=== PATIENT | male | born 1945 | race Caucasian/White ===

== ENCOUNTER 2024-02-04 20:49 | Emergency (ER) | payer MEDICARE, SELFPAY ==
[2024-02-04] VITALS (13 sets, daily range): BP systolic 155; BP diastolic 91; PULSE 73–86; RESP 15–26; TEMP 36.2; O2SAT 95–100
--- NOTE | ~2024-02-04 | XR_ITS ---
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 RESULT: Lines, tubes, and devices: None. Lungs and pleura: Streaky bibasilar scar/atelectasis, otherwise clear. Cardiomediastinal silhouette: Unremarkable. Other: No acute osseous or upper abdominal finding. IMPRESSION: No acute cardiopulmonary process. Reviewed, dictated and finalized at location K. AND DIE DESIGNER
--- NOTE | 2024-02-04 20:51 | ECG_ITS ---
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
[2024-02-04] MEDS: ASPIRIN 81 MG CHEWABLE TABLET 324 MG PO (21:02)
[2024-02-04 21:34] LABS: Basophils Absolute Auto 0.1 K/mm3 (0.0-0.1); Basophils Percent Auto 0.5 % (0.2-1.2); Eosinophils Absolute Auto 0.3 K/mm3 (0-0.3); Eosinophils Percent Auto 2.9 % (0-4.4); Hematocrit 42.9 % (42.0-52.0); Hemoglobin 13.8 g/dL (14.0-18.0); Immature Granulocyte Absolute 0.07 K/mm3 (0.00-0.031); Immature Granulocyte Percent A 0.6 % (0-0.5); Lymphocytes Absolute Auto 2.29 K/mm3 (0.9-3.2); Lymphocytes Percent Auto 21.2 % (18.3-44.2); Mean Corpuscular HGB Conc 32.2 g/dl (32-36); Mean Corpuscular Hemoglobin 29.4 pg (26-34); Mean Corpuscular Volume 91.5 fl (80-100); Mean Platelet Volume 10.3 fl (7.4-10.4); Monocytes Absolute Auto 1.4 K/mm3 (0.1-0.6); Monocytes Percent Auto 12.7 % (2.6-8.5); Neutrophils Absolute Auto 6.7 K/mm3 (1.3-6.7); Neutrophils Percent Auto 62.1 % (45.5-73.1); Platelet Count Result 276 k/mm3 (150-375); Red Blood Count 4.69 M/mm3 (4.6-6.20); Red Cell Distribution Width 14.4 % (11.5-14.5); White Blood Count 10.8 K/mm3 (4.5-10.0)
[2024-02-04 21:45] LABS: Alanine Aminotransferase 23 U/L (6-50); Albumin Level 4.1 g/dL (3.5-5.1); Alkaline Phosphatase 103 U/L (38-126); Anion Gap 8 mmol/L (4-12); Aspartate Amino Transferase 28 U/L (17-59); Bilirubin,Total 0.6 mg/dL (0.2-1.3); Blood Urea Nitrogen 24 mg/dL (9-20); Calcium 9.1 mg/dL (8.4-10.2); Carbon Dioxide 24 mmol/L (22-30); Chloride 105 mmol/L (98-107); Estimated CRCL calculation 54 ml/min; Estimated Glomerular Filt Rate 53; Glucose 197 mg/dL (65-110); Lipase 92 U/L (23-300); Potassium 4.1 mmol/L (3.4-5.0); Sodium 137 mmol/L (137-145)
[2024-02-04 21:47] LABS: Prothrombin Time 13.2 Seconds (11.1-14.7)
[2024-02-04 21:48] LABS: Partial Thromboplastin Time 29.5 Seconds (22.3-36.8)
[2024-02-04 21:56] LABS: Troponin I < 0.012 ng/mL (0.000-0.034)
--- NOTE | 2024-02-04 22:57 | ED.CHESTPAIN ---
HPI - Chest Pain General Chief Complaint: Chest Pain Stated Complaint: chest pain x30 minutes Time Seen by Provider: 02/04/24 22:03 History of Present Illness HPI narrative: This is a 78-year-old male with a past medical history including hypertension, diabetes, diabetic neuropathy. 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 Today presents with chest pain that was sudden onset about 30 minutes prior to arrival. He states it was a uncover any left-sided his chest and reports tingling in his left hand. Started just prior to arrival and he was not doing any exertional or strenuous. He states that the pain slowly diet down is presently gone. No associated back pain, shortness a breath, fever, chills, neck pain, recent injuries or illnesses. States he has had similar episodes happened to him previously but did not last quite as long as today which is why he sought medical evaluation. Related Data Home Medications ?Medication ?Instructions ?Recorded ?Confirmed ?Last Taken ?Type acyclovir 400 mg tablet 400 mg PO BID 07/12/23 07/19/23 Unknown History albuterol sulfate 90 mcg/actuation inhalation 07/12/23 07/19/23 Unknown History aerosol inhaler dapagliflozin propanediol 10 mg 10 mg PO DAILY 07/12/23 07/19/23 Unknown History tablet (Farxiga) doxycycline hyclate 100 mg capsule 100 mg PO DAILY 07/12/23 07/19/23 Unknown History insulin degludec 100 10 unit subcut DAILY 07/12/23 07/19/23 Unknown History unit-liraglutide 3.6 mg/mL(3 mL) subcutaneous pen (Asher 100/3.6) irbesartan 300 1 tablet PO DAILY 07/12/23 07/19/23 Unknown History mg-hydrochlorothiazide 12.5 mg tablet metformin 500 mg tablet 500 mg PO BID 07/12/23 07/19/23 Unknown History metoprolol tartrate 50 mg tablet 25 mg PO BID 07/12/23 07/19/23 Unknown History simvastatin 40 mg tablet 40 mg PO QPM 07/12/23 07/19/23 Unknown History tamsulosin 0.4 mg capsule mg PO 07/12/23 07/19/23 Unknown History B-complex with vitamin C 1 cap PO DAILY 07/19/23 07/19/23 Unknown History cholecalciferol (vitamin D3) 50 50 mcg PO DAILY 07/19/23 07/19/23 Unknown History mcg (2,000 unit) tablet coQ10 (ubiquinol) 100 mg capsule 300 mg PO DAILY 07/19/23 07/19/23 Unknown History (CoQmax Ubiquinol) finasteride 5 mg tablet 5 mg PO DAILY 07/19/23 07/19/23 Unknown History insulin lispro 100 unit/mL 1 sliding scale dose subcut DAILY 07/19/23 07/19/23 Unknown History subcutaneous pen (Admelog SoloStar U-100 Insulin lispro) subcutaneous insulin pump 07/19/23 07/19/23 Unknown History vit C,T-Ya-zajucu-lutein-zeaxan 60 1 cap PO DAILY 07/19/23 07/19/23 Unknown History mg-13.5 mg-15 mg-2 mg-6 mg capsule Allergies Allergy/AdvReac Type Severity Reaction Status Date / Time No Known Allergies Allergy Mild Verified 07/19/23 08:26 Review of Systems Review of Systems: As reviewed above in HPI [facility] Past Medical History Medical History Coronary artery disease BPH (benign prostatic hyperplasia) Diabetic neuropathy Type 2 diabetes mellitus Hyperlipidemia Hypertension Social History Social History Years smoked: 30 Smoking status: Former smoker Alcohol intake: current Alcohol use details: Occasionally Exam Narrative: GENERAL: Obese but overall well-appearing not any acute distress, answers all questions appropriately. HEAD: [Normocephalic, atraumatic.] EYES: [PERRLA and EOMI.] ENT: Nares clear, no rhinorrhea or epistaxis. Mucous membranes moist. NECK: Supple. CHEST: [Clear to auscultation. No respiratory distress.] HEART: [Regular rate and rhythm]. No murmur heard. Strong symmetric pulses with warm extremities 2+ radial and dorsalis pedis pulses. ABDOMEN: [Soft, nondistended], [nontender], [No rigidity or guarding] EXTREMITIES: Normal range of motion. [No edema.] SKIN: Warm, dry, no rash. NEURO: [No focal deficits]. Alert and oriented [x3.] PSYCH: [Normal mood and affect.] Course Vital Signs Vital signs: Vital Signs Temperature 36.2 C L 02/04/24 20:53 Pulse Rate 86 02/04/24 20:53 Respiratory Rate 16 02/04/24 20:53 Blood Pressure 155/91 H 02/04/24 20:53 Pulse Oximetry 100 02/04/24 20:53 Oxygen Delivery Room Air 02/04/24 20:53 Temperature 36.2 C L 02/04/24 20:53 Pulse Rate 70 02/05/24 02:07 Respiratory Rate 21 H 02/05/24 02:07 Blood Pressure 143/87 H 02/05/24 02:07 Pulse Oximetry 94 02/05/24 02:07 Oxygen Delivery Room Air 02/04/24 21:04 MDM - Chest Pain MDM Narrative Medical decision making narrative: 78-year-old male with history of diabetes, hypertension hyperlipidemia. Patient presents today with sudden onset chest discomfort that started 30 minutes prior to arrival and is now resolved without intervention. States he has had similar episodes like this in the past but follows with Cardiology once a year and has had cardiac catheterization recently without any concerns according to him. He otherwise appears well not any acute distress and has normal symmetric pulses and warm extremities without any auscultation concerns and clear lungs throughout. Overall reassuring vital signs without any significant blood pressure concerns, no tachycardia, hypoxia, tachypnea, fever. Given his age and risk factors a cardiac workup with serial troponins, EKG, chest x-ray, CBC CMP and lipase were ordered. He will be observed symptom recurrence and trending of his troponins until disposition made. Workup showed no significant leukocytosis, hemoglobin of 13.8, normal platelets. Negative troponin x2 without any delta. Coagulation studies within normal limits. Normal electrolyte profile, normal renal function panel, LFTs within normal limits. Negative lipase. Glucose slightly elevated 194. No acute cardiopulmonary process. EKG was nonischemic in nature, no ST segment elevation, depressions inversions or flattening. With his negative troponins, normal EKG and resolution of symptoms I believe he can safely discharged and follow up with his PCP and fluid jet cutter operator outpatient. Patient agreeable to this plan of care. Medical Records Data Attestation: I reviewed the patient's medical records. Lab Data Attestation: I reviewed the patient's lab results. 02/04/24 21:28 02/04/24 21:28 Labs: Lab Results 02/04/24 02/04/24 Range/Units 21:28 23:37 WBC 10.8 H (4.5-10.0) K/mm3 RBC 4.69 (4.6-6.20) M/mm3 Hgb 13.8 L (14.0-18.0) g/dL Hct 42.9 (42.0-52.0) % MCV 91.5 (80-100) fl MCH 29.4 (26-34) pg MCHC 32.2 (32-36) g/dl RDW 14.4 (11.5-14.5) % Plt Count 276 (150-375) k/mm3 MPV 10.3 (7.4-10.4) fl Immature Gran % (Auto) 0.6 H (0-0.5) % Neut % (Auto) 62.1 (45.5-73.1) % Lymph % (Auto) 21.2 (18.3-44.2) % [place] % (Auto) 12.7 H (2.6-8.5) % Eos % (Auto) 2.9 (0-4.4) % Baso % (Auto) 0.5 (0.2-1.2) % Lymph # (Auto) 2.29 (0.9-3.2) K/mm3 [place] # (Auto) 1.4 H (0.1-0.6) K/mm3 Eos # (Auto) 0.3 (0-0.3) K/mm3 Baso # (Auto) 0.1 (0.0-0.1) K/mm3 Abs Immat Gran (auto) 0.07 H (0.00-0.031) K/mm3 Absolute Neuts (auto) 6.7 (1.3-6.7) K/mm3 Absolute Nucleated RBC 0.000 (0.0-0.012) K/mm3 Nucleated RBC % 0.0 (0.0-0.2) % PT 13.2 (11.1-14.7) Seconds INR 1.0 APTT 29.5 (22.3-36.8) Seconds Sodium 137 (137-145) mmol/L Potassium 4.1 (3.4-5.0) mmol/L Chloride 105 (98-107) mmol/L Carbon Dioxide 24 (22-30) mmol/L Anion Gap 8 (4-12) mmol/L BUN 24 H (9-20) mg/dL Creatinine 1.30 (0.7-1.3) mg/dL Estim Creat Clear Calc 54 ml/min Estimated GFR 53 L (59 - ) Glucose 197 H (65-110) mg/dL Calcium 9.1 (8.4-10.2) mg/dL Total Bilirubin 0.6 (0.2-1.3) mg/dL AST 28 (17-59) U/L ALT 23 (6-50) U/L Alkaline Phosphatase 103 (38-126) U/L Troponin I < 0.012 < 0.012 (0.000-0.034) ng/mL Total Protein 8.0 (6.3-8.2) g/dL Albumin 4.1 (3.5-5.1) g/dL Lipase 92 (23-300) U/L Imaging Data Attestation: I personally reviewed and interpreted this imaging study as follows: My impression: Impressions Chest X-Ray 02/04/24 21:59 IMPRESSION: No acute cardiopulmonary process. ECG Data EKG #1: Attestation: I personally reviewed and interpreted this ECG as follows: ECG completion date: 02/04/24 ECG completion time: 23:36 Prior ECG tracings: available for review Interpretation: Normal sinus rhythm, no ST segment elevations, depressions inversions or flattening. Normal rate rhythm an axis, no ectopy, QRS of 94, QTC 4 4, MO interval 231. Overall sinus rhythm without any acute changes from baseline. No evidence of ischemia. Discharge Plan Discharge Clinical Impression: Atypical chest pain Patient Disposition: Home, Self-Care Condition: Stable Instructions: Antibiotic Form, Chest Pain (ED) Additional Instructions: Your cardiac workup was reassuring with no active or ongoing cardiac damage based on your labs. Your x-ray does not have any signs of infection or injury and you can Follow-up with your fluid jet cutter operator on outpatient basis. if you have any recurrence or persistent pain please seek re-evaluation at that time. Patient Language: Romanian Prescriptions: No Action tamsulosin 0.4 mg capsule PO metformin 500 mg tablet 500 mg PO BID doxycycline hyclate 100 mg capsule 100 mg PO DAILY irbesartan-hydrochlorothiazide 300-12.5 mg tablet 1 tablet PO DAILY acyclovir 400 mg tablet 400 mg PO BID simvastatin 40 mg tablet 40 mg PO QPM albuterol sulfate 90 mcg/actuation HFA aerosol inhaler inhalation metoprolol tartrate 50 mg tablet 25 mg PO BID Rx Instructions: Take 2 25mg in am then 1 25mg in pm dapagliflozin propanediol [Farxiga] 10 mg tablet 10 mg PO DAILY Xultophy 100/3.6 100 unit-3.6 mg /mL (3 mL) insulin pen 10 unit subcut DAILY insulin lispro [Admelog SoloStar U-100 Insulin] 100 unit/mL insulin pen 1 sliding scale dose subcut DAILY cholecalciferol (vitamin D3) 50 mcg (2,000 unit) tablet 50 mcg PO DAILY finasteride 5 mg tablet 5 mg PO DAILY coQ10 (ubiquinol) [CoQmax Ubiquinol] 100 mg capsule 300 mg PO DAILY B-complex with vitamin C Capsule 1 cap PO DAILY vit C,Q-Fx-zvalp-lutein-zeaxan 60 mg-13.5 mg- 15 mg-2 mg-6 mg capsule 1 cap PO DAILY (DME) subcutaneous insulin pump Misc See Rx Instructions .Route Rx Instructions: As directed Follow-up/Referrals: Serg,Ronaldo Cortez MD [Primary Care Provider] - Time of Disposition: 01:42 Quality HEART score for chest pain patients History: slightly suspicious ECG: normal Age: > or = to 65 years Risk factors: 1 or 2 risk factors Troponin: < or = to 1x normal limit Heart score: 3
--- NOTE | 2024-02-04 23:33 | ECG_ITS ---
Test Date: 2024-02-04 23:36:38 Measurements Intervals [place] Rate: 73 P: 54 MN: 231 QRS: 46 QRSD: 94 T: 78 QT: 366 QTc: 404 Interpretive Statements SINUS RHYTHM WITH FIRST DEGREE AV BLOCK NONSPECIFIC T-WAVE ABNORMALITY Compared to ECG 02/04/2024 20:59:49 No significant changes Electronically Signed On 02-05-2024 12:02:28 INTEGRITY DIRECTOR by Aryan Campos M.D.
[2024-02-05] VITALS (8 sets, daily range): BP systolic 143; BP diastolic 87; PULSE 70–74; RESP 21–23; O2SAT 94–96
[2024-02-05 00:19] LABS: Troponin I < 0.012 ng/mL (0.000-0.034)
--- OUTSIDE RECORDS SUMMARY | 2024-02-10 01:42 | XMS_ITS | Data Portability ---
Author Organization [facility], Main Office Address [address] [place] [address] Care Team Providers Care Credit Portfolio Advisor Name Role Phone JASEN HUERTAS Primary Care Provider [phone] Assessment No assessment recorded. Plan of Treatment Reminders Order Date Submit Date Provider Last Modified By Organization Details Last Modified Time Details Appointments None recorded. Lab None recorded. Referral sleep medicine referral - Established PAP for 30 years, new machine 12/16/22 needs compliance no issues 2022 023 [email or web address] 25 Ghislaine Izquierdo, [address] [facility] [address], [place], [address], 10:08:56 Procedures None recorded. Surgeries None recorded. Imaging None recorded. Medication Orders None recorded. Patient TargetsNo targets recorded. Patient InstructionsNo instructions recorded. Reason for Referral Sleep Medicine Referral for Obstructive sleep apnea syndrome Established PAP for 30 years, new machine 12/16/22 needs compliance no issues Referring Physician: Lexis Mensah, Pulmonary Disease, Encounter Date: 01/03/2023 Results Created Date Observation Date Name Description Value Unit Range Abnormal Flag Note LastModifiedBy Organization Detail LastModifiedTime 06/18/1912/03/2009 sleep study , diagn ostic (PROC ) No observ ation record ed. [id number] [facility] [address], [place], [address], 04/20/2022 02:46:47 06/18/19 22 05/04/2021 CPAP compl iance * No observ ation record ed. [id number] Not Available 04/20/2022 02:46:47 Result Notes None recorded. Problems Name Problem SNOMED Code Status Onset Date Resolution Date Notes Provider Name and Address Organization Details Recorded Time Body mass index 30+ - obesity [id number] Active [address] [facility] 3 02:39:47 Obstructive sleep apnea syndrome 07357329 Active Not Available [facility] 3 02:39:47 Problem Notes None recorded. Procedures Surgical History None recorded. Imaging Results Imaging Date Name Status LastModified by Organiz ation Details LastModified Time 12/03/2009 sleep study, diagnostic (PROC) completed [id number] [facility] [address], [place], [address], 04/20/2022 02:46:47 05/04/2021 CPAP compliance* completed [id number] Information not available 04/20/2022 02:46:47 Procedure Notes None recorded. Medical Equipment None Reported. Medications Name Sig Start Date Stop Date Status Note LastModified by Organization Details LastModified Time metformin 500 mg tablet TAKE 1 TABLET BY MOUTH TWICE A DAY WITH MEALS active Not Available Not Available No t Available doxycycline hyclate 100 mg capsule PLEASE SEE ATTACHED FOR DETAILED DIRECTION S active Not Available Not Available No t Available irbesartan 150 mg-hydrochl orothiazide 12.5 mg tablet 05/20 completed Not Available Not Available Not Available azithromyci n 250 mg tablet active Not Available Not Available Not Available valacyclovi r 1 gram tablet 11/08 completed Not Available Not Available Not Available hydrocodone 5 mg-acetamin ophen 325 mg tablet TK 1 TO 2 T PO Q 4 TO 6 H PRN FOR PAIN 05/14 completed Not Available Not Available Not Available Anucort-HC 25 mg suppository active Not Available Not Available Not Available acyclovir 400 mg tablet TAKE 1 TABLET (400 MG TOTAL) BY MOUTH 2 TIMES A DAY active Not Available Not Available No t Available simvastatin 40 mg tablet TAKE 1 TABLET BY MOUTH EVERY DAY AT NIGHT active Not Available Not Available No t Available ketorolac 0.5 % eye drops ADMINISTE R 1 DROP IN OPERATIVE EYE FOUR TIMES DAILY X2 WEEKS THEN TWICE DAILY X2 WEEKS AND STOP. active Not Available Not Available No t Available alprazolam 0.25 mg tablet 05/17 completed Not Available Not Available Not Available prednisolon e acetate 1 % eye drops,suspe nsion ADMINISTE R 1 DROP IN OPERATIVE EYE FOUR TIMES DAILY X2 WEEKS THEN 1 DROP TWICE DAILY X2 WEEKS AND STOP. active Not Available Not Available No t Available Nitrostat 0.4 mg sublingual tablet active Not Available Not Available Not Available tamsulosin 0.4 mg capsule TAKE 1 CAPSULE BY MOUTH EVERYDAY AT BEDTIME active Not Available Not Available No t Available benzonatate 100 mg capsule 11/08 completed Not Available Not Available Not Available cephalexin 500 mg capsule 05/20 completed Not Available Not Available Not Available simvastatin 20 mg tablet 05/14 completed Not Available Not Available Not Available WelChol 625 mg tablet active Not Available Not Available No t Available irbesartan 300 mg-hydrochl orothiazide 12.5 mg tablet TAKE 1 TABLET BY MOUTH EVERY DAY active Not Available Not Available No t Available metoprolol tartrate 50 mg tablet TAKE 2 TABLETS (100 MG TOTAL) BY MOUTH EVERY MORNING AND 1 TABLET (50 MG TOTAL) DAILY WITH LUNCH. active Not Available Not Available No t Available gabapentin 100 mg capsule active Not Available Not Available Not Available cefuroxime axetil 500 mg tablet active Not Available Not Available No t Available methylpredn isolone 4 mg tablets in a dose pack FPD 05/20 completed Not Available Not Available Not Available albuterol sulfate HFA 90 mcg/actuati on aerosol inhaler INHALE 2 PUFFS BY MOUTH EVERY 4 HOURS NEEDED FOR WHEEZING OR SHORTNESS OF BREATH active Not Available Not Available No t Available metformin ER 500 mg tablet,exte nded release 24 hr active Not Available Not Available Not Available finasteride 5 mg tablet active Not Available Not Available Not Available insulin lispro (U-100) 100 unit/mL subcutaneou s pen PLEASE SEE ATTACHED FOR DETAILED DIRECTION S active Not Available Not Available No t Available moxifloxaci n 0.5 % eye drops active Not Available Not Available Not Available valsartan 320 mg-hydrochl orothiazide 25 mg tablet 05/17 completed Not Available Not Available Not Available valsartan 320 mg-hydrochl orothiazide 12.5 mg tablet active Not Available Not Available Not Available BD Ultra-Fine Short Pen Needle 31 gauge x 16 USE WITH INSULIN PEN UP TO QID active Not Available Not Available No t Available CoQ10 SG 100 100 mg-100 unit capsule Take 1 capsule every day by oral route as directed. 2015 active Not Available Not Available Not Avai lable peg 3350-electr olytes 236 gram-22.74 gram-6.74 gram-5.86 gram solution TAKE DIRECTED. OFFICE HAS MAILED OUT INSTRUCTI ONS FOR YOUR COLONOSCO PY PREP. active Not Available Not Available No t Available Lantus Solostar U-100 Insulin 100 unit/mL (3 mL) subcutaneou s pen active Not Available Not Available Not Available Vitamin D3 50 mcg (2,000 unit) capsule Take 1 capsule every day by oral route as directed. 2015 active Not Available Not Available Not Avai lable OneTouch Verio test strips active Not Available Not Available Not Available Kale Chewable Low Dose Aspirin 81 mg tablet Chew 1 tablet every day by oral route as directed. 05/17 completed Not Available Not Available Not Available Victoza 3-Fortunato 0.6 mg/0.1 mL (18 mg/3 mL) subcutaneou s pen injector 05/25 completed Not Available Not Available Not Available Virtussin AC 10 mg-100 mg/5 mL oral liquid active Not Available Not Available Not Available Farxiga 10 mg tablet TAKE 1 TABLET BY MOUTH EVERY DAY active Not Available Not Available No t Available Farxiga 5 mg tablet active Not Available Not Available No t Available Invokamet 50 mg-1,000 mg tablet 11/08 completed Not Available Not Available Not Available Invokamet 150 mg-1,000 mg tablet active Not Available Not Available Not Available Contrave 8 mg-90 mg tablet,exte nded release TK 2 TS PO BID QAM AND QPM active Not Available Not Available No t Available Trulicity 1.5 mg/0.5 mL subcutaneou s pen injector 11/08 completed Not Available Not Available Not Available Xultophy 100/3.6 100 unit-3.6 mg/mL (3 mL) subcutaneou s insulin pen INJECT 50 UNITS INTO THE SKIN DAILY active Not Available Not Available No t Available Synjardy XR 25 mg-1,000 mg tablet, extended release active Not Available Not Available Not Available Fluzone High-Dose (PF) 180 mcg/0.5 mL intramuscul ar syringe active Not Available Not Available N ot Available Shingrix (PF) 50 mcg/0.5 mL intramuscul ar suspension, kit active Not Available Not Available Not Available Fluzone High-Dose 5835-6981 (PF) 180 mcg/0.5 mL intramuscul ar syringe ADM 0.5ML IM UTD active Not Available Not Available No t Available BinaxNOW COVID-19 Ag Self Test kit Use as Directed on the Package active Not Available Not Available No t Available Paxlovid 300 mg (150 mg x 2)-100 mg tablets in a dose pack TAKE 2 TABLETS (NIRMATRE LVIR) AND TAKE 1 TABLET (RITONAVI R) BY MOUTH TWICE A DAY FOR 5 DAYS active Not Available Not Available No t Available Vitals Date Recorded Body mass index (BMI) Body height Oxygen saturation Oxygen saturation in Arterial blood by Pulse oximetry Heart rate Body temperature Body weight Provider Name and Address Organization Details Last Updated DateTime 1 35 kg/m2 180.34 cm 97 % 97 % 71 /min 97.5 [degF] 160256. 68 g Not Available [facility] 3 02:38:27 Date Recorded Body mass index (BMI) Body height Oxygen saturation Oxygen saturation in Arterial blood by Pulse oximetry Heart rate Body temperature Body weight Systolic blood pressure Diastolic blood pressure Provider Name and Address Organization Details Last Updated DateTime 2 37.4 kg/m2 180.34 cm 94 % 94 % 79 /min 97.2 [degF] 057174. 76 g 128 mm[Hg] 62 mm[Hg] Not Available [facility] 3 02:38:26 Date Recorded Body mass index (BMI) Body height Oxygen saturation Oxygen saturation in Arterial blood by Pulse oximetry Heart rate Body temperature Body weight Systolic blood pressure Diastolic blood pressure Provider Name and Address Organization Details Last Updated DateTime 3 36.7 kg/m2 180.34 cm 96 % 96 % 79 /min 96.4 [degF] 921056. 79 g 150 mm[Hg] 64 mm[Hg] Not Available [facility] 3 02:38:26 Date Recorded Body height Body mass index (BMI) Body weight Heart rate Oxygen saturation Oxygen saturation in Arterial blood by Pulse oximetry Systolic blood pressure Diastolic blood pressure Provider Name and Address Organization Details Last Updated DateTime 3 180.34 cm 35.6 kg/m2 238316. 05 g 75 /min 96 % 96 % 132 mm[Hg] 58 mm[Hg] Supriya Roque S [place] Hopela [facility] 3 10:00:20 Date Recorded Body height Body temperature Provider N mainor and Address Organization Details Last Updated DateTime 01/03/2023 180.34 cm 97.5 [degF] Audrey Cooper MA [facility] Hopela [facility] 01/03/2023 09:41:45 Date Recorded Body mass index (BMI) Body weight Heart rate Oxygen saturation Oxygen saturation in Arterial blood by Pulse oximetry Systolic blood pressure Diastolic blood pressure Provider Name and Address Organization Details Last Updated DateTime 3 37 kg/m2 936925. 98 g 87 /min 95 % 95 % 130 mm[Hg] 70 mm[Hg] Rosalia Carter MA [facility] Hopela [facility] 3 09:49:38 Social History Question Answer Notes LastModified by Organizat ion Details LastModified Time Tobacco Smoking Status Former Smoker quit 1990 Not Available [facility] 04/20/2022 02:33:40 What Is Your Level Of Alcohol Consumption? Occasional [id number] Information not available 04/20/2022 What Is Your Level Of Caffeine Consumption? Occasional [id number] Information not available 04/20/2022 How Much Tobacco Do You Chew? None [id number] Information not available 04/20/2022 In The 14 Days Before Symptom Onset, Have You Had Close Contact With A Laboratory-confir med COVID-19 While That Case Was Ill? Yes [id number] Information not available 04/20/2022 In The 14 Days Before Symptom Onset, Have You Had Close Contact With A Person Who Is Under Investigation For COVID-19 While That Person Was Ill? Yes [id number] Information not available 04/20/2022 Which Illicit Or Recreational Drugs Have You Used? None [id number] Information not available 04/20/2022 Do You Or Have You Ever Used E-cigarettes Or Vape? Never Used Electronic Cigarettes [id number] Information not available 04/20/2022 What Is Your Occupation? Retired [id number] Information not available 04/20/2022 When Did You Quit Smoking? 16+yearssincel astcigarette [id number] Information not available 04/20/2022 What Was The Date Of Your Most Recent Tobacco Screening? 05/20/2020 [id number] Information not available 04/20/2022 Do You Have Any Pets? No [id number] Information not available 04/20/2022 At What Age Did You Start Smoking Tobacco? 16 [id number] Information not available 04/20/2022 Do You Or Have You Ever Used Smokeless Tobacco? Never Used Smokeless Tobacco [id number] Information not available 04/20/2022 Do You Use Any Illicit Or Recreational Drugs? No [id number] Information not available 04/20/2022 Sex: Unknown Functional Status None recorded. Mental Status None recorded. Family History Nothing Reported. Medical History No medical history recorded. Immunizations Vaccine Type Date Status Note Provider Nam e and Address Organization Details Recorded Time COVID-19, mRNA, LNP-S, PF, 30 mcg/0.3 mL dose [address] [facility] 04/20/2022 02:46:21 COVID-19, mRNA, LNP-S, PF, 30 mcg/0.3 mL dose [address] [facility] 04/20/2022 02:46:22 influenza, unspecified formulation [address] [facility] 04/20/2022 02:46:22 Past Encounters Encounter ID Performer Location Encounter Start Date Encounter Closed Date Diagnosis/Indication Diagnosis SNOMED-CT Code Diagnosis ICD10 Code [id number] [facility] [address] [place] [address] 05/20/2020 00:00:00 05/20/2020 14:22:48 [id number] [facility] [address] [place] [address] 05/05/2021 00:00:00 05/05/2021 15:32:14 [id number] [facility] [address] [place] [address] 03/30/2022 00:00:00 03/30/2022 10:51:53 [id number] INES Quiroz [facility] [address] [place] [address] 11/29/2022 09:48:47 11/29/2022 11:07:16 Obstructive sleep apnea syndrome 95209568 G47.33 [id number] Lexis Rodrick [facility] [address] [place] [address] 01/03/2023 09:41:01 01/03/2023 10:07:30 Obstructive sleep apnea syndrome 12110903 G47.33 Body mass index 30+ - obesity 683590004 Z68.35 Health Concerns Section Related Observation LastModified by Organization Detai ls LastModified Time None Recorded Concern Status LastModified by Organization Details LastModified Time None Recorded Advance Directives Directive None Recorded Payers Encounter Date Sequence Insurance Name Policy Number Policy Napoles Covered Member ID Napoles Member ID Guarantor Name 11/29/2022 1 [employer] (MEDICARE REPLACEMENT PPO) [id number] Ayden Danielle [id number] Ayden Santos 01/03/2023 1 [employer] (MEDICARE REPLACEMENT PPO) [id number] Ayden Sparn [id number] Ayden Santos Notes Date Note Type Note Provider Name and Address Organization Details Recorded Time 11/29/2022 text/html Mr Santos present s today to follow up on PETE.He continues to sleep well at night.Nocturia 1-2x nightly, unchangedEndorses mild xerostomiaNo morning headaches or aerophagiaBedtime is around 2230, falls asleep easilyNo GERD or sinus congestion.Does not wake due to mask leak or discomfortHe is due for a new machine this yearEnergy levels are fair Lexis Mensah [facility] [address], [place], [address], [place] [facility] [place] [facility] 11/29/2022 14:25:55 01/03/2023 text/html Mr Santos present s today to follow up on PETE and new PAP machineHe continues to sleep well at night and has not noticed any changes in sleep patternsNocturia 1-2x nightly, unchangedEndorses mild xerostomia, he does feel like the water chamber is smaller in this machine and now has to fill this nightly.No morning headaches or aerophagiaBedtime is around 2230, falls asleep easilyNo GERD or sinus congestion.Does not wake due to mask leak or discomfortEnergy levels are fairReviewed medical history, no other changes since last OV Lexis Mensah, [facility] [address] [address], [place], [address], [place] [facility] 01/03/2023 11:29:07
--- OUTSIDE RECORDS SUMMARY | 2024-02-10 01:42 | XMS_ITS | Encounter Summary ---
Author Organization [facility] Healthcare Address [address] [place] [address] Care Team Providers Care Utility Tractor Operator Name Role Phone Ronaldo Ulrich MD Primary Care Provider + Reason for Visit * Reason Onset Date Comments Medical Question/Miscellaneous 11/03/2023 Encounter Details Date Type Department Care Team (Late st Contact Info) Description 11/03/2023 Telephone [facility] [address] [place] [address] Ronaldo Ulrich MD [address] [place], [place] [id number] Medical Question/Miscellaneous Social History Tobacco Use Types Packs/Day Years Used Date Smoking Tobacco: Former Cigarettes 1 35 1 948 - 1983 Smokeless Tobacco: Never Comments:Smoking History Pac ks/day: 1 Packs Alcohol Use Standard Drinks/Week Comments Yes 0 (1 standard drink = 0.6 oz pur e alcohol) AUDIT-C Answer Date Recorded Q1: How often do you have a drink containing alcohol? Never 09/27/2023 Q2: How many drinks containi ng alcohol do you have on a typical day when you are drinking? Patient does not drink Q3: How often do you have si x or more drinks on one occasion? 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 * Telephone Encounter - Nena Jackson - 11/03/2023 3:02 PM CDT Caller???s Concern: Received call from Ashley Hawkinsradar signal processing engineer) [employer] inquiring if the chart notes have been sent that has been requested. See encounter notes from 10.10.23 Please call and advise documented in this encounter Plan of Treatment Not on file documented as of this encounter Visit Diagnoses Not on filedocumented in this encounter Care Teams Utility Tractor Operator Relationship Specialty Start Date End Date Ronaldo Ulrich MD [address] [place] [address] PCP - General Internal Medicine 01/18/21 documented as of this encounter
--- OUTSIDE RECORDS SUMMARY | 2024-02-10 01:42 | XMS_ITS | Encounter Summary ---
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 Gender Identity Not on file Sexual Orientation Not on file 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 Not on file documented as of this encounter Plan of Treatment Not on file documented as of this encounter Procedures Procedure Name Priority Date/Time Associated Diagnosis Comments SCAN - OTHER ORDERS 12/01/2023 9:45 PM CDT documented in this encounter Results * SCAN - OTHER ORDERS (12/01/2023 9:45 PM CDT) us Provider Scanning Final Result documented in this encounter Visit Diagnoses Not on filedocumented in this encounter Care Teams Quiller Tender Relationship Specialty Start Date End Date Ronaldo Ulrich MD [address] [place] [address] PCP - General Internal Medicine 01/18/21 documented as of this encounter
--- OUTSIDE RECORDS SUMMARY | 2024-02-10 01:42 | XMS_ITS | Clinical Summary ---
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 Name Role Phone Ronaldo Ulrich MD Primary Care Provider + Allergies Active Allergy Reactions Criticality Noted Date Comments Royce Inhibitors Cough Low Amlodipine Edema Medium Medications coenzyme Q10 (COQ-10) 100 mg capsule take 3 by Oral route every evening 0 0 7 Active cholecalciferol (VITAMIN D-3) 2,000 unit capsule Take 1 capsule (2,000 Units total) by mouth daily Active blood glucose diagnostic (ONETOUCH VERIO) strip smbg bid ac 100 each 11 9 Active aspirin 81 mg chewable tablet Take 1 tablet (81 mg total) by mouth daily 30 tablet 11 1 Active flash glucose sensor (FreeStyle Erick 2 Sensor) kitIndications:t ype 2 diabetes mellitus Change sensor every two weeks. 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) Use daily 1 each 2 Active finasteride (PROSCAR) 5 mg tabletIndication s:Benign prostatic hyperplasia without lower urinary tract symptoms Take 1 tablet (5 mg total) by mouth daily 90 tablet 1 3 Active simvastatin (ZOCOR) 40 mg tabletIndication s: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) Take 1 tablet (40 mg total) by mouth nightly 90 tablet 1 4 Active metFORMIN (GLUCOPHAGE) 500 mg tabletIndication s:Type 2 diabetes mellitus with other circulatory complication, with long-term current use of insulin (HCC) Take 1 tablet (500 mg total) by mouth 2 (two) times a day with meals 180 tablet 1 4 Active tamsulosin (FLOMAX) 0.4 mg extended release capsuleIndicatio ns:Benign prostatic hyperplasia without lower urinary tract symptoms Take 1 capsule (0.4 mg total) by mouth nightly 90 capsule 1 4 Active insulin degludec-liraglu tide (Xultophy 100/3.6) 100 unit-3.6 mg /mL (3 mL) insulin pen penIndications:T ype 2 diabetes mellitus with circulatory disorder (HCC) INJECT 50 UNITS INTO THE SKIN DAILY 45 mL 1 4 Active dapagliflozin propanediol (FARXIGA) 10 mg tabletIndication s:Type 2 diabetes mellitus with other circulatory complication, with long-term current use of insulin ([facility]) TAKE 1 TABLET BY MOUTH EVERY DAY 90 tablet 1 4 Active pen needle, diabetic 31 gauge x 07/05 needle 1 each by other route 4 (four) times a day Use to inject 1-4 times daily as directed. 400 each 1 4 Active acyclovir (ZOVIRAX) 400 mg tablet TAKE 1 TABLET (400 MG TOTAL) BY MOUTH 2 TIMES A DAY 180 tablet 1 4 Active metoprolol tartrate (LOPRESSOR) 50 mg immediate release tabletIndication s:Hypertensive heart disease without heart failure,Coronary artery disease involving iliamna coronary artery of iliamna heart without angina pectoris TAKE 2 TABLETS (100 MG TOTAL) BY MOUTH EVERY MORNING AND 1 TABLET (50 MG TOTAL) DAILY WITH LUNCH. 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 Can not use propranolol because he is already on metoprolol. Discussed treatment with primidone. He does not want to start medication at this time. Assessment & Plan (09/12/2022 10:34 AM CDT): Does not happen often. Will observe Diabetic nephropathy associa cecille with type 2 diabetes mellitus 11/09/2020 Assessment & Plan (09/26/2023 7:16 AM CDT): Elevated urine microalbumin with preserved renal function. Continue irbesartan hydrochlorothiazide and Farxiga Assessment & Plan (03/20/2023 1:35 PM NIGHT NURSE): Elevated urine microalbumin with preserved renal function. Continue irbesartan hydrochlorothiazide at and Farxiga Assessment & Plan (09/07/2022 11:23 AM CDT): Elevated urine microalbumin with preserved renal function. Continue irbesartan hydrochlorothiazide at and Farxiga Assessment & Plan (02/24/2022 12:51 PM NIGHT NURSE): Elevated urine microalbumin with preserved renal function. Continue irbesartan hydrochlorothiazide at and Farxiga Assessment & Plan (08/19/2021 7:22 AM CDT): Urine microalbumin remains elevated. Preserved renal function. Continue irbesartan hydrochlorothiazide and Farxiga for renal protection Assessment & Plan (11/09/2020 8:51 AM CDT): Urine microalbumin is elevated. Preserved renal function. Continue irbesartan hydrochlorothiazide for renal protection. Unable to tolerate Farxiga secondary to side effects. Benign prostatic hyperplasia without lower urinary tract symptoms 11/05/2020 Assessment & Plan (09/26/2023 7:15 AM CDT): Stable on finasteride Assessment & Plan (03/20/2023 1:34 PM NIGHT NURSE): Stable on finasteride Assessment & Plan (09/07/2022 11:23 AM CDT): Stable on finasteride Assessment & Plan (02/24/2022 12:54 PM NIGHT NURSE): Stable on finasteride Assessment & Plan (08/19/2021 7:22 AM CDT): Stable on finasteride Assessment & Plan (02/10/2021 12:20 PM NIGHT NURSE): Stable on finasteride Assessment & Plan (11/05/2020 12:15 PM CDT): Stable on finasteride Diabetic peripheral neuropat hy associated with type 2 diabetes mellitus ([facility]) 09/05/2019 Assessment & Plan (09/26/2023 7:15 AM CDT): Hemoglobin A1c is increased.. Continue metformin, Humalog, Farxiga, and Xultophy. Stress ADA diet Neuropathy controlled without medication Assessment & Plan (03/20/2023 1:34 PM NIGHT NURSE): Hemoglobin A1c is stable. Continue metformin, Humalog, Farxiga, and Xultophy Assessment & Plan (09/07/2022 11:23 AM CDT): Hemoglobin A1c is stable. Continue metformin, Humalog, Farxiga, and Xultophy Assessment & Plan (02/24/2022 12:52 PM NIGHT NURSE): Hemoglobin A1c is stable. Continue metformin, Humalog, Farxiga, and Xultophy Assessment & Plan (08/19/2021 7:21 AM CDT): Hemoglobin A1c is stable. Continue metformin, Humalog, Farxiga, and Xultophy. Neuropathy controlled with gabapentin Assessment & Plan (02/10/2021 12:19 PM NIGHT NURSE): Hemoglobin A1c is slowly improving on metformin, Humalog, and Xultophy. Neuropathy controlled with gabapentin Assessment & Plan (11/05/2020 12:12 PM CDT): Hemoglobin A1c slowly improving on metformin and Humalog. Started on gabapentin at bedtime in August for worsening neuropathy. Assessment & Plan (09/17/2020 5:26 PM CDT): Worsening neuropathy with nighttime symptoms. Start gabapentin 100-300 mg at bedtime. Discussed that improving blood sugar control would decrease neuropathy. Assessment & Plan (05/09/2020 8:49 AM CDT): Neuropathy improved with lower blood sugars Assessment & Plan (04/20/2020 5:37 PM NIGHT NURSE): Numbness and tingling in the feet bilaterally, worse at night. Protective sensation is still intact by monofilament. Reviewed diabetic foot care Assessment & Plan (11/28/2019 2:18 PM CDT): Patient is reporting pins and needles in his feet. He had a special inserts for his shoes but he said did not help. Foot exam is normal. Discussed the importance of controlling blood sugars. Assessment & Plan (09/05/2019 6:27 PM CDT): Early diabetic neuropathy with paresthesias. Sensation to monofilament is intact. He notes that he has less sensation in his feet and sometimes has a pins and needles feeling. Discussed importance of controlling blood sugars to prevent increased neuropathy. Obstructive sleep apnea 03/07/2019 Overview (03/07/2019): Sleep apnea Assessment & Plan (09/26/2023 7:15 AM CDT): Uses CPAP nightly and benefits from it Assessment & Plan (03/20/2023 1:34 PM NIGHT NURSE): Uses CPAP nightly and benefits from it Assessment & Plan (09/07/2022 11:23 AM CDT): Uses CPAP nightly and benefits from it Assessment & Plan (02/24/2022 12:53 PM NIGHT NURSE): Uses CPAP nightly and benefits from it Assessment & Plan (08/19/2021 7:25 AM CDT): Uses CPAP nightly and benefits from it Assessment & Plan (02/10/2021 12:19 PM NIGHT NURSE): Uses CPAP nightly and benefits from it Assessment & Plan (11/09/2020 9:18 AM CDT): Uses CPAP nightly and benefits from it Assessment & Plan (11/28/2019 2:20 PM CDT): encourage to fu pulmonary for sleep evaluation as scheduled encourage to use cpap as rx education risk benefits side affects of nonadherance Assessment & Plan (09/05/2019 6:09 PM CDT): Continue CPAP use nightly and for naps. Patient is compliant and has good relief of daytime somnolence with CPAP use. Followed by Sleep Medicine. Assessment & Plan (03/07/2019 10:39 AM NIGHT NURSE): Continue CPAP use nightly and for naps. Patient is compliant and has good relief of daytime somnolence with CPAP use. Followed by Sleep Medicine. Chronic right-sided low back pain without sciati ca 02/07/2019 Assessment & Plan (05/30/2023 10:30 AM CDT): Resolved now. Will observe Assessment & Plan (02/07/2019 5:22 PM NIGHT NURSE): Gentle lumbar stretching exercises. Discussed value of weight loss for decreasing pain. Discussed lumbar x-ray but he would prefer to try stretching 1st. Atherosclerosis of aorta (CMS/HCC) 02/15/2018 Overview (09/05/2019): CT scan 11/21/2018 The abdominal aorta and branches are atherosclerotic. Assessment & Plan (09/26/2023 7:15 AM CDT): Stable on simvastatin and aspirin Assessment & Plan (03/20/2023 1:34 PM NIGHT NURSE): Stable on simvastatin and aspirin Assessment & Plan (09/07/2022 11:22 AM CDT): Stable on simvastatin and aspirin Assessment & Plan (02/24/2022 12:53 PM NIGHT NURSE): Stable on simvastatin aspirin Assessment & Plan (08/19/2021 7:23 AM CDT): Stable on simvastatin and aspirin Assessment & Plan (02/10/2021 12:19 PM NIGHT NURSE): Stable on simvastatin and aspirin Assessment & Plan (11/05/2020 12:13 PM CDT): Stable on simvastatin and aspirin Assessment & Plan (04/17/2020 11:02 AM NIGHT NURSE): Continue risk factor mangement. Assessment & Plan (11/28/2019 2:18 PM CDT): CT scan showed abdominal aortic and branches are atherosclerotic. Discussed the importance of lipid management blood pressure control. Patient is stable. Assessment & Plan (09/05/2019 6:14 PM CDT): Discussed importance of lipid management and blood pressure controlled prevent progression. Assessment & Plan (11/27/2018 7:22 AM CDT): Reviewed all diagnostics surgery referrals laboratory Answer all questions Control dm htn lipid Call for le weakness abdominal pain fatigue Assessment & Plan (06/01/2018 4:06 PM CDT): Reviewed all diagnostics surgery referrals laboratory Answer all questions See orders Assessment & Plan (02/25/2018 1:23 PM NIGHT NURSE): Reviewed all diagnostics surgery referrals laboratory Answer all questions Reviewed all diagnostics surgery referrals laboratory Answer all questions Control dm htn lipid Call for le weakness abdominal pain fatigue Coronary artery disease invo lving iliamna coronary artery of iliamna heart without angina pectoris 04/07/2017 Overview (04/20/2020): Cardiac catheterization 03/02/2015: LEFT MAIN: The vessel demonstrated normal. Mid-LAD artery segment: There is a(n) 30 % stenosis. First diagonal branch segment: There is a(n) 30 % stenosis. CIRCUMFLEX ARTERY: The vessel demonstrated minimal luminal irregularities. RIGHT CORONARY ARTERY: The vessel demonstrated minimal luminal irregularities Assessment & Plan (09/26/2023 7:14 AM CDT): Stable on aspirin, simvastatin, metoprolol, and Farxiga follows with Dr. Jiménez Assessment & Plan (03/20/2023 1:33 PM NIGHT NURSE): Stable on aspirin, simvastatin, metoprolol, and Farxiga follows with Dr. Jiménez Assessment & Plan (09/07/2022 11:22 AM CDT): Stable on aspirin, simvastatin, metoprolol, and Farxiga follows with Dr. Jiménez Assessment & Plan (02/24/2022 12:52 PM NIGHT NURSE): Stable on aspirin, simvastatin, metoprolol, and Farxiga follows with Dr. Jiménez Assessment & Plan (08/19/2021 7:20 AM CDT): Stable on aspirin, simvastatin, metoprolol, Farxiga, and aspirin. Follows with Dr. Jiménez Assessment & Plan (02/10/2021 12:20 PM NIGHT NURSE): Stable on aspirin, simvastatin, metoprolol, and irbesartan hydrochlorothiazide. Follows with Dr. Jiménez Assessment & Plan (11/05/2020 12:13 PM CDT): Stable on aspirin, simvastatin, metoprolol, and irbesartan hydrochlorothiazide. Follows with Dr. Jiménez Assessment & Plan (09/17/2020 3:41 PM CDT): Nonobstructing CAD. No angina. Continue aspirin, statin, ARB and beta-priscilla for secondary prevention. Assessment & Plan (09/03/2020 11:10 AM CDT): Stable, mild coronary disease only, without angina. I made no change in his excellent medical regimen today. I asked him to follow up with me annually, or sooner if needed. I again advised him to diet and exercise regularly. Assessment & Plan (06/19/2020 2:21 PM CDT): Stable CAD. Preserved EF. Patient does not have angina. Continue secondary prevention with aspirin, statin therapy, beta priscilla and ACEI. Followed by Cardiology. Assessment & Plan (04/20/2020 5:35 PM NIGHT NURSE): Nonobstructing CAD. No angina. Preserved EF 60-70%. Continue aspirin, beta priscilla and statin for secondary prevention. Assessment & Plan (11/28/2019 2:18 PM CDT): No angina this time. Continue aspirin ARB, beta-priscilla and statin. Followed by Cardiology. Assessment & Plan (09/05/2019 6:14 PM CDT): Stable. No angina Continue aspirin ARB, beta-priscilla and statin for secondary prevention. Followed by Cardiology. Assessment & Plan (09/04/2019 3:09 PM CDT): Stable, mild coronary disease without angina. I made no change in his excellent medical regimen today. I asked him to follow up with me annually, or sooner if needed. I again advised him to diet and exercise regularly. Assessment & Plan (04/11/2019 5:37 PM NIGHT NURSE): No angina. Stable. Continue aspirin, beta-priscilla, ARB and statin for secondary prevention. Followed by Cardiology. Assessment & Plan (03/07/2019 6:29 PM NIGHT NURSE): Stable, no angina. Continue aspirin, beta-priscilla, ARB and statin for secondary prevention. Followed by Cardiology Assessment & Plan (02/20/2019 3:58 PM NIGHT NURSE): Stable, no angina. Follow-up is scheduled with his room designer. Assessment & Plan (11/27/2018 7:25 AM CDT): Daily weights call for greater than 3 pds weight gain one day 2g sodium diet Encourage balance nutrition and exercise Fu cardiology Assessment & Plan (08/16/2018 3:49 PM CDT): Daily weights call for greater than 3 pds weight gain one day 2g sodium diet Encourage balance nutrition and exercise Fu cardiology Assessment & Plan (06/01/2018 4:06 PM CDT): Daily weights call for greater than 3 pds weight gain one day 2g sodium diet Encourage balance nutrition and exercise Fu cardiology Assessment & Plan (05/02/2018 12:45 PM CDT): Stable, mild coronary disease without angina. I made no change in his excellent medical regimen today. I asked him to follow up with me annually, or sooner if needed. I again advised him to diet and exercise regularly. Assessment & Plan (02/25/2018 1:23 PM NIGHT NURSE): No change Daily weights call for greater than 3 pds weight gain one day 2g sodium diet Encourage balance nutrition and exercise Fu cardiology Assessment & Plan (10/11/2017 8:05 AM CDT): Coronary artery disease is unchanged. Continue current treatment regimen. Dietary sodium restriction. Weight loss. Regular aerobic exercise. Continue current medications. Cardiac status will be reassessed in 3 months see order Fu cardiology. Assessment & Plan (07/05/2017 1:33 PM CDT): Stable Daily weights call for greater than 3 pds weight gain one day 2g sodium diet Encourage balance nutrition and exercise Fu cardiology Assessment & Plan (05/03/2017 1:17 PM CDT): Stable, mild without symptoms. I made no change in his excellent medical regimen today. I asked him to follow up with me annually, or sooner if needed. I again strongly advised him to diet and exercise to lose weight. History of colon polyps 02/21/2017 Overview (11/27/2018): 02/22/10 Dr. Marroquin, polyp, 04/2017 Dr Marroquin many polyps fu q3y Assessment & Plan (09/26/2023 7:17 AM CDT): Due for repeat colonoscopy in December of 2023 Assessment & Plan (03/20/2023 1:34 PM NIGHT NURSE): Due for repeat colonoscopy in December of 2023 Assessment & Plan (09/07/2022 11:24 AM CDT): Due for repeat colonoscopy in 2023 Assessment & Plan (02/24/2022 12:53 PM NIGHT NURSE): Due for repeat colonoscopy in 2023 Assessment & Plan (08/19/2021 7:25 AM CDT): Had colonoscopy by Dr. Schmitt in December of 2020. Recommend repeat colonoscopy in 2023 Assessment & Plan (11/27/2018 7:26 AM CDT): Reviewed all diagnostics surgery referrals laboratory Answer all questions Fu colorectal and gi is not due Assessment & Plan (02/21/2017 9:17 AM NIGHT NURSE): 02/22/10 Dr. Marroquin, polyp, due x 5 years. Patient has scheduled. Class 2 severe obesity due t o excess calories with serious comorbidity and body mass index (BMI) of 37.0 to 37.9 in adult 08/18/2016 Assessment & Plan (09/26/2023 7:17 AM CDT): BMI Follow-up includes: exercise counseling. Assessment & Plan (05/30/2023 10:30 AM CDT): BMI Follow-up includes: exercise counseling. Assessment & Plan (03/20/2023 1:35 PM NIGHT NURSE): BMI Follow-up includes: exercise counseling. Assessment & Plan (09/07/2022 11:24 AM CDT): BMI Follow-up includes: exercise counseling. Assessment & Plan (02/24/2022 12:54 PM NIGHT NURSE): BMI Follow-up includes: exercise counseling. Assessment & Plan (08/19/2021 7:24 AM CDT): BMI Follow-up includes: exercise counseling. Assessment & Plan (02/10/2021 12:16 PM NIGHT NURSE): BMI Follow-up includes: exercise counseling. Assessment & Plan (11/05/2020 12:14 PM CDT): BMI Follow-up includes: exercise counseling. Assessment & Plan (09/17/2020 10:45 AM CDT): BMI Follow-up includes: nutrition counseling, exercise counseling and education provided. Assessment & Plan (06/19/2020 10:13 AM CDT): BMI Follow-up includes: nutrition counseling, exercise counseling and education provided. Assessment & Plan (05/09/2020 8:58 AM CDT): BMI Follow-up includes: nutrition counseling, exercise counseling and education provided. Reinforced his motivation to continue [employer] for weight loss. Discussed potential barriers. Strategized how he could begin regular exercise to support weight loss. Assessment & Plan (04/17/2020 10:49 AM NIGHT NURSE): BMI Follow-up includes: nutrition counseling, exercise counseling and education provided. Assessment & Plan (12/16/2019 10:50 AM CDT): BMI Follow-up includes: nutrition counseling, exercise counseling and education provided. Assessment & Plan (11/28/2019 12:27 PM CDT): BMI Follow-up includes: nutrition counseling, exercise counseling and education provided . Assessment & Plan (09/05/2019 10:10 AM CDT): BMI Follow-up includes: nutrition counseling, exercise counseling and education provided. Assessment & Plan (04/11/2019 11:29 AM NIGHT NURSE): BMI Follow-up includes: nutrition counseling, exercise counseling and education provided. Assessment & Plan (03/07/2019 10:16 AM NIGHT NURSE): BMI Follow-up includes: nutrition counseling, exercise counseling and education provided. Assessment & Plan (02/18/2019 11:41 AM NIGHT NURSE): BMI Follow-up includes: nutrition counseling, exercise counseling and education provided. Assessment & Plan (11/27/2018 7:22 AM CDT): BMI Follow-up includes: nutrition counseling, exercise counseling and education provided. Assessment & Plan (08/16/2018 3:49 PM CDT): BMI Follow-up includes: nutrition counseling, exercise counseling and education provided. Assessment & Plan (06/01/2018 4:06 PM CDT): BMI Follow-up includes: nutrition counseling, exercise counseling and education provided. Assessment & Plan (02/15/2018 9:45 AM NIGHT NURSE): BMI Follow-up includes: nutrition counseling, exercise counseling and education provided. Assessment & Plan (12/04/2017 11:43 AM CDT): We have discussed the importance of getting his weight under better control. It will also help with the musculoskeletal flank pain.BMI Follow-up includes: exercise counseling. Assessment & Plan (07/05/2017 1:32 PM CDT): BMI Follow-up includes: nutrition counseling, exercise counseling and education provided. Assessment & Plan (03/27/2017 9:43 AM NIGHT NURSE): BMI Follow-up includes: nutrition counseling, exercise counseling and education provided. Assessment & Plan (02/21/2017 8:46 AM NIGHT NURSE): BMI Follow-up includes: nutrition counseling, exercise counseling and education provided. Assessment & Plan (01/11/2017 9:12 AM NIGHT NURSE): BMI Follow-up includes: nutrition counseling, exercise counseling and education provided. Assessment & Plan (12/16/2016 3:22 PM CDT): BMI Follow-up includes: nutrition counseling, exercise counseling and education provided. Assessment & Plan (11/01/2016 9:53 AM CDT): BMI Follow-up includes: nutrition counseling, exercise counseling and education provided. Assessment & Plan (10/03/2016 8:44 PM CDT): BMI Follow-up includes: nutrition counseling, exercise counseling and education provided. Assessment & Plan (09/13/2016 7:38 AM CDT): BMI Follow-up includes: nutrition counseling, exercise counseling and education provided. Assessment & Plan (08/18/2016 10:18 AM CDT): BMI Follow-up includes: nutrition counseling, exercise counseling and education provided. Renal cyst, acquired, right 08/18/2016 Assessment & Plan (11/27/2018 7:26 AM CDT): Reviewed all diagnostics surgery referrals laboratory Answer all questions Stable lab pending avoid all advil/ibuprofen and aleve/naproxen stay well hydrated avoid soft drinks lab pending call for any change or new symptoms Assessment & Plan (10/11/2017 8:05 AM CDT): Reviewed all diagnostics surgery referrals laboratory Answer all questions Fu renal Assessment & Plan (08/18/2016 10:20 AM CDT): Renal condition is unchanged. Continue current treatment regimen. Weight loss. Monitor daily weight. Regular aerobic exercise. Continue current medications. Renal condition will be reassessed in 3 months Reviewed all diagnostics surgery referrals laboratory Answer all questions DDD (degenerative disc disease), thoracolumbar 0 08/18/2016 Assessment & Plan (11/27/2018 7:25 AM CDT): Reviewed all diagnostics surgery referrals laboratory Answer all questions Ice not heat , Rest with periods of walking. Prescription sent to pharmacy take as directed. All risk and benefits were discussed with patient. Reviewed prior diagnostics, labs consult prior treatments medications, d/w need for physical therapy and pain management Patient verbalized understanding agrees with plan of care See orders Assessment & Plan (10/11/2017 8:05 AM CDT): Reviewed all diagnostics surgery referrals laboratory Answer all questions Encourage weight loss walking Assessment & Plan (02/16/2017 1:27 PM NIGHT NURSE): Ice not heat , Rest with periods of walking. Prescription sent to pharmacy take as directed. All risk and benefits were discussed with patient. Reviewed prior diagnostics, labs consult prior treatments medications, d/w need for physical therapy and pain management Patient verbalized understanding agrees with plan of care See orders Assessment & Plan (12/16/2016 3:23 PM CDT): Reviewed all diagnostics surgery referrals laboratory Answer all questions Ice not heat , Rest with periods of walking. Prescription sent to pharmacy take as directed. All risk and benefits were discussed with patient. Reviewed prior diagnostics, labs consult prior treatments medications, d/w need for physical therapy and pain management Patient verbalized understanding agrees with plan of care Enc weight loss and exercise Assessment & Plan (11/07/2016 8:33 AM CDT): Ice posterior , Rest with periods of walking. Prescription sent to pharmacy take as directed. All risk and benefits were discussed with patient. Diagnosting testing pending. Report any changes of vision, balance, speech, swallowing, memory or mental status changes. Patient verbalized understanding agrees with plan of care Reviewed all diagnostics surgery referrals laboratory Answer all questions Assessment & Plan (09/13/2016 7:38 AM CDT): Ice posterior neck, Rest with periods of walking. Prescription sent to pharmacy take as directed. All risk and benefits were discussed with patient. Diagnosting testing pending. Report any changes of vision, balance, speech, swallowing, memory or mental status changes. Patient verbalized understanding agrees with plan of care Assessment & Plan (08/18/2016 10:22 AM CDT): Noted and discussed from ct scan Encourage lose weight 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 2 diabetes mellitus ( [facility]) 11/02/2015 Overview (05/26/2016): 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 2 diabetes mellitus Assessment & Plan (09/26/2023 7:14 AM CDT): Well controlled on simvastatin. Triglycerides improving. Assessment & Plan (03/20/2023 1:33 PM NIGHT NURSE): Well controlled on simvastatin. Triglycerides improving. Assessment & Plan (09/07/2022 11:22 AM CDT): Well controlled on simvastatin Assessment & Plan (02/24/2022 8:06 AM NIGHT NURSE): Well controlled on simvastatin Assessment & Plan (08/19/2021 7:20 AM CDT): Well controlled on simvastatin Assessment & Plan (02/10/2021 12:15 PM NIGHT NURSE): Well controlled on simvastatin Assessment & Plan (11/05/2020 12:12 PM CDT): Well controlled on simvastatin Assessment & Plan (09/03/2020 11:11 AM CDT): Lipids are well controlled. Continue statin therapy. Assessment & Plan (04/20/2020 5:45 PM NIGHT NURSE): Established CAD. LDL 42, which is at goal. Continue simvastatin. Triglycerides elevated at 182. Discussed the importance of weight loss for lowering triglycerides. Assessment & Plan (11/28/2019 2:20 PM CDT): Most recent lipid profile reviewed: Lab Results Component Value Date CHOL 116 09/05/2019 TRIG 113 09/05/2019 HDL 44 09/05/2019 LDL 46 11/02/2015 LDLCALC 49 09/05/2019 Labs pending Assessment & Plan (09/04/2019 3:10 PM CDT): Lipids are well controlled. Continue statin therapy. Assessment & Plan (11/27/2018 7:20 AM CDT): Plan to eat meals same time each day, use plate method to plan appropriate fat, cho, protein and fiber Stay adequately hydrated avoid soft drinks Avoid high sugar snacks and desserts Implement walking program for exercise if approved by your provider. Take medication as prescribed report any dark urine, muscle ache or weakness to your provider See orders Assessment & Plan (08/16/2018 3:48 PM CDT): Plan to eat meals same time each day, use plate method to plan appropriate fat, cho, protein and fiber Stay adequately hydrated avoid soft drinks Avoid high sugar snacks and desserts Implement walking program for exercise if approved by your provider. Take medication as prescribed report any dark urine, muscle ache or weakness to your provider Assessment & Plan (06/01/2018 4:05 PM CDT): Plan to eat meals same time each day, use plate method to plan appropriate fat, cho, protein and fiber Stay adequately hydrated avoid soft drinks Avoid high sugar snacks and desserts Implement walking program for exercise if approved by your provider. Take medication as prescribed report any dark urine, muscle ache or weakness to your provider Assessment & Plan (02/25/2018 1:22 PM NIGHT NURSE): Plan to eat meals same time each day, use plate method to plan appropriate fat, cho, protein and fiber Stay adequately hydrated avoid soft drinks Avoid high sugar snacks and desserts Implement walking program for exercise if approved by your provider. Take medication as prescribed report any dark urine, muscle ache or weakness to your provider Assessment & Plan (10/11/2017 8:04 AM CDT): Lipid abnormalities are unchanged. Nutritional counseling was provided. and Pharmacotherapy as ordered. Lipids will be reassessed in 3 months see order . Assessment & Plan (07/05/2017 1:33 PM CDT): Lipid abnormalities are unchanged. Nutritional counseling was provided. and Pharmacotherapy as ordered. Lipids will be reassessed in 3 months see orders . Assessment & Plan (04/24/2017 7:44 AM NIGHT NURSE): Lipid abnormalities are unchanged. Nutritional counseling was provided. and Pharmacotherapy as ordered. Lipids will be reassessed in 3 months see orders. Assessment & Plan (02/16/2017 1:27 PM NIGHT NURSE): Lipid abnormalities are unchanged. Nutritional counseling was provided. and Pharmacotherapy as ordered. Lipids will be reassessed in 3 months. Assessment & Plan (12/16/2016 3:23 PM CDT): Lipid abnormalities are improving with treatment. Nutritional counseling was provided. and Pharmacotherapy as ordered. Lipids will be reassessed in 3 months. Assessment & Plan (11/07/2016 8:34 AM CDT): Lipid abnormalities are unchanged. Nutritional counseling was provided. and Pharmacotherapy as ordered. Lipids will be reassessed in 6 months. Assessment & Plan (10/03/2016 8:45 PM CDT): Lipid abnormalities are unchanged. Nutritional counseling was provided. and Pharmacotherapy as ordered. Lipids will be reassessed in 3 months. DDD (degenerative disc disease), cervical 2011 Overview (05/26/2016): Backache, unspecified Assessment & Plan (11/27/2018 7:19 AM CDT): Reviewed all diagnostics surgery referrals laboratory Answer all questions Ice not heat , Rest with periods of walking. Prescription sent to pharmacy take as directed. All risk and benefits were discussed with patient. Reviewed prior diagnostics, labs consult prior treatments medications, d/w need for physical therapy and pain management Patient verbalized understanding agrees with plan of care Enc weight loss walking Assessment & Plan (10/11/2017 8:03 AM CDT): Reviewed all diagnostics surgery referrals laboratory Answer all questions Ice not heat , Rest with periods of walking. Prescription sent to pharmacy take as directed. All risk and benefits were discussed with patient. Reviewed prior diagnostics, labs consult prior treatments medications, d/w need for physical therapy and pain management Patient verbalized understanding agrees with plan of care Enc weight loss Assessment & Plan (12/16/2016 3:23 PM CDT): Reviewed all diagnostics surgery referrals laboratory Answer all questions Ice not heat , Rest with periods of walking. Prescription sent to pharmacy take as directed. All risk and benefits were discussed with patient. Reviewed prior diagnostics, labs consult prior treatments medications, d/w need for physical therapy and pain management Patient verbalized understanding agrees with plan of care Enc weight loss and exercise Assessment & Plan (11/07/2016 8:33 AM CDT): Ice posterior neck, Rest with periods of walking. Prescription sent to pharmacy take as directed. All risk and benefits were discussed with patient. Diagnosting testing pending. Report any changes of vision, balance, speech, swallowing, memory or mental status changes. Patient verbalized understanding agrees with plan of care Reviewed all diagnostics surgery referrals laboratory Answer all questions Assessment & Plan (09/13/2016 7:38 AM CDT): Ice posterior neck, Rest with periods of walking. Prescription sent to pharmacy take as directed. All risk and benefits were discussed with patient. Diagnosting testing pending. Report any changes of vision, balance, speech, swallowing, memory or mental status changes. Patient verbalized understanding agrees with plan of care Type 2 diabetes mellitus wit h circulatory disorder ([facility]) 08/04/2011 Overview (06/19/2020): Diabetes mellitus type II, uncontrolled Coronary artery disease Able to tolerate only 500 mg of metformin Per day due to diarrhea Assessment & Plan (09/26/2023 7:14 AM CDT): Complicated by hypertension coronary artery disease. Hemoglobin A1c was increased.. Continue Humalog, Xultophy, Farxiga, and metformin. Stress ADA diet Assessment & Plan (03/20/2023 1:32 PM NIGHT NURSE): Complicated by hypertension coronary artery disease. Hemoglobin A1c continues to improve. Continue Humalog, Xultophy, Farxiga, and metformin. Assessment & Plan (09/07/2022 11:22 AM CDT): Complicated by hypertension coronary artery disease. Stable. Continue Humalog, Xultophy, Farxiga, and metformin. Assessment & Plan (02/24/2022 8:05 AM NIGHT NURSE): Complicated by hypertension coronary artery disease. Hemoglobin A1c is improving. Continue Humalog, Xultophy, Farxiga, and metformin. Assessment & Plan (08/20/2021 10:02 AM CDT): Complicated by hypertension and coronary artery disease. Hemoglobin A1c is stable, but still elevated. Continue Humalog, Xultophy, and metformin. Increased Farxiga 10 mg once day. Will try to arrange a insulin pump. Assessment & Plan (02/11/2021 10:42 AM NIGHT NURSE): Complicated by hypertension and coronary artery disease. Hemoglobin A1c is slightly improved, but still elevated. Continue Humalog, Xultophy, and metformin. Would try Farxiga 5 mg once a day to help lower sugars and renal and heart protection. Assessment & Plan (11/09/2020 9:30 AM CDT): Complicated by HTN, CAD. Hemoglobin A1c is slowly improving. Continue Humalog, Xultophy, and metformin Assessment & Plan (09/17/2020 5:24 PM CDT): Fasting blood sugars are trending lower although still above goal. Check hemoglobin A1c today. Goal hemoglobin A1c 8.0 or less due to age and risk of hypoglycemia with insulin use. Discussed healthy choices when dining out and need to start regular daily exercise for blood sugar management and weight loss. Assessment & Plan (06/19/2020 2:29 PM CDT): Blood sugars are much better controlled which he attributes to the information he gets from his continuous glucose monitor and the weight loss and changes in diet that he is making. Afternoon blood sugars are borderline low. If he has any symptomatic low blood sugars in the afternoon he will call the office we will plan to reduce his Xultophy dose by 3 units. He is highly motivated to lose weight and plans to increases Nutrisystem program to 7 days a week. He will have hemoglobin A1c checked next week with his [facility] screening Assessment & Plan (05/09/2020 8:53 AM CDT): Last Hgb A1C 8.4. Blood sugars are lower with Nutri System diet. Applied Erick Free Style 2 Sensor. Educated on use. Continue Zultophy 50 units daily with Humalog sliding scale. If he begins to experience hypoglycemia as his weight decreases, he will call the office and we will decrease Xultophy dose. Assessment & Plan (04/20/2020 5:30 PM NIGHT NURSE): Diabetes is not well controlled. Increase Xultopy by 2 units every 3 days until he reaches a maximum dose of 50 units. Humalog sliding scale pre meals. Free Style Erick was just approved for him. I will order it for him. Stressed the importance of weight loss and decreasing his carbohydrate intake. He is considering NutriSystem. Encouraged him to investigate this weight loss plan. If we are unable to control his blood sugars on stool total 350 units and Humalog sliding scale pre meal will refer to endocrinology for insulin pump Assessment & Plan (12/22/2019 7:05 PM NIGHT NURSE): 11/28/19 Hgb A1C above goal at 8.9% Increase Xultopy to 50 units once daily. Continue premeal short acting insulin. He is taking 4 insulin injections daily and would qualify for a Freestyle erick blood glucose monitor.Will order through specialty pharmacy. Discussed weight loss and daily exercise as lifestyle changes that would improve Hgb A1C. Follow up 3 months. Assessment & Plan (11/28/2019 2:20 PM CDT): Blood sugars are better controlled with the use of a sliding scale insulin. Check A1c today. Discuss low-carbohydrate, exercising. Assessment & Plan (09/05/2019 6:19 PM CDT): Blood sugars are better controlled with use of sliding scale short-acting insulin. They are still above goal most of the day. Check hemoglobin A1c to assess control. Increase exercise to 6/7 days a week as suggested by his room designer. Discussed that this will help to control blood sugars. Extensive discussion of low-carbohydrate diet. He continues to find this hard to follow due to eating all of his meals out. He is really not willing to consider cooking at home. Discussed low carb ideas for dining out. Assessment & Plan (04/11/2019 5:42 PM NIGHT NURSE): Not well controlled with hemoglobin A1c of 8.7. Add Invokana 100 mg daily. Continue Xultopy 46 units daily. Call with blood sugars in 3 weeks. Continue metformin a 1000 mg daily which is the largest dose he can tolerate. Limited by diarrhea. Extensive discussion of importance of weight loss to help control diabetes. Discussed healthy restaurant eating. He has found a place that cells prepare diabetic meals and encouraged him to use that option more often. Assessment & Plan (03/07/2019 6:32 PM NIGHT NURSE): Continue with exercise and weight loss. We reviewed healthy choices for restaurant eating. He can continue to increase his Xultopy by 2 units every 3 days to a maximum dose of 50 units per day. Assessment & Plan (11/27/2018 7:20 AM CDT): Stable Lab pending Reviewed past medication, medical, surgical, family, social, nutrition and activity history. Reivewed smbg food diary. Education for progression of diabetes from hyperinsulinemia to requiring insulin. Education on lifestyle modification to reduce those risk, carbohydrate counting, label reading, need 3g fiber in all grains or more, rx 6-10 low carbohydrate vegetable servings a day, 2-3 dairy, 2-3 protien lean, 45-50g tid and 15g snack bid. We disussed need for smbg and was rx we discussed need for food diary and utilizing the diary as a tool to plan meals. We discussed need for eating meals same time each day eating the same number of carbohydrates each meal to maintain glucose. Medication prescribed today the risk and benefits were discussed . Education for diabetic sick day, education for contacting the Nurse Practitioner , discussed need for nightly foot checks, adequate foot care, appropriate shoe fitting type and structure, never wear shoes without socks to avoid skin injury See orders Assessment & Plan (08/16/2018 3:48 PM CDT): Stable Lab pending Reviewed past medication, medical, surgical, family, social, nutrition and activity history. Reivewed smbg food diary. Education for progression of diabetes from hyperinsulinemia to requiring insulin. Education on lifestyle modification to reduce those risk, carbohydrate counting, label reading, need 3g fiber in all grains or more, rx 6-10 low carbohydrate vegetable servings a day, 2-3 dairy, 2-3 protien lean, 45-50g tid and 15g snack bid. We disussed need for smbg and was rx we discussed need for food diary and utilizing the diary as a tool to plan meals. We discussed need for eating meals same time each day eating the same number of carbohydrates each meal to maintain glucose. Medication prescribed today the risk and benefits were discussed . Education for diabetic sick day, education for contacting the Nurse Practitioner , discussed need for nightly foot checks, adequate foot care, appropriate shoe fitting type and structure, never wear shoes without socks to avoid skin injury See orders He will let me know when he gets low in basal insulin we are going to make a switch Assessment & Plan (06/01/2018 4:05 PM CDT): Stable Lab pending Reviewed past medication, medical, surgical, family, social, nutrition and activity history. Reivewed smbg food diary. Education for progression of diabetes from hyperinsulinemia to requiring insulin. Education on lifestyle modification to reduce those risk, carbohydrate counting, label reading, need 3g fiber in all grains or more, rx 6-10 low carbohydrate vegetable servings a day, 2-3 dairy, 2-3 protien lean, 45-50g tid and 15g snack bid. We disussed need for smbg and was rx we discussed need for food diary and utilizing the diary as a tool to plan meals. We discussed need for eating meals same time each day eating the same number of carbohydrates each meal to maintain glucose. Medication prescribed today the risk and benefits were discussed . Education for diabetic sick day, education for contacting the Nurse Practitioner , discussed need for nightly foot checks, adequate foot care, appropriate shoe fitting type and structure, never wear shoes without socks to avoid skin injury See orders Assessment & Plan (02/25/2018 1:22 PM NIGHT NURSE): Stable Lab pending Reviewed past medication, medical, surgical, family, social, nutrition and activity history. Reivewed smbg food diary. Education for progression of diabetes from hyperinsulinemia to requiring insulin. Education on lifestyle modification to reduce those risk, carbohydrate counting, label reading, need 3g fiber in all grains or more, rx 6-10 low carbohydrate vegetable servings a day, 2-3 dairy, 2-3 protien lean, 45-50g tid and 15g snack bid. We disussed need for smbg and was rx we discussed need for food diary and utilizing the diary as a tool to plan meals. We discussed need for eating meals same time each day eating the same number of carbohydrates each meal to maintain glucose. Medication prescribed today the risk and benefits were discussed . Education for diabetic sick day, education for contacting the Nurse Practitioner , discussed need for nightly foot checks, adequate foot care, appropriate shoe fitting type and structure, never wear shoes without socks to avoid skin injury Assessment & Plan (10/11/2017 8:02 AM CDT): Improved Stable Lab pending Reviewed past medication, medical, surgical, family, social, nutrition and activity history. Reivewed smbg food diary. Education for progression of diabetes from hyperinsulinemia to requiring insulin. Education on lifestyle modification to reduce those risk, carbohydrate counting, label reading, need 3g fiber in all grains or more, rx 6-10 low carbohydrate vegetable servings a day, 2-3 dairy, 2-3 protien lean, 45-50g tid and 15g snack bid. We disussed need for smbg and was rx we discussed need for food diary and utilizing the diary as a tool to plan meals. We discussed need for eating meals same time each day eating the same number of carbohydrates each meal to maintain glucose. Medication prescribed today the risk and benefits were discussed . Education for diabetic sick day, education for contacting the Nurse Practitioner , discussed need for nightly foot checks, adequate foot care, appropriate shoe fitting type and structure, never wear shoes without socks to avoid skin injury See orders Assessment & Plan (07/05/2017 1:33 PM CDT): Stable Lab pending Reviewed past medication, medical, surgical, family, social, nutrition and activity history. Reivewed smbg food diary. Education for progression of diabetes from hyperinsulinemia to requiring insulin. Education on lifestyle modification to reduce those risk, carbohydrate counting, label reading, need 3g fiber in all grains or more, rx 6-10 low carbohydrate vegetable servings a day, 2-3 dairy, 2-3 protien lean, 45-50g tid and 15g snack bid. We disussed need for smbg and was rx we discussed need for food diary and utilizing the diary as a tool to plan meals. We discussed need for eating meals same time each day eating the same number of carbohydrates each meal to maintain glucose. Medication prescribed today the risk and benefits were discussed . Education for diabetic sick day, education for contacting the Nurse Practitioner , discussed need for nightly foot checks, adequate foot care, appropriate shoe fitting type and structure, never wear shoes without socks to avoid skin injury See orders Assessment & Plan (04/24/2017 7:47 AM NIGHT NURSE): Stable Lab pending Reviewed past medication, medical, surgical, family, social, nutrition and activity history. Reivewed smbg food diary. Education for progression of diabetes from hyperinsulinemia to requiring insulin. Education on lifestyle modification to reduce those risk, carbohydrate counting, label reading, need 3g fiber in all grains or more, rx 6-10 low carbohydrate vegetable servings a day, 2-3 dairy, 2-3 protien lean, 45-50g tid and 15g snack bid. We disussed need for smbg and was rx we discussed need for food diary and utilizing the diary as a tool to plan meals. We discussed need for eating meals same time each day eating the same number of carbohydrates each meal to maintain glucose. Medication prescribed today the risk and benefits were discussed . Education for diabetic sick day, education for contacting the Nurse Practitioner , discussed need for nightly foot checks, adequate foot care, appropriate shoe fitting type and structure, never wear shoes without socks to avoid skin injury Assessment & Plan (02/21/2017 9:11 AM NIGHT NURSE): I have reviewed past medical, surgical, family, social and medication history. We have discussed the need for balanced nutrition utilizing the plate method which can be found at [employer]. We have discussed glycemic goals. Patient will call for a blood sugar below 80 or above 200. I advise patient to complete annual eye exams and biannual dental exams. I have encouraged patient to check feet nightly for any changes and to wear appropriate foot wear. I have explained to patient the importance of compliance with medications and follow up. I have also explained the risks of uncontrolled diabetes to patient, including blindness, loss of limp, kidney failure, stroke or heart attack. Patient verbalized understanding. Assessment & Plan (02/16/2017 1:27 PM NIGHT NURSE): Stable Lab pending Reviewed past medication, medical, surgical, family, social, nutrition and activity history. Reivewed smbg food diary. Education for progression of diabetes from hyperinsulinemia to requiring insulin. Education on lifestyle modification to reduce those risk, carbohydrate counting, label reading, need 3g fiber in all grains or more, rx 6-10 low carbohydrate vegetable servings a day, 2-3 dairy, 2-3 protien lean, 45-50g tid and 15g snack bid. We disussed need for smbg and was rx we discussed need for food diary and utilizing the diary as a tool to plan meals. We discussed need for eating meals same time each day eating the same number of carbohydrates each meal to maintain glucose. Medication prescribed today the risk and benefits were discussed . Education for diabetic sick day, education for contacting the Nurse Practitioner , discussed need for nightly foot checks, adequate foot care, appropriate shoe fitting type and structure, never wear shoes without socks to avoid skin injury See orders Assessment & Plan (12/16/2016 3:24 PM CDT): Stable Lab pending Reviewed past medication, medical, surgical, family, social, nutrition and activity history. Reivewed smbg food diary. Education for progression of diabetes from hyperinsulinemia to requiring insulin. Education on lifestyle modification to reduce those risk, carbohydrate counting, label reading, need 3g fiber in all grains or more, rx 6-10 low carbohydrate vegetable servings a day, 2-3 dairy, 2-3 protien lean, 45-50g tid and 15g snack bid. We disussed need for smbg and was rx we discussed need for food diary and utilizing the diary as a tool to plan meals. We discussed need for eating meals same time each day eating the same number of carbohydrates each meal to maintain glucose. Medication prescribed today the risk and benefits were discussed . Education for diabetic sick day, education for contacting the Nurse Practitioner , discussed need for nightly foot checks, adequate foot care, appropriate shoe fitting type and structure, never wear shoes without socks to avoid skin injury See orders Assessment & Plan (11/07/2016 8:35 AM CDT): Unchanged Reviewed past medication, medical, surgical, family, social, nutrition and activity history. Reivewed smbg food diary. Education for progression of diabetes from hyperinsulinemia to requiring insulin. Education on lifestyle modification to reduce those risk, carbohydrate counting, label reading, need 3g fiber in all grains or more, rx 6-10 low carbohydrate vegetable servings a day, 2-3 dairy, 2-3 protien lean, 45-50g tid and 15g snack bid. We disussed need for smbg and was rx we discussed need for food diary and utilizing the diary as a tool to plan meals. We discussed need for eating meals same time each day eating the same number of carbohydrates each meal to maintain glucose. Medication prescribed today the risk and benefits were discussed . Education for diabetic sick day, education for contacting the Nurse Practitioner , discussed need for nightly foot checks, adequate foot care, appropriate shoe fitting type and structure, never wear shoes without socks to avoid skin injury See orders Assessment & Plan (10/03/2016 8:45 PM CDT): Reviewed past medication, medical, surgical, family, social, nutrition and activity history. Reivewed smbg food diary. Education for progression of diabetes from hyperinsulinemia to requiring insulin. Education on lifestyle modification to reduce those risk, carbohydrate counting, label reading, need 3g fiber in all grains or more, rx 6-10 low carbohydrate vegetable servings a day, 2-3 dairy, 2-3 protien lean, 45-50g tid and 15g snack bid. We disussed need for smbg and was rx we discussed need for food diary and utilizing the diary as a tool to plan meals. We discussed need for eating meals same time each day eating the same number of carbohydrates each meal to maintain glucose. Medication prescribed today the risk and benefits were discussed . Education for diabetic sick day, education for contacting the Nurse Practitioner , discussed need for nightly foot checks, adequate foot care, appropriate shoe fitting type and structure, never wear shoes without socks to avoid skin injury Assessment & Plan (09/13/2016 7:39 AM CDT): Reviewed past medication, medical, surgical, family, social, nutrition and activity history. Reivewed smbg food diary. Education for progression of diabetes from hyperinsulinemia to requiring insulin. Education on lifestyle modification to reduce those risk, carbohydrate counting, label reading, need 3g fiber in all grains or more, rx 6-10 low carbohydrate vegetable servings a day, 2-3 dairy, 2-3 protien lean, 45-50g tid and 15g snack bid. We disussed need for smbg and was rx we discussed need for food diary and utilizing the diary as a tool to plan meals. We discussed need for eating meals same time each day eating the same number of carbohydrates each meal to maintain glucose. Medication prescribed today the risk and benefits were discussed . Education for diabetic sick day, education for contacting the Nurse Practitioner , discussed need for nightly foot checks, adequate foot care, appropriate shoe fitting type and structure, never wear shoes without socks to avoid skin injury See medication orders for adjustment Herpes simplex 12/30/2010 Overview (05/26/2016): HERPES SIMPLEX NOS Assessment & Plan (03/20/2023 1:35 PM NIGHT NURSE): Stable on acyclovir Assessment & Plan (09/07/2022 11:24 AM CDT): Stable on acyclovir Assessment & Plan (02/24/2022 12:54 PM NIGHT NURSE): Stable on acyclovir Assessment & Plan (11/09/2020 9:29 AM CDT): Stable on acyclovir Assessment & Plan (11/27/2018 7:20 AM CDT): Do not use topical medication Wear loose clothing Rest Stay hydrated Take antiviral medication Take gabapentin for the pain Education they may cause sedation do not drive or use etoh with that medication rtc 2 weeks Call for any s/s infection worse rash or pain Assessment & Plan (10/11/2017 8:01 AM CDT): Stable improved Keep clean dry Hypertensive heart disease without heart failure 03/10/2006 Overview (05/26/2016): BENIGN HYPERTENSION Assessment & Plan (09/26/2023 7:14 AM CDT): Well controlled on metoprolol and irbesartan hydrochlorothiazide Assessment & Plan (03/20/2023 1:33 PM NIGHT NURSE): Well controlled on metoprolol and irbesartan hydrochlorothiazide Assessment & Plan (09/07/2022 11:22 AM CDT): Well controlled on metoprolol and irbesartan hydrochlorothiazide Assessment & Plan (02/24/2022 8:05 AM NIGHT NURSE): Well controlled on metoprolol and irbesartan hydrochlorothiazide Assessment & Plan (08/19/2021 7:19 AM CDT): Well controlled on metoprolol and irbesartan hydrochlorothiazide Assessment & Plan (02/10/2021 12:15 PM NIGHT NURSE): Well controlled on metoprolol and irbesartan hydrochlorothiazide Assessment & Plan (11/05/2020 12:13 PM CDT): Well controlled on metoprolol and irbesartan hydrochlorothiazide Assessment & Plan (09/17/2020 3:43 PM CDT): Blood pressure is well controlled. Reviewed low sodium diet and hidden sources of sodium in the diet to avoid. Assessment & Plan (09/03/2020 11:10 AM CDT): Blood pressure is well controlled. Continue same therapy. Continue diet and exercise. Assessment & Plan (06/19/2020 2:19 PM CDT): Blood pressure is well controlled. Reviewed low sodium diet and hidden sources of sodium in the diet to avoid. Assessment & Plan (05/09/2020 8:54 AM CDT): Blood pressure is well controlled. Reviewed low sodium diet and hidden sources of sodium in the diet to avoid. Assessment & Plan (11/28/2019 2:19 PM CDT): BP 124/70 (BP Location: Right arm, Patient Position: Sitting) Pulse 82 Resp 18 Ht 180.3 cm (5' 11 ) Wt 116.1 kg (256 lb) SpO2 98% BMI 35.70 kg/m?? On appropriate medication. Continue medication. Assessment & Plan (09/05/2019 6:12 PM CDT): Blood pressure is not well controlled, probably due to dietary indiscretion with high sodium meal last evening. He will check blood pressures at home and call if readings are above 135/85. Continue metoprolol, valsartan and hydrochlorothiazide. Reviewed low sodium diet and hidden sources of sodium in the diet to avoid. Assessment & Plan (09/04/2019 3:10 PM CDT): Blood pressure is well controlled. Continue same therapy. Continue diet and exercise. Assessment & Plan (04/11/2019 5:38 PM NIGHT NURSE): Blood pressure is well controlled. Continue valsartan HCT Reviewed low sodium diet and hidden sources of sodium in the diet to avoid. Assessment & Plan (03/07/2019 6:30 PM NIGHT NURSE): Blood pressure is well controlled. Continue valsartan HCT Reviewed low sodium diet and hidden sources of sodium in the diet to avoid. Assessment & Plan (02/20/2019 3:56 PM NIGHT NURSE): Blood pressure is well controlled. Continue irbesartan HCT Reviewed low sodium diet and hidden sources of sodium in the diet to avoid. Assessment & Plan (02/07/2019 10:47 AM NIGHT NURSE): Blood pressure is well controlled. Continue irbesartan hct and metoprolol Reviewed low sodium diet and hidden sources of sodium in the diet to avoid. Assessment & Plan (11/27/2018 7:20 AM CDT): Hypertension is unchanged. Continue current treatment regimen. Dietary sodium restriction. Weight loss. Regular aerobic exercise. Ambulatory blood pressure monitoring. Blood pressure will be reassessed at the next regular appointment. dash diet and exercise and continue current medication asa 81mg po qd fu 2-3 months for labs and bp evaluation encourage home monitoring of blood pressure call for less than 115/60 or greater than 140/85 heart rate less than 60 or greater than 90, education that some blood pressure medication increase risk of sun burn use sun screen hat and sleeves Assessment & Plan (08/16/2018 3:48 PM CDT): Hypertension is unchanged. Continue current treatment regimen. Dietary sodium restriction. Weight loss. Regular aerobic exercise. Ambulatory blood pressure monitoring. Blood pressure will be reassessed at the next regular appointment. dash diet and exercise and continue current medication asa 81mg po qd fu 2-3 months for labs and bp evaluation encourage home monitoring of blood pressure call for less than 115/60 or greater than 140/85 heart rate less than 60 or greater than 90, education that some blood pressure medication increase risk of sun burn use sun screen hat and sleeves See orders Assessment & Plan (06/01/2018 4:05 PM CDT): Hypertension is unchanged. Continue current treatment regimen. Dietary sodium restriction. Weight loss. Regular aerobic exercise. Ambulatory blood pressure monitoring. Blood pressure will be reassessed at the next regular appointment. dash diet and exercise and continue current medication asa 81mg po qd fu 2-3 months for labs and bp evaluation encourage home monitoring of blood pressure call for less than 115/60 or greater than 140/85 heart rate less than 60 or greater than 90, education that some blood pressure medication increase risk of sun burn use sun screen hat and sleeves See orders Assessment & Plan (02/25/2018 1:22 PM NIGHT NURSE): Hypertension is unchanged. Continue current treatment regimen. Dietary sodium restriction. Weight loss. Regular aerobic exercise. Ambulatory blood pressure monitoring. Blood pressure will be reassessed at the next regular appointment. dash diet and exercise and continue current medication asa 81mg po qd fu 2-3 months for labs and bp evaluation encourage home monitoring of blood pressure call for less than 115/60 or greater than 140/85 heart rate less than 60 or greater than 90, education that some blood pressure medication increase risk of sun burn use sun screen hat and sleeves Assessment & Plan (12/04/2017 11:41 AM CDT): Hypertension is improving with treatment. Continue current treatment regimen. Blood pressure will be reassessed at the next regular appointment. Assessment & Plan (10/11/2017 8:03 AM CDT): Improved Continue current treatment regimen. Dietary sodium restriction. Weight loss. Regular aerobic exercise. Ambulatory blood pressure monitoring. Blood pressure will be reassessed at the next regular appointment. dash diet and exercise and continue current medication asa 81mg po qd fu 2-3 months for labs and bp evaluation encourage home monitoring of blood pressure call for less than 115/60 or greater than 140/85 heart rate less than 60 or greater than 90, education that some blood pressure medication increase risk of sun burn use sun screen hat and sleeves Assessment & Plan (07/05/2017 1:32 PM CDT): Stable Hypertension is unchanged. Continue current treatment regimen. Dietary sodium restriction. Weight loss. Regular aerobic exercise. Ambulatory blood pressure monitoring. Blood pressure will be reassessed at the next regular appointment. dash diet and exercise and continue current medication asa 81mg po qd fu 2-3 months for labs and bp evaluation encourage home monitoring of blood pressure call for less than 115/60 or greater than 140/85 heart rate less than 60 or greater than 90, education that some blood pressure medication increase risk of sun burn use sun screen hat and sleeves See orders Assessment & Plan (04/24/2017 7:44 AM NIGHT NURSE): Hypertension is unchanged. Continue current treatment regimen. Dietary sodium restriction. Weight loss. Regular aerobic exercise. Ambulatory blood pressure monitoring. Blood pressure will be reassessed at the next regular appointment. dash diet and exercise and continue current medication asa 81mg po qd fu 2-3 months for labs and bp evaluation encourage home monitoring of blood pressure call for less than 115/60 or greater than 140/85 heart rate less than 60 or greater than 90, education that some blood pressure medication increase risk of sun burn use sun screen hat and sleeves See orders Assessment & Plan (02/16/2017 1:26 PM NIGHT NURSE): Borderline Hypertension is unchanged. Continue current treatment regimen. Dietary sodium restriction. Weight loss. Regular aerobic exercise. Ambulatory blood pressure monitoring. Blood pressure will be reassessed at the next regular appointment. dash diet and exercise and continue current medication asa 81mg po qd fu 2-3 months for labs and bp evaluation encourage home monitoring of blood pressure call for less than 115/60 or greater than 140/85 heart rate less than 60 or greater than 90, education that some blood pressure medication increase risk of sun burn use sun screen hat and sleeves See orders Assessment & Plan (12/16/2016 3:22 PM CDT): Stable Hypertension is unchanged. Continue current treatment regimen. Dietary sodium restriction. Weight loss. Regular aerobic exercise. Ambulatory blood pressure monitoring. Blood pressure will be reassessed at the next regular appointment. dash diet and exercise and continue current medication asa 81mg po qd fu 2-3 months for labs and bp evaluation encourage home monitoring of blood pressure call for less than 115/60 or greater than 140/85 heart rate less than 60 or greater than 90, education that some blood pressure medication increase risk of sun burn use sun screen hat and sleeves Assessment & Plan (11/07/2016 8:33 AM CDT): Unchanged dash diet and exercise and continue current medication asa 81mg po qd fu 2-3 months for labs and bp evaluation encourage home monitoring of blood pressure call for less than 115/60 or greater than 140/85 heart rate less than 60 or greater than 90, education that some blood pressure medication increase risk of sun burn use sun screen hat and sleeves Assessment & Plan (10/03/2016 8:45 PM CDT): dash diet and exercise and continue current medication asa 81mg po qd fu 2-3 months for labs and bp evaluation encourage home monitoring of blood pressure call for less than 115/60 or greater than 140/85 heart rate less than 60 or greater than 90, education that some blood pressure medication increase risk of sun burn use sun screen hat and sleeves Assessment & Plan (09/13/2016 7:38 AM CDT): dash diet and exercise and continue current medication asa 81mg po qd fu 2-3 months for labs and bp evaluation encourage home monitoring of blood pressure call for less than 115/60 or greater than 140/85 heart rate less than 60 or greater than 90, education that some blood pressure medication increase risk of sun burn use sun screen hat and sleeves Assessment & Plan (08/18/2016 10:18 AM CDT): Hypertension is improving with treatment. Continue current treatment regimen. Dietary sodium restriction. Weight loss. Regular aerobic exercise. Continue current medications. Blood pressure will be reassessed in 3 months. Resolved Problems Problem Noted Date Diagnosed Date Resolved Date Cough 06/12/2023 09/26/2023 Assessment & Plan (06/12/2023 11:05 AM CDT): VSS, NAD, lungs CTAB Rapid strep negative. Throat culture pending Rapid covid, flu A/B negative. Symptom duration 4 days Possible allergy related, vs viral URI Tylenol for aches, pains. Take per package directions Antihistamines like Claritin or Zyrtec and Flonase nasal spray, as needed for drainage for 7-10 days. Take per package directions Cool mist humidifier, nasal saline spray , 2 sprays each nostril 3-4 times a day for 7-10 days for congestion Delsym (cough suppressant) and Mucinex (cough expectorant) as needed for coughing. Follow package directions Frequent cough drops and lozenges Increase sugar free fluids, especially decaffeinated ones Discussed the life expectancy of a viral illness is 7 to 10 days. Instructed to use good handwashing within the household. Patient understands and agrees with treatment plan. Avoid spreading the virus by remaining at home and away from others until you are fever-free (temperature below 100) for 24 hours. Good handwashing and covering your mouth when coughing are also important. Follow up with PCP for any symptoms persisting beyond 10-14 days. ER [facility] for chest pain, chest tightness, shortness of breath, persistent dizziness, syncope, inability to tolerate oral intake Urine frequency 05/30/2023 09/26/2023 Assessment & Plan (05/30/2023 10:29 AM CDT): No evidence of UTI. Does not want to start another medication Other headache syndrome 02/25/202207/2023 Assessment & Plan (02/25/2022 9:37 AM NIGHT NURSE): Possibly secondary to hypertension since happens before he takes his medicine. Move second dose metoprolol to the evening. Trigger finger, left ring finger 02/11/2021 09/26/2023 Assessment & Plan (02/11/2021 10:47 AM NIGHT NURSE): Refer to hand specialist Acute bronchitis 01/21/2021 02/10/2021 Assessment & Plan (01/21/2021 3:33 PM NIGHT NURSE): Contact our office if no improvement after treatment, develop new symptoms or feeling worse at any point. History of colon polyps 11/25/202006/2022 Overview (11/25/2020): Added automatically from request for surgery [id number] Sciatica of right side 09/17/202009/25 Assessment & Plan (09/17/2020 5:27 PM CDT): Sciatica right side, limiting activity. No red flag signs. Referred for physical therapy. Preoperative examination 06/19/202006/2022 Assessment & Plan (06/19/2020 2:22 PM CDT): He is an acceptable candidate for low risk cataract extraction. He has stable coronary artery disease without angina. No further cardiac testing is required. Preoperative exam form completed. Encounter for Medicare annual wellness exam 04/20/2020 09/26/2023 Fall 11/28/2019 04/20/2020 Assessment & Plan (12/22/2019 8:10 AM NIGHT NURSE): Continues to half right hip pain 6 weeks post fall. Xray lumbar spine and right hip. Assessment & Plan (11/28/2019 2:19 PM CDT): Patient stumbled over side walk fell onto the porch. He was wearing supportive shoes but just stumbled. Denies hitting head. Screening for prostate cancer 11/28/2019 02/10/2021 Assessment & Plan (11/28/2019 2:20 PM CDT): The natural history of prostate cancer and ongoing controversy regarding screening and potential treatment outcomes of prostate cancer has been discussed with the patient. The meaning of a false positive PSA and a false negative PSA has been discussed. He indicates understanding of the limitations of this screening test and wishes to proceed with screening PSA testing. Incontinence of feces with fecal urgency 02/07/2019 04/20/2020 Assessment & Plan (03/07/2019 6:33 PM NIGHT NURSE): Resolved with decrease in metformin to 500 mg daily. Assessment & Plan (02/20/2019 3:54 PM NIGHT NURSE): Symptoms improved with decreased metformin dose. He can use Imodium prior to eating out or to control urgency on the airplane. He has noted that high carbohydrate meals 10 to increase his symptoms and I encouraged him to continue to limit simple carbohydrates. Assessment & Plan (02/07/2019 5:21 PM NIGHT NURSE): Decrease metformin to 500 mg BID. Start metamucil 1 tsp daily. Trial of gluten free diet. Abnormal results of thyroid function studies 9 09/17/2020 Acute right-sided thoracic back pain 11/21/2018 02/07/2019 Assessment & Plan (11/27/2018 7:21 AM CDT): Reviewed all diagnostics surgery referrals laboratory Answer all questions See orders Ice not heat , Rest with periods of walking. Prescription sent to pharmacy take as directed. All risk and benefits were discussed with patient. Reviewed prior diagnostics, labs consult prior treatments medications, d/w need for physical therapy and pain management Patient verbalized understanding agrees with plan of care Anal fissure 08/16/2018 02/20/2019 Overview (02/07/2019): Repair 11/28/2018. Assessment & Plan (02/07/2019 5:21 PM NIGHT NURSE): Pain has resolved post repair. Assessment & Plan (11/27/2018 7:22 AM CDT): Reviewed all diagnostics surgery referrals laboratory Answer all questions Increase water hydration, fruits, vegetables walking. use otc miralax nightly hold for diarrhea. report any changes bleeding pain po intolerance if no improvement consult gi Fu colorectal as directed Assessment & Plan (08/16/2018 3:49 PM CDT): Not seen on ltd exam rx antbx low dose and oral steroid to assist in his discomfort Hemorrhoid 05/16/2018 11/05/2020 Assessment & Plan (09/05/2019 6:13 PM CDT): He Anusol HC suppositories. Keep stool soft. Continue stool softeners. Increase fruit and vegetable intake. Keep fluid intake high. If no improvement with hydrocortisone suppositories can consider referral to Colorectal surgery. Assessment & Plan (02/07/2019 5:23 PM NIGHT NURSE): Bright red bleeding probably due to internal hemorrhoid irritated by frequent stool. If he has any recurrence he will call the office. Assessment & Plan (11/27/2018 7:25 AM CDT): S/p surgery Fu colorectal for final procedure Ice not heat Assessment & Plan (08/16/2018 3:50 PM CDT): Reviewed hospital admission discharge treatment plan diagnostic laboratory referrals Reconciled medication allergies Written plan was given to the patient for rtov I, [employer] [employer] have personally reviewed pertinent Hospital/ER data including [employer] and Care Everywhere if available. This patient's discharge medication list has been reviewed and reconciled with his medication list in the office chart and has also been reviewed with patient and/or caregiver. I have noted any changes. Completed course of treated Use miralax daily to avoid constipation Soak in epsom salt and warm bath weekly Increase fruits vegetables and water Call for nayely bleeding or black tarry stools or acute pain Assessment & Plan (06/01/2018 4:06 PM CDT): Completed course of treated Use miralax daily to avoid constipation Soak in epsom salt and warm bath weekly Increase fruits vegetables and water Call for nayely bleeding or black tarry stools or acute pain Left ankle swelling 02/15/2018 11/22/19 19 Assessment & Plan (02/25/2018 1:24 PM NIGHT NURSE): Ice elevate compression Xray neg some soft tissue swelling If no improvement will order pt or consult orthopedic Flank pain 12/04/2017 05/16/2018 Assessment & Plan (12/04/2017 11:42 AM CDT): The flank discomfort the patient experiences appears to be musculoskeletal. He was reassured and will follow up in the office as needed. Medicare annual wellness visit, subsequent 09/25/2017 02/10/2021 Assessment & Plan (04/20/2020 5:46 PM NIGHT NURSE): Reviewed previous labs and diagnostic test results. Chronic medical problems evaluated and management plans discussed with patient. Prescription medications, supplements, vitamins and immunizations reviewed. Discussed healthy diet for disease prevention. Recommended moving towards a plant based diet. Limit alcohol to no more than 7 drinks per week. Discussed importance of scheduling recommended screening tests. Discussed importance of regular physical examinations for health maintenance. Assessment & Plan (11/28/2019 2:19 PM CDT): Healthy lifestyle recommended, including regular exercise (daily aerobic & twice weekly resistance training), prudent diet, calcium & vitamin D supplementation, colonoscopy (starting @ age 50 for average risk person),, periodic blood pressure monitoring, & bone-density testing (starting @ age 65 in average-risk person). For males PSA beginning at the age of 45 if warranted. Assessment & Plan (11/27/2018 7:26 AM CDT): patient presents for annual exam ekg noted labs pending get copy of living will to pcp encourage follow gi for scheduled colonoscopy and egd if indicated encourage annual eye exam and dental minimum 2 times year encourage balance nutrition utilizing platemethod.gov and exercise 5 days a week. See orders Assessment & Plan (10/11/2017 8:06 AM CDT): patient presents for annual exam ekg noted labs pending get copy of living will to pcp encourage follow gi for scheduled colonoscopy and egd if indicated encourage annual eye exam and dental minimum 2 times year encourage balance nutrition utilizing platemethod.gov and exercise 5 days a week. See orders Morbid obesity (CMS/HCC) 06/26/2017 Assessment & Plan (10/11/2017 8:06 AM CDT): Obesity is unchanged. Counseling was provided to the child and family regarding behavior modifications, nutrition and physical activity. Diet interventions: diet diary indefinitely. Regular aerobic exercise program discussed. Assessment & Plan (06/26/2017 11:03 AM CDT): BMI Follow-up includes: nutrition counseling, exercise counseling and education provided. Essential hypertension, benign 04/07/2017 08/16/2018 Assessment & Plan (05/02/2018 12:45 PM CDT): Blood pressure is well controlled. Continue same therapy. Continue diet and exercise. Assessment & Plan (05/03/2017 1:17 PM CDT): Blood pressure is very well controlled. Continue same therapy. Continue diet and exercise. Pearl angioma 03/27/2017 09/25/2017 Adrenal cyst 08/18/2016 11/05/2020 Assessment & Plan (11/28/2019 2:17 PM CDT): Stable no change on Ct Assessment & Plan (11/27/2018 7:21 AM CDT): Reviewed all diagnostics surgery referrals laboratory Answer all questions Assessment & Plan (10/11/2017 8:05 AM CDT): Reviewed all diagnostics surgery referrals laboratory Answer all questions Fu image Assessment & Plan (08/18/2016 10:20 AM CDT): Reviewed all diagnostics surgery referrals laboratory Answer all questions Change in stool 08/18/2016 09/09/2016 Assessment & Plan (08/18/2016 10:23 AM CDT): Has ibs likely diarrhea Reviewed all diagnostics surgery referrals laboratory Answer all questions cologuard negative recently Family history of colon cancer 02/04/2016 08/19/2021 Overview (05/26/2016): Family history of colon cancer Assessment & Plan (02/10/2021 12:17 PM NIGHT NURSE): Had colonoscopy by Dr. Roberts on January 19, 2021. Recommend follow-up colonoscopy in 3 years. Assessment & Plan (11/27/2018 7:20 AM CDT): Reviewed all diagnostics surgery referrals laboratory Answer all questions Fu gi as directed report any changes Assessment & Plan (10/11/2017 8:04 AM CDT): Reviewed all diagnostics surgery referrals laboratory Answer all questions shaina neg Fu gi Morbid obesity 01/05/2016 11/05/2020 Overview (09/05/2019): Assessment & Plan (09/05/2019 10:27 AM CDT): BMI 35.8 with serious comorbidities of type 2 diabetes, fatty liver, CAD, hyperlipidemia Assessment & Plan (11/27/2018 7:21 AM CDT): eat three meals a day same time each day well balance using plate method found at [employer] stay well hydrated with water and walk 5 days a week Assessment & Plan (08/16/2018 3:48 PM CDT): eat three meals a day same time each day well balance using plate method found at [employer] stay well hydrated with water and walk 5 days a week Assessment & Plan (06/01/2018 4:05 PM CDT): eat three meals a day same time each day well balance using plate method found at [employer] stay well hydrated with water and walk 5 days a week Assessment & Plan (02/25/2018 1:22 PM NIGHT NURSE): eat three meals a day same time each day well balance using plate method found at [employer] stay well hydrated with water and walk 5 days a week Type 2 diabetes mellitus wit h neurologic complication 12/03/2015 11/05/2020 Overview (05/26/2016): Type 2 diabetes mellitus with diabetic autonomic neuropathy, without long-term current use of insulin Assessment & Plan (02/07/2019 5:19 PM NIGHT NURSE): Reviewed diabetic foot care Assessment & Plan (11/27/2018 7:21 AM CDT): Stable Lab pending Reviewed past medication, medical, surgical, family, social, nutrition and activity history. Reivewed smbg food diary. Education for progression of diabetes from hyperinsulinemia to requiring insulin. Education on lifestyle modification to reduce those risk, carbohydrate counting, label reading, need 3g fiber in all grains or more, rx 6-10 low carbohydrate vegetable servings a day, 2-3 dairy, 2-3 protien lean, 45-50g tid and 15g snack bid. We disussed need for smbg and was rx we discussed need for food diary and utilizing the diary as a tool to plan meals. We discussed need for eating meals same time each day eating the same number of carbohydrates each meal to maintain glucose. Medication prescribed today the risk and benefits were discussed . Education for diabetic sick day, education for contacting the Nurse Practitioner , discussed need for nightly foot checks, adequate foot care, appropriate shoe fitting type and structure, never wear shoes without socks to avoid skin injury See orders Assessment & Plan (08/16/2018 3:49 PM CDT): Stable Lab pending Reviewed past medication, medical, surgical, family, social, nutrition and activity history. Reivewed smbg food diary. Education for progression of diabetes from hyperinsulinemia to requiring insulin. Education on lifestyle modification to reduce those risk, carbohydrate counting, label reading, need 3g fiber in all grains or more, rx 6-10 low carbohydrate vegetable servings a day, 2-3 dairy, 2-3 protien lean, 45-50g tid and 15g snack bid. We disussed need for smbg and was rx we discussed need for food diary and utilizing the diary as a tool to plan meals. We discussed need for eating meals same time each day eating the same number of carbohydrates each meal to maintain glucose. Medication prescribed today the risk and benefits were discussed . Education for diabetic sick day, education for contacting the Nurse Practitioner , discussed need for nightly foot checks, adequate foot care, appropriate shoe fitting type and structure, never wear shoes without socks to avoid skin injury Assessment & Plan (06/01/2018 4:06 PM CDT): Stable Lab pending Reviewed past medication, medical, surgical, family, social, nutrition and activity history. Reivewed smbg food diary. Education for progression of diabetes from hyperinsulinemia to requiring insulin. Education on lifestyle modification to reduce those risk, carbohydrate counting, label reading, need 3g fiber in all grains or more, rx 6-10 low carbohydrate vegetable servings a day, 2-3 dairy, 2-3 protien lean, 45-50g tid and 15g snack bid. We disussed need for smbg and was rx we discussed need for food diary and utilizing the diary as a tool to plan meals. We discussed need for eating meals same time each day eating the same number of carbohydrates each meal to maintain glucose. Medication prescribed today the risk and benefits were discussed . Education for diabetic sick day, education for contacting the Nurse Practitioner , discussed need for nightly foot checks, adequate foot care, appropriate shoe fitting type and structure, never wear shoes without socks to avoid skin injury See orders Assessment & Plan (02/25/2018 1:23 PM NIGHT NURSE): Stable Lab pending Reviewed past medication, medical, surgical, family, social, nutrition and activity history. Reivewed smbg food diary. Education for progression of diabetes from hyperinsulinemia to requiring insulin. Education on lifestyle modification to reduce those risk, carbohydrate counting, label reading, need 3g fiber in all grains or more, rx 6-10 low carbohydrate vegetable servings a day, 2-3 dairy, 2-3 protien lean, 45-50g tid and 15g snack bid. We disussed need for smbg and was rx we discussed need for food diary and utilizing the diary as a tool to plan meals. We discussed need for eating meals same time each day eating the same number of carbohydrates each meal to maintain glucose. Medication prescribed today the risk and benefits were discussed . Education for diabetic sick day, education for contacting the Nurse Practitioner , discussed need for nightly foot checks, adequate foot care, appropriate shoe fitting type and structure, never wear shoes without socks to avoid skin injury Assessment & Plan (12/04/2017 11:41 AM CDT): Diabetes is improving with treatment. Continue current treatment regimen. Diabetes will be reassessed in 6 months. Assessment & Plan (10/11/2017 8:04 AM CDT): Stable Lab pending Reviewed past medication, medical, surgical, family, social, nutrition and activity history. Reivewed smbg food diary. Education for progression of diabetes from hyperinsulinemia to requiring insulin. Education on lifestyle modification to reduce those risk, carbohydrate counting, label reading, need 3g fiber in all grains or more, rx 6-10 low carbohydrate vegetable servings a day, 2-3 dairy, 2-3 protien lean, 45-50g tid and 15g snack bid. We disussed need for smbg and was rx we discussed need for food diary and utilizing the diary as a tool to plan meals. We discussed need for eating meals same time each day eating the same number of carbohydrates each meal to maintain glucose. Medication prescribed today the risk and benefits were discussed . Education for diabetic sick day, education for contacting the Nurse Practitioner , discussed need for nightly foot checks, adequate foot care, appropriate shoe fitting type and structure, never wear shoes without socks to avoid skin injury See orders. Assessment & Plan (07/05/2017 1:34 PM CDT): Stable Lab pending Reviewed past medication, medical, surgical, family, social, nutrition and activity history. Reivewed smbg food diary. Education for progression of diabetes from hyperinsulinemia to requiring insulin. Education on lifestyle modification to reduce those risk, carbohydrate counting, label reading, need 3g fiber in all grains or more, rx 6-10 low carbohydrate vegetable servings a day, 2-3 dairy, 2-3 protien lean, 45-50g tid and 15g snack bid. We disussed need for smbg and was rx we discussed need for food diary and utilizing the diary as a tool to plan meals. We discussed need for eating meals same time each day eating the same number of carbohydrates each meal to maintain glucose. Medication prescribed today the risk and benefits were discussed . Education for diabetic sick day, education for contacting the Nurse Practitioner , discussed need for nightly foot checks, adequate foot care, appropriate shoe fitting type and structure, never wear shoes without socks to avoid skin injury See orders Assessment & Plan (04/24/2017 7:47 AM NIGHT NURSE): Stable Lab pending Reviewed past medication, medical, surgical, family, social, nutrition and activity history. Reivewed smbg food diary. Education for progression of diabetes from hyperinsulinemia to requiring insulin. Education on lifestyle modification to reduce those risk, carbohydrate counting, label reading, need 3g fiber in all grains or more, rx 6-10 low carbohydrate vegetable servings a day, 2-3 dairy, 2-3 protien lean, 45-50g tid and 15g snack bid. We disussed need for smbg and was rx we discussed need for food diary and utilizing the diary as a tool to plan meals. We discussed need for eating meals same time each day eating the same number of carbohydrates each meal to maintain glucose. Medication prescribed today the risk and benefits were discussed . Education for diabetic sick day, education for contacting the Nurse Practitioner , discussed need for nightly foot checks, adequate foot care, appropriate shoe fitting type and structure, never wear shoes without socks to avoid skin injury Assessment & Plan (12/16/2016 3:24 PM CDT): Stable Lab pending Reviewed past medication, medical, surgical, family, social, nutrition and activity history. Reivewed smbg food diary. Education for progression of diabetes from hyperinsulinemia to requiring insulin. Education on lifestyle modification to reduce those risk, carbohydrate counting, label reading, need 3g fiber in all grains or more, rx 6-10 low carbohydrate vegetable servings a day, 2-3 dairy, 2-3 protien lean, 45-50g tid and 15g snack bid. We disussed need for smbg and was rx we discussed need for food diary and utilizing the diary as a tool to plan meals. We discussed need for eating meals same time each day eating the same number of carbohydrates each meal to maintain glucose. Medication prescribed today the risk and benefits were discussed . Education for diabetic sick day, education for contacting the Nurse Practitioner , discussed need for nightly foot checks, adequate foot care, appropriate shoe fitting type and structure, never wear shoes without socks to avoid skin injury See orders Assessment & Plan (11/07/2016 8:36 AM CDT): Reviewed past medication, medical, surgical, family, social, nutrition and activity history. Reivewed smbg food diary. Education for progression of diabetes from hyperinsulinemia to requiring insulin. Education on lifestyle modification to reduce those risk, carbohydrate counting, label reading, need 3g fiber in all grains or more, rx 6-10 low carbohydrate vegetable servings a day, 2-3 dairy, 2-3 protien lean, 45-50g tid and 15g snack bid. We disussed need for smbg and was rx we discussed need for food diary and utilizing the diary as a tool to plan meals. We discussed need for eating meals same time each day eating the same number of carbohydrates each meal to maintain glucose. Medication prescribed today the risk and benefits were discussed . Education for diabetic sick day, education for contacting the Nurse Practitioner , discussed need for nightly foot checks, adequate foot care, appropriate shoe fitting type and structure, never wear shoes without socks to avoid skin injury See orders Assessment & Plan (09/13/2016 7:39 AM CDT): Reviewed past medication, medical, surgical, family, social, nutrition and activity history. Reivewed smbg food diary. Education for progression of diabetes from hyperinsulinemia to requiring insulin. Education on lifestyle modification to reduce those risk, carbohydrate counting, label reading, need 3g fiber in all grains or more, rx 6-10 low carbohydrate vegetable servings a day, 2-3 dairy, 2-3 protien lean, 45-50g tid and 15g snack bid. We disussed need for smbg and was rx bid we discussed need for food diary and utilizing the diary as a tool to plan meals. We discussed need for eating meals same time each day eating the same number of carbohydrates each meal to maintain glucose. Medication prescribed today the risk and benefits were discussed . Education for diabetic sick day, education for contacting the Nurse Practitioner , discussed need for nightly foot checks, adequate foot care, appropriate shoe fitting type and structure, never wear shoes without socks to avoid skin injury Assessment & Plan (08/18/2016 10:17 AM CDT): Diabetes is unchanged. Continue current treatment regimen. Reminded to bring in blood sugar diary at next visit. Dietary recommendations for ADA diet. Regular aerobic exercise. Discussed ways to avoid symptomatic hypoglycemia. Discussed sick day management. Discussed foot care. Diabetes will be reassessed in 3 months. Muscle spasms of neck 12/03/20152017 Overview (05/26/2016): Trapezius muscle spasm Peripheral neuropathy due to disorder of metabolism 12/03/2015 02/07/2019 Overview (05/26/2016): Peripheral neuropathy due to metabolic disorder Assessment & Plan (11/27/2018 7:21 AM CDT): Do not go barefoot Wear supportive shoes and sock Never wear shoes without socks Check feet nightly Call for any change Fu podiatry Assessment & Plan (08/16/2018 3:49 PM CDT): Do not go barefoot Wear supportive shoes and sock Never wear shoes without socks Check feet nightly Call for any change Fu podiatry Assessment & Plan (06/01/2018 4:06 PM CDT): Do not go barefoot Wear supportive shoes and sock Never wear shoes without socks Check feet nightly Call for any change Fu podiatry Assessment & Plan (02/25/2018 1:22 PM NIGHT NURSE): Do not go barefoot Wear supportive shoes and sock Never wear shoes without socks Check feet nightly Call for any change Fu podiatry Assessment & Plan (10/11/2017 8:04 AM CDT): Do not go barefoot Wear supportive shoes and sock Never wear shoes without socks Check feet nightly Call for any change Fu podiatry Assessment & Plan (07/05/2017 1:33 PM CDT): Reviewed all diagnostics surgery referrals laboratory Answer all questions Do not go barefoot Wear supportive shoes and sock Never wear shoes without socks Check feet nightly Call for any change Fu podiatry Assessment & Plan (04/24/2017 7:44 AM NIGHT NURSE): Do not go barefoot Wear supportive shoes and sock Never wear shoes without socks Check feet nightly Call for any change Fu podiatry Assessment & Plan (11/07/2016 8:35 AM CDT): Do not go barefoot Wear supportive shoes and sock Never wear shoes without socks Check feet nightly Call for any change Fu podiatry Assessment & Plan (09/13/2016 7:38 AM CDT): Do not go barefoot Wear supportive shoes and sock Never wear shoes without socks Check feet nightly Call for any change Fu podiatry Patient encounter status 12/03/2015 Overview (05/26/2016): Encounter for general adult medical examination with abnormal findings Hypertensive renal disease 11/02/2015 0 08/18/2016 Overview (05/26/2016): Hypertensive chronic kidney disease with stage 1 through stage 4 chronic kidney disease, or unspecified chronic kidney disease Abnormal findings on diagnos tic imaging of lung 02/28/2014 02/24/2022 Assessment & Plan (11/27/2018 7:19 AM CDT): Reviewed all diagnostics surgery referrals laboratory Answer all questions Consider repeat ct lung one year Assessment & Plan (10/11/2017 8:02 AM CDT): Reviewed all diagnostics surgery referrals laboratory Answer all questions Fu routine Disorder of lung 12/26/2013 09/25/2017 Screening status 04/29/2013 08/18/2016 Overview (05/26/2016): ANJELICA PEARSON NEOP-PROSTATE Essential hypertension 04/02/201202/24 Hyperlipidemia 04/02/2012 06/26/2017 Abnormal result of cardiovas cular function study 03/27/2012 09/09/2016 Overview (05/27/2016): Other nonspecific abnormal cardiovascular system f Chest pain 03/20/2012 08/18/2016 Overview (05/28/2016): Chest pain, unspecified Muscle cramps 01/02/2012 08/18/2016 Overview (05/27/2016): Spasm of muscle Knee pain 12/13/2011 06/26/2017 Right upper quadrant abdominal pain 12/12/2011 08/18/2016 Overview (05/26/2016): RUQ abdominal pain Folliculitis 10/06/2011 09/09/2016 Overview (05/26/2016): Folliculitis Onychomycosis 08/04/2011 06/26/2017 Overview (05/27/2016): Onychomycosis Viral infection 06/21/2011 08/18/2016 Overview (05/26/2016): Viral syndrome Bleeding external hemorrhoids 06/21/2011 02/24/2022 Overview (05/28/2016): Bleeding external hemorrhoids Assessment & Plan (04/17/2020 11:01 AM NIGHT NURSE): Refer to colorectal surgery. Continue stool softener and prunes. Anusul HC suppositories as needed. Assessment & Plan (08/18/2016 10:23 AM CDT): Continue otc prep Soak in tub Consider going back to hemorrhoid doctor Vitamin D deficiency 02/27/2010 023 Overview (05/27/2016): VITAMIN D DEFICIENCY NOS Assessment & Plan (11/27/2018 7:20 AM CDT): Continue supplement Increase weight resistant exercise See orders Assessment & Plan (10/11/2017 8:02 AM CDT): Continue supplement and exercise Benign neoplasm of large intestine 03/10/2006 11/05/2020 Overview (05/28/2016): BENIGN NEOPLASM LG BOWEL Assessment & Plan (11/27/2018 7:19 AM CDT): Reviewed all diagnostics surgery referrals laboratory Answer all questions Fu gi as directed Assessment & Plan (10/11/2017 8:02 AM CDT): Reviewed all diagnostics surgery referrals laboratory Answer all questions Fu gi as scheduled Hypercholesteremia 03/10/2006 9 Overview (05/28/2016): PURE HYPERCHOLESTEROLEM Assessment & Plan (05/02/2018 12:46 PM CDT): Lipids are well controlled. Continue statin therapy. Assessment & Plan (05/03/2017 1:18 PM CDT): Lipids are very well controlled. Continue statin therapy. Colon polyps 08/19/2021 Overview (04/17/2020): Colon polyps, hemorrhoidectomy Assessment & Plan (02/10/2021 12:18 PM NIGHT NURSE): Had repeat colonoscopy by Dr. Roberts on January 19, 2021. Recommend follow-up colonoscopy in 3 years Assessment & Plan (11/05/2020 12:14 PM CDT): Due for repeat colonoscopy. Assessment & Plan (04/17/2020 10:48 AM NIGHT NURSE): Three year surveillance interval recommended by GI. Schedule colonoscopy. Encounters Date Type Department Care Team Description 12/01/2023 Orders Only [facility] [address] [place] [address] Scanning, Provider 11/17/2023 Telephone [facility] [address] [place] [address] Ronaldo Ulrich MD Medical Records Request from Last 3 Months Immunizations Name Administration Dates Next Due COVID-19 mRNA (PFIZER) 0.3 m L (30 mcg) vaccine (12 years and up) 11/22/2022 Hep A, Adult 02/05/2001,02/16/2000 Influenza, Quad, Adjuvantate d, Intramuscular 11/08/2022 Influenza, Quadrivalent, Hig h Dose, Preservative Free, Intrr 11/08/2022,11/27/2021,11/27/2019 Influenza, Split 11/29/2011 Influenza, Trivalent, High D ose, Split, Preservative Free, Intramuscular 11/21/2018,11/19/2017,11/20/2016,12/02,11/20/2013,11/19/2012 Influenza, Trivalent, IM (MDV) 11/29/2010,2007 Influenza, Trivalent, Recomb inant, Egg Free, Preservative Free, Antibiotic Free, IM (FLUBLOK) 11/10/2014 Influenza, Unspecified 09/27/2023(Deferr ed: Patient decision),11/27/2019,11/20/2017,2016 Pfizer SARS-CoV-2 Monovalent Vaccination (12+ Yrs) PURPLE 04/20/2020,03/23/2020 Pneumococcal Conjugate PCV 13 07/22/2014 Pneumococcal Polysaccharide PPV23 11/29/2010,,11/29/2001 RSV Vaccine, Pref, Recombina nt, Subunit, Adjuvanted, PF, IM (Arexvy) 11/08/2022 Td, adsorbed 02/16/2000 Tdap 02/25/2010 ZOSTER LIVE 04/03/2008 ZOSTER Recombinant 09/12/2018,05/16/2018 Surgical History Surgery Date Site/Laterality Comments TONSILLECTOMY CYSTOSCOPY HEMORRHOID SURGERY 11/28/2018 PROSTATE BIOPSY 02/20/2005 - 02/19/2006 Elevated PSA: survellience biopsy COLONOSCOPY 01/19/2021 Medical History Medical History Date Comments Sleep apnea Diabetes mellitus (HCC) Hyperlipidemia Elevated PSA Abnormal results of thyroid function studies 11/27/2018 PETE on CPAP Personal history of other me dical treatment Pt. 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 Not on file Obstetrics History Last Filed Vital Signs Vital Sign Reading Time Taken Comments Blood Pressure 136/76 09/27/2023 10:05 AM CDT Pulse 75 09/27/2023 10:05 AM CDT Temperature 36.3 ??C (97.4 ??F) 09/27/2023 1 0:05 AM CDT Respiratory Rate 18 09/27/2023 10:0 5 AM CDT Oxygen Saturation 93% 09/27/2023 10: 05 AM CDT Inhaled Oxygen Concentration - - Weight 117.8 kg (259 lb 9.6 oz) 024 10:05 AM CDT Height 177.8 cm (5' 10 ) 09/27/2023 10: 05 AM CDT Body Mass Index 37.25 09/27/2023 10:05 AM CDT Plan of Treatment Health Maintenance Due Date Last Done Comments Hepatitis B Screening 1963 DTaP/Tdap/Td Vaccine (2 - Td or Tdap) 02/26/2020 02/25/2010, 02/16/2000 Well Visit 65+ 02/25/2023 02/25/2022, 03/24, 11/28/2019, Additional history exists Foot Exam 09/13/2023 09/12/2022, 07/0 02/2021, 04/17/2020, Additional history exists Covid-19 Vaccine (2023-2 5 season) 2023 11/22/2022, 01/17/2022, 05/27/2021, Additional history exists Hemoglobin A1C 03/22/2024 09/20/2023, 02/21, 09/08/2022, Additional history exists Depression Screening 05/29/2024 05/30/2023, 03/22/2023, 02/25/2022, Additional history exists Fall Risk Assessment 05/29/2024 05/30/2023, 03/22/2023, 02/25/2022, Additional history exists Dilated Eye Exam 09/17/2024 09/18/2023, , 01/19/2022, Additional history exists Albumin Creatinine Ratio, Urine 09/19/2024 09/20/2023, 09/08/2022, 08/11/2021, Additional history exists Lipid Panel 09/19/2024 09/20/2023, 02/21, 09/08/2022, Additional history exists eGFR 09/19/2024 09/20/2023, 02/21, 09/08/2022, Additional history exists Pneumococcal vaccine 65+ Completed 015, 11/29/2010, 12/12/2009, Additional history exists Hepatitis C Screening Completed 12/01/2016 Zoster Vaccine Completed 09/12/2018, 04/21, 04/03/2008 Abdominal Aortic Aneurysm (A AA) Screen Completed 12/17/2018, 09/05/2016, 12/19/2013 Colon Cancer Screening-CT Colonography Discontinued 01/19/2021, 03/10/2017, 02/22/2010 Colon Cancer Screening-Colonoscopy Discontinued 01/19/2021, 03/10/2017, 02/22/2010 Colon Cancer Screening-DNA Stool Discontinued 01/19/2021, 03/10/2017, 02/22/2010 Colon Cancer Screening-FIT Discontinued 01/19, 03/10/2017, 02/22/2010 Colon Cancer Screening-FOBT Discontinued 12/23, 03/10/2017, 02/22/2010 Colon Cancer Screening-Sigmoidoscopy Discontinued 01/19/2021, 03/10/2017, 02/22/2010 Colorectal Cancer Screening Discontinued Influenza Vaccine Completed 10/09/2023, , 11/08/2022, Additional history exists Procedures Procedure Name Priority Date/Time Associated Diagnosis Comments SCAN - OTHER ORDERS 12/01/2023 9 :45 PM CDT COMPREHENSIVE METABOLIC PANEL Routine 09/20/2023 9:33 AM CDT 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 2 diabetes mellitus (CMS/HCC) (HCC) HEMOGLOBIN A1C Routine 09/20/2023 9:33 AM CDT Type 2 diabetes mellitus with other circulatory complication, with long-term current use of insulin (HCC) LIPID PANEL Routine 09/20/2023 9:33 AM CDT 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 2 diabetes mellitus (CMS/HCC) (HCC) ALBUMIN CREATININE RATIO, URINE Routine 09/20/2023 9:33 AM CDT Type 2 diabetes mellitus with other circulatory complication, with long-term current use of insulin (HCC) DIABETIC EYE EXAM Routine 09/18/2023 2:5 3 PM CDT COLONOSCOPY 01/19/2021 11:48 AM NIGHT NURSE DIABETIC FOOT EXAM Routine 09/05/2019 CT ABDOMEN W CONTRAST Schedule Routine, Read Routine (OP Routine) 12/17/2018 3:05 PM CDT Abnormal findings on diagnostic imaging of lung Acute right-sided thoracic back pain HEPATITIS C ANTIBODY Routine 12/01/2016 12:00 AM CDT Type 2 diabetes mellitus with other circulatory complication, unspecified supervisor intermediates insulin use status (CMS/HCC) from Last 3 Months or Most Recently Relevant to Health Maintenance Results * SCAN - OTHER ORDERS (12/01/2023 9:45 PM CDT) us Provider Scanning Final Result * (ABNORMAL) Albumin Creatinine Ratio, Urine (09/20/2023 9:33 AM CDT) Creatinine, ur 50 20 - 320 mg/dL [facility] Microalbumin, ur 27.4 See Note: mg/dL [facility] Comment: Reference Range: Reference Range Not established Microalbumin/creat ratio 548(H) <30 mg/g creat [facility] Comment: The ADA defines abnormalities in albumin excretion as follows: Albuminuria Category ?Result (mg/g creatinine) Normal to Mildly increased ?? <30 Moderately increased ? 30-299 Severely increased ? > OR = 300 The ADA recommends that at least two of three specimens collected within a 3-6 month period be abnormal before considering a patient to be within a diagnostic category. Urine 09/20/2023 9:33 AM CDT 09/20/2023 9:34 AM CDT Narrative [facility] - 09/21/2023 4:55 PM CDT FASTING:YES FASTING: YES Ronaldo Ulrich MD LAB URINE ORDERABLES Fin al Result [facility] [id number] [id number] * (ABNORMAL) Hemoglobin A1c (09/20/2023 9:33 AM CDT) Hgb A1C 7.9(H) <5.7 % of total Hgb [facility] Comment: For someone without known diabetes, a hemoglobin A1c value of 6.5% or greater indicates that they may have diabetes and this should be confirmed with a follow-up test. For someone with known diabetes, a value <7% indicates that their diabetes is well controlled and a value greater than or equal to 7% indicates suboptimal control. A1c targets should be individualized based on duration of diabetes, age, comorbid conditions, and other considerations. Currently, no consensus exists regarding use of hemoglobin A1c for diagnosis of diabetes for children. ? This test was performed on the Elyse christian c503 platform. Effective 05/08/23, a change in test platforms from the [employer] Sales Consultant to the Elyse christian c503 may have shifted HbA1c results compared to historical results. Based on laboratory validation testing conducted at [facility], the Elyse platform relative to the [employer] platform had an average increase in HbA1c value of < or = 0.3%. This difference is within accepted variability established by the National Glycohemoglobin Standardization Program. Note that not all individuals will have had a shift in their results and direct comparisons between historical and current results for testing conducted on different platforms is not recommended. Blood 09/20/2023 9:33 AM CDT 09/20/2023 9:34 AM CDT Narrative [facility] - 09/21/2023 4:55 PM CDT FASTING:YES FASTING: YES Ronaldo Ulrich MD LAB BLOOD ORDERABLES Fin al Result [facility] [address] [place] [address] * (ABNORMAL) Lipid panel (09/20/2023 9:33 AM CDT) Cholesterol 117 <200 mg/dL [facility] HDL 36(L) > OR = 40 mg/dL [facility] Triglycerides 207(H) <150 mg/dL [facility] Comment: If a non-fasting specimen was collected, consider repeat triglyceride testing on a fasting specimen if clinically indicated. Wilmer et al. J. of Clin. Lipidol. 2015;9:129-169. LDL 54 mg/dL (calc) [facility] Comment: Reference range: <100 Desirable range <100 mg/dL for primary prevention; ?? <70 mg/dL for patients with CHD or diabetic patients with > or = 2 CHD risk factors. LDL-C is now calculated using the Yuni calculation, which is a validated novel method providing better accuracy than the Friedewald equation in the estimation of LDL-C. Nishant SS et al. IRVING. 2013;310(19): 1600-7007 (http://education.Odeeo/faq/OBX301) Chol/HDL ratio 3.3 <5.0 (calc) [facility] Non-HDL, (LDL+VLDL) 81 <130 mg/dL (calc) [facility] Comment: For patients with diabetes plus 1 major ASCVD risk factor, treating to a non-HDL-C goal of <100 mg/dL (LDL-C of <70 mg/dL) is considered a therapeutic option. Blood 09/20/2023 9:33 AM CDT 09/20/2023 9:34 AM CDT Narrative [facility] - 09/21/2023 4:55 PM CDT FASTING:YES FASTING: YES us Ronaldo Ulrich MD LAB BLOOD ORDERABLES Fin al Result [facility] [address] [place] [address] * (ABNORMAL) Comprehensive metabolic panel (09/20/2023 9:33 AM CDT) Glucose 154(H) 65 - 99 mg/dL [facility] Comment: ? Fasting reference interval For someone without known diabetes, a glucose value >125 mg/dL indicates that they may have diabetes and this should be confirmed with a follow-up test. BUN 19 7 - 25 mg/dL [facility] Creatinine 1.16 0.70 - 1.28 mg/dL [facility] eGFR 64 > OR = 60 mL/min/1.7 3m2 [facility] BUN/creat ratio SEE NOTE: (calc) [facility] Comment: ?? Not Reported: BUN and Creatinine are within ?? reference range. ? Sodium 137 135 - 146 mmol/L [facility] Potassium, pl 4.1 3.5 - 5.3 mmol/L [facility] Chloride 100 98 - 110 mmol/L [facility] CO2 28 20 - 32 mmol/L [facility] [employer] [facility] Calcium 9.3 8.6 - 10.3 mg/dL [facility] Protein, sr 7.1 6.1 - 8.1 g/dL [facility] Albumin 4.1 3.6 - 5.1 g/dL [facility] GLOBULIN 3.0 1.9 - 3.7 g/dL (calc) [facility] Alb/glob ratio 1.4 1.0 - 2.5 (calc) [facility] Bilirubin, total 0.7 0.2 - 1.2 mg/dL [facility] Alk phos 79 35 - 144 U/L [facility] AST 14 10 - 35 U/L [facility] José ALT (SGPT) 14 9 - 46 U/L [facility] Blood 09/20/2023 9:33 AM CDT 09/20/2023 9:34 AM CDT Narrative [facility] - 09/21/2023 4:55 PM CDT FASTING:YES FASTING: YES us Ronaldo Ulrich MD LAB BLOOD ORDERABLES Fin al Result [facility] [address] [place] [address] * Diabetic Eye Exam (09/18/2023 2:53 PM CDT) us Historical Provider HEALTH MAINTENANCE Final Result * COLONOSCOPY (01/19/2021 11:48 AM NIGHT NURSE) Anatomical Region Laterality Modality Other Narrative Procedure Note Carson Roberts MD PhD - 01/19/2021 11:48 AM CST ENDOSCOPY LAB Patient Name: Ayden Santos Procedure Date: 01/19/2021 11:48AM Date of : 1945 Admit Type: Outpatient Age: 75 Gender: Male Attending MD: Carson Roberts MD,PHD Room: [facility] ENDOSCOPY ROOM 02 Note Status: Finalized Procedure: Colonoscopy Indications: High risk colon cancer surveillance: Personalhistory of colonic polyps, Last colonoscopy: February 2017 Providers: Carson Roberts MD, PHD Referring MD: Ronaldo Ulrich M.D. Medicines: Monitored Anesthesia Care Complications: No immediate complications. Estimated Blood Loss: Estimated blood loss: none. Procedure: Pre-Anesthesia Assessment: - Immediately prior to administration ofmedications, the patient was re-assessed for adequacy to receive sedatives. The benefits, risks and alternatives of theprocedure and sedation were discussed and informed consentwas obtained. All questions were answered. Please referto the signed informed consent document in the medical record. The scope was passed under direct vision.The [id number] was introduced through the anusand advanced to the terminal ileum. The colonoscopy was performed without difficulty. The patient tolerated the procedure well. The quality of the bowel preparation was good. The quality of the bowel preparation was evaluated using the BBPS (BostonBowel Preparation Scale) with scores of: Right Colon = 3 (entire mucosa seen well with no residual staining, small fragments of stool or opaque liquid),Transverse Colon = 3 (entire mucosa seen well with no residual staining, small fragments of stool or opaqueliquid) and Left Colon = 2 (minor amount of residualstaining, small fragments of stool and/or opaque liquid, but mucosa seen well). The total BBPS score equals 8.The bowel preparation used was polyethylene glycol(PEG) via split dose instruction. Bowel prep was administered using a split dose. Findings: The perianal and digital rectal examinations were normal. The terminal ileum appeared normal. A 15 mm polyp was found in the ascending colon. The polyp was Bernadette classification Is (protruding, sessile). The polyp was removed with a hot snare. Resection and retrieval were complete. To close a defect after polypectomy, one hemostatic clip was successfully placed (MR conditional). There was no bleeding during, or at the end, of the procedure. A 3 mm polyp was found in the ascending colon. The polyp was Bernadette classification Is (protruding, sessile). The polyp was removed with a cold snare. Resection and retrieval were complete. A 10 mm polyp was found in the descending colon. The polyp was Bernadette classification Is (protruding, sessile). The polyp was removed with a hot snare. Resection and retrieval were complete. Scattered small and large-mouthed diverticula were found fromdescending colon to sigmoid colon. The exam was otherwise without abnormality on direct and retroflexion views. Impression: - The examined portion of the ileum was normal. - One 15 mm polyp in the ascending colon, removedwith a hot snare. Resected and retrieved. Clip (MR conditional) was placed. - One 3 mm polyp in the ascending colon, removedwith a cold snare. Resected and retrieved. - One 10 mm polyp in the descending colon, removed with a hot snare. Resected and retrieved. - Diverticulosis from descending to sigmoidcolon. - The examination was otherwise normal on directand retroflexion views. Recommendation: - Await pathology results. - Repeat colonoscopy in 3 years for surveillancebased on pathology results. - High fiber diet. - Contact Information: During normal business hours - Please call theNurse Coordinator: [phone]. After hours, evening, nights, weekends and holidays- Please call the hospital transportation maintenance operator at and ask for the GI fellow electronic warfare technical. Attending Participation: I personally performed the entire procedure. Electronically signed by Carson Roberts MD. Carson Roberts MD, PHD 01/19/2021 12:22:26 PM Number of Addenda: 0 Note Initiated On: 01/19/2021 11:48 AM Carson Roberts MD PhD ENDOSCOPY PROCEDURES Anya l Result * Diabetic Foot Exam (09/05/2019) Historical Provider [facility] Edited Result - Final * CT Abdomen W Contrast (12/17/2018 3:05 PM CDT) Anatomical Region Laterality Modality Body N/A Computed Tomogra phy 12/17/2018 4:22 PM CDT Impressions 12/17/2018 4:22 PM CDT 1. Fatty liver. 2. Colonic diverticulosis. 3. Multivessel coronary artery calcifications. Electronically signed by: Jim Mccann M.D. Narrative 12/17/2018 4:22 PM CDT EXAMINATION: ??Computed tomography of the abdomen with intravenous contrast HISTORY: Fatty liver TECHNIQUE: ??Transaxial computed tomographic images of the abdomen were obtained with intravenous contrast according to the standard protocol after the uneventful administration of 125 mL Opti-Ray 350 intravenous contrast. COMPARISON: Computed tomography examination of the abdomen and pelvis 09/05/2016 FINDINGS: ?? Images through the lung bases demonstrate multilevel coronary artery calcifications. Stable subcentimeter mediastinal lymph nodes noted. There are no confluent pulmonary infiltrates or pleural effusions. There is diffuse hepatic steatosis. There are no focal liver lesions. The gallbladder, pancreas, spleen, both adrenal glands, and both kidneys appear normal. The bowel gas pattern and appendix appear normal. Colonic diverticulosis present. The abdominal aorta and branches are atherosclerotic. Images obtained with bone window settings demonstrate multilevel degenerative changes within the spine. There are no suspicious osseous abnormalities. Procedure Note Jim Mccann MD - 12/17/2018 EXAMINATION: Computed tomography of the abdomen with intravenous contrast HISTORY: Fatty liver TECHNIQUE: Transaxial computed tomographic images of the abdomen were obtained with intravenous contrast according to the standard protocol after the uneventful administration of 125 mL Opti-Ray 350 intravenous contrast. COMPARISON: Computed tomography examination of the abdomen and pelvis 09/05/2016 FINDINGS: Images through the lung bases demonstrate multilevel coronary artery calcifications. Stable subcentimeter mediastinal lymph nodes noted. There are no confluent pulmonary infiltrates or pleural effusions. There is diffuse hepatic steatosis. There are no focal liver lesions. The gallbladder, pancreas, spleen, both adrenal glands, and both kidneys appear normal. The bowel gas pattern and appendix appear normal. Colonic diverticulosis present. The abdominal aorta and branches are atherosclerotic. Images obtained with bone window settings demonstrate multilevel degenerative changes within the spine. There are no suspicious osseous abnormalities. IMPRESSION: 1. Fatty liver. 2. Colonic diverticulosis. 3. Multivessel coronary artery calcifications. Electronically signed by: Jim Mccann M.D. Xena Valencia GRAIN CLEANER IMG CT PROCEDURES Fi nal Result * Hepatitis C antibody (12/01/2016 12:00 AM CDT) Hep C Ab <0.1 0.0 - 0.9 s/co ratio [facility] - 01 Comment: ?Negative: ? < 0.8 ? Indeterminate: 0.8 - 0.9 ?Positive: ? > 0.9 The CDC recommends that a positive HCV antibody result be followed up with a HCV Nucleic Acid Amplification test (219049). Blood specimen (specimen) 12/01/2016 12/01/2016 Narrative [facility] - 12/02/2016 11:14 AM CDT Performed at: ??01 - [facility] [address] ??[id number] Mechanical Integrity Specialist: Woodrow Michel PhD, Phone: ??[phone] Xena Valencia NP LAB MICROBIOLOGY - G ENERAL ORDERABLES Final Result [facility] - 01 from Last 3 Months or Most Recently Relevant to Health Maintenance Insurance [employer] MEDICARE SOLUTIONS [employer] Advance Directives For more information, please contact: [phone] * Full Code (Latest Code Status on File) Date Activated Date Inactivated Comments 01/19/2021 9:58 AM 01/19/2021 5:23 PM Care Teams Editorial Cartoonist Relationship Specialty Start Date End Date Ronaldo Ulrich MD [address] [place] [address] PCP - General Internal Medicine 01/18/21
--- OUTSIDE RECORDS SUMMARY | 2024-02-10 01:42 | XMS_ITS | Referral Summary ---
Author Organization [facility] Address [address] [place] [address] Care Team Providers Care Postie Name Role Phone Ronaldo Ulrich MD Primary Care Provider + Encounters Date Type Department Care Team Description 12/01/2023 Orders Only [facility] Information Management [address] [place] [address] Scanning, Provider 11/17/2023 Telephone [facility] Primary Care [address] [place] [address] Ronaldo Ulrich MD Medical Records Request from Last 3 Months Allergies Active Allergy Reactions Criticality Noted Date [...] weeks. 3 kit 3 1 Active vit C,V-Xv-guxbd-lut ein-zeaxan 250-90-40-1 mg capsule Take 1 capsule [...] complication, with long-term current use of insulin ([facility]) Take 1 tablet (500 mg total) by [...] complication, with long-term current use of insulin ([facility]) TAKE 1 TABLET BY MOUTH EVERY [...] disease without heart failure,Coronary artery disease involving sleetmute coronary artery of sleetmute heart without angina pectoris TAKE 2 TABLETS [...] Farxiga Assessment & Plan (03/20/2023 1:35 PM LITURGICAL MUSIC DIRECTOR): Elevated urine microalbumin with preserved renal function. Continue irbesartan hydrochlorothiazide at and xiga Assessment & Plan (09/07/2022 11:23 AM CDT): Elevated urine microalbumin with preserved renal function. Continue irbesartan hydrochlorothiazide at and Farxiga Assessment & Plan (02/24/2022 12:51 PM LITURGICAL MUSIC DIRECTOR): Elevated urine microalbumin with preserved renal function. [...] finasteride Assessment & Plan (03/20/2023 1:34 PM LITURGICAL MUSIC DIRECTOR): Stable on finasteride Assessment & Plan (09/07/2022 11:23 AM CDT): Stable on finasteride Assessment & Plan (02/24/2022 12:54 PM LITURGICAL MUSIC DIRECTOR): Stable on finasteride Assessment & Plan (08/19/2021 7:22 AM CDT): Stable on finasteride Assessment & Plan (02/10/2021 12:20 PM LITURGICAL MUSIC DIRECTOR): Stable on finasteride Assessment & Plan (11/05/2020 12:15 PM CDT): Stable on finasteride Diabetic peripheral neuropat hy associated with type 2 diabetes mellitus ([facility]) 09/05/2019 Assessment & Plan (09/26/2023 7:15 AM CDT): Hemoglobin A1c is increased.. Continue metformin, Humalog, Farxiga, and Xultophy. Stress ADA diet Neuropathy controlled without medication Assessment & Plan (03/20/2023 1:34 PM LITURGICAL MUSIC DIRECTOR): Hemoglobin A1c is stable. Continue metformin, Humalog, Farxiga, and Xultophy Assessment & Plan (09/07/2022 11:23 AM CDT): Hemoglobin A1c is stable. Continue metformin, Humalog, Farxiga, and Xultophy Assessment & Plan (02/24/2022 12:52 PM LITURGICAL MUSIC DIRECTOR): Hemoglobin A1c is stable. Continue metformin, Humalog, Farxiga, and Xultophy Assessment & Plan (08/19/2021 7:21 AM CDT): Hemoglobin A1c is stable. Continue metformin, Humalog, Farxiga, and Xultophy. Neuropathy controlled with gabapentin Assessment & Plan (02/10/2021 12:19 PM LITURGICAL MUSIC DIRECTOR): Hemoglobin A1c is slowly improving on metformin, [...] sugars Assessment & Plan (04/20/2020 5:37 PM LITURGICAL MUSIC DIRECTOR): Numbness and tingling in the feet bilaterally, [...] it Assessment & Plan (03/20/2023 1:34 PM LITURGICAL MUSIC DIRECTOR): Uses CPAP nightly and benefits from it Assessment & Plan (09/07/2022 11:23 AM CDT): Uses CPAP nightly and benefits from it Assessment & Plan (02/24/2022 12:53 PM LITURGICAL MUSIC DIRECTOR): Uses CPAP nightly and benefits from it Assessment & Plan (08/19/2021 7:25 AM CDT): Uses CPAP nightly and benefits from it Assessment & Plan (02/10/2021 12:19 PM LITURGICAL MUSIC DIRECTOR): Uses CPAP nightly and benefits from it [...] Medicine. Assessment & Plan (03/07/2019 10:39 AM LITURGICAL MUSIC DIRECTOR): Continue CPAP use nightly and for naps. Patient is compliant and has good relief of daytime somnolence with CPAP use. Followed by Sleep Medicine. Chronic right-sided low back pain without sciati ca 02/07/2019 Assessment & Plan (05/30/2023 10:30 AM CDT): Resolved now. Will observe Assessment & Plan (02/07/2019 5:22 PM LITURGICAL MUSIC DIRECTOR): Gentle lumbar stretching exercises. Discussed value of weight loss for decreasing pain. Discussed lumbar x-ray but he would prefer to try stretching 1st. Atherosclerosis of aorta (CMS/HCC) 02/15/2018 Overview (09/05/2019): CT scan 11/21/2018 The abdominal aorta and branches are atherosclerotic. Assessment & Plan (09/26/2023 7:15 AM CDT): Stable on simvastatin and aspirin Assessment & Plan (03/20/2023 1:34 PM LITURGICAL MUSIC DIRECTOR): Stable on simvastatin and aspirin Assessment & Plan (09/07/2022 11:22 AM CDT): Stable on simvastatin and aspirin Assessment & Plan (02/24/2022 12:53 PM LITURGICAL MUSIC DIRECTOR): Stable on simvastatin aspirin Assessment & Plan (08/19/2021 7:23 AM CDT): Stable on simvastatin and aspirin Assessment & Plan (02/10/2021 12:19 PM LITURGICAL MUSIC DIRECTOR): Stable on simvastatin and aspirin Assessment & Plan (11/05/2020 12:13 PM CDT): Stable on simvastatin and aspirin Assessment & Plan (04/17/2020 11:02 AM LITURGICAL MUSIC DIRECTOR): Continue risk factor mangement. Assessment & Plan [...] orders Assessment & Plan (02/25/2018 1:23 PM LITURGICAL MUSIC DIRECTOR): Reviewed all diagnostics surgery referrals laboratory Answer all questions Reviewed all diagnostics surgery referrals laboratory Answer all questions Control dm htn lipid Call for le weakness abdominal pain fatigue Coronary artery disease invo lving sleetmute coronary artery of sleetmute heart without angina pectoris 04/07/2017 Overview (04/20/2020): [...] Jiménez Assessment & Plan (03/20/2023 1:33 PM LITURGICAL MUSIC DIRECTOR): Stable on aspirin, simvastatin, metoprolol, and Farxiga follows with Dr. Jiménez Assessment & Plan (09/07/2022 11:22 AM CDT): Stable on aspirin, simvastatin, metoprolol, and Farxiga follows with Dr. Jiménez Assessment & Plan (02/24/2022 12:52 PM LITURGICAL MUSIC DIRECTOR): Stable on aspirin, simvastatin, metoprolol, and Farxiga follows with Dr. Jmiénez Assessment & Plan (08/19/2021 7:20 AM CDT): Stable on aspirin, simvastatin, metoprolol, Farxiga, and aspirin. Follows with Dr. Jiménez Assessment & Plan (02/10/2021 12:20 PM LITURGICAL MUSIC DIRECTOR): Stable on aspirin, simvastatin, metoprolol, and irbesartan [...] Cardiology. Assessment & Plan (04/20/2020 5:35 PM LITURGICAL MUSIC DIRECTOR): Nonobstructing CAD. No angina. Preserved EF 60-70%. [...] regularly. Assessment & Plan (04/11/2019 5:37 PM LITURGICAL MUSIC DIRECTOR): No angina. Stable. Continue aspirin, beta-priscilla, ARB and statin for secondary prevention. Followed by Cardiology. Assessment & Plan (03/07/2019 6:29 PM LITURGICAL MUSIC DIRECTOR): Stable, no angina. Continue aspirin, beta-priscilla, ARB and statin for secondary prevention. Followed by Cardiology Assessment & Plan (02/20/2019 3:58 PM LITURGICAL MUSIC DIRECTOR): Stable, no angina. Follow-up is scheduled with his sand buffer. Assessment & Plan (11/27/2018 7:25 AM CDT): [...] regularly. Assessment & Plan (02/25/2018 1:23 PM LITURGICAL MUSIC DIRECTOR): No change Daily weights call for greater [...] 2023 Assessment & Plan (03/20/2023 1:34 PM LITURGICAL MUSIC DIRECTOR): Due for repeat colonoscopy in December of 2023 Assessment & Plan (09/07/2022 11:24 AM CDT): Due for repeat colonoscopy in 2023 Assessment & Plan (02/24/2022 12:53 PM LITURGICAL MUSIC DIRECTOR): Due for repeat colonoscopy in 2023 Assessment & Plan (08/19/2021 7:25 AM CDT): Had colonoscopy by Dr. Schmitt in December of 2020. Recommend repeat colonoscopy in 2023 Assessment & Plan (11/27/2018 7:26 AM CDT): Reviewed all diagnostics surgery referrals laboratory Answer all questions Fu colorectal and gi is not due Assessment & Plan (02/21/2017 9:17 AM LITURGICAL MUSIC DIRECTOR): 02/22/10 Dr. Marroquin, polyp, due x 5 [...] counseling. Assessment & Plan (03/20/2023 1:35 PM LITURGICAL MUSIC DIRECTOR): BMI Follow-up includes: exercise counseling. Assessment & Plan (09/07/2022 11:24 AM CDT): BMI Follow-up includes: exercise counseling. Assessment & Plan (02/24/2022 12:54 PM LITURGICAL MUSIC DIRECTOR): BMI Follow-up includes: exercise counseling. Assessment & Plan (08/19/2021 7:24 AM CDT): BMI Follow-up includes: exercise counseling. Assessment & Plan (02/10/2021 12:16 PM LITURGICAL MUSIC DIRECTOR): BMI Follow-up includes: exercise counseling. Assessment & [...] loss. Assessment & Plan (04/17/2020 10:49 AM LITURGICAL MUSIC DIRECTOR): BMI Follow-up includes: nutrition counseling, exercise counseling [...] provided. Assessment & Plan (04/11/2019 11:29 AM LITURGICAL MUSIC DIRECTOR): BMI Follow-up includes: nutrition counseling, exercise counseling and education provided. Assessment & Plan (03/07/2019 10:16 AM LITURGICAL MUSIC DIRECTOR): BMI Follow-up includes: nutrition counseling, exercise counseling and education provided. Assessment & Plan (02/18/2019 11:41 AM LITURGICAL MUSIC DIRECTOR): BMI Follow-up includes: nutrition counseling, exercise counseling [...] provided. Assessment & Plan (02/15/2018 9:45 AM LITURGICAL MUSIC DIRECTOR): BMI Follow-up includes: nutrition counseling, exercise counseling [...] provided. Assessment & Plan (03/27/2017 9:43 AM LITURGICAL MUSIC DIRECTOR): BMI Follow-up includes: nutrition counseling, exercise counseling and education provided. Assessment & Plan (02/21/2017 8:46 AM LITURGICAL MUSIC DIRECTOR): BMI Follow-up includes: nutrition counseling, exercise counseling and education provided. Assessment & Plan (01/11/2017 9:12 AM LITURGICAL MUSIC DIRECTOR): BMI Follow-up includes: nutrition counseling, exercise counseling [...] walking Assessment & Plan (02/16/2017 1:27 PM LITURGICAL MUSIC DIRECTOR): Ice not heat , Rest with periods [...] due to type 2 diabetes mellitus ( [facility]) 11/02/2015 Overview (05/26/2016): 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 2 diabetes mellitus Assessment & Plan (09/26/2023 7:14 AM CDT): Well controlled on simvastatin. Triglycerides improving. Assessment & Plan (03/20/2023 1:33 PM LITURGICAL MUSIC DIRECTOR): Well controlled on simvastatin. Triglycerides improving. Assessment & Plan (09/07/2022 11:22 AM CDT): Well controlled on simvastatin Assessment & Plan (02/24/2022 8:06 AM LITURGICAL MUSIC DIRECTOR): Well controlled on simvastatin Assessment & Plan (08/19/2021 7:20 AM CDT): Well controlled on simvastatin Assessment & Plan (02/10/2021 12:15 PM LITURGICAL MUSIC DIRECTOR): Well controlled on simvastatin Assessment & Plan (11/05/2020 12:12 PM CDT): Well controlled on simvastatin Assessment & Plan (09/03/2020 11:11 AM CDT): Lipids are well controlled. Continue statin therapy. Assessment & Plan (04/20/2020 5:45 PM LITURGICAL MUSIC DIRECTOR): Established CAD. LDL 42, which is at [...] provider Assessment & Plan (02/25/2018 1:22 PM LITURGICAL MUSIC DIRECTOR): Plan to eat meals same time each [...] . Assessment & Plan (04/24/2017 7:44 AM LITURGICAL MUSIC DIRECTOR): Lipid abnormalities are unchanged. Nutritional counseling was provided. and Pharmacotherapy as ordered. Lipids will be reassessed in 3 months see orders. Assessment & Plan (02/16/2017 1:27 PM LITURGICAL MUSIC DIRECTOR): Lipid abnormalities are unchanged. Nutritional counseling was [...] 2 diabetes mellitus wit h circulatory disorder ([facility]) 08/04/2011 Overview (06/19/2020): Diabetes mellitus type II, uncontrolled Coronary artery disease Able to tolerate only 500 mg of metformin Per day due to diarrhea Assessment & Plan (09/26/2023 7:14 AM CDT): Complicated by hypertension coronary artery disease. Hemoglobin A1c was increased.. Continue Humalog, Xultophy, Farxiga, and metformin. Stress ADA diet Assessment & Plan (03/20/2023 1:32 PM LITURGICAL MUSIC DIRECTOR): Complicated by hypertension coronary artery disease. Hemoglobin A1c continues to improve. Continue Humalog, Xultophy, Farxiga, and metformin. Assessment & Plan (09/07/2022 11:22 AM CDT): Complicated by hypertension coronary artery disease. Stable. Continue Humalog, Xultophy, Farxiga, and metformin. Assessment & Plan (02/24/2022 8:05 AM LITURGICAL MUSIC DIRECTOR): Complicated by hypertension coronary artery disease. Hemoglobin A1c is improving. Continue Humalog, Xultophy, Farxiga, and metformin. Assessment & Plan (08/20/2021 10:02 AM CDT): Complicated by hypertension and coronary artery disease. Hemoglobin A1c is stable, but still elevated. Continue Humalog, Xultophy, and metformin. Increased Farxiga 10 mg once day. Will try to arrange a insulin pump. Assessment & Plan (02/11/2021 10:42 AM LITURGICAL MUSIC DIRECTOR): Complicated by hypertension and coronary artery disease. [...] dose. Assessment & Plan (04/20/2020 5:30 PM LITURGICAL MUSIC DIRECTOR): Diabetes is not well controlled. Increase Xultopy [...] pump Assessment & Plan (12/22/2019 7:05 PM LITURGICAL MUSIC DIRECTOR): 11/28/19 Hgb A1C above goal at 8.9% Increase Xultopy to 50 units once daily. Continue premeal short acting insulin. He is taking 4 insulin injections daily and would qualify for a [employer] erick blood glucose monitor.Will order through specialty [...] days a week as suggested by his sand buffer. Discussed that this will help to control blood sugars. Extensive discussion of low-carbohydrate diet. He continues to find this hard to follow due to eating all of his meals out. He is really not willing to consider cooking at home. Discussed low carb ideas for dining out. Assessment & Plan (04/11/2019 5:42 PM LITURGICAL MUSIC DIRECTOR): Not well controlled with hemoglobin A1c of [...] often. Assessment & Plan (03/07/2019 6:32 PM LITURGICAL MUSIC DIRECTOR): Continue with exercise and weight loss. We [...] orders Assessment & Plan (02/25/2018 1:22 PM LITURGICAL MUSIC DIRECTOR): Stable Lab pending Reviewed past medication, medical, [...] orders Assessment & Plan (04/24/2017 7:47 AM LITURGICAL MUSIC DIRECTOR): Stable Lab pending Reviewed past medication, medical, [...] injury Assessment & Plan (02/21/2017 9:11 AM LITURGICAL MUSIC DIRECTOR): I have reviewed past medical, surgical, family, social and medication history. We have discussed the need for balanced nutrition utilizing the plate method which can be found at myplate.gov. We have discussed glycemic goals. Patient will [...] understanding. Assessment & Plan (02/16/2017 1:27 PM LITURGICAL MUSIC DIRECTOR): Stable Lab pending Reviewed past medication, medical, [...] NOS Assessment & Plan (03/20/2023 1:35 PM LITURGICAL MUSIC DIRECTOR): Stable on acyclovir Assessment & Plan (09/07/2022 11:24 AM CDT): Stable on acyclovir Assessment & Plan (02/24/2022 12:54 PM LITURGICAL MUSIC DIRECTOR): Stable on acyclovir Assessment & Plan (11/09/2020 [...] hydrochlorothiazide Assessment & Plan (03/20/2023 1:33 PM LITURGICAL MUSIC DIRECTOR): Well controlled on metoprolol and irbesartan hydrochlorothiazide Assessment & Plan (09/07/2022 11:22 AM CDT): Well controlled on metoprolol and irbesartan hydrochlorothiazide Assessment & Plan (02/24/2022 8:05 AM LITURGICAL MUSIC DIRECTOR): Well controlled on metoprolol and irbesartan hydrochlorothiazide Assessment & Plan (08/19/2021 7:19 AM CDT): Well controlled on metoprolol and irbesartan hydrochlorothiazide Assessment & Plan (02/10/2021 12:15 PM LITURGICAL MUSIC DIRECTOR): Well controlled on metoprolol and irbesartan hydrochlorothiazide [...] exercise. Assessment & Plan (04/11/2019 5:38 PM LITURGICAL MUSIC DIRECTOR): Blood pressure is well controlled. Continue valsartan HCT Reviewed low sodium diet and hidden sources of sodium in the diet to avoid. Assessment & Plan (03/07/2019 6:30 PM LITURGICAL MUSIC DIRECTOR): Blood pressure is well controlled. Continue valsartan HCT Reviewed low sodium diet and hidden sources of sodium in the diet to avoid. Assessment & Plan (02/20/2019 3:56 PM LITURGICAL MUSIC DIRECTOR): Blood pressure is well controlled. Continue irbesartan HCT Reviewed low sodium diet and hidden sources of sodium in the diet to avoid. Assessment & Plan (02/07/2019 10:47 AM LITURGICAL MUSIC DIRECTOR): Blood pressure is well controlled. Continue irbesartan [...] orders Assessment & Plan (02/25/2018 1:22 PM LITURGICAL MUSIC DIRECTOR): Hypertension is unchanged. Continue current treatment regimen. [...] orders Assessment & Plan (04/24/2017 7:44 AM LITURGICAL MUSIC DIRECTOR): Hypertension is unchanged. Continue current treatment regimen. [...] orders Assessment & Plan (02/16/2017 1:26 PM LITURGICAL MUSIC DIRECTOR): Borderline Hypertension is unchanged. Continue current treatment [...] to start another medication Other headache syndrome 02/25/2022 08/0 07/2023 Assessment & Plan (02/25/2022 9:37 AM LITURGICAL MUSIC DIRECTOR): Possibly secondary to hypertension since happens before he takes his medicine. Move second dose metoprolol to the evening. Trigger finger, left ring finger 02/11/2021 09/26/2023 Assessment & Plan (02/11/2021 10:47 AM LITURGICAL MUSIC DIRECTOR): Refer to hand specialist Acute bronchitis 01/21/2021 02/10/2021 Assessment & Plan (01/21/2021 3:33 PM LITURGICAL MUSIC DIRECTOR): Contact our office if no improvement after treatment, develop new symptoms or feeling worse at any point. History of colon polyps 11/25/2020 01/0 06/2022 Overview (11/25/2020): Added automatically from request for surgery [id number] Sciatica of right side 09/17/202009/25 Assessment & [...] 04/20/2020 Assessment & Plan (12/22/2019 8:10 AM LITURGICAL MUSIC DIRECTOR): Continues to half right hip pain 6 [...] 04/20/2020 Assessment & Plan (03/07/2019 6:33 PM LITURGICAL MUSIC DIRECTOR): Resolved with decrease in metformin to 500 mg daily. Assessment & Plan (02/20/2019 3:54 PM LITURGICAL MUSIC DIRECTOR): Symptoms improved with decreased metformin dose. He can use Imodium prior to eating out or to control urgency on the airplane. He has noted that high carbohydrate meals 10 to increase his symptoms and I encouraged him to continue to limit simple carbohydrates. Assessment & Plan (02/07/2019 5:21 PM LITURGICAL MUSIC DIRECTOR): Decrease metformin to 500 mg BID. Start [...] 11/28/2018. Assessment & Plan (02/07/2019 5:21 PM LITURGICAL MUSIC DIRECTOR): Pain has resolved post repair. Assessment & [...] surgery. Assessment & Plan (02/07/2019 5:23 PM LITURGICAL MUSIC DIRECTOR): Bright red bleeding probably due to internal [...] the patient for rtov I, Xena Valencia [employer] have personally reviewed pertinent Hospital/ER data including [...] 19 Assessment & Plan (02/25/2018 1:24 PM LITURGICAL MUSIC DIRECTOR): Ice elevate compression Xray neg some soft [...] 02/10/2021 Assessment & Plan (04/20/2020 5:46 PM LITURGICAL MUSIC DIRECTOR): Reviewed previous labs and diagnostic test results. [...] cancer Assessment & Plan (02/10/2021 12:17 PM LITURGICAL MUSIC DIRECTOR): Had colonoscopy by Dr. Roberts on January [...] well balance using plate method found at [email or web address] stay well hydrated with water and walk 5 days a week Assessment & Plan (08/16/2018 3:48 PM CDT): eat three meals a day same time each day well balance using plate method found at [email or web address] stay well hydrated with water and walk 5 days a week Assessment & Plan (06/01/2018 4:05 PM CDT): eat three meals a day same time each day well balance using plate method found at [email or web address] stay well hydrated with water and walk 5 days a week Assessment & Plan (02/25/2018 1:22 PM LITURGICAL MUSIC DIRECTOR): eat three meals a day same time each day well balance using plate method found at [email or web address] stay well hydrated with water and walk 5 days a week Type 2 diabetes mellitus wit h neurologic complication 12/03/2015 11/05/2020 Overview (05/26/2016): Type 2 diabetes mellitus with diabetic autonomic neuropathy, without long-term current use of insulin Assessment & Plan (02/07/2019 5:19 PM LITURGICAL MUSIC DIRECTOR): Reviewed diabetic foot care Assessment & Plan [...] orders Assessment & Plan (02/25/2018 1:23 PM LITURGICAL MUSIC DIRECTOR): Stable Lab pending Reviewed past medication, medical, [...] orders Assessment & Plan (04/24/2017 7:47 AM LITURGICAL MUSIC DIRECTOR): Stable Lab pending Reviewed past medication, medical, [...] podiatry Assessment & Plan (02/25/2018 1:22 PM LITURGICAL MUSIC DIRECTOR): Do not go barefoot Wear supportive shoes [...] podiatry Assessment & Plan (04/24/2017 7:44 AM LITURGICAL MUSIC DIRECTOR): Do not go barefoot Wear supportive shoes [...] hemorrhoids Assessment & Plan (04/17/2020 11:01 AM LITURGICAL MUSIC DIRECTOR): Refer to colorectal surgery. Continue stool softener [...] hemorrhoidectomy Assessment & Plan (02/10/2021 12:18 PM LITURGICAL MUSIC DIRECTOR): Had repeat colonoscopy by Dr. Roberts on January 19, 2021. Recommend follow-up colonoscopy in 3 years Assessment & Plan (11/05/2020 12:14 PM CDT): Due for repeat colonoscopy. Assessment & Plan (04/17/2020 10:48 AM LITURGICAL MUSIC DIRECTOR): Three year surveillance interval recommended by GI. Schedule colonoscopy. 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 Not on file Last Filed Vital Signs Vital Sign Reading [...] 09/27/2023 10:05 AM CDT Plan of Treatment Not on file Procedures Procedure Name Priority Date/Time Associated Diagnosis [...] 3 PM CDT COLONOSCOPY 01/19/2021 11:48 AM LITURGICAL MUSIC DIRECTOR DIABETIC FOOT EXAM Routine 09/05/2019 CT ABDOMEN W CONTRAST Schedule Routine, Read Routine (OP Routine) 12/17/2018 3:05 PM CDT Abnormal findings on diagnostic imaging of lung Acute right-sided thoracic back pain HEPATITIS C ANTIBODY Routine 12/01/2016 12:00 AM CDT Type 2 diabetes mellitus with other circulatory complication, unspecified retirement insulin use status (CMS/HCC) from Last 3 Months or Most Recently Relevant to Health Maintenance Results * SCAN - OTHER ORDERS (12/01/2023 9:45 PM CDT) us Provider Scanning Final Result * (ABNORMAL) Albumin Creatinine Ratio, Urine (09/20/2023 9:33 AM CDT) Creatinine, ur 50 20 - 320 mg/dL [facility] Microalbumin, ur 27.4 See Note: mg/dL [facility] Comment: Reference Range: Reference Range Not established Microalbumin/creat ratio 548(H) <30 mg/g creat [facility] Comment: The ADA defines abnormalities in [...] MD LAB URINE ORDERABLES Fin al Result [facility] [address] [place] [address] * (ABNORMAL) Hemoglobin A1c (09/20/2023 9:33 AM CDT) Hgb A1C 7.9(H) <5.7 % of total Hgb [facility] Comment: For someone without known diabetes, [...] ? This test was performed on the [employer] christian c503 platform. Effective 05/08/23, a change in test platforms from the [employer] to the [employer] christian c503 may have shifted HbA1c results compared to historical results. Based on laboratory validation testing conducted at [employer], the [employer] platform relative to the [place] [...] MD LAB BLOOD ORDERABLES Fin al Result [facility] [address] [place] [address] * (ABNORMAL) Lipid panel (09/20/2023 9:33 AM CDT) [facility] Cholesterol 117 <200 mg/dL [facility] HDL 36(L) > OR = 40 mg/dL [facility] Triglycerides 207(H) <150 mg/dL [facility] Comment: If a non-fasting specimen was collected, consider repeat triglyceride testing on a fasting specimen if clinically indicated. Wilmer et al. J. of Clin. Lipidol. 2015;9:129-169. LDL 54 mg/dL (calc) [facility] Comment: Reference range: <100 Desirable range <100 mg/dL for primary prevention; ?? <70 mg/dL for patients with CHD or diabetic patients with > or = 2 CHD risk factors. LDL-C is now calculated using the Nishant-Lizeth calculation, which is a validated novel method providing better accuracy than the Friedewald equation in the estimation of LDL-C. Nishant SS et al. [place]. 2013;310(19): 1280-6318 (http://education.[employer]/faq/CKE945) Chol/HDL ratio 3.3 <5.0 (calc) [facility] Non-HDL, (LDL+VLDL) 81 <130 mg/dL (calc) [facility] Comment: For patients with diabetes plus 1 major ASCVD risk factor, treating to a non-HDL-C goal of <100 mg/dL (LDL-C of <70 mg/dL) is considered a therapeutic option. Blood 09/20/2023 9:33 AM CDT 09/20/2023 9:34 AM CDT Narrative [facility] - 09/21/2023 4:55 PM CDT FASTING:YES FASTING: YES us Ronaldo Ulrich MD LAB BLOOD ORDERABLES Fin al Result [facility] [address] [place] [address] * (ABNORMAL) Comprehensive metabolic panel (09/20/2023 9:33 AM CDT) Glucose 154(H) 65 - 99 mg/dL [facility] Comment: ? Fasting reference interval For someone without known diabetes, a glucose value >125 mg/dL indicates that they may have diabetes and this should be confirmed with a follow-up test. BUN 19 7 - 25 mg/dL [facility] Creatinine 1.16 0.70 - 1.28 mg/dL [facility] eGFR 64 > OR = 60 mL/min/1.7 3m2 [facility] BUN/creat ratio SEE NOTE: 6 (calc) [facility] Comment: ?? Not Reported: BUN and Creatinine are within ?? reference range. ? Sodium 137 135 - 146 mmol/L [facility] Potassium, pl 4.1 3.5 - 5.3 mmol/L [facility] Chloride 100 98 - 110 mmol/L [facility] CO2 28 20 - 32 mmol/L [facility] Calcium 9.3 8.6 - 10.3 mg/dL [facility] Protein, sr 7.1 6.1 - 8.1 g/dL [facility] Albumin 4.1 3.6 - 5.1 g/dL [facility] GLOBULIN 3.0 1.9 - 3.7 g/dL (calc) [facility] Alb/glob ratio 1.4 1.0 - 2.5 (calc) [facility] Bilirubin, total 0.7 0.2 - 1.2 mg/dL [facility] Alk phos 79 35 - 144 U/L [facility] AST 14 10 - 35 U/L [facility] ALT (SGPT) 14 9 - 46 U/L [facility] Blood 09/20/2023 9:33 AM CDT 09/20/2023 9:34 AM CDT Narrative [facility] - 09/21/2023 4:55 PM CDT FASTING:YES FASTING: YES Ronaldo Ulrich MD LAB BLOOD ORDERABLES Fin al Result [facility] [address] [place] [address] * Diabetic Eye Exam (09/18/2023 2:53 PM CDT) us Historical Provider HEALTH MAINTENANCE Final Result * COLONOSCOPY (01/19/2021 11:48 AM LITURGICAL MUSIC DIRECTOR) Anatomical Region Laterality Modality Other Narrative Procedure Note Carson Roberts MD PhD - 01/19/2021 11:48 AM CST ENDOSCOPY LAB Patient Name: Ayden Santos Procedure Date: 01/19/2021 11:48AM Date of : 1945 Admit Type: Outpatient Age: 75 Gender: Male Attending MD: Carson Roberts MD,PHD Room: [facility] ENDOSCOPY ROOM 02 Note Status: Finalized Procedure: [...] The scope was passed under direct vision.The [id number] was introduced through the anusand advanced to [...] During normal business hours - [facility] [place] [facility]: [phone]. After hours, evening, nights, weekends and holidays- Please call the hospital batch or continuous still operator at and ask for the GI fellow immigration paralegal. Attending Participation: I personally performed the entire procedure. Electronically signed by Carson Roberts MD. Carson Roberts MD, PHD 01/19/2021 12:22:26 PM Number of Addenda: 0 Note Initiated On: 01/19/2021 11:48 AM us Carson Roberts MD PhD ENDOSCOPY PROCEDURES Anya l Result * Diabetic Foot Exam (09/05/2019) us Historical Provider [facility] Edited Result - Final * CT Abdomen [...] signed by: Jim Mccann M.D. Xena Valencia NP IMG CT PROCEDURES Fi nal Result * Hepatitis C antibody (12/01/2016 12:00 AM CDT) Hep C Ab <0.1 0.0 - 0.9 s/co ratio [facility] - 01 Comment: ?Negative: ? < 0.8 ? Indeterminate: 0.8 - 0.9 ?Positive: ? > 0.9 The CDC recommends that a positive HCV antibody result be followed up with a HCV Nucleic Acid Amplification test (364451). Blood specimen (specimen) 12/01/2016 12/01/2016 Narrative [facility] - 12/02/2016 11:14 AM CDT Performed at: ??01 - [facility] [address] ??[id number] Full Stack Software Developer: Woodrow Michel PhD, Phone: ??[phone] Xena Valencia NP LAB MICROBIOLOGY - G ENERAL ORDERABLES Final Result [facility] - 01 from Last 3 Months or Most Recently Relevant to Health Maintenance Insurance [employer] MEDICARE MEDICARE SOLUTIONS AET[employer] MEDICARE Advance Directives For more information, please contact: [phone] * Full Code (Latest Code Status on File) Date Activated Date Inactivated Comments 01/19/2021 9:58 AM 01/19/2021 5:23 PM Care Teams Postie Relationship Specialty Start Date End Date Ronaldo Ulrich MD [address] [place] [address] PCP - General Internal Medicine 01/18/21
--- OUTSIDE RECORDS SUMMARY | 2024-02-10 01:42 | XMS_ITS | Encounter Summary ---
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 400 each 1 11/06/2023 documented in this encounter Miscellaneous Notes * Telephone Encounter - Shari Honeycutt MA - 11/06/2023 2:20 PM CDT Rx sent * Telephone Encounter - Nena Jackson - 11/06/2023 2:01 PM CDT Medication Refill Patient's last Office/Video Visit: 09.27.23 Patient's next Office/Video Visit: 04.03.24 Medication(s) Name/Dose: 31G X 14 inches 025 X 6mm Pen [place] (inject one to four times daily as directed) Pharmacy (s) medication(s) should be sent to: [facility]/pharmacy #[id number] [place], [place] - [address] [place] [address] Additional Comments: Patient stating he is needing a new prescription for the Pen [place], stated it was last filled in 2019. He also stated this was last filled by a provider he no longer see. Does message need to be routed? Yes-Action Needed documented in this encounter Plan of Treatment Not on file documented as of this encounter Visit Diagnoses Not on filedocumented in this encounter Care Teams It Infrastructure Engineer Relationship Specialty Start Date End Date Ronaldo Ulrich MD [address] [place] [address] PCP - General Internal Medicine 11/29/21 documented as of this encounter
--- OUTSIDE RECORDS SUMMARY | 2024-02-10 01:42 | XMS_ITS | Encounter Summary ---
Author Organization Formerly [facility] Address [address] [place] [address] Care Team Providers Care Refund Clerk Name Role Phone Ronaldo Ulrich MD Primary Care Provider + Reason for Visit * Reason Comments Follow-up 6 month, DM, HTN, CA D, hyperlipidemia. Pt went to eye Dr due to seeing wavy lines where they should be straight. Pt is still having tremors in his hands that is worse in the afternoon. 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 2 diabetes mellitus (CMS/HCC) (HCC); Hypertensive heart disease without heart failure; Coronary artery disease involving stebbins coronary artery of stebbins heart without angina pectoris; 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 mellitus (CMS/HCC) (HCC); Atherosclerosis of aorta (CMS/HCC) (HCC); Obstructive sleep apnea; Benign prostatic hyperplasia without lower urinary tract symptoms; Diabetic nephropathy associated with type 2 diabetes mellitus (HCC); History of colon polyps; Class 2 severe obesity due to excess calories with serious comorbidity and body mass index (BMI) of 37.0 to 37.9 in adult (HCC); Benign essential tremor Social History Tobacco Use Types Packs/Day Years Used Date Smoking Tobacco: Former Cigarettes 1 35 1 8 - 1982 Smokeless Tobacco: Never Comments:Smoking History Pac ks/day: [...] on file 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 Gender Identity Not on file Sexual Orientation Not on file 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 Not on file documented as of this encounter Last Filed Vital Signs Vital Sign Reading [...] Mass Index 37.25 09/27/2023 10:05 AM CDT documented in this encounter Ordered Prescriptions Prescription Sig Dispense Quantity Refills Last Filled Start Date End Date tamsulosin (FLOMAX) 0.4 mg extended release capsuleIndications :Benign prostatic hyperplasia without lower urinary tract symptoms Take 1 capsule (0.4 mg total) by mouth nightly 90 capsule 1 09/27/2023 metFORMIN (GLUCOPHAGE) 500 mg tabletIndications: Type 2 diabetes mellitus with other circulatory complication, with long-term current use of insulin ([facility]) Take 1 tablet (500 mg total) by mouth 2 (two) times a day with meals 180 tablet 1 09/27/2023 simvastatin (ZOCOR) 40 mg tabletIndications: 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 270 tablet 1 09/27/2023 4 acyclovir (ZOVIRAX) 400 mg tablet Take 1 tablet (400 mg total) by mouth 2 (two) times a day 180 tablet 1 09/27/2023 4 documented in this encounter Progress Notes * Ronaldo Ulrich MD - 09/27/2023 10:00 AM CDT Images from the original note were not included. Subjective/Objective Patient ID: Ayden Santos is a 77 y.o. male. Assessment/Plan Diagnoses and all orders for this visit: Type 2 diabetes mellitus with other circulatory complication, with long-term current use of insulin([facility]) (Primary) Assessment & Plan: Complicated by hypertension coronary artery disease. Hemoglobin A1c was increased.. Continue Humalog, Xultophy, Farxiga, and metformin. 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 Triglycerides improving. Orders: - simvastatin (ZOCOR) 40 mg tablet; Take 1 tablet (40 mg total) by mouth nightly - Comprehensive metabolic panel; Future - Lipid panel; Future Hypertensive heart disease without heart failure Assessment & Plan: Well controlled on metoprolol and irbesartan hydrochlorothiazide Orders: - metoprolol tartrate (LOPRESSOR) 50 mg immediate release tablet; Take 2 tablets (100 mg total) by mouth every morning AND 1 tablet (50 mg total) daily with lunch. Coronary artery disease involving stebbins coronary artery of stebbins heart without angina pectoris Assessment & Plan: Stable on aspirin, simvastatin, metoprolol, and Farxiga follows with Dr. Jiménez Orders: - metoprolol tartrate (LOPRESSOR) 50 mg immediate release tablet; Take 2 tablets (100 mg total) by mouth every morning AND 1 tablet (50 mg total) daily with lunch. 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 mellitus ([facility]) ([facility]) Assessment & Plan: Hemoglobin A1c is increased.. Continue metformin, Humalog, Farxiga, and Xultophy. Stress ADA diet Neuropathy controlled without medication Atherosclerosis of aorta ([facility]) ([facility]) Assessment & Plan: Stable on simvastatin and aspirin Obstructive sleep apnea Assessment & Plan: Uses CPAP nightly and benefits from it Benign prostatic hyperplasia without lower urinary tract symptoms Assessment & Plan: Stable on finasteride Orders: - tamsulosin (FLOMAX) 0.4 mg extended release capsule; Take 1 capsule (0.4 mg total) by mouth nightly Diabetic nephropathy associated with type 2 diabetes mellitus ([facility]) Assessment & Plan: Elevated urine microalbumin with preserved renal function. Continue irbesartan hydrochlorothiazide and Farxiga History of colon polyps Assessment & Plan: Due for repeat colonoscopy in December of 2023 Class 2 severe obesity due to excess calories with serious comorbidity and body mass index (BMI) of37.0 to 37.9 in adult ([facility]) Assessment & Plan: BMI Follow-up includes: exercise counseling. Benign essential tremor Assessment & Plan: Discussed treatment options. Can not use propranolol because he is already on metoprolol. Discussedtreatment with primidone. He does not want to start medication at this time. Other orders - acyclovir (ZOVIRAX) 400 mg tablet; Take 1 tablet (400 mg total) by mouth 2 (two) times a day Chief Complaint Follow-up for chronic conditions. HPI: Ayden is here for a six-month follow-up for type 2 diabetes mellitus., HTN, CAD, and hyperlipidemia. He complains of tremors in his hands. It is worse in the morning and improves by the afternoon. Current Outpatient Medications Medication Sig Dispense Refill aspirin 81 mg chewable tablet Take 1 tablet (81 mg total) by mouth daily 30 tablet 11 blood glucose diagnostic (ONETOUCH VERIO) strip smbg bid ac 100 each 11 blood-glucose sensor device Use daily 1 each 0 cholecalciferol (VITAMIN D-3) 2,000 unit capsule Take 1 capsule (2,000 Units total) by mouth daily coenzyme Q10 (COQ-10) 100 mg capsule take 3 by Oral route every evening 0 0 dapagliflozin propanediol (Farxiga) 10 mg tablet Take 1 tablet (10 mg total) by mouth daily 90 tablet 1 finasteride (PROSCAR) 5 mg tablet Take 1 tablet (5 mg total) by mouth daily 90 tablet 1 flash glucose sensor (FreeStyle Erick 2 Sensor) kit Change sensor every two weeks. 3 kit 3 insulin lispro (ADMELOG) 100 unit/mL pen for injection INJECT FOR :131-150 2 UNITS, 151-180 4 UNITS, 181-200 6 UNITS, 201-230 8 UNITS, 231-250 10 UNITS, MAX DOSE 30 UNITS PER DAY 15 mL 0 irbesartan-hydroCHLOROthiazide (AVALIDE) 300-12.5 mg per tablet Take 1 tablet by mouth daily 90 tablet 1 [facility] C-Pap vit C,P-Vu-aqvfb-lutein-zeaxan 250-90-40-1 mg capsule Take 1 capsule by mouth daily Xultophy 100/3.6 100 unit-3.6 mg /mL (3 mL) insulin pen pen INJECT 50 UNITS INTO THE SKIN DAILY 45 mL 1 acyclovir (ZOVIRAX) 400 mg tablet Take 1 tablet (400 mg total) by mouth 2 (two) times a day 180 tablet 1 metFORMIN (GLUCOPHAGE) 500 mg tablet Take 1 tablet (500 mg total) by mouth 2 (two) times a day withmeals 180 tablet 1 metoprolol tartrate (LOPRESSOR) 50 mg immediate release tablet Take 2 tablets (100 mg total) by mouth every morning AND 1 tablet (50 mg total) daily with lunch. 270 tablet 1 simvastatin (ZOCOR) 40 mg tablet Take 1 tablet (40 mg total) by mouth nightly 90 tablet 1 subcutaneous insulin pump [facility] [place] As directed daily (Patient not taking: Reported on 02/25/2022) 1 each 0 tamsulosin (FLOMAX) 0.4 mg extended release capsule Take 1 capsule (0.4 mg total) by mouth nightly 90 capsule 1 vitamin B complex capsule Take 1 capsule by mouth daily (Patient not taking: Reported on 02/25/2022) No current facility-administered medications for this visit. Review of Systems: Review of Systems Constitutional: Negative for appetite change, chills and fever. HENT: Negative for congestion, ear pain, rhinorrhea and sore throat. Eyes: Negative for pain, discharge and visual disturbance. Respiratory: Negative for cough, shortness of breath and wheezing. Cardiovascular: Negative for chest pain, palpitations and leg swelling. Gastrointestinal: Negative for constipation, diarrhea and nausea. Endocrine: Negative for cold intolerance and heat intolerance. Genitourinary: Negative for difficulty urinating, dysuria and urgency. Musculoskeletal: Negative for back pain and joint swelling. Skin: Negative for color change and rash. Allergic/Immunologic: Negative for immunocompromised state. Neurological: Negative for dizziness, numbness and headaches. Hematological: Does not bruise/bleed easily. Psychiatric/Behavioral: Negative for agitation and decreased concentration. The patient is not nervous/anxious. Labs: Recent Results (from the past 1008 hour(s)) Comprehensive metabolic panel Collection Time: 09/20/23 9:33 AM Result Value Ref Range Glucose 154 (H) 65 - 99 mg/dL BUN 19 7 - 25 mg/dL Creatinine 1.16 0.70 - 1.28 mg/dL eGFR 64 > OR = 60 mL/min/1.73m2 BUN/creat ratio SEE NOTE: 6 - 22 (calc) Sodium 137 135 - 146 mmol/L Potassium, pl 4.1 3.5 - 5.3 mmol/L Chloride 100 98 - 110 mmol/L CO2 28 20 - 32 mmol/L Calcium 9.3 8.6 - 10.3 mg/dL Protein, sr 7.1 6.1 - 8.1 g/dL Albumin 4.1 3.6 - 5.1 g/dL GLOBULIN 3.0 1.9 - 3.7 g/dL (calc) Alb/glob ratio 1.4 1.0 - 2.5 (calc) Bilirubin, total 0.7 0.2 - 1.2 mg/dL Alk phos 79 35 - 144 U/L AST 14 10 - 35 U/L ALT (SGPT) 14 9 - 46 U/L Hemoglobin A1c Collection Time: 09/20/23 9:33 AM Result Value Ref Range Hgb A1C 7.9 (H) <5.7 % of total Hgb Lipid panel Collection Time: 09/20/23 9:33 AM Result Value Ref Range Cholesterol 117 <200 mg/dL HDL 36 (L) > OR = 40 mg/dL Triglycerides 207 (H) <150 mg/dL LDL 54 mg/dL (calc) Chol/HDL ratio 3.3 <5.0 (calc) Non-HDL, (LDL+VLDL) 81 <130 mg/dL (calc) Albumin Creatinine Ratio, Urine Collection Time: 09/20/23 9:33 AM Result Value Ref Range Creatinine, ur 50 20 - 320 mg/dL Microalbumin, ur 27.4 See Note: mg/dL Microalbumin/creat ratio 548 (H) <30 mg/g creat Physical Exam: BP 136/76 (BP Location: Right arm, Patient Position: Sitting) Pulse 75 Temp 36.3 ??C (97.4 ??F)(Skin) Resp 18 Ht 177.8 cm (5' 10 ) Wt 117.8 kg (259 lb 9.6 oz) SpO2 93% BMI 37.25 kg/m?? Physical Exam Constitutional: Appearance: He is well-developed. HENT: Head: Normocephalic and atraumatic. Cardiovascular: Rate and Rhythm: Normal rate and regular rhythm. Heart sounds: Normal heart sounds. No murmur heard. No friction rub. No gallop. Pulmonary: Breath sounds: Normal breath sounds. No wheezing or rales. Abdominal: General: Bowel sounds are normal. There is no distension. Palpations: Abdomen is soft. Tenderness: There is no abdominal tenderness. Skin: General: Skin is warm and dry. Findings: No rash. Neurological: Mental Status: He is alert and oriented to person, place, and time. Ronaldo Ulrich MD documented in this encounter Miscellaneous Notes * Assessment & Plan Note - Ronaldo Ulrich MD - 09/27/2023 10:09 AM CDT Associated Problem(s): Benign essential tremor Discussed treatment options. Can not use propranolol because he is already on metoprolol. Discussedtreatment with primidone. He does not want to start medication at this time. * Assessment & Plan Note - Ronaldo Ulrich MD - 09/26/2023 7:17 AM CDT Associated Problem(s): Class 2 severe obesity due to excess calories with serious comorbidity and body mass index (BMI) of 37.0 to 37.9 in adult (HCC) BMI Follow-up includes: exercise counseling. * Assessment & Plan Note - Ronaldo Ulrich MD - 09/26/2023 7:17 AM CDT Associated Problem(s): History of colon polyps Due for repeat colonoscopy in December of 2023 * Assessment & Plan Note - Ronaldo Ulrich MD - 09/26/2023 7:16 AM CDT Associated Problem(s): Diabetic nephropathy associated with type 2 diabetes mellitus (HCC) Elevated urine microalbumin with preserved renal function. Continue irbesartan hydrochlorothiazide and Farxiga * Assessment & Plan Note - Ronaldo Ulrich MD - 09/26/2023 7:15 AM CDT Associated Problem(s): Benign prostatic hyperplasia without lower urinary tract symptoms Stable on finasteride * Assessment & Plan Note - Ronaldo Ulrich MD - 09/26/2023 7:15 AM CDT Associated Problem(s): Obstructive sleep apnea Uses CPAP nightly and benefits from it * Assessment & Plan Note - Ronaldo Ulrich MD - 09/26/2023 7:15 AM CDT Associated Problem(s): Atherosclerosis of aorta (CMS/HCC) ([facility]) Stable on simvastatin and aspirin * Assessment & Plan Note - Ronaldo Ulrich MD - 09/26/2023 7:15 AM CDT Associated Problem(s): 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 mellitus (CMS/HCC) ([facility]) Hemoglobin A1c is increased.. Continue metformin, Humalog, Farxiga, and Xultophy. Stress ADA diet Neuropathy controlled without medication * Assessment & Plan Note - Ronaldo Ulrich MD - 09/26/2023 7:14 AM CDT Associated Problem(s): Coronary artery disease involving stebbins coronary artery of stebbins heart without angina pectoris Stable on aspirin, simvastatin, metoprolol, and Farxiga follows with Dr. 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 Triglycerides improving. * Assessment & Plan Note - Ronaldo Ulrich MD - 09/26/2023 7:14 AM CDT Associated Problem(s): Type 2 diabetes mellitus with circulatory disorder ([facility]) ([facility]) Complicated by hypertension coronary artery disease. Hemoglobin A1c was increased.. Continue Humalog, Xultophy, Farxiga, and metformin. 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 2 diabetes mellitus ([facility]) ([facility]) Expected: 03/29/2024, Expires: 09/26/2024 Hemoglobin A1c Lab Routine Type 2 diabetes mellitus with other circulatory complication, with long-term current use of insulin ([facility]) Expected: 03/29/2024, Expires: 09/26/2024 Lipid panel Lab Routine 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 2 diabetes mellitus ([facility]) ([facility]) Expected: 03/29/2024, Expires: 09/26/2024 documented as of this encounter Visit Diagnoses Diagnosis Type 2 diabetes mellitus with other circulatory complication, with long-term current use of insulin ([facility])- Primary 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 2 diabetes mellitus ([facility]) ([facility]) Hypertensive heart disease without heart failure Unspecified hypertensive heart disease without heart failure Coronary artery disease involving stebbins coronary artery of stebbins heart without angina pectoris 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 mellitus ([facility]) ([facility]) Atherosclerosis of aorta ([facility]) ([facility]) Atherosclerosis of aorta Obstructive sleep apnea Obstructive sleep apnea (adult) (pediatric) Benign prostatic hyperplasia without lower urinary tract symptoms Diabetic nephropathy associated with type 2 diabetes mellitus ([facility]) History of colon polyps Class 2 severe obesity due to excess calories with serious comorbidity and body mass index (BMI) of 37.0 to 37.9 in adult ([facility]) Benign essential tremor Essential and other specified forms of tremor documented in this encounter Discontinued Medications Medication Sig Discontinue Reason Start Date End Da te tamsulosin (FLOMAX) 0.4 mg extended release capsule Take 1 capsule (0.4 mg total) by mouth nightly Reorder 01/02/2023 09/27/2023 simvastatin (ZOCOR) 40 mg tabletIndications:Hyper lipidemia due to type 2 diabetes mellitus (HCC) Take 1 tablet (40 mg total) by mouth nightly Reorder 03/22/2023 09/27/2023 acyclovir (ZOVIRAX) 400 mg tablet TAKE 1 TABLET (400 MG TOTAL) BY MOUTH 2 TIMES A DAY Reorder 07/10/2023 09/27/2023 metoprolol tartrate (LOPRESSOR) 50 mg immediate release tabletIndications:Hyper tensive heart disease without heart failure,Coronary artery disease involving stebbins coronary artery of stebbins heart without angina pectoris TAKE 2 TABLETS (100 MG TOTAL) BY MOUTH EVERY MORNING AND 1 TABLET (50 MG TOTAL) DAILY WITH LUNCH. Reorder 07/10/2023 09/27/2023 metFORMIN (GLUCOPHAGE) 500 mg tabletIndications:Type 2 diabetes mellitus with other circulatory complication, with long-term current use of insulin (HCC) TAKE 1 TABLET BY MOUTH TWICE A DAY WITH MEALS Reorder 09/05/2023 09/27/2023 albuterol HFA (PROVENTIL HFA,VENTOLIN HFA,PROAIR HFA) 90 mcg/actuation inhalerIndications:Uppe r respiratory tract infection, unspecified type Inhale 2 puffs every 6 (six) hours as needed for wheezing or shortness of breath for up to 10 days Therapy completed 06/12/2023 09/27/2023 documented as of this encounter Care Teams Refund Clerk Relationship Specialty Start Date End Date Ronaldo Ulrich MD [address] [place] [address] PCP - General Internal Medicine 01/18/21 documented as of this encounter
--- OUTSIDE RECORDS SUMMARY | 2024-02-10 01:42 | XMS_ITS | Encounter Summary ---
Author Organization [facility] Address [address] [place] [address] Care Team Providers Care City Planner Name Role Phone Ronaldo Ulrich MD Primary Care Provider + Reason for Visit * Reason Onset Date Comments Medical Records Request 11/17/2023 Encounter Details Date Type Department Care Team (Late st Contact Info) Description 11/17/2023 Telephone [facility] Primary Care [address] [place] [address] Ronaldo Ulrich MD [address] [place], [place] [id number] Medical Records Request Social History Tobacco Use Types Packs/Day Years Used Date Smoking Tobacco: Former Cigarettes 1 35 1 948 - 2431 Smokeless Tobacco: Never Comments:Smoking History Pac ks/day: [...] on file 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 * Telephone Encounter - Lexis Alvarez - 11/17/2023 11:09 AM CDT Medical Records Request Request Type: Records Request NETTA form needed and request will be handled by [employer] What records are being requested: last 2 visit notes Who is requesting the records? Third Alliance Party or other (e.g. [employer], [employer] Supervisor, Insurance) How does the caller want to obtain the HIPAA Authorization for Release of Information form? fax Fax Number to use for return of forms: [phone] How will caller return form? will fax to HIM at [phone] Additional Comments: Ashley jones/ [employer] calling in to follow up on chart notes requests , per8.20 notes the request needs to go through HIM. Provided fax number and advised of need for NETTA Does message need to be routed? Yes-Action Needed documented in this encounter Plan of Treatment Not on file documented as of this encounter Visit Diagnoses Not on filedocumented in this encounter Care Teams City Planner Relationship Specialty Start Date End Date Ronaldo Ulrich MD [address] [place] [address] PCP - General Internal Medicine 01/18/21 documented as of this encounter
--- OUTSIDE RECORDS SUMMARY | 2024-02-10 01:42 | XMS_ITS | Encounter Summary ---
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 * Telephone Encounter - Tarsha Donovan - 10/10/2023 4:34 PM CDT Medical Question/Miscellaneous Caller???s Concern: Ashley called asking for status of request for last 2 office notes that was faxedon 09/12/23 and stating she will fax request again. Please advise and fax info to [phone] Does message need to be routed? Yes-Action Needed documented in this encounter Plan of Treatment Not on file documented as of this encounter Visit Diagnoses Not on filedocumented in this encounter Care Teams Programmer Or Analyst Relationship Specialty Start Date End Date Ronaldo Ulrich MD [address] [place] [address] PCP - General Internal Medicine 01/18/21 documented as of this encounter
--- OUTSIDE RECORDS SUMMARY | 2024-02-10 01:43 | XMS_ITS | Encounter Summary ---
Author Organization [facility] Healthcare Address [address] [place] [address] Care Team Providers Care Mechanical Developer Prover Name Role Phone Ronaldo Ulrich MD Primary Care Provider + Reason for Visit * Reason Comments Flank Pain R flank pain, increa sed urination for the last 2 months but has gotten worse over the last 3 days. Pt states that he will need to go to the bathroom every 30 mins. Encounter Details Date Type Department Care Team (Late st Contact Info) Description 05/30/2023 10:00 AM CDT Office Visit [facility] [address] [place] [address] Ronaldo Ulrich MD [address] [place], [place] [id number] Urine frequency (Primary Dx); Chronic right-sided low back pain without sciatica; Class 2 severe obesity due to excess calories with serious comorbidity and body mass index (BMI) of 37.0 to 37.9 in adult (HCC) Social History Tobacco Use Types Packs/Day Years Used Date Smoking Tobacco: Former Cigarettes 1 35 1 948 - 1982 Smokeless Tobacco: Never Comments:Smoking History Pac ks/day: 1 Packs Alcohol Use Standard Drinks/Week Comments Yes 0 (1 standard drink = 0.6 oz pur e alcohol) AUDIT-C Answer Date Recorded Q1: How often do you have a drink containing alcohol? Never 05/30/2023 Q2: How many drinks containi ng alcohol do you have on a typical day when you are drinking? Patient does not drink Q3: How often do you have si x or more drinks on one occasion? 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 Not on file documented as of this encounter Last Filed Vital Signs Vital Sign Reading Time Taken Comments Blood Pressure 136/64 05/30/2023 10:05 AM CDT Pulse 75 05/30/2023 10:05 AM CDT Temperature 36.2 ??C (97.2 ??F) 05/30/2023 10:05 AM C DT Respiratory Rate 18 05/30/2023 10:05 AM CDT Oxygen Saturation 92% 05/30/2023 10:05 AM CDT Inhaled Oxygen Concentration - - Weight 117.7 kg (259 lb 8 oz) 05/30/2023 10:05 A M CDT Height 177.8 cm (5' 10 ) 05/30/2023 10:05 AM CDT Body Mass Index 37.23 05/30/2023 10:05 AM CDT documented in this encounter Progress Notes * Ronaldo Ulrich MD - 05/30/2023 10:00 AM CDT Images from the original note were not included. Subjective/Objective Patient ID: Ayden Santos is a 77 y.o. male. Assessment/Plan Diagnoses and all orders for this visit: Urine frequency (Primary) - POCT urinalysis dipstick Chief Complaint Urinary frequency HPI: Ayden presents with complaints of right flank pain and urinary frequency for the past 2 months. This has gotten worse over the last 3 days.. Flank pain has currently resolved. Pt states that he willneed to go to the bathroom every 30 mins. UA shows no evidence on UTI. Current Outpatient Medications Medication Sig Dispense Refill acyclovir (ZOVIRAX) 400 mg tablet TAKE 1 TABLET (400 MG TOTAL) BY MOUTH 2 TIMES A DAY 180 tablet 1 albuterol HFA (ProAir HFA) 90 mcg/actuation inhaler Inhale 2 puffs every 4 (four) hours as needed for wheezing or shortness of breath for up to 15 days 8.5 g 5 blood glucose diagnostic (ONETOUCH VERIO) strip smbg [...] two weeks. 3 kit 3 insulin lispro (HumaLOG, ADMELOG) 100 unit/mL pen for injection INJECT FOR :131- 150 2 UNITS, 151-180 4 UNITS, 181-200 6 UNITS, 201-230 8 UNITS, 231-250 10 UNITS, MAX DOSE 30 UNITS PER DAY 15 mL 1 irbesartan-hydroCHLOROthiazide (AVALIDE) 300-12.5 mg per tablet Take 1 tablet by mouth daily 90 tablet 1 metFORMIN (GLUCOPHAGE) 500 mg tablet Take 1 tablet (500 mg total) by mouth 2 (two) times a day withmeals 180 tablet 1 metoprolol tartrate (LOPRESSOR) 50 mg immediate release tablet Take 2 tablets (100 mg total) by mouth every morning AND 1 tablet (50 mg total) daily with lunch. 270 tablet 1 miscellaneous medical supply [facility] C-Pap simvastatin (ZOCOR) 40 mg tablet Take 1 tablet (40 mg total) by mouth nightly 90 tablet 1 tamsulosin (FLOMAX) 0.4 mg extended release capsule Take 1 capsule (0.4 mg total) by mouth nightly vit C,M-Pq-svtlw-lutein-zeaxan 250-90-40-1 mg capsule Take 1 capsule by mouth daily Xultophy 100/3.6 100 unit-3.6 mg /mL (3 mL) insulin pen pen INJECT 50 UNITS INTO THE SKIN DAILY 45 mL 1 aspirin 81 mg chewable tablet Take 1 tablet (81 mg total) by mouth daily (Patient not taking: Reported on 03/22/2023) 30 tablet 11 subcutaneous insulin pump misc As directed daily (Patient not taking: Reported on 02/25/2022) 1 each 0 vitamin B complex capsule Take 1 capsule [...] Recent Results (from the past 1008 hour(s)) POCT urinalysis dipstick Collection Time: 05/30/23 10:20 AM Result Value Ref Range Color, Urine, POC Light Yellow Clarity, ur, POC Clear Clear Glucose, ur, POC 500. (A) Negative MG/DL Bilirubin, ur, POC Negative Negative, Small, Moderate, Large Ketones, ur, POC Negative Negative Specific Randolph, POC 1.020 1.003 - 1.030 Blood, ur, POC Trace (A) Negative pH, ur, POC 5.5 5.0 - 8.0 Protein, ur, POC 100. (A) Negative Urobilinogen, urine, POC 0.2 0.2 - 1.0 mg/dL Nitrite, ur, POC Negative Negative Leukocytes, ur, POC Negative Negative Lot Number [id number] Physical Exam: BP 136/64 (BP Location: Left arm, Patient Position: Sitting) Pulse 75 Temp 36.2 ??C (97.2 ??F) (Skin) Resp 18 Ht 177.8 cm (5' 10 ) Wt 117.7 kg (259 lb 8 oz) SpO2 92% BMI 37.23 kg/m?? Physical Exam Constitutional: Appearance: He is well-developed. HENT: Head: Normocephalic and atraumatic. Abdominal: General: Bowel sounds are normal. There is no distension. Palpations: Abdomen is soft. Tenderness: There is no abdominal tenderness. Musculoskeletal: Lumbar back: Tenderness (along right paraspinal muscles) present. No bony tenderness. Skin: General: Skin is warm and dry. Findings: No rash. Neurological: Mental Status: He is alert and oriented to person, place, and time. Ronaldo Ulrich MD documented in this encounter Miscellaneous Notes * Assessment & Plan Note - Ronaldo Ulrich MD - 05/30/2023 10:30 AM CDT Associated Problem(s): Class 2 severe obesity due to excess calories with serious comorbidity and body mass index (BMI) of 37.0 to 37.9 in adult (HCC) BMI Follow-up includes: exercise counseling. * Assessment & Plan Note - Ronaldo Ulrich MD - 05/30/2023 10:30 AM CDT Associated Problem(s): Chronic right-sided low back pain without sciatica Resolved now. Will observe * Assessment & Plan Note - Ronaldo Ulrich MD - 05/30/2023 10:29 AM CDT Associated Problem(s): Urine frequency (Resolved 09/26/2023) No evidence of UTI. Does not want to start another medication documented in this encounter Plan of Treatment Not on file documented as of this encounter Procedures Procedure Name Priority Date/Time Associated Diagnosis Comments POCT URINALYSIS DIPSTICK Routine 05/30/2023 10:20 AM CDT Urine frequency documented in this encounter Results * (ABNORMAL) POCT urinalysis dipstick (05/30/2023 10:20 AM CDT) Color, Urine, POC Light Yellow Clarity, ur, POC Clear Clear Glucose, ur, POC 500.(A) Negative MG/DL Bilirubin, ur, POC Negative Negative, Small, Moderate, Large Ketones, ur, POC Negative Negative Specific Randolph, POC 1.020 1.003 - 1.030 Blood, ur, POC Trace(A) Negative pH, ur, POC 5.5 5.0 - 8.0 Protein, ur, POC 100.(A) Negative Urobilinogen, urine, POC 0.2 0.2 - 1.0 mg/dL Nitrite, ur, POC Negative Negative Leukocytes, ur, POC Negative Negative Lot Number [id number] Urine 05/30/2023 10:2 0 AM CDT Ronaldo Ulrich MD POINT OF CARE TEST ORDER NIKKIE Final Result documented in this encounter Visit Diagnoses Diagnosis Urine frequency- Primary Chronic right-sided low back pain without sciatica Class 2 severe obesity due to excess calories with serious comorbidity and body mass index (BMI) of 37.0 to 37.9 in adult (HCC) documented in this encounter Care Teams Mechanical Developer Prover Relationship Specialty Start Date End Date Ronaldo Ulrich MD [address] [place] [address] PCP - General Internal Medicine 01/18/21 documented as of this encounter
--- OUTSIDE RECORDS SUMMARY | 2024-02-10 01:43 | XMS_ITS | Encounter Summary ---
Author Organization [facility] Healthcare Address [address] [place] [address] Care Team Providers Care Engineering Operator Name Role Phone Ronaldo Ulrich MD Primary Care Provider + Reason for Visit * Reason Comments Cough Cough, chest pain wh en coughing, sore throat, sneezing x 4 days Encounter Details Date Type Department Care Team (Late st Contact Info) Description 06/12/2023 10:30 AM CDT Office Visit [facility] [place] [address] [place] [id number] Connor Redd PA [address] [place] [address] Upper respiratory tract infection, unspecified type (Primary Dx) Social History Tobacco Use Types Packs/Day Years [...] on file 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 Gender Identity Not on file Sexual Orientation Not on file 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 Take per package directions Antihistamines like Claritin or Zyrtec and Flonase nasal spray, as needed for drainage for 7-10 days. Take per package directions Cool mist humidifier, nasal saline spray , 2 sprays each nostril 3-4 times a day for 7-10 days for congestion, corcidin for congestion for high blood pressure, do not take sudafed Delsym (cough suppressant) and Mucinex (cough expectorant) [...] coughing are also important. Follow up with PCPfor any symptoms persisting beyond 10-14 days. ER DORCAS for chest pain, chest tightness, shortness of breath, persistent dizziness, syncope, inability to tolerate oral intake documented in this encounter Ordered Prescriptions Prescription Sig Dispense Quantity Refills Last Filled Start Date End Date albuterol HFA (PROVENTIL HFA,VENTOLIN HFA,PROAIR HFA) 90 mcg/actuation inhalerIndications :Upper respiratory tract infection, unspecified type Inhale 2 puffs every 6 (six) hours as needed for wheezing or shortness of breath for up to 10 days 1 each 06/12/2023 4 benzonatate (TESSALON) 200 mg capsuleIndications :Upper respiratory tract infection, unspecified type Take 1 capsule (200 mg total) by mouth 3 (three) times a day as needed for cough for up to 7 days 21 capsule 06/12/2023 4 documented in this encounter Progress Notes * Connor Redd PA - 06/12/2023 10:30 AM CDT Images from the original note were not included. Subjective/Objective Patient ID: Ayden Santos is a 77 y.o. male. Chief Complaint Cough (Cough, chest pain when coughing, sore throat, sneezing x 4 days ) The patient know presents for an evaluation for cough, sore throat, sneezing x 4 days. No fevers. Reports coughing up some yellow phlegm. No shortness of breath No history of asthma or smoking or COPD. Review of Systems Constitutional: Negative for fever. HENT: Positive for congestion, postnasal drip, sneezing and sore throat. Respiratory: Positive for cough. Negative for shortness of breath. Cardiovascular: Negative for chest pain. Physical Exam Vitals reviewed. Constitutional: General: He is not in acute distress. Appearance: Normal appearance. HENT: Head: Normocephalic and atraumatic. Right Ear: Tympanic membrane normal. Left Ear: Tympanic membrane normal. Nose: Nose normal. Mouth/Throat: Mouth: Mucous membranes are moist. Pharynx: Posterior oropharyngeal erythema present. No oropharyngeal exudate. Tonsils: No tonsillar exudate. Cardiovascular: Rate and Rhythm: Normal rate. Pulmonary: Effort: Pulmonary effort is normal. No respiratory distress. Breath sounds: No wheezing, rhonchi or rales. Skin: General: Skin is warm. Neurological: General: No focal deficit present. Mental Status: He is alert and oriented to person, place, and time. Psychiatric: Mood and Affect: Mood normal. Behavior: Behavior normal. Vitals: 06/12/23 1014 BP: 132/54 Pulse: 87 Resp: 16 Temp: (!) 35.8 ??C (96.4 ??F) SpO2: 95% Assessment/Plan Diagnoses and all orders for this visit: Upper respiratory tract infection, unspecified type (Primary) Assessment & Plan: VSS, NAD, lungs CTAB Rapid strep negative. [...] coughing are also important. Follow up with PCPfor any symptoms persisting beyond 10-14 days. ER DORCAS for chest pain, chest tightness, shortness of breath, persistent dizziness, syncope, inability to tolerate oral intake Orders: - POCT rapid strep A - POC Influenza A/B, COVID-19 antigen - POCT rapid RSV - benzonatate (TESSALON) 200 mg capsule; Take 1 capsule (200 mg total) by mouth 3 (three) times a day as needed for cough for up to 7 days - albuterol HFA (PROVENTIL HFA,VENTOLIN HFA,PROAIR HFA) 90 mcg/actuation inhaler; Inhale 2 puffs every 6 (six) hours as needed for wheezing or shortness of breath for up to 10 days - Throat culture Throat; Future Recent Results (from the past 4 hour(s)) POCT rapid strep A Collection Time: 06/12/23 10:35 AM Result Value Ref Range Rapid Strep A, POC Negative Negative POC Influenza A/B, COVID-19 antigen Collection Time: 06/12/23 10:35 AM Result Value Ref Range Influenza A Ag, POC Negative Negative Influenza B Ag, POC Negative Negative COVID-19 Ag POC Presumptive Negative Presumptive Negative, Invalid POCT rapid RSV Collection Time: 06/12/23 10:36 AM Result Value Ref Range Rapid RSV, POC Negative Negative Lot Number [id number] QC Control Line Acceptable Disposition Treatment plan including expectations, follow up, and return precautions discussed with patient/parent, verbalizes understanding. Medication dosage, use, and potential adverse reactions discussed with patient/parent. Advised to follow up with PCP if symptoms do not resolve as expected or sooner if condition worsens. Signs/symptoms warranting ER evaluation reviewed. Patient and/or guardian was given an opportunity to ask questions, questions answered. OMARI Pierre 06/12/23 11:05 AM documented in this encounter Miscellaneous Notes * Assessment & Plan Note - Connor Redd PA - 06/12/2023 11:05 AM CDT Associated Problem(s): Cough (Resolved 09/26/2023) VSS, NAD, lungs CTAB Rapid strep negative. [...] coughing are also important. Follow up with PCPfor any symptoms persisting beyond 10-14 days. ER DORCAS for chest pain, chest tightness, shortness of breath, persistent dizziness, syncope, inability to tolerate oral intake documented in this encounter Plan of Treatment Not on file documented as of this encounter Procedures Procedure Name Priority Date/Time Associated Diagnosis Comments POCT RAPID RSV Routine 06/12/2023 10:36 AM CDT Upper respiratory tract infection, unspecified type POC INFLUENZA A/B, COVID-19 ANTIGEN Routine 06/12/2023 10:35 AM CDT Upper respiratory tract infection, unspecified type POCT RAPID STREP Routine 06/12/2023 10:3 5 AM CDT Upper respiratory tract infection, unspecified type documented in this encounter Results * Throat culture Throat (06/12/2023 11:05 AM CDT) Report Final Report: No growth of pathogens. Throat 06/12/2023 11:0 5 AM CDT 06/12/2023 6:19 PM CDT Narrative [facility] - 06/13/2023 1:01 PM CDT Testing performed by [facility] ([phone]). Connor SALC[facility] MICROBIOLOGY - GENERAL ORDGreg GILBERT Final Result [facility] [place] [address] * POCT rapid RSV (06/12/2023 10:36 AM CDT) [facility] Rapid RSV, POC Negative Negative Lot Number [id number] QC Control Line Acceptable Swab 06/12/2023 10:3 6 AM CDT CristianBitAnimate Helgaiz PA POINT OF CARE TEST ORDERABLES F inal Result * POC Influenza A/B, COVID-19 antigen (06/12/2023 10:35 AM CDT) [facility] Influenza A Ag, POC Negative Negative [facility] Influenza B Ag, POC Negative Negative [facility] [place] COVID-19 Ag POC Presumptive Negative Presumptive Negative, Invalid [facility] [place] Nasal 06/12/2023 10:3 5 AM CDT AydeBitAnimate Ivania PA POINT OF CARE TEST ORDERABLES F inal Result Performing Organization Address [facility] Co de Phone Number [facility] [address] [place] [address] * POCT rapid strep A (06/12/2023 10:35 AM CDT) [facility] Rapid Strep A, POC Negative Negative [facility] Swab 06/12/2023 10:3 5 AM CDT CVN NetworksBitAnimate Ivania PA POINT OF CARE TEST ORDERABLES F inal Result Performing Organization Address [facility] Co de Phone Number [facility] [address] [place] [address] documented in this encounter Visit Diagnoses Diagnosis Upper respiratory tract infection, unspecified type- Primary Upper respiratory tract infection, unspecified type documented in this encounter Discontinued Medications Medication Sig Discontinue Reason Start Date End Da te albuterol HFA (ProAir HFA) 90 mcg/actuation inhalerIndications:Acut e bronchitis, unspecified organism Inhale 2 puffs every 4 (four) hours as needed for wheezing or shortness of breath for up to 15 days 03/22/2023 06/12/2023 documented as of this encounter Additional Health Concerns Infection Onset Date Last Indicated Resolved Time COVID: Suspected 06/12/2023 06/12/2023 06/12/2023 10:36 AM CDT documented as of this encounter Care Teams Engineering Operator Relationship Specialty Start Date End Date Roanldo Ulrich MD [address] [place] [address] PCP - General Internal Medicine 01/18/21 documented as of this encounter
--- OUTSIDE RECORDS SUMMARY | 2024-02-10 01:43 | XMS_ITS | Encounter Summary ---
Author Organization [facility] Healthcare Address [address] [place] [address] Care Team Providers Care Ink Grinder Name Role Phone Ronaldo Ulrich MD Primary Care Provider + Reason for Visit * Reason Onset Date Comments Flank Pain 05/29/2023 Encounter Details Date Type Department Care Team (Late st Contact Info) Description 05/29/[address] 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 The last 3 days the pain wasworse. He states today is better. Pain is only present with movement. He denies dysuria, fever, injury. Pt reports a year ago he had an MRI and they found a growth (not cancer) on the kidney area andunsure if this is what is causing pain now. Disposition per guideline: Care Advice/education/call back instruction given:appt made in office with PCP/SENIOR ACCOUNT DIRECTOR/PA * Telephone Encounter - Sylvia Diaz RN - 05/29/2023 11:36 AM CDT Regarding: severe pain in right kidney area ----- Message from Mona Aviles sent at 05/29/2023 11:33 AM CDT ----- Symptom Based Call Chief Complaint(s): severe pain in right kidney area Duration: couple month What type of symptom(s) is the patient experiencing? Red Flag. Is the patient concerned they are experiencing a medical emergency requiring an ambulance? No Additional Comments: Pt is in moderate pain in the right kidney region but has been severe in the last few days. Pt stated that when he moves it hurts but seems to be okay when sitting still. Pt stated that he would like to have CT Scan. Pt did state that years ago he had an MRI and they found a growth (not cancer) on the kidney area and unsure if this si what is causing pain now. Does message need to be routed? Yes-Action Needed documented in this encounter Plan of Treatment Not on file documented as of this encounter Visit Diagnoses Not on filedocumented in this encounter Care Teams Ink Grinder Relationship Specialty Start Date End Date Ronaldo Ulrich MD [address] [place] [address] PCP - General Internal Medicine 01/18/21 documented as of this encounter
--- OUTSIDE RECORDS SUMMARY | 2024-02-10 01:43 | XMS_ITS | Encounter Summary ---
Author Organization [facility] Address [address] [place] [address] Care Team Providers Care Soil Science Technical Officer Name Role Phone Ronaldo Ulrich MD Primary Care Provider + Reason for Visit * Reason Comments Follow-up 6 month, DM, HTN, CA D, hyperlipidemia, H/O colon polyps, atherosclerosis, sleep apnea, neuropathy, herpes simplex. Pt states that when he wakes up in the morning he has a pounding in his head like he can here his heart beating. Pt states that he is still having the bilat tremors in his hands. 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 2 diabetes mellitus (CMS/HCC) (HCC); Coronary artery disease involving [place] coronary artery of [place] heart without angina pectoris; History of colon polyps; Atherosclerosis of aorta (CMS/HCC) (HCC); Obstructive sleep apnea; 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 mellitus (CMS/HCC) (HCC); Benign prostatic hyperplasia without lower urinary tract symptoms; Diabetic nephropathy associated with type 2 diabetes mellitus ([facility]); Class 2 severe obesity due to excess calories with serious comorbidity and body mass index (BMI) of 37.0 to 37.9 in adult ([facility]); Herpes simplex; Acute bronchitis, unspecified organism Social History Tobacco Use Types Packs/Day Years Used Date Smoking Tobacco: Former Cigarettes 1 35 1 948 - 1982 Smokeless Tobacco: Never Comments:Smoking History Pac ks/day: 1 Packs Alcohol Use Standard Drinks/Week Comments Yes 0 (1 standard drink = 0.6 oz pur e alcohol) AUDIT-C Answer Date Recorded Q1: How often do you have a drink containing alc ohol? Monthly or less 03/22/2023 Q2: How many drinks containi ng alcohol do you have on a typical day when you are drinking? 1 or 2 03/22/2023 Q3: How often do you have si x or more drinks on one occasion? 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 Not on file documented as of this encounter Last Filed Vital Signs Vital Sign Reading Time Taken Comments Blood Pressure 136/78 03/22/2023 10:08 AM COUNCILMAN Pulse 87 03/22/2023 10:08 AM COUNCILMAN Temperature 36.3 ??C (97.3 ??F) 03/22/2023 1 0:08 AM COUNCILMAN Respiratory Rate 18 03/22/2023 10:0 8 AM COUNCILMAN Oxygen Saturation 92% 03/22/2023 10: 08 AM COUNCILMAN Inhaled Oxygen Concentration - - Weight 119.9 kg (264 lb 4.8 oz) 024 10:08 AM COUNCILMAN Height 177.8 cm (5' 10 ) 03/22/2023 10: 08 AM COUNCILMAN Body Mass Index 37.92 03/22/2023 10:08 AM COUNCILMAN documented in this encounter Ordered Prescriptions Prescription Sig Dispense Quantity Refills Last Filled Start Date End Date simvastatin (ZOCOR) 40 mg tabletIndications: 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) Take 1 tablet (40 mg total) by mouth nightly 90 tablet 1 03/22/2023 4 metoprolol tartrate (LOPRESSOR) 50 mg immediate release tabletIndications: Hypertensive heart disease without heart failure,Coronary artery disease involving [place] coronary artery of [place] heart without angina pectoris Take 2 tablets (100 mg total) by mouth every morning AND 1 tablet (50 mg total) daily with lunch. 270 tablet 1 03/22/2023 4 metFORMIN (GLUCOPHAGE) 500 mg tabletIndications: Type 2 diabetes mellitus with other circulatory complication, with long-term current use of insulin (HCC) Take 1 tablet (500 mg total) by mouth 2 (two) times a day with meals 180 tablet 1 03/22/2023 4 irbesartan-hydroCH LOROthiazide (AVALIDE) 300-12.5 mg per tabletIndications: Hypertensive heart disease without heart failure Take 1 tablet by mouth daily 90 tablet 1 03/22/2023 4 dapagliflozin propanediol (Farxiga) 10 mg tabletIndications: Type 2 diabetes mellitus with other circulatory complication, with long-term current use of insulin (HCC) Take 1 tablet (10 mg total) by mouth daily 90 tablet 1 03/22/2023 4 albuterol HFA (ProAir HFA) 90 mcg/actuation inhalerIndications :Acute bronchitis, unspecified organism Inhale 2 puffs every 4 (four) hours as needed for wheezing or shortness of breath for up to 15 days 8.5 g 5 03/22/2023 4 documented in this encounter Progress Notes * Ronaldo Ulrich MD - 03/22/2023 10:00 AM CST Images from the original note were not included. Subjective/Objective Patient ID: Ayden Santos is a 77 y.o. male. Assessment/Plan Diagnoses and all orders for this visit: Type 2 diabetes mellitus with other circulatory complication, with long-term current use of insulin(HCC) (Primary) Assessment & Plan: Complicated by hypertension coronary artery disease. Hemoglobin A1c continues to improve. Continue Humalog, Xultophy, Farxiga, and metformin. Hypertensive heart disease without heart failure Assessment & Plan: Well controlled on metoprolol and irbesartan hydrochlorothiazide 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 2 diabetes mellitus ([facility]) ([facility]) Assessment & Plan: Well controlled on simvastatin. Triglycerides improving. Coronary artery disease involving [place] coronary artery of [place] heart without angina pectoris Assessment & Plan: Stable on aspirin, simvastatin, metoprolol, and Farxiga follows with Dr. Jiménez History of colon polyps Assessment & Plan: Due for repeat colonoscopy in December of 2023 Atherosclerosis of aorta ([facility]) ([facility]) Assessment & Plan: Stable on simvastatin and aspirin Obstructive sleep apnea Assessment & Plan: Uses CPAP nightly and benefits from it 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 mellitus ([facility]) ([facility]) Assessment & Plan: Hemoglobin A1c is stable. Continue metformin, Humalog, Farxiga, and Xultophy Benign prostatic hyperplasia without lower urinary tract symptoms Assessment & Plan: Stable on finasteride Diabetic nephropathy associated with type 2 diabetes mellitus ([facility]) Assessment & Plan: Elevated urine microalbumin with preserved renal function. Continue irbesartan hydrochlorothiazide at and Farxiga Class 2 severe obesity due to excess calories with serious comorbidity and body mass index (BMI) of37.0 to 37.9 in adult ([facility]) Assessment & Plan: BMI Follow-up includes: exercise counseling. Herpes simplex Assessment & Plan: Stable on acyclovir Acute bronchitis, unspecified organism Chief Complaint Follow-up for chronic conditions. HPI: Ayden is here for a six-month follow-up for type 2 diabetes mellitus, HTN, CAD, hyperlipidemia, H/O colon polyps, atherosclerosis, sleep apnea, neuropathy, and herpes simplex. Pt states that when hewakes up in the morning he has a pounding in his head like he can here his heart beating. He states that he is still having the bilat tremors in his hands. He states it is not as bad. Current Outpatient Medications Medication Sig Dispense Refill acyclovir (ZOVIRAX) 400 mg tablet Take 1 tablet (400 mg total) by mouth 2 (two) times a day 180 tablet 1 albuterol HFA (ProAir HFA) 90 mcg/actuation inhaler Inhale 2 puffs every 4 (four) hours as needed for wheezing or shortness of breath for up to 15 days 8.5 g 0 blood glucose diagnostic (ONETOUCH VERIO) strip smbg bid ac 100 each 11 blood-glucose sensor device Use daily 1 each 0 cholecalciferol (VITAMIN D-3) 2,000 unit capsule Take 1 capsule (2,000 Units total) by mouth daily coenzyme Q10 (COQ-10) 100 mg capsule take 3 by Oral route every evening 0 0 Farxiga 10 mg tablet TAKE 1 TABLET BY MOUTH EVERY DAY 90 tablet 1 finasteride (PROSCAR) 5 mg tablet Take 1 tablet (5 mg total) by mouth daily 90 tablet 1 flash glucose sensor (FreeStyle Erick 2 Sensor) kit Change sensor every two weeks. 3 kit 3 insulin lispro (HumaLOG) 100 unit/mL pen for injection USE FOLLOWS: 131-150 2 UNITS, 151-180 4 UNITS, 181-200 6 UNITS, 201-230 8 UNITS, 231-250 10 UNITS MAX DOSE 30 UNITS PER DAY 30 mL 1 irbesartan-hydroCHLOROthiazide (AVALIDE) 300-12.5 mg per tablet Take 1 tablet by mouth daily 90 tablet 1 metFORMIN (GLUCOPHAGE) 500 mg tablet TAKE 1 TABLET BY MOUTH TWICE A DAY WITH MEALS 180 tablet 0 metoprolol tartrate (LOPRESSOR) 50 mg immediate release tablet Take 2 tablets (100 mg total) by mouth every morning AND 1 tablet (50 mg total) daily with lunch. 270 tablet 1 miscellaneous medical supply [facility] [place] simvastatin (ZOCOR) 40 mg tablet TAKE 1 TABLET BY MOUTH EVERY DAY AT NIGHT 90 tablet 1 tamsulosin (FLOMAX) 0.4 mg extended release capsule Take 1 capsule (0.4 mg total) by mouth nightly vit C,U-Ll-ezmhx-lutein-zeaxan 250-90-40-1 mg capsule Take 1 capsule by mouth daily Xultophy 100/3.6 100 unit-3.6 mg /mL (3 mL) insulin pen pen INJECT 50 UNITS INTO THE SKIN DAILY 45 mL 1 aspirin 81 mg chewable tablet Take 1 tablet (81 mg total) by mouth daily (Patient not taking: Reported on 03/22/2023) 30 tablet 11 subcutaneous insulin pump [facility] [place] As directed daily (Patient not taking: Reported [...] 1008 hour(s)) Comprehensive metabolic panel Collection Time: 03/15/23 7:47 AM Result Value Ref Range Glucose 139 (H) 65 - 99 mg/dL BUN 26 (H) 7 - 25 mg/dL Creatinine 1.16 0.70 - 1.28 mg/dL eGFR 64 > OR = 60 mL/min/1.73m2 BUN/creat ratio 22 6 - 22 (calc) Sodium 139 135 - 146 mmol/L Potassium, pl 4.5 3.5 - 5.3 mmol/L Chloride 104 98 - 110 mmol/L CO2 21 20 - 32 mmol/L Calcium 9.1 8.6 - 10.3 mg/dL Protein, sr 7.2 6.1 - 8.1 g/dL Albumin 4.0 3.6 - 5.1 g/dL GLOBULIN 3.2 1.9 - 3.7 g/dL (calc) Alb/glob ratio 1.3 1.0 - 2.5 (calc) Bilirubin, total 0.5 0.2 - 1.2 mg/dL Alk phos 73 35 - 144 U/L AST 14 10 - 35 U/L ALT (SGPT) 14 9 - 46 U/L Hemoglobin A1c Collection Time: 03/15/23 7:47 AM Result Value Ref Range Hgb A1C 7.0 (H) <5.7 % of total Hgb Lipid panel Collection Time: 03/15/23 7:47 AM Result Value Ref Range Cholesterol 110 <200 mg/dL HDL 30 (L) > OR = 40 mg/dL Triglycerides 161 (H) <150 mg/dL LDL 56 mg/dL (calc) Chol/HDL ratio 3.7 <5.0 (calc) Non-HDL, (LDL+VLDL) 80 <130 mg/dL (calc) Physical Exam: BP 136/78 (BP Location: Left arm, Patient Position: Sitting) Pulse 87 Temp 36.3 ??C (97.3 ??F) (Skin) Resp 18 Ht 177.8 cm (5' 10 ) Wt 119.9 kg (264 lb 4.8 oz) SpO2 92% BMI 37.92 kg/m?? Physical Exam Constitutional: Appearance: He is [...] person, place, and time. Ronaldo Ulrich MD CILMAN documented in this encounter Miscellaneous Notes * Assessment & Plan Note - Ronaldo Ulrich MD - 03/20/2023 1:35 PM COUNCILMAN Associated Problem(s): Herpes simplex Stable on acyclovir CILMAN * Assessment & Plan Note - Ronaldo Ulrich MD - 03/20/2023 1:35 PM COUNCILMAN Associated Problem(s): Class 2 severe obesity due to excess calories with serious comorbidity and body mass index (BMI) of 37.0 to 37.9 in adult (HCC) BMI Follow-up includes: exercise counseling. CILMAN * Assessment & Plan Note - Ronaldo Ulrich MD - 03/20/2023 1:35 PM COUNCILMAN Associated Problem(s): Diabetic nephropathy associated with type 2 diabetes mellitus (HCC) Elevated urine microalbumin with preserved renal function. Continue irbesartan hydrochlorothiazide at and Farxiga CILMAN * Assessment & Plan Note - Ronaldo Ulrich MD - 03/20/2023 1:34 PM COUNCILMAN Associated Problem(s): Benign prostatic hyperplasia without lower urinary tract symptoms Stable on finasteride CILMAN * Assessment & Plan Note - Ronaldo Ulrich MD - 03/20/2023 1:34 PM COUNCILMAN Associated Problem(s): 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 mellitus (CMS/HCC) ([facility]) Hemoglobin A1c is stable. Continue metformin, Humalog, Farxiga, and Xultophy CILMAN * Assessment & Plan Note - Ronaldo Ulrich MD - 03/20/2023 1:34 PM COUNCILMAN Associated Problem(s): Obstructive sleep apnea Uses CPAP nightly and benefits from it CILMAN * Assessment & Plan Note - Ronaldo Ulrich MD - 03/20/2023 1:34 PM COUNCILMAN Associated Problem(s): Atherosclerosis of aorta (CMS/HCC) ([facility]) Stable on simvastatin and aspirin CILMAN * Assessment & Plan Note - Ronaldo Ulrich MD - 03/20/2023 1:34 PM COUNCILMAN Associated Problem(s): History of colon polyps Due for repeat colonoscopy in December of 2023 CILMAN * Assessment & Plan Note - Ronaldo Ulrich MD - 03/20/2023 1:33 PM COUNCILMAN Associated Problem(s): Coronary artery disease involving [place] coronary artery of [place] heart without angina pectoris Stable on aspirin, simvastatin, metoprolol, and Farxiga follows with Dr. Jiménez CILMAN * Assessment & Plan Note - Ronaldo Ulrich MD - 03/20/2023 1:33 PM COUNCILMAN Associated Problem(s): 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 2 diabetes mellitus (CMS/HCC) ([facility]) Well controlled on simvastatin. Triglycerides improving. CILMAN * Assessment & Plan Note - Ronaldo Ulrich MD - 03/20/2023 1:33 PM COUNCILMAN Associated Problem(s): Hypertensive heart disease without heart failure Well controlled on metoprolol and irbesartan hydrochlorothiazide CILMAN * Assessment & Plan Note - Ronaldo Ulrich MD - 03/20/2023 1:32 PM COUNCILMAN Associated Problem(s): Type 2 diabetes mellitus with circulatory disorder (CMS/HCC) ([facility]) Complicated by hypertension coronary artery disease. Hemoglobin A1c continues to improve. Continue Humalog, Xultophy, Farxiga, and metformin. CILMAN documented in this encounter Plan of Treatment Not on file documented as of this encounter Procedures Procedure Name Priority Date/Time Associated Diagnosis Comments ALBUMIN CREATININE RATIO, URINE Routine 09/20/2023 9:33 AM CDT Type 2 diabetes mellitus with other circulatory complication, with long-term current use of insulin (HCC) HEMOGLOBIN A1C Routine 09/20/2023 9:33 AM CDT Type 2 diabetes mellitus with other circulatory complication, with long-term current use of insulin (HCC) LIPID PANEL Routine 09/20/2023 9:33 AM CDT 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 2 diabetes mellitus (CMS/HCC) (HCC) COMPREHENSIVE METABOLIC PANEL Routine 09/20/2023 9:33 AM CDT 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 2 diabetes mellitus (CMS/HCC) (HCC) documented in this encounter Results * (ABNORMAL) Albumin Creatinine Ratio, Urine (09/20/2023 9:33 AM CDT) [facility] Creatinine, ur 50 20 - 320 mg/dL [...] LAB URINE ORDERABLES Fin al Result [facility] [address] [place] [id number] * (ABNORMAL) Lipid panel (09/20/2023 9:33 AM CDT) Cholesterol 117 <200 mg/dL Frank CINEPASSJason dudley José HDL 36(L) > OR = 40 mg/dL Frank Scour PreventionGill José Triglycerides 207(H) <150 mg/dL Frank Scour PreventionGill José Comment: If a non-fasting specimen was collected, consider repeat triglyceride testing on a fasting specimen if clinically indicated. Wilmer et al. J. of Clin. Lipidol. 2015;9:129-169. LDL 54 mg/dL (calc) Frank MurrietaMyaJason dudley José Comment: Reference range: <100 Desirable range <100 mg/dL for primary prevention; ?? <70 mg/dL for patients with CHD or diabetic patients with > or = 2 CHD risk factors. LDL-C is now calculated using the uYni calculation, which is a validated novel method providing better accuracy than the Friedewald equation in the estimation of LDL-C. Nishant GHOTRA et al. IRVING. 2013;310(19): 0738-7235 (http://education.[employer]/faq/KMU666) Chol/HDL ratio 3.3 <5.0 (calc) Frank MurrietaLoveThisJason dudley José Non-HDL, (LDL+VLDL) 81 <130 mg/dL (calc) Frank CINEPASSJason dudley José Comment: For patients with diabetes plus 1 major ASCVD risk factor, treating to a non-HDL-C goal of <100 mg/dL (LDL-C of <70 mg/dL) is considered a therapeutic option. Blood 09/20/2023 9:33 AM CDT 09/20/2023 9:34 AM CDT Narrative [facility] - 09/21/2023 4:55 PM CDT FASTING:YES FASTING: YES us Ronaldo Ulrich MD LAB BLOOD ORDERABLES Fin al Result [facility] [address] [place] [address] * (ABNORMAL) Hemoglobin A1c (09/20/2023 9:33 AM CDT) Hgb A1C 7.9(H) <5.7 % of total Hgb Frank MurrietaMyaJason dudley José Comment: For someone without known diabetes, [...] change in test platforms from the [employer]ist to the Elyse christian c503 may have shifted HbA1c results compared to historical results. Based on laboratory validation testing conducted at [facility] [employer] [facility], the Elyse platform relative to the [place] [...] MD LAB BLOOD ORDERABLES Fin al Result [facility] [address] [place] [address] * (ABNORMAL) Comprehensive metabolic panel (09/20/2023 9:33 AM CDT) [facility] Glucose 154(H) 65 - 99 mg/dL TheatricsJason José Comment: ? Fasting reference interval For someone without known diabetes, a glucose value >125 mg/dL indicates that they may have diabetes and this should be confirmed with a follow-up test. BUN 19 7 - 25 mg/dL TheatricsJason José Creatinine 1.16 0.70 - 1.28 mg/dL TheatricsJason José eGFR 64 > OR = 60 mL/min/1.7 3m2 TheatricsJason José BUN/creat ratio SEE NOTE: (calc) [employer]-Jason José Comment: ?? Not Reported: BUN and Creatinine are within ?? reference range. ? Sodium 137 135 - 146 mmol/L Frank Sc[facility]-Jason José Potassium, pl 4.1 3.5 - 5.3 mmol/L Frank Sc[facility]-Jason José Chloride 100 98 - 110 mmol/L Frank Murrieta-Jason José CO2 28 20 - 32 mmol/L Frank Murrieta-Jason José Calcium 9.3 8.6 - 10.3 mg/dL Frank [facility]-Jason José Protein, sr 7.1 6.1 - 8.1 g/dL Frank Sc[facility]-Jason José Albumin 4.1 3.6 - 5.1 g/dL Frank Sc[facility] Prevention-Jason José GLOBULIN 3.0 1.9 - 3.7 g/dL (calc) Frank Murrieta-Jason José Alb/glob ratio 1.4 1.0 - 2.5 (calc) TheatricsJason José Bilirubin, total 0.7 0.2 - 1.2 mg/dL Frank Scour PreventionJason José Alk phos 79 35 - 144 U/L Frank CINEPASSJason José AST 14 10 - 35 U/L TheatricsJason José ALT (SGPT) 14 9 - 46 U/L TheatricsJason José Blood 09/20/2023 9:33 AM CDT 09/20/2023 9:34 AM CDT Narrative [facility] - 09/21/2023 4:55 PM CDT FASTING:YES FASTING: YES us Ronaldo Ulrich MD LAB BLOOD ORDERABLES Fin al Result [facility] [address] [place] [address] documented in this encounter Visit Diagnoses Diagnosis Type 2 diabetes mellitus with other circulatory complication, with long-term current use of insulin (HCC)- Primary Hypertensive heart disease without heart failure Unspecified hypertensive heart disease without heart failure 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 2 diabetes mellitus (CMS/HCC) (HCC) Coronary artery disease involving [place] coronary artery of [place] heart without angina pectoris History of colon polyps Atherosclerosis of aorta (CMS/HCC) (HCC) Atherosclerosis of aorta Obstructive sleep apnea Obstructive sleep apnea (adult) (pediatric) 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 mellitus (CMS/HCC) (HCC) Benign prostatic hyperplasia without lower urinary tract symptoms Diabetic nephropathy associated with type 2 diabetes mellitus ([facility]) Class 2 severe obesity due to excess calories with serious comorbidity and body mass index (BMI) of 37.0 to 37.9 in adult (HCC) Herpes simplex Herpes simplex without mention of complication Acute bronchitis, unspecified organism documented in this encounter Discontinued Medications Medication Sig Discontinue Reason Start Date End Da te docusate sodium (COLACE) 100 mg capsuleIndications:cons tipation Take 1 capsule (100 mg total) by mouth daily Therapy completed 03/22/2023 albuterol HFA (ProAir HFA) 90 mcg/actuation inhalerIndications:Acut e bronchitis, unspecified organism Inhale 2 puffs every 4 (four) hours as needed for wheezing or shortness of breath for up to 15 days Reorder 01/21/2021 03/22/2023 irbesartan-hydroCHLOROt hiazide (AVALIDE) 300-12.5 mg per tabletIndications:Hyper tensive heart disease without heart failure Take 1 tablet by mouth daily Reorder 09/12/2022 03/22/2023 metoprolol tartrate (LOPRESSOR) 50 mg immediate release tabletIndications:Hyper tensive heart disease without heart failure,Coronary artery disease involving [place] coronary artery of [place] heart without angina pectoris Take 2 tablets (100 mg total) by mouth every morning AND 1 tablet (50 mg total) daily with lunch. Reorder 09/12/2022 03/22/2023 simvastatin (ZOCOR) 40 mg tabletIndications:Hyper lipidemia due to type 2 diabetes mellitus (HCC) TAKE 1 TABLET BY MOUTH EVERY DAY AT NIGHT Reorder 01/02/2023 03/22/2023 Farxiga 10 mg tabletIndications: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) TAKE 1 TABLET BY MOUTH EVERY DAY Reorder 01/02/2023 03/22/2023 metFORMIN (GLUCOPHAGE) 500 mg tabletIndications: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) TAKE 1 TABLET BY MOUTH TWICE A DAY WITH MEALS Reorder 02/15/2023 03/22/2023 documented as of this encounter Historical Medications * This list may reflect changes made after this encounter. tamsulosin (FLOMAX) 0.4 mg extended release capsule Take 1 capsule (0.4 mg total) by mouth nightly 01/02/2023 09/27/2023 added in this encounter Care Teams Soil Science Technical Officer Relationship Specialty Start Date End Date Ronaldo Ulrich MD [address] [place] [address] PCP - General Internal Medicine 01/18/21 documented as of this encounter
--- OUTSIDE RECORDS SUMMARY | 2024-02-10 01:43 | XMS_ITS | Encounter Summary ---
Author Organization [facility] Address [address] [place] [address] Care Team Providers Care Learning Disabilities Teacher Name Role Phone Ronaldo Ulrich MD Primary Care Provider + Reason for Visit * Reason Onset Date Comments Multiple Medical Complaints 06/09/2023 Encounter Details Date Type Department Care Team (Late st Contact Info) Description 06/09/2023 Nurse Triage [facility] Primary Care [address] [place] [address] Ronaldo Ulrich MD [address] [place], [place] [id number] Social History Tobacco Use Types Packs/Day Years Used Date Smoking Tobacco: Former Cigarettes 1 35 1 948 - 8004 Smokeless Tobacco: Never Comments:Smoking History Pac ks/day: [...] on file 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 He is going to wait and see how he is doing. If not better tomorrow he will go to [facility]. * Telephone Encounter - Shari Honeycutt MA - 06/09/2023 2:10 PM CDT Per Francoise she will see patient or he can go to [facility] * Telephone Encounter - Tita Sears, RN - 06/09/2023 1:57 PM CDT Ayden Santos reports cough, chest tightness, sore throat. Covid test: negative Denies: chest pain, difficulty breathing, fevers. Educated patient on course of a cold/virus, treat with fluid, rest, otc cold medications. No SDA available. Patient aware of a response time, cannot guaranteed a response by today. Aware [facility] [place] if patient needing further assistance. Phone number to cc provided. Ayden Santos is requesting an antibiotics Encounter forward to Ronaldo Ulrich MD clinical thorpe for review and recommendation. Please advise Ayden Santos at [phone] with any further actions. Educated patient to call back if worsens, new symptoms develop or has further questions/concerns. Preferred Pharmacy [facility]/pharmacy #[id number] [place], [place] - [address] [place] [address] [facility] [address] Allergies as of 06/09/2023 - Reviewed 06/09/2023 Allergen Reaction Noted Amlodipine Edema Royce inhibitors Cough Reason for Disposition Cough with cold symptoms (e.g., runny nose, postnasal drip, throat clearing) Protocols used: [id number] * Telephone Encounter - Tita Sears RN - 06/09/2023 1:56 PM CDT Regarding: Chest pain ----- Message from Mike Avila sent at 06/09/2023 1:55 PM CDT ----- Symptom Based Call Chief Complaint(s): chest pain, cough, sore throat Duration: today What type of symptom(s) is the patient experiencing? Red Flag. Is the patient concerned they are experiencing a medical emergency requiring an ambulance? No Additional Comments: covid test was negative Does message need to be routed? Yes-Action Needed documented in this encounter Plan of Treatment Not on file documented as of this encounter Visit Diagnoses Not on filedocumented in this encounter Additional Health Concerns Infection Onset Date Last Indicated Resolved Time COVID: Suspected 06/12/2023 06/12/2023 06/12/2023 10:36 AM CDT documented as of this encounter Care Teams Learning Disabilities Teacher Relationship Specialty Start Date End Date Ronaldo Ulrich MD [address] [place] [address] PCP - General Internal Medicine 01/18/21 documented as of this encounter
--- OUTSIDE RECORDS SUMMARY | 2024-02-10 01:43 | XMS_ITS | Encounter Summary ---
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 Gender Identity Not on file Sexual Orientation Not on file 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 Not on file documented as of this encounter Medications at Time of Discharge aspirin 81 mg chewable tablet Take 1 tablet (81 mg total) by mouth daily 30 tablet 11 04/20/2020 blood glucose diagnostic (ONETOUCH VERIO) strip smbg bid ac 100 each 11 11/21/2018 blood-glucose sensor deviceIndications :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 3 kit 3 05/08/2020 miscellaneous medical supply misc C-Pap subcutaneous insulin pump miscIndications:T ype 2 diabetes mellitus with circulatory disorder (HCC) As directed daily 1 each 08/20/2021 vit C,I-Ry-izoix-lute in-zeaxan 250-90-40-1 mg capsule Take 1 capsule by mouth daily vitamin B complex capsule Take 1 capsule by mouth daily benzonatate (TESSALON) 200 mg capsuleIndication s:Upper respiratory tract infection, unspecified type Take 1 capsule (200 mg total) by mouth 3 (three) times a day as needed for cough for up to 7 days 21 capsule 06/12/2023 4 acyclovir (ZOVIRAX) 400 mg tablet TAKE 1 TABLET (400 MG TOTAL) BY MOUTH 2 TIMES A DAY 180 tablet 1 03/23/2023 4 albuterol HFA (PROVENTIL HFA,VENTOLIN HFA,PROAIR HFA) 90 mcg/actuation inhalerIndication s:Upper respiratory tract infection, unspecified type Inhale 2 puffs every 6 (six) hours as needed for wheezing or shortness of breath for up to 10 days 1 each 06/12/2023 4 dapagliflozin propanediol (Farxiga) 10 mg tabletIndications :Type 2 diabetes mellitus with other circulatory complication, with long-term current use of insulin (HCC) Take 1 tablet (10 mg total) by mouth daily 90 tablet 1 03/22/2023 4 insulin lispro (HumaLOG, ADMELOG) 100 unit/mL pen for injectionIndicati ons: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) INJECT FOR :131-150 2 UNITS, 151-180 4 UNITS, 181-200 6 UNITS, 201-230 8 UNITS, 231-250 10 UNITS, MAX DOSE 30 UNITS PER DAY 15 mL 1 05/23/2023 4 irbesartan-hydroC HLOROthiazide (AVALIDE) 300-12.5 mg per tabletIndications :Hypertensive heart disease without heart failure Take 1 tablet by mouth daily 90 tablet 1 03/22/2023 4 metFORMIN (GLUCOPHAGE) 500 mg tabletIndications :Type 2 diabetes mellitus with other circulatory complication, with long-term current use of insulin (HCC) Take 1 tablet (500 mg total) by mouth 2 (two) times a day with meals 180 tablet 1 03/22/2023 4 metoprolol tartrate (LOPRESSOR) 50 mg immediate release tabletIndications :Hypertensive heart disease without heart failure,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) Take 1 tablet (40 mg total) by mouth nightly 90 tablet 1 03/22/2023 4 tamsulosin (FLOMAX) 0.4 mg extended release capsule Take 1 capsule (0.4 mg total) by mouth nightly 01/02/2023 4 Xultophy 100/3.6 100 unit-3.6 mg /mL (3 mL) insulin pen penIndications:Ty pe 2 diabetes mellitus with circulatory disorder (HCC) INJECT 50 UNITS INTO THE SKIN DAILY 45 mL 1 01/02/2023 4 documented as of this encounter Discharge Disposition Disposition Code Departure Means Destination Discharge to home or self care documented in this encounter Plan of Treatment Not on file documented as of this encounter Procedures Procedure Name Priority Date/Time Associated Diagnosis Comments THROAT CULTURE Routine 06/12/2023 11:05 AM CDT Upper respiratory tract infection, unspecified type documented in this encounter Results * Throat culture Throat (06/12/2023 11:05 AM CDT) Report Final Report: No growth of pathogens. Throat 06/12/2023 11:0 5 AM CDT 06/12/2023 6:19 PM CDT Narrative [facility] - 06/13/2023 1:01 PM CDT Testing performed by [facility] ([phone]). [facility]CRO[facility]OLOG[facility] - [facility] Final Result [facility] Department [place] [address] documented in this encounter Visit Diagnoses Diagnosis Upper respiratory tract infection, unspecified type documented in this encounter Care Teams Window Shade Cutter Relationship Specialty Start Date End Date Ronaldo Ulrich MD [address] [place] [address] PCP - General Internal Medicine 01/18/21 documented as of this encounter
--- OUTSIDE RECORDS SUMMARY | 2024-02-10 01:44 | XMS_ITS | Encounter Summary ---
Author Organization [facility] Address [address] [address] Care Team Providers Care Beef Killer Name Role Phone Ronaldo Ulrich MD Primary Care Provider + Reason for Visit * Reason Onset Date Comments Medical Records Request 06/16/2022 Encounter Details Date Type Department Care Team (Late st Contact Info) Description 06/16/2022 Telephone [facility] Primary Care [address] [place] [address] Ronaldo Ulrich MD [address] [place], [place] [id number] Medical Records Request Social History Tobacco Use [...] drink containing alc ohol? Monthly or less 02/25/2022 Q2: How many drinks containi ng alcohol do you have on a typical day when you are drinking? 1 or 2 02/25/2022 Q3: How often do you have si x or more drinks on one occasion? 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 Pt stated that [employer] was handling and then insurance was changed to [employer]. warm transferred to back line for further assistance. Caller???s Call back #: [phone] Does message need to be routed? No documented in this encounter Plan of Treatment Not on file documented as of this encounter Visit Diagnoses Not on filedocumented in this encounter Care Teams Beef Killer Relationship Specialty Start Date End Date Ronaldo Ulrich MD [address] [place] [address] PCP - General Internal Medicine 01/18/21 documented as of this encounter
--- OUTSIDE RECORDS SUMMARY | 2024-02-10 01:44 | XMS_ITS | Encounter Summary ---
Author Organization [facility] Address [address] [address] Care Team Providers Care [facility] Sales Name Role Phone Ronaldo Ulrich MD Primary Care Provider + Reason for Visit * Reason Onset Date Comments Symptom Based Call 05/12/2022 Encounter Details Date Type Department Care Team (Late st Contact Info) Description 05/12/[address] 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 * Telephone Encounter - Ronaldo Ulrich MD - 05/12/2022 9:08 AM CDT Okay for Paxlovid 1 dose twice a day for 5 days. He needs to quarantine for 5 days and then wear a mask for an additional 5 days. * Telephone Encounter - Shari Honeycutt MA - 05/12/2022 8:51 AM CDT Pt states that his symptoms started yesterday runny nose clear drainage, coughing N/P, sneezing, nofever * Telephone Encounter - Mary Childs - 05/12/2022 8:42 AM CDT Symptom Based Call Caller's Callback #: [phone] Chief Complaint(s): tested positive for Covid today Duration: 05/11/2022 What type of symptom(s) is the patient experiencing? Non-Emergent. Is this a new or reoccurring symptom(s)? new What have you tried to help your symptom(s)? Neti pot - HQ10 Why was appointment not scheduled? Patient refusing appointment regardless of availability. Positive for Covid - no Mychart Additional Comments: pt started having runny nose- cough- no other symptoms at this time - requesting paxlovid. Also having a lot of sneezing. No fever. Pt takes a lot of medications - he is diabetic- treats for BP [facility] [place] Does message need to be routed?Yes-Action Needed documented in this encounter Plan of Treatment Not on file documented as of this encounter Visit Diagnoses Not on filedocumented in this encounter Care Teams [facility] Sales Relationship Specialty Start Date End Date Ronaldo Ulrich MD [address] [place] [id number] PCP - General Internal Medicine 01/18/21 documented as of this encounter
--- OUTSIDE RECORDS SUMMARY | 2024-02-10 01:44 | XMS_ITS | Encounter Summary ---
Author Organization [facility] Address [address] [address] Care Team Providers Care Punch Hand Name Role Phone Ronaldo Ulrich MD Primary Care Provider + Reason for Referral * Consultation (Routine) - Closed Specialty Diagnoses / Procedures Referred By Jp t Referred To Contact Orthopedic Surgery Diagnoses Trigger finger, left ring finger Ronaldo Ulrich MD [address] [place] [address] Phone: tel: fax: Nuria Thapa, OMARI [address] [place] [address] [address] Phone: tel: fax: Referral ID Status Reason Start Date Expiration Date V isits Requested Visits Authorized [id number] Closed Specialty Services Required 09/12/2022 10/12/2023 1 1 Question Answer Please select the performing region: [facility] [[id number]] Please select the performing department: [facility] [[id number]] # of visits: 1 Comments Had injection in 02/2021 which helped. Reason for Visit * Reason Comments Follow-up 6 month, DM, HTN, CA D, hyperlipidemia, atherosclerosis, sleep apnea, neuropathy, prostatic hyperplasia, H/O colon polyps, herpes simplex. Labs 09/08. Pt states that in the last 3-4 months he has tremors in both hands, and the ring finger of his L hand will not bend. Pt states that he will wake up and have a pounding in his head like he can here his heart beat. Encounter Details Date Type Department Care Team (Late st Contact Info) Description 09/12/2022 10:00 AM CDT Office Visit [facility] Primary Care [address] [place] [address] Ronaldo Ulrich MD [address] [place] [address] Type 2 diabetes mellitus with other circulatory complication, with long-term current use of insulin (HCC) (Primary Dx); Hypertensive heart disease without heart failure; 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 2 diabetes mellitus (CMS/HCC) (HCC); Coronary artery disease involving eagle coronary artery of eagle heart without angina pectoris; Atherosclerosis of aorta (CMS/HCC) (HCC); Obstructive sleep apnea; 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 mellitus (CMS/HCC) (HCC); Benign prostatic hyperplasia without lower urinary tract symptoms; Diabetic nephropathy associated with type 2 diabetes mellitus (HCC); History of colon polyps; Class 2 severe obesity due to excess calories with serious comorbidity and body mass index (BMI) of 37.0 to 37.9 in adult (HCC); Herpes simplex; Trigger finger, left ring finger; Benign essential tremor; Type 2 diabetes mellitus with circulatory disorder ([facility]) Social History Tobacco Use Types Packs/Day Years Used Date Smoking Tobacco: Former Cigarettes 1 35 1 948 - 1982 Smokeless Tobacco: Never Comments:Smoking History Pac ks/day: 1 Packs Alcohol Use Standard Drinks/Week Comments Yes 0 (1 standard drink = 0.6 oz pur e alcohol) AUDIT-C Answer Date Recorded Q1: How often do you have a drink containing alc ohol? Monthly or less 09/12/2022 Q2: How many drinks containi ng alcohol do you have on a typical day when you are drinking? 1 or 2 09/12/2022 Q3: How often do you have si x or more drinks on one occasion? 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 Not on file documented as of this encounter Last Filed Vital Signs Vital Sign Reading Time Taken Comments Blood Pressure 140/72 09/12/2022 10:13 AM CDT Pulse 80 09/12/2022 10:13 AM CDT Temperature 36.4 ??C (97.6 ??F) 09/12/2022 1 0:13 AM CDT Respiratory Rate 18 09/12/2022 10:1 3 AM CDT Oxygen Saturation 96% 09/12/2022 10: 13 AM CDT Inhaled Oxygen Concentration - - Weight 120.7 kg (266 lb 1.6 oz) 023 10:13 AM CDT Height 177.8 cm (5' 10 ) 09/12/2022 10: 13 AM CDT Body Mass Index 38.18 09/12/2022 10:13 AM CDT documented in this encounter Ordered Prescriptions Prescription Sig Dispense Quantity Refills Last Filled Start Date End Date metoprolol tartrate (LOPRESSOR) 50 mg immediate release tabletIndications: Hypertensive heart disease without heart failure,Coronary artery disease involving eagle coronary artery of eagle heart without angina pectoris Take 2 tablets (100 mg total) by mouth every morning AND 1 tablet (50 mg total) daily with lunch. 270 tablet 1 09/12/2022 4 simvastatin (ZOCOR) 40 mg tabletIndications: 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) Take 1 tablet (40 mg total) by mouth nightly 90 tablet 1 09/12/2022 3 metFORMIN (GLUCOPHAGE) 500 mg tabletIndications: 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) Take 1 tablet (500 mg total) by mouth 2 (two) times a day with meals 180 tablet 1 09/12/2022 3 irbesartan-hydroCH LOROthiazide (AVALIDE) 300-12.5 mg per tabletIndications: Hypertensive heart disease without heart failure Take 1 tablet by mouth daily 90 tablet 1 09/12/2022 4 insulin lispro (HumaLOG) 100 unit/mL pen for injectionIndicatio ns: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) USE FOLLOWS: 131-150 2 UNITS, 151-180 4 UNITS, 181-200 6 UNITS, 201-230 8 UNITS, 231-250 10 UNITS MAX DOSE 30 UNITS PER DAY 30 mL 1 09/12/2022 4 insulin degludec-liragluti de (Xultophy 100/3.6) 100 unit-3.6 mg /mL (3 mL) insulin pen penIndications:Typ e 2 diabetes mellitus with circulatory disorder (HCC) Inject 50 Units into the skin daily 45 mL 09/12/2022 3 dapagliflozin propanediol (Farxiga) 10 mg tabletIndications: type 2 diabetes mellitus Take 1 tablet (10 mg total) by mouth daily 90 tablet 1 09/12/2022 3 acyclovir (ZOVIRAX) 400 mg tablet Take 1 tablet (400 mg total) by mouth 2 (two) times a day 180 tablet 1 09/12/2022 4 documented in this encounter Progress Notes * Ronaldo Ulrich MD - 09/12/2022 10:00 AM CDT Images from the original note were not included. Subjective/Objective Patient ID: Ayden Santos is a 76 y.o. male. Assessment/Plan Diagnoses and all orders for this visit: Type 2 diabetes mellitus with other circulatory complication, with long-term current use of insulin([facility]) (Primary) Assessment & Plan: Complicated by hypertension coronary artery disease. Stable. Continue Humalog, Xultophy, Farxiga, and metformin. Hypertensive heart disease without heart failure Assessment & Plan: Well controlled on metoprolol and irbesartan hydrochlorothiazide Orders: - irbesartan-hydroCHLOROthiazide (AVALIDE) 300-12.5 mg per tablet; Take 1 tablet by mouth daily - metoprolol tartrate (LOPRESSOR) 50 mg immediate release tablet; Take 2 tablets (100 mg total) by mouth every morning AND 1 tablet (50 mg total) daily with lunch. 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 2 diabetes mellitus (CMS/HCC) (HCC) Assessment & Plan: Well controlled on simvastatin Orders: - simvastatin (ZOCOR) 40 mg tablet; Take 1 tablet (40 mg total) by mouth nightly - Comprehensive metabolic panel; Future - Lipid panel; Future Coronary artery disease involving eagle coronary artery of eagle heart without angina pectoris Assessment & Plan: Stable on aspirin, simvastatin, metoprolol, and Farxiga follows with Dr. Jiménez Orders: - metoprolol tartrate (LOPRESSOR) 50 mg immediate release tablet; Take 2 tablets (100 mg total) by mouth every morning AND 1 tablet (50 mg total) daily with lunch. - Lipid panel; Future Atherosclerosis of aorta ([facility]) ([facility]) Assessment & Plan: Stable on simvastatin and aspirin Obstructive sleep apnea Assessment & Plan: Uses CPAP nightly and benefits from it 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 mellitus ([facility]) ([facility]) Assessment & Plan: Hemoglobin A1c is stable. Continue metformin, Humalog, Farxiga, and Xultophy Benign prostatic hyperplasia without lower urinary tract symptoms Assessment & Plan: Stable on finasteride Diabetic nephropathy associated with type 2 diabetes mellitus ([facility]) Assessment & Plan: Elevated urine microalbumin with preserved renal function. Continue irbesartan hydrochlorothiazide at and Farxiga Orders: - Hemoglobin A1c; Future History of colon polyps Assessment & Plan: Due for repeat colonoscopy in 2023 Class 2 severe obesity due to excess calories with serious comorbidity and body mass index (BMI) of37.0 to 37.9 in adult ([facility]) Assessment & Plan: BMI Follow-up includes: exercise counseling. Herpes simplex Assessment & Plan: Stable on acyclovir Trigger finger, left ring finger - Ambulatory referral to Orthopedic Surgery; Future Benign essential tremor Assessment & Plan: Does not happen often. Will observe Type 2 diabetes mellitus with circulatory disorder ([facility]) Assessment & Plan: Complicated by hypertension coronary artery disease. Stable. Continue Humalog, Xultophy, Farxiga, and metformin. Orders: - dapagliflozin propanediol (Farxiga) 10 mg tablet; Take 1 tablet (10 mg total) by mouth daily - insulin degludec-liraglutide (Xultophy 100/3.6) 100 unit-3.6 mg /mL (3 mL) insulin pen pen; Inject 50 Units into the skin daily - insulin lispro (HumaLOG) 100 unit/mL pen for injection; USE FOLLOWS: 131- 150 2 UNITS, 151-180 4 UNITS, 181-200 6 UNITS, 201-230 8 UNITS, 231-250 10 UNITS MAX DOSE 30 UNITS PER DAY - metFORMIN (GLUCOPHAGE) 500 mg tablet; Take 1 tablet (500 mg total) by mouth 2 (two) times a day with meals Other orders - acyclovir (ZOVIRAX) 400 mg tablet; Take 1 tablet (400 mg total) by mouth 2 (two) times a day Chief Complaint Follow-up for chronic conditions. HPI: Ayden is here for 6 month follow-up for DM, HTN, CAD, hyperlipidemia, atherosclerosis, sleep apnea, neuropathy, prostatic hyperplasia, H/O colon polyps, hand herpes simplex. Labs 09/08. He complains of tremors in both hands for last 3-4 months. It does not happen all the time. He also complains that his left ring finger will lock. Had injection which helped in the past. Current Outpatient Medications Medication Sig Dispense Refill albuterol HFA (ProAir HFA) 90 mcg/actuation inhaler Inhale 2 puffs every 4 (four) hours as needed for wheezing or shortness of breath for up to 15 days 8.5 g 0 aspirin 81 mg chewable tablet Take 1 [...] by Oral route every evening 0 0 finasteride (PROSCAR) 5 mg tablet Take 1 tablet (5 mg total) by mouth daily 90 tablet 1 flash glucose sensor (FreeStyle Erick 2 Sensor) kit Change sensor every two weeks. 3 kit 3 miscellaneous medical supply [facility] C-Pap vit C,E-Ud-duhfz-lutein-zeaxan 250-90-40-1 mg capsule Take 1 capsule by mouth daily acyclovir (ZOVIRAX) 400 mg tablet Take 1 tablet (400 mg total) by mouth 2 (two) times a day 180 tablet 1 dapagliflozin propanediol (Farxiga) 10 mg tablet Take 1 tablet (10 mg total) by mouth daily 90 tablet 1 docusate sodium (COLACE) 100 mg capsule Take 100 mg by mouth daily (Patient not taking: Reported on02/25/2022) insulin degludec-liraglutide (Xultophy 100/3.6) 100 unit-3.6 mg /mL (3 mL) insulin pen pen Inject 50 Units into the skin daily 45 mL 1 insulin lispro (HumaLOG) 100 unit/mL pen for [...] nightly 90 tablet 1 subcutaneous insulin pump misc As directed daily [...] 1008 hour(s)) Comprehensive metabolic panel Collection Time: 09/08/22 12:00 AM Result Value Ref Range Glucose 151 (H) 65 - 99 mg/dL BUN 25 7 - 25 mg/dL Creatinine 1.15 0.70 - 1.28 mg/dL eGFR 66 > OR = 60 mL/min/1.73m2 BUN/creat ratio NOT APPLICABLE 6 - 22 (calc) Sodium 139 135 - 146 mmol/L Potassium, pl 4.3 3.5 - 5.3 mmol/L Chloride 104 98 - 110 mmol/L CO2 25 20 - 32 mmol/L Calcium 9.8 8.6 - 10.3 mg/dL Protein, sr 7.2 6.1 - 8.1 g/dL Albumin 4.1 3.6 - 5.1 g/dL GLOBULIN 3.1 1.9 - 3.7 g/dL (calc) Alb/glob ratio 1.3 1.0 - 2.5 (calc) Bilirubin, total 0.5 0.2 - 1.2 mg/dL Alk phos 79 35 - 144 U/L AST 13 10 - 35 U/L ALT (SGPT) 16 9 - 46 U/L Hemoglobin A1c Collection Time: 09/08/22 12:00 AM Result Value Ref Range Hgb A1C 7.5 (H) <5.7 % of total Hgb Lipid panel Collection Time: 09/08/22 12:00 AM Result Value Ref Range Cholesterol 133 <200 mg/dL HDL 40 > OR = 40 mg/dL Triglycerides 205 (H) <150 mg/dL LDL 66 mg/dL (calc) Chol/HDL ratio 3.3 <5.0 (calc) Non-HDL, (LDL+VLDL) 93 <130 mg/dL (calc) Albumin Creatinine Ratio, Urine Collection Time: 09/08/22 12:00 AM Result Value Ref Range Creatinine, ur 54 20 - 320 mg/dL Microalbumin, ur 19.9 See Note: mg/dL Microalbumin/creat ratio 369 (H) <30 mcg/mg creat Physical Exam: BP 140/72 (BP Location: Left arm, Patient Position: Sitting) Pulse 80 Temp 36.4 ??C (97.6 ??F) (Skin) Resp 18 Ht 177.8 cm (5' 10 ) Wt 120.7 kg (266 lb 1.6 oz) SpO2 96% BMI 38.18 kg/m?? Physical Exam Constitutional: Appearance: He is [...] soft. Tenderness: There is no abdominal tenderness. Feet: Right Foot: Monofilament exam: normal. Protective Sensation: 4 sites tested. 4 sites sensed. Left Foot: Monofilament exam: normal. Protective Sensation: 4 sites tested. 4 sites sensed. Skin: General: Skin is warm and dry. Findings: No rash. Neurological: Mental Status: He is alert and oriented to person, place, and time. Ronaldo Ulrich MD documented in this encounter Miscellaneous Notes * Assessment & Plan Note - Ronaldo Ulrich MD - 09/12/2022 10:34 AM CDT Associated Problem(s): Benign essential tremor Does not happen often. Will observe * Assessment & Plan Note - Ronaldo Ulrich MD - 09/07/2022 11:24 AM CDT Associated Problem(s): Herpes simplex Stable on acyclovir * Assessment & Plan Note - Ronaldo Ulrich MD - 09/07/2022 11:24 AM CDT Associated Problem(s): Class 2 severe obesity due to excess calories with serious comorbidity and body mass index (BMI) of 37.0 to 37.9 in adult (HCC) BMI Follow-up includes: exercise counseling. * Assessment & Plan Note - Ronaldo Ulrich MD - 09/07/2022 11:24 AM CDT Associated Problem(s): History of colon polyps Due for repeat colonoscopy in 2023 * Assessment & Plan Note - Ronaldo Ulrich MD - 09/07/2022 11:23 AM CDT Associated Problem(s): Diabetic nephropathy associated with type 2 diabetes mellitus (HCC) Elevated urine microalbumin with preserved renal function. Continue irbesartan hydrochlorothiazide at and Farxiga * Assessment & Plan Note - Ronaldo Ulrich MD - 09/07/2022 11:23 AM CDT Associated Problem(s): Benign prostatic hyperplasia without lower urinary tract symptoms Stable on finasteride * Assessment & Plan Note - Ronaldo Ulrich MD - 09/07/2022 11:23 AM CDT Associated Problem(s): 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 mellitus (CMS/HCC) (HCC) Hemoglobin A1c is stable. Continue metformin, Humalog, Farxiga, and Xultophy * Assessment & Plan Note - Ronaldo Ulrich MD - 09/07/2022 11:23 AM CDT Associated Problem(s): Obstructive sleep apnea Uses CPAP nightly and benefits from it * Assessment & Plan Note - Ronaldo Ulrich MD - 09/07/2022 11:22 AM CDT Associated Problem(s): Atherosclerosis of aorta (CMS/HCC) ([facility]) Stable on simvastatin and aspirin * Assessment & Plan Note - Ronaldo Ulrich MD - 09/07/2022 11:22 AM CDT Associated Problem(s): Coronary artery disease involving eagle coronary artery of eagle heart without angina pectoris Stable on aspirin, simvastatin, metoprolol, and Farxiga follows with Dr. Jiménez * Assessment & Plan Note - Ronaldo Ulrich MD - 09/07/2022 11:22 AM CDT Associated Problem(s): 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 2 diabetes mellitus ([facility]) ([facility]) Well controlled on simvastatin * Assessment & Plan Note - Ronaldo Ulrich MD - 09/07/2022 11:22 AM CDT Associated Problem(s): Hypertensive heart disease without heart failure Well controlled on metoprolol and irbesartan hydrochlorothiazide * Assessment & Plan Note - Ronaldo Ulrich MD - 09/07/2022 11:22 AM CDT Associated Problem(s): Type 2 diabetes mellitus with circulatory disorder (CMS/HCC) ([facility]) Complicated by hypertension coronary artery disease. Stable. Continue Humalog, Xultophy, Farxiga, and metformin. documented in this encounter Plan of Treatment Scheduled Referrals Name Type Priority Associated Diagnoses Order Schedule Ambulatory referral to Orthopedic Surgery Outpatient Referral Routine Trigger finger, left ring finger Expected: 09/26/2022 (Approximate), Expires: 09/13/2023 documented as of this encounter Procedures Procedure Name Priority Date/Time Associated Diagnosis Comments HEMOGLOBIN A1C Routine 03/15/2023 7:47 AM SEAM SEWER Diabetic nephropathy associated with type 2 diabetes mellitus (HCC) LIPID PANEL Routine 03/15/2023 7:47 AM SEAM SEWER 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 2 diabetes mellitus (CMS/HCC) (HCC) Coronary artery disease involving eagle coronary artery of eagle heart without angina pectoris COMPREHENSIVE METABOLIC PANEL Routine 03/15/2023 7:47 AM SEAM SEWER 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 2 diabetes mellitus (CMS/HCC) (HCC) documented in this encounter Results * (ABNORMAL) Lipid panel (03/15/2023 7:47 AM SEAM SEWER) Cholesterol 110 <200 mg/dL [facility] HDL 30(L) > OR = 40 mg/dL [facility] Triglycerides 161(H) <150 mg/dL [facility] LDL 56 mg/dL (calc) [facility] Comment: Reference range: <100 Desirable range <100 mg/dL for primary prevention; ?? <70 mg/dL for patients with CHD or diabetic patients with > or = 2 CHD risk factors. LDL-C is now calculated using the Nishant-Lizeth calculation, which is a validated novel method providing better accuracy than the Friedewald equation in the estimation of LDL-C. Nishant GHOTRA et al. IRVING. 2013;310(19): 5270-8552 (http://education.[employer]/faq/LDT444) Chol/HDL ratio 3.7 <5.0 (calc) [facility] Non-HDL, (LDL+VLDL) 80 <130 mg/dL (calc) [facility] Comment: For patients with diabetes plus 1 major ASCVD risk factor, treating to a non-HDL-C goal of <100 mg/dL (LDL-C of <70 mg/dL) is considered a therapeutic option. Blood 03/15/2023 7:47 AM SEAM SEWER 03/15/2023 7:47 AM SEAM SEWER Narrative [facility] - 03/17/2023 1:39 PM SEAM SEWER FASTING:YES FASTING: YES Ronaldo Ulrich MD LAB BLOOD ORDERABLES Fin al Result Performing Organization Address [facility] de Phone Number [id number] [address] [place] [address] * (ABNORMAL) Hemoglobin A1c (03/15/2023 7:47 AM SEAM SEWER) Hgb A1C 7.0(H) <5.7 % of total Hgb [facility] Comment: For someone without known diabetes, a [...] A1c for diagnosis of diabetes for children. ?? HbA1c performed on [employer] platform. ?? Blood 03/15/2023 7:47 AM SEAM SEWER 03/15/2023 7:47 AM SEAM SEWER Narrative [facility] - 03/17/2023 1:39 PM SEAM SEWER FASTING:YES FASTING: YES Result [facility] Ronaldo Ulrich MD LAB BLOOD ORDERABLES Fin al Result Performing Organization Address [facility] de Phone Number [id number] [address] [place] [address] * (ABNORMAL) Comprehensive metabolic panel (03/15/2023 7:47 AM SEAM SEWER) Glucose 139(H) 65 - 99 mg/dL [facility] Comment: ? Fasting reference interval For someone without known diabetes, a glucose value >125 mg/dL indicates that they may have diabetes and this should be confirmed with a follow-up test. BUN 26(H) 7 - 25 mg/dL [facility] Creatinine 1.16 0.70 - 1.28 mg/dL [facility] eGFR 64 > OR = 60 mL/min/1.7 3m2 [facility] BUN/creat ratio 22 6 - 22 (calc) [facility] Sodium 139 135 - 146 mmol/L [facility] Potassium, pl 4.5 3.5 - 5.3 mmol/L [facility] Chloride 104 98 - 110 mmol/L [facility] CO2 21 20 - 32 mmol/L [facility] Calcium 9.1 8.6 - 10.3 mg/dL [facility] Protein, sr 7.2 6.1 - 8.1 g/dL [facility] Albumin 4.0 3.6 - 5.1 g/dL [facility] GLOBULIN 3.2 1.9 - 3.7 g/dL (calc) [facility] Alb/glob ratio 1.3 1.0 - 2.5 (calc) [facility] Bilirubin, total 0.5 0.2 - 1.2 mg/dL [facility] Alk phos 73 35 - 144 U/L [facility] AST 14 10 - 35 U/L [facility] ALT (SGPT) 14 9 - 46 U/L [facility] Blood 03/15/2023 7:47 AM SEAM SEWER 03/15/2023 7:47 AM SEAM SEWER Narrative [facility] - 03/17/2023 1:39 PM SEAM SEWER FASTING:YES FASTING: YES us Ronaldo Ulrich MD LAB BLOOD ORDERABLES Fin al Result [facility] [address] [place] [address] documented in this encounter Visit Diagnoses Diagnosis Type 2 diabetes mellitus with other circulatory complication, with long-term current use of insulin (HCC)- Primary Hypertensive heart disease without heart failure Unspecified hypertensive heart disease without heart failure 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 2 diabetes mellitus (CMS/HCC) (HCC) Coronary artery disease involving eagle coronary artery of eagle heart without angina pectoris Atherosclerosis of aorta (CMS/HCC) (HCC) Atherosclerosis of aorta Obstructive sleep apnea Obstructive sleep apnea (adult) (pediatric) 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 mellitus (CMS/HCC) (HCC) Benign prostatic hyperplasia without lower urinary tract symptoms Diabetic nephropathy associated with type 2 diabetes mellitus (HCC) History of colon polyps Class 2 severe obesity due to excess calories with serious comorbidity and body mass index (BMI) of 37.0 to 37.9 in adult (HCC) Herpes simplex Herpes simplex without mention of complication Trigger finger, left ring finger Benign essential tremor Essential and other specified forms of tremor 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) documented in this encounter Discontinued Medications Medication Sig Discontinue Reason Start Date End Da te gabapentin (NEURONTIN) 100 mg capsule gabapentin 100 mg capsule Therapy completed 09/12/2022 insulin lispro (HumaLOG) 100 unit/mL pen for injectionIndications:Ty pe 2 diabetes mellitus with circulatory disorder (HCC) USE FOLLOWS: 131-150 2 UNITS, 151-180 4 UNITS, 181-200 6 UNITS, 201-230 8 UNITS, 231-250 10 UNITS MAX DOSE 30 UNITS PER DAY Reorder 08/20/2021 09/12/2022 insulin degludec-liraglutide (Xultophy 100/3.6) 100 unit-3.6 mg /mL (3 mL) insulin pen penIndications: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) Inject 50 Units into the skin daily Reorder 03/17/2022 09/12/2022 metFORMIN (GLUCOPHAGE) 500 mg tabletIndications: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) Take 1 tablet (500 mg total) by mouth 2 (two) times a day with meals Reorder 04/25/2022 09/12/2022 metoprolol tartrate (LOPRESSOR) 50 mg immediate release tabletIndications:Hyper tensive heart disease without heart failure,Coronary artery disease involving eagle coronary artery of eagle heart without angina pectoris Take 2 tablets (100 mg total) by mouth every morning AND 1 tablet (50 mg total) daily with lunch. Reorder 04/25/2022 09/12/2022 simvastatin (ZOCOR) 40 mg tabletIndications:Hyper lipidemia due to type 2 diabetes mellitus (HCC) Take 1 tablet (40 mg total) by mouth nightly Reorder 04/25/2022 09/12/2022 dapagliflozin (Farxiga) 10 mg tabletIndications: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) Take 1 tablet (10 mg total) by mouth daily Reorder 04/25/2022 09/12/2022 acyclovir (ZOVIRAX) 400 mg tablet Take 1 tablet (400 mg total) by mouth 2 (two) times a day Reorder 04/25/2022 09/12/2022 irbesartan-hydroCHLOROt hiazide (AVALIDE) 300-12.5 mg per tabletIndications:Hyper tensive heart disease without heart failure Take 1 tablet by mouth daily Reorder 04/25/2022 09/12/2022 documented as of this encounter Care Teams Punch Hand Relationship Specialty Start Date End Date Ronaldo Ulrich MD [address] [place] [address] PCP - General Internal Medicine 01/18/21 documented as of this encounter
--- OUTSIDE RECORDS SUMMARY | 2024-02-10 01:44 | XMS_ITS | Encounter Summary ---
Author Organization [facility] Healthcare Address [address] [place] [address] Care Team Providers Care Behavioral Sciences Department Chair Name Role Phone Ronaldo Ulrich MD Primary Care Provider + Reason for Visit * Reason Onset Date Comments Chart Review 12/13/2022 Encounter Details Date Type Department Care Team (Late st Contact Info) Description 12/13/2022 Telephone [facility] Accountable Care Organization [address] [place] [address] Bouchra Beck MA [address] [place] [address] Chart Review Social History Tobacco Use Types Packs/Day Years [...] file 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 According to this report, Simvastatin was last refilled on 09/12/2022 for a 90 day supply. Goal is to have enough medicine so that 80% or more of the days are covered each year. Filled 90 day supply on 12/07/2022 The patient was not contacted during this encounter. Bouchra Beck CMA Patient Quality Litigator [facility] [phone] documented in this encounter Plan of Treatment Not on file documented as of this encounter Visit Diagnoses Not on filedocumented in this encounter Care Teams Behavioral Sciences Department Chair Relationship Specialty Start Date End Date Ronaldo Ulrich MD [address] [place] [address] PCP - General Internal Medicine 01/18/21 documented as of this encounter
--- OUTSIDE RECORDS SUMMARY | 2024-02-10 01:44 | XMS_ITS | Encounter Summary ---
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 Unable to verify any request from fax was sent. [facility] stated that shewill fax the NETTA once pt signs and then will fax to office and call back and wanted to make office aware. Caller???s Call back #: [phone] Does message need to be routed?Yes-FYI Only ICAL LABORATORY SCIENCE PROFESSOR documented in this encounter Plan of Treatment Not on file documented as of this encounter Visit Diagnoses Not on filedocumented in this encounter Care Teams Application Architect Relationship Specialty Start Date End Date Ronaldo Ulrich MD [address] [place] [id number] PCP - General Internal Medicine 01/18/21 documented as of this encounter
--- OUTSIDE RECORDS SUMMARY | 2024-02-10 01:44 | XMS_ITS | Encounter Summary ---
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 Gender Identity Not on file Sexual Orientation Not on file 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 Pharmacy will be sending a fax and pt asking that this be sent to them fatmata to obtain rx Does message need to be routed? Yes-Action Needed ESTATE REP documented in this encounter Plan of Treatment Not on file documented as of this encounter Visit Diagnoses Not on filedocumented in this encounter Care Teams Associate Director Finance Relationship Specialty Start Date End Date Ronaldo Ulrich MD [address] [place] [address] PCP - General Internal Medicine 01/18/21 documented as of this encounter
--- OUTSIDE RECORDS SUMMARY | 2024-02-10 01:44 | XMS_ITS | Encounter Summary ---
Author Organization [facility] Address [address] [address] Care Team Providers Care Fur Puller Name Role Phone Ronaldo Ulrich MD Primary Care Provider + Reason for Visit * Reason Onset Date Comments Medical Question/Miscellaneous 09/07/2022 Encounter Details Date Type Department Care Team (Late st Contact Info) Description 09/07/[address] 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 Wants to ensure order is placed. Caller???s Call back #: [phone] Does message need to be routed? Yes-Action Needed documented in this encounter Plan of Treatment Not on file documented as of this encounter Visit Diagnoses Not on filedocumented in this encounter Care Teams Fur Puller Relationship Specialty Start Date End Date Ronaldo Ulrich MD [address] [place] [id number] PCP - General Internal Medicine 01/18/21 documented as of this encounter
--- OUTSIDE RECORDS SUMMARY | 2024-02-10 01:44 | XMS_ITS | Encounter Summary ---
Author Organization [facility] Address [address] [address] Care Team Providers Care Cardiovascular Lab Director Name Role Phone Ronaldo Ulrich MD Primary Care Provider + Reason for Referral * Procedure (Routine) - Closed Specialty Diagnoses / Procedures Referred By Contac t Referred To Contact Diagnoses Trigger finger, left ring finger Procedures Hand / Upper Extremity Arthrocentesis: L small A1 Nuria Thapa PA [facility] [facility] [address] [place] [address] Phone: tel: fax: [facility] Referral ID Status Reason Start Date Expiration Date Visits Re quested Visits Authorized [id number] Closed 09/26/2022 10/26/2023 1 1 Reason for Visit * Reason Comments Follow-up * Consultation (Routine) - Closed Specialty Diagnoses / Procedures Referred By Contaida t Referred To Contact Orthopedic Surgery Diagnoses Trigger finger, left ring finger Ronaldo Ulrich MD [address] [place] [address] Phone: tel: fax: Nuria Thapa PA [address] [facility] [address] [place] [address] Phone: tel: fax: Referral ID Status Reason Start Date Expiration Date V isits Requested Visits Authorized [id number] Closed Specialty Services Required 09/12/2022 10/12/2023 1 1 Encounter Details Date Type Department Care Team (Late st Contact Info) Description 09/23/2022 10:00 AM CDT Office Visit [facility] Hand Surgery [address] [facility] [address] [place] [address] Nuria Thapa PA [address] [place] [address] [address] [place] [address] Trigger finger, left ring finger Social History Tobacco Use Types Packs/Day Years [...] on file 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 Patient ID: Ayden Santos is a 76 y.o. male. Visit Date: 09/23/2022 Chief Complaint: Chief Complaint Patient presents with ??? Left Ring Finger - Follow-up HPI: Patient is a 76-year-old male who presents with complaints of left ring trigger finger. I last saw him on 03/08/2021 as a new patient, and at that time he received his 1st injection of the left ring A1 bridgette for treatment of her trigger digit. Reports the injection helped significantly and he onlyrecently began having symptoms of triggering over the last 2 weeks. He does have a history of insulin-dependent diabetes. He would like a repeat injection today. Physical Exam: General: A&O x 3, NAD, Well appearing Eyes: EOMs intact. PERRL. Integument: skin is warm and dry. Neuro: CN II-XII grossly intact. Pt gait is stable, balance WNL. Sensation intact. Cardiovascular: 2+ capillary refill to all upper digits bilaterally. On examination of the left hand he has difficulty achieving full active flexion of the left ring finger, and has moderate tenderness with palpation over the left ring A1 bridgette. Other than this, he is able to achieve full active composite flexion extension of the hand. He is neurovascularly intact to tips of digits. X-rays/Imagin. Trigger finger, left ring finger Assessment/Plan Diagnoses and all orders for this visit: Trigger finger, left ring finger - Ambulatory referral to Orthopedic Surgery Treatment / Plan: Today I injected the patient's left ring A1 bridgette for treatment of his trigger digit. He will follow up as needed. I did advise him that corticosteroids can elevate blood glucose levels. He will call the office with any other questions or concerns. Hand / Upper Extremity Arthrocentesis: L small A1 Performed by: Nuria Thapa PA Authorized by: Nuria Thapa PA Hand/Upper Extremity Injection: Consent Given by: Patient Site marked: the procedure site was marked Timeout: prior to procedure the correct patient, procedure, and site was verified Verbal consent obtained?: Yes Written consent obtained?: No Supporting Documentation: Indications: Pain Procedure Details: Condition: trigger finger Location: Small finger Site: L small A1 Prep: patient was prepped and draped in usual sterile fashion Prep: patient was prepped using a clean technique Needle Size: 27 G Approach: Volar Ultrasound guidance: No Medications: 1 mL lidocaine 10 mg/mL (1 %); 10 mg triamcinolone 40 mg/mL OMARI Isaac documented in this encounter Plan of Treatment Not on file documented as of this encounter Procedures Procedure Name Priority Date/Time Associated Diagnosis Comments [place] INJECTION 1 TENDON SHEATH/LIGAMENT APONEUROSIS Routine 09/23/2022 10:00 AM CDT Trigger finger, left ring finger documented in this encounter Results * TN INJECTION 1 TENDON SHEATH/LIGAMENT APONEUROSIS (09/23/2022 10:00 AM CDT) Narrative Nuria Thapa PA - 09/23/2022 10:00 AM CDT Nuria Thapa PA ? 09/26/2022 10:37 AM Hand / Upper Extremity Arthrocentesis: L small A1 Performed by: Nuria Thapa PA Authorized by: Nuria Thapa PA ?? Hand/Upper Extremity Injection: ??Consent Given by: ??Patient ??Site marked: the procedure site was marked ?Timeout: prior to procedure the correct patient, procedure, and site was verified ?Verbal consent obtained?: Yes ?Written consent obtained?: No ?? Supporting Documentation: ??Indications: ??Pain Procedure Details: ??Condition: trigger finger ?Location: ??Small finger ??Site: ??L small A1 ??Prep: patient was prepped and draped in usual sterile fashion ?Prep: patient was prepped using a clean technique ?Needle Size: ??27 G ??Approach: ??Volar ??Ultrasound guidance: No ?Medications: ??1 mL lidocaine 10 mg/mL (1 %); 10 mg triamcinolone 40 mg/mL us Nuria SALCIDO IN CLINIC/BEDSIDE ORDERABLES F inal Result documented in this encounter Visit Diagnoses Diagnosis Trigger finger, left ring finger documented in this encounter Administered Medications Inactive Administered Medications - up to 3 most recent administrations Medication Order MAR Action Action Date Dose Rate Site lidocaine (XYLOCAINE) 10 mg/mL (1 %) injection 1 mL 1 mL, One-Time Injection, Starting on Mon09/26/22 at 1037, For 1 dose, Indications: Administration of Local AnesthesiaIndications:Admin istration of Local Anesthesia Given 09/26/2022 10:37 AM CDT 1 mL Left Little Finger triamcinolone (KENALOG) 40 mg/mL injection 10 mg 10 mg, intra-articular, One-Time Injection, Starting on Mon09/26/22 at 1037, For 1 doseIndications:Trigger finger, left ring finger Given 09/26/2022 10:37 AM CDT 10 mg Left Little Finger documented in this encounter Orders Outpatient Referral Count Last Ordered Date Fir st Ordered Date AMB REFERRAL TO ORTHOPEDIC SURGERY 1 2022 documented in this encounter Care Teams Cardiovascular Lab Director Relationship Specialty Start Date End Date Ronaldo Ulrich MD [address] [place] [address] PCP - General Internal Medicine 01/18/21 documented as of this encounter
--- OUTSIDE RECORDS SUMMARY | 2024-02-10 01:45 | XMS_ITS | Encounter Summary ---
Author Organization [facility] Address [address] [place] [address] Care Team Providers Care Auto Glass Installer Name Role Phone Ronaldo Ulrich MD Primary Care Provider + Reason for Visit * Reason Onset Date Comments ACO Quality Outreach 12/08/2021 Encounter Details Date Type Department Care Team (Late st Contact Info) Description 12/08/2021 Telephone [facility] Accountable Care Organization [address] [place] [address] Angelica Garcia MA [address] [place] [address] [address] [place] [address] ACO Quality Outreach Social History Tobacco Use Types Packs/Day Years Used Date Smoking Tobacco: Former Cigarettes 1 35 1 948 - 1983 Smokeless Tobacco: Never Comments:Smoking History Pac ks/day: 1 Packs Alcohol Use Standard Drinks/Week Comments Yes 0 (1 standard drink = 0.6 oz pur e alcohol) AUDIT-C Answer Date Recorded Q1: How often do you have a drink containing alcohol? Never 08/20/2021 Q2: How many drinks containi ng alcohol do you have on a typical day when you are drinking? Patient does not drink Q3: How often do you have si x or more drinks on one occasion? 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 Refill of Simvastatin was due 11-22. Patient last filled a 30 day supply Pt will call the pharmacy. Pt stated he has a few left now YOAN Laguna Patient Outreach Dish Carrier [facility] [phone] documented in this encounter Plan of Treatment Not on file documented as of this encounter Visit Diagnoses Not on filedocumented in this encounter Care Teams Auto Glass Installer Relationship Specialty Start Date End Date Ronaldo Ulrich MD [address] [place] [address] PCP - General Internal Medicine 01/18/21 documented as of this encounter
--- OUTSIDE RECORDS SUMMARY | 2024-02-10 01:45 | XMS_ITS | Encounter Summary ---
Author Organization [facility] Address [address] [facility] [address] [place] [address] Care Team Providers Care Flat Folding Machine Operator Name Role Phone Ronaldo Ulrich MD Primary Care Provider + Reason for Visit * Reason Onset Date Comments ACO Quality Outreach 11/23/2021 Encounter Details Date Type Department Care Team (Late st Contact Info) Description 11/23/2021 Telephone [facility] Accountable Care Organization [address] [place] [address] Angelica Garcia MA [address] [place] [address] [address] [place] [address] ACO Quality Outreach Social History Tobacco Use [...] file 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 Refill of Simvastatin was due 11-22. Patient last filled a 30 day supply. Called patient. Left VM to return call to this teletypewriter operator to discuss. YOAN Laguna Patient Outreach Drug Room Operator [facility] [phone] documented in this encounter Plan of Treatment Not on file documented as of this encounter Visit Diagnoses Not on filedocumented in this encounter Additional Health Concerns Infection Onset Date Last Indicated Resolved Time COVID: Recovered Comment:Added based on recent COVID infection. 08/03/2021 08/19/2021 12/01/2021 3:05 AM C DT documented as of this encounter Care Teams Flat Folding Machine Operator Relationship Specialty Start Date End Date Ronaldo Ulrich MD [address] [place] [address] PCP - General Internal Medicine 01/18/21 documented as of this encounter
--- OUTSIDE RECORDS SUMMARY | 2024-02-10 01:45 | XMS_ITS | Encounter Summary ---
Author Organization [facility] Address [address] [facility] [address] [place] [address] Care Team Providers Care Molder Foam Rubber Name Role Phone Ronaldo Ulrich MD Primary Care Provider + Reason for Visit * Reason Onset Date Comments Covid-19 Home Monitoring 07/29/2021 Encounter Details Date Type Department Care Team (Late st Contact Info) Description 07/29/2021 Telephone [facility] Accountable Care Organization [address] [place] [address] Rosa Valdivia, [address] [place] [address] Covid-19 Home Monitoring Social History Tobacco Use Types Packs/Day Years Used Date Smoking Tobacco: Former Cigarettes 1 35 1 948 - 1983 Smokeless Tobacco: Never Comments:Smoking History Pac ks/day: 1 Packs Alcohol Use Standard Drinks/Week Comments Yes 0 (1 standard drink = 0.6 oz pur e alcohol) AUDIT-C Answer Date Recorded Q1: How often do you have a drink containing alc ohol? Never 02/11/2021 Q2: How many drinks containi ng alcohol do you have on a typical day when you are drinking? 1 or 2 02/11/2021 Q3: How often do you have six or more drinks on one occasion? 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 : No This patient has enrolled in the PHONE ONLY version of COVID-19 Home Monitoring Program. COVID-19 Symptom questionnaire was completed today. Symptoms were addressed to be Mild. Escalation was not needed. This patient is being disenrolled from the phone-only version of the COVID-19 home monitoring program for the following reason: Complete The patient has either completed the full 14-day program or has expressed 3 days of improved or no symptoms and 7 days since initial onset. We recommend that they are scheduled for a telemedicine evaluation with a primary care provider within 3 days of completion of the program. For questions or concerns about the home monitoring program, please contact . documented in this encounter Plan of Treatment Not on file documented as of this encounter Visit Diagnoses Not on filedocumented in this encounter Additional Health Concerns Infection Onset Date Last Indicated Resolved Time COVID19 07/24/2021 07/24/2021 08/03/2021 3:05 AM CDT documented as of this encounter Care Teams Molder Foam Rubber Relationship Specialty Start Date End Date Ronaldo Ulrich MD [address] [place] [address] PCP - General Internal Medicine 01/18/21 documented as of this encounter
--- OUTSIDE RECORDS SUMMARY | 2024-02-10 01:45 | XMS_ITS | Encounter Summary ---
Author Organization [facility] Address [address] [address] Care Team Providers Care Informatics Nurse Name Role Phone Ronaldo Ulrich MD Primary Care Provider + Reason for Visit * Reason Comments Follow-up 6 month, medicare we llness, DM, HTN, CAD, hyperlipidemia, diabetic nephropathy, atherosclerosis, sleep apnea, H/O colon polyps, prostatic hyperplasia, herpes simplex, labs /.C/O that when he wakes up in the morning he feels like there is a pulsing on his forehead, states it feels like he can hear his hear beat through his head . Pt would like to discuss A1C. Pt states that he has been feeling lethargic for the last 6 months. Believes that it happens when his glucose is too high. Encounter Details Date Type Department Care Team (Late st Contact Info) Description 02/25/2022 9:30 AM CITY ALDERMAN Office Visit [facility] Primary Care [address] [place] [id number] Ronaldo Ulrich MD [address] [place] [address] Encounter for Medicare annual wellness exam (Primary Dx); Type 2 diabetes mellitus with circulatory disorder (CMS/HCC) (HCC); Hypertensive heart disease without heart failure; 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 2 diabetes mellitus (CMS/HCC) (HCC); Diabetic nephropathy associated with type 2 diabetes mellitus (HCC); 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 mellitus ([facility]) ([facility]); Coronary artery disease involving eyak coronary artery of eyak heart without angina pectoris; Atherosclerosis of aorta ([facility]) ([facility]); Obstructive sleep apnea; History of colon polyps; Benign prostatic hyperplasia without lower urinary tract symptoms; Class 2 severe obesity due to excess calories with serious comorbidity and body mass index (BMI) of 37.0 to 37.9 in adult ([facility]); Herpes simplex; Other headache syndrome Social History Tobacco Use Types Packs/Day Years Used Date Smoking Tobacco: Former Cigarettes 1 35 1 948 1982 Smokeless Tobacco: Never Comments:Smoking History Pac [...] on file Legal Sex Male 11:37 AM CITY ALDERMAN Gender Identity Not on file Sexual Orientation Not on file 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 Not on file documented as of this encounter Last Filed Vital Signs Vital Sign Reading Time Taken Comments Blood Pressure 138/64 02/25/2022 9:22 AM CITY ALDERMAN Pulse 85 02/25/2022 9:22 AM CITY ALDERMAN Temperature 35.6 ??C (96 ??F) 02/25/2022 9:22 AM CITY ALDERMAN Respiratory Rate 18 02/25/2022 9:22 AM CITY ALDERMAN Oxygen Saturation 97% 02/25/2022 9:22 AM CITY ALDERMAN Inhaled Oxygen Concentration - - Weight 119.7 kg (263 lb 14.4 oz) 02/25/2022 9:22 AM CITY ALDERMAN Height 177.8 cm (5' 10 ) 02/25/2022 9:22 AM CITY ALDERMAN Body Mass Index 37.87 02/25/2022 9:22 AM CITY ALDERMAN documented in this encounter Progress Notes * Ronaldo Ulrich MD - 02/25/2022 9:30 AM CST Images from the original note were not included. Subjective/Objective Patient ID: Ayden Santos is a 76 y.o. male. Assessment/Plan Diagnoses and all orders for this visit: Encounter for Medicare annual wellness exam (Primary) Type 2 diabetes mellitus with circulatory disorder ([facility] ([facility]) Assessment & Plan: Complicated by hypertension coronary artery disease. Hemoglobin A1c is improving. Continue Humalog,Xultophy, Farxiga, and metformin. Hypertensive heart disease without heart failure Assessment & Plan: Well controlled on metoprolol and irbesartan hydrochlorothiazide 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 2 diabetes mellitus ([facility] ([facility]) Assessment & Plan: Well controlled on simvastatin Diabetic nephropathy associated with type 2 diabetes mellitus ([facility]) Assessment & Plan: Elevated urine microalbumin with preserved renal function. Continue irbesartan hydrochlorothiazide at and Farxiga 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 mellitus ([facility] ([facility]) Assessment & Plan: Hemoglobin A1c is stable. Continue metformin, Humalog, Farxiga, and Xultophy Coronary artery disease involving eyak coronary artery of eyak heart without angina pectoris Assessment & Plan: Stable on aspirin, simvastatin, metoprolol, and Farxiga follows with Dr. Jiménez Atherosclerosis of aorta ([facility] ([facility]) Assessment & Plan: Stable on simvastatin aspirin Obstructive sleep apnea Assessment & Plan: Uses CPAP nightly and benefits from it History of colon polyps Assessment & Plan: Due for repeat colonoscopy in 2023 Benign prostatic hyperplasia without lower urinary tract symptoms Assessment & Plan: Stable on finasteride Class 2 severe obesity due to excess calories with serious comorbidity and body mass index (BMI) of37.0 to 37.9 in adult ([facility]) Assessment & Plan: BMI Follow-up includes: exercise counseling. Herpes simplex Assessment & Plan: Stable on acyclovir Other headache syndrome Assessment & Plan: Possibly secondary to hypertension since happens before he takes his medicine. Move second dose metoprolol to the evening. Chief Complaint Follow-up for chronic conditions HPI: Ayden is here for a six-month follow-up for DM, HTN, CAD, hyperlipidemia, diabetic nephropathy, atherosclerosis, sleep apnea, H/O colon polyps, prostatic hyperplasia, and herpes simplex. He is also here for a wellness visit. labs 01/21. He complains he feels l a pulsing on his forehead, states it feels like he can hear his hear beat through his head when he first wakes up in the morning. Current Outpatient Medications Medication Sig Dispense Refill acyclovir (ZOVIRAX) 400 mg tablet Take 1 tablet (400 mg total) by mouth 2 (two) times a day 180 tablet 0 aspirin 81 mg chewable tablet Take 1 tablet (81 mg total) by mouth daily 30 tablet 11 blood glucose diagnostic (Little BirdTOUCH VERIO) strip smbg bid ac 100 each 11 blood-glucose sensor device Use daily 1 each 0 cholecalciferol (VITAMIN D-3) 2,000 unit capsule Take 2,000 Units by mouth daily coenzyme Q10 (COQ-10) 100 mg capsule take 3 by Oral route every evening 0 0 finasteride (PROSCAR) 5 mg tablet Take 1 tablet (5 mg total) by mouth daily 90 tablet 0 flash glucose sensor (FreeStyle Erick 2 Sensor) kit Change sensor every two weeks. 3 kit 3 insulin degludec-liraglutide (Xultophy 100/3.6) 100 unit-3.6 mg [...] 1 tablet by mouth daily 90 tablet 0 metFORMIN (GLUCOPHAGE) 500 mg tablet Take 1 tablet (500 mg total) by mouth 2 (two) times a day withmeals 180 tablet 0 metoprolol tartrate (LOPRESSOR) 50 mg immediate release tablet Take 2 tablets (100 mg total) by mouth every morning AND 1 tablet (50 mg total) daily with lunch. 270 tablet 0 ProvencellFlexEl [facility] C-Pap vit C,S-Xj-ptkme-lutein-zeaxan 250-90-40-1 mg capsule Take 1 capsule by mouth daily albuterol HFA (ProAir HFA) 90 mcg/actuation inhaler Inhale 2 puffs every 4 (four) hours as needed for wheezing or shortness of breath for up to 15 days (Patient not taking: Reported on 02/25/2022) 8.5 g 0 dapagliflozin (Farxiga) 10 mg tablet Take 1 tablet (10 mg total) by mouth daily (Patient not taking: Reported on 02/25/2022) 90 tablet 0 docusate sodium (COLACE) 100 mg capsule Take 100 mg by mouth daily (Patient not taking: Reported on02/25/2022) gabapentin (NEURONTIN) 100 mg capsule gabapentin 100 mg capsule (Patient not taking: Reported on 08/20/2021) simvastatin (ZOCOR) 40 mg tablet Take 1 tablet (40 mg total) by mouth nightly (Patient not taking: Reported on 02/25/2022) 90 tablet 0 subcutaneous insulin pump misc As directed daily [...] 1008 hour(s)) Comprehensive metabolic panel Collection Time: 02/17/22 7:12 AM Result Value Ref Range Glucose 156 (H) 65 - 99 mg/dL BUN 20 7 - 25 mg/dL Creatinine 1.15 0.70 - 1.28 mg/dL eGFR 66 > OR = 60 mL/min/1.73m2 BUN/creat ratio NOT APPLICABLE 6 - (calc) Sodium 141 135 - 146 mmol/L Potassium, pl 4.2 3.5 - 5.3 mmol/L Chloride 103 98 - 110 mmol/L CO2 29 20 - 32 mmol/L Calcium 9.5 8.6 - 10.3 mg/dL Protein, sr 7.5 6.1 - 8.1 g/dL Albumin 4.2 3.6 - 5.1 g/dL GLOBULIN 3.3 1.9 - 3.7 g/dL (calc) Alb/glob ratio 1.3 1.0 - 2.5 (calc) Bilirubin, total 0.5 0.2 - 1.2 mg/dL Alk phos 76 35 - 144 U/L AST 15 10 - 35 U/L ALT (SGPT) 15 9 - 46 U/L Hemoglobin A1c Collection Time: 02/17/22 7:12 AM Result Value Ref Range Hgb A1C 7.9 (H) <5.7 % of total Hgb Lipid panel Collection Time: 02/17/22 7:12 AM Result Value Ref Range Cholesterol 141 <200 mg/dL HDL 38 (L) > OR = 40 mg/dL Triglycerides 212 (H) <150 mg/dL LDL 72 mg/dL (calc) Chol/HDL ratio 3.7 <5.0 (calc) Non-HDL, (LDL+VLDL) 103 <130 mg/dL (calc) Physical Exam: BP 138/64 (BP Location: Left arm, Patient Position: Sitting) Pulse 85 Temp (!) 35.6 ??C (96 ??F) (Skin) Resp 18 Ht 177.8 cm (5' 10 ) Wt 119.7 kg (263 lb 14.4 oz) SpO2 97% BMI 37.87 kg/m?? Physical Exam Constitutional: Appearance: He is [...] person, place, and time. Ronaldo Ulrich MD ALDERMAN documented in this encounter Miscellaneous Notes * Assessment & Plan Note - Ronaldo Ulrich MD - 02/25/2022 9:36 AM CITY ALDERMAN Associated Problem(s): Other headache syndrome (Resolved 09/26/2023) Possibly secondary to hypertension since happens before he takes his medicine. Move second dose metoprolol to the evening. ALDERMAN * Assessment & Plan Note - Ronaldo Ulrich MD - 02/24/2022 12:54 PM CITY ALDERMAN Associated Problem(s): Herpes simplex Stable on acyclovir ALDERMAN * Assessment & Plan Note - Ronaldo Ulrich MD - 02/24/2022 12:54 PM CITY ALDERMAN Associated Problem(s): Class 2 severe obesity due to excess calories with serious comorbidity and body mass index (BMI) of 37.0 to 37.9 in adult (HCC) BMI Follow-up includes: exercise counseling. ALDERMAN * Assessment & Plan Note - Ronaldo Ulrich MD - 02/24/2022 12:54 PM CITY ALDERMAN Associated Problem(s): Benign prostatic hyperplasia without lower urinary tract symptoms Stable on finasteride ALDERMAN * Assessment & Plan Note - Ronaldo Ulrich MD - 02/24/2022 12:53 PM [place] ALDERMAN Associated Problem(s): History of colon polyps Due for repeat colonoscopy in 2023 ALDERMAN * Assessment & Plan Note - Ronaldo Ulrich MD - 02/24/2022 12:53 PM CITY ALDERMAN Associated Problem(s): Obstructive sleep apnea Uses CPAP nightly and benefits from it ALDERMAN * Assessment & Plan Note - Ronaldo Ulrich MD - 02/24/2022 12:53 PM CITY ALDERMAN Associated Problem(s): Atherosclerosis of aorta (CMS/HCC) ([facility]) Stable on simvastatin aspirin ALDERMAN * Assessment & Plan Note - Ronaldo Ulrich MD - 02/24/2022 12:52 PM CITY ALDERMAN Associated Problem(s): Coronary artery disease involving eyak coronary artery of eyak heart without angina pectoris Stable on aspirin, simvastatin, metoprolol, and Farxiga follows with Dr. Jiménez ALDERMAN * Assessment & Plan Note - Ronaldo Ulrich MD - 02/24/2022 12:51 PM CITY ALDERMAN Associated Problem(s): 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 mellitus ([facility]) ([facility]) Hemoglobin A1c is stable. Continue metformin, Humalog, Farxiga, and Xultophy ALDERMAN * Assessment & Plan Note - Ronaldo Ulrich MD - 02/24/2022 12:51 PM CITY ALDERMAN Associated Problem(s): Diabetic nephropathy associated with type 2 diabetes mellitus ([facility]) Elevated urine microalbumin with preserved renal function. 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 Hemoglobin A1c is improving. Continue Humalog,Xultophy, Farxiga, and metformin. 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Result (mcg/mg creatinine) Normal to Mildly increased ?? <30 Moderately increased ? 30-299 Severely increased ? > OR = 300 The ADA recommends that at least two of three specimens collected within a 3-6 month period be abnormal before considering a patient to be within a diagnostic category. Urine 09/08/2022 09/08/2022 8:3 0 AM CDT Narrative [facility] - 09/09/2022 10:01 AM CDT FASTING:YES FASTING: YES Ronaldo Ulrich MD LAB URINE ORDERABLES Fin al Result [facility] [address] [place] [address] * (ABNORMAL) Lipid panel (09/08/2022 12:00 AM CDT) Pathologist [facility] Cholesterol 133 <200 mg/dL [facility] HDL 40 > OR = 40 mg/dL [facility] Triglycerides 205(H) <150 mg/dL [facility] Comment: If a non-fasting specimen was collected, consider repeat triglyceride testing on a fasting specimen if clinically indicated. Wilmer et al. J. of Clin. Lipidol. 2015;9:129-169. LDL 66 mg/dL (calc) [facility] Comment: Reference range: <100 Desirable range <100 mg/dL for primary prevention; ?? <70 mg/dL for patients with CHD or diabetic patients with > or = 2 CHD risk factors. LDL-C is now calculated using the Yuni calculation, which is a validated novel method providing better accuracy than the Friedewald equation in the estimation of LDL-C. Nishant GHOTRA et al. IRVING. 2013;310(19): 8896-6015 (http://education.ClariFI.Glycominds/faq/XEQ345) Chol/HDL ratio 3.3 <5.0 (calc) [facility] Non-HDL, (LDL+VLDL) 93 <130 mg/dL (calc) [facility] Comment: For patients with diabetes plus 1 major ASCVD risk factor, treating to a non-HDL-C goal of <100 mg/dL (LDL-C of <70 mg/dL) is considered a therapeutic option. Blood 09/08/2022 09/08/2022 8:3 0 AM CDT Narrative [facility] - 09/09/2022 10:01 AM CDT FASTING:YES FASTING: YES Ronaldo Ulrich MD LAB BLOOD ORDERABLES Fin al Result Performing Organization Address [facility] de Phone Number [facility] [address] [place] [address] * (ABNORMAL) Hemoglobin A1c (09/08/2022 12:00 AM CDT) Hgb A1C 7.5(H) <5.7 % of total Hgb [facility] Comment: For someone without known diabetes, a [...] for diagnosis of diabetes for children. ?? Blood 09/08/2022 09/08/2022 8:3 0 AM CDT Narrative [facility] - 09/09/2022 10:01 AM CDT FASTING:YES FASTING: YES Ronaldo Ulrich MD LAB BLOOD ORDERABLES Fin al Result Performing Organization Address [facility] Co de Phone Number [facility] [address] [place] [address] * (ABNORMAL) Comprehensive metabolic panel (09/08/2022 12:00 AM CDT) Glucose 151(H) 65 - 99 mg/dL [facility] Comment: ? Fasting reference interval For someone without known diabetes, a glucose value >125 mg/dL indicates that they may have diabetes and this should be confirmed with a follow-up test. BUN 25 7 - 25 mg/dL [facility] Creatinine 1.15 0.70 - 1.28 mg/dL [facility] eGFR 66 > OR = 60 mL/min/1. 73m2 [facility] Comment: The eGFR is based on the CKD-EPI 2020 equation. To calculate the new eGFR from a previous Creatinine or Cystatin C result, go to https://www.kidney.org/professionals/ kdoqi/gfr%5Fcalculator BUN/creat ratio NOT APPLICABLE 6 - 22 (calc) [facility] Sodium 139 135 - 146 mmol/L [facility] Potassium, pl 4.3 3.5 - 5.3 mmol/L [facility] Chloride 104 98 - 110 mmol/L [facility] CO2 25 20 - 32 mmol/L [facility] Calcium 9.8 8.6 - 10.3 mg/dL [facility] Protein, sr 7.2 6.1 - 8.1 g/dL [facility] Albumin 4.1 3.6 - 5.1 g/dL [facility] GLOBULIN 3.1 1.9 - 3.7 g/dL (calc) [facility] Alb/glob ratio 1.3 1.0 - 2.5 (calc) [facility] Bilirubin, total 0.5 0.2 - 1.2 mg/dL [facility] Alk phos 79 35 - 144 U/L [facility] AST 13 10 - 35 U/L [facility] ALT (SGPT) 16 9 - 46 U/L [facility] Blood 09/08/2022 09/08/2022 8:3 0 AM CDT Narrative [facility] - 09/09/2022 10:01 AM CDT FASTING:YES FASTING: YES Ronaldo Ulrich MD LAB BLOOD ORDERABLES Fin al Result [facility] [address] [place] [address] documented in this encounter Visit Diagnoses Diagnosis Encounter for Medicare annual wellness exam- Primary 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) Hypertensive heart disease without heart failure Unspecified hypertensive heart disease without heart failure 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) Diabetic nephropathy associated with type 2 diabetes mellitus (HCC) 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 mellitus (CMS/HCC) (HCC) Coronary artery disease involving eyak coronary artery of eyak heart without angina pectoris Atherosclerosis of aorta (HCC) Atherosclerosis of aorta Obstructive sleep apnea Obstructive sleep apnea (adult) (pediatric) History of colon polyps Benign prostatic hyperplasia without lower urinary tract symptoms Class 2 severe obesity due to excess calories with serious comorbidity and body mass index (BMI) of 37.0 to 37.9 in adult (HCC) Herpes simplex Herpes simplex without mention of complication Other headache syndrome documented in this encounter Care Teams Informatics Nurse Relationship Specialty Start Date End Date Ronaldo Ulrich MD [address] [place] [address] PCP - General Internal Medicine 01/18/21 documented as of this encounter
--- OUTSIDE RECORDS SUMMARY | 2024-02-10 01:45 | XMS_ITS | Encounter Summary ---
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 08/03/2021 08/19/2021 12/01/2021 3:05 AM C DT documented as of this encounter Care Teams Hot Dip Plating Supervisor Relationship Specialty Start Date End Date Ronaldo Ulrich MD [address] [place] [address] PCP - General Internal Medicine 01/18/21 documented as of this encounter
--- OUTSIDE RECORDS SUMMARY | 2024-02-10 01:45 | XMS_ITS | Encounter Summary ---
Author Organization [facility] Address [address] [address] Care Team Providers Care Senior Principal Name Role Phone Ronaldo Ulrich MD Primary Care Provider + Reason for Visit * Reason Comments Follow-up 6 month, hyperlipide calvin, peripheral neuropathy, diabetic neuropathy, prostatic hyperplasia, atherosclerosis, H/O colon polyps, sleep apnea, pt would like to see about doing automatic insulin pump. Encounter Details Date Type Department Care Team (Late st Contact Info) Description 08/20/2021 9:30 AM CDT Office Visit [facility] Primary Care [address] [place] [id number] Ronaldo Ulrich MD [address] [place], [place] [id number] Type 2 diabetes mellitus with circulatory disorder (CMS/HCC) (HCC) (Primary Dx); Hypertensive heart disease without heart failure; 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 2 diabetes mellitus (CMS/HCC) (HCC); Coronary artery disease involving [place] coronary artery of [place] heart without angina pectoris; 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 mellitus (CMS/HCC) (HCC); Diabetic nephropathy associated with type 2 diabetes mellitus (HCC); Benign prostatic hyperplasia without lower urinary tract symptoms; Atherosclerosis of aorta (CMS/HCC) (HCC); History of colon polyps; Class 2 severe obesity due to excess calories with serious comorbidity and body mass index (BMI) of 37.0 to 37.9 in adult (HCC); Obstructive sleep apnea Social History Tobacco Use Types Packs/Day Years [...] on file 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 Gender Identity Not on file Sexual Orientation Not on file 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 Not on file documented as of this encounter Last Filed Vital Signs Vital Sign Reading Time Taken Comments Blood Pressure 130/78 08/20/2021 9:28 AM CDT Pulse 75 08/20/2021 9:28 AM CDT Temperature 35.9 ??C (96.6 ??F) 08/20/2021 9:28 AM CD T Respiratory Rate 18 08/20/2021 9:28 AM CDT Oxygen Saturation 96% 08/20/2021 9:28 AM CDT Inhaled Oxygen Concentration - - Weight 119.5 kg (263 lb 6.4 oz) 08/20/2021 9:28 AM CDT Height 179.1 cm (5' 10.5 ) 08/20/2021 9:28 AM CD T Body Mass Index 37.26 08/20/2021 9:28 AM CDT documented in this encounter Ordered Prescriptions Prescription Sig Dispense Quantity Refills Last Filled Start Date End Date blood-glucose sensor deviceIndications: 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) Use daily 1 each 08/20/2021 subcutaneous insulin pump miscIndications:Ty pe 2 diabetes mellitus with circulatory disorder (HCC) As directed daily 1 each 08/20/2021 insulin degludec-liragluti de (Xultophy 100/3.6) 100 unit-3.6 mg /mL (3 mL) insulin pen penIndications:Typ e 2 diabetes mellitus with circulatory disorder (HCC) Inject 50 Units into the skin daily 45 mL 1 08/20/2021 3 metoprolol tartrate (LOPRESSOR) 50 mg immediate release tabletIndications: Hypertensive heart disease without heart failure,Coronary artery disease involving [place] coronary artery of [place] heart without angina pectoris Take 2 tablets (100 mg total) by mouth every morning AND 1 tablet (50 mg total) daily with lunch. 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) Take 1 tablet (40 mg total) by mouth nightly 90 tablet 1 08/20/2021 2 acyclovir (ZOVIRAX) 400 mg tablet Take 1 tablet (400 mg total) by mouth 2 (two) times a day 180 tablet 1 08/20/2021 2 finasteride (PROSCAR) 5 mg tabletIndications: Benign prostatic hyperplasia without lower urinary tract symptoms Take 1 tablet (5 mg total) by mouth daily 90 tablet 08/20/2021 2 dapagliflozin (Farxiga) 10 mg tabletIndications: type 2 diabetes mellitus Take 1 tablet (10 mg total) by mouth daily 90 tablet 1 08/20/2021 2 metFORMIN (GLUCOPHAGE) 500 mg tabletIndications: 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) Take 1 tablet (500 mg total) by mouth 2 (two) times a day with meals 180 tablet 1 08/20/2021 2 documented in this encounter Progress Notes * Ronaldo Ulrich MD - 08/20/2021 9:30 AM CDT Images from the original note were not included. Subjective/Objective Patient ID: Ayden Santos is a 75 y.o. male. Assessment/Plan Diagnoses and all orders for this visit: Type 2 diabetes mellitus with circulatory disorder (CMS/HCC) ([facility]) (Primary) Assessment & Plan: Complicated by hypertension and coronary artery disease. Hemoglobin A1c is stable, but still elevated. Continue Humalog, Xultophy, and metformin. Increased Farxiga 10 mg once day. Will try to arrange a insulin pump. Orders: - metFORMIN (GLUCOPHAGE) 500 mg tablet; Take 1 tablet (500 mg total) by mouth 2 (two) times a day with meals - dapagliflozin (Farxiga) 10 mg tablet; Take 1 tablet (10 mg total) by mouth daily - insulin lispro (HumaLOG) 100 unit/mL pen for injection; USE FOLLOWS: 131- 150 2 UNITS, 151-180 4 UNITS, 181-200 6 UNITS, 201-230 8 UNITS, 231-250 10 UNITS MAX DOSE 30 UNITS PER DAY - insulin degludec-liraglutide (Xultophy 100/3.6) 100 unit-3.6 mg /mL (3 mL) insulin pen pen; Inject 50 Units into the skin daily - Hemoglobin A1c; Future Hypertensive heart disease without heart failure Assessment & Plan: Well controlled on metoprolol and irbesartan hydrochlorothiazide Orders: - irbesartan-hydroCHLOROthiazide (AVALIDE) 300-12.5 mg per tablet; Take 1 tablet by mouth daily - metoprolol tartrate (LOPRESSOR) 50 mg immediate release tablet; Take 2 tablets (100 mg total) by mouth every morning AND 1 tablet (50 mg total) daily with lunch. - Comprehensive metabolic panel; Future 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 2 diabetes mellitus (CMS/HCC) ([facility]) Assessment & Plan: Well controlled on simvastatin Orders: - simvastatin (ZOCOR) 40 mg tablet; Take 1 tablet (40 mg total) by mouth nightly - Comprehensive metabolic panel; Future - Lipid panel; Future Coronary artery disease involving [place] coronary artery of [place] heart without angina pectoris Assessment & Plan: Stable on aspirin, simvastatin, metoprolol, Farxiga, and aspirin. Follows with Dr. Jiménez Orders: - metoprolol tartrate (LOPRESSOR) 50 mg immediate release tablet; Take 2 tablets (100 mg total) by mouth every morning AND 1 tablet (50 mg total) daily with lunch. 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 mellitus (CMS/HCC) ([facility]) Assessment & Plan: Hemoglobin A1c is stable. Continue metformin, Humalog, Farxiga, and Xultophy. Neuropathy controlled with gabapentin Diabetic nephropathy associated with type 2 diabetes mellitus ([facility]) Assessment & Plan: Urine microalbumin remains elevated. Preserved renal function. Continue irbesartan hydrochlorothiazide and Farxiga for renal protection Benign prostatic hyperplasia without lower urinary tract symptoms Assessment & Plan: Stable on finasteride Orders: - finasteride (PROSCAR) 5 mg tablet; Take 1 tablet (5 mg total) by mouth daily Atherosclerosis of aorta (CMS/HCC) ([facility]) Assessment & Plan: Stable on simvastatin and aspirin History of colon polyps Assessment & Plan: Had colonoscopy by Dr. Schmitt in December of 2020. Recommend repeat colonoscopy in 2023 Class 2 severe obesity due to excess calories with serious comorbidity and body mass index (BMI) of37.0 to 37.9 in adult ([facility]) Assessment & Plan: BMI Follow-up includes: exercise counseling. Obstructive sleep apnea Assessment & Plan: Uses CPAP nightly and benefits from it Other orders - acyclovir (ZOVIRAX) 400 mg tablet; Take 1 tablet (400 mg total) by mouth 2 (two) times a day Chief Complaint Follow-up for chronic conditions. HPI: Ayden is here for a six-month follow-up for hyperlipidemia, peripheral neuropathy, diabetic neuropathy, prostatic hyperplasia, coronary artery, H/O colon polyps, and sleep apnea. He has no complaints today. Current Outpatient Medications Medication Sig Dispense Refill ??? albuterol HFA (ProAir HFA) 90 mcg/actuation inhaler Inhale 2 puffs every 4 (four) hours as needed for wheezing or shortness of breath for up to 15 days 8.5 g 0 ??? aspirin 81 mg chewable tablet Take 1 tablet (81 mg total) by mouth daily 30 tablet 11 ??? blood glucose diagnostic (SCRM VERIO) strip smbg bid ac 100 each 11 ??? cholecalciferol (VITAMIN D-3) 2,000 unit capsule Take 2,000 Units by mouth daily ??? coenzyme Q10 (COQ-10) 100 mg capsule take 3 by Oral route every evening 0 0 ??? docusate sodium (COLACE) 100 mg capsule Take 100 mg by mouth daily ??? flash glucose sensor (FreeStyle Erick 2 Sensor) kit Change sensor every two weeks. 3 kit 3 ??? miscellaneous medical supply misc C-Pap ??? vit C,S-Ht-ieluu-lutein-zeaxan 250-90-40-1 mg capsule Take 1 capsule by mouth daily ??? vitamin B complex capsule Take 1 capsule by mouth daily ??? acyclovir (ZOVIRAX) 400 mg tablet Take 1 tablet (400 mg total) by mouth 2 (two) times a day 180tablet 1 ??? dapagliflozin (Farxiga) 10 mg tablet Take 1 tablet (10 mg total) by mouth daily 90 tablet 1 ??? finasteride (PROSCAR) 5 mg tablet Take 1 tablet (5 mg total) by mouth daily 90 tablet 0 ??? gabapentin (NEURONTIN) 100 mg capsule gabapentin 100 mg capsule (Patient not taking: Reported on 08/20/2021) ??? insulin degludec-liraglutide (Xultophy 100/3.6) 100 unit-3.6 mg /mL (3 mL) insulin pen pen Inject 50 Units into the skin daily 45 mL 1 ??? insulin lispro (HumaLOG) 100 unit/mL pen for injection USE FOLLOWS: 131- 150 2 UNITS, 151-1804 UNITS, 181-200 6 UNITS, 201-230 8 UNITS, 231-250 10 UNITS MAX DOSE 30 UNITS PER DAY 30 mL 1 ??? irbesartan-hydroCHLOROthiazide (AVALIDE) 300-12.5 mg per tablet Take 1 tablet by mouth daily 90tablet 0 ??? metFORMIN (GLUCOPHAGE) 500 mg tablet Take 1 tablet (500 mg total) by mouth 2 (two) times a day with meals 180 tablet 1 ??? metoprolol tartrate (LOPRESSOR) 50 mg immediate release tablet Take 2 tablets (100 mg total) bymouth every morning AND 1 tablet (50 mg total) daily with lunch. 270 tablet 1 ??? simvastatin (ZOCOR) 40 mg tablet Take 1 tablet (40 mg total) by mouth nightly 90 tablet 1 No current facility-administered medications for this visit. [...] Recent Results (from the past 1008 hour(s)) Influenza A/B, RSV, and COVID-19 PCR Nasopharyngeal Collection Time: 07/24/21 8:39 AM Specimen: Nasopharyngeal Result Value Ref Range COVID-19 RNA Positive (A) Negative Influenza A RNA Negative Negative Influenza B RNA Negative Negative RSV RNA Negative Negative Comprehensive metabolic panel Collection Time: 08/11/21 12:59 PM Result Value Ref Range Glucose 246 (H) 65 - 99 mg/dL BUN 21 7 - 25 mg/dL Creatinine 1.23 (H) 0.70 - 1.18 mg/dL eGFR NON-AFR. QATARI 57 (L) > OR = 60 mL/min/1.73m2 EGFR 66 > OR = 60 mL/min/1.73m2 BUN/creat ratio 17 6 - 22 (calc) Sodium 137 135 - 146 mmol/L Potassium, pl 4.6 3.5 - 5.3 mmol/L Chloride 101 98 - 110 mmol/L CO2 25 20 - 32 mmol/L Calcium 9.5 8.6 - 10.3 mg/dL Protein, sr 7.5 6.1 - 8.1 g/dL Albumin 4.1 3.6 - 5.1 g/dL GLOBULIN 3.4 1.9 - 3.7 g/dL (calc) Alb/glob ratio 1.2 1.0 - 2.5 (calc) Bilirubin, total 0.6 0.2 - 1.2 mg/dL Alk phos 80 35 - 144 U/L AST 20 10 - 35 U/L ALT (SGPT) 23 9 - 46 U/L Hemoglobin A1c Collection Time: 08/11/21 12:59 PM Result Value Ref Range Hgb A1C 8.3 (H) <5.7 % of total Hgb Lipid panel Collection Time: 08/11/21 12:59 PM Result Value Ref Range Cholesterol 127 <200 mg/dL HDL 40 > OR = 40 mg/dL Triglycerides 195 (H) <150 mg/dL LDL 60 mg/dL (calc) Chol/HDL ratio 3.2 <5.0 (calc) Non-HDL, (LDL+VLDL) 87 <130 mg/dL (calc) Albumin Creatinine Ratio, Urine Collection Time: 08/11/21 12:59 PM Result Value Ref Range Creatinine, ur 52 20 - 320 mg/dL Microalbumin, ur 11.5 See Note: mg/dL Microalbumin/creat ratio 221 (H) <30 mcg/mg creat PSA screen Collection Time: 08/11/21 12:59 PM Result Value Ref Range PSA 1.48 < OR = 4.00 ng/mL Physical Exam: BP 130/78 (BP Location: Left arm, Patient Position: Sitting) Pulse 75 Temp (!) 35.9 ??C (96.6 ??F) (Skin) Resp 18 Ht 179.1 cm (5' 10.5 ) Wt 119.5 kg (263 lb 6.4 oz) SpO2 96% BMI 37.26 kg/m?? Physical Exam Constitutional: Appearance: He is [...] Plan Note - Ronaldo Ulrich MD - 08/19/2021 7:25 AM CDT Associated Problem(s): Obstructive sleep apnea Uses CPAP nightly and benefits from it * Assessment & Plan Note - Ronaldo Ulrich MD - 08/19/2021 7:24 AM CDT Associated Problem(s): Class 2 severe obesity due to excess calories with serious comorbidity and body mass index (BMI) of 37.0 to 37.9 in adult ([facility]) BMI Follow-up includes: exercise counseling. * Assessment & Plan Note - Ronaldo Ulrich MD - 08/19/2021 7:23 AM CDT Associated Problem(s): History of colon polyps Had colonoscopy by Dr. Schmitt in December of 2020. Recommend repeat colonoscopy in 2023 * Assessment & Plan Note - Ronaldo Ulrich MD - 08/19/2021 7:22 AM CDT Associated Problem(s): Atherosclerosis of aorta (CMS/HCC) ([facility]) Stable on simvastatin and aspirin * Assessment & Plan Note - Ronaldo Ulrich MD - 08/19/2021 7:22 AM CDT Associated Problem(s): Benign prostatic hyperplasia without lower urinary tract symptoms Stable on finasteride * Assessment & Plan Note - Ronaldo Ulrich MD - 08/19/2021 7:21 AM CDT Associated Problem(s): Diabetic nephropathy associated with type 2 diabetes mellitus (HCC) Urine microalbumin remains elevated. Preserved renal function. Continue irbesartan hydrochlorothiazide and Farxiga for renal protection * Assessment & Plan Note - Ronaldo Ulrich MD - 08/19/2021 7:21 AM CDT Associated Problem(s): 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 mellitus (CMS/HCC) (HCC) Hemoglobin A1c is stable. Continue metformin, Humalog, Farxiga, and Xultophy. Neuropathy controlled with gabapentin * Assessment & Plan Note - Ronaldo Ulrich MD - 08/19/2021 7:20 AM CDT Associated Problem(s): Coronary artery disease involving [place] coronary artery of [place] heart without angina pectoris Stable on aspirin, simvastatin, metoprolol, Farxiga, and aspirin. Follows with Dr. Jiménez * Assessment & Plan Note - Ronaldo Ulrich MD - 08/19/2021 7:20 AM CDT Associated Problem(s): 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 2 diabetes mellitus (CMS/HCC) (HCC) Well controlled on simvastatin * Assessment & Plan Note - Ronaldo Ulrich MD - 08/19/2021 7:19 AM CDT Associated Problem(s): Hypertensive heart disease without heart failure Well controlled on metoprolol and irbesartan hydrochlorothiazide * Assessment & Plan Note - Ronaldo Ulrich MD - 08/19/2021 7:18 AM CDT Associated Problem(s): Type 2 diabetes mellitus with circulatory disorder (CMS/HCC) ([facility]) Complicated by hypertension and coronary artery disease. Hemoglobin A1c is stable, but still elevated. Continue Humalog, Xultophy, and metformin. Increased Farxiga 10 mg once day. Will try to arrange a insulin pump. documented in this encounter Plan of Treatment Not on file documented as of this encounter Procedures Procedure Name Priority Date/Time Associated Diagnosis Comments HEMOGLOBIN A1C Routine 02/17/2022 7:12 AM SIMPLEX OPERATOR Type 2 diabetes mellitus with circulatory disorder ([facility]/HCC) ([facility]) LIPID PANEL Routine 02/17/2022 7:12 AM SIMPLEX OPERATOR 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 2 diabetes mellitus ([facility]/HCC) (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) documented in this encounter Results * (ABNORMAL) Lipid panel (02/17/2022 7:12 AM SIMPLEX OPERATOR) Cholesterol 141 <200 mg/dL [facility] HDL 38(L) > OR = 40 mg/dL [facility] Triglycerides 212(H) <150 mg/dL [facility] Comment: If a non-fasting specimen was collected, consider repeat triglyceride testing on a fasting specimen if clinically indicated. Wilmer et al. J. of Clin. Lipidol. 2015;9:129-169. LDL 72 mg/dL (calc) [facility] Comment: Reference range: <100 Desirable range <100 mg/dL for primary prevention; ?? <70 mg/dL for patients with CHD or diabetic patients with > or = 2 CHD risk factors. LDL-C is now calculated using the Nishant-Stanley calculation, which is a validated novel method providing better accuracy than the Friedewald equation in the estimation of LDL-C. Nishant SS et al. IRVING. 2013;310(19): 7857-2550 (http://education.[employer]/faq/ZSM794) Chol/HDL ratio 3.7 <5.0 (calc) [facility] Non-HDL, (LDL+VLDL) 103 <130 mg/dL (calc) [facility] Comment: For patients with diabetes plus 1 major ASCVD risk factor, treating to a non-HDL-C goal of <100 mg/dL (LDL-C of <70 mg/dL) is considered a therapeutic option. Blood specimen (specimen) 02/17/2022 7:12 AM SIMPLEX OPERATOR 02/17/2022 7:12 AM SIMPLEX OPERATOR Ronaldo Ulrich MD LAB BLOOD ORDERABLES Fin al Result [facility] [address] [place] [address] * (ABNORMAL) Hemoglobin A1c (02/17/2022 7:12 AM SIMPLEX OPERATOR) Hgb A1C 7.9(H) <5.7 % of total Hgb [facility] Comment: For someone without known diabetes, [...] diagnosis of diabetes for children. ?? Blood specimen (specimen) 02/17/2022 7:12 AM SIMPLEX OPERATOR 02/17/2022 7:12 AM SIMPLEX OPERATOR us Ronaldo Ulrich MD LAB BLOOD ORDERABLES Fin al Result [facility] [address] [place] [address] * (ABNORMAL) Comprehensive metabolic panel (02/17/2022 7:12 AM SIMPLEX OPERATOR) Glucose 156(H) 65 - 99 mg/dL [facility] Comment: ? Fasting reference interval For someone without known diabetes, a glucose value >125 mg/dL indicates that they may have diabetes and this should be confirmed with a follow-up test. BUN 20 7 - 25 mg/dL [facility] Creatinine 1.15 0.70 - 1.28 mg/dL [facility] eGFR 66 > OR = 60 mL/min/1. 73m2 [facility] Comment: The eGFR is based on the CKD-EPI 2020 equation. To calculate the new eGFR from a previous Creatinine or Cystatin C result, go to https://www.kidney.org/professionals/ kdoqi/gfr%5Fcalculator BUN/creat ratio NOT APPLICABLE 6 (calc) [facility] Sodium 141 135 - 146 mmol/L [facility] Potassium, pl 4.2 3.5 - 5.3 mmol/L [facility] Chloride 103 98 - 110 mmol/L [facility] CO2 29 20 - 32 mmol/L [facility] Calcium 9.5 8.6 - 10.3 mg/dL [facility] Protein, sr 7.5 6.1 - 8.1 g/dL [facility] Albumin 4.2 3.6 - 5.1 g/dL [facility] GLOBULIN 3.3 1.9 - 3.7 g/dL (calc) [facility] Alb/glob ratio 1.3 1.0 - 2.5 (calc) [facility] Bilirubin, total 0.5 0.2 - 1.2 mg/dL [facility] Alk phos 76 35 - 144 U/L [facility] AST 15 10 - 35 U/L [facility] ALT (SGPT) 15 9 - 46 U/L [facility] Blood specimen (specimen) 02/17/2022 7:12 AM SIMPLEX OPERATOR 02/17/2022 7:12 AM SIMPLEX OPERATOR us Ronaldo Ulrich MD LAB BLOOD ORDERABLES Fin al Result [facility] [address] [place] [address] documented in this encounter Visit Diagnoses Diagnosis 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)- Primary Hypertensive heart disease without heart failure Unspecified hypertensive heart disease without heart failure 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) Coronary artery disease involving [place] coronary artery of [place] heart without angina pectoris 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 mellitus (CMS/HCC) (HCC) Diabetic nephropathy associated with type 2 diabetes mellitus (HCC) Benign prostatic hyperplasia without lower urinary tract symptoms Atherosclerosis of aorta (HCC) Atherosclerosis of aorta History of colon polyps Class 2 severe obesity due to excess calories with serious comorbidity and body mass index (BMI) of 37.0 to 37.9 in adult (HCC) Obstructive sleep apnea Obstructive sleep apnea (adult) (pediatric) documented in this encounter Discontinued Medications Medication Sig Discontinue Reason Start Date End Da te azithromycin (ZITHROMAX) 250 mg tabletIndications:Acu te lower respiratory infection Take 2 tabs (500 mg) by mouth today, than 1 daily for 4 days. Therapy completed 07/24/2021 08/20/2021 insulin lispro (HumaLOG) 100 unit/mL pen for injection USE FOLLOWS: 131-150 2 UNITS, 151-180 4 UNITS, 181-200 6 UNITS, 201-230 8 UNITS, 231-250 10 UNITS MAX DOSE 30 UNITS PER DAY Reorder 12/30/2020 08/20/2021 metFORMIN (GLUCOPHAGE) 500 mg tablet Take 1 tablet (500 mg total) by mouth 2 (two) times a day with meals Reorder 02/24/2021 08/20/2021 simvastatin (ZOCOR) 40 mg tablet Take 1 tablet (40 mg total) by mouth nightly Reorder 02/24/2021 08/20/2021 Xultophy 100/3.6 100 unit-3.6 mg /mL (3 mL) insulin pen penIndications: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) INJECT 50 UNITS SUBCUTANEOUSLY DAILY Reorder 04/19/2021 08/20/2021 metoprolol tartrate (LOPRESSOR) 50 mg immediate release tabletIndications:Hyp ertensive heart disease without heart failure,Coronary artery disease involving [place] coronary artery of [place] heart without angina pectoris TAKE 2 TABLETS BY MOUTH AT LUNCH AND 1 TABLET AT BEDTIME Reorder 05/19/2021 08/20/2021 acyclovir (ZOVIRAX) 400 mg tablet Take 1 tablet (400 mg total) by mouth 2 (two) times a day Reorder 05/24/2021 08/20/2021 dapagliflozin (Farxiga) 5 mg tabletIndications:Typ e 2 diabetes mellitus with circulatory disorder (HCC) Take 1 tablet (5 mg total) by mouth daily Reorder 07/27/2021 08/20/2021 finasteride (PROSCAR) 5 mg tabletIndications:Keith ign prostatic hyperplasia without lower urinary tract symptoms Take 1 tablet (5 mg total) by mouth daily Reorder 07/27/2021 08/20/2021 irbesartan-hydroCHLOR Othiazide (AVALIDE) 300-12.5 mg per tablet Take 1 tablet by mouth daily Reorder 07/27/2021 08/20/2021 documented as of this encounter Additional Health Concerns Infection Onset Date Last Indicated Resolved Time COVID: Recovered Comment:Added based on recent COVID infection. 08/03/2021 08/19/2021 12/01/2021 3:05 AM C DT documented as of this encounter Care Teams Senior Principal Relationship Specialty Start Date End Date Ronaldo Ulrich MD [address] [place] [address] PCP - General Internal Medicine 01/18/21 documented as of this encounter
--- OUTSIDE RECORDS SUMMARY | 2024-02-10 01:45 | XMS_ITS | Encounter Summary ---
Author Organization [facility] Address [address] [facility] [address] [place] [address] Care Team Providers Care Monkey Breeder Name Role Phone Ronaldo Ulrich MD Primary Care Provider + Encounter Details Date Type Department Care Team (Late st Contact Info) Description 09/02/[address] 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 * Telephone Encounter - Farrukh Jiménez MD - 09/06/2021 7:19 AM CDT Annual f/u is fine. Call if has trouble. Thx. * Telephone Encounter - Maryanne Beck - 09/02/2021 1:44 PM CDT Patient called to cancel appt Monday. He stated he just recently had stress test. When does he needto be seen in office. Will call Monday when he returns to advise on follow up documented in this encounter Plan of Treatment Not on file documented as of this encounter Visit Diagnoses Not on filedocumented in this encounter Additional Health Concerns Infection Onset Date Last Indicated Resolved Time COVID: Recovered Comment:Added based on recent COVID infection. 08/03/2021 08/19/2021 12/01/2021 3:05 AM C DT documented as of this encounter Care Teams Monkey Breeder Relationship Specialty Start Date End Date Ronaldo Ulrich MD [address] [place] [address] PCP - General Internal Medicine 01/18/21 documented as of this encounter
--- OUTSIDE RECORDS SUMMARY | 2024-02-10 01:45 | XMS_ITS | Encounter Summary ---
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 Would have him call the Dexcom livestock sales representative * Telephone Encounter - Kristyn Reynaga MA - 10/28/2021 2:21 PM CDT Glucometer is showing 260 * Telephone Encounter - Ronaldo Ulrich MD - 10/28/2021 12:04 PM CDT If the Dexcom reads low would have him verify it with his regular glucometer to see if it is accurate. * Telephone Encounter - Kristyn Reynaga MA - 10/28/2021 11:52 AM CDT Pt called in stating that he had changed his Dexcom yesterday and since then he has been having problems with his sugar being low but no symptoms of low blood sugar. Advised Pt to call manufacture due to it possibly being the device itself, but the Pt stated that he would like to monitor it until the end of the day. Pt states that the devise would say either Lo or 60-80, Pt has drank juice just in case but otherwise felt perfectly fine. documented in this encounter Plan of Treatment Not on file documented as of this encounter Visit Diagnoses Not on filedocumented in this encounter Additional Health Concerns Infection Onset Date Last Indicated Resolved Time COVID: Recovered Comment:Added based on recent COVID infection. 08/03/2021 08/19/2021 12/01/2021 3:05 AM C DT documented as of this encounter Care Teams Clinical Research Monitor Relationship Specialty Start Date End Date Ronaldo Ulrich MD [address] [place] [address] PCP - General Internal Medicine 01/18/21 documented as of this encounter
--- OUTSIDE RECORDS SUMMARY | 2024-02-10 01:46 | XMS_ITS | Encounter Summary ---
Author Organization [facility] Address [address] [facility] [address] [place] [address] Care Team Providers Care In Home Caregiver Name Role Phone Ronaldo Ulrich MD Primary Care Provider + Reason for Visit * Reason Onset Date Comments Covid-19 Home Monitoring 07/26/2021 Encounter Details Date Type Department Care Team (Late st Contact Info) Description 07/26/2021 Telephone [facility] Accountable Care Organization [address] [place] [address] Rosa Valdivia, [address] [place] [address] Covid-19 Home Monitoring Social History Tobacco Use [...] on file 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 Gender Identity Not on file Sexual Orientation Not on file 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 : No This patient has enrolled in the PHONE ONLY version of COVID-19 Home Monitoring Program. COVID-19 Symptom questionnaire was completed today. Symptoms were addressed to be Mild. Escalation was not needed. Next Program Call Due: 07/27 documented in this encounter Plan of Treatment Not on file documented as of this encounter Visit Diagnoses Not on filedocumented in this encounter Additional Health Concerns Infection Onset Date Last Indicated Resolved Time COVID19 07/24/2021 07/24/2021 08/03/2021 3:05 AM CDT documented as of this encounter Care Teams In Home Caregiver Relationship Specialty Start Date End Date Ronaldo Ulrich MD [address] [place] [address] PCP - General Internal Medicine 01/18/21 documented as of this encounter
--- OUTSIDE RECORDS SUMMARY | 2024-02-10 01:46 | XMS_ITS | Encounter Summary ---
Author Organization [facility] Address [address] [place] [address] [address] [place] [address] Care Team Providers Care Cell Changer Name Role Phone Ronaldo Ulrich MD Primary Care Provider + Reason for Visit * Reason Onset Date Comments Covid-19 Home Monitoring 07/27/2021 Daily c all Encounter Details Date Type Department Care Team (Late st Contact Info) Description 07/27/2021 Telephone [facility] Accountable Care Organization [address] [place] [address] Kori Farley, [address] [place] [address] Covid-19 Home Monitoring (Daily call) Social History Tobacco Use Types Packs/Day Years [...] on file 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 Gender Identity Not on file Sexual Orientation Not on file 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 : No This patient has enrolled in the PHONE ONLY version of COVID-19 Home Monitoring Program. COVID-19 Symptom questionnaire was completed today. Symptoms were addressed to be Mild. Escalation was not needed. Next Program Call Due: 07/28 Patient reports that he has some nasal drainage. documented in this encounter Plan of Treatment Not on file documented as of this encounter Visit Diagnoses Not on filedocumented in this encounter Additional Health Concerns Infection Onset Date Last Indicated Resolved Time COVID19 07/24/2021 07/24/2021 08/03/2021 3:05 AM CDT documented as of this encounter Care Teams Cell Changer Relationship Specialty Start Date End Date Ronaldo Ulrich MD [address] [place] [address] PCP - General Internal Medicine 01/18/21 documented as of this encounter
--- OUTSIDE RECORDS SUMMARY | 2024-02-10 01:46 | XMS_ITS | Encounter Summary ---
Author Organization [facility] Address [address] [facility] [address] [place] [address] Care Team Providers Care Chemical Manager Name Role Phone Ronaldo Ulrich MD Primary Care Provider + Encounter Details Date Type Department Care Team (Late st Contact Info) Description 07/26/[address] 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 * Telephone Encounter - Maryanne Beck - 07/26/2021 8:27 AM CDT ----- Message from Farrukh Jiménez MD sent at 07/22/2021 1:05 PM CDT ----- Please notify echo nl. Heart super strong, looks great. Thx. documented in this encounter Plan of Treatment Not on file documented as of this encounter Visit Diagnoses Not on filedocumented in this encounter Additional Health Concerns Infection Onset Date Last Indicated Resolved Time COVID19 07/24/2021 07/24/2021 08/03/2021 3:05 AM CDT documented as of this encounter Care Teams Chemical Manager Relationship Specialty Start Date End Date Ronaldo Ulrich MD [address] [place] [address] PCP - General Internal Medicine 01/18/21 documented as of this encounter
--- OUTSIDE RECORDS SUMMARY | 2024-02-10 01:47 | XMS_ITS | Encounter Summary ---
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 Stress ADA diet. Cholesterol looks okay R TEACHER documented in this encounter Plan of Treatment Not on file documented as of this encounter Visit Diagnoses Not on filedocumented in this encounter Care Teams Tube Pusher Relationship Specialty Start Date End Date Ronaldo Ulrich MD [address] [place] [address] PCP - General Internal Medicine 01/18/21 documented as of this encounter
--- OUTSIDE RECORDS SUMMARY | 2024-02-10 01:47 | XMS_ITS | Encounter Summary ---
Author Organization [facility] Address [address] [address] Care Team Providers Care Teacher Of The Emotionally Disturbed Name Role Phone Ronaldo Ulrich MD Primary Care Provider + Reason for Referral * Procedure (Routine) - Closed Specialty Diagnoses / Procedures Referred By Contac t Referred To Contact Diagnoses Acquired trigger finger of left ring finger Procedures Hand / Upper Extremity Arthrocentesis: L ring A1 Nuria Thapa PA [facility] [facility] [address] [place] [address] Phone: tel: fax: [facility] Referral ID Status Reason Start Date Expiration Date Visits Re quested Visits Authorized [id number] Closed 03/08/2021 04/07/2022 1 1 E FLEX DEVELOPER Reason for Visit * Reason Comments Trigger Finger * Consultation (Routine) - Closed Specialty Diagnoses / Procedures Referred By Contaida t Referred To Contact Orthopedic Surgery Diagnoses Acquired trigger finger of left ring finger Ronaldo Ulrich MD [address] [place] [address] Phone: tel: fax: Nuria Thapa PA [address] [facility] [address] [place] [address] Phone: tel: fax: Referral ID Status Reason Start Date Expiration Date V isits Requested Visits Authorized [id number] Closed Specialty Services Required 02/11/2021 03/13/2022 1 1 Encounter Details Date Type Department Care Team (Late st Contact Info) Description 03/08/2021 1:45 PM ADOBE FLEX DEVELOPER Office Visit [facility] Hand Surgery [facility] [address] [place] [phone] Nuria Thapa, PA [address] [facility] [address] [address] Acquired trigger finger of left ring finger Social History Tobacco Use [...] on file Legal Sex Male 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 Gender Identity Not on file Sexual Orientation Not on file 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 Not on file documented as of this encounter Last Filed Vital Signs Vital Sign Reading Time Taken Comments Blood Pressure - - Pulse - - Temperature - - Respiratory Rate - - Oxygen Saturation - - Inhaled Oxygen Concentration - - Weight 120.2 kg (265 lb) 03/08/2021 1:31 PM ADOBE FLEX DEVELOPER Height 177.8 cm (5' 10 ) 03/08/2021 1:31 PM ADOBE FLEX DEVELOPER Body Mass Index 38.02 03/08/2021 1:31 PM ADOBE FLEX DEVELOPER documented in this encounter Progress Notes * Nuria Thapa, OMARI - 03/08/2021 1:45 PM CSTAssociated Order(s): Hand / Upper Extremity Arthrocentesis: L ring A1 Post-Procedure Diagnose(s): Acquired trigger finger of left ring finger Images from the original note were not included. Patient ID: Ayden Santos is a 75 y.o. male. Visit Date: 03/08/2021 NEW PATIENT VISIT Chief Complaint: Chief Complaint Patient presents with ??? Left Ring Finger - Trigger Finger HPI: Patient is a 75-year-old male with a history of insulin-dependent diabetes who presents today with complaints of left ring finger pain. He reports over the last 2 months he has had increasing pain tothe base of the left ring finger, and that the finger will frequently become ???stuck?? in a flexed position. This seems to happen mostly at night, but can also occur intermittently throughout the day. He will frequently have to manually straighten the finger. He also complains of a painless bump to the palmar aspect of the left long finger. He states that this has been there for several months,and he feels that it is improved recently. He denies associated injury. He denies a family history of Dupuytren's. Allergies: Amlodipine and Royce inhibitors Past Medical History: Past Medical History: Diagnosis Date ??? Abnormal results of thyroid function studies 11/27/2018 ??? Diabetes mellitus (HCC) ??? Elevated PSA ??? Hyperlipidemia ??? PETE on CPAP ??? Personal history of other medical treatment Pt. reports he has had Covid booster ??? Sleep apnea Past Surgical History: Past Surgical History: Procedure Laterality Date ??? COLONOSCOPY 01/19/2021 ??? CYSTOSCOPY ??? HEMORRHOID SURGERY 11/28/2018 ??? PROSTATE BIOPSY 2006 Elevated PSA: survellience biopsy ??? TONSILLECTOMY Social History: Social History Occupational History ??? 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 Smoking status: Former Smoker Packs/day: 1.00 Years: 35.00 Pack years: 35.00 Types: Cigarettes Quit date: 1982 Years since quittin.0 ??? Smokeless tobacco: Never Used ??? Tobacco comment: Smoking History Packs/day: 1 Packs Vaping Use ??? Vaping Use: Never used Substance and Sexual Activity ??? Alcohol use: Yes ??? Drug use: Never ??? Sexual activity: Never ROS: Constitutional: Negative for fever, weight loss. Respiratory: Negative for cough, sob or wheezing. Cardiac: negative for CP or palpitations. Gastrointestinal: Negative for abdominal pain, n/v/d. Neurological: Negative for speech difficulty, motor weakness. Hematological: Negative for bruising, bleeding. Lymph: negative for swollen glands Physical Exam: General: A&O x 3, NAD, Well appearing Eyes: EOMs intact. PERRL. Integument: skin is warm and dry. Neuro: CN II-XII grossly intact. Pt gait is stable, balance WNL. Sensation intact. Cardiovascular: 2+ capillary refill to all upper digits bilaterally. On examination of the right hand there is mild edema noted to the palmar base of the left ring finger, and he has moderate tenderness with palpation over the level of the A1 bridgette. There is no active triggering noted today. Over the level of the palmar left long finger is a pretendinous fibrotic area of approximately 2 cm which does not extend to the MCP. There is no associated contracture of the long finger. X-rays/Imaging: Treatment / Plan: Today I discussed with the patient both the diagnosis of trigger finger, and Dupuytren's. With regard to his trigger finger, we did discuss treatment options to include splint wear, corticosteroid injection and surgical release. At today's visit he would like to try a corticosteroid injection, and I did caution him that this may cause elevation of his blood sugar over the next several days. He understands this and wishes to proceed. I also fit him today with a size 11 oval 8 splint that he may wear at bedtime over the next several days to see if this helps with his triggering. We did also discuss his Dupuytren's, and I have informed him that this time there is nothing that warrants further intervention is he has no associated contracture. I have asked him to call the office should he havepersistence or recurrence of his symptoms at 2-3 weeks after today's injection, otherwise I have asked him to call the office with any other questions or concerns. Hand / Upper Extremity Arthrocentesis: L ring A1 Performed by: Nuria Thapa, PA Authorized by: Nuria Thapa PA Hand/Upper Extremity Injection: Consent Given by: Patient Site marked: the procedure site was marked Timeout: prior to procedure the correct patient, procedure, and site was verified Verbal consent obtained?: Yes Written consent obtained?: No Supporting Documentation: Indications: Pain Procedure Details: Condition: trigger finger Location: Ring finger Site: L ring A1 Prep: patient was prepped and draped in usual sterile fashion Prep: patient was prepped using a clean technique Needle Size: 27 G Approach: Volar Ultrasound guidance: No Medications: 1 mL lidocaine 10 mg/mL (1 %); 10 mg triamcinolone 40 mg/mL OMARI Chapin E FLEX DEVELOPER documented in this encounter Plan of Treatment Not on file documented as of this encounter Procedures Procedure Name Priority Date/Time Associated Diagnosis Comments [place] INJECTION 1 TENDON SHEATH/LIGAMENT APONEUROSIS Routine 03/08/2021 1:45 PM ADOBE FLEX DEVELOPER Acquired trigger finger of left ring finger documented in this encounter Results * AZ INJECTION 1 TENDON SHEATH/LIGAMENT APONEUROSIS (03/08/2021 1:45 PM ADOBE FLEX DEVELOPER) Narrative Nuria Thapa PA - 03/08/2021 1:45 PM ADOBE FLEX DEVELOPER Nuria Thapa PA ? 03/08/2021 ??2:11 PM Hand / Upper Extremity Arthrocentesis: L ring A1 Performed by: Nuria Thapa PA Authorized by: Nuria Thapa PA Hand/Upper Extremity Injection: ??Consent Given by: ??Patient ??Site marked: the procedure site was marked ?Timeout: prior to procedure the correct patient, procedure, and site was verified ?Verbal consent obtained?: Yes ?Written consent obtained?: No ?? Supporting Documentation: ??Indications: ??Pain Procedure Details: ??Condition: trigger finger ?Location: ??Ring finger ??Site: ??L ring A1 ??Prep: patient was prepped and draped in usual sterile fashion ?Prep: patient was prepped using a clean technique ?Needle Size: ??27 G ??Approach: ??Volar ??Ultrasound guidance: No ?Medications: ??1 mL lidocaine 10 mg/mL (1 %); 10 mg triamcinolone 40 mg/mL us Nuria SALCIDO IN CLINIC/BEDSIDE ORDERABLES F inal Result documented in this encounter Visit Diagnoses Diagnosis Acquired trigger finger of left ring finger documented in this encounter Administered Medications Inactive Administered Medications - up to 3 most recent administrations Medication Order MAR Action Action Date Dose Rate Site lidocaine (XYLOCAINE) 10 mg/mL (1 %) injection 1 mL 1 mL, One-Time Injection, Starting on Mon03/08/21 at 1411, For 1 dose, Indications: Administration of Local AnesthesiaIndications:Administratio n of Local Anesthesia Given 03/08/2021 2:11 PM ADOBE FLEX DEVELOPER 1 mL triamcinolone (KENALOG) 40 mg/mL injection 10 mg 10 mg, intra-articular, One-Time Injection, Starting on Mon03/08/21 at 1411, For 1 doseIndications:Acquired trigger finger of left ring finger Given 03/08/2021 2:11 PM ADOBE FLEX DEVELOPER 10 mg documented in this encounter Orders Outpatient Referral Count Last Ordered Date Fir st Ordered Date AMB REFERRAL TO ORTHOPEDIC SURGERY 1 2021 documented in this encounter Care Teams Teacher Of The Emotionally Disturbed Relationship Specialty Start Date End Date Ronaldo Ulrich MD [address] [place] [address] PCP - General Internal Medicine 01/18/21 documented as of this encounter
--- OUTSIDE RECORDS SUMMARY | 2024-02-10 01:47 | XMS_ITS | Encounter Summary ---
Author Organization [facility] Address [address] [address] Care Team Providers Care Stack Clerk Name Role Phone Ronaldo Ulrich MD Primary Care Provider + Reason for Visit * Reason Comments URI Cough, congestion, h ome covid test negative, sore throat, drainage symptoms for 5 days. 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 Not on file documented as of this encounter Last Filed Vital Signs Vital Sign Reading Time Taken Comments Blood Pressure 123/81 07/24/2021 8:34 AM CDT Pulse 79 07/24/2021 8:34 AM CDT Temperature 36.9 ??C (98.5 ??F) 07/24/2021 8:34 AM CD T Respiratory Rate 20 07/24/2021 8:34 AM CDT Oxygen Saturation 97% 07/24/2021 8:54 AM CDT Inhaled Oxygen Concentration - - Weight 120.2 kg (265 lb) 07/24/2021 8:34 AM CDT Height 179.1 cm (5' 10.5 ) 07/24/2021 8:34 AM CD T Body Mass Index 37.49 07/24/2021 8:34 AM CDT documented in this encounter Patient Instructions * Patient Instructions* Darius Hallman NP - 07/24/2021 8:55 AM CDT MUCINEX PER PACKAGE DIRECTIONS * Attachments The following attachments cannot be sent through Care Everywhere. * Upper Respiratory Infection (Senior Writer) (Qatari) documented in this encounter Ordered Prescriptions Prescription Sig Dispense Quantity Refills Last Filled Start Date End Date azithromycin (ZITHROMAX) 250 mg tabletIndications:A cute lower respiratory infection Take 2 tabs (500 mg) by mouth today, than 1 daily for 4 days. 6 tablet 07/24/2021 08/20/2021 documented in this encounter Progress Notes * Darius Hallman NP - 07/24/2021 8:30 AM CDT Images from the original note were not included. Subjective/Objective Patient ID: Ayden Santos is a 75 y.o. male. Chief Complaint URI (Cough, congestion, home covid test negative, sore throat, drainage symptoms for 5 days. ) Patient states that he typically gets bronchitis once a year and his primary usually gives him a Z-Fortunato which works for him. And patient states this feels like when he normally gets bronchitis. Patient requesting Z-Fortunato today. URI This is a new problem. Episode onset: 5 days ago. The problem has been unchanged. There has been nofever. Associated symptoms include congestion, coughing, rhinorrhea, sneezing, a sore throat and wheezing. Pertinent negatives include no abdominal pain, chest pain, diarrhea, ear pain, headaches, nausea, neck pain, rash, shortness of breath, sinus pain or vomiting. He has tried nothing for the symptoms. Review of Systems Constitutional: Negative for appetite change, chills, diaphoresis, fatigue and fever. HENT: Positive for congestion, postnasal drip, rhinorrhea, sneezing and sore throat. Negative for ear discharge, ear pain, sinus pressure and sinus pain. Respiratory: Positive for cough and wheezing. Negative for chest tightness and shortness of breath. Cardiovascular: Negative for chest pain. Gastrointestinal: Negative for abdominal pain, diarrhea, nausea and vomiting. Musculoskeletal: Negative for myalgias, neck pain and neck stiffness. Skin: Negative for rash. Neurological: Negative for dizziness and headaches. Hematological: Negative for adenopathy. Physical Exam Vitals and nursing note reviewed. Constitutional: General: He is awake. He is not in acute distress. Appearance: Normal appearance. HENT: Head: Normocephalic and atraumatic. Right Ear: Tympanic membrane and ear canal normal. Left Ear: Tympanic membrane and ear canal normal. Nose: No congestion or rhinorrhea. Right Sinus: No maxillary sinus tenderness or frontal sinus tenderness. Left Sinus: No maxillary sinus tenderness or frontal sinus tenderness. Mouth/Throat: Lips: [place]. Mouth: Mucous membranes are moist. Tongue: Tongue does not deviate from midline. Pharynx: Uvula midline. No pharyngeal swelling, oropharyngeal exudate, posterior oropharyngeal erythema or uvula swelling. Tonsils: No tonsillar exudate or tonsillar abscesses. Eyes: General: Lids are normal. Pupils: Pupils are equal, round, and reactive to light. Cardiovascular: Rate and Rhythm: Normal rate and regular rhythm. Pulses: Normal pulses. Heart sounds: Normal heart sounds. Pulmonary: Effort: Pulmonary effort is normal. No respiratory distress. Breath sounds: Normal breath sounds. No decreased breath sounds, wheezing, rhonchi or rales. Comments: Nonproductive cough noted on exam Musculoskeletal: Cervical back: Full passive range of motion without pain, normal range of motion and neck supple. Lymphadenopathy: Cervical: No cervical adenopathy. Skin: General: Skin is warm and dry. Neurological: Mental Status: He is alert and oriented to person, place, and time. Gait: Gait normal. Psychiatric: Behavior: Behavior is cooperative. Vitals: 07/24/21 0834 07/24/21 0854 BP: 123/81 Pulse: 79 Resp: 20 Temp: 36.9 ??C (98.5 ??F) TempSrc: Oral SpO2: 94% 97% Weight: 120.2 kg (265 lb) Height: 179.1 cm (5' 10.5 ) No exam data present Past Medical History: Diagnosis Date ??? Abnormal results of thyroid function studies 11/27/2018 ??? Diabetes mellitus (HCC) ??? Elevated PSA ??? Hyperlipidemia ??? PETE on CPAP ??? Personal history of other medical treatment Pt. reports he has had Covid booster ??? Sleep apnea Current Outpatient Medications: ??? acyclovir (ZOVIRAX) 400 mg tablet, Take 1 tablet (400 mg total) by mouth 2 (two) times a day, Disp: 180 tablet, Rfl: 1 ??? blood glucose diagnostic (ONETOUCH VERIO) strip, smbg bid ac, Disp: 100 each, Rfl: 11 ??? cholecalciferol (VITAMIN D-3) 2,000 unit capsule, Take 2,000 Units by mouth daily, Disp: , Rfl: ??? coenzyme Q10 (COQ-10) 100 mg capsule, take 3 by Oral route every evening, Disp: 0, Rfl: 0 ??? dapagliflozin (FARXIGA) 5 mg tablet, Take 1 tablet (5 mg total) by mouth daily, Disp: 90 tablet, Rfl: 1 ??? docusate sodium (COLACE) 100 mg capsule, Take 100 mg by mouth daily, Disp: , Rfl: ??? finasteride (PROSCAR) 5 mg tablet, TAKE 1 TABLET BY MOUTH DAILY, Disp: 90 tablet, Rfl: 1 ??? flash glucose sensor (FreeStyle Erick 2 Sensor) kit, Change sensor every two weeks., Disp: 3 kit, Rfl: 3 ??? insulin lispro (HumaLOG) 100 unit/mL pen for injection, USE FOLLOWS: 131- 150 2 UNITS, 151-180 4 UNITS, 181-200 6 UNITS, 201-230 8 UNITS, 231-250 10 UNITS MAX DOSE 30 UNITS PER DAY, Disp: 30 mL, Rfl: 1 ??? irbesartan-hydroCHLOROthiazide (AVALIDE) 300-12.5 mg per tablet, TAKE 1 TABLET BY MOUTH DAILY, Disp: 90 tablet, Rfl: 1 ??? metFORMIN (GLUCOPHAGE) 500 mg tablet, Take 1 tablet (500 mg total) by mouth 2 (two) times a daywith meals, Disp: 180 tablet, Rfl: 1 ??? metoprolol tartrate (LOPRESSOR) 50 mg immediate release tablet, TAKE 2 TABLETS BY MOUTH AT LUNCH AND 1 TABLET AT BEDTIME, Disp: 270 tablet, Rfl: 1 ??? miscellaneous medical supply misc, C-Pap, Disp: , Rfl: ??? simvastatin (ZOCOR) 40 mg tablet, Take 1 tablet (40 mg total) by mouth nightly, Disp: 90 tablet, Rfl: 1 ??? vit C,E-Rc-edjrm-lutein-zeaxan 250-90-40-1 mg capsule, Take 1 capsule by mouth daily, Disp: , Rfl: ??? vitamin B complex capsule, Take 1 capsule by mouth daily, Disp: , Rfl: ??? Xultophy 100/3.6 100 unit-3.6 mg /mL (3 mL) insulin pen pen, INJECT 50 UNITS SUBCUTANEOUSLY DAILY, Disp: 45 mL, Rfl: 1 ??? albuterol HFA (ProAir HFA) 90 mcg/actuation inhaler, Inhale 2 puffs every 4 (four) hours as needed for wheezing or shortness of breath for up to 15 days, Disp: 8.5 g, Rfl: 0 ??? aspirin 81 mg chewable tablet, Take 1 tablet (81 mg total) by mouth daily, Disp: 30 tablet, Rfl: 11 ??? azithromycin (ZITHROMAX) 250 mg tablet, Take 2 tabs (500 mg) by mouth today, than 1 daily for 4days., Disp: 6 tablet, Rfl: 0 ??? gabapentin (NEURONTIN) 100 mg capsule, gabapentin 100 mg capsule, Disp: , Rfl: Allergies Allergen Reactions ??? Amlodipine Edema ??? Royce Inhibitors Cough Social History Socioeconomic History ??? Marital status: Spouse name: Donny ??? Number of children: 2 ??? Years of education: 20 Tobacco Use ??? Smoking status: Former Smoker Packs/day: 1.00 Years: 35.00 Pack years: 35.00 Types: Cigarettes Quit date: 1982 Years since quittin.4 ??? Smokeless tobacco: Never Used ??? Tobacco comment: Smoking History Packs/day: 1 Packs Vaping Use ??? Vaping Use: Never used Substance and Sexual Activity ??? Alcohol use: Yes ??? Drug use: Never ??? Sexual activity: Never Social History Narrative Agrees to blood/blood products: Y Agrees to blood/blood products: Y Past Surgical History: Procedure Laterality Date ??? COLONOSCOPY 01/19/2021 ??? CYSTOSCOPY ??? HEMORRHOID SURGERY 11/28/2018 ??? PROSTATE BIOPSY 2006 Elevated PSA: survellience biopsy ??? TONSILLECTOMY Assessment/Plan Diagnoses and all orders for this visit: Acute nasopharyngitis (Primary) - Influenza A/B, RSV, and COVID-19 PCR Nasopharyngeal; Future Acute lower respiratory infection - Influenza A/B, RSV, and COVID-19 PCR Nasopharyngeal; Future - azithromycin (ZITHROMAX) 250 mg tablet; Take 2 tabs (500 mg) by mouth today, than 1 daily for 4 days. -discussed in detail with patient viral versus bacterial infections in the treatment for both. Advised that azithromycin will not work on viral infections. Patient adamant that he wants a Z-Fortunato today. -Viral infections do not improve with antibiotics. -Viral symptoms can linger from 7-14 days -The color of discharge does not always reflect the need for an antibiotic, even during a viral illness it is normal for drainage to change from yellow to green at times. -Please refer to the CDC Get Smart (cdc.gov/getsmart) campaign for more details. No results found for this or any previous visit (from the past 4 hour(s)). Patient Education: -You may try: ??? Nasal saline wash, either Neti Pot or Sinus Rinse DAILY or a saline nasal spray 3-4 times a day. ??? Guaifenesin expectorants (Maximum Strength Mucinex, Robitussin, store brand) to loosen secretions. ??? For cough you can use dextromethorphan (Delsym syrup, Robitussin cough capsules or store brand). Dextromethorphan is considered safe for and breast feeding women. ??? You may try decongestants such as Sudafed (purchase at pharmacy) or Sudafed PE for congestion relief. Decongestants can keep you awake at night. Do not use decongestants if you have high blood pressure or if you are . If you have high blood pressure you can take otc Coricidin per package directions -Increase fluid intake: drink 2 liters (2 quarts) of non-caffeinated, non- alcoholic beverages daily, drinking alcohol causes nasal and sinus membranes to swell -Steam inhalation and warm compress to face often help relieve pressure -Avoid allergens and excessively dry heat -Sleep with head of bed elevated to encourage drainage. -Use of a humidifier if environment is heated by dry forced - air system -Avoid smoking, second-hand smoke and air pollutants. -If you are not improving or worsening, or develop facial swelling, in the next 5-7 days you must RETURN to the clinic, go to your PCP, or Urgent Care/ER to be SEEN and reevaluated. No further prescriptions or refills will be given by phone without another evaluation. Disposition ??? Treatment plan including expectations, follow up, and return precautions discussed with patient/parent, verbalizes understanding. ??? Medication dosage, use, and potential adverse reactions discussed with patient/parent. ??? Advised to follow up with PCP if symptoms do not resolve as expected or sooner if condition worsens. ??? Signs/symptoms warranting ER evaluation reviewed. ??? Patient and/or guardian was given an opportunity to ask questions, questions answered. Darius Hallman NP documented in this encounter Miscellaneous Notes * Result Encounter Note - Darius Hallman NP - 07/24/2021 7:15 PM CDT Pt notified patient of positive covid-19 test. If he/she develops increased shortness of breath or worsening symptoms, he/she should go to the ER. Patient should isolate for a minimum of 5 days from symptoms onset, and symptoms must be improving, and pt should be fever free for at least 24 hours prior to ending quarantine/isolation. Then if out of quarantine prior to 10 days, pt should continue to wear a mask around people for an additional 5 days. Patient should notify individuals they may have had contact with while ill and 2 days prior to symptoms onset. documented in this encounter Plan of Treatment Not on file documented as of this encounter Procedures Procedure Name Priority Date/Time Associated Diagnosis Comments INFLUENZA A/B, RSV, AND COVID-19 PCR Routine 07/24/2021 8:39 AM CDT documented in this encounter Results * (ABNORMAL) Influenza A/B, RSV, and COVID-19 PCR Nasopharyngeal (07/24/2021 8:39 AM CDT) COVID-19 RNA Positive(A) Negative [facility] Influenza A RNA Negative Negative [facility] Influenza B RNA Negative Negative [facility] RSV RNA Negative Negative [facility] Comment: Interpretive data: This test is performed using the [employer] Xpert Xpress CoV-2/Flu/RSV plus assay. This is a multiplex, real-time reverse transcriptase PCR assay intended for the qualitative detection of nucleic acid from SARS-CoV-2, influenza A, influenza B, and respiratory syncytial virus. This assay has been reviewed by the FDA for Emergency Use Authorization (EUA). The performance characteristics have been verified by the performing laboratory. Results must be considered in the clinical context, and a negative result does not rule out infection. Interpretive Data last revised 2021. Nasopharyngeal 07/24/2021 8: 39 AM CDT 07/24/2021 5:47 PM CDT Darius Hallman NP LAB MICROBIOLOGY - GENERAL [facility] Final Result [facility] [address] [place] [address] documented in this encounter Visit Diagnoses Diagnosis Acute nasopharyngitis- Primary Acute nasopharyngitis (common cold) Acute lower respiratory infection documented in this encounter Historical Medications * This list may reflect changes made after this encounter. gabapentin (NEURONTIN) 100 mg capsule gabapentin 100 mg capsule 3 added in this encounter Additional Health Concerns Infection Onset Date Last Indicated Resolved Time COVID: Suspected 07/24/2021 07/24/2021 07/24/2021 7:01 PM CDT documented as of this encounter Care Teams Stack Clerk Relationship Specialty Start Date End Date Ronaldo Ulrich MD [address] [place] [address] PCP - General Internal Medicine 01/18/21 documented as of this encounter
--- OUTSIDE RECORDS SUMMARY | 2024-02-10 01:47 | XMS_ITS | Encounter Summary ---
Author Organization [facility] Address [address] [place] [address] Care Team Providers Care Medical Accountant Name Role Phone Ronaldo Ulrich MD Primary Care Provider + Reason for Visit * Reason Onset Date Comments upper chest pain 05/12/2021 Encounter Details Date Type Department Care Team (Late st Contact Info) Description 05/12/2021 Telephone [facility] Cardiology [address] [place] [address] Farrukh Jiménez MD [address] [place] [address] [address] [place] [address] upper chest pain Social History Tobacco Use Types Packs/Day Years [...] on file 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 * Telephone Encounter - Farrukh Jiménez MD - 05/12/2021 12:11 PM CDT If able to do tradmill please get echo/stress echo. If not, then do echo/lexiscan. Thx. * Telephone Encounter - Yenifer Jimenez - 05/12/2021 12:03 PM CDT Pt states he is having some mild upper chest pains on an off been happening for about 3 months. States they are not going away. No SOB, no lightheadedness, no swelling. Taking all current medicationswith no recent medication changes. Pt would like to come in for possible testing to make sure everything is okay. Please advise documented in this encounter Plan of Treatment Not on file documented as of this encounter Visit Diagnoses Diagnosis Hypertensive heart disease without heart failure- Primary Unspecified hypertensive heart disease without heart failure Atherosclerosis of aorta (HCC) Atherosclerosis of aorta documented in this encounter Care Teams Medical Accountant Relationship Specialty Start Date End Date Ronaldo Ulrich MD [address] [place] [address] PCP - General Internal Medicine 01/18/21 documented as of this encounter
--- OUTSIDE RECORDS SUMMARY | 2024-02-10 01:47 | XMS_ITS | Encounter Summary ---
Author Organization [facility] Address [address] [facility] [address] [place] [address] Care Team Providers Care Woven Blind Loom Tender Name Role Phone Unknown, Notinfile Primary Care Provider Unavail able Ronaldo Ulrich MD Primary Care Provider + Reason for Visit * Reason Onset Date Comments Medical Question/Miscellaneous 12/31/2020 Encounter Details Date Type Department Care Team (Late st Contact Info) Description 12/31/2020 Telephone [facility] [address] [place] [id number] Rickey Do MD [address] [place] [place] [address] Medical Question/Miscellaneous Social History Tobacco Use Types Packs/Day Years Used Date Smoking Tobacco: Former Cigarettes 1 35 Smokeless Tobacco: Never Comments:Smoking History Pac ks/day: 1 Packs Alcohol Use Standard Drinks/Week Comments Yes 0 (1 standard drink = 0.6 oz pur e alcohol) AUDIT-C Answer Date Recorded Q1: How often do you have a drink containing alc ohol? Never 01/21/2021 Q2: How many drinks containi ng alcohol do you have on a typical day when you are drinking? 1 or 2 01/21/2021 Q3: How often do you have six or more drinks on one occasion? 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 Do patient says he's now a patient of Dr. Ulrich and was unaware of a 12.21.20 New Pt appointment with Dr. Strange. Asking that chart be updated to remove Dr. Strange as PCP. Done. Caller???s Call back #: [phone] Does message need to be routed?No UAL ASSISTANT documented in this encounter Plan of Treatment Not on file documented as of this encounter Visit Diagnoses Not on filedocumented in this encounter Care Teams Woven Blind Loom Tender Relationship Specialty Start Date End Date Unknown, Notinfile PCP - General 12/31/20 01/17/21 Ronaldo Ulrich MD [address] [place] [address] PCP - General Internal Medicine 01/18/21 documented as of this encounter
--- OUTSIDE RECORDS SUMMARY | 2024-02-10 01:47 | XMS_ITS | Encounter Summary ---
Author Organization [facility] Healthcare Address [address] [place] [address] Care Team Providers Care Spot Facer Name Role Phone Ronaldo Ulrich MD Primary Care Provider + Encounter Details Date Type Department Care Team (Late st Contact Info) Description 01/19/2021 11:[address] SUPERVISOR - 01/19/2021 11:45 [address] SUPERVISOR Surgery [facility] Endoscopy [address] [place] [address] Carson Roberts MD PhD [facility] DALEArpita Greg [address] [place] [address] COLON REMOVAL SNARE Surgery Details Date/Time Status Location OR Service Patient Class Case Class Case Type Trauma Case? 01/19/2021 11:00 AM Posted [facility] ENDOSCOPY Endo 02 Gastroenterology Outpatient Elective Panel 1 Procedure LRB Anes Op Region Wound Class Comments COLON REMOVAL SNARE N/A Choice Colon N/A Surgeon Surgeon Role Service Panel Carson Roberts MD PhD Primary Gastroenterology 1 documented in this encounter Social History Tobacco Use Types Packs/Day Years Used Date Smoking Tobacco: Former Cigarettes 1 35 1 948 - 1982 Smokeless Tobacco: Never Comments:Smoking History Pac ks/day: 1 Packs Alcohol Use Standard Drinks/Week Comments Yes 0 (1 standard drink = 0.6 oz pur e alcohol) AUDIT-C Answer Date Recorded Q1: How often do you have a drink containing alc ohol? Monthly or less 01/19/2021 Q2: How many drinks containi ng alcohol do you have on a typical day when you are drinking? 1 or 2 01/19/2021 Q3: How often do you have si x or more drinks on one occasion? 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 Not on file documented as of this encounter Last Filed Vital Signs Vital Sign Reading Time Taken Comments Blood Pressure 170/76 01/19/2021 11:35 AM [address] SUPERVISOR Pulse 85 01/19/2021 11:35 AM [address] SUPERVISOR Temperature 36.3 ??C (97.3 ??F) 01/19/2021 9:45 AM CS T Respiratory Rate 21 01/19/2021 11:35 AM [address] SUPERVISOR Oxygen Saturation 93% 01/19/2021 11:35 AM [address] SUPERVISOR Inhaled Oxygen Concentration - - Weight 121.6 kg (268 lb) 01/19/2021 9:45 AM [address] SUPERVISOR Height 180.3 cm (5' 11 ) 01/19/2021 9:45 AM [address] SUPERVISOR Body Mass Index 37.38 01/19/2021 9:45 AM [address] SUPERVISOR documented in this encounter Discharge Instructions * Attachments The following attachments cannot be sent through Care Everywhere. * Procedural Sedation (AfterCare(R) Instructions(ER/ED)) (Russian) documented in this encounter Medications at Time of Discharge aspirin 81 mg chewable tablet Take 1 tablet (81 mg total) by mouth daily 30 tablet 11 04/20/2020 blood glucose diagnostic (ONETOUCH VERIO) strip smbg bid ac 100 each 11 11/21/2018 cholecalciferol (VITAMIN D-3) 2,000 unit capsule Take 1 capsule (2,000 Units total) by mouth daily coenzyme Q10 (COQ-10) 100 mg capsule take 3 by Oral route every evening 0 0 04/11/2016 flash glucose sensor (FreeStyle Erick 2 Sensor) kitIndications:t ype 2 diabetes mellitus Change sensor every two weeks. 3 kit 3 05/08/2020 [facility] C-Pap vit C,X-Bw-bomow-lut ein-zeaxan 250-90-40-1 mg capsule Take 1 capsule by mouth daily vitamin B complex capsule Take 1 capsule by mouth daily acyclovir (ZOVIRAX) 400 mg tablet Take 1 tablet (400 mg total) by mouth 2 (two) times a day 180 tablet 12/11/2020 03/29/19 22 docusate sodium (COLACE) 100 mg capsuleIndicatio ns:constipation Take 1 capsule (100 mg total) by mouth daily 03/22/19 24 finasteride (PROSCAR) 5 mg tabletIndication s:Benign prostatic hyperplasia without lower urinary tract symptoms Take 1 tablet (5 mg total) by mouth daily 90 tablet 1 11/09/2020 06/30/19 22 insulin lispro (HumaLOG) 100 unit/mL pen for injection USE FOLLOWS: 131-150 2 UNITS, 151-180 4 UNITS, 181-200 6 UNITS, 201-230 8 UNITS, 231-250 10 UNITS MAX DOSE 30 UNITS PER DAY 30 mL 1 12/30/2020 08/21/19 22 irbesartan-hydro CHLOROthiazide (AVALIDE) 300-12.5 mg per tablet TAKE 1 TABLET BY MOUTH DAILY 90 tablet 3 08/07/2020 02/24/19 22 metFORMIN (GLUCOPHAGE) 500 mg tablet Take 1 tablet (500 mg total) by mouth 2 (two) times a day with meals 180 tablet 3 09/17/2020 02/24/19 22 metoprolol tartrate (LOPRESSOR) 50 mg immediate release tabletIndication s:Hypertensive heart disease without heart failure,Coronary artery disease involving [place] coronary artery of p[place]enta heart without angina pectoris TAKE 2 TABLETS BY MOUTH AT LUNCH AND 1 TABLET AT BEDTIME 270 tablet 1 11/09/2020 05/20/19 22 simvastatin (ZOCOR) 40 mg tablet TAKE 1 TABLET BY MOUTH AT NIGHT 90 tablet 3 05/14/2020 02/24/19 22 Xultophy 100/3.6 100 unit-3.6 mg /mL (3 mL) insulin pen penIndications: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 male who is here for Procedure(s): COLONOSCOPY The indication(s) for the procedure(s): Surveillance colonoscopy with history of polyps. No GI symptoms. No family history of colon cancer. Last colonoscopy: 3 years ago. . Past Medical History: Diagnosis Date ??? Abnormal results of thyroid function studies 11/27/2018 ??? Diabetes mellitus (HCC) ??? Elevated PSA ??? Hyperlipidemia ??? PETE on CPAP ??? Personal history of other medical treatment Pt. reports he has had Covid booster ??? Sleep apnea Past Surgical History: Procedure Laterality Date ??? CYSTOSCOPY ??? HEMORRHOID SURGERY 11/28/2018 ??? PROSTATE BIOPSY 2006 Elevated PSA: survellience biopsy ??? TONSILLECTOMY Social History Tobacco Use ??? Smoking status: Former Smoker Packs/day: 1.00 Years: 35.00 Pack years: 35.00 Types: Cigarettes Quit date: 1982 Years since quittin.9 ??? Smokeless tobacco: Never Used ??? Tobacco comment: Smoking History Packs/day: 1 Packs Substance Use Topics ??? Alcohol use: Yes Family History Problem Relation Age of Onset ??? Coronary artery disease Father Coronary artery disease; ??? Alzheimer's disease Mother ??? Heart attack Paternal Grandmother ??? Colon cancer Paternal Grandfather Amlodipine, Royce inhibitors, and Farxiga [dapagliflozin] Prior to Admission medications Medication Sig Start Date End Date Taking? Authorizing Provider acyclovir (ZOVIRAX) 400 mg tablet Take 1 tablet (400 mg total) by mouth 2 (two) times a day 12/11/20 Yes Ronaldo Ulrich MD aspirin 81 mg chewable tablet Take 1 tablet (81 mg total) by mouth daily 04/20/20 04/20/21 Yes An Soto NP cholecalciferol (VITAMIN D-3) 2,000 unit capsule Take 2,000 Units by mouth daily Yes Migue Coy MD coenzyme Q10 (COQ-10) 100 mg capsule take 3 by Oral route every evening 04/11/16 Yes Farrukh Jiménez MD docusate sodium (COLACE) 100 mg capsule Take 100 mg by mouth daily Yes Migue Coy MD finasteride (PROSCAR) 5 mg tablet Take 1 tablet (5 mg total) by mouth daily 11/09/20 Yes Ronaldo Ulrich MD insulin lispro (HumaLOG) 100 unit/mL pen for injection USE FOLLOWS: 131-150 2 UNITS, 151-180 4 UNITS, 181-200 6 UNITS, 201-230 8 UNITS, 231-250 10 UNITS MAX DOSE 30 UNITS PER DAY 12/30/20 Yes Ronaldo Ulrich MD irbesartan-hydroCHLOROthiazide (AVALIDE) 300-12.5 mg per tablet TAKE 1 TABLET BY MOUTH DAILY 08/07/20 Yes Rickey Do MD metFORMIN (GLUCOPHAGE) 500 mg tablet Take 1 tablet (500 mg total) by mouth 2 (two) times a day withmeals 09/17/20 09/17/21 Yes An Soto NP metoprolol tartrate (LOPRESSOR) 50 mg immediate release tablet TAKE 2 TABLETS BY MOUTH AT LUNCH AND1 TABLET AT BEDTIME 11/09/20 Yes Ronaldo Ulrich MD polyethylene glycol (GoLYTELY) 236-22.74-6.74 -5.86 gram solution Please follow instructions mailedfrom our office for your colonoscopy prep 11/25/20 Yes Carson Roberts MD PhD simvastatin (ZOCOR) 40 mg tablet TAKE 1 TABLET BY MOUTH AT NIGHT 05/14/20 Yes Rickey Do MD vit C,P-Sf-mtjxg-lutein-zeaxan 250-90-40-1 mg capsule Take 1 capsule by mouth daily Yes Migue Coy MD vitamin B complex capsule Take 1 capsule by mouth daily Yes Migue Coy MD blood glucose diagnostic (ONETOUCH VERIO) strip smbg bid ac 11/21/18 Xena Jaimes NP flash glucose sensor (FreeStyle Erick 2 Sensor) kit Change sensor every two weeks. 05/08/20 An Soto NP miscellaneous medical supply [facility] C-Pap Provider, Migue, MD Sterling 100/3.6 100 unit-3.6 mg /mL (3 mL) insulin pen pen INJECT 50 UNITS SUBCUTANEOUSLY DAILY 01/18/21 Ronaldo Ulrich MD Review of Systems A pertinent, focused review of systems was completed and negative, except as noted above. OBJECTIVE: Vitals: Vitals: 01/19/21 1050 01/19/21 1105 01/19/21 1120 01/19/21 1135 BP: 160/72 (!) 180/80 (!) 175/78 170/76 Pulse: 79 79 81 85 Resp: 15 21 Temp: SpO2: 98% 95% 94% 93% Weight: Height: Physical Exam: Airway: No significant abnormality. Cardiac: No significant abnormality. Pulmonary: No significant abnormality. Neurological: No significant abnormality. Gastrointestinal: No significant abnormality. ASA Score: per Anesthesia Sedation/Anesthesia Plan: per Anesthesia The risks and complications of the procedure have been explained to the patient. Informed consent was signed. Impression and plan: Will proceed with the planned procedure for the reasons stated above. R VE[address]PER[address] SUPERVISOR documented in this encounter Procedure Notes * Carson Roberts MD PhD - 01/19/2021 11:48 AM CSTAssociated Order(s): COLONOSCOPY ENDOSCOPY LAB Patient Name: Ayden Santos Procedure Date: 01/19/2021 11:48 AM Date of : 1945 Admit Type: Outpatient Age: 75 Gender: Male Attending MD: Carson Roberts MD, PHD Room: [facility] ENDOSCOPY ROOM 02 Note Status: Finalized Procedure: Colonoscopy Indications: High risk colon cancer surveillance: Personal history of colonic polyps, Last colonoscopy: February 2017 Providers: Carson Roberts MD, PHD Referring MD: Ronaldo Ulrich M.D. Medicines: Monitored Anesthesia Care Complications: No immediate complications. Estimated Blood Loss: Estimated blood loss: none. Procedure: Pre-Anesthesia Assessment: - Immediately prior to administration of medications, the patient was re-assessed for adequacy to receive sedatives. The benefits, risks and alternatives of the procedure and sedation were discussed and informed consent was obtained. All questions were answered. Please refer to the signed informed consent document in the medical record. The scope was passed under direct vision. The [id number] was introduced through the anus and advanced to the terminal ileum. The colonoscopy was performed without difficulty. The patient tolerated the procedure well. The quality of the bowel preparation was good. The quality of the bowel preparation was evaluated using the BBPS (Leigh Bowel Preparation Scale) with scores of: Right Colon = 3 (entire mucosa seen well with no residual staining, small fragments of stool or opaque liquid), Transverse Colon = 3 (entire mucosa seen well with no residual staining, small fragments of stool or opaque liquid) and Left Colon = 2 (minor amount of residual staining, small fragments of stool and/or opaque liquid, but mucosa seen well). The total BBPS score equals 8. The bowel preparation used was polyethylene glycol (PEG) via split dose instruction. Bowel prep was [...] Scattered small and large-mouthed diverticula were found from descending colon to sigmoid colon. The exam was otherwise without abnormality on direct and retroflexion views. Impression: - The examined portion of the ileum was normal. - One 15 mm polyp in the ascending colon, removed with a hot snare. Resected and retrieved. Clip (MR conditional) was placed. - One 3 mm polyp in the ascending colon, removed with a cold snare. Resected and retrieved. - One 10 mm polyp in the descending colon, removed with a hot snare. Resected and retrieved. - Diverticulosis from descending to sigmoid colon. - The examination was otherwise normal on direct and retroflexion views. Recommendation: - Await pathology results. - Repeat colonoscopy in 3 years for surveillance based on pathology results. - High fiber diet. - Contact Information: During normal business hours - Please call the Nurse Coordinator: [phone]. After hours, evening, nights, weekends and holidays - Please call the hospital tobacco sieve operator at and ask for the GI fellow investigations manager. Attending Participation: I personally performed the entire procedure. Electronically signed by Carson Roberts MD. Carson Roberts MD, PHD 01/19/2021 12:22:26 PM Number of Addenda: 0 Note Initiated On: 01/19/2021 11:[address] SUPERVISOR documented in this encounter Miscellaneous Notes * Perioperative Nursing Note - Octavia Green RN - 01/19/2021 1:[address] Roberts spoke with patient re: findings. Discharge instructions given to patient ( and spouse by phone)- questions answered, understanding expressed. Tolerating po w/o problems. R VEHICLE OPERATOR [address] SUPERVISOR * Pre-Procedure Instructions - Mona Allen RN - 01/18/2021 3:47 PM [address] SUPERVISOR Please follow any and all instruction you were given re:Bowel prep When you arrive, please come to [facility] hospital entrance. As you enter there will be an information desk, let them know you are here for a procedure and theywill direct you to the registration area. Once registered one of the endoscopy nurses will come to get you ready for your procedure Dress comfortable, please leave any valuables at home, tran. harper, jewelry For your safety due to the anesthesia, you will not be able to drive. Please have a ride arranged to and from hospital with a responsible adult- someone who knows you andcan care for you At any entrance to the building you will be screened for Covid symptoms, Covid exposure, and have your temp. taken. You are required to wear a mask at all times I want to reassure you all staff are screened as we come in, and we do wear mask at all times. You are allowed one person to accompany you into the building. This person will be screened and required to wear a mask at all times If this person(your new car driver)chooses not to come inside or will be picking you up after your procedure with anesthesia, for your safety we will confirm your ride home by phone call prior to your procedure start time R VEHIC[address]PER[address] SUPERVISOR documented in this encounter Plan of Treatment Not on file documented as of this encounter Procedures Procedure Name Priority Date/Time Associated Diagnosis Comments POCT GLUCOSE DEVICE Routine 01/19/2021 1 2:41 PM [address] SUPERVISOR SURGICAL PATHOLOGY Routine 01/19/2021 12 :02 PM [address] SUPERVISOR History of colon polyps COLONOSCOPY 01/19/2021 11:48 AM [address] SUPERVISOR COLON REMOVAL SNARE 01/19/2021 1 1:46 AM [address] SUPERVISOR History of colon polyps POCT GLUCOSE DEVICE Routine 01/19/2021 1 0:19 AM [address] SUPERVISOR documented in this encounter Results * POCT glucose (01/19/2021 12:41 PM [address] SUPERVISOR) Glucose, POC 156 70 - 199 mg/dL TAYLOR ZUNIGA Comment: Interpretive Data Glucose is assumed to be non-fasting. Fasting Glucose reference ranges are: 0 - 150 years: ??70 mg/dL - 99 mg/dL Current interpretive data was last revised on 2013. POC Performer [id number] [facility] P[facility] Device Number [id number] TAYLOR JONESW Blood 01/19/2021 12:4 1 [address] SUPERVISOR 01/19/2021 12:[address] SUPERVISOR Carson Roberts MD PhD LAB POCT ORDERABLES - DEV ICE Final Result [facility] [address] [facility] [place] [address] * Surgical pathology (01/19/2021 12:02 PM [address] SUPERVISOR) Tissue (Polyp(s), colon/colorectal, esophageal, gastric) 01/19/2021 12:02 PM [address] SUPERVISOR Tissue (Polyp(s), colon/colorectal, esophageal, gastric) 01/19/2021 12:12 PM [address] SUPERVISOR Narrative PATHOLOGY [facility] - 01/20/2021 10:21 AM [address]PER[address] SUPERVISOR EPIC results best viewed via link to PDF [facility] [place] [address] Note to Patients: This report may contain a detailed description of human tissue sent by a health care provider to the laboratory for pathologic evaluation. The content of this report is essential for diagnosis and may provide important critical findings. This information may be unfamiliar to patients to review without a medical professional present. It is advised that the patient review this report in the presence of a health care provider who can answer questions and explain the details. SURGICAL PATHOLOGY REPORT FINAL Patient Name: ?? AYDEN SANTOS Gender: ??M : ??1945 (Age: 75) Address: [address] [place], [place] ??[address] Hospital #: ??[id number] Taken:01/19/2021 Received:01/19/2021 Reported: 01/20/2021 Patient Type: WC SDS Client ?[facility] Service: Gastro Location: [facility] Physician(s): ??Sara Almazan Dr., M.D. Diagnosis: A. Large intestine, ascending colon polyps, biopsy ? - Fragments of tubular adenoma B. Large intestine, descending colon polyp, biopsy ? - Fragments of tubular adenoma yoel/01/20/2021 05:57 By this signature, I attest that the above diagnosis is based upon my personal examination of the slides(and/or other material indicated in the diagnosis). Stefani Aaron MD Report Electronically Reviewed and Signed Out By ??Stefani Aaron MD 01/20/2021 10:21:18 Microscopic Description and Comment: Microscopic findings substantiates the above cited diagnosis. Microscopic slide review and interpretation for this case was performed at [facility], Department of Surgical Pathology, [address] [facility] [place] [address], ??[place], [place] ??[address] ?? CLIA # [id number] Myra Mccann M.D. History: The patient is a 75-year-old man with history of colon polyps. ??Operative procedure: Colonoscopy. Specimen(s) Received: A: Ascending polyps x2 B: Descending polyp Gross Description: The specimens are received in two formalin filled containers each labeled with the patient's identifiers. ? A. ??Labeled ascending polyps x2. ??It holds multiple irregular herrera soft tissue fragments measuring 2.3 x 0.9 x 0.2 cm in aggregate. ??Labeled A1. ??Jar 0. B. ??Labeled descending polyp. ??It holds multiple irregular herrera soft tissue fragments measuring 1.1 x 0.6 x 0.1 cm in aggregate. ??Labeled B1. ??Jar 0. cnewho/01/19/2021 14:13 PA(s): Francia Cox, BS, CT (ASCP) By this signature, I attest that the above diagnosis is based upon my personal examination of the slides(and/or other material). Addenda/Procedures The performance characteristics of some immunohistochemical stains, fluorescence in-situ hybridization tests and immunophenotyping by flow cytometry cited in this report (if any) were determined by the Surgical Pathology and Flow Cytometry Departments at [facility] as part of an ongoing plant quality manager program and in compliance with federally mandated regulations drawn from the Clinical Laboratory Improvement Act of 1988 (CLIA '88). ??Some of these tests rely on the use of analyte specific reagents and are subject to specific labeling requirements by the US Food and Drug Administration. ??Such diagnostic tests may only be performed in a facility that is certified by the Department of Health and Human Services as a high complexity laboratory under CLIA '88. ??The FDA has determined that such clearance or approval is not necessary. ??This test is used for clinical purposes. ??It should not be regarded as investigational or for research. ??Nevertheless, federal rules concerning the medical use of analyte specific reagents require that the following disclaimer be attached to the report: This test was developed and its performance characteristics determined by the Surgical Pathology and Flow Cytometry Departments of [facility]. ??It has not been cleared or approved by the U. S. Food and Drug Administration. IMAGES AND SCANNED DOCUMENTS, IF INCLUDED, ONLY VIEWABLE IN PDF VERSION OF REPORT Carson Roberts MD PhD LAB PATHOLOGY ORDERABLES Final Result PATHOLOGY [facility] [phone] * COLONOSCOPY (01/19/2021 11:48 AM [address]LE [address]PER[address] SUPERVISOR) Anatomical Region Laterality Modality Other Narrative Procedure Note Carson Roberts MD PhD - 01/19/2021 11:48 AM CST ENDOSCOPY LAB Patient Name: Ayden Santos Procedure Date: 01/19/2021 11:48AM Date of : 1945 Admit Type: Outpatient Age: 75 Gender: Male Attending MD: Carson Roberts MD,PHD Room: [facility] ENDOSCOPY ROOM 02 Note Status: [...] The scope was passed under direct vision.The [id number] was introduced through the anusand advanced to [...] During normal business hours - [facility] [place] [facility] [place]: [phone]. After hours, evening, nights, weekends and holidays- Please call the hospital tobacco sieve operator at and ask for the GI fellow investigations manager. Attending Participation: I personally performed the entire procedure. Electronically signed by Carson Roberts MD. Carson Roberts MD, PHD 01/19/2021 12:22:26 PM Number of Addenda: 0 Note Initiated On: 01/19/2021 11:48 AM us Carson Roberts MD PhD ENDOSCOPY PROCEDURES Anya l Result * POCT glucose (01/19/2021 10:19 AM [address]PERATOR [address] SUPERVISOR) [facility] Signature Glucose, POC 162 70 - 199 mg/dL TAYLOR ZUNIGA Comment: Interpretive Data Glucose is assumed to be non-fasting. Fasting Glucose reference ranges are: 0 - 150 years: ??70 mg/dL - 99 mg/dL Current interpretive data was last revised on 2013. POC Performer [id number] TAYLOR ZUNIGA POC Device Number [id number] TAYLOR ZUNIGA Blood 01/19/2021 10:1 9 AM [address] SUPERVISOR 01/19/2021 10:[address] SUPERVISOR us Carson Roberts MD PhD LAB POCT ORDERABLES - DEV ICE Final Result [facility] [address] [facility] Department [place] [address] documented in this encounter Visit Diagnoses Diagnosis History of colon polyps- Primary History of colon polyps documented in this encounter Admitting Diagnoses Diagnosis History of colon polyps documented in this encounter Administered Medications Inactive Administered Medications - up to 3 most recent administrations Medication Order MAR Action Action Date Dose Rate Site albuterol 2.5 mg/0.5 mL nebulizer solution 2.5 mg 2.5 mg, nebulization, Once (correspondence school teacher), On Mon01/19/21 at 1115, For 1 dose, Pre-Op Given 01/19/2021 10:47 AM [address]PER[address] SUPERVISOR 2.5 mg ipratropium (ATROVENT) 0.02 % nebulizer solution 0.5 mg 0.5 mg, nebulization, 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 Flush before and after each use. , Indications: FlushingIndications:Flushi ng sodium chloride 0.9% infusion 30 mL/hr, intravenous, Continuous, Starting on Mon01/19/21 at 1030, Pre-Procedure (GI) Rate/Dose Verify 01/19/2021 11:[address] SUPERVISOR 30 mL/hr New Bag 01/19/2021 10:23 AM [address] SUPERVISOR 30 mL/hr 30 mL/hr documented in this encounter Discontinued Medications Medication Sig Discontinue Reason Start Date End Da te polyethylene glycol (GoLYTELY) 236-22.74-6.74 -5.86 gram solution Please follow instructions mailed from our office for your colonoscopy prep Stop Taking at Discharge 11/25/2020 01/19/2021 documented as of this encounter Active and Recently Administered Medications Times are shown in [employer] [address] SUPERVISOR. 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), On Mon01/19/21 at 1115, For 1 dose, Pre-Op 1047 (Given - Provid er: April Edmondson, MARCIANO) Continuous Medication Order 01/17/2021 01/18/2021 01/19/2021 sodium chloride 0.9% infusion 30 mL/hr, intravenous, Continuous, Starting on Mon01/19/21 at 1030, Pre-Procedure (GI) 1023 (New Bag - Prov ider: Felice Baez RN)1146 (Rate/Dose Verify - Provider: Polina Juarez CRNA)1216 (Stopped - Provider: Polina Juarez CRNA)1318 (Stopped - Provider: Octavia Green RN) PRN Medication Order 01/17/2021 01/18/2021 01/19/2021 ondansetron (ZOFRAN) injection 4 mg 4 mg, intravenous, Administer over 2 Minutes, Every 6 hours PRN, nausea, vomiting, Starting on Mon01/19/21 at 0958, Pre-Procedure (GI) sodium chloride 0.9% flush 0.5-20 mL 0.5-20 mL, intra-catheter, As needed, line care, Starting on Mon01/19/21 at 0958, Pre-Procedure (GI), Flush volume based on line type and size. Flush before and after each use. 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
--- OUTSIDE RECORDS SUMMARY | 2024-02-10 01:47 | XMS_ITS | Encounter Summary ---
Author Organization [facility] Address [address] [address] Care Team Providers Care Reinsurance Accountant Name Role Phone Ronaldo Ulrich MD Primary Care Provider + Reason for Referral * Consultation (Routine) - Closed Specialty Diagnoses / Procedures Referred By Contaida t Referred To Contact Orthopedic Surgery Diagnoses Acquired trigger finger of left ring finger Ronaldo Ulrich MD [address] [place] [address] Phone: tel: fax: Nuria Thapa, OMARI [address] [place] [address] Phone: tel: fax: Referral ID Status Reason Start Date Expiration Date V isits Requested Visits Authorized [id number] Closed Specialty Services Required 02/11/2021 03/13/2022 1 1 Question Answer Please select the performing region: [facility] [[id number]] Please select the performing department: [facility] [[id number]] # of visits: 1 D KILN DRAWER Reason for Visit * Reason Comments Follow-up 3 month HTN, Hyperli pidemia, CAD, Vit D deficiency, DM, BPH Labs done 02/08/2021 Hyperglycemia C/O B/S elevated in the 200's fasting the mornings for the past 3 months Pt has been taking sliding scale insulin which will bring the readings down. finger locks C/O L ring finger lo cking for the past 3-4 months. Encounter Details Date Type Department Care Team (Late st Contact Info) Description 02/11/2021 10:00 AM ROUND KILN DRAWER Office Visit [facility] Primary Care [address] [place] [address] Ronaldo Ulrich MD [address] [place] [address] Type 2 diabetes mellitus with circulatory disorder (CMS/HCC) (HCC) (Primary Dx); Hypertensive heart disease without heart failure; 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 2 diabetes mellitus (CMS/HCC) (HCC); Class 2 severe obesity due to excess calories with serious comorbidity and body mass index (BMI) of 37.0 to 37.9 in adult (HCC); Colon polyps; 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 mellitus (CMS/HCC) (HCC); Obstructive sleep apnea; Atherosclerosis of aorta (CMS/HCC) (HCC); Coronary artery disease involving [place] coronary artery of [place] heart without angina pectoris; Benign prostatic hyperplasia without lower urinary tract symptoms; Diabetic nephropathy associated with type 2 diabetes mellitus (HCC); Screening PSA (prostate specific antigen); Acquired trigger finger of left ring finger [...] on file Legal Sex Male 11:37 AM ROUND KILN DRAWER Gender Identity Not on file Sexual Orientation Not on file 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 Not on file documented as of this encounter Last Filed Vital Signs Vital Sign Reading Time Taken Comments Blood Pressure 132/78 02/11/2021 10:56 AM ROUND KILN DRAWER Pulse 88 02/11/2021 10:15 AM ROUND KILN DRAWER Temperature 35.7 ??C (96.3 ??F) 02/11/2021 10:[address] Respiratory Rate 16 02/11/2021 10:15 AM ROUND KILN DRAWER Oxygen Saturation 94% 02/11/2021 10:15 AM ROUND KILN DRAWER Inhaled Oxygen Concentration - - Weight 120.2 kg (265 lb) 02/11/2021 10:15 AM ROUND KILN DRAWER Height 180.3 cm (5' 11 ) 02/11/2021 10:15 AM ROUND KILN DRAWER Body Mass Index 36.96 02/11/2021 10:15 AM ROUND KILN DRAWER documented in this encounter Ordered Prescriptions Prescription Sig Dispense Quantity Refills Last Filled Start Date End Date dapagliflozin (FARXIGA) 5 mg tabletIndications: type 2 diabetes mellitus Take 1 tablet (5 mg total) by mouth daily 30 tablet 5 02/11/2021 02/16/2021 documented in this encounter Progress Notes * Ronaldo Ulrich MD - 02/11/2021 10:00 AM CST Images from the original note were not included. Subjective/Objective Patient ID: Ayden Santos is a 75 y.o. male. Assessment/Plan Diagnoses and all orders for this visit: Type 2 diabetes mellitus with circulatory disorder (CMS/HCC) (HCC) (Primary) Assessment & Plan: Complicated by hypertension and coronary artery disease. Hemoglobin A1c is slightly improved, but still elevated. Continue Humalog, Xultophy, and metformin. Would try Farxiga 5 mg once a day to help lower sugars and renal and heart protection. Orders: - dapagliflozin (FARXIGA) 5 mg tablet; Take 1 tablet (5 mg total) by mouth daily - Hemoglobin A1c; Future - Albumin Creatinine Ratio, Urine; Future Hypertensive heart disease without heart failure Assessment & Plan: Well controlled on metoprolol and irbesartan hydrochlorothiazide Orders: - Comprehensive metabolic panel; Future 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 2 diabetes mellitus (CMS/HCC) ([facility]) Assessment & Plan: Well controlled on simvastatin Orders: - Comprehensive metabolic panel; Future - Lipid panel; Future Class 2 severe obesity due to excess calories with serious comorbidity and body mass index (BMI) of37.0 to 37.9 in adult ([facility]) Assessment & Plan: BMI Follow-up includes: exercise counseling. Colon polyps Assessment & Plan: Had repeat colonoscopy by Dr. Roberts on January 19, 2021. Recommend follow-up colonoscopy in 3 years 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 mellitus ([facility]) ([facility]) Assessment & Plan: Hemoglobin A1c is slowly improving on metformin, Humalog, and Xultophy. Neuropathy controlled with gabapentin Obstructive sleep apnea Assessment & Plan: Uses CPAP nightly and benefits from it Atherosclerosis of aorta ([facility]) ([facility]) Assessment & Plan: Stable on simvastatin and aspirin Coronary artery disease involving [place] coronary artery of [place] heart without angina pectoris Assessment & Plan: Stable on aspirin, simvastatin, metoprolol, and irbesartan hydrochlorothiazide. Follows with Dr. Jiménez Benign prostatic hyperplasia without lower urinary tract symptoms Assessment & Plan: Stable on finasteride Diabetic nephropathy associated with type 2 diabetes mellitus ([facility]) Screening PSA (prostate specific antigen) - PSA screen; Future Acquired trigger finger of left ring finger Assessment & Plan: Refer to hand specialist Orders: - Ambulatory referral to Orthopedic Surgery; Future Chief Complaint Follow-up for chronic conditions HPI: Ayden is here for 3 month follow-up for HTN, Hyperlipidemia, CAD, Vit D deficiency, DM, BPH Labs done 02/08/2021. He complains that his B/S elevated in the 200's fasting the mornings for the past 3 months Pt has been taking sliding scale insulin which will bring the readings down. He also complains of L ring finger locking for the past 3-4 months. Current Outpatient Medications Medication Sig Dispense Refill ??? acyclovir (ZOVIRAX) 400 mg tablet Take 1 tablet (400 mg total) by mouth 2 (two) times a day 180tablet 0 ??? albuterol HFA (ProAir HFA) 90 mcg/actuation inhaler Inhale 2 puffs every 4 (four) hours as needed for wheezing or shortness of breath for up to 15 days 8.5 g 0 ??? aspirin 81 mg chewable tablet Take 1 tablet (81 mg total) by mouth daily 30 tablet 11 ??? blood glucose diagnostic (ONETOUCH VERIO) strip smbg bid ac 100 each 11 ??? cholecalciferol (VITAMIN D-3) 2,000 unit capsule Take 2,000 Units by mouth daily ??? coenzyme Q10 (COQ-10) 100 mg capsule take 3 by Oral route every evening 0 0 ??? docusate sodium (COLACE) 100 mg capsule Take 100 mg by mouth daily ??? finasteride (PROSCAR) 5 mg tablet Take 1 tablet (5 mg total) by mouth daily 90 tablet 1 ??? flash glucose sensor (FreeStyle Erick 2 Sensor) kit Change sensor every two weeks. 3 kit 3 ??? insulin lispro (HumaLOG) 100 unit/mL pen for injection USE FOLLOWS: 131- 150 2 UNITS, 151-1804 UNITS, 181-200 6 UNITS, 201-230 8 UNITS, 231-250 10 UNITS MAX DOSE 30 UNITS PER DAY 30 mL 1 ??? irbesartan-hydroCHLOROthiazide (AVALIDE) 300-12.5 mg per tablet TAKE 1 TABLET BY MOUTH DAILY 90tablet 3 ??? metFORMIN (GLUCOPHAGE) 500 mg tablet Take 1 tablet (500 mg total) by mouth 2 (two) times a day with meals 180 tablet 3 ??? metoprolol tartrate (LOPRESSOR) 50 mg immediate release tablet TAKE 2 TABLETS BY MOUTH AT LUNCHAND 1 TABLET AT BEDTIME 270 tablet 1 ??? miscellaneous medical supply misc C-Pap ??? simvastatin (ZOCOR) 40 mg tablet TAKE 1 TABLET BY MOUTH AT NIGHT 90 tablet 3 ??? vit C,A-Hu-xvdfm-lutein-zeaxan 250-90-40-1 mg capsule Take 1 capsule by mouth daily ??? vitamin B complex capsule Take 1 capsule by mouth daily ??? Xultophy 100/3.6 100 unit-3.6 mg /mL (3 mL) insulin pen pen INJECT 50 UNITS SUBCUTANEOUSLY DAILY 45 mL 0 ??? dapagliflozin (FARXIGA) 5 mg tablet Take 1 tablet (5 mg total) by mouth daily 30 tablet 5 No current facility-administered medications for this visit. [...] Results (from the past 1008 hour(s)) POCT glucose Collection Time: 01/19/21 10:19 AM Result Value Ref Range Glucose, POC 162 70 - 199 mg/dL POC Performer [id number] POC Device Number [id number] POCT glucose Collection Time: 01/19/21 12:41 PM Result Value Ref Range Glucose, POC 156 70 - 199 mg/dL POC Performer [id number] POC Device Number [id number] Comprehensive metabolic panel Collection Time: 02/08/21 9:25 AM Result Value Ref Range Glucose 183 (H) 65 - 99 mg/dL BUN 18 7 - 25 mg/dL Creatinine 1.05 0.70 - 1.18 mg/dL eGFR NON-AFR. CENTRAL AFRICAN 69 > OR = 60 mL/min/1.73m2 EGFR 80 > OR = 60 mL/min/1.73m2 BUN/creat ratio NOT APPLICABLE 6 - 22 (calc) Sodium 136 135 - 146 mmol/L Potassium, pl 4.4 3.5 - 5.3 mmol/L Chloride 100 98 - 110 mmol/L CO2 28 20 - 32 mmol/L Calcium 9.5 8.6 - 10.3 mg/dL Protein, sr 7.5 6.1 - 8.1 g/dL Albumin 4.2 3.6 - 5.1 g/dL GLOBULIN 3.3 1.9 - 3.7 g/dL (calc) Alb/glob ratio 1.3 1.0 - 2.5 (calc) Bilirubin, total 0.7 0.2 - 1.2 mg/dL Alk phos 71 35 - 144 U/L AST 21 10 - 35 U/L ALT (SGPT) 22 9 - 46 U/L Hemoglobin A1c Collection Time: 02/08/21 9:25 AM Result Value Ref Range Hgb A1C 8.1 (H) <5.7 % of total Hgb Lipid panel Collection Time: 02/08/21 9:25 AM Result Value Ref Range Cholesterol 136 <200 mg/dL HDL 39 (L) > OR = 40 mg/dL Triglycerides 165 (H) <150 mg/dL LDL 73 mg/dL (calc) Chol/HDL ratio 3.5 <5.0 (calc) Non-HDL, (LDL+VLDL) 97 <130 mg/dL (calc) Physical Exam: BP 132/78 (BP Location: Left arm, Patient Position: Sitting) Pulse 88 Temp (!) 35.7 ??C (96.3 ??F) (Skin) Resp 16 Ht 180.3 cm (5' 11 ) Wt 120.2 kg (265 lb) SpO2 94% BMI 36.96 kg/m?? Physical Exam Constitutional: Appearance: He is [...] person, place, and time. Ronaldo Ulrich MD D KILN DRAWER documented in this encounter Miscellaneous Notes * Assessment & Plan Note - Ronaldo Ulrich MD - 02/11/2021 10:47 AM ROUND KILN DRAWER Associated Problem(s): Trigger finger, left ring finger (Resolved 09/26/2023) Refer to hand specialist D KILN DRAWER * Assessment & Plan Note - Ronaldo Ulrich MD - 02/10/2021 12:20 PM ROUND KILN DRAWER Associated Problem(s): Benign prostatic hyperplasia without lower urinary tract symptoms Stable on finasteride D KILN DRAWER * Assessment & Plan Note - Ronaldo Ulrich MD - 02/10/2021 12:19 PM ROUND KILN DRAWER Associated Problem(s): Coronary artery disease involving [place] coronary artery of [place] heart without angina pectoris Stable on aspirin, simvastatin, metoprolol, and irbesartan hydrochlorothiazide. Follows with Dr. Jiménez D KILN DRAWER * Assessment & Plan Note - Ronaldo Ulrich MD - 02/10/2021 12:19 PM ROUND KILN DRAWER Associated Problem(s): Atherosclerosis of aorta (CMS/HCC) ([facility]) Stable on simvastatin and aspirin D KILN DRAWER D KILN DRAWER * Assessment & Plan Note - Ronaldo Ulrich MD - 02/10/2021 12:19 PM ROUND KILN DRAWER Associated Problem(s): Obstructive sleep apnea Uses CPAP nightly and benefits from it D KILN DRAWER * Assessment & Plan Note - Ronaldo Ulrich MD - 02/10/2021 12:18 PM ROUND KILN DRAWER Associated Problem(s): 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 mellitus (CMS/HCC) (HCC) Hemoglobin A1c is slowly improving on metformin, Humalog, and Xultophy. Neuropathy controlled with gabapentin D KILN DRAWER * Assessment & Plan Note - Ronaldo Ulrich MD - 02/10/2021 12:18 PM ROUND KILN DRAWER Associated Problem(s): Colon polyps (Resolved 08/19/2021) Had repeat colonoscopy by Dr. Roberts on January 19, 2021. Recommend follow-up colonoscopy in 3 years D KILN DRAWER * Assessment & Plan Note - Ronaldo Ulrich MD - 02/10/2021 12:17 PM ROUND KILN DRAWER Associated Problem(s): Family history of colon cancer (Resolved 08/19/2021) Had colonoscopy by Dr. Roberts on January 19, 2021. Recommend follow-up colonoscopy in 3 years. D KILN DRAWER * Assessment & Plan Note - Ronaldo Ulrich MD - 02/10/2021 12:16 PM ROUND KILN DRAWER Associated Problem(s): Class 2 severe obesity due to excess calories with serious comorbidity and body mass index (BMI) of 37.0 to 37.9 in adult ([facility]) BMI Follow-up includes: exercise counseling. D KILN DRAWER * Assessment & Plan Note - Ronaldo Ulrich MD - 02/10/2021 12:15 PM ROUND KILN DRAWER Associated Problem(s): 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 2 diabetes mellitus (CMS/HCC) ([facility]) Well controlled on simvastatin D KILN DRAWER * Assessment & Plan Note - Ronaldo Ulrich MD - 02/10/2021 12:15 PM ROUND KILN DRAWER Associated Problem(s): Hypertensive heart disease without heart failure Well controlled on metoprolol and irbesartan hydrochlorothiazide D KILN DRAWER * Assessment & Plan Note - Ronaldo Ulrich MD - 02/10/2021 12:14 PM ROUND KILN DRAWER Associated Problem(s): Type 2 diabetes mellitus with circulatory disorder (CMS/HCC) ([facility]) Complicated by hypertension and coronary artery disease. Hemoglobin A1c is slightly improved, but still elevated. Continue Humalog, Xultophy, and metformin. Would try Farxiga 5 mg once a day to help lower sugars and renal and heart protection. D KILN DRAWER D KILN DRAWER documented in this encounter Plan of Treatment Scheduled Referrals Name Type Priority Associated Diagnoses Order Schedule Ambulatory referral to Orthopedic Surgery Outpatient Referral Routine Acquired trigger finger of left ring finger Expected: 02/25/2021 (Approximate), Expires: 02/11/2022 documented as of this encounter Procedures Procedure Name Priority Date/Time Associated Diagnosis Comments PSA SCREEN Routine 08/11/2021 12:59 PM CDT Screening PSA (prostate specific antigen) ALBUMIN CREATININE RATIO, URINE Routine 08/11/2021 12:59 PM CDT Type 2 diabetes mellitus with circulatory disorder (CMS/HCC) ([facility]) HEMOGLOBIN A1C Routine 08/11/2021 12:59 PM CDT Type 2 diabetes mellitus with circulatory disorder ([facility]/HCC) ([facility]) LIPID PANEL Routine 08/11/2021 12:59 PM CDT 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 2 diabetes mellitus ([facility]/HCC) ([facility]) COMPREHENSIVE METABOLIC PANEL Routine 08/11/2021 12:59 PM CDT Hypertensive heart disease without heart failure 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 2 diabetes mellitus ([facility]/HCC) ([facility]) documented in this encounter Results * PSA screen (08/11/2021 12:59 PM CDT) PSA 1.48 < OR = 4.00 ng/mL [facility] Comment: The total PSA value from this assay system is standardized against the WHO standard. The test result will be approximately 20% lower when compared to the equimolar-standardized total PSA (Rogelio [place]ering[place]). Comparison of serial PSA results should be interpreted with this fact in mind. This test was performed using the Siemens chemiluminescent method. Values obtained from different assay methods cannot be used interchangeably. PSA levels, regardless of value, should not be interpreted as absolute evidence of the presence or absence of disease. Blood specimen (specimen) 08/11/2021 12:59 PM CDT 08/11/2021 12:59 PM CDT Ronaldo Ulrich MD LAB BLOOD ORDERABLES Fin al Result Performing Organization Address [facility] de Phone Number [facility] [address] [place] [address] * (ABNORMAL) Albumin Creatinine Ratio, Urine (08/11/2021 12:59 PM CDT) Creatinine, ur 52 20 - 320 mg/dL [facility] Microalbumin, ur 11.5 See Note: mg/dL [facility] Comment: Reference Range: Reference Range Not established Microalbumin/creat ratio 221(H) <30 mcg/mg creat [facility] Comment: [...] to be within a diagnostic category. Urine 08/11/2021 12:5 9 PM CDT 08/11/2021 12:59 PM CDT Ronaldo Ulrich MD LAB URINE ORDERABLES Fin al Result Performing Organization Address [facility] de Phone Number [facility] [address] [place] [address] * (ABNORMAL) Lipid panel (08/11/2021 12:59 PM CDT) Cholesterol 127 <200 mg/dL [facility] HDL 40 > OR = 40 mg/dL [facility] Triglycerides 195(H) <150 mg/dL [facility] LDL 60 mg/dL (calc) [facility] Comment: Reference [...] LDL-C. Nishant GHOTRA et al. IRVING. 2013;310(19): 1075-7347 (http://education.[employer]/faq/FTD489) Chol/HDL ratio 3.2 <5.0 (calc) [facility] Non-HDL, (LDL+VLDL) 87 <130 mg/dL (calc) [facility] Comment: For patients with diabetes plus 1 major ASCVD risk factor, treating to a non-HDL-C goal of <100 mg/dL (LDL-C of <70 mg/dL) is considered a therapeutic option. Blood specimen (specimen) 08/11/2021 12:59 PM CDT 08/11/2021 12:59 PM CDT Ronaldo Ulrich MD LAB BLOOD ORDERABLES Fin al Result [facility] [address] [place] [address] * (ABNORMAL) Hemoglobin A1c (08/11/2021 12:59 PM CDT) Hgb A1C 8.3(H) <5.7 % of total Hgb [facility] Comment: For someone without known diabetes, [...] diabetes for children. ?? Blood specimen (specimen) 08/11/2021 12:59 PM CDT 08/11/2021 12:59 PM CDT Ronaldo Ulrich MD LAB BLOOD ORDERABLES Fin al Result [facility] [address] [place] [address] * (ABNORMAL) Comprehensive metabolic panel (08/11/2021 12:59 PM CDT) Glucose 246(H) 65 - 99 mg/dL [facility] Comment: ? Fasting reference interval For someone without known diabetes, a glucose value >125 mg/dL indicates that they may have diabetes and this should be confirmed with a follow-up test. BUN 21 7 - 25 mg/dL [facility] Creatinine 1.23(H) 0.70 - 1.18 mg/dL [facility] Comment: For patients >49 years of age, the reference limit for Creatinine is approximately 13% higher for people identified as -Jamaican. eGFR NON-AFR. CENTRAL AFRICAN 57(L) > OR = 60 mL/min/1. 73m2 [facility] EGFR 66 > OR = 60 mL/min/1. 73m2 [facility] BUN/creat ratio 17 6 - 22 (calc) [facility] Sodium 137 135 - 146 mmol/L [facility] Potassium, pl 4.6 3.5 - 5.3 mmol/L [facility] Chloride 101 98 - 110 mmol/L [facility] CO2 25 20 - 32 mmol/L [facility] Calcium 9.5 8.6 - 10.3 mg/dL [facility] Protein, sr 7.5 6.1 - 8.1 g/dL [facility] Albumin 4.1 3.6 - 5.1 g/dL [facility] GLOBULIN 3.4 1.9 - 3.7 g/dL (calc) [facility] Alb/glob ratio 1.2 1.0 - 2.5 (calc) [facility] Bilirubin, total 0.6 0.2 - 1.2 mg/dL [facility] Alk phos 80 35 - 144 U/L [facility] AST 20 10 - 35 U/L [facility] ALT (SGPT) 23 9 - 46 U/L [facility] Blood specimen (specimen) 08/11/2021 12:59 PM CDT 08/11/2021 12:59 PM CDT Ronaldo Ulrich MD LAB BLOOD ORDERABLES Fin al Result [facility] [address] [place] [address] documented in this encounter Visit Diagnoses Diagnosis 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)- Primary Hypertensive heart disease without heart failure Unspecified hypertensive heart disease without heart failure 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) Class 2 severe obesity due to excess calories with serious comorbidity and body mass index (BMI) of 37.0 to 37.9 in adult (HCC) Colon polyps Benign neoplasm of colon 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 mellitus (CMS/HCC) (HCC) Obstructive sleep apnea Obstructive sleep apnea (adult) (pediatric) Atherosclerosis of aorta (HCC) Atherosclerosis of aorta Coronary artery disease involving [place] coronary artery of [place] heart without angina pectoris Benign prostatic hyperplasia without lower urinary tract symptoms Diabetic nephropathy associated with type 2 diabetes mellitus (HCC) Screening PSA (prostate specific antigen) Special screening for malignant neoplasm of prostate Acquired trigger finger of left ring finger documented in this encounter Care Teams Reinsurance Accountant Relationship Specialty Start Date End Date Ronaldo Ulrich MD [address] [place] [address] PCP - General Internal Medicine 01/18/21 documented as of this encounter
--- OUTSIDE RECORDS SUMMARY | 2024-02-10 01:47 | XMS_ITS | Encounter Summary ---
Author Organization [facility] Address [address] [place] [address] Care Team Providers Care Rate Quoting Operator Name Role Phone Ronaldo Ulrich MD Primary Care Provider + Encounter Details Date Type Department Care Team (Late st Contact Info) Description 07/23/2021 Telephone [facility] Cardiology [address] [place] [address] Farrukh Jiménez MD [address] [place] [address] [address] [place] [address] Social History Tobacco Use Types [...] on file Legal Sex Male 11:37 AM 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 Pt verbally understood. * Telephone Encounter - Yenifer Jimenez - 07/23/2021 9:13 AM CDT LVM with physician message. Requested call back if questions * Telephone Encounter - Yenifer Jimenez - 07/23/2021 9:11 AM CDT ----- Message from Farrukh Jiménez MD sent at 07/22/2021 1:05 PM CDT ----- Please notify echo nl. Heart super strong, looks great. Thx. documented in this encounter Plan of Treatment Not on file documented as of this encounter Visit Diagnoses Not on filedocumented in this encounter Care Teams Rate Quoting Operator Relationship Specialty Start Date End Date Ronaldo Ulrich MD [address] [place] [id number] PCP - General Internal Medicine 01/18/21 documented as of this encounter
--- OUTSIDE RECORDS SUMMARY | 2024-02-10 01:47 | XMS_ITS | Encounter Summary ---
Author Organization [facility] Address [address] [place] [address] Phone Care Team Providers Care Customer Care Representative Name Role Phone Ronaldo Ulrich MD Primary Care Provider + Reason for Visit * Reason Onset Date Comments GI PRE PROCEDURE ASSESSMENT 11/25/2020 DUE FOR COLON Encounter Details Date Type Department Care Team (Late st Contact Info) Description 11/25/2020 Telephone [facility] Gastroenterology [address] [facility] [address] [address] Mariely Rivera GI PRE PROCEDURE ASSESSMENT (DUE FOR COLON) Social History Tobacco Use Types Packs/Day Years Used Date Smoking Tobacco: Former Cigarettes 1 35 Smokeless Tobacco: Never Comments:Smoking History Pac ks/day: 1 Packs Alcohol Use Standard Drinks/Week Comments Yes 0 (1 standard drink = 0.6 oz pur e alcohol) AUDIT-C Answer Date Recorded Q1: How often do you have a drink containing alc ohol? 2-4 times a month 11/09/2020 Q2: How many drinks containi ng alcohol do you have on a typical day when you are drinking? 1 or 2 11/09/2020 Q3: How often do you have si x or more drinks on one occasion? 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 Not on file documented as of this encounter Ordered Prescriptions Prescription Sig Dispense Quantity Refills Last Filled Start Date End Date polyethylene glycol (GoLYTELY) 236-22.74-6.74 -5.86 gram solution Please follow instructions mailed from our office for your colonoscopy prep 4000 mL 11/25/2020 1 magnesium citrate solution Take 296 mL by mouth once for 1 dose Take 6 hours prior to your arrival time on the day of your colonoscopy 296 mL 11/25/2020 1 documented in this encounter Miscellaneous Notes * Telephone Encounter - SemajrogerioMariely messina - 11/25/2020 10:34 AM CDT PROCEDURE Type: colonoscopy Indication: Hx of colon polyps Referring Physician: Ronaldo Ulrich Date Referred: CLINICAL ASSESSMENT [x]COVID Screening questions [x] Covid vaccination yes []BMI>45, Weight >350 lbs BMI Readings from Last 1 Encounters: 11/09/20 39.34 kg/m?? Wt Readings from Last 1 Encounters: 11/09/20 121.7 kg (268 lb 4.8 oz) [] Patient had GI procedure/CPAP clinic/GI clinic <30 days (if Yes, no medical screening questions needed unless new clinical issues in last 30 days) Medical screening questions: BMI/Weight: NA CARDIOVASCULAR: None RESPIRATORY/LUNG: None RENAL/LIVER/GI: None BLEEDING/CLOTTING: None NEUROLOGICAL: None ENDOCRINE: None PRIOR PROCEDURE ISSUES: None CHIEF OPERATIONS OFFICER/: NA IMPLANTS.: None Notes: DIABETIC MEDS Y/N: Yes [x]Yes- Discuss diabetes medication management with prescribing physician DIALYSIS Y/N: No/NA []HD- Schedule on non-HD day, see protocol []PD- Drain PD fluid AM of procedure, if colonoscopy order AB ppx, see protocol PACEMAKER/ICD Y/N: No/NA Device info: Last documented device check: Any shocks since last cards visit (if yes must see cardiology for procedure clearance): BLOOD THINNERS/ANTICOAG/ANTIPLATELET (BESIDES ASA) Medication: NONE Physician contacted for hold order/date sent: Hold order Method sent: Date hold received: Hold instructions: CONTINUE ASPIRIN INFORMATION REQUESTED []Imaging: []Medical Progress Note/H&P []Medication list []Other: PATIENT OPTIMIZATION []Physician reviewing escalation: []CPAP: Date scheduled: Outcome : [] Location limitations: Scheduling Scheduling location limitations: Director Of Government Sales needed [x] NA Language: POA [x] NA Name: SPECIAL PROCEDURE INSTRUCTIONS golytely/mag citrate Scheduling Notes Procedure information Date of procedure: 01/19 Time of procedure: 11:00 am Arrival time: 10:00 am Location: [facility] Proceduralist: Carson Roberts Instructions Method of instructions: Mailed copy [x]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 []Post anesthesia restrictions given [x]NPO Instructions: [x]Diet Instructions: [x]Take non-blood thinner prescription meds that morning []Bring med list, photo ID, insurance card, no valuables [x]Bring COVID vaccination card (if vaccinated) Bowel Prep Prep prescribed: Golytely Method of Bowel Prep (RX): E-Scribe Copy documented in this encounter Plan of Treatment Not on file documented as of this encounter Visit Diagnoses Diagnosis History of colon polyps- Primary documented in this encounter Orders Case Request Count Last Ordered Date First Orde red Date CASE REQUEST GI 1 11/25/2020 documented in this encounter Care Teams Customer Care Representative Relationship Specialty Start Date End Date Ronaldo Ulrich MD [address] [place] [address] PCP - General Internal Medicine 11/09/20 12/20/20 documented as of this encounter
--- OUTSIDE RECORDS SUMMARY | 2024-02-10 01:47 | XMS_ITS | Encounter Summary ---
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 Gender Identity Not on file Sexual Orientation [...] - Inhaled Oxygen Concentration - - Weight 121.6 kg (268 lb) 01/21/2021 3:10 PM PROJECT GEOPHYSICIST Height - - Body Mass Index 37.38 01/19/2021 9:45 AM PROJECT GEOPHYSICIST documented in this encounter Ordered Prescriptions Prescription Sig Dispense Quantity Refills Last Filled Start Date End Date albuterol HFA (ProAir HFA) 90 mcg/actuation inhalerIndications :Acute bronchitis, unspecified organism Inhale 2 puffs every 4 (four) hours as needed for wheezing or shortness of breath for up to 15 days 8.5 g 01/21/2021 4 cefuroxime (CEFTIN) 500 mg tabletIndications: Acute bronchitis, unspecified organism Take 1 tablet (500 mg total) by mouth 2 (two) times a day for 7 days 14 tablet 01/21/2021 1 documented in this encounter Progress Notes * Francoise Pederson PA - 01/21/2021 3:00 PM CST Images from the original note were not included. Subjective/Objective Patient ID: Ayden Santos is a 75 y.o. male. This was a telemedicine visit with Ayden Santos alone which took place via Telephone. During the visit, I was located in the office and the patient was located at work in the state of [place]. The patient visit started at 3:15 and ended at 3:30. My total encounter time on 01/21/2021 was 15 minutes which was spent in the activities documented in the note. This includes time spent prior to the visit and after the visit in direct care of the patient. This time does not include time spent in any separately reportable services.. The patient has been informed that the visit may not be secure and acknowledged the information. I have explained the option of participating in a telephone or video visit during the COVID-19 public health emergency to the patient. After being given an opportunity to ask questions about and discuss this type of visit, the patient verbally consented to proceeding with the telephone/video visit.The patient understands that this service replaces an office visit and they may be billed and/or responsible for any applicable copayments. Assessment/Plan Diagnoses and all orders for this visit: Acute bronchitis, unspecified organism (Primary) Assessment & Plan: Contact our office if no improvement after treatment, develop new symptoms or feeling worse at any point. Orders: - cefuroxime (CEFTIN) 500 mg tablet; Take 1 tablet (500 mg total) by mouth 2 (two) times a day for 7 days - albuterol HFA (ProAir HFA) 90 mcg/actuation inhaler; Inhale 2 puffs every 4 (four) hours as needed for wheezing or shortness of breath for up to 15 days No notes on file LABS Patient Active Problem List Diagnosis Date Noted ??? Acute bronchitis 01/21/2021 ??? History of colon polyps 11/25/2020 ??? Diabetic nephropathy associated with type 2 diabetes mellitus (HCC) 11/09/2020 ??? Benign prostatic hyperplasia without lower urinary tract symptoms 11/05/2020 ??? Sciatica of right side 09/17/2020 ??? Preoperative examination 06/19/2020 ??? Encounter for Medicare annual wellness exam 04/20/2020 ??? Colon polyps ??? Screening for prostate cancer 11/28/2019 ??? 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 mellitus ([facility]) 09/05/2019 ??? Obstructive sleep apnea 03/07/2019 ??? Atherosclerosis of aorta ([facility] ([facility]) 02/15/2018 ??? Medicare annual wellness visit, subsequent 09/25/2017 ??? Coronary artery disease involving kashia coronary artery of kashia heart without angina pectoris 04/07/2017 ??? Screening for colon cancer 02/21/2017 ??? Morbid obesity with BMI of 45.0-49.9, adult ([facility] ([facility]) 08/18/2016 ??? Renal cyst, acquired, right 08/18/2016 ??? DDD (degenerative disc disease), thoracolumbar 08/18/2016 ??? Family history of colon cancer 02/04/2016 ??? 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 2 diabetes mellitus (CMS/HCC) ([facility]) 11/02/2015 ??? Abnormal findings on diagnostic imaging of lung 02/28/2014 ??? DDD (degenerative disc disease), cervical 01/02/2012 ??? Type 2 diabetes mellitus with circulatory disorder (CMS/HCC) ([facility]) 08/04/2011 ??? Bleeding external hemorrhoids 06/21/2011 ??? Herpes simplex 12/30/2010 ??? Vitamin D deficiency 02/27/2010 ??? Hypertensive heart disease without heart failure 03/10/2006 Chief Complaint Chief Complaint Patient presents with ??? Cough Cough This is a new problem. Episode onset: 1 mo. The problem has been unchanged. The cough is productiveof purulent sputum. Associated symptoms include wheezing (occ mild x1 mo). Pertinent negatives include no chills, fever, headaches, rhinorrhea (occ clear), sore throat or shortness of breath. Treatments tried: mucinex DM. The treatment provided no relief. There is no history of asthma. Patient had colonoscopy this week. Anesthesiology treated him with nebulizer due to wheezing and suggested to address with PCP. Review of Systems Constitutional: Negative for chills and fever. HENT: Negative for rhinorrhea (occ clear) and sore throat. Respiratory: Positive for cough and wheezing (occ mild x1 mo). Negative for shortness of breath. Neurological: Negative for headaches. Vitals Wt 121.6 kg (268 lb) BMI 37.38 kg/m?? Current Outpatient Medications Medication Sig Dispense Refill ??? acyclovir (ZOVIRAX) 400 mg tablet Take 1 tablet (400 mg total) by mouth 2 (two) times a day 180tablet 0 ??? aspirin 81 mg chewable tablet Take 1 tablet (81 mg total) by mouth daily 30 tablet 11 ??? blood glucose diagnostic (SumoSkinnyTOUCH VERIO) strip smbg bid ac 100 each [...] AT NIGHT 90 tablet 3 ??? vit C,I-Fr-olewt-lutein-zeaxan 250-90-40-1 mg capsule Take 1 capsule by mouth daily ??? vitamin B complex capsule Take 1 capsule by mouth daily ??? Xultophy 100/3.6 100 unit-3.6 mg /mL (3 mL) insulin pen pen INJECT 50 UNITS SUBCUTANEOUSLY DAILY 45 mL 0 ??? albuterol HFA (ProAir HFA) 90 mcg/actuation inhaler Inhale 2 puffs every 4 (four) hours as needed for wheezing or shortness of breath for up to 15 days 8.5 g 0 ??? cefuroxime (CEFTIN) 500 mg tablet Take 1 tablet (500 mg total) by mouth 2 (two) times a day for7 days 14 tablet 0 No current facility-administered medications for this visit. PHYSICAL EXAM Nose: not congested Lungs: No respiratory distress, cough absent Neurologic: Alert and oriented x 3, at baseline Psychiatric: mood normal, behavior at baseline Physical exam is limited due to telemedicine appointment ECT GEOPHYSICIST documented in this encounter Miscellaneous Notes * Assessment & Plan Note - Francoise Pederson PA - 01/21/2021 3:33 PM PROJECT GEOPHYSICIST Associated Problem(s): Acute bronchitis (Resolved 02/10/2021) Contact our office if no improvement after treatment, develop new symptoms or feeling worse at any point. ECT GEOPHYSICIST documented in this encounter Plan of Treatment Not on file documented as of this encounter Visit Diagnoses Diagnosis Acute bronchitis, unspecified organism- Primary documented in this encounter Care Teams School Teacher Relationship Specialty Start Date End Date Ronaldo Ulrich MD [address] [place] [address] PCP - General Internal Medicine 01/18/21 documented as of this encounter
--- OUTSIDE RECORDS SUMMARY | 2024-02-10 01:47 | XMS_ITS | Encounter Summary ---
Author Organization [facility] Address [address] [address] Care Team Providers Care Envelope Addresser Name Role Phone Ronaldo Ulrich MD Primary Care Provider + Reason for Visit * Reason Onset Date Comments ? regarding medication 01/18/2021 Encounter Details Date Type Department Care Team (Late st Contact Info) Description 01/18/2021 Telephone [facility] Primary Care [address] [place] [address] Unknown, Notinfile ? 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 CUTTING MACHINE OPERATOR * Telephone Encounter - Shari Honeycutt MA - 01/18/2021 10:23 AM PLUG CUTTING MACHINE OPERATOR LMOR to return call CUTTING MACHINE OPERATOR * Telephone Encounter - Ronaldo Ulrich MD - 01/18/2021 10:14 AM PLUG CUTTING MACHINE OPERATOR Hold Xulophy the morning of the procedure. Continue humolog SSI per blood sugars CUTTING MACHINE OPERATOR * Telephone Encounter - Shari Honeycutt MA - 01/18/2021 10:10 AM PLUG CUTTING MACHINE OPERATOR Pt called stating that he is scheduled for a colonoscopy tomorrow and is wanting to know what he should do regarding his insulin CUTTING MACHINE OPERATOR documented in this encounter Plan of Treatment Not on file documented as of this encounter Visit Diagnoses Not on filedocumented in this encounter Care Teams Envelope Addresser Relationship Specialty Start Date End Date Ronaldo Ulrich MD [address] [place] [address] PCP - General Internal Medicine 01/18/21 documented as of this encounter
--- OUTSIDE RECORDS SUMMARY | 2024-02-10 01:47 | XMS_ITS | Encounter Summary ---
Author Organization [facility] Healthcare Address [address] [place] [address] Care Team Providers Care Plate Worker Name Role Phone Ronaldo Ulrich MD Primary Care Provider + Reason for Visit * Cardiology (Routine) - Closed Specialty Diagnoses / Procedures Referred By Contac t Referred To Contact Diagnoses Hypertensive heart disease without heart failure Atherosclerosis of aorta (HCC) Procedures Transthoracic Echo Complete W Doppler/CF Echo Exercise Stress W Doppler/CF Radha Jiménez MD [facility] [address] [place] [address] Phone: tel: fax: [facility] Referral ID Status Reason Start Date Expiration Date Visits Re quested Visits Authorized [id number] Closed 06/07/2021 07/22/2021 1 1 Encounter Details Date Type Department Care Team (Latest Contact Info) Description 07/22/2021 10:58 AM CDT - 07/22/2021 11:59 PM CDT Hospital Encounter [facility] OP Cardiac Testing [address] [facility] 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 Gender Identity Not on file Sexual Orientation [...] 3 kit 3 05/08/2020 miscellaneous medical supply [facility] [place] C-Pap vit C,Q-Yz-usxqc-lut ein-zeaxan 250-90-40-1 mg capsule Take 1 capsule by mouth daily vitamin B complex capsule Take 1 capsule by mouth daily acyclovir (ZOVIRAX) 400 mg tablet Take 1 tablet (400 mg total) by mouth 2 (two) times a day 180 tablet 1 05/24/2021 08/21/19 22 albuterol HFA (ProAir HFA) 90 mcg/actuation inhalerIndicatio ns:Acute bronchitis, unspecified organism Inhale 2 puffs every 4 (four) hours as needed for wheezing or shortness of breath for up to 15 days 8.5 g 01/21/2021 03/22/19 24 dapagliflozin (FARXIGA) 5 mg tabletIndication s: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) Take 1 tablet (5 mg total) by mouth daily 90 tablet 1 02/16/2021 07/27/19 22 docusate sodium (COLACE) 100 mg capsuleIndicatio ns:constipation Take 1 capsule (100 mg total) by mouth daily 03/22/19 24 finasteride (PROSCAR) 5 mg tabletIndication s:Benign prostatic hyperplasia without lower urinary tract symptoms TAKE 1 TABLET BY MOUTH DAILY 90 tablet 1 06/29/2021 07/28/19 22 insulin lispro (HumaLOG) 100 unit/mL pen for injection USE FOLLOWS: 131-150 2 UNITS, 151-180 4 UNITS, 181-200 6 UNITS, 201-230 8 UNITS, 231-250 10 UNITS MAX DOSE 30 UNITS PER DAY 30 mL 1 12/30/2020 08/21/19 22 irbesartan-hydro CHLOROthiazide (AVALIDE) 300-12.5 mg per tablet TAKE 1 TABLET BY MOUTH DAILY 90 tablet 1 06/29/2021 07/28/19 22 metFORMIN (GLUCOPHAGE) 500 mg tablet Take 1 tablet (500 mg total) by mouth 2 (two) times a day with meals 180 tablet 1 02/24/2021 08/21/19 22 metoprolol tartrate (LOPRESSOR) 50 mg immediate release tabletIndication s:Hypertensive heart disease without heart failure,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 TAKE 2 TABLETS BY MOUTH AT LUNCH AND 1 TABLET AT BEDTIME 270 tablet 1 05/19/2021 08/21/19 22 simvastatin (ZOCOR) 40 mg tablet Take 1 tablet (40 mg total) by mouth nightly 90 tablet 1 02/24/2021 08/21/19 22 Xultophy 100/3.6 100 unit-3.6 mg /mL (3 mL) insulin pen penIndications:T ype 2 diabetes mellitus with circulatory disorder (HCC) INJECT 50 UNITS SUBCUTANEOUSLY DAILY 45 mL 1 04/19/2021 08/21/19 22 documented as of this encounter Discharge Disposition Disposition Code Departure Means Destination Discharge to home or self care documented in this encounter Plan of Treatment Not on file documented as of this encounter Procedures Procedure Name Priority Date/Time Associated Diagnosis Comments TRANSTHORACIC ECHO (TTE) COMPLETE W DOPPLER/CF WO CONTRAST Routine 07/22/2021 12:54 PM CDT Hypertensive heart disease without heart failure Atherosclerosis of aorta (CMS/HCC) (HCC) documented in this encounter Results * TRANSTHORACIC ECHO (TTE) COMPLETE W DOPPLER/CF WO CONTRAST (07/22/2021 12:54 PM CDT) Anatomical Region Laterality Modality Ultrasound 07/22/2021 11:4 3 AM CDT Narrative 07/22/2021 1:03 PM CDT [facility] [address] [place] [id number] ECHOCARDIOGRAM Patient Name: AYDEN SANTOS : 10-25-1946 Study Date: 07/22/2021 11:43:43 AM Gender: M Tech: TC Location: [facility] Ref.Provider: RADHA JIMÉNEZ Height(Cm): 178 BSA: 2.44 Weight(Kg): 120.2 BP: 184/72Order Provider: RADHA JIMÉNEZ - Procedures: Echocardiographic Report: Transthoracic Echocardiogram with complete 2D, M-Mode, Spectral and Color Flow Doppler examination. Indications: Hypertension. Measurements: 2D/M Mode ? Doppler ? Measurement ?Value ?Normal Range ?Measurement ?Value ?Normal Range ? IVSd 2D ?1.05 ? [ 0.60 - 0.90 ] cm ?AV Peak Artie ?1.6 ?[ 1.0 - 1.7 ] m/s ? LVIDd 2D ? 3.57 ? [ 4.20 - 5.90 ] cm ?AV Peak PG ? 10 ? [ 2 - 9 ] mmHg ? LVIDs 2D ? 2.19 ? [ 2.30 - 3.90 ] cm ?AV Mean PG ? 7 ?[ 2 - 4 ] mmHg ? LVPWd 2D ? 0.96 ? [ 0.60 - 1.00 ] cm ?AV VTI ? 30.5 ? cm ? LA Dimen 2D ?3.90 ? cm ?VELIA VTI ?3.1 ?[ 2.0 - 4.0 ] cm2 ? AR Diam 2D ? 3.40 ? cm ?LVOT Peak Artie ?1.25 ? [ 0.70 - 1.10 ] m/s ? TAPSE ?1.50 ? [ 1.60 - 3.00 ] cm ?LVOT Diam ?2.2 ?[ 1.7 - 2.1 ] cm ?LVOT Peak PG ? 6 ?[ 2 - 6 ] mmHg ?LVOT VTI ? 25.9 ? [ 20.0 - 30.0 ] cm ?MV Peak PG ? 4 ?[ 1 - 10 ] mmHg ?MV Mean PG ? 2 ?[ <= 5 ] mmHg ?MV E Peak Artie ?0.6 ?[ 0.6 - 1.3 ] m/s ?MV A Peak Artie ?1.0 ?[ 1.0 - 1.2 ] m/s ?MV PHT ? 61.0 ? [ 20.0 - 100.0 ] ms ?MV Decel Time ?165.4 ?[ 104.0 - 258.0 ] ms ?MVA PHT ?3.6 ?[ 2.0 - 4.0 ] ms ?MV E/A Ratio ? 0.6 ?PV Peak Artie ?1.4 ?[ 0.4 - 0.8 ] m/s ?PV Peak PG ? 8 ?mmHg ?Lat E` Artie ? 0.10 ? [ 0.10 - 0.15 ] m/s ?Sept E' Artie ?0.06 ? [ 0.08 - 0.15 ] m/s ?E/E` ? 6.00 ?RV S' ?0.16 ? m/s ? - Findings: Study Quality: Technically good study. BP: Blood pressure: 184/72 mmHg. Left Ventricle: Normal global and regional left ventricular systolic function. Ejection Fraction is estimated at 70 %. Normal left ventricular cavity size. Mild concentric left ventricular hypertrophy. Right Ventricle: Normal right ventricular systolic function. Normal right ventricular size. Left Atrium: The left atrium is normal in size. Right Atrium: The right atrium is normal in size. Atrial Septum: Normal appearing atrial septum. Mitral Valve: Normal mitral valve appearance and function. Mild mitral valve regurgitation. Aortic Valve: Aortic valve cusps appear mildly sclerotic. Tricuspid Valve: Normal tricuspid valve appearance and function. Mild tricuspid regurgitation. Pulmonic Valve: Normal appearance and function of the pulmonic valve. Pericardium: No significant pericardial effusion. Aortic Root and Aorta: Normal caliber aortic root. Aortic Arch: Normal caliber aortic arch. IVC: Normal appearance of the inferior vena cava. Conclusions: 1. Normal global and regional left ventricular systolic function. Ejection Fraction is estimated at 70 %. Normal left ventricular cavity size. Mild concentric left ventricular hypertrophy. Electronically Signed By: Radha Jiménez MD, [facility] 2021-07-22 13:03:24 CDT CC: CC: Procedure Note Radha Jiménez MD - 07/22/2021 [facility] [address] [place] [address] ECHOCARDIOGRAM Patient Name: AYDEN SANTOSPatient ID: [id number] : [id number] Date: 07/22/2021 11:43:43 AM Gender: MAccession #: [id number] Tech: TCLocation: OPT Ref.Provider: RADHA JIMÉNEZHeight(Cm): 178 BSA: 2.44Weight(Kg): 120.2 BP: 184/72Order Provider: RADHA JIMÉNEZ - Procedures: Echocardiographic Report: Transthoracic Echocardiogram with complete 2D, M-Mode, Spectral and ColorFlow Doppler examination. Indications: Hypertension. Measurements: 2D/M Mode Doppler Measurement Value Normal Range Measurement ValueNormal Range IVSd 2D 1.05 [ 0.60 - 0.90 ] cm AV Peak Artie 1.6 [1.0 - 1.7 ] m/s LVIDd 2D 3.57 [ 4.20 - 5.90 ] cm AV Peak PG 10 [2 - 9 ] mmHg LVIDs 2D 2.19 [ 2.30 - 3.90 ] cm AV Mean PG 7 [2 - 4 ] mmHg LVPWd 2D 0.96 [ 0.60 - 1.00 ] cm AV VTI 30.5 cm LA Dimen 2D 3.90 cm VELIA VTI 3.1 [2.0 - 4.0 ] cm2 AR Diam 2D 3.40 cm LVOT Peak Artie 1.25 [0.70 - 1.10 ] m/s TAPSE 1.50 [ 1.60 - 3.00 ] cm LVOT Diam 2.2 [1.7 - 2.1 ] cm LVOT Peak PG 6 [2 - 6 ] mmHg LVOT VTI 25.9 [20.0 - 30.0 ] cm MV Peak PG 4 [1 - 10 ] mmHg MV Mean PG 2 [<= 5 ] mmHg MV E Peak Artie 0.6 [0.6 - 1.3 ] m/s MV A Peak Artie 1.0 [1.0 - 1.2 ] m/s MV PHT 61.0 [20.0 - 100.0 ] ms MV Decel Time 165.4 [104.0 - 258.0 ] ms MVA PHT 3.6 [2.0 - 4.0 ] ms MV E/A Ratio 0.6 PV Peak Artie 1.4 [0.4 - 0.8 ] m/s PV Peak PG 8mmHg Lat E` Artei 0.10 [0.10 - 0.15 ] m/s Sept E' Artie 0.06 [0.08 - 0.15 ] m/s E/E` 6.00 RV S' 0.16m/s - Findings: Study Quality: Technically good study. BP: Blood pressure: 184/72 mmHg. Left Ventricle: Normal global and regional left ventricular systolic function. EjectionFraction is estimated at 70 %. Normal left ventricular cavity size. Mild concentricleft ventricular hypertrophy. Right Ventricle: Normal right ventricular systolic function. Normal right ventricularsize. Left Atrium: The left atrium is normal in size. Right Atrium: The right atrium is normal in size. Atrial Septum: Normal appearing atrial septum. Mitral Valve: Normal mitral valve appearance and function. Mild mitral valveregurgitation. Aortic Valve: Aortic valve cusps appear mildly sclerotic. Tricuspid Valve: Normal tricuspid valve appearance and function. Mild tricuspidregurgitation. Pulmonic Valve: Normal appearance and function of the pulmonic valve. Pericardium: No significant pericardial effusion. Aortic Root and Aorta: Normal caliber aortic root. Aortic Arch: Normal caliber aortic arch. IVC: Normal appearance of the inferior vena cava. Conclusions: 1. Normal global and regional left ventricular systolic function. EjectionFraction is estimated at 70 %. Normal left ventricular cavity size. Mild concentricleft ventricular hypertrophy. Electronically Signed By: Radha Jiménez MD, [facility] 2021-07-22 13:03:24 CDT CC: CC: Radha Jiménez MD CV ECHO PROCEDURES Final R esult documented in this encounter Visit Diagnoses Diagnosis Hypertensive heart disease without heart failure Unspecified hypertensive heart disease without heart failure Atherosclerosis of aorta (HCC) Atherosclerosis of aorta documented in this encounter Care Teams Plate Worker Relationship Specialty Start Date End Date Ronaldo Ulrich MD [address] [place] [address] PCP - General Internal Medicine 01/18/21 documented as of this encounter
--- OUTSIDE RECORDS SUMMARY | 2024-02-10 01:47 | XMS_ITS | Encounter Summary ---
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 The recalled batches were from [employer]. Nothing inherently wrong with irbesartan. Would call pharmacy to see if his batch is affected. 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 He takes Irbesartan HCTZ 300/12.5mg. could we call different medication to [facility]. Can call him at [phone] documented in this encounter Plan of Treatment Not on file documented as of this encounter Visit Diagnoses Not on filedocumented in this encounter Care Teams Boiler Tube Reamer Relationship Specialty Start Date End Date Ronaldo Ulrich MD [address] [place] [address] PCP - General Internal Medicine 11/09/20 12/20/20 documented as of this encounter
--- OUTSIDE RECORDS SUMMARY | 2024-02-10 01:47 | XMS_ITS | Encounter Summary ---
Author Organization [facility] Healthcare Address [address] [place] [address] Care Team Providers Care Furnace Attendant Name Role Phone Ronaldo Ulrich MD Primary Care Provider + Encounter Details Date Type Department Care Team (Latest Contact Info) Description 01/19/2021 9:18 AM PROJECTION TECHNICIAN - 01/19/2021 1:23 PM PROJECTION TECHNICIAN Hospital Encounter [facility] Endoscopy [id number] [place] [address] Carson Roberts MD PhD [address] [place] [address] History of colon polyps Discharge Disposition: Discharge to home or self [...] on file Legal Sex Male 11:37 AM PROJECTION TECHNICIAN Gender Identity Not on file Sexual Orientation Not on file 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 Not on file documented as of this encounter Last Filed Vital Signs Vital Sign Reading Time Taken Comments Blood Pressure 135/62 01/19/2021 12:50 PM PROJECTION TECHNICIAN Pulse 77 01/19/2021 12:55 PM PROJECTION TECHNICIAN Temperature 36.1 ??C (97 ??F) 01/19/2021 12:25 PM PROJECTION TECHNICIAN Respiratory Rate 12 01/19/2021 12:55 PM PROJECTION TECHNICIAN Oxygen Saturation 94% 01/19/2021 12:55 PM PROJECTION TECHNICIAN Inhaled Oxygen Concentration - - Weight 121.6 kg (268 lb) 01/19/2021 9:45 AM PROJECTION TECHNICIAN Height 180.3 cm (5' 11 ) 01/19/2021 9:45 AM PROJECTION TECHNICIAN Body Mass Index 37.38 01/19/2021 9:45 AM PROJECTION TECHNICIAN documented in this encounter Discharge Diagnoses Diagnosis Encounter for screening for malignant neoplasm of colon - ENCOUNTER FOR SCREENING FOR MALIGNANT NEOPLASM OF COLON Personal history of colonic polyps - PERSONAL HISTORY OF COLONIC POLYPS Benign neoplasm of ascending colon - BENIGN NEOPLASM OF ASCENDING COLON Benign neoplasm of descending colon - BENIGN NEOPLASM OF DESCENDING COLON Diverticulosis of small intestine without perforation or abscess without bleeding - DIVERTICULOSIS OF SMALL INTESTINE WITHOUT PERFORATION OR ABSCESS WITHOUT BLEEDING Type 2 diabetes mellitus without complications (CMS/HCC) (HCC) - TYPE 2 DIABETES MELLITUS WITHOUT COMPLICATIONS Hyperlipidemia, unspecified - HYPERLIPIDEMIA, UNSPECIFIED Obstructive sleep apnea (adult) (pediatric) - OBSTRUCTIVE SLEEP APNEA (ADULT) (PEDIATRIC) Personal history of nicotine dependence - PERSONAL HISTORY OF NICOTINE DEPENDENCE 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 05/08/20 An Soto NP miscellaneous medical supply misc C-Pap Provider, MD Mitra Camarenaophdillan 100/3.6 100 unit-3.6 mg /mL (3 mL) insulin pen pen INJECT 50 UNITS SUBCUTANEOUSLY DAILY 01/18/21 Ronaldo Ulrich MD Review of Systems A pertinent, focused review of systems was completed and negative, except as noted above. OBJECTIVE: Vitals: Vitals: 01/19/21 1050 01/19/21 1105 01/19/21 1120 01/19/21 1135 BP: 160/72 (!) 180/80 (!) 175/78 170/76 Pulse: 79 79 81 85 Resp: 15 20 17 21 Temp: SpO2: 98% 95% 94% 93% [...] planned procedure for the reasons stated above. ECTION TECHNICIAN documented in this encounter Procedure Notes * Carson Roberts MD PhD - 01/19/2021 11:48 AM CSTAssociated Order(s): COLONOSCOPY ENDOSCOPY LAB Patient Name: Ayden Santos Procedure Date: 01/19/2021 11:48 AM Date of : 1945 Admit Type: Outpatient Age: 75 Gender: Male Attending MD: Carson Roberts MD, PHD Room: [facility] ENDOSCOPY ROOM 02 Note Status: Finalized [...] scope was passed under direct vision. The [id number] was introduced through the anus and advanced to the terminal ileum. The colonoscopy was performed without difficulty. The patient tolerated the procedure well. The quality of the bowel preparation was good. The quality of the bowel preparation was evaluated using the BBPS ([place] Bowel Preparation Scale) with scores of: Right [...] hours - Please call the Nurse Coordinator: [phone]. After hours, evening, nights, weekends and holidays - Please call the hospital six pack loader operator at and ask for the GI fellow deputy sheriff civil division. Attending Participation: I personally performed the entire procedure. Electronically signed by Carson Roberts MD. Carson Roberts MD, PHD 01/19/2021 12:22:26 PM Number of Addenda: 0 Note Initiated On: 01/19/2021 11:48 AM ECTION TECHNICIAN documented in this encounter Miscellaneous Notes * Perioperative Nursing Note - Octavia Green RN - 01/19/2021 1:[address] Roberts spoke with patient re: findings. Discharge instructions given to patient ( and spouse by phone)- questions answered, understanding expressed. Tolerating po w/o problems. ECTION TECHNICIAN * Pre-Procedure Instructions - Mona Allen RN - 01/18/2021 3:47 PM PROJECTION TECHNICIAN Please follow any and all instruction you were given re:Bowel prep When you arrive, please come to [facility] hospital entrance. As you enter there [...] mask at all times If this person(your crude oil driver)chooses not to come inside or will be picking you up after your procedure with anesthesia, for your safety we will confirm your ride home by phone call prior to your procedure start time ECTION TECHNICIAN documented in this encounter Plan of Treatment Not on file documented as of this encounter Procedures Procedure Name Priority Date/Time Associated Diagnosis Comments POCT GLUCOSE DEVICE Routine 01/19/2021 1 2:41 PM PROJECTION TECHNICIAN SURGICAL PATHOLOGY Routine 01/19/2021 12 :02 PM PROJECTION TECHNICIAN History of colon polyps COLONOSCOPY 01/19/2021 11:48 AM PROJECTION TECHNICIAN COLON REMOVAL SNARE 01/19/2021 1 1:46 AM PROJECTION TECHNICIAN History of colon polyps POCT GLUCOSE DEVICE Routine 01/19/2021 1 0:19 AM PROJECTION TECHNICIAN documented in this encounter Results * POCT glucose (01/19/2021 12:41 PM PROJECTION TECHNICIAN) Glucose, POC 156 70 - 199 mg/dL T[facility]LOR ZUNIGA Comment: Interpretive Data Glucose is assumed to be non-fasting. Fasting Glucose reference ranges are: 0 - 150 years: ??70 mg/dL - 99 mg/dL Current interpretive data was last revised on 2013. POC Performer [id number] [facility] POC Device Number [id number] TAYLOR JONESWALEX Blood 01/19/2021 12:4 1 PM PROJECTION TECHNICIAN 01/19/2021 12:41 PM PROJECTION TECHNICIAN us Carson Roberts MD PhD LAB POCT ORDERABLES - DEV ICE Final Result [facility] [address] [facility]. [place] [address] * Surgical pathology (01/19/2021 12:02 PM PROJECTION TECHNICIAN) Tissue (Polyp(s), colon/colorectal, esophageal, gastric) 01/19/2021 12:02 PM PROJECTION TECHNICIAN Tissue (Polyp(s), colon/colorectal, esophageal, gastric) 01/19/2021 12:12 PM PROJECTION TECHNICIAN Narrative PATHOLOGY [facility] - 01/20/2021 10:21 AM PROJECTION TECHNICIAN EPIC results best viewed via link to PDF [facility] [place] [address] Note to Patients: This report may contain [...] Gender: ??M : ??1945 (Age: 75) Address: ?? [place], [place] ??[address] Hospital #: ??[id number] Taken:01/19/2021 Received:01/19/2021 Reported: 01/20/2021 Patient Type: WC SDS Client ?[facility] Service: Gastro Location: [facility] Physician(s): ??Carson Roberts M.D. Dr. Ronaldo Ulrich M.D. Diagnosis: A. Large intestine, ascending colon [...] interpretation for this case was performed at [facility], Department of Surgical Pathology, [address] [facility], [id number], ??[place], [place] ??[address] ?? CLIA # [id number] Myra Mccann M.D. History: The patient is [...] ??Labeled B1. ??Jar 0. cnewho/01/19/2021 14:13 PA(s): ERICA Rodriguez, CT (ASCP) By this signature, I attest that the above diagnosis is based upon my personal examination of the slides(and/or other material). Addenda/Procedures The performance characteristics of some immunohistochemical stains, fluorescence in-situ hybridization tests and immunophenotyping by flow cytometry cited in this report (if any) were determined by the Surgical Pathology and Flow Cytometry Departments at [facility] as part of an ongoing quality engineer program and in compliance with federally mandated [...] Surgical Pathology and Flow Cytometry Departments of [facility]. ??It has not been cleared or approved by the U. S. Food and Drug Administration. IMAGES AND SCANNED DOCUMENTS, IF INCLUDED, ONLY VIEWABLE IN PDF VERSION OF REPORT us Carson Roberts MD PhD LAB PATHOLOGY ORDERABLES Final Result PATHOLOGY [facility] [phone] * COLONOSCOPY (01/19/2021 11:48 AM PROJECTION TECHNICIAN) Anatomical Region Laterality Modality Other Narrative Procedure Note Carson Roberts MD PhD - 01/19/2021 11:48 AM CST ENDOSCOPY LAB Patient Name: Ayden Santos Procedure Date: 01/19/2021 11:48AM Date of : 1945 Admit Type: Outpatient Age: 75 Gender: Male Attending MD: Carson Roberts MD,PHD Room: [facility] ENDOSCOPY ROOM 02 Note Status: Finalized [...] The scope was passed under direct vision.The [id number] was introduced through the anusand advanced to [...] During normal business hours - [facility] [place] Coord[facility]: [phone]. After hours, evening, nights, weekends and holidays- Please call the hospital six pack loader operator at and ask for the GI fellow deputy sheriff civil division. Attending Participation: I personally performed the entire procedure. Electronically signed by Carson Roberts MD. Carson Roberts MD, PHD 01/19/2021 12:22:26 PM Number of Addenda: 0 Note Initiated On: 01/19/2021 11:48 AM us Carson Roberts MD PhD ENDOSCOPY PROCEDURES Anya l Result * POCT glucose (01/19/2021 10:19 AM PROJECTION TECHNICIAN) Glucose, POC 162 70 - 199 mg/dL TAYLOR ZUNIGA Comment: Interpretive Data Glucose is assumed to be non-fasting. Fasting Glucose reference ranges are: 0 - 150 years: ??70 mg/dL - 99 mg/dL Current interpretive data was last revised on 2013. POC Performer [id number] TAYLOR ZUNIGA POC Device Number [id number] TAYLOR ZUNIGA Blood 01/19/2021 10:1 9 AM PROJECTION TECHNICIAN 01/19/2021 10:19 AM PROJECTION TECHNICIAN us Carson Roberts MD PhD LAB POCT ORDERABLES - DEV ICE Final Result [facility] [id number] [address] Department [place] [address] documented in this encounter Visit Diagnoses Diagnosis History of colon polyps- Primary documented in this encounter Admitting Diagnoses Diagnosis History of colon polyps documented in this encounter Administered Medications Inactive Administered Medications - up to 3 most recent administrations Medication Order MAR Action Action Date Dose Rate Site albuterol 2.5 mg/0.5 mL nebulizer solution 2.5 mg 2.5 mg, nebulization, Once (physical therapy director), On Mon01/19/21 at 1115, For 1 dose, Pre-Op Given 01/19/2021 10:47 AM PROJECTION TECHNICIAN 2.5 mg ipratropium (ATROVENT) 0.02 % nebulizer solution 0.5 mg 0.5 mg, nebulization, Once (physical therapy director), On Mon01/19/21 at 1115, For 1 dose, Pre-Op Given 01/19/2021 10:47 AM PROJECTION TECHNICIAN 0.5 mg ondansetron (ZOFRAN) injection 4 mg [...] Pre-Procedure (GI) Rate/Dose Verify 01/19/2021 11:46 AM PROJECTION TECHNICIAN 30 mL/hr New Bag 01/19/2021 10:23 AM PROJECTION TECHNICIAN 30 mL/hr 30 mL/hr documented in this encounter Discontinued Medications Medication Sig Discontinue Reason Start Date End Da te polyethylene glycol (GoLYTELY) 236-22.74-6.74 -5.86 gram solution Please follow instructions mailed from our office for your colonoscopy prep Stop Taking at Discharge 11/25/2020 01/19/2021 documented as of this encounter Active and Recently Administered Medications Times are shown in PROJECTION TECHNICIAN. 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 (physical therapy director), On Mon01/19/21 at 1115, For 1 dose, Pre-Op 1047 (Given - Provid er: April Edmondson RRT) ipratropium (ATROVENT) 0.02 % nebulizer solution 0.5 mg (COMPLETED)(Linked Group 1) 0.5 mg, nebulization, Once (physical therapy director), On Mon01/19/21 at 1115, For 1 dose, Pre-Op 1047 (Given - Provid er: April Edmondson RRT) Continuous Medication Order 01/17/2021 01/18/2021 01/19/2021 sodium [...] (COMPLETED)Jump to med 2.5 mg, nebulization, Once (physical therapy director), On Mon01/19/21 at 1115, For 1 dose, Pre-Op And ipratropium (ATROVENT) 0.02 % nebulizer solution 0.5 mg (COMPLETED)Jump to med 0.5 mg, nebulization, Once (physical therapy director), On Mon01/19/21 at 1115, For 1 dose, Pre-Op documented in this encounter Orders Medications Ordered That Dougie ht Not Have Been Administered Count Last Ordered Date First Ordered Date ondansetron (ZOFRAN) injection 4 mg 1 01/19 sodium chloride 0.9% flush 0.5-20 mL 1 12/23 documented in this encounter Care Teams Furnace Attendant Relationship Specialty Start Date End Date Ronaldo Ulrich MD [address] [place] [address] PCP - General Internal Medicine 01/18/21 documented as of this encounter
--- OUTSIDE RECORDS SUMMARY | 2024-02-10 01:47 | XMS_ITS | Encounter Summary ---
Author Organization [facility] Address [address] [place] [address] Care Team Providers Care Edger Hand Name Role Phone Ronaldo Ulrich MD Primary Care Provider + Encounter Details Date Type Department Care Team (Late st Contact Info) Description 01/19/2021 11:46 AM MELT HOUSE DRAG OPERATOR Anesthesia Event [facility] [address] [place] [address] Nigel Diaz MD [address] [facility] [address] [place] [address] Anesthesia Record Procedure Summary Procedure Name Responsible Anesthesiologist Anesthesia Start Time Anesthesia Stop Time COLON REMOVAL SNARE (Colon) Nigel Diaz MD 01/19/21 1146 01/19/21 1226 Events Date Time Event Comment 01/19/2021 1026 1146 AN Equip Check 1146 An Start 1146 An Start Data 1146 In Room 1156 Proc Start 1157 Start Supplemental O2 1157 Patient Positioned Laterally 1157 An Induction The patient was reevaluated immediately before moderate or deep sedation use and before anesthesia induction. 1157 Anesthesia Ready 1217 Proc Fin 1222 an stop data 1223 Out of Room 1226 Handoff to RN I completed my handoff to the receiving nurse during which we: 1. Patient identified 2. Responsible provider identified 3. Pertinent medical history reviewed 4. Procedure type and surgical course discussed 5. Intraoperative anesthetic management and any significant issues discussed 6. Expectations and concerns for postop period discussed 7. Questions solicited from receiving nurse 8. Patient disposition at the time of handoff: PACU 1226 An Stop Meds Name Total propofol 80 mg propofol 260.22 mg fentaNYL PF 25 mcg Lidocaine IV 2 % 5 mL sodium chloride 0.9% infusion 100 mL * Agents Name O2 * Blood No blood administrations on file. 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 Not on file documented as of this encounter OR Notes * Anesthesia Postprocedure Evaluation - Nigel Diaz MD - 01/19/2021 2:45 PM CST Patient: Ayden Santos Procedure Summary Date: 11/30/21 Room / Location: [facility] ROOM [facility] Anesthesia Start: 1146 Anesthesia Stop: 1226 Procedure: COLON REMOVAL SNARE (N/A Colon) Diagnosis: History of colon polyps (History of colon polyps [Z86.010]) Providers: Carson Roberts MD PhD Responsible Provider: Nigel Diaz MD Anesthesia Type: general ASA Status: 3 Anesthesia Type: general Last vitals BP 135/62 Pulse 77 Temp 36.1 ??C (97 ??F) Resp 12 SpO2 94% Anesthesia Post Evaluation Patient location during evaluation: PACU Patient participation: complete - patient participated Level of consciousness: fully awake Pain score: 0 Pain management: adequate Airway patency: adequate Evidence of recall: no Cardiovascular status: hemodynamically stable and acceptable Respiratory status: acceptable and room air Hydration status: acceptable Pt is: normothermic Nausea/Vomiting status: none No complications documented. HOUSE DRAG OPERATOR * Anesthesia Preprocedure Evaluation - Nigel Diaz MD - 01/19/2021 10:26 AM CST Images from the original note were not included. Anesthesia Evaluation Ayden Santos is a 75 y.o. male Procedure(s): COLONOSCOPY Pre-Op Diagnosis Codes: * History of colon polyps [Z86.010] HISTORY Past Medical History Respiratory - wheezing. Patient Active Problem List Diagnosis ??? Herpes simplex ??? Type 2 diabetes mellitus with circulatory disorder (CMS/HCC) (HCC) ??? Hypertensive heart disease without heart failure ??? DDD (degenerative disc disease), cervical ??? Family history of colon cancer ??? 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 2 diabetes mellitus (CMS/HCC) (HCC) ??? Vitamin D deficiency ??? Bleeding external hemorrhoids ??? Morbid obesity with BMI of 45.0-49.9, adult (CMS/HCC) (HCC) ??? Renal cyst, acquired, right ??? DDD (degenerative disc disease), thoracolumbar ??? Screening for colon cancer ??? Coronary artery disease involving [place] coronary artery of [place] heart without angina pectoris ??? Abnormal findings on diagnostic imaging of lung ??? Medicare annual wellness visit, subsequent ??? Atherosclerosis of aorta (CMS/HCC) (HCC) ??? Obstructive sleep apnea ??? 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 mellitus (CMS/HCC) (HCC) ??? Screening for prostate cancer ??? Colon polyps ??? Encounter for Medicare annual wellness exam ??? Preoperative examination ??? Sciatica of right side ??? Benign prostatic hyperplasia without lower urinary tract symptoms ??? Diabetic nephropathy associated with type 2 diabetes mellitus (HCC) ??? History of colon polyps Past Medical History: Diagnosis Date ??? Abnormal [...] 2006 Elevated PSA: survellience biopsy ??? TONSILLECTOMY Allergies Allergen Reactions ??? Amlodipine Edema ??? Royce Inhibitors Cough ??? Farxiga [Dapagliflozin] Diarrhea Taking? Last Dose Start Date End Date Provider acyclovir (ZOVIRAX) 400 mg tablet 01/19/2021 12/11/20 -- Ronaldo Ulrich MD Take 1 tablet (400 mg total) by mouth 2 (two) times a day aspirin 81 mg chewable tablet 01/19/2021 04/20/20 04/20/21 An Soto NP Take 1 tablet (81 mg total) by mouth daily blood glucose diagnostic (ONETOUCH VERIO) strip 11/21/18 -- Xena Valencia NP smbg bid ac cholecalciferol (VITAMIN D-3) 2,000 unit capsule Past Week -- -- Migue Coy MD coenzyme Q10 (COQ-10) 100 mg capsule 01/18/2021 04/11/16 -- Farrukh Jiménez MD take 3 by Oral route every evening docusate sodium (COLACE) 100 mg capsule 01/18/2021 -- -- Migue Coy MD finasteride (PROSCAR) 5 mg tablet 01/19/2021 11/09/20 -- Ronaldo Urlich MD Take 1 tablet (5 mg total) by mouth daily flash glucose sensor (FreeStyle Erick 2 Sensor) kit 05/08/20 -- An Soto, VASQUEZ Change sensor every two weeks. insulin lispro (HumaLOG) 100 unit/mL pen for injection 01/18/2021 12/30/20 -- Ronaldo Ulrich MD USE FOLLOWS: 131-150 2 UNITS, 151-180 4 UNITS, 181-200 6 UNITS, 201-230 8 UNITS, 231-250 10 UNITS MAX DOSE 30 UNITS PER DAY Notes: Requesting 1 year supply irbesartan-hydroCHLOROthiazide (AVALIDE) 300-12.5 mg per tablet 01/19/2021 08/07/20 -- JohnT. Do MD TAKE 1 TABLET BY MOUTH DAILY Notes: Requesting 1 year supply metFORMIN (GLUCOPHAGE) 500 mg tablet 01/18/2021 09/17/20 09/17/21 An Soto NP Take 1 tablet (500 mg total) by mouth 2 (two) times a day with meals metoprolol tartrate (LOPRESSOR) 50 mg immediate release tablet 01/19/2021 11/09/20 -- Rnoaldo Ulrich MD TAKE 2 TABLETS BY MOUTH AT LUNCH AND 1 TABLET AT BEDTIME Notes: Requesting 1 year supply miscellaneous medical supply misc -- -- Provider, MD Migue polyethylene glycol (GoLYTELY) 236-22.74-6.74 -5.86 gram solution 01/19/2021 11/25/20 -- Carson Roberts MD PhD Please follow instructions mailed from our office for your colonoscopy prep simvastatin (ZOCOR) 40 mg tablet 01/18/2021 05/14/20 -- Rickey Do MD TAKE 1 TABLET BY MOUTH AT NIGHT Notes: Requesting 1 year supply vit C,I-Tm-ywhju-lutein-zeaxan 250-90-40-1 mg capsule Past Week -- -- Migue Coy MD vitamin B complex capsule Past Week -- -- Migue Coy MD Xultophy 100/3.6 100 unit-3.6 mg /mL (3 mL) insulin pen pen 01/18/21 -- Ronaldo Ulrich MD INJECT 50 UNITS SUBCUTANEOUSLY DAILY Notes: Requesting 1 year supply Current Facility-Administered Medications: ??? ondansetron (ZOFRAN) injection 4 mg, 4 mg, intravenous, Q6H PRN ??? sodium chloride 0.9% flush 0.5-20 mL, 0.5-20 mL, intra-catheter, PRN ??? sodium chloride 0.9% infusion, 30 mL/hr, intravenous, Continuous, Last Rate: 30 mL/hr at 01/19/21 1023, 30 mL/hr at 01/19/21 1023 Social History Tobacco Use Smoking Status Former Smoker ??? Packs/day: 1.00 ??? Years: 35.00 ??? Pack years: 35.00 ??? Types: Cigarettes ??? Quit date: 1982 ??? Years since quittin.9 Smokeless Tobacco Never Used Tobacco Comment Smoking History Packs/day: 1 Packs Substance and Sexual Activity Alcohol Use Yes Substance and Sexual Activity Drug Use No Family History Problem Relation Age of Onset ??? Coronary artery disease Father Coronary artery disease; ??? Alzheimer's disease Mother ??? Heart attack Paternal Grandmother ??? Colon cancer Paternal Grandfather Vitals: 01/19/21 0945 Temp: 36.3 ??C (97.3 ??F) PT: No results found for requested labs within last 720 hours. INR: No results found for requested labs within last 720 hours. APTT: No results found for requested labs within last 720 hours. Hgb A1C: No results found for requested labs within last 720 hours. CBC RBC: No results found for requested labs within last 720 hours. RDW: No results found for requested labs within last 720 hours. MCHC: No results found for requested labs within last 720 hours. MCH: No results found for requested labs within last 720 hours. MCV: No results found for requested labs within last 720 hours. Hct: No results found for requested labs within last 720 hours. Hgb: No results found for requested labs within last 720 hours. WBC: No results found for requested labs within last 720 hours. MPV: No results found for requested labs within last 720 hours. Platelets: No results found for requested labs within last 720 hours. RDW CV: No results found for requested labs within last 720 hours. RDW Sd: No results found for requested labs within last 720 hours. BMP Glucose: 01/19/2021: 162 mg/dL Calcium: No results found for requested labs within last 720 hours. Sodium: No results found for requested labs within last 720 hours. Potassium: No results found for requested labs within last 720 hours. CO2: No results found for requested labs within last 720 hours. Chloride: No results found for requested labs within last 720 hours. BUN: No results found for requested labs within last 720 hours. Creatinine: No results found for requested labs within last 720 hours. DOS Physical Exam Medical history, medications, and allergies reviewed. Attestation: This PAT evaluation Airway Exam: Mallampati: III Cervical ROM: FROM Cardiovascular Exam: Rate: regular Rhythm: regular Pulmonary Exam: Wheezing, bilat Anesthesia Plan ASA 3 My patient is approved for the Anesthesia Controlled Medication protocol when under care of a WIRE INSERTER Planned anesthesia: General Informed Consent: Anesthesia plan and risks discussed with patient. Plan and Consent Comments: M obesity, minimal CAD, PETE; pt reports productive cough with wheezing for past 3 weeks; symptoms improving; sputum production decreasing and slleeps through the night with CPAP; combivent tx Consent and Attending signature: I and/or my designee have discussed the anesthesia plan, benefits, possible alternatives, parental presence at time of induction (if indicated), and clinically relevant risks that may include dental injury, unintentional awareness, and/or other complications. The patient and/or parent/legal guardian understand, and agree to proceed. All questions answered. HOUSE DRAG OPERATOR HOUSE DRAG OPERATOR documented in this encounter Plan of Treatment Not on file documented as of this encounter Visit Diagnoses Not on filedocumented in this encounter Administered Medications Inactive Administered Medications - up to 3 most recent administrations Medication Order MAR Action Action Date Dose Rate Site fentaNYL (SUBLIMAZE) preservative free injection intravenous, As needed, Starting on Mon01/19/21 at 1159, Anesthesia Intra-op Given 01/19/2021 11:59 AM MELT HOUSE DRAG OPERATOR 25 mcg lidocaine (XYLOCAINE) 20 mg/mL (2 %) injection intravenous, As needed, Starting on Mon01/19/21 at 1157, Anesthesia Intra-op, Indications: Administration of Local AnesthesiaIndications:Ad ministration of Local Anesthesia Given 01/19/2021 11:57 AM MELT HOUSE DRAG OPERATOR 5 mL propofoL (DIPRIVAN) 10 mg/mL IV intravenous, Continuous PRN, Starting on Mon01/19/21 at 1157, Anesthesia Intra-op Rate/Dose Change 01/19/2021 12:03 PM MELT HOUSE DRAG OPERATOR 100 mcg/kg/min 72.96 mL/hr New Bag 01/19/2021 11:57 AM MELT HOUSE DRAG OPERATOR 140 mcg/kg/min 102.144 mL/hr propofoL (DIPRIVAN) 10 mg/mL IV intravenous, As needed, Starting on Mon01/19/21 at 1157, Anesthesia Intra-op Given 01/19/2021 11:57 AM MELT HOUSE DRAG OPERATOR 80 mg sodium chloride 0.9% infusion 30 mL/hr, intravenous, Continuous, Starting on Mon01/19/21 at 1030, Pre-Procedure (GI) Rate/Dose Verify 01/19/2021 11:46 AM MELT HOUSE DRAG OPERATOR 30 mL/hr New Bag 01/19/2021 10:23 AM MELT HOUSE DRAG OPERATOR 30 mL/hr 30 mL/hr documented in this encounter Care Teams Edger Hand Relationship Specialty Start Date End Date Ronaldo Ulrich MD [address] [place] [address] PCP - General Internal Medicine 01/18/21 documented as of this encounter
--- OUTSIDE RECORDS SUMMARY | 2024-02-10 01:48 | XMS_ITS | Encounter Summary ---
Author Organization [facility] Address [address] [place] [address] Care Team Providers Care Flying Teacher Name Role Phone Rickey Do MD Primary Care Provider [phone] Reason for Visit * Reason Onset Date Comments Dr. Do-medical question 09/24/2020 Encounter Details Date Type Department Care Team (Late st Contact Info) Description 09/24/2020 Telephone [facility] [address] [facility] [address] [place] [address] Rickey Do MD [address] [facility] [address] [place] [id number] Dr. 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 Pt said that if it don't work out he will come and see Dr. Strange. * Telephone Encounter - Rickey Do MD - 09/29/2020 8:[address] Ady Fisher * Telephone Encounter - Lexis Macedo - 09/29/2020 12:57 PM CDT Pt is request a PCP recommendation in [place]. * Telephone Encounter - Alfie Anand - 09/29/2020 12:45 PM CDT Call Back-Sending Message Caller's Concern: Patient calling back to get recommendation for [place] dr since Dr. Do will be leaving soon. Patient was supposed to get a call back and never did. Please call patient with information. Caller's Callback #: [phone] * Telephone Encounter - Mary Lou Avilez MA - 09/24/2020 11:13 AM CDT Pt requesting a recommendation for a PCP ([facility] affiliate) in [place]. * Telephone Encounter - Nohemi Baker - 09/24/2020 8:55 AM CDT See note and please assist. * Telephone Encounter - Lidia Parra - 09/24/2020 8:46 AM CDT General Medical Question/Miscellaneous-Sent Message: Caller's Concern: Patient called stating he recently saw An and he had asked for a recommendation for a [facility] PCP in [place]? He was calling back because he had not received that information. Please advise. Caller's Callback #: [phone] (H) Did you relay expectation for processing (up to 24 hours)? yes documented in this encounter Plan of Treatment Not on file documented as of this encounter Visit Diagnoses Not on filedocumented in this encounter Care Teams Flying Teacher Relationship Specialty Start Date End Date Rickey Do MD PCP - General 05/20/16 11/08/20 documented as of this encounter
--- OUTSIDE RECORDS SUMMARY | 2024-02-10 01:48 | XMS_ITS | Encounter Summary ---
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 Gender Identity Not on file Sexual Orientation Not on file 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 Not on file documented as of this encounter Ordered Prescriptions Prescription Sig Dispense Quantity Refills Last Filled Start Date End Date insulin lispro (HumaLOG) 100 unit/mL pen for injectionIndication s:type 2 diabetes mellitus 131-150 2 units, 151-180 4 units, 181-200 6 units, 201-230 8 units, 231-250 10 units Max dose 30 units per day 11/16/2020 11/19/2020 documented in this encounter Miscellaneous Notes * Telephone Encounter - Shari Honeycutt MA - 11/16/2020 3:59 PM CDT Update sliding scale documented in this encounter Plan of Treatment Not on file documented as of this encounter Visit Diagnoses Not on filedocumented in this encounter Discontinued Medications Medication Sig Discontinue Reason Start Date End Da te insulin lispro (HumaLOG KwikPen Insulin) 100 unit/mL insulin penIndications:type 2 diabetes mellitus Inject 1-4 times per day as directed. Max dose 30 units per day 05/15/2019 11/16/2020 documented as of this encounter Care Teams Slip Caster Relationship Specialty Start Date End Date Ronaldo Ulrich MD [address] [place] [address] PCP - General Internal Medicine 11/09/20 12/20/20 documented as of this encounter
--- OUTSIDE RECORDS SUMMARY | 2024-02-10 01:48 | XMS_ITS | Encounter Summary ---
Author Organization [facility] Address [address] [place] [address] Care Team Providers Care Molding Process Technician Name Role Phone Rickey Do MD Primary Care Provider [phone] Reason for Visit * Reason Onset Date Comments Dr. Do- Michele Question 07/17/2020 Encounter Details Date Type Department Care Team (Late st Contact Info) Description 07/17/2020 Telephone [facility] [address] [place] [address] Rickey Do MD [address] [place] [id number] Dr. 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 He received a notification via [employer]. He stated on a card he had, the phone number was [phone]. Transferred to billing so he could pay thebill. documented in this encounter Plan of Treatment Not on file documented as of this encounter Visit Diagnoses Not on filedocumented in this encounter Care Teams Molding Process Technician Relationship Specialty Start Date End Date Rickey Do MD PCP - General 05/20/16 11/08/20 documented as of this encounter
--- OUTSIDE RECORDS SUMMARY | 2024-02-10 01:48 | XMS_ITS | Encounter Summary ---
Author Organization [facility] Address [address] [place] [address] Care Team Providers Care Cottonseed Meat Presser Name Role Phone Rickey Do MD Primary Care Provider [phone] Reason for Visit * Reason Comments Diabetes Encounter Details Date Type Department Care Team (Late st Contact Info) Description 06/19/2020 10:30 AM CDT Office Visit [facility] [address] [place] [address] [address] [place] [address] An Soto, FEATURE WRITER [address] [facility] [address] [place] [address] Preoperative examination (Primary Dx); Type 2 diabetes mellitus with circulatory disorder (CMS/HCC); Hypertension associated with diabetes (CMS/HCC); Coronary artery disease involving tlingit & haida coronary artery of tlingit & haida heart without angina pectoris; BMI 35.0-35.9,adult Social History Tobacco Use Types Packs/Day Years [...] on file Legal Sex 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 Gender Identity Not on file Sexual Orientation Not on file 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 Not on file documented as of this encounter Last Filed Vital Signs Vital Sign Reading Time Taken Comments Blood Pressure 128/66 06/19/2020 10:10 AM CDT Pulse 84 06/19/2020 10:10 AM CDT Temperature - - Respiratory Rate 18 06/19/2020 10:10 AM CDT Oxygen Saturation 96% 06/19/2020 10:10 AM CDT Inhaled Oxygen Concentration - - Weight 116.6 kg (257 lb) 06/19/2020 10:10 AM CDT Height 180.3 cm (5' 10.98 ) 06/19/2020 10:10 AM CDT Body Mass Index 35.86 06/19/2020 10:10 AM CDT documented in this encounter Progress Notes * An Soto, FEATURE WRITER - 06/19/2020 10:30 AM CDT Images from the original note were not included. Ayden Greg Santos 1945 Chief Complaint Patient presents with ??? Diabetes 74-year-old male here for exam prior to cataract surgery. He has type 2 diabetes which is managed with Xultophy, sliding scale Humalog and a small dose of metformin. Fasting blood sugars are 150-160.Afternoon blood sugars are 95-106. He is asymptomatic with blood sugars in this range. Diet: Nutrisystem 5 days per week. Weight is decreased 10 lb. Energy is improved. He plans to increase his NutriSystem to 7 days per week for increased weight loss Past Medical History: Diagnosis Date ??? Colon polyps Colon polyps, hemorrhoidectomy ??? Diabetes mellitus (CMS/HCC) Diabetes ??? Elevated PSA Elevated PSA ??? Hyperlipidemia Hyperlipidemia ??? Hypertension Hypertension ??? Sleep apnea Sleep apnea Past Surgical History: Procedure Laterality Date ??? BIOPSY 2006 Elevated PSA: survellience biopsy ??? COLONOSCOPY 03/10/2017 Fragments of adenoma. Mucosal lymphoid aggregate. Hyperplastic polyps ??? COLONOSCOPY 02/22/2010 Hyperplastic polyp. ??? COLONOSCOPY 05/14/2001 Hyperplastic polyp with focal adenomatous change cecum ??? CYSTOSCOPY ??? HEMORRHOID SURGERY 09/30/2004 Colon polyps, hemorrhoidectomy: colonoscopy with biopsy ??? TONSILLECTOMY Tonsillectomy Family History Problem Relation Age of Onset ??? Coronary artery disease Father Coronary artery disease; ??? Alzheimer's disease Mother ??? Heart attack Paternal Grandmother ??? Colon cancer Paternal Grandfather Social History Socioeconomic History ??? Marital status: Spouse name: Donny ??? Number of children: 2 ??? Years of education: 20 ??? Highest education level: Not on file Occupational History ??? 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 Smoking status: Former Smoker Packs/day: 1.00 Years: 15.00 Pack years: 15.00 Types: Cigarettes ??? Smokeless tobacco: Never Used ??? Tobacco comment: Smoking History Packs/day: 1 Packs Substance and Sexual Activity ??? Alcohol use: Yes ??? Drug use: No ??? Sexual activity: Never Other Topics Concern ??? Not on file Social History Narrative Agrees to blood/blood products: Y Agrees to blood/blood products: Y Social Determinants of Health Financial Resource Strain: ??? Difficulty of Paying Living Expenses: Food Insecurity: ??? Worried About Running Out of Food in the Last Year: ??? Ran Out of Food in the Last Year: Transportation Needs: ??? Lack of Transportation (Medical): ??? Lack of Transportation (Non-Medical): Physical Activity: ??? Days of Exercise per Week: ??? Minutes of Exercise per Session: Stress: ??? Feeling of Stress : Social Connections: ??? Frequency of Communication with Friends and Family: ??? Frequency of Social Gatherings with Friends and Family: ??? Attends Judaism Services: ??? Active Member of Clubs or Organizations: ??? Attends Club or Organization Meetings: ??? Marital Status: Intimate Partner Violence: ??? Fear of Current or Ex-Partner: ??? Emotionally Abused: ??? Physically Abused: ??? Sexually Abused: Allergies Allergen Reactions ??? Royce Inhibitors Cough Reaction: Cough, , ??? Amlodipine Edema Reaction: Edema, , ??? Farxiga [Dapagliflozin] Diarrhea Immunization History Administered Date(s) Administered ??? Hep A, Adult 02/16/2000, 02/05/2001 ??? Influenza, Quadrivalent, High Dose, Preservative Free, Intrr 11/27/2019 ??? Influenza, Split 11/29/2011 ??? Influenza, Trivalent, High Dose, Split, Preservative Free, Intramuscular 11/19/2012, 11/20/2013, 12/03/2015, 11/20/2016, 11/19/2017, 11/21/2018 ??? Influenza, Trivalent, Intramuscular 01/22/2008, 11/29/2010 ??? Influenza, Trivalent, Recombinant, Egg Free, Preservative Free, Antibiotic Free, Intramuscular 11/10/2014 ??? Influenza, Unspecified 11/21/2016, 11/20/2017, 11/27/2019 ??? Pfizer SARS-CoV-2 Vaccination 03/23/2020, 04/20/2020 ??? Pneumococcal Conjugate PCV 13 07/22/2014 ??? Pneumococcal Polysaccharide PPV23 11/29/2001, 12/12/2009, 11/29/2010 ??? Td, adsorbed 02/16/2000 ??? Tdap 02/25/2010 ??? ZOSTER LIVE 04/03/2008 ??? ZOSTER Recombinant 05/16/2018, 09/12/2018 Current Outpatient Medications Medication Sig Dispense Refill ??? acyclovir (ZOVIRAX) 400 mg tablet TAKE 1 TABLET BY MOUTH TWICE DAILY 180 tablet 2 ??? aspirin 81 mg chewable tablet Take [...] ??? finasteride (PROSCAR) 5 mg tablet Take 5 mg by mouth daily ??? flash glucose sensor (FreeStyle Reick 2 Sensor) kit Change sensor every two weeks. 3 kit 3 ??? hydrocortisone (ANUSOL-HC) 25 mg suppository Insert 1 suppository (25 mg total) into the rectum2 (two) times a day as needed for hemorrhoids 30 suppository 0 ??? insulin degludec-liraglutide (Xultophy 100/3.6) 100 unit-3.6 mg /mL (3 mL) insulin pen pen Inject 24 Units under the skin daily 30 mL 11 ??? insulin lispro (HumaLOG KwikPen Insulin) 100 unit/mL insulin pen Inject 1-4 times per day as directed. Max dose 30 units per day 30 pen 3 ??? metFORMIN XR (GLUCOPHAGE XR) 500 mg 24 hr tablet Take 1 tablet (500 mg total) by mouth daily with breakfast 90 tablet 3 ??? metoprolol tartrate (LOPRESSOR) 50 mg immediate release tablet TAKE 2 TABLETS BY MOUTH AT LUNCHAND 1 TABLET AT BEDTIME 270 tablet 3 ??? pen needle, diabetic 31 gauge x 5/16 needle Use to inject 1-4 times daily as directed. 100 each 11 ??? simvastatin (ZOCOR) 40 mg tablet TAKE 1 TABLET BY MOUTH AT NIGHT 90 tablet 3 ??? varicella-zoster (Shingrix, PF,) 50 mcg/0.5 mL vaccine Shingrix (PF) 50 mcg/0.5 mL intramuscular suspension, kit No current facility-administered medications for this visit. PHQ Screening Over the last 2 weeks, how often have you been bothered by any of the following problems? Little Interest or Pleasure in Doing Things: Not at all Feeling Down, Depressed, or Hopeless: Not at all PHQ-2 Total Score (If total score is 3 or more points, staff should administer the PHQ-9): 0 Over the past 2 weeks, how often have you been bothered by any of the following problems? Little Interest or Pleasure in Doing Things: Not at all Feeling Down, Depressed, or Hopeless: Not at all PHQ-2 Total Score (If total score is 3 or more points, staff should administer the PHQ-9): 0 STEADI Fall Risk Screening In the past year, patient experienced: One or more falls in the last year: No Review of Systems Constitutional: Negative. Negative for activity change, appetite change, chills, diaphoresis, fatigue, fever and unexpected weight change. HENT: Negative for congestion, sore throat, trouble swallowing and voice change. Eyes: Negative. Negative for photophobia, pain, discharge and visual disturbance. Respiratory: Negative. Negative for cough, chest tightness, shortness of breath and wheezing. Cardiovascular: Negative. Negative for chest pain, palpitations and leg swelling. Gastrointestinal: Negative. Negative for abdominal distention, abdominal pain, blood in stool, constipation, diarrhea, nausea and vomiting. Endocrine: Negative. Negative for cold intolerance, heat intolerance, polydipsia, polyphagia and polyuria. Genitourinary: Negative. Negative for difficulty urinating, dysuria, flank pain and hematuria. Musculoskeletal: Negative. Negative for gait problem, joint swelling, neck pain and neck stiffness. Skin: Negative. Negative for pallor, rash and wound. Allergic/Immunologic: Negative. Neurological: Negative. Negative for dizziness, syncope, speech difficulty, weakness, light-headedness and headaches. Hematological: Negative. Psychiatric/Behavioral: Negative. Negative for agitation, behavioral problems, confusion, decreasedconcentration and sleep disturbance. BMI Body mass index is 35.86 kg/m??. Vitals BP 128/66 (BP Location: Right arm, Patient Position: Sitting) Pulse 84 Resp 18 Ht 180.3 cm (5' 10.98 ) Wt 116.6 kg (257 lb) SpO2 96% BMI 35.86 kg/m?? Physical Exam Vitals and nursing note reviewed. Constitutional: General: He is not in acute distress. Appearance: Normal appearance. He is well-developed. He is obese. He is not ill-appearing. HENT: Head: Normocephalic and atraumatic. Nose: Nose normal. Mouth/Throat: Mouth: Mucous membranes are moist. Pharynx: Oropharynx is clear. No oropharyngeal exudate. Eyes: Conjunctiva/sclera: Conjunctivae normal. Pupils: Pupils are equal, round, and reactive to light. Neck: Thyroid: No thyromegaly. Vascular: No carotid bruit. Cardiovascular: Rate and Rhythm: Normal rate and regular rhythm. Pulses: Normal pulses. Heart sounds: Normal heart sounds. Pulmonary: Effort: Pulmonary effort is normal. Breath sounds: Normal breath sounds. Abdominal: General: Bowel sounds are normal. There is no distension. Palpations: Abdomen is soft. There is no mass. Tenderness: There is no abdominal tenderness. There is no guarding. Hernia: No hernia is present. Musculoskeletal: General: Normal range of motion. Cervical back: Normal range of motion and neck supple. Lymphadenopathy: Cervical: No cervical adenopathy. Skin: General: Skin is warm and dry. Capillary Refill: Capillary refill takes less than 2 seconds. Neurological: Mental Status: He is alert and oriented to person, place, and time. Psychiatric: Mood and Affect: Mood normal. Behavior: Behavior normal. Thought Content: Thought content normal. Judgment: Judgment normal. Diagnoses and all orders for this visit: Preoperative examination (Primary) Assessment & Plan: He is an acceptable candidate for low risk cataract extraction. He has stable coronary artery disease without angina. No further cardiac testing is required. Preoperative exam form completed. Type 2 diabetes mellitus with circulatory disorder ([facility]) Assessment & Plan: Blood sugars are much better controlled which [...] checked next week with his [employer] screening Hypertension associated with diabetes ([facility]) Assessment & Plan: Blood pressure is well controlled. Reviewed low sodium diet and hidden sources of sodium in the diet to avoid. Coronary artery disease involving tlingit & haida coronary artery of tlingit & haida heart without angina pectoris Assessment & Plan: Stable CAD. Preserved EF. Patient does not have angina. Continue secondary prevention with aspirin, statin therapy, beta priscilla and ACEI. Followed by Cardiology. BMI 35.0-35.9,adult Assessment & Plan: BMI Follow-up includes: nutrition counseling, exercise counseling and education provided. Return in about 3 months (around 09/18/2020) for Next scheduled follow up. documented in this encounter Miscellaneous Notes * Assessment & Plan Note - An Soto NP - 06/19/2020 2:21 PM CDT Associated Problem(s): Preoperative examination (Resolved 02/24/2022) He is an acceptable candidate for low risk cataract extraction. He has stable coronary artery disease without angina. No further cardiac testing is required. Preoperative exam form completed. * Assessment & Plan Note - An Soto NP - 06/19/2020 2:20 PM CDT Associated Problem(s): Coronary artery disease involving tlingit & haida coronary artery of tlingit & haida heart without angina pectoris Stable CAD. Preserved EF. Patient does not have angina. Continue secondary prevention with aspirin, statin therapy, beta priscilla and ACEI. Followed by Cardiology. * Assessment & Plan Note - An Soto NP - 06/19/2020 2:19 PM CDT Associated Problem(s): Hypertensive heart disease without heart failure Blood pressure is well controlled. Reviewed low sodium diet and hidden sources of sodium in the diet to avoid. * Assessment & Plan Note - An Soto NP - 06/19/2020 2:17 PM CDT Associated Problem(s): Type 2 diabetes mellitus with circulatory disorder ([facility]/HCC) ([facility]) Blood sugars are much better controlled which [...] checked next week with his [employer] screening * Assessment & Plan Note - Phyllis Avila MA - 06/19/2020 10:13 AM CDT Associated Problem(s): Class 2 severe obesity due to excess calories with serious comorbidity and body mass index (BMI) of 37.0 to 37.9 in adult (HCC) BMI Follow-up includes: nutrition counseling, exercise counseling and education provided. documented in this encounter Plan of Treatment Not on file documented as of this encounter Visit Diagnoses Diagnosis Preoperative examination- Primary Unspecified pre-operative examination 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) Hypertension associated with diabetes (HCC) Unspecified essential hypertension Coronary artery disease involving tlingit & haida coronary artery of tlingit & haida heart without angina pectoris BMI 35.0-35.9,adult documented in this encounter Discontinued Medications Medication Sig Discontinue Reason Start Date End Da te varicella-zoster (Shingrix, PF,) 50 mcg/0.5 mL vaccine Shingrix (PF) 50 mcg/0.5 mL intramuscular suspension, kit 06/19/2020 documented as of this encounter Care Teams Cottonseed Meat Presser Relationship Specialty Start Date End Date Rickey Do MD PCP - General 05/20/16 11/08/20 documented as of this encounter
--- OUTSIDE RECORDS SUMMARY | 2024-02-10 01:48 | XMS_ITS | Encounter Summary ---
Author Organization [facility] Address [address] [facility] [address] [place] [address] Care Team Providers Care White Spooler Name Role Phone Rickey Do MD Primary Care Provider [phone] Reason for Visit * Reason Comments Diabetes Encounter Details Date Type Department Care Team (Late st Contact Info) Description 09/17/2020 10:30 AM CDT Office Visit [facility] [address] [place] [address] [address] [place] [address] An Soto, PLATE EMBOSSER [address] [facility] [address] [place] [address] Type 2 diabetes mellitus with circulatory disorder (CMS/HCC) ([facility]) (Primary Dx); Morbid obesity with BMI of 45.0-49.9, adult (CMS/HCC) (HCC); Sciatica of right side; 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 mellitus (CMS/HCC) (HCC); Colon polyps; Coronary artery disease involving [place] coronary artery of [place] heart without angina pectoris; Hypertension associated with diabetes ([facility]) Social History Tobacco Use Types Packs/Day Years [...] file 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 Gender Identity Not on file Sexual Orientation Not on file 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 Not on file documented as of this encounter Last Filed Vital Signs Vital Sign Reading Time Taken Comments Blood Pressure 132/68 09/17/2020 10:52 AM CDT Pulse 85 09/17/2020 10:37 AM CDT Temperature - - Respiratory Rate 18 09/17/2020 10:37 AM CDT Oxygen Saturation 96% 09/17/2020 10:37 AM CDT Inhaled Oxygen Concentration - - Weight 119.7 kg (264 lb) 09/17/2020 10:37 AM CDT Height 154.9 cm (5' 0.98 ) 09/17/2020 10:37 AM C DT Body Mass Index 49.91 09/17/2020 10:37 AM CDT documented in this encounter Ordered Prescriptions Prescription Sig Dispense Quantity Refills Last Filled Start Date End Date gabapentin (NEURONTIN) 100 mg capsuleIndications :Neuropathic Pain Take 1-3 capsules at bedtime. 90 capsule 3 09/17/2020 1 insulin degludec-liragluti de (Xultophy 100/3.6) 100 unit-3.6 mg /mL (3 mL) insulin pen penIndications:Typ e 2 diabetes mellitus with circulatory disorder (HCC) Inject 24 Units under the skin daily 30 mL 11 09/17/2020 1 metoprolol tartrate (LOPRESSOR) 50 mg immediate release tablet TAKE 2 TABLETS BY MOUTH AT LUNCH AND 1 TABLET AT BEDTIME 270 tablet 3 09/17/2020 1 metFORMIN (GLUCOPHAGE) 500 mg tablet Take 1 tablet (500 mg total) by mouth 2 (two) times a day with meals 180 tablet 3 09/17/2020 2 documented in this encounter Progress Notes * An Soto, VASQUEZ - 09/17/2020 10:30 AM CDT Images from the original note were not included. Ayden Santos 1945 Chief Complaint Patient presents with ??? Diabetes 74-year-old male here for follow-up of type 2 diabetes. He also has new problem of sciatica in his right buttock radiating a short distance down the back of the leg. He has been taking acetaminophen at bedtime, but still has pain and difficulty sleeping. He is able to walk without pain sometimes but at other times is limited due to pain. Fasting blood sugars 170, at 5 pm 110. Diet: Eats most of his meals out and has difficulty limiting his intake and making healthy choices when ordering off a menu. Exercise: Limited due to sciatica. Past Medical History: Diagnosis Date ??? Abnormal results of thyroid function studies 11/27/2018 ??? Colon polyps Colon polyps, hemorrhoidectomy ??? [...] Gatherings with Friends and Family: ??? Attends Voodoo Services: ??? Active Member of Clubs or [...] 30 tablet 11 ??? blood glucose diagnostic ([employer] VERIO) strip smbg bid ac 100 each [...] by mouth daily ??? flash glucose sensor ([employer] Erick 2 Sensor) kit Change sensor every [...] units per day 30 pen 3 ??? irbesartan-hydroCHLOROthiazide (AVALIDE) 300-12.5 mg per tablet TAKE 1 TABLET BY MOUTH DAILY 90tablet 3 ??? metoprolol tartrate (LOPRESSOR) 50 mg immediate release tablet TAKE 2 TABLETS BY MOUTH AT LUNCHAND 1 TABLET AT BEDTIME 270 tablet 3 ??? pen needle, diabetic 31 gauge x 5/16 needle Use to inject 1-4 times daily as directed. 100 each 11 ??? simvastatin (ZOCOR) 40 mg tablet TAKE 1 TABLET BY MOUTH AT NIGHT 90 tablet 3 ??? metFORMIN (GLUCOPHAGE) 500 mg tablet Take 1 tablet (500 mg total) by mouth 2 (two) times a day with meals 180 tablet 3 No current facility-administered medications for this visit. [...] urinating, dysuria, flank pain and hematuria. Musculoskeletal: Positive for back pain. Negative for gait problem, joint swelling, neck pain and neck stiffness. Skin: Negative. Negative for pallor, rash and wound. Allergic/Immunologic: Negative. Neurological: Positive for numbness. Negative for dizziness, syncope, speech difficulty, weakness, light-headedness and headaches. Hematological: Negative. Psychiatric/Behavioral: Negative. Negative for agitation, behavioral problems, confusion, decreasedconcentration and sleep disturbance. BMI Body mass index is 49.91 kg/m??. Vitals BP 132/68 Pulse 85 Resp 18 Ht 154.9 cm (5' 0.98 ) Wt 119.7 kg (264 lb) SpO2 96% BMI 49.91 kg/m?? Physical Exam Vitals and nursing note reviewed. Constitutional: General: He is not in acute distress. Appearance: Normal appearance. He is well-developed. He is obese. He is not ill-appearing. HENT: Head: Normocephalic and atraumatic. Nose: Nose normal. Mouth/Throat: Mouth: Mucous membranes are moist. Pharynx: Oropharynx is clear. No oropharyngeal exudate. Eyes: Conjunctiva/sclera: Conjunctivae normal. Neck: Thyroid: No thyromegaly. Vascular: No carotid [...] Normal range of motion and neck supple. Comments: Negative straight leg raise. Strength of hip flexors knee extensors and great toe dorsiflexion 5 of 5 bilaterally. Lymphadenopathy: Cervical: No cervical adenopathy. Skin: General: Skin is warm and dry. Capillary Refill: Capillary refill takes less than 2 seconds. Neurological: Mental Status: He is alert and oriented to person, place, and time. Motor: No weakness. Gait: Gait normal. Psychiatric: Mood and Affect: Mood normal. Behavior: Behavior normal. Thought Content: Thought content normal. Judgment: Judgment normal. Diagnoses and all orders for this visit: Type 2 diabetes mellitus with circulatory disorder ([facility]) (Primary) Assessment & Plan: Fasting blood sugars are trending lower although still above goal. Check hemoglobin A1c today. Goal hemoglobin A1c 8.0 or less due to age and risk of hypoglycemia with insulin use. Discussed healthy choices when dining out and need to start regular daily exercise for blood sugar management and weight loss. Orders: - Albumin Creatinine Ratio, Urine; Future - Hemoglobin A1c; Future Morbid obesity with BMI of 45.0-49.9, adult ([facility]) Assessment & Plan: BMI Follow-up includes: nutrition counseling, exercise counseling and education provided. Sciatica of right side Assessment & Plan: Sciatica right side, limiting activity. No red flag signs. Referred for physical therapy. Orders: - Ambulatory referral order to Physical Therapy -; Future 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 mellitus ([facility]/HCC) Assessment & Plan: Worsening neuropathy with nighttime symptoms. Start gabapentin 100-300 mg at bedtime. Discussed that improving blood sugar control would decrease neuropathy. Colon polyps - Ambulatory referral to Gastroenterology; Future Coronary artery disease involving [place] coronary artery of [place] heart without angina pectoris Assessment & Plan: Nonobstructing CAD. No angina. Continue aspirin, statin, ARB and beta-priscilla for secondary prevention. Hypertension associated with diabetes (CMS/HCC) Assessment & Plan: Blood pressure is well controlled. Reviewed low sodium diet and hidden sources of sodium in the diet to avoid. Other orders - metFORMIN (GLUCOPHAGE) 500 mg tablet; Take 1 tablet (500 mg total) by mouth 2 (two) times a day with meals - metoprolol tartrate (LOPRESSOR) 50 mg immediate release tablet; TAKE 2 TABLETS BY MOUTH AT LUNCH AND 1 TABLET AT BEDTIME - gabapentin (NEURONTIN) 100 mg capsule; Take 1-3 capsules at bedtime. Return in about 3 months (around 12/18/2020) for Next scheduled follow up. documented in this encounter Miscellaneous Notes * Assessment & Plan Note - An Soto NP - 09/17/2020 5:26 PM CDT Associated Problem(s): Sciatica of right side (Resolved 09/26/2023) Sciatica right side, limiting activity. No red flag signs. Referred for physical therapy. * Assessment & Plan Note - An Soto NP - 09/17/2020 5:25 PM CDT Associated Problem(s): 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 mellitus (CMS/HCC) ([facility]) Worsening neuropathy with nighttime symptoms. Start gabapentin 100-300 mg at bedtime. Discussed that improving blood sugar control would decrease neuropathy. * Assessment & Plan Note - An Soto NP - 09/17/2020 3:44 PM CDT Associated Problem(s): Type 2 diabetes mellitus with circulatory disorder ([facility]) ([facility]) Fasting blood sugars are trending lower although still above goal. Check hemoglobin A1c today. Goal hemoglobin A1c 8.0 or less due to age and risk of hypoglycemia with insulin use. Discussed healthy choices when dining out and need to start regular daily exercise for blood sugar management and weight loss. * Assessment & Plan Note - An Soto NP - 09/17/2020 3:43 PM CDT Associated Problem(s): Hypertensive heart disease without heart failure Blood pressure is well controlled. Reviewed low sodium diet and hidden sources of sodium in the diet to avoid. * Assessment & Plan Note - An Soto NP - 09/17/2020 3:40 PM CDT Associated Problem(s): Coronary artery disease involving [place] coronary artery of [place] heart without angina pectoris Nonobstructing CAD. No angina. Continue aspirin, statin, ARB and beta-priscilla for secondary prevention. * Assessment & Plan Note - Phyllis Avila MA - 09/17/2020 10:45 AM CDT Associated Problem(s): Class 2 severe obesity due to excess calories with serious comorbidity and body mass index (BMI) of 37.0 to 37.9 in adult ([facility]) BMI Follow-up includes: nutrition counseling, exercise counseling and education provided. documented in this encounter Plan of Treatment Not on file documented as of this encounter Procedures Procedure Name Priority Date/Time Associated Diagnosis Comments ALBUMIN CREATININE RATIO, URINE Routine 09/17/2020 11:19 AM CDT Type 2 diabetes mellitus with circulatory disorder (CMS/HCC) (HCC) HEMOGLOBIN A1C Routine 09/17/2020 11:19 AM CDT Type 2 diabetes mellitus with circulatory disorder (CMS/HCC) (HCC) documented in this encounter Results * (ABNORMAL) Hemoglobin A1c (09/17/2020 11:19 AM CDT) Hgb A1C 8.2(H) 4.0 - 5.6 % TAYLOR ZUNIGA Comment:Testing performed by : [facility], [address] [place] [address]., [id number] Estimated Average Glucose 189 mg/dL TAYLOR ZUNIGA Comment: The ADA recommends reporting an estimated Average Glucose (eAG) with all Hemoglobin A1c results using the equation derived from a study of 507 normal and diabetic adults. ??Minority populations were underrepresented and children were not included. ?? (Diabetes Care 31:1002-8131, 2008). ??The eAG is not equivalent to a fasting glucose. Testing performed by: [facility], [address] [place] [address]., [id number] Blood specimen (specimen) 09/17/2020 11:19 AM CDT 09/17/2020 4:00 PM CDT us An Soto NP LAB BLOOD ORDERABLES Final Res ult [facility] [address] [facility]. [place] [address] * (ABNORMAL) Albumin Creatinine Ratio, Urine (09/17/2020 11:19 AM CDT) Albumin Ur 157.8 mg/L TAYLOR ZUNIGA Comment: Interpretive Data No reference range established. Current interpretive data was last revised 2018. Testing performed by: [facility], [address] [place] [address]., [id number] Creatinine Ur 44.9 mg/dL TAYLOR ZUNIGA Comment: Interpretive Data No reference range established. Current interpretive data was last revised 2018. Testing performed by: [facility], [address] [place] [address]., [id number] Albumin Creatinine Ratio, Ur 351(H) 1 - 29 mg/g TAYLOR ZUNIGA Comment:Testing performed by : [facility], [address] [place] [address]., [id number] Urine 09/17/2020 11:1 9 AM CDT 09/17/2020 4:01 PM CDT us An Soto NP LAB URINE ORDERABLES Final Res ult Performing Organization Address City/State/[facility] Co de Phone Number [facility] [address] [facility]. [place] [address] documented in this encounter Visit Diagnoses Diagnosis 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)- Primary Morbid obesity with BMI of 45.0-49.9, adult (HCC) Sciatica of right side 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 mellitus (CMS/HCC) (HCC) Colon polyps Benign neoplasm of colon Coronary artery disease involving [place] coronary artery of [place] heart without angina pectoris Hypertension associated with diabetes (HCC) Unspecified essential hypertension documented in this encounter Discontinued Medications Medication Sig Discontinue Reason Start Date End Da te metFORMIN (GLUCOPHAGE) 500 mg tablet Take 500 mg by mouth 2 (two) times a day with meals 09/17/2020 metoprolol tartrate (LOPRESSOR) 50 mg immediate release tablet TAKE 2 TABLETS BY MOUTH AT LUNCH AND 1 TABLET AT BEDTIME Reorder 10/29/2019 09/17/2020 insulin degludec-liraglutide (Xultophy 100/3.6) 100 unit-3.6 mg /mL (3 mL) insulin pen penIndications: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) Inject 24 Units under the skin daily 04/17/2020 09/17/2020 insulin degludec-liraglutide (Xultophy 100/3.6) 100 unit-3.6 mg /mL (3 mL) insulin pen penIndications: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) Inject 24 Units under the skin daily 09/17/2020 09/17/2020 documented as of this encounter Care Teams White Spooler Relationship Specialty Start Date End Date Rickey Do MD PCP - General 05/20/16 11/08/20 documented as of this encounter
--- OUTSIDE RECORDS SUMMARY | 2024-02-10 01:48 | XMS_ITS | Encounter Summary ---
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 05/13/2020 Encounter Details Date Type Department Care Team (Late st Contact Info) Description 05/13/2020 Telephone [facility] [address] [facility] [address] [place] [address] An Soto, BUILDING PERFORMANCE SPECIALIST [address] [facility] [address] [place] [address] VASQUEZ Nolan Medical Question Social History Tobacco Use Types Packs/Day Years Used Date Smoking Tobacco: Former Cigarettes 1 15 Smokeless Tobacco: Never Comments:Smoking History Pac ks/day: 1 Packs Alcohol Use Standard Drinks/Week Comments Yes 0 (1 standard drink = 0.6 oz pur e alcohol) PHQ-2 Answer Date Recorded PHQ-2 Total Score (If total score is 3 or more points, staff should administer the PHQ-9) 0 05/08/2020 Sex and Gender Information Value Date Recorded Sex Assigned at Not on file 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 * Telephone Encounter - Estela Graham - 05/13/2020 2:36 PM CDT Medication Question/Clarification: Medication Name: Freestyle Diabetic sensors Question/Clarification: Patient received a call today from [facility] [employer] regarding paying approximately $400+ for cost of supplies. Patient told rep that he would not pay for it as he received letter from [facility] stating that it would be covered. His insurance previously refused to pay for it, but through negotiation said they would. Patient received letter with confirmation and showed it to VASQUEZ Nolan at his last office visit. Patient was advised by rep with [employer] to contact provider's office regarding refusal of payment. Caller???s Callback#: [phone] Additional Comments: Please advise. Did you relay expectation for processing (allow up to 24 hours for call back)? Yes documented in this encounter Plan of Treatment Not on file documented as of this encounter Visit Diagnoses Not on filedocumented in this encounter Care Teams Dock Pumper Relationship Specialty Start Date End Date Rickey Do MD PCP - General 05/20/16 11/08/20 documented as of this encounter
--- OUTSIDE RECORDS SUMMARY | 2024-02-10 01:48 | XMS_ITS | Encounter Summary ---
Author Organization [facility] Address [address] [address] Care Team Providers Care Pulley Maintainer Name Role Phone Ronaldo Ulrich MD Primary Care Provider + Reason for Visit * Reason Comments Establish Care Prev Ernestina Elkins Last PSA 04/17/2020, Last Colonoscopy 02/2017, Last Eye Exam 2020 Skin Tag C/O skin tag - recta l area has had for awhile just is bothering him. Encounter Details Date Type Department Care Team (Late st Contact Info) Description 11/09/2020 9:00 AM CDT Office Visit [facility] Primary Care [address] [place] [id number] Ronaldo Ulrich MD [address], [place] [id number] Type 2 diabetes mellitus with circulatory disorder (CMS/HCC) (HCC) (Primary Dx); 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 mellitus (CMS/HCC) (HCC); 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 2 diabetes mellitus (CMS/HCC) (HCC); Hypertensive heart disease without heart failure; Coronary artery disease involving prairie band coronary artery of prairie band heart without angina pectoris; Atherosclerosis of aorta (CMS/HCC) (HCC); Colon polyps; Morbid obesity with BMI of 45.0-49.9, adult (CMS/HCC) (HCC); Benign prostatic hyperplasia without lower urinary tract symptoms; Diabetic nephropathy associated with type 2 diabetes mellitus (HCC); Obstructive sleep apnea; Herpes simplex Social History Tobacco Use Types Packs/Day Years [...] on file Legal Sex Male 11:37 AM COMPLEX CARE NURSE Gender Identity Not on file Sexual Orientation Not on file 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 Not on file documented as of this encounter Last Filed Vital Signs Vital Sign Reading Time Taken Comments Blood Pressure 140/70 11/09/2020 9:43 AM CDT Pulse 89 11/09/2020 8:53 AM CDT Temperature 36.1 ??C (96.9 ??F) 11/09/2020 8:53 AM CD T Respiratory Rate 16 11/09/2020 8:53 AM CDT Oxygen Saturation 96% 11/09/2020 8:53 AM CDT Inhaled Oxygen Concentration - - Weight 121.7 kg (268 lb 4.8 oz) 11/09/2020 8:53 AM CDT Height 175.9 cm (5' 9.25 ) 11/09/2020 8:53 AM CD T Body Mass Index 39.34 11/09/2020 8:53 AM CDT documented in this encounter Ordered Prescriptions Prescription Sig Dispense Quantity Refills Last Filled Start Date End Date finasteride (PROSCAR) 5 mg tabletIndications: Benign prostatic hyperplasia without lower urinary tract symptoms Take 1 tablet (5 mg total) by mouth daily 90 tablet 1 11/09/2020 05/10/202 2 metoprolol tartrate (LOPRESSOR) 50 mg immediate release tabletIndications: Hypertensive heart disease without heart failure,Coronary artery disease involving prairie band coronary artery of prairie band heart without angina pectoris TAKE 2 TABLETS BY MOUTH AT LUNCH AND 1 TABLET AT BEDTIME 270 tablet 1 11/09/2020 2 documented in this encounter Progress Notes * Ronaldo Ulrich MD - 11/09/2020 9:00 AM CDT Images from the original note were not included. Subjective/Objective Patient ID: Ayden Santos is a 74 y.o. male. Assessment/Plan Diagnoses and all orders for this visit: Type 2 diabetes mellitus with circulatory disorder ([facility]) ([facility]) (Primary) Assessment & Plan: Complicated by HTN, CAD. Hemoglobin A1c is slowly improving. Continue Humalog, Xultophy, and metformin Orders: - Hemoglobin A1c; Future 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 mellitus ([facility]) ([facility]) Assessment & Plan: Hemoglobin A1c slowly improving on metformin and Humalog. Started on gabapentin at bedtime in August for worsening neuropathy. Orders: - Hemoglobin A1c; Future 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 2 diabetes mellitus ([facility]) ([facility]) Assessment & Plan: Well controlled on simvastatin Orders: - Comprehensive metabolic panel; Future - Lipid panel; Future Hypertensive heart disease without heart failure Assessment & Plan: Well controlled on metoprolol and irbesartan hydrochlorothiazide Orders: - metoprolol tartrate (LOPRESSOR) 50 mg immediate release tablet; TAKE 2 TABLETS BY MOUTH AT LUNCH AND 1 TABLET AT BEDTIME - Comprehensive metabolic panel; Future Coronary artery disease involving prairie band coronary artery of prairie band heart without angina pectoris Assessment & Plan: Stable on aspirin, simvastatin, metoprolol, and irbesartan hydrochlorothiazide. Follows with Dr. Jiménez Orders: - metoprolol tartrate (LOPRESSOR) 50 mg immediate release tablet; TAKE 2 TABLETS BY MOUTH AT LUNCH AND 1 TABLET AT BEDTIME Atherosclerosis of aorta ([facility]) ([facility]) Assessment & Plan: Stable on simvastatin and aspirin Colon polyps Assessment & Plan: Due for repeat colonoscopy. Morbid obesity with BMI of 45.0-49.9, adult ([facility]) ([facility]) Assessment & Plan: BMI Follow-up includes: exercise counseling. Benign prostatic hyperplasia without lower urinary tract symptoms Assessment & Plan: Stable on finasteride Orders: - finasteride (PROSCAR) 5 mg tablet; Take 1 tablet (5 mg total) by mouth daily Diabetic nephropathy associated with type 2 diabetes mellitus (HCC) Assessment & Plan: Urine microalbumin is elevated. Preserved renal function. Continue irbesartan hydrochlorothiazide for renal protection. Unable to tolerate Farxiga secondary to side effects. Obstructive sleep apnea Assessment & Plan: Uses CPAP nightly and benefits from it Herpes simplex Assessment & Plan: Stable on acyclovir Chief Complaint Here to get established. HPI: Mr. Santos is 74-year-old male with a history of type 2 diabetes mellitus, peripheral neuropathy, nephropathy, hyperlipidemia, hypertension, and coronary artery disease who is here to get established.He is a previous patient Ernestina Elkins Last PSA 04/17/2020, Last Colonoscopy 02/2017, Last Eye Exam 2020. He complains of a skin tag in rectal area has had for awhile just is bothering him. Had hemorrhoid operation and now has a skin tag. Was seen by [facility] Dr. Diaz who retired, but they did not do anything about it. Current Outpatient Medications Medication Sig Dispense Refill ??? acyclovir (ZOVIRAX) 400 mg tablet Take 400 mg by mouth 2 (two) times a day ??? aspirin 81 mg chewable tablet Take [...] two weeks. 3 kit 3 ??? insulin degludec-liraglutide (Xultophy 100/3.6) 100 unit-3.6 mg /mL (3 mL) insulin pen pen Inject 50 Units under the skin daily ??? insulin lispro (HumaLOG KwikPen Insulin) 100 [...] ??? miscellaneous medical supply misc C-Pap ??? pen needle, diabetic 31 gauge x 5/16 needle Use to inject 1-4 times daily as directed. 100 each 11 ??? simvastatin (ZOCOR) 40 mg tablet TAKE 1 TABLET BY MOUTH AT NIGHT 90 tablet 3 ??? vit C,K-Ud-cnlec-lutein-zeaxan 250-90-40-1 mg capsule Take 1 capsule by mouth daily ??? vitamin B complex capsule Take 1 capsule by mouth daily No current facility-administered medications for this visit. [...] concentration. The patient is not nervous/anxious. Labs: No results found for this or any previous visit (from the past 1008 hour(s)). Physical Exam: BP 140/70 (BP Location: Right arm, Patient Position: Sitting) Pulse 89 Temp 36.1 ??C (96.9 ??F)(Skin) Resp 16 Ht 175.9 cm (5' 9.25 ) Wt 121.7 kg (268 lb 4.8 oz) SpO2 96% BMI 39.34 kg/m?? Physical Exam Constitutional: Appearance: He is well-developed. HENT: Head: Normocephalic and atraumatic. Right Ear: External ear normal. Left Ear: External ear normal. Nose: Nose normal. Eyes: Conjunctiva/sclera: Conjunctivae normal. Pupils: Pupils are equal, round, and reactive to light. Neck: Thyroid: No thyroid mass or thyromegaly. Cardiovascular: Rate and Rhythm: Normal rate and regular rhythm. Pulses: Normal pulses. Heart sounds: Normal heart sounds. No murmur heard. No friction rub. No gallop. Pulmonary: Effort: Pulmonary effort is normal. No respiratory distress. Breath sounds: Normal breath sounds. No wheezing or rales. Abdominal: General: Bowel sounds are normal. There is no distension. Palpations: Abdomen is soft. Tenderness: There is no abdominal tenderness. Hernia: No hernia is present. Musculoskeletal: General: Normal range of motion. Cervical back: Normal range of motion and neck supple. Lymphadenopathy: Cervical: No cervical adenopathy. Skin: General: Skin is warm and dry. Findings: No rash. Neurological: Mental Status: He is alert and oriented to person, place, and time. Cranial Nerves: No cranial nerve deficit. Sensory: No sensory deficit. Deep Tendon Reflexes: Reflexes normal. Psychiatric: Behavior: Behavior normal. Thought Content: Thought content normal. Judgment: Judgment normal. Ronaldo Ulrich MD documented in this encounter Miscellaneous Notes * Assessment & Plan Note - Ronaldo Ulrich MD - 11/09/2020 9:29 AM CDT Associated Problem(s): Herpes simplex Stable on acyclovir * Assessment & Plan Note - Ronaldo Ulrich MD - 11/09/2020 9:18 AM CDT Associated Problem(s): Obstructive sleep apnea Uses CPAP nightly and benefits from it * Assessment & Plan Note - Ronaldo Ulrich MD - 11/09/2020 8:51 AM CDT Associated Problem(s): Diabetic nephropathy associated with type 2 diabetes mellitus (HCC) Urine microalbumin is elevated. Preserved renal function. Continue irbesartan hydrochlorothiazide for renal protection. Unable to tolerate Farxiga secondary to side effects. * Assessment & Plan Note - Ronaldo Ulrich MD - 11/05/2020 12:15 PM CDT Associated Problem(s): Benign prostatic hyperplasia without lower urinary tract symptoms Stable on finasteride * Assessment & Plan Note - Ronaldo Ulrich MD - 11/05/2020 12:14 PM CDT Associated Problem(s): Class 2 severe obesity due to excess calories with serious comorbidity and body mass index (BMI) of 37.0 to 37.9 in adult ([facility]) BMI Follow-up includes: exercise counseling. * Assessment & Plan Note - Ronaldo Ulrich MD - 11/05/2020 12:14 PM CDT Associated Problem(s): Colon polyps (Resolved 08/19/2021) Due for repeat colonoscopy. * Assessment & Plan Note - Ronaldo Ulrich MD - 11/05/2020 12:13 PM CDT Associated Problem(s): Atherosclerosis of aorta (CMS/HCC) ([facility]) Stable on simvastatin and aspirin * Assessment & Plan Note - Ronaldo Ulrich MD - 11/05/2020 12:13 PM CDT Associated Problem(s): Coronary artery disease involving prairie band coronary artery of prairie band heart without angina pectoris Stable on aspirin, simvastatin, metoprolol, and irbesartan hydrochlorothiazide. Follows with Dr. Jiménez * Assessment & Plan Note - Ronaldo Ulrich MD - 11/05/2020 12:12 PM CDT Associated Problem(s): Hypertensive heart disease without heart failure Well controlled on metoprolol and irbesartan hydrochlorothiazide * Assessment & Plan Note - Ronaldo Ulrich MD - 11/05/2020 12:12 PM CDT Associated Problem(s): 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 2 diabetes mellitus (CMS/HCC) ([facility]) Well controlled on simvastatin * Assessment & Plan Note - Ronaldo Ulrich MD - 11/05/2020 12:11 PM CDT Associated Problem(s): 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 mellitus (CMS/HCC) ([facility]) Hemoglobin A1c slowly improving on metformin and Humalog. Started on gabapentin at bedtime in August for worsening neuropathy. * Assessment & Plan Note - Ronaldo Ulrich MD - 11/05/2020 12:10 PM CDT Associated Problem(s): Type 2 diabetes mellitus with circulatory disorder (CMS/HCC) ([facility]) Complicated by HTN, CAD. Hemoglobin A1c is slowly improving. Continue Humalog, Xultophy, and metformin documented in this encounter Plan of Treatment Not on file documented as of this encounter Procedures Procedure Name Priority Date/Time Associated Diagnosis Comments HEMOGLOBIN A1C Routine 02/08/2021 9:25 AM COMPLEX CARE NURSE Type 2 diabetes mellitus with circulatory disorder (CMS/HCC) (HCC) 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 mellitus (CMS/HCC) (HCC) LIPID PANEL Routine 02/08/2021 9:25 AM COMPLEX CARE NURSE 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 2 diabetes mellitus (CMS/HCC) (HCC) COMPREHENSIVE METABOLIC PANEL Routine 02/08/2021 9:25 AM COMPLEX CARE NURSE 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 2 diabetes mellitus ([facility]/HCC) (HCC) Hypertensive heart disease without heart failure documented in this encounter Results * (ABNORMAL) Lipid panel (02/08/2021 9:25 AM COMPLEX CARE NURSE) Cholesterol 136 <200 mg/dL [facility] HDL 39(L) > OR = 40 mg/dL [facility] Triglycerides 165(H) <150 mg/dL [facility] LDL 73 mg/dL (calc) [facility] Comment: Reference [...] LDL-C. Nishant GHOTRA et al. IRVING. 2013;310(19): 8456-4925 (http://education.ADOMIC (formerly [employer]).Sojeans/faq/KMG377) Chol/HDL ratio 3.5 <5.0 (calc) [facility] Non-HDL, (LDL+VLDL) 97 <130 mg/dL (calc) [facility] Comment: For patients with diabetes plus 1 major ASCVD risk factor, treating to a non-HDL-C goal of <100 mg/dL (LDL-C of <70 mg/dL) is considered a therapeutic option. Blood specimen (specimen) 02/08/2021 9:25 AM COMPLEX CARE NURSE 02/08/2021 9:25 AM COMPLEX CARE NURSE Narrative [facility] - 02/09/2021 2:28 AM COMPLEX CARE NURSE FASTING:YES FASTING: YES Ronaldo Ulrich MD LAB BLOOD ORDERABLES Fin al Result Performing Organization Address City/[facility]/ZIP Co de Phone Number [facility] [address] [place] [address] * (ABNORMAL) Hemoglobin A1c (02/08/2021 9:25 AM COMPLEX CARE NURSE) Hgb A1C 8.1(H) <5.7 % of total [facility]gb [facility] Blood specimen (specimen) 02/08/2021 9:25 AM COMPLEX CARE NURSE 02/08/2021 9:25 AM COMPLEX CARE NURSE Narrative [facility] - 02/09/2021 2:28 AM COMPLEX CARE NURSE FASTING:YES FASTING: YES Ronaldo Ulrich MD LAB BLOOD ORDERABLES Fin al Result Performing Organization Address [facility]/ZIP Co de Phone Number [facility] [address] [place] [address] * (ABNORMAL) Comprehensive metabolic panel (02/08/2021 9:25 AM COMPLEX CARE NURSE) Glucose 183(H) 65 - 99 mg/dL [facility] Comment: ? Fasting reference interval For someone without known diabetes, a glucose value >125 mg/dL indicates that they may have diabetes and this should be confirmed with a follow-up test. BUN 18 7 - 25 mg/dL [facility] Creatinine 1.05 0.70 - 1.18 mg/dL [facility] Comment: For patients >49 years of age, the reference limit for Creatinine is approximately 13% higher for people identified as -Mauritanian. eGFR NON-AFR. [place] 69 > OR = 60 mL/min/1 .73m2 [facility] EGFR 80 > OR = 60 mL/min/1 .73m2 [facility] BUN/creat ratio NOT APPLICABLE 6 - 22 (calc) [facility] Sodium 136 135 - 146 mmol/L [facility] Potassium, pl 4.4 3.5 - 5.3 mmol/L [facility] Chloride 100 98 - 110 mmol/L [facility] CO2 28 20 - 32 mmol/L [facility] Calcium 9.5 8.6 - 10.3 mg/dL [facility] Protein, sr 7.5 6.1 - 8.1 g/dL [facility] Albumin 4.2 3.6 - 5.1 g/dL [facility] GLOBULIN 3.3 1.9 - 3.7 g/dL (calc) [facility] Alb/glob ratio 1.3 1.0 - 2.5 (calc) [facility] Bilirubin, total 0.7 0.2 - 1.2 mg/dL [facility] Alk phos 71 35 - 144 U/L [facility] AST 21 10 - 35 U/L [facility] ALT (SGPT) 22 9 - 46 U/L [facility] Blood specimen (specimen) 02/08/2021 9:25 AM COMPLEX CARE NURSE 02/08/2021 9:25 AM COMPLEX CARE NURSE Narrative [facility] - 02/09/2021 2:28 AM COMPLEX CARE NURSE FASTING:YES FASTING: YES us Ronaldo Ulrich MD LAB BLOOD ORDERABLES Fin al Result [facility] [address] [place] [id number] documented in this encounter Visit Diagnoses Diagnosis 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)- Primary 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 mellitus (CMS/HCC) (HCC) 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) Hypertensive heart disease without heart failure Unspecified hypertensive heart disease without heart failure Coronary artery disease involving prairie band coronary artery of prairie band heart without angina pectoris Atherosclerosis of aorta (HCC) Atherosclerosis of aorta Colon polyps Benign neoplasm of colon Morbid obesity with BMI of 45.0-49.9, adult (HCC) Benign prostatic hyperplasia without lower urinary tract symptoms Diabetic nephropathy associated with type 2 diabetes mellitus (HCC) Obstructive sleep apnea Obstructive sleep apnea (adult) (pediatric) Herpes simplex Herpes simplex without mention of complication documented in this encounter Discontinued Medications Medication Sig Discontinue Reason Start Date End Da te acyclovir (ZOVIRAX) 400 mg tabletIndications:Herp es simplex virus (HSV) infection TAKE 1 TABLET BY MOUTH TWICE DAILY Therapy completed 06/06/2020 11/09/2020 hydrocortisone (ANUSOL-HC) 25 mg suppository Insert 1 suppository (25 mg total) into the rectum 2 (two) times a day as needed for hemorrhoids Therapy completed 12/16/2019 11/09/2020 gabapentin (NEURONTIN) 100 mg capsuleIndications:Kat ropathic Pain Take 1-3 capsules at bedtime. Therapy completed 09/17/2020 11/09/2020 finasteride (PROSCAR) 5 mg tablet Take 5 mg by mouth daily Reorder 11/09/2020 metoprolol tartrate (LOPRESSOR) 50 mg immediate release tablet TAKE 2 TABLETS BY MOUTH AT LUNCH AND 1 TABLET AT BEDTIME Reorder 09/17/2020 11/09/2020 documented as of this encounter Historical Medications * This list may reflect changes made after this encounter. miscellaneous medical supply misc C-Pap vitamin B complex capsule Take 1 capsule by mouth daily vit C,Q-Kw-ktkfd-lute in-zeaxan 250-90-40-1 mg capsule Take 1 capsule by mouth daily insulin degludec-liraglut sumit (Xultophy 100/3.6) 100 unit-3.6 mg /mL (3 mL) insulin pen pen Inject 50 Units under the skin daily 12/15/2020 acyclovir (ZOVIRAX) 400 mg tablet Take 400 mg by mouth 2 (two) times a day 12/11/2020 added in this encounter Care Teams Pulley Maintainer Relationship Specialty Start Date End Date Ronaldo Ulrich MD [address] [place] [address] PCP - General Internal Medicine 11/09/20 12/20/20 documented as of this encounter
--- OUTSIDE RECORDS SUMMARY | 2024-02-10 01:48 | XMS_ITS | Encounter Summary ---
Author Organization [facility] Address [address] [place] [address] Care Team Providers Care Aircraft Metalsmith Name Role Phone Rickey Do MD Primary Care Provider [phone] Reason for Visit * Reason Comments Coronary Artery Disease Encounter Details Date Type Department Care Team (Late st Contact Info) Description 09/03/2020 10:45 AM CDT Office Visit [facility] Cardiology [address] [place] [address] Farrukh Jiménez MD [address] [place] [address] [address] [place] [address] 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 (Primary Dx); Hypertension associated with diabetes (HCC); 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 2 diabetes mellitus (CMS/HCC) (HCC) Social History Tobacco Use Types Packs/Day [...] on file 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 Gender Identity Not on file Sexual Orientation Not on file 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 Not on file documented as of this encounter Last Filed Vital Signs Vital Sign Reading Time Taken Comments Blood Pressure 134/59 09/03/2020 10:47 AM CDT Pulse 78 09/03/2020 10:47 AM CDT Temperature - - Respiratory Rate - - Oxygen Saturation - - Inhaled Oxygen Concentration - - Weight 118.4 kg (261 lb) 09/03/2020 10:47 AM CDT Height 154.9 cm (5' 1 ) 09/03/2020 10:47 AM CDT Body Mass Index 49.32 09/03/2020 10:47 AM CDT documented in this encounter Progress Notes * Farrukh Jiménez MD - 09/03/2020 10:45 AM CDT Patient Name: Ayden Santos Provider: Farrukh Jiménez MD : 1945 Date of Service: 09/03/2020 Referring: Ernestina CHIEF COMPLAINT: Coronary Artery Disease HISTORY OF PRESENT ILLNESS: 74 y.o. male returns in follow-up of mild coronary artery disease noted at catheterization in 03/07.Left ventricular function was normal with ejection fraction 65% at catheterization then. Carotid Dopplers were unremarkable remotely in . He is doing very well with no angina symptoms or symptoms of congestive heart failure. He has had no palpitations and no syncope. He is active with no exertional chest discomfort or dyspnea. He is walking regularly, but activities have been limited somewhat recently due to sciatica. Recent LDL is 54. MEDICATIONS: Outpatient Encounter Medications as of 09/03/2020 Medication Sig Dispense Refill ??? acyclovir (ZOVIRAX) [...] ??? metFORMIN (GLUCOPHAGE) 500 mg tablet Take 500 mg by mouth 2 (two) times a day with meals ??? metoprolol tartrate (LOPRESSOR) 50 mg immediate release tablet TAKE 2 TABLETS BY MOUTH AT LUNCHAND 1 TABLET AT BEDTIME 270 tablet 3 ??? pen needle, diabetic 31 gauge x 5/16 needle Use to inject 1-4 times daily as directed. 100 each 11 ??? simvastatin (ZOCOR) 40 mg tablet TAKE 1 TABLET BY MOUTH AT NIGHT 90 tablet 3 ??? [DISCONTINUED] metFORMIN XR (GLUCOPHAGE XR) 500 mg 24 hr tablet Take 1 tablet (500 mg total) bymouth daily with breakfast 90 tablet 3 No facility-administered encounter medications on file as of 09/03/2020. REVIEW OF SYSTEMS: General: No fever, chills, malaise or fatigue Eyes: No alterations in visual acuity ENT: No alterations in auditory acuity, no sore throat Pulmonary: No dyspnea, cough or hemoptysis Cardiac: No chest pain, orthopnea, PND or palpitations GI: No nausea, vomiting, diarrhea or constipation Musculoskeletal: No myalgias or arthralgias Skin: no rashes Neuro: No headaches, parathesias or focal neurological complaints Endocrine: No cold or heat intolerance Heme: no excessive bleeding or bruising PHYSICAL EXAM: BP 134/59 Pulse 78 Ht 154.9 cm (5' 1 ) Wt 118.4 kg (261 lb) BMI 49.32 kg/m?? General: Well appearing, No pain or distress, well nourished Eyes: KIYA/EOMI, Conjuctiva Clear ENT: External ears/nose normal Neck: Supple Vascular: Carotid upstrokes brisk bilaterally and without bruits. Respiratory: Clear to ausculation bilaterally; no wheezing/rales/rhonchi; respirations nonlabored Cardiovascular: RRR, normal S1 and S2. No S3 or S4. No murmurs or rubs. 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 I made no change in his excellent medical regimen today. I asked him to follow up with me annually, or sooner if needed. I again advised him to diet and exercise regularly. Hypertension associated with diabetes ([facility]/HCC) Assessment & Plan: Blood pressure is well controlled. Continue same therapy. Continue diet and exercise. 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 2 diabetes mellitus (CMS/HCC) Assessment & Plan: Lipids are well controlled. Continue statin therapy. documented in this encounter Miscellaneous Notes * Assessment & Plan Note - Farrukh Jiménez MD - 09/03/2020 11:10 AM CDT Associated Problem(s): 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 2 diabetes mellitus (CMS/HCC) ([facility]) Lipids are well controlled. Continue statin therapy. * Assessment & Plan Note - Farrukh Jiménez MD - 09/03/2020 11:10 AM CDT Associated Problem(s): Hypertensive heart disease without heart failure Blood pressure is well controlled. Continue same therapy. Continue diet and exercise. 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 I made no change in his excellent medical regimen today. I asked him to follow up with me annually, or sooner if needed. I again advised him to diet and exercise regularly. 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 metFORMIN (GLUCOPHAGE) 500 mg tablet Take 500 mg by mouth 2 (two) times a day with meals 09/17/2020 added in this encounter Care Teams Aircraft Metalsmith Relationship Specialty Start Date End Date Rickey Do MD PCP - General 05/20/16 11/08/20 documented as of this encounter
--- OUTSIDE RECORDS SUMMARY | 2024-02-10 01:48 | XMS_ITS | Encounter Summary ---
Author Organization [facility] Address [address] [place] [address] Care Team Providers Care Emergency Services Director Name Role Phone Rickey Do MD Primary Care Provider [phone] Reason for Visit * Reason Onset Date Comments Ernestina Forms Request 06/25/2020 Encounter Details Date Type Department Care Team (Late st Contact Info) Description 06/25/2020 Telephone [facility] [address] [place] [address] Rickey Do MD [address] [place] [id number] Ernestina Forms Request Social History Tobacco Use Types Packs/Day [...] on file 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 Spoke to Leandra and she said form was received. Pt notified. * Telephone Encounter - Olivia Daniel MA - 06/26/2020 8:58 AM CDT Spoke to Leandra at [employer], she said she will be faxing over another form. * Telephone Encounter - Phyllis Avila MA - 06/25/2020 4:24 PM CDT Faxed on Monday cannot find in media. Olivia can you have them send another one and have an fill it out please. * Telephone Encounter - An Soto NP - 06/25/2020 4:03 PM CDT Didn't you fax this Monday? Will you check please? * Telephone Encounter - Nohemi Baker - 06/25/2020 12:37 PM CDT Please assist. * Telephone Encounter - Roseline Baez - 06/25/2020 11:05 AM CDT Forms Request: Form requested: Surgical clearance form Date needed: As soon as possible How patient is delivering to office (fax, mail, or drop off): Patient gave to An on 06.19.20 How to return form to patient (fax, mail, or pickle water pump operator): Fax to number listed on form Caller's Callback #: [phone] Additional Comments: Patient is requesting a return call as soon as possible. He is scheduled for cataract surgery on 07.01.20 and is at risk of the surgery being cancelled if this form isn't receivedtoday. Sending a high priority message for this reason. Did you relay expectation for processing (up to 5-10 business days)? Yes documented in this encounter Plan of Treatment Not on file documented as of this encounter Visit Diagnoses Not on filedocumented in this encounter Care Teams Emergency Services Director Relationship Specialty Start Date End Date Rickey Do MD PCP - General 05/20/16 11/08/20 documented as of this encounter
--- OUTSIDE RECORDS SUMMARY | 2024-02-10 01:49 | XMS_ITS | Encounter Summary ---
Author Organization [facility] Address [address] [place] [address] Care Team Providers Care Net Repairer Name Role Phone Rickey Do MD Primary Care Provider [phone] Reason for Visit * Reason Comments Medicare Wellness Encounter Details Date Type Department Care Team (Late st Contact Info) Description 04/17/2020 10:30 AM AIR CHIEF MARSHAL Office Visit [facility] [address] [place] [address] [address] [place] [address] An Soto, [employer] MECH[employer]IC [address] [facility] [address] [place] [address] Encounter for Medicare annual wellness exam (Primary Dx); 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 mellitus ([facility]/HCC); Obstructive sleep apnea syndrome; Colon polyps; Type 2 diabetes mellitus with circulatory disorder (CMS/HCC); Coronary artery disease involving sh[place] ira coronary artery of [place] ira heart without angina pectoris; Bleeding external hemorrhoids; Hypertension associated with diabetes (CMS/HCC); Atherosclerosis of aorta (CMS/HCC); 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 2 diabetes mellitus (CMS/HCC); BMI 36.0-36.9,adult Social History Tobacco Use Types Packs/Day Years Used Date Smoking Tobacco: Former Cigarettes 1 15 Smokeless Tobacco: Never Comments:Smoking History Pac ks/day: 1 Packs Alcohol Use Standard Drinks/Week Comments Yes 0 (1 standard drink = 0.6 oz pur e alcohol) PHQ-2 Answer Date Recorded PHQ-2 Total Score (If total score is 3 or more points, staff should administer the PHQ-9) 0 04/17/2020 Sex and Gender Information Value Date Recorded Sex Assigned at Not on file Legal Sex Male 11:37 AM AIR CHIEF MARSHAL Gender Identity Not on file Sexual Orientation Not on file 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 Not on file documented as of this encounter Last Filed Vital Signs Vital Sign Reading Time Taken Comments Blood Pressure 152/62 04/17/2020 10:44 AM AIR CHIEF MARSHAL Pulse 84 04/17/2020 10:44 AM AIR CHIEF MARSHAL Temperature - - Respiratory Rate - - Oxygen Saturation 96% 04/17/2020 10:44 AM AIR CHIEF MARSHAL Inhaled Oxygen Concentration - - Weight 117.9 kg (260 lb) 04/17/2020 10:44 AM AIR CHIEF MARSHAL Height 180.3 cm (5' 10.98 ) 04/17/2020 10:44 AM AIR CHIEF MARSHAL Body Mass Index 36.28 04/17/2020 10:44 AM AIR CHIEF MARSHAL documented in this encounter Ordered Prescriptions Prescription Sig Dispense Quantity Refills Last Filled Start Date End Date aspirin 81 mg chewable tablet Take 1 tablet (81 mg total) by mouth daily 30 tablet 11 04/20/2020 insulin degludec-liragluti de (Xultophy 100/3.6) 100 unit-3.6 mg /mL (3 mL) insulin pen penIndications:Typ e 2 diabetes mellitus with circulatory disorder (HCC) Inject 24 Units under the skin daily 30 mL 11 04/17/2020 09/17/2020 documented in this encounter Progress Notes * An Soto, VASQUEZ - 04/17/2020 10:30 AM CST Ayden Santos HPI 74-year-old male here for annual Medicare wellness exam. Medical history is significant for type 2 diabetes, hypertension and hyperlipidemia. 180-230 fasting Recurrence of bleeding hemorrhoids. S/P hemorrhoidectomy. Adrenal cyst had previously been noted but there is no mention of Adrenal cyst or mass on the last CT scan from 2019. Diet: Eating mostly take out. Hard to control Medicare Health Risk Assessment Basic Information In general, would you say your health is: Fair Do you have an Advanced Directive (Living Will) and/or Durable Power of Grounds Person?: Yes - Please bring a copy to your next appointment Do you have trouble hearing the television or radio when other do not?: No Do you have to strain or struggle to hear/understand conversations?: No Over the last 2 weeks, how often have you been bothered by any of the following problems? Little Interest or Pleasure in Doing Things: Not at all Feeling Down, Depressed, or Hopeless: Not at all PHQ-2 Total Score (If total score is 3 or more points, staff should administer the PHQ-9): 0 In the past year, patient experienced: One or more falls in the last year: No Safety Do you have a working smoke detector in your home?: Yes Does your home have throw rugs, poor lighting, or a slippery bath tub/shower?: No Physical Activity How many days a week do you usually exercise?: 1-3 days per week How intense is your typical exercise?: Light (like stretching or slow walking) Nutrition Are you satisfied with your current weight?: No How would you rate your appetite?: Good Have you experienced any of the following problems currently or recently? Eating: No Grooming: No Bathing: No Walking: No Using the toilet: No Memory problems: No Difficulty speaking: No Have you experienced any of the following problems currently or recently? Laundry and/or housekeeping: No Handling Money: No Shopping: No Food preparation: No Transportation: No Taking and/or getting your own medications: No Problem List, Past Medical and Surgical History: Patient Active Problem List Diagnosis ??? Type 2 diabetes mellitus with circulatory disorder (CMS/HCC) ??? Hypertension associated with diabetes (CMS/HCC) ??? DDD (degenerative disc disease), cervical ??? Family history of colon cancer ??? 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 Vitamin D deficiency ??? Bleeding external hemorrhoids ??? BMI 36.0-36.9,adult ??? Renal cyst, acquired, right ??? DDD (degenerative disc disease), thoracolumbar ??? Screening for colon cancer ??? Coronary artery disease involving sh[place] ira coronary artery of shish[place] ira heart without angina pectoris ??? Abnormal findings on diagnostic imaging of lung ??? Medicare annual wellness visit, subsequent ??? Atherosclerosis of aorta (CMS/HCC) ??? Abnormal results of thyroid function studies ??? Sleep apnea ??? 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 mellitus (CMS/HCC) ??? Screening for prostate cancer ??? Colon polyps ??? Encounter for Medicare annual wellness exam Past Medical History: Diagnosis Date ??? Adiposity obesity ??? Colon polyps Colon polyps, hemorrhoidectomy ??? [...] colonoscopy with biopsy ??? TONSILLECTOMY Tonsillectomy Family History: Family History Problem Relation Age of Onset ??? Coronary artery disease Father Coronary artery disease; ??? Alzheimer's disease Mother ??? Heart attack Paternal Grandmother ??? Colon cancer Paternal Grandfather Social History: Social History Socioeconomic History ??? Marital status: [...] Gatherings with Friends and Family: ??? Attends Restorationism Services: ??? Active Member of Clubs or Organizations: ??? Attends Club or Organization Meetings: ??? Marital Status: Intimate Partner Violence: ??? Fear of Current or Ex-Partner: ??? Emotionally Abused: ??? Physically Abused: ??? Sexually Abused: Allergies: Allergies Allergen Reactions ??? Royce Inhibitors Cough Reaction: Cough, , ??? Amlodipine Edema Reaction: Edema, , ??? Farxiga [Dapagliflozin] Diarrhea Medications: Current Outpatient Medications: ??? acyclovir (ZOVIRAX) 400 mg tablet, TAKE 1 TABLET BY MOUTH TWO TIMES DAILY, Disp: 180 tablet, Rfl: 2 ??? blood glucose diagnostic (ONETOUCH VERIO) strip, smbg bid ac, Disp: 100 each, Rfl: 11 ??? cholecalciferol (VITAMIN D-3) 2,000 unit capsule, Take 2,000 Units by mouth daily, Disp: , Rfl: ??? coenzyme Q10 (COQ-10) 100 mg capsule, take 3 by Oral route every evening, Disp: 0, Rfl: 0 ??? docusate sodium (COLACE) 100 mg capsule, Take 100 mg by mouth daily, Disp: , Rfl: ??? finasteride (PROSCAR) 5 mg tablet, Take 5 mg by mouth daily, Disp: , Rfl: ??? hydrocortisone (ANUSOL-HC) 25 mg suppository, Insert 1 suppository (25 mg total) into the rectum 2 (two) times a day as needed for hemorrhoids, Disp: 30 suppository, Rfl: 0 ??? insulin lispro (HumaLOG KwikPen Insulin) 100 unit/mL insulin pen, Inject 1-4 times per day as directed. Max dose 30 units per day, Disp: 30 pen, Rfl: 3 ??? metFORMIN XR (GLUCOPHAGE XR) 500 mg 24 hr tablet, Take 1 tablet (500 mg total) by mouth daily with breakfast, Disp: 90 tablet, Rfl: 3 ??? metoprolol tartrate (LOPRESSOR) 50 mg immediate release tablet, TAKE 2 TABLETS BY MOUTH AT LUNCH AND 1 TABLET AT BEDTIME, Disp: 270 tablet, Rfl: 3 ??? pen needle, diabetic 31 gauge x 5/16 needle, Use to inject 1-4 times daily as directed., Disp:100 each, Rfl: 11 ??? simvastatin (ZOCOR) 40 mg tablet, TAKE 1 TABLET BY MOUTH NIGHTLY, Disp: 90 tablet, Rfl: 1 ??? aspirin 81 mg chewable tablet, Take 1 tablet (81 mg total) by mouth daily, Disp: 30 tablet, Rfl: 11 ??? insulin degludec-liraglutide (Xultophy 100/3.6) 100 unit-3.6 mg /mL (3 mL) insulin pen pen, Inject 24 Units under the skin daily, Disp: 30 mL, Rfl: 11 Immunization History Administered Date(s) Administered ??? Hep A, Adult 02/16/2000, 02/05/2001 ??? Influenza, Quadrivalent, High Dose, Preservative Free, Intrr 11/27/2019 ??? Influenza, Split 11/29/2011 ??? Influenza, Trivalent, High Dose, Split, Preservative Free, Intramuscular 11/19/2012, 11/20/2013, 12/03/2015, 11/20/2016, 11/19/2017, 11/21/2018 ??? Influenza, Trivalent, Intramuscular 01/22/2008, 11/29/2010 ??? Influenza, Trivalent, Recombinant, Egg Free, Preservative Free, Antibiotic Free, Intramuscular 11/10/2014 ??? Influenza, Unspecified 11/20/2017, 11/27/2019 ??? Pneumococcal Conjugate PCV 13 07/22/2014 ??? Pneumococcal Polysaccharide PPV23 11/29/2001, 12/12/2009, 11/29/2010 ??? Td, adsorbed 02/16/2000 ??? Tdap 02/25/2010 ??? ZOSTER LIVE 04/03/2008 ??? ZOSTER Recombinant 05/16/2018, 09/12/2018 Depression Screen: Over the last 2 weeks, how often [...] Down, Depressed, or Hopeless: Not at all STEADI Fall Risk Screening In the past year, patient experienced: One or more falls in the last year: No [facility] Status Review of Systems Constitutional: Negative. Negative for activity change, appetite change, chills, diaphoresis, fatigue, fever and unexpected weight change. HENT: Negative for congestion, sore throat, trouble swallowing and voice change. Eyes: Negative. Negative for photophobia, pain, discharge and visual disturbance. Respiratory: Negative. Negative for cough, chest tightness, shortness of breath and wheezing. Cardiovascular: Negative. Negative for chest pain, palpitations and leg swelling. Gastrointestinal: Positive for anal bleeding. Negative for abdominal distention, abdominal pain, blood in stool, constipation, diarrhea, nausea and vomiting. Endocrine: Negative. Negative for cold intolerance, heat intolerance, polydipsia, polyphagia and polyuria. Genitourinary: Negative. Negative for difficulty urinating, dysuria, flank pain and hematuria. Musculoskeletal: Negative. Negative for gait problem, joint swelling, neck pain and neck stiffness. Skin: Negative. Negative for pallor, rash and wound. Allergic/Immunologic: Negative. Neurological: Positive for numbness (Feet bilaterally). Negative for dizziness, syncope, speech difficulty, weakness, light-headedness and headaches. Hematological: Negative. Psychiatric/Behavioral: Negative. Negative for agitation, behavioral problems, confusion, decreasedconcentration and sleep disturbance. Vitals: Vitals: 04/17/20 1044 BP: 152/62 BP Location: Left arm Patient Position: Sitting Pulse: 84 SpO2: 96% Weight: 117.9 kg (260 lb) Height: 180.3 cm (5' 10.98 ) Exam: Physical Exam Vitals and nursing note reviewed. Constitutional: General: He is not in acute distress. Appearance: Normal appearance. He is well-developed. He is obese. He is not diaphoretic. HENT: Head: Normocephalic and atraumatic. Right Ear: Tympanic membrane, ear canal and external ear normal. Left Ear: Tympanic membrane, ear canal and external ear normal. Nose: Nose normal. Mouth/Throat: Mouth: Mucous membranes are moist. Pharynx: Oropharynx is clear. No oropharyngeal exudate. Eyes: General: No scleral icterus. Right eye: No discharge. Left eye: No discharge. Conjunctiva/sclera: Conjunctivae normal. Pupils: Pupils are equal, round, and reactive to light. Neck: Thyroid: No thyromegaly. Vascular: No carotid bruit. Cardiovascular: Rate and Rhythm: Normal rate and regular rhythm. Pulses: Normal pulses. Heart sounds: Normal heart sounds. No murmur. Pulmonary: Effort: Pulmonary effort is normal. Breath sounds: Normal breath sounds. No wheezing. Abdominal: General: Bowel sounds are normal. There is no distension. Palpations: Abdomen is soft. There is no mass. Tenderness: There is no abdominal tenderness. There is no right CVA tenderness, left CVA tenderness, guarding or rebound. Hernia: No hernia is present. Musculoskeletal: General: Normal range of motion. Cervical back: Normal range of motion and neck supple. Lymphadenopathy: Cervical: No cervical adenopathy. Skin: General: Skin is warm and dry. Capillary Refill: Capillary refill takes less than 2 seconds. Findings: No rash. Neurological: General: No focal deficit present. Mental Status: He is alert and oriented to person, place, and time. Comments: Diabetic foot exam: Left monofilament exam: normal 5/5 Right monofilament exam: normal 5/5 Psychiatric: Mood and Affect: Mood normal. Behavior: Behavior normal. Thought Content: Thought content normal. Judgment: Judgment normal. Care Team Providers: Patient Care Team: Rickey Do MD as PCP - General Primary Pharmacy/DME suppliers: [id number] - [place], [place] - [address] [facility] [address] [facility] [id number] [facility] [place], [place] - [address] [place] [address] [address] [facility] [address] [facility] [address] [facility] All Sites - [place], [place] - [address] [facility] [address] [facility] [place] [address] Detection of Cognitive Impairment: The patient does not have cognitive impairment based on direct observation, discussion with patientor family, or review of medical records. Advanced Directive Durable Power of Grounds Person: Discussed Today: Living Will: Discussed Today: Assessment and Plan: Diagnoses and all orders for this visit: Encounter for Medicare annual wellness exam (Primary) - PSA screen; Future 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 mellitus ([facility]) Assessment & Plan: Numbness and tingling in the feet bilaterally, worse at night. Protective sensation is still intactby monofilament. Reviewed diabetic foot care Obstructive sleep apnea syndrome Colon polyps Assessment & Plan: Three year surveillance interval recommended by GI. Schedule colonoscopy. Type 2 diabetes mellitus with circulatory disorder ([facility]) Assessment & Plan: Diabetes is not well controlled. Increase Xultopy [...] total 350 units and Humalog sliding scale premeal will refer to endocrinology for insulin pump Orders: - insulin degludec-liraglutide (Xultophy 100/3.6) 100 unit-3.6 mg /mL (3 mL) insulin pen pen; Inject 24 Units under the skin daily - Comprehensive metabolic panel; Future - Hemoglobin A1c; Future - eGFR Coronary artery disease involving sh[place] ira coronary artery of sh[place] ira heart without angina pectoris Assessment & Plan: Nonobstructing CAD. No angina. Preserved EF 60-70%. Continue aspirin, beta priscilla and statin for secondary prevention. Orders: - CBC with auto differential; Future - Differential, auto Bleeding external hemorrhoids Assessment & Plan: Refer to colorectal surgery. Continue stool softener and prunes. Anusul HC suppositories as needed. Orders: - Ambulatory referral to Colorectal Surgery; Future Hypertension associated with diabetes ([facility]/HCC) Atherosclerosis of aorta ([facility]) Assessment & Plan: Continue risk factor mangement. 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 2 diabetes mellitus ([facility]) Assessment & Plan: Established CAD. LDL 42, which is at goal. Continue simvastatin. Triglycerides elevated at 182. Discussed the importance of weight loss for lowering triglycerides. Orders: - Lipid panel; Future BMI 36.0-36.9,adult Assessment & Plan: BMI Follow-up includes: nutrition counseling, exercise counseling and education provided. Other orders - aspirin 81 mg chewable tablet; Take 1 tablet (81 mg total) by mouth daily Patient here for annual Medicare wellness visit and for review of complete medical problem list. All the elements of the plan were completed as outlined by [facility]. A copy of the prevention plan was given to the patient. I reviewed Medicare Wellness Questionnaire (other physicians involved in care, depression screen, advanced directives), cognitive/memory, and functional assessment. I reviewed and updated the complete problem list, medication list, family history, and immunization records with the patient. I provided preventive counseling and early detection interventions to the patient through health maintenance update and summary of today's office visit. Cosigned by Rickey Do MD at 04/23/2020 3:00 PM AIR CHIEF MARSHAL CHIEF MARSHAL CHIEF MARSHAL documented in this encounter Miscellaneous Notes * Assessment & Plan Note - An Soto NP - 04/20/2020 5:45 PM AIR CHIEF MARSHAL Associated Problem(s): Medicare annual wellness visit, subsequent (Resolved 02/10/2021) Reviewed previous labs and diagnostic test results. Chronic medical problems evaluated and management plans discussed with patient. Prescription medications, supplements, vitamins and immunizations reviewed. Discussed healthy diet for disease prevention. Recommended moving towards a plant based diet. Limit alcohol to no more than 7 drinks per week. Discussed importance of scheduling recommended screening tests. Discussed importance of regular physical examinations for health maintenance. CHIEF MARSHAL * Assessment & Plan Note - An Soto NP - 04/20/2020 5:44 PM AIR CHIEF MARSHAL Associated Problem(s): 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 2 diabetes mellitus (CMS/HCC) (HCC) Established CAD. LDL 42, which is at goal. Continue simvastatin. Triglycerides elevated at 182. Discussed the importance of weight loss for lowering triglycerides. CHIEF MARSHAL * Assessment & Plan Note - An Soto NP - 04/20/2020 5:36 PM AIR CHIEF MARSHAL Associated Problem(s): 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 mellitus (CMS/HCC) ([facility]) Numbness and tingling in the feet bilaterally, worse at night. Protective sensation is still intactby monofilament. Reviewed diabetic foot care CHIEF MARSHAL * Assessment & Plan Note - An Soto NP - 04/20/2020 5:33 PM AIR CHIEF MARSHAL Associated Problem(s): Coronary artery disease involving sh[place] ira coronary artery of sh[place] ira heart without angina pectoris Nonobstructing CAD. No angina. Preserved EF 60-70%. Continue aspirin, beta priscilla and statin for secondary prevention. CHIEF MARSHAL * Assessment & Plan Note - An Soto NP - 04/17/2020 11:02 AM AIR CHIEF MARSHAL Associated Problem(s): Atherosclerosis of aorta (CMS/HCC) ([facility]) Continue risk factor mangement. CHIEF MARSHAL * Assessment & Plan Note - An Soto NP - 04/17/2020 11:00 AM AIR CHIEF MARSHAL Associated Problem(s): Bleeding external hemorrhoids (Resolved 02/24/2022) Refer to colorectal surgery. Continue stool softener and prunes. Anusul HC suppositories as needed. CHIEF MARSHAL * Assessment & Plan Note - An Soto NP - 04/17/2020 10:58 AM AIR CHIEF MARSHAL Associated Problem(s): Type 2 diabetes mellitus with circulatory disorder (CMS/HCC) ([facility]) Diabetes is not well controlled. Increase Xultopy [...] total 350 units and Humalog sliding scale premeal will refer to endocrinology for insulin pump CHIEF MARSHAL CHIEF MARSHAL CHIEF MARSHAL * Assessment & Plan Note - Olivia Daniel MA - 04/17/2020 10:49 AM CSTAssociated Problem(s): Class 2 severe obesity due to excess calories with serious comorbidity and body mass index (BMI) of 37.0 to 37.9 in adult ([facility]) BMI Follow-up includes: nutrition counseling, exercise counseling and education provided. CHIEF MARSHAL * Assessment & Plan Note - An Soto NP - 04/17/2020 10:47 AM AIR CHIEF MARSHAL Associated Problem(s): Colon polyps (Resolved 08/19/2021) Three year surveillance interval recommended by GI. Schedule colonoscopy. CHIEF MARSHAL documented in this encounter Plan of Treatment Not on file documented as of this encounter Procedures Procedure Name Priority Date/Time Associated Diagnosis Comments EGFR Routine 04/17/2020 11:14 AM AIR CHIEF MARSHAL Type 2 diabetes mellitus with circulatory disorder ([facility]) DIFFERENTIAL AUTO Routine 04/17/2020 11: 14 AM AIR CHIEF MARSHAL Coronary artery disease involving sh[place] ira coronary artery of sh[place] ira heart without angina pectoris PSA SCREEN Routine 04/17/2020 11:14 AM AIR CHIEF MARSHAL Encounter for Medicare annual wellness exam CBC WITH AUTO DIFFERENTIAL Routine 04/17/2020 11:14 AM AIR CHIEF MARSHAL Coronary artery disease involving sh[place] ira coronary artery of sh[place] ira heart without angina pectoris HEMOGLOBIN A1C Routine 04/17/2020 11:14 AM AIR CHIEF MARSHAL Type 2 diabetes mellitus with circulatory disorder (CMS/HCC) LIPID PANEL Routine 04/17/2020 11:14 AM AIR CHIEF MARSHAL 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 2 diabetes mellitus (CMS/HCC) COMPREHENSIVE METABOLIC PANEL Routine 04/17/2020 11:14 AM AIR CHIEF MARSHAL Type 2 diabetes mellitus with circulatory disorder (CMS/HCC) documented in this encounter Results * eGFR (04/17/2020 11:14 AM AIR CHIEF MARSHAL) [employer] Signature eGFR 72 mL/min/1.7 3 m2 TAYLOR ZUNIGA Comment: Interpretive Data Reference Interval Normal ?>/= 90 mL/min/1.73m2 Mildly decreased* ? 60 - 89 mL/min/1.73m2 Mildly to moderately decreased ?45 - 59 mL/min/1.73m2 Moderately to severely decreased ??30 - 44 mL/min/1.73m2 Severely decreased ?15 - 29 mL/min/1.73m2 Kidney Failure ?< 15 ??mL/min/1.73m2 *Relative to young adult level Estimated glomerular filtration rate is determined by the CKD-EPI equation recommended by the National Kidney Foundation (KDIGO 2012 Clinical Practice Guideline for the Evaluation and Management of Chronic Kidney Disease. Kidney Intnl Suppl Feb 2012;3:1). The CKD-EPI equation should not be used for patients with unstable renal function and has not been validated in children and those over 70. Current interpretive data was last reviewed 2020 Blood specimen (specimen) 04/17/2020 11:14 AM AIR CHIEF MARSHAL 04/17/2020 2:19 PM AIR CHIEF MARSHAL us An Soto [employer] LAB BLOOD ORDERABLES Final Res ult [facility] [id number] [facility] [address] * (ABNORMAL) Differential, auto (04/17/2020 11:14 AM AIR CHIEF MARSHAL) Neutrophil abs 7.8(H) 1.7 - 6.5 K/cumm [facility] Imm gran abs 0.1 0.0 - 0.1 K/cumm [facility] Lymphocyte abs 2.0 0.8 - 3.3 K/cumm [facility] Monocyte abs 1.2(H) 0.2 - 0.8 K/cumm [facility] Eosinophil abs 0.2 0.0 - 0.5 K/cumm [facility] Basophil abs 0.1 0.0 - 0.1 K/cumm [facility] Neutrophil pct 69.4 % CERNER [facility]EN[facility] Comment: Interpretive Data Percent cell count reference ranges are not reported, since discordance with absolute values may lead to misinterpretation of CBC data. Current Interpretive Data was last revised on 2017. Imm gran pct 0.4 % [facility] Comment: Interpretive Data Percent cell count reference ranges are not reported, since discordance with absolute values may lead to misinterpretation of CBC data. Current Interpretive Data was last revised on 2017. Lymphocyte pct 18.2 % CERLATANYA [facility] Comment: Interpretive Data Percent cell count reference ranges are not reported, since discordance with absolute values may lead to misinterpretation of CBC data. Current Interpretive Data was last revised on 2017. Monocyte pct 10.3 % [facility] Comment: Interpretive Data Percent cell count reference ranges are not reported, since discordance with absolute values may lead to misinterpretation of CBC data. Current Interpretive Data was last revised on 2017. Eosinophil pct 1.3 % TAYLOR ZUNIGA Comment: Interpretive Data Percent cell count reference ranges are not reported, since discordance with absolute values may lead to misinterpretation of CBC data. Current Interpretive Data was last revised on 2017. Basophil pct 0.4 % TAYLOR ZUNIGA Comment: Interpretive Data Percent cell count reference ranges are not reported, since discordance with absolute values may lead to misinterpretation of CBC data. Current Interpretive Data was last revised on 2017. Blood specimen (specimen) 04/17/2020 11:14 AM AIR CHIEF MARSHAL 04/17/2020 2:19 PM AIR CHIEF MARSHAL us An Soto AIRCRAFT RIGGING AND CONTROLS MECHANIC LAB BLOOD ORDERABLES Final Res ult [facility] [address] [facility] [address] * PSA screen (04/17/2020 11:14 AM AIR CHIEF [place]) PSA-Total 3.41 <=6.20 ng/mL TAYLOR ZUNIGA Comment: Interpretive Data ?AGE ? SEX ?REFERENCE INTERVAL 0 minutes-150 years ?Female ?None 0 minutes-49 years ? Male ?None ? 50-59 years ? Male ?0-3.90 ? 60-69 years ? Male ?0-5.40 ? 70-79 years ? Male ?0-6.20 ? 80-150 years ?Male ?0-6.20 Current interpretive data last revised 2017. Testing performed by: [facility], [facility] [place]., [address] Blood specimen (specimen) 04/17/2020 11:14 AM AIR CHIEF [place] 04/17/2020 3:41 PM AIR CHIEF [place] us An Soto AIRCRAFT RIGGING AND CONTROLS MECHANIC LAB BLOOD ORDERABLES Final Res ult TAYLOR [facility] [address] [facility]. [place] [address] * Lipid panel (04/17/2020 11:14 AM AIR CHIEF [place]) Cholesterol 123 30 - 199 mg/dL TAYLOR ZUNIGA Comment: Interpretive Data Ages < or = 19 years ??Acceptable: ? <170 mg/dL ??Borderline high: ??170-199 mg/dL ??High: ? >or= 200 mg/dL Ages > or = 20 years ??Desirable: ?<200 mg/dL ??Borderline high: ??200-239 mg/dL ??High: ? >or= 240 mg/dL Literature References: 1. Expert Panel on Integrated Guidelines for Cardiovascular Health and Risk Reduction in Children and Adolescents. Pediatrics 2011;128:S213 2. NCEP Expert Panel. Circulation 2004;110:227 Current Interpretive Data was last revised on 2017. Triglycerides 133 <=149 mg/dL TAYLOR ZUNIGA Comment: Interpretive Data Ages < or = 9 years ??Acceptable: ? <75 mg/dL ??Borderline high: ??75-99 mg/dL ??High: ? >or= 100 mg/dL Ages 10 to 20 years ??Acceptable: ? <90 mg/dL ??Borderline high: ??90-129 mg/dL ??High: ? >or= 130 mg/dL Ages > or = 20 years ??Desirable: ?<150 mg/dL ??Borderline high: ??150-199 mg/dL ??High: ? 200-499 mg/dL ?Very high: ?? >or= 499 mg/dL Literature References: 1. Expert Panel on Integrated Guidelines for Cardiovascular Health and Risk Reduction in Children and Adolescents. Pediatrics 2011;128:S213 2. NCEP Expert Panel. Circulation 2004;110:227 Current Interpretive Data was last revised on 2017. HDL 42 >=40 mg/dL TAYLOR ZUNIGA Comment: Interpretive Data Ages < or = 19 years ??Acceptable: ? >45 mg/dL ??Borderline low: ?? 40-45 mg/dL ??Low: ? <40 mg/dL Ages > or = 20 years ??Desirable: ?>or= 60 mg/dL ??Low: ? <40 mg/dL Literature References: 1. Expert Panel on Integrated Guidelines for Cardiovascular Health and Risk Reduction in Children and Adolescents. Pediatrics 2011;128:S213 2. NCEP Expert Panel. Circulation 2004;110:227 Current Interpretive Data was last revised on 2017. LDL, calculated 54 <=129 mg/dL TAYLOR ZUNIGA Comment: Interpretive Data Ages < or = 19 years ??Acceptable: ? <110 mg/dL ??Borderline high: ??110-129 mg/dL ??High: ?>or= 130 mg/dL Ages > or = 20 years ??Optimal: ? <100 mg/dL ??Near optimal: ?100-129 mg/dL ??Borderline high: ?? 130-159 mg/dL ??High: ?>160 mg/dL Literature References: 1. Expert Panel on Integrated Guidelines for Cardiovascular Health and Risk Reduction in Children and Adolescents. Pediatrics 2011;128:S213 2. NCEP Expert Panel. Circulation 2004;110:227 Current Interpretive Data was last revised on 2017. Non-HDL Cholesterol 81 mg/dL TAYLOR ZUNIGA Comment: Interpretive Data Ages < or = 19 years ??Acceptable: ?<120 mg/dL ??Borderline high: ??120-144 mg/dL ??High: ?>145 mg/dL Ages > or = 20 years ??When triglycerides are >200 mg/dL, Non-HDL cholesterol is a secondary target of ? therapy with treatment goals that are 30 mg/dL greater than the LDL cholesterol target. ? Literature References: 1. Expert Panel on Integrated Guidelines for Cardiovascular Health and Risk Reduction in Children and Adolescents. Pediatrics 2011;128:S213 2. NCEP Expert Panel. Circulation 2004;110:227 Current Interpretive Data was last revised on 2017. Chol/HDL ratio 3 TAYLOR ZUNIGA Blood specimen (specimen) 04/17/2020 11:14 AM AIR CHIEF [place] 04/17/2020 2:19 PM AIR CHIEF MARSHAL Narrative TAYLOR ZUNIGA - 04/17/2020 3:24 PM AIR CHIEF [place] Has the patient been fasting for 8 hours or more?->Yes An Soto NP LAB BLOOD ORDERABLES Final Res ult [facility] [address] [facility]. [place] [address] * (ABNORMAL) Hemoglobin A1c (04/17/2020 11:14 AM AIR CHIEF [place]) Hgb A1C 8.4(H) 4.0 - 5.6 % TAYLOR ZUNIGA Comment:Testing performed by : [facility], [address] [place] [address]., [address] Estimated Average Glucose 194 mg/dL TAYLOR ZUNIGA Comment: The ADA recommends reporting an estimated Average Glucose (eAG) with all Hemoglobin A1c results using the equation derived from a study of 507 normal and diabetic adults. ??Minority populations were underrepresented and children were not included. ?? (Diabetes Care 31:1307-0362, 2008). ??The eAG is not equivalent to a fasting glucose. Testing performed by: [facility], [address] [place] [address]., [id number] Blood specimen (specimen) 04/17/2020 11:14 AM AIR CHIEF [place] 04/17/2020 3:41 PM AIR CHIEF [place] An Soto AIRCRA[employer] RIGGING AND CONTROLS MECHANIC LAB BLOOD ORDERABLES Final Res ult Performing Organization Address [facility] Co de Phone Number TAYLOR ZUNIGA [address] [facility] [employer] [place], [place] [id number] * (ABNORMAL) CBC with auto differential (04/17/2020 11:14 AM AIR CHIEF [place]) Pathologist [facility] WBC 11.2(H) 3.8 - 9.9 K/cumm [facility] Hgb 14.1 13.0 - 17.5 g/dL [facility] Hct 43.4 38.9 - 50.3 % [facility] Plt 337 150 - 400 K/cumm [facility] MPV 10.9 9.1 - 12.3 fL [facility] W RBC 4.76 4.30 - 5.80 M/cumm [facility] MCV 91.2 81.3 - 96.4 fL [facility] MCH 29.6 27.1 - 33.3 pg [facility] W MCHC 32.5 32.3 - 35.7 g/dL [facility] RDW CV 13.8 11.1 - 14.9 % [facility] RDW SD 46.5 35.7 - 48.1 fL [facility] NRBC abs 0.00 0.00 - 0.01 K/cumm [facility] Blood specimen (specimen) 04/17/2020 11:14 AM AIR CHIEF [place] 04/17/2020 2:19 PM AIR CHIEF [place] An [employer] AIRCRA[employer] RIGGING AND CONTROLS MECHANIC LAB BLOOD ORDERABLES Final Res ult Performing Organization Address [facility]/ZIP Co de Phone Number TAYLOR ZUNIGA [id number] [facility] [place] [address] * Comprehensive metabolic panel (04/17/2020 11:14 AM AIR CHIEF [place]) Sodium 137 135 - 145 mmol/L [facility] Potassium, pl 4.3 3.3 - 4.9 mmol/L [facility] Chloride 100 97 - 110 mmol/L [facility] CO2 25 22 - 32 mmol/L [facility] Anion gap 12 2 - 15 mmol/L [facility] BUN 17 8 - 25 mg/dL [facility] Creatinine 1.01 0.80 - 1.30 mg/dL [facility] Glucose 185 70 - 199 mg/dL [facility] Comment: Interpretive Data Fasting glucose >/= 126 mg/dl is diagnostic for diabetes. ?? Fasting is defined as no caloric intake for at least 8 hours. Fasting glucose between 100 mg/dl to 125 mg/dl is diagnostic of prediabetes. In a patient with classic symptoms of hyperglycemia or hyperglycemic crisis, a random glucose >/= 200 mg/dl is diagnostic for diabetes. In the absence of unequivocal hyperglycemia, results should be confirmed by repeat testing. The classification and Diagnosis of Diabetes Diabetes Care 2017;40 (Suppl. 1):S11. Current interpretive data was last revised 2017. Calcium 9.3 8.5 - 10.3 mg/dL [facility] Bilirubin, total 0.5 0.1 - 1.2 mg/dL [facility] Protein, pl 7.8 6.5 - 8.5 g/dL [facility] Albumin 4.1 3.5 - 5.0 g/dL [facility] Alk phos 89 40 - 130 Units/L [facility] ALT 38 7 - 55 Units/L [facility] AST 41 10 - 50 Units/L [facility] Blood specimen (specimen) 04/17/2020 11:14 AM AIR CHIEF [place] 04/17/2020 2:19 PM AIR CHIEF MARSHAL us An [employer] AIRCRAFT RIGGING AND CONTROLS MECHANIC LAB BLOOD ORDERABLES Final Res ult TAYLOR ZUNIGA [address] [facility]. [place] [address] documented in this encounter Visit Diagnoses Diagnosis Encounter for Medicare annual wellness exam- Primary 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 mellitus (CMS/HCC) (HCC) Obstructive sleep apnea syndrome Obstructive sleep apnea (adult) (pediatric) Colon polyps Benign neoplasm of colon 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) Coronary artery disease involving [place] ir[place] coronary artery of [place] heart without angina pectoris Bleeding external hemorrhoids External hemorrhoids with other complication Hypertension associated with diabetes (HCC) Unspecified essential hypertension Atherosclerosis of aorta (HCC) Atherosclerosis of aorta 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) BMI 36.0-36.9,adult documented in this encounter Historical Medications * This list may reflect changes made after this encounter. varicella-zoster (Shingrix, PF,) 50 mcg/0.5 mL vaccine Shingrix (PF) 50 mcg/0.5 mL intramuscular suspension, kit 1 added in this encounter Care Teams Net Repairer Relationship Specialty Start Date End Date Rickey Do MD PCP - General 05/20/16 11/08/20 documented as of this encounter
--- OUTSIDE RECORDS SUMMARY | 2024-02-10 01:49 | XMS_ITS | Encounter Summary ---
Author Organization [facility] Address [address] [place] [address] Phone Care Team Providers Care Manager Nc Name Role Phone Rickey Do MD Primary Care Provider [phone] Reason for Visit * Reason Onset Date Comments referral Colon 04/24/2020 Encounter Details Date Type Department Care Team (Late st Contact Info) Description 04/24/2020 Telephone 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 Do. Pt wants to wait until after he is vaccinated. Reminder set to call for August 2020. NG PLANT OPERATOR documented in this encounter Plan of Treatment Not on file documented as of this encounter Visit Diagnoses Not on filedocumented in this encounter Care Teams Manager Nc Relationship Specialty Start Date End Date Rickey Do MD PCP - General 05/20/16 11/08/20 documented as of this encounter
--- OUTSIDE RECORDS SUMMARY | 2024-02-10 01:49 | XMS_ITS | Encounter Summary ---
Author Organization [facility] Address [address] [facility] [address] [place] [address] Care Team Providers Care Healthcare Or Medical Name Role Phone Rickey Do MD Primary Care Provider [phone] Reason for Visit * Reason Comments Diabetes Encounter Details Date Type Department Care Team (Late st Contact Info) Description 05/08/2020 10:30 AM CDT Office Visit [facility] [address] [place] [address] [address] [place] [address] An Soto, AGED OR DISABLED CARE WORKER [address] [facility] [address] [place] [address] Class 2 severe obesity due to excess calories with serious comorbidity and body mass index (BMI) of 36.0 to 36.9 in adult (CMS/HCC) (Primary Dx); 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 mellitus (CMS/HCC); Type 2 diabetes mellitus with circulatory disorder (CMS/HCC); Hypertension associated with diabetes (CMS/HCC) Social History Tobacco Use Types Packs/Day Years [...] on file Legal Sex Male 11:37 AM DIRECTOR INPATIENT HEADACHE PROGRAM Gender Identity Not on file Sexual Orientation Not on file 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 Not on file documented as of this encounter Last Filed Vital Signs Vital Sign Reading Time Taken Comments Blood Pressure 132/60 05/08/2020 10:10 AM CDT Pulse 84 05/08/2020 10:10 AM CDT Temperature 37 ??C (98.6 ??F) 05/08/2020 10:10 AM CDT Respiratory Rate 18 05/08/2020 10:10 AM CDT Oxygen Saturation 97% 05/08/2020 10:10 AM CDT Inhaled Oxygen Concentration - - Weight 117 kg (258 lb) 05/08/2020 10:10 AM CDT Height 180.3 cm (5' 10.98 ) 05/08/2020 10:10 AM CDT Body Mass Index 36 05/08/2020 10:10 AM CDT documented in this encounter Ordered Prescriptions Prescription Sig Dispense Quantity Refills Last Filled Start Date End Date flash glucose sensor (FreeStyle Erick 2 Sensor) kitIndications:type 2 diabetes mellitus Change sensor every two weeks. 3 kit 3 05/08/2020 documented in this encounter Progress Notes * An Soto, AGED OR DISABLED CARE WORKER - 05/08/2020 10:30 AM CDT Images from the original note were not included. Ayden Santos 1945 Chief Complaint Patient presents with ??? Diabetes 74 yo male here for follow up of diabetes. Blood sugars have not been controlled and xultophy was increased at the last visit. He has started Nutrisystem and notes that blood sugars have decreased. Now 159-163 fasting. Decreased tingling in his feet and energy is improved since changing his diet and lowering blod sugars. Diet: Nutrisystem for diabetics Exercise: Still not motivated to exercise. Past Medical History: Diagnosis Date ??? Adiposity [...] Gatherings with Friends and Family: ??? Attends Yazdanism Services: ??? Active Member of Clubs or [...] mg tablet TAKE 1 TABLET BY MOUTH TWO TIMES DAILY 180 tablet 2 ??? aspirin 81 [...] Take 5 mg by mouth daily ??? hydrocortisone (ANUSOL-HC) 25 mg suppository Insert [...] mg tablet TAKE 1 TABLET BY MOUTH NIGHTLY 90 tablet 1 ??? varicella-zoster (Shingrix, PF,) 50 mcg/0.5 mL [...] wound. Allergic/Immunologic: Negative. Neurological: Positive for numbness (tingling feet). Negative for dizziness, syncope, speech difficulty, weakness, light-headedness and headaches. Hematological: Negative. Psychiatric/Behavioral: Negative. Negative for agitation, behavioral problems, confusion, decreasedconcentration and sleep disturbance. BMI Body mass index is 36 kg/m??. Vitals BP 132/60 (BP Location: Right arm, Patient Position: Sitting) Pulse 84 Temp 37 ??C (98.6 ??F) (Oral) Resp 18 Ht 180.3 cm (5' 10.98 ) Wt 117 kg (258 lb) SpO2 97% BMI 36.00 kg/m?? Physical Exam Vitals and nursing note [...] Diagnoses and all orders for this visit: Class 2 severe obesity due to excess calories with serious comorbidity and body mass index (BMI) of36.0 to 36.9 in adult ([facility]) (Primary) Assessment & Plan: BMI Follow-up includes: nutrition counseling, exercise counseling and education provided. Reinforced his motivation to continue NutriSystem for weight loss. Discussed potential barriers. Strategized how he could begin regular exercise to support weight loss. 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 mellitus ([facility]) Assessment & Plan: Neuropathy improved with lower blood sugars Type 2 diabetes mellitus with circulatory disorder ([facility] Assessment & Plan: Last Hgb A1C 8.4. Blood sugars are lower with Nutri System diet. Applied Erick Free Style 2 Sensor. Educated on use. Continue Zultophy 50 units daily with Humalog sliding scale. If he begins to experience hypoglycemia as his weight decreases, he will call the office and we will decrease Xultophy dose. Hypertension associated with diabetes ([facility]) Assessment & Plan: Blood pressure is well controlled. Reviewed low sodium diet and hidden sources of sodium in the diet to avoid. Other orders - flash glucose sensor (FreeStyle Erick 2 Sensor) kit; Change sensor every two weeks. 30 minute visit >50% spent in counseling regarding the above Return in about 2 months (around 07/08/2020) for Next scheduled follow up. documented in this encounter Miscellaneous Notes * Assessment & Plan Note - An Soto NP - 05/09/2020 8:54 AM CDT Associated Problem(s): Hypertensive heart disease without heart failure Blood pressure is well controlled. Reviewed low sodium diet and hidden sources of sodium in the diet to avoid. * Assessment & Plan Note - An Soto NP - 05/09/2020 8:49 AM CDT Associated Problem(s): Type 2 diabetes mellitus with circulatory disorder ([facility]) ([facility]) Last Hgb A1C 8.4. Blood sugars are lower with Nutri System diet. Applied Erick Free Style 2 Sensor. Educated on use. Continue Zultophy 50 units daily with Humalog sliding scale. If he begins to experience hypoglycemia as his weight decreases, he will call the office and we will decrease Xultophy dose. * Assessment & Plan Note - An Soto NP - 05/09/2020 8:48 AM CDT Associated Problem(s): 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 mellitus ([facility]) ([facility]) Neuropathy improved with lower blood sugars * Assessment & Plan Note - Phyllis Avila MA - 05/08/2020 10:18 AM CDT Associated Problem(s): Class 2 severe obesity due to excess calories with serious comorbidity and body mass index (BMI) of 37.0 to 37.9 in adult ([facility]) BMI Follow-up includes: nutrition counseling, exercise counseling and education provided. Reinforced his motivation to continue NutriSystem for weight loss. Discussed potential barriers. Strategized how he could begin regular exercise to support weight loss. documented in this encounter Plan of Treatment Not on file documented as of this encounter Visit Diagnoses Diagnosis Class 2 severe obesity due to excess calories with serious comorbidity and body mass index (BMI) of 36.0 to 36.9 in adult (HCC)- Primary 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 mellitus (CMS/HCC) (HCC) 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) Hypertension associated with diabetes (HCC) Unspecified essential hypertension documented in this encounter Care Teams Healthcare Or Medical Relationship Specialty Start Date End Date Rickey Do MD PCP - General 05/20/16 11/08/20 documented as of this encounter
--- OUTSIDE RECORDS SUMMARY | 2024-02-10 01:50 | XMS_ITS | Encounter Summary ---
Author Organization [facility] Address [address] [facility] [address] [place] [address] Care Team Providers Care Blockers Skiver Name Role Phone Rickey Do MD Primary Care Provider [phone] Reason for Visit * Reason Onset Date Comments Dr. Do-Records Request 03/09/2020 Encounter Details Date Type Department Care Team (Late st Contact Info) Description 03/09/2020 Telephone [facility] [address] [facility] [address] [place] [address] Rickey Do MD [address] [facility] [address] [place] [id number] Dr. 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 They just needed to know if the patient is testing 4 times a day, according to Medicare requirements. They will talk to the patient about this. The will fax over a form for these requirements for the patient's record as well. OPERATOR * Telephone Encounter - Mila Up MA - 03/17/2020 4:14 PM CST This form is not in Dr. Do's faxcom. Can you please call the company and ask them to refax it please. OPERATOR * Telephone Encounter - Nohemi Baker - 03/17/2020 3:37 PM CST Please assist...did you receive this fax? OPERATOR * Telephone Encounter - Patricia Jasmine - 03/17/2020 2:20 PM CST Call Back-Sending Message Caller's Concern: Gretaradha with [email or web address] [facility] called and states new records request for testing frequency was faxed to the office yesterday, wants to know if office received it. Please advise Caller's Callback #: [phone] OPERATOR * Telephone Encounter - Vasu Bajwa - 03/09/2020 3:46 PM CST Info faxed to [facility] today per Phyllis. OPERATOR * Telephone Encounter - Nohemi Baker - 03/09/2020 3:29 PM CST Please assist. Did you get this fax? OPERATOR * Telephone Encounter - Cynthia [place] - 03/09/2020 3:08 PM CST Records Request Status Update: Caller's Concern: funmliayo with [facility] sent a fax for a request for the last officevisit regarding the patient's free style george Date NETTA Form was faxed or mailed back to Practice: 03.06.20 Was NETTA form scanned into CHART>Media?: no Caller's Callback #: [phone] Additional Comments: Funmilayo stated that she will refax the request today. Funmilayo provided the fax number #[phone] Did you relay expectation for processing (allow 48 hours for faxed NETTA to be received; 7-10 business days for mailed NETTA to be received; if processing time has passed and message sent to practice, allow up to 24 hours for call back)? Yes OPERATOR OPERATOR documented in this encounter Plan of Treatment Not on file documented as of this encounter Visit Diagnoses Not on filedocumented in this encounter Care Teams Blockers Skiver Relationship Specialty Start Date End Date Rickey Do MD PCP - General 05/20/16 11/08/20 documented as of this encounter
--- OUTSIDE RECORDS SUMMARY | 2024-02-10 01:50 | XMS_ITS | Encounter Summary ---
Author Organization [facility] Address [address] [place] [address] Care Team Providers Care Cake Wringer Name Role Phone Rickey Do MD Primary Care Provider [phone] Reason for Visit * Reason Onset Date Comments Dr. Do-Medical Question 03/20/2020 Encounter Details Date Type Department Care Team (Late st Contact Info) Description 03/20/2020 Telephone [facility] [address] [place] [address] Rickey Do MD [address] [place] [id number] Dr. 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 Katarina is requesting a call back Caller's Callback #: [phone] Did you relay expectation for processing (up to 24 hours)? Yes ROAD MECHANIC documented in this encounter Plan of Treatment Not on file documented as of this encounter Visit Diagnoses Not on filedocumented in this encounter Care Teams Cake Wringer Relationship Specialty Start Date End Date Rickey Do MD PCP - General 05/20/16 11/08/20 documented as of this encounter
--- OUTSIDE RECORDS SUMMARY | 2024-02-10 01:51 | XMS_ITS | Encounter Summary ---
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
--- OUTSIDE RECORDS SUMMARY | 2024-02-10 01:51 | XMS_ITS | Encounter Summary ---
Author Organization [facility] Address [address] [place] [address] Care Team Providers Care Reheater Name Role Phone Rickey Do MD Primary Care Provider [phone] Reason for Visit * Reason Comments Coronary Artery Disease Encounter Details Date Type Department Care Team (Late st Contact Info) Description 09/04/2019 3:00 PM CDT Telemedicine [facility] Cardiology [address] [place] [address] Farrukh Jiménez MD [address] [place] [address] [address] [place] [address] Coronary artery disease involving mashpee coronary artery of mashpee heart without angina pectoris (Primary Dx); Hypertension associated with diabetes (CMS/HCC); 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 2 diabetes mellitus (CMS/HCC) Social History Tobacco Use Types Packs/Day [...] on file 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 Gender Identity Not on file Sexual Orientation Not on file 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 During the visit, I was located in clinic and the patient was located at home. The session started at 1502 and ended at 1513. The patient has been informed that the visit may not be secure and acknowledged the information. I have explained the option of participating in a telephone or video visit during the [facility] [place] [address] emergency to the patient. After being given an opportunity to ask questions about and discuss this type of visit, the patient verbally consented to proceeding with the telephone / video visit. The patient understands that this service replaces an office visit and they may be billed and/or responsible for any applicable copayments. Patient Name: Ayden Santos Provider: Farrukh Jiménez MD : [id number] Date of Service: 09/04/2019 Referring: Ernestina CHIEF COMPLAINT: Coronary Artery Disease HISTORY OF PRESENT ILLNESS: 73 y.o. male returns in follow-up of mild [...] chest discomfort or dyspnea. He is walking regularly. Recent LDL is 43. MEDICATIONS: Outpatient Encounter Medications as of 09/04/2019 Medication Sig Dispense Refill ??? acyclovir (ZOVIRAX) 400 mg tablet Take 1 tablet (400 mg total) by mouth 2 (two) times a day 180tablet 2 ??? blood glucose diagnostic (ONETOUCH VERIO) strip [...] Take 5 mg by mouth daily ??? insulin degludec-liraglutide (Xultophy 100/3.6) 100 unit-3.6 mg /mL (3 mL) insulin pen Inject 24 Units under the skin daily Maximum 50 units daily 30 mL 11 ??? insulin lispro (HumaLOG KwikPen Insulin) 100 unit/mL insulin pen Inject 1-4 times per day as directed. Max dose 30 units per day 30 pen 3 ??? lancets (onetouch ultrasoft) misc 1 each by other route as directed Check smbg bid ac and prn for dm uncontolled 180 each 3 ??? metFORMIN XR (GLUCOPHAGE XR) 500 mg 24 hr tablet TAKE 2 TABLETS BY MOUTH TWO TIMES DAILY 360 tablet 3 ??? metoprolol (LOPRESSOR) 50 mg tablet Take 100mg at lunch and 50mg at bedtime 270 tablet 3 ??? pen needle, diabetic (PEN NEEDLE) 31 gauge x 1/4 needle Inject 1 pen under the skin daily 100 each 3 ??? simvastatin (ZOCOR) 40 mg tablet Take 1 tablet (40 mg total) by mouth nightly 90 tablet 3 ??? valsartan-hydrochlorothiazide (DIOVAN-HCT) 320-12.5 mg per tablet Take 1 tablet by mouth daily 90 tablet 3 ??? [DISCONTINUED] BOTOX 100 unit recon soln ??? [DISCONTINUED] canagliflozin (INVOKANA) 100 mg tablet Take 1 tablet (100 mg total) by mouth daily 30 tablet 0 ??? [DISCONTINUED] insulin glargine (LANTUS,BASAGLAR) 100 unit/mL (3 mL) insulin pen Inject 2 Unitsunder the skin daily Increase by 2 units every 3 days until fasting blood sugar is less than 130 1 pen 3 No facility-administered encounter medications on file as of 09/04/2019. REVIEW OF SYSTEMS: General: No fever, chills, [...] no excessive bleeding or bruising PHYSICAL EXAM: Not done. Please disregard. BP 130/60 Ht 180.3 cm (5' 11 ) Wt 117 kg (258 lb) BMI 35.98 kg/m?? General: Well appearing, No pain or [...] for this visit: Coronary artery disease involving mashpee coronary artery of mashpee heart without angina pectoris (Primary) Assessment & Plan: Stable, mild coronary disease without angina. I made no change in his excellent medical regimen today. I asked him to follow up with me annually, or sooner if needed. I again advised him to diet and exercise regularly. Hypertension associated with diabetes (CMS/HCC) Assessment & Plan: Blood pressure is well controlled. Continue same therapy. Continue diet and exercise. 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 2 diabetes mellitus (CMS/HCC) Assessment & Plan: Lipids are well controlled. Continue statin therapy. documented in this encounter Miscellaneous Notes * Assessment & Plan Note - Farrukh Jiménez MD - 09/04/2019 3:10 PM CDT Associated Problem(s): 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 2 diabetes mellitus (CMS/HCC) (HCC) Lipids are well controlled. Continue statin therapy. * Assessment & Plan Note - Farrukh Jiménez MD - 09/04/2019 3:09 PM CDT Associated Problem(s): Hypertensive heart disease without heart failure Blood pressure is well controlled. Continue same therapy. Continue diet and exercise. * Assessment & Plan Note - Farrukh Jiménez MD - 09/04/2019 3:09 PM CDT Associated Problem(s): Coronary artery disease involving mashpee coronary artery of mashpee heart without angina pectoris Stable, mild coronary disease without angina. I made no change in his excellent medical regimen today. I asked him to follow up with me annually, or sooner if needed. I again advised him to diet and exercise regularly. documented in this encounter Plan of Treatment Not on file documented as of this encounter Visit Diagnoses Diagnosis Coronary artery disease involving mashpee coronary artery of mashpee heart without angina pectoris- Primary Hypertension associated with diabetes ([facility]) Unspecified essential hypertension 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 2 diabetes mellitus ([facility]) documented in this encounter Discontinued Medications Medication Sig Discontinue Reason Start Date End Da te insulin glargine (LANTUS,BASAGLAR) 100 unit/mL (3 mL) insulin pen Inject 2 Units under the skin daily Increase by 2 units every 3 days until fasting blood sugar is less than 130 Therapy completed 04/26/2019 09/04/2019 canagliflozin (INVOKANA) 100 mg tabletIndications:type 2 diabetes mellitus Take 1 tablet (100 mg total) by mouth daily Therapy completed 04/11/2019 09/04/2019 BOTOX 100 unit recon soln Therapy completed 09/25/2018 09/04/2019 documented as of this encounter Historical Medications * This list may reflect changes made after this encounter. docusate sodium (COLACE) 100 mg capsuleIndication s:constipation Take 1 capsule (100 mg total) by mouth daily 03/22/2023 finasteride (PROSCAR) 5 mg tablet Take 5 mg by mouth daily 11/09/2020 added in this encounter Care Teams Reheater Relationship Specialty Start Date End Date Rickey Do MD PCP - General 05/20/16 11/08/20 documented as of this encounter
--- OUTSIDE RECORDS SUMMARY | 2024-02-10 01:51 | XMS_ITS | Encounter Summary ---
Author Organization [facility] Address [address] [place] [address] Care Team Providers Care Basic Sciences Dean Name Role Phone Rickey Do MD Primary Care Provider [phone] Reason for Referral * Diagnostic Imaging (Routine) - Closed Specialty Diagnoses / Procedures Referred By Contac t Referred To Contact Diagnoses Fall, subsequent encounter Procedures XR Hip Right 2+ Vw An Soto NP [id number] Phone: tel: fax: [facility] [address] Referral ID Status Reason Start Date Expiration Date Visits Re quested Visits Authorized [id number] Closed 12/16/2019 01/14/2021 1 1 * Diagnostic Imaging (Routine) - Closed Specialty Diagnoses / Procedures Referred By Contac t Referred To Contact Diagnoses Fall, subsequent encounter Procedures XR Spine Lumbar Complete 4 Or More An Soto NP [id number] Phone: tel: fax: [facility] [address] Referral ID Status Reason Start Date Expiration Date Visits Re quested Visits Authorized [id number] Closed 12/16/2019 01/14/2021 1 1 Reason for Visit * Diagnostic Imaging (Routine) - Closed Specialty Diagnoses / Procedures Referred By Jp buckner Referred To Contact Diagnoses Fall, subsequent encounter Procedures XR Spine Lumbar Complete 4 Or More An Soto NP [id number] Phone: tel: fax: [phone] Referral ID Status Reason Start Date Expiration Date Visits Re quested Visits Authorized [id number] Closed 12/16/2019 01/14/2021 1 1 Encounter Details Date Type Department Care Team (Latest Contact Info) Description 12/16/2019 11:36 AM CDT - 12/16/2019 11:59 PM CDT Hospital Encounter [facility] [address] [place] [address] Rickey Do MD [address] [facility] [place] [address] An Soto NP [id number] Fall, subsequent encounter Discharge Disposition: Discharge to home or self [...] on file 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 Gender Identity Not on file Sexual Orientation Not on file 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 Not on file documented as of this encounter Medications at Time of Discharge blood glucose diagnostic (ONETOUCH VERIO) strip smbg bid ac 100 each 11 11/21/2018 cholecalciferol (VITAMIN D-3) 2,000 unit capsule Take 1 capsule (2,000 Units total) by mouth daily coenzyme Q10 (COQ-10) 100 mg capsule take 3 by Oral route every evening 0 0 04/11/2016 insulin degludec-liraglu tide (Xultophy 100/3.6) 100 unit-3.6 mg /mL (3 mL) insulin pen penIndications:t ype 2 diabetes mellitus Inject 50 Units under the skin daily Maximum 50 units daily 12 Syringe 3 12/16/2019 02/14/20 20 pen needle, diabetic 31 gauge x 5/16 needle Use to inject 1-4 times daily as directed. 100 each 11 12/16/2019 12/16/19 21 valsartan-hydroc hlorothiazide (DIOVAN-HCT) 320-12.5 mg per tablet Take 1 tablet by mouth daily 90 tablet 3 02/25/2019 02/24/19 21 acyclovir (ZOVIRAX) 400 mg tabletIndication s:Herpes simplex virus (HSV) infection TAKE 1 TABLET BY MOUTH TWO TIMES DAILY 180 tablet 2 09/09/2019 06/07/19 21 docusate sodium (COLACE) 100 mg capsuleIndicatio ns:constipation Take 1 capsule (100 mg total) by mouth daily 03/22/19 24 finasteride (PROSCAR) 5 mg tablet Take 5 mg by mouth daily 11/10/19 21 hydrocortisone (ANUSOL-HC) 25 mg suppository Insert 1 suppository (25 mg total) into the rectum 2 (two) times a day as needed for hemorrhoids 30 suppository 12/16/2019 11/10/19 21 insulin lispro (HumaLOG KwikPen Insulin) 100 unit/mL insulin penIndications:t ype 2 diabetes mellitus Inject 1-4 times per day as directed. Max dose 30 units per day 30 pen 3 05/15/2019 11/17/19 21 metFORMIN (GLUCOPHAGE) 500 mg tablet Take 1 tablet (500 mg total) by mouth daily with breakfast 90 tablet 3 12/16/2019 12/26/19 20 metoprolol tartrate (LOPRESSOR) 50 mg immediate release tablet TAKE 2 TABLETS BY MOUTH AT LUNCH AND 1 TABLET AT BEDTIME 270 tablet 3 10/29/2019 09/18/19 21 simvastatin (ZOCOR) 40 mg tablet TAKE 1 TABLET BY MOUTH NIGHTLY 90 tablet 1 10/28/2019 05/15/19 21 documented as of this encounter Discharge Disposition Disposition Code Departure Means Destination Discharge to home or self care documented in this encounter Plan of Treatment Not on file documented as of this encounter Procedures Procedure Name Priority Date/Time Associated Diagnosis Comments XR HIP RIGHT 2 OR 3 VIEWS Schedule Routine, Read Routine (OP Routine) 12/16/2019 12:02 PM CDT Fall, subsequent encounter XR SPINE LUMBAR COMPLETE 4 OR MORE VIEWS Schedule Routine, Read Routine (OP Routine) 12/16/2019 12:02 PM CDT Fall, subsequent encounter documented in this encounter Results * XR Hip Right 2+ Vw (12/16/2019 12:02 PM CDT) Anatomical Region Laterality Modality Lower Extremities, Hip, Pelvis Right C omputed Radiography 12/16/2019 12:0 8 PM CDT Impressions 12/16/2019 12:08 PM CDT 1. Unchanged multilevel degenerative disc disease of the lumbar spine most pronounced and moderate from L4 to S1. 2. 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 Electronically signed by: Lucho Laguna M.D. Narrative 12/16/2019 12:08 PM CDT EXAMINATION: XR SPINE LUMBAR 4 OR MORE VIEWS, XR HIP RIGHT 2 OR 3 VIEWS HISTORY: Low back and right hip pain FINDINGS: 4 views of the lumbar spine and 2 views of the right hip are submitted for interpretation with comparison made to lumbar spine radiographs dated 09/05/2016. There is unchanged multilevel degenerative disc disease most pronounced and moderate from L4 to S1. Alignment of the lumbar spine is normal. Lumbar vertebral body heights are normal. There is mild calcification of the abdominal aorta. There is mild left greater than right hip osteoarthritis. No fracture. Alignment of the right hip is normal. Procedure Note Lucho Laguna MD - 12/16/2019 EXAMINATION: XR SPINE LUMBAR 4 OR MORE VIEWS, XR HIP RIGHT 2 OR 3 VIEWS HISTORY: Low back and right hip pain FINDINGS: 4 views of the lumbar spine and 2 views of the right hip are submitted for interpretation with comparison made to lumbar spine radiographs dated 09/05/2016. There is unchanged multilevel degenerative disc disease most pronounced and moderate from L4 to S1. Alignment of the lumbar spine is normal. Lumbar vertebral body heights are normal. There is mild calcification of the abdominal aorta. There is mild left greater than right hip osteoarthritis. No fracture. Alignment of the right hip is normal. IMPRESSION: 1. Unchanged multilevel degenerative disc disease of the lumbar spine most pronounced and moderate from L4 to S1. 2. 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 Electronically signed by: Lucho Laguna M.D. An Soto BALL POINTS INSPECTOR IMG XR PROCEDURES Final Result * XR Spine Lumbar Complete 4 Or More (12/16/2019 12:02 PM CDT) Anatomical Region Laterality Modality Spine N/A Computed Radiogr aphy 12/16/2019 12:0 8 PM CDT Impressions 12/16/2019 12:08 PM CDT 1. Unchanged multilevel degenerative disc disease of the lumbar spine most pronounced and moderate from L4 to S1. 2. 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 Electronically signed by: Lucho Laguna M.D. Narrative 12/16/2019 12:08 PM CDT EXAMINATION: XR SPINE LUMBAR 4 OR MORE VIEWS, XR HIP RIGHT 2 OR 3 VIEWS HISTORY: Low back and right hip pain FINDINGS: 4 views of the lumbar spine and 2 views of the right hip are submitted for interpretation with comparison made to lumbar spine radiographs dated 09/05/2016. There is unchanged multilevel degenerative disc disease most pronounced and moderate from L4 to S1. Alignment of the lumbar spine is normal. Lumbar vertebral body heights are normal. There is mild calcification of the abdominal aorta. There is mild left greater than right hip osteoarthritis. No fracture. Alignment of the right hip is normal. Procedure Note Lucho Laguna MD - 12/16/2019 EXAMINATION: XR SPINE LUMBAR 4 OR MORE VIEWS, XR HIP RIGHT 2 OR 3 VIEWS HISTORY: Low back and right hip pain FINDINGS: 4 views of the lumbar spine and 2 views of the right hip are submitted for interpretation with comparison made to lumbar spine radiographs dated 09/05/2016. There is unchanged multilevel degenerative disc disease most pronounced and moderate from L4 to S1. Alignment of the lumbar spine is normal. Lumbar vertebral body heights are normal. There is mild calcification of the abdominal aorta. There is mild left greater than right hip osteoarthritis. No fracture. Alignment of the right hip is normal. IMPRESSION: 1. Unchanged multilevel degenerative disc disease of the lumbar spine most pronounced and moderate from L4 to S1. 2. 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 Electronically signed by: Lucho Laguna M.D. An Soto BALL POINTS INSPECTOR IMG XR PROCEDURES Final Result documented in this encounter Visit Diagnoses Diagnosis Fall, subsequent encounter documented in this encounter Care Teams Basic Sciences Dean Relationship Specialty Start Date End Date Rickey Do MD PCP - General 05/20/16 11/08/20 documented as of this encounter
--- OUTSIDE RECORDS SUMMARY | 2024-02-10 01:51 | XMS_ITS | Encounter Summary ---
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
--- OUTSIDE RECORDS SUMMARY | 2024-02-10 01:51 | XMS_ITS | Encounter Summary ---
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
--- OUTSIDE RECORDS SUMMARY | 2024-02-10 01:51 | XMS_ITS | Encounter Summary ---
Author Organization [facility] Address [address] [place] [address] Care Team Providers Care Musical Instrument Supervisor Name Role Phone Rickey Do MD Primary Care Provider Encounter Details Date Type Department Care Team (Late st Contact Info) Description 04/08/2019 Telephone [facility] [address] [place] [phone] Rickey Do MD [address] [place] [address] Social History Tobacco Use Types Packs/Day Years [...] on file 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 Gender Identity Not on file Sexual Orientation Not on file 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
--- OUTSIDE RECORDS SUMMARY | 2024-02-10 01:51 | XMS_ITS | Encounter Summary ---
Author Organization [facility] Address [address] [place] [address] Care Team Providers Care Fiberglass Insulation Installer Name Role Phone Rickey Do MD Primary Care Provider [phone] Reason for Referral * Diagnostic Imaging (Routine) - Closed Specialty Diagnoses / Procedures Referred By Contac t Referred To Contact Diagnoses Fall, subsequent encounter Procedures XR Spine Lumbar Complete 4 Or More An Soto NP [address] [place] [address] Phone: tel: fax: [facility] [address] Referral ID Status Reason Start Date Expiration Date Visits Re quested Visits Authorized [id number] Closed 12/16/2019 01/14/2021 1 1 * Diagnostic Imaging (Routine) - Closed Specialty Diagnoses / Procedures Referred By Contac t Referred To Contact Diagnoses Fall, subsequent encounter Procedures XR Hip Right 2+ Vw An Soto NP [address] [place] [address] Phone: tel: fax: [facility] [address] Referral ID Status Reason Start Date Expiration Date Visits Re quested Visits Authorized [id number] Closed 12/16/2019 01/14/2021 1 1 Reason for Visit * Reason Comments Diabetes Encounter Details Date Type Department Care Team (Late st Contact Info) Description 12/16/2019 10:30 AM CDT Office Visit [facility] 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 Not on file documented as of this encounter Last Filed Vital Signs Vital Sign Reading Time Taken Comments Blood Pressure 156/72 12/16/2019 11:17 AM CDT Pulse 88 12/16/2019 10:45 AM CDT Temperature 37 ??C (98.6 ??F) 12/16/2019 10:45 AM CDT Respiratory Rate 18 12/16/2019 10:45 AM CDT Oxygen Saturation 98% 12/16/2019 10:45 AM CDT Inhaled Oxygen Concentration - - Weight 118.4 kg (261 lb) 12/16/2019 10:45 AM CDT Height 180.3 cm (5' 10.98 ) 12/16/2019 10:45 AM CDT Body Mass Index 36.42 12/16/2019 10:45 AM CDT documented in this encounter Ordered Prescriptions Prescription Sig Dispense Quantity Refills Last Filled Start Date End Date insulin degludec-liraglut sumit (Xultophy 100/3.6) 100 unit-3.6 mg /mL (3 mL) insulin pen penIndications:ty pe 2 diabetes mellitus Inject 50 Units under the skin daily Maximum 50 units daily 12 Syringe 3 0 02/14/20 20 pen needle, diabetic 31 gauge x 5/16 needle Use to inject 1-4 times daily as directed. 100 each 11 0 12/16/19 21 hydrocortisone (ANUSOL-HC) 25 mg suppository Insert 1 suppository (25 mg total) into the rectum 2 (two) times a day as needed for hemorrhoids 30 suppository 0 11/10/19 21 metFORMIN (GLUCOPHAGE) 500 mg tablet Take 1 tablet (500 mg total) by mouth daily with breakfast 90 tablet 3 0 12/26/19 20 documented in this encounter Progress Notes * An Soto, LPN RN - 12/16/2019 10:30 AM CDT Images from the original note were not included. Ayden Santos 1945 Chief Complaint Patient presents with ??? Diabetes 74 yo male, here for diabetes follow up. Morning blood sugars 200-220 range. Afternoon blood [id number]. Humalog sliding scale pre meals. Requiring 3 premeal insulin injections per day, based on sliding scale. Taking Xultophy split into several doses daily, occasionally does not take a dose based on blood sugar readings.Able to tolerate only 500 mg of metformin, due to GI side effects. No regular exercise. Weight increased 5 lb. Fall 6 weeks ago with right posterior hip pain, radiating downto the ankle. Took ibuprofen and acetaminophen and used heat, with minimal improvement. Aching pain, worse at night. Past Medical History: Diagnosis Date ??? Adiposity obesity ??? Colon polyps Colon polyps, hemorrhoidectomy ??? Diabetes mellitus (CMS/HCC) Diabetes ??? Elevated PSA Elevated PSA ??? Herpes Herpes Simplex Virus ??? Hyperlipidemia Hyperlipidemia ??? Hypertension Hypertension ??? [...] file Occupational History ??? 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 Financial resource strain: Not on file ??? Food insecurity Worry: Not on file Inability: Not on file ??? Transportation needs Medical: Not on file Non-medical: Not on file Tobacco Use ??? Smoking status: Former Smoker Packs/day: 1.00 Years: 15.00 Pack years: 15.00 Types: Cigarettes ??? Smokeless tobacco: Never Used ??? Tobacco comment: Smoking History Packs/day: 1 Packs Substance and Sexual Activity ??? Alcohol use: Yes ??? Drug use: No ??? Sexual activity: Never Lifestyle ??? Physical activity Days per week: Not on file Minutes per session: Not on file ??? Stress: Not on file Relationships ??? Social connections Talks on phone: Not on file Gets together: Not on file Attends judaism service: Not on file Active member of club or organization: Not on file Attends meetings of clubs or organizations: Not on file Relationship status: Not on file ??? Intimate partner violence Fear of current or ex partner: Not on file Emotionally abused: Not on file Physically abused: Not on file Forced sexual activity: Not on file Other Topics Concern ??? Not on file Social History Narrative Agrees to blood/blood products: Y Agrees to blood/blood products: Y Allergies Allergen Reactions ??? Royce Inhibitors Cough [...] TWO TIMES DAILY 180 tablet 2 ??? blood glucose diagnostic (LibratoneUCH VERIO) strip smbg bid ac 100 each [...] TIMES DAILY 360 tablet 3 ??? metoprolol tartrate (LOPRESSOR) 50 mg immediate release tablet TAKE 2 TABLETS BY MOUTH AT LUNCHAND 1 TABLET AT BEDTIME 270 tablet 3 ??? simvastatin (ZOCOR) 40 mg tablet TAKE 1 TABLET BY MOUTH NIGHTLY 90 tablet 1 ??? valsartan-hydrochlorothiazide (DIOVAN-HCT) 320-12.5 mg per tablet Take 1 tablet by mouth daily 90 tablet 3 No current facility-administered medications for [...] joint swelling, neck pain and neck stiffness. Acute right hip pain Skin: Negative. Negative for pallor, rash and wound. Allergic/Immunologic: Negative. Neurological: Negative. Negative for dizziness, syncope, speech difficulty, weakness, light-headedness and headaches. Hematological: Negative. Psychiatric/Behavioral: Negative. Negative for agitation, behavioral problems, confusion, decreasedconcentration and sleep disturbance. BMI Body mass index is 36.42 kg/m??. Vitals BP 156/72 Pulse 88 Temp 37 ??C (98.6 ??F) (Oral) Resp 18 Ht 180.3 cm (5' 10.98 ) Wt 118.4 kg (261 lb) SpO2 98% BMI 36.42 kg/m?? Physical Exam Vitals signs and nursing note reviewed. Constitutional: General: He [...] equal, round, and reactive to light. Neck: Musculoskeletal: Normal range of motion and neck supple. Thyroid: No thyromegaly. Vascular: No carotid bruit. [...] rebound. Hernia: No hernia is present. Musculoskeletal: Normal range of motion. General: No deformity. Comments: Negative straight leg raise bilat. Full ROM of the right hip. Pain with internal rotationof the right hip. Lymphadenopathy: Cervical: No cervical adenopathy. Skin: General: [...] 2 diabetes mellitus with circulatory disorder (CMS/HCC) (Primary) Assessment & Plan: 11/28/19 Hgb A1C above goal at 8.9% Increase Xultopy to 50 units once daily. He is taking 4 insulin injections daily and would qualify for a Gabstrstyle george blood glucose monitor.Will order through specialty pharmacy. Discussed weight loss and daily exercise as lifestyle changes that would improve Hgb A1C. Follow up 3 months. Orders: - insulin degludec-liraglutide (Xultophy 100/3.6) 100 unit-3.6 mg /mL (3 mL) insulin pen pen; Inject 50 Units under the skin daily Maximum 50 units daily Fall, subsequent encounter Assessment & Plan: Continues to half right hip pain 6 weeks post fall. Xray lumbar spine and right hip. Orders: - XR Hip Right 2+ Vw; Future - XR Spine Lumbar Complete 4 Or More; Future BMI 36.0-36.9,adult Assessment & Plan: BMI Follow-up includes: nutrition counseling, exercise counseling and education provided. Other orders - metFORMIN (GLUCOPHAGE) 500 mg tablet; Take 1 tablet (500 mg total) by mouth daily with breakfast - hydrocortisone (ANUSOL-HC) 25 mg suppository; Insert 1 suppository (25 mg total) into the rectum 2 (two) times a day as needed for hemorrhoids - pen needle, diabetic 31 gauge x 5/16 needle; Use to inject 1-4 times daily as directed. Return in about 3 months (around 03/17/2020) for Next scheduled follow up. To further explain: Mr. Santos is testing blood sugar 4 times daily. Fasting and before each of 3 meals. WIND INSTRUMENTS INSPECTOR WIND INSTRUMENTS INSPECTOR WIND INSTRUMENTS INSPECTOR documented in this encounter Miscellaneous Notes * Assessment & Plan Note - An Soto NP - 12/22/2019 8:09 AM WOODWIND INSTRUMENTS INSPECTOR Associated Problem(s): Fall (Resolved 04/20/2020) Continues to half right hip pain 6 weeks post fall. Xray lumbar spine and right hip. WIND INSTRUMENTS INSPECTOR * Assessment & Plan Note - An Soto NP - 12/16/2019 11:19 AM CDT Associated Problem(s): Type 2 diabetes mellitus with circulatory disorder ([facility]) ([facility]) 11/28/19 Hgb A1C above goal at 8.9% Increase Xultopy to 50 units once daily. Continue premeal short acting insulin. He is taking 4 insulin injections daily and would qualify for a DataArtyle george blood glucose monitor.Will order through specialty pharmacy. Discussed weight loss and daily exercise as lifestyle changes that would improve Hgb A1C. Follow up 3 months. WIND INSTRUMENTS INSPECTOR WIND INSTRUMENTS INSPECTOR * Assessment & Plan Note - Phyllis Avila MA - 12/16/2019 10:50 AM CDT Associated Problem(s): Class 2 severe obesity due to excess calories with serious comorbidity and body mass index (BMI) of 37.0 to 37.9 in adult ([facility]) BMI Follow-up includes: nutrition counseling, exercise counseling and education provided. documented in this encounter Plan of Treatment Not on file documented as of this encounter Results * XR Spine Lumbar Complete 4 Or [...] signed by: Lucho Laguna M.D. An Soto NP IMG XR PROCEDURES Final Result * XR Hip Right 2+ Vw (12/16/2019 [...] signed by: Lucho Laguna M.D. An Soto LPN RN IMG XR PROCEDURES Final Result documented in this encounter Visit Diagnoses Diagnosis 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)- Primary Fall, subsequent encounter BMI 36.0-36.9,adult Fall, subsequent encounter documented in this encounter Discontinued Medications Medication Sig Discontinue Reason Start Date End Da te metFORMIN XR (GLUCOPHAGE XR) 500 mg 24 hr tablet TAKE 2 TABLETS BY MOUTH TWO TIMES DAILY 04/29/2019 12/16/2019 hydrocortisone (ANUSOL-HC) 25 mg suppository Insert 1 suppository (25 mg total) into the rectum 2 (two) times a day as needed for hemorrhoids Reorder 09/05/2019 12/16/2019 insulin degludec-liraglutide (Xultophy 100/3.6) 100 unit-3.6 mg /mL (3 mL) insulin penIndications:Type 2 diabetes mellitus with diabetic mononeuropathy, with long-term current use of insulin (HCC) Inject 24 Units under the skin daily Maximum 50 units daily 04/11/2019 12/16/2019 documented as of this encounter Care Teams Fiberglass Insulation Installer Relationship Specialty Start Date End Date Rickey Do MD PCP - General 05/20/16 11/08/20 documented as of this encounter
--- OUTSIDE RECORDS SUMMARY | 2024-02-10 01:51 | XMS_ITS | Encounter Summary ---
Author Organization [facility] Address [address] [place] [address] Care Team Providers Care Profile Saw Operator Name Role Phone Rickey Do MD Primary Care Provider [phone] Reason for Visit * Reason Onset Date Comments Hyperglycemia 04/08/2019 Encounter Details Date Type Department Care Team (Late st Contact Info) Description 04/08/2019 Nurse Triage [facility] [address] [place] [phone] Rickey Do MD [address] [place] [address] Social History Tobacco Use Types Packs/Day Years [...] on file Legal Sex Male 11:37 AM SPORTS EQUIPMENT SUPERVISOR Gender Identity Not on file Sexual Orientation Not on file 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 Caller has NON-URGENT medication question about med that PCP prescribed and triager unable to answer question Protocols used: DIABETES - HIGH BLOOD [id number] S=HIGH BLOOD SUGARS AND A1C - QUESTIONS B=Patient was seen by An Soto on 03/07/2019 and went to Urologist last week and had A1C done andwas told it was 8.7 and that the urologist would send the results to Dr. Do. He is calling to ask does he need another appointment or medication adjustment. Please advise patient at [phone] A=DISPOSITION PER GUIDELINE=DISCUSS WITH PCP AND CALL BACK BY NURSE TODAY R=[facility] instructions given, verbalized understanding TS EQUIPMENT SUPERVISOR * Telephone Encounter - Mary Villa RN - 04/08/2019 10:25 AM SPORTS EQUIPMENT SUPERVISOR Regarding: High Blood Sugars ----- Message from Danelle Spence sent at 04/08/2019 10:11 AM SPORTS EQUIPMENT SUPERVISOR ----- Symptom Based Call Chief Complaint: High Blood sugars Duration: Had A1c last week 8.7 Appointment Details: Red Flag Symptom - Pt asking if he needs appt Caller's Callback #: [phone] Additional Comments: Pt asking if we received the A1c results from Dr Jany Hill at [facility]. Said it was 8.7 done last week, Mon or he thinks. Asking does he need to make appt to come in to do something, taking insulin and metformin glucose running around 200. Taking quite a bit of insulin- 2 doseages of insulin If practice uses e-visit, condition meets e-visit criteria, and patient has MyChart did you offer e-visit?: No Did you relay expectation for call back (chamber worker: Red Flag 10-15 min; non- emergent up to 3 hours)(Practice: Red Flag warm transfer; non-emergent up to 24 hours)? yes TS EQUIPMENT SUPERVISOR documented in this encounter Plan of Treatment Not on file documented as of this encounter Visit Diagnoses Not on filedocumented in this encounter Care Teams Profile Saw Operator Relationship Specialty Start Date End Date Rickey Do MD PCP - General 05/20/16 11/08/20 documented as of this encounter
--- OUTSIDE RECORDS SUMMARY | 2024-02-10 01:51 | XMS_ITS | Encounter Summary ---
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
--- OUTSIDE RECORDS SUMMARY | 2024-02-10 01:51 | XMS_ITS | Encounter Summary ---
Author Organization [facility] Address [address] [place] [address] Care Team Providers Care Line Haul Driver Name Role Phone Rickey Do MD Primary Care Provider Reason for Visit * Reason Onset Date Comments An Medical 04/25/2019 Encounter Details Date Type Department Care Team (Late st Contact Info) Description 04/25/2019 Telephone [facility] [address] [place] [phone] Rickey Do MD 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 Unable to assess 05/13/2019 4:06 PM CDT documented as of this encounter Miscellaneous Notes * Telephone Encounter - Bhumika Keene MA - 04/25/2019 10:09 AM CST Please advise below. E TESTER * Telephone Encounter - Patricia Jasmine - 04/25/2019 9:36 AM CST General Medical Question/Miscellaneous-Sent Message: Caller's Concern: Patient called to inform An as advise during office visit on 04/11/19 regarding starting new medication called Invokana: patient only took it for 1 week and had to stop because it caused diarrhea, did not control over his bowels. Once he stop taking Invokana diarrhea issue was solved. Patient also states his blood glucose is in 200 in the morning even after taking Xultophy insulin. He is taking Xultophy 25 units in morning and 25 units in the evening. Please advise Caller's Callback #: [phone] Did you relay expectation for processing (up to 24 hours)? Yes E TESTER documented in this encounter Plan of Treatment Not on file documented as of this encounter Visit Diagnoses Not on filedocumented in this encounter Care Teams Line Haul Driver Relationship Specialty Start Date End Date Rickey Do MD PCP - General 05/20/16 11/08/20 documented as of this encounter
--- OUTSIDE RECORDS SUMMARY | 2024-02-10 01:51 | XMS_ITS | Encounter Summary ---
Author Organization [facility] Facility Care Team Providers Care Planting Material Unloader Name Role Phone Rickey Do MD Primary Care Provider Encounter Details Date Type Department Care Team (Latest Contact Info) Description 05/13/2019 Travel Social History Tobacco Use Types Packs/Day [...] on file Legal Sex Male 11:37 AM TIME STUDY STATISTICIAN Gender Identity Not on file Sexual Orientation [...] PM CDT documented as of this encounter Plan of Treatment Not on file documented as of this encounter Visit Diagnoses Not on filedocumented in this encounter Care Teams Planting Material Unloader Relationship Specialty Start Date End Date Rickey Do MD PCP - General 05/20/16 11/08/20 documented as of this encounter
--- OUTSIDE RECORDS SUMMARY | 2024-02-10 01:51 | XMS_ITS | Encounter Summary ---
Author Organization [facility] Address [address] [place] [address] Care Team Providers Care Line Erector Apprentice Name Role Phone Rickey Do MD Primary Care Provider [phone] Reason for Visit * Reason Onset Date Comments MOTORCYCLE POLICE OFFICER An Medical Question 05/08/2019 Encounter Details Date Type Department Care Team (Late st Contact Info) Description 05/08/2019 Telephone [facility] [address] [place] [address] An Soto, MOTORCYCLE POLICE OFFICER [address] [place] [address] MOTORCYCLE POLICE OFFICER An Medical Question Social History Tobacco Use Types [...] on file Legal Sex Male 11:37 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 Do. Will stop the lantus start humalog SS. Slide scale breakfast lunch supper only if you cannot eat call MOTORCYCLE POLICE OFFICER for advise <130 0u 131-150 2u 151-180-4u 181-200 6u 201-230 8u 231-250 10 u Called the patient explained to him what we are doing. He agrees. He realizes if the blood sugars do not get better controlled we will stop the Xultophy and start Lantus with the SS humalog. * Telephone Encounter - Mary Lou Avilez MA - 05/15/2019 10:39 AM CDT Please advise. * Telephone Encounter - Estela Graham - 05/15/2019 9:31 AM CDT Call Back-Sending Message Caller's Concern: Patient started taking Xultophy as prescribed by VASQUEZ Mccallum. It was not effective, so VASQUEZ Nolan prescribed Lantus. Patient said he was instructed to take both insulins and to increase the dose of Lantus over a period of time( every couple of days) which he has been doing. This morning he read the instructions on the box of Lantus which said to not mix insulins. Patient would like to know how to proceed? Please advise. Caller's Callback #: [phone] * Telephone Encounter - Bhumika Keene MA - 05/09/2019 4:54 PM CDT S/w pt relayed message below, pt verbalized understanding. * Telephone Encounter - An Soto NP - 05/09/2019 12:56 PM CDT He has a lot of xultophy at home. Plan is for him to continue his usual doses of that. Take 2 unitsof Lantus once a day and increase by 2 units every 3 days until blood sugar is control. So he will be using both insulins. * Telephone Encounter - Elsi Villaseñor MA - 05/08/2019 1:39 PM CDT Please advise * Telephone Encounter - Estela Graham - 05/08/2019 10:46 AM CDT General Medical Question/Miscellaneous-Sent Message: Caller's Concern: Patient was on the insulin Xultophy 100/3.6 for sometime, but it was not effective. As a result, VASQUEZ Nolan prescribed Lantus which he received in the mail today. Patient would like to know if she should take both insulins or only Lantus? Please advise. Caller's Callback #: [phone] Did you relay expectation for processing (up to 24 hours)? Yes documented in this encounter Plan of Treatment Not on file documented as of this encounter Visit Diagnoses Not on filedocumented in this encounter Care Teams Line Erector Apprentice Relationship Specialty Start Date End Date Rickey Do MD PCP - General 05/20/16 11/08/20 documented as of this encounter
--- OUTSIDE RECORDS SUMMARY | 2024-02-10 01:51 | XMS_ITS | Encounter Summary ---
Author Organization [facility] Address [address] [place] [address] Care Team Providers Care Radiation Oncology Therapist Name Role Phone Rickey Do MD Primary Care Provider [phone] Reason for Visit * Reason Onset Date Comments CHILD WELFARE ASSISTANT Charles-Medical Question 01/01/2020 Encounter Details Date Type Department Care Team (Late st Contact Info) Description 01/01/2020 Telephone [facility] [address] [place] [address] Rickey Do MD [address] [address] [place] [id number] CHILD WELFARE ASSISTANT Charles-Medical Question Social History Tobacco Use Types Packs/Day [...] on file Legal Sex Male 11:37 AM SILK SPOTTER Gender Identity Not on file Sexual Orientation Not on file 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 SPOTTER * Telephone Encounter - An Soto NP - 01/02/2020 6:32 PM CST Where would he like it sent or does he want a generic one? SPOTTER * Telephone Encounter - Milagros Nicolas MA - 01/01/2020 3:42 PM CST Called patient informed An was off today and a message will be sent to her for tomorrow... patient understood SPOTTER * Telephone Encounter - Cynthia Bradshaw - 01/01/2020 8:51 AM CST General Medical Question/Miscellaneous-Sent Message: Caller's Concern: Patient called and stated that he saw CHILD WELFARE ASSISTANT on 12.16.19 and spoke with her about sciatica pain and CHILD WELFARE ASSISTANT An recommended that the patient see physical therapist. Patient is requesting a script for physical therapy is mailed to his home address Caller's Callback #: [phone] Did you relay expectation for processing (up to 24 hours)? Yes SPOTTER documented in this encounter Plan of Treatment Not on file documented as of this encounter Visit Diagnoses Not on filedocumented in this encounter Care Teams Radiation Oncology Therapist Relationship Specialty Start Date End Date Rickey Do MD PCP - General 05/20/16 11/08/20 documented as of this encounter
--- OUTSIDE RECORDS SUMMARY | 2024-02-10 01:51 | XMS_ITS | Encounter Summary ---
Author Organization [facility] Address [address] [place] [address] Care Team Providers Care Hand Straightener Name Role Phone Rickey Do MD Primary Care Provider Reason for Visit * Reason Comments Follow-up Encounter Details Date Type Department Care Team (Late st Contact Info) Description 09/05/2019 10:15 AM CDT Office Visit [facility] [address] [place] [address] [address] [place] [address] An Soto, STRATEGY MANAGER [address] [facility] [address] [place] [address] Type 2 diabetes mellitus with circulatory disorder (CMS/HCC) (Primary Dx); Atherosclerosis of aorta (CMS/HCC); Morbid obesity (CMS/HCC); 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 2 diabetes mellitus (CMS/HCC); 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 mellitus (CMS/HCC); Obstructive sleep apnea syndrome; Grade II hemorrhoids; Coronary artery disease involving ute coronary artery of ute heart without angina pectoris; Adrenal cyst (CMS/HCC); BMI 35.0-35.9,adult Social History Tobacco Use Types [...] on file 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 Gender Identity Not on file Sexual Orientation Not on file 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 Not on file documented as of this encounter Last Filed Vital Signs Vital Sign Reading Time Taken Comments Blood Pressure 142/82 09/05/2019 6:11 PM CDT Pulse 95 09/05/2019 10:08 AM CDT Temperature 37.1 ??C (98.8 ??F) 09/05/2019 10:08 AM C DT Respiratory Rate 15 09/05/2019 10:08 AM CDT Oxygen Saturation 94% 09/05/2019 10:08 AM CDT Inhaled Oxygen Concentration - - Weight 116.6 kg (257 lb) 09/05/2019 10:08 AM CDT Height 180.3 cm (5' 11 ) 09/05/2019 10:08 AM CDT Body Mass Index 35.84 09/05/2019 10:08 AM CDT documented in this encounter Ordered Prescriptions Prescription Sig Dispense Quantity Refills Last Filled Start Date End Date hydrocortisone (ANUSOL-HC) 25 mg suppository Insert 1 suppository (25 mg total) into the rectum 2 (two) times a day as needed for hemorrhoids 30 suppository 0 12/16/19 20 documented in this encounter Progress Notes * An Soot, VASQUEZ - 09/05/2019 10:15 AM CDT Images from the original note were not included. Ayden Santos 1945 Chief Complaint Patient presents with ??? Follow-up 73-year-old male here for follow-up of type 2 diabetes. Blood sugars have not been well controlled.He is on Xultophy. In late April he was started on sliding scale insulin. He generally takes 1-2 injections of quick acting insulin per day. He checks blood sugars 5 times a day. [id number] fasting, 130 pre supper. He has early diabetic neuropathy and has noted paresthesias and decreased sensation in his feet. He exercises 3 days a week. He is morbidly obese with BMI of 35.9 and multiple comorbidities, including fatty liver, diabetes and coronary artery disease.. He has aortic atherosclerosis byCT. 150-210 fasting, 130 pre supper 3 x per week. He does not have an adrenal gland disorder. Previously imaged adrenal cyst has not been present on CT scans in 2017 and 2019. Past Medical History: Diagnosis Date ??? Adiposity [...] file Gets together: Not on file Attends episcopal service: Not on file Active member of [...] Hep A, Adult 02/16/2000, 02/05/2001 ??? Influenza, Split 11/29/2011 ??? Influenza, Trivalent, High Dose, Split, Preservative Free, Intramuscular 11/20/2013, 12/03/2015, 11/20/2017, 11/21/2018 ??? Influenza, Trivalent, Intramuscular 01/22/2008, 11/29/2010 ??? Influenza, Trivalent, Recombinant, Egg Free, Preservative Free, Antibiotic Free, Intramuscular 11/10/2014 ??? Influenza, Unspecified 11/21/2016, 11/20/2017 ??? Pneumococcal Conjugate PCV 13 07/22/2014 ??? [...] palpitations and leg swelling. Gastrointestinal: Positive for rectal pain. Negative for abdominal distention, abdominal pain, blood [...] sleep disturbance. BMI Body mass index is 35.84 kg/m??. Vitals BP 142/82 Pulse 95 Temp 37.1 ??C (98.8 ??F) (Oral) Resp 15 Ht 180.3 cm (5' 11 ) Wt 116.6 kg (257 lb) SpO2 94% BMI 35.84 kg/m?? Physical Exam Vitals signs and nursing [...] is no abdominal tenderness. There is no guarding or rebound. Hernia: No hernia is present. Musculoskeletal: Normal range of motion. Lymphadenopathy: Cervical: No cervical adenopathy. Skin: General: Skin is warm and dry. Capillary Refill: Capillary refill takes less than 2 seconds. Findings: No rash. Neurological: General: No focal deficit present. Mental Status: He is alert and oriented to person, place, and time. Comments: Diabetic foot exam: Left monofilament exam: normal 5/5 sites sensed Right monofilament exam: normal 5/5 sites sensed Psychiatric: Mood and Affect: Mood normal. Behavior: Behavior normal. Thought Content: Thought content normal. Judgment: Judgment normal. Diagnoses and all orders for this visit: Type 2 diabetes mellitus with circulatory disorder ([facility]) (Primary) Assessment & Plan: Blood sugars are better controlled with use of sliding scale short-acting insulin. They are still above goal most of the day. Check hemoglobin A1c to assess control. Increase exercise to 6/7 days a week as suggested by his manager van. Discussed that this will help to control blood sugars. Extensive discussion of low-carbohydrate diet. He continues to find this hard to follow due to eating all of his meals out. He is really not willing to consider cooking at home. Discussed low carb ideas for dining out. Orders: - Albumin Creatinine Ratio, Urine; Future Atherosclerosis of aorta ([facility]) Assessment & Plan: Discussed importance of lipid management and blood pressure controlled prevent progression. Morbid obesity ([facility]) Assessment & Plan: BMI 35.8 with serious comorbidities of type 2 diabetes, fatty liver, CAD, hyperlipidemia 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 2 diabetes mellitus ([facility]) - Lipid panel; Future 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 mellitus ([facility]) Assessment & Plan: Early diabetic neuropathy with paresthesias. Sensation to monofilament is intact. He notes that he has less sensation in his feet and sometimes has a pins and needles feeling. Discussed importance of controlling blood sugars to prevent increased neuropathy. Orders: - Hemoglobin A1c Obstructive sleep apnea syndrome Assessment & Plan: Continue CPAP use nightly and for naps. Patient is compliant and has good relief of daytime somnolence with CPAP use. Followed by Sleep Medicine. Grade II hemorrhoids Assessment & Plan: He Anusol HC suppositories. Keep stool soft. Continue stool softeners. Increase fruit and vegetable intake. Keep fluid intake high. If no improvement with hydrocortisone suppositories can consider referral to Colorectal surgery. Coronary artery disease involving ute coronary artery of ute heart without angina pectoris Assessment & Plan: Stable. No angina Continue aspirin ARB, beta-priscilla and statin for secondary prevention. Followed by Cardiology. Adrenal cyst (CMS/HCC) BMI 35.0-35.9,adult Assessment & Plan: BMI Follow-up includes: nutrition counseling, exercise counseling and education provided. Other orders - hydrocortisone (ANUSOL-HC) 25 mg suppository; Insert 1 suppository (25 mg total) into the rectum 2 (two) times a day as needed for hemorrhoids Return in about 3 months (around 12/06/2019) for Next scheduled follow up. documented in this encounter Miscellaneous Notes * Assessment & Plan Note - An Soto NP - 09/05/2019 6:27 PM CDT Associated Problem(s): 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 mellitus ([facility]) ([facility]) Early diabetic neuropathy with paresthesias. Sensation to monofilament is intact. He notes that he has less sensation in his feet and sometimes has a pins and needles feeling. Discussed importance of controlling blood sugars to prevent increased neuropathy. * Assessment & Plan Note - An Soto NP - 09/05/2019 6:14 PM CDT Associated Problem(s): Atherosclerosis of aorta (CMS/HCC) ([facility]) Discussed importance of lipid management and blood pressure controlled prevent progression. * Assessment & Plan Note - An Soto NP - 09/05/2019 6:14 PM CDT Associated Problem(s): Coronary artery disease involving ute coronary artery of ute heart without angina pectoris Stable. No angina Continue aspirin ARB, beta-priscilla and statin for secondary prevention. Followed by Cardiology. * Assessment & Plan Note - An Soto NP - 09/05/2019 6:13 PM CDT Associated Problem(s): Hemorrhoid (Resolved 11/05/2020) He Anusol HC suppositories. Keep stool soft. Continue stool softeners. Increase fruit and vegetable intake. Keep fluid intake high. If no improvement with hydrocortisone suppositories can consider referral to Colorectal surgery. * Assessment & Plan Note - An Soto NP - 09/05/2019 6:11 PM CDT Associated Problem(s): Hypertensive heart disease without heart failure Blood pressure is not well controlled, probably due to dietary indiscretion with high sodium meal last evening. He will check blood pressures at home and call if readings are above 135/85. Continue metoprolol, valsartan and hydrochlorothiazide. Reviewed low sodium diet and hidden sources of sodium in the diet to avoid. * Assessment & Plan Note - An Soto NP - 09/05/2019 6:09 PM CDT Associated Problem(s): Type 2 diabetes mellitus with circulatory disorder (CMS/HCC) (HCC) Blood sugars are better controlled with use of sliding scale short-acting insulin. They are still above goal most of the day. Check hemoglobin A1c to assess control. Increase exercise to 6/7 days a week as suggested by his manager van. Discussed that this will help to control blood sugars. Extensive discussion of low-carbohydrate diet. He continues to find this hard to follow due to eating all of his meals out. He is really not willing to consider cooking at home. Discussed low carb ideas for dining out. * Assessment & Plan Note - An Soto NP - 09/05/2019 6:09 PM CDT Associated Problem(s): Obstructive sleep apnea Continue CPAP use nightly and for naps. Patient is compliant and has good relief of daytime somnolence with CPAP use. Followed by Sleep Medicine. * Assessment & Plan Note - An Soto NP - 09/05/2019 10:26 AM CDT Associated Problem(s): Morbid obesity (HCC) (Resolved 11/05/2020) BMI 35.8 with serious comorbidities of type 2 diabetes, fatty liver, CAD, hyperlipidemia * Assessment & Plan Note - Bhumika Keene MA - 09/05/2019 10:10 AM CDTAssociated Problem(s): Class 2 severe obesity due to excess calories with serious comorbidity and body mass index (BMI) of 37.0 to 37.9 in adult (HCC) BMI Follow-up includes: nutrition counseling, exercise counseling and education provided. 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 ??Minority populations were underrepresented and children were not included. ?? (Diabetes Care 31:2749-1501, 2007). ??The eAG is not equivalent to a fasting glucose. Testing performed by: [facility], [address] [place] [address]., [id number] Blood specimen (specimen) 09/05/2019 11:03 AM CDT 09/05/2019 4:01 PM CDT us An Soto STRATEGY MANAGER LAB BLOOD ORDERABLES Final Res ult [facility] [address] [facility] Department [place] [address] * (ABNORMAL) Albumin Creatinine Ratio, Urine (09/05/2019 11:03 AM CDT) Albumin Ur 260.4 mg/L TAYLOR ZUNIGA Comment: Interpretive Data No reference range established. Current interpretive data was last revised 2018. Testing performed by: [facility], [address] [place] [address]., [address] Creatinine Ur 122.1 mg/dL TAYLOR ZUNIGA Comment: Interpretive Data No reference range established. Current interpretive data was last revised 2018. Testing performed by: [facility], [facility] [facility], [place]., [address] Albumin Creatinine Ratio, Ur 213(H) 1 - 29 mg/g TAYLOR ZUNIGA Comment:Testing performed by : [facility], [facility] [place]., [address] Urine 09/05/2019 11:0 3 AM CDT 09/05/2019 4:10 PM CDT us An Soto STRATEGY MANAGER LAB URINE ORDERABLES Final Res ult TAYLOR MOORE [address] [facility]. Department [place] [address] * Lipid panel (09/05/2019 11:03 AM CDT) Cholesterol 116 30 - 199 mg/dL TAYLOR ZUNIGA Comment: [...] Data was last revised on 2017. Triglycerides 113 <=149 mg/dL TAYLOR ZUNIGA Comment: Interpretive Data [...] Data was last revised on 2017. HDL 44 >=40 mg/dL TAYLOR ZUNIGA Comment: Interpretive Data [...] was last revised on 2017. LDL, calculated 49 <=129 mg/dL TAYLOR ZUNIGA Comment: Interpretive Data [...] was last revised on 2017. Non-HDL Cholesterol 72 mg/dL TAYLOR ZUNIGA Comment: Interpretive Data Ages [...] ratio 3 TAYLOR ZUNIGA Blood specimen (specimen) 09/05/2019 11:03 AM CDT 09/05/2019 2:56 PM CDT An Soto STRATEGY MANAGER LAB BLOOD ORDERABLES Final Res ult [facility]OR [facility]ON[facility] [address] [facility]. 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
--- OUTSIDE RECORDS SUMMARY | 2024-02-10 01:51 | XMS_ITS | Encounter Summary ---
Author Organization [facility] Address [address] [place] [address] Care Team Providers Care Spring Coiler Name Role Phone Rickey Do MD Primary Care Provider [phone] Encounter Details Date Type Department Care Team (Late st Contact Info) Description 04/26/2019 Orders Only [facility] [address] [place] [phone] An Soto, SERVICE MECHANIC [address] [facility] [place], [place] [id number] Social History Tobacco Use Types Packs/Day Years [...] on file 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 Gender Identity Not on file Sexual Orientation Not on file 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 Not on file documented as of this encounter Ordered Prescriptions Prescription Sig Dispense Quantity Refills Last Filled Start Date End Date insulin glargine (LANTUS,BASAGLAR) 100 unit/mL (3 mL) insulin pen Inject 2 Units under the skin daily Increase by 2 units every 3 days until fasting blood sugar is less than 130 1 pen 3 04/26/2019 0 documented in this encounter Plan of Treatment Not on file documented as of this encounter Visit Diagnoses Not on filedocumented in this encounter Care Teams Spring Coiler Relationship Specialty Start Date End Date Rickey Do MD PCP - General 05/20/16 11/08/20 documented as of this encounter
--- OUTSIDE RECORDS SUMMARY | 2024-02-10 01:51 | XMS_ITS | Encounter Summary ---
Author Organization [facility] Address [address] [place] [address] Care Team Providers Care Safety Spec Name Role Phone Rickey Do MD Primary Care Provider [phone] Reason for Visit * Reason Onset Date Comments Hip Injury 11/27/2019 Encounter Details Date Type Department Care Team (Late st Contact Info) Description 11/27/2019 Nurse Triage [facility] [address] [place] [phone] Rickey Do MD [address] [place] [address] Social History Tobacco Use Types Packs/Day Years [...] on file 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 States pain is about a 6/10, seems to be ok but more of an ache while sitting but when up walking on it causes more pain. No swelling or bruising noted, no deformity. Pt is not currently using any OTC pain relievers. RN gave home care advice and scheduled in office tomorrow for evaluation. To call if worsens. Reason for Disposition ? ? High-risk adult (e.g., age > 60, osteoporosis, chronic steroid use) Protocols used: HIP [id number] * Telephone Encounter - Mirtha Goodwin RN - 11/27/2019 2:05 PM CDT Regarding: Fall ----- Message from Estela Graham sent at 11/27/2019 2:04 PM CDT ----- Symptom Based Call COVID-19 Screening: Symptoms: No (11/27/2019 2:01 PM) Exposure: No (11/27/2019 2:01 PM) Positive COVID-19 test within the last 14 days: No (11/27/2019 2:01 PM) Chief Complaint: Fall Duration: Occurred a few weeks ago Why was appointment not scheduled? Red flag symptom Caller's Callback #: [phone] Additional Comments: Patient fell on his front porch a few weeks ago. He has pain in his hip when walking and sleeping at night. He would like an xray to determine if he has fracture. Please advise. Did you relay expectation for call back (art specialist: Red Flag 10-15 min; non- emergent up to 3 hours)(Practice: Red Flag warm transfer; non-emergent up to 24 hours)? Yes documented in this encounter Plan of Treatment Not on file documented as of this encounter Visit Diagnoses Not on filedocumented in this encounter Care Teams Safety Spec Relationship Specialty Start Date End Date Rickey Do MD PCP - General 05/20/16 11/08/20 documented as of this encounter
--- OUTSIDE RECORDS SUMMARY | 2024-02-10 01:51 | XMS_ITS | Encounter Summary ---
Author Organization [facility] Address [address] [place] [address] Care Team Providers Care Nuclear Fuel Processing Technician Name Role Phone Rickey Do MD Primary Care Provider [phone] Reason for Visit * Reason Comments Diabetes Encounter Details Date Type Department Care Team (Late st Contact Info) Description 04/11/2019 11:30 AM CONVEYOR BELT INSTALLER Office Visit [facility] [address] [place] [address] An Soto, MOBILE DEVELOPER [address] [place] [address] Type 2 diabetes mellitus with other circulatory complication, with long-term current use of insulin (CMS/[facility]) (Primary Dx); Coronary artery disease involving [place] coronary artery of [place] heart without angina pectoris; Type 2 diabetes mellitus with diabetic mononeuropathy, with long-term current use of insulin (CMS/HCC); BMI 35.0-35.9,adult Social History Tobacco Use [...] on file Legal Sex Male 11:37 AM CONVEYOR BELT INSTALLER Gender Identity Not on file Sexual Orientation Not on file 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 Not on file documented as of this encounter Last Filed Vital Signs Vital Sign Reading Time Taken Comments Blood Pressure 114/70 04/11/2019 11:21 AM CONVEYOR BELT INSTALLER Pulse 75 04/11/2019 11:21 AM CONVEYOR BELT INSTALLER Temperature 36.1 ??C (97 ??F) 04/11/2019 11:21 AM CONVEYOR BELT INSTALLER Respiratory Rate 16 04/11/2019 11:21 AM CONVEYOR BELT INSTALLER Oxygen Saturation 98% 04/11/2019 11:21 AM CONVEYOR BELT INSTALLER Inhaled Oxygen Concentration - - Weight 113.9 kg (251 lb) 04/11/2019 11:21 AM CONVEYOR BELT INSTALLER Height 180.3 cm (5' 10.98 ) 04/11/2019 11:21 AM CONVEYOR BELT INSTALLER Body Mass Index 35.02 04/11/2019 11:21 AM CONVEYOR BELT INSTALLER documented in this encounter Ordered Prescriptions Prescription Sig Dispense Quantity Refills Last Filled Start Date End Date canagliflozin (INVOKANA) 100 mg tabletIndications: type 2 diabetes mellitus Take 1 tablet (100 mg total) by mouth daily 30 tablet 04/11/2019 0 insulin degludec-liragluti de (Xultophy 100/3.6) 100 unit-3.6 mg /mL (3 mL) insulin penIndications:Typ e 2 diabetes mellitus with diabetic mononeuropathy, with long-term current use of insulin (HCC) Inject 24 Units under the skin daily Maximum 50 units daily 30 mL 11 04/11/2019 0 metFORMIN XR (GLUCOPHAGE XR) 500 mg 24 hr tablet Take 1 tablet (500 mg total) by mouth 2 (two) times a day 180 tablet 3 04/11/2019 0 documented in this encounter Progress Notes * An Soto, MOBILE DEVELOPER - 04/11/2019 11:30 AM CST Images from the original note were not included. Ayden Santos 1945 Chief Complaint Patient presents with ??? Diabetes 73-year-old male here for follow-up of type 2 diabetes. Recent outside hemoglobin A1C of 8. ERICA jerez 190-200 fasting in the last 2 weeks. BS 182 this a.m. Walking or treadmill 3-4 days per week. Eats most of his meals in restaurants, and has difficulty controlling carbohydrates portion sizes. Past Medical History: Diagnosis Date ??? Adiposity [...] file Gets together: Not on file Attends scientologist service: Not on file Active member of [...] Pneumococcal Polysaccharide PPV23 11/29/2001, 12/12/2009, 11/29/2010 ??? Td 02/16/2000 ??? Tdap 02/25/2010 ??? ZOSTER LIVE 04/03/2008 ??? ZOSTER Recombinant 05/16/2018, 09/12/2018 Current Outpatient Medications Medication Sig Dispense Refill ??? acyclovir (ZOVIRAX) 400 mg tablet Take 1 tablet (400 mg total) by mouth 2 (two) times a day 180tablet 2 ??? blood glucose diagnostic (ONETOUCH VERIO) strip smbg bid ac 100 each 11 ??? BOTOX 100 unit recon soln ??? cholecalciferol (VITAMIN D-3) 2,000 unit capsule Take 2,000 Units by mouth daily ??? coenzyme Q10 (COQ-10) 100 mg capsule take 3 by Oral route every evening 0 0 ??? insulin degludec-liraglutide (XULTOPHY 100/3.6) 100 unit-3.6 mg /mL (3 mL) insulin pen Inject 24 Units under the skin daily 30 mL 11 ??? lancets (onetouch ultrasoft) misc 1 each by other route as directed Check smbg bid ac and prn for dm uncontolled 180 each 3 ??? metFORMIN XR (GLUCOPHAGE XR) 500 mg 24 hr tablet Take 1 tablet (500 mg total) by mouth daily with breakfast 90 tablet 3 ??? metoprolol (LOPRESSOR) 50 mg [...] sleep disturbance. BMI Body mass index is 35.02 kg/m??. Vitals BP 114/70 (BP Location: Right arm, Patient Position: Sitting) Pulse 75 Temp 36.1 ??C (97 ??F) Resp 16 Ht 180.3 cm (5' 10.98 ) Wt 113.9 kg (251 lb) SpO2 98% BMI 35.02 kg/m?? Physical Exam Constitutional: General: He is not in acute distress. Appearance: He is well-developed. He is obese. He is not ill-appearing. HENT: Head: Normocephalic and atraumatic. Nose: Nose normal. Mouth/Throat: Mouth: Mucous membranes are moist. Pharynx: Oropharynx is clear. Eyes: Conjunctiva/sclera: Conjunctivae normal. Pupils: Pupils are equal, round, and reactive to light. Neck: Musculoskeletal: Normal range of motion and neck supple. Cardiovascular: Rate and Rhythm: Normal rate and regular rhythm. Pulses: Normal pulses. Heart sounds: Normal heart sounds. Pulmonary: Effort: Pulmonary effort is normal. Breath sounds: Normal breath sounds. Abdominal: General: Bowel sounds are normal. There is no distension. Palpations: Abdomen is soft. Tenderness: There is no abdominal tenderness. Musculoskeletal: Normal range of motion. Skin: General: Skin is warm and dry. Neurological: Mental Status: He is alert and oriented to person, place, and time. Sensory: No sensory deficit. Motor: No abnormal muscle tone. Coordination: Coordination normal. Deep Tendon Reflexes: Reflexes normal. Psychiatric: Mood and Affect: Mood normal. Behavior: Behavior normal. Thought Content: Thought content normal. Judgment: Judgment normal. Diabetic foot exam: Left monofilament exam: normal. Skin is dry but intact. Nails are normal. Right monofilament exam: normal. Skin is dry but intact. Nails are normal Diagnoses and all orders for this visit: Type 2 diabetes mellitus with other circulatory complication, with long-term current use of insulin([facility]) (Primary) Assessment & Plan: Not well controlled with hemoglobin A1c of [...] him to use that option more often. Coronary artery disease involving [place] coronary artery of [place] heart without angina pectoris Assessment & Plan: No angina. Stable. Continue aspirin, beta-priscilla, ARB and statin for secondary prevention. Followed by Cardiology. Type 2 diabetes mellitus with diabetic mononeuropathy, with long-term current use of insulin ([facility]) - insulin degludec-liraglutide (Xultophy 100/3.6) 100 unit-3.6 mg /mL (3 mL) insulin pen; Inject 24Units under the skin daily Maximum 50 units daily BMI 35.0-35.9,adult Assessment & Plan: BMI Follow-up includes: nutrition counseling, exercise counseling and education provided. Other orders - metFORMIN XR (GLUCOPHAGE XR) 500 mg 24 hr tablet; Take 1 tablet (500 mg total) by mouth 2 (two) times a day - canagliflozin (INVOKANA) 100 mg tablet; Take 1 tablet (100 mg total) by mouth daily Return in about 3 months (around 07/10/2019) for Next scheduled follow up. EYOR BELT INSTALLER documented in this encounter Miscellaneous Notes * Assessment & Plan Note - An Soto NP - 04/11/2019 5:38 PM CONVEYOR BELT INSTALLER Associated Problem(s): Type 2 diabetes mellitus with circulatory disorder ([facility]) ([facility]) Not well controlled with hemoglobin A1c of [...] him to use that option more often. EYOR BELT INSTALLER EYOR BELT INSTALLER * Assessment & Plan Note - An Soto NP - 04/11/2019 5:37 PM CONVEYOR BELT INSTALLER Associated Problem(s): Hypertensive heart disease without heart failure Blood pressure is well controlled. Continue valsartan HCT Reviewed low sodium diet and hidden sources of sodium in the diet to avoid. EYOR BELT INSTALLER * Assessment & Plan Note - An Soto NP - 04/11/2019 5:37 PM CONVEYOR BELT INSTALLER Associated Problem(s): Coronary artery disease involving [place] coronary artery of [place] heart without angina pectoris No angina. Stable. Continue aspirin, beta-priscilla, ARB and statin for secondary prevention. Followed by Cardiology. EYOR BELT INSTALLER * Assessment & Plan Note - Lauren Avila MA - 04/11/2019 11:29 AM CONVEYOR BELT INSTALLER Associated Problem(s): Class 2 severe obesity due to excess calories with serious comorbidity and body mass index (BMI) of 37.0 to 37.9 in adult (HCC) BMI Follow-up includes: nutrition counseling, exercise counseling and education provided. EYOR BELT INSTALLER documented in this encounter Plan of Treatment Not on file documented as of this encounter Visit Diagnoses Diagnosis Type 2 diabetes mellitus with other circulatory complication, with long-term current use of insulin ([facility])- Primary Coronary artery disease involving [place] coronary artery of [place] heart without angina pectoris Type 2 diabetes mellitus with diabetic mononeuropathy, with long-term current use of insulin ([facility]) BMI 35.0-35.9,adult documented in this encounter Discontinued Medications Medication Sig Discontinue Reason Start Date End Da te metFORMIN XR (GLUCOPHAGE XR) 500 mg 24 hr tablet Take 1 tablet (500 mg total) by mouth daily with breakfast 03/07/2019 04/11/2019 insulin degludec-liraglutide (XULTOPHY 100/3.6) 100 unit-3.6 mg /mL (3 mL) insulin penIndications:Type 2 diabetes mellitus with diabetic mononeuropathy, with long-term current use of insulin (HCC) Inject 24 Units under the skin daily 11/21/2018 04/11/2019 documented as of this encounter Care Teams Nuclear Fuel Processing Technician Relationship Specialty Start Date End Date Rickey Do MD PCP - General 05/20/16 11/08/20 documented as of this encounter
--- OUTSIDE RECORDS SUMMARY | 2024-02-10 01:51 | XMS_ITS | Encounter Summary ---
Author Organization [facility] Address [address] [place] [address] Care Team Providers Care Service Counter Cashier Name Role Phone Rickey Do MD Primary Care Provider [phone] Reason for Visit * Reason Comments Diabetes Encounter Details Date Type Department Care Team (Late st Contact Info) Description 03/07/2019 10:15 AM [employer] Office Visit [facility] [address] [place] [address] An Soto, SAND MILL OPERATOR CORE SAND [address] [place] [address] Type 2 diabetes mellitus with other circulatory complication, with long-term current use of insulin ([facility]) (Primary Dx); Coronary artery disease involving [place] coronary artery of [place] heart without angina pectoris; Obstructive sleep apnea syndrome; Incontinence of feces with fecal urgency; BMI 35.0-35.9,adult Social History Tobacco Use Types [...] on file Legal Sex Male 11:37 AM [employer] Gender Identity Not on file Sexual Orientation Not on file 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 Not on file documented as of this encounter Last Filed Vital Signs Vital Sign Reading Time Taken Comments Blood Pressure 120/60 03/07/2019 10:15 AM [employer] Pulse 81 03/07/2019 10:15 AM [employer] Temperature - - Respiratory Rate 15 03/07/2019 10:15 AM [employer] Oxygen Saturation 96% 03/07/2019 10:15 AM [employer] Inhaled Oxygen Concentration - - Weight 117 kg (258 lb) 03/07/2019 10:15 AM [employer] Height 180.3 cm (5' 11 ) 03/07/2019 10:15 AM [employer] Body Mass Index 35.98 03/07/2019 10:15 AM [employer] documented in this encounter Ordered Prescriptions Prescription Sig Dispense Quantity Refills Last Filled Start Date End Date metFORMIN XR (GLUCOPHAGE XR) 500 mg 24 hr tablet Take 1 tablet (500 mg total) by mouth daily with breakfast 90 tablet 3 03/07/2019 0 documented in this encounter Progress Notes * An Soto, SAND MILL OPERATOR CORE SAND - 03/07/2019 10:15 AM CST Images from the original note were not included. Ayden Santos 1945 Chief Complaint Patient presents with ??? Diabetes 73-year-old male initially seen in January for evaluation of diarrhea. Diarrhea resolved with decrease of metformin to 500 mg daily. He takes Xultopy for management of his diabetes. On his own he increased the dose to 26 unit in the evening and added 15 units in the a.m. Fasting blood sugar is sdn228, usually 230. 144 last evening. No hypoglycemic episodes. He is working to lose weight and has had a 3 lb weight loss. Now on the treadmill 10-20 min most days. Eats most of his meals in restaurants and is working to make better choices. Past Medical History: Diagnosis Date ??? Adiposity [...] resource strain: Not on file ??? Food insecurity: Worry: Not on file Inability: Not on file ??? Transportation needs: Medical: Not on file Non-medical: Not on file Tobacco Use ??? Smoking status: Former Smoker Packs/day: 1.00 Years: 15.00 Pack years: 15.00 Types: Cigarettes ??? Smokeless tobacco: Never Used ??? Tobacco comment: Smoking History Packs/day: 1 Packs Substance and Sexual Activity ??? Alcohol use: Yes ??? Drug use: No ??? Sexual activity: Never Lifestyle ??? Physical activity: Days per week: Not on file Minutes per session: Not on file ??? Stress: Not on file Relationships ??? Social connections: Talks on phone: Not on file Gets together: Not on file Attends jehovah's witness service: Not on file Active member of club or organization: Not on file Attends meetings of clubs or organizations: Not on file Relationship status: Not on file ??? Intimate partner violence: Fear of current or ex partner: Not [...] by mouth 2 (two) times a day 360 tablet 1 ??? metoprolol (LOPRESSOR) 50 mg tablet Take [...] facility-administered medications for this visit. PHQ Screening STEADI Fall Risk Screening Review of Systems Constitutional: Negative. Negative for [...] sleep disturbance. BMI Body mass index is 35.98 kg/m??. Vitals BP 120/60 (BP Location: Right arm, Patient Position: Sitting) Pulse 81 Resp 15 Ht 180.3 cm (5' 11 ) Wt 117 kg (258 lb) SpO2 96% BMI 35.98 kg/m?? Physical Exam Constitutional: General: He is not in acute distress. Appearance: Normal appearance. He is well-developed. He is obese. He is not ill- appearing or diaphoretic. HENT: Head: Normocephalic and atraumatic. Right [...] rate and regular rhythm. Pulses: Normal pulses. Dorsalis pedis pulses are 2+ on the right side and 2+ on the left side. Posterior tibial pulses are 2+ on the right side and 2+ on the left side. Heart sounds: Normal heart sounds. No murmur. Pulmonary: Effort: Pulmonary effort is normal. Breath sounds: Normal breath sounds. No wheezing. Abdominal: General: Bowel sounds are normal. There is no distension. Palpations: Abdomen is soft. There is no mass. Tenderness: There is no tenderness. There is no guarding. Hernia: No hernia is present. Musculoskeletal: Normal range of motion. Right foot: Normal range of motion. No deformity. Left foot: Normal range of motion. No deformity. Feet: Right Foot: Monofilament exam: normal. Protective Sensation: 6 sites tested. 6 sites sensed. Skin Integrity: Negative for ulcer, blister, skin breakdown, erythema, warmth, callus or dry skin. Left Foot: Monofilament exam: normal. Protective Sensation: 6 sites tested. 6 sites sensed. Skin Integrity: Negative for ulcer, blister, skin breakdown, erythema, warmth, callus or dry skin. Lymphadenopathy: Cervical: No cervical adenopathy. Skin: General: [...] circulatory complication, with long-term current use of insulin([facility]) (Primary) Assessment & Plan: Continue with exercise and weight loss. We reviewed healthy choices for restaurant eating. He can continue to increase his Xultopy by 2 units every 3 days to a maximum dose of 50 units per day. Coronary artery disease involving [place] coronary artery of [place] heart without angina pectoris Assessment & Plan: Stable, no angina. Continue aspirin, beta-priscilla, ARB and statin for secondary prevention. Followed by Cardiology Obstructive sleep apnea syndrome Assessment & Plan: Continue CPAP use nightly and for naps. Patient is compliant and has good relief of daytime somnolence with CPAP use. Followed by Sleep Medicine. Incontinence of feces with fecal urgency Assessment & Plan: Resolved with decrease in metformin to 500 mg daily. BMI 35.0-35.9,adult Assessment & Plan: BMI Follow-up includes: nutrition counseling, exercise counseling and education provided. Other orders - metFORMIN XR (GLUCOPHAGE XR) 500 mg 24 hr tablet; Take 1 tablet (500 mg total) by mouth daily with breakfast Return in about 3 months (around 06/06/2019) for Next scheduled follow up. [employer] documented in this encounter Miscellaneous Notes * Assessment & Plan Note - An Soto NP - 03/07/2019 6:33 PM [employer] Associated Problem(s): Incontinence of feces with fecal urgency (Resolved 04/20/2020) Resolved with decrease in metformin to 500 mg daily. [employer] * Assessment & Plan Note - An Soto NP - 03/07/2019 6:31 PM [employer] Associated Problem(s): Type 2 diabetes mellitus with circulatory disorder (CMS/HCC) (HCC) Continue with exercise and weight loss. We reviewed healthy choices for restaurant eating. He can continue to increase his Xultopy by 2 units every 3 days to a maximum dose of 50 units per day. [employer] * Assessment & Plan Note - An Soto NP - 03/07/2019 6:30 PM [employer] Associated Problem(s): Hypertensive heart disease without heart failure Blood pressure is well controlled. Continue valsartan HCT Reviewed low sodium diet and hidden sources of sodium in the diet to avoid. [employer] * Assessment & Plan Note - An Soto NP - 03/07/2019 6:29 PM [employer] Associated Problem(s): Coronary artery disease involving [place] coronary artery of [place] heart without angina pectoris Stable, no angina. Continue aspirin, beta-priscilla, ARB and statin for secondary prevention. Followed by Cardiology [employer] * Assessment & Plan Note - An Soto NP - 03/07/2019 10:38 AM [employer] Associated Problem(s): Obstructive sleep apnea Continue CPAP use nightly and for naps. Patient is compliant and has good relief of daytime somnolence with CPAP use. Followed by Sleep Medicine. [employer] * Assessment & Plan Note - Bhumika Keene MA - 03/07/2019 10:16 AM CSTAssociated Problem(s): Class 2 severe obesity due to excess calories with serious comorbidity and body mass index (BMI) of 37.0 to 37.9 in adult (HCC) BMI Follow-up includes: nutrition counseling, exercise counseling and education provided. [employer] documented in this encounter Plan of Treatment Not on file documented as of this encounter Visit Diagnoses Diagnosis Type 2 diabetes mellitus with other circulatory complication, with long-term current use of insulin (HCC)- Primary Coronary artery disease involving [place] coronary artery of [place] heart without angina pectoris Obstructive sleep apnea syndrome Obstructive sleep apnea (adult) (pediatric) Incontinence of feces with fecal urgency BMI 35.0-35.9,adult documented in this encounter Discontinued Medications Medication Sig Discontinue Reason Start Date End Da te metFORMIN XR (GLUCOPHAGE XR) 500 mg 24 hr tablet Take 1 tablet (500 mg total) by mouth 2 (two) times a day 02/07/2019 03/07/2019 documented as of this encounter Care Teams Service Counter Cashier Relationship Specialty Start Date End Date Rickey Do MD PCP - General 05/20/16 11/08/20 documented as of this encounter
--- OUTSIDE RECORDS SUMMARY | 2024-02-10 01:51 | XMS_ITS | Encounter Summary ---
Author Organization [facility] Address [address] [place] [address] Care Team Providers Care Tipple Supervisor Name Role Phone Rickey Do MD Primary Care Provider [phone] Reason for Visit * Reason Onset Date Comments Hyperglycemia 03/01/2019 Encounter Details Date Type Department Care Team (Late st Contact Info) Description 03/01/2019 Nurse Triage [facility] 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 Decreased metformin has helped bowel issues. Has increased his insulin on his own, taking 26 units in day and 26 units at night. BG still running high, today 175. Seems to be around 170's in AM. Asymptomatic. Requesting another appt to f/u before he leaves to go to [place]. RN gave home care advice and scheduled appt per pt requested times. To call back for symptoms or BG >300. Reason for Disposition ??? Blood glucose 60-240 mg/dl (3.5 -13 mmol/l) Protocols used: DIABETES - HIGH BLOOD [id number] CTOR OF COMMUNITY EDUCATION * Telephone Encounter - Mirtha Goodwin RN - 03/01/2019 9:50 AM DIRECTOR OF COMMUNITY EDUCATION Regarding: High blood sugar ----- Message from Estela Graham sent at 03/01/2019 9:46 AM DIRECTOR OF COMMUNITY EDUCATION ----- Symptom Based Call Chief Complaint: High blood sugar Duration: Not specified Appointment Details: Red flag symptom Caller's Callback #: [phone] Additional Comments: Patient saw VASQUEZ Nolan on 02/18/2019 in which his blood sugar was high. He was advised to schedule an appointment the following week. Patient would like to be seen on 03/06/2019, 03/07/2019, or 03/08/2019, preferably at 10am. He lives in [place] and would like to avoid traffic. Inaddition, patient is leaving for [place] on 03/10/2019. Please advise. If practice uses e-visit, condition meets e-visit criteria, and patient has MyChart did you offer e-visit?: No Did you relay expectation for call back (paint mixer machine: Red Flag 10-15 min; non- emergent up to 3 hours)(Practice: Red Flag warm transfer; non-emergent up to 24 hours)? N/A CTOR OF COMMUNITY EDUCATION documented in this encounter Plan of Treatment Not on file documented as of this encounter Visit Diagnoses Not on filedocumented in this encounter Care Teams Tipple Supervisor Relationship Specialty Start Date End Date Rickey Do MD PCP - General 05/20/16 11/08/20 documented as of this encounter
--- OUTSIDE RECORDS SUMMARY | 2024-02-10 01:51 | XMS_ITS | Encounter Summary ---
Author Organization [facility] Address [address] [place] [address] Care Team Providers Care Cutter Woodwind Reeds Name Role Phone Rickey Do MD Primary Care Provider [phone] Encounter Details Date Type Department Care Team (Late st Contact Info) Description 05/15/2019 Orders Only [facility] [address] [place] [phone] Kandy Callejas, PHOTOGRAPHIC PROCESS SCREEN MAKER [address] [place] [id number] Social History Tobacco Use Types Packs/Day Years [...] on file Legal Sex Male 11:37 AM INFORMATION ANALYST Gender Identity Not on file Sexual Orientation [...] PM CDT documented as of this encounter Ordered Prescriptions Prescription Sig Dispense Quantity Refills Last Filled Start Date End Date insulin lispro (HumaLOG KwikPen Insulin) 100 unit/mL insulin penIndications:typ e 2 diabetes mellitus Inject 1-4 times per day as directed. Max dose 30 units per day 30 pen 3 05/15/2019 11/16/2020 documented in this encounter Progress Notes * Kandy Monroy NP - 05/15/2019 3:01 PM CDT Slide scale breakfast lunch supper only if you cannot eat call PHOTOGRAPHIC PROCESS SCREEN MAKER for advise <130 0u 131-150 2u 151-180-4u 181-200 6u 201-230 8u 231-250 10 u Greater than 250 call dry house worker documented in this encounter Plan of Treatment Not on file documented as of this encounter Visit Diagnoses Not on filedocumented in this encounter Care Teams Cutter Woodwind Reeds Relationship Specialty Start Date End Date Rickey Do MD PCP - General 05/20/16 11/08/20 documented as of this encounter
--- OUTSIDE RECORDS SUMMARY | 2024-02-10 01:51 | XMS_ITS | Encounter Summary ---
Author Organization [facility] Address [address] [place] [address] Care Team Providers Care Civil Engineering Drafter Name Role Phone Rickey Do MD Primary Care Provider [phone] Reason for Visit * Reason Comments Hip Pain right side Encounter Details Date Type Department Care Team (Late st Contact Info) Description 11/28/2019 12:15 PM CDT Office Visit [facility] [address] [place] [phone] Kandy Callejas, FORENSIC IDENTIFICATION SPECIALIST [address] [place] [id number] Medicare annual wellness visit, subsequent (Primary Dx); Fall, initial encounter; 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 mellitus (CMS/HCC); Coronary artery disease involving [place] coronary artery of [place] heart without angina pectoris; BMI 35.0-35.9,adult; Atherosclerosis of aorta (CMS/HCC); Adrenal cyst (CMS/HCC); Type 2 diabetes mellitus with circulatory disorder (CMS/HCC); Obstructive sleep apnea syndrome; Renal cyst, acquired, right; Hypertension associated with diabetes (CMS/HCC); 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 2 diabetes mellitus (CMS/HCC); Screening for prostate cancer Social History Tobacco Use Types Packs/Day Years [...] on file Legal Sex Male 11:37 AM STABLE HAND Gender Identity Not on file Sexual Orientation Not on file 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 Not on file documented as of this encounter Last Filed Vital Signs Vital Sign Reading Time Taken Comments Blood Pressure 124/70 11/28/2019 12:19 PM CDT Pulse 82 11/28/2019 12:19 PM CDT Temperature - - Respiratory Rate 18 11/28/2019 12:19 PM CDT Oxygen Saturation 98% 11/28/2019 12:19 PM CDT Inhaled Oxygen Concentration - - Weight 116.1 kg (256 lb) 11/28/2019 12:19 PM CDT Height 180.3 cm (5' 11 ) 11/28/2019 12:19 PM CDT Body Mass Index 35.7 11/28/2019 12:19 PM CDT documented in this encounter Patient Instructions * Patient Instructions* Kandy Monroy FORENSIC IDENTIFICATION SPECIALIST - 11/28/2019 12:15 PM CDT Problem List Adrenal cyst (CMS/HCC) Current Assessment & Plan Stable no change on Ct Atherosclerosis of aorta ([facility]/HCC) Overview CT scan 11/21/2018 The abdominal aorta and branches are atherosclerotic. Current Assessment & Plan CT scan showed abdominal aortic and branches are atherosclerotic. Discussed the importance of lipidmanagement blood pressure control. Patient is stable. Relevant Orders Comprehensive metabolic panel CBC with auto differential RESOLVED: BMI 35.0-35.9,adult Overview BMI Follow-up includes: nutrition counseling, exercise counseling and education provided. Current Assessment & Plan BMI Follow-up includes: nutrition counseling, exercise counseling and education provided . Coronary artery disease involving [place] coronary artery of [place] heart without angina pectoris Current Assessment & Plan No angina this time. Continue aspirin ARB, beta-priscilla and statin. Followed by Cardiology. 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 mellitus (CMS/HCC) Current Assessment & Plan Patient is reporting pins and needles in his feet. He had a special inserts for his shoes but he said did not help. Foot exam is normal. Discussed the importance of controlling blood sugars. Fall Current Assessment & Plan Patient stumbled over side walk fell onto the porch. He was wearing supportive shoes but just stumbled. Denies hitting head. 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 2 diabetes mellitus ([facility]) Overview 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 2 diabetes mellitus Current Assessment & Plan Most recent lipid profile reviewed: Lab Results Component Value Date CHOL 116 09/05/2019 TRIG 113 09/05/2019 HDL 44 09/05/2019 LDL 46 11/02/2015 LDLCALC 49 09/05/2019 Labs pending Relevant Orders Lipid panel Hypertension associated with diabetes ([facility]) Overview BENIGN HYPERTENSION Current Assessment & Plan BP 124/70 (BP Location: Right arm, Patient Position: Sitting) Pulse 82 Resp 18 Ht 180.3 cm (5' 11 ) Wt 116.1 kg (256 lb) SpO2 98% BMI 35.70 kg/m?? On appropriate medication. Continue medication. Medicare annual wellness visit, subsequent - Primary Current Assessment & Plan Healthy lifestyle recommended, including regular exercise (daily aerobic & twice weekly resistance training), prudent diet, calcium & vitamin D supplementation, colonoscopy (starting @ age 50for average risk person),, periodic blood pressure monitoring, & bone-density testing (starting@ age 65 in average-risk person). For males PSA beginning at the age of 45 if warranted. Renal cyst, acquired, right Screening for prostate cancer Current Assessment & Plan The natural history of prostate cancer and ongoing controversy regarding screening and potential treatment outcomes of prostate cancer has been discussed with the patient. The meaning of a false positive PSA and a false negative PSA has been discussed. He indicates understanding of the limitations of this screening test and wishes to proceed with screening PSA testing. Relevant Orders PSA screen Sleep apnea Overview Sleep apnea Current Assessment & Plan encourage to fu pulmonary for sleep evaluation as scheduled encourage to use cpap as rx education risk benefits side affects of nonadherance Type 2 diabetes mellitus with circulatory disorder ([facility]) Overview Diabetes mellitus type II, uncontrolled Coronary artery disease Current Assessment & Plan Blood sugars are better controlled with the use of a sliding scale insulin. Check A1c today. Discuss low-carbohydrate, exercising. Relevant Orders Hemoglobin A1c documented in this encounter Progress Notes * Kandy Monroy NP - 11/28/2019 12:15 PM CDT Images from the original note were not included. MEDICARE SUBSEQUENT ANNUAL WELLNESS VISIT Ayden Santos Patient presents for [employer] medicare physical and review of chronic diseases. Patient filled out the Medicare Health Risk Assessment in its entirety, & we reviewed during the appointment, which was scanned into the chart. 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), end of life planning issues, functional ability for activities of daily living, presence of chronic painthat affects functional ability, exposure to relationship abuse, ongoing dental care, hearing &visual deficits, depression screening, fall risk screening (as well as evaluation for any injuries with reported falls), evaluation for cognitive impairment for any memory deficits along with functional deficits associated with memory loss, safety evaluation (including presence of smoke & carbon dioxide detectors, first aid kit, fire extinguisher, regular use of seat belt, regular use of sun screen, exposure to fall risks in home environment, use of safety features like stairs, rails & grab bars in home), ongoing diet & exercise habits (including the health quality of the diet & intensity of exercise), & any concerning changes in weight. Further, we evaluated any concerns of the patient regarding routine activities of daily living such as eating meals, bathing, dressing, using the toilet, & grooming as well as routine executive functions such as keeping house, managing finances, driving, shopping & preparing meals. We did discuss risk factors/conditions (if appropriate) for which additional interventions are recommended. Appropriate screening was discussed, including age-appropriate cancer screening along with bone-density testing. Vaccination status was evaluated & updated as needed, & specific health advice regarding mcc management was provided. Patient fell three weeks ago and tripped over the sidewalk and fell into the porch. His concerns are the scabbing of the right leg and hip pain as well as weakness in the right arm. Has had trouble sleeping due to the pain. It was a 8/10 and after tylenol he is 2/10. Medicare Health Risk Assessment Basic Information In general, would you say your health is: Good Do you have trouble hearing the television or radio when other do not?: No Do you have to strain or struggle to hear/understand conversations?: No Have you experienced any of the following problems currently or recently? Eating: No Grooming: No Bathing: No Walking: No Using the toilet: No Memory problems: No Difficulty speaking: No Have you experienced any of the following problems currently or recently? Laundry and/or housekeeping: No Handling Money: No Shopping: No Food preparation: No Transportation: No Taking and/or getting your own medications: No Depression Screen: PHQ Screening Over the last 2 weeks, [...] or more falls in the last year: (!) Yes How many times?: 1 Was the patient injured in the fall?: Yes Has trouble stepping up onto a curb: No Advised to use a cane or walker to get around safely: No Often has to voss to the toilet: No Feels unsteady when walking: No Has lost some feeling in feet: No Steadies self on furniture while walking at home: No Takes medicine that makes him/her feel lightheaded or more tired than usual: No Worried about falling: No Takes medicine to sleep or improve mood: No Needs to push with hands when rising from a chair: No Often feels sad or depressed: No Problem List, Past Medical and Surgical History: Patient Active Problem List Diagnosis ??? Herpes simplex virus (HSV) infection ??? Type 2 diabetes mellitus with circulatory disorder (CMS/HCC) ??? Hypertension associated with diabetes (CMS/HCC) ??? DDD (degenerative disc disease), cervical ??? Morbid obesity (CMS/HCC) ??? Family history of colon cancer ??? 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 Vitamin D deficiency ??? Benign neoplasm of large intestine ??? Renal cyst, acquired, right ??? Adrenal cyst (CMS/HCC) ??? DDD (degenerative disc disease), thoracolumbar ??? Screening for colon cancer ??? Coronary artery disease involving [place] coronary artery of [place] heart without angina pectoris ??? Abnormal findings on diagnostic imaging of lung ??? Medicare annual wellness visit, subsequent ??? Atherosclerosis of aorta (CMS/HCC) ??? Hemorrhoid ??? Abnormal results of thyroid function studies ??? Incontinence of feces with fecal urgency ??? Sleep apnea ??? 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 mellitus (CMS/HCC) ??? Fall ??? Screening for prostate cancer Past Medical History: Diagnosis Date ??? Adiposity [...] file Gets together: Not on file Attends latter day service: Not on file Active member of [...] products: Y Agrees to blood/blood products: Y Allergies: Allergies Allergen Reactions ??? Royce Inhibitors [...] Disp: 30 suppository, Rfl: 0 ??? insulin degludec-liraglutide (Xultophy 100/3.6) 100 unit-3.6 mg /mL (3 mL) insulin pen, Inject 24 Units under the skin daily Maximum 50 units daily, Disp: 30 mL, Rfl: 11 ??? insulin lispro (HumaLOG KwikPen Insulin) 100 unit/mL insulin pen, Inject 1-4 times per day as directed. Max dose 30 units per day, Disp: 30 pen, Rfl: 3 ??? metFORMIN XR (GLUCOPHAGE XR) 500 mg 24 hr tablet, TAKE 2 TABLETS BY MOUTH TWO TIMES DAILY, Disp: 360 tablet, Rfl: 3 ??? metoprolol tartrate (LOPRESSOR) 50 mg immediate release tablet, TAKE 2 TABLETS BY MOUTH AT LUNCH AND 1 TABLET AT BEDTIME, Disp: 270 tablet, Rfl: 3 ??? simvastatin (ZOCOR) 40 mg tablet, TAKE 1 TABLET BY MOUTH NIGHTLY, Disp: 90 tablet, Rfl: 1 ??? valsartan-hydrochlorothiazide (DIOVAN-HCT) 320-12.5 mg per tablet, Take 1 tablet by mouth daily, Disp: 90 tablet, Rfl: 3 Vitals: Vitals BP 124/70 (BP Location: Right arm, Patient Position: Sitting) Pulse 82 Resp 18 Ht 180.3 cm (5' 11 ) Wt 116.1 kg (256 lb) SpO2 98% BMI 35.70 kg/m?? Body mass index is 35.7 kg/m??. Exam: Physical Exam Vitals signs and nursing note reviewed. Constitutional: Appearance: Normal appearance. He is well-developed. He is obese. HENT: Head: Normocephalic and atraumatic. Right Ear: Tympanic membrane, ear canal and external ear normal. Left Ear: Tympanic membrane, ear canal and external ear normal. Nose: Nose normal. Mouth/Throat: Mouth: Mucous membranes are moist. Pharynx: Oropharynx is clear. Eyes: General: Right eye: No discharge. Left eye: No discharge. Conjunctiva/sclera: Conjunctivae normal. Pupils: Pupils are equal, round, and reactive to light. Neck: Musculoskeletal: Normal range of motion and neck supple. Cardiovascular: Rate and Rhythm: Normal rate and regular rhythm. Pulses: Normal pulses. Heart sounds: Normal heart sounds. No murmur. No friction rub. Pulmonary: Effort: Pulmonary effort is normal. Breath sounds: Normal breath sounds. No wheezing, rhonchi or rales. Abdominal: General: Bowel sounds are normal. There is no distension. Palpations: Abdomen is soft. Tenderness: There is no abdominal tenderness. Genitourinary: Penis: Normal. Scrotum/Testes: Normal. Prostate: Normal. Musculoskeletal: Normal range of motion. General: No swelling. Right lower leg: No edema. Left lower leg: No edema. Comments: Decreased ROM of the right shoulder 90/100% Skin: General: Skin is warm and dry. Findings: No bruising or rash. Neurological: General: No focal deficit present. Mental Status: He is alert and oriented to person, place, and time. Deep Tendon Reflexes: Reflexes are normal and symmetric. Psychiatric: Mood and Affect: Mood normal. Behavior: Behavior normal. Thought Content: Thought content normal. Judgment: Judgment normal. Care Team Providers: Patient Care Team: Rickey Do MD as PCP - General Primary Pharmacy/DME suppliers: [id number] - [place], [place] - [address] [place] [address] [facility] [place] [id number] [facility] [place], [place] - [address] [place] [address] [id number] [facility] [address] [facility] - [place], [place] - [address] [facility] [address] [facility] [place] [address] Detection of Cognitive Impairment: The patient does not have cognitive impairment based on direct observation, discussion with patientor family, or review of medical records. Health Maintenance: Health Maintenance Topics with due status: Overdue Topic Date Due Dilated Eye Exam 03/18/2019 Health Maintenance Topics with due status: Due On Topic Date Due Regular Well Visit/Exam 11/22/2019 Health Maintenance Topics with due status: Not Due Topic Last Completion Date DTaP/Tdap/Td Vaccine 02/25/2010 Colon Cancer Screening-Colonoscopy 03/10/2017 Foot Exam 09/05/2019 Lipid Panel 09/05/2019 Hemoglobin A1C 09/05/2019 Urine Microalbumin 09/05/2019 Fall Risk Assessment 11/28/2019 Depression Screening-PHQ 11/28/2019 Health Maintenance Topics with due status: Completed Topic Last Completion Date Pneumococcal (PCV13 & PPSV23) 65+ yrs High Risk 07/22/2014 Pneumococcal (PCV13 & PPSV23) 65+ yrs 07/22/2014 Hepatitis C Screening 12/01/2016 Zoster Vaccines 09/12/2018 Abdominal Aortic Aneurysm (AAA) Screen 12/17/2018 Influenza Vaccine 11/27/2019 Counseling and Referral of Preventative Services: Lifestyle Recommendations Increase Physical Activity, Stop Using Tobacco, Reduce Weight and ImproveDiet Advanced Directive Durable Power of Catalog Librarian: Discussed Today: Living Will: Discussed Today: Assessment and Plan: Diagnoses and all orders for this visit: Medicare annual wellness visit, subsequent (Primary) Assessment & Plan: Healthy lifestyle recommended, including regular exercise (daily aerobic & twice weekly resistance training), prudent diet, calcium & vitamin D supplementation, colonoscopy (starting @ age 50for average risk person),, periodic blood pressure monitoring, & bone-density testing (starting@ age 65 in average-risk person). For males PSA beginning at the age of 45 if warranted. Fall, initial encounter Assessment & Plan: Patient stumbled over side walk fell onto the porch. He was wearing supportive shoes but just stumbled. Denies hitting head. 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 mellitus ([facility]) Assessment & Plan: Patient is reporting pins and needles in his feet. He had a special inserts for his shoes but he said did not help. Foot exam is normal. Discussed the importance of controlling blood sugars. Coronary artery disease involving [place] coronary artery of [place] heart without angina pectoris Assessment & Plan: No angina this time. Continue aspirin ARB, beta-priscilla and statin. Followed by Cardiology. BMI 35.0-35.9,adult Assessment & Plan: BMI Follow-up includes: nutrition counseling, exercise counseling and education provided . Atherosclerosis of aorta ([facility]) Assessment & Plan: CT scan showed abdominal aortic and branches are atherosclerotic. Discussed the importance of lipidmanagement blood pressure control. Patient is stable. Orders: - Comprehensive metabolic panel; Future - CBC with auto differential; Future Adrenal cyst ([facility]) Assessment & Plan: Stable no change on Ct Type 2 diabetes mellitus with circulatory disorder ([facility]) Assessment & Plan: Blood sugars are better controlled with the use of a sliding scale insulin. Check A1c today. Discuss low-carbohydrate, exercising. Orders: - Hemoglobin A1c; Future - Ambulatory referral to Ophthalmology Obstructive sleep apnea syndrome Assessment & Plan: encourage to fu pulmonary for sleep evaluation as scheduled encourage to use cpap as rx education risk benefits side affects of nonadherance Renal cyst, acquired, right Hypertension associated with diabetes ([facility]) Assessment & Plan: BP 124/70 (BP Location: Right arm, Patient Position: Sitting) Pulse 82 Resp 18 Ht 180.3 cm (5' 11 ) Wt 116.1 kg (256 lb) SpO2 98% BMI 35.70 kg/m?? On appropriate medication. Continue medication. 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 2 diabetes mellitus ([facility]) Assessment & Plan: Most recent lipid profile reviewed: Lab Results Component Value Date CHOL 116 09/05/2019 TRIG 113 09/05/2019 HDL 44 09/05/2019 LDL 46 11/02/2015 LDLCALC 49 09/05/2019 Labs pending Orders: - Lipid panel; Future Screening for prostate cancer Assessment & Plan: The natural history of prostate cancer and ongoing controversy regarding screening and potential treatment outcomes of prostate cancer has been discussed with the patient. The meaning of a false positive PSA and a false negative PSA has been discussed. He indicates understanding of the limitations of this screening test and wishes to proceed with screening PSA testing. Orders: - PSA screen; Future Patient here for annual Medicare wellness visit and for review of complete medical problem list. All the elements of the plan were completed as outlined by CMS. A copy of the prevention plan was [...] update and summary of today's office visit. Kandy Monroy NP documented in this encounter Miscellaneous Notes * Assessment & Plan Note - Kandy Monroy NP - 11/28/2019 2:20 PM CDTAssociated Problem(s): Type 2 diabetes mellitus with circulatory disorder ([facility]) ([facility]) Blood sugars are better controlled with the use of a sliding scale insulin. Check A1c today. Discuss low-carbohydrate, exercising. * Assessment & Plan Note - Kandy Monroy NP - 11/28/2019 2:20 PM CDTAssociated Problem(s): Obstructive sleep apnea encourage to fu pulmonary for sleep evaluation as scheduled encourage to use cpap as rx education risk benefits side affects of nonadherance * Assessment & Plan Note - Kandy Monroy NP - 11/28/2019 2:20 PM CDTAssociated Problem(s): Screening for prostate cancer (Resolved 02/10/2021) The natural history of prostate cancer and ongoing controversy regarding screening and potential treatment outcomes of prostate cancer has been discussed with the patient. The meaning of a false positive PSA and a false negative PSA has been discussed. He indicates understanding of the limitations of this screening test and wishes to proceed with screening PSA testing. * Assessment & Plan Note - Kandy Monroy NP - 11/28/2019 2:19 PM CDTAssociated Problem(s): 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 2 diabetes mellitus (CMS/HCC) ([facility]) Most recent lipid profile reviewed: Lab Results Component Value Date CHOL 116 09/05/2019 TRIG 113 09/05/2019 HDL 44 09/05/2019 LDL 46 11/02/2015 LDLCALC 49 09/05/2019 Labs pending * Assessment & Plan Note - Kandy Monroy NP - 11/28/2019 2:19 PM CDTAssociated Problem(s): Hypertensive heart disease without heart failure BP 124/70 (BP Location: Right arm, Patient Position: Sitting) Pulse 82 Resp 18 Ht 180.3 cm (5' 11 ) Wt 116.1 kg (256 lb) SpO2 98% BMI 35.70 kg/m?? On appropriate medication. Continue medication. * Assessment & Plan Note - Kandy Monroy NP - 11/28/2019 2:19 PM CDTAssociated Problem(s): Medicare annual wellness visit, subsequent (Resolved 02/10/2021) Healthy lifestyle recommended, including regular exercise (daily aerobic & twice weekly resistance training), prudent diet, calcium & vitamin D supplementation, colonoscopy (starting @ age 50for average risk person),, periodic blood pressure monitoring, & bone-density testing (starting@ age 65 in average-risk person). For males PSA beginning at the age of 45 if warranted. * Assessment & Plan Note - Kandy Monroy NP - 11/28/2019 2:19 PM CDTAssociated Problem(s): Fall (Resolved 04/20/2020) Patient stumbled over side walk fell onto the porch. He was wearing supportive shoes but just stumbled. Denies hitting head. * Assessment & Plan Note - Kandy Monroy NP - 11/28/2019 2:18 PM CDTAssociated Problem(s): 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 mellitus ([facility]/HCC) (HCC) Patient is reporting pins and needles in his feet. He had a special inserts for his shoes but he said did not help. Foot exam is normal. Discussed the importance of controlling blood sugars. * Assessment & Plan Note - Kandy Monroy NP - 11/28/2019 2:18 PM CDTAssociated Problem(s): Coronary artery disease involving [place] coronary artery of [place] heart without angina pectoris No angina this time. Continue aspirin ARB, beta-priscilla and statin. Followed by Cardiology. * Assessment & Plan Note - Kandy Monroy NP - 11/28/2019 2:17 PM CDTAssociated Problem(s): Atherosclerosis of aorta (CMS/HCC) (HCC) CT scan showed abdominal aortic and branches are atherosclerotic. Discussed the importance of lipidmanagement blood pressure control. Patient is stable. * Assessment & Plan Note - Kandy Monroy NP - 11/28/2019 2:17 PM CDTAssociated Problem(s): Adrenal cyst (HCC) (Resolved 11/05/2020) Stable no change on Ct * Assessment & Plan Note - Mary Lou Avilez MA - 11/28/2019 12:27 PM CDT Associated Problem(s): Class 2 severe obesity due to excess calories with serious comorbidity and body mass index (BMI) of 37.0 to 37.9 in adult (HCC) BMI Follow-up includes: nutrition counseling, exercise counseling and education provided . documented in this encounter Plan of Treatment Not on file documented as of this encounter Procedures Procedure Name Priority Date/Time Associated Diagnosis Comments EGFR Routine 11/28/2019 1:00 PM CDT Atherosclerosis of aorta (CMS/HCC) DIFFERENTIAL AUTO Routine 11/28/2019 1:0 0 PM CDT Atherosclerosis of aorta (CMS/HCC) PSA SCREEN Routine 11/28/2019 1:00 PM CDT Screening for prostate cancer CBC WITH AUTO DIFFERENTIAL Routine 11/28/2019 1:00 PM CDT Atherosclerosis of aorta (CMS/HCC) HEMOGLOBIN A1C Routine 11/28/2019 1:00 PM CDT Type 2 diabetes mellitus with circulatory disorder (CMS/HCC) LIPID PANEL Routine 11/28/2019 1:00 PM CDT 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 2 diabetes mellitus (CMS/HCC) COMPREHENSIVE METABOLIC PANEL Routine 11/28/2019 1:00 PM CDT Atherosclerosis of aorta (CMS/HCC) documented in this encounter Results * eGFR (11/28/2019 1:00 PM CDT) [facility] [facility] eGFR 66 mL/min/1.7 3 m2 TAYLOR ZUNIGA Comment: Interpretive Data Reference Interval Normal ?>/= 90 mL/min/1.73m2 Mildly decreased* ? 60 - 89 mL/min/1.73m2 Mildly to moderately decreased ?45 - 59 mL/min/1.73m2 Moderately to severely decreased ??30 - 44 mL/min/1.73m2 Severely decreased ?15 - 29 mL/min/1.73m2 Kidney Failure ?< 15 ??mL/min/1.73m2 *Relative to young adult level If -Romanian multiply value by 1.16. Estimated glomerular filtration rate is determined by [...] 70. Current interpretive data was last reviewed 2015. Blood specimen (specimen) 11/28/2019 1:00 PM CDT 11/28/2019 3:56 PM CDT Kandy Alexander FORENSIC IDENTIFICATION SPECIALIST LAB BLOOD ORDERAB LES Final Result [facility] [address] [facility]. [place] [address] * (ABNORMAL) Differential, auto (11/28/2019 1:00 PM CDT) Neutrophil abs 8.8(H) 1.7 - 6.5 K/cumm [facility] Imm gran abs 0.0 0.0 - 0.1 K/cumm [facility] Lymphocyte abs 1.7 0.8 - 3.3 K/cumm [facility] Monocyte abs 1.2(H) 0.2 - 0.8 K/cumm [facility] Eosinophil abs 0.1 0.0 - 0.5 K/cumm [facility] Basophil abs 0.0 0.0 - 0.1 K/cumm [facility] Neutrophil pct 74.1 % [facility] Comment: Interpretive Data Percent cell count reference ranges are not reported, since discordance with absolute values may lead to misinterpretation of CBC data. Current Interpretive Data was last revised on 2017. Imm gran pct 0.3 % [facility] Comment: Interpretive Data Percent cell count reference ranges are not reported, since discordance with absolute values may lead to misinterpretation of CBC data. Current Interpretive Data was last revised on 2017. Lymphocyte pct 14.2 % [facility] Comment: Interpretive Data Percent cell count reference ranges are not reported, since discordance with absolute values may lead to misinterpretation of CBC data. Current Interpretive Data was last revised on 2017. Monocyte pct 10.1 % [facility] Comment: Interpretive Data Percent cell count reference ranges are not reported, since discordance with absolute values may lead to misinterpretation of CBC data. Current Interpretive Data was last revised on 2017. Eosinophil pct 1.0 % TAYLOR ZUNIGA Comment: Interpretive Data Percent cell count reference ranges are not reported, since discordance with absolute values may lead to misinterpretation of CBC data. Current Interpretive Data was last revised on 2017. Basophil pct 0.3 % TAYLOR ZUNIGA Comment: Interpretive Data Percent cell count reference ranges are not reported, since discordance with absolute values may lead to misinterpretation of CBC data. Current Interpretive Data was last revised on 2017. Blood specimen (specimen) 11/28/2019 1:00 PM CDT 11/28/2019 3:56 PM CDT Kandy Alexander FORENSIC IDENTIFICATION SPECIALIST LAB BLOOD ORDERAB LES Final Result Performing Organization Address City/State/[facility] Co de Phone Number [facility] [address] [facility]. [place] [address] * PSA screen (11/28/2019 1:00 PM CDT) PSA-Total 2.97 <=6.20 ng/mL TAYLOR ZUNIGA Comment: Interpretive Data ?AGE ? SEX ?REFERENCE INTERVAL 0 minutes-150 years ?Female ?None 0 minutes-49 years ? Male ?None ? 50-59 years ? Male ?0-3.90 ? 60-69 years ? Male ?0-5.40 ? 70-79 years ? Male ?0-6.20 ? 80-150 years ?Male ?0-6.20 Current interpretive data last revised 2017. Testing performed by: [facility], [address] [place] [address]., [id number] Blood specimen (specimen) 11/28/2019 1:00 PM CDT 11/29/2019 8:22 AM CDT Kandy Alexander NP LAB BLOOD ORDERAB LES Final Result Performing Organization Address [facility] de Phone Number [facility] [address] [email or web address]. [facility] [place] [address] * (ABNORMAL) Hemoglobin A1c (11/28/2019 1:00 PM CDT) Pathologist [facility] Hgb A1C 8.9(H) 4.0 - 5.6 % TAYLOR ZUNIGA Comment:Testing performed by : [facility], [address] [place] [address]., [id number] Estimated Average Glucose 209 mg/dL TAYLOR ZUNIGA Comment: The ADA recommends reporting an estimated Average Glucose (eAG) with all Hemoglobin A1c results using the equation derived from a study of 507 normal and diabetic adults. ??Minority populations were underrepresented and children were not included. ?? (Diabetes Care 31:5491-8642, 2008). ??The eAG is not equivalent to a fasting glucose. Testing performed by: [facility], [address] [place] [address]., [id number] Blood specimen (specimen) 11/28/2019 1:00 PM CDT 11/28/2019 7:43 PM CDT Kandy Alexander NP LAB BLOOD ORDERAB LES Final Result Performing Organization Address [facility] de Phone Number [facility] [address] [email or web address]. [facility] [employer] [place], [place] [id number] * (ABNORMAL) CBC with auto differential (11/28/2019 1:00 PM CDT) WBC 11.8(H) 3.8 - 9.9 K/cumm [facility] Hgb 13.9 13.0 - 17.5 g/dL [facility] Hct 42.5 38.9 - 50.3 % [facility] Plt 325 150 - 400 K/cumm [facility] MPV 10.6 9.1 - 12.3 fL [facility] RBC 4.63 4.30 - 5.80 M/cumm [facility] MCV 91.8 81.3 - 96.4 fL [facility] MCH 30.0 27.1 - 33.3 pg [facility] MCHC 32.7 32.3 - 35.7 g/dL [facility] RDW CV 13.3 11.1 - 14.9 % [facility] RDW SD 44.9 35.7 - 48.1 fL [facility] NRBC abs 0.00 0.00 - 0.01 K/cumm [facility] Blood specimen (specimen) 11/28/2019 1:00 PM CDT 11/28/2019 3:56 PM CDT Kandy Alexander FORENSIC IDENTIFICATION SPECIALIST LAB BLOOD ORDERAB LES Final Result [facility] [address] [facility]. [place] [address] * (ABNORMAL) Comprehensive metabolic panel (11/28/2019 1:00 PM CDT) [facility] Sodium 135 135 - 145 mmol/L [facility] Potassium, pl 4.1 3.3 - 4.9 mmol/L [facility] Chloride 98 97 - 110 mmol/L [facility] CO2 24 22 - 32 mmol/L [facility] Anion gap 13 2 - 15 mmol/L [facility] BUN 17 8 - 25 mg/dL [facility] Creatinine 1.10 0.80 - 1.30 mg/dL [facility] Glucose 250(H) 70 - 199 mg/dL [facility] Comment: Interpretive Data Fasting glucose >/= 126 [...] interpretive data was last revised 2017. Calcium 9.6 8.5 - 10.3 mg/dL [facility] Bilirubin, total 0.5 0.1 - 1.2 mg/dL [facility] Protein, pl 7.6 6.5 - 8.5 g/dL [facility] Albumin 4.1 3.5 - 5.0 g/dL [facility] Alk phos 89 40 - 130 Units/L [facility] ALT 42 7 - 55 Units/L [facility] AST 37 10 - 50 Units/L [facility] Blood specimen (specimen) 11/28/2019 1:00 PM CDT 11/28/2019 3:56 PM CDT Kandy Alexander FORENSIC IDENTIFICATION SPECIALIST LAB BLOOD ORDERAB LES Final Result [facility] [address] [facility]. [place] [address] * (ABNORMAL) Lipid panel (11/28/2019 1:00 PM CDT) Cholesterol 121 30 - 199 mg/dL [facility] Comment: Interpretive Data Ages < or = [...] Data was last revised on 2017. Triglycerides 185(H) <=149 mg/dL TAYLOR ZUNIGA Comment: Interpretive Data [...] was last revised on 2017. LDL, calculated 42 <=129 mg/dL TAYLOR ZUNIGA Comment: Interpretive Data [...] was last revised on 2017. Non-HDL Cholesterol 79 mg/dL TAYLOR ZUNIGA Comment: Interpretive Data Ages [...] ratio 3 TAYLOR ZUNIGA Blood specimen (specimen) 11/28/2019 1:00 PM CDT 11/28/2019 3:56 PM CDT us Kandy Alexander NP LAB BLOOD ORDERAB LES Final Result [facility] [address] [facility]. 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) Obstructive sleep apnea syndrome Obstructive sleep apnea (adult) (pediatric) Renal cyst, acquired, right Hypertension associated with diabetes (HCC) Unspecified essential hypertension 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) Screening for prostate cancer Special screening for malignant neoplasm of prostate documented in this encounter Orders Outpatient Referral Count Last Ordered Date Fir st Ordered Date AMB REFERRAL TO OPHTHALMOLOGY 1 11/28/2019 documented in this encounter Care Teams Civil Engineering Drafter Relationship Specialty Start Date End Date Rickey Do MD PCP - General 05/20/16 11/08/20 documented as of this encounter
--- OUTSIDE RECORDS SUMMARY | 2024-02-10 01:51 | XMS_ITS | Encounter Summary ---
Author Organization [facility] Medical [facility] Address [address] [place] [address] Care Team Providers Care Bench Assembler Operator Name Role Phone Rickey Do MD Primary Care Provider [phone] Encounter Details Date Type Department Care Team (Late st Contact Info) Description 02/25/2019 Orders Only [facility] [address] [place] [phone] An Soto, DECORATIVE ENGRAVER APPRENTICE [address] [facility] [address] [place], [place] [id number] Social History Tobacco Use Types Packs/Day Years [...] on file Legal Sex Male 11:37 AM 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 Gender Identity Not on file Sexual Orientation Not on file 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 Not on file documented as of this encounter Ordered Prescriptions Prescription Sig Dispense Quantity Refills Last Filled Start Date End Date valsartan-hydrochl orothiazide (DIOVAN-HCT) 320-12.5 mg per tablet Take 1 tablet by mouth daily 90 tablet 3 02/25/2019 02/25/2020 documented in this encounter Plan of Treatment Not on file documented as of this encounter Visit Diagnoses Not on filedocumented in this encounter Discontinued Medications Medication Sig Discontinue Reason Start Date End Da te irbesartan-hydroCHLOROth iazide (AVALIDE) 300-12.5 mg per tabletIndications:hypert ension Take 1 tablet by mouth daily 12/19/2018 02/25/2019 documented as of this encounter Care Teams Bench Assembler Operator Relationship Specialty Start Date End Date Rickey Do MD PCP - General 05/20/16 11/08/20 documented as of this encounter
--- OUTSIDE RECORDS SUMMARY | 2024-02-10 01:51 | XMS_ITS | Encounter Summary ---
Author Organization [facility] Medical Group Address [address] [place] [address] Care Team Providers Care Masonry Teacher Name Role Phone Rickey Do MD Primary Care Provider [phone] Reason for Visit * Reason Onset Date Comments Dr. Do-Medical Question 02/21/2019 Encounter Details Date Type Department Care Team (Late st Contact Info) Description 02/21/2019 Telephone [facility] [address] [place] [phone] Rickey Do MD [address] [facility] [address] [place] [id number] Dr. 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 I confirmed it was sent 02/18. Cindy informed me it takes 7-10 business days due to how the mail is processed. ON INVESTIGATOR documented in this encounter Plan of Treatment Not on file documented as of this encounter Visit Diagnoses Not on filedocumented in this encounter Care Teams Masonry Teacher Relationship Specialty Start Date End Date Rickey Do MD PCP - General 05/20/16 11/08/20 documented as of this encounter
--- OUTSIDE RECORDS SUMMARY | 2024-02-10 01:51 | XMS_ITS | Encounter Summary ---
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) Jose Antonio Sanderson MD [address] [facility] [address] [place] [address] Phone: tel: fax: [place] [address] [facility] [address] [place] [address] Phone: tel: fax: Referral ID Status Reason Start Date Expiration Date V isits Requested Visits Authorized [id number] Closed Specialty Services Required 11/12/2019 12/11/2020 1 1 Question Answer Please select the performing region: External Order [171] To provider: KAYLEN REYNOSO [[id number]] # of visits: 1 Encounter Details Date Type Department Care Team (Late st Contact Info) Description 11/12/2019 Orders Only [facility] 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 Not on file documented as of this encounter Plan of Treatment Scheduled Referrals Name Type Priority Associated Diagnoses Order Schedule Ambulatory referral to Ophthalmology Outpatient Referral Routine Type 2 diabetes mellitus with circulatory disorder (CMS/HCC) Expected: 11/26/2019 (Approximate), Expires: 11/11/2020 documented as of this encounter Visit Diagnoses Diagnosis 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
--- OUTSIDE RECORDS SUMMARY | 2024-02-10 01:51 | XMS_ITS | Encounter Summary ---
Author Organization [facility] Medical [facility] Address [address] [address] [place] [address] Care Team Providers Care Epic Trainer Name Role Phone Rickey Do MD Primary Care Provider [phone] Reason for Visit * Reason Onset Date Comments Rx clarification 12/25/2019 Encounter Details Date Type Department Care Team (Late st Contact Info) Description 12/25/2019 Telephone [facility] [address] [place] [phone] Rickey Do MD [address] [place] [address] Rx clarification Social History Tobacco Use Types Packs/Day Years [...] on file Legal Sex Male 11:37 AM HOP SEPARATOR Gender Identity Not on file Sexual Orientation [...] mouth daily with breakfast 90 tablet 3 12/26/2019 1 documented in this encounter Miscellaneous Notes * Addendum Note - Ijeoma Gustafson RN - 12/26/2019 4:41 PM CSTAddended by: IJEOMA GUSTAFSON on: 12/26/2019 04:41 PM Modules accepted: Orders SEPARATOR * Telephone Encounter - Ijeoma Gustafson RN - 12/26/2019 4:36 PM HOP SEPARATOR Spoke with pharmacist, informed we were going to do the Metformin XR 500mg, 1 tab daily. SEPARATOR * Telephone Encounter - An Soto NP - 12/26/2019 4:26 PM CST Only 500 mg per day SEPARATOR * Telephone Encounter - An Soto NP - 12/26/2019 6:34 AM CST XR please SEPARATOR * Telephone Encounter - Ijeoma Gustafson RN - 12/25/2019 10:46 AM HOP SEPARATOR Received phone call from pharmacist at [facility] (ref # [id number], ph: [phone]). He would like to clarify that we inteneded to send the Metformin immediate release 500mg as patient had previouslybeen on Metformin XR 500mg. I did not see a documented change in his most recent office visit note, 12.16.19. Please clarify ifpt is to start the IR 500mg or continue the XR? SEPARATOR SEPARATOR documented in this encounter Plan of Treatment Not on file documented as of this encounter Visit Diagnoses Not on filedocumented in this encounter Discontinued Medications Medication Sig Discontinue Reason Start Date End Da te metFORMIN (GLUCOPHAGE) 500 mg tablet Take 1 tablet (500 mg total) by mouth daily with breakfast Dose adjustment 12/16/2019 12/26/2019 documented as of this encounter Care Teams Epic Trainer Relationship Specialty Start Date End Date Rickey Do MD PCP - General 05/20/16 11/08/20 documented as of this encounter
--- OUTSIDE RECORDS SUMMARY | 2024-02-10 01:51 | XMS_ITS | Encounter Summary ---
Author Organization [facility] Medical Group Address [address] [place] [address] Care Team Providers Care Physiotherapy Aide Name Role Phone Rickey Do MD Primary Care Provider [phone] Reason for Visit * Reason Comments Diabetes Encopresis Encounter Details Date Type Department Care Team (Late st Contact Info) Description 02/18/2019 11:15 AM DESK LIEUTENANT Office Visit [facility] [address] [place] [address] An Soto, TRANSFUSION NURSE [address] [facility] [address] [place] [address] BMI 36.0-36.9,adult (Primary Dx); Incontinence of feces with fecal urgency; Coronary artery disease involving [place] coronary artery of [place] heart without angina pectoris Social History Tobacco Use Types Packs/Day Years [...] on file Legal Sex Male 11:37 AM DESK LIEUTENANT Gender Identity Not on file Sexual Orientation Not on file 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 Not on file documented as of this encounter Last Filed Vital Signs Vital Sign Reading Time Taken Comments Blood Pressure 136/66 02/20/2019 3:55 PM DESK LIEUTENANT Pulse 88 02/18/2019 11:38 AM DESK LIEUTENANT Temperature - - Respiratory Rate 15 02/18/2019 11:38 AM DESK LIEUTENANT Oxygen Saturation 94% 02/18/2019 11:38 AM DESK LIEUTENANT Inhaled Oxygen Concentration - - Weight 118.4 kg (261 lb) 02/18/2019 11:38 AM DESK LIEUTENANT Height 180.3 cm (5' 11 ) 02/18/2019 11:38 AM DESK LIEUTENANT Body Mass Index 36.4 02/18/2019 11:38 AM DESK LIEUTENANT documented in this encounter Progress Notes * An Soto, TRANSFUSION NURSE - 02/18/2019 11:15 AM CST Images from the original note were not included. Ayden Santos 1945 Chief Complaint Patient presents with ??? Diabetes ??? Encopresis 73-year-old male here for follow-up of bowel urgency and fecal incontinence. At the last visit his metformin was decreased to 500 mg twice daily. Symptoms are improved but not completely resolved. Hetried Metamucil for stool bulking but this was not helpful and caused diarrhea. He is planning a 14hour plane trip and is very concerned about how he will deal with bowel urgency. Past Medical History: Diagnosis Date ??? Adiposity [...] day 180tablet 2 ??? blood glucose diagnostic (Sensory AnalyticsTOUCH VERIO) strip smbg bid ac 100 each [...] the skin daily 30 mL 11 ??? irbesartan-hydroCHLOROthiazide (AVALIDE) 300-12.5 mg per tablet Take 1 tablet by mouth daily 90tablet 1 ??? lancets (Se[employer]an Angel Printstouch ultrasoft) misc 1 each by other route [...] total) by mouth nightly 90 tablet 3 No current facility-administered medications for this visit. Review of Systems Constitutional: Negative. Negative for [...] palpitations and leg swelling. Gastrointestinal: Positive for diarrhea. Negative for abdominal distention, abdominal pain, blood in stool, constipation, nausea and vomiting. Endocrine: Negative. Negative for [...] sleep disturbance. BMI Body mass index is 36.4 kg/m??. Vitals BP 136/66 Pulse 88 Resp 15 Ht 180.3 cm (5' 11 ) Wt 118.4 kg (261 lb) SpO2 94% BMI 36.40 kg/m?? Physical Exam Constitutional: General: He is not in acute distress. Appearance: He is well-developed. He is obese. He is not ill-appearing. HENT: Head: Normocephalic and atraumatic. Nose: Nose normal. Mouth/Throat: Pharynx: Oropharynx is clear. Eyes: Conjunctiva/sclera: Conjunctivae normal. Pupils: Pupils are equal, round, and reactive to light. Neck: Musculoskeletal: Normal range of motion and neck supple. Cardiovascular: Rate and Rhythm: Normal rate and regular rhythm. Heart sounds: Normal heart sounds. Pulmonary: Effort: Pulmonary effort is normal. Abdominal: General: There is no distension. Palpations: Abdomen is soft. There is no mass. Tenderness: There is no tenderness. Hernia: No hernia is present. Comments: Hyperactive bowel sounds Musculoskeletal: Normal range of motion. Skin: General: [...] Diagnoses and all orders for this visit: BMI 36.0-36.9,adult (Primary) Assessment & Plan: BMI Follow-up includes: nutrition counseling, exercise counseling and education provided. Incontinence of feces with fecal urgency Assessment & Plan: Symptoms improved with decreased metformin dose. He can use Imodium prior to eating out or to control urgency on the airplane. He has noted that high carbohydrate meals 10 to increase his symptoms and I encouraged him to continue to limit simple carbohydrates. Coronary artery disease involving [place] coronary artery of [place] heart without angina pectoris Assessment & Plan: Stable, no angina. 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 Return in about 6 months (around 08/20/2019) for Annual physical. LIEUTENANT documented in this encounter Miscellaneous Notes * Assessment & Plan Note - An Soto NP - 02/20/2019 3:58 PM DESK LIEUTENANT Associated Problem(s): Coronary artery disease involving [place] coronary artery of [place] heart without angina pectoris Stable, no angina. 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 LIEUTENANT * Assessment & Plan Note - An Soto NP - 02/20/2019 3:56 PM DESK LIEUTENANT Associated Problem(s): Hypertensive heart disease without heart failure Blood pressure is well controlled. Continue irbesartan HCT Reviewed low sodium diet and hidden sources of sodium in the diet to avoid. LIEUTENANT * Assessment & Plan Note - An Soto NP - 02/20/2019 3:53 PM DESK LIEUTENANT Associated Problem(s): Incontinence of feces with fecal urgency (Resolved 04/20/2020) Symptoms improved with decreased metformin dose. He can use Imodium prior to eating out or to control urgency on the airplane. He has noted that high carbohydrate meals 10 to increase his symptoms and I encouraged him to continue to limit simple carbohydrates. LIEUTENANT * Assessment & Plan Note - Bhumika Keene MA - 02/18/2019 11:41 AM CSTAssociated Problem(s): Class 2 severe obesity due to excess calories with serious comorbidity and body mass index (BMI) of 37.0 to 37.9 in adult (HCC) BMI Follow-up includes: nutrition counseling, exercise counseling and education provided. LIEUTENANT documented in this encounter Plan of Treatment Not on file documented as of this encounter Visit Diagnoses Diagnosis BMI 36.0-36.9,adult- Primary Incontinence of feces with fecal urgency Coronary artery disease involving [place] coronary artery of cow[place] heart without angina pectoris documented in this encounter Care Teams Physiotherapy Aide Relationship Specialty Start Date End Date Rickey Do MD PCP - General 05/20/16 11/08/20 documented as of this encounter
--- OUTSIDE RECORDS SUMMARY | 2024-02-10 01:52 | XMS_ITS | Encounter Summary ---
Author Organization [facility] Address [address] [place] [address] Care Team Providers Care Home Theater Experience Expert Name Role Phone Rickey Do MD Primary Care Provider [phone] Reason for Visit * Reason Comments Rectal Bleeding x May rubber band job, botox on rectal nothing working Encounter Details Date Type Department Care Team (Late st Contact Info) Description 02/07/2019 10:00 AM OFFICE CLERK Office Visit [facility] [address] [place] [address] An Soto, DRUM BARKER OPERATOR 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 Not on file documented as of this encounter Last Filed Vital Signs Vital Sign Reading Time Taken Comments Blood Pressure 130/70 02/07/2019 10:09 AM OFFICE CLERK Pulse 78 02/07/2019 10:09 AM OFFICE CLERK Temperature - - Respiratory Rate 16 02/07/2019 10:09 AM OFFICE CLERK Oxygen Saturation 97% 02/07/2019 10:09 AM OFFICE CLERK Inhaled Oxygen Concentration - - Weight 117.9 kg (260 lb) 02/07/2019 10:09 AM OFFICE CLERK Height 180.3 cm (5' 11 ) 02/07/2019 10:09 AM OFFICE CLERK Body Mass Index 36.26 02/07/2019 10:09 AM OFFICE CLERK documented in this encounter Ordered Prescriptions Prescription Sig Dispense Quantity Refills Last Filled Start Date End Date metFORMIN XR (GLUCOPHAGE XR) 500 mg 24 hr tablet Take 1 tablet (500 mg total) by mouth 2 (two) times a day 360 tablet 1 02/07/2019 03/07/2019 documented in this encounter Progress Notes * An Soto, DRUM BARKER OPERATOR - 02/07/2019 10:00 AM CST Images from the original note were not included. Ayden Santos 1945 Chief Complaint Patient presents with ??? Rectal Bleeding x May rubber band job, botox on rectal nothing working 73 male with rectal bleeding. Incontinent of stool and urine at times due to bowel urgency. Frequent BM 5 days ago. Experienced bright red bleeding on the toilet paper and dripping into the toilet. History hemorrhoidectomy and anal fissure repair November 2018. Stool urgency especially after he eatslarge meals or meals heavy and simple carbs. Second concern is right lumbar back pain, worse with movement, which has been present for several years. He has always been concerned that it is kidney pain. Past Medical History: Diagnosis Date ??? Adiposity [...] file Gets together: Not on file Attends holiness service: Not on file Active member of [...] day 180tablet 2 ??? blood glucose diagnostic ([employer] VERIO) strip smbg bid ac 100 each [...] by mouth daily 90tablet 1 ??? lancets ([employer] New[employer] ultrasoft) misc 1 each by other route as directed Check smbg bid ac and prn for dm uncontolled 180 each 3 ??? metFORMIN XR (GLUCOPHAGE XR) 500 mg 24 hr tablet Take 2 tablets (1,000 mg total) by mouth 2 (two) times [...] Fall Risk Screening Review of Systems Constitutional: Negative for chills. HENT: Negative. Eyes: Negative. Respiratory: Negative. Cardiovascular: Negative. Gastrointestinal: Positive for diarrhea. Endocrine: Negative. Genitourinary: Negative. Negative for dysuria. Musculoskeletal: Positive for back pain. Negative for gait problem. Skin: Negative. Allergic/Immunologic: Negative. Neurological: Negative for weakness and numbness. Hematological: Negative. Psychiatric/Behavioral: Negative. BMI Body mass index is 36.26 kg/m??. Vitals BP 130/70 (BP Location: Right arm, Patient Position: Sitting) Pulse 78 Resp 16 Ht 180.3 cm (5' 11 ) Wt 117.9 kg (260 lb) SpO2 97% BMI 36.26 kg/m?? Physical Exam Constitutional: General: He is not in acute distress. Appearance: Normal appearance. He is well-developed. He is obese. He is not ill-appearing. HENT: Head: Normocephalic and atraumatic. Mouth/Throat: Mouth: Mucous membranes are dry. Pharynx: Oropharynx is clear. Eyes: Conjunctiva/sclera: Conjunctivae [...] There is no mass. Tenderness: There is tenderness. There is rebound. There is no guarding. Hernia: No hernia is present. Genitourinary: Rectum: Normal. Comments: Small skin tag. No visible hemorrhoids. Skin is intact. Musculoskeletal: Comments: Right lumbar pain is worse with lateral flexion and lateral rotation of the back. Skin: General: Skin is warm and dry. Neurological: General: No focal deficit present. Mental Status: He is alert and oriented to person, place, and time. Sensory: No sensory deficit. Motor: No abnormal muscle tone. Coordination: Coordination normal. Deep Tendon Reflexes: Reflexes normal. Psychiatric: Mood and Affect: Mood normal. Behavior: Behavior normal. Thought Content: Thought content normal. Judgment: Judgment normal. Diabetic foot exam: Left monofilament exam: abnormal Right monofilament exam: abnormal Diagnoses and all orders for this visit: Incontinence of feces with fecal urgency (Primary) Assessment & Plan: Decrease metformin to 500 mg BID. Start metamucil 1 tsp daily. Trial of gluten free diet. Hypertension associated with diabetes ([facility]) Assessment & Plan: Blood pressure is well controlled. Continue irbesartan hct and metoprolol Reviewed low sodium diet and hidden sources of sodium in the diet to avoid. Anal fissure Assessment & Plan: Pain has resolved post repair. Type 2 diabetes mellitus with diabetic neuropathy, without long-term current use of insulin ([facility]) Assessment & Plan: Reviewed diabetic foot care Orders: - Hemoglobin A1c; Future Lumbar back pain Assessment & Plan: Gentle lumbar stretching exercises. Discussed value of weight loss for decreasing pain. Discussed lumbar x-ray but he would prefer to try stretching 1st. Residual hemorrhoidal skin tags Assessment & Plan: Bright red bleeding probably due to internal hemorrhoid irritated by frequent stool. If he has any recurrence he will call the office. BMI 36.0-36.9,adult Other orders - metFORMIN XR (GLUCOPHAGE XR) 500 mg 24 hr tablet; Take 1 tablet (500 mg total) by mouth 2 (two) times a day Return in about 4 weeks (around 03/07/2019) for Recheck. CE CLERK * Bhumika Keene MA - 02/07/2019 10:00 AM CST Ldmor requesting pt to get lab work, or if had done please fax results. CE CLERK documented in this encounter Miscellaneous Notes * Assessment & Plan Note - An Soto NP - 02/07/2019 5:23 PM OFFICE CLERK Associated Problem(s): Hemorrhoid (Resolved 11/05/2020) Bright red bleeding probably due to internal hemorrhoid irritated by frequent stool. If he has any recurrence he will call the office. CE CLERK * Assessment & Plan Note - An Soto NP - 02/07/2019 5:21 PM OFFICE CLERK Associated Problem(s): Chronic right-sided low back pain without sciatica Gentle lumbar stretching exercises. Discussed value of weight loss for decreasing pain. Discussed lumbar x-ray but he would prefer to try stretching 1st. CE CLERK * Assessment & Plan Note - An Soto NP - 02/07/2019 5:20 PM OFFICE CLERK Associated Problem(s): Anal fissure (Resolved 02/20/2019) Pain has resolved post repair. CE CLERK * Assessment & Plan Note - An Soto NP - 02/07/2019 5:19 PM OFFICE CLERK Associated Problem(s): Type 2 diabetes mellitus with neurologic complication (HCC) (Resolved 11/05/2020) Reviewed diabetic foot care CE CLERK * Assessment & Plan Note - An Soto NP - 02/07/2019 10:46 AM OFFICE CLERK Associated Problem(s): Hypertensive heart disease without heart failure Blood pressure is well controlled. Continue irbesartan hct and metoprolol Reviewed low sodium diet and hidden sources of sodium in the diet to avoid. CE CLERK * Assessment & Plan Note - An Soto NP - 02/07/2019 10:41 AM OFFICE CLERK Associated Problem(s): Incontinence of feces with fecal urgency (Resolved 04/20/2020) Decrease metformin to 500 mg BID. Start metamucil 1 tsp daily. Trial of gluten free diet. CE CLERK CE CLERK CE CLERK documented in this encounter Plan of Treatment Not on file documented as of this encounter Results * (ABNORMAL) Hemoglobin A1c (09/05/2019 11:03 AM CDT) [facility] Hgb A1C 8.3(H) 4.0 - 5.6 % TAYLOR ZUNIGA Comment:Testing performed by : [facility], [address] [place] [address]., [id number] Estimated Average Glucose 192 mg/dL TAYLOR ZUNIGA Comment: The ADA recommends reporting an estimated Average Glucose (eAG) with all Hemoglobin A1c results using the equation derived from a study of 507 normal and diabetic adults. ??Minority populations were underrepresented and children were not included. ?? (Diabetes Care 31:1302-1414, 2008). ??The eAG is not equivalent to a fasting glucose. Testing performed by: [facility], [address] [place] [address]., [id number] Blood specimen (specimen) 09/05/2019 11:03 AM CDT 09/05/2019 4:01 PM CDT us An Soto NP LAB BLOOD ORDERABLES Final Res ult TAYLOR ZUNIGA [address] [facility] Department of Laboratories [place], [place] [id number] documented in this encounter Visit Diagnoses Diagnosis Incontinence of feces with fecal urgency- Primary Hypertension associated with diabetes (HCC) Unspecified essential hypertension Anal fissure Type 2 diabetes mellitus with diabetic neuropathy, without long-term current use of insulin (HCC) Lumbar back pain Lumbago Residual hemorrhoidal skin tags BMI 36.0-36.9,adult documented in this encounter Discontinued Medications Medication Sig Discontinue Reason Start Date End Da te metFORMIN XR (GLUCOPHAGE XR) 500 mg 24 hr tablet Take 2 tablets (1,000 mg total) by mouth 2 (two) times a day 12/19/2018 02/07/2019 documented as of this encounter Care Teams Home Theater Experience Expert Relationship Specialty Start Date End Date Rickey Do MD PCP - General 05/20/16 11/08/20 documented as of this encounter
--- OUTSIDE RECORDS SUMMARY | 2024-02-10 01:52 | XMS_ITS | Encounter Summary ---
Author Organization [facility] Address [address] [place] [address] Care Team Providers Care Mold Stripper Name Role Phone Rickey Do MD Primary Care Provider [phone] Reason for Visit * Reason Comments Anal Fissure Encounter Details Date Type Department Care Team (Late st Contact Info) Description 11/16/2018 9:45 AM CDT Office Visit [facility] [address] [place] [address] Felice Torrez MD [address] [place] [address] [address] [place], [place] [id number] Anal fissure (Primary Dx) Social History Tobacco Use Types [...] on file Legal Sex Male 11:37 AM RECORDS MANAGEMENT DIRECTOR Gender Identity Not on file Sexual Orientation Not on file 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 He has failed both topical calcium channel blockers and Botox. On exam, there is a chronic- appearing posterior midline anal fissure present. Since he has failed nonsurgical options, I have recommended a surgical sphincterotomy. The procedure was explained, including risks of bleeding, infection, and minor postoperative incontinence. He would like to proceed. Surgery will be scheduled as an outpatient at his convenience. documented in this encounter Plan of Treatment Not on file documented as of this encounter Visit Diagnoses Diagnosis Anal fissure- Primary documented in this encounter Care Teams Mold Stripper Relationship Specialty Start Date End Date Rickey Do MD PCP - General 05/20/16 11/08/20 documented as of this encounter
--- OUTSIDE RECORDS SUMMARY | 2024-02-10 01:52 | XMS_ITS | Encounter Summary ---
Author Organization [facility] Address [address] [place] [address] Care Team Providers Care Fast Food Manager Name Role Phone Rickey Do MD Primary Care Provider [phone] Reason for Visit * Reason Comments Follow-up Encounter Details Date Type Department Care Team (Late st Contact Info) Description 09/10/2018 11:15 AM CDT Office Visit [facility] 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 Gender Identity Not on file Sexual Orientation Not on file 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 He describes the pain as a ???rectal spasm,?? and the bleeding is just on the toilet tissue. He states that the bleeding is significantly less than before the rubber-band ligation was done. He is on his second course of topical calcium channel blockers. Physical Exam: The perianal skin is normal, with no rashes or skin lesions. There are no thrombosedexternal hemorrhoids, prolapsed internal hemorrhoids, or fistula tracts. There is a chronic-appearing posterior anal fissure, just the left of the midline. Digital rectal exam and anoscopy could not be performed due to pain. Assessment and Plan: Chronic anal fissure. Treatment options including continued topical smooth-muscle relaxants, Botox injection, and surgical sphincterotomy were discussed. He would like to try another 2 weeks of the topical therapy, but if his symptoms still persist, proceed with a Botox injection. He will call in 2 weeks to let me know how he is doing. documented in this encounter Plan of Treatment Not on file documented as of this encounter Visit Diagnoses Diagnosis Anal fissure- Primary documented in this encounter Care Teams Fast Food Manager Relationship Specialty Start Date End Date Rickey Do MD PCP - General 05/20/16 11/08/20 documented as of this encounter
--- OUTSIDE RECORDS SUMMARY | 2024-02-10 01:52 | XMS_ITS | Encounter Summary ---
Author Organization [facility] Address [address] [place] [address] Care Team Providers Care Director Of Email Marketing Name Role Phone Rickey Do MD Primary Care Provider [phone] Encounter Details Date Type Department Care Team (Late st Contact Info) Description 02/28/2018 Orders Only [facility] [address] [place] [id number] Xena Valencia, CERTIFIED REHABILITATION COUNSELOR [address] [place], [place] [id number] Social History Tobacco Use Types Packs/Day Years Used Date Smoking Tobacco: Former Cigarettes 1 15 Smokeless Tobacco: Never Comments:Smoking History Pac ks/day: 1 Packs Alcohol Use Standard Drinks/Week Comments Yes 0 (1 standard drink = 0.6 oz pur e alcohol) Sex and Gender Information Value Date Recorded Sex Assigned at Not on file Legal Sex Male 11:37 AM HOMOGENIZER OPERATOR Gender Identity Not on file Sexual Orientation Not on file 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 90 tablet 3 02/28/2018 04/11/2018 documented in this encounter Plan of Treatment Not on file documented as of this encounter Visit Diagnoses Not on filedocumented in this encounter Discontinued Medications Medication Sig Discontinue Reason Start Date End Da te simvastatin (ZOCOR) 20 mg tablet Take 1 tablet (20 mg total) by mouth nightly. Reorder 02/21/2017 02/28/2018 documented as of this encounter Care Teams Director Of Email Marketing Relationship Specialty Start Date End Date Rickey Do MD PCP - General 05/20/16 11/08/20 documented as of this encounter
--- OUTSIDE RECORDS SUMMARY | 2024-02-10 01:52 | XMS_ITS | Encounter Summary ---
Author Organization [facility] Address [address] [facility] [address] [place] [address] Care Team Providers Care Shipmaster Name Role Phone Rickey Do MD Primary Care Provider [phone] Reason for Referral * Consultation (Routine) - Closed Specialty Diagnoses / Procedures Referred By Jp buckner Referred To Contact Surgery / Colon and Rectal Surgery Diagnoses Hemorrhoids, unspecified hemorrhoid type Rickey Do MD Phone: tel: fax: Hali Wu MD Phone: tel: fax: Referral ID Status Reason Start Date Expiration Date V isits Requested Visits Authorized [id number] Closed Specialty Services Required 05/16/2018 11/25/2019 1 1 Question Answer Please select the performing region: [facility] [[id number]] Please select the performing department: [facility] [[id number]] # of visits: 1 Reason for Visit * Reason Comments Diabetes Encounter Details Date Type Department Care Team (Late st Contact Info) Description 05/16/2018 10:00 AM CDT Office Visit [facility] [address] [facility] [address] [place] [address] Xena Valencia, ASSISTANT DEPARTMENT MANAGER [address] [address] Atherosclerosis of aorta ([facility]/HCC) (Primary Dx); Type 2 diabetes mellitus with diabetic mononeuropathy, with long-term current use of insulin (CMS/HCC); Peripheral neuropathy due to disorder of metabolism (CMS/HCC); 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 2 diabetes mellitus ([facility]/HCC); Hypertension associated with diabetes (CMS/HCC); Type 2 diabetes mellitus with other circulatory complication, with long-term current use of insulin (CMS/HCC); Morbid obesity ([facility]); Coronary artery disease involving akutan coronary artery of akutan heart without angina pectoris; Hemorrhoids, unspecified hemorrhoid type; BMI 36.0-36.9,adult Social History Tobacco Use Types Packs/Day Years Used Date Smoking Tobacco: Former Cigarettes 1 15 Smokeless Tobacco: Never Comments:Smoking History Pac ks/day: 1 Packs Alcohol Use Standard Drinks/Week Comments Yes 0 (1 standard drink = 0.6 oz pur e alcohol) Sex and Gender Information Value Date Recorded Sex Assigned at Not on file 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 Gender Identity Not on file Sexual Orientation Not on file 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 Not on file documented as of this encounter Last Filed Vital Signs Vital Sign Reading Time Taken Comments Blood Pressure 124/78 05/16/2018 9:48 AM CDT Pulse 78 05/16/2018 9:48 AM CDT Temperature - - Respiratory Rate 18 05/16/2018 9:48 AM CDT Oxygen Saturation 98% 05/16/2018 9:48 AM CDT Inhaled Oxygen Concentration - - Weight 117 kg (258 lb) 05/16/2018 9:48 AM CDT Height 180.3 cm (5' 11 ) 05/16/2018 9:48 AM CDT Body Mass Index 35.98 05/16/2018 9:48 AM CDT documented in this encounter Ordered Prescriptions Prescription Sig Dispense Quantity Refills Last Filled Start Date End Date metFORMIN XR (GLUCOPHAGE XR) 500 mg 24 hr tablet Take 2 tablets (1,000 mg total) by mouth daily with breakfast 180 tablet 3 05/16/2018 10/02/201 9 documented in this encounter Progress Notes * Xena Valencia, ASSISTANT DEPARTMENT MANAGER - 05/16/2018 10:00 AM CDT Subjective/Objective Patient ID: Ayden Santos is a 72 y.o. male. Chief Complaint Diabetes 72 yo male presents Diabetes smbg fasting 120-170 prelunch 150-200 presupper 120-160 Hs 150-180 Denies hypoglycemia Checks feet nightly Last eye exam noted Admits some lack routine in meal times is counting cho No paperwork for me today htn takes meds as rx Denies cp sob le edema vertigo pnd orthopnea Lipid takes meds as rx Denies myalgia weakness dark tea colored urine Had reaction to synjardy his right kidney was hurting and as soon as he stopped synjardy it went away Current Outpatient Medications: ??? acyclovir (ZOVIRAX) 400 mg tablet, TAKE 1 TABLET BY MOUTH TWO TIMES DAILY, Disp: 180 tablet, Rfl: 2 ??? aspirin 81 mg enteric coated tablet, Take 81 mg by mouth daily, Disp: , Rfl: ??? blood glucose diagnostic (ONETOUCH VERIO) strip, 1 each by other route as directed. Bid ac, Disp: 100 each, Rfl: 3 ??? cholecalciferol (VITAMIN D-3) 2,000 unit capsule, Take 2,000 Units by mouth daily, Disp: , Rfl: ??? coenzyme Q10 (COQ-10) 100 mg capsule, take 3 by Oral route every evening, Disp: 0, Rfl: 0 ??? irbesartan-hydroCHLOROthiazide (AVALIDE) 300-12.5 mg per tablet, Take 1 tablet by mouth daily.,Disp: 90 tablet, Rfl: 3 ??? lancets (onetouch ultrasoft) misc, test by by finger stick route 3 times every day, Disp: 300, Rfl: 8 ??? metoprolol (LOPRESSOR) 50 mg tablet, TAKE 1 TABLET BY MOUTH 3 TIMES A DAY. (TAKE 2 TABLETS AT LUNCH AND ONE TABLET AT BEDTIME), Disp: 270 tablet, Rfl: 0 ??? nitroglycerin (NITROSTAT) 0.4 mg SL tablet, place 1 tablet by sublingual route at the 1st sign of attack; may repeat every 5 min until relief; if pain persists after 3 tablets in 15 min, prompt medical attention is recommended, Disp: 1, Rfl: 0 ??? pen needle, diabetic (PEN NEEDLE) 31 gauge x 1/4 needle, Inject 1 pen under the skin daily., Disp: 100 each, Rfl: 3 ??? simvastatin (ZOCOR) 40 mg tablet, Take 1 tablet (40 mg total) by mouth nightly., Disp: 90 tablet, Rfl: 3 ??? XULTOPHY 100/3.6 100 unit-3.6 mg /mL (3 mL) insulin pen, INJECT 24 UNITS UNDER THE SKIN DAILY.,Disp: 30 mL, Rfl: 11 ??? metFORMIN XR (GLUCOPHAGE XR) 500 mg 24 hr tablet, Take 2 tablets (1,000 mg total) by mouth daily with breakfast, Disp: 180 tablet, Rfl: 3 Allergies Allergen Reactions ??? Royce Inhibitors Cough Reaction: Cough, , ??? Amlodipine Edema Reaction: Edema, , ??? Farxiga [Dapagliflozin] Diarrhea PHQ Screening Over the last 2 weeks, how often have you been bothered by any of the following problems? Little Interest or Pleasure in Doing Things: Not at all Feeling Down, Depressed, or Hopeless: Not at all PHQ-2 Total Score (If total score is 3 or more points, continue to PHQ-9): 0 Over the past 2 weeks, [...] fatigue, fever and unexpected weight change. HENT: Negative. Negative for congestion, dental problem, drooling, ear discharge, ear pain, facial swelling, hearing loss, mouth sores, nosebleeds, postnasal drip, rhinorrhea, sinus pressure, sneezing, sore throat, tinnitus, trouble swallowing and voice change. Eyes: Negative. Negative for photophobia, pain, discharge, redness, itching and visual disturbance. Respiratory: Negative. Negative for apnea, cough, choking, chest tightness, shortness of breath, wheezing and stridor. Cardiovascular: Negative. Negative for chest pain, palpitations and leg swelling. Gastrointestinal: Negative. Negative for abdominal distention, abdominal pain, anal bleeding, bloodin stool, constipation, diarrhea, nausea, rectal pain and vomiting. Endocrine: Negative. Negative for cold intolerance, heat intolerance, polydipsia, polyphagia and polyuria. Genitourinary: Negative for decreased urine volume, difficulty urinating, discharge, dysuria, enuresis, flank pain, frequency, genital sores, hematuria, penile pain, penile swelling, scrotal swelling, testicular pain and urgency. Musculoskeletal: Negative. Negative for arthralgias, back pain, gait problem, joint swelling, myalgias, neck pain and neck stiffness. Skin: Negative. Negative for color change, pallor, rash and wound. Allergic/Immunologic: Negative. Negative for environmental allergies, food allergies and immunocompromised state. Neurological: Negative for dizziness, tremors, seizures, syncope, facial asymmetry, speech difficulty, weakness, light-headedness, numbness and headaches. Hematological: Negative. Negative for adenopathy. Does not bruise/bleed easily. Psychiatric/Behavioral: Negative for agitation, behavioral problems, confusion, decreased concentration, dysphoric mood, hallucinations, self-injury, sleep disturbance and suicidal ideas. The patientis not nervous/anxious and is not hyperactive. Physical Exam Constitutional: He is oriented to person, place, and time. Vital signs are normal. He appears well-developed and well-nourished. He is active. No distress. HENT: Head: Normocephalic. Not macrocephalic and not microcephalic. Head is without raccoon's eyes, without Kiran's sign, without abrasion, without contusion, without laceration, without right periorbitalerythema and without left periorbital erythema. Hair is normal. Right Ear: External ear normal. Left Ear: External ear normal. Nose: Nose normal. Mouth/Throat: Oropharynx is clear and moist. No oropharyngeal exudate. Eyes: Pupils are equal, round, and reactive to light. Conjunctivae, EOM and lids are normal. Neck: Trachea normal, normal range of motion, full passive range of motion without pain and phonation normal. Neck supple. Normal carotid pulses and no hepatojugular reflux present. No tracheal tenderness present. Carotid bruit is not present. No thyroid mass present. Cardiovascular: Normal rate, regular rhythm, normal heart sounds and intact distal pulses. Exam reveals no gallop and no friction rub. No murmur heard. Pulmonary/Chest: Effort normal and breath sounds normal. No stridor. No respiratory distress. He has no wheezes. He has no rales. He exhibits no tenderness. Abdominal: Soft. Bowel sounds are normal. He exhibits no distension and no mass. There is no tenderness. There is no rebound and no guarding. No hernia. Musculoskeletal: Normal range of motion. He exhibits no edema, tenderness or deformity. Lymphadenopathy: He has no cervical adenopathy. Neurological: He is alert and oriented to person, place, and time. He has normal reflexes. He displays normal reflexes. No sensory deficit. He exhibits normal muscle tone. Coordination normal. Skin: Skin is warm and dry. Capillary refill takes less than 2 seconds. No rash noted. He is not diaphoretic. No erythema. No pallor. Psychiatric: He has a normal mood and affect. His behavior is normal. Judgment and thought content normal. Nursing note and vitals reviewed. Diabetic foot exam: Left: Reflexes 2+ Vibratory sensation normal Proprioception normal Sharp/dull discrimination normal Filament test present Right: Reflexes 2+ Vibratory sensation normal Proprioception normal Sharp/dull discrimination normal Filament test present BP 124/78 (BP Location: Left arm, Patient Position: Sitting) Pulse 78 Resp 18 Ht 180.3 cm (5'11 ) Wt 117 kg (258 lb) SpO2 98% BMI 35.98 kg/m?? Assessment/Plan Diagnoses and all orders for this visit: Atherosclerosis of aorta (CMS/HCC) (I70.0) (Primary) Assessment & Plan: Reviewed all diagnostics surgery referrals laboratory Answer all questions See orders Type 2 diabetes mellitus with diabetic mononeuropathy, with long-term current use of insulin (CMS/HCC) (E11.41, Z79.4) Assessment & Plan: Stable Lab pending Reviewed past medication, medical, surgical, family, social, nutrition and activity history. Reivewed smbg food diary. Education for progression of diabetes from hyperinsulinemia to requiring insulin. Education on lifestyle modification to reduce those risk, carbohydrate counting, label reading, need 3g fiber in all grains or more, rx 6-10 low carbohydrate vegetable servings a day, 2-3 dairy, 2-3protien lean, 45-50g tid and 15g snack bid. We disussed need for smbg and was rx we discussed need for food diary and utilizing the diary as a tool to plan meals. We discussed need for eating meals same time each day eating the same number of carbohydrates each meal to maintain glucose. Medication p rescribed today the risk and benefits were discussed . Education for diabetic sick day, education for contacting the Nurse Practitioner , discussed need for nightly foot checks, adequate foot care, appropriate shoe fitting type and structure, never wear shoes without socks to avoid skin injury See orders Orders: - Comprehensive metabolic panel; Future - Microalbumin, urine, random; Future - Hemoglobin A1c; Future - eGFR Peripheral neuropathy due to disorder of metabolism ([facility]) (E88.9, G63) Assessment & Plan: Do not go barefoot Wear supportive shoes and sock Never wear shoes without socks Check feet nightly Call for any change Fu podiatry 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 2 diabetes mellitus ([facility]) (E11.69, E78.5) Assessment & Plan: Plan to eat meals same time each day, use plate method to plan appropriate fat, cho, protein and fiber Stay adequately hydrated avoid soft drinks Avoid high sugar snacks and desserts Implement walking program for exercise if approved by your provider. Take medication as prescribed report any dark urine, muscle ache or weakness to your provider Hypertension associated with diabetes ([facility]) (E11.59, I10) Assessment & Plan: Hypertension is unchanged. Continue current treatment regimen. Dietary sodium restriction. Weight loss. Regular aerobic exercise. Ambulatory blood pressure monitoring. Blood pressure will be reassessed at the next regular appointment. dash diet and exercise and continue current medication asa 81mg po qd fu 2-3 months for labs and bpevaluation encourage home monitoring of blood pressure call for less than 115/60 or greater than 140/85 heart rate less than 60 or greater than 90, education that some blood pressure medication increase risk of sun burn use sun screen hat and sleeves See orders Type 2 diabetes mellitus with other circulatory complication, with long-term current use of insulin([facility]) (E11.59, Z79.4) Assessment & Plan: Stable Lab pending Reviewed past medication, medical, surgical, family, social, nutrition and activity history. Reivewed smbg food diary. Education for progression of diabetes from hyperinsulinemia to requiring insulin. Education on lifestyle modification to reduce those risk, carbohydrate counting, label reading, need 3g fiber in all grains or more, rx 6-10 low carbohydrate vegetable servings a day, 2-3 dairy, 2-3protien lean, 45-50g tid and 15g snack bid. We disussed need for smbg and was rx we discussed need for food diary and utilizing the diary as a tool to plan meals. We discussed need for eating meals same time each day eating the same number of carbohydrates each meal to maintain glucose. Medication p rescribed today the risk and benefits were discussed . Education for diabetic sick day, education for contacting the Nurse Practitioner , discussed need for nightly foot checks, adequate foot care, appropriate shoe fitting type and structure, never wear shoes without socks to avoid skin injury See orders Morbid obesity (CMS/HCC) (E66.01) Assessment & Plan: eat three meals a day same time each day well balance using plate method found at [email or web address] stay well hydrated with water and walk 5 days a week Coronary artery disease involving akutan coronary artery of akutan heart without angina pectoris (I25.10) Assessment & Plan: Daily weights call for greater than 3 pds weight gain one day 2g sodium diet Encourage balance nutrition and exercise Fu cardiology Hemorrhoids, unspecified hemorrhoid type (K64.9) Assessment & Plan: Completed course of treated Use miralax daily to avoid constipation Soak in epsom salt and warm bath weekly Increase fruits vegetables and water Call for nayely bleeding or black tarry stools or acute pain Orders: - Ambulatory referral to Colorectal Surgery; Future BMI 36.0-36.9,adult (Z68.36) Assessment & Plan: BMI Follow-up includes: nutrition counseling, exercise counseling and education provided. Other orders - metFORMIN XR (GLUCOPHAGE XR) 500 mg 24 hr tablet; Take 2 tablets (1,000 mg total) by mouth daily with breakfast documented in this encounter Miscellaneous Notes * Assessment & Plan Note - Xena Valencia NP - 06/01/2018 4:06 PM CDTAssociated Problem(s): Hemorrhoid (Resolved 11/05/2020) Completed course of treated Use miralax daily to avoid constipation Soak in epsom salt and warm bath weekly Increase fruits vegetables and water Call for nayely bleeding or black tarry stools or acute pain * Assessment & Plan Note - Xena Valencia NP - 06/01/2018 4:06 PM CDTAssociated Problem(s): Coronary artery disease involving akutan coronary artery of akutan heart without angina pectoris Daily weights call for greater than 3 pds weight gain one day 2g sodium diet Encourage balance nutrition and exercise Fu cardiology * Assessment & Plan Note - Xena Valencia NP - 06/01/2018 4:06 PM CDTAssociated Problem(s): Class 2 severe obesity due to excess calories with serious comorbidity and body mass index (BMI) of 37.0 to 37.9 in adult (HCC) BMI Follow-up includes: nutrition counseling, exercise counseling and education provided. * Assessment & Plan Note - Xena Valencia NP - 06/01/2018 4:06 PM CDTAssociated Problem(s): Atherosclerosis of aorta (CMS/HCC) (HCC) Reviewed all diagnostics surgery referrals laboratory Answer all questions See orders * Assessment & Plan Note - Xena Valencia NP - 06/01/2018 4:06 PM CDTAssociated Problem(s): Type 2 diabetes mellitus with neurologic complication (HCC) (Resolved 11/05/2020) Stable Lab pending Reviewed past medication, medical, surgical, family, social, nutrition and activity history. Reivewed smbg food diary. Education for progression of diabetes from hyperinsulinemia to requiring insulin. Education on lifestyle modification to reduce those risk, carbohydrate counting, label reading, need 3g fiber in all grains or more, rx 6-10 low carbohydrate vegetable servings a day, 2-3 dairy, 2-3protien lean, 45-50g tid and 15g snack bid. We disussed need for smbg and was rx we discussed need for food diary and utilizing the diary as a tool to plan meals. We discussed need for eating meals same time each day eating the same number of carbohydrates each meal to maintain glucose. Medication p rescribed today the risk and benefits were discussed . Education for diabetic sick day, education for contacting the Nurse Practitioner , discussed need for nightly foot checks, adequate foot care, appropriate shoe fitting type and structure, never wear shoes without socks to avoid skin injury See orders * Assessment & Plan Note - Xena Valencia NP - 06/01/2018 4:06 PM CDTAssociated Problem(s): 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) (Resolved 02/07/2019) Do not go barefoot Wear supportive shoes and sock Never wear shoes without socks Check feet nightly Call for any change Fu podiatry * Assessment & Plan Note - Xena Valencia NP - 06/01/2018 4:05 PM CDTAssociated Problem(s): Morbid obesity (HCC) (Resolved 11/05/2020) eat three meals a day same time each day well balance using plate method found at [employer]plate.[employer] stay well hydrated with water and walk 5 days a week * Assessment & Plan Note - Xena Valencia NP - 06/01/2018 4:05 PM CDTAssociated Problem(s): 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 2 diabetes mellitus (CMS/HCC) (HCC) Plan to eat meals same time each day, use plate method to plan appropriate fat, cho, protein and fiber Stay adequately hydrated avoid soft drinks Avoid high sugar snacks and desserts Implement walking program for exercise if approved by your provider. Take medication as prescribed report any dark urine, muscle ache or weakness to your provider * Assessment & Plan Note - Xena Valencia NP - 06/01/2018 4:05 PM CDTAssociated Problem(s): Type 2 diabetes mellitus with circulatory disorder (CMS/HCC) (HCC) Stable Lab pending Reviewed past medication, medical, surgical, family, social, nutrition and activity history. Reivewed smbg food diary. Education for progression of diabetes from hyperinsulinemia to requiring insulin. Education on lifestyle modification to reduce those risk, carbohydrate counting, label reading, need 3g fiber in all grains or more, rx 6-10 low carbohydrate vegetable servings a day, 2-3 dairy, 2-3protien lean, 45-50g tid and 15g snack bid. We disussed need for smbg and was rx we discussed need for food diary and utilizing the diary as a tool to plan meals. We discussed need for eating meals same time each day eating the same number of carbohydrates each meal to maintain glucose. Medication p rescribed today the risk and benefits were discussed . Education for diabetic sick day, education for contacting the Nurse Practitioner , discussed need for nightly foot checks, adequate foot care, appropriate shoe fitting type and structure, never wear shoes without socks to avoid skin injury See orders * Assessment & Plan Note - Xena Valencia NP - 06/01/2018 4:05 PM CDTAssociated Problem(s): Hypertensive heart disease without heart failure Hypertension is unchanged. Continue current treatment regimen. Dietary sodium restriction. Weight loss. Regular aerobic exercise. Ambulatory blood pressure monitoring. Blood pressure will be reassessed at the next regular appointment. dash diet and exercise and continue current medication asa 81mg po qd fu 2-3 months for labs and bpevaluation encourage home monitoring of blood pressure call for less than 115/60 or greater than 140/85 heart rate less than 60 or greater than 90, education that some blood pressure medication increase risk of sun burn use sun screen hat and sleeves See orders documented in this encounter Plan of Treatment Scheduled Referrals Name Type Priority Associated Diagnoses Order Schedule Ambulatory referral to Colorectal Surgery Outpatient Referral Routine Hemorrhoids, unspecified hemorrhoid type 1 Occurrences starting 05/16/2018 until 11/16/2018 documented as of this encounter Procedures Procedure Name Priority Date/Time Associated Diagnosis Comments EGFR Routine 05/16/2018 12:00 PM CDT Type 2 diabetes mellitus with diabetic mononeuropathy, with long-term current use of insulin ([facility]) ALBUMIN, RANDOM URINE WITHOUT CREATININE Routine 05/16/2018 12:00 PM CDT Type 2 diabetes mellitus with diabetic mononeuropathy, with long-term current use of insulin ([facility]) HEMOGLOBIN A1C Routine 05/16/2018 12:00 PM CDT Type 2 diabetes mellitus with diabetic mononeuropathy, with long-term current use of insulin ([facility]) COMPREHENSIVE METABOLIC PANEL Routine 05/16/2018 12:00 PM CDT Type 2 diabetes mellitus with diabetic mononeuropathy, with long-term current use of insulin ([facility]) DIABETES EYE EXAM Routine 03/18/2018 documented in this encounter Results * eGFR (05/16/2018 12:00 PM CDT) [facility] eGFR >60 mL/min/1.7 3 m2 TAYLOR ZUNIGA Comment: Interpretive Data Reference Interval Normal ?>/= 90 mL/min/1.73m2 Mildly decreased* ? 60 - 89 mL/min/1.73m2 Mildly to moderately decreased ?45 - 59 mL/min/1.73m2 Moderately to severely decreased ??30 - 44 mL/min/1.73m2 Severely decreased ?15 - 29 mL/min/1.73m2 Kidney Failure ?< 15 ??mL/min/1.73m2 *Relative to young adult level If -Hungarian multiply value by 1.16. Estimated glomerular filtration [...] was last reviewed 2015. Blood specimen (specimen) 05/16/2018 12:00 PM CDT 05/16/2018 1:55 PM CDT Narrative TAYLOR ZUNIGA - 05/16/2018 2:49 PM CDT us Xena Valencia ASSISTANT DEPARTMENT MANAGER LAB BLOOD ORDERABLES Final Result TAYLOR [facility] [id number] [facility]. [place] [address] * (ABNORMAL) Hemoglobin A1c (05/16/2018 12:00 PM CDT) Hgb A1C 8.0(H) 4.0 - 5.6 % TAYLOR ZUNIGA Comment:Testing performed by : [facility], [facility], [place]., [address] Estimated Average Glucose 183 mg/dL TAYLOR ZUNIGA Comment: The ADA recommends reporting an estimated Average Glucose (eAG) with all Hemoglobin A1c results using the equation derived from a study of 507 normal and diabetic adults. ??Minority populations were underrepresented and children were not included. ?? (Diabetes Care 31:4795-7589, 2008). ??The eAG is not equivalent to a fasting glucose. Testing performed by: [facility], [address] [place] [address]., [id number] Blood specimen (specimen) 05/16/2018 12:00 PM CDT 05/16/2018 4:03 PM CDT Narrative TAYLOR MOORECH - 05/16/2018 4:18 PM CDT Xena Valencia ASSISTANT DEPARTMENT MANAGER LAB BLOOD ORDERABLES Final Result Performing Organization Address [facility] de Phone Number TAYLOR MOORECH [address] [facility] [place] [address] * (ABNORMAL) Microalbumin, urine, random (05/16/2018 12:00 PM CDT) Microalbumin, ur 117.3 mcg/mL TAYLOR ZUNIGA Comment: Interpretive Data No reference ranges have been established for random urine samples. Current Interpretive Data was last revised on 2016. Testing performed by: [facility], [address] [place] [address]., [id number] Creatinine, ur 76.20 mg/dL TAYLOR ZUNIGA Comment: Interpretive Data No reference ranges have been established for random urine samples. Current Interpretive Data was last revised on 2016. Testing performed by: [facility], [address] [place] [address]., [id number] Microalbumin/crea t ratio 153.9(H) 1.0 - 29.9 mcg/mg Cr TAYLOR ZUNIGA Comment:Testing performed by : [facility], [address] [place] [address]., [id number] Urine 05/16/2018 12:0 0 PM CDT 05/16/2018 3:38 PM CDT Narrative TAYLOR KARENCinthiaCH - 05/16/2018 4:32 PM CDT Xena Valencia NP LAB URINE ORDERABLES Final Result Performing Organization Address [facility] de Phone Number [facility] [address] [facility]. [place] [address] * Comprehensive metabolic panel (05/16/2018 12:00 PM CDT) Sodium 139 135 - 145 mmol/L [facility] Potassium, pl 4.4 3.3 - 4.9 mmol/L [facility] Chloride 100 97 - 110 mmol/L [facility] CO2 26 22 - 32 mmol/L [facility] Anion gap 13 2 - 15 mmol/L [facility] BUN 22 8 - 25 mg/dL [facility] Creatinine 1.10 0.80 - 1.30 mg/dL [facility] Glucose 194 70 - 199 mg/dL [facility] Comment: [...] interpretive data was last revised 2017. Calcium 9.7 8.5 - 10.3 mg/dL [facility] Bilirubin, total 0.5 0.1 - 1.2 mg/dL [facility] Protein, pl 7.9 6.5 - 8.5 g/dL [facility] Albumin 4.3 3.5 - 5.0 g/dL [facility] Alk phos 71 40 - 130 Units/L [facility] ALT 21 7 - 55 Units/L [facility] AST 21 10 - 50 Units/L [facility] Blood specimen (specimen) 05/16/2018 12:00 PM CDT 05/16/2018 1:55 PM CDT Narrative [facility] - 05/16/2018 2:49 PM CDT us Xena Valencia ASSISTANT DEPARTMENT MANAGER LAB BLOOD ORDERABLES Final Result [facility] [address] [facility]. 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) Hypertension associated with diabetes (HCC) Unspecified essential hypertension Type 2 diabetes mellitus with other circulatory complication, with long-term current use of insulin (HCC) Morbid obesity (HCC) Morbid obesity Coronary artery disease involving [place] coronary artery of [place] heart without angina pectoris Hemorrhoids, unspecified hemorrhoid type BMI 36.0-36.9,adult documented in this encounter Discontinued Medications Medication Sig Discontinue Reason Start Date End Da te empagliflozin-metformin 25-1,000 mg tablet, IR & ER, biphasic 24hr Take by mouth daily 05/16/2018 documented as of this encounter Care Teams Shipmaster Relationship Specialty Start Date End Date Rickey Do MD PCP - General 05/20/16 11/08/20 documented as of this encounter
--- OUTSIDE RECORDS SUMMARY | 2024-02-10 01:52 | XMS_ITS | Encounter Summary ---
Author Organization [facility] Address [address] [place] [address] Care Team Providers Care Dispatcher Clerk Name Role Phone Rickey Do MD Primary Care Provider [phone] Reason for Visit * Reason Comments Post-op Encounter Details Date Type Department Care Team (Late st Contact Info) Description 12/10/2018 12:00 PM CDT Office Visit [facility] [address] [place] [address] Felice Torrez MD [address] [place] [address] [address] [place] [address] Examination following surgery (Primary Dx) Social History Tobacco Use Types [...] on file Legal Sex Male 11:37 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 Gender Identity Not on file Sexual Orientation Not on file 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 On exam, there is a mildly swollen skin tag on the left side. The sphincterotomy wound and fissure site are both healing well. There is no evidence of any abscess or infection. Digital rectal exam was not done secondary topain. He was reassured that things are progressing appropriately. He will follow up with me as needed. documented in this encounter Plan of Treatment Not on file documented as of this encounter Visit Diagnoses Diagnosis Examination following surgery- Primary Follow-up examination, following unspecified surgery documented in this encounter Care Teams Dispatcher Clerk Relationship Specialty Start Date End Date Rickey Do MD PCP - General 05/20/16 11/08/20 documented as of this encounter
--- OUTSIDE RECORDS SUMMARY | 2024-02-10 01:52 | XMS_ITS | Encounter Summary ---
Author Organization [facility] Address [address] [place] [address] Care Team Providers Care Personal Health Coach Name Role Phone Rickey Do MD Primary Care Provider Reason for Visit * Reason Onset Date Comments Dr. Do-Medical Question 11/29/2018 Encounter Details Date Type Department Care Team (Late st Contact Info) Description 11/29/[address] [facility] [address] [place] [address] Rickey Do MD [address] [place] [id number] Dr. 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 * Telephone Encounter - Mary Lou Avilez MA - 11/29/2018 3:28 PM CDT LMOVM asking pt to call and give brand name of test strips and lancets. * Telephone Encounter - Lisbet Acosta - 11/29/2018 9:51 AM CDT Medication Question/Clarification: Medication Name: Lancets Question/Clarification:Please provide the brand and the directions to qualify it. Caller???s Callback#: [phone] Reference #[id number] Additional Comments: No additional comments Did you relay expectation for processing (allow up to 24 hours for call back)? yes documented in this encounter Plan of Treatment Not on file documented as of this encounter Visit Diagnoses Not on filedocumented in this encounter Care Teams Personal Health Coach Relationship Specialty Start Date End Date Rickey Do MD PCP - General 05/20/16 11/08/20 documented as of this encounter
--- OUTSIDE RECORDS SUMMARY | 2024-02-10 01:52 | XMS_ITS | Encounter Summary ---
Author Organization [facility] Address [address] [address] Care Team Providers Care Sales Representative Adding Machines Name Role Phone Rickey Do MD Primary Care Provider Reason for Visit * Reason Comments Diabetes Encounter Details Date Type Department Care Team (Late st Contact Info) Description 08/16/2018 10:00 AM CDT Office Visit [facility] [address] [place] [address] Xena Valencia, RD LAB TECHNICIAN [address] [place] [address] Type 2 diabetes mellitus with other circulatory complication, with long-term current use of insulin (CMS/[facility]) (Primary Dx); Hypertension associated with diabetes (CMS/HCC); Morbid obesity (CMS/HCC); Peripheral neuropathy due to disorder of metabolism (CMS/HCC); 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 2 diabetes mellitus (CMS/HCC); Type 2 diabetes mellitus with diabetic mononeuropathy, with long-term current use of insulin (CMS/HCC); Hemorrhoids, unspecified hemorrhoid type; Coronary artery disease involving [place] coronary artery of [place] heart without angina pectoris; Anal fissure; BMI 36.0-36.9,adult Social History Tobacco Use Types Packs/Day Years Used Date Smoking Tobacco: Former Cigarettes 1 15 Smokeless Tobacco: Never Comments:Smoking History Pac ks/day: 1 Packs Alcohol Use Standard Drinks/Week Comments Yes 0 (1 standard drink = 0.6 oz pur e alcohol) Sex and Gender Information Value Date Recorded Sex Assigned at Not on file Legal Sex Male 11:37 AM SHIP SCALER Gender Identity Not on file Sexual Orientation Not on file 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 Not on file documented as of this encounter Last Filed Vital Signs Vital Sign Reading Time Taken Comments Blood Pressure 132/80 08/16/2018 9:52 AM CDT Pulse 86 08/16/2018 9:52 AM CDT Temperature - - Respiratory Rate 18 08/16/2018 9:52 AM CDT Oxygen Saturation 98% 08/16/2018 9:52 AM CDT Inhaled Oxygen Concentration - - Weight 121.6 kg (268 lb) 08/16/2018 9:52 AM CDT Height 180.3 cm (5' 11 ) 08/16/2018 9:52 AM CDT Body Mass Index 37.38 08/16/2018 9:52 AM CDT documented in this encounter Ordered Prescriptions Prescription Sig Dispense Quantity Refills Last Filled Start Date End Date cephalexin (KEFLEX) 500 mg capsule Take 1 capsule (500 mg total) by mouth 2 (two) times a day for 7 days 14 capsule 08/16/2018 9 methylPREDNISolone (MEDROL DOSEPACK) 4 mg Dosepack Take as directed on package. 21 tablet 08/16/2018 9 documented in this encounter Progress Notes * Xena Valencia, VASQUEZ - 08/16/2018 10:00 AM CDT Subjective/Objective Patient ID: Ayden Santos is a 72 y.o. male. Chief Complaint Diabetes 72 yo male presents with much pain He had hemorrhoid surgery rubber band and q time he has bm he bleeds and has severe pain He went back but Dr Torerz was out so another provider looks at him and he states it was opened up again Went to Dr Torrez and he did same thing Admits yesterday he was fine but today had bm took shower and on way over here it started hurting Admits since procedure he has loose stools He was rx yellow topical meds and it doesn't help He has been sitting in tub and epsom salt daily and taking multiple showers It is affecting his smbg are they are elevated When his rectum is flared his bs are over 200 Otherwise he is 130-150 Takes meds as rx for htn lipid Denies cp sob Current Outpatient Medications: ??? acyclovir (ZOVIRAX) 400 mg tablet, TAKE 1 TABLET BY MOUTH TWO TIMES DAILY, Disp: 180 tablet, Rfl: 2 ??? aspirin 81 mg enteric coated tablet, Take 81 mg by mouth daily, Disp: , Rfl: ??? blood glucose diagnostic ([facility] LabsTOUCH VERIO) strip, 1 each by other route as directed. Bid ac, Disp: 100 each, Rfl: 3 ??? cephalexin (KEFLEX) 500 mg capsule, Take 1 capsule (500 mg total) by mouth 2 (two) times a day for 7 days, Disp: 14 capsule, Rfl: 0 ??? cholecalciferol (VITAMIN D-3) 2,000 unit capsule, Take 2,000 Units by mouth daily, Disp: , Rfl: ??? coenzyme Q10 (COQ-10) 100 mg capsule, take 3 by Oral route every evening, Disp: 0, Rfl: 0 ??? irbesartan-hydroCHLOROthiazide (AVALIDE) 300-12.5 mg per tablet, Take 1 tablet by mouth daily.,Disp: 90 tablet, Rfl: 3 ??? lancets (Cash4Goldtouch ultrasoft) misc, test by by finger stick route 3 times every day, Disp: 300, Rfl: 8 ??? metFORMIN XR (GLUCOPHAGE XR) 500 mg 24 hr tablet, Take 2 tablets (1,000 mg total) by mouth daily with breakfast, Disp: 180 tablet, Rfl: 3 ??? methylPREDNISolone (MEDROL DOSEPACK) 4 mg Dosepack, Take as directed on package., Disp: 21 tablet, Rfl: 0 ??? metoprolol (LOPRESSOR) 50 mg tablet, TAKE [...] pen, INJECT 24 UNITS UNDER THE SKIN DAILY., Disp: 30 mL, Rfl: 11 Allergies Allergen Reactions ??? Royce Inhibitors Cough Reaction: Cough, , ??? Amlodipine Edema Reaction: Edema, , ??? Farxiga [Dapagliflozin] Diarrhea Immunization History Administered Date(s) Administered ??? Hep A, Adult 02/16/2000, 02/05/2001 ??? Influenza, Split 11/29/2011 ??? Influenza, Trivalent, High Dose, Split, Preservative Free, Intramuscular 11/20/2013, 12/03/2015 ??? Influenza, Trivalent, Intramuscular 01/22/2008, 11/29/2010 ??? Influenza, Trivalent, Recombinant, Egg Free, Preservative Free, Antibiotic Free, Intramuscular 11/10/2014 ??? Influenza, Unspecified 11/21/2016, 11/20/2017 ??? Pneumococcal Conjugate PCV 13 07/22/2014 ??? Pneumococcal Polysaccharide PPV23 11/29/2001, 12/12/2009, 11/29/2010 ??? Td 02/16/2000 ??? Tdap 02/25/2010 ??? ZOSTER LIVE 04/03/2008 PHQ Screening Over the last 2 weeks, [...] diarrhea. Negative for abdominal distention, abdominal pain, anal bleeding, blood in stool, constipation, nausea, rectal pain and vomiting. Endocrine: Negative. [...] allergies, food allergies and immunocompromised state. Neurological: Positive for numbness. Negative for dizziness, tremors, seizures, syncope, facial asymmetry, speech difficulty, weakness, light-headedness and headaches. Hematological: Negative. Negative for adenopathy. Does not bruise/bleed easily. Psychiatric/Behavioral: Positive for agitation, dysphoric mood and sleep disturbance. Negative for behavioral problems, confusion, decreased concentration, hallucinations, self-injury and suicidal ideas. The patient is not nervous/anxious and is not hyperactive. Physical [...] and phonation normal. Neck supple. Normal carotid pulses, no hepatojugular reflux and no JVD present. No tracheal tenderness present. Carotid bruit is not present. No tracheal deviation present. No thyroid mass and no thyromegaly present. Cardiovascular: Normal rate, regular rhythm, normal [...] no rebound and no guarding. No hernia. Genitourinary: Rectum normal. Genitourinary Comments: Mild irritaton external anus with soft varicosity noted at 9 oclock no fissure identified externally No shaina was completed due to his pain Musculoskeletal: Normal range of motion. He exhibits no edema, tenderness or deformity. Lymphadenopathy: He has no cervical adenopathy. Neurological: He is alert and oriented to person, place, and time. He has normal reflexes. He displays normal reflexes. No cranial nerve deficit or sensory deficit. He exhibits normal muscle tone. Coordination normal. Skin: Skin is warm and dry. Capillary refill takes less than 2 seconds. No rash noted. He is not diaphoretic. No erythema. No pallor. Psychiatric: He has a normal mood and affect. His behavior is normal. Judgment and thought content normal. Nursing note and vitals reviewed. Diabetic foot exam: Left: Reflexes 2+ Vibratory sensation diminished Proprioception diminished Sharp/dull discrimination diminished Filament test present Right: Reflexes 2+ Vibratory sensation diminished Proprioception diminished Sharp/dull discrimination diminished Filament test present BP 132/80 (BP Location: Left arm, Patient Position: Sitting) Pulse 86 Resp 18 Ht 180.3 cm (5'11 ) Wt 121.6 kg (268 lb) SpO2 98% BMI 37.38 kg/m?? Assessment/Plan Diagnoses and all orders for this visit: Type 2 diabetes mellitus with other circulatory complication, with long-term current use of insulin([facility]) (E11.59, Z79.4) (Primary) Assessment & Plan: Stable Lab pending Reviewed [...] we are going to make a switch Hypertension associated with diabetes ([facility]) (E11.59, I10) Assessment & Plan: Hypertension is [...] sun screen hat and sleeves See orders Morbid obesity ([facility]) (E66.01) Assessment & Plan: eat three meals a day same time each day well balance using plate method found at Inhibitex.gov stay well hydrated with water and walk 5 days a week Peripheral neuropathy due to disorder of metabolism ([facility]) (E88.9, G63) Assessment & Plan: Do not go barefoot Wear supportive shoes and sock Never wear shoes without socks Check feet nightly Call for any change Fu podiatry 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 2 diabetes mellitus ([facility]) (E11.69, E78.5) Assessment & Plan: Plan to eat meals same time each day, use plate method to plan appropriate fat, cho, protein and fiber Stay adequately hydrated avoid soft drinks Avoid high sugar snacks and desserts Implement walking program for exercise if approved by your provider. Take medication as prescribed report any dark urine, muscle ache or weakness to your provider Type 2 diabetes mellitus with diabetic mononeuropathy, with long-term current use of insulin ([facility]) (E11.41, Z79.4) Assessment & Plan: Stable Lab [...] shoes without socks to avoid skin injury Hemorrhoids, unspecified hemorrhoid type (K64.9) Assessment & Plan: Reviewed hospital admission discharge treatment plan diagnostic laboratory referrals Reconciled medication allergies Written plan was given to the patient for rtov I, Xena Valencia NP have personally reviewed pertinent Hospital/ER data including [employer] and Care Everywhere if available. This patient's discharge medication list has been reviewed andreconciled with his medication list in the office chart and has also been reviewed with patient and/or caregiver. I have noted any changes. Completed course of treated Use miralax daily to avoid constipation Soak in epsom salt and warm bath weekly Increase fruits vegetables and water Call for nayely bleeding or black tarry stools or acute pain Coronary artery disease involving [place] coronary artery of [place] heart without angina pectoris (I25.10) Assessment & Plan: Daily weights call for greater than 3 pds weight gain one day 2g sodium diet Encourage balance nutrition and exercise Fu cardiology Anal fissure (K60.2) Assessment & Plan: Not seen on ltd exam rx antbx low dose and oral steroid to assist in his discomfort BMI 36.0-36.9,adult (Z68.36) Assessment & Plan: BMI Follow-up includes: nutrition counseling, exercise counseling and education provided. Other orders - methylPREDNISolone (MEDROL DOSEPACK) 4 mg Dosepack; Take as directed on package. - cephalexin (KEFLEX) 500 mg capsule; Take 1 capsule (500 mg total) by mouth 2 (two) times a day for 7 days documented in this encounter Miscellaneous Notes * Assessment & Plan Note - Xena Valencia NP - 08/16/2018 3:50 PM CDTAssociated Problem(s): Hemorrhoid (Resolved 11/05/2020) Reviewed hospital admission discharge treatment plan diagnostic laboratory referrals Reconciled medication allergies Written plan was given to the patient for rtov IXena. VASQUEZ Valencia have personally reviewed pertinent Hospital/ER data including [employer] and Care Everywhere if available. This patient's discharge medication list has been reviewed andreconciled with his medication list in the office [...] Plan Note - Xena Valencia NP - 08/16/2018 3:49 PM CDTAssociated Problem(s): Coronary artery disease involving [place] coronary artery of [place] heart without angina pectoris Daily weights call for greater than 3 pds weight gain one day 2g sodium diet Encourage balance nutrition and exercise Fu cardiology * Assessment & Plan Note - Xena Valencia NP - 08/16/2018 3:49 PM CDTAssociated Problem(s): Class 2 severe obesity due to excess calories with serious comorbidity and body mass index (BMI) of 37.0 to 37.9 in adult (HCC) BMI Follow-up includes: nutrition counseling, exercise counseling and education provided. 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) (Resolved 02/07/2019) Do not go barefoot Wear supportive shoes and sock Never wear shoes without socks Check feet nightly Call for any change Fu podiatry * Assessment & Plan Note - Xena Valencia NP - 08/16/2018 3:48 PM CDTAssociated Problem(s): Morbid obesity (HCC) (Resolved 11/05/2020) eat three meals a day same time each day well balance using plate method found at Inhibitex.gov stay well hydrated with water and walk 5 days a week * Assessment & Plan Note - Xena Valencia NP - 08/16/2018 3:48 PM CDTAssociated Problem(s): 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 [...] Plan Note - Xena Valencia NP - 08/16/2018 3:48 PM CDTAssociated Problem(s): Type 2 diabetes mellitus [...] we are going to make a switch * Assessment & Plan Note - Xena Valencia NP - 08/16/2018 3:47 PM CDTAssociated Problem(s): Hypertensive heart disease without [...] long-term current use of insulin (HCC)- Primary Hypertension associated with diabetes (HCC) Unspecified essential hypertension Morbid obesity (HCC) Morbid obesity 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
--- OUTSIDE RECORDS SUMMARY | 2024-02-10 01:52 | XMS_ITS | Encounter Summary ---
Author Organization [facility] Address [address] [address] [place] [address] Care Team Providers Care Voice Data Communications Engineer Name Role Phone Rickey Do MD Primary Care Provider [phone] Reason for Visit * Reason Onset Date Comments Ernestina Test Result Request 12/19/2018 Encounter Details Date Type Department Care Team (Late st Contact Info) Description 12/19/2018 Telephone [facility] [address] [facility] [address] [facility] [address] [place] [address] Rickey Do MD [address] [facility] [address] [place] [id number] Ernestina Test Result Request Social History Tobacco Use Types Packs/Day [...] Legal 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 * Telephone Encounter - Xena Valencia NP - 12/19/2018 10:28 AM CDT Answered same day Result Notes for CT Abdomen W Contrast Notes recorded by Xena Valencia NP on 12/17/2018 at 4:38 PM CDT Call pt ct abd stable no change He has calcification in coronary artery and aorta Similar to last time Make sure he has cardiology fu visit * Telephone Encounter - Mary Lou Avilez MA - 12/19/2018 10:06 AM CDT Pt requesting results for CT * Telephone Encounter - Roseline Baez - 12/19/2018 9:09 AM CDT Test Result- Not Present or Present, but Not Reviewed by Provider: Type of test: CT Date of test: 12.17.18 Where test was performed: In office imaging center Caller's Callback #: [phone] Additional Questions/Comments: Patient is requesting results. Did you relay expectation for call back (up to 24 hours)? Yes documented in this encounter Plan of Treatment Not on file documented as of this encounter Visit Diagnoses Not on filedocumented in this encounter Care Teams Voice Data Communications Engineer Relationship Specialty Start Date End Date Rickey Do MD PCP - General 05/20/16 11/08/20 documented as of this encounter
--- OUTSIDE RECORDS SUMMARY | 2024-02-10 01:52 | XMS_ITS | Encounter Summary ---
Author Organization [facility] Address [address] [facility] [address] [place] [address] Care Team Providers Care Airport Security Screener Name Role Phone Rickey Do MD Primary Care Provider [phone] Reason for Visit * Reason Comments Coronary Artery Disease Encounter Details Date Type Department Care Team (Late st Contact Info) Description 05/02/2018 1:15 PM CDT Office Visit [facility] [place] [place] Cardiology [address] [facility] [address] [place] [address] Farrukh Jiménez MD [address] [place] [address] [address] [place] [address] Coronary artery disease involving [place] coronary artery of [place] heart without angina pectoris (Primary Dx); Essential hypertension, benign; Hypercholesteremia Social History Tobacco Use Types Packs/Day Years Used Date Smoking Tobacco: Former Cigarettes 1 15 Smokeless Tobacco: Never Comments:Smoking History Pac ks/day: 1 Packs Alcohol Use Standard Drinks/Week Comments Yes 0 (1 standard drink = 0.6 oz pur e alcohol) Sex and Gender Information Value Date Recorded Sex Assigned at Not on file 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 Gender Identity Not on file Sexual Orientation Not on file 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 Not on file documented as of this encounter Last Filed Vital Signs Vital Sign Reading Time Taken Comments Blood Pressure 138/61 05/02/2018 12:39 PM CDT Pulse 84 05/02/2018 12:39 PM CDT Temperature - - Respiratory Rate - - Oxygen Saturation - - Inhaled Oxygen Concentration - - Weight 117.5 kg (259 lb) 05/02/2018 12:39 PM CDT Height 180.3 cm (5' 11 ) 05/02/2018 12:39 PM CDT Body Mass Index 36.12 05/02/2018 12:39 PM CDT documented in this encounter Progress Notes * Farrukh Jiménez MD - 05/02/2018 1:15 PM CDT Patient Name: Ayden Santos Provider: Farrukh Jiménez MD : 1945 Date of Service: 05/02/2018 Referring: Ernestina CHIEF COMPLAINT: Coronary Artery Disease HISTORY OF PRESENT ILLNESS: 72 y.o. male MEDICATIONS: Outpatient Encounter Medications as of 05/02/2018 Medication Sig Dispense Refill ??? acyclovir (ZOVIRAX) 400 mg tablet TAKE 1 TABLET BY MOUTH TWO TIMES DAILY 180 tablet 2 ??? aspirin 81 mg enteric coated tablet Take 81 mg by mouth daily ??? blood glucose diagnostic ([employer] VERIO) strip 1 each by other route as directed. Bid ac 100 each 3 ??? cholecalciferol (VITAMIN D-3) 2,000 unit capsule Take 2,000 Units by mouth daily ??? coenzyme Q10 (COQ-10) 100 mg capsule take 3 by Oral route every evening 0 0 ? ? empagliflozin-metformin 25-1,000 mg tablet, IR & ER, biphasic 24hr Take by mouth daily ??? irbesartan-hydroCHLOROthiazide (AVALIDE) 300-12.5 mg per tablet Take 1 tablet by mouth daily. 90 tablet 3 ??? lancets (onetouch ultrasoft) misc test by by finger stick route 3 times every day 300 8 ??? metoprolol (LOPRESSOR) 50 mg tablet TAKE 1 TABLET BY MOUTH 3 TIMES A DAY. (TAKE 2 TABLETS AT LUNCH AND ONE TABLET AT BEDTIME) 270 tablet 0 ??? nitroglycerin (NITROSTAT) 0.[address] 1 tablet by sublingual route at the 1st sign of attack; may repeat every 5 min until relief; if pain persists after 3 tablets in 15 min, prompt medical attention is recommended 1 0 ??? pen needle, diabetic (PEN NEEDLE) 31 gauge x 1/4 needle Inject 1 pen under the skin daily. 100each 3 ??? simvastatin (ZOCOR) 40 mg tablet Take 1 tablet (40 mg total) by mouth nightly. 90 tablet 3 ??? XULTOPHY 100/3.6 100 unit-3.6 mg /mL (3 mL) insulin pen INJECT 24 UNITS UNDER THE SKIN DAILY. 30 mL 11 ??? [DISCONTINUED] aspirin (BABY ASPIRIN) 81 mg chewable tablet chew 1 tablet (81MG) by oral route every day 0 ??? [DISCONTINUED] cholecalciferol (VITAMIN D3) 1,000 unit capsule one daily 0 ? ? [DISCONTINUED] empagliflozin-metformin (SYNJARDY XR) 12.5-1,000 mg tablet, IR & ER, biphasic 24hr Take 1 tablet by mouth daily. 90 tablet 1 ??? [DISCONTINUED] FLUZONE HIGH-DOSE 2017-, PF, 180 mcg/0.5 mL syringe Inject 1 application into the muscle as instructed once. 0 ??? [DISCONTINUED] insulin degludec-liraglutide 100 unit-3.6 mg /mL (3 mL) insulin pen Inject 28 Units under the skin daily. 9 Syringe 3 ??? [DISCONTINUED] irbesartan-hydrochlorothiazide (AVALIDE) 150-12.5 mg per tablet Take 1 tablet bymouth daily. 90 tablet 3 No facility-administered encounter medications on file as of 05/02/2018. REVIEW OF SYSTEMS: General: No fever, chills, [...] excessive bleeding or bruising PHYSICAL EXAM: BP 138/61 Pulse 84 Ht 180.3 cm (5' 11 ) Wt 117.5 kg (259 lb) BMI 36.12 kg/m?? General: Well appearing, No pain or [...] for this visit: Coronary artery disease involving [place] coronary artery of [place] heart without angina pectoris (Primary) Assessment & Plan: Stable, mild coronary disease without angina. I made no change in his excellent medical regimen today. I asked him to follow up with me annually, or sooner if needed. I again advised him to diet and exercise regularly. Essential hypertension, benign Assessment & Plan: Blood pressure is well controlled. Continue same therapy. Continue diet and exercise. Hypercholesteremia Assessment & Plan: Lipids are well controlled. Continue statin therapy. Patient Name: Ayden Santos Provider: Farrukh Jiménez MD : 1945 Date of Service: 05/02/2018 Referring: Ernestina CHIEF COMPLAINT: Coronary Artery Disease HISTORY OF PRESENT ILLNESS: 72 y.o. male returns in follow-up of mild [...] exertional chest discomfort or dyspnea. He is exercising regularly. Recent LDL is 77. MEDICATIONS: Outpatient Encounter Medications as of 05/02/2018 Medication Sig Dispense Refill ??? acyclovir (ZOVIRAX) 400 mg tablet TAKE 1 TABLET BY MOUTH TWO TIMES DAILY 180 tablet 2 ??? aspirin 81 mg enteric coated tablet Take 81 mg by mouth daily ??? blood glucose diagnostic ([employer] VERIO) strip 1 each by other route as directed. Bid ac 100 each 3 ??? cholecalciferol (VITAMIN D-3) 2,000 unit capsule Take 2,000 Units by mouth daily ??? coenzyme Q10 (COQ-10) 100 mg capsule take 3 by Oral route every evening 0 0 ? ? empagliflozin-metformin 25-1,000 mg tablet, IR & ER, biphasic 24hr Take by mouth daily ??? irbesartan-hydroCHLOROthiazide (AVALIDE) 300-12.5 mg per tablet Take 1 tablet by mouth daily. 90 tablet 3 ??? lancets (onetouch ultrasoft) misc test by by finger stick route 3 times every day 300 8 ??? metoprolol (LOPRESSOR) 50 mg tablet TAKE 1 TABLET BY MOUTH 3 TIMES A DAY. (TAKE 2 TABLETS AT LUNCH AND ONE TABLET AT BEDTIME) 270 tablet 0 ??? nitroglycerin (NITROSTAT) 0.[address] 1 tablet by sublingual route at the 1st sign of attack; may repeat every 5 min until relief; if pain persists after 3 tablets in 15 min, prompt medical attention is recommended 1 0 ??? pen needle, diabetic (PEN NEEDLE) 31 gauge x 1/4 needle Inject 1 pen under the skin daily. 100each 3 ??? simvastatin (ZOCOR) 40 mg tablet Take 1 tablet (40 mg total) by mouth nightly. 90 tablet 3 ??? XULTOPHY 100/3.6 100 unit-3.6 mg /mL (3 mL) insulin pen INJECT 24 UNITS UNDER THE SKIN DAILY. 30 mL 11 ??? [DISCONTINUED] aspirin (BABY ASPIRIN) 81 mg chewable tablet chew 1 tablet (81MG) by oral route every day 0 ??? [DISCONTINUED] cholecalciferol (VITAMIN D3) 1,000 unit capsule one daily 0 ? ? [DISCONTINUED] empagliflozin-metformin (SYNJARDY XR) 12.5-1,000 mg tablet, IR & ER, biphasic 24hr Take 1 tablet by mouth daily. 90 tablet 1 ??? [DISCONTINUED] FLUZONE HIGH-DOSE 2017-, PF, 180 mcg/0.5 mL syringe Inject 1 application into the muscle as instructed once. 0 ??? [DISCONTINUED] insulin degludec-liraglutide 100 unit-3.6 mg /mL (3 mL) insulin pen Inject 28 Units under the skin daily. 9 Syringe 3 ??? [DISCONTINUED] irbesartan-hydrochlorothiazide (AVALIDE) 150-12.5 mg per tablet Take 1 tablet bymouth daily. 90 tablet 3 No facility-administered encounter medications on file as of 05/02/2018. REVIEW OF SYSTEMS: General: No fever, chills, [...] excessive bleeding or bruising PHYSICAL EXAM: BP 138/61 Pulse 84 Ht 180.3 cm (5' 11 ) Wt 117.5 kg (259 lb) BMI 36.12 kg/m?? General: Well appearing, No pain or [...] for this visit: Coronary artery disease involving [place] coronary artery of [place] heart without angina pectoris (Primary) Assessment & Plan: Stable, mild coronary disease without angina. I made no change in his excellent medical regimen today. I asked him to follow up with me annually, or sooner if needed. I again advised him to diet and exercise regularly. Essential hypertension, benign Assessment & Plan: Blood pressure is well controlled. Continue same therapy. Continue diet and exercise. Hypercholesteremia Assessment & Plan: Lipids are well controlled. Continue statin therapy. documented in this encounter Miscellaneous Notes * Assessment & Plan Note - Farrukh Jiménez MD - 05/02/2018 12:45 PM CDT Associated Problem(s): Hypercholesteremia (Resolved 05/16/2018) Lipids are well controlled. Continue statin therapy. * Assessment & Plan Note - Farrukh Jiménez MD - 05/02/2018 12:45 PM CDT Associated Problem(s): Essential hypertension, benign (Resolved 08/16/2018) Blood pressure is well controlled. Continue same therapy. Continue diet and exercise. * Assessment & Plan Note - Farrukh Jiménez MD - 05/02/2018 12:44 PM CDT Associated Problem(s): Coronary artery disease involving [place] coronary artery of [place] heart without angina pectoris Stable, mild coronary [...] Visit Diagnoses Diagnosis Coronary artery disease involving [place] coronary artery of [place] heart without angina pectoris- Primary Essential hypertension, benign Hypercholesteremia Pure hypercholesterolemia documented in this encounter Discontinued Medications Medication Sig Discontinue Reason Start Date End Da te aspirin (BABY ASPIRIN) 81 mg chewable tablet chew 1 tablet (81MG) by oral route every day 12/12/2011 05/02/2018 cholecalciferol (VITAMIN D3) 1,000 unit capsule one daily 04/11/2016 05/02/2018 empagliflozin-metformi n (SYNJARDY XR) 12.5-1,000 mg tablet, IR & ER, biphasic 24hrIndications:type 2 diabetes mellitus Take 1 tablet by mouth daily. 02/15/2018 05/02/2018 FLUZONE HIGH-DOSE 2018-, PF, 180 mcg/0.5 mL syringe Inject 1 application into the muscle as instructed once. 11/20/2017 05/02/2018 insulin degludec-liraglutide 100 unit-3.6 mg /mL (3 mL) insulin penIndications:Type 2 diabetes mellitus with diabetic mononeuropathy, with long-term current use of insulin (HCC) Inject 28 Units under the skin daily. 06/26/2017 05/02/2018 irbesartan-hydrochloro thiazide (AVALIDE) 150-12.5 mg per tablet Take 1 tablet by mouth daily. 09/25/2017 05/02/2018 documented as of this encounter Historical Medications * This list may reflect changes made after this encounter. cholecalciferol (VITAMIN D-3) 2,000 unit capsule Take 1 capsule (2,000 Units total) by mouth daily empagliflozin-met formin 25-1,000 mg tablet, IR & ER, biphasic 24hr Take by mouth daily 05/16/2018 aspirin 81 mg enteric coated tablet Take 81 mg by mouth daily 09/28/2018 added in this encounter Care Teams Airport Security Screener Relationship Specialty Start Date End Date Rickey Do MD PCP - General 05/20/16 11/08/20 documented as of this encounter
--- OUTSIDE RECORDS SUMMARY | 2024-02-10 01:52 | XMS_ITS | Encounter Summary ---
Author Organization [facility] Care Team Providers Care Stockroom Worker Name Role Phone Rickey Do MD Primary Care Provider Encounter Details Date Type Department Care Team (Latest Contact Info) Description 07/26/2018 Travel Social History Tobacco Use Types Packs/Day Years Used Date Smoking Tobacco: Former Cigarettes 1 15 Smokeless Tobacco: Never Comments:Smoking History Pac ks/day: 1 Packs Alcohol Use Standard Drinks/Week Comments Yes 0 (1 standard drink = 0.6 oz pur e alcohol) Sex and Gender Information Value Date Recorded Sex Assigned at Not on file 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
--- OUTSIDE RECORDS SUMMARY | 2024-02-10 01:52 | XMS_ITS | Encounter Summary ---
Author Organization [facility] Address [address] [place] [address] Care Team Providers Care Hearing Examiner Name Role Phone Rickey Do MD Primary Care Provider [phone] Reason for Visit * Reason Onset Date Comments Dr. Hernandez reflorena 05/03/2018 Encounter Details Date Type Department Care Team (Late st Contact Info) Description 05/03/2018 Telephone [facility] [address] [facility] [address] [place] [address] Rickey Do MD [address] [facility] [address] [place] [id number] Dr. 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 They have two different directions.Sending high priority because pharmacy says this is their third attempt and they need to clarify ittoday. documented in this encounter Plan of Treatment Not on file documented as of this encounter Visit Diagnoses Not on filedocumented in this encounter Care Teams Hearing Examiner Relationship Specialty Start Date End Date Rickey Do MD PCP - General 05/20/16 11/08/20 documented as of this encounter
--- OUTSIDE RECORDS SUMMARY | 2024-02-10 01:52 | XMS_ITS | Encounter Summary ---
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
--- OUTSIDE RECORDS SUMMARY | 2024-02-10 01:52 | XMS_ITS | Encounter Summary ---
Author Organization [facility] Care Team Providers Care Eyewear Manufacturing Tech Name Role Phone Rickey Do MD Primary Care Provider [phone] Encounter Details Date Type Department Care Team (Latest Contact Info) Description 05/02/2018 Travel Social History Tobacco Use Types Packs/Day Years Used Date Smoking Tobacco: Former Cigarettes 1 15 Smokeless Tobacco: Never Comments:Smoking History Pac ks/day: 1 Packs Alcohol Use Standard Drinks/Week Comments Yes 0 (1 standard drink = 0.6 oz pur e alcohol) Sex and Gender Information Value Date Recorded Sex Assigned at Not on file 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
--- OUTSIDE RECORDS SUMMARY | 2024-02-10 01:52 | XMS_ITS | Encounter Summary ---
Author Organization [facility] Facility Care Team Providers Care Redipper Name Role Phone Rickey Do MD Primary Care Provider Encounter Details Date Type Department Care Team (Latest Contact Info) Description 08/16/2018 Travel Social History Tobacco Use Types Packs/Day Years Used Date Smoking Tobacco: Former Cigarettes 1 15 Smokeless Tobacco: Never Comments:Smoking History Pac ks/day: 1 Packs Alcohol Use Standard Drinks/Week Comments Yes 0 (1 standard drink = 0.6 oz pur e alcohol) Sex and Gender Information Value Date Recorded Sex Assigned at Not on file Legal Sex Male 11:37 AM RN CARDIOVASCULAR Gender Identity Not on file Sexual Orientation Not on file 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
--- OUTSIDE RECORDS SUMMARY | 2024-02-10 01:52 | XMS_ITS | Encounter Summary ---
Author Organization [facility] Address [address] [place] [address] Care Team Providers Care Assembling Inspector Name Role Phone Rickey Do MD Primary Care Provider Reason for Visit * Reason Onset Date Comments Ernestina Med Refill 12/19/2018 Encounter Details Date Type Department Care Team (Late st Contact Info) Description 12/19/2018 Telephone [facility] [address] 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 Did you relay expectation for processing (24-48 hours non-controlled; 72 hours controlled)? Yes documented in this encounter Plan of Treatment Not on file documented as of this encounter Visit Diagnoses Not on filedocumented in this encounter Discontinued Medications Medication Sig Discontinue Reason Start Date End Da te metFORMIN XR (GLUCOPHAGE XR) 500 mg 24 hr tablet Take 2 tablets (1,000 mg total) by mouth daily with breakfast Reorder 12/06/2018 12/19/2018 documented as of this encounter Care Teams Assembling Inspector Relationship Specialty Start Date End Date Rickey Do MD PCP - General 05/20/16 11/08/20 documented as of this encounter
--- OUTSIDE RECORDS SUMMARY | 2024-02-10 01:52 | XMS_ITS | Encounter Summary ---
Author Organization [facility] Address [address] [place] [address] Care Team Providers Care Mechanical Maintenance Technician Name Role Phone Rickey Do MD Primary Care Provider [phone] Reason for Referral * Diagnostic Imaging (Routine) - Closed Specialty Diagnoses / Procedures Referred By Contac t Referred To Contact Radiology Diagnoses Abnormal findings on diagnostic imaging of lung Acute right-sided thoracic back pain Procedures CT Abdomen W Contrast Xena Valencia NP Phone: tel: fax: [facility] Radiology Referral ID Status Reason Start Date Expiration Date Visits Re quested Visits Authorized [id number] Closed 11/21/2018 06/01/2020 1 1 Reason for Visit * Diagnostic Imaging (Routine) - Closed Specialty Diagnoses / Procedures Referred By Contac t Referred To Contact Radiology Diagnoses Abnormal findings on diagnostic imaging of lung Acute right-sided thoracic back pain Procedures CT Abdomen W Contrast Xena Valencia NP Phone: tel: fax: [facility] Radiology Referral ID Status Reason Start Date Expiration Date Visits Re quested Visits Authorized [id number] Closed 11/21/2018 06/01/2020 1 1 Encounter Details Date Type Department Care Team (Latest Contact Info) Description 12/17/2018 2:35 PM CDT - 12/17/2018 11:59 PM CDT Hospital Encounter [facility] [address] [place] [address] Rickey Do MD [address] [place] [address] Xena Valencia, VASQUEZ [address] [place] [address] Abnormal findings on diagnostic imaging of lung; Acute right-sided thoracic back pain Discharge Disposition: Discharge to home or self [...] on file 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 Gender Identity Not on file Sexual [...] Oral route every evening 0 0 04/11/2016 lancets (onetouch ultrasoft) misc 1 each by other route as directed Check smbg bid ac and prn for dm uncontolled 180 each 3 11/21/2018 0 pen needle, diabetic (PEN NEEDLE) 31 gauge x 1/4 needle Inject 1 pen under the skin daily 100 each 3 11/21/2018 0 acyclovir (ZOVIRAX) 400 mg tablet Take 1 tablet (400 mg total) by mouth 2 (two) times a day 180 tablet 2 11/21/2018 0 BOTOX 100 unit recon soln 09/25/2018 0 insulin degludec-liraglu tide (XULTOPHY 100/3.6) 100 unit-3.6 mg /mL (3 mL) insulin penIndications:T ype 2 diabetes mellitus with diabetic mononeuropathy, with long-term current use of insulin (HCC) Inject 24 Units under the skin daily 30 mL 11 11/21/2018 0 irbesartan-hydro CHLOROthiazide (AVALIDE) 300-12.5 mg per tabletIndication s:hypertension Take 1 tablet by mouth daily 90 tablet 3 11/21/2018 9 metFORMIN XR (GLUCOPHAGE XR) 500 mg 24 hr tablet Take 2 tablets (1,000 mg total) by mouth daily with breakfast 180 tablet 3 12/06/2018 9 metoprolol (LOPRESSOR) 50 mg tablet Take 100mg at lunch and 50mg at bedtime 270 tablet 3 11/21/2018 0 simvastatin (ZOCOR) 40 mg tablet Take 1 tablet (40 mg total) by mouth nightly 90 tablet 3 11/21/2018 0 documented as of this encounter Discharge Disposition Disposition Code Departure Means Destination Discharge to home or self care documented in this encounter Progress Notes * Xena Valencia NP - 12/17/2018 3:30 PM CDT Call pt ct abd stable no change He has calcification in coronary artery and aorta Similar to last time Make sure he has cardiology fu visit documented in this encounter Plan of Treatment Not on file documented as of this encounter Procedures Procedure Name Priority Date/Time Associated Diagnosis Comments CT ABDOMEN W CONTRAST Schedule Routine, Read Routine (OP Routine) 12/17/2018 3:05 PM CDT Abnormal findings on diagnostic imaging of lung Acute right-sided thoracic back pain documented in this encounter Results * CT Abdomen W Contrast (12/17/2018 3:05 PM CDT) Anatomical Region Laterality Modality Body N/A Computed Tomogra phy 12/17/2018 4:22 PM CDT Impressions 12/17/2018 4:22 PM CDT 1. Fatty liver. 2. Colonic diverticulosis. 3. Multivessel coronary artery calcifications. Electronically signed by: Jim Mccann M.D. [facility] 12/17/2018 4:22 PM CDT EXAMINATION: ??Computed tomography [...] signed by: Jim Mccann M.D. Xena Valencia ENDOSCOPIC TECHNICIAN IMG CT PROCEDURES Fi nal Result documented in this encounter Visit Diagnoses Diagnosis Abnormal findings on diagnostic imaging of lung Acute right-sided thoracic back pain documented in this encounter Administered Medications Inactive Administered Medications - up to 3 most recent administrations Medication Order MAR Action Action Date Dose Rate Site ioversol (OPTIRAY 350) syringe syringe 125 mL 125 mL, intravenous, Once in imaging, contrast, Starting on 12/17/18 at 1505, For 1 dose Given 12/17/2018 3:10 PM CDT 125 mL documented in this encounter Care Teams Mechanical Maintenance Technician Relationship Specialty Start Date End Date Rickey Do MD PCP - General 05/20/16 11/08/20 documented as of this encounter
--- OUTSIDE RECORDS SUMMARY | 2024-02-10 01:52 | XMS_ITS | Encounter Summary ---
Author Organization 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
--- OUTSIDE RECORDS SUMMARY | 2024-02-10 01:52 | XMS_ITS | Encounter Summary ---
Author Organization [facility] Address [address] [place] [address] Care Team Providers Care Clerk Guide Name Role Phone Rickey Do MD Primary Care Provider [phone] Reason for Visit * Reason Comments Hemorrhoids * Consultation (Routine) - Closed Specialty Diagnoses / Procedures Referred By Jp buckner Referred To Contact Surgery / Colon and Rectal Surgery Diagnoses Hemorrhoids, unspecified hemorrhoid type Rickey Do MD Phone: tel: fax: Hali Wu MD Phone: tel: fax: Referral ID Status Reason Start Date Expiration Date V isits Requested Visits Authorized [id number] Closed Specialty Services Required 05/16/2018 11/25/2019 1 1 Encounter Details Date Type Department Care Team (Late st Contact Info) Description 06/13/2018 1:30 PM CDT Office Visit [facility] [address] [place] [address] Felice Torrez MD [address] [place] [address] Hemorrhoids, unspecified hemorrhoid type Social History Tobacco Use Types Packs/Day Years Used Date Smoking Tobacco: Former Cigarettes 1 15 Smokeless Tobacco: Never Comments:Smoking History Pac ks/day: 1 Packs Alcohol Use Standard Drinks/Week Comments Yes 0 (1 standard drink = 0.6 oz pur e alcohol) Sex and Gender Information Value Date Recorded Sex Assigned at Not on file 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 Sex 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 Gender Identity Not on file Sexual Orientation Not on file 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 Not on file documented as of this encounter Last Filed Vital Signs Vital Sign Reading Time Taken Comments Blood Pressure 130/78 06/13/2018 1:34 PM CDT Pulse - - Temperature - - Respiratory Rate - - Oxygen Saturation - - Inhaled Oxygen Concentration - - Weight 117.9 kg (260 lb) 06/13/2018 1:34 PM CDT Height 180.3 cm (5' 11 ) 06/13/2018 1:34 PM CDT Body Mass Index 36.26 06/13/2018 1:34 PM CDT documented in this encounter Progress Notes * Felice Torrez MD - 06/13/2018 1:30 PM CDT Chief Complaint: rectal bleeding History of Present Illness: Mr Santos is a 72 year-old man who had some rectal bleeding about 3 weeks ago. It was not associated with any pain, but was bad enough to be dripping into the toilet bowl. For the past 2 weeks, he has not had any bleeding. He has noticed protrusion of an internal hemorrhoid. He denies any urgency, incontinence, change in bowel habits, diarrhea, or constipation. He had acolonoscopy last year. Review of Systems: as per office questionnaire Past Medical History: Type 2 diabetes, peripheral neuropathy, hypertension, CAD, Past Surgical History: Hemorrhoidectomy many years ago Allergies: none Social History: no tobacco, occasional alcohol Family History: Positive for colorectal cancer, negative for inflammatory bowel disease. Physical exam: The perianal skin is normal, with no rashes or skin lesions. There are no thrombosedexternal hemorrhoids, skin tags, fissures or fistulas. There is a chronically prolapsed internal hemorrhoid on the left side. Digital rectal exam had normal sphincter tone, with no masses or tenderness. Anoscopy revealed three-quadrant internal hemorrhoids, largest on the left. This is the likely source of bleeding. Assessment and Plan: Bleeding/prolapsed internal hemorrhoid - grade 4. This is amenable to rubber band ligation. Risks of bleeding, tenesmus, and post-banding sepsis were explained, and he wished to proceed. Banding was done per the separate procedure note. He will follow up in one month if symptoms persist. documented in this encounter Procedure Notes * Felice Torrez MD - 06/13/2018 1:30 PM CDT Procedure Note: Rubber Band ligation for Internal Hemorrhoids Indication for Banding/Infrared: Encounter Diagnosis Name Primary? Hemorrhoids, unspecified hemorrhoid type Description of Procedure: Risks and benefits were explained in detail. Questions were encouraged and answered. Rubberband ligation was performed on a left lateral hemorrhoid. Post procedure: The patient tolerated the procedure well. Patient discharged in stable condition. Follow up: as needed Felice Torrez MD documented in this encounter Plan of Treatment Not on file documented as of this encounter Visit Diagnoses Diagnosis Hemorrhoids, unspecified hemorrhoid type documented in this encounter Orders Outpatient Referral Count Last Ordered Date Fir st Ordered Date AMB REFERRAL TO COLORECTAL SURGERY 1 2018 documented in this encounter Care Teams Clerk Guide Relationship Specialty Start Date End Date Rickey Do MD PCP - General 05/20/16 11/08/20 documented as of this encounter
--- OUTSIDE RECORDS SUMMARY | 2024-02-10 01:52 | XMS_ITS | Encounter Summary ---
Author Organization [facility] Address [address] [place] [address] Care Team Providers Care Credit Administration Officer Name Role Phone Rickey Do MD Primary Care Provider [phone] Encounter Details Date Type Department Care Team (Late st Contact Info) Description 02/04/2019 Nurse Triage [facility] [address] [facility] [place] [id number] Rickey Do MD [address] [facility] [place] [address] Social History Tobacco Use Types Packs/Day Years [...] on file Legal Sex Male 11:37 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 AL DEVELOPER * Telephone Encounter - An Soto NP - 02/04/2019 11:35 AM CST Please call and schedule him AL DEVELOPER * Telephone Encounter - Marcelina Boyce RN - 02/04/2019 10:21 AM VISUAL DEVELOPER Patient calling reporting rectal bleeding. History significant for colon polyps, bleeding hemorrhoids, anal fissure. Has had rectal bleeding x1 month, feels it has worsened in the last week. Stool is formed, goes up to 5 times a day. He has blood in his stool every time he goes. He says it is a significant amount of blood, and it looks like skin when he wipes. He passes some blood without stool while going to the bathroom. He also is experiencing urgency and some incontinence. Of note, he is leaving the country 03[place]10[place]19 for 3 weeks. Disposition for ED now. Patient refuses ED - doesn't feel it's an emergency and says he will go to ED if he worsens. Requesting appointment February 06, , or between 10-12pm. Home care advice of making sure he stays well-hydrated in the meantime. Unable to book for these times. Routing to clinical pool for review. Please call back Ayden Garza Danielle at [phone] regarding whether he is able to be worked into the schedule. Reason for Disposition ??? [1] MODERATE rectal bleeding (small blood clots, passing blood without stool, or toilet water turns red) AND [2] more than once a day Protocols used: RECTAL [id number] AL DEVELOPER * Telephone Encounter - Marcelina Boyce RN - 02/04/2019 10:16 AM VISUAL DEVELOPER Regarding: Rectal bleeding, right side pain uncontrollable bowels ----- Message from Estela Graham sent at 02/04/2019 10:08 AM VISUAL DEVELOPER ----- Symptom Based Call Chief Complaint: Rectal bleeding, right side pain uncontrollable bowels Duration: Not specified Appointment Details: Current appointment is 02/18/2019- Seeking an appt on 02/06/19,02/07/19 or 02/08/19 @ 10am due to traffic Caller's Callback #: [phone] Additional Comments: Patient said he had a rectal operation a few months ago. His symptoms are worsening. His thinks it may be related to the operation. He uses the bathroom at least 5 times daily and has bleeding each time. He is going to [place] on 03/10/2019 for 3 weeks. The flight is 18 hours and patient would like to get situation under control prior to his departure. Please advise. If practice uses e-visit, condition meets e-visit criteria, and patient has MyChart did you offer e-visit?: No Did you relay expectation for call back (can filling machine operator: Red Flag 10-15 min; non- emergent up to 3 hours)(Practice: Red Flag warm transfer; non-emergent up to 24 hours)? Yes AL DEVELOPER documented in this encounter Plan of Treatment Not on file documented as of this encounter Visit Diagnoses Not on filedocumented in this encounter Care Teams Credit Administration Officer Relationship Specialty Start Date End Date Rickey Do MD PCP - General 05/20/16 11/08/20 documented as of this encounter
--- OUTSIDE RECORDS SUMMARY | 2024-02-10 01:52 | XMS_ITS | Encounter Summary ---
Author Organization [facility] Address [address] [facility] [address] [place] [address] Care Team Providers Care Chief Ii Dispatcher Name Role Phone Rickey Do MD Primary Care Provider [phone] Reason for Referral * Diagnostic Imaging (Routine) - Closed Specialty Diagnoses / Procedures Referred By Jp buckner Referred To Contact Radiology Diagnoses Abnormal findings on diagnostic imaging of lung Acute right-sided thoracic back pain Procedures CT Abdomen W Contrast Xena Valencia NP Phone: tel: fax: [facility] Radiology Referral ID Status Reason Start Date Expiration Date Visits Re quested Visits Authorized [id number] Closed 11/21/2018 06/01/2020 1 1 Reason for Visit * Reason Comments Medicare Wellness Encounter Details Date Type Department Care Team (Late st Contact Info) Description 11/21/2018 10:00 AM CDT Office Visit [facility] [address] [place] [address] Xena Valencia NP [address] [place] [address] [place] [address] Medicare annual wellness visit, subsequent (Primary Dx); Atherosclerosis of aorta (CMS/HCC); Adrenal cyst (CMS/HCC); 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 2 diabetes mellitus (CMS/HCC); Type 2 diabetes mellitus with diabetic mononeuropathy, with long-term current use of insulin (CMS/HCC); Peripheral neuropathy due to disorder of metabolism (CMS/HCC); Hypertension associated with diabetes (CMS/HCC); Type 2 diabetes mellitus with other circulatory complication, with long-term current use of insulin (CMS/HCC); Morbid obesity ([facility]/HCC); Hemorrhoids, unspecified hemorrhoid type; Anal fissure; Renal cyst, acquired, right; DDD (degenerative disc disease), thoracolumbar; Screening for colon cancer; Coronary artery disease involving [place] coronary artery of [place] heart without angina pectoris; Family history of colon cancer; Herpes simplex virus (HSV) infection; Benign neoplasm of colon, unspecified part of colon; Vitamin D deficiency; DDD (degenerative disc disease), cervical; Abnormal findings on diagnostic imaging of lung; Acute right-sided thoracic back pain; Abnormal results of thyroid function studies ; BMI 36.0-36.9,adult Social History Tobacco Use Types [...] on file 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 Gender Identity Not on file Sexual Orientation Not on file 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 Not on file documented as of this encounter Last Filed Vital Signs Vital Sign Reading Time Taken Comments Blood Pressure 140/70 11/21/2018 9:51 AM CDT Pulse 78 11/21/2018 9:51 AM CDT Temperature 36.5 ??C (97.7 ??F) 11/21/2018 9:51 AM CD T Respiratory Rate 18 11/21/2018 9:51 AM CDT Oxygen Saturation 98% 11/21/2018 9:51 AM CDT Inhaled Oxygen Concentration - - Weight 117.5 kg (259 lb) 11/21/2018 9:51 AM CDT Height 180.3 cm (5' 11 ) 11/21/2018 9:51 AM CDT Body Mass Index 36.12 11/21/2018 9:51 AM CDT documented in this encounter Ordered Prescriptions Prescription Sig Dispense Quantity Refills Last Filled Start Date End Date blood glucose diagnostic (ONETOUCH VERIO) strip smbg bid ac 100 each 11 11/21/2018 acyclovir (ZOVIRAX) 400 mg tablet Take 1 tablet (400 mg total) by mouth 2 (two) times a day 180 tablet 2 11/21/2018 0 irbesartan-hydroCH LOROthiazide (AVALIDE) 300-12.5 mg per tabletIndications: hypertension Take 1 tablet by mouth daily 90 tablet 3 11/21/2018 9 lancets (onetouch ultrasoft) misc 1 each by other route as directed Check smbg bid ac and prn for dm uncontolled 180 each 3 11/21/2018 0 metFORMIN XR (GLUCOPHAGE XR) 500 mg 24 hr tablet Take 2 tablets (1,000 mg total) by mouth daily with breakfast 180 tablet 3 11/21/2018 9 metoprolol (LOPRESSOR) 50 mg tablet Take 100mg at lunch and 50mg at bedtime 270 tablet 3 11/21/2018 0 pen needle, diabetic (PEN NEEDLE) 31 gauge x 1/4 needle Inject 1 pen under the skin daily 100 each 3 11/21/2018 0 simvastatin (ZOCOR) 40 mg tablet Take 1 tablet (40 mg total) by mouth nightly 90 tablet 3 11/21/2018 0 insulin degludec-liragluti de (XULTOPHY 100/3.6) 100 unit-3.6 mg /mL (3 mL) insulin penIndications:Typ e 2 diabetes mellitus with diabetic mononeuropathy, with long-term current use of insulin (HCC) Inject 24 Units under the skin daily 30 mL 11 11/21/2018 0 documented in this encounter Progress Notes * Xena Valencia, VASQUEZ - 11/21/2018 10:00 AM CDT Subjective/Objective Patient ID: Ayden Santos is a 72 y.o. male. Chief Complaint Medicare Wellness 72 yo male presents for annual subsequent medicare exam Has co right side pain chronic Denies dysuria hematuria fcnvd Has hx of adrenal lipoma Has been fu with colorectal and had hemorrhoidectomy had post operative issue and is scheduled to return to surgery next week Past Medical History: Diagnosis Date ??? Adiposity [...] of education: 20 ??? Highest education level: None Occupational History ??? 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 Financial resource strain: None ??? Food insecurity: Worry: None Inability: None ??? Transportation needs: Medical: None Non-medical: None Tobacco Use ??? Smoking status: Former Smoker Packs/day: 1.00 Years: 15.00 Pack years: 15.00 Types: Cigarettes ??? Smokeless tobacco: Never Used ??? Tobacco comment: Smoking History Packs/day: 1 Packs Substance and Sexual Activity ??? Alcohol use: Yes ??? Drug use: No ??? Sexual activity: Never Lifestyle ??? Physical activity: Days per week: None Minutes per session: None ??? Stress: None Relationships ??? Social connections: Talks on phone: None Gets together: None Attends mandaen service: None Active member of club or organization: None Attends meetings of clubs or organizations: None Relationship status: None ??? Intimate partner violence: Fear of current or ex partner: None Emotionally abused: None Physically abused: None Forced sexual activity: None Other Topics Concern ??? None Social History Narrative Agrees to blood/blood products: Y Agrees to blood/blood products: Y Current Outpatient Medications: ??? acyclovir (ZOVIRAX) 400 mg tablet, Take 1 tablet (400 mg total) by mouth 2 (two) times a day, Disp: 180 tablet, Rfl: 2 ??? blood glucose diagnostic (ONETOUCH VERIO) strip, smbg bid ac, Disp: 100 each, Rfl: 11 ??? BOTOX 100 unit recon soln, , Disp: , Rfl: ??? cholecalciferol (VITAMIN D-3) 2,000 unit capsule, Take 2,000 Units by mouth daily, Disp: , Rfl: ??? coenzyme Q10 (COQ-10) 100 mg capsule, take 3 by Oral route every evening, Disp: 0, Rfl: 0 ??? insulin degludec-liraglutide (XULTOPHY 100/3.6) 100 unit-3.6 mg /mL (3 mL) insulin pen, Inject 24 Units under the skin daily, Disp: 30 mL, Rfl: 11 ??? irbesartan-hydroCHLOROthiazide (AVALIDE) 300-12.5 mg per tablet, Take 1 tablet by mouth daily, Disp: 90 tablet, Rfl: 3 ??? lancets (onetouch ultrasoft) misc, 1 each by other route as directed Check smbg bid ac and prn for dm uncontolled, Disp: 180 each, Rfl: 3 ??? metFORMIN XR (GLUCOPHAGE XR) 500 mg 24 hr tablet, Take 2 tablets (1,000 mg total) by mouth daily with breakfast, Disp: 180 tablet, Rfl: 3 ??? metoprolol (LOPRESSOR) 50 mg tablet, Take 100mg at lunch and 50mg at bedtime, Disp: 270 tablet,Rfl: 3 ??? pen needle, diabetic (PEN NEEDLE) 31 gauge x 1/4 needle, Inject 1 pen under the skin daily, Disp: 100 each, Rfl: 3 ??? simvastatin (ZOCOR) 40 mg tablet, Take 1 tablet (40 mg total) by mouth nightly, Disp: 90 tablet, Rfl: 3 Allergies Allergen Reactions ??? [...] LIVE 04/03/2008 ??? ZOSTER Recombinant 05/16/2018, 09/12/2018 PHQ Screening Over the last 2 weeks, [...] Down, Depressed, or Hopeless: Not at all Medicare Health Risk Assessment Basic Information In general, would you say your health is: Good Do you have an Advanced Directive (Living Will) and/or Durable Power of Senior Linux Systems Engineer?: Yes - Please bring a copy to [...] Taking and/or getting your own medications: No [facility] Mental Status Assesment Data: Able to state day of the week?: Yes Able to state year?: Yes Able to name state?: Yes able to state how much money spent?: Yes Able to state how much money is left?: Yes How many animals named in one minute?: 15 plus Number of items named?: five Able to state numbers backward?: all Hours marked correctly?: Yes Time marked correctly?: Yes Placed X in triangle?: Yes Able to idenify larger figure?: Yes Able to remember female name?: Yes Able to state what work she did?: Yes Able to state when she went back to work?: Yes Able to state what state she lived in?: Yes Total Score:: 31 STEADI Fall Risk Screening In the past [...] pain. Negative for abdominal distention, abdominal pain, analbleeding, blood in stool, constipation, diarrhea, nausea and vomiting. Endocrine: Negative. Negative for cold intolerance, heat intolerance, polydipsia, polyphagia and polyuria. Genitourinary: Negative for decreased urine volume, difficulty urinating, discharge, dysuria, enuresis, flank pain, frequency, genital sores, hematuria, penile pain, penile swelling, scrotal swelling, testicular pain and urgency. Musculoskeletal: Positive for back pain. Negative for arthralgias, gait problem, joint swelling, myalgias, neck pain and neck stiffness. Skin: Positive for wound. Negative for color change, pallor and rash. Allergic/Immunologic: Negative. Negative for environmental allergies, food [...] is oriented to person, place, and time. He appears well- developed and well-nourished. No distress. He is not intubated. HENT: Head: Normocephalic. Not macrocephalic and not microcephalic. Head is without contusion and withoutlaceration. Hair is normal. Right Ear: Hearing, tympanic membrane, external ear and ear canal normal. Left Ear: Hearing, tympanic membrane, external ear and ear canal normal. Nose: Nose normal. No mucosal edema, rhinorrhea, nose lacerations, sinus tenderness, nasal deformity, septal deviation or nasal septal hematoma. No epistaxis. No foreign bodies. Right sinus exhibits no maxillary sinus tenderness and no frontal sinus tenderness. Left sinus exhibits no maxillary sinus tenderness and no frontal sinus tenderness. Mouth/Throat: Uvula is midline and oropharynx is clear and moist. No oral lesions. No trismus in the jaw. Normal dentition. No uvula swelling or lacerations. No oropharyngeal exudate, posterior oropharyngeal edema or posterior oropharyngeal erythema. Eyes: Pupils are equal, round, and reactive to light. Conjunctivae, EOM and lids are normal. Right eye exhibits no chemosis, no discharge, no exudate and no hordeolum. No foreign body present in the right eye. Left eye exhibits no chemosis, no discharge, no exudate and no hordeolum. No foreign bodypresent in the left eye. Right conjunctiva is not injected. Right conjunctiva has no hemorrhage. Left conjunctiva is not injected. Left conjunctiva has no hemorrhage. No scleral icterus. Neck: Normal range of motion, full passive range of motion without pain and phonation normal. Neck supple. Normal carotid pulses, no hepatojugular reflux and no JVD present. Tracheal tenderness present. No spinous process tenderness present. Carotid bruit is not present. No neck rigidity. No tracheal deviation, no edema, no erythema and normal range of motion present. No Brudzinski's sign and no Kernig's sign noted. No thyroid mass and no thyromegaly present. Cardiovascular: Normal rate, regular rhythm, S1 normal, S2 normal, normal heart sounds, intact distal pulses and normal pulses. PMI is not displaced. Exam reveals no gallop, no S3, no S4, no distant heart sounds and no friction rub. No murmur heard. Pulses: Carotid pulses are 2+ on the right side, and 2+ on the left side. Dorsalis pedis pulses are 2+ on the right side, and 2+ on the left side. Posterior tibial pulses are 2+ on the right side, and 2+ on the left side. Pulmonary/Chest: Effort normal and breath sounds normal. No accessory muscle usage or stridor. No apnea, no tachypnea and no bradypnea. He is not intubated. No respiratory distress. He has no decreased breath sounds. He has no wheezes. He has no rales. He exhibits no tenderness. Abdominal: Soft. Normal appearance, normal aorta and bowel sounds are normal. He exhibits distension. He exhibits no shifting dullness, no pulsatile liver, no fluid wave, no abdominal bruit, no ascites, no pulsatile midline mass and no mass. There is no hepatosplenomegaly. There is tenderness. There is no rigidity, no rebound, no guarding and no CVA tenderness. No hernia. Genitourinary: Genitourinary Comments: Declined just saw dr reyes Musculoskeletal: He exhibits tenderness. He exhibits no edema or deformity. Right foot: There is normal range of motion and no deformity. Left foot: There is normal range of motion and no deformity. Ltd rom c spine knee elbow shoulder Tenderness over lateral rib right posterior Feet: Right Foot: Protective Sensation: 4 sites tested. 4 sites sensed. Left Foot: Protective Sensation: 4 sites tested. 4 sites sensed. Lymphadenopathy: Head (right side): No submental, no submandibular, no tonsillar, no preauricular, no posterior auricular and no occipital adenopathy present. Head (left side): No submental, no submandibular, no tonsillar, no preauricular, no posterior auricular and no occipital adenopathy present. He has no cervical adenopathy. He has no axillary adenopathy. Right: No inguinal, no supraclavicular and no epitrochlear adenopathy present. Left: No inguinal, no supraclavicular and no epitrochlear adenopathy present. Neurological: He is alert and oriented to person, place, and time. He has normal reflexes. He displays normal reflexes. No cranial nerve deficit or sensory deficit. He exhibits normal muscle tone. Hedisplays a negative Romberg sign. Coordination and gait normal. Reflex Scores: Tricep reflexes are 2+ on the right side and 2+ on the left side. Bicep reflexes are 2+ on the right side and 2+ on the left side. Brachioradialis reflexes are 2+ on the right side and 2+ on the left side. Patellar reflexes are 2+ on the right side and 2+ on the left side. Achilles reflexes are 2+ on the right side and 2+ on the left side. Skin: Skin is warm, dry and intact. Capillary refill takes less than 2 seconds. No abrasion, no bruising, no burn, no ecchymosis, no laceration, no lesion, no petechiae and no rash noted. He is not diaphoretic. No cyanosis or erythema. No pallor. Nails show no clubbing. Psychiatric: He has a normal mood and affect. His behavior is normal. Judgment and thought content normal. His mood appears not anxious. His affect is not angry. His speech is not delayed and not slurred. He is not agitated, not slowed and not actively hallucinating. Cognition and memory are normal. He does not exhibit a depressed mood. He is attentive. Nursing note and vitals reviewed. Diabetic foot exam: Left: Reflexes 2+ Vibratory sensation normal Proprioception normal Sharp/dull discrimination normal Filament test present Right: Reflexes 2+ Vibratory sensation normal Proprioception normal Sharp/dull discrimination normal Filament test present BP 140/70 (BP Location: Left arm, Patient Position: Sitting) Pulse 78 Temp 36.5 ??C (97.7 ??F) (Oral) Resp 18 Ht 180.3 cm (5' 11 ) Wt 117.5 kg (259 lb) SpO2 98% BMI 36.12 kg/m?? Assessment/Plan Diagnoses and all orders for this visit: Medicare annual wellness visit, subsequent (Z00.00) (Primary) Assessment & Plan: patient presents for annual exam ekg noted labs pending get copy of living will to pcp encourage follow gi for scheduled colonoscopy and egd if indicated encourage annual eye exam and dental minimum 2 times year encourage balance nutrition utilizing [email or web address]gov and exercise 5 days a week. See orders Atherosclerosis of aorta ([facility]) (I70.0) Assessment & Plan: Reviewed all diagnostics surgery referrals laboratory Answer all questions Control dm htn lipid Call for le weakness abdominal pain fatigue Orders: - Comprehensive metabolic panel; Future - eGFR Adrenal cyst ([facility]) (E27.8) Assessment & Plan: Reviewed all diagnostics surgery referrals laboratory Answer all questions 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 2 diabetes mellitus ([facility]) (E11.69, E78.5) Assessment & Plan: Plan [...] or weakness to your provider See orders Orders: - Lipid panel; Future Type 2 diabetes mellitus with diabetic mononeuropathy, with long-term current use of insulin ([facility]) (E11.41, Z79.4) Assessment & Plan: Stable [...] avoid skin injury See orders Orders: - insulin degludec-liraglutide (XULTOPHY 100/3.6) 100 unit-3.6 mg /mL (3 mL) insulin pen; Inject 24Units under the skin daily Peripheral neuropathy due to disorder of metabolism ([facility]) (E88.9, G63) Assessment & Plan: Do not go barefoot Wear supportive shoes and sock Never wear shoes without socks Check feet nightly Call for any change Fu podiatry Hypertension associated with diabetes ([facility]) (E11.59, I10) Assessment & Plan: Hypertension [...] burn use sun screen hat and sleeves Type 2 diabetes mellitus with other circulatory complication, with long-term current use of insulin([facility]) (E11.59, Z79.4) Assessment & Plan: Stable Lab [...] avoid skin injury See orders Orders: - Urinalysis reflex to microscopic and culture Urine; Future - Urinalysis, microscopic only Morbid obesity (CMS/HCC) (E66.01) Assessment & Plan: eat three meals a day same time each day well balance using plate method found at [employer]gov stay well hydrated with water and walk 5 days a week Orders: - TSH; Future Hemorrhoids, unspecified hemorrhoid type (K64.9) Assessment & Plan: S/p surgery Fu colorectal for final procedure Ice not heat Orders: - CBC with auto differential; Future - Erythrocyte sedimentation rate; Future - Differential, auto Anal fissure (K60.2) Assessment & Plan: Reviewed all diagnostics surgery referrals laboratory Answer all questions Increase water hydration, fruits, vegetables walking. use otc miralax nightly hold for diarrhea. report any changes bleeding pain po intolerance if no improvement consult gi Fu colorectal as directed Orders: - CBC with auto differential; Future - Erythrocyte sedimentation rate; Future - Differential, auto Renal cyst, acquired, right (N28.1) Assessment & Plan: Reviewed all diagnostics surgery referrals laboratory Answer all questions Stable lab pending avoid all advil/ibuprofen and aleve/naproxen stay well hydrated avoid soft drinks lab pending call for any change or new symptoms DDD (degenerative disc disease), thoracolumbar (M51.35) Assessment & Plan: Reviewed all diagnostics surgery referrals laboratory Answer all questions Ice not heat , Rest with periods of walking. Prescription sent to pharmacy take as directed. All risk and benefits were discussed with patient. Reviewed prior diagnostics, labs consult prior treatments medications, d/w need for physical therapy and pain management Patient verbalized understanding agrees with plan of care See orders Screening for colon cancer (Z12.11) Assessment & Plan: Reviewed all diagnostics surgery referrals laboratory Answer all questions Fu colorectal and gi is not due Coronary artery disease involving [place] coronary artery of [place] heart without angina pectoris (I25.10) Assessment & Plan: Daily weights call for greater than 3 pds weight gain one day 2g sodium diet Encourage balance nutrition and exercise Fu cardiology Family history of colon cancer (Z80.0) Assessment & Plan: Reviewed all diagnostics surgery referrals laboratory Answer all questions Fu gi as directed report any changes Herpes simplex virus (HSV) infection (B00.9) Assessment & Plan: Do not use topical medication Wear loose clothing Rest Stay hydrated Take antiviral medication Take gabapentin for the pain Education they may cause sedation do not drive or use etoh with that medication rtc 2 weeks Call for any s/s infection worse rash or pain Benign neoplasm of colon, unspecified part of colon (D12.6) Assessment & Plan: Reviewed all diagnostics surgery referrals laboratory Answer all questions Fu gi as directed Vitamin D deficiency (E55.9) Assessment & Plan: Continue supplement Increase weight resistant exercise See orders DDD (degenerative disc disease), cervical (M50.30) Assessment & Plan: Reviewed all diagnostics surgery [...] plan of care Enc weight loss walking Abnormal findings on diagnostic imaging of lung (R91.8) Assessment & Plan: Reviewed all diagnostics surgery referrals laboratory Answer all questions Consider repeat ct lung one year Orders: - XR Ribs Right 2 Views; Future - CT Abdomen W Contrast; Future Acute right-sided thoracic back pain (M54.6) Assessment & Plan: Reviewed all diagnostics surgery referrals laboratory Answer all questions See orders Ice not heat , Rest with periods of walking. Prescription sent to pharmacy take as directed. All risk and benefits were discussed with patient. Reviewed prior diagnostics, labs consult prior treatments medications, d/w need for physical therapy and pain management Patient verbalized understanding agrees with plan of care Orders: - Erythrocyte sedimentation rate; Future - TSH; Future - Creatine kinase (CK), total; Future - XR Ribs Right 2 Views; Future - CT Abdomen W Contrast; Future Abnormal results of thyroid function studies (R94.6) - TSH; Future BMI 36.0-36.9,adult (Z68.36) Assessment & Plan: BMI Follow-up includes: nutrition counseling, exercise counseling and education provided. Other orders - Flu Vaccine High Dose Tri PF 65y+ IM - Fluzone - simvastatin (ZOCOR) 40 mg tablet; Take 1 tablet (40 mg total) by mouth nightly - pen needle, diabetic (PEN NEEDLE) 31 gauge x 1/4 needle; Inject 1 pen under the skin daily - blood glucose diagnostic (ONETOUCH VERIO) strip; smbg bid ac - metoprolol (LOPRESSOR) 50 mg tablet; Take 100mg at lunch and 50mg at bedtime - metFORMIN XR (GLUCOPHAGE XR) 500 mg 24 hr tablet; Take 2 tablets (1,000 mg total) by mouth daily with breakfast - lancets (onetouch ultrasoft) misc; 1 each by other route as directed Check smbg bid ac and prn for dm uncontolled - irbesartan-hydroCHLOROthiazide (AVALIDE) 300-12.5 mg per tablet; Take 1 tablet by mouth daily - acyclovir (ZOVIRAX) 400 mg tablet; Take 1 tablet (400 mg total) by mouth 2 (two) times a day Cosigned by Rickey Do MD at 11/28/2018 3:14 PM CDT * Xena Valencia NP - 11/21/2018 10:00 AM CDT Call pt labs stable sign up for my chart documented in this encounter Miscellaneous Notes * Assessment & Plan Note - Xena Valencia NP - 11/27/2018 7:26 AM CDTAssociated Problem(s): History of colon polyps Reviewed all diagnostics surgery referrals laboratory Answer all questions Fu colorectal and gi is not due * Assessment & Plan Note - Xena Valencia NP - 11/27/2018 7:26 AM CDTAssociated Problem(s): Renal cyst, acquired, right Reviewed all diagnostics surgery referrals laboratory Answer all questions Stable lab pending avoid all advil/ibuprofen and aleve/naproxen stay well hydrated avoid soft drinks lab pending call for any change or new symptoms * Assessment & Plan Note - Xena Valencia NP - 11/27/2018 7:26 AM CDTAssociated Problem(s): Medicare annual wellness visit, subsequent (Resolved 02/10/2021) patient presents for annual exam ekg noted labs pending get copy of living will to pcp encourage follow gi for scheduled colonoscopy and egd if indicated encourage annual eye exam and dental minimum 2 times year encourage balance nutrition utilizing [email or web address].gov and exercise 5 days a week. See orders * Assessment & Plan Note - Xena Valencia NP - 11/27/2018 7:25 AM CDTAssociated Problem(s): Hemorrhoid (Resolved 11/05/2020) S/p surgery Fu colorectal for final procedure Ice not heat * Assessment & Plan Note - Xena Valencia NP - 11/27/2018 7:25 AM CDTAssociated Problem(s): DDD (degenerative disc disease), thoracolumbar Reviewed all diagnostics surgery referrals laboratory Answer all questions Ice not heat , Rest with periods of walking. Prescription sent to pharmacy take as directed. All risk and benefits were discussed with patient. Reviewed prior diagnostics, labs consult prior treatments medications, d/w need for physical therapy and pain management Patient verbalized understanding agrees with plan of care See orders * Assessment & Plan Note - Xena Valencia NP - 11/27/2018 7:22 AM CDTAssociated Problem(s): Coronary artery disease involving [place] coronary artery of [place] heart without angina pectoris Daily weights call for greater than 3 pds weight gain one day 2g sodium diet Encourage balance nutrition and exercise Fu cardiology * Assessment & Plan Note - Xena Valencia NP - 11/27/2018 7:22 AM CDTAssociated Problem(s): Class 2 severe obesity due to excess calories with serious comorbidity and body mass index (BMI) of 37.0 to 37.9 in adult (HCC) BMI Follow-up includes: nutrition counseling, exercise counseling and education provided. * Assessment & Plan Note - Xena Valencia NP - 11/27/2018 7:22 AM CDTAssociated Problem(s): Atherosclerosis of aorta (CMS/HCC) (HCC) Reviewed all diagnostics surgery referrals laboratory Answer all questions Control dm htn lipid Call for le weakness abdominal pain fatigue * Assessment & Plan Note - Xena Valencia NP - 11/27/2018 7:21 AM CDTAssociated Problem(s): Anal fissure (Resolved 02/20/2019) Reviewed all diagnostics surgery referrals laboratory Answer all questions Increase water hydration, fruits, vegetables walking. use otc miralax nightly hold for diarrhea. report any changes bleeding pain po intolerance if no improvement consult gi Fu colorectal as directed * Assessment & Plan Note - Xena Valencia NP - 11/27/2018 7:21 AM CDTAssociated Problem(s): Adrenal cyst (HCC) (Resolved 11/05/2020) Reviewed all diagnostics surgery referrals laboratory Answer all questions * Assessment & Plan Note - Xena Valencia NP - 11/27/2018 7:21 AM CDTAssociated Problem(s): Acute right-sided thoracic back pain (Resolved 02/07/2019) Reviewed all diagnostics surgery referrals laboratory Answer all questions See orders Ice not heat , Rest with periods of walking. Prescription sent to pharmacy take as directed. All risk and benefits were discussed with patient. 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) (Resolved 02/07/2019) Do not go barefoot Wear supportive shoes and sock Never wear shoes without socks Check feet nightly Call for any change Fu podiatry * Assessment & Plan Note - Xena Valencia NP - 11/27/2018 7:20 AM CDTAssociated Problem(s): Morbid obesity (HCC) (Resolved 11/05/2020) eat three meals a day same time each day well balance using plate method found at [facility] stay well hydrated with water and walk 5 days a week * Assessment & Plan Note - Xena Valencia NP - 11/27/2018 7:20 AM CDTAssociated Problem(s): 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 2 [...] or weakness to your provider See orders * Assessment & Plan Note - Xena Valencia NP - 11/27/2018 7:20 AM CDTAssociated Problem(s): Family history of colon cancer (Resolved 08/19/2021) Reviewed all diagnostics surgery referrals laboratory Answer all questions Fu gi as directed report any changes * Assessment & Plan Note - Xena Valencia NP - 11/27/2018 7:20 AM CDTAssociated Problem(s): Vitamin D deficiency (Resolved 02/24/2022) Continue supplement Increase weight resistant exercise See orders * Assessment & Plan Note - Xena Valencia NP - 11/27/2018 7:20 AM CDTAssociated Problem(s): Type 2 diabetes mellitus with [...] Plan Note - Xena Valencia NP - 11/27/2018 7:20 AM CDTAssociated Problem(s): Hypertensive heart disease without heart [...] burn use sun screen hat and sleeves * Assessment & Plan Note - Xena Valencia NP - 11/27/2018 7:20 AM CDTAssociated Problem(s): Herpes simplex Do not use topical medication Wear loose clothing Rest Stay hydrated Take antiviral medication Take gabapentin for the pain Education they may cause sedation do not drive or use etoh with that medication rtc 2 weeks Call for any s/s infection worse rash or pain * Assessment & Plan Note - Xena Valencia NP - 11/27/2018 7:19 AM CDTAssociated Problem(s): DDD (degenerative disc disease), cervical Reviewed all diagnostics surgery referrals laboratory Answer all questions Ice not heat , Rest with periods of walking. Prescription sent to pharmacy take as directed. All risk and benefits were discussed with patient. Reviewed prior diagnostics, labs consult prior treatments medications, d/w need for physical therapy and pain management Patient verbalized understanding agrees with plan of care Enc weight loss walking * Assessment & Plan Note - Xena Valencia NP - 11/27/2018 7:19 AM CDTAssociated Problem(s): Benign neoplasm of large intestine (Resolved 11/05/2020) Reviewed all diagnostics surgery referrals laboratory Answer all questions Fu gi as directed * Assessment & Plan Note - Xena Valencia NP - 11/27/2018 7:19 AM CDTAssociated Problem(s): Abnormal findings on diagnostic imaging of lung (Resolved 02/24/2022) Reviewed all diagnostics surgery referrals laboratory Answer all questions Consider repeat ct lung one year documented in this encounter Plan of Treatment Not on file documented as of this encounter Procedures Procedure Name Priority Date/Time Associated Diagnosis Comments URINALYSIS AND REFLEX TO MICROSCOPIC AND CULTURE Routine 11/21/2018 3:00 PM CDT Type 2 diabetes mellitus with other circulatory complication, with long-term current use of insulin (CMS/HCC) URINALYSIS, MICROSCOPIC ONLY Routine 11/21/2018 3:00 PM CDT Type 2 diabetes mellitus with other circulatory complication, with long-term current use of insulin (CMS/HCC) EGFR Routine 11/21/2018 2:59 PM CDT Atherosclerosis of aorta (CMS/HCC) DIFFERENTIAL AUTO Routine 11/21/2018 2:5 9 PM CDT Hemorrhoids, unspecified hemorrhoid type Anal fissure CBC WITH AUTO DIFFERENTIAL Routine 11/21/2018 2:59 PM CDT Hemorrhoids, unspecified hemorrhoid type Anal fissure ERYTHROCYTE SEDIMENTATION RATE Routine 11/21/2018 2:59 PM CDT Hemorrhoids, unspecified hemorrhoid type Anal fissure Acute right-sided thoracic back pain TSH Routine 11/21/2018 2:59 PM CDT Abnormal results of thyroid function studies Morbid obesity (CMS/HCC) Acute right-sided thoracic back pain CREATINE KINASE (CK), TOTAL Routine 11/21/2018 2:59 PM CDT Acute right-sided thoracic back pain LIPID PANEL Routine 11/21/2018 2:59 PM CDT 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 2 diabetes mellitus (CMS/HCC) COMPREHENSIVE METABOLIC PANEL Routine 11/21/2018 2:59 PM CDT Atherosclerosis of aorta (CMS/HCC) documented in this encounter Results * CT [...] IMG CT PROCEDURES Fi nal Result * (ABNORMAL) Urinalysis, microscopic only (11/21/2018 3:00 PM CDT) WBC, ur 0-5 0 - 5 /HPF [facility] RBC, ur 0-2 0 - 2 /HPF [facility] Epithelial cells, squamous, ur 11-20(A) 0 - 5 /HPF [facility] Bacteria, ur Trace(A) [facility] Urine 11/21/2018 3:00 PM CDT 11/21/2018 3:11 PM CDT us Xena Valencia MANAGER INSTALLATION LAB URINE ORDERABLES Final Result [facility] [address] [facility] [place] [address] * (ABNORMAL) Urinalysis reflex to microscopic and culture Urine (11/21/2018 3:00 PM CDT) Color, ur Yellow Yellow [facility] Clarity, ur Clear Clear [facility] Specific gravity, ur 1.020 1.010 - 1.025 [facility] pH, urine 5.5 [facility] Protein, ur ql 1+(A) Negative [facility] Glucose, ur ql Negative Negative [facility] Ketones, ur Negative Negative [facility] Bilirubin, ur Negative Negative [facility] Blood, ur Negative Negative [facility] Urobilinogen, ur 0.2 <2.0 mg/dL [facility] Nitrite, ur Negative Negative [facility] Leukocyte esterase, ur Negative Negative [facility] Urine 11/21/2018 3:00 PM CDT 11/21/2018 3:11 PM CDT Narrative [facility] - 11/21/2018 3:16 PM CDT ?? Urine pH is affected by diet, medications, systemic acid-base disturbances, and renal tubular function. ??pH may affect urinary stone formation. ??For example, urine pH below 6.0 may help reduce the tendency for calcium phosphate stones and pH greater than 6.0 may reduce the tendency for uric acid stone formation. Source: [facility] [place]. Last revised 03-02-2017 Xena Valencia NP LAB MICROBIOLOGY - G ENERAL ORDERABLES Final Result Performing Organization Address City/[facility] Co de Phone Number T[facility] MOORE[facility] [address] [place] [address] * eGFR (11/21/2018 2:59 PM CDT) eGFR >60 mL/min/1.7 3 m2 [facility] Comment: Interpretive Data Reference Interval Normal ?>/= 90 mL/min/1.73m2 Mildly decreased* ? 60 - 89 mL/min/1.73m2 Mildly to moderately decreased ?45 - 59 mL/min/1.73m2 Moderately to severely decreased ??30 - 44 mL/min/1.73m2 Severely decreased ?15 - 29 mL/min/1.73m2 Kidney Failure ?< 15 ??mL/min/1.73m2 *Relative to young adult level If -Naur[place] multiply value by 1.16. Estimated glomerular filtration [...] was last reviewed 2015. Blood specimen (specimen) 11/21/2018 2:59 PM CDT 11/21/2018 3:08 PM CDT Xena Valencia NP LAB BLOOD ORDERABLES Final Result Performing Organization Address City/[facility] Co de Phone Number TAYLOR JONESWCH [address] [place] [address] * Differential, auto (11/21/2018 2:59 PM CDT) Neutrophil abs 6.3 1.7 - 6.5 K/cumm [facility] Imm gran abs 0.0 0.0 - 0.1 K/cumm [facility] Lymphocyte abs 1.5 0.8 - 3.3 K/cumm [facility] Monocyte abs 0.8 0.2 - 0.8 K/cumm [facility] Eosinophil abs 0.1 0.0 - 0.5 K/cumm [facility] Basophil abs 0.0 0.0 - 0.1 K/cumm [facility] Neutrophil pct 72.1 % [facility] Comment: Interpretive Data Percent cell count reference ranges are not reported, since discordance with absolute values may lead to misinterpretation of CBC data. Current Interpretive Data was last revised on 2017. Imm gran pct 0.6 % [facility] Comment: Interpretive Data Percent cell count reference ranges are not reported, since discordance with absolute values may lead to misinterpretation of CBC data. Current Interpretive Data was last revised on 2017. Lymphocyte pct 16.6 % [facility] Comment: Interpretive Data Percent cell count reference ranges are not reported, since discordance with absolute values may lead to misinterpretation of CBC data. Current Interpretive Data was last revised on 2017. Monocyte pct 9.5 % [facility] Comment: Interpretive Data Percent cell count reference ranges are not reported, since discordance with absolute values may lead to misinterpretation of CBC data. Current Interpretive Data was last revised on 2017. Eosinophil pct 0.7 % [facility] Comment: Interpretive Data Percent cell count reference ranges are not reported, since discordance with absolute values may lead to misinterpretation of CBC data. Current Interpretive Data was last revised on 2017. Basophil pct 0.5 % [facility] Comment: Interpretive Data Percent cell count reference ranges are not reported, since discordance with absolute values may lead to misinterpretation of CBC data. Current Interpretive Data was last revised on 2017. Blood specimen (specimen) 11/21/2018 2:59 PM CDT 11/21/2018 3:08 PM CDT Xena Valencia MANAGER INSTALLATION LAB BLOOD ORDERABLES Final Result Performing Organization Address [facility] de Phone Number [facility] [address] [place] [address] * Creatine kinase (CK), total (11/21/2018 2:59 PM CDT) CK 113 40 - 300 Units/L [facility] Blood specimen (specimen) 11/21/2018 2:59 PM CDT 11/21/2018 3:08 PM CDT Xena Valencia MANAGER INSTALLATION LAB BLOOD ORDERABLES Final Result Performing Organization Address [facility] Phone Number [facility] [address], [place] [phone] * TSH (11/21/2018 2:59 PM CDT) Thyroid Stimulating Hormone 1.89 0.30 - 4.20 mcIUnit/mL [facility] Blood specimen (specimen) 11/21/2018 2:59 PM CDT 11/21/2018 3:08 PM CDT Xena Valencia MANAGER INSTALLATION LAB BLOOD ORDERABLES Final Result Performing Organization Address [facility] de Phone Number [facility] [address] [place] [phone] * (ABNORMAL) Lipid panel (11/21/2018 2:59 PM CDT) Cholesterol 106 30 - 199 mg/dL [facility] Comment: Interpretive Data Ages < or = [...] Data was last revised on 2017. Triglycerides 120 <=149 mg/dL [facility] Comment: Interpretive Data [...] Data was last revised on 2017. HDL 39(L) >=40 mg/dL [facility] Comment: Interpretive Data [...] was last revised on 2017. LDL, calculated 43 <=129 mg/dL [facility] Comment: Interpretive Data [...] was last revised on 2017. Non-HDL Cholesterol 67 mg/dL [facility] Comment: Interpretive Data Ages [...] ratio 3 [facility] Blood specimen (specimen) 11/21/2018 2:59 PM CDT 11/21/2018 3:08 PM CDT Xena Valencia MANAGER INSTALLATION LAB BLOOD ORDERABLES Final Result Performing Organization Address City/[facility] Co de Phone Number TAYLOR ZUNIGA [address] [address] [place] [phone] * Erythrocyte sedimentation rate (11/21/2018 2:59 PM CDT) Erythrocyte sedimentation rate 16 1 - 20 mm/hr [facility] Blood specimen (specimen) 11/21/2018 2:59 PM CDT 11/21/2018 3:08 PM CDT Xena WoodsAdán MANAGER INSTALLATION LAB BLOOD ORDERABLES Final Result Performing Organization Address [facility] de Phone Number TAYLOR ZUNIGA [address] [address] [place] [address] * Comprehensive metabolic panel (11/21/2018 2:59 PM CDT) Sodium 138 135 - 145 mmol/L [facility] Potassium, pl 4.1 3.3 - 4.9 mmol/L [facility] Chloride 98 97 - 110 mmol/L [facility] CO2 25 22 - 32 mmol/L [facility] Anion gap 15 2 - 15 mmol/L [facility] BUN 14 8 - 25 mg/dL [facility] Creatinine 0.90 0.80 - 1.30 mg/dL [facility] Glucose 163 70 - 199 mg/dL [facility] Comment: Interpretive Data Fasting glucose >/= 126 [...] interpretive data was last revised 2017. Calcium 9.8 8.5 - 10.3 mg/dL [facility] Bilirubin, total 0.6 0.1 - 1.2 mg/dL [facility] Protein, pl 7.6 6.5 - 8.5 g/dL [facility] Albumin 4.5 3.5 - 5.0 g/dL [facility] Alk phos 71 40 - 130 Units/L [facility] ALT 34 7 - 55 Units/L [facility] AST 33 10 - 50 Units/L [facility] Blood specimen (specimen) 11/21/2018 2:59 PM CDT 11/21/2018 3:08 PM CDT us Xena Valencia MANAGER INSTALLATION LAB BLOOD ORDERABLES Final Result [facility] [address] [place] [address] * CBC with auto differential (11/21/2018 2:59 PM CDT) Pathologist [facility] WBC 8.8 3.8 - 9.9 K/cumm [facility] Hgb 14.1 13.0 - 17.5 g/dL [facility] Hct 43.3 38.9 - 50.3 % [facility] Plt 314 150 - 400 K/cumm [facility] MPV 10.6 9.1 - 12.3 fL [facility] RBC 4.66 4.30 - 5.80 M/cumm [facility] MCV 92.9 81.3 - 96.4 fL [facility] MCH 30.3 27.1 - 33.3 pg [facility] MCHC 32.6 32.3 - 35.7 g/dL [facility] RDW CV 12.9 11.1 - 14.9 % [facility] RDW SD 44.2 35.7 - 48.1 fL [facility] NRBC abs 0.00 0.00 - 0.01 K/cumm [facility] Blood specimen (specimen) 11/21/2018 2:59 PM CDT 11/21/2018 3:08 PM CDT us Xena Valencia MANAGER INSTALLATION LAB BLOOD ORDERABLES Final Result [facility] [address] [place] [address] documented in this encounter Visit Diagnoses Diagnosis Medicare annual wellness visit, subsequent- Primary Atherosclerosis of aorta (HCC) Atherosclerosis of aorta Adrenal cyst (HCC) Other specified disorders of adrenal glands 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, with long-term current use of insulin (HCC) 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) Hypertension associated with diabetes (HCC) Unspecified essential hypertension Type 2 diabetes mellitus with other circulatory complication, with long-term current use of insulin (HCC) Morbid obesity (HCC) Morbid obesity Hemorrhoids, unspecified hemorrhoid type Anal fissure Renal cyst, acquired, right DDD (degenerative disc disease), thoracolumbar Degeneration of thoracic or thoracolumbar intervertebral disc Screening for colon cancer Special screening for malignant neoplasms, colon Coronary artery disease involving [place] coronary artery of [place] heart without angina pectoris Family history of colon cancer Family history of malignant neoplasm of gastrointestinal tract Herpes simplex virus (HSV) infection Benign neoplasm of colon, unspecified part of colon Vitamin D deficiency DDD (degenerative disc disease), cervical Degeneration of cervical intervertebral disc Abnormal findings on diagnostic imaging of lung Acute right-sided thoracic back pain Abnormal results of thyroid function studies Nonspecific abnormal results of thyroid function study BMI 36.0-36.9,adult Abnormal findings on diagnostic imaging of lung Acute right-sided thoracic back pain documented in this encounter Discontinued Medications Medication Sig Discontinue Reason Start Date End Da te XULTOPHY 100/3.6 100 unit-3.6 mg /mL (3 mL) insulin penIndications:Type 2 diabetes mellitus with diabetic mononeuropathy, with long-term current use of insulin ([facility]) INJECT 24 UNITS UNDER THE SKIN DAILY. Reorder 04/16/2018 11/21/2018 simvastatin (ZOCOR) 40 mg tablet Take 1 tablet (40 mg total) by mouth nightly. Reorder 04/11/2018 11/21/2018 pen needle, diabetic (PEN NEEDLE) 31 gauge x 1/4 needle Inject 1 pen under the skin daily. Reorder 02/15/2018 11/21/2018 ONETOUCH VERIO strip TEST TWICE DAILY DIRECTED BEFORE A MEAL Reorder 09/05/2018 11/21/2018 metoprolol (LOPRESSOR) 50 mg tablet TAKE 2 TABLETS AT LUNCH AND 1 TABLET AT BEDTIME Reorder 10/25/2018 11/21/2018 metFORMIN XR (GLUCOPHAGE XR) 500 mg 24 hr tablet Take 2 tablets (1,000 mg total) by mouth daily with breakfast Reorder 05/16/2018 11/21/2018 lancets (onetouch ultrasoft) misc test by by finger stick route 3 times every day Reorder 06/30/2011 11/21/2018 irbesartan-hydroCHLOROt hiazide (AVALIDE) 300-12.5 mg per tabletIndications:hyper tension Take 1 tablet by mouth daily. Reorder 02/15/2018 11/21/2018 acyclovir (ZOVIRAX) 400 mg tablet TAKE 1 TABLET BY MOUTH TWO TIMES DAILY Reorder 06/12/2018 11/21/2018 documented as of this encounter Orders Immunization/Injection Count Last Ordered Date First Ordered Date FLU VACCINE HD TRI PF 65Y+ IM 1 11/21/2018 documented in this encounter Care Teams Chief Ii Dispatcher Relationship Specialty Start Date End Date Rickey Do MD PCP - General 05/20/16 11/08/20 documented as of this encounter
--- OUTSIDE RECORDS SUMMARY | 2024-02-10 01:52 | XMS_ITS | Encounter Summary ---
Author Organization [facility] Care Team Providers Care Business Services Director Name Role Phone Rickey Do MD Primary Care Provider Encounter Details Date Type Department Care Team (Latest Contact Info) Description 05/16/2018 Travel Social History Tobacco Use Types Packs/Day Years Used Date Smoking Tobacco: Former Cigarettes 1 15 Smokeless Tobacco: Never Comments:Smoking History Pac ks/day: 1 Packs Alcohol Use Standard Drinks/Week Comments Yes 0 (1 standard drink = 0.6 oz pur e alcohol) Sex and Gender Information Value Date Recorded Sex Assigned at Not on file 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
--- OUTSIDE RECORDS SUMMARY | 2024-02-10 01:52 | XMS_ITS | Encounter Summary ---
Author Organization [facility] Address [address] [place] [address] Care Team Providers Care Physicians Assistant Name Role Phone Rickey Armando MD Primary Care Provider [phone] Reason for Visit * Reason Onset Date Comments dr armando medical question 03/12/2018 Encounter Details Date Type Department Care Team (Late st Contact Info) Description 03/12/2018 Telephone [facility] [address] [place] [phone] Rickey Armando MD [address] [facility] [place] [phone] dr armando medical question Social History Tobacco Use Types Packs/Day Years Used Date Smoking Tobacco: Former Cigarettes 1 15 Smokeless Tobacco: Never Comments:Smoking History Pac ks/day: 1 Packs Alcohol Use Standard Drinks/Week Comments Yes 0 (1 standard drink = 0.6 oz pur e alcohol) Sex and Gender Information Value Date Recorded Sex Assigned at Not on file Legal Sex Male 11:37 AM ASSISTANT DIRECTOR OF FINANCIAL AID Gender Identity Not on file Sexual Orientation Not on file 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 Pt has not had Shingrex vaccine first or second dose according to our records. STANT DIRECTOR OF FINANCIAL AID * Telephone Encounter - Xena Valencia NP - 03/12/2018 8:59 AM ASSISTANT DIRECTOR OF FINANCIAL AID Verify and call pharmacy STANT DIRECTOR OF FINANCIAL AID * Telephone Encounter - Tanika Bruno - 03/12/2018 8:50 AM CST Shellie at [facility] pharmacy calling to verify that patient received first dose of Shingrix vaccination. Patient is requesting second dose of Shingrix and wants to be put on waiting list. Shellie wants to verify that patient did get first dose. Please call Shellie at [phone]. STANT DIRECTOR OF FINANCIAL AID documented in this encounter Plan of Treatment Not on file documented as of this encounter Visit Diagnoses Not on filedocumented in this encounter Care Teams Physicians Assistant Relationship Specialty Start Date End Date Rickey Armando MD PCP - General 05/20/16 11/08/20 documented as of this encounter
--- OUTSIDE RECORDS SUMMARY | 2024-02-10 01:52 | XMS_ITS | Encounter Summary ---
Author Organization [facility] Address [address] [place] [address] Care Team Providers Care Script Coordinator Name Role Phone Rickey Do MD Primary Care Provider [phone] Reason for Visit * Reason Comments Follow-up Encounter Details Date Type Department Care Team (Late st Contact Info) Description 08/10/2018 11:45 AM CDT Office Visit [facility] [address] [place] [address] Felice Torrez MD [address] [place] [address] [address] [place] [address] Anal fissure (Primary Dx) Social [...] on file 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 Gender Identity Not on file Sexual Orientation Not on file 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 He has no pain with bowel movements, nor is he having any bleeding. The perianal skin is normal, with no rashes or skin lesions.There are no thrombosed external hemorrhoids, prolapsed internal hemorrhoids, skin tags, fissures or fistulas. Digital rectal exam had normal sphincter tone, with no masses or tenderness. Anoscopy isdocumented separately. Mr Santos's acute fissure does seem to have healed. He may continue with the topical calcium channelblockers until the course is finished. I will see him back in 2 weeks if he is still symptomatic. documented in this encounter Procedure Notes * Felice Torrez MD - 08/10/2018 11:45 AM CDT Procedure Note: Anoscopy Procedure Note Indication for Procedure: Encounter Diagnosis Name Primary? Anal fissure Yes Findings: I do not see a persistent fissure. There is some contact bleeding from a hemorrhoid on the left. Felice Torrez MD documented in this encounter Plan of Treatment Not on file documented as of this encounter Visit Diagnoses Diagnosis Anal fissure- Primary documented in this encounter Care Teams Script Coordinator Relationship Specialty Start Date End Date Rickey Do MD PCP - General 05/20/16 11/08/20 documented as of this encounter
--- OUTSIDE RECORDS SUMMARY | 2024-02-10 01:52 | XMS_ITS | Encounter Summary ---
Author Organization [facility] Care Team Providers Care Tableau Developer Name Role Phone Rickey Do MD Primary Care Provider [phone] Encounter Details Date Type Department Care Team (Latest Contact Info) Description 09/10/2018 Travel Social History Tobacco Use Types Packs/Day Years Used Date Smoking Tobacco: Former Cigarettes 1 15 Smokeless Tobacco: Never Comments:Smoking History Pac ks/day: 1 Packs Alcohol Use Standard Drinks/Week Comments Yes 0 (1 standard drink = 0.6 oz pur e alcohol) Sex and Gender Information Value Date Recorded Sex Assigned at Not on file 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
--- OUTSIDE RECORDS SUMMARY | 2024-02-10 01:52 | XMS_ITS | Encounter Summary ---
Author Organization [facility] Care Team Providers Care Automobile Mechanic Supervisor Name Role Phone Rickey Do MD Primary Care Provider [phone] Encounter Details Date Type Department Care Team (Latest Contact Info) Description 08/10/2018 Travel Social History Tobacco Use Types Packs/Day Years Used Date Smoking Tobacco: Former Cigarettes 1 15 Smokeless Tobacco: Never Comments:Smoking History Pac ks/day: 1 Packs Alcohol Use Standard Drinks/Week Comments Yes 0 (1 standard drink = 0.6 oz pur e alcohol) Sex and Gender Information Value Date Recorded Sex Assigned at Not on file 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
--- OUTSIDE RECORDS SUMMARY | 2024-02-10 01:52 | XMS_ITS | Encounter Summary ---
Author Organization [facility] Address [address] [place] [address] Care Team Providers Care Registered Nurse Renal Name Role Phone Rickey Do MD Primary Care Provider [phone] Reason for Visit * Reason Onset Date Comments Dr Do-General Medical Question 09/17/2018 Encounter Details Date Type Department Care Team (Late st Contact Info) Description 09/17/2018 Telephone [facility] [address] [place] [address] Rickey Do MD [address] [place] [id number] Dr Do-General Medical Question Social History Tobacco Use Types [...] on file 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 I gave patient the billing office number to advise them, gave patient [employer] customer service help desk and transferred, and advised if he is ever awaiting results from the office to contact the office since providers within the office will sometimes correspond solely through [employer]. Patient verbalized understanding. documented in this encounter Plan of Treatment Not on file documented as of this encounter Visit Diagnoses Not on filedocumented in this encounter Care Teams Registered Nurse Renal Relationship Specialty Start Date End Date Rickey Do MD PCP - General 05/20/16 11/08/20 documented as of this encounter
--- OUTSIDE RECORDS SUMMARY | 2024-02-10 01:52 | XMS_ITS | Encounter Summary ---
Author Organization [facility] Address [address] [place] [address] Care Team Providers Care Stone Processing Machine Operator Name Role Phone Rickey Do MD Primary Care Provider [phone] Reason for Visit * Reason Comments Follow-up Encounter Details Date Type Department Care Team (Late st Contact Info) Description 07/26/2018 1:00 PM CDT Office Visit [facility] [address] [place] [address] Hali Wu MD [address] [place] [address] [address] [place] [address] Anal fissure (Primary Dx) Social [...] on file 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 Gender Identity Not on file Sexual Orientation Not on file 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 Torrez Subjective: Ayden Santos is a 72 y.o. male s/p hemorrhoidal banding with Dr. Torrez. He did well until 3 weeks ago in terms of bleeding, but then developed increasing burning pain, especially with bowel movements. He does have bleeding associated with it. Here today due to unrelenting symptoms. Past Medical History: Diagnosis Date ??? Adiposity obesity ??? Colon polyp ??? Diabetes mellitus (CMS/HCC) Diabetes ??? Diabetes mellitus (CMS/HCC) diabetes mellitus ??? HX OTHER MEDICAL Herpes Simplex Virus ??? HX OTHER MEDICAL Colon polyps, hemorrhoidectomy ??? HX OTHER MEDICAL Elevated PSA ??? Hyperlipidemia Hyperlipidemia ??? Hypertension Hypertension ??? Sleep apnea Sleep apnea Past Surgical History: Procedure Laterality Date ??? CYSTOSCOPY ??? OTHER SURGICAL HISTORY 2004 Colon polyps, hemorrhoidectomy: colonoscopy with biopsy ??? OTHER SURGICAL HISTORY 2005 Elevated PSA: survellience biopsy ??? TONSILLECTOMY Tonsillectomy (Not in a hospital admission) HOME MEDICATIONS : acyclovir (ZOVIRAX) 400 mg tablet aspirin 81 mg enteric coated tablet blood glucose diagnostic (ONETOUCH VERIO) strip cholecalciferol (VITAMIN D-3) 2,000 unit capsule coenzyme Q10 (COQ-10) 100 mg capsule irbesartan-hydroCHLOROthiazide (AVALIDE) 300-12.5 mg per tablet lancets (onetouch ultrasoft) misc metFORMIN XR (GLUCOPHAGE XR) 500 mg 24 hr tablet metoprolol (LOPRESSOR) 50 mg tablet nitroglycerin (NITROSTAT) 0.4 mg SL tablet pen needle, diabetic (PEN NEEDLE) 31 gauge x 1/4 needle simvastatin (ZOCOR) 40 mg tablet XULTOPHY 100/3.6 100 unit-3.6 mg /mL (3 mL) insulin pen Physical exam: Vitals: Afebrile, vital signs stable General Exam: No acute distress. Well developed. HEENT: Normocephalic. No scleral icterus. Neck: Supple without lymphadenopathy Cardiovascular: Regular rhythm and rate Chest: Unlabored breathing Abdomen: Soft, nontender, nondistended. Anoperineal exam: Posterior left lateral anal fissure (just off of midline) Musculoskeletal: No deformities. Neurological: Normal gait, no deficits Integumentary: No rashes Psychiatric: Normal mood and affect Assessment/Plan Ayden Santos is a 72 y.o. male s/p hemorrhoidal banding with acute fissure Anal Fissure: The etiology and natural history of anal fissures were discussed in detail. An informational handout was given to the patient which included information on a high-fiber diet. I discussed using Metamucil fiber in addition to MiraLax to treat constipation. I also stressed importance of narcotic avoidance and using NSAIDs for pain control. Lastly, a prescription for nifedipine ointmentwas sent to the pharmacy. The patient will follow up with Dr. Torrez to ensure resolution of symptoms. Hali Wu MD [facility] Colorectal Surgery [phone] 1:34 PM documented in this encounter Plan of Treatment Not on file documented as of this encounter Visit Diagnoses Diagnosis Anal fissure- Primary documented in this encounter Care Teams Stone Processing Machine Operator Relationship Specialty Start Date End Date Rickey Do MD PCP - General 05/20/16 11/08/20 documented as of this encounter
--- OUTSIDE RECORDS SUMMARY | 2024-02-10 01:52 | XMS_ITS | Encounter Summary ---
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 Male 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 Gender Identity Not on file Sexual Orientation Not on file 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 His symptoms are intermittent, but persistent. The procedure was reviewed, including risks of bleeding, pain, and transient incontinence. Injection was done as per the separate procedure note. He will follow up with me in 6-8 weeks if he is still symptomatic. documented in this encounter Procedure Notes * Felice Torrez MD - 09/28/2018 11:30 AM CDT Procedure Note Botox Injection for Anal Fissure Indication: Encounter Diagnosis Name Primary? Anal fissure Yes Description of Procedure: Risks and benefits were explained in detail. Questions were encouraged and answered. Anesthesia: None 100 Units of botulinum toxin A was injected into the internal sphincter muscle under direct vision. Post procedure: The patient tolerated the procedure well. Patient discharged in stable condition. Follow up: as needed Felice Torrez MD documented in this encounter Plan of Treatment Not on file documented as of this encounter Visit Diagnoses Diagnosis Anal fissure- Primary documented in this encounter Discontinued Medications Medication Sig Discontinue Reason Start Date End Da te aspirin 81 mg enteric coated tablet Take 81 mg by mouth daily Patient Discharge 09/28/2018 nitroglycerin (NITROSTAT) 0.[address] 1 tablet by sublingual route at the 1st sign of attack; may repeat every 5 min until relief; if pain persists after 3 tablets in 15 min, prompt medical attention is recommended Patient Discharge 02/27/2015 09/28/2018 documented as of this encounter Historical Medications * This list may reflect changes made after this encounter. Medication Sig Dispense Quantity Refills Last Filled Start D ate End Date BOTOX 100 unit recon soln 09/25/2018 09/04/2019 added in this encounter Care Teams Innersole Fitter Relationship Specialty Start Date End Date Rickey Do MD PCP - General 05/20/16 11/08/20 documented as of this encounter
--- OUTSIDE RECORDS SUMMARY | 2024-02-10 01:52 | XMS_ITS | Encounter Summary ---
Author Organization [facility] Address [address] [place] [address] Care Team Providers Care Cycle Repairer Name Role Phone Rickey Do MD Primary Care Provider [phone] Reason for Visit * Reason Onset Date Comments ct scan results 12/21/2018 Encounter Details Date Type Department Care Team (Late st Contact Info) Description 12/21/2018 Telephone [facility] Cardiology [address] [place] [address] Farrukh Jiménez MD [address] [place] [address] [address] [place] [address] ct scan results Social History Tobacco Use Types Packs/Day Years [...] on file 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 Relayed response from Dr Jiménez. Pt verbalized understanding. * Telephone Encounter - Farrukh Jiménez MD - 12/21/2018 12:44 PM CDT Reviewed. Shows plaque in coronary arteries--we already knew this. Cont same meds for this. thx. * Telephone Encounter - Alda Fallon - 12/21/2018 12:29 PM CDT Pt called and stated that he had a ct scan at [facility] on 12/17/18. Pt is asking for you to review the results and give further recommendations if needed. Please advise documented in this encounter Plan of Treatment Not on file documented as of this encounter Visit Diagnoses Not on filedocumented in this encounter Care Teams Cycle Repairer Relationship Specialty Start Date End Date Rickey Do MD PCP - General 05/20/16 11/08/20 documented as of this encounter
--- OUTSIDE RECORDS SUMMARY | 2024-02-10 01:52 | XMS_ITS | Encounter Summary ---
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
--- OUTSIDE RECORDS SUMMARY | 2024-02-10 01:52 | XMS_ITS | Encounter Summary ---
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
--- OUTSIDE RECORDS SUMMARY | 2024-02-10 01:52 | XMS_ITS | Encounter Summary ---
Author Organization [facility] Care Team Providers Care Check Airman Name Role Phone Rickey Do MD Primary Care Provider Encounter Details Date Type Department Care Team (Latest Contact Info) Description 09/28/2018 Travel Social History Tobacco Use Types Packs/Day Years Used Date Smoking Tobacco: Former Cigarettes 1 15 Smokeless Tobacco: Never Comments:Smoking History Pac ks/day: 1 Packs Alcohol Use Standard Drinks/Week Comments Yes 0 (1 standard drink = 0.6 oz pur e alcohol) Sex and Gender Information Value Date Recorded Sex Assigned at Not on file Legal Sex Male 11:37 AM EDUCATION INTERN Gender Identity Not on file Sexual Orientation Not on file 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
--- OUTSIDE RECORDS SUMMARY | 2024-02-10 01:53 | XMS_ITS | Encounter Summary ---
Author Organization [facility] Address [address] [facility] [address] [place] [address] Care Team Providers Care Powersaw Supervisor Name Role Phone Rickey Do MD Primary Care Provider [phone] Reason for Referral * Diagnostic Imaging (Routine) - Closed Specialty Diagnoses / Procedures Referred By Jp buckner Referred To Contact Diagnoses Left ankle swelling Procedures XR Ankle Left 2 Views Xena Valencia NP Phone: tel: fax: [address] [place] [address] Referral ID Status Reason Start Date Expiration Date Visits Re quested Visits Authorized [id number] Closed 02/15/2018 08/27/2019 1 1 LIATE MARKETING MANAGER Reason for Visit * Reason Comments Diabetes Encounter Details Date Type Department Care Team (Late st Contact Info) Description 02/15/2018 10:00 AM AFFILIATE MARKETING MANAGER Office Visit [facility] [address] [facility] [address] [place] [address] Xena Valencia NP [facility] [facility] [place] [address] Hypertension associated with diabetes (CMS/HCC) (Primary Dx); Type 2 diabetes mellitus with other circulatory complication, with long-term current use of insulin ([facility]); 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 2 diabetes mellitus ([facility]); Type 2 diabetes mellitus with diabetic mononeuropathy, with long-term current use of insulin ([facility]); Peripheral neuropathy due to disorder of metabolism ([facility]); Morbid obesity ([facility]); Coronary artery disease involving chickahominy indian tribe coronary artery of chickahominy indian tribe heart without angina pectoris; Atherosclerosis of aorta ([facility]); Left ankle swelling; RUQ pain; BMI 36.0-36.9,adult Social History Tobacco Use Types Packs/Day Years Used Date Smoking Tobacco: Former Cigarettes 1 15 Smokeless Tobacco: Never Comments:Smoking History Pac ks/day: 1 Packs Alcohol Use Standard Drinks/Week Comments Yes 0 (1 standard drink = 0.6 oz pur e alcohol) Sex and Gender Information Value Date Recorded Sex Assigned at Not on file Legal Sex Male 11:37 AM AFFILIATE MARKETING MANAGER Gender Identity Not on file Sexual Orientation Not on file 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 Not on file documented as of this encounter Last Filed Vital Signs Vital Sign Reading Time Taken Comments Blood Pressure 140/70 02/15/2018 9:40 AM AFFILIATE MARKETING MANAGER Pulse 81 02/15/2018 9:40 AM AFFILIATE MARKETING MANAGER Temperature - - Respiratory Rate - - Oxygen Saturation 98% 02/15/2018 9:40 AM AFFILIATE MARKETING MANAGER Inhaled Oxygen Concentration - - Weight 117.9 kg (260 lb) 02/15/2018 9:40 AM AFFILIATE MARKETING MANAGER Height 180.3 cm (5' 11 ) 02/15/2018 9:40 AM AFFILIATE MARKETING MANAGER Body Mass Index 36.26 02/15/2018 9:40 AM AFFILIATE MARKETING MANAGER documented in this encounter Patient Instructions * Patient Instructions* Xena Valencia NP - 02/15/2018 10:00 AM AFFILIATE MARKETING MANAGER Reduce the synjardy to 12.06/999 once a day Send your blood pressure and blood sugar reading in my chart every other day so I can adjust the xultophy Double the irbesartan 150/12.5 two pills each morning Metoprolol take 2 at lunch 1 at bedtime LIATE MARKETING MANAGER LIATE MARKETING MANAGER documented in this encounter Ordered Prescriptions Prescription Sig Dispense Quantity Refills Last Filled Start Date End Date pen needle, diabetic (PEN NEEDLE) 31 gauge x 1/4 needle Inject 1 pen under the skin daily. 100 each 3 02/15/2018 11/21/2018 blood glucose diagnostic (ONETOUCH VERIO) stripIndications:d m neuropathy circulatory etd 1 each by other route as directed. Bid ac 100 each 3 02/15/2018 09/05/2018 irbesartan-hydroCH LOROthiazide (AVALIDE) 300-12.5 mg per tabletIndications: hypertension Take 1 tablet by mouth daily. 90 tablet 3 02/15/2018 11/21/2018 pen needle, diabetic (PEN NEEDLE) 31 gauge x 1/4 needle Inject 1 pen under the skin daily. 100 each 3 02/15/2018 02/15/2018 empagliflozin-metf ormin (SYNJARDY XR) 12.5-1,000 mg tablet, IR & ER, biphasic 24hrIndications:ty pe 2 diabetes mellitus Take 1 tablet by mouth daily. 90 tablet 1 02/15/2018 05/02/2018 documented in this encounter Progress Notes * Xena Valencia NP - 02/15/2018 10:00 AM CST Subjective/Objective Patient ID: Ayden Santos is a 72 y.o. male. Chief Complaint Diabetes 72 yo cm presents Diabetes smbg log was scanned into chart Has multiple postprandial excursions and postprandial are below 150 He is not eating routine meals or sticking to plate method Has not participated in exercise routine Denies hypoglycemia Checks feet nightly Last eye exam noted htn takes meds as rx Denies cp sob le edema vertigo pnd orthopnea Lipid takes meds as rx Denies myalgia weakness dark tea colored urine Current Outpatient Prescriptions: ??? acyclovir (ZOVIRAX) 400 mg tablet, TAKE 1 TABLET BY MOUTH TWO TIMES DAILY, Disp: 180 tablet, Rfl: 2 ??? aspirin (BABY ASPIRIN) 81 mg chewable tablet, chew 1 tablet (81MG) by oral route every day, Disp: , Rfl: 0 ??? blood glucose diagnostic (ONETOUCH VERIO) strip, 1 each by other route as directed. Bid ac, Disp: 100 each, Rfl: 3 ??? cholecalciferol (VITAMIN D3) 1,000 unit capsule, one daily, Disp: , Rfl: 0 ??? coenzyme Q10 (COQ-10) 100 mg capsule, take 3 by Oral route every evening, Disp: 0, Rfl: 0 ??? insulin degludec-liraglutide 100 unit-3.6 mg /mL (3 mL) insulin pen, Inject 28 Units under the skin daily., Disp: 9 Syringe, Rfl: 3 ??? irbesartan-hydrochlorothiazide (AVALIDE) 150-12.5 mg per tablet, Take 1 tablet by mouth daily.,Disp: 90 tablet, Rfl: 3 ??? lancets (onetouch ultrasoft) misc, test by by finger stick route 3 times every day, Disp: 300, Rfl: 8 ??? metoprolol (LOPRESSOR) 50 mg tablet, TAKE 1 TABLET BY MOUTH 3 TIMES A DAY. (TAKE 2 TABLETS AT LUNCH AND ONE TABLET AT BEDTIME), Disp: 30 tablet, Rfl: 0 ??? nitroglycerin (NITROSTAT) 0.4 [...] 100 each, Rfl: 3 ??? simvastatin (ZOCOR) 20 mg tablet, Take 1 tablet (20 mg total) by mouth nightly., Disp: 90 tablet, Rfl: 3 ? ? empagliflozin-metformin (SYNJARDY XR) 12.5-1,000 mg tablet, IR & ER, biphasic 24hr, Take 1 tablet by mouth daily., Disp: 90 tablet, Rfl: 1 ??? FLUZONE HIGH-DOSE , PF, 180 mcg/0.5 mL syringe, Inject 1 application into the muscle as instructed once., Disp: , Rfl: 0 ??? irbesartan-hydroCHLOROthiazide (AVALIDE) 300-12.5 mg per tablet, Take 1 tablet by mouth daily.,Disp: 90 tablet, Rfl: 3 Allergies Allergen Reactions [...] Influenza, Unspecified 11/21/2016, 11/20/2017 ??? Pneumococcal Conjugate 13-Valent (PREVNAR) 07/22/2014 ??? Pneumococcal Polysaccharide 23-Valent (PNEUMOVAX) 11/29/2001, 12/12/2009, 11/29/2010 ??? Td 02/16/2000 ??? [...] heat intolerance, polydipsia, polyphagia and polyuria. Genitourinary: Positive for frequency and urgency. Negative for decreased urine volume, difficulty urinating, discharge, dysuria, enuresis, flank pain, genital sores, hematuria, penile pain, penile swelling, scrotal swelling and testicular pain. Musculoskeletal: Negative. Negative for arthralgias, back pain, [...] no distension and no mass. There is tenderness. There is guarding. There is no rebound. No hernia. Musculoskeletal: Normal range of motion. He exhibits no edema, tenderness or deformity. Lymphadenopathy: He has no cervical adenopathy. Neurological: He is alert and oriented to person, place, and time. He has normal reflexes. He displays normal reflexes. A sensory deficit is present. No cranial nerve deficit. He exhibits normal muscle tone. Coordination [...] Sharp/dull discrimination diminished Filament test present BP 140/70 (BP Location: Right arm, Patient Position: Sitting) Pulse 81 Ht 180.3 cm (5' 11 ) Wt 117.9 kg (260 lb) SpO2 98% BMI 36.26 kg/m?? Assessment/Plan Diagnoses and all orders for this visit: Hypertension associated with diabetes (CMS/HCC) (E11.59, I10) (Primary) Assessment & Plan: Hypertension is unchanged. 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 Take medication as prescribed report any dark urine, muscle ache or weakness to your provider Orders: - Lipid panel; Future Type 2 diabetes mellitus with diabetic mononeuropathy, with long-term current use of insulin ([facility]) (E11.41, Z79.4) Assessment & Plan: Stable [...] shoes without socks to avoid skin injury Orders: - Microalbumin, urine, random; Future - Urinalysis reflex to microscopic and culture Urine; Future - Hemoglobin A1c; Future Peripheral neuropathy due to disorder of metabolism ([facility]) (E88.9, G63) Assessment & Plan: Do not go barefoot Wear supportive shoes and sock Never wear shoes without socks Check feet nightly Call for any change Fu podiatry Morbid obesity ([facility]) (E66.01) Assessment & Plan: eat three meals a day same time each day well balance using plate method found at [employer] stay well hydrated with water and walk 5 days a week Coronary artery disease involving chickahominy indian tribe coronary artery of chickahominy indian tribe heart without angina pectoris (I25.10) Assessment & Plan: No change Daily weights call for greater than 3 pds weight gain one day 2g sodium diet Encourage balance nutrition and exercise Fu cardiology Orders: - Lipid panel; Future Atherosclerosis of aorta ([facility]) (I70.0) Assessment & Plan: Reviewed all diagnostics surgery referrals laboratory Answer all questions Reviewed all diagnostics surgery referrals laboratory Answer all questions Control dm htn lipid Call for le weakness abdominal pain fatigue Orders: - Lipid panel; Future Left ankle swelling (M25.472) Assessment & Plan: Ice elevate compression Xray neg some soft tissue swelling If no improvement will order pt or consult orthopedic Orders: - XR Ankle Left 2 Views; Future - Uric acid; Future - Erythrocyte sedimentation rate; Future RUQ pain (R10.11) - Amylase; Future - Lipase; Future BMI 36.0-36.9,adult (Z68.36) Assessment & Plan: BMI Follow-up includes: nutrition counseling, exercise counseling and education provided. Other orders - empagliflozin-metformin (SYNJARDY XR) 12.5-1,000 mg tablet, IR & ER, biphasic 24hr; Take 1 tablet by mouth daily. - irbesartan-hydroCHLOROthiazide (AVALIDE) 300-12.5 mg per tablet; Take 1 tablet by mouth daily. - blood glucose diagnostic (ONETOUCH VERIO) strip; 1 each by other route as directed. Bid ac - pen needle, diabetic (PEN NEEDLE) 31 gauge x 1/4 needle; Inject 1 pen under the skin daily. - Urinalysis reflex to microscopic and culture - Microscopic Examination - Lipid panel - Microalbumin, urine, random - Hemoglobin A1c - Uric acid - Erythrocyte sedimentation rate LIATE MARKETING MANAGER documented in this encounter Miscellaneous Notes * Assessment & Plan Note - Xena Valencia NP - 02/25/2018 1:23 PM CSTAssociated Problem(s): Left ankle swelling (Resolved 11/21/2018) Ice elevate compression Xray neg some soft tissue swelling If no improvement will order pt or consult orthopedic LIATE MARKETING MANAGER * Assessment & Plan Note - Xena Valencia NP - 02/25/2018 1:23 PM CSTAssociated Problem(s): Coronary artery disease involving chickahominy indian tribe coronary artery of chickahominy indian tribe heart without angina pectoris No change Daily weights call for greater than 3 pds weight gain one day 2g sodium diet Encourage balance nutrition and exercise Fu cardiology LIATE MARKETING MANAGER * Assessment & Plan Note - Xena Valencia NP - 02/25/2018 1:23 PM CSTAssociated Problem(s): Atherosclerosis of aorta (CMS/HCC) (HCC) Reviewed all diagnostics surgery referrals laboratory Answer all questions Reviewed all diagnostics surgery referrals laboratory Answer all questions Control dm htn lipid Call for le weakness abdominal pain fatigue LIATE MARKETING MANAGER * Assessment & Plan Note - Xena Valencia NP - 02/25/2018 1:23 PM CSTAssociated Problem(s): Type 2 diabetes mellitus with neurologic [...] shoes without socks to avoid skin injury LIATE MARKETING MANAGER * Assessment & Plan Note - Xena Valencia NP - 02/25/2018 1:22 PM CSTAssociated Problem(s): 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) (Resolved 02/07/2019) Do not go barefoot Wear supportive shoes and sock Never wear shoes without socks Check feet nightly Call for any change Fu podiatry LIATE MARKETING MANAGER * Assessment & Plan Note - Xena Valencia NP - 02/25/2018 1:22 PM CSTAssociated Problem(s): Morbid obesity (HCC) (Resolved 11/05/2020) eat three meals a day same time each day well balance using plate method found at [employer] stay well hydrated with water and walk 5 days a week LIATE MARKETING MANAGER * Assessment & Plan Note - Xena Valencia NP - 02/25/2018 1:22 PM CSTAssociated Problem(s): 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 2 diabetes mellitus ([facility]) ([facility]) Plan to eat meals same time each day, use plate method to plan appropriate fat, cho, protein and fiber Stay adequately hydrated avoid soft drinks Avoid high sugar snacks and desserts Implement walking program for exercise if approved by your provider. Take medication as prescribed report any dark urine, muscle ache or weakness to your provider LIATE MARKETING MANAGER * Assessment & Plan Note - Xena Valencia NP - 02/25/2018 1:22 PM CSTAssociated Problem(s): Type 2 diabetes mellitus with circulatory disorder ([facility]) ([facility]) Stable Lab pending Reviewed past medication, medical, [...] shoes without socks to avoid skin injury LIATE MARKETING MANAGER * Assessment & Plan Note - Xena Valencia NP - 02/25/2018 1:22 PM CSTAssociated Problem(s): Hypertensive heart disease without heart failure [...] burn use sun screen hat and sleeves LIATE MARKETING MANAGER * Assessment & Plan Note - Ela De La Cruz MA - 02/15/2018 9:45 AM AFFILIATE MARKETING MANAGER Associated Problem(s): Class 2 severe obesity due to excess calories with serious comorbidity and body mass index (BMI) of 37.0 to 37.9 in adult ([facility]) BMI Follow-up includes: nutrition counseling, exercise counseling and education provided. LIATE MARKETING MANAGER documented in this encounter Plan of Treatment Scheduled Orders Name Type Priority Associated Diagnoses Orde r Schedule Lipid panel Lab Routine 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 2 diabetes mellitus ([facility]) Coronary artery disease involving chickahominy indian tribe coronary artery of chickahominy indian tribe heart without angina pectoris Atherosclerosis of aorta ([facility]) Expected: 02/15/2018, Expires: 02/15/2019 Microalbumin, urine, random Lab Routine Type 2 diabetes mellitus with diabetic mononeuropathy, with long-term current use of insulin ([facility]) Expected: 02/15/2018, Expires: 02/15/2019 Urinalysis reflex to microscopic and culture Urine Microbiology Routine Type 2 diabetes mellitus with diabetic mononeuropathy, with long-term current use of insulin ([facility]) Expected: 02/15/2018, Expires: 02/15/2019 Uric acid Lab Routine Left ankle swelling Expected: 02/15/2018, Expires: 02/15/2019 Hemoglobin A1c Lab Routine Type 2 diabetes mellitus with diabetic mononeuropathy, with long-term current use of insulin ([facility]) Expected: 02/15/2018, Expires: 02/15/2019 Erythrocyte sedimentation rate Lab Routine Left ankle swelling Expected: 02/15/2018, Expires: 02/15/2019 documented as of this encounter Procedures Procedure Name Priority Date/Time Associated Diagnosis Comments MICROSCOPIC EXAMINATION Routine 02/15/2018 10:30 AM AFFILIATE MARKETING MANAGER URINALYSIS AND REFLEX TO MICROSCOPIC AND CULTURE Routine 02/15/2018 10:30 AM AFFILIATE MARKETING MANAGER ALBUMIN, RANDOM URINE WITHOUT CREATININE Routine 02/15/2018 10:30 AM AFFILIATE MARKETING MANAGER ERYTHROCYTE SEDIMENTATION RATE Routine 02/15/2018 10:30 AM AFFILIATE MARKETING MANAGER URIC ACID Routine 02/15/2018 10:30 AM AFFILIATE MARKETING MANAGER LIPASE Routine 02/15/2018 10:30 AM AFFILIATE MARKETING MANAGER RUQ pain HEMOGLOBIN A1C Routine 02/15/2018 10:30 AM AFFILIATE MARKETING MANAGER AMYLASE Routine 02/15/2018 10:30 AM AFFILIATE MARKETING MANAGER RUQ pain LIPID PANEL Routine 02/15/2018 10:30 AM AFFILIATE MARKETING MANAGER documented in this encounter Results * XR Ankle Left 2 Views (02/15/2018 11:28 AM AFFILIATE MARKETING MANAGER) Anatomical Region Laterality Modality Lower Extremities, Ankle Left Compute d Radiography 02/15/2018 11:5 1 AM AFFILIATE MARKETING MANAGER Impressions 02/15/2018 12:43 PM AFFILIATE MARKETING MANAGER Medial ankle soft tissue swelling with heterotopic ossification deltoid ligament is concerning for ligamentous injury. Dictated by: Perry Walker M.D. Electronically signed by: Luke Waddell M.D. Narrative 02/15/2018 12:43 PM AFFILIATE MARKETING MANAGER EXAMINATION: Left ankle 2 views HISTORY: Left ankle swelling and pain FINDINGS: 2 nonweightbearing views of the left ankle are submitted without comparison. ??There is medial soft tissue swelling with heterotopic ossification of the deltoid ligament. ??Joint spaces are normal. ??Ankle mortise is intact. ??Calcaneal spur is present. ??There is heterotopic ossification of the Achilles tendon insertion. Vascular calcifications are present. ??No acute fracture is present. Procedure Note Luke Waddell MD - 02/15/2018 EXAMINATION: Left ankle 2 views HISTORY: Left ankle swelling and pain FINDINGS: 2 nonweightbearing views of the left ankle are submitted without comparison. There is medial soft tissue swelling with heterotopic ossification of the deltoid ligament. Joint spaces are normal. Ankle mortise is intact. Calcaneal spur is present. There is heterotopic ossification of the Achilles tendon insertion. Vascular calcifications are present. No acute fracture is present. IMPRESSION: Medial ankle soft tissue swelling with heterotopic ossification deltoid ligament is concerning for ligamentous injury. Dictated by: Perry Walker M.D. Electronically signed by: Luke Waddell M.D. Xena Valencia NP IMG XR PROCEDURES Fi nal Result * Erythrocyte sedimentation rate (02/15/2018 10:30 AM AFFILIATE MARKETING MANAGER) Erythrocyte sedimentation rate 24 0 - 30 mm/hr [facility] - 01 02/15/2018 10:3 0 AM AFFILIATE MARKETING MANAGER 02/15/2018 Narrative [facility] - 02/16/2018 8:24 AM AFFILIATE MARKETING MANAGER Performed at: ??01 - [facility] [address] ??[id number] Restaurant Line Server: Woodrow Michel PhD, Phone: ??[phone] Xena Valencia NP LAB BLOOD ORDERABLES Final Result [facility] - 01 * Uric acid (02/15/2018 10:30 AM AFFILIATE MARKETING MANAGER) Uric acid 6.5 3.7 - 8.6 mg/dL [facility] - 01 Comment:Therapeutic target f or gout patients: <6.0 02/15/2018 10:3 0 AM AFFILIATE MARKETING MANAGER 02/15/2018 Narrative [facility] - 02/16/2018 8:24 AM AFFILIATE MARKETING MANAGER Performed at: ??01 - [facility] ??[id number] Restaurant Line Server: Woodrow Michel PhD, Phone: ??[phone] Xena Valencia NP LAB BLOOD ORDERABLES Final Result Performing Organization Address [facility] de Phone Number [facility] - * (ABNORMAL) Hemoglobin A1c (02/15/2018 10:30 AM AFFILIATE MARKETING MANAGER) Pathologist [facility] Hgb A1C 8.5(H) 4.8 - 5.6 % [facility] - 01 Comment: ? Prediabetes: 5.7 - 6.4 ? Diabetes: >6.4 ? Glycemic control for adults with diabetes: <7.0 02/15/2018 10:3 0 AM AFFILIATE MARKETING MANAGER 02/15/2018 Narrative [facility] - 02/16/2018 8:24 AM AFFILIATE MARKETING MANAGER Performed at: ??01 - [facility] ??[id number] Restaurant Line Server: Woodrow Michel PhD, Phone: ??[phone] Result [facility] Xena Valencia NP LAB BLOOD ORDERABLES Final Result Performing Organization Address [facility] de Phone Number [facility] - * Microalbumin, urine, random (02/15/2018 10:30 AM AFFILIATE MARKETING MANAGER) Pathologist [facility] Microalbumin, ur 101.2 Not Estab. ug/mL [facility] - 01 02/15/2018 10:3 0 AM AFFILIATE MARKETING MANAGER 02/15/2018 Narrative [facility] - 02/16/2018 8:24 AM AFFILIATE MARKETING MANAGER Performed at: ??01 - [facility] ??[id number] Restaurant Line Server: Woodrow Michel PhD, Phone: ??[phone] Xena Valencia NP LAB URINE ORDERABLES Final Result Performing Organization Address [facility] de Phone Number [facility] - 01 * (ABNORMAL) Lipid panel (02/15/2018 10:30 AM AFFILIATE MARKETING MANAGER) Cholesterol 150 100 - 199 mg/dL [facility] - 01 Triglycerides 158(H) 0 - 149 mg/dL [facility] - 01 HDL Cholesterol 41 >39 mg/dL [facility] - 01 VLDL 32 5 - 40 mg/dL [facility] - 01 LDL, calculated 77 0 - 99 mg/dL [facility] - 01 02/15/2018 10:3 0 AM AFFILIATE MARKETING MANAGER 02/15/2018 Narrative [facility] - 02/16/2018 8:24 AM AFFILIATE MARKETING MANAGER Performed at: ?? - [facility] ??[id number] Restaurant Line Server: Woodrow Michel PhD, Phone: ??[phone] Xena Valencia NP LAB BLOOD ORDERABLES Final Result Performing Organization Address [facility] de Phone Number [facility] - 01 * Microscopic Examination (02/15/2018 10:30 AM AFFILIATE MARKETING MANAGER) WBC, ur 0-5 0 - 5 /hpf [facility] - 01 RBC, ur 0-2 0 - 2 /hpf [facility] - 01 Epithelial cells, non-renal, ur None seen 0 - 10 /hpf [facility] - 01 Bacteria, ur None seen None seen/Few [facility] - 01 02/15/2018 10:3 0 AM AFFILIATE MARKETING MANAGER 02/15/2018 Narrative [facility] - 02/16/2018 8:24 AM AFFILIATE MARKETING MANAGER Performed at: ?? - [facility] ??[id number] Restaurant Line Server: Woodrow Michel PhD, Phone: ??[phone] Xena Valencia NP LAB BLOOD ORDERABLES Final Result Performing Organization Address [facility] de Phone Number [facility] - 01 * (ABNORMAL) Urinalysis reflex to microscopic and culture (02/15/2018 10:30 AM AFFILIATE MARKETING MANAGER) Specific [place] 1.027 1.005 - 1.030 [facility] - 01 pH, ur 5.5 5.0 - 7.5 [facility] - 01 Color, ur Yellow Yellow [facility] - 01 Appearance, ur Clear Clear [facility] - 01 Leukocyte esterase, ur Negative Negative [facility] - 01 Protein, ur Negative Negative/Tra ce [facility] - 01 Glucose, ur 3+(A) Negative [facility] - 01 Ketones, ur Negative Negative [facility] - 01 Blood, ur Negative Negative [facility] - 01 Bilirubin, ur Negative Negative [facility] - 01 Urobilinogen, quant, ur 0.2 0.2 - 1.0 mg/dL [facility] - 01 Nitrites, ur Negative Negative [facility] - 01 Urinalysis, microscopic exam Comment [facility] - 01 Comment:Microscopic follows if indicated. Urinalysis, microscopic exam See below: [facility] - 01 Comment:Microscopic was jayant cated and was performed. Urinalysis Comment [facility] - 01 Comment:This specimen will n ot reflex to a Urine Culture. 02/15/2018 10:3 0 AM AFFILIATE MARKETING MANAGER 02/15/2018 Narrative [facility] - 02/16/2018 8:24 AM AFFILIATE MARKETING MANAGER Performed at: ??01 - [facility] ??[id number] Restaurant Line Server: Woodrow Michel PhD, Phone: ??[phone] Xena Valencia NP LAB MICROBIOLOGY - G ENERAL ORDERABLES Final Result [facility] - 01 * Lipase (02/15/2018 10:30 AM AFFILIATE MARKETING MANAGER) Pathologist [facility] Lipase, Serum 29 13 - 78 U/L [facility] - 01 Blood specimen (specimen) 02/15/2018 10:30 AM AFFILIATE MARKETING MANAGER 02/15/2018 Narrative [facility] - 02/16/2018 8:24 AM AFFILIATE MARKETING MANAGER Performed at: ??01 - [facility] ??[id number] Restaurant Line Server: Woodrow Michel PhD, Phone: ??[phone] Xena Valencia NP LAB BLOOD ORDERABLES Final Result Performing Organization Address [facility] de Phone Number [facility] - 01 * Amylase (02/15/2018 10:30 AM AFFILIATE MARKETING MANAGER) Amylase, Serum 39 31 - 124 U/L [facility] - 01 Blood specimen (specimen) 02/15/2018 10:30 AM AFFILIATE MARKETING MANAGER 02/15/2018 Narrative [facility] - 02/16/2018 8:24 AM AFFILIATE MARKETING MANAGER Performed at: ??01 - [facility] ??[id number] Restaurant Line Server: Woodrow Michel PhD, Phone: ??[phone] Xena Valencia NP LAB BLOOD ORDERABLES Final Result Performing Organization Address [facility] de Phone Number [facility] - 01 documented in this encounter Visit Diagnoses Diagnosis Hypertension associated with diabetes ([facility])- Primary Unspecified essential hypertension Type 2 diabetes mellitus with other circulatory complication, with long-term current use of insulin (HCC) 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, with long-term current use of insulin ([facility]) 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) Morbid obesity (HCC) Morbid obesity Coronary artery disease involving [place] ind[place] tribe coronary artery of [place] tribe heart without angina pectoris Atherosclerosis of aorta (HCC) Atherosclerosis of aorta Left ankle swelling Effusion of ankle and foot joint RUQ pain Abdominal pain, right upper quadrant BMI 36.0-36.9,adult Left ankle swelling Effusion of ankle and foot joint documented in this encounter Discontinued Medications Medication Sig Discontinue Reason Start Date End Da te SYNJARDY XR 25-1,000 mg tablet, IR & ER, biphasic 24hr TAKE 1 TABLET BY MOUTH DAILY 07/31/2017 02/15/2018 pen needle, diabetic (PEN NEEDLE) 31 gauge x 1/4 needle Inject 1 pen under the skin daily. Reorder 08/25/2017 02/15/2018 ONETOUCH VERIO strip TEST ONCE A DAY Reorder 01/17/2017 02/15/2018 pen needle, diabetic (PEN NEEDLE) 31 gauge x 1/4 needle Inject 1 pen under the skin daily. Reorder 02/15/2018 02/15/2018 documented as of this encounter Historical Medications * This list may reflect changes made after this encounter. FLUZONE HIGH-DOSE , PF, 180 mcg/0.5 mL syringe Inject 1 application into the muscle as instructed once. 0 11/20/2017 9 added in this encounter Care Teams Powersaw Supervisor Relationship Specialty Start Date End Date Rickey Do MD PCP - General 05/20/16 11/08/20 documented as of this encounter
--- OUTSIDE RECORDS SUMMARY | 2024-02-10 01:53 | XMS_ITS | Encounter Summary ---
Author Organization [facility] Address [address] [address] Care Team Providers Care Wall Worker Name Role Phone Rickey Do MD Primary Care Provider [phone] Reason for Visit * Reason Comments Diabetes Encounter Details Date Type Department Care Team (Late st Contact Info) Description 06/26/2017 10:00 AM CDT Office Visit [facility] [address] [facility] [address] [place] [address] Xena Valencia, BALANCE WHEEL SCREW HOLE DRILLER [address] [place] [address] Benign hypertension, endocrine (Primary Dx); Type 2 diabetes mellitus with diabetic mononeuropathy, with long-term current use of insulin ([facility]); Coronary artery disease involving navajo coronary artery of navajo heart without angina pectoris; 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 2 diabetes mellitus (CMS/HCC); Peripheral neuropathy due to disorder of metabolism (CMS/HCC); Type 2 diabetes mellitus with other circulatory complication, with long-term current use of insulin ([facility]); BMI 35.0-35.9,adult; Morbid obesity ([facility]) Social History Tobacco Use Types Packs/Day Years Used Date Smoking Tobacco: Former Smokeless Tobacco: Never Comments:Smoking History Pac ks/day: 1 Packs Alcohol Use Standard Drinks/Week Comments Yes 0 (1 standard drink = 0.6 oz pur e alcohol) Sex and Gender Information Value Date Recorded Sex Assigned at Not on file 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 Gender Identity Not on file Sexual Orientation Not on file documented as of this encounter Last Filed Vital Signs Vital Sign Reading Time Taken Comments Blood Pressure 118/60 06/26/2017 10:16 AM CDT Pulse 78 06/26/2017 10:16 AM CDT Temperature - - Respiratory Rate 18 06/26/2017 10:16 AM CDT Oxygen Saturation 98% 06/26/2017 10:16 AM CDT Inhaled Oxygen Concentration - - Weight 116.6 kg (257 lb) 06/26/2017 10:16 AM CDT Height 180.3 cm (5' 11 ) 06/26/2017 10:16 AM CDT Body Mass Index 35.84 06/26/2017 10:16 AM CDT documented in this encounter Ordered Prescriptions Prescription Sig Dispense Quantity Refills Last Filled Start Date End Date insulin degludec-liragluti de 100 unit-3.6 mg /mL (3 mL) insulin penIndications:Typ e 2 diabetes mellitus with diabetic mononeuropathy, with long-term current use of insulin (HCC) Inject 28 Units under the skin daily. 9 Syringe 3 06/26/2017 05/02/2018 documented in this encounter Progress Notes * Xena Valencia NP - 06/26/2017 10:00 AM CDT Subjective/Objective Patient ID: Ayden Santos is a 71 y.o. male. Chief Complaint Diabetes 71 yo cm here for evaluation and management of chronic disease Dm who admits elevated bs am and and lower as day goes on smbg fasting 143-201 presupper 119-156 htn denies cp sob le edema takes meds as rx denies any change in readings Lipid take meds as rx denies dark colored urine muscle weakness Current Outpatient Prescriptions: ??? acyclovir (ZOVIRAX) 400 mg tablet, TAKE 1 TABLET BY MOUTH TWO TIMES DAILY, Disp: 180 tablet, Rfl: 2 ??? aspirin (BABY ASPIRIN) 81 mg chewable tablet, chew 1 tablet (81MG) by oral route every day, Disp: , Rfl: 0 ??? cholecalciferol (VITAMIN D3) 1,000 unit capsule, one daily, Disp: , Rfl: 0 ??? coenzyme Q10 (COQ-10) 100 mg capsule, take 3 by Oral route every evening, Disp: 0, Rfl: 0 ? ? empagliflozin-metformin 25-1,000 mg tablet, IR & ER, biphasic 24hr, Take 1 tablet by mouth daily., Disp: 90 tablet, Rfl: 3 ??? insulin degludec-liraglutide 100 unit-3.6 mg /mL (3 mL) insulin pen, Inject 28 Units under the skin daily., Disp: 9 Syringe, Rfl: 3 ??? lancets (onetouch ultrasoft) misc, test by by finger stick route 3 times every day, Disp: 300, Rfl: 8 ??? metoprolol (LOPRESSOR) 50 mg tablet, Take 1 tablet (50 mg total) by mouth 3 (three) times a day. Take 2 tablet at lunch and one tablet at bedtime, Disp: 270 tablet, Rfl: 3 ??? nitroglycerin (NITROSTAT) 0.4 mg SL tablet, place 1 tablet by sublingual route at the 1st sign of attack; may repeat every 5 min until relief; if pain persists after 3 tablets in 15 min, prompt medical attention is recommended, Disp: 1, Rfl: 0 ??? ONETOUCH VERIO strip, TEST ONCE A DAY, Disp: 100 each, Rfl: 3 ??? pen needle, diabetic (PEN NEEDLE) 31 gauge x 1/4 needle, Inject 1 pen under the skin daily., Disp: 100 each, Rfl: 3 ??? simvastatin (ZOCOR) 20 mg tablet, Take 1 tablet (20 mg total) by mouth nightly., Disp: 90 tablet, Rfl: 3 ??? valsartan-hydrochlorothiazide (DIOVAN-HCT) 320-25 mg per tablet, TAKE 1 TABLET BY MOUTH DAILY, Disp: 90 tablet, Rfl: 2 Allergies Allergen Reactions ??? Royce Inhibitors Cough Reaction: Cough, , ??? Amlodipine Edema Reaction: Edema, , ??? Farxiga [Dapagliflozin] Diarrhea Immunization History Administered Date(s) Administered ??? Hepatitis A, Adult 02/16/2000, 02/05/2001 ??? Influenza Split 11/29/2011 ??? Influenza Split High Dose Preservative Free IM 11/20/2013, 12/03/2015 ??? Influenza TIV (IM) 01/22/2008, 11/29/2010 ??? Influenza, Trivalent, Pres/Antib Free, IM 11/10/2014 ??? Influenza, Unspecified 11/21/2016 ??? Pneumococcal Conjugate 13-Valent (PREVNAR) 07/22/2014 ??? [...] polyuria. Genitourinary: Negative for decreased urine volume, discharge, dysuria, enuresis, flank pain, frequency, genital [...] Does not bruise/bleed easily. Psychiatric/Behavioral: Positive for sleep disturbance. Negative for agitation, behavioral problems, confusion, decreased concentration, dysphoric mood, hallucinations, self-injury and suicidal ideas. The patient [...] clear and moist. No oropharyngeal exudate. Eyes: Conjunctivae, EOM and lids are normal. Pupils are equal, round, and reactive to light. Neck: Trachea normal, normal range of motion, [...] normal reflexes. He displays normal reflexes. A cranial nerve deficit and sensory deficit is present. He exhibits normal muscle tone. Coordination normal. Skin: Skin is warm and dry. Capillary refill takes less than 2 seconds. No rash noted. He is not diaphoretic. No erythema. No pallor. Psychiatric: He has a normal mood and affect. His behavior is normal. Judgment and thought content normal. Nursing note and vitals reviewed. BP 118/60 (BP Location: Left arm, Patient Position: Sitting) Pulse 78 Resp 18 Ht 180.3 cm (5'11 ) Wt 116.6 kg (257 lb) SpO2 98% BMI 35.84 kg/m?? Assessment/Plan Diagnoses and all orders for this visit: Benign hypertension, endocrine (Primary) Assessment & Plan: Stable Hypertension is unchanged. Continue current treatment [...] mononeuropathy, with long-term current use of insulin ([facility]) Assessment & Plan: Stable Lab pending Reviewed [...] injury See orders Orders: - insulin degludec-liraglutide 100 unit-3.6 mg /mL (3 mL) insulin pen; Inject 28 Units under the skin daily. 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 Nutritional counseling was provided. and Pharmacotherapy as ordered. Lipids will be reassessed in 3 months see orders . Peripheral neuropathy due to disorder of metabolism ([facility]) Assessment & Plan: Reviewed all diagnostics surgery referrals laboratory Answer all questions Do not go barefoot Wear supportive shoes and sock Never wear shoes without socks Check feet nightly Call for any change Fu podiatry Type 2 diabetes mellitus with other circulatory complication, with long-term current use of insulin([facility]) Assessment & Plan: Stable Lab pending Reviewed [...] socks to avoid skin injury See orders BMI 35.0-35.9,adult Assessment & Plan: BMI Follow-up includes: nutrition counseling, exercise counseling and education provided. Morbid obesity (CMS/HCC) Assessment & Plan: BMI Follow-up includes: nutrition counseling, exercise counseling and education provided. 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 Nutritional counseling was provided. and Pharmacotherapy as ordered. Lipids will be reassessed in 3 months see orders . * Assessment & Plan Note - Xena Valencia NP - 07/05/2017 1:32 PM CDT Associated Problem(s): Coronary artery disease involving navajo coronary artery of navajo heart without angina pectoris Stable Daily weights call for greater than 3 pds weight gain one day 2g sodium diet Encourage balance nutrition and exercise [facility] cardiology * Assessment & Plan Note - Xena Valencia NP - 07/05/2017 1:32 PM CDT Associated Problem(s): Class 2 severe obesity due to excess calories with serious comorbidity and body mass index (BMI) of 37.0 to 37.9 in adult (HCC) BMI Follow-up includes: nutrition counseling, exercise counseling and education provided. * Assessment & Plan Note - Xena Valencia NP - 07/05/2017 1:32 PM CDT Associated Problem(s): Hypertensive heart disease without heart failure Stable Hypertension is unchanged. Continue current treatment [...] sun screen hat and sleeves See orders * Assessment & Plan Note - Xena Valencia NP - 06/26/2017 11:03 AM CDT Associated Problem(s): Morbid obesity (CMS/HCC) (HCC) (Resolved 02/15/2018) BMI Follow-up includes: nutrition counseling, exercise counseling and education provided. documented in this encounter Plan of Treatment Not on file documented as of this encounter Procedures Procedure Name Priority Date/Time Associated Diagnosis Comments HEMOGLOBIN A1C Routine 06/26/2017 12:00 AM CDT Type 2 diabetes mellitus with diabetic mononeuropathy, with long-term current use of insulin ([facility]) COMPREHENSIVE METABOLIC PANEL Routine 06/26/2017 12:00 AM CDT Type 2 diabetes mellitus with diabetic mononeuropathy, with long-term current use of insulin ([facility]) documented in this encounter Results * (ABNORMAL) Hemoglobin A1c (06/26/2017 12:00 AM CDT) Hgb A1C 8.2(H) 4.8 - 5.6 % [facility] - 01 Comment: ? Pre-diabetes: 5.7 - 6.4 ? Diabetes: >6.4 ? Glycemic control for adults with diabetes: <7.0 Blood specimen (specimen) 06/26/2017 06/26/2017 Narrative [facility] - 06/27/2017 6:16 AM CDT Performed at: ??01 - [facility] [address] ??[id number] Disposal Worker: Woodrow Michel PhD, Phone: ??[phone] us Xena Valencia NP LAB BLOOD ORDERABLES Final Result [facility] - 01 * (ABNORMAL) Comprehensive metabolic panel (06/26/2017 12:00 AM CDT) Glucose 143(H) 65 - 99 mg/dL [facility] - 01 BUN 25 8 - 27 mg/dL [facility] - 01 Creatinine, Serum 1.32(H) 0.76 - 1.27 mg/dL [facility] - 01 eGFR If NonAfricn Am 54(L) >59 mL/min/1.7 3 [facility] - 01 eGFR If Africn Am 62 >59 mL/min/1.7 3 [facility] - 01 BUN/creat ratio 19 10 - 24 [facility] - 01 Sodium 141 134 - 144 mmol/L [facility] - 01 Potassium, sr 4.6 3.5 - 5.2 mmol/L [facility] - 01 Chloride 101 96 - 106 mmol/L [facility] - 01 CO2 22 18 - 29 mmol/L [facility] - 01 Calcium 9.4 8.6 - 10.2 mg/dL [facility] - 01 Protein, sr 7.5 6.0 - 8.5 g/dL [facility] - 01 Albumin 4.5 3.5 - 4.8 g/dL [facility] - 01 Globulin, Total 3.0 1.5 - 4.5 g/dL [facility] - 01 A/G Ratio 1.5 1.2 - 2.2 [facility] - 01 Bilirubin, Total 0.5 0.0 - 1.2 mg/dL [facility] - 01 Alk phos 75 39 - 117 IU/L [facility] - 01 AST 21 0 - 40 IU/L [facility] - 01 ALT 23 0 - 44 IU/L [facility] - 01 Blood specimen (specimen) 06/26/2017 06/26/2017 [facility] - 06/27/2017 6:16 AM CDT Performed at: ??01 - [facility] [address] ??[id number] Disposal Worker: Woodrow Michel PhD, Phone: ??[phone] us Xena Valencia NP LAB BLOOD ORDERABLES Final Result [facility] - 01 documented in this encounter Visit Diagnoses Diagnosis Benign hypertension, endocrine- Primary Other secondary hypertension, benign Type 2 diabetes mellitus with diabetic mononeuropathy, with long-term current use of insulin (HCC) Coronary artery disease involving navajo coronary artery of navajo heart without angina pectoris 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) 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 Reorder 03/27/2017 06/26/2017 documented as of this encounter Care Teams Wall Worker Relationship Specialty Start Date End Date Rickey Do MD PCP - General 05/20/16 11/08/20 documented as of this encounter
--- OUTSIDE RECORDS SUMMARY | 2024-02-10 01:53 | XMS_ITS | Encounter Summary ---
Author Organization [facility] Address [address] [place] [address] Care Team Providers Care Locomotive Pipe Fitter Name Role Phone Rickey Do MD Primary Care Provider [phone] Encounter Details Date Type Department Care Team (Late st Contact Info) Description 09/28/2016 9:30 AM CDT Office Visit [facility] [address] [place] [address] Xena Valencia, MEDICAL DOCTOR NUCLEAR MEDICINE [address], [place] [id number] 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) (Primary Dx); 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 2 diabetes mellitus (CMS/HCC); Benign hypertension, endocrine; BMI 36.0-36.9,adult Social History Tobacco Use Types Packs/Day Years Used Date Smoking Tobacco: Former Cigarettes Q uit: 02/20/1985 Comments:Smoking History Pac ks/day: 1 Packs Alcohol Use Standard Drinks/Week Comments Yes 0 (1 standard drink = 0.6 oz pur e alcohol) Sex and Gender Information Value Date Recorded Sex Assigned at Not on file 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 Gender Identity Not on file Sexual Orientation Not on file documented as of this encounter Last Filed Vital Signs Vital Sign Reading Time Taken Comments Blood Pressure 126/70 09/28/2016 9:37 AM CDT Pulse 78 09/28/2016 9:37 AM CDT Temperature - - Respiratory Rate 18 09/28/2016 9:37 AM CDT Oxygen Saturation 98% 09/28/2016 9:37 AM CDT Inhaled Oxygen Concentration - - Weight 114.3 kg (252 lb) 09/28/2016 9:37 AM CDT Height 177.8 cm (5' 10 ) 09/28/2016 9:37 AM CDT Body Mass Index 36.16 09/28/2016 9:37 AM CDT documented in this encounter Ordered Prescriptions Prescription Sig Dispense Quantity Refills Last Filled Start Date End Date pen needle, diabetic (PEN NEEDLE) 31 gauge x 1/4 needle Inject 1 pen under the skin daily. 100 each 3 09/28/2016 07/27/2017 liraglutide (VICTOZA 3-STEWART) 0.6 mg/0.1 mL (18 mg/3 mL) injectionIndicatio ns:type 2 diabetes mellitus Inject 0.3 mL (1.8 mg total) under the skin daily. 27 mL 3 09/28/2016 01/11/2017 documented in this encounter Progress Notes * Xena Valencia, VASQUEZ - 09/28/2016 9:30 AM CDT Subjective/Objective Patient ID: Ayden Santos is a 70 y.o. male. Chief Complaint No chief complaint on file. 70 yo cm presents for evaluation management chronic disease Lost 3 pds bp down per pt smbg fasting 150-170 presupper 120-140 Denies cp sob le edema Feels like new medication are working Review of Systems Constitutional: Negative. Negative for [...] normal and breath sounds normal. No stridor. He has no wheezes. He has no [...] has normal reflexes. He displays normal reflexes. He exhibits normal muscle tone. Coordination normal. Skin: Skin is warm and dry. Capillary refill takes less than 2 seconds. No rash noted. He is not diaphoretic. No erythema. No pallor. Psychiatric: He has a normal mood and affect. His behavior is normal. Judgment and thought content normal. BP 126/70 (BP Location: Left arm, Patient Position: Sitting) Pulse 78 Resp 18 Ht 177.8 cm (5'10 ) Wt 114 kg (252 lb) SpO2 98% BMI 36.16 kg/m?? Assessment/Plan Diagnoses and all orders for this visit: 1. 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) (Primary) Assessment & Plan: Reviewed past medication, medical, surgical, family, social, [...] shoes without socks to avoid skin injury 2. 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 Nutritional counseling was provided. and Pharmacotherapy as ordered. Lipids will be reassessed in 3 months. 3. Benign hypertension, endocrine Assessment & Plan: dash diet and exercise and continue current medication asa 81mg po qd fu 2-3 months for labs and bpevaluation encourage home monitoring of blood pressure call for less than 115/60 or greater than 140/85 heart rate less than 60 or greater than 90, education that some blood pressure medication increase risk of sun burn use sun screen hat and sleeves 4. BMI 36.0-36.9,adult Assessment & Plan: BMI Follow-up includes: nutrition counseling, exercise counseling and education provided. Other orders - liraglutide (VICTOZA 3-STEWART) 0.6 mg/0.1 mL (18 mg/3 mL) injection; Inject 0.3 mL (1.8 mg total) under the skin daily. - pen needle, diabetic (PEN NEEDLE) 31 gauge x 1/4 needle; Inject 1 pen under the skin daily. documented in this encounter Miscellaneous Notes * Assessment & Plan Note - Xena Valencia NP - 10/03/2016 8:45 PM CDTAssociated Problem(s): Hypertensive heart disease without heart failure dash diet and exercise and continue current [...] Plan Note - Xena Valencia NP - 10/03/2016 8:45 PM CDTAssociated Problem(s): Type 2 diabetes mellitus with circulatory disorder (CMS/HCC) ([facility]) Reviewed past medication, medical, surgical, family, social, [...] Plan Note - Xena Valencia NP - 10/03/2016 8:44 PM CDTAssociated Problem(s): 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 2 diabetes mellitus ([facility]) ([facility]) Lipid abnormalities are unchanged. Nutritional counseling was provided. and Pharmacotherapy as ordered. Lipids will be reassessed in 3 months. * Assessment & Plan Note - Xena Valencia NP - 10/03/2016 8:44 PM CDTAssociated Problem(s): Class 2 severe obesity due to excess calories with serious comorbidity and body mass index (BMI) of 37.0 to 37.9 in adult ([facility]) BMI Follow-up includes: nutrition counseling, exercise counseling and education provided. documented in this encounter Plan of Treatment Not on file documented as of this encounter Visit Diagnoses Diagnosis Type 2 diabetes mellitus with other circulatory complication- Primary 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) Benign hypertension, endocrine Other secondary hypertension, benign BMI 36.0-36.9,adult documented in this encounter Discontinued Medications Medication Sig Discontinue Reason Start Date End Da te liraglutide (VICTOZA 3-STEWART) 0.6 mg/0.1 mL (18 mg/3 mL) injectionIndications:typ e 2 diabetes mellitus Inject 0.3 mL (1.8 mg total) under the skin daily. Reorder 09/09/2016 09/28/2016 pen needle, diabetic (PEN NEEDLE) 31 gauge x 1/4 needle for use with insulin pen daily up to four time a day Reorder 08/19/2011 09/28/2016 documented as of this encounter Care Teams Locomotive Pipe Fitter Relationship Specialty Start Date End Date Rickey Do MD PCP - General 05/20/16 11/08/20 documented as of this encounter
--- OUTSIDE RECORDS SUMMARY | 2024-02-10 01:53 | XMS_ITS | Encounter Summary ---
Author Organization [facility] Address [address] [place] [address] Care Team Providers Care Compressor Station Operator Name Role Phone Rickey Do MD Primary Care Provider [phone] Encounter Details Date Type Department Care Team (Late st Contact Info) Description 10/14/2016 Orders Only [facility] [address] [place] [phone] Xena Valencia, ER MANAGER [address] [facility] [place] [address] Social History Tobacco Use Types Packs/Day Years [...] on file 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 Unable to assess 05/13/2019 4:06 PM CDT documented as of this encounter Ordered Prescriptions Prescription Sig Dispense Quantity Refills Last Filled Start Date End Date empagliflozin-metf ormin 25-1,000 mg tablet, IR & ER, biphasic 24hr Take 1 tablet by mouth daily. 90 tablet 3 10/14/2016 07/28/2017 documented in this encounter Plan of Treatment Not on file documented as of this encounter Visit Diagnoses Not on filedocumented in this encounter Discontinued Medications Medication Sig Discontinue Reason Start Date End Da te empagliflozin-metformin 25-1,000 mg tablet, IR & ER, biphasic 24hr Take 1 tablet by mouth daily. Reorder 09/15/2016 10/14/2016 documented as of this encounter Care Teams Compressor Station Operator Relationship Specialty Start Date End Date Rickey Do MD PCP - General 05/20/16 11/08/20 documented as of this encounter
--- OUTSIDE RECORDS SUMMARY | 2024-02-10 01:53 | XMS_ITS | Encounter Summary ---
Author Organization [facility] Address [address] [facility] [address] [place] [address] Care Team Providers Care Hoisting Engine Operator Name Role Phone Rickey Do MD Primary Care Provider [phone] Reason for Visit * Reason Onset Date Comments Test Results 03/15/2017 colonoscopy Encounter Details Date Type Department Care Team (Late st Contact Info) Description 03/15/2017 [facility]phone [facility] [address] [phone] Peter Mensah MD [address] [place] [address] [phone] [place] [address] Test Results (colonoscopy) Social History Tobacco Use Types Packs/Day Years Used Date Smoking Tobacco: Former Smokeless Tobacco: Never Comments:Smoking History Pac ks/day: 1 Packs Alcohol Use Standard Drinks/Week Comments Yes 0 (1 standard drink = 0.6 oz pur e alcohol) Sex and Gender Information Value Date Recorded Sex Assigned at Not on file Legal Sex Male 11:37 AM 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 He will repeat colonoscopy in [address] mensah RONMENTAL EMERGENCIES ASSISTANT * Telephone Encounter - Katarina Tillman - 03/15/2017 3:39 PM ENVIRONMENTAL EMERGENCIES ASSISTANT ----- Message from Peter Mensah MD sent at 03/13/2017 1:39 PM ENVIRONMENTAL EMERGENCIES ASSISTANT ----- Please notify the patient that of the 4 polyps removed at his recent colonoscopy, 1 was a precancerous tubular adenoma and the other 3 were neither cancerous nor precancerous. Please again advise the patient have yearly FITs and colonoscopy in 3 years. RONMENTAL EMERGENCIES ASSISTANT documented in this encounter Plan of Treatment Not on file documented as of this encounter Visit Diagnoses Not on filedocumented in this encounter Care Teams Hoisting Engine Operator Relationship Specialty Start Date End Date Rickey Do MD PCP - General 05/20/16 11/08/20 documented as of this encounter
--- OUTSIDE RECORDS SUMMARY | 2024-02-10 01:53 | XMS_ITS | Encounter Summary ---
Author Organization [facility] Address [address] [address] Care Team Providers Care Nut Sifter Name Role Phone Rickey Do MD Primary Care Provider [phone] Reason for Visit * Reason Comments Medicare Wellness Encounter Details Date Type Department Care Team (Late st Contact Info) Description 09/25/2017 10:00 AM CDT Office Visit [facility] [address] [place] [address] Xena Valencia, WORKERS' COMPENSATION CLAIMS SUPERVISOR [address] [place] [address] Medicare annual wellness visit, subsequent (Primary Dx); Coronary artery disease involving tribe coronary artery of tribe heart without angina pectoris; Benign hypertension, endocrine; DDD (degenerative disc disease), thoracolumbar; Adrenal cyst (CMS/HCC); Renal cyst, acquired, right; Herpes simplex virus (HSV) infection; Type 2 diabetes mellitus with other circulatory complication, with long-term current use of insulin (CMS/HCC); Vitamin D deficiency; Benign neoplasm of colon, unspecified part of colon; Abnormal findings on diagnostic imaging of lung; DDD (degenerative disc disease), cervical; Type 2 diabetes mellitus with diabetic mononeuropathy, with long-term current use of insulin (CMS/HCC); Peripheral neuropathy due to disorder of metabolism (CMS/HCC); 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 2 diabetes mellitus (CMS/HCC); Family history of colon cancer; Morbid obesity (CMS/HCC) Social History Tobacco Use Types Packs/Day Years Used Date Smoking Tobacco: Former Cigarettes 1 15 Smokeless Tobacco: Never Comments:Smoking History Pac ks/day: 1 Packs Alcohol Use Standard Drinks/Week Comments Yes 0 (1 standard drink = 0.6 oz pur e alcohol) Sex and Gender Information Value Date Recorded Sex Assigned at Not on file 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 Gender Identity Not on file Sexual Orientation Not on file 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 Not on file documented as of this encounter Last Filed Vital Signs Vital Sign Reading Time Taken Comments Blood Pressure 132/72 09/25/2017 9:58 AM CDT Pulse 82 09/25/2017 9:58 AM CDT Temperature 36.9 ??C (98.4 ??F) 09/25/2017 9:58 AM CD T Respiratory Rate 18 09/25/2017 9:58 AM CDT Oxygen Saturation 96% 09/25/2017 9:58 AM CDT Inhaled Oxygen Concentration - - Weight 116.6 kg (257 lb) 09/25/2017 9:58 AM CDT Height 180.3 cm (5' 11 ) 09/25/2017 9:58 AM CDT Body Mass Index 35.84 09/25/2017 9:58 AM CDT documented in this encounter Ordered Prescriptions Prescription Sig Dispense Quantity Refills Last Filled Start Date End Date irbesartan-hydroch lorothiazide (AVALIDE) 150-12.5 mg per tablet Take 1 tablet by mouth daily. 90 tablet 3 09/25/2017 05/02/2018 documented in this encounter Progress Notes * Xena Valencia NP - 09/25/2017 10:00 AM CDT Subjective/Objective Patient ID: Ayden Santos is a 71 y.o. male. Chief Complaint Medicare Wellness 71 yo cm presents for annual subsequent exam Dm smbg fasting 126 - 150 presupper 119-170 taking xultophy 32 no hypoglycemia htn take meds as rx Lipid denies dark colored urine myalgia Cad mild per ccl 2016 Dr Jiménez Angiography: The coronary circulation is right dominant. LEFT MAIN: The vessel demonstrated normal. Mid-LAD artery segment: There is a(n) 30 % stenosis. First diagonal branch segment: There is a(n) 30 % stenosis. CIRCUMFLEX ARTERY: The vessel demonstrated minimal luminal irregularities. RIGHT CORONARY ARTERY: The vessel demonstrated minimal luminal irregularities. Past Medical History: Diagnosis Date ??? Adiposity [...] Elevated PSA: survellience biopsy ??? TONSILLECTOMY Tonsillectomy Family History Problem Relation Age of Onset ??? Coronary artery disease Father Coronary artery disease; ??? Alzheimer's disease Mother ??? Heart attack Paternal Grandmother ??? Colon cancer Paternal Grandfather Social History Social History ??? Marital status: Spouse name: Donny ??? Number of children: 2 ??? 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 Smoking status: Former Smoker Packs/day: 1.00 Years: 15.00 Types: Cigarettes ??? Smokeless tobacco: Never Used Comment: Smoking History Packs/day: 1 Packs ??? Alcohol use Yes ??? Drug use: No ??? Sexual activity: No Other Topics Concern ??? None Social History Narrative Agrees to blood/blood products: Y Agrees to blood/blood products: Y Current Outpatient Prescriptions: ??? acyclovir (ZOVIRAX) 400 [...] Disp: 90 tablet, Rfl: 3 ? ? SYNJARDY XR 25-1,000 mg tablet, IR & ER, biphasic 24hr, TAKE 1 TABLET BY MOUTH DAILY, Disp:90 tablet, Rfl: 1 Allergies Allergen Reactions ??? Royce Inhibitors Cough Reaction: Cough, , ??? Amlodipine Edema Reaction: Edema, , ??? Farxiga [Dapagliflozin] Diarrhea Immunization History Administered Date(s) Administered ??? Hep A, Adult 02/16/2000, 02/05/2001 ??? Influenza Split [...] Down, Depressed, or Hopeless: Not at all Trouble Falling or Staying Asleep, or Sleeping too Much: Several days Feeling Tired or Having Little Energy: Several days Poor Appetite or Overeating: Several days Feeling Bad About Yourself - or That You are a Failure or Have Let Yourself or Your Family Down: Not at all Trouble Concentrating on Things, Such as Reading the Newspaper or Watching Television: Not at all Moving or Speaking so Slowly That Other People Could Have Noticed, or the Opposite - Being so Fidgety or Restless That You Have Been Moving Around a lot More Than Usual: Not at all Thoughts That You Would be Better off , or of Hurting Yourself in Some Way: Not at all PHQ-9 Total Score: 3 If you checked off any problems, how difficult have these problems made it for you to do your work,take care of things at home, or get along with other people?: Not difficult at all Medicare Health Risk Assessment Basic Information Do you have an Advanced Directive (Living Will) and/or Durable Power of Industrial Security Analyst?: Yes - Please bring a copy to your next appointment Do you have pain that affects your ability to do your daily activities?: No Are you in a relationship with someone who makes you feel afraid, unsafe or is hurting you?: No How would you describe the condition of your mouth and teeth (including false teeth or dentures)?: Good Do you have trouble hearing the television or radio when other do not?: No Do you have to strain or struggle to hear/understand conversations?: Yes Have you experienced any of the following problems currently or recently? Eating: No Getting dressed: No Grooming: No Bathing: No Walking: No Using the toilet: No Memory problems: No Difficulty speaking: No Have you experienced any of the following problems currently or recently? Laundry and/or housekeeping: No Banking: No Shopping: No Using the telephone: No Food preparation: No Transportation: No [facility] Status Assesment Data: Able to state day [...] and bowel sounds are normal. He exhibits no shifting dullness, no distension, no pulsatile liver, no fluid wave, no abdominal bruit, no ascites, no pulsatile midline mass and no mass. There is no hepatosplenomegaly. There is no tenderness. There is no rigidity, no rebound, no guarding and no CVA tenderness. No hernia. Genitourinary: Genitourinary Comments: Deferred he fu dr reyes Musculoskeletal: Normal range of motion. He exhibits no edema, tenderness or deformity. Right foot: There is normal range of motion and no deformity. Left foot: There is normal range of motion and no deformity. Feet: Right Foot: Protective Sensation: 4 sites [...] Sharp/dull discrimination normal Filament test present BP 132/72 (BP Location: Left arm, Patient Position: Sitting) Pulse 82 Temp 36.9 ??C (98.4 ??F) (Oral) Resp 18 Ht 180.3 cm (5' 11 ) Wt 116.6 kg (257 lb) SpO2 96% BMI 35.84 kg/m?? Assessment/Plan Diagnoses and all orders for this visit: Medicare annual wellness visit, subsequent (Primary) Assessment & Plan: patient presents for annual exam ekg noted labs pending get copy of living will to pcp encourage follow gi for scheduled colonoscopy and egd if indicated encourage annual eye exam and dental minimum 2 times year encourage balance nutrition utilizing [employer] and exercise 5 days a week. See orders Coronary artery disease involving tribe coronary artery of tribe heart without angina pectoris Assessment & Plan: Coronary artery disease is unchanged. Continue current treatment regimen. Dietary sodium restriction. Weight loss. Regular aerobic exercise. Continue current medications. Cardiac status will be reassessed in 3 months see order Fu cardiology. Orders: - ECG 12 lead - Comprehensive metabolic panel; Future - Lipid panel; Future Benign hypertension, endocrine Assessment & Plan: Improved Continue current treatment regimen. Dietary sodium [...] burn use sun screen hat and sleeves Orders: - ECG 12 lead DDD (degenerative disc disease), thoracolumbar Assessment & Plan: Reviewed all diagnostics surgery referrals laboratory Answer all questions Encourage weight loss walking Adrenal cyst (CMS/HCC) Assessment & Plan: Reviewed all diagnostics surgery referrals laboratory Answer all questions Fu image Renal cyst, acquired, right Assessment & Plan: Reviewed all diagnostics surgery referrals laboratory Answer all questions Fu renal Herpes simplex virus (HSV) infection Assessment & Plan: Stable improved Keep clean dry Type 2 diabetes mellitus with other circulatory complication, with long-term current use of insulin(CMS/HCC) Assessment & Plan: Improved Stable Lab pending Reviewed past medication, [...] avoid skin injury See orders Orders: - TSH; Future - Uric acid; Future - Hemoglobin A1c; Future Vitamin D deficiency Assessment & Plan: Continue supplement and exercise Benign neoplasm of colon, unspecified part of colon Assessment & Plan: Reviewed all diagnostics surgery referrals laboratory Answer all questions Fu gi as scheduled Abnormal findings on diagnostic imaging of lung Assessment & Plan: Reviewed all diagnostics surgery referrals laboratory Answer all questions Fu routine DDD (degenerative disc disease), cervical Assessment & Plan: Reviewed all diagnostics surgery referrals laboratory Answer all questions Ice not heat , Rest with periods of walking. Prescription sent to pharmacy take as directed. All risk and benefits were discussed with patient. Reviewed prior diagnostics, labs consult prior treatments medications, d/w need for physical therapy and pain management Patient verbalized understanding agrees with plan of care Enc weight loss Type 2 diabetes mellitus with diabetic mononeuropathy, with long-term current use of insulin ([facility]) Assessment & Plan: Stable Lab pending Reviewed [...] socks to avoid skin injury See orders. Peripheral neuropathy due to disorder of metabolism (CMS/HCC) Assessment & Plan: Do not go barefoot Wear supportive shoes and sock Never wear shoes without socks Check feet nightly Call for any change Fu podiatry 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 2 diabetes mellitus (CMS/HCC) Assessment & Plan: Lipid abnormalities are unchanged. Nutritional counseling was provided. and Pharmacotherapy as ordered. Lipids will be reassessed in 3 months see order . Family history of colon cancer Assessment & Plan: Reviewed all diagnostics surgery referrals laboratory Answer all questions shaina neg Fu gi Morbid obesity (CMS/HCC) Assessment & Plan: Obesity is unchanged. Counseling was provided to the child and family regarding behavior modifications, nutrition and physical activity. Diet interventions: diet diary indefinitely. Regular aerobic exercise program discussed. Other orders - Varicella-zoster HZV IM - irbesartan-hydrochlorothiazide (AVALIDE) 150-12.5 mg per tablet; Take 1 tablet by mouth daily. Cosigned by Rickey Do MD at 10/18/2017 9:41 PM CDT Associated attestation - Rickey Do MD - 10/18/2017 9:41 PM CDT I have reviewed the history of present illness as well as the physical exam and plan as outlined bythe nurse practitioner. I was available at the time the service was performed. I agree with the physical and plans as outlined. * Xena Valencia NP - 09/25/2017 10:00 AM CDT Your laboratory assessment was reviewed, found stable. If there are any outlying results they were found not clinically relevant. Please sign up for my chart as that is how we will communicate with patients this year. Keep up good work much better documented in this encounter Miscellaneous Notes * Assessment & Plan Note - Xena Valencia NP - 10/11/2017 8:06 AM CDT Associated Problem(s): Medicare annual wellness visit, subsequent (Resolved 02/10/2021) patient presents for annual exam ekg noted labs pending get copy of living will to pcp encourage follow gi for scheduled colonoscopy and egd if indicated encourage annual eye exam and dental minimum 2 times year encourage balance nutrition utilizing [employer] and exercise 5 days a week. See orders * Assessment & Plan Note - Xena Valencia NP - 10/11/2017 8:05 AM CDT Associated Problem(s): Morbid obesity (CMS/HCC) (HCC) (Resolved 02/15/2018) Obesity is unchanged. Counseling was provided to the child and family regarding behavior modifications, nutrition and physical activity. Diet interventions: diet diary indefinitely. Regular aerobic exercise program discussed. * Assessment & Plan Note - Xena Valencia NP - 10/11/2017 8:05 AM CDT Associated Problem(s): Coronary artery disease involving tribe coronary artery of tribe heart without angina pectoris Coronary artery disease is unchanged. Continue current treatment regimen. Dietary sodium restriction. Weight loss. Regular aerobic exercise. Continue current medications. Cardiac status will be reassessed in 3 months see order Fu cardiology. * Assessment & Plan Note - Xena Valencia NP - 10/11/2017 8:05 AM CDT Associated Problem(s): DDD (degenerative disc disease), thoracolumbar Reviewed all diagnostics surgery referrals laboratory Answer all questions Encourage weight loss walking * Assessment & Plan Note - Xena Valencia NP - 10/11/2017 8:05 AM CDT Associated Problem(s): Adrenal cyst (HCC) (Resolved 11/05/2020) Reviewed all diagnostics surgery referrals laboratory Answer all questions Fu image * Assessment & Plan Note - Xena Valencia NP - 10/11/2017 8:04 AM CDT Associated Problem(s): Renal cyst, acquired, right Reviewed all diagnostics surgery referrals laboratory Answer all questions Fu renal * Assessment & Plan Note - Xena Valencia NP - 10/11/2017 8:04 AM CDT Associated Problem(s): 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 Nutritional counseling was provided. and Pharmacotherapy as ordered. Lipids will be reassessed in 3 months see order . * Assessment & Plan Note - Xena Valencia NP - 10/11/2017 8:04 AM CDT Associated Problem(s): 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) (Resolved 02/07/2019) Do not go barefoot Wear supportive shoes and sock Never wear shoes without socks Check feet nightly Call for any change Fu podiatry * Assessment & Plan Note - Xena Valencia NP - 10/11/2017 8:04 AM CDT Associated Problem(s): Family history of colon cancer (Resolved 08/19/2021) Reviewed all diagnostics surgery referrals laboratory Answer all questions shaina neg Fu gi * Assessment & Plan Note - Xena Valencia NP - 10/11/2017 8:03 AM CDT Associated Problem(s): Type 2 diabetes [...] socks to avoid skin injury See orders. * Assessment & Plan Note - Xena Valencia NP - 10/11/2017 8:03 AM CDT Associated Problem(s): DDD (degenerative disc disease), cervical Reviewed [...] with plan of care Enc weight loss * Assessment & Plan Note - Xena Valencia NP - 10/11/2017 8:03 AM CDT Associated Problem(s): Hypertensive heart disease without heart failure Improved Continue current treatment regimen. Dietary sodium [...] Plan Note - Xena Valencia NP - 10/11/2017 8:02 AM CDT Associated Problem(s): Abnormal findings on diagnostic imaging of lung (Resolved 02/24/2022) Reviewed all diagnostics surgery referrals laboratory Answer all questions Fu routine * Assessment & Plan Note - Xena Valencia NP - 10/11/2017 8:02 AM CDT Associated Problem(s): Benign neoplasm of large intestine (Resolved 11/05/2020) Reviewed all diagnostics surgery referrals laboratory Answer all questions Fu gi as scheduled * Assessment & Plan Note - Xena Valencia NP - 10/11/2017 8:02 AM CDT Associated Problem(s): Vitamin D deficiency (Resolved 02/24/2022) Continue supplement and exercise * Assessment & Plan Note - Xena Valencia NP - 10/11/2017 8:01 AM CDT Associated Problem(s): Type 2 diabetes mellitus with circulatory disorder (CMS/HCC) (HCC) Improved Stable Lab pending Reviewed past medication, [...] Plan Note - Xena Valencia NP - 10/11/2017 8:01 AM CDT Associated Problem(s): Herpes simplex Stable improved Keep clean dry documented in this encounter Plan of Treatment Not on file documented as of this encounter Procedures Procedure Name Priority Date/Time Associated Diagnosis Comments URIC ACID Routine 09/25/2017 10:32 AM CDT Type 2 diabetes mellitus with other circulatory complication, with long-term current use of insulin ([facility]) TSH Routine 09/25/2017 10:32 AM CDT Type 2 diabetes mellitus with other circulatory complication, with long-term current use of insulin (CMS/[facility]) HEMOGLOBIN A1C Routine 09/25/2017 10:32 AM CDT Type 2 diabetes mellitus with other circulatory complication, with long-term current use of insulin (CMS/[facility]) LIPID PANEL Routine 09/25/2017 10:32 AM CDT Coronary artery disease involving tribe coronary artery of tribe heart without angina pectoris COMPREHENSIVE METABOLIC PANEL Routine 09/25/2017 10:32 AM CDT Coronary artery disease involving tribe coronary artery of tribe heart without angina pectoris ECG 12-LEAD Routine 09/25/2017 Benign hypertension, endocrine Coronary artery disease involving tribe coronary artery of tribe heart without angina pectoris documented in this encounter Results * (ABNORMAL) Hemoglobin A1c (09/25/2017 10:32 AM CDT) Hgb A1C 7.7(H) 4.8 - 5.6 % [facility] - 01 Comment: ? Pre-diabetes: 5.7 - 6.4 ? Diabetes: >6.4 ? Glycemic control for adults with diabetes: <7.0 Blood specimen (specimen) 09/25/2017 10:32 AM CDT 09/25/2017 Narrative [facility] - 09/27/2017 10:17 AM CDT Performed at: ??01 - [email or web address] ??[id number] Hockey Instructor: Woodrow Michel PhD, Phone: ??[phone] us Xena Valencia NP LAB BLOOD ORDERABLES Final Result [facility] - 01 * Uric acid (09/25/2017 10:32 AM CDT) Uric acid 6.6 3.7 - 8.6 mg/dL [facility] - 01 Comment:Therapeutic target f or gout patients: <6.0 Blood specimen (specimen) 09/25/2017 10:32 AM CDT 09/25/2017 Narrative [facility] - 09/27/2017 10:17 AM CDT Performed at: ??01 - [email or web address] ??[id number] Hockey Instructor: Woodrow Michel PhD, Phone: ??[phone] Xena Valencia WORKERS' COMPENSATION CLAIMS SUPERVISOR LAB BLOOD ORDERABLES Final Result Performing Organization Address [facility] Phone Number [facility] - 01 * TSH (09/25/2017 10:32 AM CDT) TSH 2.010 0.450 - 4.500 uIU/mL [facility] - 01 Blood specimen (specimen) 09/25/2017 10:32 AM CDT 09/25/2017 Narrative [facility] - 09/27/2017 10:17 AM CDT Performed at: ??01 - [facility] ??[id number] Hockey Instructor: Woodrow Michel PhD, Phone: ??[phone] Xena Valencia WORKERS' COMPENSATION CLAIMS SUPERVISOR LAB BLOOD ORDERABLES Final Result Performing Organization Address [facility] de Phone Number [facility] - 01 * Lipid panel (09/25/2017 10:32 AM CDT) Cholesterol 126 100 - 199 mg/dL [facility] - 01 Triglycerides 145 0 - 149 mg/dL [facility] - 01 HDL Cholesterol 40 >39 mg/dL [facility] - 01 VLDL 29 5 - 40 mg/dL [facility] - 01 LDL, calculated 57 0 - 99 mg/dL [facility] - 01 Blood specimen (specimen) 09/25/2017 10:32 AM CDT 09/25/2017 Narrative [facility] - 09/27/2017 10:17 AM CDT Performed at: ?? - [facility] ??[id number] Hockey Instructor: Woodrow Michel PhD, Phone: ??[phone] Xena Valencia WORKERS' COMPENSATION CLAIMS SUPERVISOR LAB BLOOD ORDERABLES Final Result Performing Organization Address [facility] Phone Number [facility] - 01 * (ABNORMAL) Comprehensive metabolic panel (09/25/2017 10:32 AM CDT) Glucose 125(H) 65 - 99 mg/dL [facility] - 01 BUN 15 8 - 27 mg/dL [facility] - 01 Creatinine, Serum 1.14 0.76 - 1.27 mg/dL [facility] - 01 eGFR If NonAfricn Am 64 >59 mL/min/1.7 3 [facility] - 01 eGFR If Africn Am 74 >59 mL/min/1.7 3 [facility] - 01 BUN/creat ratio 13 10 - 24 [facility] - 01 Sodium 139 134 - 144 mmol/L [facility] - 01 Potassium, sr 4.3 3.5 - 5.2 mmol/L [facility] - 01 Chloride 101 96 - 106 mmol/L [facility] - 01 CO2 22 20 - 29 mmol/L [facility] - 01 Calcium 9.6 8.6 - 10.2 mg/dL [facility] - 01 Protein, sr 7.4 6.0 - 8.5 g/dL [facility] - 01 Albumin 4.5 3.5 - 4.8 g/dL [facility] - 01 Globulin, Total 2.9 1.5 - 4.5 g/dL [facility] - 01 A/G Ratio 1.6 1.2 - 2.2 [facility] - 01 Bilirubin, Total 0.6 0.0 - 1.2 mg/dL [facility] - 01 Alk phos 81 39 - 117 IU/L [facility] - 01 AST 20 0 - 40 IU/L [facility] - 01 ALT 20 0 - 44 IU/L [facility] - 01 Blood specimen (specimen) 09/25/2017 10:32 AM CDT 09/25/2017 Narrative [facility] - 09/27/2017 10:17 AM CDT Performed at: ??01 - [facility] [address] ??[id number] Hockey Instructor: Woodrow Michel PhD, Phone: ??[phone] us Xena Valencia NP LAB BLOOD ORDERABLES Final Result [facility] - 01 * ECG 12 lead (09/25/2017) Xena Valencia WORKERS' COMPENSATION CLAIMS SUPERVISOR ECG ORDERABLES Anya l Result documented in this encounter Visit Diagnoses Diagnosis Medicare annual wellness visit, subsequent- Primary Coronary artery disease involving tribe coronary artery of tribe heart without angina pectoris Benign hypertension, endocrine Other secondary hypertension, benign DDD (degenerative disc disease), thoracolumbar Degeneration of thoracic or thoracolumbar intervertebral disc Adrenal cyst (HCC) Other specified disorders of adrenal glands Renal cyst, acquired, right Herpes simplex virus (HSV) infection Type 2 diabetes mellitus with other circulatory complication, with long-term current use of insulin (HCC) Vitamin D deficiency Benign neoplasm of colon, unspecified part of colon Abnormal findings on diagnostic imaging of lung DDD (degenerative disc disease), cervical Degeneration of cervical intervertebral disc Type 2 diabetes mellitus with diabetic mononeuropathy, with long-term current use of insulin (HCC) 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) 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) Family history of colon cancer Family history of malignant neoplasm of gastrointestinal tract Morbid obesity (HCC) Morbid obesity documented in this encounter Discontinued Medications Medication Sig Discontinue Reason Start Date End Da te irbesartan-hydrochloroth iazide (AVALIDE) 150-12.5 mg per tablet Take 1 tablet by mouth daily. Reorder 09/05/2017 09/25/2017 documented as of this encounter Care Teams Nut Sifter Relationship Specialty Start Date End Date Rickey Do MD PCP - General 05/20/16 11/08/20 documented as of this encounter
--- OUTSIDE RECORDS SUMMARY | 2024-02-10 01:53 | XMS_ITS | Encounter Summary ---
Author Organization [facility] Address [address] [address] Care Team Providers Care Intertype Operator Name Role Phone Rickey Do MD Primary Care Provider [phone] Reason for Visit * Reason Comments Diabetes Hypertension Hyperlipidemia Encounter Details Date Type Department Care Team (Late st Contact Info) Description 11/01/2016 9:00 AM CDT Office Visit [facility] [address] [facility] [address] [place] [address] Xena Valencia, DRUM SAW OPERATOR [address] [facility] [place] [address] 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) (Primary Dx); Type 2 diabetes mellitus with other neurologic complication (CMS/HCC); Peripheral neuropathy due to disorder of metabolism; 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 2 diabetes mellitus (CMS/HCC); Benign hypertension, endocrine; DDD (degenerative disc disease), cervical; DDD (degenerative disc disease), thoracolumbar; BMI 35.0-35.9,adult Social History Tobacco Use Types Packs/Day Years Used Date Smoking Tobacco: Former Cigarettes Q uit: 02/20/1985 Comments:Smoking History Pac ks/day: 1 Packs Alcohol Use Standard Drinks/Week Comments Yes 0 (1 standard drink = 0.6 oz pur e alcohol) Sex and Gender Information Value Date Recorded Sex Assigned at Not on file 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 Gender Identity Not on file Sexual Orientation Not on file documented as of this encounter Last Filed Vital Signs Vital Sign Reading Time Taken Comments Blood Pressure 142/84 11/01/2016 9:35 AM CDT Pulse 90 11/01/2016 9:35 AM CDT Temperature - - Respiratory Rate 18 11/01/2016 9:35 AM CDT Oxygen Saturation 96% 11/01/2016 9:35 AM CDT Inhaled Oxygen Concentration - - Weight 115.2 kg (254 lb) 11/01/2016 9:35 AM CDT Height 180.3 cm (5' 11 ) 11/01/2016 9:35 AM CDT Body Mass Index 35.43 11/01/2016 9:35 AM CDT documented in this encounter Ordered Prescriptions Prescription Sig Dispense Quantity Refills Last Filled Start Date End Date metoprolol (LOPRESSOR) 50 mg tablet Take 1 tablet (50 mg total) by mouth 3 (three) times a day. Take 2 tablet at lunch and one tablet at bedtime 270 tablet 3 11/01/2016 8 documented in this encounter Progress Notes * Xena Valencia, DRUM SAW OPERATOR - 11/01/2016 9:00 AM CDT Subjective/Objective Patient ID: Ayden Santos is a 70 y.o. male. Chief Complaint Diabetes; Hypertension; and Hyperlipidemia 70 yo male with dm htn lipid smbg fasting 136-172 prelunch 120 presupper 118-150 Current Outpatient Prescriptions: ??? acyclovir (ZOVIRAX) 400 mg tablet, take 1 tablet by oral route 2 times every day, Disp: 180, Rfl: 3 ??? aspirin (BABY ASPIRIN) 81 mg chewable tablet, chew 1 tablet (81MG) by oral route every day, Disp: , Rfl: 0 ??? blood glucose diagnostic (ONETOUCH VERIO) strip, test 1 by blood sugar route daily, Disp: 100 strip, Rfl: 3 ??? cholecalciferol (VITAMIN D3) 1,000 unit capsule, one daily, Disp: , Rfl: 0 ??? coenzyme Q10 (COQ-10) 100 mg capsule, take 3 by Oral route every evening, Disp: 0, Rfl: 0 ? ? empagliflozin-metformin 25-1,000 mg tablet, IR & ER, biphasic 24hr, Take 1 tablet by mouth daily., Disp: 90 tablet, Rfl: 3 ??? lancets (onetouch ultrasoft) misc, test by by finger stick route 3 times every day, Disp: 300, Rfl: 8 ??? liraglutide (VICTOZA 3-STEWART) 0.6 mg/0.1 mL (18 mg/3 mL) injection, Inject 0.3 mL (1.8 mg total) under the skin daily., Disp: 27 mL, Rfl: 3 ??? metoprolol (LOPRESSOR) 50 mg tablet, Take 1 tablet by mouth twice a day with meals, Disp: 180 tablet, Rfl: 1 ??? nitroglycerin (NITROSTAT) 0.4 mg SL tablet, [...] (ZOCOR) 20 mg tablet, Take 1 tablet by mouth every day in the evening, Disp: 90 tablet, Rfl: 1 ??? valsartan-hydrochlorothiazide (DIOVAN-HCT) 320-25 mg per tablet, Take 1 tablet by mouth daily, Disp: 90 tablet, Rfl: 1 -- Royce Inhibitors -- Cough -- Reaction: Cough, -- Amlodipine -- Edema -- Reaction: Edema, -- Farxiga (Dapagliflozin) -- Diarrhea htn stage one in office today Takes beta and arb/hctz Weight stable Lipid take meds as rx no weakness dark colored urine Review of Systems Constitutional: Negative. Negative for [...] polydipsia, polyphagia and polyuria. Genitourinary: Positive for frequency. Negative for decreased urine volume, difficulty urinating, [...] no friction rub. No murmur heard. Pulses: Dorsalis pedis pulses are 2+ on the [...] motion and no deformity. Feet: Right Foot: Monofilament exam normal. Left Foot: Monofilament exam normal. Lymphadenopathy: He has no cervical adenopathy. Neurological: [...] normal. Judgment and thought content normal. BP 142/84 (Patient Position: Sitting) Pulse 90 Resp 18 Ht 180.3 cm (5' 11 ) Wt 115.2 kg (254 lb) SpO2 96% BMI 35.43 kg/m?? Assessment/Plan Diagnoses and all orders for this visit: 1. 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) (Primary) Assessment & Plan: Unchanged Reviewed past medication, medical, surgical, family, [...] socks to avoid skin injury See orders 2. Type 2 diabetes mellitus with other neurologic complication ([facility]) Assessment & Plan: Reviewed past medication, medical, [...] socks to avoid skin injury See orders 3. Peripheral neuropathy due to disorder of metabolism Assessment & Plan: Do not go barefoot Wear supportive shoes and sock Never wear shoes without socks Check feet nightly Call for any change Fu podiatry 4. 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 2 diabetes mellitus ([facility]) Assessment & Plan: Lipid abnormalities are unchanged. Nutritional counseling was provided. and Pharmacotherapy as ordered. Lipids will be reassessed in 6 months. 5. Benign hypertension, endocrine Assessment & Plan: Unchanged dash diet and exercise and continue current medication asa 81mg po qd fu 2-3 months for labs and bpevaluation encourage home monitoring of blood pressure call for less than 115/60 or greater than 140/85 heart rate less than 60 or greater than 90, education that some blood pressure medication increase risk of sun burn use sun screen hat and sleeves 6. DDD (degenerative disc disease), cervical Assessment & Plan: Ice posterior neck, Rest with periods of walking. Prescription sent to pharmacy take as directed. All risk and benefits were discussed with patient. Diagnosting testing pending. Report any changes ofvision, balance, speech, swallowing, memory or mental status changes. Patient verbalized understanding agrees with plan of care Reviewed all diagnostics surgery referrals laboratory Answer all questions 7. DDD (degenerative disc disease), thoracolumbar Assessment & Plan: Ice posterior , Rest with periods of walking. Prescription sent to pharmacy take as directed. All risk and benefits were discussed with patient. Diagnosting testing pending. Report any changes of vision, balance, speech, swallowing, memory or mental status changes. Patient verbalized understanding agrees with plan of care Reviewed all diagnostics surgery referrals laboratory Answer all questions 8. BMI 35.0-35.9,adult Assessment & Plan: BMI Follow-up includes: nutrition counseling, exercise counseling and education provided. Other orders - metoprolol (LOPRESSOR) 50 mg tablet; Take 1 tablet (50 mg total) by mouth 3 (three) times a day. Take 2 tablet at lunch and one tablet at bedtime documented in this encounter Miscellaneous Notes * Assessment & Plan Note - Xena Valencia NP - 11/07/2016 8:36 AM CDTAssociated Problem(s): Type 2 diabetes mellitus with neurologic complication (HCC) (Resolved 11/05/2020) Reviewed past medication, medical, surgical, family, social, [...] for smbg and was rx we discussed needfor food diary and utilizing the diary as [...] Plan Note - Xena Valencia NP - 11/07/2016 8:35 AM CDTAssociated Problem(s): Type 2 diabetes mellitus with circulatory disorder (CMS/HCC) (HCC) Unchanged Reviewed past medication, medical, surgical, family, [...] Plan Note - Xena Valencia NP - 11/07/2016 8:34 AM CDTAssociated Problem(s): 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) (Resolved 02/07/2019) Do not go barefoot Wear supportive shoes and sock Never wear shoes without socks Check feet nightly Call for any change Fu podiatry * Assessment & Plan Note - Xena Valencia NP - 11/07/2016 8:33 AM CDTAssociated Problem(s): 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 Nutritional counseling was provided. and Pharmacotherapy as ordered. Lipids will be reassessed in 6 months. * Assessment & Plan Note - Xena Valencia NP - 11/07/2016 8:33 AM CDTAssociated Problem(s): DDD (degenerative disc disease), thoracolumbar Ice posterior , Rest with periods of [...] Plan Note - Xena Valencia NP - 11/07/2016 8:33 AM CDTAssociated Problem(s): DDD (degenerative disc disease), cervical Ice posterior neck, Rest with periods of walking. Prescription sent to pharmacy take as directed. All risk and benefits were discussed with patient. Diagnosting testing pending. Report any changes ofvision, balance, speech, swallowing, memory or mental status changes. 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) 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) Benign hypertension, endocrine Other secondary hypertension, benign DDD (degenerative disc disease), cervical Degeneration of cervical intervertebral disc DDD (degenerative disc disease), thoracolumbar Degeneration of thoracic or thoracolumbar intervertebral disc BMI 35.0-35.9,adult documented in this encounter Discontinued Medications Medication Sig Discontinue Reason Start Date End Da te metoprolol (LOPRESSOR) 50 mg tablet Take 1 tablet by mouth twice a day with meals Reorder 10/07/2016 11/01/2016 documented as of this encounter Care Teams Intertype Operator Relationship Specialty Start Date End Date Rickey Do MD PCP - General 05/20/16 11/08/20 documented as of this encounter
--- OUTSIDE RECORDS SUMMARY | 2024-02-10 01:53 | XMS_ITS | Encounter Summary ---
Author Organization [facility] Address [address] [facility] [address] [place] [address] Care Team Providers Care Behavioral Science Chair Name Role Phone Rickey Do MD Primary Care Provider Reason for Visit * Reason Onset Date Comments prabha-Med Refill 09/05/2017 Encounter Details Date Type Department Care Team (Late st Contact Info) Description 09/05/2017 Telephone [facility] [address] 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 Gender Identity Not on file Sexual Orientation Not on file documented as of this encounter Miscellaneous Notes * Telephone Encounter - Xena Valencia NP - 09/05/2017 10:12 AM CDT Rx sent to [facility] * Telephone Encounter - Ghada So - 09/05/2017 8:39 AM CDT Medication Refill: Patient's Last Visit: 5.7.18 Patient's Next Visit: 8.6.18 Medications: valsartan hctz replacement med Preferred Pharmacy: [facility] Caller's Callback #: [phone] Additional Comments: Patient calling to ask for a replacement med for valsartan hctz 320/25mg as hesaw a commercial that stated the med causes cancer and he should have it replaced with a different medication. documented in this encounter Plan of Treatment Not on file documented as of this encounter Visit Diagnoses Not on filedocumented in this encounter Care Teams Behavioral Science Chair Relationship Specialty Start Date End Date Rickey Do MD PCP - General 05/20/16 11/08/20 documented as of this encounter
--- OUTSIDE RECORDS SUMMARY | 2024-02-10 01:53 | XMS_ITS | Encounter Summary ---
Author Organization [facility] Address [address] [facility] [address] [place] [address] Care Team Providers Care Security Field Supervisor Name Role Phone Rickey Do MD Primary Care Provider [phone] Reason for Visit * Reason Comments Left Message Encounter Details Date Type Department Care Team (Late st Contact Info) Description 12/28/2017 ACO Outreach [facility] Accountable Care Organization [address] [place] [address] Nasrin Fan, [address] [place] [address] Social History Tobacco Use Types Packs/Day Years Used Date Smoking Tobacco: Former Cigarettes 1 15 Smokeless Tobacco: Never Comments:Smoking History Pac ks/day: 1 Packs Alcohol Use Standard Drinks/Week Comments Yes 0 (1 standard drink = 0.6 oz pur e alcohol) Sex and Gender Information Value Date Recorded Sex Assigned at Not on file 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
--- OUTSIDE RECORDS SUMMARY | 2024-02-10 01:53 | XMS_ITS | Encounter Summary ---
Author Organization [facility] Address [address] [facility] [address] [place] [address] Care Team Providers Care Electronics Installer Name Role Phone Rickey Do MD Primary Care Provider Encounter Details Date Type Department Care Team (Late st Contact Info) Description 03/31/2017 Orders Only [facility] [address] [facility] [address] [place] [phone] Marisela Hunter Social History Tobacco Use Types Packs/Day Years Used Date Smoking Tobacco: Former Smokeless Tobacco: Never Comments:Smoking History Pac ks/day: 1 Packs Alcohol Use Standard Drinks/Week Comments Yes 0 (1 standard drink = 0.6 oz pur e alcohol) Sex and Gender Information Value Date Recorded Sex Assigned at Not on file 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
--- OUTSIDE RECORDS SUMMARY | 2024-02-10 01:53 | XMS_ITS | Encounter Summary ---
Author Organization [facility] Address [address] [facility] [address] [place] [address] Care Team Providers Care Manager Material Name Role Phone Rickey Do MD Primary Care Provider [phone] Reason for Visit * Reason Onset Date Comments Ernestina-med refill request 08/25/2017 Encounter Details Date Type Department Care Team (Late st Contact Info) Description 08/25/2017 Telephone [facility] [address] 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 100 each 3 08/25/2017 02/15/2018 documented in this encounter Miscellaneous Notes * Telephone Encounter - Adonay Wong RN - 08/25/2017 12:46 PM CDT Renewed to wrong pharmacy last month * Telephone Encounter - Ghada So - 08/25/2017 12:39 PM CDT Medication Refill: Patient's Last Visit: 5.7.18 Patient's Next Visit: 8.6.18 Medications: Diabetic Pen needles Preferred Pharmacy: [facility] Caller's Callback #: [phone] Additional Comments: Patient requesting a refill on med listed. Patient is almost out. Sending highpriority. documented in this encounter Plan of Treatment Not on file documented as of this encounter Visit Diagnoses Not on filedocumented in this encounter Discontinued Medications Medication Sig Discontinue Reason Start Date End Da te pen needle, diabetic (PEN NEEDLE) 31 gauge x 1/4 needle Inject 1 pen under the skin daily. Reorder 07/27/2017 08/25/2017 documented as of this encounter Care Teams Manager Material Relationship Specialty Start Date End Date Rickey Do MD PCP - General 05/20/16 11/08/20 documented as of this encounter
--- OUTSIDE RECORDS SUMMARY | 2024-02-10 01:53 | XMS_ITS | Encounter Summary ---
Author Organization [facility] Address [address] [facility] [address] [place] [address] Care Team Providers Care Steam Clothes Press Operator Name Role Phone Rickey Do MD Primary Care Provider Reason for Visit * Reason Onset Date Comments Ernestina-Medical Question 03/07/2017 Encounter Details Date Type Department Care Team (Late st Contact Info) Description 03/07/2017 Telephone [facility] [address] [facility] [address] [place] [address] Rickey Do MD [address] [facility] [address] [place] [address] Ernestina-Medical Question Social History Tobacco Use Types Packs/Day Years Used Date Smoking Tobacco: Former Smokeless Tobacco: Never Comments:Smoking History Pac ks/day: 1 Packs Alcohol Use Standard Drinks/Week Comments Yes 0 (1 standard drink = 0.6 oz pur e alcohol) Sex and Gender Information Value Date Recorded Sex Assigned at Not on file Legal Sex Male 11:37 AM CANCER SPEC Gender Identity Not on file Sexual Orientation Not on file documented as of this encounter Miscellaneous Notes * Telephone Encounter - Mary Lou Avilez MA - 03/08/2017 3:37 PM CST Spoke to pt and relayed message. Pt understood. ER SPEC * Telephone Encounter - Xena Valencia NP - 03/08/2017 9:57 AM CANCER SPEC Only take half the night before and if eats well later in the day may take full dose the night after No meal time insulin and no oral pills for diabetes 2 days prior to the test and 2 days after the test ER SPEC * Telephone Encounter - Mary Lou Avilez MA - 03/07/2017 11:06 AM CANCER SPEC Please advise. ER SPEC * Telephone Encounter - Ghada So - 03/07/2017 10:21 AM CANCER SPEC Patient calling to get instructions on what to do regarding his insulin for his upcoming colonoscopy. He is on #16 on the pen,. Please assist. ER SPEC documented in this encounter Plan of Treatment Not on file documented as of this encounter Visit Diagnoses Not on filedocumented in this encounter Care Teams Steam Clothes Press Operator Relationship Specialty Start Date End Date Rickey Do MD PCP - General 05/20/16 11/08/20 documented as of this encounter
--- OUTSIDE RECORDS SUMMARY | 2024-02-10 01:53 | XMS_ITS | Encounter Summary ---
Author Organization [facility] Address [address] [facility] [address] [place] [address] Care Team Providers Care Personal Fitness Trainer Name Role Phone Rickey Do MD Primary Care Provider [phone] Encounter Details Date Type Department Care Team (Late st Contact Info) Description 09/05/2017 Orders Only [facility] [address] [facility] [address] [place] [phone] Xena Valencia, ADMINISTRATIVE SERVICES SPECIALIST [address] [facility] [address] [place], [place] [id number] Social History Tobacco Use Types Packs/Day Years Used Date Smoking Tobacco: Former Smokeless Tobacco: Never Comments:Smoking History Pac ks/day: 1 Packs Alcohol Use Standard Drinks/Week Comments Yes 0 (1 standard drink = 0.6 oz pur e alcohol) Sex and Gender Information Value Date Recorded Sex Assigned at Not on file 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 30 tablet 1 09/05/2017 09/25/2017 irbesartan-hydroch lorothiazide (AVALIDE) 150-12.5 mg per tablet Take 1 tablet by mouth daily. 90 tablet 3 09/05/2017 09/05/2017 documented in this encounter Plan of Treatment Not on file documented as of this encounter Visit Diagnoses Not on filedocumented in this encounter Discontinued Medications Medication Sig Discontinue Reason Start Date End Da te valsartan-hydrochlorothi azide (DIOVAN-HCT) 320-25 mg per tablet TAKE 1 TABLET BY MOUTH DAILY 06/15/2017 09/05/2017 irbesartan-hydrochloroth iazide (AVALIDE) 150-12.5 mg per tablet Take 1 tablet by mouth daily. Reorder 09/05/2017 09/05/2017 documented as of this encounter Care Teams Personal Fitness Trainer Relationship Specialty Start Date End Date Rickey Do MD PCP - General 05/20/16 11/08/20 documented as of this encounter
--- OUTSIDE RECORDS SUMMARY | 2024-02-10 01:53 | XMS_ITS | Encounter Summary ---
Author Organization [facility] Address [address] [facility] [address] [place] [address] Care Team Providers Care Diving Instructor Name Role Phone Rickey Do MD Primary Care Provider [phone] Encounter Details Date Type Department Care Team (Late st Contact Info) Description 02/01/2017 Orders Only [facility] [address] [facility] [address] [place] [address] Lucia Figueroa MA Hx of colonic polyps (Primary Dx) Social History Tobacco Use Types Packs/Day Years Used Date Smoking Tobacco: Former Smokeless Tobacco: Never Comments:Smoking History Pac ks/day: 1 Packs Alcohol Use Standard Drinks/Week Comments Yes 0 (1 standard drink = 0.6 oz pur e alcohol) Sex and Gender Information Value Date Recorded Sex Assigned at Not on file 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 4000 mL 02/01/2017 8 magnesium citrate solution Take 296 mL by mouth once for 1 dose. 10 oz. Bottle (any flavor) to drink 5 hours prior to appointment arrival time. 296 mL 02/01/2017 7 documented in this encounter Plan of Treatment Not on file documented as of this encounter Visit Diagnoses Diagnosis Hx of colonic polyps- Primary Personal history of colonic polyps documented in this encounter Care Teams Diving Instructor Relationship Specialty Start Date End Date Rickey Do MD PCP - General 05/20/16 11/08/20 documented as of this encounter
--- OUTSIDE RECORDS SUMMARY | 2024-02-10 01:53 | XMS_ITS | Encounter Summary ---
Author Organization [facility] Medical Group Address [address] [address] Care Team Providers Care Licensed Embalmer Supervisor Name Role Phone Rickey Do MD Primary Care Provider [phone] Reason for Visit * Reason Comments Diabetes Encounter Details Date Type Department Care Team (Late st Contact Info) Description 03/27/2017 9:30 AM BAR PILOT Office Visit [facility] [address] [facility] [address] [place] [address] Xena Valencia, TOOTH INSPECTOR [address] [place] [address] Type 2 diabetes mellitus with diabetic mononeuropathy, with long-term current use of insulin (CMS/HCC) (Primary Dx); Type 2 diabetes mellitus with other circulatory complication, 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 (CMS/HCC); Peripheral neuropathy due to disorder of metabolism (CMS/HCC); 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 2 diabetes mellitus (CMS/HCC); Benign hypertension, endocrine; Pearl angioma; BMI 35.0-35.9,adult Social History Tobacco Use Types Packs/Day Years Used Date Smoking Tobacco: Former Smokeless Tobacco: Never Comments:Smoking History Pac ks/day: 1 Packs Alcohol Use Standard Drinks/Week Comments Yes 0 (1 standard drink = 0.6 oz pur e alcohol) Sex and Gender Information Value Date Recorded Sex Assigned at Not on file Legal Sex Male 11:37 AM BAR PILOT Gender Identity Not on file Sexual Orientation Not on file documented as of this encounter Last Filed Vital Signs Vital Sign Reading Time Taken Comments Blood Pressure 136/60 03/27/2017 9:43 AM BAR PILOT Pulse 74 03/27/2017 9:43 AM BAR PILOT Temperature - - Respiratory Rate 16 03/27/2017 9:43 AM BAR PILOT Oxygen Saturation 96% 03/27/2017 9:43 AM BAR PILOT Inhaled Oxygen Concentration - - Weight 116.1 kg (256 lb) 03/27/2017 9:43 AM BAR PILOT Height 180.3 cm (5' 11 ) 03/27/2017 9:43 AM BAR PILOT Body Mass Index 35.7 03/27/2017 9:43 AM BAR PILOT documented in this encounter Ordered Prescriptions Prescription Sig Dispense Quantity Refills Last Filled Start Date End Date insulin degludec-liragluti de 100 unit-3.6 mg /mL (3 mL) insulin penIndications:Typ e 2 diabetes mellitus with diabetic mononeuropathy, with long-term current use of insulin (HCC) Inject 24 Units under the skin daily. 9 Syringe 3 03/27/2017 06/26/2017 documented in this encounter Progress Notes * Xena Valencia, TOOTH INSPECTOR - 03/27/2017 9:30 AM CST Subjective/Objective Patient ID: Ayden Santos is a 71 y.o. male. Chief Complaint Diabetes 71 yo cm present here for evaluation and management of chronic disease smbg fasting 134-173 prelunch 137-206 presupper 124-215 taking xultophy 18 u denies hypoglycemia htn denies cp sob le edema pnd is walking Lipid taking meds as rx denies dark urine myalgia weakness Last eye exam 02/2017 no dm change Current Outpatient Prescriptions: ??? acyclovir (ZOVIRAX) 400 mg tablet, Take 1 tablet (400 mg total) by mouth 2 (two) times a day., Disp: 180 tablet, Rfl: 1 ??? aspirin (BABY ASPIRIN) 81 mg chewable [...] daily., Disp: 90 tablet, Rfl: 3 ??? FLUZONE HIGH-DOSE , PF, 180 mcg/0.5 mL syringe, Inject 0.5 mL into the shoulder, thigh, or buttocks once., Disp: , Rfl: ??? insulin degludec-liraglutide 100 unit-3.6 mg /mL (3 mL) insulin pen, Inject 24 Units under the skin daily., Disp: 9 [...] 15 min, prompt medical attention is recommended (Patient not taking: Reported on 02/21/2017 ), Disp: 1, Rfl: 0 ??? ONETOUCH VERIO [...] Reactions ??? Royce Inhibitors Cough Reaction: Cough, ??? Amlodipine Edema Reaction: Edema, ??? Farxiga [Dapagliflozin] Diarrhea Immunization History Administered [...] Down, Depressed, or Hopeless: Not at all Review of Systems Constitutional: Negative. Negative for [...] normal reflexes. A sensory deficit is present. He exhibits normal muscle tone. Coordination normal. Skin: Skin is warm and dry. Capillary refill takes less than 2 seconds. No rash noted. He is not diaphoretic. No erythema. No pallor. Psychiatric: He has a normal mood and affect. His behavior is normal. Judgment and thought content normal. Nursing note and vitals reviewed. Diabetic foot exam: Left: Pulses Dorsalis Pedis: present Posterior Tibial: present Reflexes 2+ Vibratory sensation diminished Proprioception diminished Sharp/dull discrimination diminished Filament test present Right: Pulses Dorsalis Pedis: present Posterior Tibial: present Reflexes 2+ Vibratory sensation diminished Proprioception diminished Sharp/dull discrimination diminished Filament test present Assessment/Plan Diagnoses and all orders for this visit: Type 2 diabetes mellitus with diabetic mononeuropathy, with long-term current use of insulin ([facility]) (Primary) Assessment & Plan: Stable Lab pending [...] socks to avoid skin injury Orders: - Comprehensive metabolic panel; Future - Lipid panel; Future - Microalbumin, urine, random; Future - Hemoglobin A1c; Future Type 2 diabetes mellitus with other circulatory complication, unspecified custodial insulin use status ([facility]) Assessment & Plan: Stable Lab pending [...] shoes without socks to avoid skin injury Peripheral neuropathy due to disorder of metabolism Assessment & Plan: Do not go barefoot Wear supportive shoes and sock Never wear shoes without socks Check feet nightly Call for any change Fu podiatry 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 2 diabetes mellitus ([facility]) Assessment & Plan: Lipid abnormalities are unchanged. Nutritional counseling was provided. and Pharmacotherapy as ordered. Lipids will be reassessed in 3 months see orders. Benign hypertension, endocrine Assessment & Plan: Hypertension is unchanged. Continue [...] sun screen hat and sleeves See orders Pearl angioma - Ambulatory referral to Dermatology; Future BMI 35.0-35.9,adult Assessment & Plan: BMI Follow-up includes: nutrition counseling, exercise counseling and education provided. Other orders - insulin degludec-liraglutide 100 unit-3.6 mg /mL (3 mL) insulin pen; Inject 24 Units under the skin daily. - Microalbumin, urine, random PILOT * Xena Valencia NP - 03/27/2017 9:30 AM CST Call pt not enough improvement with diabetes increase the xultophy 4 units a day stick to diet and walk PILOT * Xena Valencia NP - 03/27/2017 9:30 AM CST Yes increasing 4u would mean that PILOT documented in this encounter Miscellaneous Notes * Assessment & Plan Note - Xena Valencia NP - 04/24/2017 7:47 AM CSTAssociated Problem(s): Type 2 diabetes mellitus with [...] shoes without socks to avoid skin injury PILOT * Assessment & Plan Note - Xena Valencia NP - 04/24/2017 7:44 AM CSTAssociated Problem(s): Type 2 diabetes mellitus with [...] shoes without socks to avoid skin injury PILOT * Assessment & Plan Note - Xena Valencia NP - 04/24/2017 7:44 AM CSTAssociated Problem(s): 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) (Resolved 02/07/2019) Do not go barefoot Wear supportive shoes and sock Never wear shoes without socks Check feet nightly Call for any change Fu podiatry PILOT * Assessment & Plan Note - Xena Valencia NP - 04/24/2017 7:44 AM CSTAssociated Problem(s): 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 Nutritional counseling was provided. and Pharmacotherapy as ordered. Lipids will be reassessed in 3 months see orders. PILOT * Assessment & Plan Note - Xena Valencia NP - 04/24/2017 7:43 AM CSTAssociated Problem(s): Hypertensive heart disease without heart [...] sun screen hat and sleeves See orders PILOT * Assessment & Plan Note - Elsi Villaseñor MA - 03/27/2017 9:43 AM BAR PILOT Associated Problem(s): Class 2 severe obesity due to excess calories with serious comorbidity and body mass index (BMI) of 37.0 to 37.9 in adult ([facility]) BMI Follow-up includes: nutrition counseling, exercise counseling and education provided. PILOT documented in this encounter Plan of Treatment Scheduled Orders Name Type Priority Associated Diagnoses Orde r Schedule Microalbumin, urine, random Lab Routine Type 2 diabetes mellitus with diabetic mononeuropathy, with long-term current use of insulin ([facility]) Expected: 03/27/2017, Expires: 03/27/2018 documented as of this encounter Procedures Procedure Name Priority Date/Time Associated Diagnosis Comments ALBUMIN, RANDOM URINE WITHOUT CREATININE Routine 03/27/2017 10:18 AM BAR PILOT Type 2 diabetes mellitus with diabetic mononeuropathy, with long-term current use of insulin ([facility]) HEMOGLOBIN A1C Routine 03/27/2017 10:18 AM BAR PILOT Type 2 diabetes mellitus with diabetic mononeuropathy, with long-term current use of insulin ([facility]) LIPID PANEL Routine 03/27/2017 10:18 AM BAR PILOT Type 2 diabetes mellitus with diabetic mononeuropathy, with long-term current use of insulin ([facility]) COMPREHENSIVE METABOLIC PANEL Routine 03/27/2017 10:18 AM BAR PILOT Type 2 diabetes mellitus with diabetic mononeuropathy, with long-term current use of insulin ([facility]) DIABETES EYE EXAM Routine 03/20/2017 Type 2 diabetes mellitus with diabetic mononeuropathy, with long-term current use of insulin ([facility]) documented in this encounter Results * Microalbumin, urine, random (03/27/2017 10:18 AM BAR PILOT) Microalbumin, ur 51.3 Not Estab. ug/mL [facility] - 01 03/27/2017 10:1 8 AM BAR PILOT 03/27/2017 Narrative [facility] - 03/28/2017 9:18 AM BAR PILOT Performed at: ??01 - [facility] [address] ??[id number] Ferry Operator: Woodrow Michel PhD, Phone: ??[phone] us Xena Valencia NP LAB URINE ORDERABLES Final Result [facility] - 01 * (ABNORMAL) Hemoglobin A1c (03/27/2017 10:18 AM BAR PILOT) Hgb A1C 7.4(H) 4.8 - 5.6 % [facility] - 01 Comment: ? Pre-diabetes: 5.7 - 6.4 ? Diabetes: >6.4 ? Glycemic control for adults with diabetes: <7.0 Blood specimen (specimen) 03/27/2017 10:18 AM BAR PILOT 03/27/2017 Narrative [facility] - 03/28/2017 9:18 AM BAR PILOT Performed at: ??01 - [facility] [address] ??[id number] Ferry Operator: Woodrow Michel PhD, Phone: ??[phone] Xena Valencia NP LAB BLOOD ORDERABLES Final Result Performing Organization Address [facility] de Phone Number [facility] - * (ABNORMAL) Lipid panel (03/27/2017 10:18 AM BAR PILOT) Cholesterol 133 100 - 199 mg/dL [facility] - 01 Triglycerides 147 0 - 149 mg/dL [facility] - 01 HDL Cholesterol 39(L) >39 mg/dL [facility] - 01 VLDL 29 5 - 40 mg/dL [facility] - 01 LDL, calculated 65 0 - 99 mg/dL [facility] - 01 Blood specimen (specimen) 03/27/2017 10:18 AM BAR PILOT 03/27/2017 Narrative [facility] - 03/28/2017 9:18 AM BAR PILOT Performed at: ??01 - [facility] [address] ??[id number] Ferry Operator: Woodrow Michel PhD, Phone: ??[phone] Xena Valencia NP LAB BLOOD ORDERABLES Final Result Performing Organization Address [facility] de Phone Number [facility] - * (ABNORMAL) Comprehensive metabolic panel (03/27/2017 10:18 AM BAR PILOT) Glucose 165(H) 65 - 99 mg/dL [facility] - 01 BUN 25 8 - 27 mg/dL [facility] - 01 Creatinine, Serum 1.23 0.76 - 1.27 mg/dL [facility] - 01 eGFR If NonAfricn Am 58(L) >59 mL/min/1.7 3 [facility] - 01 eGFR If Africn Am 67 >59 mL/min/1.7 3 [facility] - 01 BUN/creat ratio 20 10 - 24 [facility] - 01 Sodium 140 134 - 144 mmol/L [facility] - 01 Potassium, sr 4.5 3.5 - 5.2 mmol/L [facility] - 01 Chloride 101 96 - 106 mmol/L [facility] - 01 CO2 21 18 - 29 mmol/L [facility] - 01 Calcium 9.9 8.6 - 10.2 mg/dL [facility] - 01 Protein, sr 7.5 6.0 - 8.5 g/dL [facility] - 01 Albumin 4.3 3.5 - 4.8 g/dL [facility] - 01 Globulin 3.2 1.5 - 4.5 g/dL [facility] - 01 Alb/glob ratio 1.3 1.2 - 2.2 [facility] - 01 Bilirubin, Total 0.4 0.0 - 1.2 mg/dL [facility] - 01 Alk phos 70 39 - 117 IU/L [facility] - 01 AST 20 0 - 40 IU/L [facility] - 01 ALT 19 0 - 44 IU/L [facility] - 01 Blood specimen (specimen) 03/27/2017 10:18 AM BAR PILOT 03/27/2017 Narrative [facility] - 03/28/2017 9:18 AM BAR PILOT Performed at: ??01 - [facility] [address] ??[id number] Ferry Operator: Woodrow Michel PhD, Phone: ??[phone] Xena Valencia NP LAB BLOOD ORDERABLES Final Result Performing Organization Address City/State/[facility] Co de Phone Number [facility] - 01 * DIABETES EYE EXAM (03/20/2017) Diabetic Eye Exam Normal us Historical Provider MD HEALTH MAINTENANCE Final Result documented in this encounter Visit Diagnoses Diagnosis Type 2 diabetes mellitus with diabetic mononeuropathy, with long-term current use of insulin (HCC)- Primary Type 2 diabetes mellitus with other circulatory complication, unspecified custodial insulin use status 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) 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) Benign hypertension, endocrine Other secondary hypertension, benign Pearl angioma BMI 35.0-35.9,adult documented in this encounter Care Teams Licensed Embalmer Supervisor Relationship Specialty Start Date End Date Rickey Do MD PCP - General 05/20/16 11/08/20 documented as of this encounter
--- OUTSIDE RECORDS SUMMARY | 2024-02-10 01:53 | XMS_ITS | Encounter Summary ---
Author Organization [facility] Address [address] [facility] [address] [place] [address] Care Team Providers Care Debone Processing Supervisor Name Role Phone Rickey Do MD Primary Care Provider Reason for Visit * Reason Onset Date Comments Dr. Do Medical Question 07/06/2017 Encounter Details Date Type Department Care Team (Late st Contact Info) Description 07/06/2017 Telephone [facility] [address] [facility] [address] [place] [address] Rickey Do MD [address] [facility] [address] [facility] [place] [phone] Dr. Do Medical Question Social History Tobacco Use Types Packs/Day Years Used Date Smoking Tobacco: Former Smokeless Tobacco: Never Comments:Smoking History Pac ks/day: 1 Packs Alcohol Use Standard Drinks/Week Comments Yes 0 (1 standard drink = 0.6 oz pur e alcohol) Sex and Gender Information Value Date Recorded Sex Assigned at Not on file Legal Sex Male 11:37 AM BANKING OFFICER Gender Identity Not on file Sexual Orientation Not on file documented as of this encounter Miscellaneous Notes * Telephone Encounter - Mary Lou Avilez MA - 07/06/2017 12:21 PM CDT Pt not signed up for My Chart. Instructed pt to mail blood sugar results to office. Advised pt to sign up for My Chart at next ov. Pt agreed. * Telephone Encounter - Xena Valencia NP - 07/06/2017 11:01 AM CDT Have pt enter smbg on my chart * Telephone Encounter - Patricia Jasmine - 07/06/2017 10:53 AM CDT Patient called to inform his blood glucose to Xena as advise: blood glucose in morning and afternoon are running in 130's. Patient is taking 30 units of insulin. Please advise documented in this encounter Plan of Treatment Not on file documented as of this encounter Visit Diagnoses Not on filedocumented in this encounter Care Teams Debone Processing Supervisor Relationship Specialty Start Date End Date Rickey Do MD PCP - General 05/20/16 11/08/20 documented as of this encounter
--- OUTSIDE RECORDS SUMMARY | 2024-02-10 01:53 | XMS_ITS | Encounter Summary ---
Author Organization [facility] Healthcare Address [address] [place] [address] Care Team Providers [employer] Registrar Name Role Phone Rickey Do MD Primary Care Provider [phone] Encounter Details Date Type Department Care Team (Latest Contact Info) Description 03/10/2017 8:25 AM MEDIA ACCOUNT EXECUTIVE - 03/10/2017 11:10 AM [facility] Hospital Encounter [facility] OP INTERIM [phone] Peter Marroquin MD [address] [facility] [address] [place], [place] [id number] Discharge Disposition: Discharge to home or self care Social History Tobacco Use Types Packs/Day Years Used Date Smoking Tobacco: Former Smokeless Tobacco: Never Comments:Smoking History Pac ks/day: 1 Packs Alcohol Use Standard Drinks/Week Comments Yes 0 (1 standard drink = 0.6 oz pur e alcohol) Sex and Gender Information Value Date Recorded Sex Assigned at Not on file Legal Sex Male 11:37 AM MEDIA ACCOUNT EXECUTIVE Gender Identity Not on file Sexual Orientation Not on file documented as of this encounter Medications at Time of Discharge coenzyme Q10 (COQ-10) 100 mg capsule take 3 by Oral route every evening 0 0 04/11/2016 insulin degludec-liragluti de (XULTOPHY 100/3.6) 100 unit-3.6 mg /mL (3 mL) insulin penIndications:typ e 2 diabetes mellitus,has hypoglycemia and is already on victoza please disp Inject 17 Units under the skin daily. 3 Syringe 1 02/21/2017 8 acyclovir (ZOVIRAX) 400 mg tablet Take 1 tablet (400 mg total) by mouth 2 (two) times a day. 180 tablet 1 02/21/2017 8 aspirin (BABY ASPIRIN) 81 mg chewable tablet chew 1 tablet (81MG) by oral route every day 0 12/12/2011 9 cholecalciferol (VITAMIN D3) 1,000 unit capsule one daily 0 04/11/2016 9 empagliflozin-metf ormin 25-1,000 mg tablet, IR & ER, biphasic 24hr Take 1 tablet by mouth daily. 90 tablet 3 10/14/2016 8 FLUZONE HIGH-DOSE 2016-18, PF, 180 mcg/0.5 mL syringeIndications :Type 2 diabetes mellitus with other circulatory complication, unspecified rodent exterminator insulin use status Inject 0.5 mL into the shoulder, thigh, or buttocks once. 11/21/2016 8 lancets (onetouch ultrasoft) misc test by by finger stick route 3 times every day 300 8 06/30/2011 9 metoprolol (LOPRESSOR) 50 mg tablet Take 1 tablet (50 mg total) by mouth 3 (three) times a day. Take 2 tablet at lunch and one tablet at bedtime 270 tablet 3 11/01/2016 8 nitroglycerin (NITROSTAT) 0.[address] 1 tablet by sublingual route at the 1st sign of attack; may repeat every 5 min until relief; if pain persists after 3 tablets in 15 min, prompt medical attention is recommended 1 0 02/27/2015 9 ONETOUCH VERIO strip TEST ONCE A DAY 100 each 3 01/17/2017 8 pen needle, diabetic (PEN NEEDLE) 31 gauge x 1/4 needle Inject 1 pen under the skin daily. 100 each 3 09/28/2016 8 simvastatin (ZOCOR) 20 mg tablet Take 1 tablet (20 mg total) by mouth nightly. 90 tablet 3 02/21/2017 9 valsartan-hydrochl orothiazide (DIOVAN-HCT) 320-25 mg per tablet TAKE 1 TABLET BY MOUTH DAILY 90 tablet 2 12/27/2016 8 documented as of this encounter Discharge Disposition Disposition Code Departure Means Destination Discharge to home or self care documented in this encounter Plan of Treatment Not on file documented as of this encounter Procedures Procedure Name Priority Date/Time Associated Diagnosis Comments GLUCOSE POC Routine 03/10/2017 10:42 AM MEDIA ACCOUNT EXECUTIVE SURGICAL PATHOLOGY Routine 03/10/2017 10 :06 AM MEDIA ACCOUNT EXECUTIVE GLUCOSE POC Routine 03/10/2017 9:21 AM MEDIA ACCOUNT EXECUTIVE COLONOSCOPY REPORT 03/10/2017 DISCHARGE LABORATORY CUMULATIVE REPORT 03/10/2017 12:00 AM MEDIA ACCOUNT EXECUTIVE SURGICAL PATHOLOGY 03/10/2017 12 :00 AM MEDIA ACCOUNT EXECUTIVE documented in this encounter Results * Glucose POC (03/10/2017 10:42 AM MEDIA ACCOUNT EXECUTIVE) Glucose, POC 174 70 - 199 mg/dL TAYLOR ZUNIGA Comment: Interpretive Data Glucose is assumed to be non-fasting. Fasting Glucose reference ranges are: 0 - 150 years: ??70 mg/dL - 99 mg/dL Current interpretive data was last revised on 2013. Blood specimen (specimen) 03/10/2017 10:42 AM MEDIA ACCOUNT EXECUTIVE 03/10/2017 10:42 AM MEDIA ACCOUNT EXECUTIVE Narrative TAYLOR ZUNIGA - 03/10/2017 10:57 AM MEDIA ACCOUNT EXECUTIVE us Peter Marroquin MD POINT OF CARE TEST ORDERABLES Final Result TAYLOR ZUNIGA [id number] [facility]. [place] [address] * Surgical pathology (03/10/2017 10:06 AM MEDIA ACCOUNT EXECUTIVE) 03/10/2017 10:0 6 AM MEDIA ACCOUNT EXECUTIVE 03/10/2017 12:43 PM MEDIA ACCOUNT EXECUTIVE Narrative 03/13/2017 11:27 AM MEDIA ACCOUNT EXECUTIVE [facility] [place] [address] SURGICAL PATHOLOGY REPORT FINAL Patient Name: AYDEN SANTOS ? Address: summer ??Service: ??Gastro ??[place], [place] ??[id number] ??Location: ??[facility] Taken: 03/10/2017 Gender: M ?? Received: 03/10/2017 : 1945 (Age: 71) ??Hospital #: [id number] Accessioned: 03/10/2017 ?Patient Type: ??WC SDS Reported: 03/13/2017 ?Client ? [facility] ? Physician(s): Sara Hernandez M.D. ? Diagnosis: A. ??Colon, hepatic flexure, polypectomy ? - Fragments of tubular adenoma B. ??Colon, ascending, polypectomy ? - Mucosal lymphoid aggregate C. ??Colon, transverse, polypectomy ? - Mucosal lymphoid aggregates D. ??Colon, rectum, polypectomy ? - Hyperplastic polyp fvw/03/13/2017 11:27 By this signature, I attest that the above diagnosis is based upon my personal examination of the slides(and/or other material indicated in the diagnosis). ?? Lynn Mccain M.D. ??Report Electronically Reviewed and Signed Out By ??Lynn Mccain M.D. 03/13/2017 11:27:42 Microscopic Description and Comment: Microscopic examination substantiates the above cited diagnosis. Microscopic slide review and interpretation for this case was performed at the [facility], ??[address] [place] ??[id number] ?? CLIA # [id number] ? History: The patient is a 71-year-old man who presents for high risk colon cancer surveillance with a personal history of adenomatous polyps. ??Operative procedure: Colonoscopy; last colonoscopy February 2010. ??Operative findings: One, 3 mm polyp in the rectum, resected and retrieved. ??Diverticulosis in the sigmoid colon. ??One, 3 mm polyp in the transverse colon, resected and retrieved. ??One, 10 mm polyp at the hepatic flexure, resected and retrieved, clip was placed. ??One, 2 mm polyp in the ascending colon, resected and retrieved. ??The examination was otherwise normal. Specimen(s) Received: A: Hepatic flexure B: Ascending colon C: Transverse colon D: Rectum Gross Description: The specimens are received in four formalin filled containers each labeled with the patient's name. A. ??The first container is received labeled with hepatic flexure and consists of multiple herrera-pink irregular fragment(s) of soft tissue measuring 1.6 x 1.3 x 0.2 cm in aggregate. ??Labeled A1. ??Jar 0. B. ??The second container is received labeled with ascending polyp and consists of a single herrera-pink irregular fragment(s) of soft tissue measuring 0.2 x 0.2 x 0.2 cm. ??Labeled B1. ??Jar 0. C. ??The third container is received labeled with transverse and consists of a single herrera-pink irregular fragment(s) of soft tissue measuring 0.3 x 0.2 x 0.2 cm. ??Labeled C1. ??Jar 0. D. ??The fourth container is received labeled with rectal polyp and consists of a single herrera-pink irregular fragment(s) of soft tissue measuring 0.3 x 0.2 x 0.2 cm. ??Labeled D1. ??Jar 0. lg03/10/2017 13:53 ?Bhakti Renteria MS, PA (ASCP) ? By this signature, I attest that the above diagnosis is based upon my personal examination of the slides(and/or other material). ?? Surgical Pathology report is available electronically in Clinical Desktop. The performance characteristics of some immunohistochemical stains, fluorescence in-situ hybridization tests and immunophenotyping by flow cytometry cited in this report (if any) were determined by the Surgical Pathology Department at [facility] as part of an ongoing quality control inspector program and in compliance with federally mandated [...] performance characteristics determined by the Surgical Pathology Department of [facility]. ??It has not been cleared or approved by the U. S. Food and Drug Administration. Peter Marroquin MD LAB PATHOLOGY ORDERABLES Final Result * Glucose POC (03/10/2017 9:21 AM MEDIA ACCOUNT EXECUTIVE) Glucose, POC 162 70 - 199 mg/dL TAYLOR ZUNIGA Comment: Interpretive Data Glucose is assumed to be non-fasting. Fasting Glucose reference ranges are: 0 - 150 years: ??70 mg/dL - 99 mg/dL Current interpretive data was last revised on 2013. Blood specimen (specimen) 03/10/2017 9:21 AM MEDIA ACCOUNT EXECUTIVE 03/10/2017 9:21 AM MEDIA ACCOUNT EXECUTIVE Narrative TAYLOR ZUNIGA - 03/10/2017 9:23 AM MEDIA ACCOUNT EXECUTIVE Peter Marroquin MD POINT OF CARE TEST ORDERABLES Final Result TAYLOR [facility] [id number] [facility]. [place] [address] * SURGICAL PATHOLOGY (03/10/2017 12:00 AM MEDIA ACCOUNT EXECUTIVE) Narrative 03/10/2017 12:00 AM MEDIA ACCOUNT EXECUTIVE Ordered by an unspecified provider. Historical Provider LAB PATHOLOGY ORDERABLES Final Result * DISCHARGE LABORATORY CUMULATIVE REPORT (03/10/2017 12:00 AM MEDIA ACCOUNT EXECUTIVE) Narrative 03/10/2017 12:00 AM MEDIA ACCOUNT EXECUTIVE Ordered by an unspecified provider. Historical Provider LAB BLOOD ORDERABLES Anya l Result * COLONOSCOPY REPORT (03/10/2017) Anatomical Region Laterality Modality Other Provider Scanning GI PROCEDURE ORDERABLES Edited Result - Final documented in this encounter Visit Diagnoses Not on filedocumented in this encounter Care Teams [employer] Registrar Relationship Specialty Start Date End Date Rickey Do MD PCP - General 05/20/16 11/08/20 documented as of this encounter
--- OUTSIDE RECORDS SUMMARY | 2024-02-10 01:53 | XMS_ITS | Encounter Summary ---
Author Organization [facility] Medical Group Address [address] [address] [place] [address] Care Team Providers Care Mandrel Puller Name Role Phone Rickey Do MD Primary Care Provider [phone] Reason for Visit * Reason Comments Flank Pain Encounter Details Date Type Department Care Team (Late st Contact Info) Description 11/27/2017 2:45 PM CDT Office Visit [facility] [address] [place] [phone] Rickey Do MD [address] [place] [address] Flank pain (Primary Dx); Type 2 diabetes mellitus with diabetic mononeuropathy, with long-term current use of insulin (CMS/HCC); Hypertension associated with diabetes (CMS/HCC); 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 2 diabetes mellitus (CMS/HCC); BMI 35.0-35.9,adult Social History Tobacco Use Types Packs/Day Years Used Date Smoking Tobacco: Former Cigarettes 1 15 Smokeless Tobacco: Never Comments:Smoking History Pac ks/day: 1 Packs Alcohol Use Standard Drinks/Week Comments Yes 0 (1 standard drink = 0.6 oz pur e alcohol) Sex and Gender Information Value Date Recorded Sex Assigned at Not on file Legal Sex Male 11:37 AM 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 CASE 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 Gender Identity Not on file Sexual Orientation Not on file 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 Not on file documented as of this encounter Last Filed Vital Signs Vital Sign Reading Time Taken Comments Blood Pressure 138/60 11/27/2017 2:38 PM CDT Pulse 83 11/27/2017 2:38 PM CDT Temperature - - Respiratory Rate 16 11/27/2017 2:38 PM CDT Oxygen Saturation 93% 11/27/2017 2:38 PM CDT Inhaled Oxygen Concentration - - Weight 117 kg (258 lb) 11/27/2017 2:38 PM CDT Height 180.3 cm (5' 11 ) 11/27/2017 2:38 PM CDT Body Mass Index 35.98 11/27/2017 2:38 PM CDT documented in this encounter Patient Instructions * Patient Instructions* Rickey Do MD - 11/27/2017 2:45 PM CDT Patient Education Heart Healthy Diet SOLDER TECHNICIAN: A heart healthy diet is an eating plan low in total fat, unhealthy fats, and sodium (salt). A hearthealthy diet helps decrease your risk for heart disease and stroke. Limit the amount of fat you eatto 25% to 35% of your total daily calories. Limit sodium to less than 2,300 mg each day. Healthy fats: Healthy fats can help improve cholesterol levels. The risk for heart disease is decreased when cholesterol levels are normal. Choose healthy fats, such as the following: ?? Unsaturated fat is found in foods such as soybean, canola, olive, and sunflower oils. It is alsofound in soft tub margarine that is made with liquid vegetable oil. ?? Salem-3 fat is found in certain fish, such as salmon, tuna, and trout, and in walnuts and flaxseed. Unhealthy fats: Unhealthy fats can cause unhealthy cholesterol levels in your blood and increase your risk of heart disease. Limit unhealthy fats, such as the following: ?? Cholesterol is found in animal foods, such as eggs and lobster, and in dairy products made from whole milk. Limit cholesterol to less than 300 milligrams (mg) each day. You may need to limit cholesterol to 200 mg each day if you have heart disease. ?? Saturated fat is found in fatty meats, such as sethi and hamburger. It is also found in chicken or turkey skin, whole milk, and butter. Limit saturated fat to less than 7% of your total daily calories. ?? Trans fat is found in packaged foods, such as potato chips and cookies. It is also in hard margarine, some fried foods, and shortening. Avoid trans fats as much as possible. Heart healthy foods and drinks to include: Ask your dietitian or healthcare provider how many servings to have from each of the following food groups: ?? Whole-grain breads, cereals, and pastas, brown rice, and low-fat, low-sodium crackers and chips ?? Fruits, vegetables, and juices with no added salt or are canned in light syrup or fruit juice ?? Low-fat dairy products , such as nonfat (skim) or 1% milk, cheese, yogurt, and cottage cheese ?? Meats and proteins , such as lean beef, skinless chicken, legumes, soy products, egg whites, andnuts Foods and drinks to limit or avoid: Ask your dietitian or healthcare provider about these and otherfoods that are high in unhealthy fat and sodium: ?? Snack or packaged foods , such as frozen dinners, cookies, macaroni and cheese, and cereals withmore than 300 mg of sodium per serving ?? Canned or dry mixes for cakes, soups, sauces, or gravies ?? Vegetables that are powdered, such as instant potatoes, are packaged with sauces, or are canned (unless they are low sodium) ?? Whole or 2% milk, cream cheese, or sour cream, and cheeses with more than 140 mg of sodium per serving ?? High-fat cuts of beef (T-bone steaks, ribs), egg yolks, chicken or turkey with skin, and organ meats, such as liver ?? Cured or smoked meats , such as hot dogs and sausage ?? Fats and oils , such as butter, stick margarine, shortening, and cooking oils such as coconut orpalm oil ?? Other foods high in sodium , such as ketchup, barbecue sauce, salad dressing, pickles, olives, soy sauce, and miso Other diet guidelines to follow: ?? Eat more foods containing omega-3 fats. Eat fish high in omega-3 fats at least 2 times a week. ?? Limit alcohol. Too much alcohol can damage your heart and raise your blood pressure. A drink of alcohol is 12 ounces of beer, 5 ounces of wine, or 1?? ounces of liquor. ?? Choose low-sodium foods. High-sodium foods can lead to high blood pressure. Add little or no salt to food you prepare. Use herbs and spices in place of salt. ?? Eat more fiber to help lower cholesterol levels. Eat at least 5 servings of fruits and vegetables each day. Eat 3 ounces of whole-grain foods each day. Legumes (beans) are also a good source of fiber. ?? Replace sweetened foods and drinks with those that have no or low sugar added. Ask your dietitian or healthcare provider which foods and liquids are best for you. Lifestyle guidelines: ?? Do not smoke. Nicotine and other chemicals in cigarettes and cigars can cause lung and heart damage. Ask your healthcare provider for information if you currently smoke and need help to quit. E-cigarettes or smokeless tobacco still contain nicotine. Talk to your healthcare provider before you use these products. ?? Exercise regularly to help you maintain a healthy weight and improve your blood pressure and cholesterol levels. Ask your healthcare provider about the best exercise plan for you. Do not start an exercise program without asking your healthcare provider. Follow up with your healthcare provider as directed: Write down your questions so you remember to ask them during your visits. ?? 2016 Health As We Age. Information is for End User's use only and may not be sold, redistributed or otherwise used for commercial purposes. All illustrations and images included in CareNotes?? are the copyrighted property of [employer].A[employer] or [employer]. The above information is an educational therapy teacher only. It is not intended as medical advice for individual conditions or treatments. Talk to your doctor, nurse or pharmacist before following any medical regimen to see if it is safe and effective for you. documented in this encounter Progress Notes * Rickey Do MD - 11/27/2017 2:45 PM CDT Ayden Santos 1945 Chief Complaint Patient presents with ??? Flank Pain Has been having R flank discomfort. He reports that the pain has been intermittent and occurs when he bends or twists. It appears to be musculoskeletal in origin. He denies any hematuria. He denies any pain radiating into his testicles. Review of Systems Constitutional: Negative for chills and fever. Eyes: Negative for blurred vision. Respiratory: Negative for cough and shortness of breath. Cardiovascular: Negative for chest pain and leg swelling. Gastrointestinal: Negative for heartburn and nausea. Genitourinary: Negative for flank pain. Musculoskeletal: Negative for myalgias. Skin: Negative for rash. Neurological: Negative for dizziness, tingling and headaches. Endo/Heme/Allergies: Does not bruise/bleed easily. Psychiatric/Behavioral: Negative for depression. BMI Body mass index is 35.98 kg/m??. Vitals BP 138/60 (BP Location: Right arm, Patient Position: Sitting) Pulse 83 Resp 16 Ht 180.3 cm (5' 11 ) Wt 117 kg (258 lb) SpO2 93% BMI 35.98 kg/m?? Physical Exam Constitutional: He is oriented to person, place, and time. He appears well- developed and well-nourished. Cardiovascular: Normal rate, regular rhythm, normal heart sounds and intact distal pulses. Pulses: Dorsalis pedis pulses are 2+ on the right side, and 2+ on the left side. Posterior tibial pulses are 2+ on the right side, and 2+ on the left side. Pulmonary/Chest: Effort normal and breath sounds normal. Abdominal: Soft. Bowel sounds are normal. Feet: Right Foot: Protective Sensation: 10 sites tested. 10 sites sensed. Skin Integrity: Negative for ulcer. Left Foot: Protective Sensation: 10 sites tested. 10 sites sensed. Skin Integrity: Negative for ulcer. Neurological: He is alert and oriented to person, place, and time. Skin: Skin is warm and dry. Vitals reviewed. Flank pain The flank discomfort the patient experiences appears to be musculoskeletal. He was reassured and will follow up in the office as needed. Type 2 diabetes mellitus with neurologic complication (CMS/HCC) Diabetes is improving with treatment. Continue current treatment regimen. Diabetes will be reassessed in 6 months. Hypertension associated with diabetes (CMS/HCC) Hypertension is improving with treatment. Continue current treatment regimen. Blood pressure will be reassessed at the next regular appointment. BMI 35.0-35.9,adult We have discussed the importance of getting his weight under better control. It will also help withthe musculoskeletal flank pain.BMI Follow-up includes: exercise counseling. No orders of the defined types were placed in this encounter. No associated diagnoses for current labs documented in this encounter Miscellaneous Notes * Assessment & Plan Note - Rickey Do MD - 12/04/2017 11:43 AM CDT Associated Problem(s): Class 2 severe obesity due to excess calories with serious comorbidity and body mass index (BMI) of 37.0 to 37.9 in adult (HCC) We have discussed the importance of getting his weight under better control. It will also help withthe musculoskeletal flank pain.BMI Follow-up includes: exercise counseling. * Assessment & Plan Note - Rickey Do MD - 12/04/2017 11:42 AM CDT Associated Problem(s): Flank pain (Resolved 05/16/2018) The flank discomfort the patient experiences appears to be musculoskeletal. He was reassured and will follow up in the office as needed. * Assessment & Plan Note - Rickey Do MD - 12/04/2017 11:41 AM CDT Associated Problem(s): Hypertensive heart disease without heart failure Hypertension is improving with treatment. Continue current treatment regimen. Blood pressure will be reassessed at the next regular appointment. * Assessment & Plan Note - Rickey Do MD - 12/04/2017 11:41 AM CDT Associated Problem(s): Type 2 diabetes mellitus with neurologic complication (HCC) (Resolved 11/05/2020) Diabetes is improving with treatment. Continue current treatment regimen. Diabetes will be reassessed in 6 months. 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
--- OUTSIDE RECORDS SUMMARY | 2024-02-10 01:53 | XMS_ITS | Encounter Summary ---
Author Organization [facility] Medical Group Address [address] [place] [address] Care Team Providers Care Hydrate Control Tender Name Role Phone Rickey Do MD Primary Care Provider [phone] Reason for Visit * Reason Onset Date Comments [address]-Prior Authorization 03/29/2017 Encounter Details Date Type Department Care Team (Late st Contact Info) Description 03/29/2017 Telephone [facility] [address] [facility] [address] [place] [phone] Rickey Do MD [address] [facility] [address] [place] [id number] [address]-Prior Authorization Social History Tobacco Use Types Packs/Day Years Used Date Smoking Tobacco: Former Smokeless Tobacco: Never Comments:Smoking History Pac ks/day: 1 Packs Alcohol Use Standard Drinks/Week Comments Yes 0 (1 standard drink = 0.6 oz pur e alcohol) Sex and Gender Information Value Date Recorded Sex Assigned at Not on file Legal Sex Male 11:37 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 Gender Identity Not on file Sexual Orientation Not on file documented as of this encounter Miscellaneous Notes * Telephone Encounter - Mary Lou Avilez MA - 04/03/2017 12:29 PM ELECTRICAL 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 OMARI completed and approved thru 02/19/18 TRICAL 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 * Telephone Encounter - Elsi Villaseñor MA - 03/31/2017 2:28 PM ELECTRICAL 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 rx by xena TRICAL 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 * Telephone Encounter - Kari Godoy - 03/29/2017 1:23 PM CST See message TRICAL 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 * Telephone Encounter - Oralia Edge - 03/29/2017 12:48 PM CST Yolanda jones/Bartolome is requesting Dr. Do's assistant branch manager/nurse contact her to answer questions pertaining to the prior authorization for the [employer]. Yolanda can be reached at [phone]. TRICAL 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 documented in this encounter Plan of Treatment Not on file documented as of this encounter Visit Diagnoses Not on filedocumented in this encounter Care Teams Hydrate Control Tender Relationship Specialty Start Date End Date Rickey Do MD PCP - General 05/20/16 11/08/20 documented as of this encounter
--- OUTSIDE RECORDS SUMMARY | 2024-02-10 01:53 | XMS_ITS | Encounter Summary ---
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 Unable to assess 05/13/2019 4:06 PM CDT documented as of this encounter Progress Notes * Xena Valencia NP - 04/07/2017 10:09 AM CST Enter colon for bic SS TEST TECHNICIAN documented in this encounter Plan of Treatment Not on file documented as of this encounter Procedures Procedure Name Priority Date/Time Associated Diagnosis Comments GI - RESULT 04/07/2017 9:44 AM STRESS TEST TECHNICIAN documented in this encounter Results * GI - RESULT (04/07/2017 9:44 AM STRESS TEST TECHNICIAN) Anatomical Region Laterality Modality Other us Provider Scanning Final Result documented in this encounter Visit Diagnoses Not on filedocumented in this encounter Care Teams Setter Cold Rolling Machine Relationship Specialty Start Date End Date Rickey Do MD PCP - General 05/20/16 11/08/20 documented as of this encounter
--- OUTSIDE RECORDS SUMMARY | 2024-02-10 01:53 | XMS_ITS | Encounter Summary ---
Author Organization [facility] Address [address] [place] [address] Care Team Providers Care Cognos Developer Name Role Phone Rickey Do MD Primary Care Provider [phone] Reason for Visit * Reason Comments Coronary Artery Disease Encounter Details Date Type Department Care Team (Late st Contact Info) Description 05/03/2017 1:15 PM CDT Office Visit [facility] Cardiology [address] [place] [address] Farrukh Jiménez MD [address] [place] [address] [address] [place] [address] Coronary artery disease involving iroquois coronary artery of iroquois heart without angina pectoris (Primary Dx); Essential [...] on file 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 Gender Identity Not on file Sexual Orientation Not on file documented as of this encounter Last Filed Vital Signs Vital Sign Reading Time Taken Comments Blood Pressure 110/70 05/03/2017 1:10 PM CDT Pulse 96 05/03/2017 1:10 PM CDT Temperature - - Respiratory Rate - - Oxygen Saturation - - Inhaled Oxygen Concentration - - Weight 117 kg (258 lb) 05/03/2017 1:10 PM CDT Height 180.3 cm (5' 11 ) 05/03/2017 1:10 PM CDT Body Mass Index 35.98 05/03/2017 1:10 PM CDT documented in this encounter Progress Notes * Farrukh Jiménez MD - 05/03/2017 1:15 PM CDT Patient Name: Ayden Santos Provider: Farrukh Jiménez MD : [id number] Date of Service: 05/03/2017 Referring: Ernestina CHIEF COMPLAINT: Coronary Artery Disease HISTORY OF PRESENT ILLNESS: 71 y.o. male returns in follow-up of mild [...] active with no exertional chest discomfort or dyspnea, but he does not exercise regularly. Recent LDL is 65. MEDICATIONS: Outpatient Encounter Prescriptions as of 05/03/2017 Medication Sig Dispense Refill ??? acyclovir (ZOVIRAX) 400 mg tablet Take 1 tablet (400 mg total) by mouth 2 (two) times a day. 180 tablet 1 ??? aspirin (BABY ASPIRIN) 81 mg chewable tablet chew 1 tablet (81MG) by oral route every day 0 ??? cholecalciferol (VITAMIN D3) 1,000 unit capsule one daily 0 ??? coenzyme Q10 (COQ-10) 100 mg capsule take 3 by Oral route every evening 0 0 ? ? empagliflozin-metformin 25-1,000 mg tablet, IR & ER, biphasic 24hr Take 1 tablet by mouth daily. 90 tablet 3 ??? insulin degludec-liraglutide 100 unit-3.6 mg /mL (3 mL) insulin pen Inject 24 Units under the skin daily. 9 Syringe 3 ??? lancets (onetouch ultrasoft) misc test by by finger stick route 3 times every day 300 8 ??? metoprolol (LOPRESSOR) 50 mg tablet Take 1 tablet (50 mg total) by mouth 3 (three) times a day.Take 2 tablet at lunch and one tablet at bedtime 270 tablet 3 ??? nitroglycerin (NITROSTAT) 0.[address] 1 tablet by sublingual route at the 1st sign of attack; may repeat every 5 min until relief; if pain persists after 3 tablets in 15 min, prompt medical attention is recommended 1 0 ??? ONETOUCH VERIO strip TEST ONCE A DAY 100 each 3 ??? pen needle, diabetic (PEN NEEDLE) 31 gauge x 1/4 needle Inject 1 pen under the skin daily. 100each 3 ??? simvastatin (ZOCOR) 20 mg tablet Take 1 tablet (20 mg total) by mouth nightly. 90 tablet 3 ??? valsartan-hydrochlorothiazide (DIOVAN-HCT) 320-25 mg per tablet TAKE 1 TABLET BY MOUTH DAILY 90tablet 2 ??? [DISCONTINUED] FLUZONE HIGH-DOSE , PF, 180 mcg/0.5 mL syringe Inject 0.5 mL into the shoulder, thigh, or buttocks once. No facility-administered encounter medications on file as of 05/03/2017. REVIEW OF SYSTEMS: General: No fever, chills, [...] excessive bleeding or bruising PHYSICAL EXAM: BP 110/70 Pulse 96 Ht 180.3 cm (5' 11 ) Wt [...] for this visit: Coronary artery disease involving iroquois coronary artery of iroquois heart without angina pectoris (Primary) Assessment & Plan: Stable, mild without symptoms. I made no change in his excellent medical regimen today. I asked himto follow up with me annually, or sooner if needed. I again strongly advised him to diet and exercise to lose weight. Essential hypertension, benign Assessment & Plan: Blood pressure is very well controlled. Continue same therapy. Continue diet and exercise. Hypercholesteremia Assessment & Plan: Lipids are very well controlled. Continue statin therapy. documented in this encounter Miscellaneous Notes * Assessment & Plan Note - Farrukh Jiménez MD - 05/03/2017 1:17 PM CDT Associated Problem(s): Hypercholesteremia (Resolved 05/16/2018) Lipids are very well controlled. Continue statin therapy. * Assessment & Plan Note - Farrukh Jiménez MD - 05/03/2017 1:17 PM CDT Associated Problem(s): Essential hypertension, benign (Resolved 08/16/2018) Blood pressure is very well controlled. Continue same therapy. Continue diet and exercise. * Assessment & Plan Note - Farrukh Jiménez MD - 05/03/2017 1:17 PM CDT Associated Problem(s): Coronary artery disease involving iroquois coronary artery of iroquois heart without angina pectoris Stable, mild without symptoms. I made no change in his excellent medical regimen today. I asked himto follow up with me annually, or sooner if needed. I again strongly advised him to diet and exercise to lose weight. documented in this encounter Plan of Treatment Not on file documented as of this encounter Visit Diagnoses Diagnosis Coronary artery disease involving iroquois coronary artery of iroquois heart without angina pectoris- Primary Essential hypertension, benign Hypercholesteremia Pure hypercholesterolemia documented in this encounter Discontinued Medications Medication Sig Discontinue Reason Start Date End Da te FLUZONE HIGH-DOSE , PF, 180 mcg/0.5 mL syringeIndications:Type 2 diabetes mellitus with other circulatory complication, unspecified enameler insulin use status Inject 0.5 mL into the shoulder, thigh, or buttocks once. 11/21/2016 05/03/2017 documented as of this encounter Care Teams Cognos Developer Relationship Specialty Start Date End Date Rickey Do MD PCP - General 05/20/16 11/08/20 documented as of this encounter
--- OUTSIDE RECORDS SUMMARY | 2024-02-10 01:53 | XMS_ITS | Encounter Summary ---
Author Organization [facility] Address [address] [address] Care Team Providers Care Salesperson Shoes Name Role Phone Rickey Do MD Primary Care Provider [phone] Reason for Visit * Reason Comments Follow-up 1 month Encounter Details Date Type Department Care Team (Late st Contact Info) Description 01/11/2017 9:00 AM CUT IN WORKER Office Visit [facility] [address] [place] [address] Xena Valencia, PATTERN CHAIN MAKER SUPERVISOR [address] [place] [address] Type 2 diabetes mellitus with other circulatory complication, unspecified long-term insulin use status (CMS/HCC) (Primary Dx); Benign hypertension, endocrine; DDD (degenerative disc disease), thoracolumbar; 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 2 diabetes mellitus [...] on file Legal Sex Male 11:37 AM CUT IN WORKER Gender Identity Not on file Sexual Orientation Not on file documented as of this encounter Last Filed Vital Signs Vital Sign Reading Time Taken Comments Blood Pressure 134/60 01/11/2017 9:10 AM CUT IN WORKER Pulse 77 01/11/2017 9:10 AM CUT IN WORKER Temperature - - Respiratory Rate - - Oxygen Saturation 97% 01/11/2017 9:10 AM CUT IN WORKER Inhaled Oxygen Concentration - - Weight 115.4 kg (254 lb 6.4 oz) 01/11/2017 9:10 AM CUT IN WORKER Height - - Body Mass Index 35.48 12/01/2016 10:06 AM CDT documented in this encounter Patient Instructions * Patient Instructions* Xena Valencia NP - 01/11/2017 9:00 AM CUT IN WORKER Continue with synjardy at lunch Stop victoza Add xultophy which is tresiba insulin and victoza in one pen Start with 10 units once a day Call me every 3 days for instructions IN WORKER documented in this encounter Ordered Prescriptions Prescription Sig Dispense Quantity Refills Last Filled Start Date End Date insulin degludec-liragluti de (XULTOPHY 100/3.6) 100 unit-3.6 mg /mL (3 mL) insulin penIndications:typ e 2 diabetes mellitus,has hypoglycemia and is already on victoza please disp Inject 16 Units under the skin daily. 3 Syringe 1 01/11/2017 01/23/2017 documented in this encounter Progress Notes * Xena Valencia NP - 01/11/2017 9:00 AM CST Subjective/Objective Patient ID: Ayden Santos is a 71 y.o. male. Chief Complaint Follow-up (1 month) 71 yo cm presents for here for evaluation and management of chronic disease Dm fasting smbg 146-186 presuper 129-180 Current Outpatient Prescriptions: ??? acyclovir (ZOVIRAX) 400 mg tablet, TAKE 1 TABLET BY MOUTH TWO TIMES DAILY, Disp: 180 tablet, Rfl: 1 ??? aspirin [...] every evening, Disp: 0, Rfl: 0 ??? lancets (onetouch ultrasoft) misc, test by [...] bedtime, Disp: 270 tablet, Rfl: 3 ??? pen needle, diabetic (PEN NEEDLE) 31 gauge x 1/4 needle, Inject 1 pen under the skin daily., Disp: 100 each, Rfl: 3 ??? simvastatin (ZOCOR) 20 mg tablet, TAKE 1 TABLET BY MOUTH EVERY DAY IN THE EVENING, Disp: 90 tablet, Rfl: 1 ??? valsartan-hydrochlorothiazide (DIOVAN-HCT) 320-25 mg per tablet, TAKE 1 TABLET BY MOUTH DAILY, Disp: 90 tablet, Rfl: 2 ? ? empagliflozin-metformin 25-1,000 mg tablet, IR & ER, biphasic 24hr, Take 1 tablet by mouth daily. (Patient not taking: Reported on 01/11/2017 ), Disp: 90 tablet, Rfl: 3 ??? FLUZONE HIGH-DOSE , PF, 180 mcg/0.5 mL syringe, Inject 0.5 mL into the shoulder, thigh, or buttocks once., Disp: , Rfl: ??? nitroglycerin (NITROSTAT) 0.4 mg SL tablet, place 1 tablet by sublingual route at the 1st sign of attack; may repeat every 5 min until relief; if pain persists after 3 tablets in 15 min, prompt medical attention is recommended (Patient not taking: Reported on 01/11/2017 ), Disp: 1, Rfl: 0 -- Royce Inhibitors -- Cough -- Reaction: Cough, -- Amlodipine -- Edema -- Reaction: Edema, -- Farxiga (Dapagliflozin) -- Diarrhea Immunization History Administered Date(s) Administered Hepatitis A, Adult 02/16/2000 02/05/2001 Influenza Split 11/29/2011 Influenza Split High Dose Preservative Free IM 11/20/2013 12/03/2015 Influenza TIV (IM) 01/22/2008 11/29/2010 Influenza, Trivalent, Pres/Antib Free, IM 11/10/2014 Influenza, Unspecified 11/21/2016 Pneumococcal Conjugate 13-Valent (PREVNAR) 07/22/2014 Pneumococcal Polysaccharide 23-Valent (PNEUMOVAX) 11/29/2001 12/12/2009 11/29/2010 Td 02/16/2000 Tdap 02/25/2010 Zoster 04/03/2008 Review of Systems Constitutional: Negative. Negative for [...] normal. Nursing note and vitals reviewed. BP 134/60 Pulse 77 Wt 115.4 kg (254 lb 6.4 oz) SpO2 97% BMI 35.48 kg/m?? Assessment/Plan Diagnoses and all orders for this visit: Type 2 diabetes mellitus with other circulatory complication, unspecified long-term insulin use status ([facility]) (Primary) Assessment & Plan: Stable Lab pending [...] socks to avoid skin injury See orders Benign hypertension, endocrine Assessment & Plan: Borderline Hypertension is unchanged. Continue current treatment [...] sun screen hat and sleeves See orders DDD (degenerative disc disease), thoracolumbar Assessment & Plan: Ice not heat , Rest with periods of walking. Prescription sent to pharmacy take as directed. All risk and benefits were discussed with patient. Reviewed prior diagnostics, labs consult prior treatments medications, d/w need for physical therapy and pain management Patient verbalized understanding agrees with plan of care See orders 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 2 diabetes mellitus ([facility]) Assessment & Plan: Lipid abnormalities are unchanged. Nutritional counseling was provided. and Pharmacotherapy as ordered. Lipids will be reassessed in 3 months. BMI 35.0-35.9,adult Assessment & Plan: BMI Follow-up includes: nutrition counseling, exercise counseling and education provided. IN WORKER documented in this encounter Miscellaneous Notes * Assessment & Plan Note - Xena Valencia NP - 02/16/2017 1:27 PM CSTAssociated Problem(s): Type 2 diabetes mellitus with circulatory disorder ([facility]/HCC) ([facility]) Stable Lab pending Reviewed past medication, medical, [...] socks to avoid skin injury See orders IN WORKER * Assessment & Plan Note - Xena Valencia NP - 02/16/2017 1:27 PM CSTAssociated Problem(s): 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 2 diabetes mellitus ([facility]/HCC) ([facility]) Lipid abnormalities are unchanged. Nutritional counseling was provided. and Pharmacotherapy as ordered. Lipids will be reassessed in 3 months. IN WORKER * Assessment & Plan Note - Xena Valencia NP - 02/16/2017 1:27 PM CSTAssociated Problem(s): DDD (degenerative disc disease), thoracolumbar Ice not heat , Rest with periods of walking. Prescription sent to pharmacy take as directed. All risk and benefits were discussed with patient. Reviewed prior diagnostics, labs consult prior treatments medications, d/w need for physical therapy and pain management Patient verbalized understanding agrees with plan of care See orders IN WORKER * Assessment & Plan Note - Xena Valencia NP - 02/16/2017 1:26 PM CSTAssociated Problem(s): Hypertensive heart disease without heart failure Borderline Hypertension is unchanged. Continue current treatment [...] sun screen hat and sleeves See orders IN WORKER * Assessment & Plan Note - Lima Thorpe MA - 01/11/2017 9:12 AM CSTAssociated Problem(s): Class 2 severe obesity due to excess calories with serious comorbidity and body mass index (BMI) of 37.0 to 37.9 in adult (HCC) BMI Follow-up includes: nutrition counseling, exercise counseling and education provided. IN WORKER documented in this encounter Plan of Treatment Not on file documented as of this encounter Visit Diagnoses Diagnosis Type 2 diabetes mellitus with other circulatory complication, unspecified long-term insulin use status- Primary Benign hypertension, endocrine Other secondary hypertension, benign DDD (degenerative disc disease), thoracolumbar Degeneration of thoracic or thoracolumbar intervertebral disc 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) BMI 35.0-35.9,adult documented in this encounter Discontinued Medications Medication Sig Discontinue Reason Start Date End Da te liraglutide (VICTOZA 3-STEWART) 0.6 mg/0.1 mL (18 mg/3 mL) injectionIndications:typ e 2 diabetes mellitus Inject 0.3 mL (1.8 mg total) under the skin daily. 09/28/2016 01/11/2017 documented as of this encounter Care Teams Salesperson Shoes Relationship Specialty Start Date End Date Rickey Do MD PCP - General 05/20/16 11/08/20 documented as of this encounter
--- OUTSIDE RECORDS SUMMARY | 2024-02-10 01:53 | XMS_ITS | Encounter Summary ---
Author Organization [facility] Address [address] [place] [address] Care Team Providers Care Grades 9 Thru 12 Visiting Teacher Name Role Phone Rickey Do MD Primary Care Provider Encounter Details Date Type Department Care Team (Late st Contact Info) Description 11/20/2017 Telephone [facility] 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
--- OUTSIDE RECORDS SUMMARY | 2024-02-10 01:53 | XMS_ITS | Encounter Summary ---
Author Organization [facility] Address [address] [facility] [address] [place] [address] Care Team Providers Care Electrical Controls Engineer Name Role Phone Rickey Do MD Primary Care Provider [phone] Reason for Visit * Reason Comments Diabetes FOLLOW UP Encounter Details Date Type Department Care Team (Late st Contact Info) Description 02/21/2017 9:00 AM LEAD POURER Office Visit [facility] [address] [place] [phone] Beba Diamond, SUPERVISOR LOOPING [address] [facility] [address] [place] [address] Type 2 diabetes mellitus with other circulatory complication, [place] [facility] [place] insulin use status ([facility]) (Primary Dx); BMI 35.0-35.9,adult; Screening for colon cancer Social History Tobacco Use Types Packs/Day Years Used Date Smoking Tobacco: Former Smokeless Tobacco: Never Comments:Smoking History Pac ks/day: 1 Packs Alcohol Use Standard Drinks/Week Comments Yes 0 (1 standard drink = 0.6 oz pur e alcohol) Sex and Gender Information Value Date Recorded Sex Assigned at Not on file Legal Sex Male 11:37 AM LEAD POURER Gender Identity Not on file Sexual Orientation Not on file documented as of this encounter Last Filed Vital Signs Vital Sign Reading Time Taken Comments Blood Pressure 128/68 02/21/2017 8:41 AM LEAD POURER Pulse 68 02/21/2017 8:41 AM LEAD POURER Temperature - - Respiratory Rate - - Oxygen Saturation 98% 02/21/2017 8:41 AM LEAD POURER Inhaled Oxygen Concentration - - Weight 115.8 kg (255 lb 3.2 oz) 02/21/2017 8:41 AM LEAD POURER Height - - Body Mass Index 35.59 12/01/2016 10:06 AM CDT documented in this encounter Ordered Prescriptions Prescription Sig Dispense Quantity Refills Last Filled Start Date End Date insulin degludec-liragluti de (XULTOPHY 100/3.6) 100 unit-3.6 mg /mL (3 mL) insulin penIndications:typ e 2 diabetes mellitus,has hypoglycemia and is already on victoza please disp Inject 17 Units under the skin daily. 3 Syringe 1 02/21/2017 03/23/2017 acyclovir (ZOVIRAX) 400 mg tablet Take 1 tablet (400 mg total) by mouth 2 (two) times a day. 180 tablet 1 02/21/2017 06/14/2017 simvastatin (ZOCOR) 20 mg tablet Take 1 tablet (20 mg total) by mouth nightly. 90 tablet 3 02/21/2017 02/28/2018 documented in this encounter Progress Notes * Beba Diamond, VASQUEZ - 02/21/2017 9:00 AM CST Subjective/Objective Patient ID: Ayden Santos is a 71 y.o. male. Chief Complaint Diabetes (FOLLOW UP) Diabetes He presents for his follow-up diabetic visit. He has type 2 diabetes mellitus. His disease course has been fluctuating. There are no hypoglycemic associated symptoms. Pertinent negatives for hypoglycemia include no confusion, dizziness, headaches or pallor. There are no diabetic associated symptoms. Pertinent negatives for diabetes include no chest pain, no polydipsia, no polyphagia and no polyuria. There are no hypoglycemic complications. Symptoms are improving. There are no diabetic complications. Risk factors for coronary artery disease include diabetes mellitus, dyslipidemia, hypertension, male sex and obesity. Current diabetic treatment includes intensive insulin program and oral agent (triple therapy). He is compliant with treatment all of the time. His weight is stable. He is following a diabetic diet. Meal planning includes ADA exchanges. His home blood glucose trend is decreasing steadily. His breakfast blood glucose range is generally 130-140 mg/dl. His dinner blood glucose range is generally 90-110 mg/dl. An PATRICE inhibitor/angiotensin II receptor priscilla is being taken. 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 Review of Systems Constitutional: Negative for activity change, appetite change, chills and fever. HENT: Negative for congestion and hearing loss. Respiratory: Negative for cough, chest tightness and shortness of breath. Cardiovascular: Negative for chest pain, palpitations and leg swelling. Gastrointestinal: Negative for abdominal distention and abdominal pain. Endocrine: Negative for polydipsia, polyphagia and polyuria. Genitourinary: Negative for difficulty urinating and dysuria. Musculoskeletal: Negative for arthralgias. Skin: Negative for pallor. Neurological: Negative for dizziness and headaches. Hematological: Negative for adenopathy. Psychiatric/Behavioral: Negative for confusion. Blood pressure 128/68, pulse 68, weight 115.8 kg (255 lb 3.2 oz), SpO2 98 %. Body mass index is 35.59 kg/m??. Physical Exam Constitutional: He is oriented to person, place, and time. He appears well-developed. HENT: Head: Normocephalic. Cardiovascular: Normal rate, regular rhythm, normal heart sounds and intact distal pulses. Pulmonary/Chest: Effort normal and breath sounds normal. Abdominal: Soft. Bowel sounds are normal. Feet: Right Foot: Monofilament exam normal. Protective Sensation: 4 sites tested. 4 sites sensed. Left Foot: Monofilament exam normal. Protective Sensation: 4 sites tested. 4 sites sensed. Neurological: He is alert and oriented to person, place, and time. Skin: Skin is warm and dry. 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 Patient chantal balized understanding. Orders: - Basic metabolic panel; Future BMI 35.0-35.9,adult Assessment & Plan: BMI Follow-up includes: nutrition counseling, exercise counseling and education provided. Screening for colon cancer Assessment & Plan: 02/22/10 Dr. Marroquin, polyp, due x 5 years. Patient has scheduled. Other orders - simvastatin (ZOCOR) 20 mg tablet; Take 1 tablet (20 mg total) by mouth nightly. - acyclovir (ZOVIRAX) 400 mg tablet; Take 1 tablet (400 mg total) by mouth 2 (two) times a day. - insulin degludec-liraglutide (XULTOPHY 100/3.6) 100 unit-3.6 mg /mL (3 mL) insulin pen; Inject 17Units under the skin daily. POURER documented in this encounter Miscellaneous Notes * Assessment & Plan Note - Beba Diamond NP - 02/21/2017 9:17 AM LEAD POURER Associated Problem(s): History of colon polyps 02/22/10 Dr. Marroquin, polyp, due x 5 years. Patient has scheduled. POURER * Assessment & Plan Note - Beba Diamond NP - 02/21/2017 9:11 AM LEAD POURER Associated Problem(s): Type 2 diabetes mellitus with circulatory disorder (CMS/HCC) (HCC) I have reviewed past medical, surgical, family, [...] kidney failure, stroke or heart attack. Patient chantal balized understanding. POURER * Assessment & Plan Note - Lima Thorpe MA - 02/21/2017 8:46 AM CSTAssociated Problem(s): Class 2 severe obesity due to excess calories with serious comorbidity and body mass index (BMI) of 37.0 to 37.9 in adult ([facility]) BMI Follow-up includes: nutrition counseling, exercise counseling and education provided. POURER documented in this encounter Plan of Treatment Not on file documented as of this encounter Procedures Procedure Name Priority Date/Time Associated Diagnosis Comments BASIC METABOLIC PANEL Routine 02/21/2017 12:00 AM LEAD POURER Type 2 diabetes mellitus with other circulatory complication, [place] [facility] [place] use [place] ([facility]) DIABETES EYE EXAM Routine 03/22/2016 COLONOSCOPY Routine 02/22/2010 documented in this encounter Results * (ABNORMAL) Basic metabolic panel (02/21/2017 12:00 AM LEAD POURER) Glucose 181(H) 65 - 99 mg/dL [facility] - 01 BUN 28(H) 8 - 27 mg/dL [facility] - 01 Creatinine, Serum 1.22 0.76 - 1.27 mg/dL [facility] - 01 eGFR If NonAfricn Am 59(L) >59 mL/min/1.7 3 [facility] - 01 eGFR If Africn Am 68 >59 mL/min/1.7 3 [facility] - 01 BUN/creat ratio 23 10 - 24 [facility] - 01 Sodium 141 134 - 144 mmol/L [facility] - 01 Potassium, sr 4.5 3.5 - 5.2 mmol/L [facility] - 01 Chloride 100 96 - 106 mmol/L [facility] - 01 CO2 23 18 - 29 mmol/L [facility] - 01 Calcium 9.6 8.6 - 10.2 mg/dL [facility] - 01 Blood specimen (specimen) 02/21/2017 02/21/2017 Narrative [facility] - 02/22/2017 5:10 AM LEAD POURER Performed at: ??01 - [facility] [address] ??[id number] Tool Operator: Woodrow Michel PhD, Phone: ??[phone] Beba Diamond SUPERVISOR LOOPING LAB BLOOD ORDERABLES Final R esult [facility] - 01 * DIABETES EYE EXAM (03/22/2016) Diabetic Eye Exam Normal Historical Provider HEALTH MAINTENANCE Final Result * COLONOSCOPY (02/22/2010) Colonoscopy Abnormal Historical Provider HEALTH MAINTENANCE Final Result documented in this encounter Visit Diagnoses Diagnosis Type 2 diabetes mellitus with other circulatory complication, 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 Therapy completed 02/01/2017 02/21/2017 simvastatin (ZOCOR) 20 mg tablet TAKE 1 TABLET BY MOUTH EVERY DAY IN THE EVENING Reorder 12/27/2016 02/21/2017 acyclovir (ZOVIRAX) 400 mg tablet TAKE 1 TABLET BY MOUTH TWO TIMES DAILY Reorder 12/27/2016 02/21/2017 insulin degludec-liraglutide (XULTOPHY 100/3.6) 100 unit-3.6 mg /mL (3 mL) insulin penIndications:type 2 diabetes mellitus,has hypoglycemia and is already on victoza please disp Inject 16 Units under the skin daily. Reorder 01/24/2017 02/21/2017 documented as of this encounter Care Teams Electrical Controls Engineer Relationship Specialty Start Date End Date Rickey Do MD PCP - General 05/20/16 11/08/20 documented as of this encounter
--- OUTSIDE RECORDS SUMMARY | 2024-02-10 01:53 | XMS_ITS | Encounter Summary ---
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 (CMS/HCC) (Primary Dx); Type 2 diabetes mellitus with other neurologic complication, unspecified skilled nursing insulin use status (CMS/HCC); Benign hypertension, endocrine; 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 2 diabetes mellitus (CMS/HCC); DDD (degenerative disc disease), cervical; DDD (degenerative disc disease), thoracolumbar; Screen for colon cancer; BMI 35.0-35.9,adult Social History Tobacco Use Types Packs/Day Years Used Date Smoking Tobacco: Former Cigarettes Q uit: 02/20/1985 Comments:Smoking History Pac ks/day: 1 Packs Alcohol Use Standard Drinks/Week Comments Yes 0 (1 standard drink = 0.6 oz pur e alcohol) Sex and Gender Information Value Date Recorded Sex Assigned at Not on file Legal Sex Male 11:37 AM PATTERN CLERK Gender Identity Not on file Sexual Orientation Not on file documented as of this encounter Last Filed Vital Signs Vital Sign Reading Time Taken Comments Blood Pressure 114/62 12/01/2016 10:06 AM CDT Pulse 80 12/01/2016 10:06 AM CDT Temperature - - Respiratory Rate 18 12/01/2016 10:06 AM CDT Oxygen Saturation 98% 12/01/2016 10:06 AM CDT Inhaled Oxygen Concentration - - Weight 110.7 kg (244 lb) 12/01/2016 10:06 AM CDT Height 180.3 cm (5' 11 ) 12/01/2016 10:06 AM CDT Body Mass Index 34.03 12/01/2016 10:06 AM CDT documented in this encounter Progress Notes * Xena Valencia, SKIDDER LOADER - 12/01/2016 10:00 AM CDT Subjective/Objective Patient ID: Ayden Santos is a 71 y.o. male. Chief Complaint Diabetes 70 yo cm presents for evaluation of chronic disease Dm smbg fasting 144-180 presupper 118-150 Taking victoza and oral meds as rx Admits routine meal times Has lost 10 pds this month htn take meds as rx denies vertigo orthostasis cp sob le jus Lipid take meds as rx denies tea colore urine or muscle weakness Current Outpatient Prescriptions: ??? acyclovir [...] 90 tablet, Rfl: 3 ??? FLUZONE HIGH-DOSE 2016-, PF, 180 mcg/0.5 mL syringe, Inject 0.5 mL into the shoulder, thigh, or buttocks once., Disp: , Rfl: ??? lancets (onetouch ultrasoft) mis, test by by finger stick route 3 [...] mouth daily, Disp: 90 tablet, Rfl: 1 Allergies Allergen Reactions ??? [...] ??? Td 02/16/2000 ??? Tdap 02/25/2010 ??? Zoster 04/03/2008 Review of Systems Constitutional: Negative. [...] normal. Judgment and thought content normal. BP 114/62 (BP Location: Left arm, Patient Position: Sitting) Pulse 80 Resp 18 Ht 180.3 cm (5'11 ) Wt 110.7 kg (244 lb) SpO2 98% BMI 34.03 kg/m?? Assessment/Plan Diagnoses and all orders for this visit: 1. Type 2 diabetes mellitus with other circulatory complication, unspecified skilled nursing insulin use status ([facility]) (Primary) Assessment & Plan: Stable Lab pending [...] Orders: - Comprehensive metabolic panel; Future - Hepatitis C antibody; Future - Microalbumin, urine, random; Future - Urinalysis reflex to microscopic and culture; Future - Hemoglobin A1c; Future 2. Type 2 diabetes mellitus with other neurologic complication, unspecified skilled nursing insulin use status ([facility]) Assessment & Plan: Stable Lab [...] to avoid skin injury See orders 3. Benign hypertension, endocrine Assessment & Plan: Stable Hypertension is unchanged. [...] use sun screen hat and sleeves 4. 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 Nutritional counseling was provided. and Pharmacotherapy as ordered. Lipids will be reassessed in 3 months. Orders: - Lipid panel; Future 5. DDD (degenerative disc disease), cervical Assessment & [...] of care Enc weight loss and exercise 6. DDD (degenerative disc disease), thoracolumbar Assessment & [...] of care Enc weight loss and exercise 7. Screen for colon cancer - Ambulatory referral to Gastroenterology; Future 8. BMI 35.0-35.9,adult Assessment & Plan: BMI Follow-up includes: nutrition counseling, exercise counseling and education provided. Other orders - Microscopic Examination documented in this encounter Miscellaneous Notes * Assessment & Plan Note - Xena Valencia NP - 12/16/2016 3:24 PM CDTAssociated Problem(s): Type 2 diabetes mellitus [...] Plan Note - Xena Valencia NP - 12/16/2016 3:24 PM CDTAssociated Problem(s): Type 2 diabetes mellitus [...] Plan Note - Xena Valencia NP - 12/16/2016 3:23 PM CDTAssociated Problem(s): 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 2 diabetes mellitus (CMS/HCC) (HCC) Lipid abnormalities are improving with treatment. Nutritional counseling was provided. and Pharmacotherapy as ordered. Lipids will be reassessed in 3 months. * Assessment & Plan Note - Xena Valencia NP - 12/16/2016 3:23 PM CDTAssociated Problem(s): DDD (degenerative disc disease), thoracolumbar [...] of care Enc weight loss and exercise * Assessment & Plan Note - Xena Valencia NP - 12/16/2016 3:23 PM CDTAssociated Problem(s): DDD (degenerative disc disease), cervical [...] of care Enc weight loss and exercise * Assessment & Plan Note - Xena Valencia NP - 12/16/2016 3:22 PM CDTAssociated Problem(s): Class 2 severe obesity due to excess calories with serious comorbidity and body mass index (BMI) of 37.0 to 37.9 in adult (HCC) BMI Follow-up includes: nutrition counseling, exercise counseling and education provided. 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 ([facility]/HCC) URINALYSIS AND REFLEX TO MICROSCOPIC AND CULTURE Routine 12/01/2016 12:00 AM CDT Type 2 diabetes mellitus with other circulatory complication, unspecified skilled nursing insulin use status ([facility]/HCC) ALBUMIN, RANDOM URINE WITHOUT CREATININE Routine 12/01/2016 12:00 AM CDT Type 2 diabetes mellitus with other circulatory complication, unspecified skilled nursing insulin use status ([facility]) HEPATITIS C ANTIBODY Routine 12/01/2016 12:00 AM CDT Type 2 diabetes mellitus with other circulatory complication, unspecified skilled nursing insulin use status ([facility]/HCC) HEMOGLOBIN A1C Routine 12/01/2016 12:00 AM CDT Type 2 diabetes mellitus with other circulatory complication, unspecified skilled nursing insulin use status ([facility]/HCC) LIPID PANEL Routine 12/01/2016 12:00 AM CDT 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 2 diabetes mellitus ([facility]) COMPREHENSIVE METABOLIC PANEL Routine 12/01/2016 12:00 AM CDT Type 2 diabetes mellitus with other circulatory complication, unspecified skilled nursing insulin use status ([facility]) documented in this encounter Results * Microscopic Examination (12/01/2016 12:00 AM CDT) WBC, ur 0-5 0 - 5 /hpf [facility] - 01 RBC, ur None seen 0 - 2 /hpf [facility] - 01 Epithelial cells, non-renal, ur None seen 0 - 10 /hpf [facility] - 01 Mucous Threads Present Not Estab. [facility] - 01 Bacteria, ur None seen None seen/Few [facility] - 01 12/01/2016 12/01/2016 Narrative [facility] - 12/02/2016 11:14 AM CDT Performed at: ??01 - [facility] [address] ??[id number] Traffic Line Painter: Woodrow Michel PhD, Phone: ??[phone] us Xena Valencia NP LAB BLOOD ORDERABLES Final Result [facility] - 01 * (ABNORMAL) Hemoglobin A1c (12/01/2016 12:00 AM CDT) Hgb A1C 7.7(H) 4.8 - 5.6 % [facility] - 01 Comment: ? Pre-diabetes: 5.7 - 6.4 ? Diabetes: >6.4 ? Glycemic control for adults with diabetes: <7.0 Blood specimen (specimen) 12/01/2016 12/01/2016 Narrative [facility] - 12/02/2016 11:14 AM CDT Performed at: ??01 - [facility] [address] ??[id number] Traffic Line Painter: Woodrow Michel PhD, Phone: ??[phone] Xena Valencia NP LAB BLOOD ORDERABLES Final Result [facility] - 01 * (ABNORMAL) Urinalysis reflex to microscopic and culture (12/01/2016 12:00 AM CDT) Specific [place] [address] 1.024 1.005 - 1.030 [facility] - 01 pH, ur 6.0 5.0 - 7.5 [facility] - 01 Color, [...] n ot reflex to a Urine Culture. Urine 12/01/2016 12/01/2016 Narrative [facility] - 12/02/2016 11:14 AM CDT Performed at: ??01 - [facility] [address] ??[id number] Traffic Line Painter: Woodrow Michel PhD, Phone: ??[phone] Xena Valencia SKIDDER LOADER LAB MICROBIOLOGY - G ENERAL ORDERABLES Final Result [facility] - 01 * Microalbumin, urine, random (12/01/2016 12:00 AM CDT) Microalbumin, ur 54.0 Not Estab. ug/mL [facility] - 01 Urine 12/01/2016 12/01/2016 Narrative [facility] - 12/02/2016 11:14 AM CDT Performed at: ??01 - [facility] ??[id number] Traffic Line Painter: Woodrow Michel PhD, Phone: ??[phone] Xena Valencia SKIDDER LOADER LAB URINE ORDERABLES Final Result Performing Organization Address [facility] Co de Phone Number [facility] - 01 * (ABNORMAL) Lipid panel (12/01/2016 12:00 AM CDT) Cholesterol 128 100 - 199 mg/dL [facility] - 01 Triglycerides 197(H) 0 - 149 mg/dL [facility] - 01 HDL Cholesterol 36(L) >39 mg/dL [facility] - 01 VLDL 39 5 - 40 mg/dL [facility] - 01 LDL, calculated 53 0 - 99 mg/dL [facility] - 01 Blood specimen (specimen) 12/01/2016 12/01/2016 Narrative [facility] - 12/02/2016 11:14 AM CDT Performed at: ?? - [facility] ??[id number] Traffic Line Painter: Woodrow Michel PhD, Phone: ??[phone] Xena Valencia SKIDDER LOADER LAB BLOOD ORDERABLES Final Result Performing Organization Address City/[facility]/ZIP Co de Phone Number [facility] - 01 * Hepatitis C antibody (12/01/2016 12:00 AM CDT) Pathologist [facility] Hep C Ab <0.1 0.0 - 0.9 s/co ratio [facility] - 01 Comment: ?Negative: ? < 0.8 ? Indeterminate: 0.8 - 0.9 ?Positive: ? > 0.9 The CDC recommends that a positive HCV antibody result be followed up with a HCV Nucleic Acid Amplification test (434240). Blood specimen (specimen) 12/01/2016 12/01/2016 Narrative [facility] - 12/02/2016 11:14 AM CDT Performed at: ??01 - [facility] [address] ??[id number] Traffic Line Painter: Woodrow Michel PhD, Phone: ??[phone] Xena Valencia SKIDDER LOADER LAB MICROBIOLOGY - G ENERAL ORDERABLES Final Result [facility] - 01 * (ABNORMAL) Comprehensive metabolic panel (12/01/2016 12:00 AM CDT) Pathologist [facility] Glucose 148(H) 65 - 99 mg/dL [facility] - 01 BUN 29(H) 8 - 27 mg/dL [facility] - 01 Creatinine, Serum 1.29(H) 0.76 - 1.27 mg/dL [facility] - 01 eGFR If NonAfricn Am 55(L) >59 mL/min/1.7 3 [facility] - 01 eGFR If Africn Am 64 >59 mL/min/1.7 3 [facility] - 01 BUN/creat ratio 22 10 - 24 [facility] - 01 Sodium 140 134 - 144 mmol/L [facility] - 01 Potassium, sr 4.4 3.5 - 5.2 mmol/L [facility] - 01 Chloride 98 96 - 106 mmol/L [facility] - 01 CO2 21 18 - 29 mmol/L [facility] - 01 Calcium 9.6 8.6 - 10.2 mg/dL [facility] - 01 Protein, sr 7.6 6.0 - 8.5 g/dL [facility] - 01 Albumin 4.3 3.5 - 4.8 g/dL [facility] - 01 Globulin 3.3 1.5 - 4.5 g/dL [facility] - 01 Alb/glob ratio 1.3 1.2 - 2.2 [facility] - 01 Bilirubin, Total 0.5 0.0 - 1.2 mg/dL [facility] - 01 Alk phos 74 39 - 117 IU/L [facility] - 01 AST 26 0 - 40 IU/L [facility] - 01 ALT 33 0 - 44 IU/L [facility] - 01 Blood specimen (specimen) 12/01/2016 12/01/2016 Narrative [facility] - 12/02/2016 11:14 AM CDT Performed at: ?? 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 11/21/2016 8 added in this encounter Care Teams Evaluation Engineer Relationship Specialty Start Date End Date Rickey Do MD PCP - General 05/20/16 11/08/20 documented as of this encounter
--- OUTSIDE RECORDS SUMMARY | 2024-02-10 01:53 | XMS_ITS | Encounter Summary ---
Author Organization [facility] Address [address] [place] [address] Care Team Providers Care Decision Support Manager Name Role Phone Rickey Do MD Primary Care Provider Reason for Visit * Reason Onset Date Comments Xena Mccain-Medical Question 7 Encounter Details Date Type Department Care Team (Late st Contact Info) Description 10/14/2016 Telephone [facility] [address] [place] [address] Rickey Do MD [address] [address] [address] [place] [id number] Xena Mccain-Medical Question Social History Tobacco Use Types Packs/Day Years Used Date Smoking Tobacco: Former Cigarettes Q uit: 02/20/1985 Comments:Smoking History Pac ks/day: 1 Packs Alcohol Use Standard Drinks/Week Comments Yes 0 (1 standard drink = 0.6 oz pur e alcohol) Sex and Gender Information Value Date Recorded Sex Assigned at Not on file 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 Patient stated his morning blood sugarsrange from 140-150 and afternoon blood sugars range from 112-120. Also, patient stated he discontinued physical therapy due to the facilities privacy policy. documented in this encounter Plan of Treatment Not on file documented as of this encounter Visit Diagnoses Not on filedocumented in this encounter Care Teams Decision Support Manager Relationship Specialty Start Date End Date Rickey Do MD PCP - General 05/20/16 11/08/20 documented as of this encounter
--- OUTSIDE RECORDS SUMMARY | 2024-02-10 01:53 | XMS_ITS | Encounter Summary ---
Author Organization [facility] Address [address] [place] [address] Care Team Providers Care Wire Border Assembler Name Role Phone Rickey Do MD Primary Care Provider Encounter Details Date Type Department Care Team (Late st Contact Info) Description 04/03/2017 Documentation [facility] [address] [facility] [facility] [address] [place] [phone] Rickey Do MD [address] [place] [address] Social History Tobacco Use Types Packs/Day Years Used Date Smoking Tobacco: Former Smokeless Tobacco: Never Comments:Smoking History Pac ks/day: 1 Packs Alcohol Use Standard Drinks/Week Comments Yes 0 (1 standard drink = 0.6 oz pur e alcohol) Sex and Gender Information Value Date Recorded Sex Assigned at Not on file 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
--- OUTSIDE RECORDS SUMMARY | 2024-02-10 01:53 | XMS_ITS | Encounter Summary ---
Author Organization [facility] Address [address] [place] [address] Care Team Providers Care Cook Italian Style Food Name Role Phone Rickey Do MD Primary Care Provider [phone] Reason for Referral * Diagnostic Imaging (Routine) - Closed Specialty Diagnoses / Procedures Referred By Contac t Referred To Contact Diagnoses Left ankle swelling Procedures XR Ankle Left 2 Views eXna Valencia NP Phone: tel: fax: [address] [address] [place] [address] Referral ID Status Reason Start Date Expiration Date Visits Re quested Visits Authorized [id number] Closed 02/15/2018 08/27/2019 1 1 STONE POLISHER Reason for Visit * Diagnostic Imaging (Routine) - Closed Specialty Diagnoses / Procedures Referred By Jp buckner Referred To Contact Diagnoses Left ankle swelling Procedures XR Ankle Left 2 Views Xena Valencia NP Phone: tel: fax: [address] [address] [place] [address] Referral ID Status Reason Start Date Expiration Date Visits Re quested Visits Authorized [id number] Closed 02/15/2018 08/27/2019 1 1 Encounter Details Date Type Department Care Team (Latest Contact Info) Description 02/15/2018 11:01 AM HAND STONE POLISHER - 02/15/2018 11:59 PM HAND STONE POLISHER Hospital Encounter [facility] - [address] [facility] [address] [place] [address] Xena Valencia, HEALTH CARE / MEDICAL JOB TITLES [address] [place] [address] Rickey Do MD [address] [place] [address] Left ankle swelling Discharge Disposition: Discharge to home or self [...] file Legal Sex Male 11:37 AM HAND STONE POLISHER Gender Identity Not on file Sexual Orientation Not on file 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 Bid ac 100 each 3 02/15/2018 9 cholecalciferol (VITAMIN D3) 1,000 unit capsule one daily 0 04/11/2016 9 empagliflozin-met formin (SYNJARDY XR) 12.5-1,000 mg tablet, IR & ER, biphasic 24hrIndications:t ype 2 diabetes mellitus Take 1 tablet by mouth daily. 90 tablet 1 02/15/2018 9 FLUZONE HIGH-DOSE , PF, 180 mcg/0.5 mL syringe Inject 1 application into the muscle as instructed once. 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 9 Syringe 3 06/26/2017 9 irbesartan-hydroc hlorothiazide (AVALIDE) 150-12.5 mg per tablet Take 1 tablet by mouth daily. 90 tablet 3 09/25/2017 9 irbesartan-hydroC HLOROthiazide (AVALIDE) 300-12.5 mg per tabletIndications :hypertension Take 1 tablet by mouth daily. 90 tablet 3 02/15/2018 9 lancets (onetouch ultrasoft) misc test by by finger stick route 3 times every day 300 8 06/30/2011 9 metoprolol (LOPRESSOR) 50 mg tablet TAKE 1 TABLET BY MOUTH 3 TIMES A DAY. (TAKE 2 TABLETS AT LUNCH AND ONE TABLET AT BEDTIME) 30 tablet 11/20/2017 9 nitroglycerin (NITROSTAT) 0.[address] 1 tablet by sublingual route at the 1st sign of attack; may repeat every 5 min until relief; if pain persists after 3 tablets in 15 min, prompt medical attention is recommended 1 0 02/27/2015 9 pen needle, diabetic (PEN NEEDLE) 31 gauge x 1/4 needle Inject 1 pen under the skin daily. 100 each 3 02/15/2018 9 simvastatin (ZOCOR) 20 mg tablet Take 1 tablet (20 mg total) by mouth nightly. 90 tablet 3 02/21/2017 9 documented as of this encounter Discharge Disposition Disposition Code Departure Means Destination Discharge to home or self care documented in this encounter Progress Notes * Xena Valencia NP - 02/15/2018 1:01 PM CST Call pt he has tendonitis in the ankle Needs to see filling technician near his home Needs to wear boot and rest the ankle STONE POLISHER documented in this encounter Plan of Treatment Not on file documented as of this encounter Procedures Procedure Name Priority Date/Time Associated Diagnosis Comments XR ANKLE LEFT 2 VIEWS Schedule DORCAS, Read DORCAS (Appt Today, Awaiting Results) 02/15/2018 11:28 AM HAND STONE POLISHER Left ankle swelling documented in this encounter Results * XR Ankle Left 2 Views (02/15/2018 11:28 AM HAND STONE POLISHER) Anatomical Region Laterality Modality Lower Extremities, Ankle Left Compute d Radiography 02/15/2018 11:5 1 AM HAND STONE POLISHER Impressions 02/15/2018 12:43 PM HAND STONE POLISHER Medial ankle soft tissue swelling with heterotopic ossification deltoid ligament is concerning for ligamentous injury. Dictated by: Perry Walker M.D. Electronically signed by: Luke Waddell M.D. Narrative 02/15/2018 12:43 PM HAND STONE POLISHER EXAMINATION: Left ankle 2 views HISTORY: Left [...] Electronically signed by: Luke Waddell M.D. Xena Valecnia HEALTH CARE / MEDICAL JOB TITLES IMG XR PROCEDURES Fi nal Result documented in this encounter Visit Diagnoses Diagnosis Left ankle swelling Effusion of ankle and foot joint documented in this encounter Care Teams Cook Italian Style Food Relationship Specialty Start Date End Date Rickey Do MD PCP - General 05/20/16 11/08/20 documented as of this encounter
--- OUTSIDE RECORDS SUMMARY | 2024-02-10 01:54 | XMS_ITS | Encounter Summary ---
Author Organization [facility] Address [address] [place] [address] Care Team Providers Care Shirt Turner Name Role Phone Rickey Do MD Primary Care Provider [phone] Reason for Visit * Reason Onset Date Comments Ernestina-med refill 09/15/2016 Encounter Details Date Type Department Care Team (Late st Contact Info) Description 09/15/2016 Telephone [facility] [address] [facility] [address] [facility] [address] [place] [phone] Rickey Do MD [address] [facility] [address] [place] [id number] Ernestina-med refill Social History Tobacco Use Types Packs/Day Years Used Date Smoking Tobacco: Former Cigarettes Q uit: 02/20/1985 Comments:Smoking History Pac ks/day: 1 Packs Alcohol Use Standard Drinks/Week Comments Yes 0 (1 standard drink = 0.6 oz pur e alcohol) Sex and Gender Information Value Date Recorded Sex Assigned at Not on file 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 90 tablet 09/15/2016 10/14/2016 documented in this encounter Miscellaneous Notes * Telephone Encounter - Guerrero Bustos RN - 09/15/2016 11:32 AM CDT rx faxed to [facility] * Telephone Encounter - Rissa Degroot - 09/15/2016 9:21 AM CDT Medication Refill: Medication Requested: [email or web address] Patient's Last Visit: 09/09/16 Patient's Next Visit: 09/28/16 [facility] Additional Comments: Patient calling to report that synjardy XR 25 mg is working very well to manage his diabetes. Patient was given samples but would like a 90 day supply sent to [facility] documented in this encounter Plan of Treatment Not on file documented as of this encounter Visit Diagnoses Not on filedocumented in this encounter Discontinued Medications Medication Sig Discontinue Reason Start Date End Da te empagliflozin-metformin 25-1,000 mg tablet, IR & ER, biphasic 24hr Take 1 tablet by mouth daily. Reorder 09/09/2016 09/15/2016 documented as of this encounter Care Teams Shirt Turner Relationship Specialty Start Date End Date Rickey Do MD PCP - General 05/20/16 11/08/20 documented as of this encounter
--- OUTSIDE RECORDS SUMMARY | 2024-02-10 01:54 | XMS_ITS | Encounter Summary ---
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
--- OUTSIDE RECORDS SUMMARY | 2024-02-10 01:54 | XMS_ITS | Encounter Summary ---
Author Organization [facility] Address [address] [place] [address] Care Team Providers Care Licensed Final Expense Agents Name Role Phone Rickey Do MD Primary Care Provider [phone] Reason for Visit * Reason Onset Date Comments Dr. Do-Medical Question 08/25/2016 Encounter Details Date Type Department Care Team (Late st Contact Info) Description 08/25/2016 Telephone [facility] [address] [facility] [address] [facility] [address] [place] [phone] Rickey Do MD [address] [facility] [address] [place] [id number] Dr. 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 Gender Identity Not on file Sexual Orientation Not on file documented as of this encounter Miscellaneous Notes * Telephone Encounter - Xena Valencia NP - 08/29/2016 4:07 PM CDT Ok see me while he is here we can do another * Telephone Encounter - Elsi Cook MA - 08/26/2016 2:46 PM CDT Pt does not want to take xigudo he has had diarrhea for 7 days straight he will come in for bmp after cat scan * Telephone Encounter - Elsi Cook MA - 08/26/2016 2:46 PM CDT Pt informed of results * Telephone Encounter - Xena Valencia NP - 08/25/2016 3:55 PM CDT Take pill after eating Hold for two days prior to cat scan and two after Need bmp after cat scan to make sure kidney stable * Telephone Encounter - Elsi Cook MA - 08/25/2016 12:53 PM CDT Pt informed he has a cat scan scheduled Also pt c/o diarrhea he thinks is due to the new medication xigudo * Telephone Encounter - Xena Valencia NP - 08/25/2016 12:32 PM CDT Not for xray but if he gets cat scan or mri with contrast he needs hold for 2 days prior and 2 daysafter * Telephone Encounter - Ayleen Carrion - 08/25/2016 12:21 PM CDT See messge * Telephone Encounter - Lidia Parra - 08/25/2016 9:05 AM CDT Patient has concerns about taking Xigduo-XR 10-1000mg with xray. Patient states he was told it is not good to take med with the dye from the xray. Please advise. documented in this encounter Plan of Treatment Not on file documented as of this encounter Visit Diagnoses Not on filedocumented in this encounter Care Teams Licensed Final Expense Agents Relationship Specialty Start Date End Date Rickey Do MD PCP - General 05/20/16 11/08/20 documented as of this encounter
--- OUTSIDE RECORDS SUMMARY | 2024-02-10 01:54 | XMS_ITS | Encounter Summary ---
Author Organization [facility] Address [address] [place] [address] Care Team Providers Care Metal Sheet Roller Operator Name Role Phone Rickey Do MD Primary Care Provider [phone] Encounter Details Date Type Department Care Team (Late st Contact Info) Description 08/18/2016 Orders Only [facility] [address] [facility] [address] [place] [phone] Rickey Do MD [address] [facility] [place] [id number] Social History Tobacco Use Types Packs/Day Years Used Date Smoking Tobacco: Former Cigarettes Q uit: 02/20/1985 Comments:Smoking History Pac ks/day: 1 Packs Alcohol Use Standard Drinks/Week Comments Yes 0 (1 standard drink = 0.6 oz pur e alcohol) Sex and Gender Information Value Date Recorded Sex Assigned at Not on file 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 Gender Identity Not on file Sexual Orientation Not on file documented as of this encounter Plan of Treatment Not on file documented as of this encounter Procedures Procedure Name Priority Date/Time Associated Diagnosis Comments CBC WITH AUTO DIFFERENTIAL Routine 08/18/2016 12:00 AM CDT TSH Routine 08/18/2016 12:00 AM CDT HEMOGLOBIN A1C Routine 08/18/2016 12:00 AM CDT LIPID PANEL Routine 08/18/2016 12:00 AM CDT COMPREHENSIVE METABOLIC PANEL Routine 08/18/2016 12:00 AM CDT documented in this encounter Results * TSH (08/18/2016 12:00 AM CDT) TSH 1.610 0.450 - 4.500 uIU/mL [facility] - 01 08/18/2016 08/18/2016 Narrative [facility] - 08/19/2016 11:15 AM CDT Performed at: ??01 - [facility] ??[id number] Vending Machine Filler: Woodrow Michel PhD, Phone: ??[phone] Rickey Do MD LAB BLOOD ORDERABLES Final Res ult Performing Organization Address [facility] de Phone Number [facility] - * (ABNORMAL) Hemoglobin A1c (08/18/2016 12:00 AM CDT) Pathologist [facility] Hgb A1C 7.8(H) 4.8 - 5.6 % [facility] - 01 Comment: ? Pre-diabetes: 5.7 - 6.4 ? Diabetes: >6.4 ? Glycemic control for adults with diabetes: <7.0 08/18/2016 08/18/2016 Narrative [facility] - 08/19/2016 11:15 AM CDT Performed at: ?? - [facility] [address] ??[id number] Vending Machine Filler: Woodrow Michel PhD, Phone: ??[phone] Rickey Do MD LAB BLOOD ORDERABLES Final Res ult Performing Organization Address [facility] de Phone Number [facility] - * (ABNORMAL) Lipid panel (08/18/2016 12:00 AM CDT) Cholesterol 139 100 - 199 mg/dL [facility] - 01 Triglycerides 233(H) 0 - 149 mg/dL [facility] - 01 HDL Cholesterol 41 >39 mg/dL [facility] - 01 VLDL 47(H) 5 - 40 mg/dL [facility] - 01 LDL, calculated 51 0 - 99 mg/dL [facility] - 01 08/18/2016 08/18/2016 Narrative [facility] - 08/19/2016 11:15 AM CDT Performed at: ??01 - [facility] [address], [place], [place] ??[id number] Vending Machine Filler: Woodrow Michel PhD, Phone: ??[phone] us Rickey Do MD LAB BLOOD ORDERABLES Final Res ult [facility] - * (ABNORMAL) Comprehensive metabolic panel (08/18/2016 12:00 AM CDT) Glucose 162(H) 65 - 99 mg/dL [facility] - 01 BUN 21 8 - 27 mg/dL [facility] - 01 Creatinine, Serum 1.23 0.76 - 1.27 mg/dL [facility] - 01 eGFR If NonAfricn Am 59(L) >59 mL/min/1.7 3 [facility] - 01 eGFR If Africn Am 68 >59 mL/min/1.7 3 [facility] - 01 BUN/creat ratio 17 10 - 24 [facility] - 01 Sodium 140 134 - 144 mmol/L [facility] - 01 Potassium, sr 4.4 3.5 - 5.2 mmol/L [facility] - 01 Chloride 99 96 - 106 mmol/L [facility] - 01 CO2 22 18 - 29 mmol/L [facility] - 01 Calcium 9.8 8.6 - 10.2 mg/dL [facility] - 01 Protein, sr 7.3 6.0 - 8.5 g/dL [facility] - 01 Albumin 4.4 3.5 - 4.8 g/dL [facility] - 01 Globulin 2.9 1.5 - 4.5 g/dL [facility] - 01 Alb/glob ratio 1.5 1.2 - 2.2 [facility] - 01 Bilirubin, Total 0.6 0.0 - 1.2 mg/dL [facility] - 01 Alk phos 76 39 - 117 IU/L [facility] - 01 AST 24 0 - 40 IU/L [facility] - 01 ALT 39 0 - 44 IU/L [facility] - 01 08/18/2016 08/18/2016 Narrative [facility] - 08/19/2016 11:15 AM CDT Performed at: ?? - [facility] [address], [place], [place] ??[id number] Vending Machine Filler: Woodrow Michel PhD, Phone: ??[phone] us Rickey Do MD LAB BLOOD ORDERABLES Final Res ult [facility] - 01 * (ABNORMAL) CBC with auto differential (08/18/2016 12:00 AM CDT) WBC 10.1 3.4 - 10.8 x10E3/uL [facility] - 01 RBC 4.77 4.14 - 5.80 x10E6/uL [facility] - 01 Hgb 14.5 12.6 - 17.7 g/dL [facility] - 01 Hct 43.4 37.5 - 51.0 % [facility] - 01 MCV 91 79 - 97 fL [facility] - 01 MCH 30.4 26.6 - 33.0 pg [facility] - 01 MCHC 33.4 31.5 - 35.7 g/dL [facility] - 01 Rdw 13.9 12.3 - 15.4 % [facility] - 01 Platelets 289 150 - 379 x10E3/uL [facility] - 01 Neutrophils pct 68 % [facility] - 01 Lymphs pct 21 % [facility] - 01 Monocytes pct 9 % [facility] - 01 Eosinophils pct 2 % [facility] - 01 Basophil pct 0 % [facility] - 01 Neutrophil abs 6.8 1.4 - 7.0 x10E3/uL [facility] - 01 Lymphs (Absolute) 2.2 0.7 - 3.1 x10E3/uL [facility] - 01 Monocyte abs 1.0(H) 0.1 - 0.9 x10E3/uL [facility] - 01 Eosinophils, abs 0.2 0.0 - 0.4 x10E3/uL [facility] - 01 Basophils, abs 0.0 0.0 - 0.2 x10E3/uL [facility] - 01 Immature Granulocytes 0 % [facility] - 01 Immature Grans (Abs) 0.0 0.0 - 0.1 x10E3/uL [facility] - 01 08/18/2016 08/18/2016 Narrative [facility] - 08/19/2016 11:15 AM CDT Performed at: ?? - [facility] [address] ??[id number] Vending Machine Filler: Woodrow Michel PhD, Phone: ??[phone] us Rickey Do MD LAB BLOOD ORDERABLES Final Res ult [facility] - 01 documented in this encounter Visit Diagnoses Not on filedocumented in this encounter Care Teams Metal Sheet Roller Operator Relationship Specialty Start Date End Date Rickey Do MD PCP - General 05/20/16 11/08/20 documented as of this encounter
--- OUTSIDE RECORDS SUMMARY | 2024-02-10 01:54 | XMS_ITS | Encounter Summary ---
Author Organization [facility] Address [address] [place] [address] Care Team Providers Care Marking Stitcher Name Role Phone Rickey Do MD Primary Care Provider [phone] Reason for Referral * Physical Therapy (Emergency) - Closed Specialty Diagnoses / Procedures Referred By Jp t Referred To Contact Physical Therapy Diagnoses DDD (degenerative disc disease), cervical DDD (degenerative disc disease), thoracic DDD (degenerative disc disease), lumbar Xena Valencia NP Phone: tel: fax: Referral ID Status Reason Start Date Expiration Date V isits Requested Visits Authorized [id number] Closed Specialty Services Required 09/09/2016 03/08/2017 12 12 Question Answer PTRFR PT Evaluate and Treat Therapy options discussed with patient? Yes Location provided for therapy services is: Patient requested/Patient preferred Comments Refer to Angelina Garrido at [facility] Reason for Visit * Reason Comments Diabetes Encounter Details Date Type Department Care Team (Late Contact Info) Description 09/09/2016 10:00 AM CDT Office Visit [facility] [address] [place] [id number] Xena Valencia NP [address] [place] [address] [place] [address] DDD (degenerative disc disease), cervical (Primary Dx); DDD (degenerative disc disease), thoracic; DDD (degenerative disc disease), lumbar; 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); Type 2 diabetes mellitus with diabetic autonomic neuropathy, without long-term current use of insulin (CMS/HCC); Peripheral neuropathy due to disorder of metabolism; Benign hypertension, endocrine; BMI 36.0-36.9,adult Social History Tobacco Use Types Packs/Day Years Used Date Smoking Tobacco: Former Cigarettes Q uit: 02/20/1985 Comments:Smoking History Pac ks/day: 1 Packs Alcohol Use Standard Drinks/Week Comments Yes 0 (1 standard drink = 0.6 oz pur e alcohol) Sex and Gender Information Value Date Recorded Sex Assigned at Not on file 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 Gender Identity Not on file Sexual Orientation Not on file documented as of this encounter Last Filed Vital Signs Vital Sign Reading Time Taken Comments Blood Pressure 128/68 09/09/2016 9:59 AM CDT Pulse 72 09/09/2016 9:59 AM CDT Temperature - - Respiratory Rate 18 09/09/2016 9:59 AM CDT Oxygen Saturation 98% 09/09/2016 9:59 AM CDT Inhaled Oxygen Concentration - - Weight 115.7 kg (255 lb) 09/09/2016 9:59 AM CDT Height 177.8 cm (5' 10 ) 09/09/2016 9:59 AM CDT Body Mass Index 36.59 09/09/2016 9:59 AM CDT documented in this encounter Ordered Prescriptions Prescription Sig Dispense Quantity Refills Last Filled Start Date End Date liraglutide (VICTOZA 3-STEWART) 0.6 mg/0.1 mL (18 mg/3 mL) injectionIndicatio ns:type 2 diabetes mellitus Inject 0.3 mL (1.8 mg total) under the skin daily. 27 mL 3 09/09/2016 09/28/2016 empagliflozin-metf ormin 25-1,000 mg tablet, IR & ER, biphasic 24hr Take 1 tablet by mouth daily. 90 tablet 3 09/09/2016 09/15/2016 documented in this encounter Progress Notes * Xena Valencia NP - 09/09/2016 10:00 AM CDT Subjective/Objective Patient ID: Ayden Santos is a 70 y.o. male. Chief Complaint Diabetes 70 yo cm who self dc xigduo due to diarrhea He went back on inokamet and has pain near kidney area Neck back pain Request physical therapy Review of Systems Constitutional: Negative. Negative for [...] testicular pain and urgency. Musculoskeletal: Positive for arthralgias. Negative for back pain, gait problem, joint swelling, myalgias, [...] and no deformity. Feet: Right Foot: Monofilament examabnormal. Protective Sensation: 6 sites tested. 2 sites sensed. Skin Integrity: Negative for callus. Left Foot: Monofilament examabnormal. Protective Sensation: 6 sites tested. 0 sites sensed. Skin Integrity: Negative for callus. Lymphadenopathy: He has no cervical adenopathy. Neurological: [...] normal. Judgment and thought content normal. BP 128/68 (BP Location: Right arm, Patient Position: Sitting) Pulse 72 Resp 18 Ht 177.8 cm (5' 10 ) Wt 116 kg (255 lb) SpO2 98% BMI 36.59 kg/m?? Assessment/Plan Diagnoses and all orders for this visit: 1. DDD (degenerative disc disease), cervical (Primary) Assessment & Plan: Ice posterior neck, Rest with periods of walking. Prescription sent to pharmacy take as directed. All risk and benefits were discussed with patient. Diagnosting testing pending. Report any changes ofvision, balance, speech, swallowing, memory or mental status changes. Patient verbalized understanding agrees with plan of care Orders: - Ambulatory referral order to Physical Therapy 2. DDD (degenerative disc disease), thoracic - Ambulatory referral order to Physical Therapy 3. DDD (degenerative disc disease), lumbar - Ambulatory referral order to Physical Therapy 4. Type 2 diabetes mellitus with other circulatory complication ([facility]) Assessment & Plan: Reviewed past medication, medical, [...] skin injury See medication orders for adjustment 5. Type 2 diabetes mellitus with diabetic autonomic neuropathy, without long- term current use of insulin (CMS/[facility]) Assessment & Plan: Reviewed past medication, medical, [...] of carbohydrates each meal to maintain glucose. Medicati on prescribed today the risk and benefits were discussed . Education for diabetic sick day, education for contacting the Nurse Practitioner , discussed need for nightly foot checks, adequate foot care, appropriate shoe fitting type and structure, never wear shoes without socks to avoid skin injury 6. Peripheral neuropathy due to disorder of metabolism Assessment & Plan: Do not go barefoot Wear supportive shoes and sock Never wear shoes without socks Check feet nightly Call for any change Fu podiatry 7. Benign hypertension, endocrine Assessment & Plan: dash [...] burn use sun screen hat and sleeves 8. BMI 36.0-36.9,adult Assessment & Plan: BMI Follow-up includes: nutrition counseling, exercise counseling and education provided. Other orders - empagliflozin-metformin 25-1,000 mg tablet, IR & ER, biphasic 24hr; Take 1 tablet by mouth daily. - liraglutide (VICTOZA 3-STEWART) 0.6 mg/0.1 mL (18 mg/3 mL) injection; Inject 0.3 mL (1.8 mg total) under the skin daily. documented in this encounter Miscellaneous Notes * Assessment & Plan Note - Xena Valencia NP - 09/13/2016 7:39 AM CDTAssociated Problem(s): Type 2 diabetes mellitus [...] of carbohydrates each meal to maintain glucose. Medicati on prescribed today the risk and benefits were discussed . Education for diabetic sick day, education for contacting the Nurse Practitioner , discussed need for nightly foot checks, adequate foot care, appropriate shoe fitting type and structure, never wear shoes without socks to avoid skin injury * Assessment & Plan Note - Xena Valencia NP - 09/13/2016 7:39 AM CDTAssociated Problem(s): Type 2 diabetes mellitus with circulatory disorder (CMS/HCC) (HCC) Reviewed past medication, medical, surgical, family, social, [...] skin injury See medication orders for adjustment * Assessment & Plan Note - Xena Valencia NP - 09/13/2016 7:38 AM CDTAssociated Problem(s): 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) (Resolved 02/07/2019) Do not go barefoot Wear supportive shoes and sock Never wear shoes without socks Check feet nightly Call for any change [facility] podiatry * Assessment & Plan Note - Xena Valencia NP - 09/13/2016 7:38 AM CDTAssociated Problem(s): DDD (degenerative disc disease), thoracolumbar Ice posterior neck, Rest with periods of walking. Prescription sent to pharmacy take as directed. All risk and benefits were discussed with patient. Diagnosting testing pending. Report any changes ofvision, balance, speech, swallowing, memory or mental status changes. Patient verbalized understanding agrees with plan of care * Assessment & Plan Note - Xena Valencia NP - 09/13/2016 7:38 AM CDTAssociated Problem(s): DDD (degenerative disc disease), [...] Plan Note - Xena Valencia NP - 09/13/2016 7:38 AM CDTAssociated Problem(s): Class 2 severe obesity due to excess calories with serious comorbidity and body mass index (BMI) of 37.0 to 37.9 in adult (HCC) BMI Follow-up includes: nutrition counseling, exercise counseling and education provided. * Assessment & Plan Note - Xena Valencia NP - 09/13/2016 7:37 AM CDTAssociated Problem(s): Hypertensive heart disease without [...] Priority Associated Diagnoses Order Schedule Ambulatory referral order to Physical Therapy Outpatient Referral STAT DDD (degenerative disc disease), cervical DDD (degenerative disc disease), thoracic DDD (degenerative disc disease), lumbar Ordered: 09/09/2016 documented as of this encounter Visit Diagnoses Diagnosis DDD (degenerative disc disease), cervical- Primary Degeneration of cervical intervertebral disc DDD (degenerative disc disease), thoracic Degeneration of thoracic or thoracolumbar intervertebral disc DDD (degenerative disc disease), lumbar Degeneration of lumbar or lumbosacral intervertebral disc 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 08/18/2016 09/09/2016 dulaglutide (TRULICITY) 1.5 mg/0.5 mL pen injector inject 0.5 milliliter by subcutaneous route every week in the abdomen, thigh, or upper arm rotating injection sites 02/04/2016 09/09/2016 documented as of this encounter Care Teams Marking Stitcher Relationship Specialty Start Date End Date Rickey Do MD PCP - General 05/20/16 11/08/20 documented as of this encounter
--- OUTSIDE RECORDS SUMMARY | 2024-02-10 01:54 | XMS_ITS | Encounter Summary ---
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
--- OUTSIDE RECORDS SUMMARY | 2024-02-10 01:54 | XMS_ITS | Encounter Summary ---
Author Organization [facility] Address 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
--- OUTSIDE RECORDS SUMMARY | 2024-02-10 01:54 | XMS_ITS | Encounter Summary ---
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
--- OUTSIDE RECORDS SUMMARY | 2024-02-10 01:54 | XMS_ITS | Encounter Summary ---
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, without long-term current use of insulin (HCC) Procedures [facility]; BLE; Yes Xena Valencia NP Phone: tel: fax: Referral ID Status Reason Start Date Expiration Date Visits Re quested Visits Authorized [id number] Closed 08/18/2016 02/14/2017 1 1 * MRI/CAT/PET Scan (Routine) - Closed Specialty Diagnoses / Procedures Referred By Jp buckner Referred To Contact Radiology Diagnoses Renal cyst, acquired, right Procedures CT Abdomen Pelvis W Contrast Xena Valencia NP Phone: tel: fax: Referral ID Status Reason Start Date Expiration Date Visits Re quested Visits Authorized [id number] Closed 08/18/2016 02/14/2017 1 1 Reason for Visit * Reason Comments Follow-up kidney concerns Encounter Details Date Type Department Care Team (Jamie matta Contact Info) Description 08/18/2016 9:15 AM CDT Office Visit [facility] [address] [place] [address] Xena Valencia, VASQUEZ [address] [place] [address] Peripheral neuropathy due to disorder of metabolism (Primary Dx); Benign hypertension, endocrine; 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 2 diabetes mellitus (CMS/HCC); Type 2 diabetes mellitus with other neurologic complication, without long-term current use of insulin (CMS/HCC); DDD (degenerative disc disease), cervical; Renal cyst, acquired, right; DDD (degenerative disc disease), thoracolumbar; Change in stool; Bleeding external hemorrhoids; BMI 35.0-35.9,adult Social History Tobacco Use Types Packs/Day Years Used Date Smoking Tobacco: Former Cigarettes Q uit: 02/20/1985 Comments:Smoking History Pac ks/day: 1 Packs Alcohol Use Standard Drinks/Week Comments Yes 0 (1 standard drink = 0.6 oz pur e alcohol) Sex and Gender Information Value Date Recorded Sex Assigned at Not on file Legal Sex Male 11:37 AM [employer]OW[employer] Gender Identity Not on file Sexual Orientation Not on file documented as of this encounter Last Filed Vital Signs Vital Sign Reading Time Taken Comments Blood Pressure 110/60 08/18/2016 9:20 AM CDT Pulse 74 08/18/2016 9:20 AM CDT Temperature 36.8 ??C (98.3 ??F) 08/18/2016 9:20 AM CD T Respiratory Rate 18 08/18/2016 9:20 AM CDT Oxygen Saturation 96% 08/18/2016 9:20 AM CDT Inhaled Oxygen Concentration - - Weight 114.8 kg (253 lb) 08/18/2016 9:20 AM CDT Height 180.3 cm (5' 10.98 ) 08/18/2016 9:20 AM C DT Body Mass Index 35.3 08/18/2016 9:20 AM CDT documented in this encounter Ordered Prescriptions Prescription Sig Dispense Quantity Refills Last Filled Start Date End Date dapagliflozin-metf ormin 10-1,000 mg tablet, IR & ER, biphasic 24hr Take 1 tablet by mouth daily. 30 tablet 08/18/2016 09/09/2016 documented in this encounter Progress Notes * Xena Valencia NP - 08/18/2016 9:15 AM CDT Subjective/Objective Patient ID: Ayden Santos is a 70 y.o. male. Chief Complaint Follow-up (kidney concerns) 70 yo male who presents with worse pain below right flank area and more frequent than previous overpast few weeks Denies change activity or elimination Ct scan 2013 shows 1cm kidney cyst right with normal renal function on labs Mri of adrenal gland shows fatty liver and left adrenal nodule There was also noted some ddd changes Urine has microscopic protien noted smbg fasting 150-170 presupper 130-140 Takes invokamet bid trulicity weekly Has co ble numbness tingling Has laurie uses cpap Review of Systems Constitutional: Negative. Negative for [...] testicular pain and urgency. Musculoskeletal: Positive for arthralgias and back pain. Negative for gait problem, joint swelling,myalgias, neck pain and neck stiffness. Skin: Negative. [...] rebound and no guarding. No hernia. Musculoskeletal: He exhibits no edema or tenderness. Right foot: There is normal range of motion and no deformity. Left foot: There is deformity. There is normal range of motion. Feet: Right Foot: Monofilament exam normal. Protective Sensation: 6 sites tested. 1 site sensed. Skin Integrity: Positive for dry skin. Left Foot: Monofilament exam normal. Protective Sensation: 6 sites tested. 1 site sensed. Skin Integrity: Positive for dry skin. Lymphadenopathy: He has no cervical adenopathy. Neurological: [...] normal. Judgment and thought content normal. BP 110/60 (BP Location: Right arm, Patient Position: Sitting) Pulse 74 Temp 36.8 ??C (98.3 ??F) Resp 18 Ht 180.3 cm (5' 10.98 ) Wt 115 kg (253 lb) SpO2 96% BMI 35.30 kg/m?? Body mass index is 35.3 kg/m??. Assessment/Plan Diagnoses and all orders for this visit: 1. Peripheral neuropathy due to disorder of metabolism (Primary) - TSH; Future - XR Spine Cervical Complete 4 Or 5 Vw; Future - XR Spine Thoracolumbar Junction 2Vw; Future - [facility]; BLE; Yes; Future 2. Benign hypertension, endocrine Assessment & Plan: Hypertension is improving with treatment. Continue current treatment regimen. Dietary sodium restriction. Weight loss. Regular aerobic exercise. Continue current medications. Blood pressure will be reassessed in 3 months. 3. 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 2 diabetes mellitus ([facility]) - Lipid panel; Future 4. Type 2 diabetes mellitus with other neurologic complication, without long- term current use of insulin ([facility]) Assessment & Plan: Diabetes is unchanged. Continue current treatment regimen. Reminded to bring in blood sugar diary at next visit. Dietary recommendations for ADA diet. Regular aerobic exercise. Discussed ways to avoid symptomatic hypoglycemia. Discussed sick day management. Discussed foot care. Diabetes will be reassessed in 3 months. Orders: - Comprehensive metabolic panel; Future - Hemoglobin A1c; Future - Microalbumin / creatinine ratio, urine, random; Future - Urinalysis reflex to microscopic and culture; Future - [facility]; BLE; Yes; Future 5. DDD (degenerative disc disease), cervical - [facility]; BLE; Yes; Future 6. Renal cyst, acquired, right Assessment & Plan: Renal condition is unchanged. Continue current treatment regimen. Weight loss. Monitor daily weight. Regular aerobic exercise. Continue current medications. Renal condition will be reassessed in 3 months Reviewed all diagnostics surgery referrals laboratory Answer all questions Orders: - CT Abdomen Pelvis W Contrast; Future 7. DDD (degenerative disc disease), thoracolumbar Assessment & Plan: Noted and discussed from ct scan Encourage lose weight Orders: - [facility]; BLE; Yes; Future 8. Change in stool Assessment & Plan: Has ibs likely diarrhea Reviewed all diagnostics surgery referrals laboratory Answer all questions cologuard negative recently 9. Bleeding external hemorrhoids Assessment & Plan: Continue otc prep Soak in tub Consider going back to hemorrhoid doctor Orders: - CBC with auto differential; Future 10. BMI 35.0-35.9,adult Assessment & Plan: BMI Follow-up includes: nutrition counseling, exercise counseling and education provided. Other orders - dapagliflozin-metformin 10-1,000 mg tablet, IR & ER, biphasic 24hr; Take 1 tablet by mouth daily. * Xena Valencia NP - 08/18/2016 9:15 AM CDT Call pt neck xray with arthritis no fracture Need to do yoga for stretching * Xena Valencia NP - 08/18/2016 9:15 AM CDT Call pt ct scan stable documented in this encounter Miscellaneous Notes * Assessment & Plan Note - Xena Valencia NP - 08/18/2016 10:23 AM CDTAssociated Problem(s): Bleeding external hemorrhoids (Resolved 02/24/2022) Continue otc prep Soak in tub Consider going back to hemorrhoid doctor * Assessment & Plan Note - Xena Valencia NP - 08/18/2016 10:22 AM CDTAssociated Problem(s): Change in stool (Resolved 09/09/2016) Has ibs likely diarrhea Reviewed all diagnostics surgery referrals laboratory Answer all questions cologuard negative recently * Assessment & Plan Note - Xena Valencia NP - 08/18/2016 10:21 AM CDTAssociated Problem(s): DDD (degenerative disc disease), thoracolumbar Noted and discussed from ct scan Encourage lose weight * Assessment & Plan Note - Xena Valencia NP - 08/18/2016 10:20 AM CDTAssociated Problem(s): Adrenal cyst (HCC) (Resolved 11/05/2020) Reviewed all diagnostics surgery referrals laboratory Answer all questions * Assessment & Plan Note - Xena Valencia NP - 08/18/2016 10:20 AM CDTAssociated Problem(s): Renal cyst, acquired, right Renal condition is unchanged. Continue current treatment regimen. Weight loss. Monitor daily weight. Regular aerobic exercise. Continue current medications. Renal condition will be reassessed in 3 months Reviewed all diagnostics surgery referrals laboratory Answer all questions * Assessment & Plan Note - Xena Valencia NP - 08/18/2016 10:18 AM CDTAssociated Problem(s): Class 2 severe obesity due to excess calories with serious comorbidity and body mass index (BMI) of 37.0 to 37.9 in adult ([facility]) BMI Follow-up includes: nutrition counseling, exercise counseling and education provided. * Assessment & Plan Note - Xena Valencia NP - 08/18/2016 10:18 AM CDTAssociated Problem(s): Hypertensive heart disease without heart failure Hypertension is improving with treatment. Continue current treatment regimen. Dietary sodium restriction. Weight loss. Regular aerobic exercise. Continue current medications. Blood pressure will be reassessed in 3 months. * Assessment & Plan Note - Xena Valencia NP - 08/18/2016 10:17 AM CDTAssociated Problem(s): Type 2 diabetes mellitus with neurologic complication ([facility]) (Resolved 11/05/2020) Diabetes is unchanged. Continue current treatment regimen. Reminded to bring in blood sugar diary at next visit. Dietary recommendations for ADA diet. Regular aerobic exercise. Discussed ways to avoid symptomatic hypoglycemia. Discussed sick day management. Discussed foot care. Diabetes will be reassessed in 3 months. 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, without long-term current use of insulin ([facility]) Expected: 09/01/2016, Expires: 08/18/2017 documented as of this encounter Procedures Procedure Name Priority Date/Time Associated Diagnosis Comments CT ABDOMEN PELVIS W CONTRAST Schedule Routine, Read Routine (OP Routine) 09/05/2016 2:05 PM CDT Renal cyst, acquired, right XR SPINE LUMBAR 2 OR 3 VIEWS Schedule Routine, Read Routine (OP Routine) 09/05/2016 12:39 PM CDT XR SPINE CERVICAL COMPLETE 4 OR 5 VW Schedule Routine, Read Routine (OP Routine) 09/05/2016 12:39 PM CDT Peripheral neuropathy due to disorder of metabolism (CMS/HCC) documented in this encounter Results * CT Abdomen Pelvis W Contrast (09/05/2016 2:05 PM CDT) Anatomical Region Laterality Modality Body N/A Computed Tomogra phy 09/05/2016 2:05 PM CDT Narrative 09/05/2016 2:[address] Abd/Pel W ?73254 ??Acc#: ??[id number] DATE OF EXAM: ??Sep 05 2016 ?? CT Abd/Pel W ?57380 HISTORY: renal cyst. ??Right flank pain. TECHNIQUE: Helically acquired axial images were obtained from the dome of the diaphragm to the pubic symphysis. CONTRAST: 100 mL Optiray 320, Oral contrast. COMPARISON: 12/19/[address] [facility]. FINDINGS: Mild fatty infiltration of the liver is present. ??No focal lesions are present. ??The spleen, pancreas, adrenals and kidneys appear normal. The small and large bowel demonstrate normal caliber with no evidence of mass or obstruction. ??The appendix is normal. ??Sigmoid diverticulosis is present. ??There is no evidence of ascites or adenopathy. ??Diffuse vascular calcification is present. ??Significant prostatic hypertrophy is present. ??The pelvic contents are otherwise unremarkable. The lung bases are clear. HNHIMPRESSION: ?? 1. ??MILD FATTY INFILTRATION OF THE LIVER. 2. ??SIGNIFICANT PROSTATIC HYPERTROPHY. 3. ??VASCULAR CALCIFICATION. 4. ??SIGMOID DIVERTICULOSIS. NElectronically signed by: Ken Sanders M.D. Interpreting Physician: ??DR CAM FISHER M.D. ??Read on: ??Sep 05 2016 ?? 9:36A Transcribed by: ??PSC ??On: Sep 05 2016 ??9:34A Approved Electronically by: ??NATALIA Ruiz, DR LEVY ??on: ??Sep 05 2016 ?? 9:34A Ordering DR: XENA VALENCIA Attending DR: ANMOL DO Attending: ??ANMOL DO Requesting: ??XENA VALENCIA Requesting Fax: ??[phone] Attending Fax: ??[phone] Attending ID: ??[id number] Requesting ID: ??[id number] Report To 1 ID: ??[id number] Report To 1 Name: ??ANMOL DO Report To 1 FAX: ??[phone] [employer] Order #: ??[id number] Procedure Note Miscellaneous, Not In File / Provider, MD Migue - 09/07/2016 CT Abd/Pel W 95325 Acc#: [id number] DATE OF EXAM: Sep [address] Abd/Pel W 93435 HISTORY: renal cyst. Right flank pain. TECHNIQUE: Helically acquired axial images were obtained from the dome of the diaphragm to the pubic symphysis. CONTRAST: 100 mL Optiray 320, Oral contrast. COMPARISON: 12/19/[address] [facility]. FINDINGS: Mild fatty infiltration of the liver is present. No focal lesions are present. The spleen, pancreas, adrenals and kidneys appear normal. The small and large bowel demonstrate normal caliber with no evidence of mass or obstruction. The appendix is normal. Sigmoid diverticulosis is present. There is no evidence of ascites or adenopathy. Diffuse vascular calcification is present. Significant prostatic hypertrophy is present. The pelvic contents are otherwise unremarkable. The lung bases are clear. HNHIMPRESSION: 1. MILD FATTY INFILTRATION OF THE LIVER. 2. SIGNIFICANT PROSTATIC HYPERTROPHY. 3. VASCULAR CALCIFICATION. 4. SIGMOID DIVERTICULOSIS. NElectronically signed by: Ken Sanders M.D. Interpreting Physician: DR CAM FISHER M.D. 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 EXAM: XR Lumbar Spine 2-3 Views [id number] AP, lateral, and L5-S1 views HISTORY: peripheral neuropathy. COMPARISON: None FINDINGS: Five ede-kyp-xatavil lumbar vertebrae are seen. No acute fracture, subluxation, or wedge compression deformities are noted. ??Vertebral body heights and bony alignment are normal. ??Disc space narrowing with vacuum disc phenomenon is noted at L5-S1. ??Facet arthropathy at L4-L5 and L5-S1 are seen with neural foraminal narrowing suggested. No pars defects are identified. ??Atherosclerotic calcification is seen in the abdominal aorta without evidence of aneurysmal dilatation noted. IMPRESSION: 1. ??No acute fracture or subluxation. 2. ??Mild multilevel lumbar spondylosis with probable neuroforaminal narrowing at L4-L5 and L5-S1. Electronically signed by: Shane Decker M.D. Interpreting Physician: ??SHANE DECKER M.D. ??Read on: ??Sep 05 2016 ?? 7:54A Transcribed by: ??PSC ??On: Sep 05 2016 ??7:52A Approved Electronically by: ??SHANE DECKER M.D. ??on: ??Sep 05 2016 ?? 7:52A Ordering DR: XENA VALENCIA Attending DR: ANMOL DO Attending: ??ANMOL DO Requesting: ??XENA VALENCIA Requesting Fax: ??[phone] Attending Fax: ??[phone] Attending ID: ??[id number] Requesting ID: ??[id number] Report To 1 ID: ??[id number] Report To 1 Name: ??ANMOL DO Report To 1 FAX: ??[phone] [employer] Order #: ??[id number] Procedure Note Miscellaneous, Not In File / Provider, MD Migue - 09/05/2016 XR Lumbar Spine 2-3 Views [id number] Acc#: [id number] DATE OF EXAM: Sep 05 2016 EXAM: XR Lumbar Spine 2-3 Views 35445 AP, lateral, and L5-S1 views HISTORY: peripheral neuropathy. COMPARISON: None FINDINGS: Five hms-vgc-gkzafkl lumbar vertebrae are seen. No acute fracture, subluxation, or wedge compression deformities are noted. Vertebral body heights and bony alignment are normal. Disc space narrowing with vacuum disc phenomenon is noted at L5-S1. Facet arthropathy at L4-L5 and L5-S1 are seen with neural foraminal narrowing suggested. No pars defects are identified. Atherosclerotic calcification is seen in the abdominal aorta without evidence of aneurysmal dilatation noted. IMPRESSION: 1. No acute fracture or subluxation. 2. Mild multilevel lumbar spondylosis with probable neuroforaminal narrowing at L4-L5 and L5-S1. Electronically signed by: Shane Decker M.D. Interpreting Physician: SHANE DECKER M.D. Read on: Sep 05 2016 7:54A Transcribed by: PSC On: Sep 05 2016 7:52A Approved Electronically by: SHANE DECKER M.D. 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 EXAM: XR Cervical Spine Routine 4 View AP, lateral, oblique, and odontoid views HISTORY: peripheral neuropathy. COMPARISON: Radiographs from 07/30/2013 and a cervical spine MRI from 09/06/2013 FINDINGS: No acute fracture, subluxation, or wedge compression deformities are seen. ??The vertebral body heights and bony alignment are normal. Disc space narrowing and facet arthropathy are seen throughout the cervical spine. ??No prevertebral soft tissue swelling is evident. The lateral mass alignment is symmetric. IMPRESSION: 1. ??No acute fracture or subluxation. 2. ??Multilevel spondylosis. Electronically signed by: Shane Decker M.D. Interpreting Physician: ??SHANE DECKER M.D. ??Read on: ??Sep 05 2016 ?? 7:57A Transcribed by: ??PSC ??On: Sep 05 2016 ??7:55A Approved Electronically by: ??SHANE DECKER M.D. ??on: ??Sep 05 2016 ?? 7:55A Ordering DR: XENA VALENCIA Attending DR: ANMOL DO Attending: ??ANMOL DO Requesting: ??XENA VALENCIA Requesting Fax: ??[phone] Attending Fax: ??[phone] Attending ID: ??[id number] Requesting ID: ??[id number] Report To 1 ID: ??[id number] Report To 1 Name: ??ANMOL DO Report To 1 FAX: ??[phone] [employer] Order #: ??[id number] Procedure Note Miscellaneous, Not In File / Provider, MD Migue - 09/05/2016 XR Cervical Spine Routine 4 View Acc#: [id number] DATE OF EXAM: Sep 05 2016 EXAM: XR Cervical Spine Routine 4 View AP, lateral, oblique, and odontoid views HISTORY: peripheral neuropathy. COMPARISON: Radiographs from 07/30/2013 and a cervical spine MRI from 09/06/2013 FINDINGS: No acute fracture, subluxation, or wedge compression deformities are seen. The vertebral body heights and bony alignment are normal. Disc space narrowing and facet arthropathy are seen throughout the cervical spine. No prevertebral soft tissue swelling is evident. The lateral mass alignment is symmetric. IMPRESSION: 1. No acute fracture or subluxation. 2. Multilevel spondylosis. Electronically signed by: Shane Decker M.D. Interpreting Physician: SHANE DECKER M.D. Read on: Sep 05 2016 7:57A Transcribed by: [facility] On: Sep 05 2016 7:55A Approved Electronically by: SHANE DECKER M.D. 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)- Primary Benign hypertension, endocrine Other secondary hypertension, benign 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) Type 2 diabetes mellitus with other neurologic complication, without long-term current use of insulin (HCC) DDD (degenerative disc disease), cervical Degeneration of cervical intervertebral disc Renal cyst, acquired, right DDD (degenerative disc disease), thoracolumbar Degeneration of thoracic or thoracolumbar intervertebral disc Change in stool Bleeding external hemorrhoids External hemorrhoids with other complication BMI 35.0-35.9,adult documented in this encounter Discontinued Medications Medication Sig Discontinue Reason Start Date End Da te canagliflozin-metformin (INVOKAMET) 50-1,000 mg tablet take 1 tablet by oral route 2 times every day with meals 02/17/2015 08/18/2016 canagliflozin-metformin (INVOKAMET) 50-1,000 mg tablet take 1 tablet by oral route 2 times every day with meals 04/11/2016 08/18/2016 documented as of this encounter Orders Lab Orders Without Results Count Last Ordered D ate First Ordered Date CBC WITH AUTO DIFFERENTIAL 1 08/18/2016 COMPREHENSIVE METABOLIC PANEL 1 08/18/2016 HEMOGLOBIN A1C 1 08/18/2016 LIPID PANEL 1 08/18/2016 MICROALBUMIN / CREATININE UR INE RATIO, RANDOM 1 08/18/2016 TSH 1 08/18/2016 URINALYSIS AND REFLEX TO LISA ROSCOPIC AND CULTURE 1 08/18/2016 Imaging Orders Without Results Count Last Order ed Date First Ordered Date XR SPINE THORACOLUMBAR JUNCT ION 2 OR MORE VIEWS 1 08/18/2016 documented in this encounter Care Teams Photo Technician Relationship Specialty Start Date End Date Anmol Do MD PCP - General 05/20/16 11/08/20 documented as of this encounter
--- OUTSIDE RECORDS SUMMARY | 2024-02-10 01:54 | XMS_ITS | Encounter Summary ---
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 Gender Identity Not on file Sexual Orientation Not on file documented as of this encounter Medications at Time of Discharge coenzyme Q10 (COQ-10) 100 mg capsule take 3 by Oral route every evening 0 0 04/11/2016 acyclovir (ZOVIRAX) 400 mg tablet take 1 tablet by oral route 2 times every day 180 3 02/04/2016 7 aspirin (BABY ASPIRIN) 81 mg chewable tablet chew 1 tablet (81MG) by oral route every day 0 12/12/2011 9 blood glucose diagnostic (ONETOUCH VERIO) strip test 1 by blood sugar route daily 100 strip 3 07/30/2013 7 cholecalciferol (VITAMIN D3) 1,000 unit capsule one daily 0 04/11/2016 9 dapagliflozin-me tformin 10-1,000 mg tablet, IR & ER, biphasic 24hr Take 1 tablet by mouth daily. 30 tablet 08/18/2016 7 dulaglutide (TRULICITY) 1.5 mg/0.5 mL pen injector inject 0.5 milliliter by subcutaneous route every week in the abdomen, thigh, or upper arm rotating injection sites 12 5 02/04/2016 7 lancets (Nanoviuch ultrasoft) misc test by by finger stick route 3 times every day 300 8 06/30/2011 9 metoprolol (LOPRESSOR) 50 mg tablet Take 1 tablet by mouth twice a day with meals 180 3 05/05/2009 7 nitroglycerin (NITROSTAT) 0.[address] [...] daily up to four time a day 150 11 08/19/2011 7 simvastatin (ZOCOR) 20 mg tablet Take 1 tablet by mouth every day in the evening 90 3 07/21/2008 7 valsartan-hydroc hlorothiazide (DIOVAN-HCT) 320-25 mg per tablet Take 1 tablet by mouth daily 90 3 01/28/2013 7 documented as of this encounter Discharge Disposition Disposition Code Departure Means Destination Discharge to home or self care documented in this encounter Progress Notes * Xena Valencia NP - 09/05/2016 11:59 PM CDT Call pt xray back no fracture all looks fine Needs physical therapy documented in this encounter Plan of Treatment Not on file documented as of this encounter Procedures Procedure Name Priority Date/Time Associated Diagnosis Comments DISCHARGE LABORATORY CUMULATIVE REPORT 09/06/2016 12:00 AM CDT XR SPINE 1 VW Routine 09/05/2016 12:39 PM CDT CREATININE, WHOLE BLOOD STAT 09/05/2016 6:55 AM CDT documented in this encounter Results * DISCHARGE LABORATORY CUMULATIVE REPORT (09/06/2016 12:00 AM CDT) Narrative 09/06/2016 12:00 AM CDT Ordered by an unspecified provider. us Historical Provider LAB BLOOD ORDERABLES Anya l Result * XR Spine 1 VW (09/05/2016 12:39 PM CDT) Anatomical Region Laterality Modality Spine N/A Radiographic Reena ging 09/05/2016 12:3 9 PM CDT Narrative 09/05/2016 12:39 PM CDT XR Thoracic Spine 2 View [id number] ??Acc#: ??[id number] DATE OF EXAM: ??Sep 05 2016 ?? EXAM: XR Thoracic Spine 2 View [id number] AP, lateral, and swimmer's HISTORY: peripheral neuropathy. COMPARISON: 01/02/2012 FINDINGS: 12 rib-bearing thoracic vertebrae are seen. ??No fracture, subluxation, or wedge compression deformity is noted. ??Vertebral body heights, bony alignment, and intervertebral disc spaces are normal. Anterior vertebral body osteophytes are noted at multiple levels. IMPRESSION: No acute fracture or subluxation. Electronically signed by: Shane Decker M.D. Interpreting Physician: ??SHANE DECKER M.D. ??Read on: ??Sep 05 2016 ?? 7:55A Transcribed by: ??PSC ??On: Sep 05 2016 ??7:53A Approved Electronically by: ??BRIANNE Ruiz, SHANE ??on: ??Sep 05 2016 ?? 7:53A Ordering DR: XENA VALENCIA Attending DR: ANMOL DO Attending: ??ANMOL DO Requesting: ??XENA VALENCIA Requesting Fax: ??[phone] Attending Fax: ??[phone] Attending ID: ??[id number] Requesting ID: ??[id number] Report To 1 ID: ??[id number] Report To 1 Name: ??ANMOL DO Report To 1 FAX: ??[phone] NextGen Order #: ??[id number] Procedure Note Miscellaneous, Not In File / Provider, MD Migue - 09/06/2016 XR Thoracic Spine 2 View [id number] Acc#: [id number] DATE OF EXAM: Sep 05 2016 EXAM: XR Thoracic Spine 2 View [id number] AP, lateral, and swimmer's HISTORY: peripheral neuropathy. COMPARISON: 01/02/2012 FINDINGS: 12 rib-bearing thoracic vertebrae are seen. No fracture, subluxation, or wedge compression deformity is noted. Vertebral body heights, bony alignment, and intervertebral disc spaces are normal. Anterior vertebral body osteophytes are noted at multiple levels. IMPRESSION: No acute fracture or subluxation. Electronically signed by: Shane Decker M.D. Interpreting Physician: SHANE DECKER M.D. Read on: Sep 05 2016 7:55A Transcribed by: [facility] On: Sep 05 2016 7:53A Approved Electronically by: SHANE DECKER M.D. on: Sep 05 2016 7:53A Ordering DR: XENA VALENCIA Attending DR: ANMOL DO Attending: ANMOL DO Requesting: XENA VALENCIA Requesting Attending Attending ID: [id number] Requesting ID: [id number] Report To 1 ID: [id number] Report To 1 Name: ANMOL DO Report To 1 FAX: [phone] NextGen Order #: [id number] us Xena Valencia NUCLEAR MEDICINE SPECIALIST IMG XR PROCEDURES Fi nal Result * (ABNORMAL) Creatinine, whole blood (09/05/2016 6:55 AM CDT) Creatinine, bld 1.34(H) 0.60 - 1.30 mg/dL [facility] ([place]) Blood specimen (specimen) 09/05/2016 6:55 AM CDT 09/05/2016 6:58 AM CDT us Anmol Do MD LAB BLOOD ORDERABLES Final Res ult [facility] ([place]) [facility] [place] [address] documented in this encounter Visit Diagnoses Not on filedocumented in this encounter Care Teams Beef Pusher Relationship Specialty Start Date End Date Anmol Do MD PCP - General 05/20/16 11/08/20 documented as of this encounter
--- OUTSIDE RECORDS SUMMARY | 2024-02-10 01:54 | XMS_ITS | Encounter Summary ---
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
--- OUTSIDE RECORDS SUMMARY | 2024-02-10 01:54 | XMS_ITS | Encounter Summary ---
Author Organization [facility] Facility Care Team Providers Care Full Service Vending Driver Name Role Phone Rickey Do MD Primary Care Provider [phone] Encounter Details Date Type Department Care Team (Late st Contact Info) Description 02/11/2015 7:15 AM NATURAL GAS TECHNICIAN - 02/11/2015 11:59 PM NATURAL GAS TECHNICIAN Hospital Encounter [facility] CLINCONV Rickey Do MD [address] [place] [address] Xena Valencia, MEDICAL OFFICE CLERK [address] [address] Angina pectoris (CMS/HCC) Social History Tobacco Use Types Packs/Day Years Used Date Smoking Tobacco: Former Cigarettes Q uit: 02/20/1985 Comments:Smoking History Pac ks/day: 1 Packs Alcohol Use Standard Drinks/Week Comments Yes 0 (1 standard drink = 0.6 oz pur e alcohol) Sex and Gender Information Value Date Recorded Sex Assigned at Not on file 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 Gender Identity Not on file Sexual Orientation Not on file documented as of this encounter Medications at Time of Discharge aspirin (BABY ASPIRIN) 81 mg chewable tablet chew 1 tablet (81MG) by oral route every day 0 12/12/2011 05/02/2018 blood glucose diagnostic (ONETOUCH VERIO) strip test 1 by blood sugar route daily 100 strip 3 07/30/2013 01/17/2017 lancets (onetouch ultrasoft) misc test by by finger stick route 3 times every day 300 8 06/30/2011 11/21/2018 metoprolol (LOPRESSOR) 50 mg tablet Take 1 tablet by mouth twice a day with meals 180 3 05/05/2009 10/07/2016 pen needle, diabetic (PEN NEEDLE) 31 gauge x 1/4 needle for use with insulin pen daily up to four time a day 150 11 08/19/2011 09/28/2016 simvastatin (ZOCOR) 20 mg tablet Take 1 tablet by mouth every day in the evening 90 3 07/21/2008 09/13/2016 valsartan-hydroch lorothiazide (DIOVAN-HCT) 320-25 mg per tablet Take 1 tablet by mouth daily 90 3 01/28/2013 09/27/2016 documented as of this encounter Plan of Treatment Not on file documented as of this encounter Procedures Procedure Name Priority Date/Time Associated Diagnosis Comments STRESS ECHO EXERCISE W DOPPLER/CF WO CONTRAST 02/11/2015 documented in this encounter Results * STRESS ECHO EXERCISE W DOPPLER/CF WO CONTRAST (02/11/2015) Anatomical Region Laterality Modality Echocardiography Narrative 02/11/2015 Ordered by an unspecified provider. us Historical Provider CV ECHO PROCEDURES Final Result documented in this encounter Visit Diagnoses Diagnosis Angina pectoris (HCC) Other and unspecified angina pectoris documented in this encounter Care Teams Full Service Vending Driver Relationship Specialty Start Date End Date Rickey Do MD PCP - General 11/24/08 12/02/15 documented as of this encounter
--- OUTSIDE RECORDS SUMMARY | 2024-02-10 01:54 | XMS_ITS | Encounter Summary ---
Author Organization [facility] Healthcare Address [address] [place] [address] Care Team Providers Care Beef Specialist Name Role Phone Anmol Do MD Primary Care Provider Encounter Details Date Type Department Care Team (Late st Contact Info) Description 02/23/2015 7:05 AM CATERING SALES MANAGER - 02/23/2015 11:59 PM CATERING SALES MANAGER Hospital Encounter [facility] CLINCONV Anmol Do MD [address] [place] [address] Takotsubo syndrome Social History Tobacco Use Types Packs/Day Years Used Date Smoking Tobacco: Former Cigarettes Q uit: 02/20/1985 Comments:Smoking History Pac ks/day: 1 Packs Alcohol Use Standard Drinks/Week Comments Yes 0 (1 standard drink = 0.6 oz pur e alcohol) Sex and Gender Information Value Date Recorded Sex Assigned at Not on file 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 Gender Identity Not on file Sexual Orientation Not on file documented as of this encounter Medications at Time of Discharge aspirin (BABY ASPIRIN) 81 mg chewable tablet chew 1 tablet (81MG) by oral route every day 0 12/12/2011 05/02/2018 blood glucose diagnostic (ONETOUCH VERIO) strip test 1 by blood sugar route daily 100 strip 3 07/30/2013 01/17/2017 canagliflozin-met formin (INVOKAMET) 50-1,000 mg tablet take 1 tablet by oral route 2 times every day with meals 180 3 02/17/2015 08/18/2016 lancets (onetouch ultrasoft) misc test by by [...] Name Priority Date/Time Associated Diagnosis Comments STRESS TEST ONLY, EXERCISE Routine 02/23/2015 12:27 PM CATERING SALES MANAGER NM MPI SPECT (REST AND/OR STRESS) MULTIPLE STUDIES Routine 02/23/2015 10:50 AM CATERING SALES MANAGER documented in this encounter Results * Stress Test Only, Exercise (02/23/2015 12:27 PM CATERING SALES MANAGER) Anatomical Region Laterality Modality Other 02/23/2015 12:2 7 PM CATERING SALES MANAGER Narrative 03/03/2015 7:53 AM CATERING SALES MANAGER STRESS TEST ??Acc#: ??[id number] STRESS TEST ??Acc#: ??[id number] DATE OF EXAM: ??Feb ??2015 CLINICAL HISTORY: RESULT: EXERCISE STRESS TEST REPORT INDICATION: ??Ayden Santos is a 69 year old male with chest discomfort with exertion for several months. Risk factors include: age over 45, family history f coronary artery disease, diabetes, dyslipidemia, obesity, hypertension and also remote smoking history. MEDICATIONS: ??Metoprolol, Simvastatin, Valsartan/hydrochlorothiazide, Welcol, coenzyme Q10, Victosa and some vitamins. Resting ECG shows sinus rhythm at 95 beats per minute with a normal axis. Poor R wave progression. PROCEDURE: ??The patient underwent a Melquiades protocol exercise treadmill testing with Cardiolite achieving an actual duration of exercise of 7 minutes and 22 seconds. ??The test was stopped due to heart rate being achieved. ??Maximum achieved heart rate was 142 beats per minute which is about 95 percent of predicted. ??There were some pcs during stress with some PVCs noted in recovery. ??The patient had no chest pain. ??Starting at about 5 minutes into exercise, some ST segment depression noted Inferolaterally. ??Maximum ST segment depression was 1.5 mm flattened inferiorly and 1.0 mm somewhat upsloping laterally. These changes are consistent with myocardial ischemia. ??Blood pressure was 124/70 at rest and went up nicely to 180/96 at the end of exercise. IMPRESSION: 1. ?? Adequate stress testing with regards to heart rate. 2. ?? Good exercise tolerance for age and general medical condition. 3. ?? Overall test response is normal by symptoms but abnormal by EKG's. Nuclear images are pending and this portion will be interpreted by a radiologist later today. Interpreting Physician: ??DR RADHA FUENTES M.D. ??Read on: ??Chevy ??2015 11:43A Transcribed by: ??jon ??On: Feb ??2015 11:43A Approved Electronically by: ??JAMAL Ruiz, DR GARCIA ??on: ??Mar 03 2015 7:53A Attending: ??ANMOL DO Requesting: ??ANMOL DO Requesting Fax: ??-- Attending Fax: ??-- Attending ID: ??[id number] Requesting ID: ??[id number] Report To 1 ID: ??[id number] Report To 1 Name: ??ANMOL DO Report To 1 FAX: ??-- NextGen Order #: Procedure Note Provider, MD Migue - 06/21/2016 STRESS TEST Acc#: [id number] STRESS TEST Acc#: [id number] DATE OF EXAM: Feb 23 2015 CLINICAL HISTORY: RESULT: EXERCISE STRESS TEST REPORT INDICATION: Ayden Santos is a 69 year old male with chest discomfort with exertion for several months. Risk factors include: age over 45,family history f coronary artery disease, diabetes, dyslipidemia, obesity,hypertension and also remote smoking history. MEDICATIONS: Metoprolol, Simvastatin, Valsartan/hydrochlorothiazide,Welcol, coenzyme Q10, Victosa and some vitamins. Resting ECG shows sinusrhythm at 95 beats per minute with a normal axis. Poor R waveprogression. PROCEDURE: The patient underwent a Melquiades protocol exercise treadmilltesting with Cardiolite achieving an actual duration of exercise of 7minutes and 22 seconds. The test was stopped due to heart rate beingachieved. Maximum achieved heart rate was 142 beats per minute which isabout 95 percent of predicted. There were some pcs during stress withsome PVCs noted in recovery. The patient had no chest pain. Starting atabout 5 minutes into exercise, some ST segment depression notedInferolaterally. Maximum ST segment depression was 1.5 mm flattenedinferiorly and 1.0 mm somewhat upsloping laterally. These changes areconsistent with myocardial ischemia. Blood pressure was 124/70 at restand went up nicely to 180/96 at the end of exercise. IMPRESSION: 1. Adequate stress testing with regards to heart rate. 2. Good exercise tolerance for age and general medical condition. 3. Overall test response is normal by symptoms but abnormal by EKG's.Nuclear images are pending and this portion will be interpreted by aradiologist later today. Interpreting Physician: DR RADHA FUENTES M.D. Read on: Feb 24 201511:43A Transcribed by: jon On: Feb 24 2015 11:43A Approved Electronically by: JAMAL Ruiz, DR GARCIA on: Mar 03 20157:53A Attending: ANMOL DO Requesting: ANMOL DO Requesting Fax: -- Attending Fax: -- Attending ID: [id number] Requesting ID: [id number] Report To 1 ID: [id number] Report To 1 Name: ANMOL DO Report To 1 FAX: -- NextGen Order #: us Historical Provider CV STRESS PROCEDURES Anya l Result * NM MPI Spect (Rest And Stress) Multiple Studies (02/23/2015 10:50 AM CATERING SALES MANAGER) Anatomical Region Laterality Modality Body N/A Nuclear Medicine 02/23/2015 10:5 0 AM CATERING SALES MANAGER Narrative 02/23/2015 3:19 PM CATERING SALES MANAGER MR KAILYN Myocard Perf Rest/Stress ??Acc#: ??[id number] DATE OF EXAM: ??Feb ??2015 CLINICAL HISTORY: Angina. ??Dyslipidemia. ??Diabetes. ??Hypertension. ??History of tobacco use. ??Family history of heart disease. RESULT: REST/STRESS SESTAMIBI Tc 99m SESTAMIBI MYOCARDIAL PERFUSION REST-STRESS STUDY Following the intravenous administration of 10.9mCi of Tc 99m Sestamibi and an appropriate interval to allow for biliary clearance, long and short axis rest SPECT images were reconstructed. ??Under Dr. Fuentes's supervision and following a standard interval, 31.4mCi of Tc 99m were administered intravenously and long and short axis stress SPECT images were obtained. ??66% of maximum predicted heart rate was reached. Apparent reversible defect inferior myocardium midventricular region extending to the basilar region. ??This is supported on several axis images, as well as some of the vertical long axis images. No abnormality in right ventricular activity was identified. SPECT MUGA: Following the intravenous administration of 31.4mCi of Tc 99m Sestamibi, ventricular volumes were calculated from vertical and horizontal long axis gated SPECT perfusion images and left ventricular ejection fraction on stress images was calculated at 66%. ??(Normal range 50-75%). ??No wall motion abnormality was identified. IMPRESSION: 1. EVIDENCE OF REVERSIBLE ISCHEMIA INFERIOR MYOCARDIUM. 2. NORMAL SPECT MUGA, WITH NO WALL MOTION ABNORMALITY IDENTIFIED. 3. NORMAL LEFT VENTRICULAR EJECTION FRACTION OF 66%. Interpreting Physician: ??NORM GALDAMEZ M.D. ??Read on: ??Feb ??2015 10:50A Transcribed by: ??mrr ??On: Feb ??2015 10:58A Approved Electronically by: ??NORM GALDAMEZ M.D. ??on: ??Feb ??2015 ??3:19P Attending: ??ANMOL DO Requesting: ??ANMOL DO Requesting Fax: ??-- Attending Fax: ??-- Attending ID: ??[id number] Requesting ID: ??[id number] Report To 1 ID: ??[id number] Report To 1 Name: ??ANMOL DO Report To 1 FAX: ??-- NextGen Order #: Procedure Note Provider, MD Migue - 06/16/2016 MR AVINA Myocard Perf Rest/Stress Acc#: [id number] DATE OF EXAM: Feb 23 2015 CLINICAL HISTORY: Angina. Dyslipidemia. Diabetes. Hypertension. History of tobacco use.Family history of heart disease. RESULT: REST/STRESS SESTAMIBI Tc 99m SESTAMIBI MYOCARDIAL PERFUSION REST-STRESSSTUDY Following the intravenous administration of 10.9mCi of Tc 99mSestamibi and an appropriate interval to allow for biliary clearance, longand short axis rest SPECT images were reconstructed. Under Dr. Fuentes'ssupervision and following a standard interval, 31.4mCi of Tc 99m wereadministered intravenously and long and short axis stress SPECT imageswere obtained. 66% of maximum predicted heart rate was reached. Apparentreversible defect inferior myocardium midventricular region extending tothe basilar region. This is supported on several axis images, as well assome of the vertical long axis images. No abnormality in right ventricularactivity was identified. SPECT MUGA: Following the intravenous administration of 31.4mCi of Tc 99m Sestamibi,ventricular volumes were calculated from vertical and horizontal long axisgated SPECT perfusion images and left ventricular ejection fraction onstress images was calculated at 66%. (Normal range 50-75%). No wallmotion abnormality was identified. IMPRESSION: 1. EVIDENCE OF REVERSIBLE ISCHEMIA INFERIOR MYOCARDIUM. 2. NORMAL SPECT MUGA, WITH NO WALL MOTION ABNORMALITY IDENTIFIED. 3. NORMAL LEFT VENTRICULAR EJECTION FRACTION OF 66%. Interpreting Physician: NORM GALDAMEZ M.D. Read on: Feb 23 2015 10:50A Transcribed by: lakisha On: Feb 23 2015 10:58A Approved Electronically by: NORM GALDAMEZ M.D. on: Feb 23 2015 3:19P Attending: ANMOL DO Requesting: ANMOL DO Requesting Fax: -- Attending Fax: -- Attending ID: [id number] Requesting ID: [id number] Report To 1 ID: [id number] Report To 1 Name: ANMOL DO Report To 1 FAX: -- NextGen Order #: us Historical Provider MD CALLI AVINA PROCEDURES Final R esult documented in this encounter Visit Diagnoses Diagnosis Takotsubo syndrome documented in this encounter Care Teams Beef Specialist Relationship Specialty Start Date End Date Anmol Do MD PCP - General 11/24/08 12/02/15 documented as of this encounter
--- OUTSIDE RECORDS SUMMARY | 2024-02-10 01:54 | XMS_ITS | Encounter Summary ---
Author Organization [facility] Address [address] [place] [address] Care Team Providers Care Home Care Associate Name Role Phone Rickey Do MD Primary Care Provider [phone] Reason for Visit * Reason Onset Date Comments Dr Do/Xena Medical Question 09/12/2016 Encounter Details Date Type Department Care Team (Late st Contact Info) Description 09/12/2016 Telephone [facility] [address] [place] [address] Rickey Do MD [address] [place] [id number] Dr Do/Xena Medical Question Social History Tobacco Use Types Packs/Day Years Used Date Smoking Tobacco: Former Cigarettes Q uit: 02/20/1985 Comments:Smoking History Pac ks/day: 1 Packs Alcohol Use Standard Drinks/Week Comments Yes 0 (1 standard drink = 0.6 oz pur e alcohol) Sex and Gender Information Value Date Recorded Sex Assigned at Not on file 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 He filled out the paperwork but would not sign the consent form because there's a clause regarding cancellations. Patient left the facility without getting his evaluation. Bhakti can be reached at [phone]. documented in this encounter Plan of Treatment Not on file documented as of this encounter Visit Diagnoses Not on filedocumented in this encounter Care Teams Home Care Associate Relationship Specialty Start Date End Date Rickey Do MD PCP - General 05/20/16 11/08/20 documented as of this encounter
--- OUTSIDE RECORDS SUMMARY | 2024-02-10 01:54 | XMS_ITS | Encounter Summary ---
Author Organization [facility] Medical [facility] Address [address] [place] [address] Care Team Providers Care Water/Wastewater Project Manager Name Role Phone Rickey Do MD Primary Care Provider [phone] Encounter Details Date Type Department Care Team (Late st Contact Info) Description 09/14/2016 Telephone [facility] [address] [place] [phone] Mary Lou Avilez MA Social History Tobacco Use Types Packs/Day Years Used Date Smoking Tobacco: Former Cigarettes Q uit: 02/20/1985 Comments:Smoking History Pac ks/day: 1 Packs Alcohol Use Standard Drinks/Week Comments Yes 0 (1 standard drink = 0.6 oz pur e alcohol) Sex and Gender Information Value Date Recorded Sex Assigned at Not on file Legal Sex Male 11:37 AM DIRECTOR AMBULATORY Gender Identity Not on file Sexual Orientation Not on file documented as of this encounter Miscellaneous Notes * Telephone Encounter - Mary Lou Avilez MA - 09/14/2016 3:01 PM CDT ----- Message from Xena Valencia NP sent at 09/05/2016 8:56 AM CDT ----- Call pt neck xray with arthritis no fracture Need to do yoga for stretching * Telephone Encounter - Mary Lou Avilez MA - 09/14/2016 2:59 PM CDT ----- Message from Xena Valencia NP sent at 09/05/2016 8:56 AM CDT ----- Call pt neck xray with arthritis no fracture Need to do yoga for stretching * Telephone Encounter - Mary Lou Avilez MA - 09/14/2016 12:29 PM CDT Results given to pt at ov * Telephone Encounter - Mary Lou Avilez MA - 09/14/2016 12:28 PM CDT ----- Message from Xena Valencia NP sent at 09/05/2016 4:06 PM CDT ----- Call pt ct scan stable documented in this encounter Plan of Treatment Not on file documented as of this encounter Visit Diagnoses Not on filedocumented in this encounter Care Teams Water/Wastewater Project Manager Relationship Specialty Start Date End Date Rickey Do MD PCP - General 05/20/16 11/08/20 documented as of this encounter
--- OUTSIDE RECORDS SUMMARY | 2024-02-10 01:54 | XMS_ITS | Encounter Summary ---
Author Organization 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; Abnormal result of other cardiovascular function study Social History Tobacco Use Types Packs/Day Years Used Date Smoking Tobacco: Former Cigarettes Q uit: 02/20/1985 Comments:Smoking History Pac ks/day: 1 Packs Alcohol Use Standard Drinks/Week Comments Yes 0 (1 standard drink = 0.6 oz pur e alcohol) Sex and Gender Information Value Date Recorded Sex Assigned at Not on file Legal Sex Male 11:37 AM REED POLISHER Gender Identity Not on file Sexual Orientation Not on file documented as of this encounter Medications at Time of Discharge aspirin (BABY ASPIRIN) 81 mg chewable tablet chew 1 tablet (81MG) by oral route every day 0 12/12/2011 9 blood glucose diagnostic (ONETOUCH VERIO) strip test 1 by blood sugar route daily 100 strip 3 07/30/2013 7 canagliflozin-me tformin (INVOKAMET) 50-1,000 mg tablet take 1 tablet by oral route 2 times every day with meals 180 3 02/17/2015 7 lancets (onetouch ultrasoft) misc test by by [...] 01/28/2013 7 documented as of this encounter Plan of Treatment Not on file documented as of this encounter Procedures Procedure Name Priority Date/Time Associated Diagnosis Comments PLASMA PROTHROMBIN TIME (PT) Routine 03/02/2015 8:01 AM REED POLISHER PLASMA PARTIAL THROMBOPLASTIN TIME (PTT) Routine 03/02/2015 8:01 AM REED POLISHER PLASMA LIPID PANEL Routine 03/02/2015 8: 01 AM REED POLISHER PLASMA BASIC METABOLIC PANEL Routine 03/02/2015 8:01 AM REED POLISHER PLASMA ASPARTATE TRANSAMINASE (AST) Routine 03/02/2015 8:01 AM REED POLISHER BLOOD CELL COUNT (CBC), MORPHOLOGIC EXAM Routine 03/02/2015 8:01 AM REED POLISHER CARDIAC CATH DIAGRAM 03/02/2015 DISCHARGE LABORATORY CUMULATIVE REPORT 03/02/2015 CARDIAC CATHETERIZATION 03/02/19 16 12:00 AM REED POLISHER documented in this encounter Results * (ABNORMAL) Blood cell count (CBC), morphologic exam (03/02/2015 8:01 AM REED POLISHER) WBC 10.5 4.5 - 11.0 K/cumm HISTORICAL RESULTS RBC 4.85 4.50 - 6.20 M/cumm HISTORICAL RESULTS Hgb 14.6 13.0 - 17.0 g/dl HISTORICAL RESULTS Hct 45.1 39.0 - 52.0 % HISTORICAL RESULTS MCV 92.9 80.0 - 100.0 fl HISTORICAL RESULTS MCH 30.1 27.0 - 33.0 pg HISTORICAL RESULTS MCHC 32.4 32.0 - 36.0 g/dl HISTORICAL RESULTS Rdw 14.1 11.5 - 14.5 % HISTORICAL RESULTS Platelets 308 140 - 400 K/cumm HISTORICAL RESULTS MPV 8.6 7.4 - 10.4 fl HISTORICAL RESULTS Neutrophils 62.6 42.0 - 75.0 % HISTORICAL RESULTS Lymphocytes 23.3 21.0 - 51.0 % HISTORICAL RESULTS Monos 11.9(H) 2.0 - 9.0 % HISTORICAL RESULTS Eosinophils 1.6 0.0 - 10.0 % HISTORICAL RESULTS Basophils 0.6 0.0 - 1.0 % HISTORICAL RESULTS Neutrophils, abs 6.6 1.8 - 7.7 K/cumm HISTORICAL RESULTS Lymphocytes, abs 2.4 1.0 - 4.8 K/cumm HISTORICAL RESULTS Monocytes, absolute 1.2(H) 0.0 - 0.8 K/cumm HISTORICAL RESULTS Eosinophils, abs 0.2 0.0 - 0.5 K/cumm HISTORICAL RESULTS Basophils, abs 0.1 0.0 - 0.2 K/cumm HISTORICAL RESULTS Blood specimen (specimen) 03/02/2015 8:01 AM REED POLISHER us Farrukh Jiménez MD LAB BLOOD ORDERABLES Final Result HISTORICAL RESULTS * Plasma prothrombin time (PT) (03/02/2015 8:01 AM REED POLISHER) Prothrombin time (PT) 10.5 10.0 - 13.0 seconds HISTORICAL RESULTS INR 0.9 0.9 - 1.2 HISTORICAL RESULTS Comment: INDICATION: ORTHOPEDIC Total Hip and Knee Arthroplasty 1.8 to 2.6 Hip Fracture 1.8 to 2.6 CARDIOLOGY Atrial Fibrillation 2.0 to 3.0 Cardiomyopathy 2.0 to 3.0 Myocardial Infarction 2.0 to 3.0 Non-coquille Valves 2.0 to 3.5 TREATMENT OF VENOUS THRMBOSIS Deep Vein Thrombosis 2.0 to 3.0 Pulmonary Embolism 2.0 to 3.0 Plasma 03/02/2015 8:01 AM REED POLISHER Farrukh Jiménez MD LAB BLOOD ORDERABLES Final Result Performing Organization Address [facility] de Phone Number HISTORICAL RESULTS * Plasma partial thromboplastin time (PTT) (03/02/2015 8:01 AM REED POLISHER) Pathologist [facility] [place] APTT 33.3 26.0 - 36.0 seconds HISTORICAL RESULTS Comment: ? Therapeutic Heparin Range: 52 - 80 seconds Plasma 03/02/2015 8:01 AM REED POLISHER Farrukh Jiménez MD LAB BLOOD ORDERABLES Final Result Performing Organization Address [facility] de Phone Number HISTORICAL RESULTS * (ABNORMAL) Plasma basic metabolic panel (03/02/2015 8:01 AM REED POLISHER) Sodium 135(L) 136 - 146 mmol/L HISTORICAL RESULTS K, pl 3.9 3.3 - 4.9 mmol/L HISTORICAL RESULTS Chloride 101 98 - 108 mmol/L HISTORICAL RESULTS CO2 27 22 - 33 mmol/L HISTORICAL RESULTS BUN 23(H) 7 - 18 mg/dl HISTORICAL RESULTS Glucose 167(H) 70 - 140 mg/dl HISTORICAL RESULTS Comment: Glucose is assumed to be non-fasting. ?? Fasting Glucose normal ranges are: 0 days - 2 months: ? 40 mg/dL - 100 mg/dL 2 months - 999 years: ?70 mg/dL - 99 mg/dL Creatinine 1.33 0.50 - 1.50 mg/dl HISTORICAL RESULTS eGFR 53 ml/min/1.7 3 m2 HISTORICAL RESULTS Comment: GFR Reference Range: = > 60 mL/min/1.73 m2 This result has been calculated assuming the patient is Non-. ??If the patient is , please multiply this result by 1.21. The GFR value is not recommended for medication dose adjustment for renal function, creatinine clearance values should be used. Calcium 9.1 8.5 - 10.5 mg/dl HISTORICAL RESULTS Plasma 03/02/2015 8:01 AM REED POLISHER us Farrukh Jiménez MD LAB BLOOD ORDERABLES Final Result HISTORICAL RESULTS * (ABNORMAL) Plasma lipid panel (03/02/2015 8:01 AM REED POLISHER) Cholesterol 111(L) 140 - 199 mg/dl HISTORICAL RESULTS Triglycerides 134 20 - 150 mg/dl HISTORICAL RESULTS HDL 38(L) 40 - 60 mg/dl HISTORICAL RESULTS LDL 46(L) 65 - 100 mg/dl HISTORICAL RESULTS Comment: Desirable ?Borderline ? High CHOL ?< 200 ? 200 - 239 ?>= 240 mg/dL TRIG ? < 150 ? 150 - 199 ?>= 200 mg/dL HDL ? > ??60 ?40 - ??60 ?<= 40 mg/dL LDL ? < 100 ?130 - 159 ? >= 160 mg/dL Risk Assessment interpretation based on the August 2000 NCEP ATPIII guideline. Chol/HDL ratio 2.9 0.0 - 4.9 HISTO RICAL RESULTS Plasma 03/02/2015 8:01 AM REED POLISHER Result [facility] Farrukh Jiménez MD LAB BLOOD ORDERABLES Final Result HISTORICAL RESULTS * Plasma aspartate transaminase (AST) (03/02/2015 8:01 AM REED POLISHER) AST 28 15 - 41 IUnits/L HISTORICAL RESULTS Plasma 03/02/2015 8:01 AM REED POLISHER Result [facility] Farrukh Jiménez MD LAB BLOOD ORDERABLES Final Result Performing Organization Address City/State/[facility] Co de Phone Number HISTORICAL RESULTS * DISCHARGE LABORATORY CUMULATIVE REPORT (03/02/2015) Narrative 03/02/2015 Ordered by an unspecified provider. Result [facility] Historical Provider LAB BLOOD ORDERABLES Anya l Result * Cardiac Catheterization (03/02/2015 12:00 AM REED POLISHER) Anatomical Region Laterality Modality X-Ray Angiograph y Narrative 03/02/2015 12:00 AM REED POLISHER Ordered by an unspecified provider. Procedure Note Provider, MD Migue - 04/18/2018 Ordered by an unspecified provider. Result [facility] Historical Provider CV CARDIAC CATH PROCEDURE S Final Result * CARDIAC CATH DIAGRAM (03/02/2015) Anatomical Region Laterality Modality X-Ray Angiograph y Narrative 03/02/2015 Ordered by an unspecified provider. 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
--- OUTSIDE RECORDS SUMMARY | 2024-02-10 01:54 | XMS_ITS | Encounter Summary ---
Author Organization [facility] Address [address] [place] [address] Care Team Providers Care Paper Conservator Name Role Phone Rickey Do MD Primary Care Provider [phone] Reason for Visit * Reason Onset Date Comments Dr Do/Medical Question 08/22/2016 Encounter Details Date Type Department Care Team (Late st Contact Info) Description 08/22/2016 Telephone [facility] [address] [place] [phone] Rickey Do MD [address] [place] [id number] Dr Do/Medical Question Social History Tobacco Use Types Packs/Day Years Used Date Smoking Tobacco: Former Cigarettes Q uit: 02/20/1985 Comments:Smoking History Pac ks/day: 1 Packs Alcohol Use Standard Drinks/Week Comments Yes 0 (1 standard drink = 0.6 oz pur e alcohol) Sex and Gender Information Value Date Recorded Sex Assigned at Not on file Legal Sex Male 11:37 AM FACILITY WORKER Gender Identity Not on file Sexual Orientation Not on file documented as of this encounter Miscellaneous Notes * Telephone Encounter - Tiffanie Santa - 09/02/2016 1:[address] order faxed to [phone] as requested, confirmation sent to scan * Telephone Encounter - Ayleen Carrion - 09/02/2016 11:43 AM CDT See message * Telephone Encounter - Danelle Spence - 09/02/2016 10:29 AM CDT Mariely with [facility] CT dept asking for CT Order of Abdomen to be faxed to [phone] ph: [phone] Appointment Monday * Telephone Encounter - Lexis Williamson - 08/22/2016 1:06 PM CDT Left detailed message on patient's voicemail that I scheduled patient EMG and CT abd/pelvis on 09/05/16 with a 7:!5am arrival time at [facility]. Orders were faxed. No pre-cert required per [facility] online for CT abd/pelvis documented in this encounter Plan of Treatment Not on file documented as of this encounter Visit Diagnoses Not on filedocumented in this encounter Care Teams Paper Conservator Relationship Specialty Start Date End Date Rickey Do MD PCP - General 05/20/16 11/08/20 documented as of this encounter
--- OUTSIDE RECORDS SUMMARY | 2024-02-10 01:54 | XMS_ITS | Encounter Summary ---
Author Organization [facility] Medical Group Address [address] [place] [address] Care Team Providers Care Friction Saw Operator Name Role Phone Rickey Do MD Primary Care Provider [phone] Encounter Details Date Type Department Care Team (Late st Contact Info) Description 09/05/2016 Orders Only [facility] [address] [place] [address] Scanning, Provider Social History Tobacco Use Types [...] on file Legal Sex Male 11:37 AM KNIFE SHARPENER Gender Identity Not on file Sexual Orientation [...] on filedocumented in this encounter Care Teams Friction Saw Operator Relationship Specialty Start Date End Date Rickey Do MD PCP - General 05/20/16 11/08/20 documented as of this encounter
--- OUTSIDE RECORDS SUMMARY | 2024-02-10 01:55 | XMS_ITS | Encounter Summary ---
Author Organization [facility] Facility Care Team Providers Care Senior Budget Analyst Name Role Phone Rickey Do MD Primary Care Provider [phone] Encounter Details Date Type Department Care Team (Late st Contact Info) Description 06/30/2011 4:22 PM CDT Hospital Encounter [facility] Xena Valencia, GATE GUARD [address] [address] Dysuria Social History Tobacco Use Types Packs/Day Years Used Date Smoking Tobacco: Never Assessed Sex and Gender Information Value Date Recorded Sex Assigned at Not on file Legal Sex Male 11:37 AM MIRROR FABRICATION SUPERVISOR Gender Identity Not on file Sexual Orientation Not on file documented as of this encounter Medications at Time of Discharge lancets (onetouch ultrasoft) misc test by by finger stick route 3 times every day 300 8 06/30/2011 11/21/2018 metoprolol (LOPRESSOR) 50 mg tablet Take 1 tablet by mouth twice a day with meals 180 3 05/05/2009 10/07/2016 simvastatin (ZOCOR) 20 mg tablet Take 1 tablet by mouth every day in the evening 90 3 07/21/2008 09/13/2016 documented as of this encounter Plan of Treatment Not on file documented as of this encounter Visit Diagnoses Diagnosis Dysuria documented in this encounter Care Teams Senior Budget Analyst Relationship Specialty Start Date End Date Rickey Do MD PCP - General 11/24/08 12/02/15 documented as of this encounter
--- OUTSIDE RECORDS SUMMARY | 2024-02-10 01:55 | XMS_ITS | Encounter Summary ---
Author Organization [facility] Facility Care Team Providers Care Balance Weigher Name Role Phone Rickey Do MD Primary Care Provider Encounter Details Date Type Department Care Team (Latest Contact Info) Description 03/02/2009 10:37 AM TAPE MAKER Hospital Encounter [facility] Rickey Do MD [address] [place] [address] Routine general medical examination at a health care facility Social History Tobacco Use Types Packs/Day Years Used Date Smoking Tobacco: Never Assessed Sex and Gender Information Value Date Recorded Sex Assigned at Not on file Legal Sex Male 11:37 AM TAPE MAKER Gender Identity Not on file Sexual Orientation Not on file documented as of this encounter Medications at Time of Discharge simvastatin (ZOCOR) 20 mg tablet Take 1 tablet by mouth every day in the evening 90 3 07/21/2008 09/13/2016 documented as of this encounter Plan of Treatment Not on file documented as of this encounter Visit Diagnoses Diagnosis Routine general medical examination at a health care facility documented in this encounter Care Teams Balance Weigher Relationship Specialty Start Date End Date Rickey Do MD PCP - General 11/24/08 12/02/15 documented as of this encounter
--- OUTSIDE RECORDS SUMMARY | 2024-02-10 01:55 | XMS_ITS | Encounter Summary ---
Author Organization [facility] Facility Care Team Providers Care Biological Scientist Name Role Phone Rickey Do MD Primary Care Provider [phone] Encounter Details Date Type Department Care Team (Late st Contact Info) Description 11/29/2011 11:31 AM CDT Hospital Encounter [facility] Xena Valencia, MANAGER REIMBURSEMENT [address] [place] [address] Pain in joint, lower leg; Effusion of lower leg joint Social History Tobacco Use Types Packs/Day Years Used Date Smoking Tobacco: Never Assessed Sex and Gender Information Value Date Recorded Sex Assigned at Not on file Legal Sex Male 11:37 AM DIRECTOR [facility] Gender Identity Not on file Sexual Orientation [...] as of this encounter Visit Diagnoses Diagnosis Pain in joint, lower leg Effusion of lower leg joint documented in this encounter Care Teams Biological Scientist Relationship Specialty Start Date End Date Rickey Do MD PCP - General 11/24/08 12/02/15 documented as of this encounter
--- OUTSIDE RECORDS SUMMARY | 2024-02-10 01:55 | XMS_ITS | Encounter Summary ---
Author Organization [facility] Facility Care Team Providers Care Polish Compounder Name Role Phone Rickey Do MD Primary Care Provider Encounter Details Date Type Department Care Team (Latest Contact Info) Description 12/15/2011 11:56 AM CDT Hospital Encounter [facility] Rickey Do MD [address] [place] [address] Abdominal pain, right upper quadrant; Disorder of adrenal gland (HCC); Diverticulosis of colon; Enlarged lymph nodes; Nonspecific abnormal findings on radiological and other examination of abdominal area, including retroperitoneum Social History Tobacco Use Types Packs/Day Years Used Date Smoking Tobacco: Never Assessed Sex and Gender Information Value Date Recorded Sex Assigned at Not on file Legal Sex Male 11:37 AM HOT MILL TIN ROLLER Gender Identity Not on file Sexual Orientation Not on file documented as of this encounter Medications at Time of Discharge aspirin (BABY ASPIRIN) 81 mg chewable tablet chew 1 tablet (81MG) by oral route every day 0 12/12/2011 05/02/2018 lancets (onetouch ultrasoft) misc test by by [...] as of this encounter Visit Diagnoses Diagnosis Abdominal pain, right upper quadrant Disorder of adrenal gland (HCC) Unspecified disorder of adrenal glands Diverticulosis of colon Diverticulosis of colon (without mention of hemorrhage) Enlarged lymph nodes Enlargement of lymph nodes Nonspecific abnormal findings on radiological and other examination of abdominal area, including retroperitoneum documented in this encounter Care Teams Polish Compounder Relationship Specialty Start Date End Date Rickey Do MD PCP - General 11/24/08 12/02/15 documented as of this encounter
--- OUTSIDE RECORDS SUMMARY | 2024-02-10 01:55 | XMS_ITS | Encounter Summary ---
Author Organization [facility] Care Team Providers Care Customs Examiner Name Role Phone Rickey Do MD Primary Care Provider [phone] Encounter Details Date Type Department Care Team (Latest Contact Info) Description 09/06/2013 10:25 AM CDT Hospital Encounter [facility] Xena Valencia, BELT BUILDER HELPER [address] 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 CLARA MOFFETT M.D. FINAL REPORT The radiology attending physician has personally reviewed this study, and has reviewed and/or edited this written report and agrees with it. ACC# ??Date Time ??Exam [id number] Sep 06, 2013 11:40:00 [id number] MRI Cervical Spine wo cont EXAMINATION: ?? Magnetic resonance imaging (MRI) of the cervical spine without contrast HISTORY: Radicular neck pain TECHNIQUE: MRI of the cervical spine was obtained without contrast according to standard protocol. CONTRAST: None administered COMPARISON: None available FINDINGS: The alignment is normal. Vertebral bodies are normal in height without compression fractures. There is multilevel degenerative end plate change greatest at C5-C6. The craniocervical junction and visualized portions of the posterior fossa appear normal. The spinal cord demonstrate normal signal intensity and morphology on all pulse sequences. Multilevel degenerative loss of disc space height and signal. No soft tissue abnormality is identified. Normal flow voids are identified in the vertebral arteries. C2-3: There is a small disc protrusion. There is no facet arthropathy. There is no uncovertebral arthropathy. ??There is no neural foraminal narrowing. There is no spinal canal stenosis. C3-4: There is a small posterior disc osteophyte complex. There is moderate uncovertebral and facet hypertrophy. There is moderate to severe left and moderate right neural foraminal stenosis. There is no spinal canal stenosis. C4-5: There is disc space narrowing and a small disc protrusion with a posterior disc osteophyte complex. There is marked right and mild left facet arthropathy. There is moderate right and mild left uncovertebral arthropathy. ??There is ??moderate right and [id number] left neural foraminal narrowing. There is mild spinal canal stenosis. C5-6: There is disc space narrowing, a focal disc protrusion, and a posterior disc osteophyte complex. There is mild facet arthropathy. There is mild uncovertebral arthropathy. ??There is mild neural foraminal narrowing. There is mild spinal canal stenosis. C6-7: There is disc space narrowing, a small disc bulge, and posterior disc osteophyte complex. There is mild facet arthropathy. There is mild uncovertebral arthropathy. ??There is mild right neural foraminal narrowing. There is mild effacement of the ventral thecal sac. C7-T1: There is a small disc bulge. There is a mild right facet arthropathy. There is no uncovertebral arthropathy. ??There is no neural foraminal narrowing. There is no spinal canal stenosis. IMPRESSION: ?? 1. At C3-C4, a combination of degenerative findings results in moderate to severe left neural foraminal stenosis and moderate right neural foraminal stenosis. 2. At C4-C5, a combination of degenerative findings results in moderate right neural foraminal stenosis, mild to moderate left neuroforaminal stenosis, and mild spinal canal stenosis. 3. Additional less mild levels of spinal canal and neural foraminal stenosis as described. Requested By: XENA VALENCIA ??ANP Dictated By: ?? CLARA MOFFETT M.D. ??on Sep 06 2013 ??4:27P This document has been electronically signed by: OMKAR TAPIA M.D. on Sep 06 2013 ??5:58P Procedure Note Provider, MD Migue - 06/16/2016 OMKAR TAPIA M.D. CLARA MOFFETT M.D. FINAL REPORT The radiology attending physician has personally reviewed this study, and has reviewed and/or edited this written report and agrees with it. [facility] Date Time Exam [id number] Sep 06, 2013 11:40:00 [id number] MRI Cervical Spine wo cont EXAMINATION: Magnetic resonance imaging (MRI) of the cervical spine without contrast HISTORY: Radicular neck pain TECHNIQUE: MRI of the cervical spine was obtained without contrast according to standard protocol. CONTRAST: None administered COMPARISON: None available FINDINGS: The alignment is normal. Vertebral bodies are normal in height without compression fractures. There is multilevel degenerative end plate change greatest at C5-C6. The craniocervical junction and visualized portions of the posterior fossa appear normal. The spinal cord demonstrate normal signal intensity and morphology on all pulse sequences. Multilevel degenerative loss of disc space height and signal. No soft tissue abnormality is identified. Normal flow voids are identified in the vertebral arteries. C2-3: There is a small disc protrusion. There is no facet arthropathy. There is no uncovertebral arthropathy. There is no neural foraminal narrowing. There is no spinal canal stenosis. C3-4: There is a small posterior disc osteophyte complex. There is moderate uncovertebral and facet hypertrophy. There is moderate to severe left and moderate right neural foraminal stenosis. There is no spinal canal stenosis. C4-5: There is disc space narrowing and a small disc protrusion with a posterior disc osteophyte complex. There is marked right and mild left facet arthropathy. There is moderate right and mild left uncovertebral arthropathy. There is moderate right and mqkt-gk-xgiifbed left neural foraminal narrowing. There is mild spinal canal stenosis. C5-6: There is disc space narrowing, a focal disc protrusion, and a posterior disc osteophyte complex. There is mild facet arthropathy. There is mild uncovertebral arthropathy. There is mild neural foraminal narrowing. There is mild spinal canal stenosis. C6-7: There is disc space narrowing, a small disc bulge, and posterior disc osteophyte complex. There is mild facet arthropathy. There is mild uncovertebral arthropathy. There is mild right neural foraminal narrowing. There is mild effacement of the ventral thecal sac. C7-T1: There is a small disc bulge. There is a mild right facet arthropathy. There is no uncovertebral arthropathy. There is no neural foraminal narrowing. There is no spinal canal stenosis. IMPRESSION: 1. At C3-C4, a combination of degenerative findings results in moderate to severe left neural foraminal stenosis and moderate right neural foraminal stenosis. 2. At C4-C5, a combination of degenerative findings results in moderate right neural foraminal stenosis, mild to moderate left neuroforaminal stenosis, and mild spinal canal stenosis. 3. Additional less mild levels of spinal canal and neural foraminal stenosis as described. Requested By: XENA VALENCIA ANP Dictated By: CLARA MOFFETT M.D. on Sep 06 2013 4:27P This document has been electronically signed by: OMKAR TAPIA M.D. 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
--- OUTSIDE RECORDS SUMMARY | 2024-02-10 01:55 | XMS_ITS | Encounter Summary ---
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 Gender Identity Not on file Sexual Orientation Not on file documented as of this encounter Medications at Time of Discharge metoprolol (LOPRESSOR) 50 mg tablet Take 1 tablet by mouth twice a day with meals 180 3 05/05/2009 10/07/2016 simvastatin (ZOCOR) 20 mg tablet Take 1 tablet by mouth every day in the evening 90 3 07/21/2008 09/13/2016 documented as of this encounter Plan of Treatment Not on file documented as of this encounter Visit Diagnoses Diagnosis Type 2 or unspecified type diabetes mellitus documented in this encounter Care Teams Plant Security Guard Relationship Specialty Start Date End Date Rickey Do MD PCP - General 11/24/08 12/02/15 documented as of this encounter
--- OUTSIDE RECORDS SUMMARY | 2024-02-10 01:55 | XMS_ITS | Encounter Summary ---
Author Organization [facility] Care Team Providers Care Presiding Steward Name Role Phone Rickey Do MD Primary Care Provider [phone] Encounter Details Date Type Department Care Team (Latest Contact Info) Description 07/30/2013 11:09 AM CDT Hospital Encounter [facility] Xena Valencia, CYTOLOGY LABORATORY MANAGER [address] [facility] [place] [address] Degeneration of cervical intervertebral disc; Cervical spondylosis without myelopathy Social History Tobacco Use Types Packs/Day Years Used Date Smoking Tobacco: Never Assessed Sex and Gender Information Value Date Recorded Sex Assigned at Not on file 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 FINAL REPORT ACC# ??Date Time ??Exam [id number] Jul 30, 2013 11:38:00 [id number] Spine Cervical 4-5 views EXAMINATION: ?Cervical spine minimum 6 views HISTORY: ??Cervical spondylosis FINDINGS: AP, lateral, bilateral oblique, swimmer's, open mouth, and odontoid views of the cervical spine are performed without comparison. There is normal alignment of the cervical spine. The vertebral body heights are normal. There is moderate diffuse cervical degenerative disc disease. No prevertebral soft tissue swelling. No bony central canal stenosis. There is bilateral uncovertebral and facet joint osteoarthritis which results in diffuse right neuroforaminal narrowing and mild left C5-C6 and C6-C7 neuroforaminal narrowing. IMPRESSION: ?? Moderate diffuse cervical degenerative disc disease with bilateral uncovertebral and facet joint osteoarthritis resulting in diffuse right neuroforaminal narrowing, and mild left C5-C6 and C6-C7 neuroforaminal narrowing. Requested By: XENA VALENCIA ??ANP Dictated By: ?? LATASHA POTTER M.D. ??on Jul 30 2013 12:29P This document has been electronically signed by: LATASHA POTTER M.D. on Jul 30 2013 12:29P Procedure Note Provider, MD Migue - 06/16/2016 LATASHA POTTER M.D. FINAL REPORT ACC# Date Time Exam [id number] Jul 30, 2013 11:38:00 [id number] Spine Cervical 4-5 views EXAMINATION: Cervical spine minimum 6 views HISTORY: Cervical spondylosis FINDINGS: AP, lateral, bilateral oblique, swimmer's, open mouth, and odontoid views of the cervical spine are performed without comparison. There is normal alignment of the cervical spine. The vertebral body heights are normal. There is moderate diffuse cervical degenerative disc disease. No prevertebral soft tissue swelling. No bony central canal stenosis. There is bilateral uncovertebral and facet joint osteoarthritis which results in diffuse right neuroforaminal narrowing and mild left C5-C6 and C6-C7 neuroforaminal narrowing. IMPRESSION: Moderate diffuse cervical degenerative disc disease with bilateral uncovertebral and facet joint osteoarthritis resulting in diffuse right neuroforaminal narrowing, and mild left C5-C6 and C6-C7 neuroforaminal narrowing. Requested By: XENA VALENCIA [facility] Dictated By: LATASHA POTTER M.D. on Jul 30 2013 12:29P This document has been electronically signed by: LATASHA POTTER M.D. on Jul 30 2013 12:29P Historical Provider IMTitus XR PROCEDURES Final R esult documented in this encounter Visit Diagnoses Diagnosis Degeneration of cervical intervertebral disc Cervical spondylosis without myelopathy documented in this encounter Care Teams Presiding Steward Relationship Specialty Start Date End Date Rickey Do MD PCP - General 11/24/08 12/02/15 documented as of this encounter
--- OUTSIDE RECORDS SUMMARY | 2024-02-10 01:55 | XMS_ITS | Encounter Summary ---
Author Organization [facility] Care Team Providers Care Healthcare Educator Name Role Phone Anmol Do MD Primary Care Provider [phone] Encounter Details Date Type Department Care Team (Latest Contact Info) Description 03/23/2012 8:36 AM SUPERVISOR KNITTING Hospital Encounter [facility] Anmol Do MD [address] [place] [address] Chest pain; Other acute and subacute form of ischemic heart disease; Essential hypertension; Type 2 or unspecified type diabetes mellitus; Other and unspecified hyperlipidemia Social History Tobacco Use Types Packs/Day Years Used Date Smoking Tobacco: Never Assessed Sex and Gender Information Value Date Recorded Sex Assigned at Not on file 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 FINAL REPORT The radiology attending physician has personally reviewed this study, and has reviewed and/or edited this written report and agrees with it. ACC# ??Date Time ??Exam [id number] Mar 23, 2012 12:13:00 [id number] SPECT MPI MULT EXAMINATION: ?MYOCARDIAL IMAGING (REST AND EXERCISE/SPECT/SUPINE) ?? DATE OF STUDY: 03/23/2012 RADIOPHARMACEUTICAL: Rest: ??9.4 mCi ??Tc-99m tetrofosmin i.v. ?? Exercise: ??35.6 mCi ??Tc-99m tetrofosmin i.v. ?? HISTORY: ??66-year-old man with dyslipidemia, diabetes and hypertension presents with chest pain. ??Evaluate for ischemia. ?? FINDINGS: Standard myocardial perfusion images were obtained after resting tracer injection. ??Subsequently, a standard Melquiades treadmill exercise tolerance test was performed by the patient under the supervision of attending staff from the Cardiovascular Division. ??The patient exercised for 7 minutes and 30 seconds and achieved 92% of maximum predicted heart rate and a maximum rate-pressure product of 26,600 mm Hg-beats/min. (Adequate cardiac stress is considered to be >85% of maximum predicted heart rate or a rate-pressure product >02677 mm Hg-beats/min.) ??Standard myocardial perfusion images were obtained after tracer injection at peak exercise. ? No prior study is available for comparison. There is normal distribution of activity in the left and right ventricular myocardium on both rest and post-exercise images. Gated post-stress images demonstrate normal left ventricular wall thickening. ??The left ventricular volume is normal and the left ventricular ejection fraction is greater than 70% (normal >45%). IMPRESSION: ? 1. ??Normal rest and exercise myocardial perfusion. 2. ??Normal left ventricular size and systolic function. Requested By: ANMOL DO ??M.D. Dictated By: ?? RADHA RUSSELL M.D. ??on Mar ??2012 ??1:38P This document has been electronically signed by: ALISSA TAVERA M.D. on Mar ??2012 ??2:20P Procedure Note ProviderMigue MD - 06/16/2016 ALISSA TAVERA M.D. RADHA RUSSELL M.D. FINAL REPORT The radiology attending physician has personally reviewed this study, and has reviewed and/or edited this written report and agrees with it. ACC# Date Time Exam [id number] Mar 23, 2012 12:13:00 [id number] SPECT MPI MULT EXAMINATION: MYOCARDIAL IMAGING (REST AND EXERCISE/SPECT/SUPINE) DATE OF STUDY: 03/23/2012 RADIOPHARMACEUTICAL: Rest: 9.4 mCi Tc-99m tetrofosmin i.v. Exercise: 35.6 mCi Tc-99m tetrofosmin i.v. HISTORY: 66-year-old man with dyslipidemia, diabetes and hypertension presents with chest pain. Evaluate for ischemia. FINDINGS: Standard myocardial perfusion images were obtained after resting tracer injection. Subsequently, a standard Melquiades treadmill exercise tolerance test was performed by the patient under the supervision of attending staff from the Cardiovascular Division. The patient exercised for 7 minutes and 30 seconds and achieved 92% of maximum predicted heart rate and a maximum rate-pressure product of 26,600 mm Hg-beats/min. (Adequate cardiac stress is considered to be >85% of maximum predicted heart rate or a rate-pressure product >81378 mm Hg-beats/min.) Standard myocardial perfusion images were obtained after tracer injection at peak exercise. No prior study is available for comparison. There is normal distribution of activity in the left and right ventricular myocardium on both rest and post-exercise images. Gated post-stress images demonstrate normal left ventricular wall thickening. The left ventricular volume is normal and the left ventricular ejection fraction is greater than 70% (normal >45%). IMPRESSION: 1. Normal rest and exercise myocardial perfusion. 2. Normal left ventricular size and systolic function. Requested By: ANMOL DO M.D. Dictated By: RADHA RUSSELL M.D. on Mar 23 2012 1:38P This document has been electronically signed by: ALISSA TAVERA M.D. on Mar 23 2012 2:20P Historical Provider MD [facility] [place] PROCEDURES Final R esult * Stress Test Only, Exercise (03/23/2012 12:00 AM SUPERVISOR KNITTING) Anatomical Region Laterality Modality Other 03/23/2012 Narrative 03/23/2012 12:00 AM SUPERVISOR KNITTING Patient name: Ayden Santos Date of test: 03/23/2012 Type of Test: Treadmill Nuclear Stress [facility] #: [id number] ?Location: [facility] Referring Physician(s): Anmol Do MD Supervised/Interpreted by: Fidel Rubio MD RN: Peter Pinto RN Protocol: Melquiades Reason for Test: Chest Pain Cardiac History: No cardiac history ??Other History: Risk Factors: Elevated Cholesterol, Diabetes, Hypertension, Obesity PHYSICAL EXAM: Lungs: Clear ?? Heart Sounds: Normal ?? Carotid Pulse: Brisk ??Carotid Brut: None Medications: valsartan/hctz, januvia, simvastatin, metoprolol, metoprolol, asa, diovan, metformin Medications withheld: metoprolol, januvia, metformin BASELINE Electrocardiogram: Heart rate: 78 ?? BP: 130/70 Rhythm: Normal Sinus Rhythm ?Conduction Defects: None Q Waves: Other: ST: No significant ST abnormalities. EXERCISE PARAMETERS: Duration: 7:30 min Peak Heart Rate: 140 Peak BP: 190/70 PMHR: 153 85%: 130.05 HR Isotope injected: 130 bpm ?Isotope: TIME ?SPEED ?GRADE ??HR ?BP Baseline ??Standing ?? N/A ??78 ??130/70 02:00 ? 1.7 MPH ?10% 102 ??170/74 05:00 ? 2.5 MPH ?12% 120 ??190/70 07:30 ? 3.4 MPH ?14% 140 ------- 12:00 ? Recovery ? 115 ??199/89 05:00 ? Recovery ?98 ??155/59 Terminated: Leg Discomfort Performance: 10 METS, Fair for age and gender. Comments: Chest Pain: No chest pain with exercise Chest pain treatment: HR Response: Appropriate Blood Pressure Response: Hypertensive response (excessive increase in systolic BP) ECG Abormalities During/After Stress: ST Segment changes: ST Depression: 1 mm inferolateral horizontal or downsloping New Arrhythmias: None IMPRESSIONS: Positive ECG evidence of ischemia during exercise stress test. Nuclear images pending. Hypertensive response to stress. Confirmed on ??03/23/2012 - 18:50:03 by Fidel Rubio MD By signing this report, the attending iron caster certifies that he or she has personally supervised and interpreted the stress test and has reviewed and or edited and agrees with the written comments contained within the report. Procedure Note Migue Coy MD - 06/21/2016 Patient name: Ayden Santos Date of test: 03/23/2012 Type of Test: Treadmill Nuclear Stress [facility] #: [id number] Location: [facility] Referring Physician(s): Anmol Do MD Supervised/Interpreted by: Fidel Rubio MD RN: Peter Pinto RN Protocol: Melquiades Reason for Test: Chest Pain Cardiac History: No cardiac history Other History: Risk Factors: Elevated Cholesterol, Diabetes, Hypertension, Obesity PHYSICAL EXAM: Lungs: Clear Heart Sounds: Normal Carotid Pulse: Brisk Carotid Brut: None Medications: valsartan/hctz, januvia, simvastatin, metoprolol, metoprolol, asa, diovan, metformin Medications withheld: metoprolol, januvia, metformin BASELINE Electrocardiogram: Heart rate: 78 BP: 130/70 Rhythm: Normal Sinus Rhythm Conduction Defects: None Q Waves: Other: ST: No significant ST abnormalities. EXERCISE PARAMETERS: Duration: 7:30 min Peak Heart Rate: 140 Peak BP: 190/70 PMHR: 153 85%: 130.05 HR Isotope injected: 130 bpm Isotope: TIME SPEED GRADE HR BP Baseline Standing N/A 78 130/70 02:00 1.7 MPH 10% 102 170/74 05:00 2.5 MPH 12% 120 190/70 07:30 3.4 MPH 14% 140 ------- 12:00 Recovery 115 199/89 05:00 Recovery 98 155/59 Terminated: Leg Discomfort Performance: 10 METS, Fair for age and gender. Comments: Chest Pain: No chest pain with exercise Chest pain treatment: HR Response: Appropriate Blood Pressure Response: Hypertensive response (excessive increase in systolic BP) ECG Abormalities During/After Stress: ST Segment changes: ST Depression: 1 mm inferolateral horizontal or downsloping New Arrhythmias: None IMPRESSIONS: Positive ECG evidence of ischemia during exercise stress test. Nuclear images pending. Hypertensive response to stress. Confirmed on 03/23/2012 - 18:50:03 by Fidel Rubio MD By signing this report, the attending iron caster certifies that he or she has personally supervised and interpreted the stress test and has reviewed and or edited and agrees with the written comments contained within the report. Historical Provider CV STRESS PROCEDURES Anya jamal Result documented in this encounter Visit Diagnoses Diagnosis Chest pain Unspecified chest pain Other acute and subacute form of ischemic heart disease Essential hypertension Unspecified essential hypertension Type 2 or unspecified type diabetes mellitus Other and unspecified hyperlipidemia documented in this encounter Care Teams Healthcare Educator Relationship Specialty Start Date End Date Anmol Do MD PCP - General 11/24/08 12/02/15 documented as of this encounter
--- OUTSIDE RECORDS SUMMARY | 2024-02-10 01:55 | XMS_ITS | Encounter Summary ---
Author Organization [facility] Facility Care Team Providers Care Underground Production Foreperson Name Role Phone Rickey Do MD Primary Care Provider [phone] Encounter Details Date Type Department Care Team (Late st Contact Info) Description 02/15/2012 10:39 AM ELEMENTARY READING SPECIALIST Hospital Encounter [facility] Xena Valencia, SHIP YARD ELECTRICAL PERSON [address] [place] [address] Type 2 or unspecified type diabetes mellitus, uncontrolled Social History Tobacco Use Types Packs/Day Years Used Date Smoking Tobacco: Never Assessed Sex and Gender Information Value Date Recorded Sex Assigned at Not on file Legal Sex Male 11:37 AM ELEMENTARY READING SPECIALIST Gender Identity Not on file Sexual [...] Diagnosis Type 2 or unspecified type diabetes mellitus, uncontrolled documented in this encounter Care Teams Underground Production Foreperson Relationship Specialty Start Date End Date Rickey Do MD PCP - General 11/24/08 12/02/15 documented as of this encounter
--- OUTSIDE RECORDS SUMMARY | 2024-02-10 01:55 | XMS_ITS | Encounter Summary ---
Author Organization [facility] Facility Care Team Providers Care Plant Tender Name Role Phone Anmol Do MD Primary Care Provider [phone] Encounter Details Date Type Department Care Team (Late st Contact Info) Description 12/19/2013 8:09 AM CDT - 12/19/2013 11:59 PM CDT Hospital [facility] Anmol Do MD [address] [place] [address] Xena Valencia, WEATHERIZATION AND HOUSING INSPECTOR [address] [facility] [place] [address] Abdominal pain, right upper quadrant; Fitting and adjustment of vascular catheter; Diverticulosis of colon; Hypertrophy of prostate without urinary obstruction and other lower urinary tract symptoms (LUTS); Enlarged lymph nodes Social History Tobacco Use Types Packs/Day Years Used Date Smoking Tobacco: Never Assessed Sex and Gender Information Value Date Recorded Sex Assigned at Not on file Legal Sex Male 11:37 AM ANIMAL CARE SPECIALIST Gender Identity Not on file Sexual [...] Diagnosis Comments CT ABDOMEN PELVIS W CONTRAST Routine 12/19/2013 8:58 AM CDT BLOOD POINT OF CARE PANEL Routine 12/19/2013 8:50 AM CDT BLOOD POINT OF CARE PANEL Routine 12/19/2013 8:50 AM CDT DISCHARGE LABORATORY CUMULATIVE REPORT 12/19/2013 documented in this encounter Results * CT Abdomen Pelvis W Contrast (12/19/2013 8:58 AM CDT) Anatomical Region Laterality Modality Body N/A Computed Tomogra phy 12/19/2013 8:58 AM CDT Narrative 12/19/2013 10:57 AM CDT WHITLEY ORTIZ M.D. ANMOL GARDNER M.D. FINAL REPORT The radiology attending physician has personally reviewed this study, and has reviewed and/or edited this written report and agrees with it. ACC# ??Date Time ??Exam [id number] Dec 19, 2013 08:58:[address] Abd & Pelvis w EXAMINATION: ?? CT of the abdomen and pelvis with intravenous contrast HISTORY: ??Abdominal pain. TECHNIQUE: ??Computed tomographic images of the abdomen and pelvis were obtained after the uneventful administration of 125 mL of Optiray 350 intravenous contrast according to standard protocol. FINDINGS: Comparison is made to a CT of the abdomen from 12/15/2011 and an abdominal MRI from 12/20/2011. There is minimal dependent atelectasis or scarring in both lung bases as well as focal fibrosis near the azygoesophageal recess adjacent to degenerative thoracic spine spurs. Mild hepatic steatosis is present. There is a 1 cm hepatic cyst in the left lateral hepatic sections adjacent to the fissure for the ligamentum teres. The gallbladder, pancreas and spleen all appear normal. Again noted is perinephric fat stranding, unchanged from the prior examination. There is an unchanged subcentimeter cyst in the inferior pole the right kidney. The right adrenal gland is normal. The unchanged 2.2 cm nodule in the left adrenal gland better characterized as an adenoma on the prior MR examination. The abdominal aorta is atherosclerotic but normal in caliber. Atherosclerotic calcifications are present in both renal artery ostia. The appendix is normal. There is colonic diverticulosis without evidence of acute diverticulitis. The small bowel and stomach are decompressed. Again noted is a doyle appearance to the small bowel mesentery with enlarged but subcentimeter mesenteric lymph nodes. There is no retroperitoneal or pelvic lymphadenopathy. Small bilateral fat containing inguinal hernias are present. There are mildly enlarged but subcentimeter bilateral inguinal lymph nodes. There is multilevel lumbar facet osteoarthritis and moderate L5-S1 degenerative disc disease. There is mild bilateral hip osteoarthritis. No suspicious osteolytic or osteoblastic lesions are seen. IMPRESSION: ?? 1. No CT correlate for acute abdominal pain. 2. Unchanged findings of nonspecific mesenteritis. 3. Colonic diverticulosis without evidence of acute diverticulitis. 4. Unchanged left adrenal adenoma. ADDENDUM: There is also a nonspecific, mildly enlarged right external iliac lymph node measuring 1.4 x 0.9 cm at table position 908.8. Also, the prostate gland is mildly enlarged. Requested By: Dictated By: ?? ANMOL GARDNER M.D. ??on Dec 19 2013 10:08A This document has been electronically signed by: WHITLEY ORTIZ M.D. on Dec 19 2013 10:17A Addendum Dictated by: ANMOL GARDNER M.D. on Dec 19 2013 10:34A This Addendum has been electronically signed by: WHITLEY ORTIZ M.D. on Dec 19 2013 10:57A [id number] Procedure Note Provider, MD Migue - 06/16/2016 WHITLEY ORTIZ M.D. ANMOL GARDNER M.D. FINAL REPORT The radiology attending physician has personally reviewed this study, and has reviewed and/or edited this written report and agrees with it. ACC# Date Time Exam [id number] Dec 19, 2013 08:58:[address] Abd & Pelvis w EXAMINATION: CT of the abdomen and pelvis with intravenous contrast HISTORY: Abdominal pain. TECHNIQUE: Computed tomographic images of the abdomen and pelvis were obtained after the uneventful administration of 125 mL of Optiray 350 intravenous contrast according to standard protocol. FINDINGS: Comparison is made to a CT of the abdomen from 12/15/2011 and an abdominal MRI from 12/20/2011. There is minimal dependent atelectasis or scarring in both lung bases as well as focal fibrosis near the azygoesophageal recess adjacent to degenerative thoracic spine spurs. Mild hepatic steatosis is present. There is a 1 cm hepatic cyst in the left lateral hepatic sections adjacent to the fissure for the ligamentum teres. The gallbladder, pancreas and spleen all appear normal. Again noted is perinephric fat stranding, unchanged from the prior examination. There is an unchanged subcentimeter cyst in the inferior pole the right kidney. The right adrenal gland is normal. The unchanged 2.2 cm nodule in the left adrenal gland better characterized as an adenoma on the prior MR examination. The abdominal aorta is atherosclerotic but normal in caliber. Atherosclerotic calcifications are present in both renal artery ostia. The appendix is normal. There is colonic diverticulosis without evidence of acute diverticulitis. The small bowel and stomach are decompressed. Again noted is a doyle appearance to the small bowel mesentery with enlarged but subcentimeter mesenteric lymph nodes. There is no retroperitoneal or pelvic lymphadenopathy. Small bilateral fat containing inguinal hernias are present. There are mildly enlarged but subcentimeter bilateral inguinal lymph nodes. There is multilevel lumbar facet osteoarthritis and moderate L5-S1 degenerative disc disease. There is mild bilateral hip osteoarthritis. No suspicious osteolytic or osteoblastic lesions are seen. IMPRESSION: 1. No CT correlate for acute abdominal pain. 2. Unchanged findings of nonspecific mesenteritis. 3. Colonic diverticulosis without evidence of acute diverticulitis. 4. Unchanged left adrenal adenoma. ADDENDUM: There is also a nonspecific, mildly enlarged right external iliac lymph node measuring 1.4 x 0.9 cm at table position 908.8. Also, the prostate gland is mildly enlarged. Requested By: Dictated By: ANMOL GARDNER M.D. on Dec 19 2013 10:08A This document has been electronically signed by: WHITLEY ORTIZ M.D. on Dec 19 2013 10:17A Addendum Dictated by: ANMOL GARDNER M.D. on Dec 19 2013 10:34A This Addendum has been electronically signed by: WHITLEY ORTIZ M.D. on Dec 19 2013 10:57A [id number] Historical Provider MD MCCURDY CT PROCEDURES Final R esult * (ABNORMAL) Blood point of care panel (12/19/2013 8:50 AM CDT) Creatinine, bld 1.5(H) 0.6 - 1.3 mg/dl HISTORICAL RESULTS Comment: Creatinine < 1.5 mg/dL and stable receive IV contrast. Creatnine 1.5 - 1.9 mg/dL and stable use Visipaque IV contrast. Blood specimen (specimen) 12/19/2013 8:50 AM CDT Xena Valencia WEATHERIZATION AND HOUSING INSPECTOR LAB BLOOD ORDERABLES Final Result HISTORICAL RESULTS * (ABNORMAL) Blood point of care panel (12/19/2013 8:50 AM CDT) Creatinine, bld 1.5(H) 0.6 - 1.3 mg/dl HISTORICAL RESULTS Comment: Creatinine < 1.5 mg/dL and stable receive IV contrast. Creatnine 1.5 - 1.9 mg/dL and stable use Visipaque IV contrast. Blood specimen (specimen) 12/19/2013 8:50 AM CDT Xena Valencia WEATHERIZATION AND HOUSING INSPECTOR LAB BLOOD ORDERABLES Final Result HISTORICAL RESULTS * DISCHARGE LABORATORY CUMULATIVE REPORT (12/19/2013) Narrative 12/19/2013 Ordered by an unspecified provider. Historical Provider MD LAB BLOOD ORDERABLES Anya l Result documented in this encounter Visit Diagnoses Diagnosis Abdominal pain, right upper quadrant Fitting and adjustment of vascular catheter Diverticulosis of colon Diverticulosis of colon (without mention of hemorrhage) Hypertrophy of prostate without urinary obstruction and other lower urinary tract symptoms (LUTS) Enlarged lymph nodes Enlargement of lymph nodes documented in this encounter Care Teams Plant Tender Relationship Specialty Start Date End Date Anmol Do MD PCP - General 11/24/08 12/02/15 documented as of this encounter
--- OUTSIDE RECORDS SUMMARY | 2024-02-10 01:55 | XMS_ITS | Encounter Summary ---
Author Organization [facility] Facility Care Team Providers Care Utility Maintenance Worker Name Role Phone Rickey Do MD Primary Care Provider [phone] Encounter Details Date Type Department Care Team (Latest Contact Info) Description 02/22/2010 9:57 AM BOOM PUMP OPERATOR Hospital Encounter [facility] Peter Reyna MD [address] [facility] [address] [place] [address] Benign neoplasm of colon; Diverticulosis of colon; Internal hemorrhoids; Sleep apnea; Type 2 or unspecified type diabetes mellitus Social History Tobacco Use Types Packs/Day Years Used Date Smoking Tobacco: Never Assessed Sex and Gender Information Value Date Recorded Sex Assigned at Not on file Legal Sex Male 11:37 AM BOOM PUMP OPERATOR Gender Identity Not on file Sexual [...] as of this encounter Visit Diagnoses Diagnosis Benign neoplasm of colon Diverticulosis of colon Diverticulosis of colon (without mention of hemorrhage) Internal hemorrhoids Internal hemorrhoids without mention of complication Sleep apnea Unspecified sleep apnea Type 2 or unspecified type diabetes mellitus documented in this encounter Care Teams Utility Maintenance Worker Relationship Specialty Start Date End Date Rickey Do MD PCP - General 11/24/08 12/02/15 documented as of this encounter
--- OUTSIDE RECORDS SUMMARY | 2024-02-10 01:55 | XMS_ITS | Encounter Summary ---
Author Organization [facility] Facility Care Team Providers Care Tissue Technologist Name Role Phone Rickey Do MD Primary Care Provider [phone] Encounter Details Date Type Department Care Team (Late st Contact Info) Description 12/12/2011 12:09 PM CDT Hospital Encounter [facility] Xena Valencia, SHOTGUN SHELL ASSEMBLY MACHINE ADJUSTER [address] [facility] [address] Abdominal pain, right upper quadrant Social History Tobacco Use Types Packs/Day Years Used Date Smoking Tobacco: Never Assessed Sex and Gender Information Value Date Recorded Sex Assigned at Not on file Legal Sex Male 11:37 AM COIL WINDER STRAP Gender Identity Not on file Sexual Orientation [...] Diagnoses Diagnosis Abdominal pain, right upper quadrant documented in this encounter Care Teams Tissue Technologist Relationship Specialty Start Date End Date Rickey Do MD PCP - General 11/24/08 12/02/15 documented as of this encounter
--- OUTSIDE RECORDS SUMMARY | 2024-02-10 01:55 | XMS_ITS | Encounter Summary ---
Author Organization [facility] Facility Care Team Providers Care Leg Assembler Name Role Phone Rickey Do MD Primary Care Provider [phone] Encounter Details Date Type Department Care Team (Late st Contact Info) Description 08/30/2012 10:43 AM CDT Hospital Encounter [facility] Xena Valencia, RUBBER BELT SPLICER [address] [facility] [address] Cough Social History Tobacco Use Types Packs/Day Years Used Date Smoking Tobacco: Never Assessed Sex and Gender Information Value Date Recorded Sex Assigned at Not on file Legal Sex Male 11:37 AM EDUCATIONAL PARAPROFESSIONAL Gender Identity Not on file Sexual Orientation [...] Procedure Name Priority Date/Time Associated Diagnosis Comments CHEST RADIOGRAPHY, FRONTAL (AP), LATERAL Routine 08/30/2012 10:56 AM CDT documented in this encounter Results * CHEST RADIOGRAPHY, FRONTAL (AP), LATERAL (08/30/2012 10:56 AM CDT) Anatomical Region Laterality Modality N/A Radiographic Reena ging 08/30/2012 10:5 6 AM CDT Narrative 08/30/2012 11:19 AM CDT SARAH NARVAEZ M.D. FINAL REPORT ACC# ??Date Time ??Exam [id number] Aug 30, 2012 10:56:00 41200 Chest 2 views Frontl & Lat EXAMINATION: ?Two-view chest HISTORY: ??Cough COMPARISON: ??03/02/2009 FINDINGS: ?? There has been no interval change. The heart size is normal. There are no confluent pulmonary infiltrates or pleural effusions. IMPRESSION: ?? No acute infiltrate Requested By: XENA VALENCIA ??ANP Dictated By: ?? SARAH NARVAEZ M.D. ??on Aug 30 2012 11:19A This document has been electronically signed by: SARAH NARVAEZ M.D. on Aug 30 2012 11:19A Procedure Note Provider, MD Migue - 06/16/2016 SARAH NARVAEZ M.D. FINAL REPORT ACC# Date Time Exam [id number] Aug 30, 2012 10:56:00 76169 Chest 2 views Frontl & Lat EXAMINATION: Two-view chest HISTORY: Cough COMPARISON: 03/02/2009 FINDINGS: There has been no interval change. The heart size is normal. There are no confluent pulmonary infiltrates or pleural effusions. IMPRESSION: No acute infiltrate Requested By: XENA VALENCIA ANP Dictated By: SARAH NARVAEZ M.D. on Aug 30 2012 11:19A This document has been electronically signed by: SARAH NARVAEZ M.D. on Aug 30 2012 11:19A us Historical Provider MD MCCURDY XR PROCEDURES Final R esult documented in this encounter Visit Diagnoses Diagnosis Cough documented in this encounter Care Teams Leg Assembler Relationship Specialty Start Date End Date Rickey Do MD PCP - General 11/24/08 12/02/15 documented as of this encounter
--- OUTSIDE RECORDS SUMMARY | 2024-02-10 01:55 | XMS_ITS | Encounter Summary ---
Author Organization [facility] Facility Care Team Providers Care Technology Auditor Name Role Phone Rickey Do MD Primary Care Provider [phone] Encounter Details Date Type Department Care Team (Late st Contact Info) Description 01/02/2012 10:18 AM SOCIOLOGY INSTRUCTOR Hospital Encounter [facility] Xena Valencia, SHIPPING ASSOCIATE [address] [facility] [place] [address] Pain in thoracic spine Social History Tobacco Use Types Packs/Day Years Used Date Smoking Tobacco: Never Assessed Sex and Gender Information Value Date Recorded Sex Assigned at Not on file Legal Sex Male 11:37 AM SOCIOLOGY INSTRUCTOR Gender Identity Not on file Sexual Orientation [...] this encounter Visit Diagnoses Diagnosis Pain in thoracic spine documented in this encounter Care Teams Technology Auditor Relationship Specialty Start Date End Date Rickey Do MD PCP - General 11/24/08 12/02/15 documented as of this encounter
--- OUTSIDE RECORDS SUMMARY | 2024-02-10 01:55 | XMS_ITS | Encounter Summary ---
Author Organization [facility] Facility Care Team Providers Care Agronomy Internship Name Role Phone Rickey Do MD Primary Care Provider Encounter Details Date Type Department Care Team (Latest Contact Info) Description 12/20/2011 1:59 PM CDT Hospital Encounter [facility] Rickey Do MD [address] [place] [address] Benign neoplasm of adrenal gland Social History Tobacco Use Types Packs/Day Years Used Date Smoking Tobacco: Never Assessed Sex and Gender Information Value Date Recorded Sex Assigned at Not on file Legal Sex Male 11:37 AM ENLISTED AIRCREW/AERIAL OBSERVER/GUNNER Gender Identity Not on file Sexual Orientation [...] encounter Visit Diagnoses Diagnosis Benign neoplasm of adrenal gland documented in this encounter Care Teams Agronomy Internship Relationship Specialty Start Date End Date Rickey Do MD PCP - General 11/24/08 12/02/15 documented as of this encounter
--- OUTSIDE RECORDS SUMMARY | 2024-02-10 01:55 | XMS_ITS | Encounter Summary ---
Author Organization [facility] Facility Care Team Providers Care Ware Dresser Name Role Phone Rickey Do MD Primary Care Provider Encounter Details Date Type Department Care Team (Latest Contact Info) Description 10/01/2012 10:43 AM CDT Hospital Encounter [facility] Rickey Do MD [address] [place] [address] Type 2 or unspecified type diabetes mellitus Social History Tobacco Use Types Packs/Day Years Used Date Smoking Tobacco: Never Assessed Sex and Gender Information Value Date Recorded Sex Assigned at Not on file Legal Sex Male 11:37 AM CHAIN HOOKER Gender Identity Not on file Sexual Orientation [...] Name Priority Date/Time Associated Diagnosis Comments PLASMA COMPREHENSIVE METABOLIC PANEL Routine 10/01/2012 10:32 AM CDT BLOOD HEMOGLOBIN A1C Routine 10/01/2012 5:32 AM CDT URINE MICROBIOLOGY Routine 10/01/2012 12 :00 AM CDT DISCHARGE LABORATORY CUMULATIVE REPORT 10/01/2012 documented in this encounter Results * (ABNORMAL) Plasma comprehensive metabolic panel (10/01/2012 10:32 AM CDT) eGFR 55 ml/min/1.7 3 m2 HISTORICAL RESULTS Comment: GFR Reference Range: = > 60 mL/min/1.73 m2 This result has been calculated assuming the patient is Non-. ??If the patient is , please multiply this result by 1.21. Sodium 136 136 - 145 mmol/L HISTORICAL RESULTS K, pl 4.4 3.5 - 5.1 mmol/L HISTORICAL RESULTS Chloride 104 98 - 107 mmol/L HISTORICAL RESULTS CO2 27 21 - 32 mmol/L HISTORICAL RESULTS A. gap 5 3 - 11 mmol/L HISTORICAL RESULTS BUN 24(H) 7 - 18 mg/dl HISTORICAL RESULTS Creatinine 1.3 0.6 - 1.3 mg/dl HISTORICAL RESULTS Glucose 126 70 - 140 mg/dl HISTORICAL RESULTS Comment: Glucose is assumed to be non-fasting. Fasting Glucose normal ranges are: 0 days - 1 month: ? 40 mg/dL - 100 mg/dL 1 month - 999 years: ?70 mg/dL - 99 mg/dL Protein, pl 7.8 6.4 - 8.2 g/dl HISTORICAL RESULTS Alb 3.9 3.4 - 5.0 g/dl HISTORICAL RESULTS Calcium 9.5 8.5 - 10.1 mg/dl HISTORICAL RESULTS Alk phos 76 50 - 136 Units/L HISTORICAL RESULTS Bilirubin 0.5 0.1 - 1.0 mg/dl HISTORICAL RESULTS ALT 28 12 - 78 Units/L HISTORICAL RESULTS Comment:New referance range implemented on 05/10/2012 AST 18 15 - 37 Units/L HISTORICAL RESULTS Plasma 10/01/2012 10:3 2 AM CDT us Rickey Do MD LAB BLOOD ORDERABLES Final Res ult Performing Organization Address City/[facility]/ZIP Co de Phone Number HISTORICAL RESULTS * (ABNORMAL) Blood hemoglobin A1C (10/01/2012 5:32 AM CDT) Pathologist [facility] Glycated hemoglobin 6.4(H) 4.0 - 6.0 % HISTORICAL RESULTS Blood specimen (specimen) 10/01/2012 5:32 AM CDT Narrative HISTORICAL RESULTS - 10/01/2012 2:15 PM CDT Test performed at [facility], ??[facility] [facility], [facility], [address] [place] Rickey Do MD LAB BLOOD ORDERABLES Final Res ult Performing Organization Address City/[facility]/ZIP Co de Phone Number HISTORICAL RESULTS * Urine Microbiology (10/01/2012 12:00 AM CDT) 10/01/2012 12:0 0 AM CDT Narrative HISTORICAL RESULTS - 10/03/2012 4:28 PM CDT ?[facility] Microbiology ? [address] [facility] ??[place], [place] ??[address] ? Tele: ?Yahaira Lopez M.D. - Bulk Mail Technician ?? Vianey Sanders - Laboratory ? Cash Posting Representative ?? Patient: AYDEN SANTOS ? Admission #: ??[id number] ?? : 1945 ?Location:[facility] ?? Gender: M ?? Admit Date: 10/01/2012 ? = = = = = = = = = = = = = = = = = = = = = = = = = = = = = = = = = = = = = = Urine Culture ? Final ?? Urine ? Clean Voided ?? Collected: ??10/01/2012 10:32 ?? Inoculated: ??10/01/2012 15:42 ?? Report Date: ??10/03/2012 13:38 ? Culture Result ?No Growth ?? Performed at [employer] [facility], [address] [place] [address], [place], [place], [place] ?? [place], [address] = = = = = = = = = = = = = = = = = = = = = = = = = = = = = = = = = = = = = ? Physician: ?[facility] Microbiology Report-[facility]in[employer] ? us Historical Provider LAB MICROBIOLOGY - GENERA L ORDERABLES Final Result HISTORICAL RESULTS * DISCHARGE LABORATORY CUMULATIVE REPORT (10/01/2012) Narrative 10/01/2012 Ordered by an unspecified provider. us Historical Provider LAB BLOOD ORDERABLES Anya l Result documented in this encounter Visit Diagnoses Diagnosis Type 2 or unspecified type diabetes mellitus documented in this encounter Care Teams Ware Dresser Relationship Specialty Start Date End Date Rickey Do MD PCP - General 11/24/08 12/02/15 documented as of this encounter
--- OUTSIDE RECORDS SUMMARY | 2024-02-10 01:55 | XMS_ITS | Encounter Summary ---
Author Organization [facility] Facility Care Team Providers Care Casing Soaker Name Role Phone Rickey Do MD Primary Care Provider Encounter Details Date Type Department Care Team (Late st Contact Info) Description 03/17/2011 11:14 AM WELD INSPECTOR Hospital Encounter [facility] [address] [place] [address] Benign neoplasm of colon; Type 2 or unspecified type diabetes mellitus; Vitamin D deficiency Social History Tobacco Use Types Packs/Day Years Used Date Smoking Tobacco: Never Assessed Sex and Gender Information Value Date Recorded Sex Assigned at Not on file Legal Sex Male 11:37 AM WELD INSPECTOR Gender Identity Not on file Sexual [...] Visit Diagnoses Diagnosis Benign neoplasm of colon Type 2 or unspecified type diabetes mellitus Vitamin D deficiency documented in this encounter Care Teams Casing Soaker Relationship Specialty Start Date End Date Rickey Do MD PCP - General 11/24/08 12/02/15 documented as of this encounter
--- OUTSIDE RECORDS SUMMARY | 2024-02-10 01:55 | XMS_ITS | Encounter Summary ---
Author Organization [facility] Facility Care Team Providers Care Software Consultant Name Role Phone Rickey Do MD Primary Care Provider Encounter Details Date Type Department Care Team (Late st Contact Info) Description 10/05/2006 10:59 AM CDT Hospital Encounter [facility] Rickey Do MD [address] [place] [address] Social History Tobacco Use Types Packs/Day Years Used Date Smoking Tobacco: Never Assessed Sex and Gender Information Value Date Recorded Sex Assigned at Not on file Legal Sex Male 11:37 AM THERAPEUTIC RECREATION SPECIALIST Gender Identity Not on file Sexual Orientation Not on file documented as of this encounter Plan of Treatment Not on file documented as of this encounter Visit Diagnoses Not on filedocumented in this encounter Care Teams Software Consultant Relationship Specialty Start Date End Date Rickey Do MD PCP - General 03/10/06 10/25/06 documented as of this encounter
--- OUTSIDE RECORDS SUMMARY | 2024-02-10 01:55 | XMS_ITS | Encounter Summary ---
Author Organization [facility] Facility Care Team Providers Care Organization Development Consultant Name Role Phone Rickey Do MD Primary Care Provider [phone] Encounter Details Date Type Department Care Team (Late st Contact Info) Description 05/29/2012 11:05 AM CDT Hospital Encounter [facility] Xena Valencia, PHYSICAL THERAPY DIRECTOR [address] [facility] [place] [address] Type 2 or unspecified type diabetes mellitus, uncontrolled Social History Tobacco Use Types Packs/Day Years Used Date Smoking Tobacco: Never Assessed Sex and Gender Information Value Date Recorded Sex Assigned at Not on file 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 Gender Identity Not on file Sexual [...] Name Priority Date/Time Associated Diagnosis Comments PLASMA LIPASE Routine 05/29/2012 10:48 AM CDT PLASMA COMPREHENSIVE METABOLIC PANEL Routine 05/29/2012 10:48 AM CDT PLASMA AMYLASE Routine 05/29/2012 10:48 AM CDT URINALYSIS Routine 05/29/2012 10:48 AM CDT BLOOD HEMOGLOBIN A1C Routine 05/29/2012 5:48 AM CDT DISCHARGE LABORATORY CUMULATIVE REPORT 05/29/2012 documented in this encounter Results * (ABNORMAL) Plasma comprehensive metabolic panel (05/29/2012 10:48 AM CDT) eGFR >60 ml/min/1.7 3 m2 HISTORICAL RESULTS Comment: GFR Reference Range: = > 60 mL/min/1.73 m2 This result has been calculated assuming the patient is Non-. ??If the patient is , please multiply this result by 1.21. Sodium 138 136 - 145 mmol/L HISTORICAL RESULTS K, pl 4.4 3.5 - 5.1 mmol/L HISTORICAL RESULTS Chloride 103 98 - 107 mmol/L HISTORICAL RESULTS CO2 27 21 - 32 mmol/L HISTORICAL RESULTS A. gap 8 3 - 11 mmol/L HISTORICAL RESULTS BUN 22(H) 7 - 18 mg/dl HISTORICAL RESULTS Creatinine 1.1 0.6 - 1.3 mg/dl HISTORICAL RESULTS Glucose 137 70 - 140 mg/dl HISTORICAL RESULTS Comment: Glucose is assumed to be non-fasting. Fasting Glucose normal ranges are: 0 days - 1 month: ? 40 mg/dL - 100 mg/dL 1 month - 999 years: ?70 mg/dL - 99 mg/dL Protein, pl 8.1 6.4 - 8.2 g/dl HISTORICAL RESULTS Alb 3.9 3.4 - 5.0 g/dl HISTORICAL RESULTS Calcium 9.2 8.5 - 10.1 mg/dl HISTORICAL RESULTS Alk phos 86 50 - 136 Units/L HISTORICAL RESULTS Bilirubin 0.5 0.1 - 1.0 mg/dl HISTORICAL RESULTS ALT 27 12 - 78 Units/L HISTORICAL RESULTS Comment:New referance range implemented on 05/10/2012 AST 19 15 - 37 Units/L HISTORICAL RESULTS Plasma 05/29/2012 10:4 8 AM CDT Xena Valencia PHYSICAL THERAPY DIRECTOR LAB BLOOD ORDERABLES Final Result Performing Organization Address [facility] de Phone Number HISTORICAL RESULTS * Plasma lipase (05/29/2012 10:48 AM CDT) Pathologist [facility] Lip 123 43 - 243 Units/L HISTORICAL RESULTS Plasma 05/29/2012 10:4 8 AM CDT Xena Valencia PHYSICAL THERAPY DIRECTOR LAB BLOOD ORDERABLES Final Result Performing Organization Address [facility] de Phone Number HISTORICAL RESULTS * Plasma amylase (05/29/2012 10:48 AM CDT) Pathologist [facility] Debbie, pl 42 25 - 115 Units/L HISTORICAL RESULTS Plasma 05/29/2012 10:4 8 AM CDT Xena Valencia PHYSICAL THERAPY DIRECTOR LAB BLOOD ORDERABLES Final Result Performing Organization Address [facility] de Phone Number HISTORICAL RESULTS * Urinalysis (05/29/2012 10:48 AM CDT) Specific gravity, ur 1.020 1.000 - 1.025 HISTORICAL RESULTS pH, ur 5.0 5.0 - 9.0 HISTORICAL RESULTS Leukocyte esterase, ur Negative Negative HISTORICAL RESULTS Nitrites, ur Negative Negative HISTORI SYLVIA RESULTS Protein, ur Negative Negative HISTORIC AL RESULTS Glucose, ur Negative Negative HISTORIC AL RESULTS Ketones, ur Negative Negative HISTORIC AL RESULTS Urobilinogen, quant, ur Normal Normal mg/dl HISTORICAL RESULTS Bilirubin, ur Negative Negative HISTOR ICAL RESULTS RBC, ur Negative Negative HISTORICAL RESULTS Color, ur Yellow Yellow HISTORICAL RESULTS Clarity, ur Clear Clear HISTORIC AL RESULTS Urine 05/29/2012 10:4 8 AM CDT Xena Valencia NP LAB BLOOD ORDERABLES Final Result HISTORICAL RESULTS * (ABNORMAL) Blood hemoglobin A1C (05/29/2012 5:48 AM CDT) Glycated hemoglobin 6.4(H) 4.0 - 6.0 % HISTORICAL RESULTS Blood specimen (specimen) 05/29/2012 5:48 AM CDT Narrative HISTORICAL RESULTS - 05/29/2012 12:47 PM CDT Test performed at [facility], ??[facility], [place], [place], [place], [address] Xena Valencia NP LAB BLOOD ORDERABLES Final Result HISTORICAL RESULTS * DISCHARGE LABORATORY CUMULATIVE REPORT (05/29/2012) Narrative 05/29/2012 Ordered by an unspecified provider. Historical Provider LAB BLOOD ORDERABLES Anya l Result documented in this encounter Visit Diagnoses Diagnosis Type 2 or unspecified type diabetes mellitus, uncontrolled documented in this encounter Care Teams Organization Development Consultant Relationship Specialty Start Date End Date Rickey Do MD PCP - General 11/24/08 12/02/15 documented as of this encounter
--- OUTSIDE RECORDS SUMMARY | 2024-02-10 02:03 | XMS_ITS | Continuity of Care Document ---
Author Organization [facility] Address [address] [place] [address] Phone Care Team Providers Care Concentrator Operator Name Role Phone Florence HUNTER Mary Unavailable Unavailable Allergies, Adverse Reactions, Alerts Substance Reaction Status Criticality No Known Allergies Active No Inform ation Medications Medication Instructions Dosage Effective Dates (start - stop) Status Comments irbesartan 300 mg-hydrochlorothiazi de 12.5 mg tablet take 1 tablet by oral route every day 1.00 tablet - Active metoprolol tartrate 50 mg tablet take 1 tablet by oral route 2 times every day with meals 50 MG - Active finasteride 5 mg tablet take 1 tablet by oral route every day 5 MG - Active acyclovir 400 mg tablet take 1 tablet by oral route 5 times every day 400 MG - Active simvastatin 40 mg tablet take 1 tablet by oral route every day in the evening 40 MG - Active metformin ER 500 mg tablet,extended release 24 hr take 1 tablet by oral route 2 times every day with the evening meal 500 MG - Active Vitamin D3 100 mcg (4,000 unit) capsule take 1 by oral route every day - Active Co Q-10 200 mg capsule take 1 by oral route every day 1 - Active Vision Plus Lutein tablet 1 tablet by mouth once a day - Active Digestive Health Probiotic 10 billion cell capsule 1 tablet twice a day - Active Xultophy 100/3.6 100 unit-3.6 mg/mL (3 mL) subcutaneous insulin pen inject by subcutaneous route as per insulin protocol 0.00 - Active Humalog U-100 Insulin 100 unit/mL subcutaneous cartridge inject by subcutaneous route per prescriber's instructions. Insulin dosing requires individualization. 0.00 - Active Procedures Procedure Date SCODI, Retina No Charge Optomap Fundus Photos 024 No Charge Refraction Eye Exam & Treatment Fundus Photography W/ Report No Charge GDX Retina Office/outpatient Visit, Est SCODI, Retina Eye Exam & Treatment No Charge Optomap Fundus Photos Fundus Photography W/ Report Eye Exam & Treatment Fundus Photography W/ Report Eye Exam & Treatment No Charge Refraction Post-op Follow-up Visit Post-op Follow-up Visit Post-op Follow-up Visit Remove Cataract, Insert Lens Laser Cataract SX Standard IOLMaster-Professional No Charge Orbscan No Charge IOL Master No Charge AScan No Charge Orbscan SCODI, Retina No Charge Optomap Fundus Photos 021 No Charge Refraction IOLMaster-Technical Office/outpatient Visit, Est No Charge Refraction Fundus Photography W/ Report Office/outpatient Visit, New Advance Directives Directive Yes / No Effective Date File Name No Information Encounters Encounter Description Practice Location Reason(s) For Visit Diagnoses Date Provider Providers Copied on Encounter [facility], [address], [place], [place], [id number], [place] tel:[phone] SEC Jeff NUNEZ Professional Follow up visit (chief complaint) Pseudophakia of right eyeAge-relat ed nuclear cataract, left eyeNexdtve age-related mclr degn, bilateral, early dry stageType 2 diabetes mellitus without complication sVisual aura 4 Florence OD Mary. [address], [place], [place], [address], [place]. tel:[phone] Farrukh Jiménez MD.Referri bubba Provider: Joe Edwards, [address], [place], [address]. tel:[phone] Office/outpa tient Visit, Est [facility], [address], [place], [place], [address], [place] tel:[phone] [place] Professional office visit (chief complaint) Nexdtve age-related mclr degn, bilateral, early dry stageMild nonprolifera tive diabetic retinopathy of right eye without macular edema associated with type 2 diabetes mellitus 4 Florence OD Mary. [address], [place], [place], [address], [place]. tel:[phone] Farrukh Jiménez MD.Referri ng Provider: Joe Edwards, [address], [place], [address]. tel:[phone] [facility], [address], [place], [place], [address], [place] tel:[phone] [place] Professional diabetic eye exam (chief complaint) Pseudophakia of right eyeType 2 diabetes mellitus without complication sNexdtve age-related mclr degn, bilateral, early dry stageAge-rel ated nuclear cataract, left eye 3 Florence OD Mary. [address], [place], [place], [address], [place]. tel:[phone] Farrukh Jiménez MD.Referri ng Provider: Joe Edwards, [address], [place], [address]. tel:[phone] [facility], [address], [place], [place], [address], [place] tel:[phone] SEC Jeff [place] Professional Complete Exam (chief complaint) Age-related nuclear cataract, left eyeNexdtve age-related mclr degn, bilateral, early dry stagePseudop hakia of right eyeType 2 diabetes mellitus without complication s 2 Chirag Arana. [address], [place], [place], [address], . tel:[phone] Farrukh Jiménez MD.Referri ng Provider: Joe Edwards, [address], [place], [address]. tel:[phone] [facility], [address], [place], [place], [address], [place] tel:[phone] SEC [place] Professional 6 month Cataract check (chief complaint) Age-related nuclear cataract, left eyePseudopha eliud of right eyeNexdtve age-related mclr degn, bilateral, early dry stageType 2 diabetes mellitus without complication s 1 Chirag Arana. [address], [place], [place], [address], [place]. tel:[phone] Farrukh Jiménez MD.Referri ng Provider: Joe Edwards, [address], [place], [address]. tel:[phone] [facility], [address], [place], [place], [address], [place] tel:[phone] SEC Jeff NUNEZ Professional 1 month s/p PCIOL w/LensAR (chief complaint) Post op visit 1 Chirag Arana. [address], [place], [place], [address], [place]. tel:[phone] Referring Provider: Joe Edwards, [address], [place], [address]. tel:[phone] [facility], [address], [place], [place], [address], [place] tel:[phone] SEC [place] Professional 1 wk po PCIOL OD (07/01/20) (chief complaint) Post op visit No Information Referring Provider: Joe Edwards, [address], [place], [address]. tel:[phone] [facility], [address], [place], [place], [address], [place] tel:[phone] SEC Jeff NUNEZ Professional Post-Op (chief complaint) Post op visit No Information Referring Provider: Joe Edwards, [address], [place], [address]. tel:[phone] [facility], [address], [place], [place], [address], [place] tel:[phone] [facility] No Information Chirag Arana. [address] [facility], [place], [place], [address], [place]. tel:[phone] Referring Provider: Joe Edwadrs, [address], [place], [address]. tel:[phone] [facility], [address], [place], [place], [address], [place] tel:[phone] SEC Suzie Cuevas No Information Chirag Arana. [address] [facility], [place], [place], [address], [place]. tel:[phone] Referring Provider: Joe Edwards, [address], [place], [address]. tel:[phone] [facility], [address], [place], [place], [address], [place] tel:[phone] SEC Jeff NUNEZ Professional Repeat measurements for CE (chief complaint) Combined forms of age-related cataract, right eyeAge-relat ed nuclear cataract, left eye Apr-2 6-202 1 Chirag Arana. [address], [place], [place], [address], [place]. tel:[phone] Farrukh Jiménez MD.Referri ng Provider: Joe Edwards, [address], [place], [address]. tel:[phone] Office/outpa tient Visit, [facility], [address], [place], [place], [address], [place] tel:[phone] SEC [place] [address] Cataract Check (chief complaint) Nexdtve age-related mclr degn, bilateral, early dry stageType 2 diabetes mellitus without complication sCombined forms of age-related cataract, right eyeAge-relat ed nuclear cataract, left eye Apr- 1 Chirag Arana. [address], [place], [place], [address], [place]. tel:[phone] Farrukh Jiménez MD.Referri ng Provider: Joe Edwards, [address], [place], [address]. tel:[phone] Office/outpa tient Visit, [facility], [address], [place], [place], [address], [place] tel:[phone] SEC [facility] Professional Cataract evaluation (chief complaint) Type 2 diabetes mellitus without complication Amee-related nuclear cataract, bilateralNex dtve age-related mclr degn, bilateral, early dry stage Dec- 0 Chirag Arana. [address], [place], [place], [address], [place]. tel:[phone] Farrukh Jiménez MD.Referri ng Provider: Joe Edwards, [address], [place], [address]. tel:[phone] [facility], [address], [place], [place], [address], [place] tel:[phone] SEC Jeff NUNEZ Professional No Information 0 Chirag Arana. [address] [facility], [place], [place], [address], [place]. tel:[phone] Specialist : Farrukh Jiménez MD, [address], [place], [address]. tel:[phone] erring Provider: Joe Edwards, [address], [place], [address]. tel:[phone] Family History Family Member Type Diagnosis Age At Onset Problem Family history of Diabetes m amadomichelle Payers Payer name Insurance type Covered libertarian ID Stoney garcia(s) [employer] Mdcr Gold Adv Prime CI [id number] Social History Type Description Quantity Date Captured Comments Alcohol Use Details Caffeine Use Details No Tobacco Use Status Ex-cigarette smoker 024 Smoking Status Former smoker Smoking Tobacco Use Details Cigarette: Age Started: 14, Age Stopped: 39, Years Used 25 Cigarette: 1 Packs per day, Pack Year: 25 Sex Male Chief Complaint And Reason For Visit From encounter dated '09/18/2023 09:30'. Follow up visit (chief complaint). Description: The 77 year old patient presents for evaluation of Follow up visit in the right eye and left eye. Pt states that since last visit pts vision will become wavy and pt states that since then its been happing more often. Pt states its not consistent and it comes and goes. Reason For Referral Reason For Referral No Information Plan Of Treatment Date Type Action Status Goal Tobacco cessation counseling completed Goal Tobacco cessation counseling completed Patient Education Cataracts: Care Instruc tions completed Patient Education Type 2 Diabetes: Care I nstructions completed Patient Education Cataract Surgery: What to Expect at H~ completed Patient Education Cataracts: Care Instruc tions completed History Of Present Illness Encounter Date Complaint History Of Prese nt Illness Follow up visit The 77 year old patient presents for evaluation of Follow up visit in the right eye and left eye. Pt states that since last visit pts vision will become wavy and pt states that since then its been happing more often. Pt states its not consistent and it comes and goes. office visit The 77 year old patient presents for an office visit. Patient states shortly after his last appointment here he started to notice squiggly line when watching TV. Patient states for the last week he hasn't noticed the squiggly lines but thought he should still come and have it checked out. diabetic eye exam The 77 year ol d patient presents for a complete Type II diabetic exam ou. Patient is pseudo OD. BS was 154 this am and last A1C was 8 something and PCP treats DM. Patient states sometimes when he looks at the TV thinks look a little squiggly x 6 months. Complete Exam The 76 year old patient presents for evaluation of Complete Exam in the right eye and left eye. Pt is IDDM II x 22 yrs, followed by PCP, pt reports BS was 158 this am and A1C was about 8.2 about 4 mos ago. Pt reports stable VA, OU, DV and NV, since last appt. Pt reports he doesn't use any gtts, OU. 6 month Cataract check The 75 ye ar old male presents for evaluation of 6 month Cataract check in the left eye. Hx of PCIOL w/LensAR OD and Cataract OS. Patient denies any problems or changes with eyes. VA is good. Patient is a Type 2 diab, BS checked this am @ 200, a1c 8.2, and PCP treats his diab. 1 month s/p PCIOL w/LensAR The [age] year old male presents for evaluation of 1 month s/p PCIOL w/LensAR in the right eye (07/01/20). Patient states VA is excellent with the right eye. Patient not having sx on the left. 1 wk po PCIOL OD (07/01/20) The 6 5 year old male presents for evaluation of 1 wk po PCIOL OD (07/01/20). Pt reports good comfort and vision OD. Pt reports taking Pred, Vigamox, and Ketorolac QID OD. Post-Op The 74 year old male presents for a 1 day post op CE OD with LENSAR and LRI. Patient is using Pred, Vigamox and Ketorolac qid OD. Patient denies any pain or discomfort. Repeat measurements for CE The [age] year old male presents for evaluation of Repeat measurements for CE in the right eye and left eye. Cataract Check The 74 year old male presents for evaluation of Cataract Check in the right eye and left eye. Hx of Cat OU and IDDM2. Pt last A1C was 8.4 and last BS 160. Pt states that starting a month ago his started commenting about his OD getting bloodshot and within the last two weeks his vision has become blurry like a film in front of the eye Pt having trouble seeing at night due to glare from incoming traffic and finds it difficult to read road signs. Pt also having difficulty reading. x 6 months. Cataract evaluation The 74 year old male presents for a cataract evaluation ou per Dr. Edwards. Patient states he was told he has cataracts. Patient states he has no VA complaints. Patient takes a vision vitamin". Patient is a Type II diabetic and BS was 153 this am and last A1C was 8. Patient states his wanted him to make this appointment. Functional Status Date Functional Assessmen t No Information Instructions Date Instruction Additional Infor ngozi Impression/Plan Impression/Plan Impression/Plan Impression/Plan Impression/Plan Impression/Plan Impression/Plan Impression/Plan Impression/Plan Impression/Plan Impression/Plan Assessments Type Assessment Date assessment Pseudophakia of right eye assessment Age-related nuclear cataract, le ft eye assessment Nexdtve age-related mclr degn, b ilateral, early dry stage assessment Type 2 diabetes mellitus without complications assessment Visual aura Patient Care Teams Name Effective Dates (start - stop) Status Members No Information
--- OUTSIDE RECORDS SUMMARY | 2024-02-10 05:34 | XMS_ITS | Encounter Summary ---
Author Organization [facility] Healthcare Address [address] [place] [address] Care Team Providers Care Envelope Addresser Name Role Phone Ronaldo Ulrich MD Primary Care Provider + Reason for Visit * Reason Comments Cough Cough, chest pain wh en coughing, sore throat, sneezing x 4 days Encounter Details Date Type Department Care Team (Late st Contact Info) Description 06/12/2023 10:30 AM CDT Office Visit [facility] [address] [place] [id number] Connor Redd PA [address] [place] [address] Upper respiratory tract infection, unspecified type (Primary [...] on file 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 Connor [facility] MICROBIOLOGY - GENERAL ORDGreg GILBERT Final Result [facility] Department [place] [address] * POCT rapid RSV (06/12/2023 10:36 AM CDT) [facility] Rapid RSV, POC Negative Negative Lot Number [id number] QC Control Line Acceptable Swab 06/12/2023 10:3 6 AM CDT [employer] Helgaiz PA POINT OF CARE TEST ORDERABLES F inal Result * POC Influenza A/B, COVID-19 antigen (06/12/2023 10:35 AM CDT) [facility] Influenza A Ag, POC Negative Negative [facility] [place] Influenza B Ag, POC Negative Negative [facility] [place] COVID-19 Ag POC Presumptive Negative Presumptive Negative, Invalid [facility] [place] Nasal 06/12/2023 10:3 5 AM CDT [employer] Ivania PA POINT OF CARE TEST ORDERABLES F inal Result Performing Organization Address [facility] Co de Phone Number [facility] [address] [place] [address] * POCT rapid strep A (06/12/2023 10:35 AM CDT) [facility] Rapid Strep A, POC Negative Negative [facility] Swab 06/12/2023 10:3 5 AM CDT [employer] Ivania PA POINT OF CARE TEST ORDERABLES F inal Result Performing Organization Address [facility] Co de Phone Number [facility] J[facility]INE [address] [place] [address] documented in this encounter Visit Diagnoses Diagnosis [...] documented as of this encounter Care Teams Envelope Addresser Relationship Specialty Start Date End Date Ronaldo Ulrich MD [address] [place] [address] PCP - General Internal Medicine 01/18/21 documented as of this encounter
--- OUTSIDE RECORDS SUMMARY | 2024-02-10 05:34 | XMS_ITS | Encounter Summary ---
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 See encounter notes from 10.10.23 Please call and advise documented in this encounter Plan of Treatment Not on file documented as of this encounter Visit Diagnoses Not on filedocumented in this encounter Care Teams Master Sheet Clerk Relationship Specialty Start Date End Date Ronaldo Ulrich MD [address] [place] [address] PCP - General Internal Medicine 01/18/21 documented as of this encounter
--- OUTSIDE RECORDS SUMMARY | 2024-02-10 05:34 | XMS_ITS | Continuity of Care Document ---
Author Organization [facility] Address [address] [facility] [address] [place] [address] Phone Care Team Providers Care Instrument Technologist Name Role Phone Florence HUNTER Mary Unavailable [...] Diagnoses Date Provider Providers Copied on Encounter [facility], [address], [place], [place], [address], [place] tel:[phone] SEC Jeff NUNEZ Professional Follow up visit (chief complaint) Pseudophakia of right eyeAge-relat ed nuclear cataract, left eyeNexdtve age-related mclr degn, bilateral, early dry stageType 2 diabetes mellitus without complication sVisual aura 4 Florence OD Mary. [address], [place], [place], [address], [place]. tel:[phone] Farrukh Jiménez MD.Referri bubba Provider: Joe Edwards, [address] [facility] [address], [place], [address]. tel:[phone] Office/outpa tient Visit, Est [facility], [address], [place], [place], [address], [place] tel:[phone] SEC [place] Professional office visit (chief complaint) Nexdtve age-related mclr degn, bilateral, early dry stageMild nonprolifera tive diabetic retinopathy of right eye without macular edema associated with type 2 diabetes mellitus 4 Florence OD Mary. [address], [place], [place], [address], [place]. tel:[phone] Farrukh Jiménez MD.Referri ng Provider: Joe Edwards, [address], [place], [address]. tel:[phone] [facility], [address], [place], [place], [address], [place] tel:[phone] SEC [place] Professional diabetic eye exam (chief complaint) Pseudophakia of right eyeType 2 diabetes mellitus without complication sNexdtve age-related mclr degn, bilateral, early dry stageAge-rel ated nuclear cataract, left eye 3 Florence OD Mary. [address], [place], [place], [address], [place]. tel:[phone] Farrukh Jiménez MD.Referri ng Provider: Joe Edwards, [address], [place], [address]. tel:[phone] [facility], [address], [place], [place], [address], [place] tel:[phone] SEC Jeff [place] Professional Complete Exam (chief complaint) Age-related nuclear cataract, left eyeNexdtve age-related mclr degn, bilateral, early dry stagePseudop hakia of right eyeType 2 diabetes mellitus without complication s 2 Chirag Arana. [address], [address], [place], [place], [address], . tel:[phone] Farrukh Jiménez MD.Referri ng Provider: Joe Edwards, [address], [place], [address]. tel:[phone] [facility], [address], [place], [place], [address], [place] tel:[phone] SEC Jeff [place] Professional 6 month Cataract check (chief complaint) Age-related nuclear cataract, left eyePseudopha eliud of right eyeNexdtve age-related mclr degn, bilateral, early dry stageType 2 diabetes mellitus without complication s 1 Chirag Arana. [address], [address], [place], [place], [address], [place]. tel:[phone] Farrukh Jiménez MD.Referri ng Provider: Joe Edwards, [address], [place], [address]. tel:[phone] [facility], [address], [place], [place], [address], [place] tel:[phone] SEC Jeff NUNEZ Professional 1 month s/p PCIOL w/LensAR (chief complaint) Post op visit 1 Chirag Arana. [address], [address], [place], [place], [address], [place]. tel:[phone] Referring Provider: Joe Edwards, [address], [place], [address]. tel:[phone] [facility], [address], [place], [place], [address], [place] tel:[phone] SEC [place] Professional 1 wk po PCIOL OD (07/01/20) (chief complaint) Post op visit No Information Referring Provider: Joe Edwards, [address], [place], [address]. tel:[phone] [facility], [address], [place], [place], [address], [place] tel:[phone] SEC Jeff NUNEZ Professional Post-Op (chief complaint) Post op visit No Information Referring Provider: Joe Edwards, [address] [facility] [address], [place], [address]. tel:[phone] [facility], [address], [place], [place], [address], [place] tel:[phone] [facility] No Information Chirag Arana. [address], [place], [place], [address], [place]. tel:[phone] Referring Provider: Joe Edwards, [address] [facility] [address], [place], [address]. tel:[phone] [facility], [address], [place], [place], [address], [place] tel:[phone] SEC Suzie Cuevas No Information Chirag Arana. [address], [place], [place], [address], [place]. tel:[phone] Referring Provider: Joe Edwards, [address], [place], [address]. tel:[phone] [facility], [address], [place], [place], [address], [place] tel:[phone] SEC Jeff NUNEZ Professional Repeat measurements for CE (chief complaint) Combined forms of age-related cataract, right eyeAge-relat ed nuclear cataract, left eye Apr-2 6-202 1 Chirag Arana. [address], [place], [place], [address], [place]. tel:[phone] Farrukh Jiménez MD.Referri ng Provider: Joe Edwards, [address], [place], [address]. tel:[phone] Office/outpa tient Visit, [facility], [address], [place], [place], [address], [place] tel:[phone] SEC [place] [address] Cataract Check (chief complaint) Nexdtve age-related mclr degn, bilateral, early dry stageType 2 diabetes mellitus without complication sCombined forms of age-related cataract, right eyeAge-relat ed nuclear cataract, left eye Apr- 1 Chirag Arana. [address], [place], [place], [address], [place]. tel:[phone] Farrukh Jiménez MD.Referri ng Provider: Joe Edwards, [address], [place], [address]. tel:[phone] Office/outpa tient Visit, [facility], [address], [place], [place], [address], [place] tel:[phone] SEC [facility] Professional Cataract evaluation (chief complaint) Type 2 diabetes mellitus without complication Amee-related nuclear cataract, bilateralNex dtve age-related mclr degn, bilateral, early dry stage Dec- 0 Chirag Arana. [address], [place], [place], [address], [place]. tel:[phone] Farrukh Jiménez MD.Referri ng Provider: Joe Edwards, [address], [place], [address]. tel:[phone] [facility], [address], [place], [place], [address], [place] tel:[phone] SEC Jeff NUNEZ Professional No Information 0 Chirag Arana. [address] [facility], [place], [place], [address], [place]. tel:[phone] Specialist : Farrukh Jiménez MD, [address] [facility] [address], [place], [address]. tel:[phone] erring Provider: Joe Edwards, [address], [place], [address]. tel:[phone] Family History Family Member Type Diagnosis Age At Onset Problem Family history of Diabetes m amadomichelle Payers Payer name Insurance type Covered democrat ID Stoney garcia(s) [employer] Mdcr Gold Adv Prime CI [id number] Social History Type Description Quantity Date Captured [...]
--- OUTSIDE RECORDS SUMMARY | 2024-02-10 05:34 | XMS_ITS | Encounter Summary ---
Author Organization [facility] Address [address] [address] Care Team Providers Care Make Up Artist Name Role Phone Ronaldo Ulrich MD Primary Care Provider + Reason for Visit * Reason Onset Date Comments Medical Records Request 06/16/2022 Encounter Details Date Type Department Care Team (Late st Contact Info) Description 06/16/[address] 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 Pt stated that [employer] was handling and then insurance was changed to [employer]. warm transferred to back line for further assistance. Caller???s Call back #: [phone] Does message need to be routed? No documented in this encounter Plan of Treatment Not on file documented as of this encounter Visit Diagnoses Not on filedocumented in this encounter Care Teams Make Up Artist Relationship Specialty Start Date End Date Ronaldo Ulrich MD [address] [place] [address] PCP - General Internal Medicine 01/18/21 documented as of this encounter
--- OUTSIDE RECORDS SUMMARY | 2024-02-10 05:34 | XMS_ITS | Encounter Summary ---
Author Organization [facility] Address [address] [address] Care Team Providers Care Supervisor Braiding Name Role Phone Ronaldo Ulrich MD Primary Care Provider + Reason for Visit * Reason Onset Date Comments Symptom Based Call 05/12/2022 Encounter Details Date Type Department Care Team (Late st Contact Info) Description 05/12/2022 Telephone [facility] Primary Care [address] [place] [address] Ronaldo Ulrich MD [address] [place], [place] [id number] Symptom Based Call Social History Tobacco Use [...] file 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
--- OUTSIDE RECORDS SUMMARY | 2024-02-10 05:34 | XMS_ITS | Encounter Summary ---
Author Organization [facility] Healthcare Address [address] [place] [address] Care Team Providers Care Telephone Instrument Supervisor Name Role Phone Ronaldo Ulrich MD Primary Care Provider + Reason for Visit * Reason Onset Date Comments Medical Question/Miscellaneous 10/10/2023 Encounter Details Date Type Department Care Team (Late st Contact Info) Description 10/10/2023 Telephone [facility] Primary Care [address] [place] [address] Ronaldo Ulrich MD [address] [place], [place] [id number] Medical Question/Miscellaneous Social History Tobacco Use Types [...] on file 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 * Telephone Encounter - Tarsha Donovan - 10/10/2023 4:34 PM CDT Medical Question/Miscellaneous Caller???s Concern: Ashley called asking for status of request for last 2 office notes that was faxedon 09/12/23 and stating she will fax request again. Please advise and fax info to [phone] Does message need to be routed? Yes-Action Needed documented in this encounter Plan of Treatment Not on file documented as of this encounter Visit Diagnoses Not on filedocumented in this encounter Care Teams Telephone Instrument Supervisor Relationship Specialty Start Date End Date Ronaldo Ulrich MD [address] [place] [address] PCP - General Internal Medicine 01/18/21 documented as of this encounter
--- OUTSIDE RECORDS SUMMARY | 2024-02-10 05:34 | XMS_ITS | Encounter Summary ---
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 [facility] - [facility] Final Result [facility] Department [place] [address] documented in this encounter Visit Diagnoses Diagnosis Upper respiratory tract infection, unspecified type documented in this encounter Care Teams Public Policy Analyst Relationship Specialty Start Date End Date Ronaldo Ulrich MD [address] [place] [address] PCP - General Internal Medicine 01/18/21 documented as of this encounter
--- OUTSIDE RECORDS SUMMARY | 2024-02-10 05:34 | XMS_ITS | Encounter Summary ---
Author Organization [facility] Address [address] [address] Care Team Providers Care Lead Scientist Name Role Phone Ronaldo Ulrich MD Primary Care Provider + Reason for Referral * Procedure (Routine) - Closed Specialty Diagnoses / Procedures Referred By Contac t Referred To Contact Diagnoses Trigger finger, left ring finger Procedures Hand / Upper Extremity Arthrocentesis: L small A1 Nuria Thapa PA [facility] [address] [place] [address] Phone: tel: fax: [facility] Referral ID Status Reason Start Date Expiration Date Visits Re quested Visits Authorized [id number] Closed 09/26/2022 10/26/2023 1 1 Reason for Visit * Reason Comments Follow-up * Consultation (Routine) - Closed Specialty Diagnoses / Procedures Referred By Contaida t Referred To Contact Orthopedic Surgery Diagnoses Trigger finger, left ring finger Ronaldo Ulrich MD [address] [place] [address] Phone: tel: fax: Nuria Thapa PA [address] [facility] [address] [place] [address] Phone: tel: fax: Referral ID Status Reason Start Date Expiration Date V isits Requested Visits Authorized [id number] Closed Specialty Services Required 09/12/2022 10/12/2023 1 1 Encounter Details Date Type Department Care Team (Late st Contact Info) Description 09/23/2022 10:00 AM CDT Office Visit [facility] Hand Surgery [address] [facility] [address] [place] [address] Nuria Thapa PA [address] [place] [address] [address] [place] [address] Trigger finger, left ring finger Social History [...] on file 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
--- OUTSIDE RECORDS SUMMARY | 2024-02-10 05:34 | XMS_ITS | Encounter Summary ---
Author Organization [facility] Address [address] [address] Care Team Providers Care Magazine Editor Name Role Phone Ronaldo Ulrich MD Primary [...] st Contact Info) Description 02/25/2022 9:30 AM CONTROL SYSTEM MANAGER Office Visit [facility] Primary Care [address] [place] [address] Ronaldo Ulrich MD [address] [place] [address] Encounter for Medicare annual wellness exam (Primary Dx); Type 2 diabetes mellitus with circulatory disorder (CMS/HCC) (HCC); Hypertensive heart disease without heart failure; 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 2 diabetes mellitus (CMS/HCC) (HCC); Diabetic nephropathy associated with type 2 diabetes mellitus (HCC); 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 mellitus ([facility]) ([facility]); Coronary artery disease involving sokaogon coronary artery of sokaogon heart without angina pectoris; Atherosclerosis of aorta ([facility]) ([facility]); Obstructive sleep apnea; History of colon polyps; Benign prostatic hyperplasia without lower urinary tract symptoms; Class 2 severe obesity due to excess calories with serious comorbidity and body mass index (BMI) of 37.0 to 37.9 in adult ([facility]); Herpes simplex; Other headache syndrome Social History [...] on file Legal Sex Male 11:37 AM CONTROL SYSTEM MANAGER Gender Identity Not on file Sexual Orientation Not on file 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 Not on file documented as of this encounter Last Filed Vital Signs Vital Sign Reading Time Taken Comments Blood Pressure 138/64 02/25/2022 9:22 AM CONTROL SYSTEM MANAGER Pulse 85 02/25/2022 9:22 AM CONTROL SYSTEM MANAGER Temperature 35.6 ??C (96 ??F) 02/25/2022 9:22 AM CONTROL SYSTEM MANAGER Respiratory Rate 18 02/25/2022 9:22 AM CONTROL SYSTEM MANAGER Oxygen Saturation 97% 02/25/2022 9:22 AM CONTROL SYSTEM MANAGER Inhaled Oxygen Concentration - - Weight 119.7 kg (263 lb 14.4 oz) 02/25/2022 9:22 AM CONTROL SYSTEM MANAGER Height 177.8 cm (5' 10 ) 02/25/2022 9:22 AM CONTROL SYSTEM MANAGER Body Mass Index 37.87 02/25/2022 9:22 AM CONTROL SYSTEM MANAGER documented in this encounter Progress Notes * Ronaldo Ulrich MD - 02/25/2022 9:30 AM CST Images from the original note were not included. Subjective/Objective Patient ID: Ayden Santos is a 76 y.o. male. Assessment/Plan Diagnoses and all orders for this visit: Encounter for Medicare annual wellness exam (Primary) Type 2 diabetes mellitus with circulatory disorder ([facility]) ([facility]) Assessment & Plan: Complicated by hypertension coronary artery disease. Hemoglobin A1c is improving. Continue Humalog,Xultophy, Farxiga, and metformin. Hypertensive heart disease without heart failure Assessment & Plan: Well controlled on metoprolol and irbesartan hydrochlorothiazide 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 2 diabetes mellitus ([facility]) ([facility]) Assessment & Plan: Well controlled on simvastatin Diabetic nephropathy associated with type 2 diabetes mellitus ([facility]) Assessment & Plan: Elevated urine microalbumin with preserved renal function. Continue irbesartan hydrochlorothiazide at and Farxiga 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 mellitus ([facility]) ([facility]) Assessment & Plan: Hemoglobin A1c is stable. Continue metformin, Humalog, Farxiga, and Xultophy Coronary artery disease involving sokaogon coronary artery of sokaogon heart without angina pectoris Assessment & Plan: Stable on aspirin, simvastatin, metoprolol, and Farxiga follows with Dr. Jiménez Atherosclerosis of aorta ([facility]) ([facility]) Assessment & Plan: Stable on simvastatin aspirin [...] of37.0 to 37.9 in adult ([facility]) Assessment & Plan: BMI Follow-up [...] daily 30 tablet 11 blood glucose diagnostic (RefurrlTOUCH VERIO) strip smbg bid ac 100 each [...] total) daily with lunch. 270 tablet 0 RoobiqcellSMS [facility] C-Pap vit C,P-Yt-qekiu-lutein-zeaxan 250-90-40-1 mg capsule Take 1 capsule by [...] person, place, and time. Ronaldo Ulrich MD ROL SYSTEM MANAGER documented in this encounter Miscellaneous Notes * Assessment & Plan Note - Ronaldo Ulrich MD - 02/25/2022 9:36 AM CONTROL SYSTEM MANAGER Associated Problem(s): Other headache syndrome (Resolved 09/26/2023) Possibly secondary to hypertension since happens before he takes his medicine. Move second dose metoprolol to the evening. ROL SYSTEM MANAGER * Assessment & Plan Note - Ronaldo Ulrich MD - 02/24/2022 12:54 PM CONTROL SYSTEM MANAGER Associated Problem(s): Herpes simplex Stable on acyclovir ROL SYSTEM MANAGER * Assessment & Plan Note - Ronaldo Ulrich MD - 02/24/2022 12:54 PM CONTROL SYSTEM MANAGER Associated Problem(s): Class 2 severe obesity due to excess calories with serious comorbidity and body mass index (BMI) of 37.0 to 37.9 in adult (HCC) BMI Follow-up includes: exercise counseling. ROL SYSTEM MANAGER * Assessment & Plan Note - Ronaldo Ulrich MD - 02/24/2022 12:54 PM CONTROL SYSTEM MANAGER Associated Problem(s): Benign prostatic hyperplasia without lower urinary tract symptoms Stable on finasteride ROL SYSTEM MANAGER * Assessment & Plan Note - Ronaldo Ulrich MD - 02/24/2022 12:53 PM CONTROL SYSTEM MANAGER Associated Problem(s): History of colon polyps Due for repeat colonoscopy in 2023 ROL SYSTEM MANAGER * Assessment & Plan Note - Ronaldo Ulrich MD - 02/24/2022 12:53 PM CONTROL SYSTEM MANAGER Associated Problem(s): Obstructive sleep apnea Uses CPAP nightly and benefits from it ROL SYSTEM MANAGER * Assessment & Plan Note - Ronaldo Ulrich MD - 02/24/2022 12:53 PM CONTROL SYSTEM MANAGER Associated Problem(s): Atherosclerosis of aorta (CMS/HCC) ([facility]) Stable on simvastatin aspirin ROL SYSTEM MANAGER * Assessment & Plan Note - Ronaldo Ulrich MD - 02/24/2022 12:52 PM CONTROL SYSTEM MANAGER Associated Problem(s): Coronary artery disease involving sokaogon coronary artery of sokaogon heart without angina pectoris Stable on aspirin, simvastatin, metoprolol, and Farxiga follows with Dr. Jiménez ROL SYSTEM MANAGER * Assessment & Plan Note - Ronaldo Ulrich MD - 02/24/2022 12:51 PM CONTROL SYSTEM MANAGER Associated Problem(s): 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 mellitus (CMS/[facility]) ([facility]) Hemoglobin A1c is stable. Continue metformin, Humalog, Farxiga, and Xultophy ROL SYSTEM MANAGER * Assessment & Plan Note - Ronaldo Ulrich MD - 02/24/2022 12:51 PM CONTROL SYSTEM MANAGER Associated Problem(s): Diabetic nephropathy associated with type 2 diabetes mellitus ([facility]) Elevated urine microalbumin with preserved renal function. Continue irbesartan hydrochlorothiazide at and Farxiga ROL SYSTEM MANAGER * Assessment & Plan Note - Ronaldo Ulrich MD - 02/24/2022 8:06 AM CONTROL SYSTEM MANAGER Associated Problem(s): 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 2 diabetes mellitus (CMS/HCC) (HCC) Well controlled on simvastatin ROL SYSTEM MANAGER * Assessment & Plan Note - Ronaldo Ulrich MD - 02/24/2022 8:05 AM CONTROL SYSTEM MANAGER Associated Problem(s): Hypertensive heart disease without heart failure Well controlled on metoprolol and irbesartan hydrochlorothiazide ROL SYSTEM MANAGER * Assessment & Plan Note - Ronaldo Ulrich MD - 02/24/2022 8:04 AM CONTROL SYSTEM MANAGER Associated Problem(s): Type 2 diabetes mellitus with circulatory disorder (CMS/HCC) ([facility]) Complicated by hypertension coronary artery disease. Hemoglobin A1c is improving. Continue Humalog,Xultophy, Farxiga, and metformin. ROL SYSTEM MANAGER documented in this encounter Plan of [...] LAB URINE ORDERABLES Fin al Result [facility] [address] [place] [address] * (ABNORMAL) Lipid panel (09/08/2022 12:00 AM CDT) Pathologist [facility] Cholesterol 133 <200 mg/dL [facility] [...] LDL-C. Nishant GHOTRA et al. IRVING. 2013;310(19): 1170-1691 (http://education.[employer].C-Vibes/faq/GGD453) Chol/HDL ratio 3.3 <5.0 (calc) [facility] [...] ORDERABLES Fin al Result Performing Organization Address [facility] de Phone Number [facility] [address] [place] [address] * (ABNORMAL) Hemoglobin A1c (09/08/2022 12:00 AM [...] ORDERABLES Fin al Result Performing Organization Address [facility] Co de Phone Number [facility] [address] [place] [address] * (ABNORMAL) Comprehensive metabolic panel (09/08/2022 12:00 AM CDT) Glucose 151(H) 65 - 99 mg/dL [facility] Comment: ? Fasting reference interval For someone without known diabetes, a glucose value >125 mg/dL indicates that they may have diabetes and this should be confirmed with a follow-up test. BUN 25 7 - 25 mg/dL [facility] Creatinine 1.15 0.70 - 1.28 mg/dL [facility] eGFR 66 > OR = 60 mL/min/1. 73m2 [facility] Comment: The eGFR is based on the CKD-EPI 2020 equation. To calculate the new eGFR from a previous Creatinine or Cystatin C result, go to https://www.kidney.org/professionals/ kdoqi/gfr%5Fcalculator BUN/creat ratio NOT APPLICABLE 6 - 22 (calc) [facility] Sodium 139 135 - 146 mmol/L [facility] Potassium, pl 4.3 3.5 - 5.3 mmol/L [facility] Chloride 104 98 - 110 mmol/L [facility] CO2 25 20 - 32 mmol/L [facility] Calcium 9.8 8.6 - 10.3 mg/dL [facility] Protein, sr 7.2 6.1 - 8.1 g/dL [facility] Albumin 4.1 3.6 - 5.1 g/dL [facility] GLOBULIN 3.1 1.9 - 3.7 g/dL (calc) [facility] Alb/glob ratio 1.3 1.0 - 2.5 (calc) [facility] Bilirubin, total 0.5 0.2 - 1.2 mg/dL [facility] Alk phos 79 35 - 144 U/L [facility] AST 13 10 - 35 U/L [facility] ALT (SGPT) 16 9 - 46 U/L [facility] Blood 09/08/2022 09/08/2022 8:3 0 AM CDT Narrative [facility] - 09/09/2022 10:01 AM CDT FASTING:YES FASTING: YES Ronaldo Ulrich MD LAB BLOOD ORDERABLES Fin al Result [facility] [address] [place] [address] documented in this encounter Visit Diagnoses Diagnosis [...] mellitus (CMS/HCC) (HCC) Coronary artery disease involving sokaogon coronary artery of sokaogon heart without angina pectoris Atherosclerosis of aorta [...] syndrome documented in this encounter Care Teams Magazine Editor Relationship Specialty Start Date End Date Ronaldo Ulrich MD [address] [place] [address] PCP - General Internal Medicine 01/18/21 documented as of this encounter
--- OUTSIDE RECORDS SUMMARY | 2024-02-10 05:34 | XMS_ITS | Encounter Summary ---
Author Organization [facility] Healthcare Address [address] [place] [address] Care Team Providers Care Animal Science Professor Name Role Phone Ronaldo Ulrich MD Primary Care Provider + Reason for Visit * Reason Onset Date Comments Chart Review 12/13/2022 Encounter Details Date Type Department Care Team (Late st Contact Info) Description 12/13/[address] 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 Bouchra Beck CMA Patient Quality Account Officer [facility] [phone] documented in this encounter Plan of Treatment Not on file documented as of this encounter Visit Diagnoses Not on filedocumented in this encounter Care Teams Animal Science Professor Relationship Specialty Start Date End Date Ronaldo Ulrich MD [address] [place] [address] PCP - General Internal Medicine 01/18/21 documented as of this encounter
--- OUTSIDE RECORDS SUMMARY | 2024-02-10 05:34 | XMS_ITS | Encounter Summary ---
Author Organization [facility] Healthcare Address [address] [place] [address] Care Team Providers Care Order Make Up Clerk Name Role Phone Ronaldo Ulrich MD Primary Care Provider + Reason for Visit * Reason Onset Date Comments Multiple Medical Complaints 06/09/2023 Encounter Details Date Type Department Care Team (Late st Contact Info) Description 06/09/2023 Nurse Triage [facility] Primary Care [address] [place] [address] Ronaldo Ulrich MD [address] [place], [place] [id number] Social History Tobacco Use Types Packs/Day Years Used Date Smoking Tobacco: Former Cigarettes 1 35 1 [phone] - 5941 Smokeless Tobacco: Never Comments:Smoking History Pac ks/day: [...] on file Legal 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 Aware CC Miller if patient needing further assistance. Phone number to cc provided. Ayden Santos is requesting an antibiotics Encounter forward to Ronaldo Ulrich MD clinical kinsey for review and recommendation. Please advise Ayden Santos at [phone] with any further actions. Educated patient to call back if worsens, new symptoms develop or has further questions/concerns. Preferred Pharmacy [facility]/pharmacy #[id number] [place], [place] - [address] [place] [address] [address] [facility] [address] Allergies as of 06/09/2023 - Reviewed 06/09/2023 Allergen Reaction Noted Amlodipine Edema Royce inhibitors Cough Reason for Disposition Cough with cold symptoms (e.g., runny nose, postnasal drip, throat clearing) Protocols used: [id number] * Telephone Encounter - Tita Sears RN [...] documented as of this encounter Care Teams Order Make Up Clerk Relationship Specialty Start Date End Date Ronaldo Ulrich MD [address] [place] [address] PCP - General Internal Medicine 01/18/21 documented as of this encounter
--- OUTSIDE RECORDS SUMMARY | 2024-02-10 05:34 | XMS_ITS | Encounter Summary ---
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 Caller???s Call back #: [phone] Does message need to be routed? Yes-Action Needed documented in this encounter Plan of Treatment Not on file documented as of this encounter Visit Diagnoses Not on filedocumented in this encounter Care Teams Mime Artist Relationship Specialty Start Date End Date Ronaldo Ulrich MD [address] [place] [address] PCP - General Internal Medicine 01/18/21 documented as of this encounter
--- OUTSIDE RECORDS SUMMARY | 2024-02-10 05:34 | XMS_ITS | Encounter Summary ---
Author Organization [facility] Healthcare Address [address] [place] [address] Care Team Providers Care Arabic Linguist Name Role Phone Ronaldo Ulrich MD Primary Care Provider + Reason for Visit * Reason Onset Date Comments Flank Pain 05/29/2023 Encounter Details Date Type Department Care Team (Late st Contact Info) Description 05/29/2023 Nurse Triage [facility] Primary Care [address] [place] [address] Ronaldo Ulrich MD [address] [place], [place] [id number] Social History Tobacco Use Types Packs/Day Years Used Date Smoking Tobacco: Former Cigarettes 1 35 1 948 - 8427 Smokeless Tobacco: Never Comments:Smoking History Pac ks/day: [...] on file 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
--- OUTSIDE RECORDS SUMMARY | 2024-02-10 05:34 | XMS_ITS | Encounter Summary ---
Author Organization [facility] Address [address] [address] Care Team Providers Care Office Professionals Name Role Phone Ronaldo Ulrich MD Primary Care Provider + Reason for Referral * Consultation (Routine) - Closed Specialty Diagnoses / Procedures Referred By Jp t Referred To Contact Orthopedic Surgery Diagnoses Trigger finger, left ring finger Ronaldo Ulrich MD [address] [place] [address] Phone: tel: fax: Nuria Thapa, OMARI [address] [place] [address] [address] Phone: tel: fax: Referral ID Status Reason Start Date Expiration Date V isits Requested Visits Authorized [id number] Closed Specialty Services Required 09/12/2022 10/12/2023 1 1 Question Answer Please select the performing region: [facility] [[id number]] Please select the performing department: [facility] [[id number]] # of visits: 1 Comments Had injection [...] Description 09/12/2022 10:00 AM CDT Office Visit [facility] Primary Care [address] [place] [address] Ronaldo Ulrich MD [address] [place] [address] Type 2 diabetes mellitus with other circulatory complication, with long-term current use of insulin (HCC) (Primary Dx); Hypertensive heart disease without heart failure; 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 2 diabetes mellitus (CMS/HCC) (HCC); Coronary artery disease involving tribal coronary artery of tribal heart without angina pectoris; Atherosclerosis of aorta [...] Type 2 diabetes mellitus with circulatory disorder ([facility]) Social History Tobacco Use Types Packs/Day Years [...] on file 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 Jiménez Orders: - metoprolol tartrate (LOPRESSOR) 50 mg immediate release tablet; Take 2 tablets (100 mg total) by mouth every morning AND 1 tablet (50 mg total) daily with lunch. - Lipid panel; Future Atherosclerosis of aorta ([facility]) ([facility]) Assessment & Plan: Stable on simvastatin and aspirin Obstructive sleep apnea Assessment & Plan: Uses CPAP nightly and benefits from it 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 mellitus ([facility]) ([facility]) Assessment & Plan: Hemoglobin A1c is stable. Continue metformin, Humalog, Farxiga, and Xultophy Benign prostatic hyperplasia without lower urinary tract symptoms Assessment & Plan: Stable on finasteride Diabetic nephropathy associated with type 2 diabetes mellitus ([facility]) Assessment & Plan: Elevated urine microalbumin with preserved renal function. Continue irbesartan hydrochlorothiazide at and Farxiga Orders: - Hemoglobin A1c; Future History of colon polyps Assessment & Plan: Due for repeat colonoscopy in 2023 Class 2 severe obesity due to excess calories with serious comorbidity and body mass index (BMI) of37.0 to 37.9 in adult ([facility]) Assessment & Plan: BMI Follow-up includes: exercise counseling. Herpes simplex Assessment & Plan: Stable on acyclovir Trigger finger, left ring finger - Ambulatory referral to Orthopedic Surgery; Future Benign essential tremor Assessment & Plan: Does not happen often. Will observe Type 2 diabetes mellitus with circulatory disorder ([facility]) Assessment & Plan: Complicated by hypertension coronary [...] weeks. 3 kit 3 miscellaneous medical supply [facility] C-Pap vit C,T-Yt-akamx-lutein-zeaxan 250-90-40-1 mg capsule Take 1 capsule by [...] CDT Associated Problem(s): Atherosclerosis of aorta (CMS/HCC) ([facility]) Stable on simvastatin and aspirin * Assessment & Plan Note - Ronaldo Ulrich MD - 09/07/2022 11:22 AM CDT Associated Problem(s): Coronary artery disease involving tribal coronary artery of tribal heart without angina pectoris Stable on aspirin, simvastatin, metoprolol, and Farxiga follows with Dr. Jiménez * Assessment & Plan Note - Ronaldo Ulrich MD - 09/07/2022 11:22 AM CDT Associated Problem(s): 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 2 diabetes mellitus ([facility]) ([facility]) Well controlled on simvastatin * Assessment & Plan Note - Ronaldo Ulrich MD - 09/07/2022 11:22 AM CDT Associated Problem(s): Hypertensive heart disease without heart failure Well controlled on metoprolol and irbesartan hydrochlorothiazide * Assessment & Plan Note - Ronaldo Ulrich MD - 09/07/2022 11:22 AM CDT Associated Problem(s): Type 2 diabetes mellitus with circulatory disorder (CMS/HCC) ([facility]) Complicated by hypertension coronary artery disease. Stable. [...] Comments HEMOGLOBIN A1C Routine 03/15/2023 7:47 AM JUVENILE CORRECTIONAL OFFICER Diabetic nephropathy associated with type 2 diabetes mellitus (HCC) LIPID PANEL Routine 03/15/2023 7:47 AM JUVENILE CORRECTIONAL OFFICER 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 2 diabetes mellitus (CMS/HCC) (HCC) Coronary artery disease involving tribal coronary artery of tribal heart without angina pectoris COMPREHENSIVE METABOLIC PANEL Routine 03/15/2023 7:47 AM JUVENILE CORRECTIONAL OFFICER 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 2 diabetes mellitus (CMS/HCC) (HCC) documented in this encounter Results * (ABNORMAL) Lipid panel (03/15/2023 7:47 AM JUVENILE CORRECTIONAL OFFICER) Cholesterol 110 <200 mg/dL [facility]ona [facility] HDL 30(L) > OR = 40 mg/dL This Week InGill José Triglycerides 161(H) <150 mg/dL This Week In-Jason José LDL 56 mg/dL (calc) This Week In-Jason José Comment: Reference range: <100 Desirable range <100 mg/dL for primary prevention; ?? <70 mg/dL for patients with CHD or diabetic patients with > or = 2 CHD risk factors. LDL-C is now calculated using the Nishant-Lizeth calculation, which is a validated novel method providing better accuracy than the Friedewald equation in the estimation of LDL-C. Nishant GHOTRA et al. IRVING. 2013;310(19): 4620-3780 (http://education.better./faq/EFG947) Chol/HDL ratio 3.7 <5.0 (calc) Rhona José Non-HDL, (LDL+VLDL) 80 <130 mg/dL (calc) [facility]ona [facility] Comment: For patients with diabetes plus 1 major ASCVD risk factor, treating to a non-HDL-C goal of <100 mg/dL (LDL-C of <70 mg/dL) is considered a therapeutic option. Blood 03/15/2023 7:47 AM JUVENILE CORRECTIONAL OFFICER 03/15/2023 7:47 AM JUVENILE CORRECTIONAL OFFICER Narrative [facility] - 03/17/2023 1:39 PM JUVENILE CORRECTIONAL OFFICER FASTING:YES FASTING: YES Ronaldo Ulrich MD LAB BLOOD ORDERABLES Fin al Result Performing Organization Address [facility] de Phone Number [facility] [address] [place] [address] * (ABNORMAL) Hemoglobin A1c (03/15/2023 7:47 AM JUVENILE CORRECTIONAL OFFICER) Hgb A1C 7.0(H) <5.7 % of total Hgb [facility] Comment: For someone without known diabetes, a [...] Hanley platform. ?? Blood 03/15/2023 7:47 AM JUVENILE CORRECTIONAL OFFICER 03/15/2023 7:47 AM JUVENILE CORRECTIONAL OFFICER Narrative [facility] - 03/17/2023 1:39 PM JUVENILE CORRECTIONAL OFFICER FASTING:YES FASTING: YES Result [facility] Ronaldo Ulrich MD LAB BLOOD ORDERABLES Fin al Result Performing Organization Address [facility] de Phone Number [facility] [address] [place] [address] * (ABNORMAL) Comprehensive metabolic panel (03/15/2023 7:47 AM JUVENILE CORRECTIONAL OFFICER) Glucose 139(H) 65 - 99 mg/dL [facility] Comment: ? Fasting reference interval For someone without known diabetes, a glucose value >125 mg/dL indicates that they may have diabetes and this should be confirmed with a follow-up test. BUN 26(H) 7 - 25 mg/dL [facility] Creatinine 1.16 0.70 - 1.28 mg/dL [facility] eGFR 64 > OR = 60 mL/min/1.7 3m2 [facility] BUN/creat ratio 22 6 - 22 (calc) [facility] Sodium 139 135 - 146 mmol/L [facility] Potassium, pl 4.5 3.5 - 5.3 mmol/L [facility] Chloride 104 98 - 110 mmol/L [facility] CO2 21 20 - 32 mmol/L [facility] Calcium 9.1 8.6 - 10.3 mg/dL [facility] Protein, sr 7.2 6.1 - 8.1 g/dL [facility] Albumin 4.0 3.6 - 5.1 g/dL [facility] GLOBULIN 3.2 1.9 - 3.7 g/dL (calc) [facility] Alb/glob ratio 1.3 1.0 - 2.5 (calc) [facility] Bilirubin, total 0.5 0.2 - 1.2 mg/dL [facility] Alk phos 73 35 - 144 U/L [facility] AST 14 10 - 35 U/L [facility] ALT (SGPT) 14 9 - 46 U/L [facility] Blood 03/15/2023 7:47 AM JUVENILE CORRECTIONAL OFFICER 03/15/2023 7:47 AM JUVENILE CORRECTIONAL OFFICER Narrative [facility] - 03/17/2023 1:39 PM JUVENILE CORRECTIONAL OFFICER FASTING:YES FASTING: YES us Ronaldo Ulrich MD LAB BLOOD ORDERABLES Fin al Result [facility] [address] [place] [address] documented in this encounter Visit Diagnoses Diagnosis Type 2 diabetes mellitus with other circulatory complication, with long-term current use of insulin (HCC)- Primary Hypertensive heart disease without heart failure Unspecified hypertensive heart disease without heart failure 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 2 diabetes mellitus (CMS/HCC) (HCC) Coronary artery disease involving tribal coronary artery of tribal heart without angina pectoris Atherosclerosis of aorta [...] disease without heart failure,Coronary artery disease involving tribal coronary artery of tribal heart without angina pectoris Take 2 tablets [...] documented as of this encounter Care Teams Office Professionals Relationship Specialty Start Date End Date Ronaldo Ulrich MD [address] [place] [address] PCP - General Internal Medicine 01/18/21 documented as of this encounter
--- OUTSIDE RECORDS SUMMARY | 2024-02-10 05:34 | XMS_ITS | Encounter Summary ---
Author Organization [facility] Healthcare Address [address] [place] [address] Care Team Providers Care Education Rn Name Role Phone Ronaldo Ulrich MD Primary Care Provider + Reason for Visit * Reason Onset Date Comments Medical Records Request 11/17/2023 Encounter Details Date Type Department Care Team (Late st Contact Info) Description 11/17/2023 Telephone [facility] Primary Care [address] [place] [address] Ronaldo Ulrich MD [address] [place], [place] [id number] Medical Records Request Social History Tobacco Use Types Packs/Day Years Used Date Smoking Tobacco: Former Cigarettes 1 35 1 948 - 3066 Smokeless Tobacco: Never Comments:Smoking History Pac ks/day: [...] on file 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 Third Republican or other (e.g. W/C, Foreclosure Field Inspector, Insurance) How does the caller want to obtain the HIPAA Authorization for Release of Information form? fax Fax Number to use for return of forms: [phone] How will caller return form? will fax to HIM at [phone] Additional Comments: Ashley jones/ [facility] calling [...] on filedocumented in this encounter Care Teams Education Rn Relationship Specialty Start Date End Date Ronaldo Ulrich MD [address] [place] [address] PCP - General Internal Medicine 01/18/21 documented as of this encounter
--- OUTSIDE RECORDS SUMMARY | 2024-02-10 05:34 | XMS_ITS | Encounter Summary ---
Author Organization [facility] Healthcare Address [address] [place] [address] Care Team Providers Care Automotive Parts Counter Assistant Name Role Phone Ronaldo Ulrich MD Primary Care Provider + Encounter Details Date Type Department Care Team (Late st Contact Info) Description 12/01/2023 Orders Only [facility] Information Management [address] [place] [address] Scanning, Provider Social History Tobacco Use Types Packs/Day Years Used Date Smoking Tobacco: Former Cigarettes 1 35 1 948 - 3915 Smokeless Tobacco: Never Comments:Smoking History Pac ks/day: [...] on file 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
--- OUTSIDE RECORDS SUMMARY | 2024-02-10 05:34 | XMS_ITS | Encounter Summary ---
Author Organization [facility] Address [address] [place] [address] Care Team Providers Care Fan Blade Truer Name Role Phone Ronaldo Ulrich MD Primary [...] Description 09/27/2023 10:00 AM CDT Office Visit [facility] Primary Care [address] [place] [id number] Ronaldo Ulrich MD [address] [place], [place] [id number] Type 2 diabetes mellitus with other circulatory complication, with long-term current use of insulin (HCC) (Primary Dx); 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 2 diabetes mellitus (CMS/HCC) (HCC); Hypertensive heart disease without heart failure; Coronary artery disease involving newhalen coronary artery of newhalen heart without angina pectoris; Diabetic peripheral neuropathy [...] on file 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 Gender Identity Not on file Sexual [...] long-term current use of insulin ([facility]) Take 1 tablet (500 mg total) by mouth 2 (two) times a day with meals 180 tablet 1 09/27/2023 simvastatin (ZOCOR) 40 mg tabletIndications: 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) Take 1 tablet (40 mg total) by mouth nightly 90 tablet 1 09/27/2023 metoprolol tartrate (LOPRESSOR) 50 mg immediate release tabletIndications: Hypertensive heart disease without heart failure,Coronary artery disease involving newhalen coronary artery of newhalen heart without angina pectoris Take 2 tablets [...] with long-term current use of insulin([facility]) (Primary) Assessment & Plan: Complicated by [...] daily with lunch. Coronary artery disease involving newhalen coronary artery of newhalen heart without angina pectoris Assessment & Plan: Stable on aspirin, simvastatin, metoprolol, and Farxiga follows with Dr. Jiménez Orders: - metoprolol tartrate (LOPRESSOR) 50 mg immediate release tablet; Take 2 tablets (100 mg total) by mouth every morning AND 1 tablet (50 mg total) daily with lunch. 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 mellitus ([facility]) ([facility]) Assessment & Plan: Hemoglobin A1c is increased.. Continue metformin, Humalog, Farxiga, and Xultophy. Stress ADA diet Neuropathy controlled without medication Atherosclerosis of aorta ([facility]) ([facility]) Assessment & Plan: Stable on simvastatin [...] with type 2 diabetes mellitus ([facility]) Assessment & Plan: Elevated urine microalbumin with preserved renal function. Continue irbesartan hydrochlorothiazide and Farxiga History of colon polyps Assessment & Plan: Due for repeat colonoscopy in December of 2023 Class 2 severe obesity due to excess calories with serious comorbidity and body mass index (BMI) of37.0 to 37.9 in adult ([facility]) Assessment & Plan: BMI Follow-up includes: [...] tablet by mouth daily 90 tablet 1 [facility] C-Pap vit C,X-Xo-lfwho-lutein-zeaxan 250-90-40-1 mg capsule Take 1 capsule by [...] nightly 90 tablet 1 subcutaneous insulin pump [facility] As directed daily (Patient not taking: Reported [...] finasteride * Assessment & Plan Note - Ronlado Ulrich MD - 09/26/2023 7:15 AM CDT Associated Problem(s): Obstructive sleep apnea Uses CPAP nightly and benefits from it * Assessment & Plan Note - Ronaldo Ulrich MD - 09/26/2023 7:15 AM CDT Associated Problem(s): Atherosclerosis of aorta (CMS/HCC) ([facility]) Stable on simvastatin and aspirin * Assessment & Plan Note - Ronaldo Ulrich MD - 09/26/2023 7:15 AM CDT Associated Problem(s): 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 mellitus (CMS/HCC) ([facility]) Hemoglobin A1c is increased.. Continue metformin, Humalog, Farxiga, and Xultophy. Stress ADA diet Neuropathy controlled without medication * Assessment & Plan Note - Ronaldo Ulrich MD - 09/26/2023 7:14 AM CDT Associated Problem(s): Coronary artery disease involving [place]en coronary artery of newhalen heart without angina pectoris Stable on aspirin, [...] type 2 diabetes mellitus (CMS/HCC) ([facility]) Well controlled on simvastatin. Triglycerides improving. * Assessment & Plan Note - Ronaldo Ulrich MD - 09/26/2023 7:14 AM CDT Associated Problem(s): Type 2 diabetes mellitus with circulatory disorder ([facility]) ([facility]) Complicated by hypertension coronary artery disease. Hemoglobin A1c was increased.. Continue Humalog, Xultophy, Farxiga, and metformin. 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 2 diabetes mellitus ([facility]) ([facility]) Expected: 03/29/2024, Expires: 09/26/2024 Hemoglobin A1c Lab Routine Type 2 diabetes mellitus with other circulatory complication, with long-term current use of insulin ([facility]) Expected: 03/29/2024, Expires: 09/26/2024 Lipid panel Lab Routine 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 2 diabetes mellitus ([facility]) ([facility]) Expected: 03/29/2024, Expires: 09/26/2024 documented as of this encounter Visit Diagnoses Diagnosis Type 2 diabetes mellitus with other circulatory complication, with long-term current use of insulin ([facility])- Primary 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 2 diabetes mellitus ([facility]) ([facility]) Hypertensive heart disease without heart failure Unspecified hypertensive heart disease without heart failure Coronary artery disease involving [place]halen coronary artery of newhalen heart without angina pectoris 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 mellitus ([facility]) ([facility]) Atherosclerosis of aorta ([facility]) ([facility]) Atherosclerosis of aorta Obstructive sleep apnea Obstructive sleep apnea (adult) (pediatric) Benign prostatic hyperplasia without lower urinary tract symptoms Diabetic nephropathy associated with type 2 diabetes mellitus ([facility]) History of colon polyps Class 2 severe obesity due to excess calories with serious comorbidity and body mass index (BMI) of 37.0 to 37.9 in adult ([facility]) Benign essential tremor Essential and other [...] disease without heart failure,Coronary artery disease involving [place] coronary artery of newhalen heart without angina pectoris TAKE 2 TABLETS [...] documented as of this encounter Care Teams Fan Blade Truer Relationship Specialty Start Date End Date Ronaldo Ulrich MD [address] [place] [address] PCP - General Internal Medicine 01/18/21 documented as of this encounter
--- OUTSIDE RECORDS SUMMARY | 2024-02-10 05:34 | XMS_ITS | Encounter Summary ---
Author Organization [facility] Address [address] [place] [address] Care Team Providers Care Meat Puller Name Role Phone Ronaldo Ulrich MD Primary Care Provider + Reason for Visit * Reason Onset Date Comments ACO Quality Outreach 11/23/2021 Encounter Details Date Type Department Care Team (Late st Contact Info) Description 11/23/2021 Telephone [facility] Accountable Care Organization [address] [place] [address] Angelica Garcia MA [address] [place] [address] [address] [place] [address] ACO Quality Outreach Social History Tobacco Use [...] on file 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 Refill of Simvastatin was due 11-22. Patient last filled a 30 day supply. Called patient. Left VM to return call to this telegraphic typewriter operator to discuss. YOAN Laguna Patient Outreach End Polisher [facility]O [phone] documented in this encounter Plan of Treatment Not on file documented as of this encounter Visit Diagnoses Not on filedocumented in this encounter Additional Health Concerns Infection Onset Date Last Indicated Resolved Time COVID: Recovered Comment:Added based on recent COVID infection. 08/03/2021 08/19/2021 12/01/2021 3:05 AM C DT documented as of this encounter Care Teams Meat Puller Relationship Specialty Start Date End Date Ronaldo Ulrich MD [address] [place] [address] PCP - General Internal Medicine 01/18/21 documented as of this encounter
--- OUTSIDE RECORDS SUMMARY | 2024-02-10 05:34 | XMS_ITS | Encounter Summary ---
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 Pharmacy will be sending a fax and pt asking that this be sent to them fatmata to obtain rx Does message need to be routed? Yes-Action Needed MAKER documented in this encounter Plan of Treatment Not on file documented as of this encounter Visit Diagnoses Not on filedocumented in this encounter Care Teams Loan Funder Relationship Specialty Start Date End Date Ronaldo Ulrich MD [address] [place] [address] PCP - General Internal Medicine 01/18/21 documented as of this encounter
--- OUTSIDE RECORDS SUMMARY | 2024-02-10 05:34 | XMS_ITS | Encounter Summary ---
Author Organization [facility] Address [address] [address] Care Team Providers Care Piano Instructor Name Role Phone Ronaldo Ulrich MD Primary Care Provider + Reason for Visit * Reason Onset Date Comments Medical Records Request 04/28/2022 Encounter Details Date Type Department Care Team (Late st Contact Info) Description 04/28/[address] 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 Caller???s Call back #: [phone] Does message need to be routed?Yes-FYI Only CE MACHINES WIRER documented in this encounter Plan of Treatment Not on file documented as of this encounter Visit Diagnoses Not on filedocumented in this encounter Care Teams Piano Instructor Relationship Specialty Start Date End Date Ronaldo Ulrich MD [address] [place] [id number] PCP - General Internal Medicine 01/18/21 documented as of this encounter
--- OUTSIDE RECORDS SUMMARY | 2024-02-10 05:34 | XMS_ITS | Encounter Summary ---
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 Gender Identity Not on file Sexual [...] Miscellaneous Notes * Telephone Encounter - Shari Honyecutt MA - 11/06/2023 2:20 PM CDT Rx sent * Telephone Encounter - Nena Jackson - 11/06/2023 2:01 PM CDT Medication Refill Patient's last Office/Video Visit: 09.27.23 Patient's next Office/Video Visit: 04.03.24 Medication(s) Name/Dose: 31G X 14 inches 025 X 6mm Pen [place] (inject one to four times daily as directed) Pharmacy (s) medication(s) should be sent to: [facility]/pharmacy #[id number] [place], [place] - [address] [place] [address] Additional Comments: Patient stating he is needing a new prescription for the Pen [place], stated it was last filled in 2019. He also stated this was last filled by a provider he no longer see. Does message need to be routed? Yes-Action Needed documented in this encounter Plan of Treatment Not on file documented as of this encounter Visit Diagnoses Not on filedocumented in this encounter Care Teams Waste Reclaimer Relationship Specialty Start Date End Date Ronaldo Ulrich MD [address] [place] [address] PCP - General Internal Medicine 11/29/21 documented as of this encounter
--- OUTSIDE RECORDS SUMMARY | 2024-02-10 05:34 | XMS_ITS | Encounter Summary ---
Author Organization [facility] Address [address] [facility] [address] [place] [address] Care Team Providers Care Roller Stainer Name Role Phone Ronaldo Ulrich MD Primary Care Provider + Reason for Visit * Reason Onset Date Comments ACO Quality Outreach 12/08/2021 Encounter Details Date Type Department Care Team (Late st Contact Info) Description 12/08/2021 Telephone [facility] Accountable Care Organization [address] [place] [address] Angelica Garcia MA [address] [place] [address] [address] [place] [address] ACO Quality Outreach Social History Tobacco Use [...] on file 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 Refill of Simvastatin was due 11-22. Patient last filled a 30 day supply Pt will call the pharmacy. Pt stated he has a few left now YOAN Laguna Patient Outreach Plugging Machine Operator [facility]-ACO [phone] documented in this encounter Plan of Treatment Not on file documented as of this encounter Visit Diagnoses Not on filedocumented in this encounter Care Teams Roller Stainer Relationship Specialty Start Date End Date Ronaldo Ulrich MD [address] [place] [address] PCP - General Internal Medicine 01/18/21 documented as of this encounter
--- OUTSIDE RECORDS SUMMARY | 2024-02-10 05:34 | XMS_ITS | Encounter Summary ---
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 Gender Identity Not on file Sexual Orientation Not on file 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 Not on file documented as of this encounter Ordered Prescriptions Prescription Sig Dispense Quantity Refills Last Filled Start Date End Date insulin degludec-liragluti de (Xultophy 100/3.6) 100 unit-3.6 mg /mL (3 mL) insulin pen penIndications:Typ e 2 diabetes mellitus with circulatory disorder (HCC) Inject 50 Units into the skin daily 45 mL 1 03/17/2022 09/12/2022 documented in this encounter Miscellaneous Notes * Telephone Encounter - Kelsea Lockhart - 03/17/2022 5:14 PM CST Medical Question/Miscellaneous Caller???s Concern: magnolia from [facility] stated a request for medical records was faxed. Unable to locate under media tab. Please check if fax was received and confirm with caller. Caller???s Call back #: [phone] Does message need to be routed?Yes-Action Needed NG ASSEMBLER * Telephone Encounter - Shari Honeycutt MA - 03/17/2022 3:35 PM CST Rx sent to [facility] NG ASSEMBLER * Telephone Encounter - Stephanie Perez - 03/17/2022 3:07 PM CST Medication sent to wrong pharmacy Medication Name(s): xultophy 100/3.6 100 unit-3.6mg/ml (3ml) insulin pen Correct Pharmacy Medication should be sent to? [facility] in [facility] Caller's Callback #: [phone] Additional Comments: patient was given three different phone numbers all [facility] needs [facility] Phone numbers are [phone] Please let patient know when this has been done Does message need to be routed? 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
--- OUTSIDE RECORDS SUMMARY | 2024-02-10 05:34 | XMS_ITS | Referral Summary ---
Author Organization [facility] Address [address] [place] [address] Care Team Providers Care Greens Picker Name Role Phone Ronaldo Ulrich MD Primary Care Provider + Encounters Date Type Department Care Team Description 12/01/2023 Orders Only [facility] [place] [address] [place] [address] Scanning, Provider 11/17/2023 Telephone [facility] Primary Care [address] [place] [address] Ronaldo Ulrich MD Medical Records [...] weeks. 3 kit 3 1 Active vit C,L-Rc-nkhad-lut ein-zeaxan 250-90-40-1 mg capsule Take 1 capsule [...] complication, with long-term current use of insulin ([facility]) Take 1 tablet (500 mg [...] complication, with long-term current use of insulin ([facility]) TAKE 1 TABLET BY MOUTH [...] disease without heart failure,Coronary artery disease involving [place] coronary artery of [place] heart without angina pectoris TAKE 2 TABLETS [...] Farxiga Assessment & Plan (03/20/2023 1:35 PM DIAMOND SELECTOR): Elevated urine microalbumin with preserved renal function. Continue irbesartan hydrochlorothiazide at and xiga Assessment & Plan (09/07/2022 11:23 AM CDT): Elevated urine microalbumin with preserved renal function. Continue irbesartan hydrochlorothiazide at and Farxiga Assessment & Plan (02/24/2022 12:51 PM DIAMOND SELECTOR): Elevated urine microalbumin with preserved renal function. [...] finasteride Assessment & Plan (03/20/2023 1:34 PM DIAMOND SELECTOR): Stable on finasteride Assessment & Plan (09/07/2022 11:23 AM CDT): Stable on finasteride Assessment & Plan (02/24/2022 12:54 PM DIAMOND SELECTOR): Stable on finasteride Assessment & Plan (08/19/2021 7:22 AM CDT): Stable on finasteride Assessment & Plan (02/10/2021 12:20 PM DIAMOND SELECTOR): Stable on finasteride Assessment & Plan (11/05/2020 12:15 PM CDT): Stable on finasteride Diabetic peripheral neuropat hy associated with type 2 diabetes mellitus ([facility]) 09/05/2019 Assessment & Plan (09/26/2023 7:15 AM CDT): Hemoglobin A1c is increased.. Continue metformin, Humalog, Farxiga, and Xultophy. Stress ADA diet Neuropathy controlled without medication Assessment & Plan (03/20/2023 1:34 PM DIAMOND SELECTOR): Hemoglobin A1c is stable. Continue metformin, Humalog, Farxiga, and Xultophy Assessment & Plan (09/07/2022 11:23 AM CDT): Hemoglobin A1c is stable. Continue metformin, Humalog, Farxiga, and Xultophy Assessment & Plan (02/24/2022 12:52 PM DIAMOND SELECTOR): Hemoglobin A1c is stable. Continue metformin, Humalog, Farxiga, and Xultophy Assessment & Plan (08/19/2021 7:21 AM CDT): Hemoglobin A1c is stable. Continue metformin, Humalog, Farxiga, and Xultophy. Neuropathy controlled with gabapentin Assessment & Plan (02/10/2021 12:19 PM DIAMOND SELECTOR): Hemoglobin A1c is slowly improving on metformin, [...] sugars Assessment & Plan (04/20/2020 5:37 PM DIAMOND SELECTOR): Numbness and tingling in the feet bilaterally, [...] it Assessment & Plan (03/20/2023 1:34 PM DIAMOND SELECTOR): Uses CPAP nightly and benefits from it Assessment & Plan (09/07/2022 11:23 AM CDT): Uses CPAP nightly and benefits from it Assessment & Plan (02/24/2022 12:53 PM DIAMOND SELECTOR): Uses CPAP nightly and benefits from it Assessment & Plan (08/19/2021 7:25 AM CDT): Uses CPAP nightly and benefits from it Assessment & Plan (02/10/2021 12:19 PM DIAMOND SELECTOR): Uses CPAP nightly and benefits from it [...] Medicine. Assessment & Plan (03/07/2019 10:39 AM DIAMOND SELECTOR): Continue CPAP use nightly and for naps. Patient is compliant and has good relief of daytime somnolence with CPAP use. Followed by Sleep Medicine. Chronic right-sided low back pain without sciati ca 02/07/2019 Assessment & Plan (05/30/2023 10:30 AM CDT): Resolved now. Will observe Assessment & Plan (02/07/2019 5:22 PM DIAMOND SELECTOR): Gentle lumbar stretching exercises. Discussed value of weight loss for decreasing pain. Discussed lumbar x-ray but he would prefer to try stretching 1st. Atherosclerosis of aorta (CMS/HCC) 02/15/2018 Overview (09/05/2019): CT scan 11/21/2018 The abdominal aorta and branches are atherosclerotic. Assessment & Plan (09/26/2023 7:15 AM CDT): Stable on simvastatin and aspirin Assessment & Plan (03/20/2023 1:34 PM DIAMOND SELECTOR): Stable on simvastatin and aspirin Assessment & Plan (09/07/2022 11:22 AM CDT): Stable on simvastatin and aspirin Assessment & Plan (02/24/2022 12:53 PM DIAMOND SELECTOR): Stable on simvastatin aspirin Assessment & Plan (08/19/2021 7:23 AM CDT): Stable on simvastatin and aspirin Assessment & Plan (02/10/2021 12:19 PM DIAMOND SELECTOR): Stable on simvastatin and aspirin Assessment & Plan (11/05/2020 12:13 PM CDT): Stable on simvastatin and aspirin Assessment & Plan (04/17/2020 11:02 AM DIAMOND SELECTOR): Continue risk factor mangement. Assessment & Plan [...] orders Assessment & Plan (02/25/2018 1:23 PM DIAMOND SELECTOR): Reviewed all diagnostics surgery referrals laboratory Answer all questions Reviewed all diagnostics surgery referrals laboratory Answer all questions Control dm htn lipid Call for le weakness abdominal pain fatigue Coronary artery disease invo lving [place] coronary artery of [place] heart without angina pectoris 04/07/2017 Overview (04/20/2020): [...] Jiménez Assessment & Plan (03/20/2023 1:33 PM DIAMOND SELECTOR): Stable on aspirin, simvastatin, metoprolol, and Farxiga follows with Dr. Jiménez Assessment & Plan (09/07/2022 11:22 AM CDT): Stable on aspirin, simvastatin, metoprolol, and Farxiga follows with Dr. Jiménez Assessment & Plan (02/24/2022 12:52 PM DIAMOND SELECTOR): Stable on aspirin, simvastatin, metoprolol, and Farxiga follows with Dr. Jiménez Assessment & Plan (08/19/2021 7:20 AM CDT): Stable on aspirin, simvastatin, metoprolol, Farxiga, and aspirin. Follows with Dr. Jiménez Assessment & Plan (02/10/2021 12:20 PM DIAMOND SELECTOR): Stable on aspirin, simvastatin, metoprolol, and irbesartan [...] Cardiology. Assessment & Plan (04/20/2020 5:35 PM DIAMOND SELECTOR): Nonobstructing CAD. No angina. Preserved EF 60-70%. [...] regularly. Assessment & Plan (04/11/2019 5:37 PM DIAMOND SELECTOR): No angina. Stable. Continue aspirin, beta-priscilla, ARB and statin for secondary prevention. Followed by Cardiology. Assessment & Plan (03/07/2019 6:29 PM DIAMOND SELECTOR): Stable, no angina. Continue aspirin, beta-priscilla, ARB and statin for secondary prevention. Followed by Cardiology Assessment & Plan (02/20/2019 3:58 PM DIAMOND SELECTOR): Stable, no angina. 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 Assessment & Plan (11/27/2018 7:25 AM CDT): [...] regularly. Assessment & Plan (02/25/2018 1:23 PM DIAMOND SELECTOR): No change Daily weights call for greater [...] 2023 Assessment & Plan (03/20/2023 1:34 PM DIAMOND SELECTOR): Due for repeat colonoscopy in December of 2023 Assessment & Plan (09/07/2022 11:24 AM CDT): Due for repeat colonoscopy in 2023 Assessment & Plan (02/24/2022 12:53 PM DIAMOND SELECTOR): Due for repeat colonoscopy in 2023 Assessment & Plan (08/19/2021 7:25 AM CDT): Had colonoscopy by Dr. Schmitt in December of 2020. Recommend repeat colonoscopy in 2023 Assessment & Plan (11/27/2018 7:26 AM CDT): Reviewed all diagnostics surgery referrals laboratory Answer all questions Fu colorectal and gi is not due Assessment & Plan (02/21/2017 9:17 AM DIAMOND SELECTOR): 02/22/10 Dr. Marroquin, polyp, due x 5 [...] counseling. Assessment & Plan (03/20/2023 1:35 PM DIAMOND SELECTOR): BMI Follow-up includes: exercise counseling. Assessment & Plan (09/07/2022 11:24 AM CDT): BMI Follow-up includes: exercise counseling. Assessment & Plan (02/24/2022 12:54 PM DIAMOND SELECTOR): BMI Follow-up includes: exercise counseling. Assessment & Plan (08/19/2021 7:24 AM CDT): BMI Follow-up includes: exercise counseling. Assessment & Plan (02/10/2021 12:16 PM DIAMOND SELECTOR): BMI Follow-up includes: exercise counseling. Assessment & [...] loss. Assessment & Plan (04/17/2020 10:49 AM DIAMOND SELECTOR): BMI Follow-up includes: nutrition counseling, exercise counseling [...] provided. Assessment & Plan (04/11/2019 11:29 AM DIAMOND SELECTOR): BMI Follow-up includes: nutrition counseling, exercise counseling and education provided. Assessment & Plan (03/07/2019 10:16 AM DIAMOND SELECTOR): BMI Follow-up includes: nutrition counseling, exercise counseling and education provided. Assessment & Plan (02/18/2019 11:41 AM DIAMOND SELECTOR): BMI Follow-up includes: nutrition counseling, exercise counseling [...] provided. Assessment & Plan (02/15/2018 9:45 AM DIAMOND SELECTOR): BMI Follow-up includes: nutrition counseling, exercise counseling [...] provided. Assessment & Plan (03/27/2017 9:43 AM DIAMOND SELECTOR): BMI Follow-up includes: nutrition counseling, exercise counseling and education provided. Assessment & Plan (02/21/2017 8:46 AM DIAMOND SELECTOR): BMI Follow-up includes: nutrition counseling, exercise counseling and education provided. 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 Triglycerides improving. Assessment & Plan (03/20/2023 1:33 PM DIAMOND SELECTOR): Well controlled on simvastatin. Triglycerides improving. Assessment & Plan (09/07/2022 11:22 AM CDT): Well controlled on simvastatin Assessment & Plan (02/24/2022 8:06 AM DIAMOND SELECTOR): Well controlled on simvastatin Assessment & Plan (08/19/2021 7:20 AM CDT): Well controlled on simvastatin Assessment & Plan (02/10/2021 12:15 PM DIAMOND SELECTOR): Well controlled on simvastatin Assessment & Plan (11/05/2020 12:12 PM CDT): Well controlled on simvastatin Assessment & Plan (09/03/2020 11:11 AM CDT): Lipids are well controlled. Continue statin therapy. Assessment & Plan (04/20/2020 5:45 PM DIAMOND SELECTOR): Established CAD. LDL 42, which is at [...] provider Assessment & Plan (02/25/2018 1:22 PM DIAMOND SELECTOR): Plan to eat meals same time each [...] . Assessment & Plan (04/24/2017 7:44 AM DIAMOND SELECTOR): Lipid abnormalities are unchanged. Nutritional counseling was provided. and Pharmacotherapy as ordered. Lipids will be reassessed in 3 months see orders. Assessment & Plan (02/16/2017 1:27 PM DIAMOND SELECTOR): Lipid abnormalities are unchanged. Nutritional counseling was [...] 2 diabetes mellitus wit h circulatory disorder ([facility]) 08/04/2011 Overview (06/19/2020): Diabetes mellitus type II, uncontrolled Coronary artery disease Able to tolerate only 500 mg of metformin Per day due to diarrhea Assessment & Plan (09/26/2023 7:14 AM CDT): Complicated by hypertension coronary artery disease. Hemoglobin A1c was increased.. Continue Humalog, Xultophy, Farxiga, and metformin. Stress ADA diet Assessment & Plan (03/20/2023 1:32 PM DIAMOND SELECTOR): Complicated by hypertension coronary artery disease. Hemoglobin A1c continues to improve. Continue Humalog, Xultophy, Farxiga, and metformin. Assessment & Plan (09/07/2022 11:22 AM CDT): Complicated by hypertension coronary artery disease. Stable. Continue Humalog, Xultophy, Farxiga, and metformin. Assessment & Plan (02/24/2022 8:05 AM DIAMOND SELECTOR): Complicated by hypertension coronary artery disease. Hemoglobin A1c is improving. Continue Humalog, Xultophy, Farxiga, and metformin. Assessment & Plan (08/20/2021 10:02 AM CDT): Complicated by hypertension and coronary artery disease. Hemoglobin A1c is stable, but still elevated. Continue Humalog, Xultophy, and metformin. Increased Farxiga 10 mg once day. Will try to arrange a insulin pump. Assessment & Plan (02/11/2021 10:42 AM DIAMOND SELECTOR): Complicated by hypertension and coronary artery disease. [...] dose. Assessment & Plan (04/20/2020 5:30 PM DIAMOND SELECTOR): Diabetes is not well controlled. Increase Xultopy [...] pump Assessment & Plan (12/22/2019 7:05 PM DIAMOND SELECTOR): 11/28/19 Hgb A1C above goal at 8.9% Increase Xultopy to 50 units once daily. Continue premeal short acting insulin. He is taking 4 insulin injections daily and would qualify for a Velostackyle erick blood glucose monitor.Will order through specialty [...] days a week as suggested by his pug mill operator helper. Discussed that this will help to control blood sugars. Extensive discussion of low-carbohydrate diet. He continues to find this hard to follow due to eating all of his meals out. He is really not willing to consider cooking at home. Discussed low carb ideas for dining out. Assessment & Plan (04/11/2019 5:42 PM DIAMOND SELECTOR): Not well controlled with hemoglobin A1c of [...] often. Assessment & Plan (03/07/2019 6:32 PM DIAMOND SELECTOR): Continue with exercise and weight loss. We [...] orders Assessment & Plan (02/25/2018 1:22 PM DIAMOND SELECTOR): Stable Lab pending Reviewed past medication, medical, [...] orders Assessment & Plan (04/24/2017 7:47 AM DIAMOND SELECTOR): Stable Lab pending Reviewed past medication, medical, [...] injury Assessment & Plan (02/21/2017 9:11 AM DIAMOND SELECTOR): I have reviewed past medical, surgical, family, [...] understanding. Assessment & Plan (02/16/2017 1:27 PM DIAMOND SELECTOR): Stable Lab pending Reviewed past medication, medical, [...] NOS Assessment & Plan (03/20/2023 1:35 PM DIAMOND SELECTOR): Stable on acyclovir Assessment & Plan (09/07/2022 11:24 AM CDT): Stable on acyclovir Assessment & Plan (02/24/2022 12:54 PM DIAMOND SELECTOR): Stable on acyclovir Assessment & Plan (11/09/2020 [...] hydrochlorothiazide Assessment & Plan (03/20/2023 1:33 PM DIAMOND SELECTOR): Well controlled on metoprolol and irbesartan hydrochlorothiazide Assessment & Plan (09/07/2022 11:22 AM CDT): Well controlled on metoprolol and irbesartan hydrochlorothiazide Assessment & Plan (02/24/2022 8:05 AM DIAMOND SELECTOR): Well controlled on metoprolol and irbesartan hydrochlorothiazide Assessment & Plan (08/19/2021 7:19 AM CDT): Well controlled on metoprolol and irbesartan hydrochlorothiazide Assessment & Plan (02/10/2021 12:15 PM DIAMOND SELECTOR): Well controlled on metoprolol and irbesartan hydrochlorothiazide [...] exercise. Assessment & Plan (04/11/2019 5:38 PM DIAMOND SELECTOR): Blood pressure is well controlled. Continue valsartan HCT Reviewed low sodium diet and hidden sources of sodium in the diet to avoid. Assessment & Plan (03/07/2019 6:30 PM DIAMOND SELECTOR): Blood pressure is well controlled. Continue valsartan HCT Reviewed low sodium diet and hidden sources of sodium in the diet to avoid. Assessment & Plan (02/20/2019 3:56 PM DIAMOND SELECTOR): Blood pressure is well controlled. Continue irbesartan HCT Reviewed low sodium diet and hidden sources of sodium in the diet to avoid. Assessment & Plan (02/07/2019 10:47 AM DIAMOND SELECTOR): Blood pressure is well controlled. Continue irbesartan [...] orders Assessment & Plan (02/25/2018 1:22 PM DIAMOND SELECTOR): Hypertension is unchanged. Continue current treatment regimen. [...] orders Assessment & Plan (04/24/2017 7:44 AM DIAMOND SELECTOR): Hypertension is unchanged. Continue current treatment regimen. [...] orders Assessment & Plan (02/16/2017 1:26 PM DIAMOND SELECTOR): Borderline Hypertension is unchanged. Continue current treatment [...] 07/2023 Assessment & Plan (02/25/2022 9:37 AM DIAMOND SELECTOR): Possibly secondary to hypertension since happens before he takes his medicine. Move second dose metoprolol to the evening. Trigger finger, left ring finger 02/11/2021 09/26/2023 Assessment & Plan (02/11/2021 10:47 AM DIAMOND SELECTOR): Refer to hand specialist Acute bronchitis 01/21/2021 02/10/2021 Assessment & Plan (01/21/2021 3:33 PM DIAMOND SELECTOR): Contact our office if no improvement after treatment, develop new symptoms or feeling worse at any point. History of colon polyps 11/25/2020 01/0 06/2022 Overview (11/25/2020): Added automatically from request for surgery [id number] Sciatica of right side 09/17/202009/25 Assessment & [...] 04/20/2020 Assessment & Plan (12/22/2019 8:10 AM DIAMOND SELECTOR): Continues to half right hip pain 6 [...] 04/20/2020 Assessment & Plan (03/07/2019 6:33 PM DIAMOND SELECTOR): Resolved with decrease in metformin to 500 mg daily. Assessment & Plan (02/20/2019 3:54 PM DIAMOND SELECTOR): Symptoms improved with decreased metformin dose. He can use Imodium prior to eating out or to control urgency on the airplane. He has noted that high carbohydrate meals 10 to increase his symptoms and I encouraged him to continue to limit simple carbohydrates. Assessment & Plan (02/07/2019 5:21 PM DIAMOND SELECTOR): Decrease metformin to 500 mg BID. Start [...] 11/28/2018. Assessment & Plan (02/07/2019 5:21 PM DIAMOND SELECTOR): Pain has resolved post repair. Assessment & [...] surgery. Assessment & Plan (02/07/2019 5:23 PM DIAMOND SELECTOR): Bright red bleeding probably due to internal [...] the patient for rtov I, Xena Valencia OFFICE SPECIALIST have personally reviewed pertinent Hospital/ER data including [...] 19 Assessment & Plan (02/25/2018 1:24 PM DIAMOND SELECTOR): Ice elevate compression Xray neg some soft [...] 02/10/2021 Assessment & Plan (04/20/2020 5:46 PM DIAMOND SELECTOR): Reviewed previous labs and diagnostic test results. [...] cancer Assessment & Plan (02/10/2021 12:17 PM DIAMOND SELECTOR): Had colonoscopy by Dr. Roberts on January [...] well balance using plate method found at [email or web address] stay well hydrated with water and walk 5 days a week Assessment & Plan (08/16/2018 3:48 PM CDT): eat three meals a day same time each day well balance using plate method found at [email or web address] stay well hydrated with water and walk 5 days a week Assessment & Plan (06/01/2018 4:05 PM CDT): eat three meals a day same time each day well balance using plate method found at [email or web address] stay well hydrated with water and walk 5 days a week Assessment & Plan (02/25/2018 1:22 PM DIAMOND SELECTOR): eat three meals a day same time each day well balance using plate method found at [email or web address] stay well hydrated with water and walk 5 days a week Type 2 diabetes mellitus wit h neurologic complication 12/03/2015 11/05/2020 Overview (05/26/2016): Type 2 diabetes mellitus with diabetic autonomic neuropathy, without long-term current use of insulin Assessment & Plan (02/07/2019 5:19 PM DIAMOND SELECTOR): Reviewed diabetic foot care Assessment & Plan [...] orders Assessment & Plan (02/25/2018 1:23 PM DIAMOND SELECTOR): Stable Lab pending Reviewed past medication, medical, [...] orders Assessment & Plan (04/24/2017 7:47 AM DIAMOND SELECTOR): Stable Lab pending Reviewed past medication, medical, [...] podiatry Assessment & Plan (02/25/2018 1:22 PM DIAMOND SELECTOR): Do not go barefoot Wear supportive shoes [...] podiatry Assessment & Plan (04/24/2017 7:44 AM DIAMOND SELECTOR): Do not go barefoot Wear supportive shoes [...] hemorrhoids Assessment & Plan (04/17/2020 11:01 AM DIAMOND SELECTOR): Refer to colorectal surgery. Continue stool softener [...] hemorrhoidectomy Assessment & Plan (02/10/2021 12:18 PM DIAMOND SELECTOR): Had repeat colonoscopy by Dr. Roberts on January 19, 2021. Recommend follow-up colonoscopy in 3 years Assessment & Plan (11/05/2020 12:14 PM CDT): Due for repeat colonoscopy. Assessment & Plan (04/17/2020 10:48 AM DIAMOND SELECTOR): Three year surveillance interval recommended by GI. Schedule colonoscopy. Immunizations Name Administration Dates Next Due COVID-19 mRNA ([employer]) 0.3 m L (30 mcg) vaccine (12 [...] on file Legal Sex Male 11:37 AM DIAMOND SELECTOR Gender Identity Not on file Sexual Orientation [...] 3 PM CDT COLONOSCOPY 01/19/2021 11:48 AM DIAMOND SELECTOR DIABETIC FOOT EXAM Routine 09/05/2019 CT ABDOMEN W CONTRAST Schedule Routine, Read Routine (OP Routine) 12/17/2018 3:05 PM CDT Abnormal findings on diagnostic imaging of lung Acute right-sided thoracic back pain HEPATITIS C ANTIBODY Routine 12/01/2016 12:00 AM CDT Type 2 diabetes mellitus with other circulatory complication, unspecified custodial insulin use status (CMS/HCC) from Last 3 Months or Most Recently Relevant to Health Maintenance Results * SCAN - OTHER ORDERS (12/01/2023 9:45 PM CDT) us Provider Scanning Final Result * (ABNORMAL) Albumin Creatinine Ratio, Urine (09/20/2023 9:33 AM CDT) Creatinine, ur 50 20 - 320 mg/dL [facility] Microalbumin, ur 27.4 See Note: mg/dL [facility] Comment: Reference Range: Reference Range Not established Microalbumin/creat ratio 548(H) <30 mg/g creat [facility] Comment: The ADA defines abnormalities in [...] MD LAB URINE ORDERABLES Fin al Result [facility] [address] [place] [address] * (ABNORMAL) Hemoglobin A1c (09/20/2023 9:33 AM CDT) Hgb A1C 7.9(H) <5.7 % of total Hgb [facility] Comment: For someone without known diabetes, [...] ? This test was performed on the [employer] christian c503 platform. Effective 05/08/23, a change in test platforms from the [employer] to the [employer] christian c503 may have shifted HbA1c results compared to historical results. Based on laboratory validation testing conducted at [facility], the [employer] platform relative to the [place] [...] MD LAB BLOOD ORDERABLES Fin al Result [facility] [address] [place] [address] * (ABNORMAL) Lipid panel (09/20/2023 9:33 AM CDT) [facility] Cholesterol 117 <200 mg/dL [facility] HDL 36(L) > OR = 40 mg/dL [facility] Triglycerides 207(H) <150 mg/dL [facility] Comment: If a non-fasting specimen was collected, consider repeat triglyceride testing on a fasting specimen if clinically indicated. Wilmer et al. J. of Clin. Lipidol. 2015;9:129-169. LDL 54 mg/dL (calc) [facility] Comment: Reference range: <100 Desirable range <100 mg/dL for primary prevention; ?? <70 mg/dL for patients with CHD or diabetic patients with > or = 2 CHD risk factors. LDL-C is now calculated using the Nishant-Lizeth calculation, which is a validated novel method providing better accuracy than the Friedewald equation in the estimation of LDL-C. Nishant SS et al. IRVING. 2013;310(19): 7894-9095 (http://education.[employer]/faq/NSI520) Chol/HDL ratio 3.3 <5.0 (calc) [facility] Non-HDL, (LDL+VLDL) 81 <130 mg/dL (calc) [facility] Comment: For patients with diabetes plus 1 major ASCVD risk factor, treating to a non-HDL-C goal of <100 mg/dL (LDL-C of <70 mg/dL) is considered a therapeutic option. Blood 09/20/2023 9:33 AM CDT 09/20/2023 9:34 AM CDT Narrative [facility] - 09/21/2023 4:55 PM CDT FASTING:YES FASTING: YES us Ronaldo Ulrich MD LAB BLOOD ORDERABLES Fin al [facility] [address] [place] [address] * (ABNORMAL) Comprehensive metabolic panel (09/20/2023 9:33 AM CDT) Glucose 154(H) 65 - 99 mg/dL [facility] Comment: ? Fasting reference interval For someone without known diabetes, a glucose value >125 mg/dL indicates that they may have diabetes and this should be confirmed with a follow-up test. BUN 19 7 - 25 mg/dL [facility] Creatinine 1.16 0.70 - 1.28 mg/dL [facility] eGFR 64 > OR = 60 mL/min/1.7 3m2 [facility] BUN/creat ratio SEE NOTE: 6 (calc) [facility] Comment: ?? Not Reported: BUN and Creatinine are within ?? reference range. ? Sodium 137 135 - 146 mmol/L [facility] Potassium, pl 4.1 3.5 - 5.3 mmol/L [facility] Chloride 100 98 - 110 mmol/L [facility] CO2 28 20 - 32 mmol/L [facility] Calcium 9.3 8.6 - 10.3 mg/dL [facility] Protein, sr 7.1 6.1 - 8.1 g/dL [facility] Albumin 4.1 3.6 - 5.1 g/dL [facility] GLOBULIN 3.0 1.9 - 3.7 g/dL (calc) [facility] Alb/glob ratio 1.4 1.0 - [...] Fin al Result [facility] [id number] [place] [address] * Diabetic Eye Exam (09/18/2023 2:53 PM CDT) us Historical Provider HEALTH MAINTENANCE Final Result * COLONOSCOPY (01/19/2021 11:48 AM DIAMOND SELECTOR) Anatomical Region Laterality Modality Other Narrative Procedure Note Carson Roberts MD PhD - 01/19/2021 11:48 AM CST ENDOSCOPY LAB Patient Name: Ayden Santos Procedure Date: 01/19/2021 11:48AM Date of : 1945 Admit Type: Outpatient Age: 75 Gender: Male Attending MD: Carson Roberts MD,PHD Room: [facility] ENDOSCOPY ROOM 02 Note Status: [...] The scope was passed under direct vision.The [id number] was introduced through the anusand advanced to [place] [facility] [place]: [phone]. After hours, evening, nights, weekends and holidays- Please call the hospital boiler control room operator at and ask for the GI fellow clinical services consultant. Attending Participation: I personally performed the entire procedure. Electronically signed by Carson Roberts MD. Carson Roberts MD, PHD 01/19/2021 12:22:26 PM Number of Addenda: 0 Note Initiated On: 01/19/2021 11:48 AM us Carson Roberts MD PhD ENDOSCOPY PROCEDURES Anya l Result * Diabetic Foot Exam (09/05/2019) us Historical Provider [facility] Edited Result - Final * CT Abdomen [...] with a HCV Nucleic Acid Amplification test ([id number]). Blood specimen (specimen) 12/01/2016 12/01/2016 Narrative [facility] - 12/02/2016 11:14 AM CDT Performed at: ??01 - [facility] [address] ??[id number] Road Mender: Woodrow Michel PhD, Phone: ??[phone] Xena Valencia NP LAB MICROBIOLOGY - G ENERAL ORDERABLES Final Result [facility] - 01 from Last 3 Months or Most Recently Relevant to Health Maintenance Insurance [employer] MED[employer]ARE MEDICARE [facility] MEDICARE Address: [address] [address] [place] [address] [employer] MED[employer]ARE Advance Directives For more information, please contact: [phone] * Full Code (Latest Code Status on File) Date Activated Date Inactivated Comments 01/19/2021 9:58 AM 01/19/2021 5:23 PM Care Teams Greens Picker Relationship Specialty Start Date End Date Ronaldo Ulrich MD [address] [place] [address] PCP - General Internal Medicine 01/18/21
--- OUTSIDE RECORDS SUMMARY | 2024-02-10 05:34 | XMS_ITS | Clinical Summary ---
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 3 kit 3 1 Active vit C,Q-Kh-gjwji-lut ein-zeaxan 250-90-40-1 mg capsule Take 1 capsule [...] complication, with long-term current use of insulin ([facility]) TAKE 1 TABLET BY MOUTH EVERY DAY [...] disease without heart failure,Coronary artery disease involving minto coronary artery of minto heart without angina pectoris TAKE 2 TABLETS [...] Farxiga Assessment & Plan (03/20/2023 1:35 PM SYSTEM DEVELOPMENT MANAGER): Elevated urine microalbumin with preserved renal function. Continue irbesartan hydrochlorothiazide at and Farxiga Assessment & Plan (09/07/2022 11:23 AM CDT): Elevated urine microalbumin with preserved renal function. Continue irbesartan hydrochlorothiazide at and Farxiga Assessment & Plan (02/24/2022 12:51 PM SYSTEM DEVELOPMENT MANAGER): Elevated urine microalbumin with preserved renal function. [...] finasteride Assessment & Plan (03/20/2023 1:34 PM SYSTEM DEVELOPMENT MANAGER): Stable on finasteride Assessment & Plan (09/07/2022 11:23 AM CDT): Stable on finasteride Assessment & Plan (02/24/2022 12:54 PM SYSTEM DEVELOPMENT MANAGER): Stable on finasteride Assessment & Plan (08/19/2021 7:22 AM CDT): Stable on finasteride Assessment & Plan (02/10/2021 12:20 PM SYSTEM DEVELOPMENT MANAGER): Stable on finasteride Assessment & Plan (11/05/2020 12:15 PM CDT): Stable on finasteride Diabetic peripheral neuropat hy associated with type 2 diabetes mellitus ([facility]) 09/05/2019 Assessment & Plan (09/26/2023 7:15 AM CDT): Hemoglobin A1c is increased.. Continue metformin, Humalog, Farxiga, and Xultophy. Stress ADA diet Neuropathy controlled without medication Assessment & Plan (03/20/2023 1:34 PM SYSTEM DEVELOPMENT MANAGER): Hemoglobin A1c is stable. Continue metformin, Humalog, Farxiga, and Xultophy Assessment & Plan (09/07/2022 11:23 AM CDT): Hemoglobin A1c is stable. Continue metformin, Humalog, Farxiga, and Xultophy Assessment & Plan (02/24/2022 12:52 PM SYSTEM DEVELOPMENT MANAGER): Hemoglobin A1c is stable. Continue metformin, Humalog, Farxiga, and Xultophy Assessment & Plan (08/19/2021 7:21 AM CDT): Hemoglobin A1c is stable. Continue metformin, Humalog, Farxiga, and Xultophy. Neuropathy controlled with gabapentin Assessment & Plan (02/10/2021 12:19 PM SYSTEM DEVELOPMENT MANAGER): Hemoglobin A1c is slowly improving on metformin, [...] sugars Assessment & Plan (04/20/2020 5:37 PM SYSTEM DEVELOPMENT MANAGER): Numbness and tingling in the feet bilaterally, [...] it Assessment & Plan (03/20/2023 1:34 PM SYSTEM DEVELOPMENT MANAGER): Uses CPAP nightly and benefits from it Assessment & Plan (09/07/2022 11:23 AM CDT): Uses CPAP nightly and benefits from it Assessment & Plan (02/24/2022 12:53 PM SYSTEM DEVELOPMENT MANAGER): Uses CPAP nightly and benefits from it Assessment & Plan (08/19/2021 7:25 AM CDT): Uses CPAP nightly and benefits from it Assessment & Plan (02/10/2021 12:19 PM SYSTEM DEVELOPMENT MANAGER): Uses CPAP nightly and benefits from it [...] Medicine. Assessment & Plan (03/07/2019 10:39 AM SYSTEM DEVELOPMENT MANAGER): Continue CPAP use nightly and for naps. Patient is compliant and has good relief of daytime somnolence with CPAP use. Followed by Sleep Medicine. Chronic right-sided low back pain without sciati ca 02/07/2019 Assessment & Plan (05/30/2023 10:30 AM CDT): Resolved now. Will observe Assessment & Plan (02/07/2019 5:22 PM SYSTEM DEVELOPMENT MANAGER): Gentle lumbar stretching exercises. Discussed value of weight loss for decreasing pain. Discussed lumbar x-ray but he would prefer to try stretching 1st. Atherosclerosis of aorta (CMS/HCC) 02/15/2018 Overview (09/05/2019): CT scan 11/21/2018 The abdominal aorta and branches are atherosclerotic. Assessment & Plan (09/26/2023 7:15 AM CDT): Stable on simvastatin and aspirin Assessment & Plan (03/20/2023 1:34 PM SYSTEM DEVELOPMENT MANAGER): Stable on simvastatin and aspirin Assessment & Plan (09/07/2022 11:22 AM CDT): Stable on simvastatin and aspirin Assessment & Plan (02/24/2022 12:53 PM SYSTEM DEVELOPMENT MANAGER): Stable on simvastatin aspirin Assessment & Plan (08/19/2021 7:23 AM CDT): Stable on simvastatin and aspirin Assessment & Plan (02/10/2021 12:19 PM SYSTEM DEVELOPMENT MANAGER): Stable on simvastatin and aspirin Assessment & Plan (11/05/2020 12:13 PM CDT): Stable on simvastatin and aspirin Assessment & Plan (04/17/2020 11:02 AM SYSTEM DEVELOPMENT MANAGER): Continue risk factor mangement. Assessment & Plan [...] orders Assessment & Plan (02/25/2018 1:23 PM SYSTEM DEVELOPMENT MANAGER): Reviewed all diagnostics surgery referrals laboratory Answer all questions Reviewed all diagnostics surgery referrals laboratory Answer all questions Control dm htn lipid Call for le weakness abdominal pain fatigue Coronary artery disease invo lving minto coronary artery of minto heart without angina pectoris 04/07/2017 Overview (04/20/2020): [...] Jiménez Assessment & Plan (03/20/2023 1:33 PM SYSTEM DEVELOPMENT MANAGER): Stable on aspirin, simvastatin, metoprolol, and Farxiga follows with Dr. Jiménez Assessment & Plan (09/07/2022 11:22 AM CDT): Stable on aspirin, simvastatin, metoprolol, and Farxiga follows with Dr. Jiménez Assessment & Plan (02/24/2022 12:52 PM SYSTEM DEVELOPMENT MANAGER): Stable on aspirin, simvastatin, metoprolol, and Farxiga follows with Dr. Jiménez Assessment & Plan (08/19/2021 7:20 AM CDT): Stable on aspirin, simvastatin, metoprolol, Farxiga, and aspirin. Follows with Dr. Jiménez Assessment & Plan (02/10/2021 12:20 PM SYSTEM DEVELOPMENT MANAGER): Stable on aspirin, simvastatin, metoprolol, and irbesartan [...] Cardiology. Assessment & Plan (04/20/2020 5:35 PM SYSTEM DEVELOPMENT MANAGER): Nonobstructing CAD. No angina. Preserved EF 60-70%. [...] regularly. Assessment & Plan (04/11/2019 5:37 PM SYSTEM DEVELOPMENT MANAGER): No angina. Stable. Continue aspirin, beta-priscilla, ARB and statin for secondary prevention. Followed by Cardiology. Assessment & Plan (03/07/2019 6:29 PM SYSTEM DEVELOPMENT MANAGER): Stable, no angina. Continue aspirin, beta-priscilla, ARB and statin for secondary prevention. Followed by Cardiology Assessment & Plan (02/20/2019 3:58 PM SYSTEM DEVELOPMENT MANAGER): Stable, no angina. Follow-up is scheduled with his sliver lap machine tender. Assessment & Plan (11/27/2018 7:25 AM CDT): [...] regularly. Assessment & Plan (02/25/2018 1:23 PM SYSTEM DEVELOPMENT MANAGER): No change Daily weights call for greater [...] 2023 Assessment & Plan (03/20/2023 1:34 PM SYSTEM DEVELOPMENT MANAGER): Due for repeat colonoscopy in December of 2023 Assessment & Plan (09/07/2022 11:24 AM CDT): Due for repeat colonoscopy in 2023 Assessment & Plan (02/24/2022 12:53 PM SYSTEM DEVELOPMENT MANAGER): Due for repeat colonoscopy in 2023 Assessment & Plan (08/19/2021 7:25 AM CDT): Had colonoscopy by Dr. Schmitt in December of 2020. Recommend repeat colonoscopy in 2023 Assessment & Plan (11/27/2018 7:26 AM CDT): Reviewed all diagnostics surgery referrals laboratory Answer all questions Fu colorectal and gi is not due Assessment & Plan (02/21/2017 9:17 AM SYSTEM DEVELOPMENT MANAGER): 02/22/10 Dr. Marroquin, polyp, due x 5 [...] counseling. Assessment & Plan (03/20/2023 1:35 PM SYSTEM DEVELOPMENT MANAGER): BMI Follow-up includes: exercise counseling. Assessment & Plan (09/07/2022 11:24 AM CDT): BMI Follow-up includes: exercise counseling. Assessment & Plan (02/24/2022 12:54 PM SYSTEM DEVELOPMENT MANAGER): BMI Follow-up includes: exercise counseling. Assessment & Plan (08/19/2021 7:24 AM CDT): BMI Follow-up includes: exercise counseling. Assessment & Plan (02/10/2021 12:16 PM SYSTEM DEVELOPMENT MANAGER): BMI Follow-up includes: exercise counseling. Assessment & [...] loss. Assessment & Plan (04/17/2020 10:49 AM SYSTEM DEVELOPMENT MANAGER): BMI Follow-up includes: nutrition counseling, exercise counseling [...] provided. Assessment & Plan (04/11/2019 11:29 AM SYSTEM DEVELOPMENT MANAGER): BMI Follow-up includes: nutrition counseling, exercise counseling and education provided. Assessment & Plan (03/07/2019 10:16 AM SYSTEM DEVELOPMENT MANAGER): BMI Follow-up includes: nutrition counseling, exercise counseling and education provided. Assessment & Plan (02/18/2019 11:41 AM SYSTEM DEVELOPMENT MANAGER): BMI Follow-up includes: nutrition counseling, exercise counseling [...] provided. Assessment & Plan (02/15/2018 9:45 AM SYSTEM DEVELOPMENT MANAGER): BMI Follow-up includes: nutrition counseling, exercise counseling [...] provided. Assessment & Plan (03/27/2017 9:43 AM SYSTEM DEVELOPMENT MANAGER): BMI Follow-up includes: nutrition counseling, exercise counseling and education provided. Assessment & Plan (02/21/2017 8:46 AM SYSTEM DEVELOPMENT MANAGER): BMI Follow-up includes: nutrition counseling, exercise counseling and education provided. Assessment & Plan (01/11/2017 9:12 AM SYSTEM DEVELOPMENT MANAGER): BMI Follow-up includes: nutrition counseling, exercise counseling [...] walking Assessment & Plan (02/16/2017 1:27 PM SYSTEM DEVELOPMENT MANAGER): Ice not heat , Rest with periods [...] to type 2 diabetes mellitus ( [facility]) 11/02/2015 Overview (05/26/2016): 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 2 diabetes mellitus Assessment & Plan (09/26/2023 7:14 AM CDT): Well controlled on simvastatin. Triglycerides improving. Assessment & Plan (03/20/2023 1:33 PM SYSTEM DEVELOPMENT MANAGER): Well controlled on simvastatin. Triglycerides improving. Assessment & Plan (09/07/2022 11:22 AM CDT): Well controlled on simvastatin Assessment & Plan (02/24/2022 8:06 AM SYSTEM DEVELOPMENT MANAGER): Well controlled on simvastatin Assessment & Plan (08/19/2021 7:20 AM CDT): Well controlled on simvastatin Assessment & Plan (02/10/2021 12:15 PM SYSTEM DEVELOPMENT MANAGER): Well controlled on simvastatin Assessment & Plan (11/05/2020 12:12 PM CDT): Well controlled on simvastatin Assessment & Plan (09/03/2020 11:11 AM CDT): Lipids are well controlled. Continue statin therapy. Assessment & Plan (04/20/2020 5:45 PM SYSTEM DEVELOPMENT MANAGER): Established CAD. LDL 42, which is at [...] provider Assessment & Plan (02/25/2018 1:22 PM SYSTEM DEVELOPMENT MANAGER): Plan to eat meals same time each [...] . Assessment & Plan (04/24/2017 7:44 AM SYSTEM DEVELOPMENT MANAGER): Lipid abnormalities are unchanged. Nutritional counseling was provided. and Pharmacotherapy as ordered. Lipids will be reassessed in 3 months see orders. Assessment & Plan (02/16/2017 1:27 PM SYSTEM DEVELOPMENT MANAGER): Lipid abnormalities are unchanged. Nutritional counseling was [...] diabetes mellitus wit h circulatory disorder ([facility]) 08/04/2011 Overview (06/19/2020): Diabetes mellitus type II, uncontrolled Coronary artery disease Able to tolerate only 500 mg of metformin Per day due to diarrhea Assessment & Plan (09/26/2023 7:14 AM CDT): Complicated by hypertension coronary artery disease. Hemoglobin A1c was increased.. Continue Humalog, Xultophy, Farxiga, and metformin. Stress ADA diet Assessment & Plan (03/20/2023 1:32 PM SYSTEM DEVELOPMENT MANAGER): Complicated by hypertension coronary artery disease. Hemoglobin A1c continues to improve. Continue Humalog, Xultophy, Farxiga, and metformin. Assessment & Plan (09/07/2022 11:22 AM CDT): Complicated by hypertension coronary artery disease. Stable. Continue Humalog, Xultophy, Farxiga, and metformin. Assessment & Plan (02/24/2022 8:05 AM SYSTEM DEVELOPMENT MANAGER): Complicated by hypertension coronary artery disease. Hemoglobin A1c is improving. Continue Humalog, Xultophy, Farxiga, and metformin. Assessment & Plan (08/20/2021 10:02 AM CDT): Complicated by hypertension and coronary artery disease. Hemoglobin A1c is stable, but still elevated. Continue Humalog, Xultophy, and metformin. Increased Farxiga 10 mg once day. Will try to arrange a insulin pump. Assessment & Plan (02/11/2021 10:42 AM SYSTEM DEVELOPMENT MANAGER): Complicated by hypertension and coronary artery disease. [...] dose. Assessment & Plan (04/20/2020 5:30 PM SYSTEM DEVELOPMENT MANAGER): Diabetes is not well controlled. Increase Xultopy [...] pump Assessment & Plan (12/22/2019 7:05 PM SYSTEM DEVELOPMENT MANAGER): 11/28/19 Hgb A1C above goal at 8.9% [...] days a week as suggested by his sliver lap machine tender. Discussed that this will help to control blood sugars. Extensive discussion of low-carbohydrate diet. He continues to find this hard to follow due to eating all of his meals out. He is really not willing to consider cooking at home. Discussed low carb ideas for dining out. Assessment & Plan (04/11/2019 5:42 PM SYSTEM DEVELOPMENT MANAGER): Not well controlled with hemoglobin A1c of [...] often. Assessment & Plan (03/07/2019 6:32 PM SYSTEM DEVELOPMENT MANAGER): Continue with exercise and weight loss. We [...] orders Assessment & Plan (02/25/2018 1:22 PM SYSTEM DEVELOPMENT MANAGER): Stable Lab pending Reviewed past medication, medical, [...] orders Assessment & Plan (04/24/2017 7:47 AM SYSTEM DEVELOPMENT MANAGER): Stable Lab pending Reviewed past medication, medical, [...] injury Assessment & Plan (02/21/2017 9:11 AM SYSTEM DEVELOPMENT MANAGER): I have reviewed past medical, surgical, family, social and medication history. We have discussed the need for balanced nutrition utilizing the plate method which can be found at [employer].gov. We have discussed glycemic goals. Patient will [...] understanding. Assessment & Plan (02/16/2017 1:27 PM SYSTEM DEVELOPMENT MANAGER): Stable Lab pending Reviewed past medication, medical, [...] NOS Assessment & Plan (03/20/2023 1:35 PM SYSTEM DEVELOPMENT MANAGER): Stable on acyclovir Assessment & Plan (09/07/2022 11:24 AM CDT): Stable on acyclovir Assessment & Plan (02/24/2022 12:54 PM SYSTEM DEVELOPMENT MANAGER): Stable on acyclovir Assessment & Plan (11/09/2020 [...] hydrochlorothiazide Assessment & Plan (03/20/2023 1:33 PM SYSTEM DEVELOPMENT MANAGER): Well controlled on metoprolol and irbesartan hydrochlorothiazide Assessment & Plan (09/07/2022 11:22 AM CDT): Well controlled on metoprolol and irbesartan hydrochlorothiazide Assessment & Plan (02/24/2022 8:05 AM SYSTEM DEVELOPMENT MANAGER): Well controlled on metoprolol and irbesartan hydrochlorothiazide Assessment & Plan (08/19/2021 7:19 AM CDT): Well controlled on metoprolol and irbesartan hydrochlorothiazide Assessment & Plan (02/10/2021 12:15 PM SYSTEM DEVELOPMENT MANAGER): Well controlled on metoprolol and irbesartan hydrochlorothiazide [...] exercise. Assessment & Plan (04/11/2019 5:38 PM SYSTEM DEVELOPMENT MANAGER): Blood pressure is well controlled. Continue valsartan HCT Reviewed low sodium diet and hidden sources of sodium in the diet to avoid. Assessment & Plan (03/07/2019 6:30 PM SYSTEM DEVELOPMENT MANAGER): Blood pressure is well controlled. Continue valsartan HCT Reviewed low sodium diet and hidden sources of sodium in the diet to avoid. Assessment & Plan (02/20/2019 3:56 PM SYSTEM DEVELOPMENT MANAGER): Blood pressure is well controlled. Continue irbesartan HCT Reviewed low sodium diet and hidden sources of sodium in the diet to avoid. Assessment & Plan (02/07/2019 10:47 AM SYSTEM DEVELOPMENT MANAGER): Blood pressure is well controlled. Continue irbesartan [...] orders Assessment & Plan (02/25/2018 1:22 PM SYSTEM DEVELOPMENT MANAGER): Hypertension is unchanged. Continue current treatment regimen. [...] orders Assessment & Plan (04/24/2017 7:44 AM SYSTEM DEVELOPMENT MANAGER): Hypertension is unchanged. Continue current treatment regimen. [...] orders Assessment & Plan (02/16/2017 1:26 PM SYSTEM DEVELOPMENT MANAGER): Borderline Hypertension is unchanged. Continue current treatment [...] 02/25/202207/2023 Assessment & Plan (02/25/2022 9:37 AM SYSTEM DEVELOPMENT MANAGER): Possibly secondary to hypertension since happens before he takes his medicine. Move second dose metoprolol to the evening. Trigger finger, left ring finger 02/11/2021 09/26/2023 Assessment & Plan (02/11/2021 10:47 AM SYSTEM DEVELOPMENT MANAGER): Refer to hand specialist Acute bronchitis 01/21/2021 02/10/2021 Assessment & Plan (01/21/2021 3:33 PM SYSTEM DEVELOPMENT MANAGER): Contact our office if no improvement after treatment, develop new symptoms or feeling worse at any point. History of colon polyps 11/25/202006/2022 Overview (11/25/2020): Added automatically from request for surgery [id number] Sciatica of right side 09/17/202009/25 Assessment & [...] 04/20/2020 Assessment & Plan (12/22/2019 8:10 AM SYSTEM DEVELOPMENT MANAGER): Continues to half right hip pain 6 [...] 04/20/2020 Assessment & Plan (03/07/2019 6:33 PM SYSTEM DEVELOPMENT MANAGER): Resolved with decrease in metformin to 500 mg daily. Assessment & Plan (02/20/2019 3:54 PM SYSTEM DEVELOPMENT MANAGER): Symptoms improved with decreased metformin dose. He can use Imodium prior to eating out or to control urgency on the airplane. He has noted that high carbohydrate meals 10 to increase his symptoms and I encouraged him to continue to limit simple carbohydrates. Assessment & Plan (02/07/2019 5:21 PM SYSTEM DEVELOPMENT MANAGER): Decrease metformin to 500 mg BID. Start [...] 11/28/2018. Assessment & Plan (02/07/2019 5:21 PM SYSTEM DEVELOPMENT MANAGER): Pain has resolved post repair. Assessment & [...] surgery. 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 [...] cancer Assessment & Plan (02/10/2021 12:17 PM SYSTEM DEVELOPMENT MANAGER): Had colonoscopy by Dr. Roberts on January [...] well balance using plate method found at [employer] stay well hydrated with water and walk 5 days a week Assessment & Plan (08/16/2018 3:48 PM CDT): eat three meals a day same time each day well balance using plate method found at [employer] stay well hydrated with water and walk 5 days a week Assessment & Plan (06/01/2018 4:05 PM CDT): eat three meals a day same time each day well balance using plate method found at [employer] stay well hydrated with water and walk 5 days a week Assessment & Plan (02/25/2018 1:22 PM SYSTEM DEVELOPMENT MANAGER): eat three meals a day same time each day well balance using plate method found at [employer] stay well hydrated with water and walk 5 days a week Type 2 diabetes mellitus wit h neurologic complication 12/03/2015 11/05/2020 Overview (05/26/2016): Type 2 diabetes mellitus with diabetic autonomic neuropathy, without long-term current use of insulin Assessment & Plan (02/07/2019 5:19 PM SYSTEM DEVELOPMENT MANAGER): Reviewed diabetic foot care Assessment & Plan [...] orders Assessment & Plan (02/25/2018 1:23 PM SYSTEM DEVELOPMENT MANAGER): Stable Lab pending Reviewed past medication, medical, [...] orders Assessment & Plan (04/24/2017 7:47 AM SYSTEM DEVELOPMENT MANAGER): Stable Lab pending Reviewed past medication, medical, [...] podiatry Assessment & Plan (02/25/2018 1:22 PM SYSTEM DEVELOPMENT MANAGER): Do not go barefoot Wear supportive shoes [...] podiatry Assessment & Plan (04/24/2017 7:44 AM SYSTEM DEVELOPMENT MANAGER): Do not go barefoot Wear supportive shoes [...] hemorrhoids Assessment & Plan (04/17/2020 11:01 AM SYSTEM DEVELOPMENT MANAGER): Refer to colorectal surgery. Continue stool softener [...] hemorrhoidectomy Assessment & Plan (02/10/2021 12:18 PM SYSTEM DEVELOPMENT MANAGER): Had repeat colonoscopy by Dr. Roberts on January 19, 2021. Recommend follow-up colonoscopy in 3 years Assessment & Plan (11/05/2020 12:14 PM CDT): Due for repeat colonoscopy. Assessment & Plan (04/17/2020 10:48 AM SYSTEM DEVELOPMENT MANAGER): Three year surveillance interval recommended by GI. Schedule colonoscopy. Encounters Date Type Department Care Team Description 12/01/[address] [facility] [facility] [place] [address] [place] [address] Scanning, Provider 11/17/2023 Telephone [facility] [address] [place] [address] Ronaldo Ulrich MD Medical Records [...] file Legal Sex Male 11:37 AM SYSTEM DEVELOPMENT MANAGER Gender Identity Not on file Sexual [...] 3 PM CDT COLONOSCOPY 01/19/2021 11:48 AM SYSTEM DEVELOPMENT MANAGER DIABETIC FOOT EXAM Routine 09/05/2019 CT ABDOMEN W CONTRAST Schedule Routine, Read Routine (OP Routine) 12/17/2018 3:05 PM CDT Abnormal findings on diagnostic imaging of lung Acute right-sided thoracic back pain HEPATITIS C ANTIBODY Routine 12/01/2016 12:00 AM CDT Type 2 diabetes mellitus with other circulatory complication, 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 Based on laboratory validation testing conducted at [facility], the Elyse platform relative to the [place] [...] MD LAB BLOOD ORDERABLES Fin [facility] [address] [place] [address] * (ABNORMAL) Lipid panel (09/20/2023 9:33 AM CDT) Cholesterol 117 <200 mg/dL Frank FlamsredGill José HDL 36(L) > OR = 40 mg/dL Frank FlamsredGill José Triglycerides 207(H) <150 mg/dL [facility] José Comment: If a non-fasting specimen was collected, consider repeat triglyceride testing on a fasting specimen if clinically indicated. Wilmer et al. J. of Clin. Lipidol. 2015;9:129-169. LDL 54 mg/dL (calc) Frank FlamsredGill José Comment: Reference range: <100 Desirable range <100 mg/dL for primary prevention; ?? <70 mg/dL for patients with CHD or diabetic patients with > or = 2 CHD risk factors. LDL-C is now calculated using the Yuni calculation, which is a validated novel method providing better accuracy than the Friedewald equation in the estimation of LDL-C. Nishant SS et al. IRVING. 2013;310(19): 7834-5176 (http://education.PadProof/faq/YBS047) Chol/HDL ratio 3.3 <5.0 (calc) Frank YanadoJason José Non-HDL, (LDL+VLDL) 81 <130 mg/dL (calc) [facility] Labs[facility] José Comment: For patients with diabetes plus 1 major ASCVD risk factor, treating to a non-HDL-C goal of <100 mg/dL (LDL-C of <70 mg/dL) is considered a therapeutic option. Blood 09/20/2023 9:33 AM CDT 09/20/2023 9:34 AM CDT Narrative [facility] - 09/21/2023 4:55 PM CDT FASTING:YES FASTING: YES us Ronaldo Ulrich MD LAB BLOOD ORDERABLES Fin al Result [facility] [address] [place] [address] * (ABNORMAL) Comprehensive metabolic panel (09/20/2023 9:33 AM CDT) Glucose 154(H) 65 - 99 mg/dL Frank YanadoJason José Comment: ? Fasting reference interval For someone without known diabetes, a glucose value >125 mg/dL indicates that they may have diabetes and this should be confirmed with a follow-up test. BUN 19 7 - 25 mg/dL Farnk YanadoJason José Creatinine 1.16 0.70 - 1.28 mg/dL Frank YanadoJason José eGFR 64 > OR = 60 mL/min/1.7 3m2 Frank FlamsredJason José BUN/creat ratio SEE NOTE: (calc) Frank YanadoJason José Comment: ?? Not Reported: BUN and Creatinine are within ?? reference range. ? Sodium 137 135 - 146 mmol/L [facility] FlamsredJason José Potassium, pl 4.1 3.5 - 5.3 mmol/L [facility] [facility] Flamsred dudley José Chloride 100 98 - 110 mmol/L Frank YanadoJason José CO2 28 20 - 32 mmol/L [facility] dudley José Calcium 9.3 8.6 - 10.3 mg/dL [facility] Flamsred dudley José Protein, sr 7.1 6.1 - 8.1 g/dL Frank YanadoJason José Albumin 4.1 3.6 - 5.1 g/dL Frank Yanado dudley José GLOBULIN 3.0 1.9 - 3.7 g/dL (calc) Frank Flamsred-Jason José Alb/glob ratio 1.4 1.0 - 2.5 (calc) Frank YanadoJason José Bilirubin, total 0.7 0.2 - 1.2 mg/dL [facility] FlamsredJason José Alk phos 79 35 - 144 U/L trivago dudley José AST 14 10 - 35 U/L [facility] Yanado dudley José ALT (SGPT) 14 9 - 46 U/L trivagoJason José Blood 09/20/2023 9:33 AM CDT 09/20/2023 9:34 AM CDT Narrative [facility] - 09/21/2023 4:55 PM CDT FASTING:YES FASTING: YES us Ronaldo Ulrich MD LAB BLOOD ORDERABLES Fin al Result [facility] [address] [place] [address] * Diabetic Eye Exam (09/18/2023 2:53 PM CDT) us Historical Provider HEALTH MAINTENANCE Final Result * COLONOSCOPY (01/19/2021 11:48 AM SYSTEM DEVELOPMENT MANAGER) Anatomical Region Laterality Modality Other Narrative Procedure Note Carson Roberts MD PhD - 01/19/2021 11:48 AM CST ENDOSCOPY LAB Patient Name: Ayden Santos Procedure Date: 01/19/2021 11:48AM Date of : 1945 Admit Type: Outpatient Age: 75 Gender: Male Attending MD: Carson Roberts MD,PHD Room: [facility] ENDOSCOPY ROOM 02 Note Status: Finalized [...] The scope was passed under direct vision.The [id number] was introduced through the anusand advanced to [...] business hours - Please call theNurse Coordinator: [phone]. After hours, evening, nights, weekends and holidays- Please call the hospital hydraulic pile hammer operator at and ask for the GI fellow parking station attendant. Attending Participation: I personally performed the entire procedure. Electronically signed by Carson Roberts MD. Carson Roberts MD, PHD 01/19/2021 12:22:26 PM Number of Addenda: 0 Note Initiated On: 01/19/2021 11:48 AM Carson Roberts MD PhD ENDOSCOPY PROCEDURES Anya l Result * Diabetic Foot Exam (09/05/2019) Historical Provider [facility] MAINTENANCE Edited Result - Final * [...] signed by: Jim Mccann M.D. Xena Valencia SCOREBOARD OPERATOR IMG CT PROCEDURES Fi nal Result * Hepatitis C antibody (12/01/2016 12:00 AM CDT) Hep C Ab <0.1 0.0 - 0.9 s/co ratio [facility] - 01 Comment: ?Negative: ? < 0.8 ? Indeterminate: 0.8 - 0.9 ?Positive: ? > 0.9 The CDC recommends that a positive HCV antibody result be followed up with a HCV Nucleic Acid Amplification test (432713). Blood specimen (specimen) 12/01/2016 12/01/2016 Narrative [facility] - 12/02/2016 11:14 AM CDT Performed at: ??01 - [facility] [address] ??[id number] Manual Tester: Woodrow Michel PhD, Phone: ??[phone] Xena Valencia NP LAB MICROBIOLOGY - G ENERAL ORDERABLES Final Result [facility] - 01 from Last 3 Months or Most Recently Relevant to Health Maintenance Insurance COUNT INCLUDES THE [facility] MEDICARE MEDICARE SOLUTIONS [facility] MEDIC[facility] Address: [address] [address] [place] [address] COUNT INCLUDES THE [facility] MEDICARE INCLUDES THE [facility] MEDICARE Address: [address] [place] [address] Advance Directives For more information, please contact: [phone] * Full Code (Latest Code Status on File) Date Activated Date Inactivated Comments 01/19/2021 9:58 AM 01/19/2021 5:23 PM Care Teams Electrical Electronics Engineers Relationship Specialty Start Date End Date Ronaldo Ulrich MD [address] [place] [address] PCP - General Internal Medicine 01/18/21
--- OUTSIDE RECORDS SUMMARY | 2024-02-10 05:34 | XMS_ITS | Encounter Summary ---
Author Organization [facility] Address [address] [place] [address] Care Team Providers Care Medicare Nurse Name Role Phone Ronaldo Ulrich MD [...] st Contact Info) Description 03/22/2023 10:00 AM SPECIAL ASSEMBLIES SUPERVISOR Office Visit [facility] Primary Care [address] [place] [id number] Ronaldo Ulrich MD [address] [place] [address] Type 2 diabetes mellitus with other circulatory complication, with long-term current use of insulin (HCC) (Primary Dx); Hypertensive heart disease without heart failure; 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 2 diabetes mellitus (CMS/HCC) (HCC); Coronary artery disease involving [place] coronary artery of [place] heart without angina pectoris; History of colon polyps; Atherosclerosis of aorta (CMS/HCC) (HCC); Obstructive sleep apnea; 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 mellitus (CMS/HCC) (HCC); Benign prostatic hyperplasia without lower urinary tract symptoms; Diabetic nephropathy associated with type 2 diabetes mellitus ([facility]); Class 2 severe obesity due to excess calories with serious comorbidity and body mass index (BMI) of 37.0 to 37.9 in adult ([facility]); Herpes simplex; Acute bronchitis, unspecified organism [...] on file Legal Sex Male 11:37 AM SPECIAL ASSEMBLIES SUPERVISOR Gender Identity Not on file Sexual Orientation Not on file 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 Not on file documented as of this encounter Last Filed Vital Signs Vital Sign Reading Time Taken Comments Blood Pressure 136/78 03/22/2023 10:08 AM SPECIAL ASSEMBLIES SUPERVISOR Pulse 87 03/22/2023 10:08 AM SPECIAL ASSEMBLIES SUPERVISOR Temperature 36.3 ??C (97.3 ??F) 03/22/2023 1 0:08 AM SPECIAL ASSEMBLIES SUPERVISOR Respiratory Rate 18 03/22/2023 10:0 8 AM SPECIAL ASSEMBLIES SUPERVISOR Oxygen Saturation 92% 03/22/2023 10: 08 AM SPECIAL ASSEMBLIES SUPERVISOR Inhaled Oxygen Concentration - - Weight 119.9 kg (264 lb 4.8 oz) 024 10:08 AM SPECIAL ASSEMBLIES SUPERVISOR Height 177.8 cm (5' 10 ) 03/22/2023 10: 08 AM SPECIAL ASSEMBLIES SUPERVISOR Body Mass Index 37.92 03/22/2023 10:08 AM SPECIAL ASSEMBLIES SUPERVISOR documented in this encounter Ordered Prescriptions Prescription Sig Dispense Quantity Refills Last Filled Start Date End Date simvastatin (ZOCOR) 40 mg tabletIndications: 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) Take 1 tablet (40 mg total) by mouth nightly 90 tablet 1 03/22/2023 4 metoprolol tartrate (LOPRESSOR) 50 mg immediate release tabletIndications: Hypertensive heart disease without heart failure,Coronary artery disease involving [place] coronary artery of [place] heart without angina pectoris Take 2 tablets [...] 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 2 diabetes mellitus ([facility]) ([facility]) Assessment & Plan: Well controlled on simvastatin. Triglycerides improving. Coronary artery disease involving [place] coronary artery of [place] heart without angina pectoris Assessment & Plan: Stable on aspirin, simvastatin, metoprolol, and Farxiga follows with Dr. Jiménez History of colon polyps Assessment & Plan: Due for repeat colonoscopy in December of 2023 Atherosclerosis of aorta ([facility]) ([facility]) Assessment & Plan: Stable on simvastatin and aspirin Obstructive sleep apnea Assessment & Plan: Uses CPAP nightly and benefits from it 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 mellitus ([facility]) ([facility]) Assessment & Plan: Hemoglobin A1c is stable. Continue metformin, Humalog, Farxiga, and Xultophy Benign prostatic hyperplasia without lower urinary tract symptoms Assessment & Plan: Stable on finasteride Diabetic nephropathy associated with type 2 diabetes mellitus ([facility]) Assessment & Plan: Elevated urine microalbumin with preserved renal function. Continue irbesartan hydrochlorothiazide at and Farxiga Class 2 severe obesity due to excess calories with serious comorbidity and body mass index (BMI) of37.0 to 37.9 in adult ([facility]) Assessment & Plan: BMI Follow-up includes: [...] lunch. 270 tablet [address] [facility] C-Pap simvastatin (ZOCOR) 40 mg tablet TAKE 1 TABLET BY MOUTH EVERY DAY AT NIGHT 90 tablet 1 tamsulosin (FLOMAX) 0.4 mg extended release capsule Take 1 capsule (0.4 mg total) by mouth nightly vit C,A-Fd-dubbp-lutein-zeaxan 250-90-40-1 mg capsule Take 1 capsule by mouth daily Xultophy 100/3.6 100 unit-3.6 mg /mL (3 mL) insulin pen pen INJECT 50 UNITS INTO THE SKIN DAILY 45 mL 1 aspirin 81 mg chewable tablet Take 1 tablet (81 mg total) by mouth daily (Patient not taking: Reported on 03/22/2023) 30 tablet [address] [facility] As directed daily (Patient [...] person, place, and time. Ronaldo Ulrich MD IAL ASSEMBLIES SUPERVISOR documented in this encounter Miscellaneous Notes * Assessment & Plan Note - Ronaldo Ulrich MD - 03/20/2023 1:35 PM SPECIAL ASSEMBLIES SUPERVISOR Associated Problem(s): Herpes simplex Stable on acyclovir IAL ASSEMBLIES SUPERVISOR * Assessment & Plan Note - Ronaldo Ulrich MD - 03/20/2023 1:35 PM SPECIAL ASSEMBLIES SUPERVISOR Associated Problem(s): Class 2 severe obesity due to excess calories with serious comorbidity and body mass index (BMI) of 37.0 to 37.9 in adult (HCC) BMI Follow-up includes: exercise counseling. IAL ASSEMBLIES SUPERVISOR * Assessment & Plan Note - Ronaldo Ulrich MD - 03/20/2023 1:35 PM SPECIAL ASSEMBLIES SUPERVISOR Associated Problem(s): Diabetic nephropathy associated with type 2 diabetes mellitus (HCC) Elevated urine microalbumin with preserved renal function. Continue irbesartan hydrochlorothiazide at and Farxiga IAL ASSEMBLIES SUPERVISOR * Assessment & Plan Note - Ronaldo Ulrich MD - 03/20/2023 1:34 PM SPECIAL ASSEMBLIES SUPERVISOR Associated Problem(s): Benign prostatic hyperplasia without lower urinary tract symptoms Stable on finasteride IAL ASSEMBLIES SUPERVISOR * Assessment & Plan Note - Ronaldo Ulrich MD - 03/20/2023 1:34 PM SPECIAL ASSEMBLIES SUPERVISOR Associated Problem(s): 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 mellitus (CMS/HCC) ([facility]) Hemoglobin A1c is stable. Continue metformin, Humalog, Farxiga, and Xultophy IAL ASSEMBLIES SUPERVISOR * Assessment & Plan Note - Ronaldo Ulrich MD - 03/20/2023 1:34 PM SPECIAL ASSEMBLIES SUPERVISOR Associated Problem(s): Obstructive sleep apnea Uses CPAP nightly and benefits from it IAL ASSEMBLIES SUPERVISOR * Assessment & Plan Note - Ronaldo Ulrich MD - 03/20/2023 1:34 PM SPECIAL ASSEMBLIES SUPERVISOR Associated Problem(s): Atherosclerosis of aorta (CMS/HCC) ([facility]) Stable on simvastatin and aspirin IAL ASSEMBLIES SUPERVISOR * Assessment & Plan Note - Ronaldo Ulrich MD - 03/20/2023 1:34 PM SPECIAL ASSEMBLIES SUPERVISOR Associated Problem(s): History of colon polyps Due for repeat colonoscopy in December of 2023 IAL ASSEMBLIES SUPERVISOR * Assessment & Plan Note - Ronaldo Ulrich MD - 03/20/2023 1:33 PM SPECIAL ASSEMBLIES SUPERVISOR Associated Problem(s): Coronary artery disease involving [place] coronary artery of [place] heart without angina pectoris Stable on aspirin, simvastatin, metoprolol, and Farxiga follows with Dr. Jiménez IAL ASSEMBLIES SUPERVISOR * Assessment & Plan Note - Ronaldo Ulrich MD - 03/20/2023 1:33 PM SPECIAL ASSEMBLIES SUPERVISOR Associated Problem(s): 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 2 diabetes mellitus (CMS/HCC) ([facility]) Well controlled on simvastatin. Triglycerides improving. IAL ASSEMBLIES SUPERVISOR * Assessment & Plan Note - Ronaldo Ulrich MD - 03/20/2023 1:33 PM SPECIAL ASSEMBLIES SUPERVISOR Associated Problem(s): Hypertensive heart disease without heart failure Well controlled on metoprolol and irbesartan hydrochlorothiazide IAL ASSEMBLIES SUPERVISOR * Assessment & Plan Note - Ronaldo Ulrich MD - 03/20/2023 1:32 PM SPECIAL ASSEMBLIES SUPERVISOR Associated Problem(s): Type 2 diabetes mellitus with circulatory disorder (CMS/HCC) ([facility]) Complicated by hypertension coronary artery disease. Hemoglobin A1c continues to improve. Continue Humalog, Xultophy, Farxiga, and metformin. IAL ASSEMBLIES SUPERVISOR documented in this encounter Plan of [...] Creatinine Ratio, Urine (09/20/2023 9:33 AM CDT) [facility] Creatinine, ur 50 20 - 320 mg/dL [...] URINE ORDERABLES Fin al Result [facility] [address] [place] [id number] * (ABNORMAL) Lipid panel (09/20/2023 9:33 AM CDT) Cholesterol 117 <200 mg/dL Frank Levo LeagueJason dudley José HDL 36(L) > OR = 40 mg/dL Frank Jammin JavaGill José Triglycerides 207(H) <150 mg/dL Frank Jammin JavaGill José Comment: If a non-fasting specimen was [...] LDL-C. Nishant GHOTRA et al. IRVING. 2013;310(19): 6360-1241 (http://education.MarketGid/faq/HRA040) Chol/HDL ratio 3.3 <5.0 (calc) Frank MurrietaGeogoerJason dudley José Non-HDL, (LDL+VLDL) 81 <130 mg/dL (calc) Frank Levo LeagueJason dudley José Comment: For patients with diabetes plus 1 major ASCVD risk factor, treating to a non-HDL-C goal of <100 mg/dL (LDL-C of <70 mg/dL) is considered a therapeutic option. Blood 09/20/2023 9:33 AM CDT 09/20/2023 9:34 AM CDT Narrative [facility] - 09/21/2023 4:55 PM CDT FASTING:YES FASTING: YES us Ronaldo Ulrich MD LAB BLOOD ORDERABLES Fin al Result [facility] [address] [place] [address] * (ABNORMAL) Hemoglobin A1c (09/20/2023 9:33 AM [...] ? This test was performed on the Elyes christian c503 platform. Effective 05/08/23, a change in test platforms from the [employer] to the Elyse christian c503 may have shifted HbA1c results compared to historical results. Based on laboratory validation testing conducted at [employer], the Elyse platform relative to the [place]ley [...] MD LAB BLOOD ORDERABLES Fin al Result [facility] [address] [place] [address] * (ABNORMAL) Comprehensive metabolic panel (09/20/2023 9:33 AM CDT) [facility] Glucose 154(H) 65 - 99 mg/dL AngelfishJason José Comment: ? Fasting reference interval For someone without known diabetes, a glucose value >125 mg/dL indicates that they may have diabetes and this should be confirmed with a follow-up test. BUN 19 7 - 25 mg/dL AngelfishJason José Creatinine 1.16 0.70 - 1.28 mg/dL AngelfishJason José eGFR 64 > OR = 60 mL/min/1.7 3m2 AngelfishJason José BUN/creat ratio SEE NOTE: (calc) Jinn-Jason José Comment: ?? Not Reported: BUN and Creatinine are within ?? reference range. ? Sodium 137 135 - 146 mmol/L Frank Jammin Java-Jason José Potassium, pl 4.1 3.5 - 5.3 mmol/L Frank Jammin Java-Jason José Chloride 100 98 - 110 mmol/L Frank Murrieta-Jason José CO2 28 20 - 32 mmol/L Frank Murrieta-Jason José Calcium 9.3 8.6 - 10.3 mg/dL Frank Jammin Java-Jason José Protein, sr 7.1 6.1 - 8.1 g/dL Frank Jammin Java-Jason José Albumin 4.1 3.6 - 5.1 g/dL Frank Jammin Java-Jason José GLOBULIN 3.0 1.9 - 3.7 g/dL (calc) Frank Murrieta-Jason José Alb/glob ratio 1.4 1.0 - 2.5 (calc) AngelfishJason José Bilirubin, total 0.7 0.2 - 1.2 mg/dL Frank Jammin JavaJason José Alk phos 79 35 - 144 U/L Frank Levo LeagueJason José AST 14 10 - 35 U/L AngelfishJason José ALT (SGPT) 14 9 - 46 U/L AngelfishJason José Blood 09/20/2023 9:33 AM CDT 09/20/2023 9:34 AM CDT Narrative [facility] - 09/21/2023 4:55 PM CDT FASTING:YES FASTING: YES us Ronaldo Ulrich MD LAB BLOOD ORDERABLES Fin al Result [facility] [address] [place] [address] documented in this encounter Visit Diagnoses Diagnosis Type 2 diabetes mellitus with other circulatory complication, with long-term current use of insulin (HCC)- Primary Hypertensive heart disease without heart failure Unspecified hypertensive heart disease without heart failure 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 2 diabetes mellitus (CMS/HCC) (HCC) Coronary artery disease involving [place] coronary artery of [place] heart without angina pectoris History of colon polyps Atherosclerosis of aorta (CMS/HCC) (HCC) Atherosclerosis of aorta Obstructive sleep apnea Obstructive sleep apnea (adult) (pediatric) 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 mellitus (CMS/HCC) (HCC) Benign prostatic hyperplasia without lower urinary tract symptoms Diabetic nephropathy associated with type 2 diabetes mellitus ([facility]) Class 2 severe obesity due to [...] disease without heart failure,Coronary artery disease involving [place] coronary artery of [place] heart without angina pectoris Take 2 tablets [...] 09/27/2023 added in this encounter Care Teams Medicare Nurse Relationship Specialty Start Date End Date Ronaldo Ulrich MD [address] [place] [address] PCP - General Internal Medicine 01/18/21 documented as of this encounter
--- OUTSIDE RECORDS SUMMARY | 2024-02-10 05:34 | XMS_ITS | Encounter Summary ---
Author Organization [facility] Healthcare Address [address] [place] [address] Care Team Providers Care Compound Coating Machine Offbearer Name Role Phone Ronaldo Ulrich MD Primary [...] Description 05/30/2023 10:00 AM CDT Office Visit [facility] Primary Care [address] [place] [address] Ronaldo Ulrich MD [address] [place], [place] [id number] Urine frequency (Primary Dx); Chronic right-sided low [...] on file Legal Sex Male 11:37 AM PLASTICS FABRICATOR Gender Identity Not on file Sexual Orientation [...] lunch. 270 tablet 1 miscellaneous medical supply [facility] C-Pap simvastatin (ZOCOR) 40 mg tablet Take 1 tablet (40 mg total) by mouth nightly 90 tablet 1 tamsulosin (FLOMAX) 0.4 mg extended release capsule Take 1 capsule (0.4 mg total) by mouth nightly vit C,O-Dp-dyzfz-lutein-zeaxan 250-90-40-1 mg capsule Take 1 capsule by [...] Large Ketones, ur, POC Negative Negative Specific Garrett, POC 1.020 1.003 - 1.030 Blood, ur, POC Trace (A) Negative pH, ur, POC 5.5 5.0 - 8.0 Protein, ur, POC 100. (A) Negative Urobilinogen, urine, POC 0.2 0.2 - 1.0 mg/dL Nitrite, ur, POC Negative Negative Leukocytes, ur, POC Negative Negative Lot Number [id number] Physical Exam: BP 136/64 (BP Location: Left [...] Large Ketones, ur, POC Negative Negative Specific Garrett, POC 1.020 1.003 - 1.030 Blood, ur, POC Trace(A) Negative pH, ur, POC 5.5 5.0 - 8.0 Protein, ur, POC 100.(A) Negative Urobilinogen, urine, POC 0.2 0.2 - 1.0 mg/dL Nitrite, ur, POC Negative Negative Leukocytes, ur, POC Negative Negative Lot Number [id number] Urine 05/30/2023 10:2 0 AM CDT Ronaldo Ulrich MD POINT OF CARE TEST ORDER NKIKIE Final Result documented in this encounter Visit Diagnoses Diagnosis Urine frequency- Primary Chronic right-sided low back pain without sciatica Class 2 severe obesity due to excess calories with serious comorbidity and body mass index (BMI) of 37.0 to 37.9 in adult (HCC) documented in this encounter Care Teams Compound Coating Machine Offbearer Relationship Specialty Start Date End Date Ronaldo Ulrich MD [address] [place] [address] PCP - General Internal Medicine 01/18/21 documented as of this encounter
--- OUTSIDE RECORDS SUMMARY | 2024-02-10 05:35 | XMS_ITS | Encounter Summary ---
Author Organization [facility] Address [address] [address] Care Team Providers Care Deli Cutter Slicer Name Role Phone Ronaldo Ulrich MD Primary Care Provider + Reason for Referral * Consultation (Routine) - Closed Specialty Diagnoses / Procedures Referred By Contaida t Referred To Contact Orthopedic Surgery Diagnoses Acquired trigger finger of left ring finger Ronaldo Ulrich MD [address] [place] [address] Phone: tel: fax: Nuria Thapa, OMARI [address] [place] [address] Phone: tel: fax: Referral ID Status Reason Start Date Expiration Date V isits Requested Visits Authorized [id number] Closed Specialty Services Required 02/11/2021 03/13/2022 1 1 Question Answer Please select the performing region: [facility] [[id number]] Please select the performing department: [facility] [[id number]] # of visits: 1 LEADER Reason for Visit * Reason Comments Follow-up [...] st Contact Info) Description 02/11/2021 10:00 AM GANG LEADER Office Visit [facility] Primary Care [address] [place] [address] Ronaldo Ulrich MD [address] [place] [address] Type 2 diabetes mellitus with circulatory disorder [...] aorta (CMS/HCC) (HCC); Coronary artery disease involving gakona coronary artery of gakona heart without angina pectoris; Benign prostatic hyperplasia [...] on file Legal Sex Male 11:37 AM GANG LEADER Gender Identity Not on file Sexual Orientation Not on file 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 Not on file documented as of this encounter Last Filed Vital Signs Vital Sign Reading Time Taken Comments Blood Pressure 132/78 02/11/2021 10:56 AM GANG LEADER Pulse 88 02/11/2021 10:15 AM GANG LEADER Temperature 35.7 ??C (96.3 ??F) 02/11/2021 10:[address] Respiratory Rate 16 02/11/2021 10:15 AM GANG LEADER Oxygen Saturation 94% 02/11/2021 10:15 AM GANG LEADER Inhaled Oxygen Concentration - - Weight 120.2 kg (265 lb) 02/11/2021 10:15 AM GANG LEADER Height 180.3 cm (5' 11 ) 02/11/2021 10:15 AM GANG LEADER Body Mass Index 36.96 02/11/2021 10:15 AM GANG LEADER documented in this encounter Ordered Prescriptions Prescription [...] due to type 2 diabetes mellitus (CMS/HCC) ([facility]) Assessment & Plan: Well controlled on simvastatin Orders: - Comprehensive metabolic panel; Future - Lipid panel; Future Class 2 severe obesity due to excess calories with serious comorbidity and body mass index (BMI) of37.0 to 37.9 in adult ([facility]) Assessment & Plan: BMI Follow-up includes: exercise counseling. Colon polyps Assessment & Plan: Had repeat colonoscopy by Dr. Roberts on January 19, 2021. Recommend follow-up colonoscopy in 3 years 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 mellitus ([facility]) ([facility]) Assessment & Plan: Hemoglobin A1c is slowly improving on metformin, Humalog, and Xultophy. Neuropathy controlled with gabapentin Obstructive sleep apnea Assessment & Plan: Uses CPAP nightly and benefits from it Atherosclerosis of aorta ([facility]) ([facility]) Assessment & Plan: Stable on simvastatin and aspirin Coronary artery disease involving gakona coronary artery of gakona heart without angina pectoris Assessment & Plan: Stable on aspirin, simvastatin, metoprolol, and irbesartan hydrochlorothiazide. Follows with Dr. Jiménez Benign prostatic hyperplasia without lower urinary tract symptoms Assessment & Plan: Stable on finasteride Diabetic nephropathy associated with type 2 diabetes mellitus ([facility]) Screening PSA (prostate specific antigen) [...] AT NIGHT 90 tablet 3 ??? vit C,V-Oq-uthms-lutein-zeaxan 250-90-40-1 mg capsule Take 1 capsule by [...] 162 70 - 199 mg/dL POC Performer [id number] POC Device Number [id number] POCT glucose Collection Time: 01/19/21 12:41 PM Result Value Ref Range Glucose, POC 156 70 - 199 mg/dL POC Performer [id number] POC Device Number [id number] Comprehensive metabolic panel Collection Time: 02/08/21 9:25 AM Result Value Ref Range Glucose 183 (H) 65 - 99 mg/dL BUN 18 7 - 25 mg/dL Creatinine 1.05 0.70 - 1.18 mg/dL eGFR NON-AFR. ZIMBABWEAN 69 > OR = 60 mL/min/1.73m2 EGFR [...] person, place, and time. Ronaldo Ulrich MD LEADER documented in this encounter Miscellaneous Notes * Assessment & Plan Note - Ronaldo Ulrich MD - 02/11/2021 10:47 AM GANG LEADER Associated Problem(s): Trigger finger, left ring finger (Resolved 09/26/2023) Refer to hand specialist LEADER * Assessment & Plan Note - Ronaldo Ulrich MD - 02/10/2021 12:20 PM GANG LEADER Associated Problem(s): Benign prostatic hyperplasia without lower urinary tract symptoms Stable on finasteride LEADER * Assessment & Plan Note - Ronaldo Ulrich MD - 02/10/2021 12:19 PM GANG LEADER Associated Problem(s): Coronary artery disease involving gakona coronary artery of gakona heart without angina pectoris Stable on aspirin, simvastatin, metoprolol, and irbesartan hydrochlorothiazide. Follows with Dr. Jiménez LEADER * Assessment & Plan Note - Ronaldo Ulrich MD - 02/10/2021 12:19 PM GANG LEADER Associated Problem(s): Atherosclerosis of aorta (CMS/HCC) ([facility]) Stable on simvastatin and aspirin LEADER LEADER * Assessment & Plan Note - Ronaldo Ulrich MD - 02/10/2021 12:19 PM GANG LEADER Associated Problem(s): Obstructive sleep apnea Uses CPAP nightly and benefits from it LEADER * Assessment & Plan Note - Ronaldo Ulrich MD - 02/10/2021 12:18 PM GANG LEADER Associated Problem(s): 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 mellitus (CMS/HCC) (HCC) Hemoglobin A1c is slowly improving on metformin, Humalog, and Xultophy. Neuropathy controlled with gabapentin LEADER * Assessment & Plan Note - Ronaldo Ulrich MD - 02/10/2021 12:18 PM GANG LEADER Associated Problem(s): Colon polyps (Resolved 08/19/2021) Had repeat colonoscopy by Dr. Roberts on January 19, 2021. Recommend follow-up colonoscopy in 3 years LEADER * Assessment & Plan Note - Ronaldo Ulrich MD - 02/10/2021 12:17 PM GANG LEADER Associated Problem(s): Family history of colon cancer (Resolved 08/19/2021) Had colonoscopy by Dr. Roberts on January 19, 2021. Recommend follow-up colonoscopy in 3 years. LEADER * Assessment & Plan Note - Ronaldo Ulrich MD - 02/10/2021 12:16 PM GANG LEADER Associated Problem(s): Class 2 severe obesity due to excess calories with serious comorbidity and body mass index (BMI) of 37.0 to 37.9 in adult ([facility]) BMI Follow-up includes: exercise counseling. LEADER * Assessment & Plan Note - Ronaldo Ulrich MD - 02/10/2021 12:15 PM GANG LEADER Associated Problem(s): 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 2 diabetes mellitus (CMS/HCC) ([facility]) Well controlled on simvastatin LEADER * Assessment & Plan Note - Ronaldo Ulrich MD - 02/10/2021 12:15 PM GANG LEADER Associated Problem(s): Hypertensive heart disease without heart failure Well controlled on metoprolol and irbesartan hydrochlorothiazide LEADER * Assessment & Plan Note - Ronaldo Ulrich MD - 02/10/2021 12:14 PM GANG LEADER Associated Problem(s): Type 2 diabetes mellitus with circulatory disorder (CMS/HCC) ([facility]) Complicated by hypertension and coronary artery disease. Hemoglobin A1c is slightly improved, but still elevated. Continue Humalog, Xultophy, and metformin. Would try Farxiga 5 mg once a day to help lower sugars and renal and heart protection. LEADER LEADER documented in this encounter Plan of Treatment [...] 2 diabetes mellitus with circulatory disorder (CMS/HCC) ([facility]) HEMOGLOBIN A1C Routine 08/11/2021 12:59 PM CDT Type 2 diabetes mellitus with circulatory disorder ([facility]/HCC) ([facility]) LIPID PANEL Routine 08/11/2021 12:59 PM CDT 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 2 diabetes mellitus ([facility]/HCC) ([facility]) COMPREHENSIVE METABOLIC PANEL Routine 08/11/2021 12:59 PM CDT Hypertensive heart disease without heart failure 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 2 diabetes mellitus ([facility]/HCC) ([facility]) documented in this encounter Results * PSA screen (08/11/2021 12:59 PM CDT) PSA 1.48 < OR = 4.00 ng/mL [facility] Comment: The total PSA value from this assay system is standardized against the WHO standard. The test result will be approximately 20% lower when compared to the equimolar-standardized total PSA (Rogelio [place]). Comparison of serial PSA results should be [...] ORDERABLES Fin al Result Performing Organization Address [facility] Phone Number [facility] [address] [place] [address] * (ABNORMAL) Albumin Creatinine Ratio, Urine (08/11/2021 [...] ORDERABLES Fin al Result Performing Organization Address [facility] de Phone Number [facility] [address] [place] [address] * (ABNORMAL) Lipid panel (08/11/2021 12:59 PM [...] LDL-C. Nishant GHOTRA et al. IRVING. 2013;310(19): 4412-7859 (http://education.AppNexus/faq/AJC701) Chol/HDL ratio 3.2 <5.0 (calc) [facility] [...] ORDERABLES Fin al Result [facility] [address] [place] [address] * (ABNORMAL) Hemoglobin A1c (08/11/2021 12:59 PM CDT) Hgb A1C 8.3(H) <5.7 % of total Hgb [facility] Comment: For someone without known [...] MD LAB BLOOD ORDERABLES Fin al Result [facility] [address] [place] [address] * (ABNORMAL) Comprehensive metabolic panel (08/11/2021 12:59 [...] approximately 13% higher for people identified as -[place]. eGFR NON-AFR. ZIMBABWEAN 57(L) > OR = 60 mL/min/1. 73m2 [...] BLOOD ORDERABLES Fin al Result [facility] [address] [place] [address] documented in this encounter Visit Diagnoses Diagnosis [...] Atherosclerosis of aorta Coronary artery disease involving gakona coronary artery of gakona heart without angina pectoris Benign prostatic hyperplasia without lower urinary tract symptoms Diabetic nephropathy associated with type 2 diabetes mellitus (HCC) Screening PSA (prostate specific antigen) Special screening for malignant neoplasm of prostate Acquired trigger finger of left ring finger documented in this encounter Care Teams Deli Cutter Slicer Relationship Specialty Start Date End Date Ronaldo Ulrich MD [address] [place] [address] PCP - General Internal Medicine 01/18/21 documented as of this encounter
--- OUTSIDE RECORDS SUMMARY | 2024-02-10 05:35 | XMS_ITS | Encounter Summary ---
Author Organization [facility] Address [address] [address] Care Team Providers Care Global President Name Role Phone Ronaldo Ulrich MD Primary Care Provider + Encounter Details Date Type Department Care Team (Late st Contact Info) Description 08/20/2021 Telephone [facility] Primary Care [address] [place] [address] Ronaldo Ulrich MD [address] [place] [address] Social History Tobacco Use Types [...] on file Legal Sex Male 11:37 AM DNA ANALYST Gender Identity Not on file Sexual [...] documented as of this encounter Care Teams Global President Relationship Specialty Start Date End Date Ronaldo Ulrich MD [address] [place] [address] PCP - General Internal Medicine 01/18/21 documented as of this encounter
--- OUTSIDE RECORDS SUMMARY | 2024-02-10 05:35 | XMS_ITS | Encounter Summary ---
Author Organization [facility] Address [address] [facility] [address] [place] [address] Care Team Providers Care Railway Equipment Operator Name Role Phone Ronaldo Ulrich MD Primary Care Provider + Reason for Visit * Reason Onset Date Comments upper chest pain 05/12/2021 Encounter Details Date Type Department Care Team (Late st Contact Info) Description 05/12/2021 Telephone [facility] Cardiology [address] [facility] [address] [place] [address] Farrukh Jiménez MD [address] [place] [address] [address] [place] [address] upper chest pain Social History [...] on file Legal Sex 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
--- OUTSIDE RECORDS SUMMARY | 2024-02-10 05:35 | XMS_ITS | Encounter Summary ---
Author Organization [facility] Address [address] [facility] [address] [place] [address] Care Team Providers Care Relay Man Name Role Phone Ronaldo Ulrich MD Primary Care Provider + Reason for Visit * Reason Onset Date Comments Covid-19 Home Monitoring 07/25/2021 Enrollm ent Encounter Details Date Type Department Care Team (Late st Contact Info) Description 07/25/2021 Telephone [facility] Accountable Care Organization [address] [place] [address] Summer Carrillo, ANASTASIIA [address] [place] [address] [address] [place] [address] Covid-19 Home Monitoring (Enrollment) Social History Tobacco Use Types Packs/Day Years [...] on file Legal Sex Male 11:37 AM 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[employer]IP Gender Identity Not on file Sexual Orientation Not on file 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 : Yes Diarrhea Details:: Same This patient has enrolled in the PHONE ONLY version of COVID-19 Home Monitoring Program. COVID-19 Symptom questionnaire was completed today. Symptoms were addressed to be Mild. Escalation was not needed. Next Program Call Due: 07/26/2021 This patient was identified as a candidate for the [facility]/ COVID home monitoring program. The patient was contacted via phone for enrollment in the program. The patient has declined to participate in the automated MyChart Film Sound Coordinator Program, but has verbally agreed to the Phone Only Home Monitoring Program, which includes being contacted for a daily phone assessment by a [facility]/ staff member. The patient was informed that members of the healthcare team will contact them depending on the symptoms that they report. This call could come from a variety of phone numbers depending on which member of the healthcare team is contacting the patient, and the patient should be prepared to answer calls from a variety of phone numbers. If the patient is unable to be reached for 3 days, they will be disenrolled from the program. Patient is aware that we will try and reach them at every available phone number, including HIPAA contacts. After review, the patient agreed to participate. The ???COVID19 Home Monitoring?? order was placedto enroll the patient in the phone only version of the program. documented in this encounter Plan of Treatment Not on file documented as of this encounter Visit Diagnoses Not on filedocumented in this encounter Additional Health Concerns Infection Onset Date Last Indicated Resolved Time COVID19 07/24/2021 07/24/2021 08/03/2021 3:05 AM CDT documented as of this encounter Care Teams Relay Man Relationship Specialty Start Date End Date Ronaldo Ulrich MD [address] [place] [address] PCP - General Internal Medicine 01/18/21 documented as of this encounter
--- OUTSIDE RECORDS SUMMARY | 2024-02-10 05:35 | XMS_ITS | Encounter Summary ---
Author Organization [facility] Address [address] 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
--- OUTSIDE RECORDS SUMMARY | 2024-02-10 05:35 | XMS_ITS | Encounter Summary ---
Author Organization [facility] Address [address] [address] Care Team Providers Care Manager Sql Name Role Phone Ronaldo Ulrich MD Primary [...] Description 11/09/2020 9:00 AM CDT Office Visit [facility] Primary Care [address] [place] [id number] Ronaldo Ulrich MD [address] [place], [place] [id number] Type 2 diabetes mellitus with circulatory disorder (CMS/HCC) (HCC) (Primary Dx); 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 mellitus (CMS/HCC) (HCC); 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 2 diabetes mellitus (CMS/HCC) (HCC); Hypertensive heart disease without heart failure; Coronary artery disease involving [place] coronary artery of [place] heart without angina pectoris; Atherosclerosis of aorta [...] file Legal Sex Male 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 Hemoglobin A1c is slowly improving. Continue Humalog, Xultophy, and metformin Orders: - Hemoglobin A1c; Future 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 mellitus ([facility]) ([facility]) Assessment & Plan: Hemoglobin A1c slowly improving on metformin and Humalog. Started on gabapentin at bedtime in August for worsening neuropathy. Orders: - Hemoglobin A1c; Future 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 2 diabetes mellitus ([facility]) ([facility]) Assessment & Plan: Well controlled on simvastatin [...] metabolic panel; Future Coronary artery disease involving [place] coronary artery of [place] heart without angina pectoris Assessment & Plan: Stable on aspirin, simvastatin, metoprolol, and irbesartan hydrochlorothiazide. Follows with Dr. Jiménez Orders: - metoprolol tartrate (LOPRESSOR) 50 mg immediate release tablet; TAKE 2 TABLETS BY MOUTH AT LUNCH AND 1 TABLET AT BEDTIME Atherosclerosis of aorta ([facility]) ([facility]) Assessment & Plan: Stable on simvastatin and aspirin Colon polyps Assessment & Plan: Due for repeat colonoscopy. Morbid obesity with BMI of 45.0-49.9, adult ([facility]) ([facility]) Assessment & Plan: BMI Follow-up includes: exercise [...] AT NIGHT 90 tablet 3 ??? vit C,H-Ng-qbpax-lutein-zeaxan 250-90-40-1 mg capsule Take 1 capsule by [...] 37.0 to 37.9 in adult ([facility]) BMI Follow-up includes: exercise counseling. * Assessment & Plan Note - Ronaldo Ulrich MD - 11/05/2020 12:14 PM CDT Associated Problem(s): Colon polyps (Resolved 08/19/2021) Due for repeat colonoscopy. * Assessment & Plan Note - Ronaldo Ulrich MD - 11/05/2020 12:13 PM CDT Associated Problem(s): Atherosclerosis of aorta (CMS/HCC) ([facility]) Stable on simvastatin and aspirin * Assessment & Plan Note - Ronaldo Ulrich MD - 11/05/2020 12:13 PM CDT Associated Problem(s): Coronary artery disease involving [place] coronary artery of [place] heart without angina pectoris Stable on aspirin, [...] type 2 diabetes mellitus (CMS/HCC) ([facility]) Well controlled on simvastatin * Assessment & Plan Note - Ronaldo Ulrich MD - 11/05/2020 12:11 PM CDT Associated Problem(s): 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 mellitus (CMS/HCC) ([facility]) Hemoglobin A1c slowly improving on metformin and Humalog. Started on gabapentin at bedtime in August for worsening neuropathy. * Assessment & Plan Note - Ronaldo Ulrich MD - 11/05/2020 12:10 PM CDT Associated Problem(s): Type 2 diabetes mellitus with circulatory disorder (CMS/HCC) ([facility]) Complicated by HTN, CAD. Hemoglobin A1c is slowly improving. Continue Humalog, Xultophy, and metformin documented in this encounter Plan of Treatment Not on file documented as of this encounter Procedures Procedure Name Priority Date/Time Associated Diagnosis Comments HEMOGLOBIN A1C Routine 02/08/2021 9:25 AM CUT FILE CLERK Type 2 diabetes mellitus with circulatory disorder (CMS/HCC) (HCC) 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 mellitus (CMS/HCC) (HCC) LIPID PANEL Routine 02/08/2021 9:25 AM CUT FILE CLERK 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 2 diabetes mellitus (CMS/HCC) (HCC) COMPREHENSIVE METABOLIC PANEL Routine 02/08/2021 9:25 AM CUT FILE CLERK 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 Nishant GHOTRA et al. IRVING. 2013;310(19): 5979-1692 (http://education.[employer].Numerate/faq/XTF852) Chol/HDL ratio 3.5 <5.0 (calc) [facility] Non-HDL, (LDL+VLDL) 97 <130 mg/dL (calc) [facility] Comment: For patients with diabetes plus 1 major ASCVD risk factor, treating to a non-HDL-C goal of <100 mg/dL (LDL-C of <70 mg/dL) is considered a therapeutic option. Blood specimen (specimen) 02/08/2021 9:25 AM CUT FILE CLERK 02/08/2021 9:25 AM CUT FILE CLERK Narrative [facility] - 02/09/2021 2:28 AM CUT FILE CLERK FASTING:YES FASTING: YES Ronaldo Ulrich MD LAB BLOOD ORDERABLES Fin al Result Performing Organization Address City/[facility]/ZIP Co de Phone Number [facility] [address] [place] [address] * (ABNORMAL) Hemoglobin A1c (02/08/2021 9:25 AM CUT FILE CLERK) Hgb A1C 8.1(H) <5.7 % of total Hgb [facility] Blood specimen (specimen) 02/08/2021 9:25 AM CUT FILE CLERK 02/08/2021 9:25 AM CUT FILE CLERK Narrative [facility] - 02/09/2021 2:28 AM CUT FILE CLERK FASTING:YES FASTING: YES Ronaldo Ulrich MD LAB BLOOD ORDERABLES Fin al Result Performing Organization Address City/[facility]/ZIP Co de Phone Number [facility] [address] [place] [address] * (ABNORMAL) Comprehensive metabolic panel (02/08/2021 9:25 AM CUT FILE CLERK) Glucose 183(H) 65 - 99 mg/dL [facility] Comment: ? Fasting reference interval For someone without known diabetes, a glucose value >125 mg/dL indicates that they may have diabetes and this should be confirmed with a follow-up test. BUN 18 7 - 25 mg/dL [facility] Creatinine 1.05 0.70 - 1.18 mg/dL [facility] Comment: For patients >49 years of age, the reference limit for Creatinine is approximately 13% higher for people identified as -[place]. eGFR NON-AFR. [place] 69 > OR = 60 mL/min/1 .73m2 [facility] EGFR 80 > OR = 60 mL/min/1 .73m2 [facility] BUN/creat ratio NOT APPLICABLE 6 - 22 (calc) [facility] Sodium 136 135 - 146 mmol/L [facility] Potassium, pl 4.4 3.5 - 5.3 mmol/L [facility] Chloride 100 98 - 110 mmol/L [facility] CO2 28 20 - 32 mmol/L [facility] Calcium 9.5 8.6 - 10.3 mg/dL [facility] Protein, sr 7.5 6.1 - 8.1 g/dL [facility] Albumin 4.2 3.6 - 5.1 g/dL [facility] GLOBULIN 3.3 1.9 - 3.7 g/dL (calc) [facility] Alb/glob ratio 1.3 1.0 - 2.5 (calc) [facility] Bilirubin, total 0.7 0.2 - 1.2 mg/dL [facility] Alk phos 71 35 - 144 U/L [facility] AST 21 10 - 35 U/L [facility] ALT (SGPT) 22 9 - 46 U/L [facility] Blood specimen (specimen) 02/08/2021 9:25 AM CUT FILE CLERK 02/08/2021 9:25 AM CUT FILE CLERK Narrative [facility] - 02/09/2021 2:28 AM CUT FILE CLERK FASTING:YES FASTING: YES us Ronaldo Ulrich MD LAB BLOOD ORDERABLES Fin al Result [facility] [address] [place] [id number] documented in this encounter Visit Diagnoses Diagnosis 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)- Primary 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 mellitus (CMS/HCC) (HCC) 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) Hypertensive heart disease without heart failure Unspecified hypertensive heart disease without heart failure Coronary artery disease involving [place] coronary artery of [place] heart without angina pectoris Atherosclerosis of aorta [...] Take 1 capsule by mouth daily vit C,D-Bt-lpail-lute in-zeaxan 250-90-40-1 mg capsule Take 1 capsule by mouth daily insulin degludec-liraglut sumit (Xultophy 100/3.6) 100 unit-3.6 mg /mL (3 mL) insulin pen pen Inject 50 Units under the skin daily 12/15/2020 acyclovir (ZOVIRAX) 400 mg tablet Take 400 mg by mouth 2 (two) times a day 12/11/2020 added in this encounter Care Teams Manager Sql Relationship Specialty Start Date End Date Ronaldo Ulrich MD [address] [place] [address] PCP - General Internal Medicine 11/09/20 12/20/20 documented as of this encounter
--- OUTSIDE RECORDS SUMMARY | 2024-02-10 05:35 | XMS_ITS | Encounter Summary ---
Author Organization [facility] Address [address] [place] [address] [address] [place] [address] Care Team Providers Care Vat Tender Name Role Phone Ronaldo Ulrich MD Primary Care Provider + Reason for Visit * Reason Onset Date Comments Covid-19 Home Monitoring 07/27/2021 Daily c all Encounter Details Date Type Department Care Team (Late st Contact Info) Description 07/27/2021 Telephone [facility] Accountable Care Organization [address] [place] [address] Kori Farley, [address] [place] [address] Covid-19 Home Monitoring (Daily call) Social History [...] file 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
--- OUTSIDE RECORDS SUMMARY | 2024-02-10 05:35 | XMS_ITS | Encounter Summary ---
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 It depends on pulmonary function technologist and batch he has. The recalled batches were from [employer]. Nothing inherently wrong with irbesartan. Would call pharmacy to see if his batch is affected. 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 He takes Irbesartan HCTZ 300/12.5mg. could we call different medication to [facility]. Can call him at [phone] documented in this encounter Plan of Treatment Not on file documented as of this encounter Visit Diagnoses Not on filedocumented in this encounter Care Teams General I Farmworker Relationship Specialty Start Date End Date Ronaldo Ulrich MD [address] [place] [address] PCP - General Internal Medicine 11/09/20 12/20/20 documented as of this encounter
--- OUTSIDE RECORDS SUMMARY | 2024-02-10 05:35 | XMS_ITS | Encounter Summary ---
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
--- OUTSIDE RECORDS SUMMARY | 2024-02-10 05:35 | XMS_ITS | Encounter Summary ---
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 Would have him call the [employer] lead customer service representative * Telephone Encounter - Kristyn Reynaga [...] documented as of this encounter Care Teams Construction Superintendent Relationship Specialty Start Date End Date Ronaldo Ulrich MD [address] [place] [address] PCP - General Internal Medicine 01/18/21 documented as of this encounter
--- OUTSIDE RECORDS SUMMARY | 2024-02-10 05:35 | XMS_ITS | Encounter Summary ---
Author Organization [facility] Address [address] [address] Care Team Providers Care Veterinary Technician Name Role Phone Ronaldo Ulrich MD Primary Care Provider + Reason for Visit * Reason Comments Cough Encounter Details Date Type Department Care Team (Late st Contact Info) Description 01/21/2021 3:00 PM ELECTROPHYSIOLOGY TECH Telemedicine [facility] Primary Care [address] [place] [address] Francoise Pederson PA [address] [place], [place] [phone] Acute bronchitis, unspecified organism (Primary Dx) Social [...] on file Legal Sex Male 11:37 AM ELECTROPHYSIOLOGY TECH Gender Identity Not on file Sexual [...] 121.6 kg (268 lb) 01/21/2021 3:10 PM ELECTROPHYSIOLOGY TECH Height - - Body Mass Index 37.38 01/19/2021 9:45 AM ELECTROPHYSIOLOGY TECH documented in this encounter Ordered Prescriptions Prescription [...] located at work in the state of [place]. The patient visit started at 3:15 and [...] neuropathy associated with type 2 diabetes mellitus ([facility]) 09/05/2019 ??? Obstructive sleep apnea 03/07/2019 ??? Atherosclerosis of aorta ([facility] ([facility]) 02/15/2018 ??? Medicare annual wellness visit, subsequent 09/25/2017 ??? Coronary artery disease involving [place] coronary artery of [place] heart without angina pectoris 04/07/2017 ??? Screening for colon cancer 02/21/2017 ??? Morbid obesity with BMI of 45.0-49.9, adult ([facility] ([facility]) 08/18/2016 ??? Renal cyst, acquired, right 08/18/2016 ??? DDD (degenerative disc disease), thoracolumbar 08/18/2016 ??? Family history of colon cancer 02/04/2016 ??? 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 2 diabetes mellitus (CMS/HCC) ([facility]) 11/02/2015 ??? Abnormal findings on diagnostic imaging of lung 02/28/2014 ??? DDD (degenerative disc disease), cervical 01/02/2012 ??? Type 2 diabetes mellitus with circulatory disorder (CMS/HCC) ([facility]) 08/04/2011 ??? Bleeding external hemorrhoids 06/21/2011 ??? [...] 30 tablet 11 ??? blood glucose diagnostic ([employer]) strip smbg bid ac 100 each [...] AT NIGHT 90 tablet 3 ??? vit C,J-Zv-tfkhe-lutein-zeaxan 250-90-40-1 mg capsule Take 1 capsule by [...] exam is limited due to telemedicine appointment TROPHYSIOLOGY TECH documented in this encounter Miscellaneous Notes * Assessment & Plan Note - Francoise Pederson PA - 01/21/2021 3:33 PM ELECTROPHYSIOLOGY TECH Associated Problem(s): Acute bronchitis (Resolved 02/10/2021) Contact our office if no improvement after treatment, develop new symptoms or feeling worse at any point. TROPHYSIOLOGY TECH documented in this encounter Plan of Treatment Not on file documented as of this encounter Visit Diagnoses Diagnosis Acute bronchitis, unspecified organism- Primary documented in this encounter Care Teams Veterinary Technician Relationship Specialty Start Date End Date Ronaldo Ulrich MD [address] [place] [address] PCP - General Internal Medicine 01/18/21 documented as of this encounter
--- OUTSIDE RECORDS SUMMARY | 2024-02-10 05:35 | XMS_ITS | Encounter Summary ---
Author Organization [facility] Address [address] [address] Care Team Providers Care Pump Erector Helper Name Role Phone Ronaldo Ulrich MD Primary Care Provider + Reason for Visit * Reason Onset Date Comments ? regarding medication 01/18/2021 Encounter Details Date Type Department Care Team (Late st Contact Info) Description 01/18/2021 Telephone [facility] Primary Care [address] [place] [address] Unknown, Notinfile ? 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 R LOCKING SUPERVISOR * Telephone Encounter - Shari Honeycutt MA - 01/18/2021 10:23 AM FIBER LOCKING SUPERVISOR LMOR to return call R LOCKING SUPERVISOR * Telephone Encounter - Ronaldo Ulrich MD - 01/18/2021 10:14 AM FIBER LOCKING SUPERVISOR Hold Xulophy the morning of the procedure. Continue humolog SSI per blood sugars R LOCKING SUPERVISOR * Telephone Encounter - Shari Honeycutt MA - 01/18/2021 10:10 AM FIBER LOCKING SUPERVISOR Pt called stating that he is scheduled for a colonoscopy tomorrow and is wanting to know what he should do regarding his insulin R LOCKING SUPERVISOR documented in this encounter Plan of Treatment Not on file documented as of this encounter Visit Diagnoses Not on filedocumented in this encounter Care Teams Pump Erector Helper Relationship Specialty Start Date End Date Ronaldo Ulrich MD [address] [place] [address] PCP - General Internal Medicine 01/18/21 documented as of this encounter
--- OUTSIDE RECORDS SUMMARY | 2024-02-10 05:35 | XMS_ITS | Encounter Summary ---
Author Organization [facility] Healthcare Address [address] [place] [address] Care Team Providers Care Business Services Manager Name Role Phone Ronaldo Ulrich MD Primary Care Provider + Encounter Details Date Type Department Care Team (Latest Contact Info) Description 01/19/2021 9:18 AM CLOTH CUTTER - 01/19/2021 1:23 PM CLOTH CUTTER Hospital Encounter [facility] Endoscopy [address] [place] [address] Carson Roberts MD PhD [address] [place] [address] History of colon polyps Discharge Disposition: Discharge [...] file Legal Sex Male 11:37 AM CLOTH CUTTER Gender Identity Not on file Sexual Orientation Not on file 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 Not on file documented as of this encounter Last Filed Vital Signs Vital Sign Reading Time Taken Comments Blood Pressure 135/62 01/19/2021 12:50 PM CLOTH CUTTER Pulse 77 01/19/2021 12:55 PM CLOTH CUTTER Temperature 36.1 ??C (97 ??F) 01/19/2021 12:25 PM CLOTH CUTTER Respiratory Rate 12 01/19/2021 12:55 PM CLOTH CUTTER Oxygen Saturation 94% 01/19/2021 12:55 PM CLOTH CUTTER Inhaled Oxygen Concentration - - Weight 121.6 kg (268 lb) 01/19/2021 9:45 AM CLOTH CUTTER Height 180.3 cm (5' 11 ) 01/19/2021 9:45 AM CLOTH CUTTER Body Mass Index 37.38 01/19/2021 9:45 AM CLOTH CUTTER documented in this encounter Discharge Diagnoses Diagnosis [...] dependence - PERSONAL HISTORY OF NICOTINE DEPENDENCE 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 * Procedural Sedation (AfterCare(R) Instructions(ER/ED)) (Turkish) documented in this encounter Medications at Time [...] 3 kit 3 05/08/2020 miscellaneous medical supply [facility] C-Pap vit C,F-Ym-vomub-lut ein-zeaxan 250-90-40-1 mg capsule Take 1 capsule [...] disease without heart failure,Coronary artery disease involving [place] coronary artery of [place] heart without angina pectoris TAKE 2 TABLETS [...] NIGHT 05/14/20 Yes Rickey Do MD vit C,H-Ui-chmre-lutein-zeaxan 250-90-40-1 mg capsule Take 1 capsule by [...] planned procedure for the reasons stated above. H CUTTER documented in this encounter Procedure Notes * Carson Roberts MD PhD - 01/19/2021 11:48 AM CSTAssociated Order(s): COLONOSCOPY ENDOSCOPY LAB Patient Name: Ayden Santos Procedure Date: 01/19/2021 11:48 AM Date of : 1945 Admit Type: Outpatient Age: 75 Gender: Male Attending MD: Carson Roberts MD, PHD Room: [facility] ENDOSCOPY ROOM 02 Note Status: [...] scope was passed under direct vision. The [id number] was introduced through the anus and advanced to the terminal ileum. The colonoscopy was performed without difficulty. The patient tolerated the procedure well. The quality of the bowel preparation was good. The quality of the bowel preparation was evaluated using the BBPS ([place] Bowel Preparation Scale) with scores of: Right [...] hours - Please call the Nurse Coordinator: [phone]. After hours, evening, nights, weekends and holidays - Please call the hospital gear coding machine operator at and ask for the GI fellow automotive professional. Attending Participation: I personally performed the entire procedure. Electronically signed by Carson Roberts MD. Carson Roberts MD, PHD 01/19/2021 12:22:26 PM Number of Addenda: 0 Note Initiated On: 01/19/2021 11:48 AM H CUTTER documented in this encounter Miscellaneous Notes * Perioperative Nursing Note - Octavia Green RN - 01/19/2021 1:[address] Roberts spoke with patient re: findings. Discharge instructions given to patient ( and spouse by phone)- questions answered, understanding expressed. Tolerating po w/o problems. H CUTTER * Pre-Procedure Instructions - Mona Allen RN - 01/18/2021 3:47 PM CLOTH CUTTER Please follow any and all instruction you were given re:Bowel prep When you arrive, please come to [facility]. As you enter there will [...] mask at all times If this person(your carrier driver)chooses not to come inside or will be picking you up after your procedure with anesthesia, for your safety we will confirm your ride home by phone call prior to your procedure start time H CUTTER documented in this encounter Plan of Treatment Not on file documented as of this encounter Procedures Procedure Name Priority Date/Time Associated Diagnosis Comments POCT GLUCOSE DEVICE Routine 01/19/2021 1 2:41 PM CLOTH CUTTER SURGICAL PATHOLOGY Routine 01/19/2021 12 :02 PM CLOTH CUTTER History of colon polyps COLONOSCOPY 01/19/2021 11:48 AM CLOTH CUTTER COLON REMOVAL SNARE 01/19/2021 1 1:46 AM CLOTH CUTTER History of colon polyps POCT GLUCOSE DEVICE Routine 01/19/2021 1 0:19 AM CLOTH CUTTER documented in this encounter Results * POCT glucose (01/19/2021 12:41 PM CLOTH CUTTER) Glucose, POC 156 70 - 199 mg/dL TAYLOR ZUNIGA Comment: Interpretive Data Glucose is assumed to be non-fasting. Fasting Glucose reference ranges are: 0 - 150 years: ??70 mg/dL - 99 mg/dL Current interpretive data was last revised on 2013. POC Performer [id number] TAYLOR JONESWCH POC Device Number [id number] TAYLOR JONESWALEX Blood 01/19/2021 12:4 1 PM CLOTH CUTTER 01/19/2021 12:41 PM CLOTH CUTTER us Carson Roberts MD PhD LAB POCT ORDERABLES - DEV ICE Final Result TAYLOR JONESWCH [id number] [facility]. [place] [address] * Surgical pathology (01/19/2021 12:02 PM CLOTH CUTTER) Tissue (Polyp(s), colon/colorectal, esophageal, gastric) 01/19/2021 12:02 PM CLOTH CUTTER Tissue (Polyp(s), colon/colorectal, esophageal, gastric) 01/19/2021 12:12 PM CLOTH CUTTER Narrative PATHOLOGY [facility] - 01/20/2021 10:21 AM CLOTH CUTTER EPIC results best viewed via link to PDF [facility] [place] [address] [place] [address] Note to Patients: This report may contain [...] ??M : ??1945 (Age: 75) Address: ?? [place], [place] ??[address] Hospital #: ??[id number] Taken:01/19/2021 Received:01/19/2021 Reported: 01/20/2021 Patient Type: WC SDS Client ?[facility] Service: Gastro Location: [facility] Physician(s): ??Carson Roberts M.D. Dr. Ronaldo Ulrich [...] interpretation for this case was performed at [facility], Department of Surgical Pathology, [address] [facility], [place] [id number], ??[place], [place] ??[address] ?? CLIA # [id number] Myra Mccann M.D. History: The patient is [...] Surgical Pathology and Flow Cytometry Departments at [facility] as part of an ongoing air quality chemist program and in compliance with federally mandated [...] Surgical Pathology and Flow Cytometry Departments of [facility]. ??It has not been cleared or approved by the U. S. Food and Drug Administration. IMAGES AND SCANNED DOCUMENTS, IF INCLUDED, ONLY VIEWABLE IN PDF VERSION OF REPORT us Carson Roberts MD PhD LAB PATHOLOGY ORDERABLES Final Result [facility] [phone] * COLONOSCOPY (01/19/2021 11:48 AM CLOTH CUTTER) Anatomical Region Laterality Modality Other Narrative Procedure Note Carson Roberts MD PhD - 01/19/2021 11:48 AM CST ENDOSCOPY LAB Patient Name: Ayden Santos Procedure Date: 01/19/2021 11:48AM Date of : 1945 Admit Type: Outpatient Age: 75 Gender: Male Attending MD: Carson Roberts MD,PHD Room: [facility] ENDOSCOPY ROOM 02 Note Status: [...] The scope was passed under direct vision.The [id number] was introduced through the anusand advanced to [...] During normal business hours - [facility] Coordinator: [phone]. After hours, evening, nights, weekends and holidays- Please call the hospital gear coding machine operator at and ask for the GI fellow automotive professional. Attending Participation: I personally performed the entire procedure. Electronically signed by Carson Roberts MD. Carson Roberts MD, PHD 01/19/2021 12:22:26 PM Number of Addenda: 0 Note Initiated On: 01/19/2021 11:48 AM us Carson Roberts MD PhD ENDOSCOPY PROCEDURES Anya l Result * POCT glucose (01/19/2021 10:19 AM CLOTH CUTTER) Glucose, POC 162 70 - 199 mg/dL TAYLOR ZUNIGA Comment: Interpretive Data Glucose is assumed to be non-fasting. Fasting Glucose reference ranges are: 0 - 150 years: ??70 mg/dL - 99 mg/dL Current interpretive data was last revised on 2013. POC Performer [id number] TAYLOR ZUNIGA POC Device Number [id number] TAYLOR ZUNIGA Blood 01/19/2021 10:1 9 AM CLOTH CUTTER 01/19/2021 10:19 AM CLOTH CUTTER us Carson Roberts MD PhD LAB POCT ORDERABLES - DEV ICE Final Result TAYLOR [facility] [address] [address]. [place] [address] documented in this encounter Visit Diagnoses Diagnosis History of colon polyps- Primary documented in this encounter Admitting Diagnoses Diagnosis History of colon polyps documented in this encounter Administered Medications Inactive Administered Medications - up to 3 most recent administrations Medication Order MAR Action Action Date Dose Rate Site albuterol 2.5 mg/0.5 mL nebulizer solution 2.5 mg 2.5 mg, nebulization, Once (director of respiratory therapy), On Mon01/19/21 at 1115, For 1 dose, Pre-Op Given 01/19/2021 10:47 AM CLOTH CUTTER 2.5 mg ipratropium (ATROVENT) 0.02 % nebulizer solution 0.5 mg 0.5 mg, nebulization, Once (director of respiratory therapy), On Mon01/19/21 at 1115, For 1 dose, Pre-Op Given 01/19/2021 10:47 AM CLOTH CUTTER 0.5 mg ondansetron (ZOFRAN) injection 4 mg [...] Pre-Procedure (GI) Rate/Dose Verify 01/19/2021 11:46 AM CLOTH CUTTER 30 mL/hr New Bag 01/19/2021 10:23 AM CLOTH CUTTER 30 mL/hr 30 mL/hr documented in this encounter Discontinued Medications Medication Sig Discontinue Reason Start Date End Da te polyethylene glycol (GoLYTELY) 236-22.74-6.74 -5.86 gram solution Please follow instructions mailed from our office for your colonoscopy prep Stop Taking at Discharge 11/25/2020 01/19/2021 documented as of this encounter Active and Recently Administered Medications Times are shown in CLOTH CUTTER. 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 (director of respiratory therapy), On Mon01/19/21 at 1115, For 1 dose, Pre-Op 1047 (Given - Provid er: April Edmondson RRT) ipratropium (ATROVENT) 0.02 % nebulizer solution 0.5 mg (COMPLETED)(Linked Group 1) 0.5 mg, nebulization, Once (director of respiratory therapy), On Mon01/19/21 at 1115, For 1 dose, [...] (COMPLETED)Jump to med 2.5 mg, nebulization, Once (director of respiratory therapy), On Mon01/19/21 at 1115, For 1 dose, Pre-Op And ipratropium (ATROVENT) 0.02 % nebulizer solution 0.5 mg (COMPLETED)Jump to med 0.5 mg, nebulization, Once (director of respiratory therapy), On Mon01/19/21 at 1115, For 1 dose, Pre-Op documented in this encounter Orders Medications Ordered That Dougie ht Not Have Been Administered Count Last Ordered Date First Ordered Date ondansetron (ZOFRAN) injection 4 mg 1 01/19 sodium chloride 0.9% flush 0.5-20 mL 1 12/23 documented in this encounter Care Teams Business Services Manager Relationship Specialty Start Date End Date Ronaldo Ulrich MD [address] [place] [address] PCP - General Internal Medicine 01/18/21 documented as of this encounter
--- OUTSIDE RECORDS SUMMARY | 2024-02-10 05:35 | XMS_ITS | Encounter Summary ---
Author Organization [facility] Medical Group Address [address] [facility] [address] [place] [address] Care Team Providers Care Bellstand Attendant Name Role Phone Ronaldo Ulrich MD Primary Care Provider + Reason for Visit * Reason Onset Date Comments Covid-19 Home Monitoring 07/26/2021 Encounter Details Date Type Department Care Team (Late st Contact Info) Description 07/26/2021 Telephone [facility] Accountable Care Organization [address] [place] [id number] Rosa Valdivia, [address] [place] [address] Covid-19 Home Monitoring Social History Tobacco Use [...] on file 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
--- OUTSIDE RECORDS SUMMARY | 2024-02-10 05:35 | XMS_ITS | Encounter Summary ---
Author Organization [facility] Medical Group Address [address] [facility] [address] [place] [address] Care Team Providers Care Air Hammer Stripper Name Role Phone Ronaldo Ulrich MD Primary Care Provider + Reason for Visit * Reason Onset Date Comments Covid-19 Home Monitoring 07/29/2021 Encounter Details Date Type Department Care Team (Late st Contact Info) Description 07/29/2021 Telephone [facility] Accountable Care Organization [address] [place] [address] oRsa Valdivia, [address] [place] [address] Covid-19 Home Monitoring Social History Tobacco Use [...] on file 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
--- OUTSIDE RECORDS SUMMARY | 2024-02-10 05:35 | XMS_ITS | Encounter Summary ---
Author Organization [facility] Medical Group Address [address] [address] Care Team Providers Care Senior Quantity Surveyor Name Role Phone Ronaldo Ulrich MD Primary Care Provider + Reason for Visit * Reason Comments URI Cough, congestion, h ome covid test negative, sore throat, drainage symptoms for 5 days. 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 * Upper Respiratory Infection (Finished Goods Planner) (Irish) documented in this encounter Ordered Prescriptions Prescription [...] tenderness or frontal sinus tenderness. Mouth/Throat: Lips: [place]. Mouth: Mucous membranes are moist. Tongue: Tongue [...] Disp: 90 tablet, Rfl: 1 ??? vit C,X-Hg-vorzb-lutein-zeaxan 250-90-40-1 mg capsule, Take 1 capsule by [...] 8:39 AM CDT) COVID-19 RNA Positive(A) Negative [facility] Influenza A RNA Negative Negative [facility] Influenza B RNA Negative Negative [facility] RSV RNA Negative Negative [facility] Comment: Interpretive data: This test is performed using the [employer] Xpert Xpress CoV-2/Flu/RSV plus assay. This is [...] - GENERAL ADDIS GILBERT Final Result TAYLOR [address] [place] [address] documented in this encounter Visit Diagnoses Diagnosis [...] as of this encounter Care Teams Senior Quantity Surveyor Relationship Specialty Start Date End Date Ronaldo Ulrich MD [address] [place] [address] PCP - General Internal Medicine 01/18/21 documented as of this encounter
--- OUTSIDE RECORDS SUMMARY | 2024-02-10 05:35 | XMS_ITS | Encounter Summary ---
Author Organization [facility] Medical Group Address [address] [place] [address] [address] [place] [address] Care Team Providers Care Belt Maker Helper Name Role Phone Ronaldo Ulrich MD Primary Care Provider + Reason for Visit * Reason Onset Date Comments Covid-19 Home Monitoring 07/28/2021 Daily c all Encounter Details Date Type Department Care Team (Late st Contact Info) Description 07/28/2021 Telephone [facility] Accountable Care Organization [address] [place] [address] Kori Farley, [address] [place] [address] Covid-19 Home Monitoring (Daily call) Social History [...] on file Legal Sex Male 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 Next Program Call Due: 07/29 documented in this encounter Plan of Treatment Not on file documented as of this encounter Visit Diagnoses Not on filedocumented in this encounter Additional Health Concerns Infection Onset Date Last Indicated Resolved Time COVID19 07/24/2021 07/24/2021 08/03/2021 3:05 AM CDT documented as of this encounter Care Teams Belt Maker Helper Relationship Specialty Start Date End Date Ronaldo Ulrich MD [address] [place] [address] PCP - General Internal Medicine 01/18/21 documented as of this encounter
--- OUTSIDE RECORDS SUMMARY | 2024-02-10 05:35 | XMS_ITS | Encounter Summary ---
Author Organization [facility] Medical Group Address [address] [address] Care Team Providers Care Firebrick Layer Helper Name Role Phone Ronaldo Ulrich MD Primary Care Provider + Reason for Referral * Procedure (Routine) - Closed Specialty Diagnoses / Procedures Referred By Contac t Referred To Contact Diagnoses Acquired trigger finger of left ring finger Procedures Hand / Upper Extremity Arthrocentesis: L ring A1 Nuria Thapa PA [facility] [address] [place] [address] Phone: tel: fax: [facility] Medical Group Referral ID Status Reason Start Date Expiration Date Visits Re quested Visits Authorized [id number] Closed 03/08/2021 04/07/2022 1 1 S CUT OFF TENDER Reason for Visit * Reason Comments Trigger Finger * Consultation (Routine) - Closed Specialty Diagnoses / Procedures Referred By Contaida t Referred To Contact Orthopedic Surgery Diagnoses Acquired trigger finger of left ring finger Ronaldo Ulrich MD [address] [place] [address] Phone: tel: fax: Nuria Thapa PA [address] [facility] [address] [place] [address] Phone: tel: fax: Referral ID Status Reason Start Date Expiration Date V isits Requested Visits Authorized [id number] Closed Specialty Services Required 02/11/2021 03/13/2022 1 1 Encounter Details Date Type Department Care Team (Late st Contact Info) Description 03/08/2021 1:45 PM GLASS CUT OFF TENDER Office Visit [facility] Medical Group Hand Surgery [facility] [address] [place] [phone] Nuria Thapa, PA [address] [facility] [address] [address] Acquired trigger finger of left ring finger [...] on file Legal Sex Male 11:37 AM GLASS CUT OFF TENDER Gender Identity Not on file Sexual [...] 120.2 kg (265 lb) 03/08/2021 1:31 PM GLASS CUT OFF TENDER Height 177.8 cm (5' 10 ) 03/08/2021 1:31 PM GLASS CUT OFF TENDER Body Mass Index 38.02 03/08/2021 1:31 PM GLASS CUT OFF TENDER documented in this encounter Progress Notes * [...] 10 mg triamcinolone 40 mg/mL OMARI Chapin S CUT OFF TENDER documented in this encounter Plan of Treatment Not on file documented as of this encounter Procedures Procedure Name Priority Date/Time Associated Diagnosis Comments [place] INJECTION 1 TENDON SHEATH/LIGAMENT APONEUROSIS Routine 03/08/2021 1:45 PM GLASS CUT OFF TENDER Acquired trigger finger of left ring finger documented in this encounter Results * [place] INJECTION 1 TENDON SHEATH/LIGAMENT APONEUROSIS (03/08/2021 1:45 PM GLASS CUT OFF TENDER) Narrative Nuria Thapa PA - 03/08/2021 1:45 PM GLASS CUT OFF TENDER Nuria Thapa PA ? 03/08/2021 ??2:11 PM [...] of Local Anesthesia Given 03/08/2021 2:11 PM GLASS CUT OFF TENDER 1 mL triamcinolone (KENALOG) 40 mg/mL injection 10 mg 10 mg, intra-articular, One-Time Injection, Starting on Mon03/08/21 at 1411, For 1 doseIndications:Acquired trigger finger of left ring finger Given 03/08/2021 2:11 PM GLASS CUT OFF TENDER 10 mg documented in this encounter Orders Outpatient Referral Count Last Ordered Date Fir st Ordered Date AMB REFERRAL TO ORTHOPEDIC SURGERY 1 2021 documented in this encounter Care Teams Firebrick Layer Helper Relationship Specialty Start Date End Date Ronaldo Ulrich MD [address] [place] [address] PCP - General Internal Medicine 01/18/21 documented as of this encounter
--- OUTSIDE RECORDS SUMMARY | 2024-02-10 05:35 | XMS_ITS | Encounter Summary ---
Author Organization [facility] Address [address] [place] [address] Care Team Providers Care Physician Scientist Name Role Phone Ronaldo Ulrich MD Primary Care Provider + Encounter Details Date Type Department Care Team (Late st Contact Info) Description 01/19/2021 11:46 AM NEEDLE PUNCH OPERATOR Anesthesia Event [facility] End[facility] [address] [place] [address] Nigel Diaz MD [address] [facility] [address] [place] [address] Anesthesia Record Procedure Summary Procedure Name Responsible [...] on file Legal Sex Male 11:37 AM NEEDLE PUNCH OPERATOR Gender Identity Not on file Sexual Orientation Not on file 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 LE PUNCH OPERATOR * Anesthesia Preprocedure Evaluation - Nigel [...] colon cancer ??? Coronary artery disease involving [place] coronary artery of [place] heart without angina pectoris ??? Abnormal findings [...] 5 mg tablet 01/19/2021 11/09/20 -- Ronaldo Ulrich MD Take 1 tablet (5 mg total) [...] mg immediate release tablet 01/19/2021 11/09/20 -- Ronaldo Ulrich MD TAKE 2 TABLETS BY MOUTH [...] NIGHT Notes: Requesting 1 year supply vit C,I-Eo-pcjlo-lutein-zeaxan 250-90-40-1 mg capsule Past Week -- -- [...] Medication protocol when under care of a RESPIRATORY SERVICES MANAGER Planned anesthesia: General Informed Consent: Anesthesia plan [...] and agree to proceed. All questions answered. LE PUNCH OPERATOR LE PUNCH OPERATOR documented in this encounter Plan of [...] 1159, Anesthesia Intra-op Given 01/19/2021 11:59 AM NEEDLE PUNCH OPERATOR 25 mcg lidocaine (XYLOCAINE) 20 mg/mL (2 %) injection intravenous, As needed, Starting on Mon01/19/21 at 1157, Anesthesia Intra-op, Indications: Administration of Local AnesthesiaIndications:Ad ministration of Local Anesthesia Given 01/19/2021 11:57 AM NEEDLE PUNCH OPERATOR 5 mL propofoL (DIPRIVAN) 10 mg/mL IV intravenous, Continuous PRN, Starting on Mon01/19/21 at 1157, Anesthesia Intra-op Rate/Dose Change 01/19/2021 12:03 PM NEEDLE PUNCH OPERATOR 100 mcg/kg/min 72.96 mL/hr New Bag 01/19/2021 11:57 AM NEEDLE PUNCH OPERATOR 140 mcg/kg/min 102.144 mL/hr propofoL (DIPRIVAN) 10 mg/mL IV intravenous, As needed, Starting on Mon01/19/21 at 1157, Anesthesia Intra-op Given 01/19/2021 11:57 AM NEEDLE PUNCH OPERATOR 80 mg sodium chloride 0.9% infusion 30 mL/hr, intravenous, Continuous, Starting on Mon01/19/21 at 1030, Pre-Procedure (GI) Rate/Dose Verify 01/19/2021 11:46 AM NEEDLE PUNCH OPERATOR 30 mL/hr New Bag 01/19/2021 10:23 AM NEEDLE PUNCH OPERATOR 30 mL/hr 30 mL/hr documented in this encounter Care Teams Physician Scientist Relationship Specialty Start Date End Date Ronaldo Ulrich MD [address] [place] [address] PCP - General Internal Medicine 01/18/21 documented as of this encounter
--- OUTSIDE RECORDS SUMMARY | 2024-02-10 05:35 | XMS_ITS | Encounter Summary ---
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
--- OUTSIDE RECORDS SUMMARY | 2024-02-10 05:35 | XMS_ITS | Encounter Summary ---
Author Organization [facility] Address [address] [place] [address] Phone Care Team Providers Care Cellular Tower Climber Name Role Phone Ronaldo Ulrich MD Primary Care Provider + Reason for Visit * Reason Onset Date Comments GI PRE PROCEDURE ASSESSMENT 11/25/2020 DUE FOR COLON Encounter Details Date Type Department Care Team (Late st Contact Info) Description 11/25/2020 Telephone 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 Gender Identity Not on file Sexual [...] None ENDOCRINE: None PRIOR PROCEDURE ISSUES: None GENERAL PASSENGER AGENT/: NA IMPLANTS.: None Notes: DIABETIC MEDS Y/N: [...] [] Location limitations: Scheduling Scheduling location limitations: Electrical/Instrument Technician needed [x] NA Language: POA [x] NA Name: SPECIAL PROCEDURE INSTRUCTIONS golytely/mag citrate Scheduling Notes Procedure information Date of procedure: 01/19 Time of procedure: 11:00 am Arrival time: 10:00 am Location: [facility] Proceduralist: Carson Roberts Instructions Method of instructions: Mailed copy [x]Confirmation of ride/cementer hand []Post anesthesia restrictions given [x]NPO Instructions: [x]Diet [...] 11/25/2020 documented in this encounter Care Teams Cellular Tower Climber Relationship Specialty Start Date End Date Ronaldo Ulrich MD [address] [place] [address] PCP - General Internal Medicine 11/09/20 12/20/20 documented as of this encounter
--- OUTSIDE RECORDS SUMMARY | 2024-02-10 05:35 | XMS_ITS | Encounter Summary ---
Author Organization [facility] Address [address] [address] Care Team Providers Care Chip Tester Name Role Phone Ronaldo Ulrich MD Primary Care Provider + Reason for Visit * Reason Comments Follow-up 6 month, hyperlipide calvin, peripheral neuropathy, diabetic neuropathy, prostatic hyperplasia, atherosclerosis, H/O colon polyps, sleep apnea, pt would like to see about doing automatic insulin pump. 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 Gender Identity Not on file Sexual Orientation [...] disease without heart failure,Coronary artery disease involving ekuk coronary artery of ekuk heart without angina pectoris Take 2 tablets [...] 2 diabetes mellitus with circulatory disorder (CMS/HCC) ([facility]) (Primary) Assessment & Plan: Complicated by hypertension [...] due to type 2 diabetes mellitus (CMS/HCC) ([facility]) Assessment & Plan: Well controlled on simvastatin Orders: - simvastatin (ZOCOR) 40 mg tablet; Take 1 tablet (40 mg total) by mouth nightly - Comprehensive metabolic panel; Future - Lipid panel; Future Coronary artery disease involving ekuk coronary artery of ekuk heart without angina pectoris Assessment & Plan: Stable on aspirin, simvastatin, metoprolol, Farxiga, and aspirin. Follows with Dr. Jiménez Orders: - metoprolol tartrate (LOPRESSOR) 50 mg immediate release tablet; Take 2 tablets (100 mg total) by mouth every morning AND 1 tablet (50 mg total) daily with lunch. 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 mellitus (CMS/HCC) ([facility]) Assessment & Plan: Hemoglobin A1c is stable. Continue metformin, Humalog, Farxiga, and Xultophy. Neuropathy controlled with gabapentin Diabetic nephropathy associated with type 2 diabetes mellitus ([facility]) Assessment & Plan: Urine microalbumin remains elevated. Preserved renal function. Continue irbesartan hydrochlorothiazide and Farxiga for renal protection Benign prostatic hyperplasia without lower urinary tract symptoms Assessment & Plan: Stable on finasteride Orders: - finasteride (PROSCAR) 5 mg tablet; Take 1 tablet (5 mg total) by mouth daily Atherosclerosis of aorta (CMS/HCC) ([facility]) Assessment & Plan: Stable on simvastatin and aspirin History of colon polyps Assessment & Plan: Had colonoscopy by Dr. Schmitt in December of 2020. Recommend repeat colonoscopy in 2023 Class 2 severe obesity due to excess calories with serious comorbidity and body mass index (BMI) of37.0 to 37.9 in adult ([facility]) Assessment & Plan: BMI Follow-up includes: exercise [...] 30 tablet 11 ??? blood glucose diagnostic (Extra Life VERIO) strip smbg bid ac 100 each [...] miscellaneous medical supply misc C-Pap ??? vit C,L-Dl-dgxgc-lutein-zeaxan 250-90-40-1 mg capsule Take 1 capsule by [...] (H) 0.70 - 1.18 mg/dL eGFR NON-AFR. IVORIAN 57 (L) > OR = 60 mL/min/1.73m2 [...] (BMI) of 37.0 to 37.9 in adult ([facility]) BMI Follow-up includes: exercise counseling. * Assessment & Plan Note - Ronaldo Ulrich MD - 08/19/2021 7:23 AM CDT Associated Problem(s): History of colon polyps Had colonoscopy by Dr. Schmitt in December of 2020. Recommend repeat colonoscopy in 2023 * Assessment & Plan Note - Ronaldo Ulrich MD - 08/19/2021 7:22 AM CDT Associated Problem(s): Atherosclerosis of aorta (CMS/HCC) ([facility]) Stable on simvastatin and aspirin * Assessment [...] CDT Associated Problem(s): Coronary artery disease involving ek[place] coronary artery of ek[place] heart without angina pectoris Stable on aspirin, [...] * Assessment & Plan Note - Ronaldo Ulrihc MD - 08/19/2021 7:18 AM CDT Associated Problem(s): Type 2 diabetes mellitus with circulatory disorder (CMS/HCC) ([facility]) Complicated by hypertension and coronary artery disease. Hemoglobin A1c is stable, but still elevated. Continue Humalog, Xultophy, and metformin. Increased Farxiga 10 mg once day. Will try to arrange a insulin pump. documented in this encounter Plan of Treatment Not on file documented as of this encounter Procedures Procedure Name Priority Date/Time Associated Diagnosis Comments HEMOGLOBIN A1C Routine 02/17/2022 7:12 AM PLUSH BRUSHER Type 2 diabetes mellitus with circulatory disorder ([facility]/HCC) ([facility]) LIPID PANEL Routine 02/17/2022 7:12 AM PLUSH BRUSHER 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 2 diabetes mellitus ([facility]/HCC) ([facility]) COMPREHENSIVE METABOLIC PANEL Routine 02/17/2022 7:12 AM PLUSH BRUSHER Hypertensive heart disease without heart failure 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 2 diabetes mellitus ([facility]/HCC) ([facility]) documented in this encounter Results * (ABNORMAL) Lipid panel (02/17/2022 7:12 AM PLUSH BRUSHER) Cholesterol 141 <200 mg/dL [facility] [...] LDL-C. Nishant SS et al. IRV[place]. 2013;310(19): 1488-6779 (http://education.Apertio/faq/CPA834) Chol/HDL ratio 3.7 <5.0 (calc) [facility] Non-HDL, (LDL+VLDL) 103 <130 mg/dL (calc) [facility] Comment: For patients with diabetes plus 1 major ASCVD risk factor, treating to a non-HDL-C goal of <100 mg/dL (LDL-C of <70 mg/dL) is considered a therapeutic option. Blood specimen (specimen) 02/17/2022 7:12 AM PLUSH BRUSHER 02/17/2022 7:12 AM PLUSH BRUSHER Ronaldo Ulrich MD LAB BLOOD ORDERABLES Fin al Result [facility] [address] [place] [address] * (ABNORMAL) Hemoglobin A1c (02/17/2022 7:12 AM PLUSH BRUSHER) Hgb A1C 7.9(H) <5.7 % of total Hgb [facility] Comment: For someone without known diabetes, [...] ?? Blood specimen (specimen) 02/17/2022 7:12 AM PLUSH BRUSHER 02/17/2022 7:12 AM PLUSH BRUSHER us Ronaldo Ulrich MD LAB BLOOD ORDERABLES Fin al [facility] [address] [place] [address] * (ABNORMAL) Comprehensive metabolic panel (02/17/2022 7:12 AM PLUSH BRUSHER) Glucose 156(H) 65 - 99 mg/dL [facility] Comment: ? Fasting reference interval For someone without known diabetes, a glucose value >125 mg/dL indicates that they may have diabetes and this should be confirmed with a follow-up test. BUN 20 7 - 25 mg/dL [facility] Creatinine 1.15 0.70 - 1.28 mg/dL [facility] eGFR 66 > OR = 60 mL/min/1. 73m2 [facility] Comment: The eGFR is based on the CKD-EPI 2020 equation. To calculate the new eGFR from a previous Creatinine or Cystatin C result, go to https://www.kidney.org/professionals/ kdoqi/gfr%5Fcalculator BUN/creat ratio NOT APPLICABLE 6 (calc) [facility] Sodium 141 135 - 146 mmol/L [facility] Potassium, pl 4.2 3.5 - 5.3 mmol/L [facility] Chloride 103 98 - 110 mmol/L [facility] CO2 29 20 - 32 mmol/L [facility] Calcium 9.5 8.6 - 10.3 mg/dL [facility] Protein, sr 7.5 6.1 - 8.1 g/dL [facility] Albumin 4.2 3.6 - 5.1 g/dL [facility] GLOBULIN 3.3 1.9 - 3.7 g/dL (calc) [facility] Alb/glob ratio 1.3 1.0 - 2.5 (calc) [facility] Bilirubin, total 0.5 0.2 - 1.2 mg/dL [facility] Alk phos 76 35 - 144 U/L [facility] AST 15 10 - 35 U/L [facility] ALT (SGPT) 15 9 - 46 U/L [facility] Blood specimen (specimen) 02/17/2022 7:12 AM PLUSH BRUSHER 02/17/2022 7:12 AM PLUSH BRUSHER us Ronaldo Ulrich MD LAB BLOOD ORDERABLES Fin al Result [facility] [address] [place] [address] documented in this encounter Visit Diagnoses Diagnosis 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)- Primary Hypertensive heart disease without heart failure Unspecified hypertensive heart disease without heart failure 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) Coronary artery disease involving ekuk coronary artery of ekuk heart without angina pectoris Diabetic peripheral neuropathy [...] disease without heart failure,Coronary artery disease involving ekuk coronary artery of ekuk heart without angina pectoris TAKE 2 TABLETS [...] documented as of this encounter Care Teams Chip Tester Relationship Specialty Start Date End Date Ronaldo Ulrich MD [address] [place] [address] PCP - General Internal Medicine 01/18/21 documented as of this encounter
--- OUTSIDE RECORDS SUMMARY | 2024-02-10 05:35 | XMS_ITS | Encounter Summary ---
Author Organization [facility] Address [address] [address] Care Team Providers Care Milliner Helper Name Role Phone Ronaldo Ulrich MD Primary Care Provider + Encounter Details Date Type Department Care Team (Late st Contact Info) Description 02/09/[address] 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 Stress ADA diet. Cholesterol looks okay P THERAPIST documented in this encounter Plan of Treatment Not on file documented as of this encounter Visit Diagnoses Not on filedocumented in this encounter Care Teams Milliner Helper Relationship Specialty Start Date End Date Ronaldo Ulrich MD [address] [place] [address] PCP - General Internal Medicine 01/18/21 documented as of this encounter
--- OUTSIDE RECORDS SUMMARY | 2024-02-10 05:35 | XMS_ITS | Encounter Summary ---
Author Organization [facility] Address [address] [place] [address] Care Team Providers Care High School Chemistry Teacher Name Role Phone Ronaldo Ulrich MD Primary Care Provider + Reason for Visit * Cardiology (Routine) - Closed Specialty Diagnoses / Procedures Referred By Contac t Referred To Contact Diagnoses Hypertensive heart disease without heart failure Atherosclerosis of aorta (HCC) Procedures Transthoracic Echo Complete W Doppler/CF Echo Exercise Stress W Doppler/CF Radha Jiménez MD [facility] [address] [place] [address] Phone: tel: fax: [facility] Referral ID Status Reason Start Date Expiration Date Visits Re quested Visits Authorized [id number] Closed 06/07/2021 07/22/2021 1 1 Encounter Details Date Type Department Care Team (Latest Contact Info) Description 07/22/2021 10:58 AM CDT - 07/22/2021 11:59 PM CDT Hospital Encounter [facility] Cardiac Testing [address] 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 Electronically Signed By: Radha Jiménez MD, [facility] 2021-07-22 13:03:24 CDT CC: CC: Procedure Note Radha Jiménez MD - 07/22/2021 [facility] [address] [place] [address] ECHOCARDIOGRAM Patient Name: AYDEN SANTOSPatient ID: [id number] : [id number] Date: 07/22/2021 11:43:43 AM Gender: MAccession #: [id number] Tech: TCLocation: OPT Ref.Provider: RADHA JIMÉNEZHeight(Cm): 178 [...] m/s PV Peak PG 8mmHg Lat E` Artie 0.10 [0.10 - 0.15 ] m/s Sept [...] hypertrophy. Electronically Signed By: Radha Jiménez MD, [facility] 2021-07-22 13:03:24 CDT CC: CC: Radha Jiménez MD CV ECHO PROCEDURES Final R esult documented in this encounter Visit Diagnoses Diagnosis Hypertensive heart disease without heart failure Unspecified hypertensive heart disease without heart failure Atherosclerosis of aorta (HCC) Atherosclerosis of aorta documented in this encounter Care Teams High School Chemistry Teacher Relationship Specialty Start Date End Date Ronaldo Ulrich MD [address] [place] [address] PCP - General Internal Medicine 01/18/21 documented as of this encounter
--- OUTSIDE RECORDS SUMMARY | 2024-02-10 05:35 | XMS_ITS | Encounter Summary ---
Author Organization [facility] Healthcare Address [address] [place] [address] Care Team Providers Care Central Service Technician Name Role Phone Ronaldo Ulrich MD Primary Care Provider + Encounter Details Date Type Department Care Team (Late st Contact Info) Description 01/19/2021 11:00 AM REGISTERED DENTAL ASSISTANT - 01/19/2021 11:45 AM REGISTERED DENTAL ASSISTANT Surgery [facility] Endoscopy [id number] [place] [address] Carson Roberts MD PhD [facility] DALEArpita Greg [address] [place] [address] COLON REMOVAL SNARE Surgery Details Date/Time Status Location OR Service Patient Class Case Class Case Type Trauma Case? 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 Not on file documented as of this encounter Last Filed Vital Signs Vital Sign Reading Time Taken Comments Blood Pressure 170/76 01/19/2021 11:35 AM REGISTERED DENTAL ASSISTANT Pulse 85 01/19/2021 11:35 AM REGISTERED DENTAL ASSISTANT Temperature 36.3 ??C (97.3 ??F) 01/19/2021 9:45 AM CS T Respiratory Rate 21 01/19/2021 11:35 AM REGISTERED DENTAL ASSISTANT Oxygen Saturation 93% 01/19/2021 11:35 AM REGISTERED DENTAL ASSISTANT Inhaled Oxygen Concentration - - Weight 121.6 kg (268 lb) 01/19/2021 9:45 AM REGISTERED DENTAL ASSISTANT Height 180.3 cm (5' 11 ) 01/19/2021 9:45 AM REGISTERED DENTAL ASSISTANT Body Mass Index 37.38 01/19/2021 9:45 AM REGISTERED DENTAL ASSISTANT documented in this encounter Discharge Instructions * Attachments The following attachments cannot be sent through Care Everywhere. * Procedural Sedation (AfterCare(R) Instructions(ER/ED)) (Mauritanian) documented in this encounter Medications at Time [...] every two weeks. 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 05/08/20 An Soto NP miscellaneous medical supply [facility] C-Pap Provider, Migue, MD [place] 100/3.6 100 [...] planned procedure for the reasons stated above. STERED DENTAL ASSISTANT documented in this encounter Procedure Notes * Carson Roberts MD PhD - 01/19/2021 11:48 AM CSTAssociated Order(s): COLONOSCOPY ENDOSCOPY LAB Patient Name: Ayden Santos Procedure Date: 01/19/2021 11:48 AM Date of : 1945 Admit Type: Outpatient Age: 75 Gender: Male Attending MD: Carson Roberts MD, PHD Room: [facility] ENDOSCOPY ROOM 02 Note Status: Finalized [...] scope was passed under direct vision. The [id number] was introduced through the anus and advanced to the terminal ileum. The colonoscopy was performed without difficulty. The patient tolerated the procedure well. The quality of the bowel preparation was good. The quality of the bowel preparation was evaluated using the BBPS ([place] Bowel Preparation Scale) with scores of: Right [...] hours - Please call the Nurse Coordinator: [phone]. After hours, evening, nights, weekends and holidays - Please call the hospital manufacturing machine operator at and ask for the GI fellow lead generation representative. Attending Participation: I personally performed the entire procedure. Electronically signed by Carson Roberts MD. Carson Roberts MD, PHD 01/19/2021 12:22:26 PM Number of Addenda: 0 Note Initiated On: 01/19/2021 11:48 AM STERED DENTAL ASSISTANT documented in this encounter Miscellaneous Notes * Perioperative Nursing Note - Octavia Green RN - 01/19/2021 1:[address] Roberts spoke with patient re: findings. Discharge instructions given to patient ( and spouse by phone)- questions answered, understanding expressed. Tolerating po w/o problems. STERED DENTAL ASSISTANT * Pre-Procedure Instructions - Mona Allen RN - 01/18/2021 3:47 PM REGISTERED DENTAL ASSISTANT Please follow any and all instruction you were given re:Bowel prep When you arrive, please come to [facility] hospital entrance. As you enter there [...] mask at all times If this person(your chassis driver)chooses not to come inside or will be picking you up after your procedure with anesthesia, for your safety we will confirm your ride home by phone call prior to your procedure start time STERED DENTAL ASSISTANT documented in this encounter Plan of Treatment Not on file documented as of this encounter Procedures Procedure Name Priority Date/Time Associated Diagnosis Comments POCT GLUCOSE DEVICE Routine 01/19/2021 1 2:41 PM REGISTERED DENTAL ASSISTANT SURGICAL PATHOLOGY Routine 01/19/2021 12 :02 PM REGISTERED DENTAL ASSISTANT History of colon polyps COLONOSCOPY 01/19/2021 11:48 AM REGISTERED DENTAL ASSISTANT COLON REMOVAL SNARE 01/19/2021 1 1:46 AM REGISTERED DENTAL ASSISTANT History of colon polyps POCT GLUCOSE DEVICE Routine 01/19/2021 1 0:19 AM REGISTERED DENTAL ASSISTANT documented in this encounter Results * POCT glucose (01/19/2021 12:41 PM REGISTERED DENTAL ASSISTANT) Glucose, POC 156 70 - 199 mg/dL TAYLOR ZUNIGA Comment: Interpretive Data Glucose is assumed to be non-fasting. Fasting Glucose reference ranges are: 0 - 150 years: ??70 mg/dL - 99 mg/dL Current interpretive data was last revised on 2013. POC Performer [id number] [facility] P[facility] Device Number [id number] TAYLOR JONESW Blood 01/19/2021 12:4 1 PM REGISTERED DENTAL ASSISTANT 01/19/2021 12:41 PM REGISTERED DENTAL ASSISTANT Carson Roberts MD PhD LAB POCT ORDERABLES - DEV ICE Final Result [facility] [address] [facility] Department [place] [address] * Surgical pathology (01/19/2021 12:02 PM REGISTERED DENTAL ASSISTANT) Tissue (Polyp(s), colon/colorectal, esophageal, gastric) 01/19/2021 12:02 PM REGISTERED DENTAL ASSISTANT Tissue (Polyp(s), colon/colorectal, esophageal, gastric) 01/19/2021 12:12 PM REGISTERED DENTAL ASSISTANT Narrative PATHOLOGY [facility] - 01/20/2021 10:21 AM REGISTERED DENTAL ASSISTANT EPIC results best viewed via link to PDF [facility] [place] [address] Note to Patients: This report may contain [...] ??M : ??1945 (Age: 75) Address: [address], [place] ??[address] Hospital #: ??[id number] Taken:01/19/2021 Received:01/19/2021 Reported: 01/20/2021 Patient Type: WC SDS Client ?[facility] Service: Gastro Location: [facility] Physician(s): ??Sara Almazan Dr., M.D. Diagnosis: A. [...] [facility] [place], Department of Surgical Pathology, [address] [place] [address], ??[place], [place] ??[address] ?? CLIA # [id number] Myra Mccann M.D. History: The patient is [...] [facility] [place] as part of an ongoing it quality assurance analyst program and in compliance with federally mandated [...] PhD LAB PATHOLOGY ORDERABLES Final Result PATHOLOGY [facility] [phone] * COLONOSCOPY (01/19/2021 11:48 AM REGISTERED DENTAL ASSISTANT) Anatomical Region Laterality Modality Other Narrative Procedure Note Carson Roberts MD PhD - 01/19/2021 11:48 AM CST ENDOSCOPY LAB Patient Name: Ayden Santos Procedure Date: 01/19/2021 11:48AM Date of : 1945 Admit Type: Outpatient Age: 75 Gender: Male Attending MD: Carson Roberts MD,PHD Room: [facility] ENDOSCOPY ROOM 02 Note Status: Finalized [...] The scope was passed under direct vision.The [id number] was introduced through the anusand advanced to [...] During normal business hours - [facility]: [phone]. After hours, evening, nights, weekends and holidays- Please call the hospital manufacturing machine operator at and ask for the GI fellow lead generation representative. Attending Participation: I personally performed the entire procedure. Electronically signed by Carson Roberts MD. Carson Roberts MD, PHD 01/19/2021 12:22:26 PM Number of Addenda: 0 Note Initiated On: 01/19/2021 11:48 AM us Carson Roberts MD PhD ENDOSCOPY PROCEDURES Anya l Result * POCT glucose (01/19/2021 10:19 AM REGISTERED DENTAL ASSISTANT) [facility] Signature Glucose, POC 162 70 - 199 mg/dL TAYLOR ZUNIGA Comment: Interpretive Data Glucose is assumed to be non-fasting. Fasting Glucose reference ranges are: 0 - 150 years: ??70 mg/dL - 99 mg/dL Current interpretive data was last revised on 2013. POC Performer [id number] TAYLOR ZUNIGA POC Device Number [id number] TAYLOR ZUNIGA Blood 01/19/2021 10:1 9 AM REGISTERED DENTAL ASSISTANT 01/19/2021 10:19 AM REGISTERED DENTAL ASSISTANT us Carson Roberts MD PhD LAB POCT ORDERABLES - DEV ICE Final Result [facility] [address] [facility] Department [place] [address] documented in this encounter Visit Diagnoses Diagnosis [...] solution 2.5 mg 2.5 mg, nebulization, Once (respiratory assistant), On Mon01/19/21 at 1115, For 1 dose, Pre-Op Given 01/19/2021 10:47 AM REGISTERED DENTAL ASSISTANT 2.5 mg ipratropium (ATROVENT) 0.02 % nebulizer solution 0.5 mg 0.5 mg, nebulization, Once (respiratory assistant), On Mon01/19/21 at 1115, For 1 dose, Pre-Op Given 01/19/2021 10:47 AM REGISTERED DENTAL ASSISTANT 0.5 mg ondansetron (ZOFRAN) injection 4 mg [...] Pre-Procedure (GI) Rate/Dose Verify 01/19/2021 11:46 AM REGISTERED DENTAL ASSISTANT 30 mL/hr New Bag 01/19/2021 10:23 AM REGISTERED DENTAL ASSISTANT 30 mL/hr 30 mL/hr documented in this encounter Discontinued Medications Medication Sig Discontinue Reason Start Date End Da te polyethylene glycol (GoLYTELY) 236-22.74-6.74 -5.86 gram solution Please follow instructions mailed from our office for your colonoscopy prep Stop Taking at Discharge 11/25/2020 01/19/2021 documented as of this encounter Active and Recently Administered Medications Times are shown in REGISTERED DENTAL ASSISTANT. 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 (respiratory assistant), On Mon01/19/21 at 1115, For 1 dose, Pre-Op 1047 (Given - Provid er: April Edmondson, WORK STATION SUPPORT SPECIALIST) ipratropium (ATROVENT) 0.02 % nebulizer solution 0.5 mg (COMPLETED)(Linked Group 1) 0.5 mg, nebulization, Once (respiratory assistant), On Mon01/19/21 at 1115, For 1 dose, [...] (COMPLETED)Jump to med 2.5 mg, nebulization, Once (respiratory assistant), On Mon01/19/21 at 1115, For 1 dose, Pre-Op And ipratropium (ATROVENT) 0.02 % nebulizer solution 0.5 mg (COMPLETED)Jump to med 0.5 mg, nebulization, Once (respiratory assistant), On Mon01/19/21 at 1115, For 1 dose, Pre-Op documented in this encounter Orders Medications Ordered That Dougie ht Not Have Been Administered Count Last Ordered Date First Ordered Date ondansetron (ZOFRAN) injection 4 mg 1 11/30 /2021 sodium chloride 0.9% flush 0.5-20 mL 1 12/23 documented in this encounter Care Teams Central Service Technician Relationship Specialty Start Date End Date Ronaldo Ulrich MD [address] [place] [address] PCP - General Internal Medicine 01/18/21 documented as of this encounter
--- OUTSIDE RECORDS SUMMARY | 2024-02-10 05:35 | XMS_ITS | Encounter Summary ---
Author Organization [facility] Medical Group Address [address] [place] [address] Care Team Providers Care Workers Compensation Consultant Name Role Phone Ronaldo Ulrich MD Primary Care Provider + Encounter Details Date Type Department Care Team (Late st Contact Info) Description 07/26/2021 Telephone [facility] Cardiology 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
--- OUTSIDE RECORDS SUMMARY | 2024-02-10 05:35 | XMS_ITS | Encounter Summary ---
Author Organization [facility] Medical Group Address [address] [place] [address] Care Team Providers Care Tree Trimming Supervisor Name Role Phone Unknown, Notinfile Primary Care Provider Unavail able Ronaldo Ulrich MD Primary Care Provider + Reason for Visit * Reason Onset Date Comments Medical Question/Miscellaneous 12/31/2020 Encounter Details Date Type Department Care Team (Late st Contact Info) Description 12/31/2020 Telephone [facility] [address] [place] [phone] Rickey Do MD [address] [place] [address] Medical Question/Miscellaneous Social History Tobacco Use Types [...] on file Legal Sex Male 11:37 AM SERVICE STATION MANAGER Gender Identity Not on file Sexual [...] as PCP. Done. Caller???s Call back #: [phone] Does message need to be routed?No ICE STATION MANAGER documented in this encounter Plan of Treatment Not on file documented as of this encounter Visit Diagnoses Not on filedocumented in this encounter Care Teams Tree Trimming Supervisor Relationship Specialty Start Date End Date Unknown, Notinfile PCP - General 12/31/20 01/17/21 Ronaldo Ulrich MD [address] [place] [address] PCP - General Internal Medicine 01/18/21 documented as of this encounter
--- OUTSIDE RECORDS SUMMARY | 2024-02-10 05:36 | XMS_ITS | Encounter Summary ---
Author Organization [facility] Medical Group Address [address] [place] [address] Care Team Providers Care Pilot Instructor Name Role Phone Rickey Do MD Primary Care Provider [phone] Reason for Visit * Reason Onset Date Comments [facility] [place]-Medical Question 01/01/2020 Encounter Details Date Type Department Care Team (Late st Contact Info) Description 01/01/2020 Telephone [facility] [address] [place] [address] Rickey Do MD [address] [place] [id number] [facility] [place]-Medical Question Social History Tobacco Use Types [...] on file Legal Sex Male 11:37 AM BACK PAD INSPECTOR Gender Identity Not on file Sexual Orientation Not on file 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 PAD INSPECTOR * Telephone Encounter - An Soto NP - 01/02/2020 6:32 PM CST Where would he like it sent or does he want a generic one? PAD INSPECTOR * Telephone Encounter - Milagros Nicolas MA - 01/01/2020 3:42 PM CST Called patient informed An was off today and a message will be sent to her for tomorrow... patient understood PAD INSPECTOR * Telephone Encounter - Cynthia Bradshaw - 01/01/2020 8:51 AM CST General Medical Question/Miscellaneous-Sent Message: Caller's Concern: Patient called and stated that he saw [facility] on 12.16.19 and spoke with her about sciatica pain and [facility] An recommended that the patient see physical therapist. Patient is requesting a script for physical therapy is mailed to his home address Caller's Callback #: [phone] Did you relay expectation for processing (up to 24 hours)? Yes PAD INSPECTOR documented in this encounter Plan of Treatment Not on file documented as of this encounter Visit Diagnoses Not on filedocumented in this encounter Care Teams Pilot Instructor Relationship Specialty Start Date End Date Rickey Do MD PCP - General 05/20/16 11/08/20 documented as of this encounter
--- OUTSIDE RECORDS SUMMARY | 2024-02-10 05:36 | XMS_ITS | Encounter Summary ---
Author Organization [facility] Medical Group Address [address] [place] [address] Care Team Providers Care Nanny Babysitter Name Role Phone Rickey Do MD Primary Care Provider Reason for Visit * Reason Onset Date Comments An Medical 04/25/2019 Encounter Details Date Type Department Care Team (Late st Contact Info) Description 04/25/2019 Telephone [facility] [address] [place] [phone] Rickey Do MD [address] [place] [address] An Medical Social History Tobacco Use Types [...] file Legal Sex Male 11:37 AM ENVIRONMENTAL FIELD OFFICE MANAGER Gender Identity Not on file Sexual [...] 04/25/2019 10:09 AM CST Please advise below. RONMENTAL FIELD OFFICE MANAGER * Telephone Encounter - Patricia Jasmine - [...] the evening. Please advise Caller's Callback #: [phone] Did you relay expectation for processing (up to 24 hours)? Yes RONMENTAL FIELD OFFICE MANAGER documented in this encounter Plan of Treatment Not on file documented as of this encounter Visit Diagnoses Not on filedocumented in this encounter Care Teams Nanny Babysitter Relationship Specialty Start Date End Date Rickey Do MD PCP - General 05/20/16 11/08/20 documented as of this encounter
--- OUTSIDE RECORDS SUMMARY | 2024-02-10 05:36 | XMS_ITS | Encounter Summary ---
Author Organization [facility] Medical Group Address [address] [place] [address] Care Team Providers Care Stem Sizer Name Role Phone Rickey Do MD Primary Care Provider [phone] Reason for Visit * Reason Onset Date Comments Hyperglycemia 04/08/2019 Encounter Details Date Type Department Care Team (Late st Contact Info) Description 04/08/2019 Nurse Triage [facility] [address] [place] [phone] Rickey Do MD [address] [place] [address] Social History Tobacco Use Types Packs/Day Years [...] on file Legal Sex Male 11:37 AM FORWARDER OPERATOR Gender Identity Not on file Sexual Orientation Not on file 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 Caller has NON-URGENT medication question about med that PCP prescribed and triager unable to answer question Protocols used: DIABETES - HIGH BLOOD [id number] S=HIGH BLOOD SUGARS AND A1C - QUESTIONS B=Patient was seen by An Soto on 03/07/2019 and went to Urologist last week and had A1C done andwas told it was 8.7 and that the urologist would send the results to Dr. Do. He is calling to ask does he need another appointment or medication adjustment. Please advise patient at [phone] A=DISPOSITION PER GUIDELINE=DISCUSS WITH PCP AND CALL BACK BY NURSE TODAY R=[facility]ARE/[facility] instructions given, verbalized understanding ARDER OPERATOR * Telephone Encounter - Mary Villa RN - 04/08/2019 10:25 AM FORWARDER OPERATOR Regarding: High Blood Sugars ----- Message from Danelle Spence sent at 04/08/2019 10:11 AM FORWARDER OPERATOR ----- Symptom Based Call Chief Complaint: High Blood sugars Duration: Had A1c last week 8.7 Appointment Details: Red Flag Symptom - Pt asking if he needs appt Caller's Callback #: [phone] Additional Comments: Pt asking if we received the A1c results from Dr Jany Hill at [facility]. Said it was 8.7 done last week, [...] Did you relay expectation for call back (hr specialist: Red Flag 10-15 min; non- emergent up to 3 hours)(Practice: Red Flag warm transfer; non-emergent up to 24 hours)? yes ARDER OPERATOR documented in this encounter Plan of Treatment Not on file documented as of this encounter Visit Diagnoses Not on filedocumented in this encounter Care Teams Stem Sizer Relationship Specialty Start Date End Date Rickey Do MD PCP - General 05/20/16 11/08/20 documented as of this encounter
--- OUTSIDE RECORDS SUMMARY | 2024-02-10 05:36 | XMS_ITS | Encounter Summary ---
Author Organization [facility] Address [address] [place] [address] Care Team Providers Care Offset Assistant Press Operator Name Role Phone Rickey Do MD Primary Care Provider [phone] Reason for Referral * Diagnostic Imaging (Routine) - Closed Specialty Diagnoses / Procedures Referred By Contac t Referred To Contact Diagnoses Fall, subsequent encounter Procedures XR Spine Lumbar Complete 4 Or More An Soto NP [address] [place] [address] Phone: tel: fax: [facility] [address] Referral ID Status Reason Start Date Expiration Date Visits Re quested Visits Authorized [id number] Closed 12/16/2019 01/14/2021 1 1 * Diagnostic Imaging (Routine) - Closed Specialty Diagnoses / Procedures Referred By Contac t Referred To Contact Diagnoses Fall, subsequent encounter Procedures XR Hip Right 2+ Vw An Soto NP [address] [place] [address] Phone: tel: fax: [facility] [address] Referral ID Status Reason Start Date Expiration Date Visits Re quested Visits Authorized [id number] Closed 12/16/2019 01/14/2021 1 1 Reason for Visit * Reason Comments Diabetes Encounter Details Date Type Department Care Team (Late st Contact Info) Description 12/16/2019 10:30 AM CDT Office Visit [facility] [address] [place] [phone] An Soto NP [address] [place] [address] Type 2 diabetes mellitus with [...] on file Legal Sex Male 11:37 AM WOOD SASH AND FRAME CARPENTER Gender Identity Not on file Sexual Orientation [...] this encounter Progress Notes * An Soto, CONTRACT DESIGNER - 12/16/2019 10:30 AM CDT Images from the original note were not included. Ayden Santos 1945 Chief Complaint Patient presents with ??? Diabetes 74 yo male, here for diabetes follow up. Morning blood sugars 200-220 range. Afternoon blood -550. Humalog sliding scale pre meals. Requiring 3 [...] file Gets together: Not on file Attends pentecostal service: Not on file Active member of [...] 180 tablet 2 ??? blood glucose diagnostic ([facility]) strip smbg bid ac 100 each [...] injections daily and would qualify for a [employer]com[employer] george blood glucose monitor.Will order through specialty [...] Fasting and before each of 3 meals. SASH AND FRAME CARPENTER SASH AND FRAME CARPENTER SASH AND FRAME CARPENTER documented in this encounter Miscellaneous Notes * Assessment & Plan Note - An Soto NP - 12/22/2019 8:09 AM WOOD SASH AND FRAME CARPENTER Associated Problem(s): Fall (Resolved 04/20/2020) Continues to half right hip pain 6 weeks post fall. Xray lumbar spine and right hip. SASH AND FRAME CARPENTER * Assessment & Plan Note - An Soto NP - 12/16/2019 11:19 AM CDT Associated Problem(s): Type 2 diabetes mellitus with circulatory disorder ([facility] ([facility]) 11/28/19 Hgb A1C above goal at 8.9% Increase Xultopy to 50 units once daily. Continue premeal short acting insulin. He is taking 4 insulin injections daily and would qualify for a Ente[employer]yle george blood glucose monitor.Will order through specialty pharmacy. Discussed weight loss and daily exercise as lifestyle changes that would improve Hgb A1C. Follow up 3 months. SASH AND FRAME CARPENTER SASH AND FRAME CARPENTER * Assessment & Plan Note - Phyllis Avila MA - 12/16/2019 10:50 AM CDT Associated Problem(s): Class 2 severe obesity due to excess calories with serious comorbidity and body mass index (BMI) of 37.0 to 37.9 in adult ([facility]) BMI Follow-up includes: nutrition counseling, [...] signed by: Lucho Laguna M.D. An Soto CONTRACT DESIGNER IMG XR PROCEDURES Final Result documented in [...] documented as of this encounter Care Teams Offset Assistant Press Operator Relationship Specialty Start Date End Date Rickey Do MD PCP - General 05/20/16 11/08/20 documented as of this encounter
--- OUTSIDE RECORDS SUMMARY | 2024-02-10 05:36 | XMS_ITS | Encounter Summary ---
Author Organization [facility] Address [address] [place] [address] Care Team Providers Care Piece Dye Worker Name Role Phone Rickey Do MD Primary Care Provider [phone] Reason for Visit * Reason Onset Date Comments Dr. Do-Records Request 03/09/2020 Encounter Details Date Type Department Care Team (Late st Contact Info) Description 03/09/2020 Telephone [facility] [address] [place] [phone] Rickey Do MD [address] [place] [id number] Dr. 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 AL COP * Telephone Encounter - Mila Up MA - 03/17/2020 4:14 PM CST This form is not in Dr. Do's faxcom. Can you please call the company and ask them to refax it please. AL COP * Telephone Encounter - Nohemi Baker - 03/17/2020 3:37 PM CST Please assist...did you receive this fax? AL COP * Telephone Encounter - Patricia Jasmine - 03/17/2020 2:20 PM CST Call Back-Sending Message Caller's Concern: Gretaradha with [facility] called and states new records request for testing frequency was faxed to the office yesterday, wants to know if office received it. Please advise Caller's Callback #: [phone] AL COP * Telephone Encounter - Vasu Bajwa - 03/09/2020 3:46 PM CST Info faxed to [facility] today per Phyllis. AL COP * Telephone Encounter - Nohemi Baker - 03/09/2020 3:29 PM CST Please assist. Did you get this fax? AL COP * Telephone Encounter - Cynthia Bradshaw - 03/09/2020 3:08 PM CST Records Request Status Update: Caller's Concern: funmilayo with [facility] sent a fax for a request for the last officevisit regarding the patient's free style george Date NETTA Form was faxed or mailed back to Practice: 03.06.20 Was NETTA form scanned into CHART>Media?: no Caller's Callback #: [phone] Additional Comments: Funmilayo stated that she will refax the request today. Funmilayo provided the fax number #[phone] Did you relay expectation for processing (allow 48 hours for faxed NETTA to be received; 7-10 business days for mailed NETTA to be received; if processing time has passed and message sent to practice, allow up to 24 hours for call back)? Yes AL COP AL COP documented in this encounter Plan of Treatment Not on file documented as of this encounter Visit Diagnoses Not on filedocumented in this encounter Care Teams Piece Dye Worker Relationship Specialty Start Date End Date Rickey Do MD PCP - General 05/20/16 11/08/20 documented as of this encounter
--- OUTSIDE RECORDS SUMMARY | 2024-02-10 05:36 | XMS_ITS | Encounter Summary ---
Author Organization [facility] Address [address] [place] [address] Care Team Providers Care Cigarette Machine Operator Name Role Phone Rickey Do MD Primary Care Provider [phone] Reason for Visit * Reason Comments Coronary Artery Disease Encounter Details Date Type Department Care Team (Late st Contact Info) Description 09/03/2020 10:45 AM CDT Office Visit [facility] Cardiology [address] [place] [address] Farrukh Jiménez MD [address] [place] [address] [address] [place] [address] Coronary artery disease involving [place] coronary artery of [place] heart without angina pectoris (Primary Dx); Hypertension [...] on file 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 I made no change in his excellent medical regimen today. I asked him to follow up with me annually, or sooner if needed. I again advised him to diet and exercise regularly. Hypertension associated with diabetes ([facility]/HCC) Assessment & Plan: Blood pressure is well controlled. Continue same therapy. Continue diet and exercise. 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 2 diabetes mellitus (CMS/HCC) Assessment & Plan: Lipids are well controlled. Continue statin therapy. documented in this encounter Miscellaneous Notes * Assessment & Plan Note - Farrukh Jiménez MD - 09/03/2020 11:10 AM CDT Associated Problem(s): 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 2 diabetes mellitus (CMS/HCC) ([facility]) Lipids are well controlled. Continue statin therapy. * Assessment & Plan Note - Farrukh Jiménez MD - 09/03/2020 11:10 AM CDT Associated Problem(s): Hypertensive heart disease without heart failure Blood pressure is well controlled. Continue same therapy. Continue diet and exercise. * Assessment & Plan Note - Farrukh Jiménez MD - 09/03/2020 11:10 AM CDT Associated Problem(s): Coronary artery disease involving [place] coronary artery of [place] heart without angina pectoris Stable, mild coronary [...] Visit Diagnoses Diagnosis Coronary artery disease involving [place] coronary artery of [place] heart without angina pectoris- Primary Hypertension associated [...] 09/17/2020 added in this encounter Care Teams Cigarette Machine Operator Relationship Specialty Start Date End Date Rickey Do MD PCP - General 05/20/16 11/08/20 documented as of this encounter
--- OUTSIDE RECORDS SUMMARY | 2024-02-10 05:36 | XMS_ITS | Encounter Summary ---
Author Organization [facility] Address [address] [place] [address] Care Team Providers Care Mobile Tester Name Role Phone Rickey Do MD Primary Care Provider [phone] Reason for Visit * Reason Comments Medicare Wellness Encounter Details Date Type Department Care Team (Late st Contact Info) Description 04/17/2020 10:30 AM ASSISTANT SUPERINTENDENT FOR CURRICULUM Office Visit [facility] [address] [place] [address] [address] [place] [address] An Soto, [employer] WEBSPHERE PORTAL DEVELOPER [address] [facility] [address] [place] [address] Encounter for Medicare annual wellness exam (Primary Dx); 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 mellitus ([facility]/HCC); Obstructive sleep apnea syndrome; Colon polyps; Type 2 diabetes mellitus with circulatory disorder (CMS/HCC); Coronary artery disease involving swinomish coronary artery of swinomish heart without angina pectoris; Bleeding external hemorrhoids; [...] file Legal Sex Male 11:37 AM ASSISTANT SUPERINTENDENT FOR CURRICULUM Gender Identity Not on file Sexual Orientation Not on file 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 Not on file documented as of this encounter Last Filed Vital Signs Vital Sign Reading Time Taken Comments Blood Pressure 152/62 04/17/2020 10:44 AM ASSISTANT SUPERINTENDENT FOR CURRICULUM Pulse 84 04/17/2020 10:44 AM ASSISTANT SUPERINTENDENT FOR CURRICULUM Temperature - - Respiratory Rate - - Oxygen Saturation 96% 04/17/2020 10:44 AM ASSISTANT SUPERINTENDENT FOR CURRICULUM Inhaled Oxygen Concentration - - Weight 117.9 kg (260 lb) 04/17/2020 10:44 AM ASSISTANT SUPERINTENDENT FOR CURRICULUM Height 180.3 cm (5' 10.98 ) 04/17/2020 10:44 AM ASSISTANT SUPERINTENDENT FOR CURRICULUM Body Mass Index 36.28 04/17/2020 10:44 AM ASSISTANT SUPERINTENDENT FOR CURRICULUM documented in this encounter Ordered Prescriptions Prescription [...] Directive (Living Will) and/or Durable Power of Supervisor Fertilizer Processing?: Yes - Please bring a copy to [...] colon cancer ??? Coronary artery disease involving swinomish coronary artery of swinomish heart without angina pectoris ??? Abnormal findings [...] Gatherings with Friends and Family: ??? Attends Sikhism Services: ??? Active Member of Clubs or [...] more falls in the last year: No [facility] Status Review of Systems Constitutional: Negative. Negative [...] as PCP - General Primary Pharmacy/DME suppliers: [id number] - [place], [place] - [address] [facility] [address] [facility] [id number] [facility] - [place], [place] - [address] [place] [address] [address] [facility] [address] [facility] [address] [facility] All Sites - [place], [place] - [address] [facility] [address] [place] [address] Detection of Cognitive Impairment: The patient does not have cognitive impairment based on direct observation, discussion with patientor family, or review of medical records. Advanced Directive Durable Power of Supervisor Fertilizer Processing: Discussed Today: Living Will: Discussed Today: Assessment and Plan: Diagnoses and all orders for this visit: Encounter for Medicare annual wellness exam (Primary) - PSA screen; Future 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 mellitus ([facility]) Assessment & Plan: Numbness and tingling in the feet bilaterally, worse at night. Protective sensation is still intactby monofilament. Reviewed diabetic foot care Obstructive sleep apnea syndrome Colon polyps Assessment & Plan: Three year surveillance interval recommended by GI. Schedule colonoscopy. Type 2 diabetes mellitus with circulatory disorder ([facility]) Assessment & Plan: Diabetes is not well [...] Future - eGFR Coronary artery disease involving swinomish coronary artery of swinomish heart without angina pectoris Assessment & Plan: [...] Colorectal Surgery; Future Hypertension associated with diabetes ([facility]/HCC) Atherosclerosis of aorta ([facility]) Assessment & Plan: Continue risk factor mangement. 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 2 diabetes mellitus ([facility]) Assessment & Plan: Established CAD. LDL 42, [...] the plan were completed as outlined by [facility]. A copy of the prevention plan was [...] Rickey Do MD at 04/23/2020 3:00 PM ASSISTANT SUPERINTENDENT FOR CURRICULUM STANT SUPERINTENDENT FOR CURRICULUM STANT SUPERINTENDENT FOR CURRICULUM documented in this encounter Miscellaneous Notes * Assessment & Plan Note - An Soto NP - 04/20/2020 5:45 PM ASSISTANT SUPERINTENDENT FOR CURRICULUM Associated Problem(s): Medicare annual wellness visit, subsequent [...] of regular physical examinations for health maintenance. STANT SUPERINTENDENT FOR CURRICULUM * Assessment & Plan Note - An Soto NP - 04/20/2020 5:44 PM ASSISTANT SUPERINTENDENT FOR CURRICULUM Associated Problem(s): 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 2 diabetes mellitus (CMS/HCC) (HCC) Established CAD. LDL 42, which is at goal. Continue simvastatin. Triglycerides elevated at 182. Discussed the importance of weight loss for lowering triglycerides. STANT SUPERINTENDENT FOR CURRICULUM * Assessment & Plan Note - An Soto NP - 04/20/2020 5:36 PM ASSISTANT SUPERINTENDENT FOR CURRICULUM Associated Problem(s): 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 mellitus (CMS/HCC) ([facility]) Numbness and tingling in the feet bilaterally, worse at night. Protective sensation is still intactby monofilament. Reviewed diabetic foot care STANT SUPERINTENDENT FOR CURRICULUM * Assessment & Plan Note - An Soto NP - 04/20/2020 5:33 PM ASSISTANT SUPERINTENDENT FOR CURRICULUM Associated Problem(s): Coronary artery disease involving swinomish coronary artery of swinomish heart without angina pectoris Nonobstructing CAD. No angina. Preserved EF 60-70%. Continue aspirin, beta priscilla and statin for secondary prevention. STANT SUPERINTENDENT FOR CURRICULUM * Assessment & Plan Note - An Soto NP - 04/17/2020 11:02 AM ASSISTANT SUPERINTENDENT FOR CURRICULUM Associated Problem(s): Atherosclerosis of aorta (CMS/HCC) ([facility]) Continue risk factor mangement. STANT SUPERINTENDENT FOR CURRICULUM * Assessment & Plan Note - An Soto NP - 04/17/2020 11:00 AM ASSISTANT SUPERINTENDENT FOR CURRICULUM Associated Problem(s): Bleeding external hemorrhoids (Resolved 02/24/2022) Refer to colorectal surgery. Continue stool softener and prunes. Anusul HC suppositories as needed. STANT SUPERINTENDENT FOR CURRICULUM * Assessment & Plan Note - An Soto NP - 04/17/2020 10:58 AM ASSISTANT SUPERINTENDENT FOR CURRICULUM Associated Problem(s): Type 2 diabetes mellitus with circulatory disorder (CMS/HCC) ([facility]) Diabetes is not well controlled. Increase Xultopy [...] will refer to endocrinology for insulin pump STANT SUPERINTENDENT FOR CURRICULUM STANT SUPERINTENDENT FOR CURRICULUM STANT SUPERINTENDENT FOR CURRICULUM * Assessment & Plan Note - Olivia Daniel MA - 04/17/2020 10:49 AM CSTAssociated Problem(s): Class 2 severe obesity due to excess calories with serious comorbidity and body mass index (BMI) of 37.0 to 37.9 in adult ([facility]) BMI Follow-up includes: nutrition counseling, exercise counseling and education provided. STANT SUPERINTENDENT FOR CURRICULUM * Assessment & Plan Note - An Soto NP - 04/17/2020 10:47 AM ASSISTANT SUPERINTENDENT FOR CURRICULUM Associated Problem(s): Colon polyps (Resolved 08/19/2021) Three year surveillance interval recommended by GI. Schedule colonoscopy. STANT SUPERINTENDENT FOR CURRICULUM documented in this encounter Plan of Treatment Not on file documented as of this encounter Procedures Procedure Name Priority Date/Time Associated Diagnosis Comments EGFR Routine 04/17/2020 11:14 AM ASSISTANT SUPERINTENDENT FOR CURRICULUM Type 2 diabetes mellitus with circulatory disorder ([facility]) DIFFERENTIAL AUTO Routine 04/17/2020 11: 14 AM ASSISTANT SUPERINTENDENT FOR CURRICULUM Coronary artery disease involving swinomish coronary artery of swinomish heart without angina pectoris PSA SCREEN Routine 04/17/2020 11:14 AM ASSISTANT SUPERINTENDENT FOR CURRICULUM Encounter for Medicare annual wellness exam CBC WITH AUTO DIFFERENTIAL Routine 04/17/2020 11:14 AM ASSISTANT SUPERINTENDENT FOR CURRICULUM Coronary artery disease involving swinomish coronary artery of swinomish heart without angina pectoris HEMOGLOBIN A1C Routine 04/17/2020 11:14 AM ASSISTANT SUPERINTENDENT FOR CURRICULUM Type 2 diabetes mellitus with circulatory disorder (CMS/HCC) LIPID PANEL Routine 04/17/2020 11:14 AM ASSISTANT SUPERINTENDENT FOR CURRICULUM 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 2 diabetes mellitus (CMS/HCC) COMPREHENSIVE METABOLIC PANEL Routine 04/17/2020 11:14 AM ASSISTANT SUPERINTENDENT FOR CURRICULUM Type 2 diabetes mellitus with circulatory disorder (CMS/HCC) documented in this encounter Results * eGFR (04/17/2020 11:14 AM ASSISTANT SUPERINTENDENT FOR CURRICULUM) [facility] Signature eGFR 72 mL/min/1.7 3 m2 TAYLOR [...] 2020 Blood specimen (specimen) 04/17/2020 11:14 AM ASSISTANT SUPERINTENDENT FOR CURRICULUM 04/17/2020 2:19 PM ASSISTANT SUPERINTENDENT FOR CURRICULUM us An Soto [employer] WEBSPHERE PORTAL DEVELOPER LAB BLOOD ORDERABLES Final Res ult [facility] [address] [facility]. Department [place] [address] * (ABNORMAL) Differential, auto (04/17/2020 11:14 AM ASSISTANT SUPERINTENDENT FOR CURRICULUM) Neutrophil abs 7.8(H) 1.7 - 6.5 K/cumm [...] 2017. Imm gran pct 0.4 % [facility] Comment: Interpretive Data Percent cell count [...] on 2017. Monocyte pct 10.3 % [facility] Comment: Interpretive Data Percent cell count [...] 2017. Blood specimen (specimen) 04/17/2020 11:14 AM ASSISTANT SUPERINTENDENT FOR CURRICULUM 04/17/2020 2:19 PM ASSISTANT SUPERINTENDENT FOR CURRICULUM us An Soto [employer] WEB[employer] PORTAL DEVELOPER LAB BLOOD ORDERABLES Final Res ult [facility] [address] [facility]. Department [place] [address] * PSA screen (04/17/2020 11:14 AM ASSISTANT SUPERINTENDENT FOR CURRICULUM) PSA-Total 3.41 <=6.20 ng/mL TAYLOR ZUNIGA Comment: Interpretive Data ?AGE ? SEX ?REFERENCE INTERVAL 0 minutes-150 years ?Female ?None 0 minutes-49 years ? Male ?None ? 50-59 years ? Male ?0-3.90 ? 60-69 years ? Male ?0-5.40 ? 70-79 years ? Male ?0-6.20 ? 80-150 years ?Male ?0-6.20 Current interpretive data last revised 2017. Testing performed by: [facility], [facility] [place]., [address] Blood specimen (specimen) 04/17/2020 11:14 AM ASSISTANT SUPERINTENDENT FOR CURRICULUM 04/17/2020 3:41 PM ASSISTANT SUPERINTENDENT FOR CURRICULUM us An Soto [employer] WE[employer] PORTAL DEVELOPER LAB BLOOD ORDERABLES Final Res ult T[facility]OR [facility] [address] [facility]. Department [place] [address] * Lipid panel (04/17/2020 11:14 AM ASSISTANT SUPERINTENDENT FOR CURRICULUM) Cholesterol 123 30 - 199 mg/dL TAYLOR [...] ZUNIGA Blood specimen (specimen) 04/17/2020 11:14 AM ASSISTANT SUPERINTENDENT FOR CURRICULUM 04/17/2020 2:19 PM ASSISTANT SUPERINTENDENT FOR CURRICULUM Narrative TAYOLR ZUNIGA - 04/17/2020 3:24 PM ASSISTANT SUPERINTENDENT FOR CURRICULUM Has the patient been fasting for 8 hours or more?->Yes An Soto NP LAB BLOOD ORDERABLES Final Res ult [facility] [address] [facility]. Department [place] [address] * (ABNORMAL) Hemoglobin A1c (04/17/2020 11:14 AM ASSISTANT SUPERINTENDENT FOR CURRICULUM) Hgb A1C 8.4(H) 4.0 - 5.6 % TAYLOR ZUNIGA Comment:Testing performed by : [facility], [address] [place] [address]., [id number] Estimated Average Glucose 194 mg/dL TAYLOR ZUNIGA Comment: The ADA recommends reporting an estimated Average Glucose (eAG) with all Hemoglobin A1c results using the equation derived from a study of 507 normal and diabetic adults. ??Minority populations were underrepresented and children were not included. ?? (Diabetes Care 31:9878-1673, 2008). ??The eAG is not equivalent to a fasting glucose. Testing performed by: [facility], [address] [place] [address]., [id number] Blood specimen (specimen) 04/17/2020 11:14 AM ASSISTANT SUPERINTENDENT FOR CURRICULUM 04/17/2020 3:41 PM ASSISTANT SUPERINTENDENT FOR CURRICULUM An Soto [employer] WEB[employer] PORTAL DEVELOPER LAB BLOOD ORDERABLES Final Res ult Performing Organization Address [facility] Co de Phone Number TAYLOR ZUNIGA [address] [facility] [place], [place] [id number] * (ABNORMAL) CBC with auto differential (04/17/2020 11:14 AM ASSISTANT SUPERINTENDENT FOR CURRICULUM) Pathologist [facility] WBC 11.2(H) 3.8 - 9.9 K/cumm [facility] Hgb 14.1 13.0 - 17.5 g/dL [facility] Hct 43.4 38.9 - 50.3 % [facility] Plt 337 150 - 400 K/cumm [facility] MPV 10.9 9.1 - 12.3 fL [facility] RBC 4.76 4.30 - 5.80 M/cumm [facility] MCV 91.2 81.3 - 96.4 fL [facility] MCH 29.6 27.1 - 33.3 pg [facility] MCHC 32.5 32.3 - 35.7 g/dL [facility] RDW CV 13.8 11.1 - 14.9 % [facility] RDW SD 46.5 35.7 - 48.1 fL [facility] NRBC abs 0.00 0.00 - 0.01 K/cumm [facility] Blood specimen (specimen) 04/17/2020 11:14 AM ASSISTANT SUPERINTENDENT FOR CURRICULUM 04/17/2020 2:19 PM ASSISTANT SUPERINTENDENT FOR CURRICULUM An Soto [employer] PORTAL DEVELOPER LAB BLOOD ORDERABLES Final Res ult Performing Organization Address [facility]/ZIP Co de Phone Number TAYLOR ZUNIGA [address] [facility] [place] [address] * Comprehensive metabolic panel (04/17/2020 11:14 AM ASSISTANT SUPERINTENDENT FOR CURRICULUM) Sodium 137 135 - 145 mmol/L CERNER [...] [facility] Blood specimen (specimen) 04/17/2020 11:14 AM ASSISTANT SUPERINTENDENT FOR CURRICULUM 04/17/2020 2:19 PM ASSISTANT SUPERINTENDENT FOR CURRICULUM us An Soto [employer] PORTAL DEVELOPER LAB BLOOD ORDERABLES Final Res ult TAYLOR ZUNIGA [address] [facility]. [place] [address] documented in this encounter Visit Diagnoses Diagnosis Encounter for Medicare annual wellness exam- Primary 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 mellitus (CMS/HCC) (HCC) Obstructive sleep apnea syndrome Obstructive sleep apnea (adult) (pediatric) Colon polyps Benign neoplasm of colon 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) Coronary artery disease involving swinomish coronary artery of swinomish heart without angina pectoris Bleeding external hemorrhoids [...] 1 added in this encounter Care Teams Mobile Tester Relationship Specialty Start Date End Date Rickey Do MD PCP - General 05/20/16 11/08/20 documented as of this encounter
--- OUTSIDE RECORDS SUMMARY | 2024-02-10 05:36 | XMS_ITS | Encounter Summary ---
Author Organization [facility] Address [address] [facility] [address] [place] [address] Care Team Providers Care Piggery Worker Name Role Phone Rickey Do MD Primary Care Provider [phone] Reason for Visit * Reason Comments Diabetes Encounter Details Date Type Department Care Team (Late st Contact Info) Description 09/17/2020 10:30 AM CDT Office Visit [facility] [address] [place] [address] [address] [place] [address] An Soto, FLOORING PROFESSIONAL [address] [facility] [address] [place] [address] Type 2 diabetes mellitus with circulatory disorder (CMS/HCC) ([facility]) (Primary Dx); Morbid obesity with BMI of 45.0-49.9, adult (CMS/HCC) (HCC); Sciatica of right side; 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 mellitus (CMS/HCC) (HCC); Colon polyps; Coronary artery disease involving northwestern shoshone coronary artery of northwestern shoshone heart without angina pectoris; Hypertension associated with diabetes ([facility]) Social History Tobacco Use Types Packs/Day Years [...] on file 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 Attends Orthodox Services: ??? Active Member of Clubs or [...] 30 tablet 11 ??? blood glucose diagnostic (FinalCAD VERIO) strip smbg bid ac 100 each [...] by mouth daily ??? flash glucose sensor (WagglStyle Erick 2 Sensor) kit Change sensor every [...] Type 2 diabetes mellitus with circulatory disorder ([facility]) (Primary) Assessment & Plan: Fasting blood sugars [...] Morbid obesity with BMI of 45.0-49.9, adult ([facility]) Assessment & Plan: BMI Follow-up includes: nutrition counseling, exercise counseling and education provided. Sciatica of right side Assessment & Plan: Sciatica right side, limiting activity. No red flag signs. Referred for physical therapy. Orders: - Ambulatory referral order to Physical Therapy -; Future 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 mellitus ([facility]/HCC) Assessment & Plan: Worsening neuropathy with nighttime symptoms. Start gabapentin 100-300 mg at bedtime. Discussed that improving blood sugar control would decrease neuropathy. Colon polyps - Ambulatory referral to Gastroenterology; Future Coronary artery disease involving northwestern shoshone coronary artery of northwestern shoshone heart without angina pectoris Assessment & Plan: [...] ([facility]) Worsening neuropathy with nighttime symptoms. Start gabapentin 100-300 mg at bedtime. Discussed that improving blood sugar control would decrease neuropathy. * Assessment & Plan Note - An Soto NP - 09/17/2020 3:44 PM CDT Associated Problem(s): Type 2 diabetes mellitus with circulatory disorder ([facility]) ([facility]) Fasting blood sugars are trending lower although [...] CDT Associated Problem(s): Coronary artery disease involving northwestern shoshone coronary artery of northwestern shoshone heart without angina pectoris Nonobstructing CAD. No [...] % TAYLOR ZUNIGA Comment:Testing performed by : [facility], [address] [place] [address]., [id number] Estimated Average Glucose 189 mg/dL TAYLOR ZUNIGA Comment: The ADA recommends reporting an estimated Average Glucose (eAG) with all Hemoglobin A1c results using the equation derived from a study of 507 normal and diabetic adults. ??Minority populations were underrepresented and children were not included. ?? (Diabetes Care 31:8014-3889, 2008). ??The eAG is not equivalent to a fasting glucose. Testing performed by: [facility], [address] [place] [address]., [id number] Blood specimen (specimen) 09/17/2020 11:19 AM CDT 09/17/2020 4:00 PM CDT us An Soto NP LAB BLOOD ORDERABLES Final Res ult [facility] [address] [facility]. [place] [address] * (ABNORMAL) Albumin Creatinine Ratio, Urine (09/17/2020 11:19 AM CDT) Albumin Ur 157.8 mg/L TAYLOR ZUNIGA Comment: Interpretive Data No reference range established. Current interpretive data was last revised 2018. Testing performed by: [facility], [address] [place] [address]., [id number] Creatinine Ur 44.9 mg/dL TAYLOR ZUNIGA Comment: Interpretive Data No reference range established. Current interpretive data was last revised 2018. Testing performed by: [facility], [address] [place] [address]., [id number] Albumin Creatinine Ratio, Ur 351(H) 1 - 29 mg/g TAYLOR ZUNIGA Comment:Testing performed by : [facility], [address] [place] [address]., [id number] Urine 09/17/2020 11:1 9 AM CDT 09/17/2020 4:01 PM CDT us An Soto NP LAB URINE ORDERABLES Final Res ult Performing Organization Address City/State/[facility] Co de Phone Number [facility] [address] [facility]. Department [place] [address] documented in this encounter Visit Diagnoses Diagnosis 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)- Primary Morbid obesity with BMI of 45.0-49.9, adult (HCC) Sciatica of right side 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 mellitus (CMS/HCC) (HCC) Colon polyps Benign neoplasm of colon Coronary artery disease involving northwestern shoshone coronary artery of northwestern shoshone heart without angina pectoris Hypertension associated with [...] documented as of this encounter Care Teams Piggery Worker Relationship Specialty Start Date End Date Rickey Do MD PCP - General 05/20/16 11/08/20 documented as of this encounter
--- OUTSIDE RECORDS SUMMARY | 2024-02-10 05:36 | XMS_ITS | Encounter Summary ---
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
--- OUTSIDE RECORDS SUMMARY | 2024-02-10 05:36 | XMS_ITS | Encounter Summary ---
Author Organization [facility] Address [address] [place] [address] Phone Care Team Providers Care Sediment Remediation Consultant Name Role Phone Rickey Do MD Primary Care Provider [phone] Reason for Visit * Reason Onset Date Comments referral Colon 04/24/2020 Encounter Details Date Type Department Care Team (Late st Contact Info) Description 04/24/2020 Telephone [facility] Gastroenterology [address] [facility] Medical Office Building [address] [address] Lucia Figueroa MA referral Colon [...] on file Legal Sex Male 11:37 AM EXPLOSIVE ORDNANCE SPECIALIST Gender Identity Not on file Sexual Orientation Not on file 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 Do. Pt wants to wait until after he is vaccinated. Reminder set to call for August 2020. OSIVE ORDNANCE SPECIALIST documented in this encounter Plan of Treatment Not on file documented as of this encounter Visit Diagnoses Not on filedocumented in this encounter Care Teams Sediment Remediation Consultant Relationship Specialty Start Date End Date Rickey Do MD PCP - General 05/20/16 11/08/20 documented as of this encounter
--- OUTSIDE RECORDS SUMMARY | 2024-02-10 05:36 | XMS_ITS | Encounter Summary ---
Author Organization [facility] Address [address] [place] [address] Care Team Providers Care Piano Refinisher Name Role Phone Rickey Do MD Primary Care Provider [phone] Reason for Referral * Diagnostic Imaging (Routine) - Closed Specialty Diagnoses / Procedures Referred By Contac t Referred To Contact Diagnoses Fall, subsequent encounter Procedures XR Hip Right 2+ Vw An oSto NP [address] [place] [address] Phone: tel: fax: [facility] [address] Referral ID Status Reason Start Date Expiration Date Visits Re quested Visits Authorized [id number] Closed 12/16/2019 01/14/2021 1 1 * Diagnostic Imaging (Routine) - Closed Specialty Diagnoses / Procedures Referred By Contac t Referred To Contact Diagnoses Fall, subsequent encounter Procedures XR Spine Lumbar Complete 4 Or More An Soto NP [address] [place] [address] Phone: tel: fax: [facility] [address] Referral ID Status Reason Start Date Expiration Date Visits Re quested Visits Authorized [id number] Closed 12/16/2019 01/14/2021 1 1 Reason for Visit * Diagnostic Imaging (Routine) - Closed Specialty Diagnoses / Procedures Referred By Jp buckner Referred To Contact Diagnoses Fall, subsequent encounter Procedures XR Spine Lumbar Complete 4 Or More An Soto NP [address] [place] [address] Phone: tel: fax: [phone] Referral ID Status Reason Start Date Expiration Date Visits Re quested Visits Authorized [id number] Closed 12/16/2019 01/14/2021 1 1 Encounter Details Date Type Department Care Team (Latest Contact Info) Description 12/16/2019 11:36 AM CDT - 12/16/2019 11:59 PM CDT Hospital Encounter [facility] [address] [facility] [address] [place] [address] Rickey Do MD [address] [place] [address] An Soto NP [address] [place] [address] Fall, subsequent encounter Discharge Disposition: Discharge to [...] on file 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 An Soto INTERNAL AFFAIRS INVESTIGATOR IMG XR PROCEDURES Final Result * XR [...] signed by: Lucho Laguna M.D. An Soto INTERNAL AFFAIRS INVESTIGATOR IMG XR PROCEDURES Final Result documented in this encounter Visit Diagnoses Diagnosis Fall, subsequent encounter documented in this encounter Care Teams Piano Refinisher Relationship Specialty Start Date End Date Rickey Do MD PCP - General 05/20/16 11/08/20 documented as of this encounter
--- OUTSIDE RECORDS SUMMARY | 2024-02-10 05:36 | XMS_ITS | Encounter Summary ---
Author Organization [facility] Address [address] [facility] [address] [place] [address] Care Team Providers Care Assurance Auditor Name Role Phone Rickey Do MD Primary Care Provider [phone] Reason for Visit * Reason Comments Diabetes Encounter Details Date Type Department Care Team (Late st Contact Info) Description 06/19/2020 10:30 AM CDT Office Visit 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 Attends Religion Services: ??? Active Member of Clubs or [...] diabetes mellitus with circulatory disorder ([facility]) Assessment & Plan: Blood sugars are much [...] his Lifeline screening Hypertension associated with diabetes ([facility]) Assessment & Plan: Blood pressure is well controlled. Reviewed low sodium diet and hidden sources of sodium in the diet to avoid. Coronary artery disease involving [place] coronary artery of [place] heart without angina pectoris Assessment & Plan: [...] CDT Associated Problem(s): Coronary artery disease involving [place] coronary artery of [place] heart without angina pectoris Stable CAD. Preserved [...] diabetes mellitus with circulatory disorder ([facility]/HCC) ([facility]) Blood sugars are much better controlled which [...] Unspecified essential hypertension Coronary artery disease involving [place] coronary artery of [place] heart without angina pectoris BMI 35.0-35.9,adult documented in this encounter Discontinued Medications Medication Sig Discontinue Reason Start Date End Da te varicella-zoster (Shingrix, PF,) 50 mcg/0.5 mL vaccine Shingrix (PF) 50 mcg/0.5 mL intramuscular suspension, kit 06/19/2020 documented as of this encounter Care Teams Assurance Auditor Relationship Specialty Start Date End Date Rickey Do MD PCP - General 05/20/16 11/08/20 documented as of this encounter
--- OUTSIDE RECORDS SUMMARY | 2024-02-10 05:36 | XMS_ITS | Encounter Summary ---
Author Organization [facility] Address [address] [facility] [address] [place] [address] Care Team Providers Care Asphalt Surface Heater Operator Name Role Phone Rickey Do MD Primary Care Provider [phone] Reason for Visit * Reason Onset Date Comments SPEED WINDER An Medical Question 05/08/2019 Encounter Details Date Type Department Care Team (Late st Contact Info) Description 05/08/2019 Telephone [facility] [address] [facility] [address] [place] [address] An Soto, SPEED WINDER [address] [facility] [address] [place] [address] SPEED WINDER An Medical Question Social History Tobacco Use [...] file 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 Please advise. Caller's Callback #: [phone] * Telephone Encounter - Bhumika Keene MA [...] only Lantus? Please advise. Caller's Callback #: [phone] Did you relay expectation for processing (up to 24 hours)? Yes documented in this encounter Plan of Treatment Not on file documented as of this encounter Visit Diagnoses Not on filedocumented in this encounter Care Teams Asphalt Surface Heater Operator Relationship Specialty Start Date End Date Rickey Do MD PCP - General 05/20/16 11/08/20 documented as of this encounter
--- OUTSIDE RECORDS SUMMARY | 2024-02-10 05:36 | XMS_ITS | Encounter Summary ---
Author Organization [facility] Address [address] [facility] [address] [place] [address] Care Team Providers Care Glass Ribbon Machine Operator Name Role Phone Rickey Do MD Primary Care Provider [phone] Reason for Visit * Reason Onset Date Comments Rx clarification 12/25/2019 Encounter Details Date Type Department Care Team (Late st Contact Info) Description 12/25/2019 Telephone [facility] [address] [facility] [address] [place] [id number] Rickey Do MD [address] [place] [address] Rx clarification Social History Tobacco Use Types [...] file 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 NCIAL COACH * Telephone Encounter - An Soto NP - 12/26/2019 4:26 PM CST Only 500 mg per day NCIAL COACH * Telephone Encounter - An Soto NP - 12/26/2019 6:34 AM CST XR please NCIAL COACH * Telephone Encounter - Ijeoma Gustafson RN - 12/25/2019 10:46 AM FINANCIAL COACH Received phone call from pharmacist at [employer] (ref # [id number], ph: [phone]). He would like to clarify that we inteneded to send the Metformin immediate release 500mg as patient had previouslybeen on Metformin XR 500mg. I did not see a documented change in his most recent office visit note, 12.16.19. Please clarify ifpt is to start the IR 500mg or continue the XR? NCIAL COACH NCIAL COACH documented in this encounter Plan of Treatment Not on file documented as of this encounter Visit Diagnoses Not on filedocumented in this encounter Discontinued Medications Medication Sig Discontinue Reason Start Date End Da te metFORMIN (GLUCOPHAGE) 500 mg tablet Take 1 tablet (500 mg total) by mouth daily with breakfast Dose adjustment 12/16/2019 12/26/2019 documented as of this encounter Care Teams Glass Ribbon Machine Operator Relationship Specialty Start Date End Date Rickey Do MD PCP - General 05/20/16 11/08/20 documented as of this encounter
--- OUTSIDE RECORDS SUMMARY | 2024-02-10 05:36 | XMS_ITS | Encounter Summary ---
Author Organization [facility] Address [address] [facility] [address] [place] [address] Care Team Providers Care Show Operations Supervisor Name Role Phone Rickey Do MD Primary Care Provider [phone] Reason for Visit * Reason Comments Follow-up Encounter Details Date Type Department Care Team (Late st Contact Info) Description 09/05/2019 10:15 AM CDT Office Visit [facility] [address] [place] [address] [address] [place] [address] An Soto, ELECTRONIC LAB TECHNICIAN [address] [facility] [address] [place] [address] Type 2 diabetes mellitus with circulatory disorder (CMS/HCC) (Primary Dx); Atherosclerosis of aorta (CMS/HCC); Morbid obesity (CMS/HCC); 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 2 diabetes mellitus (CMS/HCC); 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 mellitus (CMS/HCC); Obstructive sleep apnea syndrome; Grade II hemorrhoids; Coronary artery disease involving [place] coronary artery of [place] heart without angina pectoris; Adrenal cyst (CMS/HCC); [...] on file 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 [id number] fasting, 130 pre supper. He has early [...] file Gets together: Not on file Attends episcopalian service: Not on file Active member of [...] 2 diabetes mellitus with circulatory disorder ([facility]) (Primary) Assessment & Plan: Blood sugars are better controlled with use of sliding scale short-acting insulin. They are still above goal most of the day. Check hemoglobin A1c to assess control. Increase exercise to 6/7 days a week as suggested by his lead refinery supervisor. Discussed that this will help to control blood sugars. Extensive discussion of low-carbohydrate diet. He continues to find this hard to follow due to eating all of his meals out. He is really not willing to consider cooking at home. Discussed low carb ideas for dining out. Orders: - Albumin Creatinine Ratio, Urine; Future Atherosclerosis of aorta ([facility]) Assessment & Plan: Discussed importance of lipid management and blood pressure controlled prevent progression. Morbid obesity ([facility]) Assessment & Plan: BMI 35.8 with serious comorbidities of type 2 diabetes, fatty liver, CAD, hyperlipidemia 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 2 diabetes mellitus ([facility]) - Lipid panel; Future 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 mellitus ([facility]) Assessment & Plan: Early diabetic neuropathy with [...] to Colorectal surgery. Coronary artery disease involving [place] coronary artery of [place] heart without angina pectoris Assessment & [...] associated with type 2 diabetes mellitus ([facility]) ([facility]) Early diabetic neuropathy with paresthesias. Sensation to monofilament is intact. He notes that he has less sensation in his feet and sometimes has a pins and needles feeling. Discussed importance of controlling blood sugars to prevent increased neuropathy. * Assessment & Plan Note - An Soto NP - 09/05/2019 6:14 PM CDT Associated Problem(s): Atherosclerosis of aorta (CMS/HCC) ([facility]) Discussed importance of lipid management and blood pressure controlled prevent progression. * Assessment & Plan Note - An Soto NP - 09/05/2019 6:14 PM CDT Associated Problem(s): Coronary artery disease involving [place] coronary artery of [place] heart without angina pectoris Stable. No angina [...] days a week as suggested by his lead refinery supervisor. Discussed that this will help to control [...] 2 diabetes mellitus with circulatory disorder ([facility]) HEMOGLOBIN A1C Routine 09/05/2019 11:03 AM CDT 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 mellitus ([facility]) LIPID PANEL Routine 09/05/2019 11:03 AM CDT 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 2 diabetes mellitus ([facility]) DIABETIC FOOT EXAM Routine 09/05/2019 documented in this encounter Results * (ABNORMAL) Hemoglobin A1c (09/05/2019 11:03 AM CDT) Hgb A1C 8.3(H) 4.0 - 5.6 % TAYLOR ZUNIGA Comment:Testing performed by : [facility], [address] [place] [address]., [id number] Estimated Average Glucose 192 mg/dL TAYLOR ZUNIGA Comment: The ADA recommends reporting an estimated Average Glucose (eAG) with all Hemoglobin A1c results using the equation derived from a study of 507 normal and diabetic adults. ??Minority populations were underrepresented and children were not included. ?? (Diabetes Care 31:6403-2438, 2007). ??The eAG is not equivalent to a fasting glucose. Testing performed by: [facility], [address] [place] [address]., [id number] Blood specimen (specimen) 09/05/2019 11:03 AM CDT 09/05/2019 4:01 PM CDT us An Soto ELECTRONIC LAB TECHNICIAN LAB BLOOD ORDERABLES Final Res ult [facility] [address] [facility] Department [place] [address] * (ABNORMAL) Albumin Creatinine Ratio, Urine (09/05/2019 11:03 AM CDT) Albumin Ur 260.4 mg/L TAYLOR ZUNIGA Comment: Interpretive Data No reference range established. Current interpretive data was last revised 2018. Testing performed by: [facility], [address] [place] [address]., [id number] Creatinine Ur 122.1 mg/dL TAYLOR ZUNIGA Comment: Interpretive Data No reference range established. Current interpretive data was last revised 2018. Testing performed by: [facility], [facility], [place]., [address] Albumin Creatinine Ratio, Ur 213(H) 1 - 29 mg/g TAYLOR ZUNIGA Comment:Testing performed by : [facility], [facility] [place]., [address] Urine 09/05/2019 11:0 3 AM CDT 09/05/2019 4:10 PM CDT us An Soto ELECTRONIC LAB TECHNICIAN LAB URINE ORDERABLES Final Res ult [facility] [address] [facility]. [place] [address] * Lipid panel (09/05/2019 11:03 [...] CDT 09/05/2019 2:56 PM CDT An Soto ELECTRONIC LAB TECHNICIAN LAB BLOOD ORDERABLES Final Res ult [facility] [address] [facility]. [place] [address] * Diabetic Foot Exam (09/05/2019) Historical Provider [facility] Edited Result - Final documented in this [...] Grade II hemorrhoids Coronary artery disease involving [place] coronary artery of [place] apache heart without angina pectoris Adrenal cyst (HCC) Other specified disorders of adrenal glands BMI 35.0-35.9,adult documented in this encounter Care Teams Show Operations Supervisor Relationship Specialty Start Date End Date Rickey Do MD PCP - General 05/20/16 11/08/20 documented as of this encounter
--- OUTSIDE RECORDS SUMMARY | 2024-02-10 05:36 | XMS_ITS | Encounter Summary ---
Author Organization [facility] Medical [facility] Address [address] [facility] [address] [place] [address] Care Team Providers Care Salt Manager Name Role Phone Rickey Do MD Primary Care Provider [phone] Reason for Visit * Reason Onset Date Comments Ernestina Forms Request 06/25/2020 Encounter Details Date Type Department Care Team (Late st Contact Info) Description 06/25/2020 Telephone [facility] [address] [facility] [address] [place] [address] Rickey Do MD [address] [facility] [address] [place] [id number] Ernestina Forms Request Social History Tobacco Use [...] on file 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 Spoke to Leandra and she said form was received. Pt notified. * Telephone Encounter - Olivia Daniel MA - 06/26/2020 8:58 AM CDT Spoke to Leandra at [employer], she said she will be faxing over [...] return form to patient (fax, mail, or peanut picker): Fax to number listed on form Caller's Callback #: [phone] Additional Comments: Patient is requesting a return [...] on filedocumented in this encounter Care Teams Salt Manager Relationship Specialty Start Date End Date Rickey Do MD PCP - General 05/20/16 11/08/20 documented as of this encounter
--- OUTSIDE RECORDS SUMMARY | 2024-02-10 05:36 | XMS_ITS | Encounter Summary ---
Author Organization [facility] Address [address] [facility] [address] [place] [address] Care Team Providers Care Impregnating Machine Operator Name Role Phone Rickey Do MD Primary Care Provider [phone] Encounter Details Date Type Department Care Team (Late st Contact Info) Description 05/15/2019 Orders Only [facility] [address] [facility] [address] [place] [phone] Kandy Callejas, SENIOR CLINICAL STUDY MANAGER [address] [place] [address] Social History Tobacco Use Types Packs/Day Years [...] on file 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
--- OUTSIDE RECORDS SUMMARY | 2024-02-10 05:36 | XMS_ITS | Encounter Summary ---
Author Organization [facility] Medical [facility] Address [address] [facility] [address] [place] [address] Care Team Providers Care Front End Architect Name Role Phone Rickey Do MD Primary Care Provider [phone] Reason for Visit * Reason Onset Date Comments Dr. Do-Medical Question 03/20/2020 Encounter Details Date Type Department Care Team (Late st Contact Info) Description 03/20/2020 Telephone [facility] [address] [facility] [address] [place] [address] Rickey Do MD [address] [facility] [address] [place] [id number] Dr. 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 Katarina is requesting a call back Caller's Callback #: [phone] Did you relay expectation for processing (up to 24 hours)? Yes UP ENGINEER documented in this encounter Plan of Treatment Not on file documented as of this encounter Visit Diagnoses Not on filedocumented in this encounter Care Teams Front End Architect Relationship Specialty Start Date End Date Rickey Do MD PCP - General 05/20/16 11/08/20 documented as of this encounter
--- OUTSIDE RECORDS SUMMARY | 2024-02-10 05:36 | XMS_ITS | Encounter Summary ---
Author Organization [facility] Address [address] [place] [address] Care Team Providers Care Judicial Administrative Assistant Name Role Phone Rickey Do MD Primary Care Provider [phone] Reason for Visit * Reason Comments Coronary Artery Disease Encounter Details Date Type Department Care Team (Late st Contact Info) Description 09/04/2019 3:[address] 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 After being given [...] for this visit: Coronary artery disease involving tununak coronary artery of tununak heart without angina pectoris (Primary) Assessment & [...] CDT Associated Problem(s): Coronary artery disease involving tununak coronary artery of tununak heart without angina pectoris Stable, mild coronary [...] Visit Diagnoses Diagnosis Coronary artery disease involving tununak coronary artery of tununak heart without angina pectoris- Primary Hypertension associated with diabetes ([facility]) Unspecified essential hypertension 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 2 diabetes mellitus ([facility]) documented in this encounter Discontinued Medications Medication [...] 11/09/2020 added in this encounter Care Teams Judicial Administrative Assistant Relationship Specialty Start Date End Date Rickey Do MD PCP - General 05/20/16 11/08/20 documented as of this encounter
--- OUTSIDE RECORDS SUMMARY | 2024-02-10 05:36 | XMS_ITS | Encounter Summary ---
Author Organization [facility] Address [address] [place] [address] Care Team Providers Care Refractory Grinder Operator Name Role Phone Rickey Do MD Primary Care Provider [phone] Encounter Details Date Type Department Care Team (Late st Contact Info) Description 01/03/2020 Orders Only [facility] [address] [place] [phone] An Soto, NEEDLE PUNCH MACHINE OPERATOR [address] [facility] [address] [place] [address] Back pain of lumbar region with sciatica (Primary Dx) Social History Tobacco Use Types [...] on file 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
--- OUTSIDE RECORDS SUMMARY | 2024-02-10 05:36 | XMS_ITS | Encounter Summary ---
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
--- OUTSIDE RECORDS SUMMARY | 2024-02-10 05:36 | XMS_ITS | Encounter Summary ---
Author Organization [facility] Address [address] [place] [address] Care Team Providers Care Railroad Operating Engineer Name Role Phone Rickey Do MD Primary Care Provider [phone] Reason for Visit * Reason Comments Hip Pain right side Encounter Details Date Type Department Care Team (Late st Contact Info) Description 11/28/2019 12:15 PM CDT Office Visit [facility] [address] [place] [phone] Kandy Callejas, SBA BUSINESS DEVELOPMENT OFFICER [address] [place] [address] Medicare annual wellness visit, subsequent (Primary Dx); Fall, initial encounter; 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 mellitus (CMS/HCC); Coronary artery disease involving on[place]aga coronary artery of onond[place] heart without angina pectoris; BMI 35.0-35.9,adult; Atherosclerosis [...] on file 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 Coronary artery disease involving on[place]aga coronary artery of onondaga heart without angina pectoris Current Assessment & [...] to type 2 diabetes mellitus ([facility]) Overview 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 2 diabetes mellitus Current Assessment & Plan Most recent lipid profile reviewed: Lab Results Component Value Date CHOL 116 09/05/2019 TRIG 113 09/05/2019 HDL 44 09/05/2019 LDL 46 11/02/2015 LDLCALC 49 09/05/2019 Labs pending Relevant Orders Lipid panel Hypertension associated with diabetes ([facility]) Overview BENIGN HYPERTENSION Current Assessment & Plan [...] Type 2 diabetes mellitus with circulatory disorder ([facility]) Overview Diabetes mellitus type II, uncontrolled Coronary [...] information (including living will & power of dimensional inspector status), end of life planning issues, functional [...] as needed, & specific health advice regarding correction management was provided. Patient fell three weeks [...] colon cancer ??? Coronary artery disease involving onondaga coronary artery of onondaga heart without angina pectoris ??? Abnormal findings [...] file Gets together: Not on file Attends sikh service: Not on file Active member of [...] as PCP - General Primary Pharmacy/DME suppliers: [id number] - [place], [place] - [address] [facility] [address] [facility] [phone] [facility] [place] - [address] [place] [address] [address] [facility] [facility] [facility] [address] [facility] All Sites - [place], [place] - [address] [facility] [address] [place] [address] Detection of Cognitive Impairment: The patient does [...] and ImproveDiet Advanced Directive Durable Power of Celebrity Chef Entrepreneur Media Personality: Discussed Today: Living Will: Discussed Today: Assessment [...] neuropathy associated with type 2 diabetes mellitus ([facility]) Assessment & Plan: Patient is reporting pins and needles in his feet. He had a special inserts for his shoes but he said did not help. Foot exam is normal. Discussed the importance of controlling blood sugars. Coronary artery disease involving onondaga coronary artery of onondaga heart without angina pectoris Assessment & Plan: No angina this time. Continue aspirin ARB, beta-priscilla and statin. Followed by Cardiology. BMI 35.0-35.9,adult Assessment & Plan: BMI Follow-up includes: nutrition counseling, exercise counseling and education provided . Atherosclerosis of aorta ([facility]) Assessment & Plan: CT scan showed abdominal aortic and branches are atherosclerotic. Discussed the importance of lipidmanagement blood pressure control. Patient is stable. Orders: - Comprehensive metabolic panel; Future - CBC with auto differential; Future Adrenal cyst ([facility]) Assessment & Plan: Stable no change on Ct Type 2 diabetes mellitus with circulatory disorder ([facility]) Assessment & Plan: Blood sugars are better [...] cyst, acquired, right Hypertension associated with diabetes ([facility]) Assessment & Plan: BP 124/70 (BP Location: Right arm, Patient Position: Sitting) Pulse 82 Resp 18 Ht 180.3 cm (5' 11 ) Wt 116.1 kg (256 lb) SpO2 98% BMI 35.70 kg/m?? On appropriate medication. Continue medication. 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 He had a special inserts for his shoes but he said did not help. Foot exam is normal. Discussed the importance of controlling blood sugars. * Assessment & Plan Note - Kandy Monroy NP - 11/28/2019 2:18 PM CDTAssociated Problem(s): Coronary artery disease involving onondaga coronary artery of onondaga heart without angina pectoris No angina this [...] Results * eGFR (11/28/2019 1:00 PM CDT) [facility] eGFR 66 mL/min/1.7 3 m2 TAYLOR ZUNIGA Comment: Interpretive Data Reference Interval Normal ?>/= 90 mL/min/1.73m2 Mildly decreased* ? 60 - 89 mL/min/1.73m2 Mildly to moderately decreased ?45 - 59 mL/min/1.73m2 Moderately to severely decreased ??30 - 44 mL/min/1.73m2 Severely decreased ?15 - 29 mL/min/1.73m2 Kidney Failure ?< 15 ??mL/min/1.73m2 *Relative to young adult level If -Slovenian multiply value by 1.16. Estimated glomerular filtration [...] CDT 11/28/2019 3:56 PM CDT Kandy Alexander SBA BUSINESS DEVELOPMENT OFFICER LAB BLOOD ORDERAB LES Final Result [facility] [address]. [place] [address] * (ABNORMAL) Differential, auto (11/28/2019 1:00 PM [...] CDT 11/28/2019 3:56 PM CDT Kandy Alexander SBA BUSINESS DEVELOPMENT OFFICER LAB BLOOD ORDERAB LES Final Result Performing Organization Address City/State/[facility] Co de Phone Number [facility] [address]. [place] [address] * PSA screen (11/28/2019 1:00 PM CDT) [...] data last revised 2017. Testing performed by: [facility], [address] [place] [address]., [id number] Blood specimen (specimen) 11/28/2019 1:00 PM CDT 11/29/2019 8:22 AM CDT Kandy Alexander NP LAB BLOOD ORDERAB LES Final Result Performing Organization Address [facility] de Phone Number [facility] [address] [facility] [place] [address] * (ABNORMAL) Hemoglobin A1c (11/28/2019 1:00 PM CDT) Pathologist [facility] Hgb A1C 8.9(H) 4.0 - 5.6 % TAYLOR ZUNIGA Comment:Testing performed by : [facility], [address] [place] [address]., [id number] Estimated Average Glucose 209 mg/dL TAYLOR ZUNIGA Comment: The ADA recommends reporting an estimated Average Glucose (eAG) with all Hemoglobin A1c results using the equation derived from a study of 507 normal and diabetic adults. ??Minority populations were underrepresented and children were not included. ?? (Diabetes Care 31:3920-6479, 2008). ??The eAG is not equivalent to a fasting glucose. Testing performed by: [facility], [address] [place] [address]., [id number] Blood specimen (specimen) 11/28/2019 1:00 PM CDT 11/28/2019 7:43 PM CDT Kandy Alexander NP LAB BLOOD ORDERAB LES Final Result Performing Organization Address [facility] de Phone Number [facility] [address] [email or web address] [place], [place] [id number] * (ABNORMAL) CBC with auto differential (11/28/2019 1:00 PM CDT) WBC 11.8(H) 3.8 - 9.9 K/cumm [facility] Hgb 13.9 13.0 - 17.5 g/dL [facility] Hct 42.5 38.9 - 50.3 % [facility] Plt 325 150 - 400 K/cumm [facility] MPV 10.6 9.1 - 12.3 fL [facility] RBC 4.63 4.30 - 5.80 M/cumm [facility] MCV 91.8 81.3 - 96.4 fL [facility] MCH 30.0 27.1 - 33.3 pg [facility] MCHC 32.7 32.3 - 35.7 g/dL [facility] RDW CV 13.3 11.1 - 14.9 % [facility] RDW SD 44.9 35.7 - 48.1 fL [facility] NRBC abs 0.00 0.00 - 0.01 K/cumm [facility] Blood specimen (specimen) 11/28/2019 1:00 PM CDT 11/28/2019 3:56 PM CDT Kandy Alexander SBA BUSINESS DEVELOPMENT OFFICER LAB BLOOD ORDERAB LES Final Result [facility] [address]. [place] [address] * (ABNORMAL) Comprehensive metabolic panel (11/28/2019 1:00 PM CDT) [facility] Sodium 135 135 - 145 mmol/L [facility] Potassium, pl 4.1 3.3 - 4.9 mmol/L [facility] Chloride 98 97 - 110 mmol/L [facility] CO2 24 22 - 32 mmol/L [facility] Anion gap 13 2 - 15 mmol/L [facility] BUN 17 8 - 25 mg/dL [facility] Creatinine 1.10 0.80 - 1.30 mg/dL [facility] Glucose 250(H) 70 - 199 mg/dL [facility] Comment: Interpretive Data Fasting glucose >/= 126 [...] CDT 11/28/2019 3:56 PM CDT Kandy Alexander SBA BUSINESS DEVELOPMENT OFFICER LAB BLOOD ORDERAB LES Final Result [facility] [address]. [place] [address] * (ABNORMAL) Lipid panel (11/28/2019 [...] LAB BLOOD ORDERAB LES Final Result [facility] [address]. [place] [address] documented in this encounter Visit Diagnoses Diagnosis Medicare annual wellness visit, subsequent- Primary Fall, initial encounter 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 mellitus (CMS/HCC) (HCC) Coronary artery disease involving on[place] coronary artery of onondaga heart without angina pectoris BMI 35.0-35.9,adult Atherosclerosis [...] 11/28/2019 documented in this encounter Care Teams Railroad Operating Engineer Relationship Specialty Start Date End Date Rickey Do MD PCP - General 05/20/16 11/08/20 documented as of this encounter
--- OUTSIDE RECORDS SUMMARY | 2024-02-10 05:36 | XMS_ITS | Encounter Summary ---
Author Organization [facility] Address [address] [place] [address] Care Team Providers Care Industrial Relations Commissioner Name Role Phone Rickey Do MD Primary Care Provider Reason for Visit * Reason Onset Date Comments Hip Injury 11/27/2019 Encounter Details Date Type Department Care Team (Late st Contact Info) Description 11/27/2019 Nurse Triage [facility] [address] [facility] [address] [place] [phone] Rickey Do MD [address] [place] [address] Social History Tobacco Use Types Packs/Day Years [...] on file 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 Red flag symptom Caller's Callback #: [phone] Additional Comments: Patient fell on his front porch a few weeks ago. He has pain in his hip when walking and sleeping at night. He would like an xray to determine if he has fracture. Please advise. Did you relay expectation for call back (connection worker: Red Flag 10-15 min; non- emergent up to 3 hours)(Practice: Red Flag warm transfer; non-emergent up to 24 hours)? Yes documented in this encounter Plan of Treatment Not on file documented as of this encounter Visit Diagnoses Not on filedocumented in this encounter Care Teams Industrial Relations Commissioner Relationship Specialty Start Date End Date Rickey Do MD PCP - General 05/20/16 11/08/20 documented as of this encounter
--- OUTSIDE RECORDS SUMMARY | 2024-02-10 05:36 | XMS_ITS | Encounter Summary ---
Author Organization [facility] Address [address] [place] [address] Care Team Providers Care Central Office Repairer Supervisor Name Role Phone Rickey Do MD Primary Care Provider [phone] Reason for Referral * Consultation (Routine) - Closed Specialty Diagnoses / Procedures Referred By Jp buckner Referred To Contact Ophthalmology Diagnoses 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) Jose Antonio Sanderson MD [address] [facility] [address] [place] [address] Phone: tel: fax: [place] [address] [facility] [address] [place] [address] Phone: tel: fax: Referral ID Status Reason Start Date Expiration Date V isits Requested Visits Authorized [id number] Closed Specialty Services Required 11/12/2019 12/11/2020 1 1 Question Answer Please select the performing region: External Order [171] To provider: KAYLEN REYNOSO [[id number]] # of visits: 1 Encounter Details Date Type Department Care Team (Late st Contact Info) Description 11/12/2019 Orders Only [facility] [address] [facility] [address] [place] [phone] Jose Antonio Sanderson MD [address] [place] [address] Type 2 diabetes mellitus with circulatory disorder [...] on file 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
--- OUTSIDE RECORDS SUMMARY | 2024-02-10 05:36 | XMS_ITS | Encounter Summary ---
Author Organization [facility] Address [address] [place] [address] Care Team Providers Care Machine Sorter Name Role Phone Rickey Do MD Primary Care Provider [phone] Reason for Visit * Reason Comments Diabetes Encounter Details Date Type Department Care Team (Late st Contact Info) Description 04/11/2019 11:30 AM SEAFOOD HARVESTER Office Visit [facility] [address] [place] [address] An Soto, DIALYSIS TECH [address] [place] [address] Type 2 diabetes mellitus with other circulatory complication, with long-term current use of insulin (CMS/[facility]) (Primary Dx); Coronary artery disease involving big sandy coronary artery of big sandy heart without angina pectoris; Type 2 diabetes [...] on file Legal Sex Male 11:37 AM SEAFOOD HARVESTER Gender Identity Not on file Sexual Orientation Not on file 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 Not on file documented as of this encounter Last Filed Vital Signs Vital Sign Reading Time Taken Comments Blood Pressure 114/70 04/11/2019 11:21 AM SEAFOOD HARVESTER Pulse 75 04/11/2019 11:21 AM SEAFOOD HARVESTER Temperature 36.1 ??C (97 ??F) 04/11/2019 11:21 AM SEAFOOD HARVESTER Respiratory Rate 16 04/11/2019 11:21 AM SEAFOOD HARVESTER Oxygen Saturation 98% 04/11/2019 11:21 AM SEAFOOD HARVESTER Inhaled Oxygen Concentration - - Weight 113.9 kg (251 lb) 04/11/2019 11:21 AM SEAFOOD HARVESTER Height 180.3 cm (5' 10.98 ) 04/11/2019 11:21 AM SEAFOOD HARVESTER Body Mass Index 35.02 04/11/2019 11:21 AM SEAFOOD HARVESTER documented in this encounter Ordered Prescriptions Prescription [...] this encounter Progress Notes * An Soto, DIALYSIS TECH - 04/11/2019 11:30 AM CST Images from the original note were not included. Ayden Santos 1945 Chief Complaint Patient presents with ??? Diabetes 73-year-old male here for follow-up of type 2 diabetes. Recent outside hemoglobin A1C of 8. ERICA ejrez 190-200 fasting in the last 2 weeks. [...] file Gets together: Not on file Attends pentecostalism service: Not on file Active member of [...] circulatory complication, with long-term current use of insulin([facility]) (Primary) Assessment & Plan: Not well [...] option more often. Coronary artery disease involving big sandy coronary artery of big sandy heart without angina pectoris Assessment & Plan: No angina. Stable. Continue aspirin, beta-priscilla, ARB and statin for secondary prevention. Followed by Cardiology. Type 2 diabetes mellitus with diabetic mononeuropathy, with long-term current use of insulin ([facility]) - insulin degludec-liraglutide (Xultophy 100/3.6) 100 [...] (around 07/10/2019) for Next scheduled follow up. OOD HARVESTER documented in this encounter Miscellaneous Notes * Assessment & Plan Note - An Soto NP - 04/11/2019 5:38 PM SEAFOOD HARVESTER Associated Problem(s): Type 2 diabetes mellitus with circulatory disorder ([facility]) ([facility]) Not well controlled with hemoglobin A1c [...] him to use that option more often. OOD HARVESTER OOD HARVESTER * Assessment & Plan Note - An Soto NP - 04/11/2019 5:37 PM SEAFOOD HARVESTER Associated Problem(s): Hypertensive heart disease without heart failure Blood pressure is well controlled. Continue valsartan HCT Reviewed low sodium diet and hidden sources of sodium in the diet to avoid. OOD HARVESTER * Assessment & Plan Note - An Soto NP - 04/11/2019 5:37 PM SEAFOOD HARVESTER Associated Problem(s): Coronary artery disease involving big sandy coronary artery of big sandy heart without angina pectoris No angina. Stable. Continue aspirin, beta-priscilla, ARB and statin for secondary prevention. Followed by Cardiology. OOD HARVESTER * Assessment & Plan Note - Lauren Avila MA - 04/11/2019 11:29 AM SEAFOOD HARVESTER Associated Problem(s): Class 2 severe obesity due to excess calories with serious comorbidity and body mass index (BMI) of 37.0 to 37.9 in adult (HCC) BMI Follow-up includes: nutrition counseling, exercise counseling and education provided. OOD HARVESTER documented in this encounter Plan of Treatment Not on file documented as of this encounter Visit Diagnoses Diagnosis Type 2 diabetes mellitus with other circulatory complication, with long-term current use of insulin ([facility])- Primary Coronary artery disease involving big sandy coronary artery of big sandy heart without angina pectoris Type 2 diabetes mellitus with diabetic mononeuropathy, with long-term current use of insulin ([facility]) BMI 35.0-35.9,adult documented in this encounter [...] documented as of this encounter Care Teams Machine Sorter Relationship Specialty Start Date End Date Rickey Do MD PCP - General 05/20/16 11/08/20 documented as of this encounter
--- OUTSIDE RECORDS SUMMARY | 2024-02-10 05:36 | XMS_ITS | Encounter Summary ---
Author Organization [facility] Address [address] [place] [address] Care Team Providers Care Paint Maker Name Role Phone Rickey Do MD Primary Care Provider [phone] Reason for Visit * Reason Onset Date Comments Dr. Do-medical question 09/24/2020 Encounter Details Date Type Department Care Team (Late st Contact Info) Description 09/24/2020 Telephone [facility] [address] [place] [address] Rickey Do MD [address] [place] [id number] Dr. 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 * Telephone Encounter - Alfie Anand - 09/29/2020 12:45 PM CDT Call Back-Sending Message Caller's Concern: Patient calling back to get recommendation for [place] dr since Dr. Do will be leaving soon. Patient was supposed to get a call back and never did. Please call patient with information. Caller's Callback #: [phone] * Telephone Encounter - Mary Lou Avilez MA - 09/24/2020 11:13 AM CDT Pt requesting a recommendation for a PCP ([facility] affiliate) in [place]. * Telephone Encounter - Nohemi Baker - 09/24/2020 8:55 AM CDT See note and please assist. * Telephone Encounter - Lidia Parra - 09/24/2020 8:46 AM CDT General Medical Question/Miscellaneous-Sent Message: Caller's Concern: Patient called stating he recently saw An and he had asked for a recommendation for a [facility] PCP in [place]? He was calling back because he had not received that information. Please advise. Caller's Callback #: [phone] (H) Did you relay expectation for processing (up to 24 hours)? yes documented in this encounter Plan of Treatment Not on file documented as of this encounter Visit Diagnoses Not on filedocumented in this encounter Care Teams Paint Maker Relationship Specialty Start Date End Date Rickey Do MD PCP - General 05/20/16 11/08/20 documented as of this encounter
--- OUTSIDE RECORDS SUMMARY | 2024-02-10 05:36 | XMS_ITS | Encounter Summary ---
Author Organization [facility] Address [address] [place] [address] Care Team Providers Care Drilling Machine Runner Name Role Phone Rickey Do MD Primary Care Provider [phone] Encounter Details Date Type Department Care Team (Late st Contact Info) Description 04/26/2019 Orders Only [facility] [address] [place] [id number] An Soto, SENIOR WIND ENERGY CONSULTANT [address] [address] [place], [place] [id number] Social History Tobacco Use Types Packs/Day Years [...] file 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
--- OUTSIDE RECORDS SUMMARY | 2024-02-10 05:36 | XMS_ITS | Encounter Summary ---
Author Organization [facility] Address [address] [place] [address] Care Team Providers Care Tack Welder Name Role Phone Rickey Do MD Primary Care Provider [phone] Reason for Visit * Reason Comments Diabetes Encounter Details Date Type Department Care Team (Late st Contact Info) Description 05/08/2020 10:30 AM CDT Office Visit [facility] [address] [place] [address] [address] [place] [address] An Soto, INTERFACE ANALYST [address] 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 Attends Anabaptism Services: ??? Active Member of Clubs or [...] index (BMI) of36.0 to 36.9 in adult ([facility]) (Primary) Assessment & Plan: BMI Follow-up includes: nutrition counseling, exercise counseling and education provided. Reinforced his motivation to continue NutriSystem for weight loss. Discussed potential barriers. Strategized how he could begin regular exercise to support weight loss. 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 mellitus ([facility]) Assessment & Plan: Neuropathy improved with lower blood sugars Type 2 diabetes mellitus with circulatory disorder ([facility]) Assessment & Plan: Last Hgb A1C 8.4. Blood sugars are lower with Nutri System diet. Applied Erick Free Style 2 Sensor. Educated on use. Continue Zultophy 50 units daily with Humalog sliding scale. If he begins to experience hypoglycemia as his weight decreases, he will call the office and we will decrease Xultophy dose. Hypertension associated with diabetes ([facility]) Assessment & Plan: Blood pressure [...] mellitus with circulatory disorder ([facility]) ([facility]) Last Hgb A1C 8.4. Blood [...] neuropathy associated with type 2 diabetes mellitus ([facility]) ([facility]) Neuropathy improved with lower blood sugars * Assessment & Plan Note - Phyllis Avila MA - 05/08/2020 10:18 AM CDT Associated Problem(s): Class 2 severe obesity due to excess calories with serious comorbidity and body mass index (BMI) of 37.0 to 37.9 in adult ([facility]) BMI Follow-up includes: nutrition [...] hypertension documented in this encounter Care Teams Tack Welder Relationship Specialty Start Date End Date Rickey Do MD PCP - General 05/20/16 11/08/20 documented as of this encounter
--- OUTSIDE RECORDS SUMMARY | 2024-02-10 05:36 | XMS_ITS | Encounter Summary ---
Author Organization [facility] Address [address] [place] [address] Care Team Providers Care Accounts Supervisor Name Role Phone Rickey Do MD Primary Care Provider Reason for Visit * Reason Onset Date Comments DATACAP DEVELOPER An Medical Question 05/13/2020 Encounter Details Date Type Department Care Team (Late st Contact Info) Description 05/13/2020 Telephone [facility] [address] [place] [address] An Soto, DATACAP DEVELOPER [address] [facility] [address] [place] [address] VASQUEZ Nolan Medical Question Social History Tobacco [...] file 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 His insurance previously refused to pay for it, but through negotiation said they would. Patient received letter with confirmation and showed it to VASQUEZ Nolan at his last office visit. Patient was advised by rep with [employer] to contact provider's office regarding refusal of payment. Caller???s Callback#: [phone] Additional Comments: Please advise. Did you relay expectation for processing (allow up to 24 hours for call back)? Yes documented in this encounter Plan of Treatment Not on file documented as of this encounter Visit Diagnoses Not on filedocumented in this encounter Care Teams Accounts Supervisor Relationship Specialty Start Date End Date Rickey Do MD PCP - General 05/20/16 11/08/20 documented as of this encounter
--- OUTSIDE RECORDS SUMMARY | 2024-02-10 05:36 | XMS_ITS | Encounter Summary ---
Author Organization [facility] Medical Group Address [address] [place] [address] Care Team Providers Care Search Director Name Role Phone Rickey Do MD Primary Care Provider [phone] Reason for Visit * Reason Onset Date Comments Dr. Do- Michele Question 07/17/2020 Encounter Details Date Type Department Care Team (Late st Contact Info) Description 07/17/2020 Telephone [facility] [address] [place] [address] Rickey Do MD [address] [place] [id number] Dr. 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 He received a notification via [employer]. He stated on a card he had, the phone number was [phone]. Transferred to billing so he could pay thebill. documented in this encounter Plan of Treatment Not on file documented as of this encounter Visit Diagnoses Not on filedocumented in this encounter Care Teams Search Director Relationship Specialty Start Date End Date Rickey Do MD PCP - General 05/20/16 11/08/20 documented as of this encounter
--- OUTSIDE RECORDS SUMMARY | 2024-02-10 05:36 | XMS_ITS | Encounter Summary ---
Author Organization [facility] Address [address] [place] [address] Care Team Providers Care Visual Presentation Manager Name Role Phone Rickey Do MD Primary Care Provider Reason for Visit * Reason Onset Date Comments Dr Do - Records Request 03/26/2020 Encounter Details Date Type Department Care Team (Late st Contact Info) Description 03/26/2020 Telephone [facility] 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 OYEE RELATIONS ASSISTANT * Telephone Encounter - Tiffanie Adler - 03/26/2020 1:01 PM CST Please see below. OYEE RELATIONS ASSISTANT * Telephone Encounter - Marlene Magdalene - 03/26/2020 10:39 AM CST Records Request to Practice Will Complete: Specific document requested: 12/16/19 office visit summary Name of provider requesting records (if applicable): [facility] Date Needed: fatmata Delivery Method to requestor (fax, mail, or apple picker): fax to [phone] Caller's Callback #: [phone] Additional Comments: Henry called to ask for office visit summary to be updated to indicate whether or not patient is testing his blood sugar 4 times a day or not, and to have the record faxed over. Did you relay expectation for processing (up to 24 hours)? yes OYEE RELATIONS ASSISTANT documented in this encounter Plan of Treatment Not on file documented as of this encounter Visit Diagnoses Not on filedocumented in this encounter Care Teams Visual Presentation Manager Relationship Specialty Start Date End Date Rickey Do MD PCP - General 05/20/16 11/08/20 documented as of this encounter
--- OUTSIDE RECORDS SUMMARY | 2024-02-10 05:37 | XMS_ITS | Encounter Summary ---
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
--- OUTSIDE RECORDS SUMMARY | 2024-02-10 05:37 | XMS_ITS | Encounter Summary ---
Author Organization [facility] Medical [facility] Address [address] [place] [address] Care Team Providers Care Assistant Federal Public Defender Name Role Phone Rickey Do MD Primary Care Provider [phone] Reason for Visit * Reason Onset Date Comments ct scan results 12/21/2018 Encounter Details Date Type Department Care Team (Late st Contact Info) Description 12/21/2018 Telephone [facility] Cardiology [address] [place] [address] Farrukh Jiménez MD [address] [place] [address] [address] [place] [address] ct scan results Social History [...] on file 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 Pt is asking for you to review the results and give further recommendations if needed. Please advise documented in this encounter Plan of Treatment Not on file documented as of this encounter Visit Diagnoses Not on filedocumented in this encounter Care Teams Assistant Federal Public Defender Relationship Specialty Start Date End Date Rickey Do MD PCP - General 05/20/16 11/08/20 documented as of this encounter
--- OUTSIDE RECORDS SUMMARY | 2024-02-10 05:37 | XMS_ITS | Encounter Summary ---
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
--- OUTSIDE RECORDS SUMMARY | 2024-02-10 05:37 | XMS_ITS | Encounter Summary ---
Author Organization [facility] Address [address] [facility] [address] [place] [address] Care Team Providers Care Staff Sonographer Name Role Phone Rickey Do MD Primary Care Provider [phone] Reason for Referral * Diagnostic Imaging (Routine) - Closed Specialty Diagnoses / Procedures Referred By Jp buckner Referred To Contact Radiology Diagnoses Abnormal findings on diagnostic imaging of lung Acute right-sided thoracic back pain Procedures CT Abdomen W Contrast Xena Valencia NP Phone: tel: fax: [facility] Radiology Referral ID Status Reason Start Date Expiration Date Visits Re quested Visits Authorized [id number] Closed 11/21/2018 06/01/2020 1 1 Reason for Visit * Reason Comments Medicare Wellness Encounter Details Date Type Department Care Team (Late st Contact Info) Description 11/21/2018 10:00 AM CDT Office Visit [facility] [address] 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, E78.5) Assessment & Plan: Plan [...] mononeuropathy, with long-term current use of insulin ([facility]) (E11.41, Z79.4) Assessment & Plan: Stable [...] Peripheral neuropathy due to disorder of metabolism ([facility]) (E88.9, G63) Assessment & Plan: Do not go barefoot Wear supportive shoes and sock Never wear shoes without socks Check feet nightly Call for any change Fu podiatry Hypertension associated with diabetes ([facility]) (E11.59, I10) Assessment & Plan: Hypertension [...] circulatory complication, with long-term current use of insulin([facility]) (E11.59, Z79.4) Assessment & Plan: Stable [...] well balance using plate method found at [employer].gov stay well hydrated with water and walk [...] is not due Coronary artery disease involving yavapai-apache coronary artery of yavapai-apache heart without angina pectoris (I25.10) Assessment & [...] AM CDTAssociated Problem(s): Coronary artery disease involving yavapai-apache coronary artery of yavapai-apache heart without angina pectoris Daily weights call [...] well balance using plate method found at [employer].gov stay well hydrated with water and walk [...] 11/21/2018 3:11 PM CDT us Xena Valencia LAPPER LAB URINE ORDERABLES Final Result [facility] [address] [facility] [facility] [address] * (ABNORMAL) Urinalysis reflex to microscopic and [...] tendency for uric acid stone formation. Source: [facility] Getui. Last revised 03-02-2017 Xena Valencia NP LAB MICROBIOLOGY - G ENERAL ORDERABLES Final Result Performing Organization Address City/[facility] Co de Phone Number TAYLOR MOORECH [address] [place] [address] * eGFR (11/21/2018 2:59 PM CDT) eGFR >60 mL/min/1.7 3 m2 TAYLOR [facility] Comment: Interpretive Data Reference Interval Normal ?>/= 90 mL/min/1.73m2 Mildly decreased* ? 60 - 89 mL/min/1.73m2 Mildly to moderately decreased ?45 - 59 mL/min/1.73m2 Moderately to severely decreased ??30 - 44 mL/min/1.73m2 Severely decreased ?15 - 29 mL/min/1.73m2 Kidney Failure ?< 15 ??mL/min/1.73m2 *Relative to young adult level If -Cypriot multiply value by 1.16. Estimated glomerular filtration [...] BLOOD ORDERABLES Final Result Performing Organization Address City/[facility] Co de Phone Number TAYLOR JONESWCH [address] [place] [address] * Differential, auto (11/21/2018 2:59 PM CDT) [...] 2017. Imm gran pct 0.6 % [facility] Comment: Interpretive Data Percent cell count reference ranges are not reported, since discordance with absolute values may lead to misinterpretation of CBC data. Current Interpretive Data was last revised on 2017. Lymphocyte pct 16.6 % [facility] Comment: Interpretive Data Percent cell count reference ranges are not reported, since discordance with absolute values may lead to misinterpretation of CBC data. Current Interpretive Data was last revised on 2017. Monocyte pct 9.5 % [facility] Comment: Interpretive Data Percent cell count [...] CDT 11/21/2018 3:08 PM CDT Xena Valencia LAPPER LAB BLOOD ORDERABLES Final Result Performing Organization Address [facility] de Phone Number [facility] [address] [place] [address] * Creatine kinase (CK), total (11/21/2018 2:59 PM CDT) CK 113 40 - 300 Units/L [facility] Blood specimen (specimen) 11/21/2018 2:59 PM CDT 11/21/2018 3:08 PM CDT Xena Valencia LAPPER LAB BLOOD ORDERABLES Final Result Performing Organization Address [facility] Phone Number [facility] [address] [address] [place], [place] [phone] * TSH (11/21/2018 2:59 PM CDT) Thyroid Stimulating Hormone 1.89 0.30 - 4.20 mcIUnit/mL [facility] Blood specimen (specimen) 11/21/2018 2:59 PM CDT 11/21/2018 3:08 PM CDT Xena Valencia LAPPER LAB BLOOD ORDERABLES Final Result Performing Organization Address [facility] de Phone Number [facility] [address] [place] [phone] * (ABNORMAL) Lipid panel (11/21/2018 2:59 PM CDT) Cholesterol 106 30 - 199 mg/dL [facility] Comment: Interpretive Data Ages < or = [...] CDT 11/21/2018 3:08 PM CDT Xena Valencia LAPPER LAB BLOOD ORDERABLES Final Result Performing Organization Address City/[facility] Co de Phone Number TAYLOR ZUNIGA [address] [place] [phone] * Erythrocyte sedimentation rate (11/21/2018 2:59 PM CDT) Erythrocyte sedimentation rate 16 1 - 20 mm/hr [facility] Blood specimen (specimen) 11/21/2018 2:59 PM CDT 11/21/2018 3:08 PM CDT Xena WoodsAdán LAPPER LAB BLOOD ORDERABLES Final Result Performing Organization Address [facility] de Phone Number TAYLOR ZUNIGA [address] [place] [address] * Comprehensive metabolic panel (11/21/2018 2:59 PM CDT) Sodium 138 135 - 145 mmol/L [facility] Potassium, pl 4.1 3.3 - 4.9 mmol/L [facility] Chloride 98 97 - 110 mmol/L [facility] CO2 25 22 - 32 mmol/L [facility] Anion gap 15 2 - 15 mmol/L [facility] BUN 14 8 - 25 mg/dL [facility] Creatinine 0.90 0.80 - 1.30 mg/dL [facility] Glucose 163 70 - 199 mg/dL [facility] Comment: Interpretive Data Fasting glucose >/= 126 [...] [facility] Albumin 4.5 3.5 - 5.0 g/dL [facility] Alk phos 71 40 - 130 Units/L [facility] ALT 34 7 - 55 Units/L [facility] AST 33 10 - 50 Units/L [facility] Blood specimen (specimen) 11/21/2018 2:59 PM CDT 11/21/2018 3:08 PM CDT us Xena Valencia LAPPER LAB BLOOD ORDERABLES Final Result [facility] [address] [place] [address] * CBC with auto differential (11/21/2018 2:59 PM CDT) Pathologist [facility] WBC 8.8 3.8 - 9.9 K/cumm [facility] Hgb 14.1 13.0 - 17.5 g/dL [facility] Hct 43.3 38.9 - 50.3 % [facility] Plt 314 150 - 400 K/cumm [facility] MPV 10.6 9.1 - 12.3 fL [facility] RBC 4.66 4.30 - 5.80 M/cumm [facility] MCV 92.9 81.3 - 96.4 fL [facility] MCH 30.3 27.1 - 33.3 pg [facility] MCHC 32.6 32.3 - 35.7 g/dL [facility] RDW CV 12.9 11.1 - 14.9 % [facility] RDW SD 44.2 35.7 - 48.1 fL [facility] NRBC abs 0.00 0.00 - 0.01 K/cumm [facility] Blood specimen (specimen) 11/21/2018 2:59 PM CDT 11/21/2018 3:08 PM CDT us Xena Valencia LAPPER LAB BLOOD ORDERABLES Final Result TAY[facility]OR [facility] [address] [place] [address] documented in this encounter Visit Diagnoses Diagnosis [...] malignant neoplasms, colon Coronary artery disease involving yavapai-apache coronary artery of yavapai-apache heart without angina pectoris Family history of [...] current use of insulin ([facility]) INJECT 24 UNITS UNDER THE SKIN [...] 11/21/2018 documented in this encounter Care Teams Staff Sonographer Relationship Specialty Start Date End Date Rickey Do MD PCP - General 05/20/16 11/08/20 documented as of this encounter
--- OUTSIDE RECORDS SUMMARY | 2024-02-10 05:37 | XMS_ITS | Encounter Summary ---
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
--- OUTSIDE RECORDS SUMMARY | 2024-02-10 05:37 | XMS_ITS | Encounter Summary ---
Author Organization [facility] Address [address] [place] [address] Care Team Providers Care Director Of Sustainability Name Role Phone Rickey Do MD Primary Care Provider Encounter Details Date Type Department Care Team (Late st Contact Info) Description 02/04/2019 Nurse Triage [facility] [address] [facility] [place] [id number] Rickey Do MD [address] [facility] [place] [address] Social History Tobacco Use Types Packs/Day [...] on file 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 T SUPERINTENDENT * Telephone Encounter - An Soto NP - 02/04/2019 11:35 AM CST Please call and schedule him T SUPERINTENDENT * Telephone Encounter - Marcelina Boyce RN - 02/04/2019 10:21 AM PLANT SUPERINTENDENT Patient calling reporting rectal bleeding. History significant [...] Please call back Ayden Garza Danielle at [phone] regarding whether he is able to be worked into the schedule. Reason for Disposition ??? [1] MODERATE rectal bleeding (small blood clots, passing blood without stool, or toilet water turns red) AND [2] more than once a day Protocols used: RECTAL [id number] T SUPERINTENDENT * Telephone Encounter - Marcelina Boyce RN - 02/04/2019 10:16 AM PLANT SUPERINTENDENT Regarding: Rectal bleeding, right side pain uncontrollable bowels ----- Message from Estela Graham sent at 02/04/2019 10:08 AM PLANT SUPERINTENDENT ----- Symptom Based Call Chief Complaint: Rectal bleeding, right side pain uncontrollable bowels Duration: Not specified Appointment Details: Current appointment is 02/18/2019- Seeking an appt on 02/06/19,02/07/19 or 02/08/19 @ 10am due to traffic Caller's Callback #: [phone] Additional Comments: Patient said he had a [...] Did you relay expectation for call back (aerodynamic consultant: Red Flag 10-15 min; non- emergent up to 3 hours)(Practice: Red Flag warm transfer; non-emergent up to 24 hours)? Yes T SUPERINTENDENT documented in this encounter Plan of Treatment Not on file documented as of this encounter Visit Diagnoses Not on filedocumented in this encounter Care Teams Director Of Sustainability Relationship Specialty Start Date End Date Rickey Do MD PCP - General 05/20/16 11/08/20 documented as of this encounter
--- OUTSIDE RECORDS SUMMARY | 2024-02-10 05:37 | XMS_ITS | Encounter Summary ---
Author Organization [facility] Address [address] [facility] [address] [place] [address] Care Team Providers Care It Corporate Recruiter Name Role Phone Rickey Do MD Primary Care Provider [phone] Reason for Visit * Reason Onset Date Comments Ernestina Test Result Request 12/19/2018 Encounter Details Date Type Department Care Team (Late st Contact Info) Description 12/19/2018 Telephone [facility] [address] [place] [address] Rickey Do MD [address] [facility] [address] [place] [address] Ernestina Test Result Request Social History Tobacco [...] on file 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 Did you relay expectation for call back (up to 24 hours)? Yes documented in this encounter Plan of Treatment Not on file documented as of this encounter Visit Diagnoses Not on filedocumented in this encounter Care Teams It Corporate Recruiter Relationship Specialty Start Date End Date Rickey Do MD PCP - General 05/20/16 11/08/20 documented as of this encounter
--- OUTSIDE RECORDS SUMMARY | 2024-02-10 05:37 | XMS_ITS | Encounter Summary ---
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
--- OUTSIDE RECORDS SUMMARY | 2024-02-10 05:37 | XMS_ITS | Encounter Summary ---
Author Organization [facility] Address [address] 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 Hali Wu MD [facility] Colorectal Surgery [phone] 1:34 PM documented in this encounter Plan of Treatment Not on file documented as of this encounter Visit Diagnoses Diagnosis Anal fissure- Primary documented in this encounter Care Teams Affirmative Action Officer Relationship Specialty Start Date End Date Rickey Do MD PCP - General 05/20/16 11/08/20 documented as of this encounter
--- OUTSIDE RECORDS SUMMARY | 2024-02-10 05:37 | XMS_ITS | Encounter Summary ---
Author Organization [facility] Address [address] [facility] [address] [place] [address] Care Team Providers Care Occupational Physician Name Role Phone Rickey Do MD Primary Care Provider [phone] Reason for Visit * Reason Onset Date Comments Dr Do-General Medical Question 09/17/2018 Encounter Details Date Type Department Care Team (Late st Contact Info) Description 09/17/2018 Telephone [facility] [address] 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 Patient verbalized understanding. documented in this encounter Plan of Treatment Not on file documented as of this encounter Visit Diagnoses Not on filedocumented in this encounter Care Teams Occupational Physician Relationship Specialty Start Date End Date Rickey Do MD PCP - General 05/20/16 11/08/20 documented as of this encounter
--- OUTSIDE RECORDS SUMMARY | 2024-02-10 05:37 | XMS_ITS | Encounter Summary ---
Author Organization [facility] Address [address] [facility] [address] [place] [address] Care Team Providers Care Silk Screener Name Role Phone Rickey Do MD Primary Care Provider [phone] Reason for Visit * Reason Onset Date Comments Ernestina Med Refill 12/19/2018 Encounter Details Date Type Department Care Team (Late st Contact Info) Description 12/19/2018 Telephone [facility] [address] 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
--- OUTSIDE RECORDS SUMMARY | 2024-02-10 05:37 | XMS_ITS | Encounter Summary ---
Author Organization [facility] Address [address] [facility] [address] [place] [address] Care Team Providers Care Telegraph Repeater Mechanic Name Role Phone Rickey Do MD Primary Care Provider [phone] Reason for Visit * Reason Comments Follow-up Encounter Details Date Type Department Care Team (Late st Contact Info) Description 08/10/2018 11:45 AM CDT Office Visit [facility] [address] [facility] [address] [place] [address] Felice Torrez MD [address] [place] [address] [address] [place] [address] Anal fissure (Primary Dx) Social [...] on file 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
--- OUTSIDE RECORDS SUMMARY | 2024-02-10 05:37 | XMS_ITS | Encounter Summary ---
Author Organization [facility] Address [address] [facility] [address] [place] [address] Care Team Providers Care Visual Merchandising Manager Name Role Phone Rickey Do MD Primary Care Provider [phone] Reason for Visit * Reason Onset Date Comments Hyperglycemia 03/01/2019 Encounter Details Date Type Department Care Team (Late st Contact Info) Description 03/01/2019 Nurse Triage [facility] [address] [facility] [address] [place] [address] Rickey Do MD [address] [place] [address] Social History Tobacco Use Types Packs/Day Years [...] on file 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 Gender Identity Not on file Sexual Orientation Not on file 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 Not on file documented as of this encounter Miscellaneous Notes * Telephone Encounter - Mirtha Goodwin RN - 03/01/2019 9:55 AM HYDROELECTRIC PLANT MAINTAINER Pt was in office 02/18/19 and made [...] mmol/l) Protocols used: DIABETES - HIGH BLOOD TTTDE-LUIIC-IN OELECTRIC PLANT MAINTAINER * Telephone Encounter - Mirtha Goodwin RN - 03/01/2019 9:50 AM HYDROELECTRIC PLANT MAINTAINER Regarding: High blood sugar ----- Message from Estela Graham sent at 03/01/2019 9:46 AM HYDROELECTRIC PLANT MAINTAINER ----- Symptom Based Call Chief Complaint: High blood sugar Duration: Not specified Appointment Details: Red flag symptom Caller's Callback #: [phone] Additional Comments: Patient saw VASQUEZ Nolan on 02/18/2019 in which his blood sugar was high. He was advised to schedule an appointment the following week. Patient would like to be seen on 03/06/2019, 03/07/2019, or 03/08/2019, preferably at 10am. He lives in [place] and would like to avoid traffic. Inaddition, patient is leaving for [place] on 03/10/2019. Please advise. If practice uses e-visit, condition meets e-visit criteria, and patient has MyChart did you offer e-visit?: No Did you relay expectation for call back (trigonometry tutor: Red Flag 10-15 min; non- emergent up to 3 hours)(Practice: Red Flag warm transfer; non-emergent up to 24 hours)? N/A OELECTRIC PLANT MAINTAINER documented in this encounter Plan of Treatment Not on file documented as of this encounter Visit Diagnoses Not on filedocumented in this encounter Care Teams Visual Merchandising Manager Relationship Specialty Start Date End Date Rickey Do MD PCP - General 05/20/16 11/08/20 documented as of this encounter
--- OUTSIDE RECORDS SUMMARY | 2024-02-10 05:37 | XMS_ITS | Encounter Summary ---
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
--- OUTSIDE RECORDS SUMMARY | 2024-02-10 05:37 | XMS_ITS | Encounter Summary ---
Author Organization [facility] Address [address] [place] [address] Care Team Providers Care Sports Lawyer Name Role Phone Rickey Do MD Primary Care Provider [phone] Reason for Visit * Reason Comments Diabetes Encounter Details Date Type Department Care Team (Late st Contact Info) Description 03/07/2019 10:15 AM SEAT COVER MAKER Office Visit [facility] [address] [place] [address] An Soto, WARD ASSISTANT [address] [facility] [address] [place] [address] Type 2 diabetes mellitus with other circulatory complication, with long-term current use of insulin (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 Not on file documented as of this encounter Last Filed Vital Signs Vital Sign Reading Time Taken Comments Blood Pressure 120/60 03/07/2019 10:15 AM SEAT COVER MAKER Pulse 81 03/07/2019 10:15 AM SEAT COVER MAKER Temperature - - Respiratory Rate 15 03/07/2019 10:15 AM SEAT COVER MAKER Oxygen Saturation 96% 03/07/2019 10:15 AM SEAT COVER MAKER Inhaled Oxygen Concentration - - Weight 117 kg (258 lb) 03/07/2019 10:15 AM SEAT COVER MAKER Height 180.3 cm (5' 11 ) 03/07/2019 10:15 AM SEAT COVER MAKER Body Mass Index 35.98 03/07/2019 10:15 AM SEAT COVER MAKER documented in this encounter Ordered Prescriptions Prescription Sig Dispense Quantity Refills Last Filled Start Date End Date metFORMIN XR (GLUCOPHAGE XR) 500 mg 24 hr tablet Take 1 tablet (500 mg total) by mouth daily with breakfast 90 tablet 3 03/07/2019 0 documented in this encounter Progress Notes * An Soto, WARD ASSISTANT - 03/07/2019 10:15 AM CST Images from [...] in the a.m. Fasting blood sugar is asr229, usually 230. 144 last evening. No hypoglycemic [...] file Gets together: Not on file Attends shinto service: Not on file Active member of [...] circulatory complication, with long-term current use of insulin([facility]) (Primary) Assessment & Plan: Continue with exercise and weight loss. We reviewed healthy choices for restaurant eating. He can continue to increase his Xultopy by 2 units every 3 days to a maximum dose of 50 units per day. Coronary artery disease involving shawnee coronary artery of shawnee heart without angina pectoris Assessment & Plan: [...] (around 06/06/2019) for Next scheduled follow up. COVER MAKER documented in this encounter Miscellaneous Notes * Assessment & Plan Note - An Soto NP - 03/07/2019 6:33 PM SEAT COVER MAKER Associated Problem(s): Incontinence of feces with fecal urgency (Resolved 04/20/2020) Resolved with decrease in metformin to 500 mg daily. 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 We reviewed healthy choices for restaurant eating. He can continue to increase his Xultopy by 2 units every 3 days to a maximum dose of 50 units per day. COVER MAKER * Assessment & Plan Note - An Soto NP - 03/07/2019 6:30 PM SEAT COVER MAKER Associated Problem(s): Hypertensive heart disease without heart failure Blood pressure is well controlled. Continue valsartan HCT Reviewed low sodium diet and hidden sources of sodium in the diet to avoid. 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 Continue aspirin, beta-priscilla, ARB and statin for secondary prevention. Followed by Cardiology COVER MAKER * Assessment & Plan Note - An Soto NP - 03/07/2019 10:38 AM SEAT COVER MAKER Associated Problem(s): Obstructive sleep apnea Continue CPAP use nightly and for naps. Patient is compliant and has good relief of daytime somnolence with CPAP use. Followed by Sleep Medicine. COVER MAKER * Assessment & Plan Note - Bhumika Keene MA - 03/07/2019 10:16 AM CSTAssociated Problem(s): Class 2 severe obesity due to excess calories with serious comorbidity and body mass index (BMI) of 37.0 to 37.9 in adult (HCC) BMI Follow-up includes: nutrition counseling, exercise counseling and education provided. COVER MAKER documented in this encounter Plan of Treatment Not on file documented as of this encounter Visit Diagnoses Diagnosis Type 2 diabetes mellitus with other circulatory complication, with long-term current use of insulin (HCC)- Primary Coronary artery disease involving shawnee coronary artery of shawnee heart without angina pectoris Obstructive sleep apnea [...] documented as of this encounter Care Teams Sports Lawyer Relationship Specialty Start Date End Date Rickey Do MD PCP - General 05/20/16 11/08/20 documented as of this encounter
--- OUTSIDE RECORDS SUMMARY | 2024-02-10 05:37 | XMS_ITS | Encounter Summary ---
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
--- OUTSIDE RECORDS SUMMARY | 2024-02-10 05:37 | XMS_ITS | Encounter Summary ---
Author Organization [facility] Address [address] [place] [address] Care Team Providers Care Pipeline Executive Name Role Phone Rickey Do MD Primary Care Provider Reason for Visit * Reason Onset Date Comments Dr. Do-Medical Question 11/29/2018 Encounter Details Date Type Department Care Team (Late st Contact Info) Description 11/29/2018 Telephone [facility] [address] [place] [address] Rickey Do MD [address] [place] [id number] Dr. 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 Caller???s Callback#: [phone] Reference #[id number] Additional Comments: No additional comments Did you relay expectation for processing (allow up to 24 hours for call back)? yes documented in this encounter Plan of Treatment Not on file documented as of this encounter Visit Diagnoses Not on filedocumented in this encounter Care Teams Pipeline Executive Relationship Specialty Start Date End Date Rickey Do MD PCP - General 05/20/16 11/08/20 documented as of this encounter
--- OUTSIDE RECORDS SUMMARY | 2024-02-10 05:37 | XMS_ITS | Encounter Summary ---
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
--- OUTSIDE RECORDS SUMMARY | 2024-02-10 05:37 | XMS_ITS | Encounter Summary ---
Author Organization [facility] Address [address] [place] [address] Care Team Providers Care Director Of Corporate Communications Name Role Phone Rickey Do MD Primary Care Provider [phone] Reason for Visit * Reason Comments Diabetes Encopresis Encounter Details Date Type Department Care Team (Late st Contact Info) Description 02/18/2019 11:15 AM FOOD AND BEVERAGE INTERN Office Visit [facility] [address] [place] [address] An Soto, DIRECTOR OF ATHLETICS [address] [place] [address] BMI 36.0-36.9,adult (Primary Dx); Incontinence of feces with fecal urgency; Coronary artery disease involving ewiiaapaayp coronary artery of ewiiaapaayp heart without angina pectoris Social History Tobacco [...] on file Legal Sex Male 11:37 AM FOOD AND BEVERAGE INTERN Gender Identity Not on file Sexual Orientation Not on file 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 Not on file documented as of this encounter Last Filed Vital Signs Vital Sign Reading Time Taken Comments Blood Pressure 136/66 02/20/2019 3:55 PM FOOD AND BEVERAGE INTERN Pulse 88 02/18/2019 11:38 AM FOOD AND BEVERAGE INTERN Temperature - - Respiratory Rate 15 02/18/2019 11:38 AM FOOD AND BEVERAGE INTERN Oxygen Saturation 94% 02/18/2019 11:38 AM FOOD AND BEVERAGE INTERN Inhaled Oxygen Concentration - - Weight 118.4 kg (261 lb) 02/18/2019 11:38 AM FOOD AND BEVERAGE INTERN Height 180.3 cm (5' 11 ) 02/18/2019 11:38 AM FOOD AND BEVERAGE INTERN Body Mass Index 36.4 02/18/2019 11:38 AM FOOD AND BEVERAGE INTERN documented in this encounter Progress Notes * An Soto, DIRECTOR OF ATHLETICS - 02/18/2019 11:15 AM CST Images from [...] file Gets together: Not on file Attends mu-ism service: Not on file Active member of [...] day 180tablet 2 ??? blood glucose diagnostic (Tutti DynamicsTOUCH VERIO) strip smbg bid ac 100 each [...] by mouth daily 90tablet 1 ??? lancets (NeuroPacetouch ultrasoft) misc 1 each by other route [...] limit simple carbohydrates. Coronary artery disease involving ewiiaapaayp coronary artery of ewiiaapaayp heart without angina pectoris Assessment & Plan: Stable, no angina. Follow-up is scheduled with his service crew leader. Return in about 6 months (around 08/20/2019) for Annual physical. AND BEVERAGE INTERN documented in this encounter Miscellaneous Notes * Assessment & Plan Note - An Soto NP - 02/20/2019 3:58 PM FOOD AND BEVERAGE INTERN Associated Problem(s): Coronary artery disease involving ewiiaapaayp coronary artery of ewiiaapaayp heart without angina pectoris Stable, no angina. Follow-up is scheduled with his service crew leader. AND BEVERAGE INTERN * Assessment & Plan Note - An Soto NP - 02/20/2019 3:56 PM FOOD AND BEVERAGE INTERN Associated Problem(s): Hypertensive heart disease without heart failure Blood pressure is well controlled. Continue irbesartan HCT Reviewed low sodium diet and hidden sources of sodium in the diet to avoid. AND BEVERAGE INTERN * Assessment & Plan Note - An Soto NP - 02/20/2019 3:53 PM FOOD AND BEVERAGE INTERN Associated Problem(s): Incontinence of feces with fecal urgency (Resolved 04/20/2020) Symptoms improved with decreased metformin dose. He can use Imodium prior to eating out or to control urgency on the airplane. He has noted that high carbohydrate meals 10 to increase his symptoms and I encouraged him to continue to limit simple carbohydrates. AND BEVERAGE INTERN * Assessment & Plan Note - Bhumika Keene MA - 02/18/2019 11:41 AM CSTAssociated Problem(s): Class 2 severe obesity due to excess calories with serious comorbidity and body mass index (BMI) of 37.0 to 37.9 in adult (HCC) BMI Follow-up includes: nutrition counseling, exercise counseling and education provided. AND BEVERAGE INTERN documented in this encounter Plan of Treatment Not on file documented as of this encounter Visit Diagnoses Diagnosis BMI 36.0-36.9,adult- Primary Incontinence of feces with fecal urgency Coronary artery disease involving ewiiaapaayp coronary artery of ewiiaapaayp heart without angina pectoris documented in this encounter Care Teams Director Of Corporate Communications Relationship Specialty Start Date End Date Rickey Do MD PCP - General 05/20/16 11/08/20 documented as of this encounter
--- OUTSIDE RECORDS SUMMARY | 2024-02-10 05:37 | XMS_ITS | Encounter Summary ---
Author Organization formerly [facility] Address [address] [place] [address] Care Team Providers Care Circular Saw Edge Fuser Name Role Phone Rickey Do MD Primary Care Provider [phone] Reason for Referral * Diagnostic Imaging (Routine) - Closed Specialty Diagnoses / Procedures Referred By Contac t Referred To Contact Radiology Diagnoses Abnormal findings on diagnostic imaging of lung Acute right-sided thoracic back pain Procedures CT Abdomen W Contrast Xena Valencia NP Phone: tel: fax: [facility] Radiology Referral ID Status Reason Start Date Expiration Date Visits Re quested Visits Authorized [id number] Closed 11/21/2018 06/01/2020 1 1 Reason for Visit * Diagnostic Imaging (Routine) - Closed Specialty Diagnoses / Procedures Referred By Contac t Referred To Contact Radiology Diagnoses Abnormal findings on diagnostic imaging of lung Acute right-sided thoracic back pain Procedures CT Abdomen W Contrast Xena Valencia NP Phone: tel: fax: [facility] Radiology Referral ID Status Reason Start Date Expiration Date Visits Re quested Visits Authorized [id number] Closed 11/21/2018 06/01/2020 1 1 Encounter Details Date Type Department Care Team (Latest Contact Info) Description 12/17/2018 2:35 PM CDT - 12/17/2018 11:59 PM CDT Hospital Encounter [facility] Imaging [address] [place] [address] Rickey Do MD [address] [place] [address] Xena Valencia, VASQUEZ [address] [place] [address] Abnormal findings on diagnostic imaging of lung; [...] file 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 Electronically signed by: Jim Mccann M.D. [facility] 12/17/2018 4:22 PM CDT EXAMINATION: ??Computed tomography [...] signed by: Jim Mccann M.D. Xena Valencia AEROSPACE ASSEMBLER IMG CT PROCEDURES Fi nal Result documented [...] mL documented in this encounter Care Teams Circular Saw Edge Fuser Relationship Specialty Start Date End Date Rickey Do MD PCP - General 05/20/16 11/08/20 documented as of this encounter
--- OUTSIDE RECORDS SUMMARY | 2024-02-10 05:37 | XMS_ITS | Encounter Summary ---
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 Gender Identity Not on file Sexual Orientation Not on file 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
--- OUTSIDE RECORDS SUMMARY | 2024-02-10 05:37 | XMS_ITS | Encounter Summary ---
Author Organization [facility] Address [address] [place] [address] Care Team Providers Care Press Manager Name Role Phone Rickey Do MD Primary Care Provider [phone] Reason for Visit * Reason Comments Rectal Bleeding x May rubber band job, botox on rectal nothing working Encounter Details Date Type Department Care Team (Late st Contact Info) Description 02/07/2019 10:00 AM CLINICAL SPECIALIST Office Visit [facility] [address] [place] [address] An Soto, ASSEMBLY MECHANIC [address] [facility] [address] [place] [address] Incontinence of feces with fecal [...] file Legal Sex Male 11:37 AM CLINICAL SPECIALIST Gender Identity Not on file Sexual Orientation Not on file 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 Not on file documented as of this encounter Last Filed Vital Signs Vital Sign Reading Time Taken Comments Blood Pressure 130/70 02/07/2019 10:09 AM CLINICAL SPECIALIST Pulse 78 02/07/2019 10:09 AM CLINICAL SPECIALIST Temperature - - Respiratory Rate 16 02/07/2019 10:09 AM CLINICAL SPECIALIST Oxygen Saturation 97% 02/07/2019 10:09 AM CLINICAL SPECIALIST Inhaled Oxygen Concentration - - Weight 117.9 kg (260 lb) 02/07/2019 10:09 AM CLINICAL SPECIALIST Height 180.3 cm (5' 11 ) 02/07/2019 10:09 AM CLINICAL SPECIALIST Body Mass Index 36.26 02/07/2019 10:09 AM CLINICAL SPECIALIST documented in this encounter Ordered Prescriptions Prescription Sig Dispense Quantity Refills Last Filled Start Date End Date metFORMIN XR (GLUCOPHAGE XR) 500 mg 24 hr tablet Take 1 tablet (500 mg total) by mouth 2 (two) times a day 360 tablet 1 02/07/2019 03/07/2019 documented in this encounter Progress Notes * An Soto, ASSEMBLY MECHANIC - 02/07/2019 10:00 AM CST Images from [...] file Gets together: Not on file Attends muslim service: Not on file Active member of [...] day 180tablet 2 ??? blood glucose diagnostic (UtelUCH VERIO) strip smbg bid ac 100 each [...] by mouth daily 90tablet 1 ??? lancets (The Extraordinariestouch ultrasoft) misc 1 each by other route [...] gluten free diet. Hypertension associated with diabetes ([facility]) Assessment & Plan: Blood pressure is well controlled. Continue irbesartan hct and metoprolol Reviewed low sodium diet and hidden sources of sodium in the diet to avoid. Anal fissure Assessment & Plan: Pain has resolved post repair. Type 2 diabetes mellitus with diabetic neuropathy, without long-term current use of insulin ([facility]) Assessment & Plan: Reviewed diabetic foot care [...] about 4 weeks (around 03/07/2019) for Recheck. ICAL SPECIALIST * Bhumika Keene MA - 02/07/2019 10:00 AM CST Ldmor requesting pt to get lab work, or if had done please fax results. ICAL SPECIALIST documented in this encounter Miscellaneous Notes * Assessment & Plan Note - An Soto NP - 02/07/2019 5:23 PM CLINICAL SPECIALIST Associated Problem(s): Hemorrhoid (Resolved 11/05/2020) Bright red bleeding probably due to internal hemorrhoid irritated by frequent stool. If he has any recurrence he will call the office. ICAL SPECIALIST * Assessment & Plan Note - An Soto NP - 02/07/2019 5:21 PM CLINICAL SPECIALIST Associated Problem(s): Chronic right-sided low back pain without sciatica Gentle lumbar stretching exercises. Discussed value of weight loss for decreasing pain. Discussed lumbar x-ray but he would prefer to try stretching 1st. ICAL SPECIALIST * Assessment & Plan Note - An Soto NP - 02/07/2019 5:20 PM CLINICAL SPECIALIST Associated Problem(s): Anal fissure (Resolved 02/20/2019) Pain has resolved post repair. ICAL SPECIALIST * Assessment & Plan Note - An Soto NP - 02/07/2019 5:19 PM CLINICAL SPECIALIST Associated Problem(s): Type 2 diabetes mellitus with neurologic complication (HCC) (Resolved 11/05/2020) Reviewed diabetic foot care ICAL SPECIALIST * Assessment & Plan Note - An Soto NP - 02/07/2019 10:46 AM CLINICAL SPECIALIST Associated Problem(s): Hypertensive heart disease without heart failure Blood pressure is well controlled. Continue irbesartan hct and metoprolol Reviewed low sodium diet and hidden sources of sodium in the diet to avoid. ICAL SPECIALIST * Assessment & Plan Note - An Soto NP - 02/07/2019 10:41 AM CLINICAL SPECIALIST Associated Problem(s): Incontinence of feces with fecal urgency (Resolved 04/20/2020) Decrease metformin to 500 mg BID. Start metamucil 1 tsp daily. Trial of gluten free diet. ICAL SPECIALIST ICAL SPECIALIST ICAL SPECIALIST documented in this encounter Plan of Treatment Not on file documented as of this encounter Results * (ABNORMAL) Hemoglobin A1c (09/05/2019 11:03 AM CDT) [facility] Hgb A1C 8.3(H) 4.0 - 5.6 % TAYLOR ZUNIGA Comment:Testing performed by : [facility], [address] [place] [address]., [id number] Estimated Average Glucose 192 mg/dL TAYLOR ZUNIGA Comment: The ADA recommends reporting an estimated Average Glucose (eAG) with all Hemoglobin A1c results using the equation derived from a study of 507 normal and diabetic adults. ??Minority populations were underrepresented and children were not included. ?? (Diabetes Care 31:0436-6557, 2008). ??The eAG is not equivalent to a fasting glucose. Testing performed by: [facility], [address] [place] [address]., [id number] Blood specimen (specimen) 09/05/2019 11:03 AM CDT 09/05/2019 4:01 PM CDT us An Soto NP LAB BLOOD ORDERABLES Final Res ult TAYLOR ZUNIGA [address] [facility] Department of Laboratories [place], [place] [id number] documented in this encounter Visit Diagnoses Diagnosis [...] documented as of this encounter Care Teams Press Manager Relationship Specialty Start Date End Date Rickey Do MD PCP - General 05/20/16 11/08/20 documented as of this encounter
--- OUTSIDE RECORDS SUMMARY | 2024-02-10 05:37 | XMS_ITS | Encounter Summary ---
Author Organization [facility] Address [address] [place] [address] Care Team Providers Care Interpreter Translator Name Role Phone Rickey Do MD Primary Care Provider [phone] Reason for Visit * Reason Onset Date Comments Dr. Do-Medical Question 02/21/2019 Encounter Details Date Type Department Care Team (Late st Contact Info) Description 02/21/2019 Telephone [facility] [address] [place] [address] Rickey Do MD [address] [place] [id number] Dr. 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 CINAL PLANT PICKER documented in this encounter Plan of Treatment Not on file documented as of this encounter Visit Diagnoses Not on filedocumented in this encounter Care Teams Interpreter Translator Relationship Specialty Start Date End Date Rickey Do MD PCP - General 05/20/16 11/08/20 documented as of this encounter
--- OUTSIDE RECORDS SUMMARY | 2024-02-10 05:37 | XMS_ITS | Encounter Summary ---
Author Organization [facility] Medical [facility] Address [address] [place] [address] Care Team Providers Care Associate Pathologist Name Role Phone Rickey Do MD Primary Care Provider [phone] Reason for Visit * Reason Comments Post-op Encounter Details Date Type Department Care Team (Late st Contact Info) Description 12/10/2018 12:00 PM CDT Office Visit [facility] [address] [facility] [address] [place] [address] Felice Torrez MD [address] [place] [address] [address] [place] [address] Examination following surgery (Primary Dx) [...] on file 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
--- OUTSIDE RECORDS SUMMARY | 2024-02-10 05:37 | XMS_ITS | Encounter Summary ---
Author Organization 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
--- OUTSIDE RECORDS SUMMARY | 2024-02-10 05:37 | XMS_ITS | Encounter Summary ---
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
--- OUTSIDE RECORDS SUMMARY | 2024-02-10 05:37 | XMS_ITS | Encounter Summary ---
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
--- OUTSIDE RECORDS SUMMARY | 2024-02-10 05:37 | XMS_ITS | Encounter Summary ---
Author Organization [facility] Address [address] [place] [address] Care Team Providers Care Nurse Wound Care Name Role Phone Rickey Do MD Primary Care Provider [phone] Reason for Visit * Reason Comments Follow-up Encounter Details Date Type Department Care Team (Late st Contact Info) Description 09/10/2018 11:15 AM CDT Office Visit [facility] [address] [facility] [place] [address] Felice Torrez MD [address] [place] [address] [address] [place] [address] Anal fissure (Primary Dx) Social [...] file Legal Sex Male 11:37 AM DIRECTOR FIELD SERVICES Gender Identity Not on file Sexual Orientation [...] Primary documented in this encounter Care Teams Nurse Wound Care Relationship Specialty Start Date End Date Rickey Do MD PCP - General 05/20/16 11/08/20 documented as of this encounter
--- OUTSIDE RECORDS SUMMARY | 2024-02-10 05:37 | XMS_ITS | Encounter Summary ---
Author Organization [facility] Medical [facility] Address [address] [place] [address] Care Team Providers Care Leather Stretcher Name Role Phone Rickey Do MD Primary Care Provider [phone] Encounter Details Date Type Department Care Team (Late st Contact Info) Description 02/25/2019 Orders Only [facility] [address] [place] [phone] An Soto, TRANSIT MANAGER [address] [place], [place] [id number] Social History Tobacco Use Types Packs/Day Years [...] on file 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
--- OUTSIDE RECORDS SUMMARY | 2024-02-10 05:37 | XMS_ITS | Encounter Summary ---
Author Organization [facility] Medical [facility] Address [address] [place] [address] Care Team Providers Care Cell Phone Repair Technician Name Role Phone Rickey Do MD Primary Care Provider [phone] Reason for Visit * Reason Comments Anal Fissure Encounter Details Date Type Department Care Team (Late st Contact Info) Description 11/16/2018 9:45 AM CDT Office Visit [facility] [address] [facility] [address] [place] [address] Felice Torrez MD [address] [place] [address] [address] [place], [place] [id number] Anal fissure (Primary Dx) Social History Tobacco [...] on file Legal Sex Male 11:37 AM SOUTH [place]SI[place] HISTORY PROFESSOR Gender Identity Not on file Sexual [...] Primary documented in this encounter Care Teams Cell Phone Repair Technician Relationship Specialty Start Date End Date Rickey Do MD PCP - General 05/20/16 11/08/20 documented as of this encounter
--- OUTSIDE RECORDS SUMMARY | 2024-02-10 05:37 | XMS_ITS | Encounter Summary ---
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
--- OUTSIDE RECORDS SUMMARY | 2024-02-10 05:37 | XMS_ITS | Encounter Summary ---
Author Organization [facility] Medical [facility] Address [address] [address] Care Team Providers Care Mushroom Picker Name Role Phone Rickey Do MD Primary Care Provider [phone] Reason for Visit * Reason Comments Diabetes Encounter Details Date Type Department Care Team (Late st Contact Info) Description 08/16/2018 10:00 AM CDT Office Visit [facility] [address] [place] [address] Xena Valencia, STATEMENT SERVICES REPRESENTATIVE [address] [place] [address] Type 2 diabetes mellitus with other circulatory complication, with long-term current use of insulin (CMS/[facility]) (Primary Dx); Hypertension associated with diabetes (CMS/HCC); Morbid obesity (CMS/HCC); Peripheral neuropathy due to disorder of metabolism (CMS/HCC); 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 2 diabetes mellitus (CMS/HCC); Type 2 diabetes mellitus with diabetic mononeuropathy, with long-term current use of insulin (CMS/HCC); Hemorrhoids, unspecified hemorrhoid type; Coronary artery disease involving [place] coronary artery of [place] heart without angina pectoris; Anal fissure; BMI [...] file Legal Sex Male 11:37 AM 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 blood glucose diagnostic (Tourist[employer]CH VERIO) strip, 1 each by other route [...] daily.,Disp: 90 tablet, Rfl: 3 ??? lancets ([employer] ultrasoft) misc, test by by finger stick [...] circulatory complication, with long-term current use of insulin([facility]) (E11.59, Z79.4) (Primary) Assessment & Plan: Stable [...] make a switch Hypertension associated with diabetes ([facility]) (E11.59, I10) Assessment & Plan: Hypertension is [...] hat and sleeves See orders Morbid obesity ([facility]) (E66.01) Assessment & Plan: eat three meals a day same time each day well balance using plate method found at [employer] stay well hydrated with water and walk 5 days a week Peripheral neuropathy due to disorder of metabolism ([facility]) (E88.9, G63) Assessment & Plan: Do not go barefoot Wear supportive shoes and sock Never wear shoes without socks Check feet nightly Call for any change Fu podiatry 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 2 diabetes mellitus ([facility]) (E11.69, E78.5) Assessment & Plan: Plan to [...] mononeuropathy, with long-term current use of insulin ([facility]) (E11.41, Z79.4) Assessment & Plan: Stable Lab [...] or acute pain Coronary artery disease involving [place] coronary artery of [place] heart without angina pectoris (I25.10) Assessment & [...] PM CDTAssociated Problem(s): Coronary artery disease involving [place] coronary artery of [place] heart without angina pectoris Daily weights call [...] well balance using plate method found at Daeg[employer] stay well hydrated with water and walk [...] unspecified hemorrhoid type Coronary artery disease involving [place] coronary artery of [place] heart without angina pectoris Anal fissure BMI 36.0-36.9,adult documented in this encounter Care Teams Mushroom Picker Relationship Specialty Start Date End Date Rickey Do MD PCP - General 05/20/16 11/08/20 documented as of this encounter
--- OUTSIDE RECORDS SUMMARY | 2024-02-10 05:37 | XMS_ITS | Encounter Summary ---
Author Organization [facility] Medical [facility] Address [address] [place] [address] Care Team Providers Care Frame Sample And Pattern Supervisor Name Role Phone Riceky Do MD Primary Care Provider [phone] Reason for Visit * Reason Comments Botulinum Toxin Injection Encounter Details Date Type Department Care Team (Late st Contact Info) Description 09/28/2018 11:30 AM CDT Office Visit [facility] [address] [place] [address] Felice Torrez MD [address] [place] [address] [address] [place] [address] Anal fissure (Primary Dx) Social [...] on file 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
--- OUTSIDE RECORDS SUMMARY | 2024-02-10 05:38 | XMS_ITS | Encounter Summary ---
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
--- OUTSIDE RECORDS SUMMARY | 2024-02-10 05:38 | XMS_ITS | Encounter Summary ---
Author Organization [facility] Address [address] [facility] [address] [place] [address] Care Team Providers Care Health Practice Manager Name Role Phone Rickey Do MD Primary Care Provider [phone] Reason for Referral * Consultation (Routine) - Closed Specialty Diagnoses / Procedures Referred By Jp buckner Referred To Contact Surgery / Colon and Rectal Surgery Diagnoses Hemorrhoids, unspecified hemorrhoid type Rickey Do MD Phone: tel: fax: Hali Wu MD Phone: tel: fax: Referral ID Status Reason Start Date Expiration Date V isits Requested Visits Authorized [id number] Closed Specialty Services Required 05/16/2018 11/25/2019 1 1 Question Answer Please select the performing region: [facility] [[id number]] Please select the performing department: [facility] [[id number]] # of visits: 1 Reason for Visit * Reason Comments Diabetes Encounter Details Date Type Department Care Team (Late st Contact Info) Description 05/16/2018 10:00 AM CDT Office Visit [facility] [address] [place] [address] Xena Valencia, LAUNCHING PAD MECHANIC [address] [facility] [facility] 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 2 diabetes mellitus ([facility]/HCC); Hypertension associated with diabetes (CMS/HCC); Type 2 diabetes mellitus with other circulatory complication, with long-term current use of insulin (CMS/HCC); Morbid obesity ([facility]); Coronary artery disease involving [place] coronary artery of [place] heart without angina pectoris; Hemorrhoids, unspecified hemorrhoid [...] on file 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 Gender Identity Not on file Sexual [...] documented in this encounter Progress Notes * Xnea Valencia, LAUNCHING PAD MECHANIC - 05/16/2018 10:00 AM CDT Subjective/Objective Patient [...] Peripheral neuropathy due to disorder of metabolism ([facility]) (E88.9, G63) Assessment & Plan: Do not go barefoot Wear supportive shoes and sock Never wear shoes without socks Check feet nightly Call for any change Fu podiatry 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 2 diabetes mellitus ([facility]) (E11.69, E78.5) Assessment & Plan: Plan to [...] to your provider Hypertension associated with diabetes ([facility]) (E11.59, I10) Assessment & Plan: Hypertension is [...] circulatory complication, with long-term current use of insulin([facility]) (E11.59, Z79.4) Assessment & Plan: Stable Lab [...] well balance using plate method found at [employer] stay well hydrated with water and walk 5 days a week Coronary artery disease involving [place] coronary artery of [place] heart without angina pectoris (I25.10) Assessment & [...] PM CDTAssociated Problem(s): Coronary artery disease involving [place] coronary artery of tuscar[place] heart without angina pectoris Daily weights call [...] mononeuropathy, with long-term current use of insulin ([facility]) ALBUMIN, RANDOM URINE WITHOUT CREATININE Routine 05/16/2018 12:00 PM CDT Type 2 diabetes mellitus with diabetic mononeuropathy, with long-term current use of insulin ([facility]) HEMOGLOBIN A1C Routine 05/16/2018 12:00 PM CDT Type 2 diabetes mellitus with diabetic mononeuropathy, with long-term current use of insulin ([facility]) COMPREHENSIVE METABOLIC PANEL Routine 05/16/2018 12:00 PM CDT Type 2 diabetes mellitus with diabetic mononeuropathy, with long-term current use of insulin ([facility]) DIABETES EYE EXAM Routine 03/18/2018 documented in this encounter Results * eGFR (05/16/2018 12:00 PM CDT) [facility] eGFR >60 mL/min/1.7 3 m2 TAYLOR ZUNIGA Comment: Interpretive Data Reference Interval Normal ?>/= 90 mL/min/1.73m2 Mildly decreased* ? 60 - 89 mL/min/1.73m2 Mildly to moderately decreased ?45 - 59 mL/min/1.73m2 Moderately to severely decreased ??30 - 44 mL/min/1.73m2 Severely decreased ?15 - 29 mL/min/1.73m2 Kidney Failure ?< 15 ??mL/min/1.73m2 *Relative to young adult level If -Maltese multiply value by 1.16. Estimated glomerular filtration [...] 05/16/2018 2:49 PM CDT us Xena Valencia LAUNCHING PAD MECHANIC LAB BLOOD ORDERABLES Final Result TAYLOR MOORE [address] [facility]. [place] [address] * (ABNORMAL) Hemoglobin A1c (05/16/2018 12:00 PM CDT) Hgb A1C 8.0(H) 4.0 - 5.6 % TAYLOR ZUNIGA Comment:Testing performed by : [facility], [facility] [facility], [place]., [address] Estimated Average Glucose 183 mg/dL TAYLOR ZUNIGA Comment: The ADA recommends reporting an estimated Average Glucose (eAG) with all Hemoglobin A1c results using the equation derived from a study of 507 normal and diabetic adults. ??Minority populations were underrepresented and children were not included. ?? (Diabetes Care 31:0262-2135, 2008). ??The eAG is not equivalent to a fasting glucose. Testing performed by: [facility], [address] [place] [address]., [id number] Blood specimen (specimen) 05/16/2018 12:00 PM CDT 05/16/2018 4:03 PM CDT Narrative TAYLOR MOORECH - 05/16/2018 4:18 PM CDT Xena Valencia LAUNCHING PAD MECHANIC LAB BLOOD ORDERABLES Final Result Performing Organization Address [facility] de Phone Number TAYLOR MOORECH [address] [facility] Department [place] [address] * (ABNORMAL) Microalbumin, urine, random (05/16/2018 12:00 PM CDT) Microalbumin, ur 117.3 mcg/mL TAYLOR ZUNIGA Comment: Interpretive Data No reference ranges have been established for random urine samples. Current Interpretive Data was last revised on 2016. Testing performed by: [facility], [address] [place] [address]., [id number] Creatinine, ur 76.20 mg/dL TAYLOR ZUNIGA Comment: Interpretive Data No reference ranges have been established for random urine samples. Current Interpretive Data was last revised on 2016. Testing performed by: [facility], [address] [place] [address]., [id number] Microalbumin/crea t ratio 153.9(H) 1.0 - 29.9 mcg/mg Cr TAYLOR ZUNIGA Comment:Testing performed by : [facility], [address] [place] [address]., [id number] Urine 05/16/2018 12:0 0 PM CDT 05/16/2018 3:38 PM CDT Narrative TAYLOR KARENCinthiaCH - 05/16/2018 4:32 PM CDT Xena Valencia NP LAB URINE ORDERABLES Final Result Performing Organization Address [facility] de Phone Number [facility] [address] [facility]. [place] [address] * Comprehensive metabolic panel (05/16/2018 12:00 PM [...] 05/16/2018 2:49 PM CDT us Xena Valencia LAUNCHING PAD MECHANIC LAB BLOOD ORDERABLES Final Result [facility] [address] [facility]. [place] [address] * DIABETES EYE EXAM (03/18/2018) Diabetic Eye Exam Normal [facility] Provider HEALTH MAINTENANCE Final Result documented [...] (HCC) Morbid obesity Coronary artery disease involving [place] coronary artery of tuscarora heart without angina pectoris Hemorrhoids, unspecified hemorrhoid type BMI 36.0-36.9,adult documented in this encounter Discontinued Medications Medication Sig Discontinue Reason Start Date End Da te empagliflozin-metformin 25-1,000 mg tablet, IR & ER, biphasic 24hr Take by mouth daily 05/16/2018 documented as of this encounter Care Teams Health Practice Manager Relationship Specialty Start Date End Date Rickey Do MD PCP - General 05/20/16 11/08/20 documented as of this encounter
--- OUTSIDE RECORDS SUMMARY | 2024-02-10 05:38 | XMS_ITS | Encounter Summary ---
Author Organization [facility] Address [address] [place] [address] Care Team Providers Care Oracle Database Developer Name Role Phone Rickey Do MD Primary Care Provider [phone] Reason for Visit * Reason Comments Hemorrhoids * Consultation (Routine) - Closed Specialty Diagnoses / Procedures Referred By Jp buckner Referred To Contact Surgery / Colon and Rectal Surgery Diagnoses Hemorrhoids, unspecified hemorrhoid type Rickey Do MD Phone: tel: fax: Hali Wu MD Phone: tel: fax: Referral ID Status Reason Start Date Expiration Date V isits Requested Visits Authorized [id number] Closed Specialty Services Required 05/16/2018 11/25/2019 1 1 Encounter Details Date Type Department Care Team (Late st Contact Info) Description 06/13/2018 1:30 PM CDT [facility] Visit [facility] [address] [address] [place] [address] Felice Torrez MD [address] [facility] [address] [place] [address] Hemorrhoids, unspecified hemorrhoid type Social [...] on file 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
--- OUTSIDE RECORDS SUMMARY | 2024-02-10 05:38 | XMS_ITS | Encounter Summary ---
Author Organization [facility] Medical Group Address [address] [place] [address] Care Team Providers Care Web Project Manager Name Role Phone Rickey Do MD Primary Care Provider [phone] Reason for Visit * Reason Onset Date Comments Dr. Hernandez reflorena 05/03/2018 Encounter Details Date Type Department Care Team (Late st Contact Info) Description 05/03/2018 Telephone [facility] [address] [place] [address] Rickey Do MD [address] [facility] [facility] [address] [place] [id number] Dr. 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
--- OUTSIDE RECORDS SUMMARY | 2024-02-10 05:38 | XMS_ITS | Encounter Summary ---
Author Organization [facility] Medical Group Address [address] [place] [address] Care Team Providers Care Educational Aide Name Role Phone Rickey Do MD Primary Care Provider [phone] Reason for Visit * Reason Comments Coronary Artery Disease Encounter Details Date Type Department Care Team (Late st Contact Info) Description 05/02/2018 1:15 PM CDT Office [place] [facility] [address] [place] [address] Farrukh Jiménez MD [address] [place] [address] [address] [place] [address] Coronary artery disease involving [place] coronary artery of [place] heart without angina pectoris (Primary Dx); Essential [...] on file 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 blood glucose diagnostic (VirtualQubeTOUCH VERIO) strip 1 each by other route [...] this visit: Coronary artery disease involving [place] coronary artery of [place] heart without angina pectoris (Primary) Assessment & [...] by mouth daily ??? blood glucose diagnostic (The Optima VERIO) strip 1 each by other route [...] this visit: Coronary artery disease involving [place] coronary artery of [place] heart without angina pectoris (Primary) Assessment & [...] Associated Problem(s): Coronary artery disease involving [place] coronary artery of [place] heart without angina pectoris Stable, mild coronary [...] Diagnoses Diagnosis Coronary artery disease involving [place] coronary artery of [place] heart without angina pectoris- Primary Essential hypertension, [...] 09/28/2018 added in this encounter Care Teams Educational Aide Relationship Specialty Start Date End Date Rickey Do MD PCP - General 05/20/16 11/08/20 documented as of this encounter
--- OUTSIDE RECORDS SUMMARY | 2024-02-10 05:38 | XMS_ITS | Encounter Summary ---
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
--- OUTSIDE RECORDS SUMMARY | 2024-02-10 05:39 | XMS_ITS | Encounter Summary ---
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
--- OUTSIDE RECORDS SUMMARY | 2024-02-10 05:39 | XMS_ITS | Encounter Summary ---
Author Organization [facility] Medical Group Address [address] [place] [address] Care Team Providers Care Entry Manager Name Role Phone Rickey Armando MD Primary Care Provider [phone] Reason for Visit * Reason Onset Date Comments dr armando medical question 03/12/2018 Encounter Details Date Type Department Care Team (Late st Contact Info) Description 03/12/2018 Telephone [facility] [address] [place] [address] Rickey Armando MD [address] [facility] [address] 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 FACTURING QUALITY MANAGER * Telephone Encounter - Xena Valencia NP - 03/12/2018 8:59 AM MANUFACTURING QUALITY MANAGER Verify and call pharmacy FACTURING QUALITY MANAGER * Telephone Encounter - Tanika Bruno - 03/12/2018 8:50 AM CST Shellie at [facility] pharmacy calling to verify that patient received first dose of Shingrix vaccination. Patient is requesting second dose of Shingrix and wants to be put on waiting list. Shellie wants to verify that patient did get first dose. Please call Shellie at [phone]. FACTURING QUALITY MANAGER documented in this encounter Plan of Treatment Not on file documented as of this encounter Visit Diagnoses Not on filedocumented in this encounter Care Teams Entry Manager Relationship Specialty Start Date End Date Rickey Armando MD PCP - General 05/20/16 11/08/20 documented as of this encounter
--- OUTSIDE RECORDS SUMMARY | 2024-02-10 05:39 | XMS_ITS | Encounter Summary ---
Author Organization [facility] Medical Group Address [address] [place] [address] Care Team Providers Care Geriatrician Name Role Phone Rickey Do MD Primary Care Provider Reason for Visit * Reason Comments Flank Pain Encounter Details Date Type Department Care Team (Late st Contact Info) Description 11/27/2017 2:45 PM CDT Office Visit 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 ?? [place]-3 fat is found in certain fish, such [...] ask them during your visits. ?? 2016 [employer]. Information is for End User's use only and may not be sold, redistributed or otherwise used for commercial purposes. All illustrations and images included in CareNotes?? are the copyrighted property of [employer] Inc[employer] or [employer]. The above information is an educational specialist only. It is not intended as medical [...] 35.0-35.9,adult documented in this encounter Care Teams Geriatrician Relationship Specialty Start Date End Date Rickey Do MD PCP - General 05/20/16 11/08/20 documented as of this encounter
--- OUTSIDE RECORDS SUMMARY | 2024-02-10 05:39 | XMS_ITS | Encounter Summary ---
Author Organization [facility] Medical Group Address [address] [place] [address] Care Team Providers Care Family Day Carer Name Role Phone Rickey Do MD Primary Care Provider [phone] Encounter Details Date Type Department Care Team (Late st Contact Info) Description 02/28/2018 Orders Only [facility] [address] [place] [phone] Xena Valencia, SUPERVISOR KNITTING [address] [facility] [place], [place] [id number] Social History Tobacco Use Types Packs/Day Years Used Date Smoking Tobacco: Former Cigarettes 1 15 Smokeless Tobacco: Never Comments:Smoking History Pac ks/day: 1 Packs Alcohol Use Standard Drinks/Week Comments Yes 0 (1 standard drink = 0.6 oz pur e alcohol) Sex and Gender Information Value Date Recorded Sex Assigned at Not on file 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
--- OUTSIDE RECORDS SUMMARY | 2024-02-10 05:39 | XMS_ITS | Encounter Summary ---
Author Organization [facility] Address [address] [place] [address] Care Team Providers Care Dishing Machine Operator Name Role Phone Rickey Do MD Primary Care Provider [phone] Reason for Referral * Diagnostic Imaging (Routine) - Closed Specialty Diagnoses / Procedures Referred By Contac t Referred To Contact Diagnoses Left ankle swelling Procedures XR Ankle Left 2 Views Xena Valencia NP Phone: tel: fax: [place] [address] [place] [address] Referral ID Status Reason Start Date Expiration Date Visits Re quested Visits Authorized [id number] Closed 02/15/2018 08/27/2019 1 1 END SEWER Reason for Visit * Diagnostic Imaging (Routine) - Closed Specialty Diagnoses / Procedures Referred By Jp buckner Referred To Contact Diagnoses Left ankle swelling Procedures XR Ankle Left 2 Views Xena Valencia NP Phone: tel: fax: [place] [address] [place] [address] Referral ID Status Reason Start Date Expiration Date Visits Re quested Visits Authorized [id number] Closed 02/15/2018 08/27/2019 1 1 Encounter Details Date Type Department Care Team (Latest Contact Info) Description 02/15/2018 11:01 AM BAG END SEWER - 02/15/2018 11:59 PM BAG END SEWER Hospital Encounter [facility] [address] [place] [address] Xena Valencia, DANCE COACH [address] [address] Rickey Do MD [address] [place] [address] Left ankle swelling Discharge Disposition: Discharge to [...] on file Legal Sex Male 11:37 AM BAG END SEWER Gender Identity Not on file Sexual [...] tendonitis in the ankle Needs to see midlevel provider near his home Needs to wear boot and rest the ankle END SEWER documented in this encounter Plan of Treatment Not on file documented as of this encounter Procedures Procedure Name Priority Date/Time Associated Diagnosis Comments XR ANKLE LEFT 2 VIEWS Schedule DORCAS, Read DORCAS (Appt Today, Awaiting Results) 02/15/2018 11:28 AM BAG END SEWER Left ankle swelling documented in this encounter Results * XR Ankle Left 2 Views (02/15/2018 11:28 AM BAG END SEWER) Anatomical Region Laterality Modality Lower Extremities, Ankle Left Compute d Radiography 02/15/2018 11:5 1 AM BAG END SEWER Impressions 02/15/2018 12:43 PM BAG END SEWER Medial ankle soft tissue swelling with heterotopic ossification deltoid ligament is concerning for ligamentous injury. Dictated by: Perry Walker M.D. Electronically signed by: Luke Waddell M.D. Narrative 02/15/2018 12:43 PM BAG END SEWER EXAMINATION: Left ankle 2 views HISTORY: Left [...] signed by: Luke Waddell M.D. Xena Valencia DANCE COACH IMG XR PROCEDURES Fi nal Result documented in this encounter Visit Diagnoses Diagnosis Left ankle swelling Effusion of ankle and foot joint documented in this encounter Care Teams Dishing Machine Operator Relationship Specialty Start Date End Date Rickey Do MD PCP - General 05/20/16 11/08/20 documented as of this encounter
--- OUTSIDE RECORDS SUMMARY | 2024-02-10 05:39 | XMS_ITS | Encounter Summary ---
Author Organization [facility] Address [address] [place] [address] Care Team Providers Care Html Developer Name Role Phone Rickey Do MD Primary Care Provider [phone] Reason for Referral * Diagnostic Imaging (Routine) - Closed Specialty Diagnoses / Procedures Referred By Jp buckner Referred To Contact Diagnoses Left ankle swelling Procedures XR Ankle Left 2 Views Xena Valencia NP Phone: tel: fax: [address] [place] [address] Referral ID Status Reason Start Date Expiration Date Visits Re quested Visits Authorized [id number] Closed 02/15/2018 08/27/2019 1 1 INUOUS VULCANIZING MACHINE OPERATOR Reason for Visit * Reason Comments Diabetes Encounter Details Date Type Department Care Team (Late st Contact Info) Description 02/15/2018 10:00 AM CONTINUOUS VULCANIZING MACHINE OPERATOR Office Visit [facility] [address] [place] [address] Xena Valencia NP [facility] [place] [address] Hypertension associated with diabetes (CMS/HCC) (Primary Dx); Type 2 diabetes mellitus with other circulatory complication, with long-term current use of insulin ([facility]); 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 2 diabetes mellitus ([facility]); Type 2 diabetes mellitus with diabetic mononeuropathy, with long-term current use of insulin ([facility]); Peripheral neuropathy due to disorder of metabolism ([facility]); Morbid obesity ([facility]); Coronary artery disease involving nenana coronary artery of nenana heart without angina pectoris; Atherosclerosis of aorta ([facility]); Left ankle swelling; RUQ pain; BMI 36.0-36.9,adult [...] on file Legal Sex Male 11:37 AM CONTINUOUS VULCANIZING MACHINE OPERATOR Gender Identity Not on file Sexual Orientation Not on file 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 Not on file documented as of this encounter Last Filed Vital Signs Vital Sign Reading Time Taken Comments Blood Pressure 140/70 02/15/2018 9:40 AM CONTINUOUS VULCANIZING MACHINE OPERATOR Pulse 81 02/15/2018 9:40 AM CONTINUOUS VULCANIZING MACHINE OPERATOR Temperature - - Respiratory Rate - - Oxygen Saturation 98% 02/15/2018 9:40 AM CONTINUOUS VULCANIZING MACHINE OPERATOR Inhaled Oxygen Concentration - - Weight 117.9 kg (260 lb) 02/15/2018 9:40 AM CONTINUOUS VULCANIZING MACHINE OPERATOR Height 180.3 cm (5' 11 ) 02/15/2018 9:40 AM CONTINUOUS VULCANIZING MACHINE OPERATOR Body Mass Index 36.26 02/15/2018 9:40 AM CONTINUOUS VULCANIZING MACHINE OPERATOR documented in this encounter Patient Instructions * Patient Instructions* Xena Valencia NP - 02/15/2018 10:00 AM CONTINUOUS VULCANIZING MACHINE OPERATOR Reduce the synjardy to 12.06/999 once a day Send your blood pressure and blood sugar reading in my chart every other day so I can adjust the xultophy Double the irbesartan 150/12.5 two pills each morning Metoprolol take 2 at lunch 1 at bedtime INUOUS VULCANIZING MACHINE OPERATOR INUOUS VULCANIZING MACHINE OPERATOR documented in this encounter Ordered Prescriptions Prescription [...] circulatory complication, with long-term current use of insulin([facility]) (E11.59, Z79.4) Assessment & Plan: Stable Lab [...] 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 2 diabetes mellitus ([facility]) (E11.69, E78.5) Assessment & Plan: Plan to [...] mononeuropathy, with long-term current use of insulin ([facility]) (E11.41, Z79.4) Assessment & Plan: Stable Lab [...] Peripheral neuropathy due to disorder of metabolism ([facility]) (E88.9, G63) Assessment & Plan: Do not go barefoot Wear supportive shoes and sock Never wear shoes without socks Check feet nightly Call for any change Fu podiatry Morbid obesity ([facility]) (E66.01) Assessment & Plan: eat three meals a day same time each day well balance using plate method found at [employer] stay well hydrated with water and walk 5 days a week Coronary artery disease involving nenana coronary artery of nenana heart without angina pectoris (I25.10) Assessment & Plan: No change Daily weights call for greater than 3 pds weight gain one day 2g sodium diet Encourage balance nutrition and exercise Fu cardiology Orders: - Lipid panel; Future Atherosclerosis of aorta ([facility]) (I70.0) Assessment & Plan: Reviewed all diagnostics [...] - Uric acid - Erythrocyte sedimentation rate INUOUS VULCANIZING MACHINE OPERATOR documented in this encounter Miscellaneous Notes * Assessment & Plan Note - Xena Valencia NP - 02/25/2018 1:23 PM CSTAssociated Problem(s): Left ankle swelling (Resolved 11/21/2018) Ice elevate compression Xray neg some soft tissue swelling If no improvement will order pt or consult orthopedic INUOUS VULCANIZING MACHINE OPERATOR * Assessment & Plan Note - Xena Valencia NP - 02/25/2018 1:23 PM CSTAssociated Problem(s): Coronary artery disease involving nenana coronary artery of nenana heart without angina pectoris No change Daily weights call for greater than 3 pds weight gain one day 2g sodium diet Encourage balance nutrition and exercise Fu cardiology INUOUS VULCANIZING MACHINE OPERATOR * Assessment & Plan Note - Xena Valencia NP - 02/25/2018 1:23 PM CSTAssociated Problem(s): Atherosclerosis of aorta (CMS/HCC) (HCC) Reviewed all diagnostics surgery referrals laboratory Answer all questions Reviewed all diagnostics surgery referrals laboratory Answer all questions Control dm htn lipid Call for le weakness abdominal pain fatigue INUOUS VULCANIZING MACHINE OPERATOR * Assessment & Plan Note - Xena [...] shoes without socks to avoid skin injury INUOUS VULCANIZING MACHINE OPERATOR * Assessment & Plan Note - Xena Valencia NP - 02/25/2018 1:22 PM CSTAssociated Problem(s): 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) (Resolved 02/07/2019) Do not go barefoot Wear supportive shoes and sock Never wear shoes without socks Check feet nightly Call for any change Fu podiatry INUOUS VULCANIZING MACHINE OPERATOR * Assessment & Plan Note - Xena Valencia NP - 02/25/2018 1:22 PM CSTAssociated Problem(s): Morbid obesity (HCC) (Resolved 11/05/2020) eat three meals a day same time each day well balance using plate method found at [employer] stay well hydrated with water and walk 5 days a week INUOUS VULCANIZING MACHINE OPERATOR * Assessment & Plan Note - Xena Valencia NP - 02/25/2018 1:22 PM CSTAssociated Problem(s): 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 Take medication as prescribed report any dark urine, muscle ache or weakness to your provider INUOUS VULCANIZING MACHINE OPERATOR * Assessment & Plan Note - Xena Valencia NP - 02/25/2018 1:22 PM CSTAssociated Problem(s): Type 2 diabetes mellitus with circulatory disorder ([facility]) ([facility]) Stable Lab pending Reviewed past medication, medical, [...] shoes without socks to avoid skin injury INUOUS VULCANIZING MACHINE OPERATOR * Assessment & Plan Note - Xena [...] burn use sun screen hat and sleeves INUOUS VULCANIZING MACHINE OPERATOR * Assessment & Plan Note - Ela De La Cruz MA - 02/15/2018 9:45 AM CONTINUOUS VULCANIZING MACHINE OPERATOR Associated Problem(s): Class 2 severe obesity due to excess calories with serious comorbidity and body mass index (BMI) of 37.0 to 37.9 in adult ([facility]) BMI Follow-up includes: nutrition counseling, exercise counseling and education provided. INUOUS VULCANIZING MACHINE OPERATOR documented in this encounter Plan of Treatment Scheduled Orders Name Type Priority Associated Diagnoses Orde r Schedule Lipid panel Lab Routine 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 2 diabetes mellitus ([facility]) Coronary artery disease involving nenana coronary artery of nenana heart without angina pectoris Atherosclerosis of aorta ([facility]) Expected: 02/15/2018, Expires: 02/15/2019 Microalbumin, urine, random Lab Routine Type 2 diabetes mellitus with diabetic mononeuropathy, with long-term current use of insulin ([facility]) Expected: 02/15/2018, Expires: 02/15/2019 Urinalysis reflex to microscopic and culture Urine Microbiology Routine Type 2 diabetes mellitus with diabetic mononeuropathy, with long-term current use of insulin ([facility]) Expected: 02/15/2018, Expires: 02/15/2019 Uric acid Lab Routine Left ankle swelling Expected: 02/15/2018, Expires: 02/15/2019 Hemoglobin A1c Lab Routine Type 2 diabetes mellitus with diabetic mononeuropathy, with long-term current use of insulin ([facility]) Expected: 02/15/2018, Expires: 02/15/2019 Erythrocyte sedimentation rate Lab Routine Left ankle swelling Expected: 02/15/2018, Expires: 02/15/2019 documented as of this encounter Procedures Procedure Name Priority Date/Time Associated Diagnosis Comments MICROSCOPIC EXAMINATION Routine 02/15/2018 10:30 AM CONTINUOUS VULCANIZING MACHINE OPERATOR URINALYSIS AND REFLEX TO MICROSCOPIC AND CULTURE Routine 02/15/2018 10:30 AM CONTINUOUS VULCANIZING MACHINE OPERATOR ALBUMIN, RANDOM URINE WITHOUT CREATININE Routine 02/15/2018 10:30 AM CONTINUOUS VULCANIZING MACHINE OPERATOR ERYTHROCYTE SEDIMENTATION RATE Routine 02/15/2018 10:30 AM CONTINUOUS VULCANIZING MACHINE OPERATOR URIC ACID Routine 02/15/2018 10:30 AM CONTINUOUS VULCANIZING MACHINE OPERATOR LIPASE Routine 02/15/2018 10:30 AM CONTINUOUS VULCANIZING MACHINE OPERATOR RUQ pain HEMOGLOBIN A1C Routine 02/15/2018 10:30 AM CONTINUOUS VULCANIZING MACHINE OPERATOR AMYLASE Routine 02/15/2018 10:30 AM CONTINUOUS VULCANIZING MACHINE OPERATOR RUQ pain LIPID PANEL Routine 02/15/2018 10:30 AM CONTINUOUS VULCANIZING MACHINE OPERATOR documented in this encounter Results * XR Ankle Left 2 Views (02/15/2018 11:28 AM CONTINUOUS VULCANIZING MACHINE OPERATOR) Anatomical Region Laterality Modality Lower Extremities, Ankle Left Compute d Radiography 02/15/2018 11:5 1 AM CONTINUOUS VULCANIZING MACHINE OPERATOR Impressions 02/15/2018 12:43 PM CONTINUOUS VULCANIZING MACHINE OPERATOR Medial ankle soft tissue swelling with heterotopic ossification deltoid ligament is concerning for ligamentous injury. Dictated by: Perry Walker M.D. Electronically signed by: Luke Waddell M.D. Narrative 02/15/2018 12:43 PM CONTINUOUS VULCANIZING MACHINE OPERATOR EXAMINATION: Left ankle 2 views HISTORY: Left [...] * Erythrocyte sedimentation rate (02/15/2018 10:30 AM CONTINUOUS VULCANIZING MACHINE OPERATOR) Erythrocyte sedimentation rate 24 0 - 30 mm/hr [facility] - 01 02/15/2018 10:3 0 AM CONTINUOUS VULCANIZING MACHINE OPERATOR 02/15/2018 Narrative [facility] - 02/16/2018 8:24 AM CONTINUOUS VULCANIZING MACHINE OPERATOR Performed at: ??01 - [facility] [address] ??[id number] Facilities Maintenance Supervisor: Woodrow Michel PhD, Phone: ??[phone] Xena Valencia NP LAB BLOOD ORDERABLES Final Result [facility] - 01 * Uric acid (02/15/2018 10:30 AM CONTINUOUS VULCANIZING MACHINE OPERATOR) Uric acid 6.5 3.7 - 8.6 mg/dL [facility] - 01 Comment:Therapeutic target f or gout patients: <6.0 02/15/2018 10:3 0 AM CONTINUOUS VULCANIZING MACHINE OPERATOR 02/15/2018 Narrative [facility] - 02/16/2018 8:24 AM CONTINUOUS VULCANIZING MACHINE OPERATOR Performed at: ??01 - [facility] ??[id number] Facilities Maintenance Supervisor: Woodrow Michel PhD, Phone: ??[phone] Xena Valencia NP LAB BLOOD ORDERABLES Final Result Performing Organization Address [facility] de Phone Number [facility] - * (ABNORMAL) Hemoglobin A1c (02/15/2018 10:30 AM CONTINUOUS VULCANIZING MACHINE OPERATOR) Pathologist [facility] Hgb A1C 8.5(H) 4.8 - 5.6 % [facility] - 01 Comment: ? Prediabetes: 5.7 - 6.4 ? Diabetes: >6.4 ? Glycemic control for adults with diabetes: <7.0 02/15/2018 10:3 0 AM CONTINUOUS VULCANIZING MACHINE OPERATOR 02/15/2018 Narrative [facility] - 02/16/2018 8:24 AM CONTINUOUS VULCANIZING MACHINE OPERATOR Performed at: ??01 - [facility] ??[id number] Facilities Maintenance Supervisor: Woodrow Michel PhD, Phone: ??[phone] Result [facility] Xena Valencia NP LAB BLOOD ORDERABLES Final Result Performing Organization Address [facility] de Phone Number [facility] - * Microalbumin, urine, random (02/15/2018 10:30 AM CONTINUOUS VULCANIZING MACHINE OPERATOR) Pathologist [facility] Microalbumin, ur 101.2 Not Estab. ug/mL [facility] - 01 02/15/2018 10:3 0 AM CONTINUOUS VULCANIZING MACHINE OPERATOR 02/15/2018 Narrative [facility] - 02/16/2018 8:24 AM CONTINUOUS VULCANIZING MACHINE OPERATOR Performed at: ??01 - [facility] ??[id number] Facilities Maintenance Supervisor: Woodrow Michel PhD, Phone: ??[phone] Xena Valencia NP LAB URINE ORDERABLES Final Result Performing Organization Address [facility] de Phone Number [facility] - 01 * (ABNORMAL) Lipid panel (02/15/2018 10:30 AM CONTINUOUS VULCANIZING MACHINE OPERATOR) Cholesterol 150 100 - 199 mg/dL [facility] - 01 Triglycerides 158(H) 0 - 149 mg/dL [facility] - 01 HDL Cholesterol 41 >39 mg/dL [facility] - 01 VLDL 32 5 - 40 mg/dL [facility] - 01 LDL, calculated 77 0 - 99 mg/dL [facility] - 01 02/15/2018 10:3 0 AM CONTINUOUS VULCANIZING MACHINE OPERATOR 02/15/2018 Narrative [facility] - 02/16/2018 8:24 AM CONTINUOUS VULCANIZING MACHINE OPERATOR Performed at: ?? - [facility] ??[id number] Facilities Maintenance Supervisor: Woodrow Michel PhD, Phone: ??[phone] Xena Valencia NP LAB BLOOD ORDERABLES Final Result Performing Organization Address [facility] de Phone Number [facility] - 01 * Microscopic Examination (02/15/2018 10:30 AM CONTINUOUS VULCANIZING MACHINE OPERATOR) WBC, ur 0-5 0 - 5 /hpf [facility] - 01 RBC, ur 0-2 0 - 2 /hpf [facility] - 01 Epithelial cells, non-renal, ur None seen 0 - 10 /hpf [facility] - 01 Bacteria, ur None seen None seen/Few [facility] - 01 02/15/2018 10:3 0 AM CONTINUOUS VULCANIZING MACHINE OPERATOR 02/15/2018 Narrative [facility] - 02/16/2018 8:24 AM CONTINUOUS VULCANIZING MACHINE OPERATOR Performed at: ?? - [facility] ??[id number] Facilities Maintenance Supervisor: Woodrow Michel PhD, Phone: ??[phone] Xena Valencia NP LAB BLOOD ORDERABLES Final Result Performing Organization Address [facility] de Phone Number [facility] - 01 * (ABNORMAL) Urinalysis reflex to microscopic and culture (02/15/2018 10:30 AM CONTINUOUS VULCANIZING MACHINE OPERATOR) Specific [place] 1.027 1.005 - 1.030 [facility] - 01 [...] a Urine Culture. 02/15/2018 10:3 0 AM CONTINUOUS VULCANIZING MACHINE OPERATOR 02/15/2018 Narrative [facility] - 02/16/2018 8:24 AM CONTINUOUS VULCANIZING MACHINE OPERATOR Performed at: ??01 - [facility] ??[id number] Facilities Maintenance Supervisor: Woodrow Michel PhD, Phone: ??[phone] Xena Valencia NP LAB MICROBIOLOGY - G ENERAL ORDERABLES Final Result [facility] - 01 * Lipase (02/15/2018 10:30 AM CONTINUOUS VULCANIZING MACHINE OPERATOR) Pathologist [facility] Lipase, Serum 29 13 - 78 U/L [facility] - 01 Blood specimen (specimen) 02/15/2018 10:30 AM CONTINUOUS VULCANIZING MACHINE OPERATOR 02/15/2018 Narrative [facility] - 02/16/2018 8:24 AM CONTINUOUS VULCANIZING MACHINE OPERATOR Performed at: ??01 - [facility] ??[id number] Facilities Maintenance Supervisor: Woodrow Michel PhD, Phone: ??[phone] Xena Valencia NP LAB BLOOD ORDERABLES Final Result Performing Organization Address [facility] de Phone Number [facility] - 01 * Amylase (02/15/2018 10:30 AM CONTINUOUS VULCANIZING MACHINE OPERATOR) Amylase, Serum 39 31 - 124 U/L [facility] - 01 Blood specimen (specimen) 02/15/2018 10:30 AM CONTINUOUS VULCANIZING MACHINE OPERATOR 02/15/2018 Narrative [facility] - 02/16/2018 8:24 AM CONTINUOUS VULCANIZING MACHINE OPERATOR Performed at: ??01 - [facility] ??[id number] Facilities Maintenance Supervisor: Woodrow Michel PhD, Phone: ??[phone] Xena Valencia NP LAB BLOOD ORDERABLES Final Result Performing Organization Address [facility] de Phone Number [facility] - 01 documented in this encounter Visit Diagnoses Diagnosis Hypertension associated with diabetes ([facility])- Primary Unspecified essential hypertension Type 2 diabetes mellitus with other circulatory complication, with long-term current use of insulin (HCC) 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
--- OUTSIDE RECORDS SUMMARY | 2024-02-10 05:39 | XMS_ITS | Encounter Summary ---
Author Organization [facility] Address [address] [place] [address] Care Team Providers Care Blasting Gang Miner Name Role Phone Rickey Do MD Primary Care Provider [phone] Reason for Visit * Reason Comments Left Message Encounter Details Date Type Department Care Team (Late st Contact Info) Description 12/28/[address] 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
--- OUTSIDE RECORDS SUMMARY | 2024-02-10 05:40 | XMS_ITS | Encounter Summary ---
Author Organization [facility] Address [address] [place] [address] Care Team Providers Care Inside Sales Manager Name Role Phone Rickey Do MD Primary Care Provider [phone] Encounter Details Date Type Department Care Team (Late st Contact Info) Description 09/05/2017 Orders Only [facility] 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
--- OUTSIDE RECORDS SUMMARY | 2024-02-10 05:41 | XMS_ITS | Encounter Summary ---
Author Organization [facility] Address [address] [place] [address] Care Team Providers Care Electric Brain Wave Equipment Mechanic Name Role Phone Rickey Do MD Primary Care Provider Reason for Visit * Reason Onset Date Comments Dr. Do Medical Question 07/06/2017 Encounter Details Date Type Department Care Team (Late st Contact Info) Description 07/06/2017 Telephone [facility] [address] [place] [address] Rickey Do MD [address] [facility] [facility] [place] [id number] [facility]. Do Medical Question Social History Tobacco Use Types Packs/Day Years Used Date Smoking Tobacco: Former Smokeless Tobacco: Never Comments:Smoking History Pac ks/day: 1 Packs Alcohol Use Standard Drinks/Week Comments Yes 0 (1 standard drink = 0.6 oz pur e alcohol) Sex and Gender Information Value Date Recorded Sex Assigned at Not on file Legal Sex Male 11:37 AM MANAGER OF CLINICAL Gender Identity Not on file Sexual Orientation [...] on filedocumented in this encounter Care Teams Electric Brain Wave Equipment Mechanic Relationship Specialty Start Date End Date Rickey Do MD PCP - General 05/20/16 11/08/20 documented as of this encounter
--- OUTSIDE RECORDS SUMMARY | 2024-02-10 05:41 | XMS_ITS | Encounter Summary ---
Author Organization [facility] Address [address] [place] [address] Care Team Providers Care Subeditor Name Role Phone Rickey Do MD Primary Care Provider [phone] Reason for Visit * Reason Onset Date Comments Ernestina-med refill request 08/25/2017 Encounter Details Date Type Department Care Team (Late st Contact Info) Description 08/25/2017 Telephone [facility] [address] [place] [address] Rickey Do MD [address] [address] [place] [address] Ernestina-med refill request Social History Tobacco Use Types Packs/Day Years Used Date Smoking Tobacco: Former Smokeless Tobacco: Never Comments:Smoking History Pac ks/day: 1 Packs Alcohol Use Standard Drinks/Week Comments Yes 0 (1 standard drink = 0.6 oz pur e alcohol) Sex and Gender Information Value Date Recorded Sex Assigned at Not on file Legal Sex Male 11:37 AM DOOR 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
--- OUTSIDE RECORDS SUMMARY | 2024-02-10 05:42 | XMS_ITS | Encounter Summary ---
Author Organization [facility] Medical Group Address [address] [place] [address] Care Team Providers Care Relish Blender Name Role Phone Rickey Do MD Primary Care Provider [phone] Reason for Visit * Reason Comments Coronary Artery Disease Encounter Details Date Type Department Care Team (Late st Contact Info) Description 05/03/2017 1:15 PM CDT Office Visit [facility] [place] Cardiology [address] [place] [address] Farrukh Jiménez MD [address] [place] [address] [address] [place] [address] Coronary artery disease involving galena coronary artery of galena heart without angina pectoris (Primary Dx); Essential [...] on file Legal Sex Male 11:37 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 Gender Identity Not on file Sexual [...] for this visit: Coronary artery disease involving galena coronary artery of galena heart without angina pectoris (Primary) Assessment & [...] CDT Associated Problem(s): Coronary artery disease involving galena coronary artery of galena heart without angina pectoris Stable, mild without [...] Visit Diagnoses Diagnosis Coronary artery disease involving galena coronary artery of galena heart without angina pectoris- Primary Essential hypertension, benign Hypercholesteremia Pure hypercholesterolemia documented in this encounter Discontinued Medications Medication Sig Discontinue Reason Start Date End Da te FLUZONE HIGH-DOSE , PF, 180 mcg/0.5 mL syringeIndications:Type 2 diabetes mellitus with other circulatory complication, 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 11/21/2016 05/03/2017 documented as of this encounter Care Teams Relish Blender Relationship Specialty Start Date End Date Rickey Do MD PCP - General 05/20/16 11/08/20 documented as of this encounter
--- OUTSIDE RECORDS SUMMARY | 2024-02-10 05:43 | XMS_ITS | Encounter Summary ---
Author Organization [facility] Medical Group Address [address] [place] [address] Care Team Providers Care Creative Director Name Role Phone Rickey Do MD Primary Care Provider [phone] Reason for Visit * Reason Onset Date Comments Xena Mccain-Medical Question 7 Encounter Details Date Type Department Care Team (Late st Contact Info) Description 10/14/2016 Telephone [facility] [address] [place] [address] Rickey Do MD [address] [facility] [address] [place] [id number] Xena Mccain-Medical Question Social History Tobacco Use Types Packs/Day Years Used Date Smoking Tobacco: Former Cigarettes Q uit: 02/20/1985 Comments:Smoking History Pac ks/day: 1 Packs Alcohol Use Standard Drinks/Week Comments Yes 0 (1 standard drink = 0.6 oz pur e alcohol) Sex and Gender Information Value Date Recorded Sex Assigned at Not on file Legal Sex Male 11:37 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
--- OUTSIDE RECORDS SUMMARY | 2024-02-10 05:43 | XMS_ITS | Encounter Summary ---
Author Organization [facility] Medical Group Address [address] [place] [address] Care Team Providers Care Station Inspector Name Role Phone Rickey Do MD Primary Care Provider [phone] Encounter Details Date Type Department Care Team (Late st Contact Info) Description 09/14/2016 Telephone [facility] [address] [place] [phone] Mary Lou Avilez MA Social History Tobacco Use Types Packs/Day Years Used Date Smoking Tobacco: Former Cigarettes Q uit: 02/20/1985 Comments:Smoking History Pac ks/day: 1 Packs Alcohol Use Standard Drinks/Week Comments Yes 0 (1 standard drink = 0.6 oz pur e alcohol) Sex and Gender Information Value Date Recorded Sex Assigned at Not on file 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
--- OUTSIDE RECORDS SUMMARY | 2024-02-10 05:43 | XMS_ITS | Encounter Summary ---
Author Organization [facility] Healthcare Address [address] [place] [address] Care Team Providers Care Heavy Threader Name Role Phone Rickey Do MD Primary Care Provider [phone] Encounter Details Date Type Department Care Team (Latest Contact Info) Description 03/10/2017 8:25 AM WATER RESOURCES TECHNICAL OFFICER - 03/10/2017 11:10 AM [facility] Hospital Encounter [facility] OP INTERIM [phone] Peter Marroquin MD [address] [facility] [address] [place], [place] [id number] Discharge Disposition: Discharge to home or self [...] file Legal Sex Male 11:37 AM WATER RESOURCES TECHNICAL OFFICER Gender Identity Not on file Sexual [...] diabetes mellitus with other circulatory complication, unspecified vermin exterminator insulin use status Inject 0.5 mL [...] Comments GLUCOSE POC Routine 03/10/2017 10:42 AM WATER RESOURCES TECHNICAL OFFICER SURGICAL PATHOLOGY Routine 03/10/2017 10 :06 AM WATER RESOURCES TECHNICAL OFFICER GLUCOSE POC Routine 03/10/2017 9:21 AM WATER RESOURCES TECHNICAL OFFICER COLONOSCOPY REPORT 03/10/2017 DISCHARGE LABORATORY CUMULATIVE REPORT 03/10/2017 12:00 AM WATER RESOURCES TECHNICAL OFFICER SURGICAL PATHOLOGY 03/10/2017 12 :00 AM WATER RESOURCES TECHNICAL OFFICER documented in this encounter Results * Glucose POC (03/10/2017 10:42 AM WATER RESOURCES TECHNICAL OFFICER) Glucose, POC 174 70 - 199 mg/dL TAYLOR ZUNIGA Comment: Interpretive Data Glucose is assumed to be non-fasting. Fasting Glucose reference ranges are: 0 - 150 years: ??70 mg/dL - 99 mg/dL Current interpretive data was last revised on 2013. Blood specimen (specimen) 03/10/2017 10:42 AM WATER RESOURCES TECHNICAL OFFICER 03/10/2017 10:42 AM WATER RESOURCES TECHNICAL OFFICER Narrative TAYLOR ZUNIGA - 03/10/2017 10:57 AM WATER RESOURCES TECHNICAL OFFICER us Peter Marroquin MD POINT OF CARE TEST ORDERABLES Final Result TAYLOR ZUNIGA [address] [facility]. Department [place] [address] * Surgical pathology (03/10/2017 10:06 AM WATER RESOURCES TECHNICAL OFFICER) 03/10/2017 10:0 6 AM WATER RESOURCES TECHNICAL OFFICER 03/10/2017 12:43 PM WATER RESOURCES TECHNICAL OFFICER Narrative 03/13/2017 11:27 AM WATER RESOURCES TECHNICAL OFFICER [facility] [place] [address] SURGICAL PATHOLOGY REPORT FINAL Patient Name: AYDEN SANTOS ? Address: summer ??Service: ??Gastro ??[place], [place] [id number] ??Location: ??[facility] Taken: 03/10/2017 Gender: M ?? Received: 03/10/2017 : 1945 (Age: 71) ??Hospital #: [id number] Accessioned: 03/10/2017 ?Patient Type: ??WC SDS Reported: [...] for this case was performed at the [facility], ??[address] [place] ??[address] ?? CLIA # [id number] ? History: The patient is a 71-year-old [...] determined by the Surgical Pathology Department at [facility] as part of an ongoing senior quality analyst program and in compliance with federally [...] determined by the Surgical Pathology Department of [facility]. ??It has not been cleared or approved by the U. S. Food and Drug Administration. Peter Marroquin MD LAB PATHOLOGY ORDERABLES Final Result * Glucose POC (03/10/2017 9:21 AM WATER RESOURCES TECHNICAL OFFICER) Glucose, POC 162 70 - 199 mg/dL TAYLOR ZUNIGA Comment: Interpretive Data Glucose is assumed to be non-fasting. Fasting Glucose reference ranges are: 0 - 150 years: ??70 mg/dL - 99 mg/dL Current interpretive data was last revised on 2013. Blood specimen (specimen) 03/10/2017 9:21 AM WATER RESOURCES TECHNICAL OFFICER 03/10/2017 9:21 AM WATER RESOURCES TECHNICAL OFFICER Narrative TAYLOR ZUNIGA - 03/10/2017 9:23 AM WATER RESOURCES TECHNICAL OFFICER Peter Marroquin MD POINT OF CARE TEST ORDERABLES Final Result TAYLOR [facility] [address] [facility]. Department [place] [address] * SURGICAL PATHOLOGY (03/10/2017 12:00 AM WATER RESOURCES TECHNICAL OFFICER) Narrative 03/10/2017 12:00 AM WATER RESOURCES TECHNICAL OFFICER Ordered by an unspecified provider. Historical Provider LAB PATHOLOGY ORDERABLES Final Result * DISCHARGE LABORATORY CUMULATIVE REPORT (03/10/2017 12:00 AM WATER RESOURCES TECHNICAL OFFICER) Narrative 03/10/2017 12:00 AM WATER RESOURCES TECHNICAL OFFICER Ordered by an unspecified provider. Historical Provider LAB BLOOD ORDERABLES Anya l Result * COLONOSCOPY REPORT (03/10/2017) Anatomical Region Laterality Modality Other Provider Scanning GI PROCEDURE ORDERABLES Edited Result - Final documented in this encounter Visit Diagnoses Not on filedocumented in this encounter Care Teams Heavy Threader Relationship Specialty Start Date End Date Rickey Do MD PCP - General 05/20/16 11/08/20 documented as of this encounter
--- OUTSIDE RECORDS SUMMARY | 2024-02-10 05:43 | XMS_ITS | Encounter Summary ---
Author Organization [facility] Medical Group Address [address] [address] Care Team Providers Care Pattern Lease Inspector Name Role Phone Rickey Do MD Primary Care Provider [phone] Reason for Visit * Reason Comments Follow-up 1 month Encounter Details Date Type Department Care Team (Late st Contact Info) Description 01/11/2017 9:00 AM [employer] Office Visit [facility] [address] [place] [address] Xena Valencia, HEALTH TECHNICAL WRITER [address] [place] [address] Type 2 diabetes mellitus with other circulatory complication, unspecified halfway insulin use status (CMS/HCC) (Primary Dx); Benign [...] on file Legal Sex Male 11:37 AM AIRB[employer]S Gender Identity Not on file Sexual Orientation Not on file documented as of this encounter Last Filed Vital Signs Vital Sign Reading Time Taken Comments Blood Pressure 134/60 01/11/2017 9:10 AM [employer] Pulse 77 01/11/2017 9:10 AM [employer] Temperature - - Respiratory Rate - - Oxygen Saturation 97% 01/11/2017 9:10 AM [employer] Inhaled Oxygen Concentration - - Weight 115.4 kg (254 lb 6.4 oz) 01/11/2017 9:10 AM [employer] Height - - Body Mass Index 35.48 12/01/2016 10:06 AM CDT documented in this encounter Patient Instructions * Patient Instructions* Xena Valencia NP - 01/11/2017 9:00 AM [employer] Continue with synjardy at lunch Stop victoza Add xultophy which is tresiba insulin and victoza in one pen Start with 10 units once a day Call me every 3 days for instructions [employer] documented in this encounter Ordered Prescriptions Prescription [...] diabetes mellitus with other circulatory complication, unspecified halfway insulin use status ([facility]) (Primary) Assessment & Plan: [...] 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 2 diabetes mellitus ([facility]) Assessment & Plan: Lipid abnormalities are unchanged. Nutritional counseling was provided. and Pharmacotherapy as ordered. Lipids will be reassessed in 3 months. BMI 35.0-35.9,adult Assessment & Plan: BMI Follow-up includes: nutrition counseling, exercise counseling and education provided. [employer] documented in this encounter Miscellaneous Notes * Assessment & Plan Note - Xena Valencia NP - 02/16/2017 1:27 PM CSTAssociated Problem(s): Type 2 diabetes mellitus with circulatory disorder ([facility]/HCC) ([facility]) Stable Lab pending Reviewed past medication, [...] socks to avoid skin injury See orders [employer] * Assessment & Plan Note - Xena Valencia NP - 02/16/2017 1:27 PM CSTAssociated Problem(s): 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 2 diabetes mellitus ([facility]/HCC) ([facility]) Lipid abnormalities are unchanged. Nutritional counseling was provided. and Pharmacotherapy as ordered. Lipids will be reassessed in 3 months. [employer] * Assessment & Plan Note - Xena [...] agrees with plan of care See orders [employer] * Assessment & Plan Note - Xena [...] sun screen hat and sleeves See orders [employer] * Assessment & Plan Note - Lima Thorpe MA - 01/11/2017 9:12 AM CSTAssociated Problem(s): Class 2 severe obesity due to excess calories with serious comorbidity and body mass index (BMI) of 37.0 to 37.9 in adult (HCC) BMI Follow-up includes: nutrition counseling, exercise counseling and education provided. [employer] documented in this encounter Plan of Treatment Not on file documented as of this encounter Visit Diagnoses Diagnosis Type 2 diabetes mellitus with other circulatory complication, unspecified halfway insulin use status- Primary Benign hypertension, endocrine [...] documented as of this encounter Care Teams Pattern Lease Inspector Relationship Specialty Start Date End Date Rickey Do MD PCP - General 05/20/16 11/08/20 documented as of this encounter
--- OUTSIDE RECORDS SUMMARY | 2024-02-10 05:43 | XMS_ITS | Encounter Summary ---
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
--- OUTSIDE RECORDS SUMMARY | 2024-02-10 05:43 | XMS_ITS | Encounter Summary ---
Author Organization [facility] Medical [facility] Address [address] [place] [address] Care Team Providers Care Telephone Interviewer Name Role Phone Rickey Do MD Primary Care Provider Encounter Details Date Type Department Care Team (Late st Contact Info) Description 04/03/2017 Documentation [facility] [address] [facility] [address] [facility] [address] [place] [phone] Rickey Do MD [address] [place] [address] Social History Tobacco Use Types Packs/Day Years Used Date Smoking Tobacco: Former Smokeless Tobacco: Never Comments:Smoking History Pac ks/day: 1 Packs Alcohol Use Standard Drinks/Week Comments Yes 0 (1 standard drink = 0.6 oz pur e alcohol) Sex and Gender Information Value Date Recorded Sex Assigned at Not on file Legal Sex Male 11:37 AM ROOM SERVICE ASSOCIATE Gender Identity Not on file Sexual Orientation Not on file documented as of this encounter Progress Notes * Mary Lou Avilez MA - 04/03/2017 9:49 AM CST OMARI anton Xultophy approved by [employer] thru 02/19/18 Reference# [id number] SERVICE ASSOCIATE documented in this encounter Plan of Treatment Not on file documented as of this encounter Visit Diagnoses Not on filedocumented in this encounter Care Teams Telephone Interviewer Relationship Specialty Start Date End Date Rickey Do MD PCP - General 05/20/16 11/08/20 documented as of this encounter
--- OUTSIDE RECORDS SUMMARY | 2024-02-10 05:43 | XMS_ITS | Encounter Summary ---
Author Organization [facility] Medical Group Address [address] [address] Care Team Providers Care Rn Invasive Name Role Phone Rickey Do MD Primary Care Provider [phone] Reason for Visit * Reason Comments Diabetes Encounter Details Date Type Department Care Team (Late st Contact Info) Description 12/01/2016 10:00 AM CDT Office Visit [facility] [address] [address] Xena Valencia, PARK MAINTENANCE TECHNICIAN [address] [place], [place] [id number] Type 2 diabetes mellitus with other circulatory complication, unspecified long term care social worker insulin use status (CMS/HCC) (Primary Dx); Type 2 diabetes mellitus with other neurologic complication, unspecified penitentiary insulin use status (CMS/HCC); Benign hypertension, endocrine; [...] on file 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 Gender Identity Not on file Sexual [...] this encounter Progress Notes * Xena Valencia, PARK MAINTENANCE TECHNICIAN - 12/01/2016 10:00 AM CDT Subjective/Objective Patient [...] diabetes mellitus with other circulatory complication, unspecified penitentiary insulin use status ([facility]) (Primary) Assessment & Plan: Stable Lab pending [...] diabetes mellitus with other neurologic complication, unspecified penitentiary insulin use status ([facility]) Assessment & Plan: Stable Lab pending Reviewed [...] 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 2 diabetes mellitus ([facility]) Assessment & Plan: Lipid abnormalities are improving [...] diabetes mellitus with other circulatory complication, unspecified long term care social worker insulin use status ([facility]/HCC) URINALYSIS AND REFLEX TO MICROSCOPIC AND CULTURE Routine 12/01/2016 12:00 AM CDT Type 2 diabetes mellitus with other circulatory complication, unspecified penitentiary insulin use status ([facility]/HCC) ALBUMIN, RANDOM URINE WITHOUT CREATININE Routine 12/01/2016 12:00 AM CDT Type 2 diabetes mellitus with other circulatory complication, unspecified penitentiary insulin use status ([facility]) HEPATITIS C ANTIBODY Routine 12/01/2016 12:00 AM CDT Type 2 diabetes mellitus with other circulatory complication, unspecified penitentiary insulin use status ([facility]/HCC) HEMOGLOBIN A1C Routine 12/01/2016 12:00 AM CDT Type 2 diabetes mellitus with other circulatory complication, unspecified penitentiary insulin use status ([facility]/HCC) LIPID PANEL Routine 12/01/2016 12:00 AM CDT 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 2 diabetes mellitus ([facility]) COMPREHENSIVE METABOLIC PANEL Routine 12/01/2016 12:00 AM CDT Type 2 diabetes mellitus with other circulatory complication, unspecified penitentiary insulin use status ([facility]) documented in this encounter Results * Microscopic [...] AM CDT Performed at: ??01 - [facility] [address] ??[id number] Bailiff: Woodrow Michel PhD, Phone: ??[phone] Xena Valencia NP LAB BLOOD ORDERABLES [...] AM CDT Performed at: ??01 - [facility] [address] ??[id number] Bailiff: Woodrow Michel PhD, Phone: ??[phone] Xena Valencia NP LAB BLOOD ORDERABLES Final Result [facility] - [facility] * (ABNORMAL) Urinalysis reflex to microscopic and culture (12/01/2016 12:00 AM CDT) Specific [place] 1.024 1.005 - 1.030 [facility] - 01 [...] AM CDT Performed at: ??01 - [facility] [address] ??[id number] Bailiff: Woodrow Michel PhD, Phone: ??[phone] Xena Valencia PARK MAINTENANCE TECHNICIAN LAB MICROBIOLOGY - G ENERAL ORDERABLES Final Result [facility] - 01 * Microalbumin, urine, random (12/01/2016 12:00 AM CDT) Microalbumin, ur 54.0 Not Estab. ug/mL [facility] - 01 Urine 12/01/2016 12/01/2016 Narrative [facility] - 12/02/2016 11:14 AM CDT Performed at: ??01 - [facility] ??[id number] Bailiff: Woodrow Michel PhD, Phone: ??[phone] Xena Valencia PARK MAINTENANCE TECHNICIAN LAB URINE ORDERABLES Final Result Performing Organization Address [facility] Co de Phone Number [facility] [...] 11:14 AM CDT Performed at: ?? - [facility] ??[id number] Bailiff: Woodrow Michel PhD, Phone: ??[phone] Xena Valencia PARK MAINTENANCE TECHNICIAN LAB BLOOD ORDERABLES Final Result Performing Organization Address City/[facility]/ZIP Co de Phone Number [facility] - 01 * Hepatitis C antibody (12/01/2016 12:00 AM CDT) Pathologist [facility] Hep C Ab <0.1 0.0 - 0.9 s/co ratio [facility] - 01 Comment: ?Negative: ? < 0.8 ? Indeterminate: 0.8 - 0.9 ?Positive: ? > 0.9 The CDC recommends that a positive HCV antibody result be followed up with a HCV Nucleic Acid Amplification test (011531). Blood specimen (specimen) 12/01/2016 12/01/2016 Narrative [facility] - 12/02/2016 11:14 AM CDT Performed at: ??01 - [facility] [address] ??[id number] Bailiff: Woodrow Michel PhD, Phone: ??[phone] Xena Valencia PARK MAINTENANCE TECHNICIAN LAB MICROBIOLOGY - G ENERAL ORDERABLES Final Result [facility] - 01 * (ABNORMAL) Comprehensive metabolic panel (12/01/2016 12:00 AM CDT) Pathologist [facility] Glucose 148(H) 65 - 99 mg/dL [facility] [...] AM CDT Performed at: ?? - [facility] [address] ??[id number] Bailiff: Woodrow Michel PhD, Phone: ??[phone] Xena Valencia NP LAB BLOOD ORDERABLES Final Result Performing Organization Address City/State/[facility] Co de Phone Number [facility] - 01 documented in this encounter Visit Diagnoses Diagnosis Type 2 diabetes mellitus with other circulatory complication, unspecified penitentiary insulin use status- Primary Type 2 diabetes mellitus with other neurologic complication, unspecified long term care social worker insulin use status Benign hypertension, endocrine Other [...] diabetes mellitus with other circulatory complication, unspecified long term care social worker insulin use status Inject 0.5 mL into the shoulder, thigh, or buttocks once. 11/21/2016 8 added in this encounter Care Teams Rn Invasive Relationship Specialty Start Date End Date Rickey Do MD PCP - General 05/20/16 11/08/20 documented as of this encounter
--- OUTSIDE RECORDS SUMMARY | 2024-02-10 05:43 | XMS_ITS | Encounter Summary ---
Author Organization [facility] Address [address] [facility] [place] [address] Care Team Providers Care Wink Cutter Operator Name Role Phone Rickey Do MD Primary Care Provider [phone] Reason for Visit * Reason Onset Date Comments Dr Do/Xena Medical Question 09/12/2016 Encounter Details Date Type Department Care Team (Late st Contact Info) Description 09/12/2016 Telephone [facility] [address] [place] [address] Rickey Do MD [address] [facility] [address] [place] [phone] Dr Do/Xena Medical Question Social History Tobacco Use Types Packs/Day Years Used Date Smoking Tobacco: Former Cigarettes Q uit: 02/20/1985 Comments:Smoking History Pac ks/day: 1 Packs Alcohol Use Standard Drinks/Week Comments Yes 0 (1 standard drink = 0.6 oz pur e alcohol) Sex and Gender Information Value Date Recorded Sex Assigned at Not on file Legal Sex Male 11:37 AM 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 Bhakti can be reached at [phone]. documented in this encounter Plan of Treatment Not on file documented as of this encounter Visit Diagnoses Not on filedocumented in this encounter Care Teams Wink Cutter Operator Relationship Specialty Start Date End Date Rickey Do MD PCP - General 05/20/16 11/08/20 documented as of this encounter
--- OUTSIDE RECORDS SUMMARY | 2024-02-10 05:43 | XMS_ITS | Encounter Summary ---
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
--- OUTSIDE RECORDS SUMMARY | 2024-02-10 05:43 | XMS_ITS | Encounter Summary ---
Author Organization [facility] Address [address] 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 [...] 2 diabetes mellitus with circulatory disorder (CMS/HCC) ([facility]) Reviewed past medication, medical, surgical, family, [...] 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 2 diabetes mellitus ([facility]) ([facility]) Lipid abnormalities are unchanged. Nutritional counseling was provided. and Pharmacotherapy as ordered. Lipids will be reassessed in 3 months. * Assessment & Plan Note - Xena Valencia NP - 10/03/2016 8:44 PM CDTAssociated Problem(s): Class 2 severe obesity due to excess calories with serious comorbidity and body mass index (BMI) of 37.0 to 37.9 in adult ([facility]) BMI Follow-up includes: nutrition counseling, exercise [...] as of this encounter Care Teams Senior Statistician Relationship Specialty Start Date End Date Rickey Do MD PCP - General 05/20/16 11/08/20 documented as of this encounter
--- OUTSIDE RECORDS SUMMARY | 2024-02-10 05:43 | XMS_ITS | Encounter Summary ---
Author Organization [facility] Address [address] [address] Care Team Providers Care Web Merchandiser Name Role Phone Rcikey Do MD Primary Care Provider [phone] Reason for Visit * Reason Comments Diabetes Encounter Details Date Type Department Care Team (Late st Contact Info) Description 03/27/2017 9:30 AM LEATHER STAKER Office Visit [facility] [address] [address] [place] [address] Xena Valencia, PRESSURISED CONTAINER FILLER [address] [place] [address] Type 2 diabetes mellitus with diabetic mononeuropathy, with long-term current use of insulin (CMS/HCC) (Primary Dx); Type 2 diabetes mellitus with other circulatory complication, unspecified intermodal dispatcher insulin use status (CMS/HCC); Peripheral neuropathy due [...] on file Legal Sex Male 11:37 AM LEATHER STAKER Gender Identity Not on file Sexual Orientation Not on file documented as of this encounter Last Filed Vital Signs Vital Sign Reading Time Taken Comments Blood Pressure 136/60 03/27/2017 9:43 AM LEATHER STAKER Pulse 74 03/27/2017 9:43 AM LEATHER STAKER Temperature - - Respiratory Rate 16 03/27/2017 9:43 AM LEATHER STAKER Oxygen Saturation 96% 03/27/2017 9:43 AM LEATHER STAKER Inhaled Oxygen Concentration - - Weight 116.1 kg (256 lb) 03/27/2017 9:43 AM LEATHER STAKER Height 180.3 cm (5' 11 ) 03/27/2017 9:43 AM LEATHER STAKER Body Mass Index 35.7 03/27/2017 9:43 AM LEATHER STAKER documented in this encounter Ordered Prescriptions Prescription Sig Dispense Quantity Refills Last Filled Start Date End Date insulin degludec-liragluti de 100 unit-3.6 mg /mL (3 mL) insulin penIndications:Typ e 2 diabetes mellitus with diabetic mononeuropathy, with long-term current use of insulin (HCC) Inject 24 Units under the skin daily. 9 Syringe 3 03/27/2017 06/26/2017 documented in this encounter Progress Notes * Xena Valencia, PRESSURISED CONTAINER FILLER - 03/27/2017 9:30 AM CST Subjective/Objective Patient [...] mononeuropathy, with long-term current use of insulin ([facility]) (Primary) Assessment & Plan: Stable Lab pending [...] diabetes mellitus with other circulatory complication, unspecified fpc insulin use status ([facility]) Assessment & Plan: Stable Lab pending Reviewed [...] 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 2 diabetes mellitus ([facility]) Assessment & Plan: Lipid abnormalities are unchanged. [...] the skin daily. 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 Nutritional counseling was provided. and Pharmacotherapy as ordered. Lipids will be reassessed in 3 months see orders. HER STAKER * Assessment & Plan Note - Xena [...] sun screen hat and sleeves See orders HER STAKER * Assessment & Plan Note - Elsi Villaseñor MA - 03/27/2017 9:43 AM LEATHER STAKER Associated Problem(s): Class 2 severe obesity due to excess calories with serious comorbidity and body mass index (BMI) of 37.0 to 37.9 in adult ([facility]) BMI Follow-up includes: nutrition counseling, exercise counseling and education provided. HER STAKER documented in this encounter Plan of Treatment Scheduled Orders Name Type Priority Associated Diagnoses Orde r Schedule Microalbumin, urine, random Lab Routine Type 2 diabetes mellitus with diabetic mononeuropathy, with long-term current use of insulin ([facility]) Expected: 03/27/2017, Expires: 03/27/2018 documented as of this encounter Procedures Procedure Name Priority Date/Time Associated Diagnosis Comments ALBUMIN, RANDOM URINE WITHOUT CREATININE Routine 03/27/2017 10:18 AM LEATHER STAKER Type 2 diabetes mellitus with diabetic mononeuropathy, with long-term current use of insulin ([facility]) HEMOGLOBIN A1C Routine 03/27/2017 10:18 AM LEATHER STAKER Type 2 diabetes mellitus with diabetic mononeuropathy, with long-term current use of insulin ([facility]) LIPID PANEL Routine 03/27/2017 10:18 AM LEATHER STAKER Type 2 diabetes mellitus with diabetic mononeuropathy, with long-term current use of insulin ([facility]) COMPREHENSIVE METABOLIC PANEL Routine 03/27/2017 10:18 AM LEATHER STAKER Type 2 diabetes mellitus with diabetic mononeuropathy, with long-term current use of insulin ([facility]) DIABETES EYE EXAM Routine 03/20/2017 Type 2 diabetes mellitus with diabetic mononeuropathy, with long-term current use of insulin ([facility]) documented in this encounter Results * Microalbumin, urine, random (03/27/2017 10:18 AM LEATHER STAKER) Microalbumin, ur 51.3 Not Estab. ug/mL [facility] - 01 03/27/2017 10:1 8 AM LEATHER STAKER 03/27/2017 Narrative [facility] - 03/28/2017 9:18 AM LEATHER STAKER Performed at: ??01 - [facility] [address] ??[id number] Manager Creative Services: Woodrow Michel PhD, Phone: ??[phone] us Xena Valencia NP LAB URINE ORDERABLES Final Result [facility] - 01 * (ABNORMAL) Hemoglobin A1c (03/27/2017 10:18 AM LEATHER STAKER) Hgb A1C 7.4(H) 4.8 - 5.6 % [facility] - 01 Comment: ? Pre-diabetes: 5.7 - 6.4 ? Diabetes: >6.4 ? Glycemic control for adults with diabetes: <7.0 Blood specimen (specimen) 03/27/2017 10:18 AM LEATHER STAKER 03/27/2017 Narrative [facility] - 03/28/2017 9:18 AM LEATHER STAKER Performed at: ??01 - [facility] [address] ??[id number] Manager Creative Services: Woodrow Michel PhD, Phone: ??[phone] Xena Valencia NP LAB BLOOD ORDERABLES Final Result Performing Organization Address [facility] de Phone Number [facility] - * (ABNORMAL) Lipid panel (03/27/2017 10:18 AM LEATHER STAKER) Cholesterol 133 100 - 199 mg/dL [facility] - 01 Triglycerides 147 0 - 149 mg/dL [facility] - 01 HDL Cholesterol 39(L) >39 mg/dL [facility] - 01 VLDL 29 5 - 40 mg/dL [facility] - 01 LDL, calculated 65 0 - 99 mg/dL [facility] - 01 Blood specimen (specimen) 03/27/2017 10:18 AM LEATHER STAKER 03/27/2017 Narrative [facility] - 03/28/2017 9:18 AM LEATHER STAKER Performed at: ??01 - [facility] [address] ??[id number] Manager Creative Services: Woodrow Michel PhD, Phone: ??[phone] Xena Valencia NP LAB BLOOD ORDERABLES Final Result Performing Organization Address [facility] de Phone Number [facility] - * (ABNORMAL) Comprehensive metabolic panel (03/27/2017 10:18 AM LEATHER STAKER) Glucose 165(H) 65 - 99 mg/dL [facility] [...] 01 Blood specimen (specimen) 03/27/2017 10:18 AM LEATHER STAKER 03/27/2017 Narrative [facility] - 03/28/2017 9:18 AM LEATHER STAKER Performed at: ??01 - [facility] [address] ??[id number] Manager Creative Services: Woodrow Michel PhD, Phone: ??[phone] Xena Valencia NP LAB BLOOD ORDERABLES Final Result Performing Organization Address City/State/[facility] Co de Phone Number [facility] - 01 * DIABETES EYE EXAM (03/20/2017) Diabetic Eye Exam Normal us Historical Provider MD HEALTH MAINTENANCE Final Result documented in this encounter Visit Diagnoses Diagnosis Type 2 diabetes mellitus with diabetic mononeuropathy, with long-term current use of insulin (HCC)- Primary Type 2 diabetes mellitus with other circulatory complication, unspecified fpc insulin use status 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
--- OUTSIDE RECORDS SUMMARY | 2024-02-10 05:43 | XMS_ITS | Encounter Summary ---
Author Organization [facility] Address [address] [place] [address] Care Team Providers Care Litharge Supervisor Name Role Phone Rickey Do MD Primary Care Provider Encounter Details Date Type Department Care Team (Late st Contact Info) Description 03/31/2017 Orders Only [facility] [address] [place] [phone] Marisela Hunter Social History Tobacco Use Types Packs/Day Years Used Date Smoking Tobacco: Former Smokeless Tobacco: Never Comments:Smoking History Pac ks/day: 1 Packs Alcohol Use Standard Drinks/Week Comments Yes 0 (1 standard drink = 0.6 oz pur e alcohol) Sex and Gender Information Value Date Recorded Sex Assigned at Not on file Legal Sex Male 11:37 AM MANAGER DAIRY Gender Identity Not on file Sexual Orientation Not on file documented as of this encounter Plan of Treatment Not on file documented as of this encounter Visit Diagnoses Not on filedocumented in this encounter Care Teams Litharge Supervisor Relationship Specialty Start Date End Date Rickey Do MD PCP - General 05/20/16 11/08/20 documented as of this encounter
--- OUTSIDE RECORDS SUMMARY | 2024-02-10 05:43 | XMS_ITS | Encounter Summary ---
Author Organization [facility] Address [address] [place] [address] Care Team Providers Care Driver License Examiner Name Role Phone Rickey Do MD Primary Care Provider [phone] Reason for Visit * Reason Onset Date Comments Ernestina-Medical Question 03/07/2017 Encounter Details Date Type Department Care Team (Late st Contact Info) Description 03/07/2017 Telephone [facility] [address] [place] [address] Rickey Do MD [address] [facility] [address] [place] [address] Ernestina-Medical Question Social History Tobacco Use Types Packs/Day Years Used Date Smoking Tobacco: Former Smokeless Tobacco: Never Comments:Smoking History Pac ks/day: 1 Packs Alcohol Use Standard Drinks/Week Comments Yes 0 (1 standard drink = 0.6 oz pur e alcohol) Sex and Gender Information Value Date Recorded Sex Assigned at Not on file Legal Sex Male 11:37 AM MAINTENANCE ENGINEER Gender Identity Not on file Sexual Orientation Not on file documented as of this encounter Miscellaneous Notes * Telephone Encounter - Mary Lou Avilez MA - 03/08/2017 3:37 PM CST Spoke to pt and relayed message. Pt understood. TENANCE ENGINEER * Telephone Encounter - Xena Valencia NP - 03/08/2017 9:57 AM MAINTENANCE ENGINEER Only take half the night before and if eats well later in the day may take full dose the night after No meal time insulin and no oral pills for diabetes 2 days prior to the test and 2 days after the test TENANCE ENGINEER * Telephone Encounter - Mary Lou Avilez MA - 03/07/2017 11:06 AM MAINTENANCE ENGINEER Please advise. TENANCE ENGINEER * Telephone Encounter - Ghada So - 03/07/2017 10:21 AM MAINTENANCE ENGINEER Patient calling to get instructions on what to do regarding his insulin for his upcoming colonoscopy. He is on #16 on the pen,. Please assist. TENANCE ENGINEER documented in this encounter Plan of Treatment Not on file documented as of this encounter Visit Diagnoses Not on filedocumented in this encounter Care Teams Driver License Examiner Relationship Specialty Start Date End Date Rickey Do MD PCP - General 05/20/16 11/08/20 documented as of this encounter
--- OUTSIDE RECORDS SUMMARY | 2024-02-10 05:43 | XMS_ITS | Encounter Summary ---
Author Organization [facility] Address [address] [facility] [address] [place] [address] Care Team Providers Care Sanitation Laborer Name Role Phone Rickey Do MD Primary Care Provider [phone] Reason for Referral * Physical Therapy (Emergency) - Closed Specialty Diagnoses / Procedures Referred By Jp t Referred To Contact Physical Therapy Diagnoses DDD (degenerative disc disease), cervical DDD (degenerative disc disease), thoracic DDD (degenerative disc disease), lumbar Xena Valencia NP Phone: tel: fax: Referral ID Status Reason Start Date Expiration Date V isits Requested Visits Authorized [id number] Closed Specialty Services Required 09/09/2016 03/08/2017 12 12 Question Answer PTRFR PT Evaluate and Treat Therapy options discussed with patient? Yes Location provided for therapy services is: Patient requested/Patient preferred Comments Refer to Angelina Garrido at [facility] Reason for Visit * Reason Comments Diabetes Encounter Details Date Type Department Care Team (Late Contact Info) Description 09/09/2016 10:00 AM CDT Office Visit [facility] [address] [facility] [address] [facility] [address] Xena Valencia NP [address] [place] [address] [place] [address] DDD (degenerative disc disease), cervical [...] on file Legal Sex Male 11:37 AM CREW FOREMAN Gender Identity Not on file Sexual [...] 2 diabetes mellitus with other circulatory complication ([facility]) Assessment & Plan: Reviewed past medication, medical, [...] without long- term current use of insulin ([facility]) Assessment & Plan: Reviewed past medication, medical, [...] Peripheral neuropathy due to disorder of metabolism ([facility]) Benign hypertension, endocrine Other secondary hypertension, benign [...] documented as of this encounter Care Teams Sanitation Laborer Relationship Specialty Start Date End Date Rickey Do MD PCP - General 05/20/16 11/08/20 documented as of this encounter
--- OUTSIDE RECORDS SUMMARY | 2024-02-10 05:43 | XMS_ITS | Encounter Summary ---
Author Organization [facility] Address [address] [facility] [address] [place] [address] Care Team Providers Care Health Counselor Name Role Phone Rickey Do MD Primary Care Provider [phone] Reason for Visit * Reason Comments Diabetes FOLLOW UP Encounter Details Date Type Department Care Team (Late st Contact Info) Description 02/21/2017 9:00 AM PUBLICATION MANAGER Office Visit [facility] [address] [place] [address] Beba Diamond, RN NEW GRADUATE [address] [facility] [address] [place] [address] Type 2 diabetes mellitus with other circulatory complication, unspecified senior care insulin use status ([facility]) (Primary Dx); BMI 35.0-35.9,adult; Screening for colon cancer Social History Tobacco Use Types Packs/Day Years Used Date Smoking Tobacco: Former Smokeless Tobacco: Never Comments:Smoking History Pac ks/day: 1 Packs Alcohol Use Standard Drinks/Week Comments Yes 0 (1 standard drink = 0.6 oz pur e alcohol) Sex and Gender Information Value Date Recorded Sex Assigned at Not on file Legal Sex Male 11:37 AM PUBLICATION MANAGER Gender Identity Not on file Sexual Orientation Not on file documented as of this encounter Last Filed Vital Signs Vital Sign Reading Time Taken Comments Blood Pressure 128/68 02/21/2017 8:41 AM PUBLICATION MANAGER Pulse 68 02/21/2017 8:41 AM PUBLICATION MANAGER Temperature - - Respiratory Rate - - Oxygen Saturation 98% 02/21/2017 8:41 AM PUBLICATION MANAGER Inhaled Oxygen Concentration - - Weight 115.8 kg (255 lb 3.2 oz) 02/21/2017 8:41 AM PUBLICATION MANAGER Height - - Body Mass Index 35.59 [...] receptor priscilla is being taken. 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 ICATION MANAGER documented in this encounter Miscellaneous Notes * Assessment & Plan Note - Beba Diamond NP - 02/21/2017 9:17 AM PUBLICATION MANAGER Associated Problem(s): History of colon polyps 02/22/10 Dr. Marroquin, polyp, due x 5 years. Patient has scheduled. ICATION MANAGER * Assessment & Plan Note - Beba Diamond NP - 02/21/2017 9:11 AM PUBLICATION MANAGER Associated Problem(s): Type 2 diabetes mellitus [...] or heart attack. Patient chantal balized understanding. ICATION MANAGER * Assessment & Plan Note - Lima Thorpe MA - 02/21/2017 8:46 AM CSTAssociated Problem(s): Class 2 severe obesity due to excess calories with serious comorbidity and body mass index (BMI) of 37.0 to 37.9 in adult ([facility]) BMI Follow-up includes: nutrition counseling, exercise counseling and education provided. ICATION MANAGER documented in this encounter Plan of Treatment Not on file documented as of this encounter Procedures Procedure Name Priority Date/Time Associated Diagnosis Comments BASIC METABOLIC PANEL Routine 02/21/2017 12:00 AM PUBLICATION MANAGER Type 2 diabetes mellitus with other circulatory complication, unspecified senior care insulin use status ([facility]) DIABETES EYE EXAM Routine 03/22/2016 COLONOSCOPY Routine 02/22/2010 documented in this encounter Results * (ABNORMAL) Basic metabolic panel (02/21/2017 12:00 AM PUBLICATION MANAGER) Glucose 181(H) 65 - 99 mg/dL [facility] [...] 02/21/2017 Narrative [facility] - 02/22/2017 5:10 AM PUBLICATION MANAGER Performed at: ??01 - [facility] [address] ??[id number] Utility Worker: Woodrow Michel PhD, Phone: ??[phone] Beba Diamond RN NEW GRADUATE LAB BLOOD ORDERABLES Final R esult [facility] - 01 * DIABETES EYE EXAM (03/22/2016) Diabetic Eye Exam Normal Historical Provider HEALTH MAINTENANCE Final Result * COLONOSCOPY (02/22/2010) Colonoscopy Abnormal Historical Provider HEALTH MAINTENANCE Final Result documented in this encounter Visit Diagnoses Diagnosis Type 2 diabetes mellitus with other circulatory complication, unspecified 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
--- OUTSIDE RECORDS SUMMARY | 2024-02-10 05:43 | XMS_ITS | Encounter Summary ---
Author Organization [facility] Address [address] [facility] [address] [place] [address] Care Team Providers Care Elastic Attacher Zigzag Name Role Phone Rickey Do MD Primary Care Provider [phone] Encounter Details Date Type Department Care Team (Late st Contact Info) Description 10/14/2016 Orders Only [facility] [address] [facility] [address] [facility] [address] [place] [phone] Xena Valencia, MAINSTREAMING FACILITATOR [address] [place] [address] Social History Tobacco Use Types [...] file Legal Sex Male 11:37 AM STRATEGIC PARTNERSHIP MANAGER Gender Identity Not on file Sexual [...] documented as of this encounter Care Teams Elastic Attacher Zigzag Relationship Specialty Start Date End Date Rickey Do MD PCP - General 05/20/16 11/08/20 documented as of this encounter
--- OUTSIDE RECORDS SUMMARY | 2024-02-10 05:43 | XMS_ITS | Encounter Summary ---
Author Organization [facility] Address [address] [facility] [address] [place] [address] Care Team Providers Care Hat Lacer Name Role Phone Rickey Do MD Primary Care Provider [phone] Encounter Details Date Type Department Care Team (Late st Contact Info) Description 02/01/2017 Orders Only [facility] [address] [facility] [address] [place] [address] Lucia Figueroa MA Hx of colonic polyps [...] on file Legal Sex Male 11:37 AM ECONOMIC HISTORY TEACHER Gender Identity Not on file Sexual [...] polyps documented in this encounter Care Teams Hat Lacer Relationship Specialty Start Date End Date Rickey Do MD PCP - General 05/20/16 11/08/20 documented as of this encounter
--- OUTSIDE RECORDS SUMMARY | 2024-02-10 05:43 | XMS_ITS | Encounter Summary ---
Author Organization [facility] Address [address] [facility] [address] [place] [address] Care Team Providers Care Hacksaw Inspector Name Role Phone Rickey Do MD Primary Care Provider [phone] Reason for Visit * Reason Onset Date Comments Test Results 03/15/2017 colonoscopy Encounter Details Date Type Department Care Team (Late st Contact Info) Description 03/15/2017 Telephone [facility] [address] [phone] Peter Mensah MD [address] [place] [address] [address] [place] [address] Test Results (colonoscopy) Social History Tobacco Use Types Packs/Day Years Used Date Smoking Tobacco: Former Smokeless Tobacco: Never Comments:Smoking History Pac ks/day: 1 Packs Alcohol Use Standard Drinks/Week Comments Yes 0 (1 standard drink = 0.6 oz pur e alcohol) Sex and Gender Information Value Date Recorded Sex Assigned at Not on file Legal Sex Male 11:37 AM HAIR PREPARER Gender Identity Not on file Sexual Orientation Not on file documented as of this encounter Miscellaneous Notes * Telephone Encounter - Katarina Tillman - 03/15/2017 3:39 PM HAIR PREPARER Pt informed 1 polyp was precancerous and the other three were no precancerous. He will repeat colonoscopy in [address] mensah PREPARER * Telephone Encounter - Katarina Tillman - 03/15/2017 3:39 PM HAIR PREPARER ----- Message from Peter Mensah MD sent at 03/13/2017 1:39 PM HAIR PREPARER ----- Please notify the patient that of the 4 polyps removed at his recent colonoscopy, 1 was a precancerous tubular adenoma and the other 3 were neither cancerous nor precancerous. Please again advise the patient have yearly FITs and colonoscopy in 3 years. PREPARER documented in this encounter Plan of Treatment Not on file documented as of this encounter Visit Diagnoses Not on filedocumented in this encounter Care Teams Hacksaw Inspector Relationship Specialty Start Date End Date Rickey Do MD PCP - General 05/20/16 11/08/20 documented as of this encounter
--- OUTSIDE RECORDS SUMMARY | 2024-02-10 05:43 | XMS_ITS | Encounter Summary ---
Author Organization [facility] Address [address] [facility] [address] [place] [address] Care Team Providers Care Freezer Person Name Role Phone Rickey Do MD Primary Care Provider [phone] Reason for Visit * Reason Onset Date Comments [address]-Prior Authorization 03/29/2017 Encounter Details Date Type Department Care Team (Late st Contact Info) Description 03/29/2017 Telephone [facility] [address] [facility] [address] [place] [address] Rickey Do MD [address] [facility] [address] [place] [phone]-Prior Authorization Social History Tobacco Use Types Packs/Day Years Used Date Smoking Tobacco: Former Smokeless Tobacco: Never Comments:Smoking History Pac ks/day: 1 Packs Alcohol Use Standard Drinks/Week Comments Yes 0 (1 standard drink = 0.6 oz pur e alcohol) Sex and Gender Information Value Date Recorded Sex Assigned at Not on file Legal Sex Male 11:37 AM GOLF COURSE ASSISTANT Gender Identity Not on file Sexual Orientation Not on file documented as of this encounter Miscellaneous Notes * Telephone Encounter - Mary Lou Avilez MA - 04/03/2017 12:29 PM GOLF COURSE ASSISTANT OMARI completed and approved thru 02/19/18 COURSE ASSISTANT * Telephone Encounter - Elsi Villaseñor MA - 03/31/2017 2:28 PM GOLF COURSE ASSISTANT rx by xena COURSE ASSISTANT * Telephone Encounter - Kari Godoy - 03/29/2017 1:23 PM CST See message COURSE ASSISTANT * Telephone Encounter - Oralia Edge - 03/29/2017 12:48 PM CST Yolanda jones/Bartolome is requesting Dr. Do's secretary administrative assistant/nurse contact her to answer questions pertaining to the prior authorization for the [employer]. Yolanda can be reached at [phone]. COURSE ASSISTANT documented in this encounter Plan of Treatment Not on file documented as of this encounter Visit Diagnoses Not on filedocumented in this encounter Care Teams Freezer Person Relationship Specialty Start Date End Date Rickey Do MD PCP - General 05/20/16 11/08/20 documented as of this encounter
--- OUTSIDE RECORDS SUMMARY | 2024-02-10 05:43 | XMS_ITS | Encounter Summary ---
Author Organization [facility] Address [address] [facility] [address] [place] [address] Care Team Providers Care Car Starter Name Role Phone Rickey Do MD Primary Care Provider [phone] Reason for Visit * Reason Onset Date Comments Ernestina-med refill 09/15/2016 Encounter Details Date Type Department Care Team (Late st Contact Info) Description 09/15/2016 Telephone [facility] [address] [facility] [address] [place] [phone] Rickey Do MD [address] [facility] [address] [place] [phone] Ernestina-med refill Social History Tobacco Use Types Packs/Day Years Used Date Smoking Tobacco: Former Cigarettes Q uit: 02/20/1985 Comments:Smoking History Pac ks/day: 1 Packs Alcohol Use Standard Drinks/Week Comments Yes 0 (1 standard drink = 0.6 oz pur e alcohol) Sex and Gender Information Value Date Recorded Sex Assigned at Not on file 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
--- OUTSIDE RECORDS SUMMARY | 2024-02-10 05:43 | XMS_ITS | Encounter Summary ---
Author Organization [facility] Address [address] [address] Care Team Providers Care Legal Administrative Secretary Name Role Phone Rickey Do MD Primary Care Provider [phone] Reason for Visit * Reason Comments Diabetes Hypertension Hyperlipidemia Encounter Details Date Type Department Care Team (Late st Contact Info) Description 11/01/2016 9:00 AM CDT Office Visit [facility] [address] [facility] [address] [place] [address] Xena Valencia, PLASTICS SPREADING MACHINE OPERATOR [address] [facility] [address] Type 2 diabetes mellitus with [...] on file 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 [...] 37.9 in adult ([facility]) BMI Follow-up includes: nutrition counseling, exercise counseling [...] documented as of this encounter Care Teams Legal Administrative Secretary Relationship Specialty Start Date End Date Rickey Do MD PCP - General 05/20/16 11/08/20 documented as of this encounter
--- OUTSIDE RECORDS SUMMARY | 2024-02-10 05:44 | XMS_ITS | Encounter Summary ---
Author Organization [facility] Facility Care Team Providers Care Gas Leak Tester Name Role Phone Rickey Do MD Primary Care Provider Encounter Details Date Type Department Care Team (Late st Contact Info) Description 02/11/2015 7:15 AM RENEWALS SPECIALIST - 02/11/2015 11:59 PM RENEWALS SPECIALIST Hospital Encounter [facility] Rickey Do MD [address] [place] [address] Xena Valencia, MINE SAFETY DIRECTOR [address] [facility] [place] [address] Angina pectoris (CMS/HCC) Social History Tobacco Use Types Packs/Day Years Used Date Smoking Tobacco: Former Cigarettes Q uit: 02/20/1985 Comments:Smoking History Pac ks/day: 1 Packs Alcohol Use Standard Drinks/Week Comments Yes 0 (1 standard drink = 0.6 oz pur e alcohol) Sex and Gender Information Value Date Recorded Sex Assigned at Not on file Legal Sex Male 11:37 AM RENEWALS SPECIALIST Gender Identity Not on file Sexual [...] pectoris documented in this encounter Care Teams Gas Leak Tester Relationship Specialty Start Date End Date Rickey Do MD PCP - General 11/24/08 12/02/15 documented as of this encounter
--- OUTSIDE RECORDS SUMMARY | 2024-02-10 05:44 | XMS_ITS | Encounter Summary ---
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 EXAM: XR Thoracic Spine 2 View [id number] AP, lateral, and swimmer's HISTORY: peripheral neuropathy. [...] ??ANMOL DO Requesting: ??XENA VALENCIA Requesting Fax: ??[phone] Attending Fax: ??[phone] Attending ID: ??[id number] Requesting ID: ??[id number] Report To 1 ID: ??[id number] Report To 1 Name: ??ANMOL DO Report To 1 FAX: ??[phone] NextGen Order #: ??[id number] Procedure Note Miscellaneous, Not In File / Provider, MD Migue - 09/06/2016 XR Thoracic Spine 2 View [id number] Acc#: [id number] DATE OF EXAM: Sep 05 2016 EXAM: XR Thoracic Spine 2 View [id number] AP, lateral, and swimmer's HISTORY: peripheral neuropathy. [...] on: Sep 05 2016 7:55A Transcribed by: [facility] On: Sep 05 2016 7:53A Approved Electronically by: SHANE DECKER M.D. on: Sep 05 2016 7:53A Ordering DR: XENA VALENCIA Attending DR: ANMOL DO Attending: ANMOL DO Requesting: XENA VALENCIA Requesting Attending Attending ID: [id number] Requesting ID: [id number] Report To 1 ID: [id number] Report To 1 Name: ANMOL DO Report To 1 FAX: [phone] NextGen Order #: [id number] us Xena Valencia BOOK CRITIC IMG XR PROCEDURES Fi nal Result * (ABNORMAL) Creatinine, whole blood (09/05/2016 6:55 AM CDT) Creatinine, bld 1.34(H) 0.60 - 1.30 mg/dL [facility] ([place]) Blood specimen (specimen) 09/05/2016 6:55 AM CDT 09/05/2016 6:58 AM CDT us Anmol Do MD LAB BLOOD ORDERABLES Final Res ult [facility]AYL[facility] BENT[facility] ([place]) [address] [facility] [place] [address] documented in this encounter Visit Diagnoses Not on filedocumented in this encounter Care Teams Risk Management Intern Relationship Specialty Start Date End Date Anmol Do MD PCP - General 05/20/16 11/08/20 documented as of this encounter
--- OUTSIDE RECORDS SUMMARY | 2024-02-10 05:44 | XMS_ITS | Encounter Summary ---
Author Organization [facility] Address [address] [facility] [address] [place] [address] Care Team Providers Care Burn Nurse Name Role Phone Rickey Do MD Primary Care Provider [phone] Reason for Visit * Reason Onset Date Comments Dr Do/Medical Question 08/22/2016 Encounter Details Date Type Department Care Team (Late st Contact Info) Description 08/22/2016 Telephone [facility] [address] [facility] [address] [place] [address] Rickey Do MD [address] [place] [phone] Dr Do/Medical Question Social History Tobacco Use Types Packs/Day Years Used Date Smoking Tobacco: Former Cigarettes Q uit: 02/20/1985 Comments:Smoking History Pac ks/day: 1 Packs Alcohol Use Standard Drinks/Week Comments Yes 0 (1 standard drink = 0.6 oz pur e alcohol) Sex and Gender Information Value Date Recorded Sex Assigned at Not on file 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 Gender Identity Not on file Sexual Orientation Not on file documented as of this encounter Miscellaneous Notes * Telephone Encounter - Tiffanie Santa - 09/02/2016 1:[address] order faxed to [phone] as requested, confirmation sent to scan * Telephone Encounter - Ayleen Carrion - 09/02/2016 11:43 AM CDT See message * Telephone Encounter - Danelle Spence - 09/02/2016 10:29 AM CDT Mariely with [facility] CT dept asking for CT Order of Abdomen to be faxed to [phone] ph: [phone] Appointment Monday * Telephone Encounter - Lexis Williamson - 08/22/2016 1:06 PM CDT Left detailed message on patient's voicemail that I scheduled patient EMG and CT abd/pelvis on 09/05/16 with a 7:!5am arrival time at [facility]. Orders were faxed. No pre-cert required per [facility] online for CT abd/pelvis documented in this encounter Plan of Treatment Not on file documented as of this encounter Visit Diagnoses Not on filedocumented in this encounter Care Teams Burn Nurse Relationship Specialty Start Date End Date Rickey Do MD PCP - General 05/20/16 11/08/20 documented as of this encounter
--- OUTSIDE RECORDS SUMMARY | 2024-02-10 05:44 | XMS_ITS | Encounter Summary ---
Author Organization [facility] Facility Care Team Providers Care Medical Records Field Technician Name Role Phone Rickey Do MD Primary Care Provider [phone] Encounter Details Date Type Department Care Team (Latest Contact Info) Description 03/02/2015 6:50 AM ROLLING UP MACHINE OPERATOR - 03/02/2015 12:46 PM ROLLING UP MACHINE OPERATOR Hospital Encounter [facility] Farrukh Jiménez MD [address] [facility] [address] [place] [address] Atherosclerotic heart disease of [place] coronary artery without angina pectoris; Abnormal result [...] on file Legal Sex Male 11:37 AM ROLLING UP MACHINE OPERATOR Gender Identity Not on file [...] PROTHROMBIN TIME (PT) Routine 03/02/2015 8:01 AM ROLLING UP MACHINE OPERATOR PLASMA PARTIAL THROMBOPLASTIN TIME (PTT) Routine 03/02/2015 8:01 AM ROLLING UP MACHINE OPERATOR PLASMA LIPID PANEL Routine 03/02/2015 8: 01 AM ROLLING UP MACHINE OPERATOR PLASMA BASIC METABOLIC PANEL Routine 03/02/2015 8:01 AM ROLLING UP MACHINE OPERATOR PLASMA ASPARTATE TRANSAMINASE (AST) Routine 03/02/2015 8:01 AM ROLLING UP MACHINE OPERATOR BLOOD CELL COUNT (CBC), MORPHOLOGIC EXAM Routine 03/02/2015 8:01 AM ROLLING UP MACHINE OPERATOR CARDIAC CATH DIAGRAM 03/02/2015 DISCHARGE LABORATORY CUMULATIVE REPORT 03/02/2015 CARDIAC CATHETERIZATION 03/02/19 16 12:00 AM ROLLING UP MACHINE OPERATOR documented in this encounter Results * (ABNORMAL) Blood cell count (CBC), morphologic exam (03/02/2015 8:01 AM ROLLING UP MACHINE OPERATOR) WBC 10.5 4.5 - 11.0 K/cumm HISTORICAL [...] RESULTS Blood specimen (specimen) 03/02/2015 8:01 AM ROLLING UP MACHINE OPERATOR us Farrukh Jiménez MD LAB BLOOD ORDERABLES Final Result HISTORICAL RESULTS * Plasma prothrombin time (PT) (03/02/2015 8:01 AM ROLLING UP MACHINE OPERATOR) Prothrombin time (PT) 10.5 10.0 - 13.0 seconds HISTORICAL RESULTS INR 0.9 0.9 - 1.2 HISTORICAL RESULTS Comment: INDICATION: ORTHOPEDIC Total Hip and Knee Arthroplasty 1.8 to 2.6 Hip Fracture 1.8 to 2.6 CARDIOLOGY Atrial Fibrillation 2.0 to 3.0 Cardiomyopathy 2.0 to 3.0 Myocardial Infarction 2.0 to 3.0 Non-[place] Valves 2.0 to 3.5 TREATMENT OF VENOUS THRMBOSIS Deep Vein Thrombosis 2.0 to 3.0 Pulmonary Embolism 2.0 to 3.0 Plasma 03/02/2015 8:01 AM ROLLING UP MACHINE OPERATOR Farrukh Jiménez MD LAB BLOOD ORDERABLES Final Result Performing Organization Address [facility] de Phone Number HISTORICAL RESULTS * Plasma partial thromboplastin time (PTT) (03/02/2015 8:01 AM ROLLING UP MACHINE OPERATOR) Pathologist [facility] APTT 33.3 26.0 - 36.0 seconds HISTORICAL RESULTS Comment: ? Therapeutic Heparin Range: 52 - 80 seconds Plasma 03/02/2015 8:01 AM ROLLING UP MACHINE OPERATOR Farrukh Jiménez MD LAB BLOOD ORDERABLES Final Result Performing Organization Address [facility] de Phone Number HISTORICAL RESULTS * (ABNORMAL) Plasma basic metabolic panel (03/02/2015 8:01 AM ROLLING UP MACHINE OPERATOR) Sodium 135(L) 136 - 146 mmol/L HISTORICAL [...] mg/dl HISTORICAL RESULTS Plasma 03/02/2015 8:01 AM ROLLING UP MACHINE OPERATOR us Farrukh Jiménez MD LAB BLOOD ORDERABLES Final Result HISTORICAL RESULTS * (ABNORMAL) Plasma lipid panel (03/02/2015 8:01 AM ROLLING UP MACHINE OPERATOR) Cholesterol 111(L) 140 - 199 mg/dl HISTORICAL [...] HISTO RICAL RESULTS Plasma 03/02/2015 8:01 AM ROLLING UP MACHINE OPERATOR Result [facility] Farrukh Jiménez MD LAB BLOOD ORDERABLES Final Result HISTORICAL RESULTS * Plasma aspartate transaminase (AST) (03/02/2015 8:01 AM ROLLING UP MACHINE OPERATOR) AST 28 15 - 41 IUnits/L HISTORICAL RESULTS Plasma 03/02/2015 8:01 AM ROLLING UP MACHINE OPERATOR Result [facility] Farrukh Jiménez MD LAB BLOOD ORDERABLES Final Result Performing Organization Address City/State/[facility] Co de Phone Number HISTORICAL RESULTS * DISCHARGE LABORATORY CUMULATIVE REPORT (03/02/2015) Narrative 03/02/2015 Ordered by an unspecified provider. Result [facility] Historical Provider LAB BLOOD ORDERABLES Anya l Result * Cardiac Catheterization (03/02/2015 12:00 AM ROLLING UP MACHINE OPERATOR) Anatomical Region Laterality Modality X-Ray Angiograph y Narrative 03/02/2015 12:00 AM ROLLING UP MACHINE OPERATOR Ordered by an unspecified provider. Procedure Note Provider, MD Migue - 04/18/2018 Ordered by an unspecified provider. Result [facility] Historical Provider CV CARDIAC CATH PROCEDURE S Final Result * CARDIAC CATH DIAGRAM (03/02/2015) Anatomical Region Laterality Modality X-Ray Angiograph y Narrative 03/02/2015 Ordered by an unspecified provider. Result [facility] Historical Provider CV CARDIAC CATH PROCEDURE S Final Result documented in this encounter Visit Diagnoses Diagnosis Atherosclerotic heart disease of [place] coronary artery without angina pectoris Abnormal result of other cardiovascular function study documented in this encounter Care Teams Medical Records Field Technician Relationship Specialty Start Date End Date Rickey Do MD PCP - General 11/24/08 12/02/15 documented as of this encounter
--- OUTSIDE RECORDS SUMMARY | 2024-02-10 05:44 | XMS_ITS | Encounter Summary ---
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, without long-term current use of insulin (HCC) Procedures [facility]; BLE; Yes Xena Valencia NP Phone: tel: fax: Referral ID Status Reason Start Date Expiration Date Visits Re quested Visits Authorized [id number] Closed 08/18/2016 02/14/2017 1 1 * MRI/CAT/PET Scan (Routine) - Closed Specialty Diagnoses / Procedures Referred By Jp buckner Referred To Contact Radiology Diagnoses Renal cyst, acquired, right Procedures CT Abdomen Pelvis W Contrast Xena Valencia NP Phone: tel: fax: Referral ID Status Reason Start Date Expiration Date Visits Re quested Visits Authorized [id number] Closed 08/18/2016 02/14/2017 1 1 Reason for Visit * Reason Comments Follow-up kidney concerns Encounter Details Date Type Department Care Team (Jamie matta Contact Info) Description 08/18/2016 9:15 AM CDT Office Visit 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 Benign hypertension, endocrine Assessment & Plan: Hypertension is improving with treatment. Continue current treatment regimen. Dietary sodium restriction. Weight loss. Regular aerobic exercise. Continue current medications. Blood pressure will be reassessed in 3 months. 3. 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 2 diabetes mellitus ([facility]) - Lipid panel; Future 4. Type 2 diabetes mellitus with other neurologic complication, without long- term current use of insulin ([facility]) Assessment & Plan: Diabetes [...] reflex to microscopic and culture; Future - [facility]; BLE; Yes; Future 5. DDD (degenerative disc disease), cervical - [facility]; BLE; Yes; Future 6. Renal cyst, acquired, [...] ct scan Encourage lose weight Orders: - [facility]; BLE; Yes; Future 8. 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 CT Abd/Pel W ?33037 HISTORY: renal cyst. ??Right flank pain. TECHNIQUE: Helically acquired axial images were obtained from the dome of the diaphragm to the pubic symphysis. CONTRAST: 100 mL Optiray 320, Oral contrast. COMPARISON: 12/19/2013 from [facility]. FINDINGS: Mild fatty infiltration of the [...] ??ANMOL DO Requesting: ??XENA VALENCIA Requesting Fax: ??[phone] Attending Fax: ??[phone] Attending ID: ??[id number] Requesting ID: ??[id number] Report To 1 ID: ??[id number] Report To 1 Name: ??ANMOL DO Report To 1 FAX: ??[phone] NextGen Order #: ??[id number] Procedure Note Miscellaneous, Not In File / Provider, MD Migue - 09/07/2016 CT Abd/Pel W 23254 Acc#: [id number] DATE OF EXAM: Sep [address] Abd/Pel W 77185 HISTORY: renal cyst. Right flank pain. TECHNIQUE: Helically acquired axial images were obtained from the dome of the diaphragm to the pubic symphysis. CONTRAST: 100 mL Optiray 320, Oral contrast. COMPARISON: 12/19/2013 from [facility]. FINDINGS: Mild fatty infiltration of the [...] on: Sep 05 2016 9:36A Transcribed by: [facility] On: Sep 05 2016 9:34A Approved Electronically by: NATALIA Ruiz, DR LEVY on: Sep 05 2016 9:34A Ordering DR: XENA VALENCIA Attending DR: ANMOL DO Attending: ANMOL DO Requesting: XENA VALENCIA Requesting Attending Attending ID: [id number] Requesting ID: [id number] Report To 1 ID: [id number] Report To 1 Name: LUDMILA ANMOL Report To 1 FAX: [phone] NextGen Order #: [id number] us Xena Valencia POULTRY FARMER EGG IMG CT PROCEDURES Fi nal Result * XR Spine Lumbar 2 or 3 Views (09/05/2016 12:39 PM CDT) Anatomical Region Laterality Modality Spine N/A Radiographic Reena ging 09/05/2016 12:3 9 PM CDT Narrative 09/05/2016 12:39 PM CDT XR Lumbar Spine 2-3 Views [id number] ??Acc#: ??[id number] DATE OF EXAM: ??Sep 05 2016 ?? EXAM: XR Lumbar Spine 2-3 Views 88835 AP, lateral, and L5-S1 views HISTORY: peripheral neuropathy. COMPARISON: None FINDINGS: Five cyw-imd-ramuqxr lumbar vertebrae are seen. No acute fracture, [...] ??ANMOL DO Requesting: ??XENA VALENCIA Requesting Fax: ??[phone] Attending Fax: ??[phone] Attending ID: ??[id number] Requesting ID: ??[id number] Report To 1 ID: ??[id number] Report To 1 Name: ??ANMOL DO Report To 1 FAX: ??[phone] NextGen Order #: ??[id number] Procedure Note Miscellaneous, Not In File / Provider, MD Migue - 09/05/2016 XR Lumbar Spine 2-3 Views [id number] Acc#: [id number] DATE OF EXAM: Sep 05 2016 EXAM: XR Lumbar Spine 2-3 Views 50724 AP, lateral, and L5-S1 views HISTORY: peripheral neuropathy. COMPARISON: None FINDINGS: Five bgp-bwp-pzwfmpl lumbar vertebrae are seen. No acute fracture, [...] Requesting: XENA VALENCIA Requesting Attending Attending ID: [id number] Requesting ID: [id number] Report To 1 ID: [id number] Report To 1 Name: ANMOL DO Report To 1 FAX: [phone] NextGen Order #: [id number] us Xena Valencia POULTRY FARMER EGG IMG XR PROCEDURES Fi nal Result * XR Spine Cervical Complete 4 Or 5 Vw (09/05/2016 12:39 PM CDT) Anatomical Region Laterality Modality Spine N/A Radiographic Reena ging 09/05/2016 12:3 9 PM CDT Narrative 09/05/2016 12:39 PM CDT XR Cervical Spine Routine 4 View ??Acc#: ??[id number] DATE OF EXAM: ??Sep 05 2016 ?? [...] ??ANMOL DO Requesting: ??XENA VALENCIA Requesting Fax: ??[phone] Attending Fax: ??[phone] Attending ID: ??[id number] Requesting ID: ??[id number] Report To 1 ID: ??[id number] Report To 1 Name: ??ANMOL DO Report To 1 FAX: ??[phone] NextGen Order #: ??[id number] Procedure Note Miscellaneous, Not In File / Provider, MD Migue - 09/05/2016 XR Cervical Spine Routine 4 View Acc#: [id number] DATE OF EXAM: Sep 05 2016 EXAM: [...] on: Sep 05 2016 7:57A Transcribed by: [facility] On: Sep 05 2016 7:55A Approved Electronically by: SHANE DECKER M.D. on: Sep 05 2016 7:55A Ordering DR: XENA VALENCIA Attending DR: ANMOL DO Attending: ANMOL DO Requesting: XENA VALENCIA Requesting Attending Attending ID: [id number] Requesting ID: [id number] Report To 1 ID: [id number] Report To 1 Name: ANMOL DO Report To 1 FAX: [phone] NextGen Order #: [id number] us Xena Valencia POULTRY FARMER EGG IMG XR PROCEDURES Fi nal Result documented [...] 08/18/2016 documented in this encounter Care Teams Correspondent Relationship Specialty Start Date End Date Anmol Do MD PCP - General 05/20/16 11/08/20 documented as of this encounter
--- OUTSIDE RECORDS SUMMARY | 2024-02-10 05:44 | XMS_ITS | Encounter Summary ---
Author Organization [facility] Facility Care Team Providers Care Pipe Connector Name Role Phone Rickey Do MD Primary Care Provider Encounter Details Date Type Department Care Team (Late st Contact Info) Description 02/28/2014 - 02/28/2014 11:59 PM PRECONSTRUCTION MANAGER Hospital Encounter [facility] CL[facility] Mary Montelongo MD [address] [facility] [address] [place] [address] Other diseases of lung Social History Tobacco Use Types Packs/Day Years Used Date Smoking Tobacco: Never Assessed Sex and Gender Information Value Date Recorded Sex Assigned at Not on file Legal Sex Male 11:37 AM PRECONSTRUCTION MANAGER Gender Identity Not on file Sexual [...] Comments CHEST RADIOGRAPHY, FRONTAL (AP), LATERAL Routine 02/28/2014 9:55 AM PRECONSTRUCTION MANAGER documented in this encounter Results * CHEST RADIOGRAPHY, FRONTAL (AP), LATERAL (02/28/2014 9:55 AM PRECONSTRUCTION MANAGER) Anatomical Region Laterality Modality N/A Radiographic Reena ging 02/28/2014 9:55 AM PRECONSTRUCTION MANAGER Narrative 02/28/2014 10:39 AM PRECONSTRUCTION MANAGER Sara FORD M.D. FINAL REPORT The radiology attending physician has personally reviewed this study, and has reviewed and/or edited this written report and agrees with it. ACC# ??Date Time ??Exam [id number] Feb 28, 2014 09:55:00 13611 Chest 2 views Frontl & Lat EXAMINATION: ?? Chest 2 views IMPRESSION: ?Comparison to 08/30/2012. Lungs are clear without focal pneumonic consolidation, effusion, or pneumothorax. Heart size and mediastinal contours are normal. Requested By: MARY MONTELONGO M.D. Dictated By: ?? ADÁN DANIELSON M.D. ??on Feb ??2014 10:38A This document has been electronically signed by: NITA WATSON M.D. on Feb ??2014 10:39A Procedure Note Provider, MD Migue - 06/16/2016 Sara FORD M.D. FINAL REPORT The radiology attending physician has personally reviewed this study, and has reviewed and/or edited this written report and agrees with it. ACC# Date Time Exam [id number] Feb 28, 2014 09:55:00 56329 Chest 2 views Frontl & Lat EXAMINATION: Chest 2 views IMPRESSION: Comparison to 08/30/2012. Lungs are clear without focal pneumonic consolidation, effusion, or pneumothorax. Heart size and mediastinal contours are normal. Requested By: MARY MONTELONGO M.D. Dictated By: ADÁN DANIELSON M.D. on Feb 28 2014 10:38A This document has been electronically signed by: NITA WATSON M.D. on Feb 28 2014 10:39A us Historical Provider MD MCCURDY XR PROCEDURES Final R esult documented in this encounter Visit Diagnoses Diagnosis Other diseases of lung documented in this encounter Care Teams Pipe Connector Relationship Specialty Start Date End Date Rickey Do MD PCP - General 11/24/08 12/02/15 documented as of this encounter
--- OUTSIDE RECORDS SUMMARY | 2024-02-10 05:44 | XMS_ITS | Encounter Summary ---
Author Organization [facility] Address [address] [place] [address] Care Team Providers Care Teaching Music Lessons Name Role Phone Rickey Do MD Primary Care Provider [phone] Reason for Visit * Reason Onset Date Comments Dr. Do-Medical Question 08/25/2016 Encounter Details Date Type Department Care Team (Late st Contact Info) Description 08/25/2016 Telephone [facility] [address] [place] [address] Rickey Do MD [address] [place] [id number] Dr. 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
--- OUTSIDE RECORDS SUMMARY | 2024-02-10 05:44 | XMS_ITS | Encounter Summary ---
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
--- OUTSIDE RECORDS SUMMARY | 2024-02-10 05:44 | XMS_ITS | Encounter Summary ---
Author Organization [facility] Address [address] [place] [address] Care Team Providers Care Cook Apprentice Pastry Name Role Phone Anmol Do MD Primary Care Provider Encounter Details Date Type Department Care Team (Late st Contact Info) Description 02/23/2015 7:05 AM POSTAL DELIVERY OFFICER - 02/23/2015 11:59 PM POSTAL DELIVERY OFFICER Hospital Encounter [facility] CLINCONV Anmol Do MD [address] [place] [address] Takotsubo syndrome Social History Tobacco Use Types Packs/Day Years Used Date Smoking Tobacco: Former Cigarettes Q uit: 02/20/1985 Comments:Smoking History Pac ks/day: 1 Packs Alcohol Use Standard Drinks/Week Comments Yes 0 (1 standard drink = 0.6 oz pur e alcohol) Sex and Gender Information Value Date Recorded Sex Assigned at Not on file Legal Sex Male 11:37 AM POSTAL DELIVERY OFFICER Gender Identity Not on file Sexual [...] TEST ONLY, EXERCISE Routine 02/23/2015 12:27 PM POSTAL DELIVERY OFFICER NM MPI SPECT (REST AND/OR STRESS) MULTIPLE STUDIES Routine 02/23/2015 10:50 AM POSTAL DELIVERY OFFICER documented in this encounter Results * Stress Test Only, Exercise (02/23/2015 12:27 PM POSTAL DELIVERY OFFICER) Anatomical Region Laterality Modality Other 02/23/2015 12:2 7 PM POSTAL DELIVERY OFFICER Narrative 03/03/2015 7:53 AM POSTAL DELIVERY OFFICER STRESS TEST ??Acc#: ??[id number] STRESS TEST ??Acc#: ??[id number] DATE OF EXAM: ??Feb ??2015 CLINICAL HISTORY: [...] Fax: ??-- Attending Fax: ??-- Attending ID: ??[id number] Requesting ID: ??[id number] Report To 1 ID: ??[id number] Report To 1 Name: ??ANMOL DO Report To 1 FAX: ??-- NextGen Order #: Procedure Note Provider, MD Migue - 06/21/2016 STRESS TEST Acc#: [id number] STRESS TEST Acc#: [id number] DATE OF EXAM: Feb 23 2015 CLINICAL [...] Fax: -- Attending Fax: -- Attending ID: [id number] Requesting ID: [id number] Report To 1 ID: [id number] Report To 1 Name: ANMOL DO Report To 1 FAX: -- NextGen Order #: us Historical Provider CV STRESS PROCEDURES Anya l Result * NM MPI Spect (Rest And Stress) Multiple Studies (02/23/2015 10:50 AM POSTAL DELIVERY OFFICER) Anatomical Region Laterality Modality Body N/A Nuclear Medicine 02/23/2015 10:5 0 AM POSTAL DELIVERY OFFICER Narrative 02/23/2015 3:19 PM POSTAL DELIVERY OFFICER MR KAILYN Myocard Perf Rest/Stress ??Acc#: ??[id number] DATE OF EXAM: ??Feb ??2015 CLINICAL HISTORY: [...] Fax: ??-- Attending Fax: ??-- Attending ID: ??[id number] Requesting ID: ??[id number] Report To 1 ID: ??[id number] Report To 1 Name: ??ANMOL DO Report To 1 FAX: ??-- NextGen Order #: Procedure Note Provider, MD Migue - 06/16/2016 MR AVINA Myocard Perf Rest/Stress Acc#: [id number] DATE OF EXAM: Feb 23 2015 CLINICAL [...] Fax: -- Attending Fax: -- Attending ID: [id number] Requesting ID: [id number] Report To 1 ID: [id number] Report To 1 Name: ANMOL DO Report To 1 FAX: -- NextGen Order #: us Historical Provider MD CALLI AVINA PROCEDURES Final R esult documented in this encounter Visit Diagnoses Diagnosis Takotsubo syndrome documented in this encounter Care Teams Cook Apprentice Pastry Relationship Specialty Start Date End Date Anmol Do MD PCP - General 11/24/08 12/02/15 documented as of this encounter
--- OUTSIDE RECORDS SUMMARY | 2024-02-10 05:44 | XMS_ITS | Encounter Summary ---
Author Organization [facility] Address [address] [address] Care Team Providers Care Water Pollution Scientist Name Role Phone Rickey Do MD Primary Care Provider Encounter Details Date Type Department Care Team (Late st Contact Info) Description 08/18/2016 Orders Only [facility] [address] [place] [phone] Rickey Do MD [address] [facility] [place] [id number] Social History Tobacco Use Types Packs/Day Years Used Date Smoking Tobacco: Former Cigarettes Q uit: 02/20/1985 Comments:Smoking History Pac ks/day: 1 Packs Alcohol Use Standard Drinks/Week Comments Yes 0 (1 standard drink = 0.6 oz pur e alcohol) Sex and Gender Information Value Date Recorded Sex Assigned at Not on file 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 Pre-diabetes: 5.7 - 6.4 ? Diabetes: >6.4 ? Glycemic control for adults with diabetes: <7.0 08/18/2016 08/18/2016 Narrative [facility] - 08/19/2016 11:15 AM CDT Performed at: ?? - [facility] [address] ??[id number] Sander Hand: Woodrow Michel PhD, Phone: ??[phone] Rickey Do MD LAB BLOOD ORDERABLES Final Res ult Performing Organization Address [facility] de Phone Number [facility] [...] AM CDT Performed at: ??01 - [facility] [address], [place], [place] ??[id number] Sander Hand: Woodrow Michel PhD, Phone: ??[phone] us Rickey Do MD LAB BLOOD ORDERABLES [...] AM CDT Performed at: ?? - [facility] [address], [place], [place] ??[id number] Sander Hand: Woodrow Michel PhD, Phone: ??[phone] us Rickey Do MD LAB BLOOD ORDERABLES [...] AM CDT Performed at: ?? - [facility] [address] ??[id number] Sander Hand: Woodrow Michel PhD, Phone: ??[phone] us Rickey Do MD LAB BLOOD ORDERABLES Final Res ult [facility] - 01 documented in this encounter Visit Diagnoses Not on filedocumented in this encounter Care Teams Water Pollution Scientist Relationship Specialty Start Date End Date Rickey Do MD PCP - General 05/20/16 11/08/20 documented as of this encounter
--- OUTSIDE RECORDS SUMMARY | 2024-02-10 05:44 | XMS_ITS | Encounter Summary ---
Author Organization [facility] Facility Care Team Providers Care Shipyard Painting Supervisor Name Role Phone Rickey Do MD Primary Care Provider [phone] Encounter Details Date Type Department Care Team (Latest Contact Info) Description 07/30/2013 11:09 AM CDT Hospital Encounter [facility] CLINCONV Xena Valencia, TYPE BAR AND SEGMENT ASSEMBLER [address] [facility] [place] [address] Degeneration of cervical intervertebral disc; Cervical spondylosis without myelopathy Social History Tobacco Use Types Packs/Day Years Used Date Smoking Tobacco: Never Assessed Sex and Gender Information Value Date Recorded Sex Assigned at Not on file Legal Sex Male 11:37 AM TAR AND AMMONIA PUMP OPERATOR Gender Identity Not on file [...] M.D. FINAL REPORT ACC# ??Date Time ??Exam [id number] Jul 30, 2013 11:38:00 23528 Spine Cervical 4-5 views EXAMINATION: ?Cervical spine [...] M.D. FINAL REPORT ACC# Date Time Exam [id number] Jul 30, 2013 11:38:00 79421 Spine Cervical 4-5 views EXAMINATION: Cervical spine [...] C6-C7 neuroforaminal narrowing. Requested By: XENA VALENCIA [facility] Dictated By: LATASHA POTTER M.D. on Jul 30 2013 12:29P This document has been electronically signed by: LATASHA POTTER M.D. on Jul 30 2013 12:29P Historical Provider IMTitus XR PROCEDURES Final R esult documented in this encounter Visit Diagnoses Diagnosis Degeneration of cervical intervertebral disc Cervical spondylosis without myelopathy documented in this encounter Care Teams Shipyard Painting Supervisor Relationship Specialty Start Date End Date Rickey Do MD PCP - General 11/24/08 12/02/15 documented as of this encounter
--- OUTSIDE RECORDS SUMMARY | 2024-02-10 05:44 | XMS_ITS | Encounter Summary ---
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
--- OUTSIDE RECORDS SUMMARY | 2024-02-10 05:44 | XMS_ITS | Encounter Summary ---
Author Organization [facility] Facility Care Team Providers Care Support Manager Name Role Phone Rickey Do MD Primary Care Provider Encounter Details Date Type Department Care Team (Latest Contact Info) Description 09/06/2013 10:25 AM CDT Hospital Encounter [facility] CLINCONV Xena Valencia, SHREDDED FILLER CUTTER OPERATOR [address] [facility] [place] [address] Brachial neuritis; Degeneration of cervical intervertebral disc; Displacement of cervical intervertebral disc without myelopathy; Cervical spondylosis without myelopathy; Spinal stenosis in cervical region Social History Tobacco Use Types Packs/Day Years Used Date Smoking Tobacco: Never Assessed Sex and Gender Information Value Date Recorded Sex Assigned at Not on file Legal Sex Male 11:37 AM 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 ACC# ??Date Time ??Exam [id number] Sep 06, 2013 11:40:00 [id number] MRI Cervical Spine wo cont EXAMINATION: ?? [...] uncovertebral arthropathy. ??There is ??moderate right and miyw-lz-hxqtnhtu left neural foraminal narrowing. There is mild [...] this written report and agrees with it. [facility]# Date Time Exam [id number] Sep 06, 2013 11:40:00 60442 MRI Cervical Spine wo cont EXAMINATION: Magnetic [...] uncovertebral arthropathy. There is moderate right and tozi-kt-wtepdlai left neural foraminal narrowing. There is mild [...] region documented in this encounter Care Teams Support Manager Relationship Specialty Start Date End Date Rickey Do MD PCP - General 11/24/08 12/02/15 documented as of this encounter
--- OUTSIDE RECORDS SUMMARY | 2024-02-10 05:44 | XMS_ITS | Encounter Summary ---
Author Organization [facility] Facility Care Team Providers Care Underwater Welder Name Role Phone Anmol Do MD Primary Care Provider [phone] Encounter Details Date Type Department Care Team (Late st Contact Info) Description 12/19/2013 8:09 AM CDT - 12/19/2013 11:59 PM CDT Hospital Encounter [facility] Anmol Do MD [address] [place] [address] Xena Valencia, TRAINS SERVICE CONDUCTOR [address] [facility] [place] [address] Abdominal pain, right upper quadrant; Fitting and adjustment of vascular catheter; Diverticulosis of colon; Hypertrophy of prostate without urinary obstruction and other lower urinary tract symptoms (LUTS); Enlarged lymph nodes Social History Tobacco Use Types Packs/Day Years Used Date Smoking Tobacco: Never Assessed Sex and Gender Information Value Date Recorded Sex Assigned at Not on file 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 ACC# ??Date Time ??Exam [id number] Dec 19, 2013 08:58:[id number] Abd & Pelvis w EXAMINATION: ?? [...] ORTIZ M.D. on Dec 19 2013 10:57A [id number] Procedure Note Provider, MD Migue - 06/16/2016 WHITLEY ORTIZ M.D. ANMOL GARDNER M.D. FINAL REPORT The radiology attending physician has personally reviewed this study, and has reviewed and/or edited this written report and agrees with it. ACC# Date Time Exam [id number] Dec 19, 2013 08:58:[id number] Abd & Pelvis w EXAMINATION: CT [...] ORTIZ M.D. on Dec 19 2013 10:57A [id number] Historical Provider MD MCCURDY CT PROCEDURES Final R esult * (ABNORMAL) Blood point of care panel (12/19/2013 8:50 AM CDT) Creatinine, bld 1.5(H) 0.6 - 1.3 mg/dl HISTORICAL RESULTS Comment: Creatinine < 1.5 mg/dL and stable receive IV contrast. Creatnine 1.5 - 1.9 mg/dL and stable use Visipaque IV contrast. Blood specimen (specimen) 12/19/2013 8:50 AM CDT Xena Valencia TRAINS SERVICE CONDUCTOR LAB BLOOD ORDERABLES Final Result HISTORICAL RESULTS * (ABNORMAL) Blood point of care panel (12/19/2013 8:50 AM CDT) Creatinine, bld 1.5(H) 0.6 - 1.3 mg/dl HISTORICAL RESULTS Comment: Creatinine < 1.5 mg/dL and stable receive IV contrast. Creatnine 1.5 - 1.9 mg/dL and stable use Visipaque IV contrast. Blood specimen (specimen) 12/19/2013 8:50 AM CDT Xena Valencia TRAINS SERVICE CONDUCTOR LAB BLOOD ORDERABLES Final Result HISTORICAL RESULTS [...] nodes documented in this encounter Care Teams Underwater Welder Relationship Specialty Start Date End Date Anmol Do MD PCP - General 11/24/08 12/02/15 documented as of this encounter
--- OUTSIDE RECORDS SUMMARY | 2024-02-10 05:44 | XMS_ITS | Encounter Summary ---
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
--- OUTSIDE RECORDS SUMMARY | 2024-02-10 05:45 | XMS_ITS | Encounter Summary ---
Author Organization [facility] Facility Care Team Providers Care Manufacturing Support Engineer Name Role Phone Rickey Do MD Primary Care Provider [phone] Encounter Details Date Type Department Care Team (Late st Contact Info) Description 08/30/2012 10:43 AM CDT Hospital Encounter [facility] Xena Valencia, AGRICULTURAL ENGINEER [address] [facility] [place] [address] Cough Social History Tobacco Use Types Packs/Day Years Used Date Smoking Tobacco: Never Assessed Sex and Gender Information Value Date Recorded Sex Assigned at Not on file 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 FINAL REPORT ACC# ??Date Time ??Exam [id number] Aug 30, 2012 10:56:00 04042 Chest 2 views Frontl & Lat EXAMINATION: [...] M.D. FINAL REPORT ACC# Date Time Exam [id number] Aug 30, 2012 10:56:00 74532 Chest 2 views Frontl & Lat EXAMINATION: [...] Cough documented in this encounter Care Teams Manufacturing Support Engineer Relationship Specialty Start Date End Date Rickey Do MD PCP - General 11/24/08 12/02/15 documented as of this encounter
--- OUTSIDE RECORDS SUMMARY | 2024-02-10 05:45 | XMS_ITS | Encounter Summary ---
Author Organization [facility] Facility Care Team Providers Care Supervisor Telephone Clerks Name Role Phone Rickey Do MD Primary Care Provider [phone] Encounter Details Date Type Department Care Team (Late st Contact Info) Description 12/12/2011 12:09 PM CDT Hospital Encounter [facility] Xena Valencia, APARTMENT HOUSE MANAGER [address] [facility] [place] [address] Abdominal pain, right upper quadrant Social History Tobacco Use Types Packs/Day Years Used Date Smoking Tobacco: Never Assessed Sex and Gender Information Value Date Recorded Sex Assigned at Not on file Legal Sex Male 11:37 AM CURATOR OF 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
--- OUTSIDE RECORDS SUMMARY | 2024-02-10 05:45 | XMS_ITS | Encounter Summary ---
Author Organization [facility] Facility Care Team Providers Care Assistant Director Name Role Phone Rickey Do MD Primary Care Provider [phone] Encounter Details Date Type Department Care Team (Late st Contact Info) Description 02/15/2012 10:39 AM PRINTED CIRCUIT BOARDS ROUTER Hospital Encounter [facility] Xena Valencia, SCHOOL COORDINATOR [address] [facility] [address] Type 2 or unspecified type diabetes mellitus, uncontrolled Social History Tobacco Use Types Packs/Day Years Used Date Smoking Tobacco: Never Assessed Sex and Gender Information Value Date Recorded Sex Assigned at Not on file Legal Sex Male 11:37 AM PRINTED CIRCUIT BOARDS ROUTER Gender Identity Not on file Sexual Orientation [...] uncontrolled documented in this encounter Care Teams Assistant Director Relationship Specialty Start Date End Date Rickey Do MD PCP - General 11/24/08 12/02/15 documented as of this encounter
--- OUTSIDE RECORDS SUMMARY | 2024-02-10 05:45 | XMS_ITS | Encounter Summary ---
Author Organization [facility] Facility Care Team Providers Care Promotions Coordinator Name Role Phone Rickey Do MD Primary Care Provider [phone] Encounter Details Date Type Department Care Team (Late st Contact Info) Description 06/30/2011 4:22 PM CDT Hospital Encounter [facility] Xena Valencia, ACCOUNT MANAGEMENT ASSISTANT [address] [facility] [address] Dysuria Social History Tobacco Use Types Packs/Day Years Used Date Smoking Tobacco: Never Assessed Sex and Gender Information Value Date Recorded Sex Assigned at Not on file 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
--- OUTSIDE RECORDS SUMMARY | 2024-02-10 05:45 | XMS_ITS | Encounter Summary ---
Author Organization [facility] Facility Care Team Providers Care Community Support Professional Name Role Phone Rickey Do MD Primary Care Provider [phone] Encounter Details Date Type Department Care Team (Late st Contact Info) Description 11/29/2011 11:31 AM CDT Hospital Encounter [facility] Xena Valencia, OFFICE ADMINISTRATIVE ASSISTANT [address] [facility] [place] [address] Pain in joint, lower leg; Effusion of lower leg joint Social History Tobacco Use Types Packs/Day Years Used Date Smoking Tobacco: Never Assessed Sex and Gender Information Value Date Recorded Sex Assigned at Not on file 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
--- OUTSIDE RECORDS SUMMARY | 2024-02-10 05:45 | XMS_ITS | Encounter Summary ---
Author Organization [facility] Facility Care Team Providers Care Cnc Field Service Engineer Name Role Phone Rickey Do MD Primary Care Provider [phone] Encounter Details Date Type Department Care Team (Latest Contact Info) Description 03/02/2009 10:37 AM HOME HEALTH CARE WORKER Hospital Encounter [facility] Rickey Do MD [address] [place] [address] Routine general medical examination at a health care facility Social History Tobacco Use Types Packs/Day Years Used Date Smoking Tobacco: Never Assessed Sex and Gender Information Value Date Recorded Sex Assigned at Not on file Legal Sex Male 11:37 AM HOME HEALTH CARE WORKER Gender Identity Not on file Sexual [...] facility documented in this encounter Care Teams Cnc Field Service Engineer Relationship Specialty Start Date End Date Rickey Do MD PCP - General 11/24/08 12/02/15 documented as of this encounter
--- OUTSIDE RECORDS SUMMARY | 2024-02-10 05:45 | XMS_ITS | Encounter Summary ---
Author Organization [facility] Facility Care Team Providers Care Payroll And Benefits Specialist Name Role Phone Rickey Do MD Primary Care Provider Encounter Details Date Type Department Care Team (Latest Contact Info) Description 10/01/2012 10:43 AM CDT Hospital Encounter [facility] Rickey Do MD [address] [place] [address] Type 2 or unspecified type diabetes mellitus Social History Tobacco Use Types Packs/Day Years Used Date Smoking Tobacco: Never Assessed Sex and Gender Information Value Date Recorded Sex Assigned at Not on file Legal Sex Male 11:37 AM HAND SAMPLE MAKER Gender Identity Not on file Sexual [...] ORDERABLES Final Res ult Performing Organization Address City/[facility]/ZIP Co de Phone Number HISTORICAL RESULTS * (ABNORMAL) Blood hemoglobin A1C (10/01/2012 5:32 AM CDT) Pathologist [facility] Glycated hemoglobin 6.4(H) 4.0 - 6.0 % HISTORICAL RESULTS Blood specimen (specimen) 10/01/2012 5:32 AM CDT Narrative HISTORICAL RESULTS - 10/01/2012 2:15 PM CDT Test performed at [facility], ??[facility] [facility], [facility], [address] [place] Rickey Do MD LAB BLOOD ORDERABLES Final Res ult Performing Organization Address City/[facility]/ZIP Co de Phone Number HISTORICAL RESULTS * Urine Microbiology (10/01/2012 12:00 AM CDT) 10/01/2012 12:0 0 AM CDT Narrative HISTORICAL RESULTS - 10/03/2012 4:28 PM CDT ?[facility] Microbiology ? [address] [facility] ??[place], [place] ??[address] ? Tele: ?Yahaira Lopez M.D. - Diamond Broker ?? Vianey Sanders - Laboratory ? Working Foreman ?? Patient: AYDEN SANTOS ? Admission #: ??[id number] ?? : 1945 ?Location:[facility] [place] ?? [...] Culture Result ?No Growth ?? Performed at [facility], [address] [place] [address], [place], [place], [place] ?? [place], [address] = = = = = = = = = = = = = = = = = = = = = = = = = = = = = = = = = = = = = ? Physician: ?[facility] Microbiology Report-[employer]in[employer] ? us Historical Provider LAB MICROBIOLOGY - GENERA L ORDERABLES Final Result HISTORICAL RESULTS * DISCHARGE LABORATORY CUMULATIVE REPORT (10/01/2012) Narrative 10/01/2012 Ordered by an unspecified provider. us Historical Provider LAB BLOOD ORDERABLES Anya l Result documented in this encounter Visit Diagnoses Diagnosis Type 2 or unspecified type diabetes mellitus documented in this encounter Care Teams Payroll And Benefits Specialist Relationship Specialty Start Date End Date Rickey Do MD PCP - General 11/24/08 12/02/15 documented as of this encounter
--- OUTSIDE RECORDS SUMMARY | 2024-02-10 05:45 | XMS_ITS | Encounter Summary ---
Author Organization [facility] Facility Care Team Providers Care Service Unit Operator Oil Well Name Role Phone Rickey Do MD Primary Care Provider Encounter Details Date Type Department Care Team (Latest Contact Info) Description 06/14/2011 11:38 AM CDT Hospital Encounter [facility] Rickey Do MD [address] [place] [address] Type 2 or unspecified type diabetes mellitus Social History Tobacco Use Types Packs/Day Years Used Date Smoking Tobacco: Never Assessed Sex and Gender Information Value Date Recorded Sex Assigned at Not on file 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
--- OUTSIDE RECORDS SUMMARY | 2024-02-10 05:45 | XMS_ITS | Encounter Summary ---
Author Organization [facility] Facility Care Team Providers Care Smart Grid Engineer Name Role Phone Rickey Do MD Primary Care Provider [phone] Encounter Details Date Type Department Care Team (Latest Contact Info) Description 02/22/2010 9:57 AM SPA CONSULTANT Hospital Encounter [facility] Peter Reyna MD [address] [facility] [address] [place] [address] Benign neoplasm of colon; Diverticulosis of colon; Internal hemorrhoids; Sleep apnea; Type 2 or unspecified type diabetes mellitus Social History Tobacco Use Types Packs/Day Years Used Date Smoking Tobacco: Never Assessed Sex and Gender Information Value Date Recorded Sex Assigned at Not on file Legal Sex Male 11:37 AM SPA CONSULTANT Gender Identity Not on file Sexual [...] mellitus documented in this encounter Care Teams Smart Grid Engineer Relationship Specialty Start Date End Date Rickey Do MD PCP - General 11/24/08 12/02/15 documented as of this encounter
--- OUTSIDE RECORDS SUMMARY | 2024-02-10 05:45 | XMS_ITS | Encounter Summary ---
Author Organization 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
--- OUTSIDE RECORDS SUMMARY | 2024-02-10 05:45 | XMS_ITS | Encounter Summary ---
Author Organization [facility] Facility Care Team Providers Care Motor Route Carrier Name Role Phone Rickey Do MD Primary Care Provider [phone] Encounter Details Date Type Department Care Team (Late st Contact Info) Description 03/17/2011 11:14 AM MECHANICAL PROJECT MANAGER Hospital Encounter [facility] [address] [place] [address] Benign neoplasm of colon; Type 2 or unspecified type diabetes mellitus; Vitamin D deficiency Social History Tobacco Use Types Packs/Day Years Used Date Smoking Tobacco: Never Assessed Sex and Gender Information Value Date Recorded Sex Assigned at Not on file Legal Sex Male 11:37 AM MECHANICAL PROJECT MANAGER Gender Identity Not on file [...] deficiency documented in this encounter Care Teams Motor Route Carrier Relationship Specialty Start Date End Date Rickey Do MD PCP - General 11/24/08 12/02/15 documented as of this encounter
--- OUTSIDE RECORDS SUMMARY | 2024-02-10 05:45 | XMS_ITS | Encounter Summary ---
Author Organization [facility] Facility Care Team Providers Care Therapeutic Recreation Director Name Role Phone Anmol Do MD Primary Care Provider Encounter Details Date Type Department Care Team (Latest Contact Info) Description 03/23/2012 8:36 AM WEATHERIZATION ADMINISTRATOR Hospital Encounter [facility] Anmol Do MD [address] [place] [address] Chest pain; Other acute and subacute form of ischemic heart disease; Essential hypertension; Type 2 or unspecified type diabetes mellitus; Other and unspecified hyperlipidemia Social History Tobacco Use Types Packs/Day Years Used Date Smoking Tobacco: Never Assessed Sex and Gender Information Value Date Recorded Sex Assigned at Not on file Legal Sex Male 11:37 AM WEATHERIZATION ADMINISTRATOR Gender Identity Not on file Sexual [...] INFARCT IMAGING SPECT/CT Routine 03/23/2012 12:13 PM WEATHERIZATION ADMINISTRATOR STRESS TEST ONLY, EXERCISE Routine 03/23/2012 12:00 AM WEATHERIZATION ADMINISTRATOR documented in this encounter Results * NM Myocardial Infarction SPECT (03/23/2012 12:13 PM WEATHERIZATION ADMINISTRATOR) Anatomical Region Laterality Modality Body N/A Nuclear Medicine 03/23/2012 12:1 3 PM WEATHERIZATION ADMINISTRATOR Narrative 03/23/2012 2:20 PM WEATHERIZATION ADMINISTRATOR Sara MCCLOUD M.D. FINAL REPORT The radiology attending physician has personally reviewed this study, and has reviewed and/or edited this written report and agrees with it. ACC# ??Date Time ??Exam [id number] Mar 23, 2012 12:13:00 51084 SPECT MPI MULT EXAMINATION: ?MYOCARDIAL IMAGING (REST [...] predicted heart rate or a rate-pressure product >87949 mm Hg-beats/min.) ??Standard myocardial perfusion images were [...] agrees with it. ACC# Date Time Exam [id number] Mar 23, 2012 12:13:00 72480 SPECT MPI MULT EXAMINATION: MYOCARDIAL IMAGING (REST [...] predicted heart rate or a rate-pressure product >98218 mm Hg-beats/min.) Standard myocardial perfusion images were [...] 23 2012 2:20P Historical Provider MD MCCURDY CA PROCEDURES Final R esult * Stress Test Only, Exercise (03/23/2012 12:00 AM WEATHERIZATION ADMINISTRATOR) Anatomical Region Laterality Modality Other 03/23/2012 Narrative 03/23/2012 12:00 AM WEATHERIZATION ADMINISTRATOR Patient name: Ayden Santos Date of test: 03/23/2012 Type of Test: Treadmill Nuclear Stress [facility] #: [id number] ?Location: [facility] Referring Physician(s): Anmol Do MD Supervised/Interpreted by: [...] MD By signing this report, the attending logistics program manager certifies that he or she has personally supervised and interpreted the stress test and has reviewed and or edited and agrees with the written comments contained within the report. Procedure Note Migue Coy MD - 06/21/2016 Patient name: Ayden Santos Date of test: 03/23/2012 Type of Test: Treadmill Nuclear Stress [facility] #: [id number] Location: [facility] Referring Physician(s): Anmol Do MD Supervised/Interpreted by: [...] MD By signing this report, the attending logistics program manager certifies that he or she has personally [...] hyperlipidemia documented in this encounter Care Teams Therapeutic Recreation Director Relationship Specialty Start Date End Date Anmol Do MD PCP - General 11/24/08 12/02/15 documented as of this encounter
--- OUTSIDE RECORDS SUMMARY | 2024-02-10 05:45 | XMS_ITS | Encounter Summary ---
Author Organization [facility] Facility Care Team Providers Care Certified Pest Control Technician Name Role Phone Rickey Do MD Primary Care Provider Encounter Details Date Type Department Care Team (Latest Contact Info) Description 12/20/2011 1:59 PM CDT Hospital Encounter [facility] Rickey Do MD [address] [place] [address] Benign neoplasm of adrenal gland Social History Tobacco Use Types Packs/Day Years Used Date Smoking Tobacco: Never Assessed Sex and Gender Information Value Date Recorded Sex Assigned at Not on file Legal Sex Male 11:37 AM THERAPIST'S ASSISTANT Gender Identity Not on file Sexual [...] gland documented in this encounter Care Teams Certified Pest Control Technician Relationship Specialty Start Date End Date Rickey Do MD PCP - General 11/24/08 12/02/15 documented as of this encounter
--- OUTSIDE RECORDS SUMMARY | 2024-02-10 05:45 | XMS_ITS | Encounter Summary ---
Author Organization [facility] Facility Care Team Providers Care Mold Blower Name Role Phone Rickey Do MD Primary Care Provider [phone] Encounter Details Date Type Department Care Team (Late st Contact Info) Description 05/29/2012 11:05 AM CDT Hospital Encounter [facility] Xena Valencia, PRESSURIZATION MECHANIC [address] [facility] [place] [address] Type 2 or unspecified type diabetes mellitus, uncontrolled Social History Tobacco Use Types Packs/Day Years Used Date Smoking Tobacco: Never Assessed Sex and Gender Information Value Date Recorded Sex Assigned at Not on file Legal Sex Male 11:37 AM REGISTERED NURSES Gender Identity Not on file Sexual Orientation [...] 05/29/2012 10:4 8 AM CDT Xena Valencia PRESSURIZATION MECHANIC LAB BLOOD ORDERABLES Final Result Performing Organization Address [facility] de Phone Number HISTORICAL RESULTS * Plasma lipase (05/29/2012 10:48 AM CDT) Pathologist [facility] Lip 123 43 - 243 Units/L HISTORICAL RESULTS Plasma 05/29/2012 10:4 8 AM CDT Xena Valencia PRESSURIZATION MECHANIC LAB BLOOD ORDERABLES Final Result Performing Organization Address [facility] de Phone Number HISTORICAL RESULTS * Plasma amylase (05/29/2012 10:48 AM CDT) Pathologist [facility] [address], [address] 42 25 - 115 Units/L HISTORICAL RESULTS Plasma 05/29/2012 10:4 8 AM CDT Xena Valencia PRESSURIZATION MECHANIC LAB BLOOD ORDERABLES Final Result Performing Organization Address [facility] de Phone Number HISTORICAL RESULTS * Urinalysis [...] 05/29/2012 12:47 PM CDT Test performed at [facility], ??[facility] [facility], [place], [place], [place], [address] Xena Valencia NP LAB BLOOD ORDERABLES Final Result HISTORICAL RESULTS * DISCHARGE LABORATORY CUMULATIVE REPORT (05/29/2012) Narrative 05/29/2012 Ordered by an unspecified provider. Historical Provider LAB BLOOD ORDERABLES Anya l Result documented in this encounter Visit Diagnoses Diagnosis Type 2 or unspecified type diabetes mellitus, uncontrolled documented in this encounter Care Teams Mold Blower Relationship Specialty Start Date End Date Rickey Do MD PCP - General 11/24/08 12/02/15 documented as of this encounter
--- OUTSIDE RECORDS SUMMARY | 2024-02-10 05:45 | XMS_ITS | Encounter Summary ---
Author Organization [facility] Facility Care Team Providers Care Industrial Production Manager Name Role Phone Rickey Do MD Primary Care Provider Encounter Details Date Type Department Care Team (Latest Contact Info) Description 12/15/2011 11:56 AM CDT Hospital Encounter [facility] Rickey Do MD [address] [place] [address] Abdominal pain, right upper quadrant; Disorder of adrenal gland (HCC); Diverticulosis of colon; Enlarged lymph nodes; Nonspecific abnormal findings on radiological and other examination of abdominal area, including retroperitoneum Social History Tobacco Use Types Packs/Day Years Used Date Smoking Tobacco: Never Assessed Sex and Gender Information Value Date Recorded Sex Assigned at Not on file Legal Sex Male 11:37 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
--- OUTSIDE RECORDS SUMMARY | 2024-02-10 05:45 | XMS_ITS | Encounter Summary ---
Author Organization [facility] Facility Care Team Providers Care Service Or Work Dispatcher Name Role Phone Rickey Do MD Primary Care Provider [phone] Encounter Details Date Type Department Care Team (Late st Contact Info) Description 01/02/2012 10:18 AM [employer] Hospital Encounter [facility] Xena Valencia, [employer]GAN PIPE VOICER [address] [place] [address] Pain in thoracic spine Social History Tobacco Use Types Packs/Day Years Used Date Smoking Tobacco: Never Assessed Sex and Gender Information Value Date Recorded Sex Assigned at Not on file Legal Sex Male 11:37 AM [employer] Gender Identity Not on file Sexual Orientation [...] spine documented in this encounter Care Teams Service Or Work Dispatcher Relationship Specialty Start Date End Date Rickey Do MD PCP - General 11/24/08 12/02/15 documented as of this encounter
== END 2024-02-05 02:10 | disposition home or self-care (01) ==
PROVIDERS: Emergency Provider Student in an Organized Health Care Education/Training Program; PCP Internal Medicine
DX: R07.89 Other chest pain (principal); I10 Essential (primary) hypertension; I25.10 Atherosclerotic heart disease of native coronary artery without angina pectoris; E11.40 Type 2 diabetes mellitus with diabetic neuropathy, unspecified; E78.5 Hyperlipidemia, unspecified; N40.0 Benign prostatic hyperplasia without lower urinary tract symptoms; Z79.4 Long term (current) use of insulin; Z79.84 Long term (current) use of oral hypoglycemic drugs; Z79.899 Other long term (current) drug therapy; Z96.41 Presence of insulin pump (external) (internal); I44.0 Atrioventricular block, first degree
CPT/HCPCS: 36415; 71046; 80053; 83690; 84484; 85025; 85610; 85730; 93005; 99284; A9270